=== PATIENT | female | born 1965 | race African-American/Black ===

== ENCOUNTER 2018-01-31 01:38 | Emergency (ER) | payer MEDICAID, SELFPAY ==
[2018-01-31 01:39] VITALS: BP 132/110; PULSE 87; RESP 20; TEMP 36.1; O2SAT 100; BMI 31.0
--- NOTE | 2018-01-31 02:31 | RAD_ITS ---
STUDY: X-RAY CHEST REASON FOR EXAM: Female, 52 years old. Cough for 4 weeks. TECHNIQUE: PA and lateral views of the chest. COMPARISON: 04/14/2017. FINDINGS: The lungs are clear and expanded. There is no demonstrated pleural abnormality. Normal size heart. Normal mediastinum and matthieu. Normal visualized pulmonary arteries. Normal visualized aortic arch and descending thoracic aorta. There are diffuse degenerative changes of the visualized thoracic spine. Normal visualized ribs, clavicles, and shoulders. There is no demonstrated abnormality of the visualized soft tissue structures of the upper abdomen. RAD/Chest PA and Lateral IMPRESSION: No active pulmonary disease. Electronically Signed: Phuc Mendes MD at 3:31 EDT Tel , Service support ,
--- NOTE | 2018-01-31 03:37 | ED.VISSUMM ---
- ER Visit Summary Date of Service: 01/31/18 Chief Complaint: Multiple complaints History of Present Illness: The patient is a 52 F who presents with about 1 month of sore throat earache or sinus pressure nasal congestion chest congestion cough and green sputum. She has been on 2 rounds of antibiotics without improvement. She does have a history of asthma. She is not a smoker. She denies chest pain or shortness of breath. No fevers vomiting or diarrhea. Physical Examination: Afebrile vitals notable for blood pressure 132/110 otherwise normal TMs are clear No focal sinus tenderness to percussion Oropharynx is clear airway patent uvula midline Heart regular rate and rhythm Lungs are clear without rales rhonchi or wheezes Abdomen soft Test Results: Chest x-ray shows no active disease Emergency Department Course and Treatment: Patient has no evidence of pneumonia. Given lack of improvement with 2 rounds of antibiotics I feel this is unlikely to be a bacterial infection. We will try a course of steroid. She was advised to follow-up with her primary care physician. She understands return for new or worsening symptoms. She was discharged. Treatment Plan: [] Disposition: Discharge Impression: Bronchitis This note was generated with [employer] dictation software. It may contain incorrect words, spelling, and punctuation that were not noted in review of the chart prior to signing ED Disposition - Plan for ED Patient: Chief Complaint: Cough Referrals: Jese Zheng DO [Primary Care Provider] -
--- NOTE | 2018-01-31 03:39 | ED.DEP ---
ED Disposition - Plan for ED Patient: Chief Complaint: Cough Instructions: Acute Bronchitis Prescriptions: Prednisone [Deltasone] 60 mg PO DAILY #15 tab Referrals: Jese Zheng DO [Primary Care Provider] -
[2018-01-31 03:49] VITALS: BP 120/86; PULSE 83; RESP 18; O2SAT 96
== END 2018-01-31 03:50 | disposition home or self-care (01) ==
PROVIDERS: Emergency Provider Emergency Medicine; Family Provider Student in an Organized Health Care Education/Training Program; PCP Student in an Organized Health Care Education/Training Program
DX: J40 Bronchitis, not specified as acute or chronic (principal)
CPT/HCPCS: 71046; 99283

== ENCOUNTER 2018-07-27 10:58 | Emergency (ER) | payer MEDICAID, SELFPAY ==
[2018-07-27 10:59] VITALS: BP 159/91; PULSE 108; RESP 17; TEMP 36.7; O2SAT 98; BMI 28.1
--- NOTE | 2018-07-27 11:18 | CT_ITS ---
STUDY: CT ABDOMEN AND PELVIS WITH CONTRAST REASON FOR EXAM: Female, 52 years old. Abdominal pain started yesterday RADIATION DOSAGE (If Supplied By Facility): CTDIvol = ( 23.23 ) mGy, DLP = ( 1278.08 ) mGycm TECHNIQUE: Transaxial images were obtained from the dome of the diaphragm to the symphysis pubis without oral contrast. 100 ml of Isovue 300 contrast was administered. Sagittal and coronal images were reconstructed. Individualized dose optimization techniques were used for this CT. COMPARISON: None. FINDINGS: The visualized lung bases are unremarkable. The visualized portions of the heart are within normal limits. Normal liver. Normal gallbladder and extrahepatic biliary system. Normal spleen. Normal pancreas. Normal bilateral adrenal glands. Slight amount of perinephric stranding adjacent to the right kidney with less distinct cortical medullary junction as compared to the left. No hydronephrosis. Normal left kidney. Normal visualized stomach. No small bowel wall thickening identified. Surgical anastomosis of bowel are identified in the lower central abdomen. Close approximation of small bowel to the anterior abdominal wall suggestive of adhesions but no significant bowel dilation. No colon wall thickening. There is non-visualization of the appendix. There is diffuse atherosclerotic calcification of the abdominal aorta, without a demonstrated aneurysm. Normal inferior vena cava. Normal retroperitoneum. Normal urinary bladder. No pelvic free fluid. Uterus is surgically absent. Normal abdominal wall. There are diffuse degenerative changes of the visualized lumbar spine. Canal narrowing of the mid to lower lumbar spine noted. CT/Abdomen/Pelvis WITH Contrast IMPRESSION: 1. Mild inflammatory changes involving the right kidney (new since prior study) suggestive of pyelonephritis. Correlation with urinalysis is suggested. No hydronephrosis. 2. Interval partial small bowel resection. No bowel wall thickening or obstruction identified. Electronically Signed: Cecil Moralez MD at 13:48 EST , Service support ,
[2018-07-27] MEDS: Ondansetron 4 MG/2 ML Vial IV (11:38)
[2018-07-27] MEDS: 0.9% Normal Saline 1,000 ML 125 ML IV (11:39)
[2018-07-27] MEDS: Morphine 4 MG/ML Syringe IV (11:39)
[2018-07-27 11:54] LABS: Absolute Lymphocyte Count 2.61 X10^3/ul (0.83-4.51); Absolute Neutrophil Count 3.7 X10^3/uL (2.0-7.7); Basophil# 0.02 X10^3/uL; Basophil% 0.3 % (0-1); Eosinophil# 0.13 X10^3/uL; Eosinophils% 1.9 % (0-5); Hematocrit 37.9 % (37-47); Hemoglobin 12.8 g/dl (12.0-15.0); Lymphocyte # 2.61 X10^3/ul (4.0); Lymphocyte % 38.5 % (19-41); Mean Corp Hgb Conc 33.8 g/gl (32-36); Mean Corpuscular Hgb 29.4 pg (27.0-32.0); Mean Corpuscular Volume 86.9 fL (81-99); Mean Platelet Vol. 8.9 fl (6.2-12.0); Monocyte# 0.34 X10^3/uL; Neutrophil # 3.66 X10^3/uL (2.7-7.7); Platelet Count 400 K/mm3 (150-450); RBC Distribution Width CV 12.6 % (11.6-14.6); RBC Distribution Width SD 40.2 fl (35.1-43.9); Red Blood Count 4.36 M/mm3 (4.2-5.4); White Blood Count 6.8 K/mm3 (4.4-11.0)
[2018-07-27 11:56] LABS: POSITIVE COUNT NO; POSITIVE DIFFERENTIAL NO; POSITIVE MORPHOLOGY NO
[2018-07-27 12:14] LABS: ALB/GLOB Ratio 0.8 RATIO (0.9-2.4); AST(SGOT) 6 U/L (15-37); Alanine Aminotransfer ALT/SGPT 17 U/L (13-56); Albumin, Serum 3.4 g/dL (3.2-5.0); Alkaline Phosphatase 97 U/L (45-117); Anion Gap 8 (5-15); BUN 11 mg/dL (7-18); BUN/Creat Ratio 15.6 RATIO (10-20); Calcium,Total 8.9 mg/dL (8.5-10.1); Chloride 101 mmol/L (98-107); Creatinine, Serum 0.71 mg/dL (0.55-1.02); EST Glomerular Filtration Rate 92 mL/min (>60); Est Glom Filt Rate - Afr Amer 111 mL/min (>60); Estimated Creatinine Clearance 92.44 ml/min; Globulin 4.2 g/dL (2.2-4.2); Glucose 533 mg/dL (74-106); Potassium 4.2 mmol/L (3.5-5.1); Protein, Total 7.6 g/dL (6.4-8.2); Sodium Level 134 mmol/L (136-145)
[2018-07-27 12:16] LABS: Lactic Acid 1.4 mmol/L (0.4-2.0)
[2018-07-27 12:30] LABS: Bacteria 0 SEEN /hpf (None Seen); Mucous, Urine 0 SEEN /hpf (<or=2+); Red Blood Cells-Urine 0 SEEN /hpf (0-5); Squamous Epithelial Cells - UA 0 SEEN /hpf (5-10)
[2018-07-27 12:48] LABS: Color, Urine Straw (Yellow); Glucose, Dipstick 1000 mg/dl (Normal); Ketone-Dipstick Negative (Negative); Leukocyte Esterase-Dipstick 25 /ul (Negative); Nitrite-Dipstick Negative (Negative); Occult Blood-Urine Negative /ul (Negative); Protein-Dipstick Negative (Negative); Urine Bilirubin Dipstick Negative (Negative); Urine Clarity Clear (Clear); Urine Urobilinogen Normal (Normal); Urine pH 6.5 (5.0 - 8.0)
[2018-07-27] MEDS: HYDROmorphone 1 MG/ML Syringe IV (12:53)
[2018-07-27] MEDS: Insulin Lispro 100 UNIT/ML INSULN.PEN 10 UNIT SC (12:54)
[2018-07-27 12:59] LABS: White Blood Cells 0-5 SEEN /hpf (0-5)
--- NOTE | 2018-07-27 14:06 | EKG12_ITS ---
Test Reason : CHEST PAIN Blood Pressure : / mmHG Vent. Rate : 087 BPM Atrial Rate : 087 BPM P-R Int : 148 ms QRS Dur : 084 ms QT Int : 370 ms P-R-T Axes : 059 018 025 degrees QTc Int : 445 ms Normal sinus rhythm Normal ECG Confirmed by DIANELYS DELACRUZ, FAITH ([id number]), marketing editor LAURA HAGEN ([id number]) on 07/29/2018 9:39:28 AM Referred By: MIKKI Confirmed By:FAITH IVORY MD
[2018-07-27 14:21] LABS: Bedside Glucose 328 mg/dL (70-110)
--- NOTE | 2018-07-27 14:32 | ED.DCSUM_ITS ---
- ER Visit Summary Date of Service: 07/27/18 Chief Complaint: [Abdominal pain] History of Present Illness: The patient is a 52 F [presents to the emergency department with complaint of abdominal pain that started 4 days ago. Patient had intermittent nausea and vomiting for a week off and on. Patient states that she is concerned because she has a history of small bowel obstructions. She denies any blood in her stool or black tarry stools. Patient states that she was treated for a UTI a week ago with Macrobid and has no urinary symptoms. Patient's last bowel movement was 4 5 days ago. Patient states she had a hard stool for 5 days ago and then took some MiraLAX and ended up having small soft stool. Patient has history of asthma, diabetes, hypertension, history of hysterectomy, and colostomy with reversal. Patient had hernia repairs and fistula repair.] Physical Examination: [HEENT-PERRLA, EOMI. Cranial nerves II through XII grossly intact. TMs clear. Mucous membranes moist. No adenopathy. Cardiovascular-regular rate and rhythm without murmur or ectopy Lungs-clear to auscultation, chest wall stable without crepitus or subcu emphysema Abdomen-normoactive bowel sounds, soft. Patient has tenderness palpation mostly to the right lower quadrant with some guarding. There is no rebound, rigidity, or perineal signs. No significant distention noted. Extremities-intact ?4, normal range of motion, normal pulses, atraumatic] Test Results: CBC with differential obtained showing a 6.8, hemoglobin 12.8, hematocrit 38, platelets 400. Chemistries unremarkable. Glucose was 533. Lactate was normal at 1.4. LFTs were normal. Urinalysis was normal. CT scan of the abdomen pelvis with IV and p.o. contrast showed some mild inflammatory changes around the right kidney possibly representing pyelonephritis. There was no evidence of bowel obstruction. [] Emergency Department Course and Treatment: [Patient was made given morphine and Zofran initially and then given a milligram of Dilaudid. Just prior to discharge interview patient started complaining of some midsternal chest discomfort that she described as sharp and stabbing. Patient states that she is had this for at least 3 weeks and it just lasted a few minutes and then resolves. Patient had a EKG obtained that showed a sinus rhythm with a ventricular rate of 87 bpm with no acute ST segment changes. While in the department patient had her hyperglycemia treated with 10 units of regular insulin and her repeat blood sugar came down to 328 from 533.] Treatment Plan: [Patient will be discharged home with prescription for Zofran as well as [place] for pain. Patient also advised to follow-up with primary care physician within next 3-5 days. Patient advised to monitor blood sugars and advised to be compliant with her diabetic medications.] Disposition: [Discharged home in stable condition] Impression: [Abdominal pain-etiology uncertain Hyperglycemia Atypical chest pain] This note was generated with [employer] dictation software. It may contain incorrect words, spelling, and punctuation that were not noted in review of the chart prior to signing ED Disposition - Plan for ED Patient: Chief Complaint: Abd Pain Referrals: Jese Zheng DO [Primary Care Provider] -
--- NOTE | 2018-07-27 14:32 | ED.DEP ---
ED Disposition - Plan for ED Patient: Chief Complaint: Abd Pain Instructions: ED Abdominal Pain Unkn Cause, ED Hyperglycemia Diabetic, ED Chest Pain Atypical Unkn Cause Prescriptions: Hydrocodone Bitart/Apap 5-325 [[place] 5MG-325MG] 1 tab PO Q4H PRN PRN 2 Days #10 tab PRN Reason: Pain Ondansetron [Zofran Odt] 4 mg PO Q8H PRN PRN #10 tab PRN Reason: Nausea Referrals: Jese Zheng DO [Primary Care Provider] - 3-5 Days
[2018-07-27 15:25] VITALS: BP 128/81; PULSE 79; RESP 15; O2SAT 98
== END 2018-07-27 15:29 | disposition home or self-care (01) ==
PROVIDERS: Emergency Provider Emergency Medicine; Family Provider Student in an Organized Health Care Education/Training Program; PCP Student in an Organized Health Care Education/Training Program
DX: R10.31 Right lower quadrant pain (principal); R07.89 Other chest pain; E11.65 Type 2 diabetes mellitus with hyperglycemia; Z87.440 Personal history of urinary (tract) infections; Z72.0 Tobacco use
CPT/HCPCS: 36415; 74177; 80053; 81001; 82962; 83605; 85025; 93005; 96361; 96374; 96375; 99283; J7030; Q9967; A4216; J2405

== ENCOUNTER 2018-12-21 10:52 | Emergency (ER) | payer MEDICAID, SELFPAY ==
[2018-12-21 10:52] VITALS: BP 143/68; PULSE 121; RESP 18; TEMP 36.6; O2SAT 95; BMI 30.4
--- NOTE | 2018-12-21 11:07 | ED.VIS.GEN ---
History of Present Illness Chief Complaint: Headache Detail of Chief Complaint: Global headache, myalgias arthralgias and documented temperature of 104.0 ? Informant: Patient Onset: Days - Onset Saturday 4 days ago Context: Sudden Onset Timing: Continuous Quality: Pain with aches Location: Global headache and myalgias arthralgias Current Severity: Moderate Maximum Severity: Severe Worsened by: Movement Relieved by: Nothing Associated Symptoms: Fever to 104.0 ?F and viral-like symptoms Narrative: Patient is a middle-aged woman who presents with global headache, light sensitivity, myalgias arthralgias and documented temperature to 104.0 ?F. Onset of illness Saturday. No family members are ill. Mild nasal congestion. No rhinorrhea or postnasal drainage. No decreased hearing, ringing in her ears or ear pain. She denies cough, shortness of breath or dyspnea on exertion. She does report nausea vomiting diarrhea. Denies dysuria, frequency, urgency hematuria. She denies joint swelling. She denies rash. Prior similar symptoms: No Recent Illness/Hospitalization: No - Past Medical History (1) Asthma Status: Chronic (2) DM2 (diabetes mellitus, type 2) Status: Chronic (3) HTN (hypertension) Status: Chronic (4) Obesity (BMI 30-39.9) Status: Chronic (5) Tobacco dependence Status: Chronic Past Medical History - Allergies and Home Meds Allergies/Adverse Reactions: Allergies tramadol Allergy (Verified 12/21/18 10:56) Hives albuterol sulfate [From Proventil HFA] Adverse Reaction (Verified 12/21/18 10:56) Vomiting ammonium lactate [From Lac-Hydrin] Adverse Reaction (Verified 12/21/18 10:56) Other phentermine HCl [From Adipex-P] Adverse Reaction (Verified 12/21/18 10:56) Chest tightness Primary Care Physician: Jese Zheng DO [Primary Care Provider] - Prior records reviewed: Yes Surgical History: noncontributory, - - BL TKR, Hysterectomy, L oopherectomy, Bladder sling, 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 Lives: With Family Smoking Status: Current every day smoker Alcohol: None - Family History Maternal Family History: Reports: Cancer, Diabetes, Hypertension Paternal Family History: Reports: No pertinent history Review of Systems General: Reports: Chills, Fever, Malaise. Denies: Subjective, Sweats, Weight loss Eyes: Reports: - - Reports sensitivity to light. Denies: Visual changes - bilaterally, Blurred Vision - bilaterally, Diplopia ENT: Denies: Bilateral ear pain, Rhinorrhea, Sore throat Cardiovascular: Denies: Chest pain, Palpitations Respiratory: Denies: Dyspnea, Cough, Dyspnea on exertion Gastrointestinal: Reports: Nausea. Denies: Abdominal pain, Vomiting, Diarrhea, Constipation, Melena, Hematochezia, -, - Genitourinary: Denies: Dysuria, Hematuria, Frequency Musculoskeletal: Reports: Myalgias, Arthralgias, Neck pain, Back pain. Denies: Swelling, Extremity Pain Skin: Denies: Rash, Wounds Neurological: Reports: Headache. Denies: Weakness, Parasthesia, Numbness, -, - Endocrine: Denies: Polyuria, Polydipsia Hematologic: Denies: Easy bruising, Easy bleeding Allergy: Denies: Swelling of the mouth, Swelling of the tongue Physical Exam Vital Signs/Narrative: Vital Signs Temp Pulse Resp BP Pulse Ox 12/21/18 10:52 97.9 F 121 H 18 143/68 H 95 Inital Vital Signs reviewed: Yes General: Well nourished, Well developed, No Acute Distress, - - Feels warmer than document temperature. She informed that she had a TA temperature. Head: Normocephalic, Atraumatic Eyes: Perrl, EOMI, - - Scopic exam reveals normal cup-to-disc ratio no papilledema.. Negative for: Pale conjunctiva, Scleral icterus ENT: No rhinorrhea, TM's clear, Dry mucous membranes Neck: Supple, Nontender, No lymphadenopathy, No JVD Cardiovascular: Regular rhythm, No murmurs, Normal S1, Normal S2, Tachycardia Respiratory: No distress, CTA bilaterally, Chest nontender Abdomen: Soft, Nontender, Nondistended, Normal bowel sounds, No masses Back: Normal Inspection. Negative for: CVA tenderness, Spinal tenderness Extremities: No edema, Tenderness - Tenderness upper and lower extremities. Negative for: Edema, Calf Tenderness Skin: Normal color, No rash, No Trauma. Negative for: Cyanosis, Diaphoresis, Jaundice Neurological: Alert, Oriented x3, Cranial nerves II-XII grossly intact, Normal Strength, Normal Sensation, Normal DTR Psychological: Normal affect, Normal Mood Diagnostic/Tx/Re-eval - Medical Decision Making Patient's history and physical consistent with viral infection. Suspect headache is viral headache. Because she reports temperature to 104.0 degrees and feels warm will have nurse repeat temperature. Because she is diabetic and p.o. intake has been altered will obtain electric panel to assess sodium potassium CO2 as well as renal function. CBC was obtained. If markedly elevated may consider CT sinuses since she has tenderness over the right and left frontal sinus. There was no tenderness over the ethmoid or maxillary sinuses. Patient was informed of test results. She was informed that her blood sugar is 280. I went in the room she was talking with family. She was smiling. This is an improvement. She states she still has a headache. ED Disposition - Plan for ED Patient: Disposition: Home or Assisted Living Diagnosis: Viral cephalgia, Systemic viral illness, Hyperglycemia due to type 2 diabetes mellitus Instructions: ED Viral Syndrome, ED Hyperglycemia Diabetic Referrals: Jese Zheng DO [Primary Care Provider] - 1 Week if not improving
[2018-12-21 11:22] VITALS: TEMP 38.1
[2018-12-21] MEDS: Acetaminophen 325 MG Tablet 650 MG PO (11:25)
[2018-12-21] MEDS: Ondansetron 4 MG/2 ML Vial IV (11:25)
[2018-12-21 11:26] VITALS: TEMP 38.1
[2018-12-21] MEDS: 0.9% Normal Saline 1,000 ML 1000 ML IV (11:26)
[2018-12-21 11:29] LABS: Absolute Lymphocyte Count 1.44 X10^3/ul (0.83-4.51); Absolute Neutrophil Count 7.4 X10^3/uL (2.0-7.7); Basophil# 0.02 X10^3/uL; Basophil% 0.2 % (0-1); Differential Indicated SCAN CRITERIA MET; Eosinophil# 0.02 X10^3/uL; Eosinophils% 0.2 % (0-5); Hematocrit 35.5 % (37-47); Hemoglobin 12.3 g/dl (12.0-15.0); Lymphocyte # 1.44 X10^3/ul (4.0); Mean Corp Hgb Conc 34.6 g/gl (32-36); Mean Corpuscular Hgb 30.9 pg (27.0-32.0); Mean Corpuscular Volume 89.2 fL (81-99); Mean Platelet Vol. 9.9 fl (6.2-12.0); Monocyte# 1.36 X10^3/uL; Monocyte% 13.3 % (0-10); Neutrophil # 7.37 X10^3/uL (2.7-7.7); Neutrophil % 71.9 % (47-70); POSITIVE COUNT NO; POSITIVE DIFFERENTIAL NO; POSITIVE MORPHOLOGY YES; Platelet Count 195 K/mm3 (150-450); RBC Distribution Width SD 38.4 fl (35.1-43.9); Red Blood Count 3.98 M/mm3 (4.2-5.4); White Blood Count 10.3 K/mm3 (4.4-11.0)
[2018-12-21 11:38] LABS: Anion Gap 10 (5-15); BUN 9 mg/dL (7-18); BUN/Creat Ratio 13.4 RATIO (10-20); Chloride 101 mmol/L (98-107); Creatinine, Serum 0.67 mg/dL (0.55-1.02); EST Glomerular Filtration Rate 97 mL/min (>60); Est Glom Filt Rate - Afr Amer 118 mL/min (>60); Estimated Creatinine Clearance 96.83 ml/min; Glucose 280 mg/dL (74-106); Potassium 3.4 mmol/L (3.5-5.1); Sodium Level 135 mmol/L (136-145)
[2018-12-21 11:50] LABS: Differential Comment SCANNED
[2018-12-21 12:52] VITALS: BP 140/80; PULSE 86; RESP 18; O2SAT 95
== END 2018-12-21 12:53 | disposition home or self-care (01) ==
PROVIDERS: Emergency Provider Emergency Medicine; Family Provider Student in an Organized Health Care Education/Training Program; PCP Student in an Organized Health Care Education/Training Program
DX: R51 Headache (principal); E11.65 Type 2 diabetes mellitus with hyperglycemia; B34.9 Viral infection, unspecified; J45.909 Unspecified asthma, uncomplicated; I10 Essential (primary) hypertension; E66.9 Obesity, unspecified; F17.200 Nicotine dependence, unspecified, uncomplicated
CPT/HCPCS: 80048; 85025; 96361; 96374; 99283; J7030; A4216; J2405

== ENCOUNTER 2018-12-25 15:18 | Emergency (ER) | payer MEDICAID, SELFPAY ==
[2018-12-25 15:18] VITALS: BP 147/85; PULSE 105; RESP 18; TEMP 36.7; O2SAT 97; BMI 29.5
--- NOTE | 2018-12-25 15:55 | CT_ITS ---
HISTORY: Right lower quadrant pain, vomiting COMPARISON: 07/27/2018 TECHNIQUE: Helical CT axial images from the lung bases to the pubic symphysis with 100 ml of Isovue 300 intravenous contrast. Multiplanar reconstruction. Oral contrast was administered. A radiation dose optimization technique was used for this scan. # of images incl. paperwork: [id number] FINDINGS: LUNG BASES: No basilar consolidation or effusions. Partially seen right middle lobe sub-5 mm nodular density, although not imaged in its entirety and this exam is likely unchanged dating back to April 07, 2017, LIVER: Hepatomegaly with moderate diffuse decreased attenuation. No focal masses. HEPATOBILIARY: Normal-appearing gallbladder. No intra- or extrahepatic ductal dilatation. SPLEEN: Normal size. PANCREAS: Normal size and contour. Sparse ADRENAL GLANDS: Normal size. No adrenal masses. KIDNEYS: No obstructing calculi or hydronephrosis bilaterally. Moderate right perinephric fat stranding and areas of mildly diminished enhancement of the mid and lower pole of the right kidney in the pattern which can be seen with pyelonephritis. No obstructing calculi. Left kidney has a normal appearance. No significant cysts are present. BOWEL AND MESENTERY: Prior anterior lower abdominal bowel surgery. No small or large bowel dilatation. No focal bowel wall thickening. No colonic diverticulosis. Normal appendix. No abnormal mesenteric lymphadenopathy. No free fluid or pneumoperitoneum. RETROPERITONEUM:Normal caliber abdominal aorta without aneurysm. Mild ASVD. No abnormal retroperitoneal lymphadenopathy. PELVIS:Urinary bladder is unremarkable.Status post hysterectomy. ABDOMINAL WALL: Prior midline abdominal laparotomy. The abdominal wall is intact. BONES: No suspicious osseous lytic or blastic lesions seen. CT/Abdomen/Pelvis WITH Contrast IMPRESSION: 1. Moderate right perinephric fat stranding and findings suggestive of pyelonephritis. Correlate with urinalysis. 2. No obstructive uropathy. 3. Normal appendix. 4. Hepatomegaly with steatosis. Individualized dose optimization techniques were used for this CT. at 1930 Reported and signed by: Anjel Callaway MD Electronically Signed: Anjel Callaway MD at 19:29 EDT Tel , Service support ,
--- NOTE | 2018-12-25 16:09 | ED.DCSUM_ITS ---
History of Present Illness Chief Complaint: Abd Pain Informant: Patient - Abdominal Pain/Flank Pain Onset: Days - 8 Context: Gradual Onset Timing: Waxes and wanes Quality: Aching Location: Epigastric, RLQ Current Severity: Severe Maximum Severity: Severe Worsened by: Movement - Nausea/Vomiting/Emesis GI Symptom: Nausea, Vomiting Onset: Weeks - 1 Severity: Severe - worse/triggered by eating anything - Diarrhea/Melena/Hematochezia GI Symptom: Negative for: Diarrhea, Melena, Hematochezia Associated Symptoms: Negative for: Dysuria, Frequency, Hematuria, Urgency Narrative: Patient has had multiple abdominal surgeries, including bowel obstructions and rectovaginal fistulas, which she needed a diverting colostomy for and has since had a reversal. She has been having pain for the last 8 days, she was not having much in the way of bowel movements in the beginning but then she took some laxatives and had a bowel movement 2 or 3 days ago that was small and loose and she temporarily felt better but the pain is been relentless, colicky since then. Radiates into her right low back. No urinary symptoms, fevers, or hematemesis. She states I am vomiting bile and describes it as yellow nonbloody fluid. No coffee-ground emesis. - Past Medical History (1) Small bowel obstruction Status: Chronic (2) DM2 (diabetes mellitus, type 2) Status: Chronic (3) HTN (hypertension) Status: Chronic Past Medical History - Allergies and Home Meds Allergies/Adverse Reactions: Allergies tramadol Allergy (Verified 12/25/18 15:21) Hives albuterol sulfate [From Proventil HFA] Adverse Reaction (Verified 12/25/18 15:21) Vomiting ammonium lactate [From Lac-Hydrin] Adverse Reaction (Verified 12/25/18 15:21) Other phentermine HCl [From Adipex-P] Adverse Reaction (Verified 12/25/18 15:21) Chest tightness Primary Care Physician: Jese Zheng DO [Primary Care Provider] - 3-5 Days if not improving Surgical History: herniorrhaphy, hysterectomy, - - BL TKR, Hysterectomy, L oopherectomy, Bladder sling, 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 Lives: With Family Smoking Status: Current every day smoker - Family History Maternal Family History: Reports: Cancer, Diabetes, Hypertension Paternal Family History: Reports: No pertinent history Review of Systems General: Reports: Malaise. Denies: Chills, Fever, Sweats Eyes: Denies: Visual changes - bilaterally, Diplopia ENT: Denies: Rhinorrhea, Sore throat Cardiovascular: Denies: Chest pain, Palpitations Respiratory: Denies: Dyspnea, Cough, Dyspnea on exertion Gastrointestinal: Reports: Abdominal pain, Nausea, Vomiting. Denies: Diarrhea, Melena, Hematochezia Genitourinary: Reports: - - no abn vaginal discharge. Denies: Dysuria, Hematuria, Frequency Musculoskeletal: Reports: Back pain. Denies: Extremity Pain Skin: Denies: Rash, Abscess, Wounds Neurological: Denies: Headache, Weakness, Numbness Physical Exam Vital Signs/Narrative: Vital Signs Temp Pulse Resp BP Pulse Ox 12/25/18 15:18 98.1 F 105 H 18 147/85 H 97 Inital Vital Signs reviewed: Yes General: Well nourished, Well developed, Obese, Acute Distress - intermittently, in abd pain Head: Normocephalic, Atraumatic Eyes: Perrl, EOMI ENT: Moist mucous membranes, No rhinorrhea Neck: Supple, Nontender Cardiovascular: Regular rate, Regular rhythm, No murmurs Respiratory: No distress, CTA bilaterally, Chest nontender Abdomen: Soft, Nondistended, No masses, Tender - at colostomy scar, just right of midline lower abd/suprapubic, and epigastric; no palpable incarcerated incisional hernias, Guarding, Hypoactive bowel sounds. Negative for: Rebound tenderness, Pulsatile mass Back: Nontender, Normal Inspection. Negative for: CVA tenderness Extremities: Nontender, No edema Skin: Normal color, No rash, No Trauma Neurological: Alert, Oriented x3, Cranial nerves II-XII grossly intact, Normal Strength, Normal Sensation, Normal Gait Psychological: Normal affect, Normal Mood Diagnostic/Tx/Re-eval Impressions Abdomen/Pelvis CT 12/25/18 15:55 IMPRESSION: 1. Moderate right perinephric fat stranding and findings suggestive of pyelonephritis. Correlate with urinalysis. 2. No obstructive uropathy. 3. Normal appendix. 4. Hepatomegaly with steatosis. Individualized dose optimization techniques were used for this CT. at 1930 Reported and signed by: Anjel Callaway MD Electronically Signed: Anjel Callaway MD at 19:29 EDT Tel , Service support , 12/25/18 15:55 Abdomen/Pelvis WITH Contrast [CT] Stat Laboratory Results 12/25/18 12/25/18 12/25/18 16:10 16:10 18:35 WBC 11.5 H RBC 3.71 L Hgb 11.5 L Hct 32.5 L MCV 87.6 MCH 31.0 MCHC 35.4 RDW 12.2 RDW Differential 39.4 Plt Count 290 MPV 9.0 Immature Gran % (Auto) 0.500 Neut % (Auto) 60.7 Lymph % (Auto) 25.5 [place] % (Auto) 10.3 H Eos % (Auto) 2.1 Baso % (Auto) 0.9 Absolute Neuts (auto) 7.0 Absolute Lymphs (auto) 2.92 Total Counted Not Reportable Atypical Lymphocytes 1+ Platelet Estimate ADEQUATE RBC Morphology NORM C+C Sodium 137 Potassium 3.2 L Chloride 101 Carbon Dioxide 27.0 Anion Gap 9 BUN 10 Creatinine 0.64 Estim Creat Clear Calc 101.37 Est GFR (MDRD) Af Amer 124 Est GFR (MDRD) Non-Af 103 BUN/Creatinine Ratio 15.6 Glucose 295 H Calcium 9.2 Total Bilirubin 0.80 AST 25 ALT 55 Alkaline Phosphatase 163 H Total Protein 8.3 H Albumin 2.9 L Globulin 5.4 H Albumin/Globulin Ratio 0.5 L Lipase 42 L Urine Color Yellow Urine Clarity Sl. Cloudy Urine pH 6.5 Ur Specific [place] 1.010 Urine Protein 30 H Urine Glucose (UA) 250 H Urine Ketones 15 H Urine Occult Blood 150 H Urine Nitrite Positive H Urine Bilirubin Negative Urine Urobilinogen Normal Ur Leukocyte Esterase 500 H Urine RBC 0 SEEN Urine WBC 0-5 SEEN Ur Squamous Epith Cells 0-5 SEEN Urine Bacteria 1+ Urine Mucus 0 SEEN - Medical Decision Making Pain is well controlled and her nausea was as well after treatment with fluids, morphine, Zofran. CT is consistent with pyelonephritis, and her urinalysis is as well. She is feeling better and prefers to be home with antibiotics, she was given a dose of IV Rocephin and discharged on Cipro and analgesics with Zofran. She will follow-up as an outpatient or return if worse. She is comfortable with that plan. ED Disposition - Plan for ED Patient: Disposition: Home or Assisted Living Diagnosis: Pyelonephritis, Constipation Instructions: Discharge Instructions for Pyelonephritis, ED Constipation Prescriptions: proMETHazine tablet [Phenergan] 25 mg PO Q6H PRN PRN #10 tablet PRN Reason: Nausea Ciprofloxacin [Cipro] 500 mg PO BID #20 tablet Referrals: Jese Zheng, [Primary Care Provider] - 3-5 Days if not improving
[2018-12-25 16:18] LABS: Absolute Lymphocyte Count 2.92 X10^3/ul (0.83-4.51); Basophil% 0.9 % (0-1); Differential Indicated SCAN CRITERIA MET; Eosinophil# 0.24 X10^3/uL; Eosinophils% 2.1 % (0-5); Hematocrit 32.5 % (37-47); Hemoglobin 11.5 g/dl (12.0-15.0); Lymphocyte # 2.92 X10^3/ul (4.0); Lymphocyte % 25.5 % (19-41); Mean Corp Hgb Conc 35.4 g/gl (32-36); Mean Corpuscular Volume 87.6 fL (81-99); Monocyte# 1.18 X10^3/uL; Monocyte% 10.3 % (0-10); Neutrophil # 6.97 X10^3/uL (2.7-7.7); Neutrophil % 60.7 % (47-70); POSITIVE COUNT NO; POSITIVE DIFFERENTIAL NO; POSITIVE MORPHOLOGY YES; Platelet Count 290 K/mm3 (150-450); RBC Distribution Width CV 12.2 % (11.6-14.6); RBC Distribution Width SD 39.4 fl (35.1-43.9); Red Blood Count 3.71 M/mm3 (4.2-5.4); White Blood Count 11.5 K/mm3 (4.4-11.0)
[2018-12-25 16:32] LABS: ALB/GLOB Ratio 0.5 RATIO (0.9-2.4); AST(SGOT) 25 U/L (15-37); Alanine Aminotransfer ALT/SGPT 55 U/L (13-56); Albumin, Serum 2.9 g/dL (3.2-5.0); Alkaline Phosphatase 163 U/L (45-117); Anion Gap 9 (5-15); BUN 10 mg/dL (7-18); BUN/Creat Ratio 15.6 RATIO (10-20); Calcium,Total 9.2 mg/dL (8.5-10.1); Chloride 101 mmol/L (98-107); Creatinine, Serum 0.64 mg/dL (0.55-1.02); EST Glomerular Filtration Rate 103 mL/min (>60); Est Glom Filt Rate - Afr Amer 124 mL/min (>60); Estimated Creatinine Clearance 101.37 ml/min; Globulin 5.4 g/dL (2.2-4.2); Glucose 295 mg/dL (74-106); Lipase 42 U/L (73-393); Potassium 3.2 mmol/L (3.5-5.1); Protein, Total 8.3 g/dL (6.4-8.2); Sodium Level 137 mmol/L (136-145)
[2018-12-25 16:41] LABS: Atypical Lymphocyte 1+ %; Platelet Estimate ADEQUATE (ADEQ); Red Cell Morphology NORM C+C NORMAL (NORM C&C)
[2018-12-25] MEDS: 0.9% Normal Saline 1,000 ML 1000 ML IV (16:41)
[2018-12-25] MEDS: Ondansetron 4 MG/2 ML Vial IV (16:41)
[2018-12-25] MEDS: Morphine 4 MG/ML Syringe IV (16:41)
[2018-12-25 18:47] LABS: Mucous, Urine 0 SEEN /hpf (<or=2+); Red Blood Cells-Urine 0 SEEN /hpf (0-5)
[2018-12-25 18:48] LABS: Color, Urine Yellow (Yellow); Glucose, Dipstick 250 mg/dl (Normal); Ketone-Dipstick 15 mg/dl (Negative); Leukocyte Esterase-Dipstick 500 /ul (Negative); Nitrite-Dipstick Positive (Negative); Occult Blood-Urine 150 /ul (Negative); Protein-Dipstick 30 mg/dl (Negative); Urine Bilirubin Dipstick Negative (Negative); Urine Clarity Sl. Cloudy (Clear); Urine Urobilinogen Normal (Normal); Urine pH 6.5 (5.0 - 8.0)
[2018-12-25 18:57] LABS: Squamous Epithelial Cells - UA 0-5 SEEN /hpf (5-10); White Blood Cells 0-5 SEEN /hpf (0-5)
[2018-12-25 18:58] LABS: Bacteria 1+ /hpf (None Seen)
[2018-12-25] MEDS: Ceftriaxone 1 GM/50 ML BAG IV (20:06)
[2018-12-25 20:46] VITALS: PULSE 84; RESP 17; O2SAT 97
== END 2018-12-25 20:52 | disposition home or self-care (01) ==
PROVIDERS: Emergency Provider Emergency Medicine; Family Provider Student in an Organized Health Care Education/Training Program; PCP Student in an Organized Health Care Education/Training Program
DX: N12 Tubulo-interstitial nephritis, not specified as acute or chronic (principal); K59.00 Constipation, unspecified; E11.9 Type 2 diabetes mellitus without complications; I10 Essential (primary) hypertension; F17.200 Nicotine dependence, unspecified, uncomplicated; E66.9 Obesity, unspecified; Z87.19 Personal history of other diseases of the digestive system; Z79.4 Long term (current) use of insulin; Z79.899 Other long term (current) drug therapy
CPT/HCPCS: 74177; 80053; 81001; 83690; 85025; 96361; 96365; 96375; 99283; J7030; Q9967; J2405

== ENCOUNTER 2019-01-13 11:10 | Emergency (ER) | payer MEDICAID, SELFPAY ==
[2019-01-13 11:11] VITALS: BP 140/84; PULSE 110; RESP 20; TEMP 36.6; O2SAT 99; BMI 30.2
--- NOTE | 2019-01-13 12:09 | CT_ITS ---
STUDY: CT ABDOMEN AND PELVIS WITHOUT CONTRAST REASON FOR EXAM: Female, 53 years old. Persistent flank pain for one month RADIATION DOSAGE (If Supplied By Facility): CTDIvol = ( 14.49 ) mGy, DLP = ( 638.41 ) mGycm TECHNIQUE: Transaxial images were obtained from the dome of the diaphragm to the symphysis pubis without oral contrast, and without intravenous contrast. Sagittal and coronal images were reconstructed. Individualized dose optimization techniques were used for this CT. COMPARISON: 12/25/2018 FINDINGS: The visualized lung bases are unremarkable. The visualized portions of the heart are within normal limits. Normal liver. Normal gallbladder and extrahepatic biliary system. Normal spleen. Normal pancreas. Normal bilateral adrenal glands. Persistent right nephromegaly (as compared to the left) with mild perinephric stranding. No focal fluid collection is seen. No hydronephrosis or urinary tract calcifications. Normal visualized stomach. Small bowel surgical anastomosis is identified in the anterior central abdomen. Normal colon. The appendix is visualized and appears normal. There is diffuse atherosclerotic calcification of the abdominal aorta, without a demonstrated aneurysm. Normal inferior vena cava. Normal retroperitoneum. Decompressed urinary bladder. There is atrophy of the uterus. Partially calcified injection granulomata of the right anterior abdominal wall is identified. Prior operative changes of the anterior abdominal wall. Degenerative changes of the lumbar spine with facet related spinal listhesis of L4-L5. CT/Abdomen/Pelvis without Cont IMPRESSION: 1. Right perinephric stranding suggesting pyelonephritis, overall similar since the prior study. No hydronephrosis. Electronically Signed: Cecil Moralez MD at 12:58 EDT , Service support ,
[2019-01-13] MEDS: 0.9% Normal Saline 1,000 ML 150 ML IV (12:18)
[2019-01-13] MEDS: HYDROmorphone 1 MG/ML Syringe 0.5 MG IV (12:19)
[2019-01-13] MEDS: Ondansetron 4 MG/2 ML Vial IV (12:19)
[2019-01-13 12:32] LABS: Mucous, Urine 0 SEEN /hpf (<or=2+); Squamous Epithelial Cells - UA 0 SEEN /hpf (5-10)
[2019-01-13 12:38] LABS: Absolute Lymphocyte Count 2.54 X10^3/ul (0.83-4.51); Absolute Neutrophil Count 7.4 X10^3/uL (2.0-7.7); Basophil# 0.02 X10^3/uL; Basophil% 0.2 % (0-1); Eosinophil# 0.05 X10^3/uL; Eosinophils% 0.4 % (0-5); Hematocrit 39.3 % (37-47); Hemoglobin 13.6 g/dl (12.0-15.0); Lymphocyte # 2.54 X10^3/ul (4.0); Lymphocyte % 22.4 % (19-41); Mean Corp Hgb Conc 34.6 g/gl (32-36); Mean Corpuscular Hgb 30.5 pg (27.0-32.0); Mean Corpuscular Volume 88.1 fL (81-99); Mean Platelet Vol. 10.4 fl (6.2-12.0); Monocyte# 1.38 X10^3/uL; Monocyte% 12.1 % (0-10); Neutrophil # 7.35 X10^3/uL (2.7-7.7); Neutrophil % 64.7 % (47-70); Platelet Count 216 K/mm3 (150-450); RBC Distribution Width CV 12.3 % (11.6-14.6); RBC Distribution Width SD 39.1 fl (35.1-43.9); Red Blood Count 4.46 M/mm3 (4.2-5.4); White Blood Count 11.4 K/mm3 (4.4-11.0)
[2019-01-13 12:40] LABS: Color, Urine Yellow (Yellow); Glucose, Dipstick 1000 mg/dl (Normal); Leukocyte Esterase-Dipstick 100 /ul (Negative); Nitrite-Dipstick Negative (Negative); Occult Blood-Urine 150 /ul (Negative); Protein-Dipstick 30 mg/dl (Negative); Urine Bilirubin Dipstick Negative (Negative); Urine Clarity Clear (Clear); Urine Urobilinogen Normal (Normal)
[2019-01-13 12:42] LABS: POSITIVE COUNT NO; POSITIVE DIFFERENTIAL NO; POSITIVE MORPHOLOGY NO
[2019-01-13 12:46] LABS: AST(SGOT) 7 U/L (15-37); Alanine Aminotransfer ALT/SGPT 14 U/L (13-56); Albumin, Serum 3.6 g/dL (3.2-5.0); Alkaline Phosphatase 113 U/L (45-117); Anion Gap 14 (5-15); BUN 7 mg/dL (7-18); BUN/Creat Ratio 8.8 RATIO (10-20); Bilirubin, Direct 0.38 mg/dL (0.00-0.30); Chloride 97 mmol/L (98-107); Creatinine, Serum 0.79 mg/dL (0.55-1.02); EST Glomerular Filtration Rate 80 mL/min (>60); Est Glom Filt Rate - Afr Amer 97 mL/min (>60); Estimated Creatinine Clearance 82.12 ml/min; Globulin 4.6 g/dL (2.2-4.2); Glucose 435 mg/dL (74-106); Lipase 50 U/L (73-393); Potassium 4.1 mmol/L (3.5-5.1); Protein, Total 8.2 g/dL (6.4-8.2); Sodium Level 135 mmol/L (136-145)
[2019-01-13 12:46] LABS: Ketone-Dipstick 150 mg/dl (Negative)
[2019-01-13 12:49] LABS: Bacteria RARE /hpf (None Seen); Red Blood Cells-Urine 0-5 SEEN /hpf (0-5); White Blood Cells 0-5 SEEN /hpf (0-5)
[2019-01-13 13:28] VITALS: BP 123/79; PULSE 97; RESP 15; O2SAT 98
--- NOTE | 2019-01-13 13:50 | US_ITS ---
STUDY: ABDOMINAL ULTRASOUND - RIGHT UPPER QUADRANT REASON FOR VISIT: Female, 53 years old. Abdominal pain TECHNIQUE: Ultrasound evaluation of the right upper quadrant was performed with real-time and static dubose-scale imaging. TECHNICAL QUALITY: Adequate. COMPARISON: CT from earlier today. FINDINGS: Liver: The liver measures 17 cm. There is normal echogenicity of the liver. The bile ducts are within normal limits. There is hepatic color flow. The direction of portal flow is hepatopetal. There is no demonstrated mass lesion. Gallbladder: Normal distended gallbladder. The gallbladder wall measures 1.8 mm. There is a negative sonographic Alvarez's sign. There is no pericholecystic fluid. There are no gallstones. Common Bile Duct (C.B.D.): The common bile duct measures 4 mm. Pancreas: There is normal echogenicity of the visualized pancreas. There is no demonstrated pancreatic mass or cyst. Right Kidney: There is hypertrophy of the right kidney. The right kidney measures 13.6 x 6.6 x 5.7 cm. Normal renal cortex. The right cortex measures 1.8 cm. There is no demonstrated renal mass or cyst. There is no right hydronephrosis. US/Gallbladder IMPRESSION: 1. No gallstones or acute cholecystitis. 2. Mild right nephromegaly but no hydronephrosis. Right kidney is better seen on CT from earlier today. Electronically Signed: Cecil Moralez MD at 15:08 EDT , Service support ,
--- NOTE | 2019-01-13 13:58 | ED.RN ---
PT IS SLEEP IN ROOM WITH NO S/S OF DISCOMFORT. AFTER WAKING PT SHE BEING TO GROAN AND HOLD HER SIDE. VITALS ARE NORMAL AND FAMILY AT BEDSIDE AT THIS TIME. WAITING FOR ULTRASOUND TO DO SCAN OF GALL BLADDER. Bren CARRANZA RN 1400
[2019-01-13] MEDS: 0.9% Normal Saline 1,000 ML 999 ML IV (15:00)
[2019-01-13 15:36] VITALS: BP 126/79; PULSE 104; RESP 15; O2SAT 95
--- NOTE | 2019-01-13 15:37 | ED.DCSUM_ITS ---
- ER Visit Summary Date of Service: 01/13/19 Chief Complaint: Abdominal pain, back pain History of Present Illness: The patient is a 53 F who states he had abdominal pain for the last month radiating to the right flank. She feels like food is not moving through her system. She vomits food that she ate several days ago. She was treated for pyelonephritis a couple weeks ago. She states her urine has not been rechecked to see if that has cleared. Past history is significant for diabetes, hypertension, high cholesterol, asthma. She has had multiple prior abdominal surgeries. Physical Examination: Vital signs significant only for heart rate of 110. Patient lying in bed no acute distress. She is anxious. Heart is regular rate and rhythm. Lung sounds are clear. Abdomen is soft with tenderness in epigastric region as well as the right lower quadrant. There is no guarding or rebound. Active bowel sounds are noted. She does have tenderness in the right CVA region. Test Results: CBC was a white count 11.4 with normal differential. Chemistry studies significant for glucose of 435. LFTs revealed total bili of 1.9 and a direct bili of 0.38. Lipase is normal. Urinalysis reveals 150 ketones with 1000 and glucose. No sign of acute infection. CT flank reveals right perinephric stranding suggesting pyelonephritis similar to prior study. There is no hydronephrosis. Right upper quadrant ultrasound reveals no gallstones or acute cholecystitis. Hypertrophy of the right kidney is noted. Emergency Department Course and Treatment: Patient is given Dilaudid, Zofran, and IV fluids. I spoke with patient's primary care physician, Dr. Zheng. She states that she has believed the patient has had gastroparesis for quite some time. She has talked to the patient about testing at the [facility] for this. We will start the patient on Reglan and Dr. Zheng will follow up on both the enlarged kidney as well as the gastroparesis issue. Treatment Plan: [] Disposition: Discharge Impression: 1. Abdominal pain 2. Hyperglycemia 3. Right kidney hypertrophy 4. Gastroparesis This note was generated with [employer] software. It may contain incorrect words, spelling, and punctuation that were not noted in review of the chart prior to signing ED Disposition - Plan for ED Patient: Disposition: Home or Assisted Living Instructions: ED Diabetic Gastroparesis Prescriptions: Metoclopramide [Reglan] 10 mg PO 4X/DAY PRN #20 tablet PRN Reason: Headache Referrals: Jese Zheng DO [Primary Care Provider] - 1 Week
[2019-01-13 15:49] VITALS: BP 126/79; PULSE 102; RESP 17; O2SAT 97
== END 2019-01-13 15:50 | disposition home or self-care (01) ==
PROVIDERS: Emergency Provider Emergency Medicine; Family Provider Student in an Organized Health Care Education/Training Program; PCP Student in an Organized Health Care Education/Training Program
DX: E11.65 Type 2 diabetes mellitus with hyperglycemia (principal); R10.13 Epigastric pain; R10.31 Right lower quadrant pain; N28.81 Hypertrophy of kidney; K31.84 Gastroparesis; I10 Essential (primary) hypertension; J45.909 Unspecified asthma, uncomplicated; E78.00 Pure hypercholesterolemia, unspecified; Z72.0 Tobacco use; Z79.4 Long term (current) use of insulin; Z79.51 Long term (current) use of inhaled steroids; Z79.899 Other long term (current) drug therapy
CPT/HCPCS: 74176; 76705; 80048; 80076; 81001; 83690; 85025; 99284; J2405

== ENCOUNTER 2019-01-22 14:15 | Emergency (ER) | payer MEDICAID, SELFPAY ==
[2019-01-22 14:17] VITALS: BP 160/90; PULSE 116; RESP 18; TEMP 37.4; O2SAT 98
--- NOTE | 2019-01-22 14:34 | ED.DCSUM_ITS ---
History of Present Illness Chief Complaint: Abd Pain Informant: Patient, Family Onset: - - 1+ months Context: Gradual Onset Timing: Waxes and wanes Quality: Spasms and cramping Location: Lower abdomen and right flank Current Severity: Severe Maximum Severity: Severe Narrative: Patient presents with a 1 month or more history of colicky lower abdominal pain that wraps to the right flank. She has been seen in the ER twice with large work-ups. She is felt to have gastroparesis secondary to her diabetes. After her last ED visit she was given Reglan and family states she was significantly improved for about 10 days, but has worsened again. She is scheduled to have both an EGD and colonoscopy on the eighth. Patient has not noted a fever at home. Last bowel movement was yesterday. Prior similar symptoms: Yes - Past Medical History (1) Asthma Status: Chronic (2) DM2 (diabetes mellitus, type 2) Status: Chronic (3) HTN (hypertension) Status: Chronic (4) Obesity (BMI 30-39.9) Status: Chronic Past Medical History - Allergies and Home Meds Allergies/Adverse Reactions: Allergies tramadol Allergy (Verified 01/22/19 14:19) Hives albuterol sulfate [From Proventil HFA] Adverse Reaction (Verified 01/22/19 14:19) Vomiting ammonium lactate [From Lac-Hydrin] Adverse Reaction (Verified 01/22/19 14:19) Other phentermine HCl [From Adipex-P] Adverse Reaction (Verified 01/22/19 14:19) Chest tightness Primary Care Physician: Jese Zheng DO [Primary Care Provider] - 5-7 Days Prior records reviewed: Yes Past Medical History: - - Reviewed Surgical History: herniorrhaphy, hysterectomy, - - BL TKR, Hysterectomy, L oopherectomy, Bladder sling, 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 Lives: With Family Smoking Status: Current every day smoker - Family History Maternal Family History: Reports: Cancer, Diabetes, Hypertension Paternal Family History: Reports: No pertinent history Review of Systems General: Denies: Chills, Fever Cardiovascular: Denies: Chest pain Respiratory: Denies: Dyspnea, Cough Gastrointestinal: Reports: Abdominal pain, Nausea, Constipation. Denies: Vomiting Genitourinary: Denies: Dysuria, Hematuria Neurological: Denies: Headache Physical Exam Vital Signs/Narrative: Vital Signs Temp Pulse Resp BP Pulse Ox 01/22/19 14:17 99.4 F H 116 H 18 160/90 H 98 Inital Vital Signs reviewed: Yes General: Well nourished, Well developed ENT: Moist mucous membranes Cardiovascular: Regular rhythm, Tachycardia Respiratory: No distress, CTA bilaterally Abdomen: Soft, Tender, Hypoactive bowel sounds, - - Mild lower abdominal tenderness palpation. No guarding or rebound.. Negative for: Guarding, Rebound tenderness Extremities: Nontender Skin: Normal color Neurological: Alert Psychological: - - Anxious Diagnostic/Tx/Re-eval Clinical Impression(s) from Imaging Studies Abdomen X-Ray 01/22/19 16:00 IMPRESSION: Degenerative changes within the pubic symphysis Multiple calcifications within the lower pelvis most likely vascular, ureteral calculi cannot be excluded Electronically Signed: Odell Ricketts, at 16:46 EDT Tel , Service support , Abnormal Lab Results 01/22/19 01/22/19 01/22/19 14:45 14:45 15:32 WBC Cancelled 12.2 H Corrected WBC Cancelled RBC Cancelled 3.89 L Hgb Cancelled 11.7 L Hct Cancelled 33.9 L MCV Cancelled 87.1 MCH Cancelled 30.1 MCHC Cancelled 34.5 RDW Cancelled 12.0 RDW Differential Cancelled 37.4 Plt Count Cancelled 213 MPV Cancelled 9.4 Immature Gran % (Auto) Cancelled 0.400 Neut % (Auto) Cancelled 76.0 H Lymph % (Auto) Cancelled 13.5 L Bell % (Auto) Cancelled 9.7 Eos % (Auto) Cancelled 0.2 Baso % (Auto) Cancelled 0.2 Absolute Neuts (auto) Cancelled 9.3 H Absolute Lymphs (auto) Cancelled 1.64 Total Counted Cancelled Not Reportable Neutrophils % (Manual) Cancelled Band Neutrophils % Cancelled Lymphocytes % (Manual) Cancelled Monocytes % (Manual) Cancelled Eosinophils % (Manual) Cancelled Basophils % (Manual) Cancelled Metamyelocytes % Cancelled Myelocytes % Cancelled Promyelocytes % Cancelled Blast Cells % Cancelled Plasma Cell % (Manual) Cancelled Other Cells % Cancelled Nucleated RBCs/100 WBC Cancelled Differential Comment Cancelled Diff Path Review Cancelled Hypersegmented Neuts Cancelled Atypical Lymphocytes Cancelled Reactive Lymphocytes Cancelled Smudge Cells Cancelled Toxic Granulation Cancelled Toxic Vacuolation Cancelled Dohle Bodies Cancelled Wendy Rods Cancelled Platelet Estimate Cancelled Plt Morphology Comment Cancelled RBC Morphology Cancelled Polychromasia Cancelled Hypochromasia Cancelled Poikilocytosis Cancelled Basophilic Stippling Cancelled Anisocytosis Cancelled Microcytosis Cancelled Macrocytosis Cancelled Spherocytes Cancelled Sickle Cells Cancelled Target Cells Cancelled Tear Drop Cells Cancelled Ovalocytes Cancelled Stomatocytes Cancelled [place] Bodies Cancelled [place] Cells Cancelled Bite Cells Cancelled Crenated Cell Cancelled Acanthocytes (Spur) Cancelled Rouleaux Cancelled Schistocytes Cancelled Sodium 129 L Potassium 3.3 L Chloride 97 L Carbon Dioxide 23.0 Anion Gap 9 BUN 7 Creatinine 0.74 Estim Creat Clear Calc 115.13 Est GFR (MDRD) Af Amer 105 Est GFR (MDRD) Non-Af 87 BUN/Creatinine Ratio 9.5 L Glucose 472 H* Calcium 8.6 Total Bilirubin 1.20 H Direct Bilirubin 0.30 AST 8 L ALT 11 L Alkaline Phosphatase 113 Total Protein 7.8 Albumin 3.0 L Globulin 4.8 H Lipase 61 L Urine Color Urine Clarity Urine pH Ur Specific [place] Urine Protein Urine Glucose (UA) Urine Ketones Urine Occult Blood Urine Nitrite Urine Bilirubin Urine Urobilinogen Ur Leukocyte Esterase Urine RBC Urine WBC Ur Squamous Epith Cells Urine Bacteria Urine Mucus 01/22/19 16:41 WBC Corrected WBC RBC Hgb Hct MCV MCH MCHC RDW RDW Differential Plt Count MPV Immature Gran % (Auto) Neut % (Auto) Lymph % (Auto) Bell % (Auto) Eos % (Auto) Baso % (Auto) Absolute Neuts (auto) Absolute Lymphs (auto) Total Counted Neutrophils % (Manual) Band Neutrophils % Lymphocytes % (Manual) Monocytes % (Manual) Eosinophils % (Manual) Basophils % (Manual) Metamyelocytes % Myelocytes % Promyelocytes % Blast Cells % Plasma Cell % (Manual) Other Cells % Nucleated RBCs/100 WBC Differential Comment Diff Path Review Hypersegmented Neuts Atypical Lymphocytes Reactive Lymphocytes Smudge Cells Toxic Granulation Toxic Vacuolation Dohle Bodies Wendy Rods Platelet Estimate Plt Morphology Comment RBC Morphology Polychromasia Hypochromasia Poikilocytosis Basophilic Stippling Anisocytosis Microcytosis Macrocytosis Spherocytes Sickle Cells Target Cells Tear Drop Cells Ovalocytes Stomatocytes [place] Bodies Alyson Cells Bite Cells Crenated Cell Acanthocytes (Spur) Rouleaux Schistocytes Sodium Potassium Chloride Carbon Dioxide Anion Gap BUN Creatinine Estim Creat Clear Calc Est GFR (MDRD) Af Amer Est GFR (MDRD) Non-Af BUN/Creatinine Ratio Glucose Calcium Total Bilirubin Direct Bilirubin AST ALT Alkaline Phosphatase Total Protein Albumin Globulin Lipase Urine Color Yellow Urine Clarity Clear Urine pH 6.5 Ur Specific [place] 1.010 Urine Protein 30 H Urine Glucose (UA) 1000 H Urine Ketones 150 H Urine Occult Blood 50 H Urine Nitrite Negative Urine Bilirubin Negative Urine Urobilinogen 1 H Ur Leukocyte Esterase 25 H Urine RBC 0-5 SEEN Urine WBC 5-10 SEEN Ur Squamous Epith Cells 0-5 SEEN Urine Bacteria RARE Urine Mucus 0 SEEN - Medical Decision Making Patient was given morphine, Zofran, and IV fluids. Lab work is reviewed. Patient has hyperglycemia and patient states her blood sugars have been running quite high at home. She was given 8 units of insulin. Blood sugars gone from 472-384. Patient was instructed on importance of better glycemic control. Patient thought she was getting an EGD and colonoscopy next Saturday. I saw that she was preregistered for a radiology test and went to inquire about this. She is scheduled for an upper GI with small bowel follow-through. This was explained to her. On review of the x-ray she does have a mild to moderate amount of stool in the right side of her abdomen where she is complaining of the most pain. She will be given a bottle of mag citrate to see if this helps her symptoms as well. She will continue her Reglan. She has Zofran at home. ED Disposition - Plan for ED Patient: Disposition: Home or Assisted Living Instructions: ABDOMINAL PAIN, Unknown Cause, (Female), Diabetic Hyperglycemia Prescriptions: Magnesium Citrate [Citrate Of Magnesia] 150 ml PO Q6H PRN PRN #300 ml PRN Reason: Constipation Prescription Printed Referrals: Jese Zheng DO [Primary Care Provider] - 5-7 Days Additional Instructions: Follow-up for your upper GI test on Saturday as scheduled.
[2019-01-22] MEDS: 0.9% Normal Saline 1,000 ML 150 ML IV (14:46)
[2019-01-22] MEDS: Ondansetron 4 MG/2 ML Vial IV (14:46)
[2019-01-22] MEDS: Morphine 4 MG/ML Syringe IV (14:46)
[2019-01-22 15:27] LABS: AST(SGOT) 8 U/L (15-37); Alanine Aminotransfer ALT/SGPT 11 U/L (13-56); Alkaline Phosphatase 113 U/L (45-117); Anion Gap 9 (5-15); BUN 7 mg/dL (7-18); BUN/Creat Ratio 9.5 RATIO (10-20); Calcium,Total 8.6 mg/dL (8.5-10.1); Chloride 97 mmol/L (98-107); Creatinine, Serum 0.74 mg/dL (0.55-1.02); EST Glomerular Filtration Rate 87 mL/min (>60); Est Glom Filt Rate - Afr Amer 105 mL/min (>60); Estimated Creatinine Clearance 115.13 ml/min; Globulin 4.8 g/dL (2.2-4.2); Glucose 472 mg/dL (74-106); Lipase 61 U/L (73-393); Potassium 3.3 mmol/L (3.5-5.1); Protein, Total 7.8 g/dL (6.4-8.2); Sodium Level 129 mmol/L (136-145)
--- NOTE | 2019-01-22 15:28 | ED.RN ---
GLUCOSE [address] LAB[address] DR ABBOTT AWARE
--- NOTE | 2019-01-22 16:00 | RAD_ITS ---
STUDY: X-RAY - ABDOMEN/PELVIS REASON FOR EXAM: Female, 53 years old. Lower abdominal pain TECHNIQUE: Flat and upright abdomen COMPARISON: CT 01/13/2019. FINDINGS: Normal visualized lung bases. There is an unremarkable bowel gas pattern. There is no demonstrated free abdominal air. The visualized liver, spleen and kidneys are grossly normal in size and morphology. Normal soft tissue structures. There are degenerative changes at the pubic symphysis. There are multiple calcifications in the lower pelvis. RAD/Abd Inc Decub and/or Erect IMPRESSION: Degenerative changes within the pubic symphysis Multiple calcifications within the lower pelvis most likely vascular, ureteral calculi cannot be excluded Electronically Signed: Odell Ricketts, at 16:46 EDT Tel , Service support ,
[2019-01-22 16:01] LABS: Absolute Lymphocyte Count 1.64 X10^3/ul (0.83-4.51); Absolute Neutrophil Count 9.3 X10^3/uL (2.0-7.7); Basophil# 0.02 X10^3/uL; Basophil% 0.2 % (0-1); Eosinophil# 0.03 X10^3/uL; Eosinophils% 0.2 % (0-5); Hematocrit 33.9 % (37-47); Hemoglobin 11.7 g/dl (12.0-15.0); Lymphocyte # 1.64 X10^3/ul (4.0); Lymphocyte % 13.5 % (19-41); Mean Corp Hgb Conc 34.5 g/gl (32-36); Mean Corpuscular Hgb 30.1 pg (27.0-32.0); Mean Corpuscular Volume 87.1 fL (81-99); Mean Platelet Vol. 9.4 fl (6.2-12.0); Monocyte# 1.18 X10^3/uL; Monocyte% 9.7 % (0-10); Neutrophil # 9.26 X10^3/uL (2.7-7.7); Platelet Count 213 K/mm3 (150-450); RBC Distribution Width SD 37.4 fl (35.1-43.9); Red Blood Count 3.89 M/mm3 (4.2-5.4); White Blood Count 12.2 K/mm3 (4.4-11.0)
[2019-01-22 16:06] LABS: POSITIVE COUNT NO; POSITIVE DIFFERENTIAL NO; POSITIVE MORPHOLOGY NO
[2019-01-22] MEDS: Insulin Lispro 100 UNIT/ML INSULN.PEN 8 UNIT SC (16:36)
[2019-01-22 16:38] VITALS: BP 139/84; PULSE 117; RESP 22; O2SAT 98
[2019-01-22 16:44] LABS: Mucous, Urine 0 SEEN /hpf (<or=2+)
[2019-01-22 16:46] LABS: Color, Urine Yellow (Yellow); Glucose, Dipstick 1000 mg/dl (Normal); Leukocyte Esterase-Dipstick 25 /ul (Negative); Nitrite-Dipstick Negative (Negative); Occult Blood-Urine 50 /ul (Negative); Protein-Dipstick 30 mg/dl (Negative); Urine Bilirubin Dipstick Negative (Negative); Urine Clarity Clear (Clear); Urine Urobilinogen 1 mg/dl (Normal); Urine pH 6.5 (5.0 - 8.0)
[2019-01-22 16:49] LABS: Ketone-Dipstick 150 mg/dl (Negative)
[2019-01-22 17:01] LABS: Red Blood Cells-Urine 0-5 SEEN /hpf (0-5); Squamous Epithelial Cells - UA 0-5 SEEN /hpf (5-10); White Blood Cells 5-10 SEEN /hpf (0-5)
[2019-01-22 17:02] LABS: Bacteria RARE /hpf (None Seen)
[2019-01-22 17:41] LABS: Bedside Glucose 384 mg/dL (70-110)
[2019-01-22 17:47] VITALS: BP 129/83; PULSE 110; RESP 18; O2SAT 97
== END 2019-01-22 17:48 | disposition home or self-care (01) ==
PROVIDERS: Emergency Provider Emergency Medicine; Family Provider Student in an Organized Health Care Education/Training Program; PCP Student in an Organized Health Care Education/Training Program
DX: R10.30 Lower abdominal pain, unspecified (principal); E11.65 Type 2 diabetes mellitus with hyperglycemia; J45.909 Unspecified asthma, uncomplicated; I10 Essential (primary) hypertension; E66.9 Obesity, unspecified; F17.200 Nicotine dependence, unspecified, uncomplicated
CPT/HCPCS: 74019; 80048; 80076; 81001; 82962; 83690; 85025; 96361; 96374; 96375; 99283; J7030; A4216; J2405

== ENCOUNTER → 2019-01-26 | Outpatient (CLI) | payer MEDICAID, SELFPAY ==
[2019-01-13 11:11] VITALS: BMI 30.2
--- NOTE | 2019-01-26 07:55 | RAD_ITS ---
STUDY: AIR-CONTRAST UPPER GI SERIES WITH SMALL BOWEL FOLLOW-THROUGH EXAMINATION. REASON FOR EXAM: Female, 53 years old. Vomiting and constipation. Right-sided abdominal pain. History of prior bowel obstruction and resection. FLUOROSCOPY TIME (if supplied): (1:04) minutes/seconds. 15 spot films were obtained. TECHNIQUE: The patient ingested barium. Multiple images of the esophagus, stomach and duodenum were obtained. COMPARISON: None. FINDINGS: The esophagus is unremarkable. No mass lesion is seen. Mild gastroesophageal reflux. The remainder of the stomach and duodenum is unremarkable. No evidence of ulceration. No mass effect is present A small bowel follow-through examination was then obtained. The small bowel transit is normal. There is no evidence of intrinsic or extrinsic small bowel disease. The terminal ileum is unremarkable. RAD/Upper GI/w Small Bowel IMPRESSION: Mild degree of gastroesophageal reflux. Electronically Signed: Sourav Gilman, at 8:43 EDT , Service support ,
== END | disposition home or self-care (01) ==
LOC: RAD 07:46
PROVIDERS: Family Provider Student in an Organized Health Care Education/Training Program; PCP Student in an Organized Health Care Education/Training Program; Referring Provider Nurse Practitioner Adult Health; Visit Provider Nurse Practitioner Adult Health
DX: R10.9 Unspecified abdominal pain (principal); K59.00 Constipation, unspecified; R10.13 Epigastric pain; R11.0 Nausea
CPT/HCPCS: 74249

== ENCOUNTER 2019-01-28 11:18 | Emergency (ER) | payer MEDICAID, SELFPAY ==
[2019-01-28 11:19] VITALS: BP 114/67; PULSE 122; RESP 21; TEMP 36.4; O2SAT 96; BMI 28.1
--- NOTE | 2019-01-28 11:51 | ED.VIS.GEN ---
History of Present Illness Chief Complaint: Constipation Informant: Patient Onset: Days Context: Gradual Onset Timing: Continuous Quality: No bowel movement x2 days Location: Rectum Current Severity: Mild Maximum Severity: Moderate Worsened by: Attempt to have a bowel movement Relieved by: Nothing Associated Symptoms: Patient states she had diarrhea at this past weekend Narrative: Patient is a 53-year-old woman who presents with constipation. Has not had a bowel movement 48 hours. She is passing gas. She denies burping, nausea or vomiting. She denies abdominal pain. She states she attempted to digitally disimpact herself and caused herself to bleed. She now has increased rectal pain. She has no other complaints. Prior similar symptoms: No Recent Illness/Hospitalization: Yes - Past Medical History (1) Pulmonary nodule Status: Acute (2) DM2 (diabetes mellitus, type 2) Status: Chronic (3) HTN (hypertension) Status: Chronic (4) Small bowel obstruction Status: Chronic (5) Tobacco dependence Status: Chronic Past Medical History - Allergies and Home Meds Allergies/Adverse Reactions: Allergies tramadol Allergy (Verified 01/28/19 11:18) Hives albuterol sulfate [From Proventil HFA] Adverse Reaction (Verified 01/28/19 11:18) Vomiting ammonium lactate [From Lac-Hydrin] Adverse Reaction (Verified 01/28/19 11:18) Other phentermine HCl [From Adipex-P] Adverse Reaction (Verified 01/28/19 11:18) Chest tightness Primary Care Physician: Jese Zheng DO [Primary Care Provider] - 1 Week if not improving Prior records reviewed: Yes Surgical History: herniorrhaphy, hysterectomy, - - BL TKR, Hysterectomy, L oopherectomy, Bladder sling, 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 Smoking Status: Current every day smoker - Family History Maternal Family History: Reports: Cancer, Diabetes, Hypertension Paternal Family History: Reports: No pertinent history Review of Systems General: Denies: Chills, Fever, Malaise, Subjective, Sweats, Weight loss, - Gastrointestinal: Reports: Constipation. Denies: Abdominal pain, Nausea, Vomiting, Diarrhea, Melena, Hematochezia Genitourinary: Denies: Dysuria, Hematuria, Frequency Musculoskeletal: Denies: Myalgias, Arthralgias, Neck pain, Back pain, Swelling, Extremity Pain, -, - Neurological: Denies: Weakness, Parasthesia, Numbness Hematologic: Denies: Easy bruising, Easy bleeding Physical Exam Vital Signs/Narrative: Vital Signs Temp Pulse Resp BP Pulse Ox 01/28/19 11:19 97.6 F L 122 H 21 H 114/67 96 Inital Vital Signs reviewed: Yes General: Well nourished, Well developed, No Acute Distress Head: Normocephalic, Atraumatic Eyes: Perrl, EOMI. Negative for: Pale conjunctiva, Scleral icterus, - Cardiovascular: Regular rate, Regular rhythm, No murmurs, Normal S1, Normal S2 Respiratory: No distress, CTA bilaterally, Chest nontender Abdomen: Soft, Nontender, Nondistended, Normal bowel sounds, No masses Rectal: Tenderness - There is a small thrombosed hemorrhoid 6:00 lithotomy position. Patient does have a fecal impaction. Back: Nontender, Normal Inspection Extremities: Nontender, No edema Skin: Normal color, No rash Neurological: Alert, Oriented x3, Cranial nerves II-XII grossly intact, Normal Strength, Normal Sensation Psychological: Normal affect, Normal Mood Diagnostic/Tx/Re-eval - Medical Decision Making On rectal exam patient had a large fecal impaction. Procedures Procedure(s): Disimpaction by physician ED Disposition - Plan for ED Patient: Disposition: Home or Assisted Living Diagnosis: Fecal impaction in rectum, External thrombosed hemorrhoids Instructions: Thrombosed Hemorrhoids, FECAL IMPACTION, Treated Referrals: Jese Zheng DO [Primary Care Provider] - 1 Week if not improving Additional Instructions: Take MiraLAX 3 times a day for the next week then twice a day thereafter.
[2019-01-28 12:08] VITALS: PULSE 112; RESP 15; O2SAT 97
== END 2019-01-28 12:09 | disposition home or self-care (01) ==
LOC: ED 11:58
PROVIDERS: Emergency Provider Emergency Medicine; Family Provider Student in an Organized Health Care Education/Training Program; PCP Student in an Organized Health Care Education/Training Program
DX: K64.5 Perianal venous thrombosis (principal); K56.41 Fecal impaction; I10 Essential (primary) hypertension; E11.9 Type 2 diabetes mellitus without complications; F17.200 Nicotine dependence, unspecified, uncomplicated
CPT/HCPCS: 99282

== ENCOUNTER 2019-08-21 15:54 | Emergency (ER) | payer MEDICAID, SELFPAY ==
[2019-05-25 11:19] VITALS: BMI 28.1
[2019-08-21 15:55] VITALS: BP 163/89; PULSE 96; RESP 20; TEMP 36.7; O2SAT 100; BMI 31.7
--- NOTE | 2019-08-21 16:26 | CT_ITS ---
STUDY: CT ABDOMEN AND PELVIS WITH CONTRAST REASON FOR EXAM: Female, 53 years old. LOW ABD PAIN, BOWEL ISSUES, TISHA/BSO, COLOSTOMY-REVERSED, HERNIA SURGERIES, 7 SURGERIES FOR STRANGULATIONOF BOWEL RADIATION DOSAGE (If Supplied By Facility): CTDIvol = ( 15.43 ) mGy, DLP = ( 1019.84 ) mGycm TECHNIQUE: Transaxial images were obtained from the dome of the diaphragm to the symphysis pubis with oral contrast. 100mL [id number]-[id number] was administered. Sagittal and coronal images were reconstructed. Individualized dose optimization techniques were used for this CT. COMPARISON: Prior abdomen and pelvic CT exam of January 13, 2019 FINDINGS: The visualized lung bases are unremarkable. The visualized portions of the heart are within normal limits. Stable small hypodensity of the liver near the falciform ligament. Normal gallbladder and extrahepatic biliary system. Normal spleen. Normal pancreas. Normal bilateral adrenal glands. Normal right kidney. Normal left kidney. Normal visualized stomach. Nondistended small bowel with progression of contrast throughout the small bowel into the right side of the colon. 1 mildly dilated mid small bowel loops at a surgical anastomosis. Normal colon. The appendix is visualized and appears normal. There is diffuse atherosclerotic calcification of the abdominal aorta, without a demonstrated aneurysm. Normal inferior vena cava. Normal retroperitoneum. Normal urinary bladder. Status post hysterectomy with no pelvic mass or free fluid in the pelvis. Healed midline abdominal incision. There are diffuse degenerative changes of the visualized lumbar spine. CT/Abdomen/Pelvis WITH Contrast IMPRESSION: Mildly dilated postsurgical change and one anastomotic small bowel loop; otherwise, no bowel abnormality. Contrast is passing adequately through the small bowel into the colon without evidence of obstruction, perforation or inflammatory bowel changes. A normal appendix is identified. Stable hypodensity, probably cyst near the falciform ligament of the liver for which no additional follow-up is recommended. Otherwise normal liver, spleen, pancreas with a nondistended gallbladder. Normal kidneys bilaterally without hydronephrosis or stones. Unremarkable nondistended urinary bladder. Status post hysterectomy with no pelvic mass or free fluid. Electronically Signed: Franchesca Patterson MD at 18:29 EST , Service support ,
--- NOTE | 2019-08-21 17:02 | ED.DCSUM_ITS ---
- ER Visit Summary Date of Service: 08/21/19 Chief Complaint: [Abdominal pain] History of Present Illness: The patient is a 53 F [presents to the emergency department 4-day history of abdominal pain is somewhat intermittent. Patient states that she has severe pain and then she feels like she needs to have a bowel movement or pass gas and then pain will ease up for a time and then come back. Patient was seen today in her primary care physician's office and had a urine dip which was negative. Patient denies frequency, urgency, or dysuria. She denies any fevers. Patient is concerned because she has had history of multiple abdominal surgeries with history of small bowel obstruction and strangulated bowel leading to resection of the foot and a half of small bowel. Patient does have a history of asthma, COPD, GERD, diabetes, hypertension. Patient's had some mild nausea but no vomiting. She denies any fevers.] Physical Examination: [HEENT-PERRLA, EOMI. Cranial nerves II through XII grossly intact. TMs clear. Mucous membranes moist. No adenopathy. Cardiovascular-regular rate and rhythm without murmur or ectopy Lungs-clear to auscultation, chest wall stable without crepitus or subcu emphysema Abdomen-normoactive bowel sounds, soft. Patient has some diffuse tenderness to palpation on exam. There is no rebound, rigidity, or peritoneal signs. Extremities-intact ?4, normal range of motion, normal pulses, atraumatic] Test Results: [CBC with differential is normal. Chemistries were normal. LFTs unremarkable. Lipase was 72. Glucose 314. CT scan of the abdomen pelvis with IV and p.o. contrast showed contrast moving through the small bowel into the colon without evidence of bowel obstruction or inflammatory process. Appendix was visualized and was normal. Essentially nothing acute.] Emergency Department Course and Treatment: [Patient was medicated with morphine and Zofran on arrival.] Treatment Plan: [Patient advised to follow-up with her primary care physician 3 to 5 days.] Disposition: [Discharged home in stable condition] Impression: [Abdominal pain-etiology uncertain] This note was generated with [employer] dictation software. It may contain incorrect words, spelling, and punctuation that were not noted in review of the chart prior to signing ED Disposition - Plan for ED Patient: Referrals: Jese Zheng DO [Primary Care Provider] -
[2019-08-21 17:06] LABS: Absolute Lymphocyte Count 3.05 X10^3/uL (0.83-4.51); Absolute Neutrophil Count 2.3 X10^3/uL (2.0-7.7); Basophil# 0.04 X10^3/uL; Basophil% 0.7 % (0-1); Eosinophil# 0.13 X10^3/uL; Eosinophils% 2.2 % (0-5); Hematocrit 40.2 % (37-47); Hemoglobin 13.5 g/dL (12.0-15.0); Lymphocyte # 3.05 X10^3/ul (4.0); Lymphocyte % 51.1 % (19-41); Mean Corp Hgb Conc 33.6 g/dL (32-36); Mean Corpuscular Volume 89.3 fL (81-99); Mean Platelet Vol. 9.3 fl (6.2-12.0); Monocyte# 0.47 X10^3/uL; Monocyte% 7.9 % (0-10); NRBC Flagged by Analyzer 0 % (0-5); Neutrophil # 2.27 X10^3/uL (2.7-7.7); Neutrophil % 37.9 % (47-70); Platelet Count 254 K/mm3 (150-450); RBC Distribution Width CV 12.1 % (11.6-14.6); RBC Distribution Width SD 39.6 fl (35.1-43.9)
[2019-08-21 17:16] LABS: Albumin, Serum 3.7 g/dL (3.2-5.0); BUN 10 mg/dL (7-18); BUN/Creat Ratio 13.6 RATIO (10-20); Creatinine, Serum 0.73 mg/dL (0.55-1.02); EST Glomerular Filtration Rate 88 mL/min (>60); Est Glom Filt Rate - Afr Amer 106 mL/min (>60); Estimated Creatinine Clearance 88.87 ml/min; Globulin 4.1 g/dL (2.2-4.2); Glucose 314 mg/dL (74-106); Protein, Total 7.8 g/dL (6.4-8.2)
[2019-08-21 17:17] LABS: ALB/GLOB Ratio 0.9 RATIO (0.9-2.4); AST(SGOT) 10 U/L (15-37); Alanine Aminotransfer ALT/SGPT 19 U/L (13-56); Alkaline Phosphatase 90 U/L (45-117); Anion Gap 3 (5-15); Calcium,Total 9.1 mg/dL (8.5-10.1); Chloride 104 mmol/L (98-107); Lipase 72 U/L (73-393); Potassium 3.9 mmol/L (3.5-5.1); Sodium Level 136 mmol/L (136-145)
[2019-08-21 17:19] LABS: Lactic Acid 1.5 mmol/L (0.4-1.9)
[2019-08-21] MEDS: 0.9% Normal Saline 1,000 ML 125 ML IV (17:28)
[2019-08-21] MEDS: Ondansetron 4 MG/2 ML Vial IV (17:28)
[2019-08-21] MEDS: Morphine 4 MG/ML Syringe IV (17:28)
[2019-08-21 18:42] LABS: Bacteria 0 SEEN /hpf (None Seen); Mucous, Urine 0 SEEN /hpf (<or=2+); Red Blood Cells-Urine 0 SEEN /hpf (0-5); Squamous Epithelial Cells - UA 0 SEEN /hpf (5-10); White Blood Cells 0 SEEN /hpf (0-5)
[2019-08-21 18:53] LABS: Color, Urine Straw (Yellow); Glucose, Dipstick 1000 mg/dl (Normal); Ketone-Dipstick Negative (Negative); Leukocyte Esterase-Dipstick Negative /ul (Negative); Nitrite-Dipstick Negative (Negative); Occult Blood-Urine Negative /ul (Negative); Protein-Dipstick Negative (Negative); Urine Bilirubin Dipstick Negative (Negative); Urine Clarity Clear (Clear); Urine Urobilinogen Normal (Normal)
--- NOTE | 2019-08-21 18:56 | ED.DEP ---
ED Disposition - Plan for ED Patient: Instructions: ABDOMINAL PAIN, Unknown Cause, (Female) Referrals: Jese Zheng DO [Primary Care Provider] - 3-5 Days
--- NOTE | 2019-08-21 19:04 | ED.DEP ---
ED Disposition - Plan for ED Patient: Instructions: ABDOMINAL PAIN, Unknown Cause, (Female) Prescriptions: Ibuprofen [Motrin] 600 mg PO Q8H PRN PRN #30 tab PRN Reason: Pain Or Fever Transmission Status: Pending to [facility] Referrals: Jese Zheng DO [Primary Care Provider] - 3-5 Days
[2019-08-21 19:06] VITALS: RESP 18
== END 2019-08-21 19:18 | disposition home or self-care (01) ==
PROVIDERS: Emergency Provider Emergency Medicine; PCP Student in an Organized Health Care Education/Training Program
DX: R10.84 Generalized abdominal pain (principal); I10 Essential (primary) hypertension; J44.9 Chronic obstructive pulmonary disease, unspecified; E11.9 Type 2 diabetes mellitus without complications; K21.9 Gastro-esophageal reflux disease without esophagitis; Z87.891 Personal history of nicotine dependence
CPT/HCPCS: 74177; 80053; 81001; 83605; 83690; 85025; 96361; 96374; 96375; 99283; J7030; Q9967; A4216; J2405

== ENCOUNTER 2021-04-06 14:26 | Emergency (ER) | payer MEDICAID, SELFPAY ==
[2021-04-06 14:27] VITALS: BP 145/84; PULSE 109; RESP 18; TEMP 36.6; O2SAT 99; BMI 28.1
[2021-04-06 16:05] LABS: Absolute Lymphocyte Count 1.24 X10^3/uL (0.83-4.51); Absolute Neutrophil Count 2.6 X10^3/uL (2.0-7.7); Basophil# 0.01 X10^3/uL; Basophil% 0.2 % (0-1); Hematocrit 41.6 % (37-47); Hemoglobin 14.4 g/dL (12.0-15.0); Lymphocyte # 1.24 X10^3/ul (0.83-4.51); Lymphocyte % 28.8 % (19-41); Mean Corp Hgb Conc 34.6 g/dL (32-36); Mean Corpuscular Hgb 30.2 pg (27.0-32.0); Mean Corpuscular Volume 87.2 fL (81-99); Mean Platelet Vol. 9.2 fl (6.2-12.0); Monocyte# 0.47 X10^3/uL; Monocyte% 10.9 % (0-10); NRBC Flagged by Analyzer 0 % (0-5); Neutrophil # 2.56 X10^3/uL (2.7-7.7); Neutrophil % 59.4 % (47-70); Platelet Count 234 K/mm3 (150-450); RBC Distribution Width CV 11.3 % (11.6-14.6); RBC Distribution Width SD 36.5 fl (35.1-43.9); Red Blood Count 4.77 M/mm3 (4.2-5.4); White Blood Count 4.3 K/mm3 (4.4-11.0)
[2021-04-06 16:23] LABS: ALB/GLOB Ratio 0.6 RATIO (0.9-2.4); AST(SGOT) 35 U/L (15-37); Alanine Aminotransfer ALT/SGPT 38 U/L (13-56); Albumin, Serum 3.4 g/dL (3.2-5.0); Alkaline Phosphatase 93 U/L (45-117); Anion Gap 8 (5-15); BUN 10 mg/dL (7-18); Chloride 100 mmol/L (98-107); Creatinine, Serum 0.71 mg/dL (0.55-1.02); EST Glomerular Filtration Rate 90 mL/min (>60); Est Glom Filt Rate - Afr Amer 109 mL/min (>60); Estimated Creatinine Clearance 89.25 ml/min; Globulin 5.4 g/dL (2.2-4.2); Glucose 251 mg/dL (74-106); Potassium 3.4 mmol/L (3.5-5.1); Protein, Total 8.8 g/dL (6.4-8.2); Sodium Level 135 mmol/L (136-145)
--- NOTE | 2021-04-06 17:07 | CT_ITS ---
STUDY: CT ABDOMEN AND PELVIS WITH CONTRAST REASON FOR EXAM: Female, 55 years old. abdomial pain RADIATION DOSAGE (If Supplied By Facility): CTDIvol = ( 14.07 ) mGy, DLP = ( 949.40 ) mGycm TECHNIQUE: Transaxial images were obtained from the dome of the diaphragm to the symphysis pubis without oral contrast. IV 100mL Isovue-300 was administered. Sagittal and coronal images were reconstructed. Individualized dose optimization techniques were used for this CT. COMPARISON: 08/21/2019 FINDINGS: Patchy areas of peripheral increased groundglass opacity and interstitial thickening consistent with Covid 19 pneumonia within the lower lobes.. The visualized portions of the heart are within normal limits. Mild nonspecific fatty infiltrated liver with tiny hypodense nodule in the left lobe which is too small to characterize probably representing focal fatty sparing. Bile ducts are nondilated. Normal gallbladder and extrahepatic biliary system. Normal spleen. Normal pancreas. Normal bilateral adrenal glands. Normal right kidney. Normal left kidney. Normal visualized stomach. Postsurgical changes status post bowel resection without evidence for proximal obstruction however, the loop is adherent to the anterior pelvic wall suggesting presence of adhesions. Normal colon. No evidence for acute appendicitis.. Atherosclerotic changes of the aorta without evidence for aneurysm. Normal inferior vena cava. Normal retroperitoneum. Completely distended thick-walled bladder likely of no significance.. Uterus not visualized consistent with hysterectomy Normal abdominal wall. Lumbar spine demonstrates degenerative change. CT/Abdomen/Pelvis W IV Cont ONLY IMPRESSION: Findings consistent with Covid 19 pneumonia within the lower lobes. Surgical changes status post bowel resection with apparent adherence of the anastomotic loop to the anterior pelvic wall suggesting adhesions although no evidence for proximal obstruction at this time Electronically Signed: Juan Clancy MD at 18:44 EDT , Service support ,
--- NOTE | 2021-04-06 17:08 | EDS_ITS ---
HPI History of Present Illness Chief Complaint: General Illness Narrative Narrative: 55-year-old female presenting with nausea, vomiting. She states she has not urinated in 4 days. Patient tested positive for Covid 19 days ago with illness beginning at 10 days ago. Patient does complain some lower abdominal discomfort. This is better when she sits on the commode however she states she is unable to actually urinate. She states she does have a cough and has had fever, chills. PFSH PFSH Medical History Blood clot in vein Dyslipidemia Essential hypertension GERD (gastroesophageal reflux disease) Hx: UTI (urinary tract infection) Incisional hernia without obstruction or gangrene Kidney stones Low HDL (under 40) Obesity Trigger ring finger of left hand Type 2 diabetes mellitus with polyneuropathy Unspecified hereditary and idiopathic peripheral neuropathy Home Medications albuterol sulfate 2 puff INHALATION Q4H PRN PRN 04/08/14 [History Last Taken 04/08/14 02:30] calcium citrate-vitamin D3 2 tab PO BID 04/08/14 [History Last Taken 04/05/17 22:00 2 tab] lisinopril 1 tab PO DAILY 04/07/17 [History Last Taken 04/05/17 08:00 1 tab] promethazine 25 mg PO Q6H PRN PRN #10 tab 12/25/18 [Rx Last Taken Unknown] magnesium citrate 150 ml PO Q6H PRN PRN #300 ml 01/22/19 [Rx Last Taken Unknown] albuterol sulfate 2.5 mg INHALATION Q4H PRN ml 05/11/19 [History Last Taken Unknown] alcohol swabs See Rx Instructions TOPICAL .COMPLEX ea 05/11/19 [History Last Taken Unknown] aspirin 81 mg tablet,delayed release 81 mg PO DAILY 05/11/19 [History Last Taken Unknown] atorvastatin 40 mg tablet 40 mg PO DAILY 05/11/19 [History Last Taken Unknown] blood sugar diagnostic #10 ea 05/11/19 [History Last Taken Unknown] blood-glucose meter #1 ea 05/11/19 [History Last Taken Unknown] clotrimazole-betamethasone 1 %-0.05 % topical cream 1 applic TOPICAL BID 05/11/19 [History Last Taken Unknown] famotidine 20 mg tablet 20 mg PO BID 05/11/19 [History Last Taken Unknown] glucose 4 gram chewable tablet 16 g PO Q15M PRN tab 05/11/19 [History Last Taken Unknown] insulin degludec 100 unit/mL (3 mL) subcutaneous pen 70 unit SC QHS ml 05/11/19 [History Last Taken Unknown] lancets 30 gauge #25 ea 05/11/19 [History Last Taken Unknown] mupirocin 2 % topical ointment 1 applic TOPICAL BID 05/11/19 [History Last Taken Unknown] pen needle, diabetic 31 gauge x 3/16 #30 ea 05/11/19 [History Last Taken Unknown] polyethylene glycol 3350 17 gram/dose oral powder 17 g PO BID 05/11/19 [History Last Taken Unknown] urea 40 % topical cream 1 applic TOPICAL BID 05/11/19 [History Last Taken Unknown] flash glucose sensor #2 ea 02/26/20 [Rx Last Taken Unknown] insulin aspart U-100 100 unit/mL (3 mL) subcutaneous pen 20 unit SC TID #24 ml MDD 80 04/05/20 [Rx Last Taken Unknown] metformin 1,000 mg tablet 1,000 mg PO DAILY 02/06/21 [History Last Taken Unknown] ondansetron 4 mg PO Q8H PRN PRN #14 tab 04/06/21 [Rx Last Taken Unknown] Allergy/AdvReac Type Severity Reaction Status Date / Time tramadol Allergy Hives Verified 04/06/21 14:30 albuterol sulfate AdvReac Vomiting Verified 04/06/21 14:30 [From Proventil HFA] ammonium lactate AdvReac Other Verified 04/06/21 14:30 [From Lac-Hydrin] phentermine HCl AdvReac Chest Verified 04/06/21 14:30 [From Adipex-P] tightness Family History Uncle Cancer Sister Diabetes Social History Smoking Status: Never smoker alcohol intake: never substance use type: does not use ROS ROS ED Constitutional Constitutional ED: Reports chills and fever(s) Eyes Eyes: Denies blurry vision or diplopia ENT ENT ED: Reports rhinorrhea and sore throat Cardiovascular Cardiovascular: Denies chest pain or palpitations Respiratory/Chest Respiratory/Chest: Reports cough and dyspnea Gastrointestinal Gastrointestinal: Reports abdominal pain, nausea and vomiting Genitourinary Genitourinary ED: Reports other Details: Unable to urinate Musculoskeletal Musculoskeletal: Reports myalgias; Denies arthralgias, back pain or neck pain Integumentary Denies rash Neurologic Neurologic: Reports headache(s); Denies paresthesias or weakness EXAM Physical Exam Const Vital Signs: 04/06/21 14:27 04/06/21 17:16 04/06/21 19:00 Temperature 97.9 F 99.9 F H Temperature Source Temporal Oral Pulse Rate 109 H 102 H 96 Respiratory Rate 18 19 H 19 H Respiratory Effort Short of Breath Blood Pressure 145/84 H 147/77 H 152/85 H Blood Pressure Mean 104 100 107 Pulse Ox 99 95 96 Oxygen Delivery Method Room Air Room Air Room Air 04/06/21 20:43 Temperature Temperature Source Pulse Rate 91 Respiratory Rate 19 H Respiratory Effort Blood Pressure 159/90 H Blood Pressure Mean Pulse Ox 98 Oxygen Delivery Method Positive well nourished General Appearance ED: NAD; Negative for pallor HEENT Reports moist mucous membranes Negative for trauma Eyes PERRL and EOMs intact bilaterally Neck no lymphadenopathy and supple Resp normal respiratory effort and clear to auscultation bilaterally Cardio regular rate and regular rhythm Neuro oriented x3 and CN's II-XII intact bilaterally Sensorium / Orientation: alert Psych mental status grossly normal Skin no rashes or lesions noted General Skin Exam: Negative for jaundice or pallor MDM MDM MDM Narrative Medical decision making narrative: Patient presenting with chief concern of not being able to urinate. She states she has not made urine in 4 days. Patient states he does feel a little bit lightheaded. She also expresses nausea. Ron oshea is Covid positive but does not have any respiratory complaints except for mild cough today. She is not hypoxic or tachypneic. Chest x-ray on my interpretation shows infiltrates similar to COVID-19. She is positive for this which is likely the source. Radiologist does agree. Patient has no leukocytosis and her H&H are stable. Renal function and electrolytes are normal. Patient was able to void and her urine was not infected but does show ketones. She was given 500 cc of IV fluids. She is able to drink water and tolerate this without vomiting. I obtained a CT of the abdomen pelvis which showed concern for possible adhesions without any bowel obstruction. It did not identify a reason why she would have difficulty voiding. Since patient is able to void today and she has normal renal function and he is basically discharged home. Patient be given a prescription for Zofran. Impression: 1. Decreased urine output 2. Nausea 3. History of COVID-19 pneumonitis Lab Data Labs: Laboratory Results - last 24 hr 04/06/21 04/06/21 04/06/21 15:50 15:50 15:50 WBC 4.3 L RBC 4.77 Hgb 14.4 Hct 41.6 MCV 87.2 MCH 30.2 MCHC 34.6 RDW Std Deviation 36.5 RDW Coeff of Brett 11.3 L Plt Count 234 MPV 9.2 Immature Gran % (Auto) 0.700 Neut % (Auto) 59.4 Lymph % (Auto) 28.8 [place] % (Auto) 10.9 H Eos % (Auto) 0.0 Baso % (Auto) 0.2 Absolute Neuts (auto) 2.6 Absolute Lymphs (auto) 1.24 Nucleated RBC % 0 Sodium 135 L Potassium 3.4 L Chloride 100 Carbon Dioxide 27.0 Anion Gap 8 BUN 10 Creatinine 0.71 Estim Creat Clear Calc 89.25 Est GFR (MDRD) Af Amer 109 Est GFR (MDRD) Non-Af 90 BUN/Creatinine Ratio 14.0 Glucose 251 H Calcium 9.0 Total Bilirubin 0.70 AST 35 ALT 38 Alkaline Phosphatase 93 Total Protein 8.8 H Albumin 3.4 Globulin 5.4 H Albumin/Globulin Ratio 0.6 L Lipase 38 L Urine Color Urine Clarity Urine pH Ur Specific [place] Urine Protein Urine Glucose (UA) Urine Ketones Urine Occult Blood Urine Nitrite Urine Bilirubin Urine Urobilinogen Ur Leukocyte Esterase Urine RBC Urine WBC Ur Squamous Epith Cells Urine Bacteria Urine Mucus 04/06/21 18:13 WBC RBC Hgb Hct MCV MCH MCHC RDW Std Deviation RDW Coeff of Brett Plt Count MPV Immature Gran % (Auto) Neut % (Auto) Lymph % (Auto) [place] % (Auto) Eos % (Auto) Baso % (Auto) Absolute Neuts (auto) Absolute Lymphs (auto) Nucleated RBC % Sodium Potassium Chloride Carbon Dioxide Anion Gap BUN Creatinine Estim Creat Clear Calc Est GFR (MDRD) Af Amer Est GFR (MDRD) Non-Af BUN/Creatinine Ratio Glucose Calcium Total Bilirubin AST ALT Alkaline Phosphatase Total Protein Albumin Globulin Albumin/Globulin Ratio Lipase Urine Color Yellow Urine Clarity Sl. Cloudy Urine pH 6.5 Ur Specific [place] 1.010 Urine Protein 100 H Urine Glucose (UA) 50 H Urine Ketones 150 A* Urine Occult Blood 10 H Urine Nitrite Negative Urine Bilirubin Negative Urine Urobilinogen 4 H Ur Leukocyte Esterase 25 H Urine RBC 0 SEEN Urine WBC 0-5 SEEN Ur Squamous Epith Cells 0-5 SEEN Urine Bacteria 0 SEEN Urine Mucus 0 SEEN Radiography Diagnostic Testing: Radiology Impression Abdomen/Pelvis CT 04/06/21 17:07 IMPRESSION: Findings consistent with Covid 19 pneumonia within the lower lobes. Surgical changes status post bowel resection with apparent adherence of the anastomotic loop to the anterior pelvic wall suggesting adhesions although no evidence for proximal obstruction at this time Electronically Signed: Juan Clancy MD at 18:44 EDT , Service support , Chest X-Ray 04/06/21 17:35 IMPRESSION: Findings consistent with Covid 19 pneumonia Electronically Signed: Juan Clancy MD at 18:36 EDT , Service support , Discharge Plan Triage Chief Complaint: General Illness ED Provider: Jarvis Duncan Dx/Rx/DC Orders Instructions: Coronavirus Disease 2019 (COVID-19): Caring for Yourself or Others, ED Abdominal Pain, Adhesions Prescriptions: New ondansetron 4 mg tablet,disintegrating 4 mg PO Q8H PRN PRN (Reason: Nausea) Qty: 14 RF: 0 No Action albuterol sulfate 2.5 mg /3 mL (0.083 %) solution for nebulization 2.5 mg INHALATION Q4H PRNRF: 0 alcohol swabs [BD Alcohol Swabs] Pads, Medicated See Rx Instructions TOPICAL .COMPLEX RF: 0 aspirin [Adult Low Dose Aspirin] 81 mg tablet,delayed release (DR/EC) 81 mg PO DAILY RF: 0 atorvastatin 40 mg tablet 40 mg PO DAILY RF: 0 (DME) FreeStyle Lite Strips Strip See Rx Instructions .ROUTE .MEDSUPPLY Qty: 10 RF: 0 (DME) blood-glucose meter [FreeStyle Lite Meter] Kit See Rx Instructions .ROUTE .MEDSUPPLY Qty: 1 RF: 0 clotrimazole-betamethasone [Lotrisone] 1-0.05 % cream 1 applic TOPICAL BID RF: 0 (DME) pen needle, diabetic [1st Tier Unifine Pentips] 31 gauge x 3/16 needle See Rx Instructions .ROUTE .MEDSUPPLY Qty: 30 RF: 0 famotidine 20 mg tablet 20 mg PO BID RF: 0 glucose 4 gram tablet,chewable 16 g PO Q15M PRNRF: 0 Tresiba FlexTouch U-100 100 unit/mL (3 mL) insulin pen 70 unit SC QHS RF: 0 mupirocin 2 % ointment 1 applic TOPICAL BID RF: 0 polyethylene glycol 3350 [Miralax] 17 gram/dose powder 17 g PO BID RF: 0 (DME) lancets [Unilet Super Thin Lancets] 30 gauge misc See Rx Instructions .ROUTE .MEDSUPPLY Qty: 25 RF: 0 urea 40 % cream 1 applic TOPICAL BID RF: 0 (DME) FreeStyle Michi 14 Day Sensor Kit See Rx Instructions .ROUTE .MEDSUPPLY Qty: 2 RF: 6 metformin 1,000 mg tablet 1,000 mg PO DAILY RF: 0 albuterol sulfate 1 INHALER inhaler 2 puff inhalation Q4H PRN PRN (Reason: Wheezing) RF: 0 calcium citrate-vitamin D3 1 EACH tablet 2 tab PO BID RF: 0 lisinopril 10 MG tablet 1 tab PO DAILY RF: 0 promethazine 25 MG tablet 25 mg PO Q6H PRN PRN (Reason: Nausea) Qty: 10 RF: 0 magnesium citrate 300 ML solution 150 ml PO Q6H PRN PRN (Reason: Constipation) Qty: 300 RF: 0 Novolog Flexpen U-100 Insulin 100 unit/mL (3 mL) insulin pen 20 unit SC TID MDD 80 Qty: 24 RF: 4 Primary Care Provider: Jese Zheng Referrals: Jese Zheng DO [Primary Care Provider] - Disposition Disposition: Home, Self Care Discharge Date/Time: 04/06/21 20:44
[2021-04-06 17:16] VITALS: BP 147/77; PULSE 102; RESP 19; TEMP 37.7; O2SAT 95
[2021-04-06 17:29] LABS: Lipase 38 U/L (73-393)
--- NOTE | 2021-04-06 17:35 | RAD_ITS ---
STUDY: X-RAY CHEST REASON FOR EXAM: Female, 55 years old. cough TECHNIQUE: AP portable COMPARISON: None. FINDINGS: There are patchy areas of increased density in the lower lobes bilaterally and right upper lobe with interstitial thickening which may be consistent with Covid 19 pneumonia.. There is no demonstrated pleural abnormality. Normal size heart. Normal mediastinum and matthieu. Normal visualized pulmonary arteries. Mildly calcified aortic arch and descending thoracic aorta. Normal visualized thoracic spine. Normal visualized ribs, clavicles, and shoulders. There is no demonstrated abnormality of the visualized soft tissue structures of the upper abdomen. RAD/Chest 1 View (Portable) IMPRESSION: Findings consistent with Covid 19 pneumonia Electronically Signed: Juan Clancy MD at 18:36 EDT , Service support ,
[2021-04-06 18:19] LABS: Bacteria 0 SEEN /hpf (None Seen); Mucous, Urine 0 SEEN /hpf (<or=2+); Red Blood Cells-Urine 0 SEEN /hpf (0-5)
[2021-04-06 18:21] LABS: Color, Urine Yellow (Yellow); Glucose, Dipstick 50 mg/dl (Normal); Leukocyte Esterase-Dipstick 25 /ul (Negative); Nitrite-Dipstick Negative (Negative); Occult Blood-Urine 10 /ul (Negative); Protein-Dipstick 100 mg/dl (Negative); Urine Bilirubin Dipstick Negative (Negative); Urine Clarity Sl. Cloudy (Clear); Urine Urobilinogen 4 mg/dl (Normal); Urine pH 6.5 (5.0 - 8.0)
[2021-04-06 18:38] LABS: Ketone-Dipstick 150 mg/dl (Negative)
[2021-04-06 18:47] LABS: Squamous Epithelial Cells - UA 0-5 SEEN /hpf (5-10); White Blood Cells 0-5 SEEN /hpf (0-5)
[2021-04-06 19:00] VITALS: BP 152/85; PULSE 96; RESP 19; O2SAT 96
[2021-04-06 20:43] VITALS: BP 159/90; PULSE 91; RESP 19; O2SAT 98
== END 2021-04-06 20:44 | disposition home or self-care (01) ==
PROVIDERS: Emergency Provider Student in an Organized Health Care Education/Training Program; PCP Student in an Organized Health Care Education/Training Program
DX: R11.2 Nausea with vomiting, unspecified (principal); R33.9 Retention of urine, unspecified; U07.1 COVID-19; E78.5 Hyperlipidemia, unspecified; K21.9 Gastro-esophageal reflux disease without esophagitis; I10 Essential (primary) hypertension; E66.9 Obesity, unspecified; E11.42 Type 2 diabetes mellitus with diabetic polyneuropathy; Z79.4 Long term (current) use of insulin; Z79.899 Other long term (current) drug therapy
CPT/HCPCS: 71045; 74177; 80053; 81001; 83690; 85025; 96360; 99283; J7030; J7040; Q9967; A4216

== ENCOUNTER → 2022-12-06 | Outpatient (CLI) | payer MEDICAID, SELFPAY ==
--- NOTE | 2022-12-06 07:24 | US_ITS ---
STUDY: ABDOMINAL ULTRASOUND - RIGHT UPPER QUADRANT; ELASTOGRAPHY REASON FOR VISIT: Female, 57 years old. Fatty infiltration of the liver. TECHNIQUE: Ultrasound evaluation of the right upper quadrant was performed with real-time and static dubose-scale imaging. Point quantification shear wave elastography was performed ([place].). TECHNICAL QUALITY: Adequate. COMPARISON: Comparison is made with prior examination of January 13, 2019. FINDINGS: Liver: The liver measures 16 cm. There is increased echogenicity consistent with fatty infiltration. The bile ducts are within normal limits. There is hepatic color flow. The direction of portal flow is hepatopetal. There is no demonstrated mass lesion. Median liver stiffness measured 8.3 kPa. Gallbladder: Normal distended gallbladder. The gallbladder wall measures 1.6 mm. There is a negative sonographic Alvarez''s sign. There is no pericholecystic fluid. There are no gallstones. Common Bile Duct (C.B.D.): The common bile duct measures 3.4 mm. Pancreas: There is normal echogenicity of the visualized pancreas. There is no demonstrated pancreatic mass or cyst. The tail portion of the pancreas is obscured due to overlying bowel gas. Right Kidney: Normal size of the right kidney. The right kidney measures 12.5 cm x 7.4 cm x 4.3 cm. Normal renal cortex. The right cortex measures 1.7 cm. There is no demonstrated renal mass or cyst. There is no right hydronephrosis. US/ABD Limited w/ Elastography IMPRESSION: 1. Liver stiffness measures 8.3 kPa compatible with F2-F3 (Mild to moderate liver fibrosis) Metavir score. Electronically Signed: Sourav Gilman MD at 14:14 EDT ,
== END | disposition home or self-care (01) ==
LOC: US 07:23
PROVIDERS: PCP Student in an Organized Health Care Education/Training Program; Referring Provider Nurse Practitioner Family; Visit Provider Nurse Practitioner Family
DX: K76.0 Fatty (change of) liver, not elsewhere classified (principal)
CPT/HCPCS: 76705; 76981

== ENCOUNTER 2025-02-22 16:28 | Inpatient (IN) | payer OTHER, SELFPAY ==
[2025-02-22] VITALS (7 sets, daily range): BP systolic 129–163; BP diastolic 87–98; PULSE 106–124; RESP 18–22; TEMP 36.4–36.8; O2SAT 87–96; BMI 32.4; BMI 31.7
--- NOTE | 2025-02-22 17:28 | EKG12_ITS ---
Test Reason : CP Blood Pressure : */* mmHG Vent. Rate : 110 BPM Atrial Rate : 110 BPM P-R Int : 156 ms QRS Dur : 84 ms QT Int : 344 ms P-R-T Axes : 60 0 110 degrees QTcB Int : 465 ms Sinus tachycardia Possible Left atrial enlargement Left ventricular hypertrophy with repolarization abnormality ( R in aVL ) Inferior infarct , age undetermined Abnormal ECG Confirmed by DIANELYS DELACRUZ, FAIHT ([id number]), order editor REGGIE SHEARER ([id number]) on 02/24/2025 7:34:59 AM Referred By: JACK/OLGA Confirmed By: FAITH IVORY MD
--- NOTE | 2025-02-22 17:36 | EDS_ITS ---
HPI History of Present Illness Chief Complaint: Chest Pain Informant: patient and EMS Narrative Narrative: 59-year-old female was sent from the PCPs office at [facility] due to the patient having intermittent chest pain for 1 week that she states occurs after meals and if she lies down it feels heavy, resolving if she sits up. She states she has been getting epigastric discomfort with this as well after meals, this occurs 20 minutes after eating most meals. She determined that she can eat chicken noodle soup without getting the chest discomfort. She states separate from this, she feels like she has a productive cough and some wheezing for also about the past week that she feels like may be pneumonia which is why she went to the doctor today hoping to get a chest x-ray. She denies any fevers or chills. She does have a history of asthma, she has albuterol inhaler at home and she has been using it, having some temporary relief of wheezing after using it. She has some chronic leg swelling that is similar right now. No history of heart problems but she was sent here because they thought I was having a heart attack. [facility] Medical History (Updated 02/22/25 @ 20:[address] John Catherine MD) Dyslipidemia Trigger ring finger of left hand Obesity Essential hypertension GERD (gastroesophageal reflux disease) Low HDL (under 40) Incisional hernia without obstruction or gangrene Unspecified hereditary and idiopathic peripheral neuropathy Type 2 diabetes mellitus with polyneuropathy Kidney stones Blood clot in vein Hx: UTI (urinary tract infection) Home Medications ?Medication ?Instructions ?Recorded ?Last Taken ?Type albuterol sulfate 90 mcg/actuation 2 puff inhalation Q 4H PRN PRN 04/08/14 04/08/14 02:30 History aerosol inhaler Wheezing calcium 315 mg (as 1 tab PO DAILY 04/08/1403/22 22:00 History citrate)-vitamin D3 6.25 mcg (250 2 ta b unit) tablet lisinopril 10 mg tablet 1 tab PO DAILY 04/07/1703/22 08:00 History 1 tab magnesium citrate 150 ml PO Q6H PRN PRN Consti pation 01/22/19 Unknown Rx #300 mL albuterol sulfate 2.5 mg/3 mL 2.5 mg inhalation Q4H GA N 05/11/19 Unknown History (0.083 %) solution for nebulization shortness of breat h or wheezing alcohol swabs (BD Alcohol Swabs) See Rx Instructions t opical 05/11/19 Unknown History .COMPLEX aspirin 81 mg tablet,delayed 81 mg PO DAILY 05/11/19 U nknown History release (Adult Low Dose Aspirin) atorvastatin 40 mg tablet 40 mg PO DAILY 05/11/19 Unkn own History blood sugar diagnostic (FreeStyle #10 ea 05/11/19 Unkn own History Lite Strips) blood-glucose meter (FreeStyle #1 ea 05/11/19 Unknown History Lite Meter kit) clotrimazole-betamethasone 1 1 applic topical BID 04/22 08/09 Unknown History %-0.05 % topical cream (Lotrisone) famotidine 20 mg tablet 20 mg PO BID 05/11/19 Unknow n History glucose 4 gram chewable tablet 16 g PO Q15M PRN Unknown History insulin degludec 100 unit/mL (3 112 unit subcut QHS Unknown History mL) subcutaneous pen (Tresiba FlexTouch U-100 insulin) lancets 30 gauge (Unilet Super #25 ea 05/11/19 Unknown History Thin Lancets) mupirocin 2 % topical ointment 1 applic topical BID Unknown History pen needle, diabetic 31 gauge x #30 ea 05/11/19 Unknow n History 3 (1st Tier Unifine Pentips) polyethylene glycol 3350 17 17 g PO BID 05/11/19 Unkno wn History gram/dose oral powder (Miralax) flash glucose sensor (FreeStyle #2 ea 02/26/20 Unknown Rx Michi 14 Day Sensor kit) insulin aspart U-100 100 unit/mL 20 unit (0.2 mL) subc ut TID #24 mL 04/05/20 Unknown Rx (3 mL) subcutaneous pen (Novolog FlexPen U-100 Insulin aspart) metformin 1,000 mg tablet 1,000 mg PO DAILY 02/06/21 U nknown History cyanocobalamin (vitamin B-12) 2,000 mcg PO DAILY 02/22 Unknown History 1,000 mcg tablet,extended release dulaglutide 4.5 mg/0.5 mL 4.5 mg subcut QWEEK 02/22/25 Unknown History subcutaneous pen injector (Trulicity) empagliflozin 10 mg tablet 25 mg PO BREAKFAST 02/22/25 Unknown History (Jardiance) fluoxetine 20 mg capsule 20 mg PO DAILY 02/22/25 Unkn own History gabapentin 100 mg capsule 100 mg PO QHS 02/22/25 Unkno wn History levalbuterol tartrate 45 2 inh inhalation Q4H PRN lui rtness 02/22/25 Unknown History mcg/actuation aerosol inhaler of breath or wheezing (Xopenex HFA) Allergy/AdvReac Type Severity Reaction Status Date / Time tramadol Allergy Hives Verified 02/22/25 16:32 albuterol sulfate (From AdvReac Vomiting Verified 02/22/25 16:32 Proventil HFA) ammonium lactate (From AdvReac Other Verified 02/22/25 16:32 Lac-Hydrin) phentermine HCl (From AdvReac Chest Verified 02/22/25 16:32 Adipex-P) tightness Family History Uncle Cancer Sister Diabetes Social History Smoking Status: Never smoker alcohol intake: never substance use type: does not use ROS ROS ED Constitutional Constitutional ED: Denies chills or fever(s) Eyes Eyes: Denies change in vision or diplopia ENT ENT ED: Denies rhinorrhea or sore throat Cardiovascular Cardiovascular: Reports as per HPI, chest pain and leg edema; Denies orthopnea, palpitations or paroxysmal nocturnal dyspnea Respiratory/Chest Respiratory/Chest: Reports cough, dyspnea and sputum; Denies orthopnea or paroxysmal nocturnal dyspnea Gastrointestinal Gastrointestinal: Reports abdominal pain; Denies diarrhea, nausea or vomiting Genitourinary Genitourinary ED: Denies dysuria or hematuria Musculoskeletal Musculoskeletal: Denies back pain or neck pain Integumentary Denies abscess or rash Neurologic Neurologic: Denies headache(s), paresthesias or weakness Psychiatric Psychiatric: Denies anxiety or suicidal thoughts EXAM Physical Exam Const Vital Signs: 02/22/25 16:31 02/22/25 17:54 02/22/25 18:07 Temperature 98.3 F Temperature Source Oral Pulse Rate 106 H 113 H Respiratory Rate 19 H 18 Blood Pressure 146/98 H Blood Pressure Mean 114 Pulse Ox 96 94 Oxygen Delivery Method Room Air Room Air Oxygen Flow Rate (L/min) 02/22/25 18:07 02/22/25 19:03 02/22/25 19:56 Temperature Temperature Source Pulse Rate 120 H 120 H 116 H Respiratory Rate 19 H 18 22 H Blood Pressure 129/87 H 132/93 H Blood Pressure Mean 101 106 Pulse Ox 94 95 87 Oxygen Delivery Method Room Air Room Air Room Air Oxygen Flow Rate (L/min) 02/22/25 19:56 Temperature Temperature Source Pulse Rate Respiratory Rate Blood Pressure Blood Pressure Mean Pulse Ox 93 Oxygen Delivery Method Nasal Cannula Oxygen Flow Rate (L/min) 2 Positive well nourished and well developed General Appearance ED: well developed and NAD HEENT Reports moist mucous membranes normocephalic and atraumatic Eyes PERRL and EOMs intact bilaterally Neck full ROM and supple Chest Wall inspection of chest normal Chest Narrative: mild diffuse chest wall tenderness Chest: tenderness Resp normal respiratory effort and clear to auscultation bilaterally Cardio regular rate, regular rhythm and no murmurs GI non-distended GI Narrative: Epigastric tenderness without pulsatile mass, guarding, rebound tenderness. Auscultation: normoactive bowel sounds Palpation: soft Back/Spine no CVA tenderness General Back: other FROM Extremity normal to inspection General Extremety ED: Yes edema; Negative for pulses abnormal or tenderness General Extremity: edema bilateral lower extremity Details: mild; Negative for pulses abnormal Neuro oriented x3, CN's II-XII intact bilaterally and no sensory deficits noted Sensorium / Orientation: awake and alert Motor Exam: strength 5/5 throughout Psych mental status grossly normal Skin no rashes or lesions noted and no wounds Heart Score History: Slightly/Non-Suspicious ECG: Nonspecific Repolarization Age: >45 - <65 years Risk Factors: >/= 3 Risk Factors or History of CAD Troponin: >/=3 x Normal Limit Score: 6 MDM MDM MDM Narrative Medical decision making narrative: Patient was given a GI cocktail for what sounds more like noncardiac discomfort, as well as Zofran and an albuterol treatment, however she vomited up the GI cocktail and as a result had to abort the majority of the albuterol treatment. While I was observing her, her oxygen saturations went down to 87% on room air while resting, so we placed 2 L nasal cannula on her. 2 view chest x-ray my interpretation shows bilateral lower lobe infiltrates, radiology in agreement. This could be CHF, could be infectious, she has symptoms compatible with pneumonia but also possibly CHF, and her renal function is normal but elevated troponins, trending down, as well as elevated proBNP. She does not have a significant leukocytosis to suggest this is all infectious although I am covering her anyway with Rocephin and Zithromax. Discussed with hospitalist, my suspicion is that this is a type II DE as opposed to a primary vascular problem, but with that being said she is high risk with obesity, hypertension, type 2 diabetes that apparently is uncontrolled, and she is a heavy smoker. Giving her a dose of Lasix. As I expect that we will help with the x-ray findings and her tachycardia and hypoxemia. History & Record Review Additional record(s) reviewed:: Prior labs (prior echo 2018) Lab Data Attestation: I reviewed the patient's lab results. Labs: Laboratory Results - last 24 hr 02/22/25 02/22/25 17:45 19:24 WBC 7.8 RBC 4.29 Hgb 13.3 Hct 38.3 MCV 89.3 MCH 31.0 MCHC 34.7 RDW Std Deviation 39.5 RDW Coeff of Brett 12.2 Plt Count 278 MPV 10.0 Immature Gran % (Auto) 0.400 Neut % (Auto) 48.8 Lymph % (Auto) 37.3 [place] % (Auto) 11.0 H Eos % (Auto) 1.7 Baso % (Auto) 0.8 Absolute Neuts (auto) 3.8 Absolute Lymphs (auto) 2.92 Nucleated RBC % 0 Sodium 139 Potassium 3.6 Chloride 103 Carbon Dioxide 24.0 Anion Gap 12 BUN 9 Creatinine 0.57 L Estim Creat Clear Calc 127.95 Est GFR (MDRD) Non-Af 104 BUN/Creatinine Ratio 15.5 Glucose 270 H Calcium 9.3 Troponin T High Sens 181 H* Troponin T Hi Sens 2 Hr 160 H* NT pro BNP II 3685 H Radiography Diagnostic Testing: Clinical Impression(s) from Imaging Studies Chest X-Ray 02/22/25 18:16 IMPRESSION: Bilateral coarse reticular airspace opacities, which may reflect interstitial fibrotic lung changes, interstitial edema, or possibly atypical/viral infection in the appropriate clinical context. Reading Location: [id number] Rhythm Strip Rhythm Strip: Sinus Tach Rate: 110 Ectopy: None EKG Initial EKG: Attestation: I personally reviewed and interpreted this EKG as follows: Interpretation: No Acute Injury Pattern and Sinus Tachycardia Comments: Voltage consistent with LVH. Nonspecific ST-T wave abnormalities lateral and inferior limb leads. Q waves 3, aVF new compared with prior in 2019 Prior EKG tracings: available for review Prior: Changed Management Discussion w/another healthcare provider: Hospitalist Treatment and Re-Evaluation Comments:: Aspirin x 4 given prior to arrival Discharge Plan Triage Chief Complaint: Chest Pain ED Provider: John Catherine Dx/Rx/DC Orders Clinical Impression: Acute CHF, Elevated troponin, Hypoxemia, Acute cough, Chest pain Prescriptions: No Action albuterol sulfate 2.5 mg /3 mL (0.083 %) solution for nebulization 2.5 mg INHALATION Q4H PRN alcohol swabs [BD Alcohol Swabs] Pads, Medicated See Rx Instructions TOPICAL .COMPLEX Rx Instructions: TOPICAL use 4-5 x qd to check BG and with insulin injections; aspirin [Adult Low Dose Aspirin] 81 mg tablet,delayed release (DR/EC) 81 mg PO DAILY atorvastatin 40 mg tablet 40 mg PO DAILY (DME) FreeStyle Lite Strips Strip See Rx Instructions .ROUTE .MEDSUPPLY Qty: 10 Rx Instructions: use to check BG tid (DME) blood-glucose meter [FreeStyle Lite Meter] Kit See Rx Instructions .ROUTE .MEDSUPPLY Qty: 1 Rx Instructions: As directed clotrimazole-betamethasone [Lotrisone] 1-0.05 % cream 1 applic TOPICAL BID (DME) pen needle, diabetic [1st Tier Unifine Pentips] 31 gauge x 3/16 needle See Rx Instructions .ROUTE .MEDSUPPLY Qty: 30 Rx Instructions: use 4 x qd to inject insulin famotidine 20 mg tablet 20 mg PO BID glucose 4 gram tablet,chewable 16 g PO Q15M PRN Tresiba FlexTouch U-100 100 unit/mL (3 mL) insulin pen 70 unit SC QHS mupirocin 2 % ointment 1 applic TOPICAL BID polyethylene glycol 3350 [Miralax] 17 gram/dose powder 17 g PO BID (DME) lancets [Unilet Super Thin Lancets] 30 gauge misc See Rx Instructions .ROUTE .MEDSUPPLY Qty: 25 Rx Instructions: use to check BG 1 x qd urea 40 % cream 1 applic TOPICAL BID (DME) FreeStyle Michi 14 Day Sensor Kit See Rx Instructions .ROUTE .MEDSUPPLY Qty: 2 6RF Rx Instructions: As directed metformin 1,000 mg tablet 1,000 mg PO DAILY albuterol sulfate 1 INHALER inhaler 2 puff inhalation Q4H PRN PRN (Reason: Wheezing) Patient Comments: ASTHMA calcium citrate-vitamin D3 1 EACH tablet 2 tab PO BID Patient Comments: SUPPLEMENT lisinopril 10 MG tablet 1 tab PO DAILY Patient Comments: TAKE 1 TABLET EVERY DAY promethazine 25 MG tablet 25 mg PO Q6H PRN PRN (Reason: Nausea) Qty: 10 0RF magnesium citrate 300 ML solution 150 ml PO Q6H PRN PRN (Reason: Constipation) Qty: 300 0RF ondansetron 4 mg tablet,disintegrating 4 mg PO Q8H PRN PRN (Reason: Nausea) Qty: 14 0RF Novolog FlexPen U-100 Insulin 100 unit/mL (3 mL) insulin pen 20 unit SC TID MDD 80 Qty: 24 4RF Rx Instructions: plus sliding scale Primary Care Provider: Jese Zheng Referrals: Jese Zheng DO [Primary Care Provider] - Print Language: Romanian Disposition Disposition: Acute Care Hospital [facility]
[2025-02-22] MEDS: Albuterol 2.5 MG/3 ML VIAL.NEB. INHALATION (17:48)
[2025-02-22 18:00] LABS: Hematocrit 38.3 % (37-47); Hemoglobin 13.3 g/dL (12.0-15.0); Immature Granulocytes Count 0.030 X10^3/uL (0.0-0.0); Mean Corp Hgb Conc 34.7 g/dL (32-36); Mean Corpuscular Volume 89.3 fL (81-99); Mean Platelet Vol. 10.0 fl (6.2-12.0); NRBC Flagged by Analyzer 0 % (0-5); Platelet Count 278 K/mm3 (150-450); RBC Distribution Width CV 12.2 % (11.6-14.6); RBC Distribution Width SD 39.5 fl (35.1-43.9); Red Blood Count 4.29 M/mm3 (4.2-5.4); White Blood Count 7.8 K/mm3 (4.4-11.0)
[2025-02-22] MEDS: Lidocaine 2% Viscous15 ML UDC 15 ML PO (18:06)
--- NOTE | 2025-02-22 18:16 | RAD_ITS ---
PROCEDURE: CHEST PA AND LATERAL 02/22/2025 REASON FOR EXAM: CHEST PAIN, PROD COUGH, SOB TECHNIQUE: CHEST PA AND LATERAL COMPARISON: 04/06/2021 FINDINGS: Lungs/Pleura: Coarse reticular airspace opacities in the bilateral mid to lower lung zones may represent interstitial/fibrotic lung disease, versus interstitial pulmonary edema, or possibly atypical/viral infection. No perihilar edema. No pneumothorax or pleural effusions. Heart/Mediastinum: Within normal limits. Calcification of the aortic arch. Bones/Soft tissues: Mild degenerative changes of the spine. Trace calcific tendinosis of bilateral shoulder rotator cuffs.. RAD/Chest PA and Lateral IMPRESSION: Bilateral coarse reticular airspace opacities, which may reflect interstitial f ibrotic lung changes, interstitial edema, or possibly atypical/viral infection in the appropriate clinical context. Reading Location: [id number]
[2025-02-22 18:48] LABS: Anion Gap 12 (5-15); BUN 9 mg/dL (4-19); BUN/Creat Ratio 15.5 RATIO (10-20); Calcium,Total 9.3 mg/dL (7.6-11.0); Carbon Dioxide 24.0 mmol/L (21.0-32.0); Chloride 103 mmol/L (98-108); Estimated Creatinine Clearance 127.95 ml/min (50-250); Glucose 270 mg/dL (70-99); Potassium 3.6 mmol/L (3.3-5.1)
[2025-02-22 19:08] LABS: Troponin T High Sensitivity 181 ng/L (<=14)
[2025-02-22 19:40] LABS: Pro- Brain NATRIURETIC PEPTIDE 3685 pg/mL (<=900)
[2025-02-22 20:04] LABS: Troponin T High Sens 2 HR 160 ng/L (<=14)
--- NOTE | 2025-02-22 20:09 | PCM.HP.STD ---
HPI - General General Date of Admission: 02/22/25 Date of Service: 02/22/25 Chief Complaint: Chest pain HPI Narrative LISA GOTTI, is a 59 F who presents to the emergency department with a chief complaint of chest pain. Onset of symptoms began 1 week ago but it progressed and became worse associated with shortness of breath and cough. Patient states the pain gets worse after laying down or after eating as well. Patient has significant past medical history of diabetes and is a chronic smoker but denies strong family history of coronary artery disease. Pain is described as 7/10 mid sternal nonradiating chest pain that was alleviated the emergency room by nitroglycerin. Initially she was thought to have a GI symptoms and was given a GI cocktail that she actually vomited in the emergency department. Chest x-ray reveals possible pneumonia and she is requiring oxygen to maintain her saturation greater than 90%. Antibiotics for community-acquired pneumonia were initiated in the emergency room. Troponin was also elevated 181 and her BN TP was elevated at 3685. She will be admitted to the progressive care unit and will obtain a cardiology consult for possible heart catheterization and echocardiogram will be ordered as well. [facility] Medical History (Updated 02/22/25 @ 20:[address] John Catherine MD) Dyslipidemia Trigger ring finger of left hand Obesity Essential hypertension GERD (gastroesophageal reflux disease) Low HDL (under 40) Incisional hernia without obstruction or gangrene Unspecified hereditary and idiopathic peripheral neuropathy Type 2 diabetes mellitus with polyneuropathy Kidney stones Blood clot in vein Hx: UTI (urinary tract infection) Home Medications ?Medication ?Instructions ?Recorded ?Last Taken ?Type albuterol sulfate 90 mcg/actuation 2 puff inhalation Q4H PRN PRN 04/08/14 04/08/14 02:30 History aerosol inhaler Wheezing calcium 315 mg (as 1 tab PO DAILY 04/08/14 04/05/17 22:00 History citrate)-vitamin D3 6.25 mcg (250 2 tab unit) tablet lisinopril 10 mg tablet 1 tab PO DAILY 04/07/17 04/05/17 08:00 History 1 tab magnesium citrate 150 ml PO Q6H PRN PRN Constipation 01/22/19 Unknown Rx #300 mL albuterol sulfate 2.5 mg/3 mL 2.5 mg inhalation Q4H PRN 05/11/19 Unknown History (0.083 %) solution for nebulization shortness of breath or wheezing alcohol swabs (BD Alcohol Swabs) See Rx Instructions topical 05/11/19 Unknown History .COMPLEX aspirin 81 mg tablet,delayed 81 mg PO DAILY 05/11/19 Unknown History release (Adult Low Dose Aspirin) atorvastatin 40 mg tablet 40 mg PO DAILY 05/11/19 Unknown History blood sugar diagnostic (FreeStyle #10 ea 05/11/19 Unknown History Lite Strips) blood-glucose meter (FreeStyle #1 ea 05/11/19 Unknown History Lite Meter kit) clotrimazole-betamethasone 1 1 applic topical BID 05/11/19 Unknown History %-0.05 % topical cream (Lotrisone) famotidine 20 mg tablet 20 mg PO BID 05/11/19 Unknown History glucose 4 gram chewable tablet 16 g PO Q15M PRN 05/11/19 Unknown History insulin degludec 100 unit/mL (3 112 unit subcut QHS 05/11/19 Unknown History mL) subcutaneous pen (Tresiba FlexTouch U-100 insulin) lancets 30 gauge (Unilet Super #25 ea 05/11/19 Unknown History Thin Lancets) mupirocin 2 % topical ointment 1 applic topical BID 05/11/19 Unknown History pen needle, diabetic 31 gauge x #30 ea 05/11/19 Unknown History 3/16 (1st Tier Unifine Pentips) polyethylene glycol 3350 17 17 g PO BID 05/11/19 Unknown History gram/dose oral powder (Miralax) flash glucose sensor (FreeStyle #2 ea 02/26/20 Unknown Rx Michi 14 Day Sensor kit) insulin aspart U-100 100 unit/mL 20 unit (0.2 mL) subcut TID #24 mL 04/05/20 Unknown Rx (3 mL) subcutaneous pen (Novolog FlexPen U-100 Insulin aspart) metformin 1,000 mg tablet 1,000 mg PO DAILY 02/06/21 Unknown History cyanocobalamin (vitamin B-12) 2,000 mcg PO DAILY 02/22/25 Unknown History 1,000 mcg tablet,extended release dulaglutide 4.5 mg/0.5 mL 4.5 mg subcut QWEEK 02/22/25 Unknown History subcutaneous pen injector (Trulicity) empagliflozin 10 mg tablet 25 mg PO BREAKFAST 02/22/25 Unknown History (Jardiance) fluoxetine 20 mg capsule 20 mg PO DAILY 02/22/25 Unknown History gabapentin 100 mg capsule 100 mg PO QHS 02/22/25 Unknown History levalbuterol tartrate 45 2 inh inhalation Q4H PRN shortness 02/22/25 Unknown History mcg/actuation aerosol inhaler of breath or wheezing (Xopenex HFA) Allergy/AdvReac Type Severity Reaction Status Date / Time tramadol Allergy Hives Verified 02/22/25 16:32 albuterol sulfate (From AdvReac Vomiting Verified 02/22/25 16:32 Proventil HFA) ammonium lactate (From AdvReac Other Verified 02/22/25 16:32 Lac-Hydrin) phentermine HCl (From AdvReac Chest Verified 02/22/25 16:32 Adipex-P) tightness Family History Uncle Cancer Sister Diabetes Social History Smoking Status: Never smoker alcohol intake: never substance use type: does not use ROS Constitutional Constitutional: Denies chills or fever(s) Eyes Eyes: Denies change in vision ENT HEENT: Denies abnormal hearing Cardiovascular Cardiovascular: Reports chest pain; Denies edema Respiratory/Chest Respiratory/Chest: Reports cough and shortness of breath with exertion; Denies wheezing Gastrointestinal Gastrointestinal: Reports abdominal pain, nausea and vomiting Genitourinary Genitourinary: Denies dysuria Musculoskeletal Musculoskeletal: Reports back pain Integumentary Integumentary: Denies dry skin Neurologic Neurologic: Denies confusion or dizziness Psychiatric Psychiatric: Denies anxiety Vital Signs Vital Signs Vital Signs: 02/22/25 16:31 02/22/25 17:54 02/22/25 18:07 Temperature 98.3 F Temperature Source Oral Pulse Rate 106 H 113 H Respiratory Rate 19 H 18 Blood Pressure 146/98 H Blood Pressure Mean 114 Pulse Ox 96 94 Oxygen Delivery Method Room Air Room Air Oxygen Flow Rate (L/min) 02/22/25 18:07 02/22/25 19:03 02/22/25 19:56 Temperature Temperature Source Pulse Rate 120 H 120 H 116 H Respiratory Rate 19 H 18 22 H Blood Pressure 129/87 H 132/93 H Blood Pressure Mean 101 106 Pulse Ox 94 95 87 Oxygen Delivery Method Room Air Room Air Room Air Oxygen Flow Rate (L/min) 02/22/25 19:56 Temperature Temperature Source Pulse Rate Respiratory Rate Blood Pressure Blood Pressure Mean Pulse Ox 93 Oxygen Delivery Method Nasal Cannula Oxygen Flow Rate (L/min) 2 Weight Weight: 214 lb 4.629 oz Body Mass Index (BMI) 32.4 Physical Exam Const alert and oriented x3 General Appearance: cooperative and well developed HEENT normocephalic Eyes PERRL Neck no lymphadenopathy Lymph Lymphatic: no lymphadenopathy noted Resp normal respiratory effort, normal air movement and clear to auscultation bilaterally Cardio regular rhythm, S1 normal heart sound, S2 normal heart sound, no murmurs, no rub and no gallops Rate: tachycardic GI normal to inspection, nondistended, normoactive bowel sounds and non-tender Extremity normal capillary refill Skin General Skin Exam: turgor normal Neuro no focal motor deficits and no sensory deficits noted Psych thought process normal, cooperative and affect normal Results Lab / Micro Data 02/22/25 17:45 02/22/25 17:45 Labs: Laboratory Results - last 24 hr 02/22/25 17:45: WBC 7.8, RBC 4.29, Hgb 13.3, Hct 38.3, MCV 89.3, MCH 31.0, MCHC 34.7, RDW Std Deviation 39.5, RDW Coeff of Brett 12.2, Plt Count 278, MPV 10.0, Immature Gran % (Auto) 0.400, Neut % (Auto) 48.8, Lymph % (Auto) 37.3, [place] % (Auto) 11.0 H, Eos % (Auto) 1.7, Baso % (Auto) 0.8, Absolute Neuts (auto) 3.8, Absolute Lymphs (auto) 2.92, Nucleated RBC % 0, Sodium 139, Potassium 3.6, Chloride 103, Carbon Dioxide 24.0, Anion Gap 12, BUN 9, Creatinine 0.57 L, Estim Creat Clear Calc 127.95, Est GFR (MDRD) Non-Af 104, BUN/Creatinine Ratio 15.5, Glucose 270 H, Calcium 9.3, Troponin T High Sens 181 H*, NT pro BNP II 3685 H 02/22/25 19:24: Troponin T Hi Sens 2 Hr 160 H* Rhythm Strip Rhythm Strip: Sinus Tach Rate: 110 Ectopy: None Imaging Radiology Impression Chest X-Ray 02/22/25 18:16 IMPRESSION: Bilateral coarse reticular airspace opacities, which may reflect interstitial fibrotic lung changes, interstitial edema, or possibly atypical/viral infection in the appropriate clinical context. Reading Location: [facility] Assessment & Plan Assessment/Plan (1) Chest pain: (2) Hypoxemia: (3) Elevated troponin: (4) Acute CHF: (5) Acute cough: PLAN: Plan 1 acute cough, hypoxemia?community-acquired pneumonia suspected based on preliminary chest x-ray evaluation by emergency room physician?will continue Rocephin and azithromycin initiated in the emergency room, and oxygen per routine protocol to maintain saturation greater than 90%. Due to concurrent NSTEMI and congestive heart failure we will hold albuterol at this time 2. NSTEMI?consult delivery supervisor Dr Montero. Continue to cycle cardiac enzymes, will add oxygen, nitroglycerin as needed for pain and aspirin. Pain seems to be relatively controlled at this time. Will make patient n.p.o. at midnight 3. Congestive heart failure?will get echocardiogram 4. Diabetes?will add sliding scale insulin and will adjust accordingly 5. Smoking?cessation strongly encouraged 6. DVT prophylaxis?low molecular weight heparin Charges/Coding Visit Charges Inpatient E&M: 82830 Init Hosp L2
--- NOTE | 2025-02-22 20:34 | CASEMGMT ---
Care Management Face to Face with patient for initial transition planning/care coordination assessment in the ED. This data analyst report writer introduced self and role at [facility]. Patient alert and oriented. Patient willing to participate in assessment and is able to answer all questions appropriately. Care providers, pharmacy, and demographics verified. Admitting Diagnosis: Chest pain, Hypoxemia, Elevated troponin, Acute CHF Other diagnosis history: Dyslipidemia, Essential hypertension, GERD PCP: Norm Specialists: James, surgeon at [facility]. Preferred Pharmacy: [facility] Insurance: Saen Prescription Benefit: yes Living Will/HPOA: no, but would like information during admission (possible completion) LNOK: mother, Joselyn. Son, Young. Daughter, Miranda. Living Arrangements: lives with 2 daughters (10 and 11yo) in a 1 story home. 3 steps to enter from the porch; 1 step to enter from garage. Independent at baseline with all ADLs/IADLs. Transportation: patient drives DME: grab bars (wearing O2 in the ED to maintain) HHC: none SNF/Rehab: none Community Resources: none Behavioral Health History: Patient goals: Patient wishes to discharge home, denies need for home health care at this time. Patient denies any further needs or concerns at this time. Disposition Plan: admission to acute; RN CM/SW to follow for discharge planning needs that may arise. Zulma Tate, INSOLE CHANNELER, [employer] DIRECTOR
[2025-02-22] MEDS: Azithromycin 500 MG in 0.9% Normal Saline (250mL Bag) 250 ML 255 MG IV (22:08)
[2025-02-22] MEDS: 0.9% Saline Lock 10 ML Syringe IV (22:56)
[2025-02-23] VITALS (16 sets, daily range): BP systolic 98–168; BP diastolic 58–107; PULSE 85–103; RESP 12–23; TEMP 36.4–36.8; O2SAT 92–100
[2025-02-23 00:09] LABS: Troponin T High Sens 4 HR 164 ng/L (<=14)
[2025-02-23] MEDS: 0.9% Saline Lock 10 ML Syringe IV ×5 (00:11→21:44)
[2025-02-23 05:07] LABS: Hematocrit 36.7 % (37-47); Hemoglobin 12.6 g/dL (12.0-15.0); Immature Granulocytes Count 0.020 X10^3/uL (0.0-0.0); Mean Corp Hgb Conc 34.3 g/dL (32-36); Mean Corpuscular Volume 89.1 fL (81-99); Mean Platelet Vol. 10.2 fl (6.2-12.0); NRBC Flagged by Analyzer 0 % (0-5); Platelet Count 269 K/mm3 (150-450); RBC Distribution Width CV 12.3 % (11.6-14.6); RBC Distribution Width SD 39.6 fl (35.1-43.9); Red Blood Count 4.12 M/mm3 (4.2-5.4); White Blood Count 8.5 K/mm3 (4.4-11.0)
[2025-02-23 05:08] LABS: Prothrombin Time (Protime)PT. 13.6 SECONDS (11.7-14.9)
[2025-02-23 05:53] LABS: Anion Gap 13 (5-15); BUN 12 mg/dL (4-19); BUN/Creat Ratio 17.5 RATIO (10-20); Calcium,Total 9.0 mg/dL (7.6-11.0); Carbon Dioxide 23.6 mmol/L (21.0-32.0); Chloride 102 mmol/L (98-108); Estimated Creatinine Clearance 109.07 ml/min (50-250); Glucose 253 mg/dL (70-99); Magnesium 1.9 mg/dL (1.5-2.2); Potassium 3.5 mmol/L (3.3-5.1)
--- NOTE | 2025-02-23 05:55 | ECHOCS_ITS ---
Reason For Study Reason For Study: CHF Procedure This was a 2D Doppler, Color Flow transthoracic echocardiogram. Contrast injection was performed. Exam performed portable in ICU/CCU. Left Ventricle Normal LV size. Mild concentric left ventricular hypertrophy. The left ventricular ejection fraction is 35 %. Stage 2 diastolic dysfunction. There is moderate global hypokinesis of the left ventricle. Right Ventricle Normal RV size. Normal systolic function. Atria Normal left atrium. Normal right atrium. Mitral Valve Normal mitral valve. Mild-Moderate (1-2+) eccentric mitral valve insufficiency. Tricuspid Valve Normal tricuspid valve. Mild to moderate (1-2+) tricuspid valve insufficiency. Pulmonary artery systolic pressure is 35 mmHg. Aortic Valve Trisinus/trileaflet aortic valve. Mild (1+) aortic valve insufficiency. Pulmonic Valve Normal pulmonic valve. Great Vessels Normal aortic root. The pulmonary artery is normal size. Inferior vena cava collapse with sniff. The inferior vena cava is dilated. Pericardium/Pleural No pericardial effusion. Medication Diluted definity 1ml given slow IV push to enhance endocardial definition. MMode/2D Measurements & Calculations LVIDd: 5.0 cm IVSd: 1.2 cm Ao root diam: 3.5 cm LVIDs: 3.7 cm LVPWd: 1.2 cm RVDd: 4.1 cm FS: 26.5 % LAV(MOD-bp): 60.2 ml LVAd ap4: 35.1 cm2 LVAd ap2: 29.8 cm2 LAV(MOD-bp) Indexed: 29.0 ml/m2 LVLd ap4: 7.5 cm LVLd ap2: 6.9 cm LAV(MOD-sp2): 62.9 ml EDV(MOD-sp4): 133.8 ml EDV(MOD-sp2): 106.7 ml LAV(MOD-sp4): 53.0 ml EDV(sp4-el): 139.6 ml EDV(sp2-el): 109.7 ml LVAs ap4: 27.4 cm2 LVAs ap2: 24.4 cm2 LVLs ap4: 7.2 cm LVLs ap2: 6.5 cm ESV(MOD-sp4): 85.6 ml ESV(MOD-sp2): 74.8 ml ESV(sp4-el): 88.9 ml ESV(sp2-el): 78.3 ml EF(MOD-sp4): 36.1 % EF(MOD-sp2): 29.9 % EF(sp4-el): 36.3 % SV(MOD-sp4): 48.3 ml SV(MOD-sp2): 31.9 ml SV(sp4-el): 50.7 ml SI(MOD-sp4): 23.2 ml/m2 SI(MOD-sp2): 15.3 ml/m2 LA A4 area: 20.1 cm2 LA dimension(2D): 4.0 cm RA A4 area: 12.9 cm2 TAPSE: 2.0 cm Doppler Measurements & Calculations MV E max chu: 93.5 cm/sec Lat Peak E' Hcu: 6.9 cm/sec Med Peak E' Chu: 6.2 cm/sec MV A max chu: 58.4 cm/sec E/E' lat: 13.6 E/E' med: 15.0 MV E/A: 1.6 Ao V2 max: 147.5 cm/sec AI max chu: 393.0 cm/sec LV V1 max: 89.5 cm/sec Ao max P.7 mmHg AI max P.9 mmHg LV V1 max P.2 mmHg Ao V2 mean: 102.1 cm/sec Ao mean P.5 mmHg AI dec slope: 449.3 cm/sec2 Ao V2 VTI: 23.4 cm AI P1/2t: 256.2 msec PA V2 max: 61.9 cm/sec PI end-d chu: 145.6 cm/sec TR max chu: 280.2 cm/sec TR max P.4 mmHg ECHO/Echo Complete W/ Contrast Interpretation Summary Normal LV size. The left ventricular ejection fraction is 35 %. Stage 2 diastolic dysfunction. There is moderate global hypokinesis of the left ventricle. Mild concentric left ventricular hypertrophy. Contrast injection was performed. Ordering Physician: Denton Cook Referring Physician: Jese Zheng Performed By: Shanelle Roger RDCS, SARA
[2025-02-23] MEDS: Aspirin E.C. 81 MG Tablet PO (06:38)
--- NOTE | 2025-02-23 07:43 | PCM.PN.HOSP ---
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 She is awake and alert and oriented to time. Complains of horrible flank pain that causes her uncontrollable nausea. States has been going on for a few days but worse when she tries to lie flat and that is why she did not tolerate the cath table. Does have previous history of kidney stones. States she is having trouble getting comfortable in bed. Objective Data Objective Data Vital Signs: Vital Signs Temp Pulse Resp BP Pulse Ox O2 Del Method O2 Flow Rate 97.8 F 103 H 20 H 135/91 H 95 Nasal Cannula 2 02/23/25 06:00 02/23/25 06:00 02/23/25 06:00 02/23/25 06:00 02/23/25 06:00 02/23/25 06:00 02/23/25 06:00 Oxygen Flow Rate (L/min) 2 Oxygen Delivery Method Nasal Cannula Weight: 94.7 kg Body Mass Index (BMI) 31.7 Intake & Output: Intake and Output for Last 24 Hours 02/21/25 02/22/25 02/23/25 23:59 23:59 23:59 Intake Total 525 / 525 Balance 525 / 525 Lab / Micro Data 02/23/25 04:29 02/23/25 04:29 Labs: Laboratory Results - last 24 hr 02/22/25 17:45: WBC 7.8, RBC 4.29, Hgb 13.3, Hct 38.3, MCV 89.3, MCH 31.0, MCHC 34.7, RDW Std Deviation 39.5, RDW Coeff of Brett 12.2, Plt Count 278, MPV 10.0, Immature Gran % (Auto) 0.400, Neut % (Auto) 48.8, Lymph % (Auto) 37.3, [place] % (Auto) 11.0 H, Eos % (Auto) 1.7, Baso % (Auto) 0.8, Absolute Neuts (auto) 3.8, Absolute Lymphs (auto) 2.92, Nucleated RBC % 0, Sodium 139, Potassium 3.6, Chloride 103, Carbon Dioxide 24.0, Anion Gap 12, BUN 9, Creatinine 0.57 L, Estim Creat Clear Calc 127.95, Est GFR (MDRD) Non-Af 104, BUN/Creatinine Ratio 15.5, Glucose 270 H, Calcium 9.3, Troponin T High Sens 181 H*, NT pro BNP II 3685 H 02/22/25 19:24: Troponin T Hi Sens 2 Hr 160 H* 02/22/25 22:17: Troponin T Hi Sens 4Hr 164 H* 02/23/25 00:13: POC Glucose 373 H 02/23/25 04:29: WBC 8.5, RBC 4.12 L, Hgb 12.6, Hct 36.7 L, MCV 89.1, MCH 30.6, MCHC 34.3, RDW Std Deviation 39.6, RDW Coeff of Brett 12.3, Plt Count 269, MPV 10.2, Immature Gran % (Auto) 0.200, Neut % (Auto) 52.6, Lymph % (Auto) 32.5, [place] % (Auto) 12.7 H, Eos % (Auto) 1.3, Baso % (Auto) 0.7, Absolute Neuts (auto) 4.5, Absolute Lymphs (auto) 2.76, Nucleated RBC % 0, PT 13.6, INR 1.0, Sodium 138, Potassium 3.5, Chloride 102, Carbon Dioxide 23.6, Anion Gap 13, BUN 12, Creatinine 0.66 L, Estim Creat Clear Calc 109.07, Est GFR (MDRD) Non-Af 100, BUN/Creatinine Ratio 17.5, Glucose 253 H, Calcium 9.0, Phosphorus 3.0, Magnesium 1.9 02/23/25 05:55: POC Glucose 241 H Radiography Diagnostic Testing: Radiology Impression Chest X-Ray 02/22/25 18:16 IMPRESSION: Bilateral coarse reticular airspace opacities, which may reflect interstitial fibrotic lung changes, interstitial edema, or possibly atypical/viral infection in the appropriate clinical context. Reading Location: [facility] Rhythm Strip Rhythm Strip: Sinus Tach Rate: 110 Ectopy: None Physical Exam Const alert, oriented x3 and well nourished; Negative for no apparent distress or average body habitus Constitutional Narrative: Obese, upper middle-aged, -[place] female, lying in bed right side-lying, appears uncomfortable, does not look toxic HEENT head/scalp atraumatic and moist oral mucous membranes HEENT Narrative: Mallampati 2, no thrush Head and Scalp: normocephalic Eyes conjunctivae normal Eyes Narrative: No scleral icterus Neck supple Neck Narrative: Trachea midline Resp normal respiratory effort, no retractions, no use of accessory muscles and clear to auscultation bilaterally Resp Narrative: Diffusely diminished but clear Auscultation: Negative for rales, rhonchi or wheezes Cardio regular rate, regular rhythm, S1 normal heart sound, S2 normal heart sound, no murmurs, no rub, no gallops and no clicks GI normal to inspection, nondistended, normoactive bowel sounds, soft to palpation and non-tender Negative for no CVA tenderness Narrative: Positive left-sided CVA tenderness Back/Spine Back/Spine Narrative: Patient appears to move all extremities well as she is squirming around in bed a bit Extremity no clubbing, cyanosis or edema Extremity Narrative: 2+ pedal pulses Skin Skin Narrative: No rash noted in flank area on the left side Neuro moves all extremities and no focal motor deficits Speech: speech normal Psych Psych Narrative: Patient very anxious Assessment & Plan Assessment/Plan (1) Altered mental state: (2) Flank pain: (3) Chest pain: (4) Elevated troponin: (5) Hypoxia: PLAN: Plan Chest pain and shortness of breath - Doubt pneumonia with normal white count, no focal infiltrate, no fever, no sputum production - Stop antibiotics - Plan was for cardiac catheterization but unable to do procedure as patient was currently not able to lie flat due to back pain - Echocardiogram shows depressed EF at 35%, LVH, stage II diastolic dysfunction, moderate global hypokinesis -Will likely need cardiac catheterization still but back pain will need to be under control first - Start Lasix 40 mg IV push daily - Cardiology following - Continue statin - Continue aspirin Hypoxia - Currently 99% on room air - Wean oxygen - Lasix 40 mg IV push daily Elevated troponin - Suspect cardiac etiology - EF is depressed - Cardiac catheterization was recommended but unable to proceed due to inability lie flat with back pain - Await cardiology further input after echo Cardiomyopathy - Etiology is unclear - EF is depressed - Not currently on beta-blockade and not listed as allergy -Monitor blood pressure and start if able - Continue home lisinopril - Continue home Jardiance - Will need to initiate full goal-directed therapy if able monitor blood pressure closely Altered mental status - EEG is pending -Lactate following was unremarkable so doubt seizure - CT of the brain unremarkable - Highly suspect supratentorial and reaction due to severe pain but will rule out organic etiology -Patient had received fentanyl and Versed prior to this but was awake after medication and then spontaneously went out with fairly quick resolution of altered mental status - If further issues may need neuro involvement - Monitor on telemetry overnight Intractable left flank pain - history of nephrolithiasis but CT of the abdomen is unremarkable - No radicular symptoms/no rash - CT of the lumbar spine with contrast is pending - Check ESR and CRP for signs of systemic inflammation - Tylenol 1 g every 8 hours - Lidocaine patch ordered - As needed oxycodone - As needed Dilaudid - MiraLAX twice daily for constipation prevention DM-2 - Patient on very large dose of basal insulin at home 112 units - Due to intermittent nausea with pain will decrease dose for now but may need to uptitrate depending on oral intake - Hold home scheduled prandial insulin and utilize SSI for now at high dose may need to reinitiate tomorrow depending on blood sugar - Hold home oral agents - Cardiac/carb controlled diet - Check A1c in a.m. Essential hypertension/hyperlipidemia - Continue home antihypertensives - continue home statin - Check lipid panel Diabetic neuropathy - Continue home gabapentin nightly Obesity - BMI 31.7 - Complicates treatment, prognosis, outcomes - Recommend weight loss DVT prophylaxis - Start enoxaparin subcu daily 40 mg CODE STATUS - Full code Charges/Coding Visit Charges Inpatient E&M: 48015 [facility] Hosp L3
--- NOTE | 2025-02-23 07:59 | PCM.CONS.C ---
Assessment & Plan Assessment/Plan (1) Chest pain: PLAN: She presents with chest discomfort which has some atypical features but her cardiac enzymes are elevated significantly enough that I think that we need to likely pursue a left heart catheterization. The risk benefits alternatives of an explained to the patient she understands and agrees to proceed. (2) Elevated troponin: PLAN: She does have evidence of elevated troponin. Will need to evaluate the above with a cardiac catheterization. (3) HTN (hypertension): QUALIFIERS: Hypertension type: essential hypertension Qualified Code(s): I10 - Essential (primary) hypertension PLAN: Her blood pressure appears to be elevated and I would recommend that we start her on an JANNIE inhibitor as she is a diabetic. An echocardiogram will be also performed to assess her ventricular function and depending on the findings further recommendations will be made. HPI Consult Data Date of Consult: 02/23/25 HPI Narrative HPI Narrative: LISA GOTTI, is a 59 F who presents to the emergency room after she was sent there from her physician's office with a complaint of chest discomfort. She describes this as sharp location and a dull does not allow her to lie down and she has to sit up and has not been able to sleep well for a few days. She also says that she has been short of breath and has had a productive cough with some wheezing and she thought it was a pneumonia went to the primary physician's office but was sent to the emergency room. In the emergency room she was evaluated she was noted to be tachycardic with a decent blood pressure and cardiac enzymes were noted to be abnormal and cardiology was called for further evaluation and management. She does have a history of diabetes, but no history of hypertension or hyperlipidemia. [facility] Medical History Dyslipidemia Trigger ring finger of left hand Obesity Essential hypertension GERD (gastroesophageal reflux disease) Low HDL (under 40) Incisional hernia without obstruction or gangrene Unspecified hereditary and idiopathic peripheral neuropathy Type 2 diabetes mellitus with polyneuropathy Kidney stones Blood clot in vein Hx: UTI (urinary tract infection) Home Medications ?Medication ?Instructions ?Recorded ?Last Taken ?Type albuterol sulfate 90 mcg/actuation 2 puff inhalation Q4H PRN PRN 04/08/14 04/08/14 02:30 History aerosol inhaler Wheezing calcium 315 mg (as 1 tab PO DAILY 04/08/14 04/05/17 22:00 History citrate)-vitamin D3 6.25 mcg (250 2 tab unit) tablet lisinopril 10 mg tablet 1 tab PO DAILY 04/07/17 04/05/17 08:00 History 1 tab magnesium citrate 150 ml PO Q6H PRN PRN Constipation 01/22/19 Unknown Rx #300 mL albuterol sulfate 2.5 mg/3 mL 2.5 mg inhalation Q4H PRN 05/11/19 Unknown History (0.083 %) solution for nebulization shortness of breath or wheezing alcohol swabs (BD Alcohol Swabs) See Rx Instructions topical 05/11/19 Unknown History .COMPLEX aspirin 81 mg tablet,delayed 81 mg PO DAILY 05/11/19 Unknown History release (Adult Low Dose Aspirin) atorvastatin 40 mg tablet 40 mg PO DAILY 05/11/19 Unknown History blood sugar diagnostic (FreeStyle #10 ea 05/11/19 Unknown History Lite Strips) blood-glucose meter (FreeStyle #1 ea 05/11/19 Unknown History Lite Meter kit) famotidine 20 mg tablet 20 mg PO BID 05/11/19 Unknown History insulin degludec 100 unit/mL (3 112 unit subcut QHS 05/11/19 Unknown History mL) subcutaneous pen (Tresiba FlexTouch U-100 insulin) lancets 30 gauge (Unilet Super #25 ea 05/11/19 Unknown History Thin Lancets) mupirocin 2 % topical ointment 1 applic topical BID 05/11/19 Unknown History pen needle, diabetic 31 gauge x #30 ea 05/11/19 Unknown History 3/16 (1st Tier Unifine Pentips) polyethylene glycol 3350 17 17 g PO BID 05/11/19 Unknown History gram/dose oral powder (Miralax) flash glucose sensor (FreeStyle #2 ea 02/26/20 Unknown Rx Michi 14 Day Sensor kit) insulin aspart U-100 100 unit/mL 20 unit (0.2 mL) subcut TID #24 mL 04/05/20 Unknown Rx (3 mL) subcutaneous pen (Novolog FlexPen U-100 Insulin aspart) metformin 1,000 mg tablet 1,000 mg PO BID diabetes 02/06/21 Unknown History cyanocobalamin (vitamin B-12) 2,000 mcg PO DAILY 02/22/25 Unknown History 1,000 mcg tablet,extended release dulaglutide 4.5 mg/0.5 mL 4.5 mg subcut QWEEK 02/22/25 Unknown History subcutaneous pen injector (Trulicity) empagliflozin 10 mg tablet 25 mg PO BREAKFAST 02/22/25 Unknown History (Jardiance) fluoxetine 20 mg capsule 20 mg PO DAILY 02/22/25 Unknown History gabapentin 100 mg capsule 100 mg PO QHS 02/22/25 Unknown History Allergy/AdvReac Type Severity Reaction Status Date / Time tramadol Allergy Hives Verified 02/22/25 16:32 albuterol sulfate (From AdvReac Vomiting Verified 02/22/25 16:32 Proventil HFA) ammonium lactate (From AdvReac Other Verified 02/22/25 16:32 Lac-Hydrin) phentermine HCl (From AdvReac Chest Verified 02/22/25 16:32 Adipex-P) tightness Family History Uncle Cancer Sister Diabetes Social History Smoking Status: Current some day smoker tobacco type: cigarettes alcohol intake: never substance use type: does not use ROS Constitutional Constitutional: Denies fever(s) or weight loss Eyes Eyes: Reports systems reviewed and no addt'l complaints, except as documented ENT HEENT: Reports systems reviewed and no addt'l complaints, except as documented Cardiovascular Cardiovascular: Reports chest pain at rest and chest pain with activity; Denies dyspnea at rest, dyspnea on exertion, edema, palpitations or paroxysmal nocturnal dyspnea Respiratory/Chest Respiratory/Chest: Denies dyspnea on exertion, productive cough, shortness of breath at rest or shortness of breath with exertion Gastrointestinal Gastrointestinal: Denies change in bowel habits, nausea, vomiting or weight changes Genitourinary Genitourinary: Denies difficulty urinating Musculoskeletal Musculoskeletal: Denies joint stiffness or muscle weakness Integumentary Integumentary: Denies lesions Neurologic Neurologic: Denies dizziness or syncope Psychiatric Psychiatric: Denies anxiety Endocrine Endocrinology: Denies excessive sweating or fatigue Hematologic/Lymphatic Hematologic/Lymphatic: Denies anemia Allergic/Immunologic Allergic/Immunologic: Denies seasonal rhinorrhea Physical Exam Const alert, oriented x3 and no apparent distress General Appearance: cooperative HEENT hearing grossly normal bilaterally Head and Scalp: atraumatic Eyes EOMs intact bilaterally Neck General: normal visual inspection Chest inspection of chest normal and palpation of chest normal Resp normal respiratory effort Auscultation: clear to auscultation bilaterally Cardio regular rate, regular rhythm, S1 normal heart sound and S2 normal heart sound Jugular Venous Distention: JVD GI normal to inspection, nondistended, normoactive bowel sounds Extremity normal capillary refill and no pedal edema Peripheral Pulses: Yes pulses 2+ throughout and femoral pulses present Skin no rashes or lesions noted Neuro oriented x3 and CN's II-XII intact bilaterally Psych Appearance: grossly normal and appropriate Risk Stratification Risk Stratification Applicable: Yes Age >/= 65: No >/= 3 CAD Risk Factors (HTN, HLD, DM, family hx of CAD, or current smoker): No Aspirin Use in the Past 7 Days: No Severe Angina (>/= episodes in 24 hours): No EKG ST Changes >/= 0.5mm: No Positive Cardiac Marker: Yes CLIFF Risk Stratification Score: 1 CLIFF % Risk: 5% Risk Objective Data Vital Signs: Vital Signs Temp Pulse Resp BP Pulse Ox O2 Del Method O2 Flow Rate 97.8 F 103 H 20 H 135/91 H 95 Nasal Cannula 2 02/23/25 06:00 02/23/25 06:00 02/23/25 06:00 02/23/25 06:00 02/23/25 06:00 02/23/25 06:00 02/23/25 06:00 Oxygen Flow Rate (L/min) 2 Oxygen Delivery Method Nasal Cannula Weight: 208 lb 12.444 oz Body Mass Index (BMI) 31.7 Intake & Output: Intake and Output for Last 24 Hours 02/21/25 02/22/25 02/23/25 23:59 23:59 23:59 Intake Total 525 / 525 Balance 525 / 525 Lab / Micro Data 02/23/25 04:29 02/23/25 04:29 Labs: Laboratory Results - last 24 hr 02/22/25 17:45: WBC 7.8, RBC 4.29, Hgb 13.3, Hct 38.3, MCV 89.3, MCH 31.0, MCHC 34.7, RDW Std Deviation 39.5, RDW Coeff of Brett 12.2, Plt Count 278, MPV 10.0, Immature Gran % (Auto) 0.400, Neut % (Auto) 48.8, Lymph % (Auto) 37.3, [place] % (Auto) 11.0 H, Eos % (Auto) 1.7, Baso % (Auto) 0.8, Absolute Neuts (auto) 3.8, Absolute Lymphs (auto) 2.92, Nucleated RBC % 0, Sodium 139, Potassium 3.6, Chloride 103, Carbon Dioxide 24.0, Anion Gap 12, BUN 9, Creatinine 0.57 L, Estim Creat Clear Calc 127.95, Est GFR (MDRD) Non-Af 104, BUN/Creatinine Ratio 15.5, Glucose 270 H, Calcium 9.3, Troponin T High Sens 181 H*, NT pro BNP II 3685 H 02/22/25 19:24: Troponin T Hi Sens 2 Hr 160 H* 02/22/25 22:17: Troponin T Hi Sens 4Hr 164 H* 02/23/25 00:13: POC Glucose 373 H 02/23/25 04:29: WBC 8.5, RBC 4.12 L, Hgb 12.6, Hct 36.7 L, MCV 89.1, MCH 30.6, MCHC 34.3, RDW Std Deviation 39.6, RDW Coeff of Brett 12.3, Plt Count 269, MPV 10.2, Immature Gran % (Auto) 0.200, Neut % (Auto) 52.6, Lymph % (Auto) 32.5, [place] % (Auto) 12.7 H, Eos % (Auto) 1.3, Baso % (Auto) 0.7, Absolute Neuts (auto) 4.5, Absolute Lymphs (auto) 2.76, Nucleated RBC % 0, PT 13.6, INR 1.0, Sodium 138, Potassium 3.5, Chloride 102, Carbon Dioxide 23.6, Anion Gap 13, BUN 12, Creatinine 0.66 L, Estim Creat Clear Calc 109.07, Est GFR (MDRD) Non-Af 100, BUN/Creatinine Ratio 17.5, Glucose 253 H, Calcium 9.0, Phosphorus 3.0, Magnesium 1.9 02/23/25 05:55: POC Glucose 241 H Rhythm Strip Rhythm Strip: Sinus Tach Rate: 110 Ectopy: None Cardiology Labs/Tests 02/22/25 17:45: WBC 7.8, RBC 4.29, Hgb 13.3, Hct 38.3, MCV 89.3, MCH 31.0, MCHC 34.7, Plt Count 278, MPV 10.0, Immature Gran % (Auto) 0.400, Neut % (Auto) 48.8, Lymph % (Auto) 37.3, [place] % (Auto) 11.0 H, Eos % (Auto) 1.7, Baso % (Auto) 0.8, Absolute Neuts (auto) 3.8, Nucleated RBC % 0, Sodium 139, Potassium 3.6, Chloride 103, Carbon Dioxide 24.0, Anion Gap 12, BUN 9, Creatinine 0.57 L, Est GFR (MDRD) Non-Af 104, BUN/Creatinine Ratio 15.5, Glucose 270 H, Calcium 9.3 02/23/25 04:29: WBC 8.5, RBC 4.12 L, Hgb 12.6, Hct 36.7 L, MCV 89.1, MCH 30.6, MCHC 34.3, Plt Count 269, MPV 10.2, Immature Gran % (Auto) 0.200, Neut % (Auto) 52.6, Lymph % (Auto) 32.5, [place] % (Auto) 12.7 H, Eos % (Auto) 1.3, Baso % (Auto) 0.7, Absolute Neuts (auto) 4.5, Nucleated RBC % 0, PT 13.6, INR 1.0, Sodium 138, Potassium 3.5, Chloride 102, Carbon Dioxide 23.6, Anion Gap 13, BUN 12, Creatinine 0.66 L, Est GFR (MDRD) Non-Af 100, BUN/Creatinine Ratio 17.5, Glucose 253 H, Calcium 9.0, Phosphorus 3.0, Magnesium 1.9 Rhythm: EKG: ECHO: Stress Test: Cardiac Cath: PCI: CT Surgery: Holter monitor: EPS: PPM: CXR: Chest CT Scan: Radiography Diagnostic Testing: Radiology Impression Chest X-Ray 02/22/25 18:16 IMPRESSION: Bilateral coarse reticular airspace opacities, which may reflect interstitial fibrotic lung changes, interstitial edema, or possibly atypical/viral infection in the appropriate clinical context. Reading Location: [id number]
--- NOTE | 2025-02-23 09:00 | PCM.PN.CARD ---
Subjective Subjective Patient seen in [place]. Patient said that she could not lie down flat. Preparation for the procedure was given 1 Versed and 50 mcg of fentanyl. To help with back pain. She takes Vicodin at home. She could absolutely not lie down flat and would occasionally have these episodes where she would appear to be unconscious but with a normal blood pressure and heart rate. During 1 of these episodes her blood pressure was 150/100 mmHg and her pulse rate of 100 bpm monitored. Objective Data Vital Signs: Vital Signs Temp Pulse Resp BP Pulse Ox O2 Del Method O2 Flow Rate 97.8 F 103 H 20 H 135/91 H 95 Nasal Cannula 2 02/23/25 06:00 02/23/25 06:00 02/23/25 06:00 02/23/25 06:00 02/23/25 06:00 02/23/25 06:00 02/23/25 06:00 Oxygen Flow Rate (L/min) 2 Oxygen Delivery Method Nasal Cannula Weight: 208 lb 12.444 oz Body Mass Index (BMI) 31.7 Intake & Output: Intake and Output for Last 24 Hours 02/21/25 02/22/25 02/23/25 23:59 23:59 23:59 Intake Total 525 / 525 Balance 525 / 525 Lab / Micro Data 02/23/25 04:29 02/23/25 04:29 Labs: Laboratory Results - last 24 hr 02/22/25 17:45: WBC 7.8, RBC 4.29, Hgb 13.3, Hct 38.3, MCV 89.3, MCH 31.0, MCHC 34.7, RDW Std Deviation 39.5, RDW Coeff of Brett 12.2, Plt Count 278, MPV 10.0, Immature Gran % (Auto) 0.400, Neut % (Auto) 48.8, Lymph % (Auto) 37.3, [place] % (Auto) 11.0 H, Eos % (Auto) 1.7, Baso % (Auto) 0.8, Absolute Neuts (auto) 3.8, Absolute Lymphs (auto) 2.92, Nucleated RBC % 0, Sodium 139, Potassium 3.6, Chloride 103, Carbon Dioxide 24.0, Anion Gap 12, BUN 9, Creatinine 0.57 L, Estim Creat Clear Calc 127.95, Est GFR (MDRD) Non-Af 104, BUN/Creatinine Ratio 15.5, Glucose 270 H, Calcium 9.3, Troponin T High Sens 181 H*, NT pro BNP II 3685 H 02/22/25 19:24: Troponin T Hi Sens 2 Hr 160 H* 02/22/25 22:17: Troponin T Hi Sens 4Hr 164 H* 02/23/25 00:13: POC Glucose 373 H 02/23/25 04:29: WBC 8.5, RBC 4.12 L, Hgb 12.6, Hct 36.7 L, MCV 89.1, MCH 30.6, MCHC 34.3, RDW Std Deviation 39.6, RDW Coeff of Brett 12.3, Plt Count 269, MPV 10.2, Immature Gran % (Auto) 0.200, Neut % (Auto) 52.6, Lymph % (Auto) 32.5, [place] % (Auto) 12.7 H, Eos % (Auto) 1.3, Baso % (Auto) 0.7, Absolute Neuts (auto) 4.5, Absolute Lymphs (auto) 2.76, Nucleated RBC % 0, PT 13.6, INR 1.0, Sodium 138, Potassium 3.5, Chloride 102, Carbon Dioxide 23.6, Anion Gap 13, BUN 12, Creatinine 0.66 L, Estim Creat Clear Calc 109.07, Est GFR (MDRD) Non-Af 100, BUN/Creatinine Ratio 17.5, Glucose 253 H, Calcium 9.0, Phosphorus 3.0, Magnesium 1.9 02/23/25 05:55: POC Glucose 241 H Rhythm Strip Rhythm Strip: Sinus Tach Rate: 110 Ectopy: None Cardiology Labs/Tests 02/22/25 17:45: WBC 7.8, RBC 4.29, Hgb 13.3, Hct 38.3, MCV 89.3, MCH 31.0, MCHC 34.7, Plt Count 278, MPV 10.0, Immature Gran % (Auto) 0.400, Neut % (Auto) 48.8, Lymph % (Auto) 37.3, [place] % (Auto) 11.0 H, Eos % (Auto) 1.7, Baso % (Auto) 0.8, Absolute Neuts (auto) 3.8, Nucleated RBC % 0, Sodium 139, Potassium 3.6, Chloride 103, Carbon Dioxide 24.0, Anion Gap 12, BUN 9, Creatinine 0.57 L, Est GFR (MDRD) Non-Af 104, BUN/Creatinine Ratio 15.5, Glucose 270 H, Calcium 9.3 02/23/25 04:29: WBC 8.5, RBC 4.12 L, Hgb 12.6, Hct 36.7 L, MCV 89.1, MCH 30.6, MCHC 34.3, Plt Count 269, MPV 10.2, Immature Gran % (Auto) 0.200, Neut % (Auto) 52.6, Lymph % (Auto) 32.5, [place] % (Auto) 12.7 H, Eos % (Auto) 1.3, Baso % (Auto) 0.7, Absolute Neuts (auto) 4.5, Nucleated RBC % 0, PT 13.6, INR 1.0, Sodium 138, Potassium 3.5, Chloride 102, Carbon Dioxide 23.6, Anion Gap 13, BUN 12, Creatinine 0.66 L, Est GFR (MDRD) Non-Af 100, BUN/Creatinine Ratio 17.5, Glucose 253 H, Calcium 9.0, Phosphorus 3.0, Magnesium 1.9 Rhythm: EKG: ECHO: Stress Test: Cardiac Cath: PCI: CT Surgery: Holter monitor: EPS: PPM: CXR: Chest CT Scan: Radiography Diagnostic Testing: Radiology Impression Chest X-Ray 02/22/25 18:16 IMPRESSION: Bilateral coarse reticular airspace opacities, which may reflect interstitial fibrotic lung changes, interstitial edema, or possibly atypical/viral infection in the appropriate clinical context. Reading Location: [facility] Physical Exam Const no apparent distress Constitutional Narrative: Intermittent oriented. General Appearance: cooperative HEENT hearing grossly normal bilaterally Head and Scalp: atraumatic Eyes EOMs intact bilaterally Neck General: normal visual inspection Chest inspection of chest normal and palpation of chest normal Resp normal respiratory effort Auscultation: clear to auscultation bilaterally Cardio regular rate, regular rhythm, S1 normal heart sound and S2 normal heart sound Jugular Venous Distention: JVD GI normal to inspection, nondistended, normoactive bowel sounds Extremity normal capillary refill and no pedal edema Peripheral Pulses: Yes pulses 2+ throughout and femoral pulses present Skin no rashes or lesions noted Neuro oriented x3 and CN's II-XII intact bilaterally Psych Appearance: grossly normal and appropriate Assessment & Plan Assessment/Plan (1) Chest pain: PLAN: She presents with chest discomfort which has some atypical features but her cardiac enzymes are elevated. Patient cannot tolerate laying down flat and so it was determined that we should manage this medically. Will evaluate her with an echocardiogram and if ejection fraction is preserved with pursue aggressive medical therapy. This is especially in light of the fact that the chest pain has some significant atypical features. Perhaps at a later time she may be able to lay down flat for us to pursue an invasive therapy. The patient has been transferred to the intensive care unit for monitoring for few hours due to her rather unusual behavior and response. (2) Elevated troponin: PLAN: She does have evidence of elevated troponin. (3) HTN (hypertension): QUALIFIERS: Hypertension type: essential hypertension Qualified Code(s): I10 - Essential (primary) hypertension PLAN: Her blood pressure appears to be elevated and I would recommend that we start her on an JANNIE inhibitor as she is a diabetic. An echocardiogram will be also performed to assess her ventricular function and depending on the findings further recommendations will be made.
--- NOTE | 2025-02-23 09:25 | CT_ITS ---
PROCEDURE: BRAIN/HEAD WITHOUT CONTRAST 02/23/2025 REASON FOR EXAM: ALTERED MS TECHNIQUE: BRAIN/HEAD WITHOUT CONTRAST Coronal and Sagittal reconstruction series were provided. One or more dose reduction techniques were used (e.g., Automated exposure control, adjustment of the mA and/or kV according to patient size, use of iterative reconstruction technique. RADIATION DOSE SUMMARY: CTDlvol: 44.99 mGy DLP: 779.24 mGycm COMPARISON: None FINDINGS: Brain: Low density in the periventricular white matter suggests mild chronic small vessel ischemic changes. Focal decreased density in the posterior medial aspect of the left occipital lobe suggestive of possible prior ischemic insult. CSF Spaces: Mild generalized cerebral atrophy Sinuses/Mastoids: Mild mucosal thickening of the left maxillary sinus. Bones: Unremarkable. CT/Brain/Head without Contrast IMPRESSION: CHRONIC CHANGES. NO ACUTE FINDINGS. Reading Location: [id number]
--- NOTE | 2025-02-23 10:10 | CT_ITS ---
PROCEDURE: ABDOMEN/PELVIS WITHOUT CONT 02/23/2025 REASON FOR EXAM: BACK/FLANK PAIN Left flank pain. TECHNIQUE: ABDOMEN/PELVIS WITHOUT CONT Noncontrast technique limits evaluation of the abdominal and pelvic viscera. Coronal and Sagittal reconstruction series were provided. One or more dose reduction techniques were used (e.g., Automated exposure control, adjustment of the mA and/or kV according to patient size, use of iterative reconstruction technique). RADIATION DOSE SUMMARY: CTDlvol: 14.8 mGy DLP: 949.4 mGycm COMPARISON: Prior study dated August 21, 2019. FINDINGS: Lung bases: Small bilateral pleural effusions. Findings suggestive of bibasilar atelectasis. There is an 11.4 mm noncalcified nodule in the anterior right middle lobe. Coronary artery calcification. Liver: Unremarkable Gallbladder: Unremarkable Spleen: Normal size. Pancreas: Normal size. No surrounding inflammation. Adrenals: The adrenal glands are unremarkable. Kidneys: No evidence of ureteral obstruction. No evidence of hydronephrosis. Bladder: The urinary bladder is only partially filled. Reproductive Organs: Questionable uterine prolapse. Bowel: Colonic diverticulosis without diverticulitis. Surgical anastomosis is seen in the central small-bowel. Appendix: The appendix is not identified. There is no inflammatory process identified in the right lower quadrant to suggest appendicitis. Lymph nodes: Unremarkable. Vasculature: Mild diffuse atherosclerotic calcifications are noted. Peritoneum / Retroperitoneum: Unremarkable Bones: Degenerative changes of the spine. CT/Abdomen/Pelvis without Cont IMPRESSION: No evidence of the ureteral obstruction. Reading Location: [facility]
[2025-02-23] MEDS: Calcium Carb/Vitamin D 1 TABLET Tablet PO (10:14)
[2025-02-23] MEDS: Insulin Glargine-YFGN 100 UNIT/ML Pen 20 UNIT SC (10:15)
[2025-02-23] MEDS: Polyethylene Glycol 3350 17 GM PACKET PO ×2 (10:15→21:34)
--- NOTE | 2025-02-23 18:36 | CT_ITS ---
PROCEDURE: SPINE LUMBAR WITH CONTRAST 02/23/2025 REASON FOR EXAM: PAIN TECHNIQUE: SPINE LUMBAR WITH CONTRAST CONTRAST: Isovue 370 VOLUME: 100 mL One or more dose reduction techniques were used (e.g., Automated exposure control, adjustment of the mA and/or kV according to patient size, use of iterative reconstruction technique). RADIATION DOSE SUMMARY: CTDlvol: 20 mGy DLP: 1030 mGycm COMPARISON: Abdominopelvic CT same day FINDINGS: Mild scoliosis. Diffuse mild facet arthritis. Multilevel mild disc space narrowing, which is severe, at L5-S1, with vacuum disc, and a small posterior disc osteophyte complex. At L4-L5, grade 1 anterolisthesis. At L3-L4, minimal grade 1 anterolisthesis. Small right and tiny left effusions. Bibasilar airspace disease, atelectasis/consolidation. Right-sided renal scarring. Upper abdominal solid organs show no acute findings. Nondistended bowel. Small bowel anastomosis. Normal appendix. Multiple diverticula. Paraspinal soft tissues show no acute findings. CT/Spine Lumbar WITH Contrast IMPRESSION: Lumbar spine scoliosis and degeneration. Lumbar spine degeneration mainly L5-S1. No acute findings. Reading Location: [place] [id number]
[2025-02-23] MEDS: Lidocaine 5% Patch 1 PATCH TOPICAL (18:56)
[2025-02-23] MEDS: Insulin Glargine-YFGN 100 UNIT/ML Pen 40 UNIT SC (21:35)
[2025-02-24] VITALS (18 sets, daily range): BP systolic 100–155; BP diastolic 57–105; PULSE 79–107; RESP 14–20; TEMP 36.4–37.1; O2SAT 90–100; BMI 31.1
[2025-02-24] MEDS: 0.9% Saline Lock 10 ML Syringe IV ×3 (04:10→19:39)
[2025-02-24 04:59] LABS: Hematocrit 37.4 % (37-47); Hemoglobin 12.7 g/dL (12.0-15.0); Immature Granulocytes Count 0.020 X10^3/uL (0.0-0.0); Mean Corp Hgb Conc 34.0 g/dL (32-36); Mean Corpuscular Volume 89.5 fL (81-99); Mean Platelet Vol. 10.1 fl (6.2-12.0); NRBC Flagged by Analyzer 0 % (0-5); Platelet Count 267 K/mm3 (150-450); RBC Distribution Width CV 12.3 % (11.6-14.6); RBC Distribution Width SD 39.8 fl (35.1-43.9); Red Blood Count 4.18 M/mm3 (4.2-5.4); White Blood Count 6.9 K/mm3 (4.4-11.0)
[2025-02-24 05:48] LABS: AST(SGOT) 82 U/L (<=31); Alanine Aminotransfer ALT/SGPT 31 U/L (<=34); Albumin, Serum 3.8 g/dL (3.4-4.8); Alkaline Phosphatase 92 U/L (35-104); Anion Gap 11 (5-15); BUN 11 mg/dL (4-19); BUN/Creat Ratio 19.8 RATIO (10-20); Calcium,Total 9.3 mg/dL (7.6-11.0); Carbon Dioxide 24.9 mmol/L (21.0-32.0); Chloride 106 mmol/L (98-108); Estimated Creatinine Clearance 133.31 ml/min (50-250); Globulin 3.2 g/dL (2.2-4.2); Glucose 103 mg/dL (70-99); Magnesium 2.2 mg/dL (1.5-2.2); Potassium 3.6 mmol/L (3.3-5.1)
[2025-02-24 06:19] LABS: CRP 43.20 mg/L (0.0-3.0)
--- NOTE | 2025-02-24 07:41 | PCM.PN.CARD ---
Subjective Subjective Patient seen and evaluated. Doing better this morning. Sitting in chair. No further chest pain. Only back pain noted. Objective Data Vital Signs: Vital Signs Temp Pulse Resp BP Pulse Ox O2 Del Method O2 Flow Rate 97.8 F 79 17 109/81 H 100 Nasal Cannula 4 02/24/25 04:00 02/24/25 07:00 02/24/25 07:00 02/24/25 07:00 02/24/25 07:00 02/24/25 07:00 02/24/25 07:00 Oxygen Flow Rate (L/min) 4 Oxygen Delivery Method Nasal Cannula Weight: 208 lb 12.444 oz Body Mass Index (BMI) 31.7 Intake & Output: Intake and Output for Last 24 Hours 02/22/25 02/23/25 02/24/25 23:59 23:59 23:59 Intake Total 525 / 525 Output Total 650 / 650 Balance 525 / 525 -650 / -650 Lab / Micro Data 02/24/25 04:20 02/24/25 04:20 Labs: Laboratory Results - last 24 hr 02/23/25 09:53: Lactic Acid 1.5 02/23/25 12:10: POC Glucose 263 H 02/23/25 16:11: POC Glucose 140 H 02/23/25 16:59: POC Glucose 144 H 02/23/25 21:33: POC Glucose 186 H 02/24/25 04:20: WBC 6.9, RBC 4.18 L, Hgb 12.7, Hct 37.4, MCV 89.5, MCH 30.4, MCHC 34.0, RDW Std Deviation 39.8, RDW Coeff of Brett 12.3, Plt Count 267, MPV 10.1, Immature Gran % (Auto) 0.300, Neut % (Auto) 39.4 L, Lymph % (Auto) 45.8 H, [place] % (Auto) 12.0 H, Eos % (Auto) 1.9, Baso % (Auto) 0.6, Absolute Neuts (auto) 2.7, Absolute Lymphs (auto) 3.17, Nucleated RBC % 0, ESR 23, Sodium 142, Potassium 3.6, Chloride 106, Carbon Dioxide 24.9, Anion Gap 11, BUN 11, Creatinine 0.54 L, Estim Creat Clear Calc 133.31, Est GFR (MDRD) Non-Af 106, BUN/Creatinine Ratio 19.8, Glucose 103 H, Calcium 9.3, Phosphorus 4.3, Magnesium 2.2, Total Bilirubin 0.85, AST 82 H, ALT 31, Alkaline Phosphatase 92, C-React Prot Ext Range 43.20 H, Total Protein 7.0, Albumin 3.8, Globulin 3.2, Albumin/Globulin Ratio 1.2, TSH 2.330 Rhythm Strip Rhythm Strip: Sinus Tach Rate: 110 Ectopy: None Cardiology Labs/Tests 02/23/25 09:53: Lactic Acid 1.5 02/24/25 04:20: WBC 6.9, RBC 4.18 L, Hgb 12.7, Hct 37.4, MCV 89.5, MCH 30.4, MCHC 34.0, Plt Count 267, MPV 10.1, Immature Gran % (Auto) 0.300, Neut % (Auto) 39.4 L, Lymph % (Auto) 45.8 H, [place] % (Auto) 12.0 H, Eos % (Auto) 1.9, Baso % (Auto) 0.6, Absolute Neuts (auto) 2.7, Nucleated RBC % 0, Sodium 142, Potassium 3.6, Chloride 106, Carbon Dioxide 24.9, Anion Gap 11, BUN 11, Creatinine 0.54 L, Est GFR (MDRD) Non-Af 106, BUN/Creatinine Ratio 19.8, Glucose 103 H, Calcium 9.3, Phosphorus 4.3, Magnesium 2.2, Total Bilirubin 0.85 Rhythm: EKG: ECHO: Stress Test: Cardiac Cath: PCI: CT Surgery: Holter monitor: EPS: PPM: CXR: Chest CT Scan: Radiography Diagnostic Testing: Radiology Impression Echocardiogram 02/23/25 05:55 Interpretation Summary Normal LV size. The left ventricular ejection fraction is 35 %. Stage 2 diastolic dysfunction. There is moderate global hypokinesis of the left ventricle. Mild concentric left ventricular hypertrophy. Contrast injection was performed. Ordering Physician: Denton Cook Referring Physician: Jese Zheng Performed By: Shanelle Roger, RDCS, RVT Brain CT 02/23/25 09:25 IMPRESSION: CHRONIC CHANGES. NO ACUTE FINDINGS. Reading Location: [facility] Abdomen/Pelvis CT 02/23/25 10:10 IMPRESSION: No evidence of the ureteral obstruction. Reading Location: [id number] Lumbar Spine CT 02/23/25 18:36 IMPRESSION: Lumbar spine scoliosis and degeneration. Lumbar spine degeneration mainly L5-S1. No acute findings. Reading Location: [place] [id number] Physical Exam Const alert, oriented x3 and no apparent distress General Appearance: cooperative HEENT hearing grossly normal bilaterally Head and Scalp: atraumatic Eyes EOMs intact bilaterally Neck General: normal visual inspection Chest inspection of chest normal and palpation of chest normal Resp normal respiratory effort Auscultation: clear to auscultation bilaterally Cardio regular rate, regular rhythm, S1 normal heart sound and S2 normal heart sound Jugular Venous Distention: JVD GI normal to inspection, nondistended, normoactive bowel sounds Extremity normal capillary refill and no pedal edema Peripheral Pulses: Yes pulses 2+ throughout and femoral pulses present Skin no rashes or lesions noted Neuro oriented x3 and CN's II-XII intact bilaterally Psych Appearance: grossly normal and appropriate Assessment & Plan Assessment/Plan (1) Chest pain: PLAN: She presented with chest discomfort with atypical features. Cardiac enzymes were mildly elevated. Initially the plan was to perform a cardiac catheterization but patient was uncooperative. An echocardiogram was performed which demonstrated global reduction in left ventricular systolic function suggestive of a cardiomyopathy. I suspect this was the cause of her mild EKG changes. As the cardiac enzymes were flat I will recommend continued aggressive medical therapy. (2) Elevated troponin: PLAN: She does have evidence of elevated troponin. The pattern of this was flat and therefore we will pursue medical therapy. (3) HTN (hypertension): QUALIFIERS: Hypertension type: essential hypertension Qualified Code(s): I10 - Essential (primary) hypertension PLAN: Her blood pressure appears to be elevated and with the left ventricular dysfunction I would recommend the JANNIE inhibitor Start carvedilol 3.125 mg twice a day PLAN: Plan She can be transferred out of the intensive care unit and perhaps discharge home for outpatient follow-up.
[2025-02-24] MEDS: Calcium Carb/Vitamin D 1 TABLET Tablet PO (08:15)
[2025-02-24] MEDS: Aspirin E.C. 81 MG Tablet PO (08:15)
[2025-02-24] MEDS: Lidocaine 5% Patch 1 PATCH TOPICAL (08:16)
[2025-02-24] MEDS: Polyethylene Glycol 3350 17 GM PACKET PO (08:17)
--- NOTE | 2025-02-24 11:55 | PN_ITS ---
Subjective Subjective Patient seen and examined. She still complains of the lower back pain. She however had no other active complaints. Review of systems is otherwise negative. She was unable to tolerate the cardiac cath as she could not lay flat. Review of systems is otherwise negative. She is on 2L of oxygen by nasal canula. Objective Data Objective Data Vital Signs: Vital Signs Temp Pulse Resp BP Pulse Ox O2 Del Method O2 Flow Rate 97.5 F L 95 19 H 120/94 H 90 Nasal Cannula 2 02/24/25 08:00 02/24/25 09:00 02/24/25 09:00 02/24/25 09:00 02/24/25 09:00 02/24/25 09:00 02/24/25 09:00 Oxygen Flow Rate (L/min) 2 Oxygen Delivery Method Nasal Cannula Weight: 205 lb 4.006 oz Body Mass Index (BMI) 31.1 Intake & Output: Intake and Output for Last 24 Hours 02/22/25 02/23/25 02/24/25 23:59 23:59 23:59 Intake Total 525 / 525 Output Total 650 / 650 Balance 525 / 525 -650 / -650 Lab / Micro Data 02/24/25 04:20 02/24/25 04:20 Labs: Laboratory Results - last 24 hr 02/23/25 12:10: POC Glucose 263 H 02/23/25 16:11: POC Glucose 140 H 02/23/25 16:59: POC Glucose 144 H 02/23/25 21:33: POC Glucose 186 H 02/24/25 04:20: WBC 6.9, RBC 4.18 L, Hgb 12.7, Hct 37.4, MCV 89.5, MCH 30.4, MCHC 34.0, RDW Std Deviation 39.8, RDW Coeff of Brett 12.3, Plt Count 267, MPV 10.1, Immature Gran % (Auto) 0.300, Neut % (Auto) 39.4 L, Lymph % (Auto) 45.8 H, [place] % (Auto) 12.0 H, Eos % (Auto) 1.9, Baso % (Auto) 0.6, Absolute Neuts (auto) 2.7, Absolute Lymphs (auto) 3.17, Nucleated RBC % 0, ESR 23, Sodium 142, Potassium 3.6, Chloride 106, Carbon Dioxide 24.9, Anion Gap 11, BUN 11, C reatinine 0.54 L, Estim Creat Clear Calc 133.31, Est GFR (MDRD) Non-Af 106, BUN/Creatinine Ratio 19.8, Glucose 103 H, Calcium 9.3, Phosphorus 4.3, Magnesium 2.2, Total Bilirubin 0.85, AST 82 H, ALT 31, Alkaline Phosphatase 92, C-React Prot Ext Range 43.20 H, Total Protein 7.0, Albumin 3.8, Globulin 3.2, Albumin/Globulin Ratio 1.2, TSH 2.330 02/24/25 08:11: POC Glucose 114 H 02/24/25 10:42: POC Glucose 250 H Radiography Diagnostic Testing: Radiology Impression Echocardiogram 02/23/25 05:55 Interpretation Summary Normal LV size. The left ventricular ejection fraction is 35 %. Stage 2 diastolic dysfunction. There is moderate global hypokinesis of the left ventricle. Mild concentric left ventricular hypertrophy. Contrast injection was performed. Ordering Physician: D[place] Cook Referring Physician: Jese Zheng Performed By: Shanelle Roger, RDCS, RVT Lumbar Spine CT 02/23/25 18:36 IMPRESSION: Lumbar spine scoliosis and degeneration. Lumbar spine degeneration mainly L5-S1. No acute findings. Reading Location: [place] [id number] Rhythm Strip Rhythm Strip: Sinus Tach Rate: 110 Ectopy: None Physical Exam Const alert, oriented x3 and no apparent distress General Appearance: cooperative and well developed HEENT normocephalic, head/scalp atraumatic, moist oral mucous membranes and oropharynx normal Eyes PERRL and EOMs intact bilaterally Neck no lymphadenopathy and supple Lymph Lymphatic: no lymphadenopathy noted and no lymphedema noted Resp Resp Narrative: mildly diminished breath sounds bibasally, no wheezes or crackles. On 2L of oxygen by nasal canula Cardio regular rate, regular rhythm, S1 normal heart sound, S2 normal heart sound and no murmurs GI normal to inspection, nondistended, normoactive bowel sounds, soft to palpation, non-tender and non-distended Extremity normal capillary refill, no clubbing, cyanosis or edema and no calf tenderness General Extremity: no tenderness to palpation of joints or extremities Skin General Skin Exam: no breakdown Neuro CN's II-XII intact bilaterally, no focal motor deficits, no sensory deficits noted and deep tendon reflexes 2+ bilaterally Motor Exam: general weakness Psych thought process normal and cooperative Appearance: appropriate Assessment & Plan Assessment/Plan (1) Hypoxia: PLAN: Plan #Nonstemi * Patient admitted with a complaint of shortness of breath and chest pain. She was initially on antibiotics but these were discontinued due to low blood risk for pneumonia in the absence of elevated white cell count and no focal infiltrate, no fever or productive cough. * 2D echo showed EF of 35% with stage II diastolic dysfunction and moderate global hypokinesis. * She could not tolerate cardiac cath as she could not lay flat due to back pain. * Per cardiology to have medical management for now. On aspirin and statin. Currently on Lasix also. His shortness of breath is improving. He is on 2 L of oxygen today. * #Hypoxia: * Was on IV Lasix 40 mg daily but this was discontinued. * Currently on 2 L of oxygen. * Breathing treatments with bronchodilators. * Titrate oxygen to maintain saturation above 90%. * on jardiance #Intractable back pain * Lumbar spine CT showed lumbar spine scoliosis and degeneration mainly of L5-S1 * PT.OT on board. Fall precautions #Type 2 diabetes mellitus: * On Lantus. It appears her home dose is 1 112 units of Lantus daily. * Dose decreased to 40 units daily due to her nausea on admission. * Oral meds on hold. Insulin sliding scale. Accu-Cheks ACHS. A1c is pending #Benign essential hypertension: On carvedilol and lisinopril #Hyperlipidemia: On statin #DVT prophylaxis: Lovenox CODE STATUS: Full code Disposition: Transfer to PCU Charges/Coding Visit Charges Inpatient E&M: 48219 Subs Hosp L2
[2025-02-24] MEDS: Insulin Glargine-YFGN 100 UNIT/ML Pen 40 UNIT SC (21:47)
[2025-02-25 06:00] VITALS: BMI 30.2
[2025-02-25 06:25] VITALS: BP 125/78; PULSE 99; RESP 16; TEMP 36.7; O2SAT 92
[2025-02-25 07:05] LABS: Anion Gap 15 (5-15); BUN 11 mg/dL (4-19); BUN/Creat Ratio 15.1 RATIO (10-20); Calcium,Total 9.2 mg/dL (7.6-11.0); Carbon Dioxide 17.7 mmol/L (21.0-32.0); Chloride 108 mmol/L (98-108); Estimated Creatinine Clearance 100.46 ml/min (50-250); Glucose 126 mg/dL (70-99); Potassium 4.2 mmol/L (3.3-5.1)
[2025-02-25 08:20] VITALS: BP 117/82; PULSE 91; RESP 18; TEMP 37.2; O2SAT 94
[2025-02-25] MEDS: Lidocaine 5% Patch 1 PATCH TOPICAL (08:23)
[2025-02-25] MEDS: Calcium Carb/Vitamin D 1 TABLET Tablet PO (08:23)
[2025-02-25] MEDS: Aspirin E.C. 81 MG Tablet PO (08:23)
[2025-02-25 09:05] LABS: Hematocrit 35.2 % (37-47); Hemoglobin 11.8 g/dL (12.0-15.0); Immature Granulocytes Count 0.010 X10^3/uL (0.0-0.0); Mean Corp Hgb Conc 33.5 g/dL (32-36); Mean Corpuscular Volume 91.4 fL (81-99); Mean Platelet Vol. 9.8 fl (6.2-12.0); NRBC Flagged by Analyzer 0 % (0-5); Platelet Count 261 K/mm3 (150-450); RBC Distribution Width CV 12.5 % (11.6-14.6); RBC Distribution Width SD 41.2 fl (35.1-43.9); Red Blood Count 3.85 M/mm3 (4.2-5.4); White Blood Count 6.7 K/mm3 (4.4-11.0)
[2025-02-25 09:10] VITALS: O2SAT 94
[2025-02-25 10:47] VITALS: O2SAT 87; O2SAT 94; O2SAT 95
--- NOTE | 2025-02-25 14:34 | DS.PCM_ITS ---
Providers Date of Admission: 02/22/25 Date of Discharge: 02/25/25 Primary Care Physician: Dr. Jese Zheng, Consultations 02/22/25 21:12 Consult: Cardiology Routine Consulting Provider: Elver Montero Reason for Consult: NSTEMI, congestive heart failure EMERGENT Consult: Yes MD Notified: Yes Date Notified: 02/22/25 Time Notified: 20:25 Method of Notification: Text Reason For Visit: PNEUMONIA, NSTEMI, CONGESTIVE HEART FAILURE Diagnosis Discharge Diagnosis (1) Hypoxia: Status: Acute Code(s): R09.02 - Hypoxemia Plan #Nonstemi * Patient admitted with a complaint of shortness of breath and chest pain. She was initially on antibiotics but these were discontinued due to low blood risk for pneumonia in the absence of elevated white cell count and no focal infiltrate, no fever or productive cough. * 2D echo showed EF of 35% with stage II diastolic dysfunction and moderate global hypokinesis. * She could not tolerate cardiac cath as she could not lay flat due to back pain. * Per cardiology to have medical management for now. On aspirin and statin. Currently on Lasix also. His shortness of breath is improving. He is on 2 L of oxygen today. * #Hypoxia: * Was on IV Lasix 40 mg daily but this was discontinued. * Currently on 2 L of oxygen. * Breathing treatments with bronchodilators. * Titrate oxygen to maintain saturation above 90%. * on jardiance #Intractable back pain * Lumbar spine CT showed lumbar spine scoliosis and degeneration mainly of L5-S1 * PT.OT on board. Fall precautions #Type 2 diabetes mellitus: * On Lantus. It appears her home dose is 1 112 units of Lantus daily. * Dose decreased to 40 units daily due to her nausea on admission. * Oral meds on hold. Insulin sliding scale. Accu-Cheks ACHS. A1c is pending #Benign essential hypertension: On carvedilol and lisinopril #Hyperlipidemia: On statin #DVT prophylaxis: Lovenox CODE STATUS: Full code Disposition: Transfer to PCU Medications at Discharge Home Medications albuterol sulfate 90 mcg/actuation aerosol inhaler 2 puff inhalation Q4H PRN PRN Wheezing 04/08/14 calcium 315 mg (as citrate)-vitamin D3 6.25 mcg (250 unit) tablet 1 tab PO DAILY 09/18/14 lisinopril 10 mg tablet 1 tab PO DAILY 04/07/17 magnesium citrate 150 ml PO Q6H PRN PRN Constipation #300 mL 01/22/19 albuterol sulfate 2.5 mg/3 mL (0.083 %) solution for nebulization 2.5 mg inhalation Q4H PRN shortness of breath or wheezing 05/11/19 alcohol swabs (BD Alcohol Swabs) See Rx Instructions topical .COMPLEX 05/11/19 aspirin 81 mg tablet,delayed release (Adult Low Dose Aspirin) 81 mg PO DAILY 05/11/19 atorvastatin 40 mg tablet 40 mg PO DAILY 05/11/19 blood sugar diagnostic (FreeStyle Lite Strips) #10 ea 05/11/19 blood-glucose meter (FreeStyle Lite Meter kit) #1 ea 05/11/19 famotidine 20 mg tablet 20 mg PO BID 05/11/19 insulin degludec 100 unit/mL (3 mL) subcutaneous pen (Tresiba FlexTouch U-100 insulin) 112 unit subcut QHS 05/11/19 lancets 30 gauge ([employer] Super Thin Lancets) #25 ea 05/11/19 mupirocin 2 % topical ointment 1 applic topical BID 05/11/19 pen needle, diabetic 31 gauge x 3/16 (1st Tier Unifine Pentips) #30 ea 05/11/19 polyethylene glycol 3350 17 gram/dose oral powder (Miralax) 17 g PO BID 05/11/19 flash glucose sensor (FreeStyle Michi 14 Day Sensor kit) #2 ea 02/26/20 insulin aspart U-100 100 unit/mL (3 mL) subcutaneous pen (Novolog FlexPen U-100 Insulin aspart) 20 unit (0.2 mL) subcut TID #24 mL 04/05/20 metformin 1,000 mg tablet 1,000 mg PO BID diabetes 02/06/21 cyanocobalamin (vitamin B-12) 1,000 mcg tablet,extended release 2,000 mcg PO DAILY 02/22/25 dulaglutide 4.5 mg/0.5 mL subcutaneous pen injector (Trulicity) 4.5 mg subcut QWEEK 02/22/25 empagliflozin 10 mg tablet (Jardiance) 25 mg PO BREAKFAST 02/22/25 fluoxetine 20 mg capsule 20 mg PO DAILY 02/22/25 gabapentin 100 mg capsule 100 mg PO QHS 02/22/25 carvedilol 3.125 mg tablet 3.125 mg PO BIDCM #60 tabs 02/25/25 Hospital Course Operations None Procedures 2-D Echocardiogram Summary of Care Provided Minutes Spent on Discharge: 45 Hospital Course: Patient is a 59-year-old female was admitted to the ED on 02/22/2025 with complaint of chest pain which started about a week ago and gradually progressed and worsened. It worsened after laying down and after eating. She had a past medical history of diabetes but denied any history of coronary artery disease. Chest x-ray. Troponin was elevated at 181 and BNP was also elevated at 3685. She was therefore admitted to be managed for non-STEMI as well as acute exacerbation of heart failure with unknown EF. Her started on aspirin and high intensity statin and cardiology was consulted. She was unable to have cardiac cath because she could not lay flat in the [employer]. 2D echo showed EF of 35% with normal left ventricular size and stage II diastolic dysfunction with moderate global hypokinesis of the left ventricle as well as mild concentric left ventricular hypertrophy. She was placed on Lasix on account of the reduced EF. She was initially placed on antibiotics due to concern for pneumonia but these were subsequently discontinued as she did not have any productive cough or elevated white cell count or fever or even focal infiltrate. She was also placed on Jardiance. Patient was transferred out of the ICU and did well. Cardiology recommended that her medical optimization be done medication hoyos and she could follow-up with them on outpatient basis for cardiac cath down the line. Patient was discharged home on 02/26/2025. Of note patient had some episodes of encephalopathy during admission and she had EEG which did not show any evidence of seizures but does showed mild encephalopathy. However her mentation had subsequently improved and normalized by the time of discharge. She was discharged on p.o. carvedilol 3.125 mg twice daily and to continue her home aspirin and statin as well as Jardiance. She is follow-up with her primary care doctor and follow-up with cardiology within 1 to 2 weeks. She was discharged on 2 L of oxygen by nasal cannula after she had walking pulse ox which showed that she required the oxygen. She was not discharged on Lasix as per cardiology recommendation. Patient was seen with her nurse by her bedside on the day of discharge. She felt much better and had no complaints. She had an uneventful night. Review of systems otherwise negative. Labs and vitals reviewed. Home medication reviewed and reconciled. Physical Exam Const alert, oriented x3, no apparent distress, average body habitus, no limitations and well nourished General Appearance: cooperative, comfortable, well kempt and well developed Orientation / Consciousness: awake HEENT normocephalic, head/scalp atraumatic, hearing grossly normal bilaterally, moist oral mucous membranes and oropharynx normal Mouth: oral and palatal mucosa normal Eyes EOMs intact bilaterally and conjunctivae normal Neck supple Lymph Lymphatic: no lymphedema noted Resp normal respiratory effort, normal air movement, no retractions, no use of accessory muscles and clear to auscultation bilaterally Cardio regular rate, regular rhythm, S1 normal heart sound, S2 normal heart sound, no murmurs and no rub GI normal to inspection, nondistended, normoactive bowel sounds, soft to palpation, non-tender and non-distended no CVA tenderness Back/Spine Back/Spine Narrative: Patient appears to move all extremities well as she is squirming around in bed a bit Extremity normal to inspection, full ROM, normal capillary refill, no clubbing, cyanosis or edema and no calf tenderness Extremity Narrative: 2+ pedal pulses General Extremity: no tenderness to palpation of joints or extremities Skin no rashes or lesions noted General Skin Exam: no breakdown and turgor normal Neuro oriented x3, CN's II-XII intact bilaterally, moves all extremities, no focal motor deficits, no sensory deficits noted and deep tendon reflexes 2+ bilaterally Sensorium / Orientation: awake and alert Speech: speech normal Motor Exam: strength 5/5 throughout Psych thought process normal, cooperative and affect normal Appearance: appropriate Weight / BMI Weight Weight: 199 lb 1.239 oz Body Mass Index (BMI) 30.2 ABG / Lab / Microbiology Data 02/25/25 08:42 02/25/25 05:54 Laboratory: Laboratory Results - last 24 hr 02/24/25 16:50: POC Glucose 209 H 02/24/25 21:45: POC Glucose 192 H 02/25/25 05:54: WBC Cancelled, Corrected WBC Cancelled, RBC Cancelled, Hgb Cancelled, Hct Cancelled, MCV Cancelled, MCH Cancelled, MCHC Cancelled, RDW Std Deviation Cancelled, RDW Coeff of Brett Cancelled, Plt Count Cancelled, MPV Cancelled, Immature Gran % (Auto) Cancelled, Neut % (Auto) Cancelled, Lymph % (Auto) Cancelled, [place] % (Auto) Cancelled, Eos % (Auto) Cancelled, Baso % (Auto) Cancelled, Absolute Neuts (auto) Cancelled, Absolute Lymphs (auto) Cancelled, Total Counted Cancelled, Neutrophils % (Manual) Cancelled, Band Neutrophils % Cancelled, Lymphocytes % (Manual) Cancelled, Monocytes % (Manual) Cancelled, Eosinophils % (Manual) Cancelled, Basophils % (Manual) Cancelled, Metamyelocytes % Cancelled, Myelocytes % Cancelled, Promyelocytes % Cancelled, Blast Cells % Cancelled, Plasma Cell % (Manual) Cancelled, Other Cells % Cancelled, Nucleated RBC % Cancelled, Nucleated RBCs/100 WBC Cancelled, Differential Comment Cancelled, Diff Path Review Cancelled, Hypersegmented Neuts Cancelled, Atypical Lymphocytes Cancelled, Reactive Lymphocytes Cancelled, Smudge Cells Cancelled, Toxic Granulation Cancelled, Toxic Vacuolation Cancelled, Dohle Bodies Cancelled, Wendy Rods Cancelled, Platelet Estimate Cancelled, Plt Morphology Comment Cancelled, RBC Morphology Cancelled 02/25/25 05:54: RBC Morphology Cancelled, Polychromasia Cancelled, Hypochromasia Cancelled, Basophilic Stippling Cancelled, Anisocytosis Cancelled, Microcytosis Cancelled, Macrocytosis Cancelled, Spherocytes Cancelled, Sickle Cells Cancelled, Target Cells Cancelled, Tear Drop Cells Cancelled, Ovalocytes Cancelled, Stomatocytes Cancelled, Callaway-Elverta Bodies Cancelled, Alyson Cells Cancelled, Bite Cells Cancelled, Crenated Cell Cancelled, Acanthocytes (Spur) Cancelled, Rouleaux Cancelled, Schistocytes Cancelled, Sodium 140, Potassium 4.2, Chloride 108, Carbon Dioxide 17.7 L, Anion Gap 15, BUN 11, Creatinine 0.70, Estim Creat Clear Calc 100.46, Est GFR (MDRD) Non-Af 98, BUN/Creatinine Ratio 15.1, Glucose 126 H, Calcium 9.2 02/25/25 06:31: POC Glucose 132 H 02/25/25 08:42: WBC 6.7, RBC 3.85 L, Hgb 11.8 L, Hct 35.2 L, MCV 91.4, MCH 30.6, MCHC 33.5, RDW Std Deviation 41.2, RDW Coeff of Brett 12.5, Plt Count 261, MPV 9.8, Immature Gran % (Auto) 0.100, Neut % (Auto) 49.4, Lymph % (Auto) 36.3, [place] % (Auto) 12.0 H, Eos % (Auto) 1.6, Baso % (Auto) 0.6, Absolute Neuts (auto) 3.3, Absolute Lymphs (auto) 2.42, Nucleated RBC % 0 02/25/25 11:44: POC Glucose 155 H D/C Instructions Discharge Activity: Return to Normal Activity Weight Bearing Status: Weight bearing as tolerated Call your doctor if you observe: Fever of 101 or Higher, Shortness of breath, Dizziness and Chest pain DC O2, CPAP, BIPAP Needs Home O2 Discharge instructions: Yes Type of respiratory needs?: Oxygen Oxygen frequency: Continuous Continuous oxygen liters per minute: 2 DC home with Oxygen: Yes Home O2 MD Review: I have reviewed the oxygen testing, and the patient qualifies for home oxygen equipment and portability. The patient is mobile in the home and the community. Meaningful Use Info Meaningful Use Meaningful Use Diagnoses (Choose all that apply): AMI AMI/Post PCI/Angioplasty Aspirin given w/in 24hrs of arrival?: Yes ASA at discharge?: Yes Antiplatelet Therapy at Discharge:: Yes Statins at discharge?: Yes Tayo/ARB at discharge?: Yes Beta Noris at discharge?: Yes Done w/ Acute ND measure.: Yes Documented LVEF (%): 35 Discharge Plan Admission Admit Date/Time: 02/22/25 20:21 Primary Reason for Your Visit: nonstemi, hypoxia Attending Provider: Clarissa Herrera Primary Care Provider: Jese Zheng Consulting Providers: Denton Cook; Faye Mace; Elver Montero; Capri Tucker; Justina Abraham; Juju Love; Gopal Talbot; Chet Sidhu; Amrita Woo; MARITZA KANG; Gayathri Jacome; Ellen Markham; Gus Mott; Mary Kay Dugan Instructions Patient Instructions: Coping with Heart Failure, Heart Attack Dc Discharge Orders/Prescriptions Prescriptions: New carvedilol 3.125 mg Tablet 3.125 mg PO BIDCM Qty: 60 2RF Continued albuterol sulfate 2.5 mg /3 mL (0.083 %) solution for nebulization 2.5 mg INHALATION Q4H PRN (Reason: shortness of breath or wheezing) alcohol swabs [BD Alcohol Swabs] Pads, Medicated See Rx Instructions TOPICAL .COMPLEX Rx Instructions: TOPICAL use 4-5 x qd to check BG and with insulin injections; aspirin [Adult Low Dose Aspirin] 81 mg tablet,delayed release (DR/EC) 81 mg PO DAILY atorvastatin 40 mg tablet 40 mg PO DAILY (DME) FreeStyle Lite Strips Strip See Rx Instructions .ROUTE .MEDSUPPLY Qty: 10 Rx Instructions: use to check BG tid (DME) blood-glucose meter [FreeStyle Lite Meter] Kit See Rx Instructions .ROUTE .MEDSUPPLY Qty: 1 Rx Instructions: As directed (DME) pen needle, diabetic [1st Tier Unifine Pentips] 31 gauge x 3/16 needle See Rx Instructions .ROUTE .MEDSUPPLY Qty: 30 Rx Instructions: use 4 x qd to inject insulin famotidine 20 mg tablet 20 mg PO BID insulin degludec [T[employer]iba FlexTouch U-100] 100 unit/mL (3 mL) insulin pen 112 unit SC QHS mupirocin 2 % ointment 1 applic TOPICAL BID polyethylene glycol 3350 [Miralax] 17 gram/dose powder 17 g PO BID (DME) lancets [[employer] Super Thin Lancets] 30 gauge misc See Rx Instructions .ROUTE .MEDSUPPLY Qty: 25 Rx Instructions: use to check BG 1 x qd (DME) FreeStyle Michi 14 Day Sensor Kit See Rx Instructions .ROUTE .MEDSUPPLY Qty: 2 6RF Rx Instructions: As directed metformin 1,000 mg tablet 1,000 mg PO BID albuterol sulfate 1 INHALER inhaler 2 puff inhalation Q4H PRN PRN (Reason: Wheezing) Patient Comments: ASTHMA calcium citrate-vitamin D3 1 EACH tablet 1 tab PO DAILY Patient Comments: SUPPLEMENT lisinopril 10 MG tablet 1 tab PO DAILY Patient Comments: TAKE 1 TABLET EVERY DAY magnesium citrate 300 ML solution 150 ml PO Q6H PRN PRN (Reason: Constipation) Qty: 300 0RF cyanocobalamin (vitamin B-12) 1,000 mcg tablet extended release 2,000 mcg PO DAILY Jardiance 10 mg tablet 25 mg PO BREAKFAST Trulicity 4.5 mg/0.5 mL pen injector 4.5 mg subcut QWEEK fluoxetine 20 mg capsule 20 mg PO DAILY gabapentin 100 mg capsule 100 mg PO QHS Novolog FlexPen U-100 Insulin 100 unit/mL (3 mL) insulin pen 20 unit SC TID MDD 80 Qty: 24 4RF Rx Instructions: plus sliding scale Referrals / Follow Up: Elver Montero MD [Med Staff - Active Staff] - Within 1 Month Jese Zheng DO [Primary Care Provider] - Within 1 Week Disposition Disposition (needs filled in before D/C Order can be placed): Home, Self Care Charges/Coding Visit Charges Inpatient E&M: 88332 Disch Hosp >30min
--- NOTE | 2025-02-25 14:43 | CASEMGMT ---
Patient has order for discharge. Patient is requiring oxygen at discharge. RN CM in to discuss needs at discharge. Patient prefers [facility] for DME. Patient denies further needs or concerns at discharge. Script received for home oxygen and referral made to [facility] via [employer], portable tank provided from [employer]. RN CM updated discharge plan.
[2025-02-25 15:30] VITALS: BP 128/79; PULSE 95; RESP 18; TEMP 37.1; O2SAT 97
== END 2025-02-25 15:40 | disposition home or self-care (01) | DRG 281 ==
LOC: ED 20:11 → PCU 20:30 → ICU 02-23 09:15 → PCU 02-24 13:12
PROVIDERS: Internal Medicine; Admitting Provider Family Medicine; Emergency Provider Emergency Medicine; PCP Student in an Organized Health Care Education/Training Program; Visit Provider Student in an Organized Health Care Education/Training Program
DX: I21.4 Non-ST elevation (NSTEMI) myocardial infarction (principal); G93.40 Encephalopathy, unspecified; I42.9 Cardiomyopathy, unspecified; E11.42 Type 2 diabetes mellitus with diabetic polyneuropathy; I10 Essential (primary) hypertension; E66.9 Obesity, unspecified; Z79.4 Long term (current) use of insulin; E78.5 Hyperlipidemia, unspecified; F17.200 Nicotine dependence, unspecified, uncomplicated; M51.369 Other intervertebral disc degeneration, lumbar region without mention of lumbar back pain or lower extremity pain; R09.02 Hypoxemia; Z53.8 Procedure and treatment not carried out for other reasons; Z68.31 Body mass index [BMI] 31.0-31.9, adult; Z79.82 Long term (current) use of aspirin; Z79.84 Long term (current) use of oral hypoglycemic drugs; Z79.85 Long-term (current) use of injectable non-insulin antidiabetic drugs; Z79.899 Other long term (current) drug therapy
CPT/HCPCS: 36415; 70450; 71046; 72132; 74176; 80048; 80053; 82962; 83036; 83605; 83735; 83880; 84100; 84443; 84484; 85025; 85610; 85652; 86140; 93005; 93306; 94640; 95819; 97802; 97803; 99285; Q9957; Q9967; A4216; C1769; C1894; C8929; J1938; J2405

== ENCOUNTER 2025-02-28 04:50 | Inpatient (IN) | payer OTHER, SELFPAY ==
[2025-02-28] VITALS (15 sets, daily range): BP systolic 113–177; BP diastolic 73–106; PULSE 87–137; RESP 18–32; TEMP 35.9–36.9; O2SAT 93–100; BMI 32.8; BMI 32.4
--- NOTE | 2025-02-28 05:09 | CT_ITS ---
PROCEDURE: CTA CHEST W/WO CONTRAST 02/28/2025 REASON FOR EXAM: DYSPNEA TECHNIQUE: CTA CHEST W/WO CONTRAST Multiplanar Sagittal and Coronal images were obtained. CONTRAST: Isovue 370 VOLUME: 100 mL One or more dose reduction techniques were used (e.g., Automated exposure control, adjustment of the mA and/or kV according to patient size, use of iterative reconstruction technique). RADIATION DOSE SUMMARY: CTDlvol: 23.75, 15.83 mGy DLP: 574.29 mGycm COMPARISON: CT abdomen/Pelvis without Cont 23-Feb-2025 10:40 AM FINDINGS: PULMONARY ARTERIES Respiratory motion and heterogeneous opacification limits evaluation of the bilateral upper lobe subsegmental pulmonary arteries. No intraluminal filling defect in the remaining pulmonary arteries suspicious for PE. AORTA No thoracic aortic aneurysm or dissection. Minimal scattered calcified atherosclerosis. LUNGS No pulmonary mass. Multifocal ground-glass opacities involving all lobes bilaterally, worsened since 02/23/2025. Interlobular septal and peribronchovascular interstitial thickening bilaterally. Right middle lobe nodule measuring 9.4 x 12.7 mm, unchanged since 02/23/2025 but 7.8 x 11.2 mm on 04/06/2021. PLEURAL SPACES Small pleural effusions bilaterally, which have increased since 02/23/2025. No pneumothorax. HEART No cardiomegaly. No significant pericardial effusion. Multivessel coronary artery calcification. MEDIASTINUM/HILUM Mildly prominent bilateral hilar and mediastinal lymph nodes, likely reactive in etiology. CHEST WALL The chest wall is unremarkable. BONES No focal osseous abnormality or acute fracture. Degenerative changes of the spine. UPPER ABDOMEN Hypodense 1.2 cm lesion in the left hepatic lobe, unchanged since 04/06/2021. CT/CTA Chest W/WO Contrast IMPRESSION: 1. No evidence of pulmonary embolus, with limited evaluation of the subsegment al pulmonary arteries in both upper lobes. 2. Worsening bilateral ground-glass opacities, likely changes of pulmonary mckay ma and/or multifocal pneumonia. 3. Bilateral pleural effusions, increased since 02/23/2025. 4. Interlobular septal and peribronchovascular interstitial thickening, likely interstitial edema or infectious/inflammatory process. 5. Right middle lobe nodule, stable since 02/23/2025 and mildly larger since 0 04/06/2021. The slow growth since 04/06/2021 favors benignity. Reading Location: [id number]
[2025-02-28 05:19] LABS: Hematocrit 39.3 % (37-47); Hemoglobin 13.1 g/dL (12.0-15.0); Immature Granulocytes Count 0.020 X10^3/uL (0.0-0.0); Mean Corp Hgb Conc 33.3 g/dL (32-36); Mean Corpuscular Volume 92.0 fL (81-99); Mean Platelet Vol. 9.7 fl (6.2-12.0); NRBC Flagged by Analyzer 0 % (0-5); Platelet Count 303 K/mm3 (150-450); RBC Distribution Width CV 12.4 % (11.6-14.6); RBC Distribution Width SD 41.7 fl (35.1-43.9); Red Blood Count 4.27 M/mm3 (4.2-5.4); White Blood Count 7.9 K/mm3 (4.4-11.0)
[2025-02-28] MEDS: Lorazepam 2 MG/ML WCH Syringe 1 MG IV (05:24)
--- OUTSIDE RECORDS SUMMARY | 2025-02-28 05:37 | XMS RPT_ITS | CCD ---
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 Name Role Phone Jese Zheng DO Primary Care Provider [facility], Shayan Unavailable ELENA SALMON Attending UnavailBRANDY Rowe Referring Unavailable JESE ZHENG Primary Care Unavailable Jese Zheng DO Primary Care Provider [facility], Shayan Unavailable [facility], Susana Unavailable [facility], Shayan [facility] Susana Unavailable JESE ZHENG Referring Unavailable JESE ZHENG Primary Care Unavailable Jese Zheng DO Primary Care Provider JESE ZHENG Referring Unavailable JESE ZHENG Primary Care Unavailable Louise TILE MOLDER HAND.PROFESSOR OF PHYSICSCorrine Unavailable Juliana TILE MOLDER HAND.Ankita URBINA Unavailable Sofia TILE MOLDER HAND.Natali URBINA Unavailable Dr. Jese Zheng DO Primary Care Provider Dr. John Catherine MD Emergency Provider Joyce DELACRUZ, Dr. Chawla Attending Provider Joyce DELACRUZ, Dr. Chawla Admit Provider Dr. Denton Cook MD Other Provider Javier DELACRUZ, Dr. Clarissa White Attending Provider Rodri SAGE, Dr. Mckinney Other Provider Winston DELACRUZ, Dr. Raya Other Provider Garrett DELACRUZ, Dr. Farooq Other Provider [phone] Leigh DELACRUZ, Dr. Horn Other Provider Juju Love MD Other Provider Dahiana COPE, Gopal Other Provider Nahum DELACRUZ, Dr. Rosenberg Other Provider Chilo DELACRUZ, Amrita Other Provider MARITZA CHAMORRO MD Other Provider Naa DELACRUZ, Gayathri Other Provider Rashi DELACRUZ, Dr. Hughes Other Provider Tiera DELACRUZ, Gus Other Provider Ritchie DELACRUZ, Mary Kay Other Provider Rodri SAGE, Dr. Mckinney Attending Provider Winston DELACRUZ, Dr. Raya Attending Provider Javier DELACRUZ, Dr. Clarissa White Other Provider [phone] [facility] Jese Primary Care Unavailable Faye Mace Attending Unavailable Cook, Denton Admitting Unavailable Joyce, Denton Consulting Unavailable Winston, [place] Consulting Unavailable Capri Tucker Consulting Unavailable Justina Abraham Consulting Unavailable Juju Love Consulting Unavailable Gopal Talbot Consulting Unavailable Chet Sidhu Consulting Unavailable Amrita Woo Consulting Unavailable MARITZA CHAMORRO Consulting Unavailable Gayathri Jacome Consulting Unavailable Ellen Markham Consulting Unavailable Gus Mott Consulting Unavailable Mary Kay Dugan Consulting Unavailable Faye Mace Consulting Unavailable Winston, Elver Attending Unavailable [facility] Jese Primary Care Unavailable Joyce Ednton Attending Unavailable Clarissa Herrera Cindy Attending Unavailable Javier, Clarissa Cindy Consulting Unavailable DoreenamClarissa Attending Unavailable [facility] Jese Primary Care Unavailable Cook, Denton Admitting Unavailable Cook, Denton Consulting Unavailable Faye Mace Consulting Unavailable Winston, Elver Consulting Unavailable Adeli, Amir Consulting Unavailable Zha, Justina Consulting Unavailable Juju Love Consulting Unavailable Gopal Talbot Consulting Unavailable Chet Sidhu Consulting Unavailable Amrita Woo Consulting Unavailable MARITZA CHAMORRO Consulting Unavailable Gayathri Jacome Consulting Unavailable Ellen Markham Consulting Unavailable Gus Mott Consulting Unavailable Mary Kay Dugan Consulting Unavailable ZHENG, JESE L Primary Care Unavailable ZHENG, JESE L Primary Care Unavailable ZHENG, JESE L Referring Unavailable ZHENG, JESE L Primary Care Unavailable SOFIA, NATALI MERT Referring Unavailable ZHENG, JESE L Referring Unavailable ZHENG, JESE L Primary Care Unavailable ZHENG, JESE L Primary Care Unavailable SOFIA, NATALI MERT Attending Unavailable ZHENG, JESE L Referring Unavailable ZHENG, JESE L Primary Care Unavailable ZHENG, JESE L Referring Unavailable ZHENG, JESE L Primary Care Unavailable ZHENG, JESE L Attending Unavailable ZHENG, JESE L Primary Care Unavailable ZHENG, JESE L Attending Unavailable ZHENG, JESE L Primary Care Unavailable ZHENG, JESE L Referring Unavailable ZHENG, JESE L Primary Care Unavailable ZHENG, JESE L Attending Unavailable ZHENG, JESE L Primary Care Unavailable ZHENG, JESE L Referring Unavailable ZHENG, JESE L Primary Care Unavailable ZHENG, JESE L Referring Unavailable ZHENG, JESE L Primary Care Unavailable JOHN BROWN Referring Unavailable ZHENG, JESE L Primary Care Unavailable JOHN BROWN Attending Unavailable ZHENG, JESE L Referring Unavailable ZHENG, JESE L Referring Unavailable ZHENG, JESE L Primary Care Unavailable ZHENG, JESE L Referring Unavailable ZHENG, JESE L Primary Care Unavailable ZHENG, JESE L Referring Unavailable ZHENG, JESE L Primary Care Unavailable ZHENG, JESE L Attending Unavailable ZHENG, JESE L Primary Care Unavailable SELF Referring Unavailable ZHENG, JESE L Primary Care Unavailable SELIN GARCIA A Attending Unavailable ZHENG, JESE L Primary Care Unavailable ZHENG, JESE L Referring Unavailable Allergies Allergy Classification Reported Allergen(s) Allergy Type Date of Onset Reaction(s) Facility Albuterol (2 sources) Albuterol Drug Allergy 7 Vomiting [facility] Cephalosporins (antibiotic) (2 sources) cefdinir Drug Allergy 9 Itching [facility] Work Phone: Opioid Agonists (2 sources) traMADol Drug Allergy 5 [facility] (20 sources) Albuterol; Translations: [ALBUTEROL SULFATE] Drug Allergy 7 Vomiting [facility] (20 sources) cefdinir; Translations: [CEFDINIR] Drug Allergy 9 Itching [facility] Work Phone: (20 sources) traMADol; Translations: [TRAMADOL] Drug Allergy 5 [facility] (20 sources) lac hydrin [Other] Propensity to adverse reactions 7 [facility] Work Phone: (2 sources) OTHER; Translations: [OTHER] Propensity to adverse reactions (disorder) 7 [facility] (4 sources) Lactate; Translations: [ammonium lactate] Drug Allergy 1 Other [facility] (4 sources) Phentermine; Translations: [phentermine HCl] Drug Allergy 1 Chest tightness [facility] (1 source) Albuterol Drug Allergy 5 [facility] (1 source) traMADol Drug Allergy 5 [facility] Medications Current Medications Medication Drug Class(es) Dates Sig (Normalized) Sig (Original) acetaminophen 325 mg / HYDROcodone bitartrate 5 mg oral tablet (6 sources) Opioid Agonist Start: 12-30-2024 End: 01-06-2025 take 1 tablet by mouth every eight hours as needed for pain and pain HYDROcodone-aceta minophen (NORCO) 5-325 mg per tablet Indications: Trigger middle finger of right hand , Right hand pain Take 1 tablet by mouth every 8 hours as needed for pain (severe right hand pain) for up to 7 days. 21 tablet 12/30/2024 01/06/2025 Active Start: 09-23-2024 End: 09-30-2024 take 1 tablet by mouth at bedtime as needed for pain and pain HYDROcodone-acetaminophen (NORCO) 5-325 mg per tablet Indications: Trigger middle finger of right hand , Right hand pain Take 1 tablet by mouth at bedtime as needed for pain (severe right hand pain) for up to 7 days. 7 tablet 09/23/2024 09/30/2024 Active Start: 07-27-2018 End: 07-29-2018 Hydrocodone-Acetaminophen 1 TABLET tablet Discontinued 1 {tbl} PO EVERY 4 HOURS NEEDED as needed for Pain 10 2 0 July 27, 2018 1:00am July 28, 2018 1:00am July 29, 2018 1:12am Abdominal pain Unspecified abdominal pain Start: 07-27-2018 End: 07-29-2018 take 1 tablet by mouth every four hours as needed Hydrocodone-Acetaminophen Discontinued 1 TABLET PO EVERY 4 HOURS NEEDED 10 2 July 27, 2018 1:00am July 29, 2018 1:12am [id number] 200 actuat albuterol 0.09 mg/actuat metered dose inhaler (20 sources) beta2-Adrenergic Agonist Start: 06-23-2024 End: 11-16-2024 take 2 puff(s) by inhalation every four hours as needed for wheezing albuterol HFA (VENTOLIN HFA) 90 mcg/actuation inhaler Indications: Shortness of breath , COVID-19 Inhale 2 puffs as instructed every 4 hours as needed. For wheezing/shortness of breath. 18 g 3 11/16/2024 Active Start: 01-25-2020 End: 04-26-2021 take 2 puff(s) by inhalation every four hours as needed for wheezing albuterol HFA (VENTOLIN HFA) 90 mcg/actuation inhaler Indications: Shortness of breath , COVID-19 Inhale 2 Puffs as instructed every 4 hours as needed. For wheezing/shortness of breath. 18 g 3 04/26/2021 Active Start: 11-18-2019 End: 11-15-2022 take 2.5 mg by inhalation every four hours as needed albuterol (PROVENTIL) 2.5 mg /3 mL (0.083 %) nebulizer solution Use 3 mL via nebulizer every 4 hours as needed for Wheezing/Shortness of Breath. Use over 5-15minutes. 1 Package 1 11/18/2019 11/15/2022 Discontinued Start: 05-11-2019 take 2.5 mg by inhal ation every four hours as needed for wheezing Albuterol Sulfate 2.5 mg /3 mL (0.083 %) solution for nebulization Active 2.5 mg INHALATION Q4H as needed for shortness of breath or wheezing May 11, 2019 12:00am Start: 04-08-2014 Albuterol Sulf ate 1 INHALER inhaler Active 2 NMA INHALATION EVERY 4 HOURS NEEDED as needed for Wheezing April 08, 2014 12:00am Start: 04-08-2014 take 1 puff(s) by in halation every four hours as needed Albuterol Sulfate Active 2 PUFF INHALATION EVERY 4 HOURS NEEDED April 08, 2014 12:00am Comment on above: Use 3 mL via nebuliz er every 4 hours as needed for Wheezing/Shortness of Breath. Use over 5-15minutes. Inhale 2 Puffs as in structed every 4 hours as needed. For wheezing/shortness of breath. amoxicillin 875 mg / clavulanate 125 mg oral tablet (2 sources) Penicillin-class Antibacterial Start: End: take 1 tablet by mouth twice daily amoxicillin-clavula koby acid (AUGMENTIN) 875-125 mg per tablet Indications: Acute non-recurrent sinusitis, unspecified location Take 1 tablet by mouth twice daily for 5 days. 10 tablet 0 04/05/2023 04/06/2023 Discontinued Comment on above: Take 1 tablet by raquel th twice daily for 5 days. aspirin 81 mg delayed release oral tablet (20 sources) Platelet Aggregation Inhibitor, Nonsteroidal Anti-inflammatory Drug Start: End: take 1 tablet by mouth once daily aspirin, enteric coated (ASPIRIN, ENTERIC COATED) 81 mg EC tablet Take 1 tablet by mouth once daily. 90 tablet 3 06/23/2024 Active Comment on above: Take 1 tablet by raquel th once daily. atorvastatin 40 mg oral tablet (20 sources) HMG-CoA Reductase Inhibitor Start: End: take 1 tablet by mouth once daily atorvastatin (LIPITOR) 40 mg tablet Take 1 tablet by mouth once daily. 90 tablet 3 06/23/2024 Active Comment on above: Take 1 tablet by raquel th once daily. azithromycin 250 mg oral tablet (9 sources) Macrolide Antimicrobial Start: End: azithromycin (ZITHROMAX Z-REKHA) 250 mg tablet Indications: Acute bronchitis, unspecified organism , Acute non-recurrent maxillary sinusitis Take 2 tablets day one, then, 1 tablet daily until gone. 6 tablet 1 09/20/2023 09/25/2023 Active Start: 08-27-2023 End: 09-01-2023 azithromycin (ZITHROMAX Z-PA K) 250 mg tablet Indications: Acute bronchitis, unspecified organism Take 2 tablets day one, then, 1 tablet daily until gone. 6 tablet 0 08/27/2023 09/01/2023 Active Start: 05-27-2023 End: 06-01-2023 azithromycin (ZITHROMAX Z-PA K) 250 mg tablet Indications: Acute bronchitis, unspecified organism Take 2 tablets day one, then, 1 tablet daily until gone. 6 tablet 0 05/27/2023 06/01/2023 Active Start: 04-10-2021 End: 04-15-2021 azithromycin (ZITHROMAX Z-PA K) 250 mg tablet Indications: Generalized abdominal pain Take 2 tablets day one, then, 1 tablet daily until gone. 6 tablet 04/10/2021 04/15/2021 Comment on above: Take 2 tablets day o ne, then, 1 tablet daily until gone. benzonatate 100 mg oral capsule (20 sources) Non-narcotic Antitussive Start: take 1 capsule by mouth every eight hours as needed benzonatate (TESSALON PERLES) 100 mg capsule Take 1 capsule by mouth three times a day as needed for cough. 30 capsule 1 09/20/2023 Active Start: 07-18-2021 End: 03-22-2022 take 1 capsule by mouth every eight hours as needed benzonatate (TESSALON PERLES) 100 mg capsule Take 1 capsule by mouth three times daily as needed for cough. 30 capsule 07/18/2021 03/22/2022 Discontinued (Course of therapy completed) Comment on above: Take 1 capsule by mo uth three times daily as needed for cough. Take 1 capsule by mo uth three times a day as needed for cough. Blood-Glucose Meter (Freestyle Lite Meter) kit (3 sources) Start: 05-11-2019 Blood-Glucose Meter (Freestyle Lite Meter) kit Active 0 .ROUTE .MEDSUPPLY 1 0 May 11, 2019 12:00am As directed Start: 05-11-2019 Blood-Glucose Meter (Freestyle Lite Meter) kit Active 0 .ROUTE .MEDSUPPLY 1 May 11, 2019 12:00am As directed Blood-Glucose Sensor (FREESTYLE MICHI 3 PLUS SENSOR) ingrid (20 sources) Start: 05-04-2024 Blood-Glucose Sensor (FREESTYLE MICHI 3 PLUS SENSOR) ingrid Use to monitor glucose continuously and replace sensor every 15 days 6 Each 3 05/04/2024 Active calcium citrate 1500 mg / cholecalciferol 250 unt oral tablet (20 sources) Vitamin D Start: 10-30-2021 End: 08-30-2022 take 1 tablet by mouth once daily calcium citrate-vitamin D3 (CITRACAL+D) 315 mg-5 mcg (200 unit) tab Take 1 tablet by mouth once daily. 30 tablet 3 10/30/2021 03/22/2022 Discontinued Start: 06-11-2018 End: 10-30-2021 take 2 tablets by mouth twice daily calcium citrate-vitamin D3 (CITRACAL+D) 315-200 mg-unit tab TAKE 2 TABLETS BY MOUTH TWICE DAILY 60 tablet 11 06/11/2018 10/30/2021 Discontinued Start: 04-08-2014 End: 11-25-2023 Calcium Citrate-Vitamin D3 1 EACH tablet Active 1 {tbl} PO DAILY April 08, 2014 12:00am Start: 04-08-2014 take 2 tablets by mo [facility] twice daily Calcium Citrate-Vitamin D3 Active 2 TABLET PO TWICE A DAY April 08, 2014 12:00am Comment on above: TAKE 2 TABLETS BY MO [facility] TWICE DAILY Take 1 tablet by [facility] once daily. carvedilol 3.125 mg oral tablet (1 source) alpha-Adrenergic Noris, beta-Adrenergic Noris Start: 5 take 1 tablet by mouth twice daily at mealtime Carvedilol 3.125 mg Tablet Active 3.125 mg PO TWICE DAILY WITH MEALS 60 2 February 25, 2025 12:00am codeine phosphate 2 mg/ml / guaiFENesin 20 mg/ml oral solution (6 sources) Opioid Agonist Start: 4 End: 4 take 5 mL by mouth three times daily as needed for cough codeine-guaiFENesin (ROBITUSSIN AC) 10-100 mg/5 mL syrup Indications: Sinobronchitis Take 5 mL by mouth three times a day as needed for cough for up to 7 days. 118 mL 1 06/23/2024 06/30/2024 Active Start: 09-20-2023 End: 09-27-2023 take 5 mL by mouth three times daily as needed codeine-guaiFENesin (ROBITUSSIN AC) 10-100 mg/5 mL syrup Indications: Acute bronchitis, unspecified organism Take 5 mL by mouth three times a day as needed for cold/allergy symptoms or cough for up to 7 days. 118 mL 0 09/20/2023 09/27/2023 Active Start: 06-25-2022 End: 06-30-2022 take 5 mL by mouth four times daily as needed codeine-guaiFENesin (ROBITUSSIN AC) 10-100 mg/5 mL syrup Indications: Influenza A , Persistent cough , Fever, unspecified fever cause Take 5 mL by mouth four times daily as needed for up to 5 days. 100 mL 0 06/25/2022 06/30/2022 Active Comment on above: Take 5 mL by mouth f our times daily as needed for up to 5 days. Take 5 mL by mouth t hree times a day as needed for cold/allergy symptoms or cough for up to 7 days. diclofenac sodium 0.01 mg/mg topical gel (20 sources) Nonsteroidal Anti-inflammatory Drug Start: 01-16-2021 End: 06-29-2022 diclofenac (VOLTAREN ARTHRITIS PAIN) 1 % topical gel Apply 2 g to affected area four times daily. 100 g 1 06/29/2022 Active Comment on above: Apply 2 g to affecte d area four times daily. Dulaglutide (5 sources) GLP-1 Receptor Agonist Start: 02-22-2025 Dulaglutide (Trulicity) 4.5 mg/0.5 mL pen injector Active 4.5 mg SC EVERY WEEK February 22, 2025 12:00am Start: 02-22-2025 Dulaglutide (D ulaglutide 4.5 Mg/0.5 Ml Subcutaneous Pen Injector) 4.5 mg/0.5 mL pen injector Active 4.5 mg SC EVERY WEEK February 22, 2025 12:00am Start: 04-07-2017 End: 05-17-2019 Dulaglutide 0.75 MG/0.5 ML p en injector Discontinued 0.75 mg SQ EVERY WEEK April 07, 2017 12:00am May 17, 2019 3:46pm dulaglutide (TRULICITY) 4.5 mg/0.5 mL pen injector (20 sources) Start: 11-26-2024 inject 4.5 mg by subcutaneous injection every week dulaglutide (TRULICITY) 4.5 mg/0.5 mL pen injector Inject 4.5 mg subcutaneously one time a week. 6 mL 4 11/26/2024 Active Start: 07-23-2024 End: 11-26-2024 inject 4.5 mg by subcutaneous injection every week dulaglutide (TRULICITY) 4.5 mg/0.5 mL pen injector Inject 4.5 mg subcutaneously one time a week. 6 mL 4 07/23/2024 11/26/2024 Discontinued Start: 07-23-2024 inject 4.5 mg by sub cutaneous injection every week dulaglutide (TRULICITY) 4.5 mg/0.5 mL pen injector Inject 4.5 mg subcutaneously one time a week. 6 mL 4 07/23/2024 Active Start: 01-28-2024 End: 07-23-2024 inject 4.5 mg by subcutaneous injection every week dulaglutide (TRULICITY) 4.5 mg/0.5 mL pen injector Inject 4.5 mg subcutaneously one time a week. 6 mL 4 01/28/2024 07/23/2024 Discontinued Start: 01-28-2024 inject 4.5 mg by sub cutaneous injection every week dulaglutide (TRULICITY) 4.5 mg/0.5 mL pen injector Inject 4.5 mg subcutaneously one time a week. 6 mL 4 01/28/2024 Active Start: 07-25-2023 End: 01-09-2024 inject 4.5 mg by subcutaneous injection every week dulaglutide (TRULICITY) 4.5 mg/0.5 mL pen injector Indications: Uncontrolled type 2 diabetes mellitus with hyperglycemia (HCC) Inject 4.5 mg subcutaneously one time a week. 6 mL 3 07/25/2023 01/09/2024 Discontinued Start: 07-25-2023 inject 4.5 mg by sub cutaneous injection every week dulaglutide (TRULICITY) 4.5 mg/0.5 mL pen injector Indications: Uncontrolled type 2 diabetes mellitus with hyperglycemia (HCC) Inject 4.5 mg subcutaneously one time a week. 6 mL 3 07/25/2023 Active Comment on above: Inject 4.5 mg subcut aneously one time a week. empagliflozin 10 mg oral tablet (16 sources) Sodium-Glucose Cotransporter 2 Inhibitor Start: 025 take 1 tablet by mouth at breakfast Empagliflozin (Jardiance) 10 mg tablet Active 25 mg PO WITH BREAKFAST February 22, 2025 12:00am Start: 01-21-2025 take 1 tablet by raquel once daily at breakfast empagliflozin (JARDIANCE) 25 mg tablet Take 1 tablet by mouth daily with breakfast. 90 tablet 1 01/21/2025 Active Start: 11-26-2024 End: 01-21-2025 take 1 tablet by mouth once daily at breakfast empagliflozin (JARDIANCE) 10 mg tablet Take 1 tablet by mouth daily with breakfast. 30 tablet 2 11/26/2024 01/21/2025 Discontinued Start: 07-23-2024 End: 10-29-2024 take 1 tablet by mouth once daily at breakfast empagliflozin (JARDIANCE) 10 mg tablet Take 1 tablet by mouth daily with breakfast. 30 tablet 2 07/23/2024 10/29/2024 Discontinued ergocalciferol 1.25 mg oral capsule (20 sources) Provitamin D2 Compound Start: 06-23-2024 take 1 capsule by mouth every week ergocalciferol 50,000 unit capsule (VITAMIN D2, DRISDOL) Take 1 capsule by mouth one time a week. 12 capsule 3 06/23/2024 Active Start: 05-05-2024 take 1 capsule by mo [facility] every week ergocalciferol 50,000 unit capsule (VITAMIN D2, DRISDOL) Take 1 capsule by mouth one time a week. 12 capsule 3 05/05/2024 Active famotidine 20 mg oral tablet (20 sources) Histamine-2 Receptor Antagonist Start: 09-13-2019 End: 06-22-2021 famotidine (PEPCID) 40 mg tablet TAKE 1/2 (ONE-HALF) OF A TABLET TWICE DAILY. 09/13/2019 06/22/2021 Discontinued (Duplicate Entry) Start: 05-11-2019 End: 04-02-2023 take 1 tablet by mouth twice daily famotidine (PEPCID) 20 mg tablet Take 1 tablet by mouth two times a day. 180 tablet 3 06/23/2024 Active Comment on above: Take 1 tablet by raquel th twice daily. flash glucose scanning reader (FREESTYLE MICHI 3 READER) (20 sources) Start: 07-25-2023 flash glucose scanning reader (FREESTYLE MICHI 3 READER) Use to monitor blood glucose continuously 1 Each 07/25/2023 Active Start: 07-25-2023 flash glucose scanning reader (FREESTYLE MICHI 3 READER) Use to monitor blood glucose continuously 1 Each 0 07/25/2023 Active Comment on above: Use to monitor blood glucose continuously flash glucose sensor (FREESTYLE MICHI 14 DAY SENSOR) kit (20 sources) Start: 06-23-2024 flash glucose sensor (FREESTYLE MICHI 14 DAY SENSOR) kit Apply sensor to back of arm to check blood sugars as directed. Change sensor every 2 weeks and rotate arms. 6 Each 3 06/23/2024 Active Start: 04-02-2023 flash glucose sensor (FREESTYLE MICHI 14 DAY SENSOR) kit Apply sensor to back of arm to check blood sugars as directed. Change sensor every 2 weeks and rotate arms. 6 Each 3 04/02/2023 Active Start: 03-07-2022 End: 04-02-2023 flash glucose sensor (FREEST YLE MICHI 14 DAY SENSOR) kit Apply sensor to back of arm to check blood sugars as directed. Change sensor every 2 weeks and rotate arms. 6 Each 3 03/07/2022 04/02/2023 Discontinued Start: 03-07-2022 flash glucose sensor (FREESTYLE MICHI 14 DAY SENSOR) kit Apply sensor to back of arm to check blood sugars as directed. Change sensor every 2 weeks and rotate arms. 6 Each 3 03/07/2022 Active Start: 03-09-2021 End: 03-07-2022 flash glucose sensor (FREEST YLE MICHI 14 DAY SENSOR) kit Indications: Uncontrolled type 2 diabetes mellitus with polyneuropathy Apply sensor to back of arm to check blood sugars as directed. Change sensor every 2 weeks and rotate arms. 6 Each 3 03/09/2021 03/07/2022 Discontinued Start: 03-09-2021 flash glucose sensor (FREESTYLE MICHI 14 DAY SENSOR) kit Indications: Uncontrolled type 2 diabetes mellitus with polyneuropathy Apply sensor to back of arm to check blood sugars as directed. Change sensor every 2 weeks and rotate arms. 6 Each 3 03/09/2021 Active Start: 10-13-2020 End: 03-09-2021 flash glucose sensor (FREEST YLE MICHI 14 DAY SENSOR) kit Indications: Uncontrolled type 2 diabetes mellitus with polyneuropathy Apply sensor to back of arm to check blood sugars as directed. Change sensor every 2 weeks and rotate arms. 2 Each 5 10/13/2020 03/09/2021 Discontinued Comment on above: Apply sensor to back of arm to check blood sugars as directed. Change sensor every 2 weeks and rotate arms. Flash Glucose Sensor (Freestyle Michi 14 Day Sensor) kit (3 sources) Start: 02-26-2020 Flash Glucose Sensor (Freestyle Michi 14 Day Sensor) kit Active 0 .ROUTE .MEDSUPPLY 2 February 26, 2020 12:00am As directed Start: 02-26-2020 Flash Glucose Sensor (Freestyle Michi 14 Day Sensor) kit Active 0 .ROUTE .MEDSUPPLY 2 February 26, 2020 12:00am As directed FLUoxetine 20 mg oral capsule (20 sources) Serotonin Reuptake Inhibitor Start: 02-22-2025 take 1 capsule by mouth once daily Fluoxetine 20 mg capsule Active 20 mg PO DAILY February 22, 2025 12:00am Start: 02-19-2023 End: 04-02-2023 take 1 capsule by mouth once daily Fluoxetine 20 mg capsule Active 20 mg PO DAILY February 22, 2025 12:00am Comment on above: Take 1 capsule by [facility] once daily. In the morning, for depression fluticasone propionate 0.05 mg/actuat metered dose nasal spray (8 sources) Corticosteroid Start: 10-11-19 End: 01-09-20 take 2 spray(s) by mouth once daily fluticasone (FLONASE) 50 mcg/actuation nasal spray Indications: Ear fullness, bilateral Use 2 Sprays in each nostril once daily. Rinse mouth after use. 16 g 1 10/11/2023 01/09/2024 Active Comment on above: Use 2 Sprays in each nostril once daily. Rinse mouth after use. gabapentin 100 mg oral capsule (20 sources) Anti-epileptic Agent Start: 02-23-20 take 1 capsule by mouth at bedtime Gabapentin 100 mg capsule Active 100 mg PO AT BEDTIME February 22, 2025 12:00am Start: 07-24-2022 End: 03-27-2023 take 1 capsule by mouth at bedtime Gabapentin 100 mg capsule Active 100 mg PO AT BEDTIME February 22, 2025 12:00am Start: 01-18-2021 End: 06-22-2021 gabapentin (NEURONTIN) 300 m g capsule Take one(1) tablet daily at bedtime. 90 capsule 1 01/18/2021 06/22/2021 Discontinued (Course of therapy completed) Comment on above: Take 1-2 capsules by mouth daily at bedtime for 30 days. For foot pain glucagon 3 mg nasal powder (20 sources) Antihypoglycemic Agent Start: End: 2 glucagon (BAQSIMI) 3 mg/actuation nasal spray Use 1 [place] in the nose as needed for low blood sugar. May repeat after 15 minutes using a new device if there is no response. 1 Each 3 04/27/2022 Active Comment on above: Use 1 [place] in the n ose as needed for low blood sugar. May repeat after 15 minutes using a new device if there is no response. ibuprofen 800 mg oral tablet (20 sources) Nonsteroidal Anti-inflammatory Drug Start: 4 End: 5 take 1 tablet by mouth every eight hours as needed for pain ibuprofen (MOTRIN) 800 mg tablet TAKE 1 TABLET BY MOUTH EVERY 8 HOURS NEEDED FOR PAIN WITH FOOD 60 tablet 1 01/12/2025 Active Start: 08-06-2022 End: 04-07-2024 take 1 tablet by mouth every eight hours as needed for pain ibuprofen (MOTRIN) 800 mg tablet TAKE 1 TABLET BY MOUTH EVERY 8 HOURS NEEDED FOR PAIN WITH FOOD 60 tablet 1 08/27/2023 Active Start: 06-08-2021 End: 08-04-2022 take 1 tablet by mouth every eight hours as needed for pain ibuprofen (MOTRIN) 800 mg tablet Take 1 tablet by mouth every 8 hours as needed for Pain. Take with food. 60 tablet 3 11/14/2021 08/04/2022 Discontinued Start: 08-21-2019 End: 08-27-2019 take 1 tablet by mouth every eight hours as needed for pain Ibuprofen 600 MG tablet Discontinued 600 mg PO EVERY 8 HOURS NEEDED as needed for Pain Or Fever 30 0 August 21, 2019 1:00am August 27, 2019 9:51am Start: 06-12-2013 End: 08-27-2019 Ibuprofen 600 MG tablet Disc ontinued 800 mg PO EVERY 8 HOURS NEEDED as needed for Abdominal Pain June 12, 2013 1:00am August 27, 2019 9:52am Start: 06-12-2013 End: 08-27-2019 take 800 mg by mouth every eight hours as needed Ibuprofen Discontinued 800 MG PO EVERY 8 HOURS NEEDED June 12, 2013 1:00am August 27, 2019 9:52am Comment on above: Take 1 tablet by raquel th every 8 hours as needed for Pain. Take with food. TAKE 1 TABLET BY RAQUEL TH EVERY 8 HOURS NEEDED FOR PAIN WITH FOOD insulin aspart, human 100 unt/ml injectable solution (20 sources) Insulin Analog Start: 10-30-19 inject 20 [IU] by subcutaneous injection at mealtime, then inject 96 [IU] by subcutaneous injection once daily insulin aspart U-100 (NOVOLOG U-100 INSULIN ASPART) 100 unit/mL Inject 20 units subcutaneously as directed plus sliding scale with meals. (Max 96 units/day) 30 mL 10/29/2024 Active Start: 07-23-2024 End: 10-29-2024 inject 18 [IU] by subcutaneous injection at mealtime, then inject 80 [IU] by subcutaneous injection once daily insulin aspart U-100 (NOVOLOG U-100 INSULIN ASPART) 100 unit/mL Inject 18 units subcutaneously as directed plus sliding scale with meals. (Max 80 units/day) 30 mL 07/23/2024 10/29/2024 Discontinued Start: 06-27-2023 End: 07-23-2024 inject 16 [IU] by subcutaneous injection at mealtime insulin aspart U-100 (NOVOLOG U-100 INSULIN ASPART) 100 unit/mL Inject 16 units subcutaneously as directed plus sliding scale with meals. 06/27/2023 07/23/2024 Discontinued Start: 10-30-2022 End: 05-09-2023 inject 20 [IU] by subcutaneous injection three times daily before mealtime, then inject 84 [IU] by subcutaneous injection once daily insulin aspart U-100 (NOVOLOG) 100 unit/mL (3 mL) Inject 20 Units subcutaneously three times daily before meals. Plus sliding scale. TDD 84 units/day. 15 mL 2 02/01/2023 05/09/2023 Discontinued (Changing Therapy/Dosage Form) Start: 10-18-2022 End: 11-17-2022 inject 10 [IU] by subcutaneous injection three times daily before mealtime, then inject 84 [IU] by subcutaneous injection once daily insulin aspart U-100 (NOVOLOG FLEXPEN U-100 INSULIN) 100 unit/mL (3 mL) Inject 10 Units subcutaneously three times daily before meals. Plus sliding scale. TDD 84 units/day. 3 mL 2 10/18/2022 10/30/2022 Discontinued Start: 05-02-2022 End: 10-18-2022 inject 18 [IU] by subcutaneous injection three times daily before mealtime, then inject 84 [IU] by subcutaneous injection once daily insulin aspart U-100 (NOVOLOG) 100 unit/mL (3 mL) Indications: Type 2 diabetes mellitus with diabetic polyneuropathy (HCC) Inject 18 Units subcutaneously three times daily before meals. Plus sliding scale. TDD 84 units/day. 75 mL 3 05/02/2022 10/18/2022 Discontinued (Duplicate Entry) Start: 08-25-2021 End: 10-18-2022 inject 20 [IU] by subcutaneous injection three times daily before mealtime, then inject 84 [IU] by subcutaneous injection once daily insulin aspart U-100 (NOVOLOG FLEXPEN U-100 INSULIN) 100 unit/mL (3 mL) Indications: Uncontrolled type 2 diabetes mellitus with polyneuropathy Inject 20 Units subcutaneously three times daily before meals. Plus sliding scale. TDD 84 units/day. 08/25/2021 05/02/2022 Discontinued Start: 11-24-2020 End: 07-06-2021 inject 18 [IU] by subcutaneous injection three times daily before mealtime, then inject 84 [IU] by subcutaneous injection once daily insulin aspart U-100 (NOVOLOG FLEXPEN U-100 INSULIN) 100 unit/mL (3 mL) Indications: Uncontrolled type 2 diabetes mellitus with polyneuropathy Inject 18 Units subcutaneously three times daily before meals. Plus sliding scale. TDD 84 units/day. 25 Pen 3 11/24/2020 07/06/2021 Discontinued Start: 05-25-2019 End: 04-05-2020 Insulin Aspart U-100 (Novolo g Flexpen U-100 Insulin) 100 unit/mL (3 mL) insulin pen Discontinued 20 U SC THREE TIMES A DAY 18 0 February 19, 2020 10:53am April 05, 2020 4:48pm Start: 05-11-2019 End: 05-25-2019 Insulin Aspart U-100 (Novolo g Flexpen U-100 Insulin) 100 unit/mL (3 mL) insulin pen Discontinued 15 U SC THREE TIMES A DAY May 11, 2019 12:00am May 25, 2019 12:13pm Comment on above: Inject 20 Units subc utaneously three times daily before meals. Plus sliding scale. TDD 84 units/day. Inject 18 Units subc utaneously three times daily before meals. Plus sliding scale. TDD 84 units/day. Inject 10 Units subc utaneously three times daily before meals. Plus sliding scale. TDD 84 units/day. Inject 16 units subc utaneously as directed plus sliding scale with meals. 3 ml insulin degludec 200 unt/ml pen injector (20 sources) Insulin Analog Start: 10-29-2024 insulin degludec (TRESIBA FLEXTOUCH U-200) 200 unit/mL (3 mL) injection Inject 112 Units subcutaneously daily at bedtime. 18 mL 11 10/29/2024 Active Start: 04-23-2024 End: 10-29-2024 insulin degludec (TRESIBA FL EXTOUCH U-200) 200 unit/mL (3 mL) injection Inject 120 Units subcutaneously daily at bedtime. 27 mL 11 07/23/2024 10/29/2024 Discontinued Start: 10-31-2023 End: 04-23-2024 insulin degludec (TRESIBA FL EXTOUCH U-200) 200 unit/mL (3 mL) injection Inject 110 Units subcutaneously daily at bedtime. 10/31/2023 04/23/2024 Discontinued Start: 09-26-2023 End: 10-31-2023 insulin degludec (TRESIBA FL EXTOUCH U-200) 200 unit/mL (3 mL) injection Inject 100 Units subcutaneously daily at bedtime. 15 mL 11 09/26/2023 10/31/2023 Discontinued Start: 06-27-2023 End: 09-26-2023 insulin degludec (TRESIBA FL EXTOUCH U-200) 200 unit/mL (3 mL) injection Inject 90 Units subcutaneously daily at bedtime. 0 06/27/2023 09/26/2023 Discontinued Start: 11-15-2022 End: 05-09-2023 insulin degludec (TRESIBA) 2 00 unit/mL (3 mL) injection Inject 90 Units subcutaneously every morning. 43 mL 3 11/15/2022 05/09/2023 Discontinued (Changing Therapy/Dosage Form) Start: 10-18-2022 End: 11-15-2022 insulin degludec (TRESIBA) 2 00 unit/mL (3 mL) injection Inject 80 Units subcutaneously every morning. 54 mL 3 10/18/2022 11/15/2022 Discontinued Start: 09-13-2022 End: 10-18-2022 insulin degludec (TRESIBA) 2 00 unit/mL (3 mL) injection Inject 116 Units subcutaneously every morning. 54 mL 3 09/13/2022 10/18/2022 Discontinued (Adjust Sig - Block E-Cancel) Start: 08-06-2022 End: 09-13-2022 insulin degludec (TRESIBA) 2 00 unit/mL (3 mL) injection Inject 102 Units subcutaneously every morning. 6 Each 11 08/06/2022 09/13/2022 Discontinued Start: 03-22-2022 End: 08-04-2022 insulin degludec (TRESIBA) 2 00 unit/mL (3 mL) injection Inject 102 Units subcutaneously every morning. 6 Each 11 03/22/2022 08/04/2022 Discontinued Start: 02-08-2022 insulin deglud ec (TRESIBA FLEXTOUCH U-200) 200 unit/mL (3 mL) injection Inject 90 Units subcutaneously every morning. 14 Pen 3 02/08/2022 Active Start: 08-25-2021 End: 02-08-2022 insulin degludec (TRESIBA FL EXTOUCH U-100) 100 unit/mL (3 mL) injection pen Indications: Uncontrolled type 2 diabetes mellitus with polyneuropathy Inject 78 Units subcutaneously once daily. 08/25/2021 02/08/2022 Discontinued Start: 09-07-2020 End: 06-22-2021 insulin degludec (TRESIBA FL EXTOUCH U-100) 100 unit/mL (3 mL) injection pen Indications: Uncontrolled type 2 diabetes mellitus with polyneuropathy Inject 66 Units subcutaneously once daily. 20 Pen 3 01/19/2021 06/22/2021 Discontinued Start: 05-11-2019 Insulin Deglud ec (Tresiba Flextouch U-100) 100 unit/mL (3 mL) insulin pen Active 70 UNIT SC AT BEDTIME May 11, 2019 12:00am Comment on above: Inject 78 Units subc utaneously once daily. Inject 90 Units subc utaneously every morning. Inject 102 Units sub cutaneously every morning. Inject 116 Units sub cutaneously every morning. Inject 80 Units subc utaneously every morning. Inject 90 Units subc utaneously daily at bedtime. Inject 100 Units sub cutaneously daily at bedtime. Inject 110 Units sub cutaneously daily at bedtime. Insulin Degludec (Tresiba Flextouch U-100) 100 unit/mL (3 mL) insulin pen (2 sources) Start: 05-11-2019 Insulin Degludec (Tresiba Flextouch U-100) 100 unit/mL (3 mL) insulin pen Active 112 U SC AT BEDTIME May 11, 2019 12:00am isopropyl alcohol 0.7 ml/ml medicated pad (20 sources) Start: 10-13-2020 End: 11-26-2022 alcohol swabs (BD SINGLE USE SWABS REGULAR) Use as directed 4 to 5 times daily to check blood sugars and with insulin injections 360 Each 3 11/27/2022 Active Start: 05-11-2019 Alcohol Swabs (Bd Alcohol Swabs) pads, medicated Active 0 TOPICAL .COMPLEX 0 May 11, 2019 12:00am TOPICAL use 4-5 x qd to check BG and with insulin injections; Start: 05-11-2019 Alcohol Swabs (Bd Alcohol Swabs) pads, medicated Active 0 TOPICAL .COMPLEX May 11, 2019 12:00am TOPICAL use 4-5 x qd to check BG and with insulin injections; Comment on above: Use as directed 4 to 5 times daily to check blood sugars and with insulin injections lisinopril 10 mg oral tablet (20 sources) Angiotensin Converting Enzyme Inhibitor Start: 12-10-2024 take 1 tablet by mouth once daily lisinopril (ZESTRIL) 10 mg tablet Take 1 tablet by mouth once daily. 90 tablet 11 12/10/2024 Active Start: 04-07-2017 Lisinopril 10 MG tablet Active 1 {tbl} PO DAILY April 07, 2017 12:00am Start: 04-07-2017 End: 11-25-2023 take 1 tablet by mouth once daily lisinopril (ZESTRIL) 10 mg tablet Take 1 tablet by mouth once daily. 90 tablet 3 11/25/2023 Active Comment on above: Take 1 tablet by raquel th once daily. magnesium citrate 58.2 mg/ml oral solution (3 sources) Start: take 1 mL by mouth every six hours as needed for constipation Magnesium Citrate 300 ML solution Active 150 mL PO EVERY 6 HOURS NEEDED as needed for Constipation 300 0 January 22, 2019 5:13pm Start: 01-22-2019 take 1 mL by mouth e very six hours as needed Magnesium Citrate Active 150 ML PO EVERY 6 HOURS NEEDED 300 January 22, 2019 5:13pm metFORMIN hydrochloride 1000 mg oral tablet (20 sources) Biguanide Start: 02-06-2021 take 1 tablet by mouth once daily Metformin 1,000 mg tablet Active 1000 mg PO DAILY February 06, 2021 12:00am Start: 09-08-2020 End: 04-23-2024 take 1 tablet by mouth twice daily metFORMIN (GLUCOPHAGE) 1,000 mg tablet Take 1 tablet by mouth two times a day. 180 tablet 3 04/23/2024 Active Start: 01-28-2014 End: 05-17-2019 take 2 tablets by mouth twice daily at mealtime Metformin 500 MG tablet Discontinued 1000 mg PO TWICE DAILY WITH MEALS January 28, 2014 12:00am May 17, 2019 3:46pm Start: 01-28-2014 End: 05-17-2019 take 1000 mg by mouth twice daily at mealtime Metformin Discontinued 1000 MG PO TWICE DAILY WITH MEALS January 28, 2014 12:00am May 17, 2019 3:46pm Comment on above: Take 1 tablet by raquel th twice daily. mupirocin 0.02 mg/mg topical ointment (20 sources) RNA Synthetase Inhibitor Antibacterial Start: 06-23-2024 mupirocin (BACTROBAN) 2 % ointment Apply to affected area every 12 hours as needed (rash, skin lesions). 66 g 2 06/23/2024 Active Start: 10-30-2022 End: 01-24-2024 mupirocin (BACTROBAN) 2 % oi ntment Apply to affected area every 12 hours as needed (rash, skin lesions). 66 g 2 02/25/2023 Active Start: 07-30-2022 End: 10-30-2022 mupirocin (BACTROBAN) 2 % oi ntment Apply to affected area every 12 hours as needed (rash, skin lesions). 60 g 2 07/30/2022 10/30/2022 Discontinued Start: 04-27-2022 End: 07-27-2022 mupirocin (BACTROBAN) 2 % oi ntment Apply to affected area every 12 hours as needed (rash, skin lesions). 60 g 2 04/27/2022 07/27/2022 Discontinued Start: 03-06-2022 End: 04-27-2022 mupirocin (BACTROBAN) 2 % oi ntment Apply to affected area every 12 hours as needed (rash, skin lesions). 30 g 1 03/06/2022 04/27/2022 Discontinued Start: 05-11-2019 End: 03-06-2022 mupirocin (BACTROBAN) 2 % oi ntment Apply to affected area. 05/11/2019 03/06/2022 Discontinued Start: 05-11-2019 Mupirocin 2 % ointment Active 1 NMA TOPICAL TWICE A DAY May 11, 2019 12:00am Comment on above: Apply to affected ar ea. Apply to affected ar ea every 12 hours as needed (rash, skin lesions). nirmatrelvir tablet 300 mg (150 mg x 2) and ritonavir tablet 100 mg in a dose pack (PAXLOVID) (1 source) Start: 04-06-20 End: 04-11-20 nirmatrelvir tablet 300 mg (150 mg x 2) and ritonavir tablet 100 mg in a dose pack (PAXLOVID) Indications: Acute COVID-19 Administer TWO pink nirmatrelvir 150 mg tablets and ONE white ritonavir 100 mg tablet for a total of three tablets twice daily. 30 tablet 0 04/06/2023 04/11/2023 Active Comment on above: Administer TWO pink nirmatrelvir 150 mg tablets and ONE white ritonavir 100 mg tablet for a total of three tablets twice daily. nitrofurantoin, macrocrystals 25 mg / nitrofurantoin, monohydrate 75 mg oral capsule (2 sources) Nitrofuran Antibacterial Start: 10-19-19 End: 10-26-19 take 1 capsule by mouth twice daily nitrofurantoin monohydrate and macrocrystal (MACROBID) 100 mg capsule Indications: Urinary frequency Take 1 capsule by mouth twice daily for 7 days. 14 capsule 0 10/18/2022 10/25/2022 Active Comment on above: Take 1 capsule by [facility] twice daily for 7 days. ofloxacin 3 mg/ml otic solution (1 source) Quinolone Antimicrobial Start: 11-27-19 End: 12-04-19 ofloxacin (FLOXIN) 0.3 % otic solution Indications: Acute otitis externa of right ear, unspecified type Use 5 Drops in both ears two times a day for 7 days. Right ear canal 5 mL 1 11/27/2023 12/04/2023 Active Oral Medication Containers (SHARPS CONTAINER) misc (20 sources) Start: 07-26-19 Oral Medication Containers (SHARPS CONTAINER) misc Use to collect sharps as directed. 1 Each 07/26/2023 Active Start: 07-26-2023 Oral Medicatio n Containers (SHARPS CONTAINER) misc Use to collect sharps as directed. 1 Each 0 07/26/2023 Active Start: 09-13-2022 End: 07-26-2023 Oral Medication Containers ( SHARPS CONTAINER) misc Use to collect sharps as directed. 1 Each 09/13/2022 07/26/2023 Discontinued Start: 09-13-2022 Oral Medicatio n Containers (SHARPS CONTAINER) misc Use to collect sharps as directed. 1 Each 0 09/13/2022 Active Comment on above: Use to collect sharp s as directed. polyethylene glycol 3350 60407 mg powder for oral solution (20 sources) Osmotic Laxative Start: 11-14-2021 polyethylene glycol 3350 (MIRALAX) 17 gram/dose powder Indications: Chronic constipation 1 capful daily in the morning 1700 g 3 11/14/2021 Active Start: 05-11-2019 Polyethylene G lycol 3350 (Miralax) 17 gram/dose powder Active 17 g PO TWICE A DAY May 11, 2019 12:00am Start: 02-05-2014 End: 06-22-2021 take 1 scoop(s) by mouth twice daily polyethylene glycol 3350 (GLYCOLAX) 17 gram/dose powder Indications: Constipation, acute Take 17 g by mouth twice daily. one scoop TWICE DAILY until relief 527 g 0 02/05/2014 06/22/2021 Discontinued (Course of therapy completed) Comment on above: 1 capful daily in th e morning sulfamethoxazole 800 mg / trimethoprim 160 mg oral tablet (6 sources) Dihydrofolate Reductase Inhibitor Antibacterial, Sulfonamide Antimicrobial Start: End: take 1 tablet by mouth twice daily sulfamethoxazole-trim ethoprim (BACTRIM DS) 800-160 mg per tablet Indications: Sinobronchitis Take 1 tablet by mouth two times a day for 14 days. 28 tablet 06/23/2024 07/07/2024 Active Start: 12-30-2021 End: 01-09-2022 take 1 tablet by mouth twice daily sulfamethoxazole-trimethoprim (BACTRIM D S) 800-160 mg per tablet Indications: Ingrown left greater toenail , Localized swelling of left foot , Pain of left heel , Injury of left heel, subsequent encounter , Left foot pain Take 1 tablet by mouth twice daily for 10 days. 20 tablet 12/30/2021 01/09/2022 Comment on above: Take 1 tablet by [facility] twice daily for 10 days. vitamin b12 1 mg extended release oral tablet (20 sources) Vitamin B12 Start: 02-22-2025 take 2 tablets by mouth once daily Cyanocobalamin (Vitamin B-12) 1,000 mcg tablet extended release Active 2000 ug PO DAILY February 22, 2025 12:00am Start: 04-27-2022 End: 11-27-2023 take 2 tablets by mouth once daily cyanocobalamin (VITAMIN B-12) 1,000 mcg tab Indications: Vitamin B12 deficiency Take 2 tablets by mouth once daily. 180 tablet 1 11/27/2023 Active Comment on above: Take 2 tablets by [facility] once daily. Completed/Discontinued Medications Medication Drug Class(es) Dates Sig (Normalized) Sig (Original) acetaminophen 325 mg / oxyCODONE hydrochloride 5 mg oral tablet (4 sources) Opioid Agonist Start: 12-30-2021 End: 01-06-2022 take 1 tablet by mouth every six hours as needed for pain oxyCODONE-acetami nophen (PERCOCET) 5-325 mg tablet Indications: Ingrown left greater toenail , Localized swelling of left foot , Pain of left heel , Injury of left heel, subsequent encounter , Left foot pain Take 1 tablet by mouth every 6 hours as needed for pain for up to 7 days. 28 tablet 12/30/2021 01/06/2022 Comment on above: Take 1 tablet by raquel every 6 hours as needed for pain for up to 7 days. betamethasone 0.5 mg/ml / clotrimazole 10 mg/ml topical cream (5 sources) Azole Antifungal, Corticosteroid Start: 07-21-2019 End: 06-22-2021 clotrimazole-beta methasone (LOTRISONE) cream Apply 1 application to affected area twice daily. 30 g 07/21/2019 06/22/2021 Discontinued (Course of therapy completed) Start: 05-11-2019 End: 02-22-2025 Clotrimazole-Betamethasone ( Lotrisone) 1-0.05 % cream Discontinued 1 NMA TOPICAL TWICE A DAY May 11, 2019 12:00am February 22, 2025 9:21pm Start: 05-11-2019 Clotrimazole-B etamethasone (Lotrisone) 1-0.05 % cream Active 1 APPLIC TOPICAL TWICE A DAY May 11, 2019 12:00am Blood-Glucose Meter (FREESTY LE LITE METER) monitoring kit (20 sources) Start: 10-17-2017 End: 03-22-2022 Blood-Glucose Meter (FREESTY LE LITE METER) monitoring kit Indications: Diabetes mellitus type 2 in obese Freestyle LITE Meter Kit - 1 Each 10/17/2017 03/22/2022 Discontinued Start: 10-17-2017 Blood-Glucose Meter (FREESTYLE LITE METER) monitoring kit Indications: Diabetes mellitus type 2 in obese (HCC) Freestyle LITE Meter Kit - 1 Each 0 10/17/2017 Active Comment on above: Freestyle LITE Meter Kit - Blood-Glucose Sensor (FREESTYLE MICHI 3 SENSOR) ingrid (20 sources) Start: 07-25-2023 End: 05-04-2024 Blood-Glucose Sensor (FREESTYLE MICHI 3 SENSOR) ingrid Apply new sensor to back of upper arm every 14 days 6 Each 4 07/25/2023 05/04/2024 Discontinued Start: 07-25-2023 Blood-Glucose Sensor (FREESTYLE MICHI 3 SENSOR) ingrid Apply new sensor to back of upper arm every 14 days 6 Each 4 07/25/2023 Active Comment on above: Apply new sensor to back of upper arm every 14 days cholecalciferol 0.125 mg oral capsule (20 sources) Vitamin D Start: End: take 1 capsule by mouth once daily Cholecalciferol, Vitamin D3, 125 mcg (5,000 unit) cap Indications: Vitamin D deficiency Take 1 capsule by mouth once daily. 90 capsule 3 09/09/2023 05/05/2024 Discontinued (Dosage adjustment) Start: 04-27-2022 End: 09-07-2023 take 1 capsule by mouth once daily Cholecalciferol, Vitamin D3, 125 mcg (5,000 unit) cap Indications: Vitamin D deficiency Take 1 capsule by mouth once daily. 90 capsule 3 04/27/2022 09/07/2023 Discontinued Comment on above: Take 1 capsule by [facility] once daily. cyclobenzaprine hydrochloride 10 mg oral tablet (2 sources) Muscle Relaxant Start: 12-02-19 End: 06-22-20 take 1 tablet by mouth every twelve hours as needed cyclobenzaprine (FLEXERIL) 10 mg tablet Take 1 tablet by mouth twice daily as needed for Muscle Spasm. 30 tablet 12/01/2020 06/22/2021 Discontinued (Side Effects) doxycycline hyclate 100 mg oral tablet (10 sources) Tetracycline-cla ss Drug Start: 02-23-20 25 End: 02-23-20 25 take 1 tablet by mouth twice daily doxycycline (VIBRA-TABS) 100 mg tablet Indications: Chest pain on breathing , Shortness of breath , Fatigue, unspecified type Take 1 tablet by mouth two times a day for 10 days. 20 tablet 02/22/2025 02/22/2025 Discontinued (Changing Therapy/Dosage Form) Start: 09-23-2024 End: 10-03-2024 take 1 tablet by mouth twice daily doxycycline (VIBRA-TABS) 100 mg tablet Indications: Acute cough , Rhonchi at both lung bases Take 1 tablet by mouth two times a day for 10 days. 20 tablet 09/23/2024 10/03/2024 Active Start: 12-20-2021 End: 12-30-2021 take 1 tablet by mouth twice daily doxycycline (VIBRA-TABS) 100 mg tablet Indications: Cellulitis of left foot Take 1 tablet by mouth twice daily for 10 days. 20 tablet 12/20/2021 12/30/2021 Comment on above: Take 1 tablet by raquel twice daily for 10 days. dulaglutide (TRULICITY) 3 mg/0.5 mL pen injector (3 sources) Start: 03-09-20 End: 10-14-19 inject 3 mg by subcutaneous injection every week dulaglutide (TRULICITY) 3 mg/0.5 mL pen injector Inject 3 mg subcutaneously one time a week. 6 mL 3 03/09/2021 10/13/2021 Discontinued Start: 08-04-2020 End: 03-09-2021 inject 3 mg by subcutaneous injection every week dulaglutide (TRULICITY) 3 mg/0.5 mL pen injector Inject 3 mg subcutaneously one time a week. 2 mL 11 08/04/2020 03/09/2021 Discontinued Comment on above: Inject 3 mg subcutan eously one time a week. dulaglutide (TRULICITY) 4.5 mg/0.5 mL pen injector (20 sources) Start: End: inject 4.5 mg by subcutaneous injection every week dulaglutide (TRULICITY) 4.5 mg/0.5 mL pen injector Indications: Uncontrolled type 2 diabetes mellitus with hyperglycemia (HCC) Inject 4.5 mg subcutaneously one time a week. 4 Each 3 03/05/2022 07/12/2022 Discontinued Start: 03-05-2022 inject 4.5 mg by sub cutaneous injection every week dulaglutide (TRULICITY) 4.5 mg/0.5 mL pen injector Indications: Uncontrolled type 2 diabetes mellitus with hyperglycemia (HCC) Inject 4.5 mg subcutaneously one time a week. 4 Each 3 03/05/2022 Active Start: 10-13-2021 End: 03-05-2022 inject 4.5 mg by subcutaneous injection every week dulaglutide (TRULICITY) 4.5 mg/0.5 mL pen injector Indications: Uncontrolled type 2 diabetes mellitus with hyperglycemia (HCC) Inject 4.5 mg subcutaneously one time a week. 4 Each 3 10/13/2021 03/05/2022 Discontinued Start: 10-13-2021 inject 4.5 mg by sub cutaneous injection every week dulaglutide (TRULICITY) 4.5 mg/0.5 mL pen injector Indications: Uncontrolled type 2 diabetes mellitus with hyperglycemia (HCC) Inject 4.5 mg subcutaneously one time a week. 4 Each 3 10/13/2021 Active Comment on above: Inject 4.5 mg subcut aneously one time a week. enteric contrast (will be provided with radiology test) (1 source) Start: 2 End: 2 take 1 dose by mouth once, then take 1 dose by mouth once enteric contrast (will be provided with radiology test) Indications: Nausea , Right flank pain , RUQ pain , Chronic RLQ pain , Nausea and vomiting, unspecified vomiting type Take 1 Each by mouth one time only for [address] ABD/PEL WO Routine order Administer, As Directed One Time Only, via Oral, Rectal, both Oral and Rectal, Enteric Tube, Stoma or Indwelling Catheter, Enteric Contrast as designated per enteric contrast guidelines 1 Each 0 05/21/2022 05/21/2022 Comment on above: Take 1 Each by mouth one time only for [address] ABD/PEL WO Routine order Administer, As Directed One Time Only, via Oral, Rectal, both Oral and Rectal, Enteric Tube, Stoma or Indwelling Catheter, Enteric Contrast as designated per enteric contrast guidelines Flash Glucose Scanning [place] (Freestyle Michi 10 Day [place] [facility] [place] Start: 9 End: 0 Flash Glucose Scanning Gob[place] (Freestyle Michi 10 Day [place] [facility] [place] 0 .ROUTE .MEDSUPPLY 1 0 May 11, 2019 12:00am February 26, 2020 4:35pm As directed Start: 05-11-2019 End: 02-26-2020 Flash Glucose Scanning Reade r (Freestyle Michi 10 Day Gobles[place] [facility] [place] .ROUTE .MEDSUPPLY 1 May 11, 2019 12:00am February 26, 2020 4:35pm As directed flash glucose scanning reader (FREESTYLE MICHI 14 DAY READER) (16 sources) Start: 03-26-2023 flash glucose scanning reader (FREESTYLE MICHI 14 DAY READER) Indications: Type 2 diabetes (HCC) Use to test blood sugar as directed. 1 Each 0 03/26/2023 Active Comment on above: Use to test blood andrea gar as directed. flash glucose scanning reader (FREESTYLE MICHI 14 DAY READER) [facility] [place] ([place] sources[place] Start: 11-23-2019 End: 03-25-2023 flash glucose scanning reader (FREESTYLE MICHI 14 DAY READER) [facility] 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 1 Each 11/23/2019 03/25/2023 Discontinued Start: 11-23-2019 End: 03-25-2023 flash glucose scanning reade r (FREESTYLE MICHI 14 DAY READER) [facility] 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 1 Each 0 11/23/2019 03/25/2023 Discontinued Start: 11-23-2019 flash glucose scanning reader (FREESTYLE MICHI 14 DAY READER) [facility] 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 1 Each 0 11/23/2019 Active Comment on above: Use to test blood andrea gar as directed. Flash Glucose Sensor (Freestyle Michi 10 Day Sensor) kit (3 sources) Start: 05-11-2019 End: 02-26-2020 Flash Glucose Sensor (Freestyle Michi 10 Day Sensor) kit Discontinued 0 .ROUTE .MEDSUPPLY 1 0 May 11, 2019 12:00am February 26, 2020 4:34pm As directed Start: 05-11-2019 End: 02-26-2020 Flash Glucose Sensor (Freest yle Michi 10 Day Sensor) kit Discontinued 0 .ROUTE .MEDSUPPLY 1 May 11, 2019 12:00am February 26, 2020 4:34pm As directed fluconazole 150 mg oral tablet (6 sources) Azole Antifungal Start: 08-27-2023 End: 08-27-2023 fluconazole (DIFLUCAN) 150 mg tablet Indications: Acute bronchitis, unspecified organism Take 1 tablet by mouth one time only for 1 dose. Repeat in 3 days as needed. 2 tablet 0 08/27/2023 08/27/2023 Start: 05-27-2023 End: 05-27-2023 fluconazole (DIFLUCAN) 150 m g tablet Indications: Acute bronchitis, unspecified organism Take 1 tablet by mouth one time only for 1 dose. Repeat in 3 days as needed. 2 tablet 0 05/27/2023 05/27/2023 Start: 04-05-2023 End: 04-06-2023 take 1 tablet by mouth once daily fluconazole (DIFLUCAN) 150 mg tablet Indications: Acute non-recurrent sinusitis, unspecified location Take 1 tablet by mouth once daily for 1 day. 1 tablet 0 04/05/2023 04/06/2023 Discontinued Start: 12-20-2021 End: 12-20-2021 fluconazole (DIFLUCAN) 150 m g tablet Indications: Cellulitis of left foot Take 1 tablet by mouth one time only for 1 dose. Repeat in 3 days as needed. 2 tablet 0 12/20/2021 12/20/2021 Active Comment on above: Take 1 tablet by raquel th one time only for 1 dose. Repeat in 3 days as needed. Take 1 tablet by raquel th once daily for 1 day. glimepiride 2 mg oral tablet (3 sources) Sulfonylurea Start: 04-07-2017 End: 05-11-2019 Glimepiride 2 MG tablet Discontinued 2 {tbl} PO DAILY April 07, 2017 12:00am May 11, 2019 1:23pm glucose 4000 mg chewable tablet (20 sources) Start: 05-11-2019 Glucose Active 16 GM PO Q15M May 11, 2019 12:00am Start: 10-08-2016 End: 02-22-2025 Glucose 4 gram tablet,chewab le Discontinued 16 g PO Q15M as needed May 11, 2019 12:00am February 22, 2025 9:22pm Comment on above: Take 4 tablets by mo [facility] as needed. For blood sugars less than 70 12 hr guaiFENesin 600 mg extended release oral tablet (3 sources) Start: 02-22-2025 End: 02-22-2025 take 1 tablet by mouth twice daily guaiFENesin (MUCINEX) 600 mg 12 hr tablet Indications: Shortness of breath Take 1 tablet by mouth two times a day. With a full glass of water 60 tablet 02/22/2025 02/22/2025 Discontinued Start: 06-25-2022 End: 07-09-2022 take 2 tablets by mouth twice daily guaiFENesin (MUCINEX) 600 mg 12 hr tablet Indications: Influenza A , Persistent cough , Fever, unspecified fever cause Take 2 tablets by mouth twice daily for 14 days. 56 tablet 0 06/25/2022 07/09/2022 Active Comment on above: Take 2 tablets by [facility] twice daily for 14 days. 3 ml insulin glargine 300 unt/ml pen injector (16 sources) Insulin Analog Start: 05-09-2023 End: 06-27-2023 insulin glargine U-300 conc (TOUJEO MAX U-300 SOLOSTAR) 300 unit/mL (3 mL) inpn Indications: Type 2 diabetes mellitus with peripheral neuropathy (HCC) Inject 72 Units subcutaneously every morning. Type 2 diabetes uncontrolled, insulin dependent 6 mL 11 05/27/2023 06/27/2023 Discontinued (Changing Therapy/Dosage Form) Start: 07-16-2016 End: 05-11-2019 inject 48 [IU] by subcutaneous injection at bedtime Insulin Glargine 100 UNIT/ML solution Discontinued 48 U SQ AT BEDTIME July 16, 2016 9:45pm May 11, 2019 1:23pm Start: 04-15-2016 End: 07-16-2016 Insulin Glargine (Lantus) 10 0 UNIT/ML Ml Discontinued 15 U SQ AT BEDTIME 200 0 April 15, 2016 3:15pm July 16, 2016 9:45pm disp 2 week supply, also dispense 1 box of 100 needles,call if questions Comment on above: Inject 72 Units subc utaneously every morning. Inject 72 Units subc utaneously every morning. Type 2 diabetes uncontrolled, insulin dependent 3 ml insulin lispro 100 unt/ml pen injector (9 sources) Insulin Analog Start: 2022 End: 2022 inject 10 [IU] by subcutaneous injection three times daily before mealtime insulin lispro (ADMELOG SOLOSTAR U-100 INSULIN) 100 unit/mL Inject 10 Units subcutaneously three times a day before meals. Plus sliding scale 15 mL 5 05/09/2023 06/27/2023 Discontinued (Changing Therapy/Dosage Form) Comment on above: Inject 10 Units subc utaneously three times a day before meals. Plus sliding scale 2 ml ketorolac tromethamine 30 mg/ml injection (1 source) Nonsteroidal Anti-inflammatory Drug, Cyclooxygenase Inhibitor Start: 2021 End: 2021 keTORolac 60 mg injection (TORADOL) 200 actuat levalbuterol 0.045 mg/actuat metered dose inhaler (15 sources) beta2-Adrenergic Agonist Start: 2024 End: 2024 Levalbuterol Tartrate (Xopenex Hfa) 45 mcg/actuation HFA aerosol inhaler Discontinued 2 NMA INHALATION Q4H as needed for shortness of breath or wheezing February 22, 2025 12:00am February 22, 2025 9:23pm metoclopramide 10 mg oral tablet (3 sources) Dopamine-2 Receptor Antagonist Start: 2018 End: 2019 take 1 tablet by mouth four times daily as needed for headache Metoclopramide Hcl 10 MG tablet Discontinued 10 mg PO 4 TIMES DAILY as needed for Headache January 13, 2019 12:00am August 27, 2019 9:51am nabumetone 750 mg oral tablet (1 source) Nonsteroidal Anti-inflammatory Drug Start: 2020 End: 2020 take 1 tablet by mouth once daily nabumetone (RELAFEN) 750 mg tablet Take 1 tablet by mouth once daily. 60 tablet 01/18/2021 06/22/2021 Discontinued (Course of therapy completed) naproxen 500 mg oral tablet (1 source) Nonsteroidal Anti-inflammatory Drug Start: 2020 End: 2020 take 1 tablet by mouth every twelve hours as needed naproxen (NAPROSYN) 500 mg tablet Take 1 tablet by mouth twice daily as needed for Pain. Take with food. 60 tablet 12/01/2020 01/18/2021 Discontinued (Course of therapy completed) omeprazole 20 mg delayed release oral capsule (3 sources) Proton Pump Inhibitor Start: 2016 End: 2018 Omeprazole 20 MG capsule,delayed release(DR/EC) Discontinued 20 NMA PO DAILY April 07, 2017 12:00am May 11, 2019 1:25pm ondansetron 4 mg disintegrating oral tablet (6 sources) Serotonin-3 Receptor Antagonist Start: 2020 End: 2024 take 1 tablet by mouth every eight hours as needed for nausea Ondansetron 4 mg tablet,disintegratin g Discontinued 4 mg PO EVERY 8 HOURS NEEDED as needed for Nausea 14 0 April 06, 2021 12:00am February 22, 2025 8:07pm Start: 07-27-2018 End: 05-11-2019 take 1 tablet by mouth every eight hours as needed for nausea Ondansetron 4 MG tablet Discontinued 4 mg PO EVERY 8 HOURS NEEDED as needed for Nausea July 27, 2018 1:00am May 11, 2019 1:25pm Oral Medication Containers ( BD [employer]) misc (20 sources) Start: 09-27-2016 End: 03-22-2022 Oral Medication Containers ( BD [employer]) misc Use as instructed for DM supply disposal DM: yes Insulin: yes DX:11.9 1 Each 09/27/2016 03/22/2022 Discontinued Start: 09-27-2016 Oral Medicatio n Containers (BD [employer]) misc Use as instructed for DM supply disposal DM: yes Insulin: yes DX:11.9 1 Each 0 09/27/2016 Active Comment on above: Use as instructed fo r DM supply disposal DM: yes Insulin: yes DX:11.9 Polyethylene Glycol 1000 powd (20 sources) End: 03-22-2022 Polyethylene Glycol 1000 powd Use 1 scoop PRN constipation 03/22/2022 Discontinued (Duplicate Entry) Polyethylene Gly col 1000 powd Use 1 scoop PRN constipation 0 Active Comment on above: Use 1 scoop PRN cons tipation polyethylene glycol 3350 845990 mg / potassium chloride 2970 mg / sodium bicarbonate 6740 mg / sodium chloride 5860 mg / sodium sulfate 29801 mg powder for oral solution (11 sources) Osmotic Laxative Start: 022 End: 023 peg 3350-Electrolytes (GOLYTELY) 236-22.74-6.74 -5.86 gram suspension Indications: Abdominal pain, unspecified abdominal location , Change in bowel habits Take 4,000 mL by mouth one time only for 1 dose. Refer to printed prep instructions from your provider. 4000 mL 0 05/29/2022 05/29/2022 Comment on above: Take 4,000 mL by raquel one time only for 1 dose. Refer to printed prep instructions from your provider. Take by mouth one ti me only. pravastatin sodium 20 mg oral tablet (3 sources) HMG-CoA Reductase Inhibitor Start: End: take 1 tablet by mouth at bedtime Pravastatin 20 MG tablet Discontinued 20 mg PO AT BEDTIME April 08, 2014 12:00am May 11, 2019 1:26pm promethazine hydrochloride 25 mg oral tablet (3 sources) Phenothiazine Start: End: take 1 tablet by mouth every six hours as needed for nausea Promethazine 25 MG tablet Discontinued 25 mg PO EVERY 6 HOURS NEEDED as needed for Nausea 10 0 December 25, 2018 12:00am February 22, 2025 8:07pm semaglutide (OZEMPIC) 1 mg/dose (4 mg/3 mL) pen (6 sources) Start: End: inject 1 mg by subcutaneous injection every week semaglutide (OZEMPIC) 1 mg/dose (4 mg/3 mL) pen Inject 1 mg subcutaneously one time a week. 3 mL 3 01/09/2024 01/28/2024 Discontinued (Side Effects) Start: 01-09-2024 inject 1 mg by subcu taneous injection every week semaglutide (OZEMPIC) 1 mg/dose (4 mg/3 mL) pen Inject 1 mg subcutaneously one time a week. 3 mL 3 01/09/2024 Active TRULICITY 4.5 mg/0.5 mL pen injector (20 sources) Start: 07-12-2022 End: 07-25-2023 inject 4.5 mg by subcutaneous injection every week TRULICITY 4.5 mg/0.5 mL pen injector Indications: Uncontrolled type 2 diabetes mellitus with hyperglycemia (HCC) Inject 4.5 mg subcutaneously one time a week. 4 mL 3 07/12/2022 07/25/2023 Discontinued Start: 07-12-2022 inject 4.5 mg by sub cutaneous injection every week TRULICITY 4.5 mg/0.5 mL pen injector Indications: Uncontrolled type 2 diabetes mellitus with hyperglycemia (HCC) Inject 4.5 mg subcutaneously one time a week. 4 mL 3 07/12/2022 Active Comment on above: Inject 4.5 mg subcut aneously one time a week. urea 400 mg/ml topical cream (3 sources) Start: 05-11-20 End: 02-23-20 Urea 40 % cream Discontinued 1 NMA TOPICAL TWICE A DAY May 11, 2019 12:00am February 22, 2025 8:07pm divalproex sodium 250 mg delayed release oral tablet (20 sources) Mood Stabilizer, Anti-epileptic Agent Start: 10-05-19 End: 11-16-19 take 1 tablet by mouth twice daily divalproex DR (DEPAKOTE) 125 mg EC tablet Indications: Nonintractable episodic headache, unspecified headache type TAKE 1 TABLET BY MOUTH TWICE DAILY 60 tablet 2 12/26/2021 11/15/2022 Discontinued (Course of therapy completed) Start: 10-04-2021 End: 11-15-2022 take 1 tablet by mouth twice daily divalproex DR (DEPAKOTE) 250 mg EC tablet Indications: Nonintractable episodic headache, unspecified headache type TAKE 1 TABLET BY MOUTH TWICE DAILY 60 tablet 2 12/26/2021 11/15/2022 Discontinued (Course of therapy completed) Comment on above: Take 1 tablet by raquel th twice daily. TAKE 1 TABLET BY RAQUEL TH TWICE DAILY Problems Active Problems Problem Classification Problem Date Documented Da te Episodic/Chronic Abdominal pain (20 sources) Generalized abdominal pain; Translations: [Generalized abdominal pain] Onset: 2 Resolved: 6 Episodic Asthma (20 sources) Asthma; Translations: [Unspecified asthma, uncomplicated] Resolved: 6 12-25-2018 Chronic Congestive heart failure; nonhypertensive (6 sources) Acute congestive heart failure; Translations: [Heart failure, unspecified] Onset: 5 02-22-2025 Chronic Diabetes mellitus with complications (20 sources) Type II diabetes mellitus uncontrolled; Translations: [Type 2 diabetes mellitus with hyperglycemia] Onset: 4 Resolved: 6 Chronic Diabetes mellitus without complication (20 sources) Type 2 diabetes mellitus; Translations: [Type 2 diabetes mellitus without complications] Onset: 4 08-27-2019 Chronic Diabetes mellitus without complication (1 source) Glycosuria; Translations: [Glycosuria] Episodic Disorders of lipid metabolism (20 sources) Mixed hyperlipidemia; Translations: [Mixed hyperlipidemia] Onset: 9 Chronic Esophageal disorders (20 sources) Gastroesophageal reflux disease; Translations: [Gastro-esophageal reflux disease without esophagitis] Onset: 4 05-05-2014 Chronic Essential hypertension (20 sources) Essential hypertension; Translations: [Essential (primary) hypertension] Onset: 6 Chronic Fever of unknown origin (1 source) Fever; Translations: [Fever, unspecified] Episodic Genitourinary symptoms and ill-defined conditions (20 sources) Increased frequency of urination; Translations: [Frequency of micturition] Onset: 4 Resolved: 6 Episodic Headache; including migraine (1 source) Headache; Translations: [Nonintractable episodic headache, unspecified headache type] Episodic Hemorrhoids (3 sources) Thrombosed external hemorrhoids; Translations: [Perianal venous thrombosis] 01-29-2019 Episodic Influenza (2 sources) Influenza due to Influenza A virus; Translations: [Influenza due to other identified influenza virus with other respiratory manifestations] Episodic Intestinal obstruction without hernia (6 sources) Small bowel obstruction; Translations: [Unspecified intestinal obstruction, unspecified as to partial versus complete obstruction] 12-25-2018 Episodic Mood disorders (20 sources) Moderate major depression, single episode; Translations: [Major depressive disorder, single episode, moderate] Onset: 3 02-20-2023 Chronic Nausea and vomiting (7 sources) Nausea; Translations: [Nausea] Episodic Nonspecific chest pain (9 sources) Tight chest; Translations: [Other chest pain] Onset: 5 Episodic Nutritional deficiencies (20 sources) Vitamin D deficiency; Translations: [Vitamin D deficiency, unspecified] Onset: 2 03-06-2022 Chronic Occlusion or stenosis of precerebral arteries (1 source) Bilateral atherosclerosis of carotid arteries; Translations: [Occlusion and stenosis of bilateral carotid arteries] 11-27-2023 Chronic Other aftercare (20 sources) Patient encounter status; Translations: [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] Onset: 2 Episodic Other circulatory disease (1 source) Wheeze - rhonchi; Translations: [Other specified symptoms and signs involving the circulatory and respiratory systems] 09-23-2024 Episodic Other connective tissue disease (2 sources) Pain of left heel; Translations: [Pain in left foot] Episodic Other connective tissue disease (2 sources) Pain in left foot; Translations: [Pain in left foot] Episodic Other connective tissue disease (1 source) Other specified soft tissue disorders; Translations: [Right leg swelling] Onset: 3 Episodic Other connective tissue disease (1 source) Pain in right lower leg; Translations: [Right calf pain] Onset: 3 Episodic Other connective tissue disease (2 sources) Swelling of right lower limb; Translations: [Other specified soft tissue disorders] 05-28-2023 Episodic Other connective tissue disease (2 sources) Pain of right calf; Translations: [Pain in right lower leg] 05-28-2023 Episodic Other ear and sense organ disorders (1 source) Ear sensations - finding; Translations: [Other specified disorders of ear, bilateral] 10-11-2023 Episodic Other ear and sense organ disorders (1 source) Acute otitis externa of right ear; Translations: [Unspecified acute noninfective otitis externa, right ear] 11-27-2023 Episodic Other gastrointestinal disorders (1 source) Alteration in bowel elimination; Translations: [Change in bowel habit] Episodic Other gastrointestinal disorders (1 source) Change in bowel habit; Translations: [Change in bowel habits] Onset: 3 Episodic Other gastrointestinal disorders (3 sources) Abdominal bloating; Translations: [Abdominal distension (gaseous)] Episodic Other gastrointestinal disorders (3 sources) Constipation; Translations: [Constipation, unspecified] 12-26-2018 Episodic Other hereditary and degenerative nervous system conditions (20 sources) Restless legs; Translations: [Restless legs syndrome] Onset: 2 08-15-2021 Chronic Other injuries and conditions due to external causes (3 sources) Thumb injury ; Translations: [Unspecified injury of left wrist, hand and finger(s), initial encounter] Episodic Other injuries and conditions due to external causes (3 sources) Injury of left wrist; Translations: [Unspecified injury of left wrist, hand and finger(s), initial encounter] Episodic Other injuries and conditions due to external causes (2 sources) Heel injury; Translations: [Unspecified injury of left foot, subsequent encounter] Episodic Other liver diseases (20 sources) Steatosis of liver; Translations: [Fatty (change of) liver, not elsewhere classified] Onset: 3 05-29-2023 Chronic Other lower respiratory disease (20 sources) Dyspnea; Translations: [Shortness of breath] Onset: 2 08-15-2021 Episodic Other lower respiratory disease (3 sources) Multiple nodules of lung; Translations: [Other nonspecific abnormal finding of lung field] Episodic Other lower respiratory disease (20 sources) Nodule of lung; Translations: [Solitary pulmonary nodule] Onset: 3 04-07-2017 Episodic Other lower respiratory disease (5 sources) Cough; Translations: [Acute cough] 09-23-2024 Episodic Other lower respiratory disease (4 sources) Hypoxemia; Translations: [Hypoxemia] 02-22-2025 Episodic Other lower respiratory disease (2 sources) Chest pain on breathing; Translations: [Chest pain on breathing] 02-22-2025 Episodic Other lower respiratory disease (2 sources) Hypoxia; Translations: [Hypoxemia] 02-23-2025 Episodic Other lower respiratory disease (2 sources) Hypoxemia; Translations: [Hypoxemia] Onset: 5 Episodic Other lower respiratory disease (1 source) Chest pain on breathing; Translations: [Chest pain on breathing] Onset: 5 Episodic Other nervous system disorders (20 sources) Disorder of the peripheral nervous system; Translations: [Hereditary and idiopathic neuropathy, unspecified] 06-28-2009 Chronic Other nervous system disorders (4 sources) Polyneuropathy; Translations: [Other specified polyneuropathies] Chronic Other nervous system disorders (20 sources) Peripheral nerve disease ; Translations: [Polyneuropathy, unspecified] 07-24-2022 Chronic Other non-traumatic joint disorders (1 source) Effusion, left ankle; Translations: [Left ankle swelling] Onset: 5 Episodic Other non-traumatic joint disorders (1 source) Pain in left ankle and joints of left foot; Translations: [Left ankle pain, unspecified chronicity] Onset: 5 Episodic Other nutritional; endocrine; and metabolic disorders (20 sources) Cholesterol level - finding; Translations: [Lipoprotein deficiency] Onset: 4 10-23-2013 Chronic Other nutritional; endocrine; and metabolic disorders (20 sources) Obesity; Translations: [Obesity, unspecified] Onset: 6 08-11-2015 Chronic Other nutritional; endocrine; and metabolic disorders (20 sources) Obese class I; Translations: [Obesity, unspecified] Onset: 2 Chronic Other screening for suspected conditions (not mental disorders or infectious disease) (8 sources) Encounter for screening mammogram for malignant neoplasm of breast; Translations: [Raised cardiac enzyme or marker] Onset: 4 02-22-2025 Episodic Other skin disorders (2 sources) Ingrowing great toenail; Translations: [Ingrowing nail] Episodic Other skin disorders (2 sources) Localized swelling of left foot; Translations: [Localized swelling, mass and lump, left lower limb] Episodic Other skin disorders (1 source) Localized swelling of finger of right hand; Translations: [Localized swelling, mass and lump, right upper limb] 06-23-2024 Episodic Other skin disorders (1 source) Other skin changes; Translations: [Localized warmth of skin] Onset: 5 Episodic Other upper respiratory infections (1 source) Chronic sinusitis, unspecified; Translations: [Sinobronchitis] Onset: 4 Chronic Phlebitis; thrombophlebitis and thromboembolism (1 source) Personal history of other venous thrombosis and embolism; Translations: [History of DVT (deep vein thrombosis)] Onset: 5 Episodic Residual codes; unclassified (2 sources) Altered mental status; Translations: [Altered mental status, unspecified] 02-23-2025 Episodic Residual codes; unclassified (2 sources) Altered mental status, unspecified; Translations: [Altered mental status, unspecified] Onset: 5 Episodic Skin and subcutaneous tissue infections (1 source) Cellulitis of left foot; Translations: [Cellulitis of left lower limb] Episodic Sprains and strains (20 sources) Sprain of medial collateral ligament of right knee, initial encounter; Translations: [Sprain of medial collateral ligament of right knee] Onset: 1 Resolved: 2 02-06-2021 Episodic Substance-related disorders (20 sources) Tobacco dependence syndrome; Translations: [Nicotine dependence, unspecified, uncomplicated] Resolved: 2 12-25-2018 Chronic Superficial injury; contusion (20 sources) Contusion of knee; Translations: [Contusion of unspecified knee, initial encounter] Onset: 7 Resolved: 2 02-06-2021 Episodic Unclassified (2 sources) Acute cough; Translations: [Acute cough] Onset: 5 Urinary tract infections (3 sources) Pyelonephritis; Translations: [Tubulo-interstitial nephritis, not specified as acute or chronic] 12-26-2018 Episodic Viral infection (9 sources) Viral disease; Translations: [Viral infection, unspecified] 12-22-2018 Episodic Viral infection (1 source) COVID-19; Translations: [COVID-19] Onset: 4 Past or Other Problems Problem Classification Problem Date Documented Da te Episodic/Chronic Abdominal hernia (20 sources) Incisional hernia; Translations: [Incisional hernia without obstruction or gangrene] Onset: 05-02-2013 Resolved: 08-11-2015 05-03-2017 Episodic Acute bronchitis (20 sources) Acute bronchitis; Translations: [Acute bronchitis, unspecified] Onset: 05-29-2023 05-27-2023 Episodic Anxiety disorders (20 sources) Acute stress disorder; Translations: [Acute stress reaction] Onset: 05-18-2010 Resolved: 08-11-2015 08-11-2015 Chronic Chronic obstructive pulmonary disease and bronchiectasis (1 source) Bronchitis, not specified as acute or chronic; Translations: [Sinobronchitis] Onset: 06-23-2024 Episodic Complications of surgical procedures or medical care (20 sources) Complication of procedure; Translations: [Complication of surgical and medical care, unspecified, subsequent encounter] Onset: 10-28-2013 Resolved: 08-11-2015 Episodic Crushing injury or internal injury (20 sources) Injury to colon/rectum; Translations: [Unspecified injury of unspecified part of colon, initial encounter] Onset: 10-17-2012 Resolved: 08-11-2015 08-11-2015 Episodic Fracture of lower limb (20 sources) Closed fracture proximal phalanx, toe ; Translations: [Nondisplaced fracture of proximal phalanx of left lesser toe(s), subsequent encounter for fracture with routine healing] Onset: 10-07-2019 10-07-2019 Episodic Immunizations and screening for infectious disease (8 sources) Needs influenza immunization; Translations: [Encounter for immunization] Onset: 06-23-2024 Episodic Malaise and fatigue (20 sources) Fatigue; Translations: [Other fatigue] Onset: 03-06-2022 03-06-2022 Episodic Nutritional deficiencies (20 sources) Cobalamin deficiency; Translations: [Deficiency of other specified B group vitamins] Onset: 04-27-2022 Episodic Osteoarthritis (20 sources) Localized, primary osteoarthritis; Translations: [Unilateral primary osteoarthritis, unspecified knee] Onset: 03-21-2006 Resolved: 08-11-2015 08-11-2015 Chronic Other aftercare (1 source) MCC (current) use of insulin; Translations: [Type 2 diabetes mellitus without complication, with long-term current use of insulin (HCC)] Onset: 03-18-2024 Episodic Other and unspecified benign neoplasm (20 sources) Leiomyoma; Translations: [Benign neoplasm of connective and other soft tissue, unspecified] Onset: 07-10-2012 Resolved: 08-11-2015 08-11-2015 Episodic Other connective tissue disease (20 sources) Pain in limb; Translations: [Pain in unspecified limb] Onset: 10-14-2006 06-28-2009 Episodic Other connective tissue disease (20 sources) Triggering of digit; Translations: [Trigger finger, left ring finger] Onset: 12-08-2015 12-08-2015 Episodic Other connective tissue disease (20 sources) Muscle pain; Translations: [Myalgia, unspecified site] Onset: 08-15-2021 08-15-2021 Episodic Other connective tissue disease (20 sources) Spasm; Translations: [Other muscle spasm] Resolved: 08-11-2015 08-11-2015 Episodic Other connective tissue disease (18 sources) Pain in right hand; Translations: [Pain in right hand] Onset: 09-23-2024 06-23-2024 Episodic Other connective tissue disease (1 source) Pain in right hand; Translations: [Right hand pain] Onset: 09-23-2024 Episodic Other connective tissue disease (1 source) Trigger finger, right middle finger; Translations: [Trigger middle finger of right hand] Onset: 09-23-2024 Episodic Other female genital disorders (20 sources) Dyspareunia; Translations: [Dyspareunia] Onset: 07-10-2012 Resolved: 08-11-2015 08-11-2015 Chronic Other female genital disorders (20 sources) 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; 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] Onset: 11-27-2012 Resolved: 08-11-2015 08-11-2015 Chronic Other gastrointestinal disorders (20 sources) Ileostomy present; Translations: [Ileostomy status] Onset: 11-05-2012 Resolved: 08-11-2015 08-11-2015 Chronic Other gastrointestinal disorders (20 sources) Chronic constipation; Translations: [Other constipation] Onset: 11-15-2021 Episodic Other gastrointestinal disorders (20 sources) Perforation of intestine; Translations: [Perforation of intestine (nontraumatic)] Onset: 11-05-2012 Resolved: 08-11-2015 08-11-2015 Episodic Other lower respiratory disease (20 sources) Other forms of dyspnea; Translations: [Other respiratory abnormalities] Onset: 08-15-2021 08-15-2021 Episodic Other lower respiratory disease (20 sources) Persistent cough; Translations: [Persistent cough] Onset: 08-15-2021 08-15-2021 Episodic Other lower respiratory disease (20 sources) Wheezing; Translations: [Wheezing] Onset: 08-15-2021 08-15-2021 Episodic Other lower respiratory disease (1 source) Shortness of breath; Translations: [Shortness of breath] Onset: 08-15-2021 Episodic Other nervous system disorders (20 sources) Paresthesia; Translations: [Paresthesia of skin] Onset: 08-15-2021 08-15-2021 Episodic Other non-traumatic joint disorders (20 sources) Joint pain; Translations: [Pain in unspecified joint] Onset: 08-15-2021 08-15-2021 Episodic Other skin disorders (20 sources) Disorder of skin; Translations: [Other specified disorders of the skin and subcutaneous tissue] Onset: 02-18-2006 Resolved: 06-24-2012 06-24-2012 Episodic Other skin disorders (20 sources) Callosity; Translations: [Corns and callosities] Onset: 10-14-2006 Resolved: 08-11-2015 08-11-2015 Episodic Other skin disorders (1 source) Localized swelling, mass and lump, right upper limb; Translations: [Localized swelling of finger of right hand] Onset: 06-23-2024 Episodic Other upper respiratory disease (1 source) Nasal discharge; Translations: [Other specified disorders of nose and nasal sinuses] 09-20-2023 Episodic Other upper respiratory infections (2 sources) Acute sinusitis; Translations: [Acute sinusitis, unspecified] 04-05-2023 Episodic Spondylosis; intervertebral disc disorders; other back problems (20 sources) Neck pain; Translations: [Cervicalgia] Onset: 10-03-2021 Resolved: 12-20-2021 10-03-2021 Episodic Results Test Name Value Interpretation Reference Range Facility Basic Metabolic Profile (BMP )on 03-04-2025 BUN Normal 4-19 [facility] Comment on above: Result Comment: Canc elled via OM: Order cancelled - Patient discharged Performed By: #### L 100.0100, L500.2500 ####[facility] [address] [facility] [address] BUN/CRE Normal 10-20 [facility] Comment on above: Result Comment: Canc elled via OM: Order cancelled - Patient discharged Performed By: #### L 100.0100, L500.2500 ####[facility] [address] [facility] [address] Calcium Normal 7.6-11.0 [facility] Comment on above: Result Comment: Canc elled via OM: Order cancelled - Patient discharged Performed By: #### L 100.0100, L500.2500 ####[facility] [address] [place], [address] CL Normal 98-108 [facility] Comment on above: Result Comment: Canc elled via OM: Order cancelled - Patient discharged Performed By: #### L 100.0100, L500.2500 ####[facility] [address] [facility] [address] CO2 Normal 21.0-32.0 [facility] Comment on above: Result Comment: Canc elled via OM: Order cancelled - Patient discharged Performed By: #### L 100.0100, L500.2500 ####[facility] [address] [place], [address] CREAT,SERUM Normal 0.70-1.20 [facility] Comment on above: Result Comment: Canc elled via OM: Order cancelled - Patient discharged Performed By: #### L 100.0100, L500.2500 ####[facility] [address] [place], [address] eGFR Normal >60 [facility] Comment on above: Result Comment: Canc elled via OM: Order cancelled - Patient discharged Performed By: #### L 100.0100, L500.2500 ####[facility] [address] [place], [address] GAP Normal 5-15 [facility] Comment on above: Result Comment: Canc elled via OM: Order cancelled - Patient discharged Performed By: #### L 100.0100, L500.2500 ####[facility] [address] [place], [address] GLU Normal 70-99 [facility] Comment on above: Result Comment: Canc elled via OM: Order cancelled - Patient discharged Performed By: #### L 100.0100, L500.2500 ####[facility] [address] [place], [address] Potassium Normal 3.3-5.1 [facility] Comment on above: Result Comment: Canc elled via OM: Order cancelled - Patient discharged Performed By: #### L 100.0100, L500.2500 ####[facility] [address] [place], [address] Basic Metabolic Profile (BMP) Normal 133-145 [facility] Comment on above: Result Comment: Canc elled via OM: Order cancelled - Patient discharged Performed By: #### L 100.0100, L500.2500 ####[facility] [address] [place], [address] CBC W/Diff, Automatedon 08-1 Absolute Neut Normal 2.0-7.7 [facility] Comment on above: Result Comment: Canc elled via OM: Order cancelled - Patient discharged Performed By: #### L 100.0100, L500.2500 ####[facility] [address] [place], [address] HCT Normal 37-47 [facility] Comment on above: Result Comment: Canc elled via OM: Order cancelled - Patient discharged Performed By: #### L 100.0100, L500.2500 ####[facility] [address] [place], [address] HGB Normal 12.0-15.0 [facility] Comment on above: Result Comment: Canc elled via OM: Order cancelled - Patient discharged Performed By: #### L 100.0100, L500.2500 ####[facility] [address] [place], [address] MCH Normal 27.0-32.0 [facility] Comment on above: Result Comment: Canc elled via OM: Order cancelled - Patient discharged Performed By: #### L 100.0100, L500.2500 ####[facility] [address] [place], [address] MCHC Normal 32-36 [facility] Comment on above: Result Comment: Canc elled via OM: Order cancelled - Patient discharged Performed By: #### L 100.0100, L500.2500 ####[facility] [address] [place], [address] MCV Normal 81-99 [facility] Comment on above: Result Comment: Canc elled via OM: Order cancelled - Patient discharged Performed By: #### L 100.0100, L500.2500 ####[facility] [address] [place], [address] NEUT% Normal 47-70 [facility] Comment on above: Result Comment: Canc elled via OM: Order cancelled - Patient discharged Performed By: #### L 100.0100, L500.2500 ####[facility] [address] [place], [address] PLT Normal 150-450 [facility] Comment on above: Result Comment: Canc elled via OM: Order cancelled - Patient discharged Performed By: #### L 100.0100, L500.2500 ####[facility] [address] [place], [address] RBC Normal 4.2-5.4 [facility] Comment on above: Result Comment: Canc elled via OM: Order cancelled - Patient discharged Performed By: #### L 100.0100, L500.2500 ####[facility] [address] [place], [address] RDW CV Normal 11.6-14.6 [facility] Comment on above: Result Comment: Canc elled via OM: Order cancelled - Patient discharged Performed By: #### L 100.0100, L500.2500 ####[facility] [address] [place], [address] RDW SD Normal 35.1-43.9 [facility] Comment on above: Result Comment: Canc elled via OM: Order cancelled - Patient discharged Performed By: #### L 100.0100, L500.2500 ####[facility] [address] [place], [address] WBC Normal 4.4-11.0 [facility] Comment on above: Result Comment: Canc elled via OM: Order cancelled - Patient discharged Performed By: #### L 100.0100, L500.2500 ####[facility] [address] [place], [address] Basic Metabolic Profile (BMP )on 03-03-2025 BUN Normal 4-19 [facility] Comment on above: Result Comment: Canc elled via OM: Order cancelled - Patient discharged Performed By: #### L 300.3900, L500.2500, L501.5200, L501.2300, L100.0100 #### [facility] [address] [place], [address] BUN/CRE Normal 10-20 [facility] Comment on above: Result Comment: Canc elled via OM: Order cancelled - Patient discharged Performed By: #### L 300.3900, L500.2500, L501.5200, L501.2300, L100.0100 #### [facility] [address] [place], [address] Calcium Normal 7.6-11.0 [facility] Comment on above: Result Comment: Canc elled via OM: Order cancelled - Patient discharged Performed By: #### L 300.3900, L500.2500, L501.5200, L501.2300, L100.0100 #### [facility] [address] [place], [address] CL Normal 98-108 [facility] Comment on above: Result Comment: Canc elled via OM: Order cancelled - Patient discharged Performed By: #### L 300.3900, L500.2500, L501.5200, L501.2300, L100.0100 #### [facility] [address] [place], [address] CO2 Normal 21.0-32.0 [facility] Comment on above: Result Comment: Canc elled via OM: Order cancelled - Patient discharged Performed By: #### L 300.3900, L500.2500, L501.5200, L501.2300, L100.0100 #### [facility] [address] [place], [address] CREAT,SERUM Normal 0.70-1.20 [facility] Comment on above: Result Comment: Canc elled via OM: Order cancelled - Patient discharged Performed By: #### L 300.3900, L500.2500, L501.5200, L501.2300, L100.0100 #### [facility] [address] [place], [address] eGFR Normal >60 [facility] Comment on above: Result Comment: Canc elled via OM: Order cancelled - Patient discharged Performed By: #### L 300.3900, L500.2500, L501.5200, L501.2300, L100.0100 #### [facility] [address] [place], [address] GAP Normal 5-15 [facility] Comment on above: Result Comment: Canc elled via OM: Order cancelled - Patient discharged Performed By: #### L 300.3900, L500.2500, L501.5200, L501.2300, L100.0100 #### [facility] [address] [place], [address] GLU Normal 70-99 [facility] Comment on above: Result Comment: Canc elled via OM: Order cancelled - Patient discharged Performed By: #### L 300.3900, L500.2500, L501.5200, L501.2300, L100.0100 #### [facility] [address] [place], [address] Potassium Normal 3.3-5.1 [facility] Comment on above: Result Comment: Canc elled via OM: Order cancelled - Patient discharged Performed By: #### L 300.3900, L500.2500, L501.5200, L501.2300, L100.0100 #### [facility] [address] [place], [address] Basic Metabolic Profile (BMP) Normal 133-145 [facility] Comment on above: Result Comment: Canc elled via OM: Order cancelled - Patient discharged Performed By: #### L 300.3900, L500.2500, L501.5200, L501.2300, L100.0100 #### [facility] [address] [place], [address] CBC W/Diff, Automatedon 08-1 Absolute Neut Normal 2.0-7.7 [facility] Comment on above: Result Comment: Canc elled via OM: Order cancelled - Patient discharged Performed By: #### L 300.3900, L500.2500, L501.5200, L501.2300, L100.0100 #### [facility] [address] [place], [address] HCT Normal 37-47 [facility] Comment on above: Result Comment: Canc elled via OM: Order cancelled - Patient discharged Performed By: #### L 300.3900, L500.2500, L501.5200, L501.2300, L100.0100 #### [facility] [address] [place], [address] HGB Normal 12.0-15.0 [facility] Comment on above: Result Comment: Canc elled via OM: Order cancelled - Patient discharged Performed By: #### L 300.3900, L500.2500, L501.5200, L501.2300, L100.0100 #### [facility] [address] [place], [address] MCH Normal 27.0-32.0 [facility] Comment on above: Result Comment: Canc elled via OM: Order cancelled - Patient discharged Performed By: #### L 300.3900, L500.2500, L501.5200, L501.2300, L100.0100 #### [facility] [address] [place], [address] MCHC Normal 32-36 [facility] Comment on above: Result Comment: Canc elled via OM: Order cancelled - Patient discharged Performed By: #### L 300.3900, L500.2500, L501.5200, L501.2300, L100.0100 #### [facility] [address] [place], [address] MCV Normal 81-99 [facility] Comment on above: Result Comment: Canc elled via OM: Order cancelled - Patient discharged Performed By: #### L 300.3900, L500.2500, L501.5200, L501.2300, L100.0100 #### [facility] [address] [place], [address] NEUT% Normal 47-70 [facility] Comment on above: Result Comment: Canc elled via OM: Order cancelled - Patient discharged Performed By: #### L 300.3900, L500.2500, L501.5200, L501.2300, L100.0100 #### [facility] [address] [place], [address] PLT Normal 150-450 [facility] Comment on above: Result Comment: Canc elled via OM: Order cancelled - Patient discharged Performed By: #### L 300.3900, L500.2500, L501.5200, L501.2300, L100.0100 #### [facility] [address] [place], [address] RBC Normal 4.2-5.4 [facility] Comment on above: Result Comment: Canc elled via OM: Order cancelled - Patient discharged Performed By: #### L 300.3900, L500.2500, L501.5200, L501.2300, L100.0100 #### [facility] [address] [place], [address] RDW CV Normal 11.6-14.6 [facility] Comment on above: Result Comment: Canc elled via OM: Order cancelled - Patient discharged Performed By: #### L 300.3900, L500.2500, L501.5200, L501.2300, L100.0100 #### [facility] [address] [place], [address] RDW SD Normal 35.1-43.9 [facility] Comment on above: Result Comment: Canc elled via OM: Order cancelled - Patient discharged Performed By: #### L 300.3900, L500.2500, L501.5200, L501.2300, L100.0100 #### [facility] [address] [place], [address] WBC Normal 4.4-11.0 [facility] Comment on above: Result Comment: Canc elled via OM: Order cancelled - Patient discharged Performed By: #### L 300.3900, L500.2500, L501.5200, L501.2300, L100.0100 #### [facility] [address] [place], [address] Basic Metabolic Profile (BMP )on 03-02-2025 BUN Normal 4-19 [facility] Comment on above: Result Comment: Canc elled via OM: Order cancelled - Patient discharged Performed By: #### L 500.2500, L100.0100 ####[facility] [address] [place], [address] BUN/CRE Normal 10-20 [facility] Comment on above: Result Comment: Canc elled via OM: Order cancelled - Patient discharged Performed By: #### L 500.2500, L100.0100 ####[facility] [address] [place], [address] Calcium Normal 7.6-11.0 [facility] Comment on above: Result Comment: Canc elled via OM: Order cancelled - Patient discharged Performed By: #### L 500.2500, L100.0100 ####[facility] [address] [place], [address] CL Normal 98-108 [facility] Comment on above: Result Comment: Canc elled via OM: Order cancelled - Patient discharged Performed By: #### L 500.2500, L100.0100 ####[facility] [address] [place], [address] CO2 Normal 21.0-32.0 [facility] Comment on above: Result Comment: Canc elled via OM: Order cancelled - Patient discharged Performed By: #### L 500.2500, L100.0100 ####[facility] [address] [place], [address] CREAT,SERUM Normal 0.70-1.20 [facility] Comment on above: Result Comment: Canc elled via OM: Order cancelled - Patient discharged Performed By: #### L 500.2500, L100.0100 ####[facility] [address] [place], [address] eGFR Normal >60 [facility] Comment on above: Result Comment: Canc elled via OM: Order cancelled - Patient discharged Performed By: #### L 500.2500, L100.0100 ####[facility] [address] [place], [address] GAP Normal 5-15 [facility] Comment on above: Result Comment: Canc elled via OM: Order cancelled - Patient discharged Performed By: #### L 500.2500, L100.0100 ####[facility] [address] [place], [address] GLU Normal 70-99 [facility] Comment on above: Result Comment: Canc elled via OM: Order cancelled - Patient discharged Performed By: #### L 500.2500, L100.0100 ####[facility] [address] [place], [address] Potassium Normal 3.3-5.1 [facility] Comment on above: Result Comment: Canc elled via OM: Order cancelled - Patient discharged Performed By: #### L 500.2500, L100.0100 ####[facility] [address] [place], [address] Basic Metabolic Profile (BMP) Normal 133-145 [facility] Comment on above: Result Comment: Canc elled via OM: Order cancelled - Patient discharged Performed By: #### L 500.2500, L100.0100 ####[facility] [address] [place], [address] CBC W/Diff, Automatedon 02-19 Absolute Neut Normal 2.0-7.7 [facility] Comment on above: Result Comment: Canc elled via OM: Order cancelled - Patient discharged Performed By: #### L 500.2500, L100.0100 ####[facility] [address] [place], [address] HCT Normal 37-47 [facility] Comment on above: Result Comment: Canc elled via OM: Order cancelled - Patient discharged Performed By: #### L 500.2500, L100.0100 ####[facility] [address] [place], [address] HGB Normal 12.0-15.0 [facility] Comment on above: Result Comment: Canc elled via OM: Order cancelled - Patient discharged Performed By: #### L 500.2500, L100.0100 ####[facility] [address] [place], [address] MCH Normal 27.0-32.0 [facility] Comment on above: Result Comment: Canc elled via OM: Order cancelled - Patient discharged Performed By: #### L 500.2500, L100.0100 ####[facility] [address] [place], [address] MCHC Normal 32-36 [facility] Comment on above: Result Comment: Canc elled via OM: Order cancelled - Patient discharged Performed By: #### L 500.2500, L100.0100 ####[facility] [address] [place], [address] MCV Normal 81-99 [facility] Comment on above: Result Comment: Canc elled via OM: Order cancelled - Patient discharged Performed By: #### L 500.2500, L100.0100 ####[facility] [address] [place], [address] NEUT% Normal 47-70 [facility] Comment on above: Result Comment: Canc elled via OM: Order cancelled - Patient discharged Performed By: #### L 500.2500, L100.0100 ####[facility] [address] [place], [address] PLT Normal 150-450 [facility] Comment on above: Result Comment: Canc elled via OM: Order cancelled - Patient discharged Performed By: #### L 500.2500, L100.0100 ####[facility] [address] [place], [address] RBC Normal 4.2-5.4 [facility] Comment on above: Result Comment: Canc elled via OM: Order cancelled - Patient discharged Performed By: #### L 500.2500, L100.0100 ####[facility] [address] [place], [address] RDW CV Normal 11.6-14.6 [facility] Comment on above: Result Comment: Canc elled via OM: Order cancelled - Patient discharged Performed By: #### L 500.2500, L100.0100 ####[facility] [address] [place], [address] RDW SD Normal 35.1-43.9 [facility] Comment on above: Result Comment: Canc elled via OM: Order cancelled - Patient discharged Performed By: #### L 500.2500, L100.0100 ####[facility] [address] [place], [address] WBC Normal 4.4-11.0 [facility] Comment on above: Result Comment: Canc elled via OM: Order cancelled - Patient discharged Performed By: #### L 500.2500, L100.0100 ####[facility] [address] [place], [address] Basic Metabolic Profile (BMP )on 03-01-2025 BUN Normal 4-19 [facility] Comment on above: Result Comment: Canc elled via OM: Order cancelled - Patient discharged Performed By: #### L 300.3900, L500.2500, L501.5200, L501.2300, L100.0100 #### [facility] [address] [place], [address] BUN/CRE Normal 10-20 [facility] Comment on above: Result Comment: Canc elled via OM: Order cancelled - Patient discharged Performed By: #### L 300.3900, L500.2500, L501.5200, L501.2300, L100.0100 #### [facility] [address] [place], [address] Calcium Normal 7.6-11.0 [facility] Comment on above: Result Comment: Canc elled via OM: Order cancelled - Patient discharged Performed By: #### L 300.3900, L500.2500, L501.5200, L501.2300, L100.0100 #### [facility] [address] [place], [address] CL Normal 98-108 [facility] Comment on above: Result Comment: Canc elled via OM: Order cancelled - Patient discharged Performed By: #### L 300.3900, L500.2500, L501.5200, L501.2300, L100.0100 #### [facility] [address] [place], [address] CO2 Normal 21.0-32.0 [facility] Comment on above: Result Comment: Canc elled via OM: Order cancelled - Patient discharged Performed By: #### L 300.3900, L500.2500, L501.5200, L501.2300, L100.0100 #### [facility] [address] [place], [address] CREAT,SERUM Normal 0.70-1.20 [facility] Comment on above: Result Comment: Canc elled via OM: Order cancelled - Patient discharged Performed By: #### L 300.3900, L500.2500, L501.5200, L501.2300, L100.0100 #### [facility] [address] [place], [address] eGFR Normal >60 [facility] Comment on above: Result Comment: Canc elled via OM: Order cancelled - Patient discharged Performed By: #### L 300.3900, L500.2500, L501.5200, L501.2300, L100.0100 #### [facility] [address] [place], [address] GAP Normal 5-15 [facility] Comment on above: Result Comment: Canc elled via OM: Order cancelled - Patient discharged Performed By: #### L 300.3900, L500.2500, L501.5200, L501.2300, L100.0100 #### [facility] [address] [place], [address] GLU Normal 70-99 [facility] Comment on above: Result Comment: Canc elled via OM: Order cancelled - Patient discharged Performed By: #### L 300.3900, L500.2500, L501.5200, L501.2300, L100.0100 #### [facility] [address] [place], [address] Potassium Normal 3.3-5.1 [facility] Comment on above: Result Comment: Canc elled via OM: Order cancelled - Patient discharged Performed By: #### L 300.3900, L500.2500, L501.5200, L501.2300, L100.0100 #### [facility] [address] [place], [address] Basic Metabolic Profile (BMP) Normal 133-145 [facility] Comment on above: Result Comment: Canc elled via OM: Order cancelled - Patient discharged Performed By: #### L 300.3900, L500.2500, L501.5200, L501.2300, L100.0100 #### [facility] [address] [place], [address] CBC W/Diff, Automatedon 08- Absolute Neut Normal 2.0-7.7 [facility] Comment on above: Result Comment: Canc elled via OM: Order cancelled - Patient discharged Performed By: #### L 300.3900, L500.2500, L501.5200, L501.2300, L100.0100 #### [facility] [address] [place], [address] HCT Normal 37-47 [facility] Comment on above: Result Comment: Canc elled via OM: Order cancelled - Patient discharged Performed By: #### L 300.3900, L500.2500, L501.5200, L501.2300, L100.0100 #### [facility] [address] [place], [address] HGB Normal 12.0-15.0 [facility] Comment on above: Result Comment: Canc elled via OM: Order cancelled - Patient discharged Performed By: #### L 300.3900, L500.2500, L501.5200, L501.2300, L100.0100 #### [facility] [address] [place], [address] MCH Normal 27.0-32.0 [facility] Comment on above: Result Comment: Canc elled via OM: Order cancelled - Patient discharged Performed By: #### L 300.3900, L500.2500, L501.5200, L501.2300, L100.0100 #### [facility] [address] [place], [address] MCHC Normal 32-36 [facility] Comment on above: Result Comment: Canc elled via OM: Order cancelled - Patient discharged Performed By: #### L 300.3900, L500.2500, L501.5200, L501.2300, L100.0100 #### [facility] [address] [place], [address] MCV Normal 81-99 [facility] Comment on above: Result Comment: Canc elled via OM: Order cancelled - Patient discharged Performed By: #### L 300.3900, L500.2500, L501.5200, L501.2300, L100.0100 #### [facility] [address] [place], [address] NEUT% Normal 47-70 [facility] Comment on above: Result Comment: Canc elled via OM: Order cancelled - Patient discharged Performed By: #### L 300.3900, L500.2500, L501.5200, L501.2300, L100.0100 #### [facility] [address] [place], [address] PLT Normal 150-450 [facility] Comment on above: Result Comment: Canc elled via OM: Order cancelled - Patient discharged Performed By: #### L 300.3900, L500.2500, L501.5200, L501.2300, L100.0100 #### [facility] [address] [place], [address] RBC Normal 4.2-5.4 [facility] Comment on above: Result Comment: Canc elled via OM: Order cancelled - Patient discharged Performed By: #### L 300.3900, L500.2500, L501.5200, L501.2300, L100.0100 #### [facility] [address] [place], [address] RDW CV Normal 11.6-14.6 [facility] Comment on above: Result Comment: Canc elled via OM: Order cancelled - Patient discharged Performed By: #### L 300.3900, L500.2500, L501.5200, L501.2300, L100.0100 #### [facility] [address] [place], [address] RDW SD Normal 35.1-43.9 [facility] Comment on above: Result Comment: Canc elled via OM: Order cancelled - Patient discharged Performed By: #### L 300.3900, L500.2500, L501.5200, L501.2300, L100.0100 #### [facility] [address] [place], [address] WBC Normal 4.4-11.0 [facility] Comment on above: Result Comment: Canc elled via OM: Order cancelled - Patient discharged Performed By: #### L 300.3900, L500.2500, L501.5200, L501.2300, L100.0100 #### [facility] [address] [place], [address] Basic Metabolic Profile (BMP )on 02-28-2025 BUN Normal 4-19 [facility] Comment on above: Result Comment: Canc elled via OM: Order cancelled - Patient discharged Performed By: #### L 100.0100, L500.2500 ####[facility] [address] [place], [address] BUN/CRE Normal 10-20 [facility] Comment on above: Result Comment: Canc elled via OM: Order cancelled - Patient discharged Performed By: #### L 100.0100, L500.2500 ####[facility] [address] [place], [address] Calcium Normal 7.6-11.0 [facility] Comment on above: Result Comment: Canc elled via OM: Order cancelled - Patient discharged Performed By: #### L 100.0100, L500.2500 ####[facility] [address], [address] CL Normal 98-108 [facility] Comment on above: Result Comment: Canc elled via OM: Order cancelled - Patient discharged Performed By: #### L 100.0100, L500.2500 ####[facility] [address] [place], [address] CO2 Normal 21.0-32.0 [facility] Comment on above: Result Comment: Canc elled via OM: Order cancelled - Patient discharged Performed By: #### L 100.0100, L500.2500 ####[facility] [address] [place], [address] CREAT,SERUM Normal 0.70-1.20 [facility] Comment on above: Result Comment: Canc elled via OM: Order cancelled - Patient discharged Performed By: #### L 100.0100, L500.2500 ####[facility] [address] [place], [address] eGFR Normal >60 [facility] Comment on above: Result Comment: Canc elled via OM: Order cancelled - Patient discharged Performed By: #### L 100.0100, L500.2500 ####[facility] [address] [place], [address] GAP Normal 5-15 [facility] Comment on above: Result Comment: Canc elled via OM: Order cancelled - Patient discharged Performed By: #### L 100.0100, L500.2500 ####[facility] [address] [place], [address] GLU Normal 70-99 [facility] Comment on above: Result Comment: Canc elled via OM: Order cancelled - Patient discharged Performed By: #### L 100.0100, L500.2500 ####[facility] [address] [place], [address] Potassium Normal 3.3-5.1 [facility] Comment on above: Result Comment: Canc elled via OM: Order cancelled - Patient discharged Performed By: #### L 100.0100, L500.2500 ####[facility] [address] [place], [address] Basic Metabolic Profile (BMP) Normal 133-145 [facility] Comment on above: Result Comment: Canc elled via OM: Order cancelled - Patient discharged Performed By: #### L 100.0100, L500.2500 ####[facility] [address] [place], [address] CBC W/Diff, Automatedon 08-1 0-2024 Absolute Neut Normal 2.0-7.7 [facility] Comment on above: Result Comment: Canc elled via OM: Order cancelled - Patient discharged Performed By: #### L 100.0100, L500.2500 ####[facility] [address] [place], [address] HCT Normal 37-47 [facility] Comment on above: Result Comment: Canc elled via OM: Order cancelled - Patient discharged Performed By: #### L 100.0100, L500.2500 ####[facility] [address] [place], [address] HGB Normal 12.0-15.0 [facility] Comment on above: Result Comment: Canc elled via OM: Order cancelled - Patient discharged Performed By: #### L 100.0100, L500.2500 ####[facility] [address] [place], [address] MCH Normal 27.0-32.0 [facility] Comment on above: Result Comment: Canc elled via OM: Order cancelled - Patient discharged Performed By: #### L 100.0100, L500.2500 ####[facility] [address] [place], [address] MCHC Normal 32-36 [facility] Comment on above: Result Comment: Canc elled via OM: Order cancelled - Patient discharged Performed By: #### L 100.0100, L500.2500 ####[facility] [address], [address] MCV Normal 81-99 [facility] Comment on above: Result Comment: Canc elled via OM: Order cancelled - Patient discharged Performed By: #### L 100.0100, L500.2500 ####[facility] [address] [place], [address] NEUT% Normal 47-70 [facility] Comment on above: Result Comment: Canc elled via OM: Order cancelled - Patient discharged Performed By: #### L 100.0100, L500.2500 ####[facility] [address] [place], [address] PLT Normal 150-450 [facility] Comment on above: Result Comment: Canc elled via OM: Order cancelled - Patient discharged Performed By: #### L 100.0100, L500.2500 ####[facility] [address] [place], [address] RBC Normal 4.2-5.4 [facility] Comment on above: Result Comment: Canc elled via OM: Order cancelled - Patient discharged Performed By: #### L 100.0100, L500.2500 ####[facility] [address] [place], [address] RDW CV Normal 11.6-14.6 [facility] Comment on above: Result Comment: Canc elled via OM: Order cancelled - Patient discharged Performed By: #### L 100.0100, L500.2500 ####[facility] [address] [place], [address] RDW SD Normal 35.1-43.9 [facility] Comment on above: Result Comment: Canc elled via OM: Order cancelled - Patient discharged Performed By: #### L 100.0100, L500.2500 ####[facility] [address] [place], [address] WBC Normal 4.4-11.0 [facility] Comment on above: Result Comment: Canc elled via OM: Order cancelled - Patient discharged Performed By: #### L 100.0100, L500.2500 ####[facility] [address] [place], [address] Basic Metabolic Profile (BMP )on 02-27-2025 BUN Normal 4-19 [facility] Comment on above: Result Comment: Canc elled via OM: Order cancelled - Patient discharged Performed By: #### L 300.3900, L500.2500, L501.5200, L501.2300, L100.0100 #### [facility] [address] [place], [address] BUN/CRE Normal 10-20 [facility] Comment on above: Result Comment: Canc elled via OM: Order cancelled - Patient discharged Performed By: #### L 300.3900, L500.2500, L501.5200, L501.2300, L100.0100 #### [facility] [address] [place], [address] Calcium Normal 7.6-11.0 [facility] Comment on above: Result Comment: Canc elled via OM: Order cancelled - Patient discharged Performed By: #### L 300.3900, L500.2500, L501.5200, L501.2300, L100.0100 #### [facility] [address] [place], [address] CL Normal 98-108 [facility] Comment on above: Result Comment: Canc elled via OM: Order cancelled - Patient discharged Performed By: #### L 300.3900, L500.2500, L501.5200, L501.2300, L100.0100 #### [facility] [address] [place], [address] CO2 Normal 21.0-32.0 [facility] Comment on above: Result Comment: Canc elled via OM: Order cancelled - Patient discharged Performed By: #### L 300.3900, L500.2500, L501.5200, L501.2300, L100.0100 #### [facility] [address] [place], [address] CREAT,SERUM Normal 0.70-1.20 [facility] Comment on above: Result Comment: Canc elled via OM: Order cancelled - Patient discharged Performed By: #### L 300.3900, L500.2500, L501.5200, L501.2300, L100.0100 #### [facility] [address] [place], [address] eGFR Normal >60 [facility] Comment on above: Result Comment: Canc elled via OM: Order cancelled - Patient discharged Performed By: #### L 300.3900, L500.2500, L501.5200, L501.2300, L100.0100 #### [facility] [address] [place], [address] GAP Normal 5-15 [facility] Comment on above: Result Comment: Canc elled via OM: Order cancelled - Patient discharged Performed By: #### L 300.3900, L500.2500, L501.5200, L501.2300, L100.0100 #### [facility] [address] [place], [address] GLU Normal 70-99 [facility] Comment on above: Result Comment: Canc elled via OM: Order cancelled - Patient discharged Performed By: #### L 300.3900, L500.2500, L501.5200, L501.2300, L100.0100 #### [facility] [address] [place], [address] Potassium Normal 3.3-5.1 [facility] Comment on above: Result Comment: Canc elled via OM: Order cancelled - Patient discharged Performed By: #### L 300.3900, L500.2500, L501.5200, L501.2300, L100.0100 #### [facility] [address] [place], [address] Basic Metabolic Profile (BMP) Normal 133-145 [facility] Comment on above: Result Comment: Canc elled via OM: Order cancelled - Patient discharged Performed By: #### L 300.3900, L500.2500, L501.5200, L501.2300, L100.0100 #### [facility] [address] [place], [address] CBC W/Diff, Automatedon 08-0 -2024 Absolute Neut Normal 2.0-7.7 [facility] Comment on above: Result Comment: Canc elled via OM: Order cancelled - Patient discharged Performed By: #### L 300.3900, L500.2500, L501.5200, L501.2300, L100.0100 #### [facility] [address] [place], [address] HCT Normal 37-47 [facility] Comment on above: Result Comment: Canc elled via OM: Order cancelled - Patient discharged Performed By: #### L 300.3900, L500.2500, L501.5200, L501.2300, L100.0100 #### [facility] [address] [place], [address] HGB Normal 12.0-15.0 [facility] Comment on above: Result Comment: Canc elled via OM: Order cancelled - Patient discharged Performed By: #### L 300.3900, L500.2500, L501.5200, L501.2300, L100.0100 #### [facility] [address] [place], [address] MCH Normal 27.0-32.0 [facility] Comment on above: Result Comment: Canc elled via OM: Order cancelled - Patient discharged Performed By: #### L 300.3900, L500.2500, L501.5200, L501.2300, L100.0100 #### [facility] [address] [place], [address] MCHC Normal 32-36 [facility] Comment on above: Result Comment: Canc elled via OM: Order cancelled - Patient discharged Performed By: #### L 300.3900, L500.2500, L501.5200, L501.2300, L100.0100 #### [facility] [address] [place], [address] MCV Normal 81-99 [facility] Comment on above: Result Comment: Canc elled via OM: Order cancelled - Patient discharged Performed By: #### L 300.3900, L500.2500, L501.5200, L501.2300, L100.0100 #### [facility] [address] [place], [address] NEUT% Normal 47-70 [facility] Comment on above: Result Comment: Canc elled via OM: Order cancelled - Patient discharged Performed By: #### L 300.3900, L500.2500, L501.5200, L501.2300, L100.0100 #### [facility] [address] [place], [address] PLT Normal 150-450 [facility] Comment on above: Result Comment: Canc elled via OM: Order cancelled - Patient discharged Performed By: #### L 300.3900, L500.2500, L501.5200, L501.2300, L100.0100 #### [facility] [address] [place], [address] RBC Normal 4.2-5.4 [facility] Comment on above: Result Comment: Canc elled via OM: Order cancelled - Patient discharged Performed By: #### L 300.3900, L500.2500, L501.5200, L501.2300, L100.0100 #### [facility] [address] [place], [address] RDW CV Normal 11.6-14.6 [facility] Comment on above: Result Comment: Canc elled via OM: Order cancelled - Patient discharged Performed By: #### L 300.3900, L500.2500, L501.5200, L501.2300, L100.0100 #### [facility] [address] [place], [address] RDW SD Normal 35.1-43.9 [facility] Comment on above: Result Comment: Canc elled via OM: Order cancelled - Patient discharged Performed By: #### L 300.3900, L500.2500, L501.5200, L501.2300, L100.0100 #### [facility] [address] [place], [address] WBC Normal 4.4-11.0 [facility] Comment on above: Result Comment: Canc elled via OM: Order cancelled - Patient discharged Performed By: #### L 300.3900, L500.2500, L501.5200, L501.2300, L100.0100 #### [facility] [address] [place], [address] Basic Metabolic Profile (BMP )on 02-26-2025 BUN Normal 4-19 [facility] Comment on above: Result Comment: Canc elled via OM: Order cancelled - Patient discharged Performed By: #### L 100.0100, L500.2500 #### [facility] [address] [place], [address] BUN/CRE Normal 10-20 [facility] Comment on above: Result Comment: Canc elled via OM: Order cancelled - Patient discharged Performed By: #### L 100.0100, L500.2500 #### [facility] [address] [place], [address] Calcium Normal 7.6-11.0 [facility] Comment on above: Result Comment: Canc elled via OM: Order cancelled - Patient discharged Performed By: #### L 100.0100, L500.2500 #### [facility] [address] [place], [address] CL Normal 98-108 [facility] Comment on above: Result Comment: Canc elled via OM: Order cancelled - Patient discharged Performed By: #### L 100.0100, L500.2500 #### [facility] [address] [place], [address] CO2 Normal 21.0-32.0 [facility] Comment on above: Result Comment: Canc elled via OM: Order cancelled - Patient discharged Performed By: #### L 100.0100, L500.2500 #### [facility] [address] [place], [address] CREAT,SERUM Normal 0.70-1.20 [facility] Comment on above: Result Comment: Canc elled via OM: Order cancelled - Patient discharged Performed By: #### L 100.0100, L500.2500 #### [facility] [address] [place], [address] eGFR Normal >60 [facility] Comment on above: Result Comment: Canc elled via OM: Order cancelled - Patient discharged Performed By: #### L 100.0100, L500.2500 #### [facility] [address] [place], [address] GAP Normal 5-15 [facility] Comment on above: Result Comment: Canc elled via OM: Order cancelled - Patient discharged Performed By: #### L 100.0100, L500.2500 #### [facility] [address] [place], [address] GLU Normal 70-99 [facility] Comment on above: Result Comment: Canc elled via OM: Order cancelled - Patient discharged Performed By: #### L 100.0100, L500.2500 #### [facility] [address] [place], [address] Potassium Normal 3.3-5.1 [facility] Comment on above: Result Comment: Canc elled via OM: Order cancelled - Patient discharged Performed By: #### L 100.0100, L500.2500 #### [facility] [address] [place], [address] Basic Metabolic Profile (BMP) Normal 133-145 [facility] Comment on above: Result Comment: Canc elled via OM: Order cancelled - Patient discharged Performed By: #### L 100.0100, L500.2500 #### [facility] [address] [place], [address] CBC W/Diff, Automatedon 08-0 -2024 Absolute Neut Normal 2.0-7.7 [facility] Comment on above: Result Comment: Canc elled via OM: Order cancelled - Patient discharged Performed By: #### L 100.0100, L500.2500 ####[facility] [address] [place], [address] HCT Normal 37-47 [facility] Comment on above: Result Comment: Canc elled via OM: Order cancelled - Patient discharged Performed By: #### L 100.0100, L500.2500 ####[facility] [address] [place], [address] HGB Normal 12.0-15.0 [facility] Comment on above: Result Comment: Canc elled via OM: Order cancelled - Patient discharged Performed By: #### L 100.0100, L500.2500 ####[facility] [address] [place], [address] MCH Normal 27.0-32.0 [facility] Comment on above: Result Comment: Canc elled via OM: Order cancelled - Patient discharged Performed By: #### L 100.0100, L500.2500 ####[facility] [address] [place], [address] MCHC Normal 32-36 [facility] Comment on above: Result Comment: Canc elled via OM: Order cancelled - Patient discharged Performed By: #### L 100.0100, L500.2500 ####[facility] [address] [place], [address] MCV Normal 81-99 [facility] Comment on above: Result Comment: Canc elled via OM: Order cancelled - Patient discharged Performed By: #### L 100.0100, L500.2500 ####[facility] [address] [place], [address] NEUT% Normal 47-70 [facility] Comment on above: Result Comment: Canc elled via OM: Order cancelled - Patient discharged Performed By: #### L 100.0100, L500.2500 ####[facility] [address] [place], [address] PLT Normal 150-450 [facility] Comment on above: Result Comment: Canc elled via OM: Order cancelled - Patient discharged Performed By: #### L 100.0100, L500.2500 ####[facility] [address] [place], [address] RBC Normal 4.2-5.4 [facility] Comment on above: Result Comment: Canc elled via OM: Order cancelled - Patient discharged Performed By: #### L 100.0100, L500.2500 ####[facility] [address] [place], [address] RDW CV Normal 11.6-14.6 [facility] Comment on above: Result Comment: Canc elled via OM: Order cancelled - Patient discharged Performed By: #### L 100.0100, L500.2500 ####[facility] [address] [place], [address] RDW SD Normal 35.1-43.9 [facility] Comment on above: Result Comment: Canc elled via OM: Order cancelled - Patient discharged Performed By: #### L 100.0100, L500.2500 ####[facility] [address] [place], [address] WBC Normal 4.4-11.0 [facility] Comment on above: Result Comment: Canc elled via OM: Order cancelled - Patient discharged Performed By: #### L 100.0100, L500.2500 ####[facility] [address] [place], [address] Absolute lymphocyte countOrd ered By: Clarissa Herrera on 02-25-2025 Lymphocytes Auto (Unsp spec) [#/Vol] 2.42 10*3/uL 0.83-4.51 [facility] Absolute neutrophil countOrd ered By: Clarissa Herrera on 02-25-2025 Neutrophils (Bld) [#/Vol] 3.3 10*3/uL 2.0-7.7 [facility] Anion gap in Serum or Plasma Ordered By: Clarissa Herrera on 02-25-2025 Anion gap [Moles/Vol] 15 mmol/L 5-15 [facility] Automated lymphocyte count a s percentage of total leukocytesOrdered By: Clarissa Herrera on 02-25-2025 Lymphocytes/100 WBC Auto (Unsp spec) 36.3 % 19-41 [facility] BUN/creatinine ratioOrdered By: Clarissa Herrera on 02-25-2025 Urea nitrogen/Creatinine [Mass ratio] 15.1 mg/mg 10- [facility] Basic Metabolic Profile (BMP )on 02-25-2025 BUN/CRE 15.1 RATIO Normal - [facility] Comment on above: Performed By: #### L 300.3900, L500.2500, L501.5200, L501.2300, L100.0100 #### [facility] [address] [place], [address] Calcium [Mass/Vol] 9.2 mg/dL Normal 7.6-11.0 [facility] Comment on above: Performed By: #### L 300.3900, L500.2500, L501.5200, L501.2300, L100.0100 #### [facility] [address] [place], [address] Chloride [Moles/Vol] 108 mmol/L Normal 98-108 [facility] Comment on above: Performed By: #### L 300.3900, L500.2500, L501.5200, L501.2300, L100.0100 #### [facility] [address] [place], [address] CO2 [Moles/Vol] 17.7 mmol/L Low 21.0-32.0 [facility] Comment on above: Performed By: #### L 300.3900, L500.2500, L501.5200, L501.2300, L100.0100 #### [facility] [address] [place], [address] Creatinine [Mass/Vol] 0.70 mg/dL Normal 0.70-1.20 [facility] Comment on above: Performed By: #### L 300.3900, L500.2500, L501.5200, L501.2300, L100.0100 #### [facility] [address] [place], [address] ECRCL 100.46 ml/min Normal 50-250 [facility] Comment on above: Performed By: #### L 300.3900, L500.2500, L501.5200, L501.2300, L100.0100 #### [facility] [address] [place], [address] GAP 15 Normal 5-15 [facility] Comment on above: Performed By: #### L 300.3900, L500.2500, L501.5200, L501.2300, L100.0100 #### [facility] [address] [place], [address] GFR/1.73 sq M.predicted among non-blacks MDRD (S/P/Bld) [Vol rate/Area] 98 mL/min/{1.73_m2} Normal >60 [facility] Comment on above: Result Comment: mL/m in/1.73m2 CKD-EPI Creatinine Equation (2020) Performed By: #### L 300.3900, L500.2500, L501.5200, L501.2300, L100.0100 #### [facility] [address] [place], [address] Glucose [Mass/Vol] 126 mg/dL High 70-99 [facility] Comment on above: Performed By: #### L 300.3900, L500.2500, L501.5200, L501.2300, L100.0100 #### [facility] [address] [place], [address] Potassium [Moles/Vol] 4.2 mmol/L Normal 3.3-5.1 [facility] Comment on above: Result Comment: Hemo lysis present, Results??could be affected. ?? Performed By: #### L 300.3900, L500.2500, L501.5200, L501.2300, L100.0100 #### [facility] [address] [place], [address] Sodium [Moles/Vol] 140 mmol/L Normal 133-145 [facility] Comment on above: Performed By: #### L 300.3900, L500.2500, L501.5200, L501.2300, L100.0100 #### [facility] [address] [place], [address] Urea nitrogen [Mass/Vol] 11 mg/dL Normal 4-19 [facility] Comment on above: Performed By: #### L 300.3900, L500.2500, L501.5200, L501.2300, L100.0100 #### [facility] [address] [place], [address] Basophil percentageOrdered B y: Clarissa Herrera on 02-25-2025 Basophils/100 WBC (Bld) 0.6 % 0-1 [facility] Bedside Glucoseon 02-25-2025 FINGERSTICK GLU 155 mg/dL High 74-106 [facility] Comment on above: Result Comment: JASPER GEMENT OF PATIENT CARE PER NURSING PROTOCOL Performed By: #### L 300.3900, L500.2500, L501.5200, L501.2300, L100.0100 #### [facility] [address] [place], [address] FINGERSTICK GLU 132 mg/dL High 74-106 [facility] Comment on above: Result Comment: JASPER GEMENT OF PATIENT CARE PER NURSING PROTOCOL Performed By: #### L 501.080 #### [facility] [address] [place], [address] CBC W/Diff, Automatedon 08 Absolute Lymph 2.42 X10 3/uL Normal 0.83-4.51 [facility] Comment on above: Order Comment: SHIRA Call. PREVIOUS SPECIMEN REJECTED DUE TOSPECIMEN BEING QNS. 08/07/25 0751 Rickey Boudreaux. Performed By: #### L 100.0100 ####[facility] [address] [place], [address] Absolute Neut 3.3 X10 3/uL Normal 2.0-7.7 [facility] Comment on above: Order Comment: REDRA W. PREVIOUS SPECIMEN REJECTED DUE TOSPECIMEN BEING QNS. 02/25/25750 Rickey Boudreaux. Performed By: #### L 100.0100 ####[facility] [address] [place], [address] Basophils/100 WBC (Bld) 0.6 % Normal 0-1 [facility] Comment on above: Order Comment: REDRA W. PREVIOUS SPECIMEN REJECTED DUE TOSPECIMEN BEING QNS. 02/25/25750 Rickey Boudreaux. Performed By: #### L 100.0100 ####[facility] [address] [place], [address] Eosinophils/100 WBC (Bld) 1.6 % Normal 0-5 [facility] Comment on above: Order Comment: REDRA W. PREVIOUS SPECIMEN REJECTED DUE TOSPECIMEN BEING QNS. 02/25/25750 Rickey Boudreaux. Performed By: #### L 100.0100 ####[facility] [address] [place], [address] Erythrocyte distribution width (RBC) [Ratio] 12.5 % Normal 11.6-14.6 [facility] Comment on above: Order Comment: REDRA W. PREVIOUS SPECIMEN REJECTED DUE TOSPECIMEN BEING QNS. 02/25/25 075 Rickey Velazquezr. Performed By: #### L 100.0100 ####[facility] [address] [place], [address] Hematocrit (Bld) [Volume fraction] 35.2 % Low 37-47 [facility] Comment on above: Order Comment: REDRA W. PREVIOUS SPECIMEN REJECTED DUE TOSPECIMEN BEING QNS. 02/25/25750 Rickey Vega Performed By: #### L 100.0100 ####[facility] [address] [place], [address] Hemoglobin (Bld) [Mass/Vol] 11.8 g/dL Low 12.0-15.0 [facility] Comment on above: Order Comment: REDRA W. PREVIOUS SPECIMEN REJECTED DUE TOSPECIMEN BEING QNS. 02/25/25750 Rickey Vega Performed By: #### L 100.0100 ####[facility] [address] [place], [address] IG% 0.100 Normal 0.0-0.9 [facility] Comment on above: Order Comment: REDRA W. PREVIOUS SPECIMEN REJECTED DUE TOSPECIMEN BEING QNS. 02/25/25750 Rickey Vega Result Comment: IG% - Immature Granulocytes (promyelocytes, myelocytes and metamyelocytes) > 1% indicates that a LEFT SHIFT is Present. Performed By: #### L 100.0100 ####[facility] [address] [place], [address] Lymphocytes/100 WBC (Bld) 36.3 % Normal 19-41 [facility] Comment on above: Order Comment: REDRA W. PREVIOUS SPECIMEN REJECTED DUE TOSPECIMEN BEING QNS. 02/25/25750 Rickey Vega Performed By: #### L 100.0100 ####[facility] [address] [place], [address] MCH (RBC) [Entitic mass] 30.6 pg Normal 27.0-32.0 [facility] Comment on above: Order Comment: REDRA W. PREVIOUS SPECIMEN REJECTED DUE TOSPECIMEN BEING QNS. 02/25/25750 Rickey Vega Performed By: #### L 100.0100 ####[facility] [address] [place], [address] MCHC (RBC) [Mass/Vol] 33.5 g/dL Normal 32-36 [facility] Comment on above: Order Comment: REDRA W. PREVIOUS SPECIMEN REJECTED DUE TOSPECIMEN BEING QNS. 02/25/25 0751 Rickey Boudreaux. Performed By: #### L 100.0100 ####[facility] [address] [place], [address] MCV (RBC) [Entitic vol] 91.4 fL Normal 81-99 [facility] Comment on above: Order Comment: REDRA W. PREVIOUS SPECIMEN REJECTED DUE TOSPECIMEN BEING QNS. 02/25/25 075 Rickey Boudreaux. Performed By: #### L 100.0100 ####[facility] [address] [place], [address] Monocytes/100 WBC (Bld) 12.0 % High 0-10 [facility] Comment on above: Order Comment: REDRA W. PREVIOUS SPECIMEN REJECTED DUE TOSPECIMEN BEING QNS. 02/25/25 0751 Rickey Boudreaux. Performed By: #### L 100.0100 ####[facility] [address] [place], [address] Neutrophils/100 WBC (Bld) 49.4 % Normal 47-70 [facility] Comment on above: Order Comment: REDRA W. PREVIOUS SPECIMEN REJECTED DUE TOSPECIMEN BEING QNS. 02/25/251 Rickey Boudreaux. Performed By: #### L 100.0100 ####[facility] [address] [place], [address] Nucleated RBC (Bld) [#/Vol] 0 10*3/uL Normal 0-5 [facility] Comment on above: Order Comment: REDRA W. PREVIOUS SPECIMEN REJECTED DUE TOSPECIMEN BEING QNS. 02/25/25 0751 Rickey Boudreaux. Performed By: #### L 100.0100 ####[facility] [address] [place], [address] Platelet mean volume (Bld) [Entitic vol] 9.8 fL Normal 6.2-12.0 [facility] Comment on above: Order Comment: REDRA W. PREVIOUS SPECIMEN REJECTED DUE TOSPECIMEN BEING QNS. 02/25/25 0751 Rickey Velazquezr. Performed By: #### L 100.0100 ####[facility] [address] [place], [address] Platelets (Bld) [#/Vol] 261 10*3/uL Normal 150-450 [facility] Comment on above: Order Comment: REDRA W. PREVIOUS SPECIMEN REJECTED DUE TOSPECIMEN BEING QNS. 02/25/25 0751 Rickey Velazquezr. Performed By: #### L 100.0100 ####[facility] [address] [place], [address] RBC (Bld) [#/Vol] 3.85 10*6/uL Low 4.2-5.4 [facility] Comment on above: Order Comment: REDRA W. PREVIOUS SPECIMEN REJECTED DUE TOSPECIMEN BEING QNS. 02/25/25 0751 Rickey Velazquezr. Performed By: #### L 100.0100 ####[facility] [address] [place], [address] RDW SD 41.2 fl Normal 35.1-43.9 [facility] Comment on above: Order Comment: REDRA W. PREVIOUS SPECIMEN REJECTED DUE TOSPECIMEN BEING QNS. 02/25/251 Rickey Velazquezr. Performed By: #### L 100.0100 ####[facility] [address] [place], [address] WBC (Bld) [#/Vol] 6.7 10*3/uL Normal 4.4-11.0 [facility] Comment on above: Order Comment: REDRA W. PREVIOUS SPECIMEN REJECTED DUE TOSPECIMEN BEING QNS. 02/25/25 0751 Rickey Velazquezr. Performed By: #### L 100.0100 ####[facility] [address] [place], [address] Absolute Neut Normal 2.0-7.7 [facility] Comment on above: Result Comment: This specimen has been REJECTED due to Laboratory criteria: Quanity Not Sufficient. PHLEB STAFF has been notified of need of recollection. 02/25/25749 Rickey R Stoner Performed By: #### L 300.3900, L500.2500, L501.5200, L501.2300, L100.0100 #### [facility] [address] [place], [address] HCT Normal 37-47 [facility] Comment on above: Result Comment: This specimen has been REJECTED due to Laboratory criteria: Quanity Not Sufficient. PHLEB STAFF has been notified of need of recollection. 02/25/25749 Rickey R Stoner Performed By: #### L 300.3900, L500.2500, L501.5200, L501.2300, L100.0100 #### [facility] [address] [place], [address] HGB Normal 12.0-15.0 [facility] Comment on above: Result Comment: This specimen has been REJECTED due to Laboratory criteria: Quanity Not Sufficient. PHLEB STAFF has been notified of need of recollection. 02/25/25749 Rickey R Stoner Performed By: #### L 300.3900, L500.2500, L501.5200, L501.2300, L100.0100 #### [facility] [address] [place], [address] MCH Normal 27.0-32.0 [facility] Comment on above: Result Comment: This specimen has been REJECTED due to Laboratory criteria: Quanity Not Sufficient. PHLEB STAFF has been notified of need of recollection. 02/25/25749 Rickey R Stoner Performed By: #### L 300.3900, L500.2500, L501.5200, L501.2300, L100.0100 #### [facility] [address] [place], [address] MCHC Normal 32-36 [facility] Comment on above: Result Comment: This specimen has been REJECTED due to Laboratory criteria: Quanity Not Sufficient. PHLEB STAFF has been notified of need of recollection. 02/25/25749 Rickey R Stoner Performed By: #### L 300.3900, L500.2500, L501.5200, L501.2300, L100.0100 #### [facility] [address] [place], [address] MCV Normal 81-99 [facility] Comment on above: Result Comment: This specimen has been REJECTED due to Laboratory criteria: Quanity Not Sufficient. PHLEB STAFF has been notified of need of recollection. 02/25/25749 Rickey R Stoner Performed By: #### L 300.3900, L500.2500, L501.5200, L501.2300, L100.0100 #### [facility] [address] [place], [address] NEUT% Normal 47-70 [facility] Comment on above: Result Comment: This specimen has been REJECTED due to Laboratory criteria: Quanity Not Sufficient. PHLEB STAFF has been notified of need of recollection. 02/25/25749 Rickey R Stoner Performed By: #### L 300.3900, L500.2500, L501.5200, L501.2300, L100.0100 #### [facility] [address] [place], [address] PLT Normal 150-450 [facility] Comment on above: Result Comment: This specimen has been REJECTED due to Laboratory criteria: Quanity Not Sufficient. PHLEB STAFF has been notified of need of recollection. 02/25/25749 Rickey R Stoner Performed By: #### L 300.3900, L500.2500, L501.5200, L501.2300, L100.0100 #### [facility] [address] [place], [address] RBC Normal 4.2-5.4 [facility] Comment on above: Result Comment: This specimen has been REJECTED due to Laboratory criteria: Quanity Not Sufficient. PHLEB STAFF has been notified of need of recollection. 02/25/25749 Rickey R Stoner Performed By: #### L 300.3900, L500.2500, L501.5200, L501.2300, L100.0100 #### [facility] [address] [place], [address] RDW CV Normal 11.6-14.6 [facility] Comment on above: Result Comment: This specimen has been REJECTED due to Laboratory criteria: Quanity Not Sufficient. PHLEB STAFF has been notified of need of recollection. 02/25/25749 Rickey R Stoner Performed By: #### L 300.3900, L500.2500, L501.5200, L501.2300, L100.0100 #### [facility] [address] [place], [address] RDW SD Normal 35.1-43.9 [facility] Comment on above: Result Comment: This specimen has been REJECTED due to Laboratory criteria: Quanity Not Sufficient. PHLEB STAFF has been notified of need of recollection. 02/25/25749 Rickey R Stoner Performed By: #### L 300.3900, L500.2500, L501.5200, L501.2300, L100.0100 #### [facility] [address] [place], [address] WBC Normal 4.4-11.0 [facility] Comment on above: Result Comment: This specimen has been REJECTED due to Laboratory criteria: Quanity Not Sufficient. PHLEB STAFF has been notified of need of recollection. 02/25/25749 Rickey R Stoner Performed By: #### L 300.3900, L500.2500, L501.5200, L501.2300, L100.0100 #### [facility] [address] [place], [address] Carbon dioxide, total [Moles /volume] in Central venous bloodOrdered By: Clarissa Herrera on 02-25-2025 CO2 [Moles/Vol] 17.7 mmol/L Low 21.0-32.0 [facility] Chloride assayOrdered By: Heidi Herrera on 02-25-2025 Chloride [Moles/Vol] 108 mmol/L 98-108 [facility] Discharge Instructionon Discharge Instruction [facility] Medical Records Department [address] [place] [address] Instructions for Home/Discharge Instructions 02/25/25 1433 MR#: [id number] Acct: [id number] Name: LINA ISAAC Rep #: [id number] : 1965 59 From: Clarissa Herrera MD PCP: Dr. Jese Zheng, DO Status:ADM IN Discharge Instructions DC O2, CPAP, BIPAP needs Home O2 Discharge instructions: Yes Type of respiratory needs?: Oxygen Oxygen frequency: Continuous Continuous oxygen liters per minute: 2 Dressing / Incision Discharge Activity: Return to Normal Activity Dressing / Incision Call your doctor if you observe: Fever of 101 or Higher, Shortness of breath, Dizziness and Chest pain Follow Up Care Test Results: Test results from this visit will be discussed in further detail at your follow-up appointment, if applicable. Discharge Plan Admission Admit Date/Time: 02/22/25 20:21 Primary Reason for Your Visit: nonstemi, hypoxia Attending Provider: Clarissa Herrera Primary Care Provider: Jese Zheng Consulting Providers: Denton Cook; Faye Mace; Elver Montero; Capri Tucker; Justina Abraham; Juju Love; Gopal Talbot; Chet Sidhu; Amrita Woo; MARITZA CHAMORRO; Gayathri Jacome; Ellen Markham; Gus Mott; Mary Kay Dugan Instructions Patient Instructions: Coping with Heart Failure, Heart Attack Dc Discharge Orders/Prescriptions Prescriptions: New carvedilol 3.125 mg Tablet 3.125 mg PO BIDCM Qty: 60 2RF Continued albuterol sulfate 2.5 mg /3 mL (0.083 %) solution for nebulization 2.5 mg INHALATION Q4H PRN (Reason: shortness of breath or wheezing) alcohol swabs [BD Alcohol Swabs] Pads, Medicated See Rx Instructions TOPICAL .COMPLEX Rx Instructions: TOPICAL use 4-5 x qd to check BG and with insulin injections; aspirin [Adult Low Dose Aspirin] 81 mg tablet,delayed release (DR/EC) 81 mg PO DAILY atorvastatin 40 mg tablet 40 mg PO DAILY (DME) FreeStyle Lite Strips Strip See Rx Instructions .ROUTE .MEDSUPPLY Qty: 10 Rx Instructions: use to check BG tid (DME) blood-glucose meter [FreeStyle Lite Meter] Kit See Rx Instructions .ROUTE .MEDSUPPLY Qty: 1 Rx Instructions: As directed (DME) pen needle, diabetic [1st Tier Unifine Pentips] 31 gauge x 3/16 needle See Rx Instructions .ROUTE .MEDSUPPLY Qty: 30 Rx Instructions: use 4 x qd to inject insulin famotidine 20 mg tablet 20 mg PO BID insulin degludec [Tresiba FlexTouch U-100] 100 unit/mL (3 mL) insulin pen 112 unit SC QHS mupirocin 2 % ointment 1 applic TOPICAL BID polyethylene glycol 3350 [Miralax] 17 gram/dose powder 17 g PO BID (DME) lancets [Unilet Super Thin Lancets] 30 gauge misc See Rx Instructions .ROUTE .MEDSUPPLY Qty: 25 Rx Instructions: use to check BG 1 x qd (DME) FreeStyle Michi 14 Day Sensor Kit See Rx Instructions .ROUTE .MEDSUPPLY Qty: 2 6RF Rx Instructions: As directed metformin 1,000 mg tablet 1,000 mg PO BID albuterol sulfate 1 INHALER inhaler 2 puff inhalation Q4H PRN PRN (Reason: Wheezing) Patient Comments: ASTHMA calcium citrate-vitamin D3 1 EACH tablet 1 tab PO DAILY Patient Comments: SUPPLEMENT lisinopril 10 MG tablet 1 tab PO DAILY Patient Comments: TAKE 1 TABLET EVERY DAY magnesium citrate 300 ML solution 150 ml PO Q6H PRN PRN (Reason: Constipation) Qty: 300 0RF cyanocobalamin (vitamin B-12) 1,000 mcg tablet extended release 2,000 mcg PO DAILY Jardiance 10 mg tablet 25 mg PO BREAKFAST Trulicity 4.5 mg/0.5 mL pen injector 4.5 mg subcut QWEEK fluoxetine 20 mg capsule 20 mg PO DAILY gabapentin 100 mg capsule 100 mg PO QHS Novolog FlexPen U-100 Insulin 100 unit/mL (3 mL) insulin pen 20 unit SC TID MDD 80 Qty: 24 4RF Rx Instructions: plus sliding scale Referrals / Follow Up: Elver Montero MD [Med Staff - Active Staff] - Within 1 Month Jese Zheng DO [Primary Care Provider] - Within 1 Week Disposition Disposition (needs filled in before D/C Order can be placed): Home, Self Care 02/25/25 1434 Clarissa Herrera MD CC: Ellen Markham; Justina Abraham MD; Juju Love MD; Dr. Bren Chamorro MD; Dr. Capri Tucker MD; Dr. Elver Montero MD; Dr. Jese Zheng DO; Dr. Chet Sidhu MD; Dr. Faye Mace DO; Dr. Denton Cook MD; Amrita Woo MD; Gopal Talbot MD; Gayathri Jacome DO; Gus Mott MD; Mary Kay Dugan DO Signed Normal [facility] Eosinophil percentageOrdered By: Clarissa Herrera on 02-25-2025 Eosinophils/100 WBC (Bld) 1.6 % 0-5 [facility] Erythrocyte distribution wid th ratioOrdered By: Clarissa Herrera on 02-25-2025 Erythrocyte distribution width (RBC) [Ratio] 12.5 % 11.6-14.6 [facility] Erythrocyte distribution wid th standard deviationOrdered By: Clarissa Herrera on 02-25-2025 Erythrocyte distribution width (RBC) [Ratio] 41.2 fl 35.1-43.9 [facility] Glomerular filtration rate ( GFR) estimation/1.73 sq m using serum, plasma, or whole bOrdered By: Clarissa Herrera on 02-25-2025 GFR/1.73 sq M.predicted among non-blacks MDRD (S/P/Bld) [Vol rate/Area] 98 mL/min/{1.73_m2} >60 [facility] Comment on above: mL/min/1.73m2 CKD-EP I Creatinine Equation (2020) Glucose measurement at bedsi deOrdered By: Clarissa Herrera on 02-25-2025 Glucose [Mass/Vol] 155 mg/dL High 74-106 [facility] Comment on above: MANAGEMENT OF PATIEN T CARE PER NURSING PROTOCOL Hematocrit Auto (Bld) [Volum e fraction]Ordered By: Clarissa Herrera on 02-25-2025 Hematocrit (Bld) [Volume fraction] 35.2 % Low 37-47 [facility] Hemoglobin measurementOrdere d By: Clarissa Herrera on 02-25-2025 Hemoglobin (Bld) [Mass/Vol] 11.8 g/dL Low 12.0-15.0 [facility] Immature granulocytes/100 WB C Auto (Bld)Ordered By: Clarissa Herrera on 02-25-2025 Immature granulocytes/100 WBC (Bld) 0.100 % 0.0-0.9 [facility] Comment on above: IG% - Immature Granu locytes (promyelocytes, myelocytes and metamyelocytes) > 1% indicates that a LEFT SHIFT is Present. MCV (mean corpuscular volume ) determinationOrdered By: Clarissa Herrera on 02-25-2025 MCV (RBC) [Entitic vol] 91.4 fL 81-99 [facility] Mean corpuscular hemoglobin (MCH) determinationOrdered By: Clarissa Herrera 02-25-2025 MCH (RBC) [Entitic mass] 30.6 pg 27.0-32.0 [facility] Mean corpuscular hemoglobin concentration (MCHC) determinationOrdered By: Clarissa Herrera on 02-25-2025 MCHC (RBC) [Mass/Vol] 33.5 g/dL 32-36 [facility] Mean platelet volume determi nationOrdered By: Clarissa Herrera on 02-25-2025 Platelet mean volume (Bld) [Entitic vol] 9.8 fL 6.2-12.0 [facility] Monocyte percentageOrdered B y: Clarissa Herrera on 02-25-2025 Monocytes/100 WBC (Bld) 12.0 % High 0-10 [facility] Neutrophil percentageOrdered By: Clarissa Herrera on 02-25-2025 Neutrophils/100 WBC (Bld) 49.4 % 47-70 [facility] Nucleated red blood cell per centageOrdered By: Clarissa Herrera on 02-25-2025 Nucleated RBC/100 WBC (Bld) [Ratio] 0 % 0-5 [facility] Platelet countOrdered By: Heidi Herrera on 02-25-2025 Platelets (Bld) [#/Vol] 261 10*3/uL 150-450 [facility] Potassium measurement (mass/ volume)Ordered By: Clarissa Herrera on 02-25-2025 Potassium (Unsp spec) [Mass/Vol] 4.2 mmol/L 3.3-5.1 [facility] Comment on above: Hemolysis present, R esults could be affected. RBC Auto (Bld) [#/Vol]Ordere d By: Clarissa Herrera on 02-25-2025 RBC (Bld) [#/Vol] 3.85 10*6/uL Low 4.2-5.4 [facility] Serum creatinine measurement (mass/volume)Ordered By: Clarissa Herrera on 02-25-2025 Creatinine [Mass/Vol] 0.70 mg/dL 0.70-1.20 [facility] Serum glucose measurement (m ass/volume)Ordered By: Clarissa Herrera on 02-25-2025 Glucose [Mass/Vol] 126 mg/dL High 70-99 [facility] Serum or plasma calcium delgado urement (mass/volume)Ordered By: Clarissa Herrera on 02-25-2025 Calcium [Mass/Vol] 9.2 mg/dL 7.6-11.0 [facility] Serum or plasma urea nitroge n measurement (mass/volume)Ordered By: Clarissa Herrera on 02-25-2025 Urea nitrogen [Mass/Vol] 11 mg/dL 4-19 [facility] Sodium levelOrdered By: Clarissa Herrera on 02-25-2025 Sodium [Moles/Vol] 140 mmol/L 133-145 [facility] White blood cell (WBC) count Ordered By: Clarissa Herrera on 02-25-2025 WBC (Bld) [#/Vol] 6.7 10*3/uL 4.4-11.0 [facility] Bedside Glucoseon 02-24-2025 FINGERSTICK GLU 192 mg/dL High 74-106 [facility] Comment on above: Result Comment: JASPER GEMENT OF PATIENT CARE PER NURSING PROTOCOL Performed By: #### L 501.080 #### [facility] [address] [place], [address] FINGERSTICK GLU 209 mg/dL High [address] [facility] Comment on above: Result Comment: JASPER GEMENT OF PATIENT CARE PER NURSING PROTOCOL Performed By: #### L 300.3900, L500.2500, L501.5200, L501.2300, L100.0100 #### [facility] [address] [place], [address] FINGERSTICK GLU 250 mg/dL High -106 [facility] Comment on above: Result Comment: JASPER GEMENT OF PATIENT CARE PER NURSING PROTOCOL Performed By: #### L 501.080 #### [facility] [address] [place], [address] FINGERSTICK GLU 114 mg/dL High [address] [place] [address] Comment on above: Result Comment: JASPER GEMENT OF PATIENT CARE PER NURSING PROTOCOL Performed By: #### L 501.080 #### [facility] [address] [place], [address] Bilirubin, totalOrdered By: Faye Mace on 02-24-2025 Bilirubin [Mass/Vol] 0.85 mg/dL 0.00-1.30 [facility] CBC W/Diff, Automatedon Absolute Lymph 3.17 X10 3/uL Normal 0.83-4.51 [facility] Comment on above: Performed By: #### L 300.3900, L500.2500, L501.5200, L501.2300, L100.0100 #### [facility] [address] [place], [address] Absolute Neut 2.7 X10 3/uL Normal 2.0-7.7 [facility] Comment on above: Performed By: #### L 300.3900, L500.2500, L501.5200, L501.2300, L100.0100 #### [facility] [address], [address] Basophils/100 WBC (Bld) 0.6 % Normal 0-1 [facility] Comment on above: Performed By: #### L 300.3900, L500.2500, L501.5200, L501.2300, L100.0100 #### [facility] [address] [place], [address] Eosinophils/100 WBC (Bld) 1.9 % Normal 0-5 [facility] Comment on above: Performed By: #### L 300.3900, L500.2500, L501.5200, L501.2300, L100.0100 #### [facility] [address], [address] Erythrocyte distribution width (RBC) [Ratio] 12.3 % Normal 11.6-14.6 [facility] Comment on above: Performed By: #### L 300.3900, L500.2500, L501.5200, L501.2300, L100.0100 #### [facility] [address], [address] Hematocrit (Bld) [Volume fraction] 37.4 % Normal 37-47 [facility] Comment on above: Performed By: #### L 300.3900, L500.2500, L501.5200, L501.2300, L100.0100 #### [facility] [address], [address] Hemoglobin (Bld) [Mass/Vol] 12.7 g/dL Normal 12.0-15.0 [facility] Comment on above: Performed By: #### L 300.3900, L500.2500, L501.5200, L501.2300, L100.0100 #### [facility] [address] [place], [address] IG% 0.300 Normal 0.0-0.9 [facility] Comment on above: Result Comment: IG% - Immature Granulocytes (promyelocytes, myelocytes and metamyelocytes) > 1% indicates that a LEFT SHIFT is Present. Performed By: #### L 300.3900, L500.2500, L501.5200, L501.2300, L100.0100 #### [facility] [address] [place], [address] Lymphocytes/100 WBC (Bld) 45.8 % High 19-41 [facility] Comment on above: Performed By: #### L 300.3900, L500.2500, L501.5200, L501.2300, L100.0100 #### [facility] [address] [place], [address] MCH (RBC) [Entitic mass] 30.4 pg Normal 27.0-32.0 [facility] Comment on above: Performed By: #### L 300.3900, L500.2500, L501.5200, L501.2300, L100.0100 #### [facility] [address] [place], [address] MCHC (RBC) [Mass/Vol] 34.0 g/dL Normal 32-36 [facility] Comment on above: Performed By: #### L 300.3900, L500.2500, L501.5200, L501.2300, L100.0100 #### [facility] [address] [place], [address] MCV (RBC) [Entitic vol] 89.5 fL Normal 81-99 [facility] Comment on above: Performed By: #### L 300.3900, L500.2500, L501.5200, L501.2300, L100.0100 #### [facility] [address] [place], [address] Monocytes/100 WBC (Bld) 12.0 % High 0-10 [facility] Comment on above: Performed By: #### L 300.3900, L500.2500, L501.5200, L501.2300, L100.0100 #### [facility] [address] [place], [address] Neutrophils/100 WBC (Bld) 39.4 % Low 47-70 [facility] Comment on above: Performed By: #### L 300.3900, L500.2500, L501.5200, L501.2300, L100.0100 #### [facility] [address] [place], [address] Nucleated RBC (Bld) [#/Vol] 0 10*3/uL Normal 0-5 [facility] Comment on above: Performed By: #### L 300.3900, L500.2500, L501.5200, L501.2300, L100.0100 #### [facility] [address] [place], [address] Platelet mean volume (Bld) [Entitic vol] 10.1 fL Normal 6.2-12.0 [facility] Comment on above: Performed By: #### L 300.3900, L500.2500, L501.5200, L501.2300, L100.0100 #### [facility] [address] [place], [address] Platelets (Bld) [#/Vol] 267 10*3/uL Normal 150-450 [facility] Comment on above: Performed By: #### L 300.3900, L500.2500, L501.5200, L501.2300, L100.0100 #### [facility] [address] [place], [address] RBC (Bld) [#/Vol] 4.18 10*6/uL Low 4.2-5.4 [facility] Comment on above: Performed By: #### L 300.3900, L500.2500, L501.5200, L501.2300, L100.0100 #### [facility] [address] [place], [address] RDW SD 39.8 fl Normal 35.1-43.9 [facility] Comment on above: Performed By: #### L 300.3900, L500.2500, L501.5200, L501.2300, L100.0100 #### [facility] [address] [place], [address] WBC (Bld) [#/Vol] 6.9 10*3/uL Normal 4.4-11.0 [facility] Comment on above: Performed By: #### L 300.3900, L500.2500, L501.5200, L501.2300, L100.0100 #### [facility] [address] [place], [address] CRPon 02-24-2025 C-REACTIVE PROT 43.20 mg/L High 0.0-3.0 [facility] Comment on above: Performed By: #### L 101.9900, L501.6710 ####[facility] [address] [place], [address] Comprehensive Metabolic Prof ilon 02-24-2025 Albumin [Mass/Vol] 3.8 g/dL Normal 3.4-4.8 [facility] Comment on above: Performed By: #### L 300.3900, L500.2500, L501.5200, L501.2300, L100.0100 #### [facility] [address] [place], [address] Albumin/Globulin [Mass ratio] 1.2 {ratio} Normal 0.9-2.4 [facility] Comment on above: Performed By: #### L 300.3900, L500.2500, L501.5200, L501.2300, L100.0100 #### [facility] [address] [place], [address] ALK PHOS 92 U/L Normal 35-104 [facility] Comment on above: Performed By: #### L 300.3900, L500.2500, L501.5200, L501.2300, L100.0100 #### [facility] [address] [place], [address] ALT [Catalytic activity/Vol] 31 U/L Normal <=34 [facility] Comment on above: Performed By: #### L 300.3900, L500.2500, L501.5200, L501.2300, L100.0100 #### [facility] [address] [place], [address] AST [Catalytic activity/Vol] 82 U/L High <=31 [facility] Comment on above: Performed By: #### L 300.3900, L500.2500, L501.5200, L501.2300, L100.0100 #### [facility] [address] [place], [address] Bilirubin [Mass/Vol] 0.85 mg/dL Normal 0.00-1.30 [facility] Comment on above: Performed By: #### L 300.3900, L500.2500, L501.5200, L501.2300, L100.0100 #### [facility] [address] [place], [address] BUN/CRE 19.8 RATIO Normal 10-20 [facility] Comment on above: Performed By: #### L 300.3900, L500.2500, L501.5200, L501.2300, L100.0100 #### [facility] [address] [place], [address] Calcium [Mass/Vol] 9.3 mg/dL Normal 7.6-11.0 [facility] Comment on above: Performed By: #### L 300.3900, L500.2500, L501.5200, L501.2300, L100.0100 #### [facility] [address] [place], [address] Chloride [Moles/Vol] 106 mmol/L Normal 98-108 [facility] Comment on above: Performed By: #### L 300.3900, L500.2500, L501.5200, L501.2300, L100.0100 #### [facility] [address] [place], [address] CO2 [Moles/Vol] 24.9 mmol/L Normal 21.0-32.0 [facility] Comment on above: Performed By: #### L 300.3900, L500.2500, L501.5200, L501.2300, L100.0100 #### [facility] [address] [place], [address] Creatinine [Mass/Vol] 0.54 mg/dL Low 0.70-1.20 [facility] Comment on above: Performed By: #### L 300.3900, L500.2500, L501.5200, L501.2300, L100.0100 #### [facility] [address] [place], [address] ECRCL 133.31 ml/min Normal 50-250 [facility] Comment on above: Performed By: #### L 300.3900, L500.2500, L501.5200, L501.2300, L100.0100 #### [facility] [address] [place], [address] GAP 11 Normal 5-15 [facility] Comment on above: Performed By: #### L 300.3900, L500.2500, L501.5200, L501.2300, L100.0100 #### [facility] [address] [place], [address] GFR/1.73 sq M.predicted among non-blacks MDRD (S/P/Bld) [Vol rate/Area] 106 mL/min/{1.73_m2} Normal >60 [facility] Comment on above: Result Comment: mL/m in/1.73m2 CKD-EPI Creatinine Equation (2020) Performed By: #### L 300.3900, L500.2500, L501.5200, L501.2300, L100.0100 #### [facility] [address] [place], [address] Globulin (S) [Mass/Vol] 3.2 g/dL Normal 2.2-4.2 [facility] Comment on above: Performed By: #### L 300.3900, L500.2500, L501.5200, L501.2300, L100.0100 #### [facility] [address] [place], [address] Glucose [Mass/Vol] 103 mg/dL High 70-99 [facility] Comment on above: Performed By: #### L 300.3900, L500.2500, L501.5200, L501.2300, L100.0100 #### [facility] [address] [place], [address] Potassium [Moles/Vol] 3.6 mmol/L Normal 3.3-5.1 [facility] Comment on above: Performed By: #### L 300.3900, L500.2500, L501.5200, L501.2300, L100.0100 #### [facility] [address] [place], [address] Sodium [Moles/Vol] 142 mmol/L Normal 133-145 [facility] Comment on above: Performed By: #### L 300.3900, L500.2500, L501.5200, L501.2300, L100.0100 #### [facility] [address] [place], [address] T PROT 7.0 g/dL Normal 5.9-8.4 [facility] Comment on above: Performed By: #### L 300.3900, L500.2500, L501.5200, L501.2300, L100.0100 #### [facility] [address] [place], [address] Urea nitrogen [Mass/Vol] 11 mg/dL Normal 4-19 [facility] Comment on above: Performed By: #### L 300.3900, L500.2500, L501.5200, L501.2300, L100.0100 #### [facility] [address] [place], [address] Electrocardiogram reportOrde red By: Elver Montero on 02-24-2025 EKG study [facility] Cardi[facility] Services [address] [place] [address] 12 Lead EKG 02/22/25 1635 MR#: [id number] Acct: [id number] Name: LINA ISAAC Rep #:[id number] : 1965 59 From: Elver Montero MD Attending Dr: Dr. Clarissa Herrera MD Status: ADM IN Ordering Dr: John Catherine MD Date: 02/22/25 Location: ICU Sex: F AA Admitted: 02/22/25 Test Reason : CP Blood Pressure : */* mmHG Vent. Rate : 110 BPM Atrial Rate : 110 BPM P-R Int : 156 ms QRS Dur : 84 ms QT Int : 344 ms P-R-T Axes : 60 0 110 degrees QTcB Int : 465 ms Sinus tachycardia Possible Left atrial enlargement Left ventricular hypertrophy with repolarization abnormality ( R in aVL ) Inferior infarct , age undetermined Abnormal ECG Confirmed by WINSTON DELACRUZ, ELVER ([id number]), index editor REGGIE SHEARER ([id number]) on 02/24/2025 7:34:59 AM Referred By: JACK/OLGA Confirmed By: ELVER MONTERO MD 02/24/25 0735 Date _ Elver Montero MD CC: Dr. John Catherine MD; Dr. Jese Zheng DO; Dr. Clarissa Herrera MD ~ Signed [facility] Work Phone: Erythrocyte Sed Rateon 02-24 SED RATE 23 mm/hr Normal 0-30 [facility] Comment on above: Performed By: #### L 101.9900, L501.6710 ####[facility] [address] [place], [place], [id number] Erythrocyte sedimentation ra teOrdered By: Faye Mace on 02-24-2025 ESR (Bld) [Velocity] 23 mm/h 0-30 [facility] Hemoglobin A1con 02-24-2025 HbA1c (Bld) [Mass fraction] 9.9 % High <=5.6 [facility] Comment on above: Result Comment: Norm al < 5.7 % Prediabetic 5.7 - 6.4 % Diabetic >or= 6.5 % Please note range changes. Performed By: #### L 300.3900, L500.2500, L501.5200, L501.2300, L100.0100 #### [facility] [address] [place], [place], [address] Hemoglobin A1c percentageOrd ered By: Clarissa Herrera on 02-24-2025 HbA1c (Bld) [Mass fraction] 9.9 % High <5.7 [facility] Comment on above: Normal < 5.7 % Predi abetic 5.7 - 6.4 % Diabetic >or= 6.5 % Please note range changes. Laboratory - Chemistry and C hemistry - challengeOrdered By: Faye Mace on 02-24-2025 AST [Catalytic activity/Vol] 82 U/L High <32 [facility] Magnesiumon 02-24-2025 Magnesium [Mass/Vol] 2.2 mg/dL Normal 1.5-2.2 [facility] Comment on above: Performed By: #### L 300.3900, L500.2500, L501.5200, L501.2300, L100.0100 #### [facility] [address] [place], [place], [address] Magnesium measurement (mass/ volume)Ordered By: Faye Mace on 02-24-2025 Magnesium (Unsp spec) [Mass/Vol] 2.2 mg/dL 1.5-2.2 [facility] Phosphoruson 02-24-2025 Phosphate [Mass/Vol] 4.3 mg/dL Normal 2.7-4.5 [facility] Comment on above: Performed By: #### L 300.3900, L500.2500, L501.5200, L501.2300, L100.0100 #### [facility] [address] [place], [place], [address] Serum globulin measurementOr dered By: Faye Mace on 02-24-2025 Globulin (S) [Mass/Vol] 3.2 g/dL 2.2-4.2 [facility] Serum or plasma C reactive p rotein measurement (mass/volume)Ordered By: Faye Mace on 02-24-2025 CRP [Mass/Vol] 43.20 mg/L High 0.0-3.0 [facility] Serum or plasma alanine little otransferase (ALT) measurementOrdered By: Faye Mace on 02-24-2025 ALT [Catalytic activity/Vol] 31 U/L <35 [facility] Serum or plasma albumin delgado urement (mass/volume)Ordered By: Faye Mace on 02-24-2025 Albumin [Mass/Vol] 3.8 g/dL 3.4-4.8 [facility] Serum or plasma albumin/glob ulin mass ratioOrdered By: Faye Mace on 02-24-2025 Albumin/Globulin [Mass ratio] 1.2 {ratio} 0.9-2.4 [facility] Serum or plasma alkaline ambar sphatase measurementOrdered By: Faye Mace on 02-24-2025 ALP [Catalytic activity/Vol] 92 U/L 35-104 [facility] TSH DL <= 0.005 mIU/L QnOrde red By: Faye Mace on 02-24-2025 TSH Qn 2.330 uIU/mL 0.300-4.200 [facility] Thyroid Stim Hormone (TSH)on 02-24-2025 TSH 2.330 uIU/mL Normal 0.300-4.200 [facility] Comment on above: Performed By: #### L 300.3900, L500.2500, L501.5200, L501.2300, L100.0100 #### [facility] [address] [facility] [address] [place], [place], [address] Total proteinOrdered By: Ann Mace on 02-24-2025 Protein [Mass/Vol] 7.0 g/dL 5.9-8.4 [facility] Abdomen/Pelvis without Conto n 02-23-2025 Abdomen/Pelvis without Cont [facility] Imaging Services [address] [place], [place] [address] Abdomen/Pelvis without Cont MR#: [id number] Acct: [id number] Name: LINA ISAAC Rep #: [id number] : 1965 F 59 From: Sourav sanabria MD PCP: Dr. Jese Zheng DO Status: ADM IN Study: Abdomen/Pelvis without Cont Date of Exam: 12/13 Exam# [id number] Ordering Dr: Faye Mace DO PROCEDURE: ABDOMEN/PELVIS WITHOUT CONT 02/23/2025 REASON FOR EXAM: BACK/FLANK PAIN Left flank pain. TECHNIQUE: ABDOMEN/PELVIS WITHOUT CONT Noncontrast technique limits evaluation of the abdominal and pelvic viscera. Coronal and Sagittal reconstruction series were provided. One or more dose reduction techniques were used (e.g., Automated exposure control, adjustment of the mA and/or kV according to patient size, use of iterative reconstruction technique). RADIATION DOSE SUMMARY: CTDlvol: 14.8 mGy DLP: 949.4 mGycm COMPARISON: Prior study dated August 21, 2019. FINDINGS: Lung bases: Small bilateral pleural effusions. Findings suggestive of bibasilar atelectasis. There is an 11.4 mm noncalcified nodule in the anterior right middle lobe. Coronary artery calcification. Liver: Unremarkable Gallbladder: Unremarkable Spleen: Normal size. Pancreas: Normal size. No surrounding inflammation. Adrenals: The adrenal glands are unremarkable. Kidneys: No evidence of ureteral obstruction. No evidence of hydronephrosis. Bladder: The urinary bladder is only partially filled. Reproductive Organs: Questionable uterine prolapse. Bowel: Colonic diverticulosis without diverticulitis. Surgical anastomosis is seen in the central small-bowel. Appendix: The appendix is not identified. There is no inflammatory process identified in the right lower quadrant to suggest appendicitis. Lymph nodes: Unremarkable. Vasculature: Mild diffuse atherosclerotic calcifications are noted. Peritoneum / Retroperitoneum: Unremarkable Bones: Degenerative changes of the spine. CT/Abdomen/Pelvis without Cont IMPRESSION: No evidence of the ureteral obstruction. Reading Location: [id number] CC: Dr. Jese Zheng DO; Dr. Faye Mace DO Fur Trimmer: Signed Normal [facility] Basic Metabolic Profile (BMP )on 02-23-2025 BUN/CRE 17.5 RATIO Normal 10-20 [facility] Comment on above: Performed By: #### L 300.3900, L500.2500, L501.5200, L501.2300, L100.0100 #### [facility] [address] [place], [address] Calcium [Mass/Vol] 9.0 mg/dL Normal 7.6-11.0 [facility] Comment on above: Performed By: #### L 300.3900, L500.2500, L501.5200, L501.2300, L100.0100 #### [facility] [address] [place], [address] Chloride [Moles/Vol] 102 mmol/L Normal 98-108 [facility] Comment on above: Performed By: #### L 300.3900, L500.2500, L501.5200, L501.2300, L100.0100 #### [facility] [address] [place], [address] CO2 [Moles/Vol] 23.6 mmol/L Normal 21.0-32.0 [facility] Comment on above: Performed By: #### L 300.3900, L500.2500, L501.5200, L501.2300, L100.0100 #### [facility] [address] [place], [address] Creatinine [Mass/Vol] 0.66 mg/dL Low 0.70-1.20 [facility] Comment on above: Performed By: #### L 300.3900, L500.2500, L501.5200, L501.2300, L100.0100 #### [facility] [address] [place], [address] ECRCL 109.07 ml/min Normal 50-250 [facility] Comment on above: Performed By: #### L 300.3900, L500.2500, L501.5200, L501.2300, L100.0100 #### [facility] [address] [place], [address] GAP 13 Normal 5-15 [facility] Comment on above: Performed By: #### L 300.3900, L500.2500, L501.5200, L501.2300, L100.0100 #### [facility] [address] [place], [address] GFR/1.73 sq M.predicted among non-blacks MDRD (S/P/Bld) [Vol rate/Area] 100 mL/min/{1.73_m2} Normal >60 [facility] Comment on above: Result Comment: mL/m in/1.73m2 CKD-EPI Creatinine Equation (2020) Performed By: #### L 300.3900, L500.2500, L501.5200, L501.2300, L100.0100 #### [facility] [address] [place], [address] Glucose [Mass/Vol] 253 mg/dL High 70-99 [facility] Comment on above: Performed By: #### L 300.3900, L500.2500, L501.5200, L501.2300, L100.0100 #### [facility] [address] [place], [address] Potassium [Moles/Vol] 3.5 mmol/L Normal 3.3-5.1 [facility] Comment on above: Performed By: #### L 300.3900, L500.2500, L501.5200, L501.2300, L100.0100 #### [facility] [address] [place], [address] Sodium [Moles/Vol] 138 mmol/L Normal 133-145 [facility] Comment on above: Performed By: #### L 300.3900, L500.2500, L501.5200, L501.2300, L100.0100 #### [facility] [address] [place], [address] Urea nitrogen [Mass/Vol] 12 mg/dL Normal 4-19 [facility] Comment on above: Performed By: #### L 300.3900, L500.2500, L501.5200, L501.2300, L100.0100 #### [facility] [address] [place], [address] Bedside Glucoseon 02-23-2025 FINGERSTICK GLU 186 mg/dL High 74-106 [facility] Comment on above: Result Comment: JASPER RUIZ OF PATIENT CARE PER NURSING PROTOCOL Performed By: #### L 501.080 ####[facility] [address] [place], [address] FINGERSTICK GLU 144 mg/dL High 74-106 [facility] Comment on above: Result Comment: JASPER GEMENT OF PATIENT CARE PER NURSING PROTOCOL Performed By: #### L 501.080 #### [facility] [address] [place], [address] FINGERSTICK GLU 140 mg/dL High 74-106 [facility] Comment on above: Result Comment: JASPER GEMENT OF PATIENT CARE PER NURSING PROTOCOL Performed By: #### L 300.3900, L500.2500, L501.5200, L501.2300, L100.0100 #### [facility] [address] [place], [address] FINGERSTICK GLU 263 mg/dL High 74-106 [facility] Comment on above: Result Comment: JASPER GEMENT OF PATIENT CARE PER NURSING PROTOCOL Performed By: #### L 501.080 #### [facility] [address] [place], [address] FINGERSTICK GLU 241 mg/dL High -106 [facility] Comment on above: Result Comment: JASPER GEMENT OF PATIENT CARE PER NURSING PROTOCOL Performed By: #### L 501.080 ####[facility] [address], [address] FINGERSTICK GLU 373 mg/dL High 74-106 [facility] Comment on above: Result Comment: JASPER GEMENT OF PATIENT CARE PER NURSING PROTOCOL Performed By: #### L 501.080 #### [facility] [address] [place], [address] Brain/Head without Contrasto n 02-23-2025 Brain/Head without Contrast [facility] Imaging Services [address] [place] [address] Brain/Head without Contrast MR#: [id number] Acct: [id number] Name: LINA ISAAC Rep #: [id number] : 1965 F 59 From: Sourav sanabria MD PCP: Dr. Jese Zheng DO Status: ADM IN Study: Brain/Head without Contrast Date of Exam: 12/13 Exam# [id number] Ordering Dr: Faye Mace DO PROCEDURE: BRAIN/HEAD WITHOUT CONTRAST 02/23/2025 REASON FOR EXAM: ALTERED MS TECHNIQUE: BRAIN/HEAD WITHOUT CONTRAST Coronal and Sagittal reconstruction series were provided. One or more dose reduction techniques were used (e.g., Automated exposure control, adjustment of the mA and/or kV according to patient size, use of iterative reconstruction technique. RADIATION DOSE SUMMARY: CTDlvol: 44.99 mGy DLP: 779.24 mGycm COMPARISON: None FINDINGS: Brain: Low density in the periventricular white matter suggests mild chronic small vessel ischemic changes. Focal decreased density in the posterior medial aspect of the left occipital lobe suggestive of possible prior ischemic insult. CSF Spaces: Mild generalized cerebral atrophy Sinuses/Mastoids: Mild mucosal thickening of the left maxillary sinus. Bones: Unremarkable. CT/Brain/Head without Contrast IMPRESSION: CHRONIC CHANGES. NO ACUTE FINDINGS. Reading Location: [id number] CC: Dr. Jese Zheng DO; Dr. Faye Mace DO Fur Trimmer: Signed Normal [facility] CBC W/Diff, Automatedon Absolute Lymph 2.76 X10 3/uL Normal 0.83-4.51 [facility] Comment on above: Performed By: #### L 300.3900, L500.2500, L501.5200, L501.2300, L100.0100 #### [facility] [address] [place], [address] Absolute Neut 4.5 X10 3/uL Normal 2.0-7.7 [facility] Comment on above: Performed By: #### L 300.3900, L500.2500, L501.5200, L501.2300, L100.0100 #### [facility] [address] [place], [address] Basophils/100 WBC (Bld) 0.7 % Normal 0-1 [facility] Comment on above: Performed By: #### L 300.3900, L500.2500, L501.5200, L501.2300, L100.0100 #### [facility] [address] [place], [address] Eosinophils/100 WBC (Bld) 1.3 % Normal 0-5 [facility] Comment on above: Performed By: #### L 300.3900, L500.2500, L501.5200, L501.2300, L100.0100 #### [facility] [address] [place], [address] Erythrocyte distribution width (RBC) [Ratio] 12.3 % Normal 11.6-14.6 [facility] Comment on above: Performed By: #### L 300.3900, L500.2500, L501.5200, L501.2300, L100.0100 #### [facility] [address] [place], [address] Hematocrit (Bld) [Volume fraction] 36.7 % Low 37-47 [facility] Comment on above: Performed By: #### L 300.3900, L500.2500, L501.5200, L501.2300, L100.0100 #### [facility] [address] [place], [address] Hemoglobin (Bld) [Mass/Vol] 12.6 g/dL Normal 12.0-15.0 [facility] Comment on above: Performed By: #### L 300.3900, L500.2500, L501.5200, L501.2300, L100.0100 #### [facility] [address] [place], [address] IG% 0.200 Normal 0.0-0.9 [facility] Comment on above: Result Comment: IG% - Immature Granulocytes (promyelocytes, myelocytes and metamyelocytes) > 1% indicates that a LEFT SHIFT is Present. Performed By: #### L 300.3900, L500.2500, L501.5200, L501.2300, L100.0100 #### [facility] [address] [place], [address] Lymphocytes/100 WBC (Bld) 32.5 % Normal 19-41 [facility] Comment on above: Performed By: #### L 300.3900, L500.2500, L501.5200, L501.2300, L100.0100 #### [facility] [address] [place], [address] MCH (RBC) [Entitic mass] 30.6 pg Normal 27.0-32.0 [facility] Comment on above: Performed By: #### L 300.3900, L500.2500, L501.5200, L501.2300, L100.0100 #### [facility] [address] [place], [address] MCHC (RBC) [Mass/Vol] 34.3 g/dL Normal 32-36 [facility] Comment on above: Performed By: #### L 300.3900, L500.2500, L501.5200, L501.2300, L100.0100 #### [facility] [address] [place], [address] MCV (RBC) [Entitic vol] 89.1 fL Normal 81-99 [facility] Comment on above: Performed By: #### L 300.3900, L500.2500, L501.5200, L501.2300, L100.0100 #### [facility] [address] [place], [address] Monocytes/100 WBC (Bld) 12.7 % High 0-10 [facility] Comment on above: Performed By: #### L 300.3900, L500.2500, L501.5200, L501.2300, L100.0100 #### [facility] [address] [place], [address] Neutrophils/100 WBC (Bld) 52.6 % Normal 47-70 [facility] Comment on above: Performed By: #### L 300.3900, L500.2500, L501.5200, L501.2300, L100.0100 #### [facility] [address] [place], [address] Nucleated RBC (Bld) [#/Vol] 0 10*3/uL Normal 0-5 [facility] Comment on above: Performed By: #### L 300.3900, L500.2500, L501.5200, L501.2300, L100.0100 #### [facility] [address] [place], [address] Platelet mean volume (Bld) [Entitic vol] 10.2 fL Normal 6.2-12.0 [facility] Comment on above: Performed By: #### L 300.3900, L500.2500, L501.5200, L501.2300, L100.0100 #### [facility] [address] [place], [address] Platelets (Bld) [#/Vol] 269 10*3/uL Normal 150-450 [facility] Comment on above: Performed By: #### L 300.3900, L500.2500, L501.5200, L501.2300, L100.0100 #### [facility] [address] [place], [address] RBC (Bld) [#/Vol] 4.12 10*6/uL Low 4.2-5.4 [facility] Comment on above: Performed By: #### L 300.3900, L500.2500, L501.5200, L501.2300, L100.0100 #### [facility] [address] [place], [address] RDW SD 39.6 fl Normal 35.1-43.9 [facility] Comment on above: Performed By: #### L 300.3900, L500.2500, L501.5200, L501.2300, L100.0100 #### [facility] [address] [place], [address] WBC (Bld) [#/Vol] 8.5 10*3/uL Normal 4.4-11.0 [facility] Comment on above: Performed By: #### L 300.3900, L500.2500, L501.5200, L501.2300, L100.0100 #### [facility] [address] [facility] [place], [address] Consultation - Cardiologyon 02-23-2025 Consultation - Cardiology [facility] Medical Records Department [address] [place] [address] Consultation - Cardiology 02/23/25 0759 MR#: [id number] Acct: [id number] Name: LINA ISAAC Rep #: [id number] : 1965 59 From: Elver Montero MD PCP: Dr. Jese Zheng, DO Status:ADM IN Location: [place] [address] Assessment Plan Assessment/Plan (1) Chest pain: PLAN: She presents with chest discomfort which has some atypical features but her cardiac enzymes are elevated significantly enough that I think that we need to likely pursue a left heart catheterization. The risk benefits alternatives of an explained to the patient she understands and agrees to proceed. (2) Elevated troponin: PLAN: She does have evidence of elevated troponin. Will need to evaluate the above with a cardiac catheterization. (3) HTN (hypertension): QUALIFIERS: Hypertension type: essential hypertension Qualified Code(s): I10 - Essential (primary) hypertension PLAN: Her blood pressure appears to be elevated and I would recommend that we start her on an JANNIE inhibitor as she is a diabetic. An echocardiogram will be also performed to assess her ventricular function and depending on the findings further recommendations will be made. HPI Consult Data Date of Consult: 02/23/25 HPI Narrative HPI Narrative: LINA ISAAC, is a 59 F who presents to the emergency room after she was sent there from her physician's office with a complaint of chest discomfort. She describes this as sharp location and a dull does not allow her to lie down and she has to sit up and has not been able to sleep well for a few days. She also says that she has been short of breath and has had a productive cough with some wheezing and she thought it was a pneumonia went to the primary physician's office but was sent to the emergency room. In the emergency room she was evaluated she was noted to be tachycardic with a decent blood pressure and cardiac enzymes were noted to be abnormal and cardiology was called for further evaluation and management. She does have a history of diabetes, but no history of hypertension or hyperlipidemia. [facility] Medical History Dyslipidemia Trigger ring finger of left hand Obesity Essential hypertension GERD (gastroesophageal reflux disease) Low HDL (under 40) Incisional hernia without obstruction or gangrene Unspecified hereditary and idiopathic peripheral neuropathy Type 2 diabetes mellitus with polyneuropathy Kidney stones Blood clot in vein Hx: UTI (urinary tract infection) Home Medications ???Medication ???Instructions ???Recorded ???Last Taken ???Type albuterol sulfate 90 mcg/actuation 2 puff inhalation Q4H PRN PRN 04/08/14 02:30 History aerosol inhaler Wheezing calcium 315 mg (as 1 tab PO DAILY 04/08/14 04/05/17 2 2:00 History citrate)-vitamin D3 6.25 mcg (250 2 tab unit) tablet lisinopril 10 mg tablet 1 tab PO DAILY 04/07/17 04/05/17 0 8:00 History 1 tab magnesium citrate 150 ml PO Q6H PRN PRN Constipation 01/22/19 Unknown Rx #300 mL albuterol sulfate 2.5 mg/3 mL 2.5 mg inhalation Q4H PRN 05/11/19 Unknown History (0.083 %) solution for nebulization shortness of breath or wheezing alcohol swabs (BD Alcohol Swabs) See Rx Instructions topical Unknown History .COMPLEX aspirin 81 mg tablet,delayed 81 mg PO DAILY 05/11/19 Unknown Hi story release (Adult Low Dose Aspirin) atorvastatin 40 mg tablet 40 mg PO DAILY 05/11/19 Unknown Hi story blood sugar diagnostic (FreeStyle #10 ea 05/11/19 Unknown History Lite Strips) blood-glucose meter (FreeStyle #1 ea 05/11/19 Unknown History Lite Meter kit) famotidine 20 mg tablet 20 mg PO BID 05/11/19 Unknown Hist ory insulin degludec 100 unit/mL (3 112 unit subcut QHS 05/11/19 Unkno wn History mL) subcutaneous pen (Tresiba FlexTouch U-100 insulin) lancets 30 gauge (Unilet Super #25 ea 05/11/19 Unknown History Thin Lancets) mupirocin 2 % topical ointment 1 applic topical BID 05/11/19 Unkn own History pen needle, diabetic 31 gauge x #30 ea 05/11/19 Unknown History 3/16 (1st Tier Unifine Pentips) polyethylene glycol 3350 17 17 g PO BID 05/11/19 Unknown Histo ry gram/dose oral powder (Miralax) flash glucose sensor (FreeStyle #2 ea 02/26/20 Unknown Rx Michi 14 Day Sensor kit) insulin aspart U-100 100 unit/mL 20 unit (0.2 mL) subcut TID #24 mL 04/05/20 Unknown Rx (3 mL) subcutaneous pen (Novolog FlexPen U-100 Insulin aspart) metformin 1,000 mg tablet 1,000 mg PO BID diabetes 02/06/21 Unknown History cyanocobalamin (vitamin B-12) 2,000 mcg PO DAILY 02/22/25 Unknow n History 1,000 mcg tablet,extended release dulaglutide 4.5 mg/0.5 mL 4.5 mg subcut QWEEK 02/22/25 Unkno wn History subcutaneous pen injector (T (more content not included)... Normal [facility] Echo Complete W/ Contraston 02-23-2025 Echo Complete W/ Contrast [facility] Cardiovascular Services [address] [place] [address] Echo Complete W/ Contrast 02/23/25 1437 MR#: [id number] Acct: [id number] Name: LINA ISAAC Rep #: [id number] : 1965 59 From: Elver Montero MD Attending Dr: Dr. Faye Mace, DO Status: ADM I N Ordering Dr: Denton Cook MD Date: 02/23/25 Location: ICU Sex: F AA Admitted: 02/22/25 Reason For Study Reason For Study: CHF Procedure This was a 2D Doppler, Color Flow transthoracic echocardiogram. Contrast injection was performed. Exam performed portable in ICU/CCU. Left Ventricle Normal LV size. Mild concentric left ventricular hypertrophy. The left ventricular ejection fraction is 35 %. Stage 2 diastolic dysfunction. There is moderate global hypokinesis of the left ventricle. Right Ventricle Normal RV size. Normal systolic function. Atria Normal left atrium. Normal right atrium. Mitral Valve Normal mitral valve. Mild-Moderate (1-2+) eccentric mitral valve insufficiency. Tricuspid Valve Normal tricuspid valve. Mild to moderate (1-2+) tricuspid valve insufficiency. Pulmonary artery systolic pressure is 35 mmHg. Aortic Valve Trisinus/trileaflet aortic valve. Mild (1+) aortic valve insufficiency. Pulmonic Valve Normal pulmonic valve. Great Vessels Normal aortic root. The pulmonary artery is normal size. Inferior vena cava collapse with sniff. The inferior vena cava is dilated. Pericardium/Pleural No pericardial effusion. Medication Diluted definity 1ml given slow IV push to enhance endocardial definition. MMode/2D Measurements Calculations LVIDd: 5.0 cm IVSd: 1.2 cm Ao root diam: 3.5 cm LVIDs: 3.7 cm LVPWd: 1.2 cm RVDd: 4.1 cm FS: 26.5 % LAV(MOD-bp): 60.2 ml LVAd ap4: 35.1 cm2 LVAd ap2: 29.8 cm2 LAV(MOD-bp) Indexed: 29.0 ml/m2 LVLd ap4: 7.5 cm LVLd ap2: 6.9 cm LAV(MOD-sp2): 62.9 ml EDV(MOD-sp4): 133.8 ml EDV(MOD-sp2): 106.7 ml LAV(MOD-sp4): 53.0 ml EDV(sp4-el): 139.6 ml EDV(sp2-el): 109.7 ml LVAs ap4: 27.4 cm2 LVAs ap2: 24.4 cm2 LVLs ap4: 7.2 cm LVLs ap2: 6.5 cm ESV(MOD-sp4): 85.6 ml ESV(MOD-sp2): 74.8 ml ESV(sp4-el): 88.9 ml ESV(sp2-el): 78.3 ml EF(MOD-sp4): 36.1 % EF(MOD-sp2): 29.9 % EF(sp4-el): 36.3 % SV(MOD-sp4): 48.3 ml SV(MOD-sp2): 31.9 ml SV(sp4-el): 50.7 ml SI(MOD-sp4): 23.2 ml/m2 SI(MOD-sp2): 15.3 ml/m2 LA A4 area: 20.1 cm2 LA dimension(2D): 4.0 cm RA A4 area: 12.9 cm2 TAPSE: 2.0 cm Doppler Measurements Calculations MV E max obie: 93.5 cm/sec Lat Peak E' Obie: 6.9 cm/sec Med Peak E' Obie: 6.2 cm/sec MV A max obie: 58.4 cm/sec E/E' lat: 13.6 E/E' med: 15.0 MV E/A: 1.6 Ao V2 max: 147.5 cm/sec AI max obie: 393.0 cm/sec LV V1 max: 89.5 cm/sec Ao max P.7 mmHg AI max P.9 mmHg LV V1 max P.2 mmHg Ao V2 mean: 102.1 cm/sec Ao mean P.5 mmHg AI dec slope: 449.3 cm/sec2 Ao V2 VTI: 23.4 cm AI P1/2t: 256.2 msec PA V2 max: 61.9 cm/sec PI end-d obie: 145.6 cm/sec TR max obie: 280.2 cm/sec TR max P.4 mmHg ECHO/Echo Complete W/ Contrast Interpretation Summary Normal LV size. The left ventricular ejection fraction is 35 %. Stage 2 diastolic dysfunction. There is moderate global hypokinesis of the left ventricle. Mild concentric left ventricular hypertrophy. Contrast injection was performed. Ordering Physician: Denton Cook Referring Physician: Jese Zheng Performed By: Shanelle Roger, JEFFCS, RVT 02/23/251626 Date Elver Montero MD CC: Dr. Jese Zheng DO; Dr. Faye Mace DO; Dr. Denton Cook MD Date Dictated: 02/23/251436 Date Transcribed: 02/23/251626 Fur Trimmer: Signed Normal [facility] Echocardiogram study reportO rdered By: Elver Montero on 02-23-2025 Study report [facility] [address] [place] [address] Echo Complete W/ Contrast 02/23/251436 MR#: [id number] Acct: [id number] Name: MART ISAACJOHNNY Del Angel Rep #:[id number] : 1965 59 From: Elver Del Angel Attending Dr: Dr. Faye Mace DO S tatus: ADM IN Ordering Dr: Denton Cook MD Date: Location: ICU Sex: F AA Admitted: 02/22/25 Reason For Study Reason For Study: CHF Procedure This was a 2D Doppler, Color Flow transthoracic echocardiogram. Contrast injection was performed. Exam performed portable in ICU/CCU. Left Ventricle Normal LV size. Mild concentric left ventricular hypertrophy. The left ventricular ejection fraction is 35 %. Stage 2 diastolic dysfunction. There is moderate global hypokinesis of the left ventricle. Right Ventricle Normal RV size. Normal systolic function. Atria Normal left atrium. Normal right atrium. Mitral Valve Normal mitral valve. Mild-Moderate (1-2+) eccentric mitral valve insufficiency. Tricuspid Valve Normal tricuspid valve. Mild to moderate (1-2+) tricuspid valve insufficiency. Pulmonary artery systolic pressure is 35 mmHg. Aortic Valve Trisinus/trileaflet aortic valve. Mild (1+) aortic valve insufficiency. Pulmonic Valve Normal pulmonic valve. Great Vessels Normal aortic root. The pulmonary artery is normal size. Inferior vena cava collapse with sniff. The inferior vena cava is dilated. Pericardium/Pleural No pericardial effusion. Medication Diluted definity 1ml given slow IV push to enhance endocardial definition. MMode/2D Measurements & Calculations LVIDd: 5.0 cm IVSd: 1.2 cm Ao root diam: 3.5 cm LVIDs: 3.7 cm LVPWd: 1.2 cm RVDd: 4.1 cm FS: 26.5 % LAV(MOD-bp): 60.2 ml LVAd ap4: 35.1 cm2 LVAd ap2: 29.8 cm2 LAV(MOD-bp) Indexed: 29.0 ml/m2 LVLd ap4: 7.5 cm LVLd ap2: 6.9 cm LAV(MOD-sp2): 62.9 ml EDV(MOD-sp4): 133.8 ml EDV(MOD-sp2): 106.7 ml LAV(MOD-sp4): 53.0 ml EDV(sp4-el): 139.6 ml EDV(sp2-el): 109.7 ml LVAs ap4: 27.4 cm2 LVAs ap2: 24.4 cm2 LVLs ap4: 7.2 cm LVLs ap2: 6.5 cm ESV(MOD-sp4): 85.6 ml ESV(MOD-sp2): 74.8 ml ESV(sp4-el): 88.9 ml ESV(sp2-el): 78.3 ml EF(MOD-sp4): 36.1 % EF(MOD-sp2): 29.9 % EF(sp4-el): 36.3 % SV(MOD-sp4): 48.3 ml SV(MOD-sp2): 31.9 ml SV(sp4-el): 50.7 ml SI(MOD-sp4): 23.2 ml/m2 SI(MOD-sp2): 15.3 ml/m2 LA A4 area: 20.1 cm2 LA dimension(2D): 4.0 cm RA A4 area: 12.9 cm2 __ TAPSE: 2.0 cm Doppler Measurements & Calculations MV E max obie: 93.5 cm/sec Lat Peak E' Obie: 6.9 cm/sec Med Peak E' Obie: 6.2 cm/sec MV A max obie: 58.4 cm/sec E/E' lat: 13.6 E/E' med: 15.0 MV E/A: 1.6 Ao V2 max: 147.5 cm/sec AI max obie: 393.0 cm/sec LV V1 max: 89.5 cm/sec Ao max P.7 mmHg AI max P.9 mmHg LV V1 max P.2 mmHg Ao V2 mean: 102.1 cm/sec Ao mean P.5 mmHg AI dec slope: 449.3 cm/sec2 Ao V2 VTI: 23.4 cm AI P1/2t: 256.2 msec PA V2 max: 61.9 cm/sec PI end-d obie: 145.6 cm/sec TR max obie: 280.2 cm/sec TR max P.4 mmHg ECHO/Echo Complete W/ Contrast Interpretation Summary Normal LV size. The left ventricular ejection fraction is 35 %. Stage 2 diastolic dysfunction. There is moderate global hypokinesis of the left ventricle. Mild concentric left ventricular hypertrophy. Contrast injection was performed. Ordering Physician: Denton Cook Referring Physician: Jese Zheng Performed By: Shanelle Roger, DOMINIC, RVT 02/23/251626 Date _ Elver Montero MD CC: Dr. Jese Zheng DO; Dr. Faye Mace DO; Dr. Denton Cook MD ~ Date Dictated: 02/23/25 1437 Date Transcribed: 02/23/251626 Fur Trimmer: Signed [facility] Work Phone: International normalized rat io (INR) calculationOrdered By: Denton Cook on 02-23-2025 INR Coag (Bld) [Relative time] 1.0 {INR} [facility] Lactic Acidon 02-23-2025 Lactate [Moles/Vol] 1.5 mmol/L Normal 0.0-2.0 [facility] Comment on above: Order Comment: NO0 V RIY Performed By: #### L 501.080 #### [facility] [address] [place], [place], [id number] Lactic acid measurementOrder ed By: Faye Mace on 02-23-2025 Lactate [Moles/Vol] 1.5 mmol/L 0.0-2.0 [facility] Magnesiumon 02-23-2025 Magnesium [Mass/Vol] 1.9 mg/dL Normal 1.5-2.2 [facility] Comment on above: Performed By: #### L 300.3900, L500.2500, L501.5200, L501.2300, L100.0100 #### [facility] [address] [place], [place], [id number] Phosphoruson 02-23-2025 Phosphate [Mass/Vol] 3.0 mg/dL Normal 2.7-4.5 [facility] Comment on above: Performed By: #### L 300.3900, L500.2500, L501.5200, L501.2300, L100.0100 #### [facility] [address] [place], [address] Prothrombin Time w/INRon INR Coag (PPP) [Relative time] 1.0 {INR} Normal [facility] Comment on above: Performed By: #### L 300.3900, L500.2500, L501.5200, L501.2300, L100.0100 #### [facility] [address] [place], [address] PT Coag (PPP) [Time] 13.6 s Normal 11.7-14.9 [facility] Comment on above: Performed By: #### L 300.3900, L500.2500, L501.5200, L501.2300, L100.0100 #### [facility] [address], [address] Prothrombin timeOrdered By: Denton Cook on 02-23-2025 PT Coag (PPP) [Time] 13.6 s 11.7-14.9 [facility] Spine Lumbar WITH Contraston 02-23-2025 Spine Lumbar WITH Contrast [facility] Imaging Services [address] [place] [address] Spine Lumbar WITH Contrast MR#: [id number] Acct: [id number] Name: LINA ISAAC Bean Rep #: [id number] : 1965 F 59 From: José Benitez MD PCP: Dr. Jese Zheng DO Status: ADM IN Study: Spine Lumbar WITH Contrast Date of Exam: 02/23 Exam# [id number] Ordering Dr: Faye Mace DO PROCEDURE: SPINE LUMBAR WITH CONTRAST 02/23/2025 REASON FOR EXAM: PAIN TECHNIQUE: SPINE LUMBAR WITH CONTRAST CONTRAST: Isovue 370 VOLUME: 100 mL One or more dose reduction techniques were used (e.g., Automated exposure control, adjustment of the mA and/or kV according to patient size, use of iterative reconstruction technique). RADIATION DOSE SUMMARY: CTDlvol: 20 mGy DLP: 1030 mGycm COMPARISON: Abdominopelvic CT same day FINDINGS: Mild scoliosis. Diffuse mild facet arthritis. Multilevel mild disc space narrowing, which is severe, at L5-S1, with vacuum disc, and a small posterior disc osteophyte complex. At L4-L5, grade 1 anterolisthesis. At L3-L4, minimal grade 1 anterolisthesis. Small right and tiny left effusions. Bibasilar airspace disease, atelectasis/consolid ation. Right-sided renal scarring. Upper abdominal solid organs show no acute findings. Nondistended bowel. Small bowel anastomosis. Normal appendix. Multiple diverticula. Paraspinal soft tissues show no acute findings. CT/Spine Lumbar WITH Contrast IMPRESSION: Lumbar spine scoliosis and degeneration. Lumbar spine degeneration mainly L5-S1. No acute findings. Reading Location: [place] [address] CC: Dr. Jese Zheng DO; Dr. Faye Mace, DO Fur Trimmer: Signed Normal [facility] Troponin T HS 4 HRon 025 Trop T High Sen 164 ng/L Invalid Interpretation Code <=14 [facility] Comment on above: Result Comment: Crit ical Result(s) Called at: 0008 by:??MISHEL CASANOVA TO [employer]. Results read back by same. Performed By: #### L 501.080 #### [facility] [address] [facility] [place], [address] 12 Lead EKGon 02-22-2025 12 Lead EKG [facility] Cardiovascular Services [address] [place] [address] 12 Lead EKG 02/22/25 1635 MR#: [id number] Acct: [id number] Name: LINA ISAAC Rep #: [id number] : 1965 59 From: Elver Montero MD Attending Dr: Dr. Clarissa Herrera MD Status: AD M IN Ordering Dr: John Catherine MD Date: 02/22/25 Location: ICU Sex: F AA Admitted: 02/22/25 Test Reason : CP Blood Pressure : */* mmHG Vent. Rate : 110 BPM Atrial Rate : 110 BPM P-R Int : 156 ms QRS Dur : 84 ms QT Int : 344 ms P-R-T Axes : 60 0 110 degrees QTcB Int : 465 ms Sinus tachycardia Possible Left atrial enlargement Left ventricular hypertrophy with repolarization abnormality ( R in aVL ) Inferior infarct , age undetermined Abnormal ECG Confirmed by ELVER MONTERO MD ([id number]), index editor REGGIE SHEARER ([id number]) on 02/24/2025 7:34:59 AM Referred By: PEDRO Confirmed By: ELVER MONTERO MD 02/24/25 0735 Date Elver Montero MD CC: Dr. John Catherine MD; Dr. Jese Zheng DO; Dr. Clarissa Herrera MD Signed Normal [facility] Absolute lymphocyte countOrd ered By: John Catherine on 02-22-2025 Lymphocytes Auto (Unsp spec) [#/Vol] 2.92 10*3/uL 0.83-4.51 [facility] Absolute neutrophil countOrd ered By: John Catherine on 02-22-2025 Neutrophils (Bld) [#/Vol] 3.8 10*3/uL 2.0-7.7 [facility] Anion gap in Serum or Plasma Ordered By: John Catherine on 02-22-2025 Anion gap [Moles/Vol] 12 mmol/L 5-15 [facility] Automated blood erythrocyte countOrdered By: John Catherine on 02-22-2025 RBC (Bld) [#/Vol] 4.29 10*6/uL Normal 4.2-5.4 [facility] Comment on above: Performed By: #### L 501.080 #### [facility] [address] [place], [place], [id number] Automated blood hematocrit ( percentage)Ordered By: John Catherine on 02-22-2025 Hematocrit (Bld) [Volume fraction] 38.3 % Normal 37-47 [facility] Comment on above: Performed By: #### L 501.080 #### [facility] [address] [place], [address] Automated lymphocyte count a s percentage of total leukocytesOrdered By: John Catherine on 02-22-2025 Lymphocytes/100 WBC Auto (Unsp spec) 37.3 % 19- [facility] BUN/creatinine ratioOrdered By: John Catherine on 02-22-2025 Urea nitrogen/Creatinine [Mass ratio] 15.5 mg/mg - [facility] Basic Metabolic Profile (BMP )on 02-22-2025 BUN/CRE 15.5 RATIO Normal - [facility] Comment on above: Performed By: #### L 300.3900, L500.2500, L501.5200, L501.2300, L100.0100 #### [facility] [address] [place], [address] Calcium [Mass/Vol] 9.3 mg/dL Normal 7.6-11.0 [facility] Comment on above: Performed By: #### L 300.3900, L500.2500, L501.5200, L501.2300, L100.0100 #### [facility] [address] [place], [address] Chloride [Moles/Vol] 103 mmol/L Normal 98-108 [facility] Comment on above: Performed By: #### L 300.3900, L500.2500, L501.5200, L501.2300, L100.0100 #### [facility] [address] [place], [address] CO2 [Moles/Vol] 24.0 mmol/L Normal 21.0-32.0 [facility] Comment on above: Performed By: #### L 300.3900, L500.2500, L501.5200, L501.2300, L100.0100 #### [facility] [address] [place], [address] Creatinine [Mass/Vol] 0.57 mg/dL Low 0.70-1.20 [facility] Comment on above: Performed By: #### L 300.3900, L500.2500, L501.5200, L501.2300, L100.0100 #### [facility] [address] [place], [address] ECRCL 127.95 ml/min Normal 50-250 [facility] Comment on above: Performed By: #### L 300.3900, L500.2500, L501.5200, L501.2300, L100.0100 #### [facility] [address] [place], [address] GAP 12 Normal 5-15 [facility] Comment on above: Performed By: #### L 300.3900, L500.2500, L501.5200, L501.2300, L100.0100 #### [facility] [address] [place], [address] GFR/1.73 sq M.predicted among non-blacks MDRD (S/P/Bld) [Vol rate/Area] 104 mL/min/{1.73_m2} Normal >60 [facility] Comment on above: Result Comment: mL/m in/1.73m2 CKD-EPI Creatinine Equation (2020) Performed By: #### L 300.3900, L500.2500, L501.5200, L501.2300, L100.0100 #### [facility] [address] [place], [address] Glucose [Mass/Vol] 270 mg/dL High 70-99 [facility] Comment on above: Performed By: #### L 300.3900, L500.2500, L501.5200, L501.2300, L100.0100 #### [facility] [address] [place], [address] Potassium [Moles/Vol] 3.6 mmol/L Normal 3.3-5.1 [facility] Comment on above: Performed By: #### L 300.3900, L500.2500, L501.5200, L501.2300, L100.0100 #### [facility] [address] [place], [address] Sodium [Moles/Vol] 139 mmol/L Normal 133-145 [facility] Comment on above: Performed By: #### L 300.3900, L500.2500, L501.5200, L501.2300, L100.0100 #### [facility] [address] [place], [address] Urea nitrogen [Mass/Vol] 9 mg/dL Normal 4-19 [facility] Comment on above: Performed By: #### L 300.3900, L500.2500, L501.5200, L501.2300, L100.0100 #### [facility] [address] [place], [address] Basophil percentageOrdered B y: John Catherine on 02-22-2025 Basophils/100 WBC (Bld) 0.8 % Normal 0-1 [facility] Comment on above: Performed By: #### L 501.080 #### [facility] [address] [place], [address] CBC W/Diff, Automatedon 08-0 Absolute Lymph 2.92 X10 3/uL Normal 0.83-4.51 [facility] Comment on above: Performed By: #### L 501.080 #### [facility] [address] [place], [address] Absolute Neut 3.8 X10 3/uL Normal 2.0-7.7 [facility] Comment on above: Performed By: #### L 501.080 #### [facility] [address] [place], [address] IG% 0.400 Normal 0.0-0.9 [facility] Comment on above: Result Comment: IG% - Immature Granulocytes (promyelocytes, myelocytes and metamyelocytes) > 1% indicates that a LEFT SHIFT is Present. Performed By: #### L 501.080 #### [facility] [address] [place], [address] Lymphocytes/100 WBC (Bld) 37.3 % Normal 19-41 [facility] Comment on above: Performed By: #### L 501.080 #### [facility] [address] [place], [address] Nucleated RBC (Bld) [#/Vol] 0 10*3/uL Normal 0-5 [facility] Comment on above: Performed By: #### L 501.080 #### [facility] [address] [place], [address] RDW SD 39.5 fl Normal 35.1-43.9 [facility] Comment on above: Performed By: #### L 501.080 #### [facility] [address] [place], [address] CNOVon 02-22-2025 CNOV Office Visit (FAMPWS) LINA ISAAC ([id number]) 1965 F Date Time Provider Department 02/22/25 3:00 PM SELIN GARCIA FAMPWS During your visit today, we recorded the following information about you: Temperature Pulse Blood pressure 97.7 degrees 110/minute 122/74 Selin Garcia APRN.PROFESSOR OF PHYSICS 02/22/2025 5:27 PM Addendum This is a 59 year old female who presents today with: Patient presents with: Cough Wheezing Shortness of Breath HISTORY OF PRESENT ILLNESS: Lina Isaac is a 59 year old female. Patient presents with: Cough Wheezing Shortness of Breath Can't eat for 2 days- chest hurts too bad- mid-sternal Started feeling poorly 1 week ago. Thought maybe pneumonia again. Can't lay down d/t breathing for last 2 days Dyspnea on exertion for a week- could barely get to office d/t dyspnea Chest pain- mid-sternal, epigastric, rubs sternum when talking about chest hurting. Also left lateral chest. Denies arm, jaw, neck or back pain. Some palpitations. Pain in right shoulder PAST MEDICAL HISTORY: PAST MEDICAL HISTORY Diagnosis Date Asthma (HCC) Bowel perforation 11/05/2012 C. difficile colitis 04/2016 Closed nondisplaced fracture of proximal phalanx of lesser toe of left foot with routine healing 10/07/2019 COVID-19 03/30/2021 Diabetes mellitus type 2 in obese 10/2013 A1C 6.8% Dyslipidemia 01/02/2019 Essential hypertension 08/11/2015 GERD (gastroesophageal reflux disease) Incisional hernia 06/26/2013 Injury to rectosigmoid colon 10/17/2012 Low HDL (under 40) 10/2013 Nephrolithiasis Osteoarthrosis, unspecified whether generalized or localized, other specified sites Osteoarthritis Bilateral knees Spasm of muscle Tobacco use disorder quit 2012 Unspecified hereditary and idiopathic peripheral neuropathy 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 Ramirez COLONOSCOPY 09/17/2022 repeat in 10 years EGD 09/17/2022 HERNIA REPAIR HX 06/22/2013 HYSTERECTOMY HX 2011 fistula with intestine HYSTEROSCOPY, DIAGNOSTIC (SEPARATE Hysteroscopy/Novasur e LAP HYSTERECTOMY FOR UTERUS 250G OR LESS 10/09/2012 with vaginal sling, LSO, right salpingectomy LAPS ABD PRTMANDOMENTUM DX W/WO SPEC BR/WA SPX Laparoscopy LAPS REPAIR HERNIA EXCEPT INCAL/INGUN REDUCIBLE 05/2017 LIG/TRNSXJ FLP TUBE ABDL/VAG APPR UNI/BI 2001 Tubal ligation PAST SURGICAL HISTORY OF 01/30/2005 Left shoulder arthroscopy and debridement PAST SURGICAL HISTORY OF 02/2004 3rd toe left foot PAST SURGICAL HISTORY OF 03/14/2010 right total knee replacement PAST SURGICAL HISTORY OF 03/14/2009 left total knee replacement PAST SURGICAL HISTORY OF 01/23/2013 Ileostomy closure. PAST SURGICAL HISTORY OF Left 01/06/2016 left ring trigger release RPR 1ST INCAL/VNT HERNIA INCARCERATED 06/22/2013 at ileostomy site - 11x[address] mesh RPR RECRT INCAL/VNT HERNIA INCARCERATED 07/23/2014 at midline' RPR RECRT INCAL/VNT HERNIA INCARCERATED 10/11/2014 - recurrent small bowel resection, enterotomy ALLERGIES Omnicef [Cefdinir], Proventil [Albuterol Sulfate], and Tramadol MEDICATIONS Current Outpatient Medications Medication Sig empagliflozin (JARDIANCE) 25 mg tablet Take 1 tablet by mouth daily with breakfast. ibuprofen (MOTRIN) 800 mg tablet TAKE 1 TABLET BY MOUTH EVERY 8 HOURS NEEDED FOR PAIN WITH FOOD lisinopril (ZESTRIL) 10 mg tablet Take 1 tablet by mouth once daily. dulaglutide (TRULICITY) 4.5 mg/0.5 mL pen injector Inject 4.5 mg subcutaneously one time a week. albuterol HFA (VENTOLIN HFA) 90 mcg/actuation inhaler Inhale 2 puffs as instructed every 4 hours as needed. For wheezing/shortness of breath. insulin degludec (TRESIBA FLEXTOUCH U-200) 200 unit/mL (3 mL) injection Inject 112 Units subcutaneously daily at bedtime. insulin aspart U-100 (NOVOLOG U-100 INSULIN ASPART) 100 unit/mL Inject 20 units subcutaneously as directed plus sliding scale with meals. (Max 96 units/day) levalbuterol tartrate HFA (XOPENEX HFA) 45 mcg/actuation inhaler Inhale 1-2 Puffs as instructed every 4 hours as needed for wheezing/shortness of breath. atorvastatin (LIPITOR) 40 mg tablet Take 1 tablet by mouth once daily. ergocalciferol 50,000 unit capsule (VITAMIN D2, DRISDOL) Take 1 capsule by mouth one time a week. mupirocin (BACTROBAN) 2 % ointment Apply to affected area every 12 hours as needed (rash, skin lesions). flash glucose sensor (FREESTYLE MICHI 14 DAY SENSOR) kit Apply sensor to back of arm to check blood sugars as directed. Change sensor every 2 weeks and rotate arms. aspirin, enteric coated (ASPIRIN, ENTERIC COATED) 81 mg EC tablet Take 1 tablet by mouth once daily. famotidine (PEPCID) 20 mg tablet Ta (more content not included)... Normal [facility] Carbon dioxide, total [Moles /volume] in Central venous bloodOrdered By: John Catherine on 02-22-2025 CO2 [Moles/Vol] 24.0 mmol/L 21.0-32.0 [facility] Chest PA and Lateralon 02-22 Chest PA and Lateral [facility] Imaging Services [address] [place] [id number] Chest PA and Lateral MR#: [id number] Acct: [id number] Name: LINA ISAAC Rep #: [id number] : 1965 F 59 From: Norberto Marinelli MD PCP: Dr. Jese Zheng, DO Status: REG ER Study: Chest PA and Lateral Date of Exam: 02/22/25 Exam# [id number] Ordering Dr: John Catherine MD PROCEDURE: CHEST PA AND LATERAL 02/22/2025 REASON FOR EXAM: CHEST PAIN, PROD COUGH, SOB TECHNIQUE: CHEST PA AND LATERAL COMPARISON: 04/06/2021 FINDINGS: Lungs/Pleura: Coarse reticular airspace opacities in the bilateral mid to lower lung zones may represent interstitial/fibroti c lung disease, versus interstitial pulmonary edema, or possibly atypical/viral infection. No perihilar edema. No pneumothorax or pleural effusions. Heart/Mediastinum: Within normal limits. Calcification of the aortic arch. Bones/Soft tissues: Mild degenerative changes of the spine. Trace calcific tendinosis of bilateral shoulder rotator cuffs.. RAD/Chest PA and Lateral IMPRESSION: Bilateral coarse reticular airspace opacities, which may reflect interstitial fibrotic lung changes, interstitial edema, or possibly atypical/viral infection in the appropriate clinical context. Reading Location: [facility] CC: Dr. John Catherine MD; Dr. Jese Zheng DO Fur Trimmer: Signed Normal [facility] Chloride assayOrdered By: Rosalva Catherine on 02-22-2025 Chloride [Moles/Vol] 103 mmol/L 98-108 [facility] ECG COMPLETEon 02-22-2025 ECG COMPLETE Ventricular Rate : 108 BPM Atrial Rate : 108 BPM P-R Interval : 140 ms QRS Duration : 82 ms Q-T Interval : 348 ms QTC Calculation(Bazett) : 466 ms Calculated P [place] : 51 degrees Calculated R [place] : 5 degrees Calculated T [place] : 93 degrees SINUS TACHYCARDIA LEFT VENTRICULAR HYPERTROPHY WITH REPOLARIZATION ABNORMALITY ( R in aVL ) INFERIOR MYOCARDIAL INFARCTION , AGE UNDETERMINED ABNORMAL ECG Confirmed by MD STRONG QARAB ([id number]) on 02/25/2025 9:42:16 AM NAME : OTIS ISAACMORTEZA PID : [id number] : 1965 Gender : Female Race : ORD : [id number] Procedure Date : Feb 22 2025 15:46:22 Edit Date : Feb 25 2025 09:42:19 Diagnosis: SINUS TACHYCARDIA LEFT VENTRICULAR HYPERTROPHY WITH REPOLARIZATION ABNORMALITY ( R in aVL ) INFERIOR MYOCARDIAL INFARCTION , AGE UNDETERMINED ABNORMAL ECG Confirmed by MD STRONG QARAB ([id number]) on 02/25/2025 9:42:16 AM Test Reason : R07.1 Chest pain on breathing Location : 185 : WO Overread By : MD STRONG QARAB Edited By : MD STRONG QARAB Referred By : , Acquired by : [id number], Alhaji [facility] Emergency Department Summary on 02-22-2025 Emergency Department Summary [facility] Medical Records Department [address] [place] [address] Emergency Department Summary 02/22/25 MR#: [id number] Acct: [id number] Name: PONCHOLINA Rep #: [id number] : 1965 59 From: John Catherine MD PCP: Dr. Jese Zheng DO Status:REG ER Location: ED HPI History of Present Illness Chief Complaint: Chest Pain Informant: patient and EMS Narrative Narrative: 59-year-old female was sent from the PCPs office at [facility] due to the patient having intermittent chest pain for 1 week that she states occurs after meals and if she lies down it feels heavy, resolving if she sits up. She states she has been getting epigastric discomfort with this as well after meals, this occurs 20 minutes after eating most meals. She determined that she can eat chicken noodle soup without getting the chest discomfort. She states separate from this, she feels like she has a productive cough and some wheezing for also about the past week that she feels like may be pneumonia which is why she went to the doctor today hoping to get a chest x-ray. She denies any fevers or chills. She does have a history of asthma, she has albuterol inhaler at home and she has been using it, having some temporary relief of wheezing after using it. She has some chronic leg swelling that is similar right now. No history of heart problems but she was sent here because they thought I was having a heart attack. [facility] Medical History (Updated 02/22/25 @ 20:[address] John Catherine MD) Dyslipidemia Trigger ring finger of left hand Obesity Essential hypertension GERD (gastroesophageal reflux disease) Low HDL (under 40) Incisional hernia without obstruction or gangrene Unspecified hereditary and idiopathic peripheral neuropathy Type 2 diabetes mellitus with polyneuropathy Kidney stones Blood clot in vein Hx: UTI (urinary tract infection) Home Medications ???Medication ???Instructions ???Recorded ???Last Taken ???Type albuterol sulfate 90 mcg/actuation 2 puff inhalation Q4H PRN PRN 04/08/14 02:30 History aerosol inhaler Wheezing calcium 315 mg (as 1 tab PO DAILY 04/08/14 04/05/17 2 2:00 History citrate)-vitamin D3 6.25 mcg (250 2 tab unit) tablet lisinopril 10 mg tablet 1 tab PO DAILY 04/07/17 04/05/17 0 8:00 History 1 tab magnesium citrate 150 ml PO Q6H PRN PRN Constipation 01/22/19 Unknown Rx #300 mL albuterol sulfate 2.5 mg/3 mL 2.5 mg inhalation Q4H PRN 05/11/19 Unknown History (0.083 %) solution for nebulization shortness of breath or wheezing alcohol swabs (BD Alcohol Swabs) See Rx Instructions topical Unknown History .COMPLEX aspirin 81 mg tablet,delayed 81 mg PO DAILY 05/11/19 Unknown Hi story release (Adult Low Dose Aspirin) atorvastatin 40 mg tablet 40 mg PO DAILY 05/11/19 Unknown Hi story blood sugar diagnostic (FreeStyle #10 ea 05/11/19 Unknown History Lite Strips) blood-glucose meter (FreeStyle #1 ea 05/11/19 Unknown History Lite Meter kit) clotrimazole-betamet hasone 1 1 applic topical BID 05/11/19 Unkn own History %-0.05 % topical cream (Lotrisone) famotidine 20 mg tablet 20 mg PO BID 05/11/19 Unknown Hist ory glucose 4 gram chewable tablet 16 g PO Q15M PRN 05/11/19 Unknown History insulin degludec 100 unit/mL (3 112 unit subcut QHS 05/11/19 Unkno wn History mL) subcutaneous pen (Tresiba FlexTouch U-100 insulin) lancets 30 gauge (Unilet Super #25 ea 05/11/19 Unknown History Thin Lancets) mupirocin 2 % topical ointment 1 applic topical BID 05/11/19 Unkn own History pen needle, diabetic 31 gauge x #30 ea 05/11/19 Unknown History 3/16 (1st Tier Unifine Pentips) polyethylene glycol 3350 17 17 g PO BID 05/11/19 Unknown Histo ry gram/dose oral powder (Miralax) flash glucose sensor (FreeStyle #2 ea 02/26/20 Unknown Rx Michi 14 Day Sensor kit) insulin aspart U-100 100 unit/mL 20 unit (0.2 mL) subcut TID #24 mL 04/05/20 Unknown Rx (3 mL) subcutaneous pen (Novolog FlexPen U-100 Insulin aspart) metformin 1,000 mg tablet 1,000 mg PO DAILY 02/06/21 Unknown History cyanocobalamin (vitamin B-12) 2,000 mcg PO DAILY 02/22/25 Unknow n History 1,000 mcg tablet,extended release dulaglutide 4.5 mg/0.5 mL 4.5 mg subcut QWEEK 02/22/25 Unkno wn History subcutaneous pen injector (Trulicity) empagliflozin 10 mg tablet 25 mg PO BREAKFAST 02/22/25 Unknow n History (Jardiance) fluoxetine 20 mg capsule 20 mg PO DAILY 02/22/25 Unknown Hi story gabapentin 100 mg capsule 100 mg PO QHS 02/22/25 Unknown His tory levalbuterol tartrate 45 2 inh inhalation Q4H PRN shortness 02/22/25 Unknown History mcg/actuation aerosol inhaler of breath or wheezing (Xopenex HFA) Allergy/AdvReac Type Severity Reaction Status Date / Time tramadol (more content not included)... Normal [facility] Eosinophil percentageOrdered By: John Catherine on 02-22-2025 Eosinophils/100 WBC (Bld) 1.7 % Normal 0-5 [facility] Comment on above: Performed By: #### L 501.080 #### [facility] [address] [place], [place], [id number] Erythrocyte distribution wid th ratioOrdered By: John Catherine on 02-22-2025 Erythrocyte distribution width (RBC) [Ratio] 12.2 % Normal 11.6-14.6 [facility] Comment on above: Performed By: #### L 501.080 #### [facility] [address] [place], [place], [id number] Erythrocyte distribution wid th standard deviationOrdered By: John Catherine on 02-22-2025 Erythrocyte distribution width (RBC) [Ratio] 39.5 fl 35.1-43.9 [facility] Glomerular filtration rate ( GFR) estimation/1.73 sq m using serum, plasma, or whole bOrdered By: John Catherine on 02-22-2025 GFR/1.73 sq M.predicted among non-blacks MDRD (S/P/Bld) [Vol rate/Area] 104 mL/min/{1.73_m2} >60 [facility] Comment on above: mL/min/1.73m2 CKD-EP I Creatinine Equation (2020) Hemoglobin measurementOrdere d By: John Catherine on 02-22-2025 Hemoglobin (Bld) [Mass/Vol] 13.3 g/dL Normal 12.0-15.0 [facility] Comment on above: Performed By: #### L 501.080 #### [facility] [address] [place], [address] Immature granulocytes/100 WB C Auto (Bld)Ordered By: John Catherine on 02-22-2025 Immature granulocytes/100 WBC (Bld) 0.400 % 0.0-0.9 [facility] Comment on above: IG% - Immature Granu locytes (promyelocytes, myelocytes and metamyelocytes) > 1% indicates that a LEFT SHIFT is Present. L501.4021on 02-22-2025 Trop T High Sen 181 ng/L Invalid Interpretation Code <=14 [facility] Comment on above: Result Comment: Crit ical Result(s) Called MMARTIN at: 1905 by: ALYX??Results read back by same. Performed By: #### L 300.3900, L500.2500, L501.5200, L501.2300, L100.0100 #### [facility] [address] [facility] [place], [address] MCV (mean corpuscular volume ) determinationOrdered By: John Catherine on 02-22-2025 MCV (RBC) [Entitic vol] 89.3 fL Normal 81-99 [facility] Comment on above: Performed By: #### L 501.080 #### [facility] [address] [facility] [place], [address] Mean corpuscular hemoglobin (MCH) determinationOrdered By: John Catherine on 02-22-2025 MCH (RBC) [Entitic mass] 31.0 pg Normal 27.0-32.0 [facility] Comment on above: Performed By: #### L 501.080 #### [facility] [address] [facility] [place], [address] Mean corpuscular hemoglobin concentration (MCHC) determinationOrdered By: John Catherine on 02-22-2025 MCHC (RBC) [Mass/Vol] 34.7 g/dL Normal 32-36 [facility] Comment on above: Performed By: #### L 501.080 #### [facility] [address] [place], [place], [phone] Mean platelet volume determi nationOrdered By: John Catherine on 02-22-2025 Platelet mean volume (Bld) [Entitic vol] 10.0 fL Normal 6.2-12.0 [facility] Comment on above: Performed By: #### L 501.080 #### [facility] [address] [place], [address] Monocyte percentageOrdered B y: John Catherine on 02-22-2025 Monocytes/100 WBC (Bld) 11.0 % High 0-10 [facility] Comment on above: Performed By: #### L 501.080 #### [facility] [address] [place], [place], [phone] Natriuretic peptide.B prohor ten N-Terminal [Mass/volume] in Serum or PlasmaOrdered By: John Catherine on 02-22-2025 Natriuretic peptide.B prohormone N-Terminal [Mass/Vol] 3685 pg/mL High <900 [facility] Comment on above: Heart Failure Unlike ly: < 300 pg/mLHeart Failure Likely< 50 Years: > 450 pg/mL50-75 Years: > 900 pg/mL>75 Years: > 1800 pg/mL Neutrophil percentageOrdered By: John Catherine on 02-22-2025 Neutrophils/100 WBC (Bld) 48.8 % Normal 47-70 [facility] Comment on above: Performed By: #### L 501.080 #### [facility] [address] [place], [place], [phone] Nucleated red blood cell per centageOrdered By: John Catherine on 02-22-2025 Nucleated RBC/100 WBC (Bld) [Ratio] 0 % 0-5 [facility] Platelet countOrdered By: Rosalva Catherine on 02-22-2025 Platelets (Bld) [#/Vol] 278 10*3/uL Normal 150-450 [facility] Comment on above: Performed By: #### L 501.080 #### [facility] [address] [place], [place], [address] Potassium measurement (mass/ volume)Ordered By: John Catherine on 02-22-2025 Potassium (Unsp spec) [Mass/Vol] 3.6 mmol/L 3.3-5.1 [facility] Pro- Brain NATRIURETIC PEPTI Francy 02-22-2025 Natriuretic peptide B (Bld) [Mass/Vol] 3685 pg/mL High <=900 [facility] Comment on above: Result Comment: Hear t Failure Unlikely: < 300 pg/mL Heart Failure Likely < 50 Years: > 450 pg/mL 50-75 Years: > 900 pg/mL >75 Years: > 1800 pg/mL Performed By: #### L 501.080 #### [facility] [address] [facility] [place], [place], [address] Serum creatinine measurement (mass/volume)Ordered By: John Catherine on 02-22-2025 Creatinine [Mass/Vol] 0.57 mg/dL Low 0.70-1.20 [facility] Serum glucose measurement (m ass/volume)Ordered By: John Catherine on 02-22-2025 Glucose [Mass/Vol] 270 mg/dL High 70-99 [facility] Serum or plasma calcium delgado urement (mass/volume)Ordered By: John Catherine on 02-22-2025 Calcium [Mass/Vol] 9.3 mg/dL 7.6-11.0 [facility] Serum or plasma urea nitroge n measurement (mass/volume)Ordered By: John Catherine on 02-22-2025 Urea nitrogen [Mass/Vol] 9 mg/dL 4-19 [facility] Sodium levelOrdered By: Bryan Catherine on 02-22-2025 Sodium [Moles/Vol] 139 mmol/L 133-145 [facility] Troponin T HS 2 HRon 025 Trop T High Sen 160 ng/L Invalid Interpretation Code <=14 [facility] Comment on above: Result Comment: Crit ical Result(s) Called MMARTIN at:2003 by: ALYX??Results read back by same. Performed By: #### L 499.0042 ####[facility] [address] [place], [place], [address] Troponin T.cardiac [Mass/vol ume] in Serum or Plasma by High sensitivity methodOrdered By: John Catherine on 02-22-2025 Troponin T.cardiac High sensitivity method [Mass/Vol] 164 ng/L High <14 [facility] Comment on above: Critical Result(s) C alled at: 0008 by: MISHEL CASANOVA [employer]. Results read back by same. Troponin T.cardiac High sensitivity method [Mass/Vol] 160 ng/L High <14 [facility] Comment on above: Critical Result(s) C alled MMARTIN at:2004 by: ALYX Results read back by same. Troponin T.cardiac High sensitivity method [Mass/Vol] 181 ng/L High <14 [facility] Comment on above: Critical Result(s) C alled MMARTIN at: 1905 by: ALYX Results read back by same. White blood cell (WBC) count Ordered By: John Catherine on 02-22-2025 WBC (Bld) [#/Vol] 7.8 10*3/uL Normal 4.4-11.0 [facility] Comment on above: Performed By: #### L 501.080 #### [facility] [address] [place], [place], [address] CNPTita 01-25-2025 CNPN Telephone ([facility]) LINA ISAAC ([id number]) 1965 F Date Time Provider Department 01/25/[address] [facility] During your visit today, we recorded the following information about you: Susana Garcia lindsay 01/25/2025 1:43 PM Signed BMP WNL since starting Jardiance and A1c showing improvement to 9.6% (from 10.4% on 12/30/24). Jardiance dose recently increased at recent pharmacy visit. Next PharmD f/up on 02/25/25 Susana Garcia, PharmD, BCACP Primary Care Clinical [employer] Allergies As of Date: 01/25/2025 Noted Allergy Reaction OMNICEF (CEFDINIR) 07/10/2019 9 - Itching Comments: Vaginitis severe PROVENTIL (ALBUTEROL SULFATE) 10/10/2006 11 - Vomiting Comments: Can not tolerate generic albuterol 08/22/12 - MEM. TRAMADOL 03/21/2005 4 - Hives Date Reviewed: 01/21/2025 Reviewed by: Susana Garcia RPh - Fully Assessed Reason for Visit: Results [95] Prescriptions as of 01/25/2025 - empagliflozin (JARDIANCE) 25 mg tablet Take 1 tablet by mouth daily with breakfast. - ibuprofen (MOTRIN) 800 mg tablet TAKE 1 TABLET BY MOUTH EVERY 8 HOURS NEEDED FOR PAIN WITH FOOD - lisinopril (ZESTRIL) 10 mg tablet Take 1 tablet by mouth once daily. - dulaglutide (TRULICITY) 4.5 mg/0.5 mL pen injector Inject 4.5 mg subcutaneously one time a week. - albuterol HFA (VENTOLIN HFA) 90 mcg/actuation inhaler Inhale 2 puffs as instructed every 4 hours as needed. For wheezing/shortness of breath. - insulin degludec (TRESIBA FLEXTOUCH U-200) 200 unit/mL (3 mL) injection Inject 112 Units subcutaneously daily at bedtime. - insulin aspart U-100 (NOVOLOG U-100 INSULIN ASPART) 100 unit/mL Inject 20 units subcutaneously as directed plus sliding scale with meals. (Max 96 units/day) - levalbuterol tartrate HFA (XOPENEX HFA) 45 mcg/actuation inhaler Inhale 1-2 Puffs as instructed every 4 hours as needed for wheezing/shortness of breath. - atorvastatin (LIPITOR) 40 mg tablet Take 1 tablet by mouth once daily. - ergocalciferol 50,000 unit capsule (VITAMIN D2, DRISDOL) Take 1 capsule by mouth one time a week. - mupirocin (BACTROBAN) 2 % ointment Apply to affected area every 12 hours as needed (rash, skin lesions). - flash glucose sensor (FREESTYLE MICHI 14 DAY SENSOR) kit Apply sensor to back of arm to check blood sugars as directed. Change sensor every 2 weeks and rotate arms. - aspirin, enteric coated (ASPIRIN, ENTERIC COATED) 81 mg EC tablet Take 1 tablet by mouth once daily. - famotidine (PEPCID) 20 mg tablet Take 1 tablet by mouth two times a day. - Blood-Glucose Sensor (FREESTYLE MICHI 3 PLUS SENSOR) ingrid Use to monitor glucose continuously and replace sensor every 15 days - metFORMIN (GLUCOPHAGE) 1,000 mg tablet Take 1 tablet by mouth two times a day. - cyanocobalamin (VITAMIN B-12) 1,000 mcg tab Take 2 tablets by mouth once daily. - Calcium Citrate-Vitamin D3 (CITRACAL+D) 315 mg-6.25 mcg (250 unit) tab Take 1 tablet by mouth once daily. - benzonatate (TESSALON PERLES) 100 mg capsule Take 1 capsule by mouth three times a day as needed for cough. - Oral Medication Containers (SHARPS CONTAINER) [facility] Use to collect sharps as directed. - flash glucose scanning reader (FREESTYLE MICHI 3 READER) Use to monitor blood glucose continuously - Insulin [place], Disposable, (UNIFINE PENTIPS) 31 gauge x 3/16 Use as directed 4 times daily with insulin - FLUoxetine (PROZAC) 20 mg capsule Take 1 capsule by mouth once daily. In the morning, for depression - gabapentin (NEURONTIN) 100 mg capsule Take 1-2 capsules by mouth daily at bedtime for 30 days. For foot pain - alcohol swabs (BD SINGLE USE SWABS REGULAR) Use as directed 4 to 5 times daily to check blood sugars and with insulin injections - diclofenac (VOLTAREN ARTHRITIS PAIN) 1 % topical gel Apply 2 g to affected area four times daily. - glucagon (BAQSIMI) 3 mg/actuation nasal spray Use 1 [place] in the nose as needed for low blood sugar. May repeat after 15 minutes using a new device if there is no response. - polyethylene glycol 3350 (MIRALAX) 17 gram/dose powder 1 capful daily in the morning - blood sugar diagnostic (FREESTYLE PRECISION JEREMIAS STRIPS) test strip Use to test blood sugar up to twice daily as instructed. Dx: insulin-dependent DM Meds Comments as of 08/13/2013: Problem List As Of Date 01/25/2025 Noted Resolved Tobacco use disorder [F17.200] 06/24/2012 Peripheral neuropathy [G62.9] Spasm of muscle [M62.838] 08/11/2015 Other Specified Disorder of Skin [L98.8] 02/18/2006 06/24/2012 Primary Localized Osteoarthrosis, Lower Leg [M1*03/21/2006 08/11/2015 Corns and callosities [L84] 10/14/2006 08/11/2015 Pain in Soft Tissues of Limb [M79.609] 10/14/2006 Contusion of foot [S90.30XA] 02/18/2007 06/24/2012 Localized osteoarthrosis not specified whether *05/13/2007 08/11/2015 Reaction, situatio (more content not included)... Normal [facility] Basic metabolic 2000 panelon 01-21-2025 Anion gap [Moles/Vol] 13 mmol/L Normal 8-15 [facility] Comment on above: Order Comment: Speci men Type: BLOOD SPECIMENOrdering Facility: [facility] Address: [address] [place] [address] Performed By: #### 2 4321-2 ####[facility] LABCLIA [id number] [place] [address] [place] Calcium [Mass/Vol] 9.7 mg/dL Normal 8.5-10.2 [facility] Comment on above: Order Comment: Speci men Type: BLOOD SPECIMENOrdering Facility: [facility] Address: [address] [id number] Performed By: #### 2 4321-2 ####[facility] LABCLIA [id number] [place] [address] [place] Chloride [Moles/Vol] 103 mmol/L Normal 98-107 [facility] Comment on above: Order Comment: Speci men Type: BLOOD SPECIMENOrdering Facility: [facility] Address: [address] [place], [place] [address] Performed By: #### 2 4321-2 ####[facility] LABCLIA [id number] [place] [id number] [place] CO2 [Moles/Vol] 22 mmol/L Normal 22-30 [facility] Comment on above: Order Comment: Speci men Type: BLOOD SPECIMENOrdering Facility: [facility] Address: [address] [place] [address] Performed By: #### 2 4321-2 ####[facility] LABIA [id number] [place] [address] [place] Creatinine [Mass/Vol] 0.44 mg/dL Low 0.58-0.96 [facility] Comment on above: Order Comment: Speci men Type: BLOOD SPECIMENOrdering Facility: [facility] Address: [address] [place] [address] Performed By: #### 2 4321-2 ####[facility] LABIA [id number] [place] [address] [place] Creatinine and Glomerular filtration rate.predicted panel (S/P/Bld) 111 mL/min/1.73m??? Normal >=60 [facility] Comment on above: Order Comment: Speci men Type: BLOOD SPECIMENOrdering Facility: [facility] Address: [address] [place] [address] Result Comment: [place] mated Glomerular Filtration Rate (eGFR) is calculated using the 2020 CKD-EPI creatinine equation. This equation utilizes serum creatinine, sex, and age as parameters. The creatinine assay has traceable calibration to isotope dilution-mass spectrometry. Refer to KDIGO guidelines for clinical interpretation. In patients with unstable renal function, e.g. those with acute kidney injury, the eGFR may not accurately reflect actual GFR. Performed By: #### 2 4321-2 ####[facility] LABCLIA [id number] [place] [id number] [place] Glucose [Mass/Vol] 235 mg/dL High 74-99 [facility] Comment on above: Order Comment: Yuliet angulo Type: BLOOD SPECIMENOrdering Facility: [facility] Address: [address] [place] [address] Result Comment: The [place] Diabetes Association (ADA) provides guidance for cutoff values for fasting glucose and random glucose. The ADA defines fasting as no caloric intake for at least 8 hours. Fasting plasma glucose results between 100 to 125 mg/dL indicate increased risk for diabetes (prediabetes). Fasting plasma glucose results greater than or equal to 126 mg/dL meet the criteria for diagnosis of diabetes. In the absence of unequivocal hyperglycemia, results should be confirmed by repeat testing. In a patient with classic symptoms of hyperglycemia or hyperglycemic crisis, random plasma glucose results greater than or equal to 200 mg/dL meet the criteria for diagnosis of diabetes. Reference: Standards of Medical Care in Diabetes 2016, [place] Diabetes Association. Diabetes Care. 2016.39(Suppl 1). Performed By: #### 2 4321-2 ####[facility] LABCLIA [id number] [place] [address] [place] Potassium [Moles/Vol] 3.9 mmol/L Normal 3.7-5.1 [facility] Comment on above: Order Comment: Yuliet angulo Type: BLOOD SPECIMENOrdering Facility: [facility] Address: [address] [place] [address] Performed By: #### 2 4321-2 ####[facility] LABCLIA [id number] [place] [id number] [place] Sodium [Moles/Vol] 138 mmol/L Normal 136-144 [facility] Comment on above: Order Comment: Yuliet angulo Type: BLOOD SPECIMENOrdering Facility: [facility] Address: [address] [place], [place] [id number] Performed By: #### 2 4321-2 ####[facility] LABCLIA [id number] [address] [address] [place] Urea nitrogen [Mass/Vol] 10 mg/dL Normal 7-21 [facility] Comment on above: Order Comment: Speci men Type: BLOOD SPECIMENOrdering Facility: [facility] Address: [address] [place] [address] Performed By: #### 2 4321-2 ####[facility] LABCLIA [id number] STIVEN ANDERSEN [address] OF [facility] CNOVon 01-21-2025 CNOV Office Visit (PHMEWO) ILNA ISAAC ([id number]) 1965 F Date Time Provider Department 01/21/25 3:00 PM SUSANA GARCIA [facility] During your visit today, we recorded the following information about you: Susana Garcia RPh 01/21/2025 3:04 PM Signed Primary Care Pharmacy Visit CC (Reason for Consult): (E11.65) Uncontrolled type 2 diabetes mellitus with hyperglycemia (HCC) (primary encounter diagnosis) Goal(s): A1c <7% Last Collaborating Provider Visit: 12/30/[address] Norm Del Angel Poncho is a 59 year old female presenting for follow up visit in person. Patient consents to pharmacy collaborative practice agreement. 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 Requesting to recheck A1c more frequently considering CGM report shows better A1c compared to last lab value Brief discussion of potential to try Mounjaro in place of Trulicity; however, pt prefers to adjust Jardiance first today Current DM Medications: Metformin 1000 mg twice daily Trulicity 4.5 mg once weekly on Sundays Jardiance 10 mg once daily Tresiba to 112 units once daily Novolog 20 units plus sliding scale before meals 150-200 = add 2 units 200-250 = add 4 units 250-300 = add 6 units 301-350 = add 8 units >350 = add 12 units Previously Trialed DM Meds: Ozempic - GI side effects GLYCEMIC CONTROL: Glucometer present at visit: Yes Hypoglycemia: No CGM Data Past medical history reviewed. ALLERGIES Allergen Reactions Omnicef [Cefdinir] Itching Vaginitis severe Proventil [Albutero* Vomiting Can not tolerate generic albuterol 08/22/12 - [place]. Tramadol Hives Current Outpatient Medications Medication Sig Dispense Refill ibuprofen (MOTRIN) 800 mg tablet TAKE 1 TABLET BY MOUTH EVERY 8 HOURS NEEDED FOR PAIN WITH FOOD 60 tablet 1 lisinopril (ZESTRIL) 10 mg tablet Take 1 tablet by mouth once daily. 90 tablet 11 empagliflozin (JARDIANCE) 10 mg tablet Take 1 tablet by mouth daily with breakfast. 30 tablet 2 dulaglutide (TRULICITY) 4.5 mg/0.5 mL pen injector Inject 4.5 mg subcutaneously one time a week. 6 mL 4 albuterol HFA (VENTOLIN HFA) 90 mcg/actuation inhaler Inhale 2 puffs as instructed every 4 hours as needed. For wheezing/shortness of breath. 18 g 3 insulin degludec (TRESIBA FLEXTOUCH U-200) 200 unit/mL (3 mL) injection Inject 112 Units subcutaneously daily at bedtime. 18 mL 11 insulin aspart U-100 (NOVOLOG U-100 INSULIN ASPART) 100 unit/mL Inject 20 units subcutaneously as directed plus sliding scale with meals. (Max 96 units/day) 30 mL 11 levalbuterol tartrate HFA (XOPENEX HFA) 45 mcg/actuation inhaler Inhale 1-2 Puffs as instructed every 4 hours as needed for wheezing/shortness of breath. 1 Each 1 atorvastatin (LIPITOR) 40 mg tablet Take 1 tablet by mouth once daily. 90 tablet 3 ergocalciferol 50,000 unit capsule (VITAMIN D2, DRISDOL) Take 1 capsule by mouth one time a week. 12 capsule 3 mupirocin (BACTROBAN) 2 % ointment Apply to affected area every 12 hours as needed (rash, skin lesions). 66 g 2 flash glucose sensor (FREESTYLE MICHI 14 DAY SENSOR) kit Apply sensor to back of arm to check blood sugars as directed. Change sensor every 2 weeks and rotate arms. 6 Each 3 aspirin, enteric coated (ASPIRIN, ENTERIC COATED) 81 mg EC tablet Take 1 tablet by mouth once daily. 90 tablet 3 famotidine (PEPCID) 20 mg tablet Take 1 tablet by mouth two times a day. 180 tablet 3 Blood-Glucose Sensor (FREESTYLE MICHI 3 PLUS SENSOR) ingrid Use to monitor glucose continuously and replace sensor every 15 days 6 Each 3 metFORMIN (GLUCOPHAGE) 1,000 mg tablet Take 1 tablet by mouth two times a day. 180 tablet 3 cyanocobalamin (VITAMIN B-12) 1,000 mcg tab Take 2 tablets by mouth once daily. 180 tablet 1 Calcium Citrate-Vitamin D3 (CITRACAL+D) 315 mg-6.25 mcg (250 unit) tab Take 1 tablet by mouth once daily. 30 tablet 3 benzonatate (TESSALON PERLES) 100 mg capsule Take 1 capsule by mouth three times a day as needed for cough. 30 capsule 1 Oral Medication Containers (SHARPS CONTAINER) [facility] Use to collect sharps as directed. 1 Each 0 flash glucose scanning reader (FREESTYLE MICHI 3 READER) Use to monitor blood glucose continuously 1 Each 0 Insulin [place], Disposable, (UNIFINE PENTIPS) 31 gauge x 3/16 Use as directed 4 times daily with insulin 400 Each 3 FLUoxetine (PROZAC) 20 mg capsule Take 1 capsule by mouth once daily. In the morning, for depression 90 capsule 1 gabapentin (NEURONTIN) 100 mg capsule Take 1 (more content not included)... Normal [facility] HbA1c (Bld)on 01-21-2025 Average glucose Estimated from glycated hemoglobin (Bld) [Mass/Vol] 229 mg/dL [facility] Comment on above: eAG: (Estimated aver age glucose) is a calculated value from HgbA1c and is contact center representative of the average blood glucose level in the last 2-3 month period. HbA1c (Bld) [Mass fraction] 9.6 % High 4.3 - 5.6 % [facility] Comment on above: [place] Diabetes As sociation guidelines indicate that patients with HgbA1c in the range 5.7-6.4% are at increased risk for development of diabetes, and intervention by lifestyle modification may be beneficial. HgbA1c greater or equal to 6.5% is considered diagnostic of diabetes. Interpretation and review of laboratory results Abnormal [facility] Average glucose Estimated from glycated hemoglobin (Bld) [Mass/Vol] 229 mg/dL Normal [facility] Comment on above: Order Comment: Yuliet angulo Type: BLOOD SPECIMENOrdering Facility: [facility] Address: [address] [place] [address] Result Comment: eAG: (Estimated average glucose) is a calculated value from HgbA1c and is contact center representative of the average blood glucose level in the last 2-3 month period. Performed By: #### 5 5454-3 ####[facility] LABIA [id number] [place] [address] [place] HbA1c (Bld) [Mass fraction] 9.6 % High 4.3-5.6 [facility] Comment on above: Order Comment: Yuliet angulo Type: BLOOD SPECIMENOrdering Facility: [facility] Address: [address] [place] [address] Result Comment: [place] Diabetes Association guidelines indicate that patients with HgbA1c in the range 5.7-6.4% are at increased risk for development of diabetes, and intervention by lifestyle modification may be beneficial. HgbA1c greater or equal to 6.5% is considered diagnostic of diabetes. Performed By: #### 5 5454-3 ####[facility] LABIA [id number] [address] [place] CNOVon 12-30-2024 CNOV Office Visit (FAMPWS) LINA ISAAC ([id number]) 1965 F Date Time Provider Department 12/30/24 2:40 PM ZHENGJESE CALIX During your visit today, we recorded the following information about you: Temperature Pulse Respiration Blood pressure 96.8 degrees 80/minute 16/minute 120/70 Weight 93 kg Jese Zheng, 12/30/2024 3:33 PM Signed Patient presents with: F/U 3 Month HPI: Lina Isaac is a 59 year old female who presents to the office today for review of health conditions. Concerns today: Need for tdap vaccine, willing to have this done Trigger finger, right hand, has been seen by Orthopedics. Pain is getting worse, using ibuprofen and icing and heating the hand to try to help it. Surgeon needs A1c 9% or lower to do surgery. She is struggling with severity of symptoms with pain at night- no longer getting benefit from ibuprofen or tylenol or use of ice or heating pad and topical Voltaren. She has taken [place] with relief when pain is severe. Right ear discomfort, coming and going the last few days, no fevers or drainage Ms. Isaac has past history of diabetes. Since our last visit she denies excessive thirst or increased frequency of urination, chest pain or dyspnea , new or unusual visual symptoms, and low sugar/hypoglycemic reactions. Depression- no. Follows a diabetic diet most of the time. She is compliant with medication(s) and is tolerating med(s) without any side effects. She reports checking her glucose on a CGM schedule with sugars in the <200 range. Patient's last HgA1C was Hemoglobin A1C (%) Date Value 07/20/2024 10.5 03/19/2024 9.1 08/14/2021 11.2 05/09/2021 12.1 Hemoglobin A1C (POCT) (%) Date Value 09/23/2024 11.2 11/27/2023 9.3 ) Last Ophthalmology exam was within the past 12 months Ms. Isaac reports history of hyperlipidemia. Current therapy includes atorvastatin (Lipitor) 40 mg. Denies side effects of muscle weakness or achiness. Her most recent lipid panels are reviewed. Cholesterol, Total (mg/dL) Date Value 03/19/2024 172 05/09/2021 205 HDL Cholesterol (mg/dL) Date Value 03/19/2024 40 05/09/2021 54 LDL Cholesterol, Calculated (mg/dL) Date Value 03/19/2024 102 05/09/2021 127 LDL Cholesterol Calculated, Nonfasting (mg/dL) Date Value 02/19/2023 152 Triglyceride (mg/dL) Date Value 03/19/2024 150 05/09/2021 120 Ms. Isaac indicates a history of hypertension and states that she is feeling well and denies any symptoms referable to elevated blood pressure. Specifically denies headache, chest pain, palpitations, dyspnea, and peripheral edema. Patient denies any side effects of her medication(s) and is compliant with their regimen. Last 3 Encounter BP Readings: Date: BP: 12/30/2024 120/70 12/10/2024 120/70 09/23/2024 134/64 She watches her diet for sodium, low fat and low cholesterol some of the time. She does not check BP's generally. Lina gets sporadic irregular exercise. PAST MEDICAL HISTORY Diagnosis Date Asthma (HCC) Bowel perforation 11/05/2012 C. difficile colitis 04/2016 Closed nondisplaced fracture of proximal phalanx of lesser toe of left foot with routine healing 10/07/2019 COVID-19 03/30/2021 Diabetes mellitus type 2 in obese 10/2013 A1C 6.8% Dyslipidemia 01/02/2019 Essential hypertension 08/11/2015 GERD (gastroesophageal reflux disease) Incisional hernia 06/26/2013 Injury to rectosigmoid colon 10/17/2012 Low HDL (under 40) 10/2013 Nephrolithiasis Osteoarthrosis, unspecified whether generalized or localized, other specified sites Osteoarthritis Bilateral knees Spasm of muscle Tobacco use disorder quit 2012 Unspecified hereditary and idiopathic peripheral neuropathy 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 Ramirez COLONOSCOPY 09/17/2022 repeat in 10 years EGD 09/17/2022 HERNIA REPAIR HX 06/22/2013 HYSTERECTOMY HX 2011 fistula with intestine HYSTEROSCOPY, DIAGNOSTIC (SEPARATE Hysteroscopy/Novasur e LAP HYSTERECTOMY FOR UTERUS 250G OR LESS 10/09/2012 with vaginal sling, LSO, right salpingectomy LAPS ABD PRTMANDOMENTUM DX W/WO SPEC BR/WA SPX Laparoscopy LAPS REPAIR HERNIA EXCEPT INCAL/INGUN REDUCIBLE 05/2017 LIG/TRNSXJ FLP TUBE ABDL/VAG APPR UNI/BI 2002 Tubal ligation PAST SURGICAL HISTORY OF 01/30/2005 Left shoulder arthroscopy and debridement PAST SURGICAL HISTORY OF 02/2004 3rd toe left foot PAST SURGICAL HISTORY OF 03/14/2010 right total knee replacement PAST SURGICAL HISTORY OF 03/14/2009 left total knee replacement PAST SURGICAL HISTORY OF 01/23/2013 Ileostomy closure. PAST SURGICAL HISTORY OF Left 01/06/2016 left ring trigger release RPR 1ST INCAL (more content not included)... Normal [facility] HEMOGLOBIN A1C (POC)on 12-30 HbA1c (Bld) [Mass fraction] 10.4 % Abnormal 4.3 - 5.6 % [facility] Comment on above: Location:[address], [place], [address] Point of care (POC) Hemoglobin A1c (HGBA1C) testing is intended to assess glucose control and provide a management tool for patients known to have diabetes and their healthcare providers. Target HGBA1C levels may depend on specific clinical circumstances. POC HGBA1C is not intended for use as a diagnostic or screening test; laboratory-based testing should be used for diagnostic purposes. The following information is supplemental and may not be applicable to specific diabetes management situations: The POC device hr payroll coordinator provides a normal range of 4.2% to 6.5% for the HGBA1C POC test. However, the [place] Diabetes Association guidelines indicate that patients with HGBA1C in the range of 5.7% to 6.4% are at increased risk for development of diabetes and that intervention by lifestyle modification may be beneficial. A HGBA1C level greater than or equal to 6.5% is considered diagnostic of diabetes, pending confirmatory testing. Use of HGBA1C testing to evaluate glucose control may not be appropriate for patients with hemoglobin variants or other conditions (e.g. anemia) that alter red blood cell lifespan. Interpretation and review of laboratory results Abnormal [facility] US DVT LOWER LTon 12-11-2024 US DVT LOWER LT * * *Final Report* * * DATE OF EXAM: Dec 11 2024 8:16AM WRU [id number] - US DVT LOWER LT / PROCEDURE REASON: multiple diagnoses * * * * Physician Interpretation * * * * EXAMINATION: LEFT LOWER EXTREMITY DEEP VENOUS ULTRASOUND WITH DOPPLER IMAGING CLINICAL HISTORY: Lower extremity swelling TECHNIQUE: Grayscale with compression maneuvers, color Doppler and spectral Doppler imaging of the left proximal deep veins was performed. Grayscale with compression maneuvers of the peroneal and posterior tibial veins was performed. The left great and small saphenous veins were evaluated at their insertion to the deep system. The contralateral common femoral vein was imaged for comparison. Images were obtained and stored in a permanent archive. MQ: [id number] COMPARISON: None RESULT: LEFT LOWER EXTREMITY PROXIMAL DEEP VEINS Distal External Iliac, Common Femoral and proximal Profunda Veins: Compression: Normal Doppler: Normal, spontaneous respirophasic flow. Normal response to augmentation. Femoral vein: Compression: Normal Doppler: Normal, spontaneous flow. Normal response to augmentation. Popliteal vein: Compression: Normal Doppler: Normal, spontaneous flow. Normal response to augmentation. CALF DEEP VEINS Peroneal veins: Normal compression. Posterior tibial veins: Normal compression. Gastrocnemius and Soleal veins: Not imaged. SUPERFICIAL VEINS Great saphenous: Patent and compressible at insertion into common femoral vein; not otherwise assessed. Small Saphenous: Patent and compressible in the proximal calf, not otherwise assessed. RIGHT LOWER EXTREMITY (FOR COMPARISON) Common Femoral Vein: Compression: Normal Doppler: Normal, spontaneous respirophasic flow. Normal response to augmentation. IMPRESSION: Negative study for proximal DVT in the left lower extremity. Negative study for calf DVT in the left lower extremity. Negative study for superficial thrombophlebitis in the imaged segments of the left lower extremity. Fur Trimmer: SANTOSH Transcribe Date/Time: Dec 13 2024 9:12A Dictated by : TAMARA PORTILLO MD This examination was interpreted and the report reviewed and electronically signed by: TAMARA PORTILLO MD on Dec 13 2024 9:12AM EST [id number] CN Normal [facility] CNOVon 12-10-2024 CNOV Office Visit (FAMPWS) LINA ISAAC ([id number]) 1965 F Date Time Provider Department 12/10/24 2:20 PM NATALI KLEIN During your visit today, we recorded the following information about you: Pulse Respiration Blood pressure Weight 90/minute 12/minute 120/70 94.5 kg Natali Klein APRN.PROFESSOR OF PHYSICS 12/10/2024 2:46 PM Signed Get your ultasound left lower leg scheduled to rule out DVT Follow up with Dr Zheng 12/30 about your right hand contracture worsening and and if the swelling continues in ankles. Natali Klein APRN.CNP 12/10/2024 3:05 PM Signed This is a 59 year old female who presents today with: Lina is a 59-year-old female with a history of diabetes, presenting for evaluation of bilateral ankle edema. HISTORY OF PRESENT ILLNESS: Bilateral Ankle Edema: - Persistent edema in bilateral ankles, more pronounced on the left side, x1 week. - Edema does not resolve with elevation or rest. - Describes edema as a big, giant ring, like a donut, all the way around. - Left leg is more tender and swollen; right leg has minimal swelling. - Denies known trauma or injury. - No known history of HTN- questioned why she's on blood pressure meds, explained kidney protectant with her diabetes - Current medications include Jardiance and Lisinopril, jardiance is new prescribed by the pharmacist she is consulting with on diabetes management - History of blood clots per patient, unable to coorelate with prior diagnostics PAST MEDICAL HISTORY: PAST MEDICAL HISTORY Diagnosis Date Asthma (HCC) Bowel perforation 11/05/2012 C. difficile colitis 04/2016 Closed nondisplaced fracture of proximal phalanx of lesser toe of left foot with routine healing 10/07/2019 COVID-19 03/30/2021 Diabetes mellitus type 2 in obese 10/2013 A1C 6.8% Dyslipidemia 01/02/2019 Essential hypertension 08/11/2015 GERD (gastroesophageal reflux disease) Incisional hernia 06/26/2013 Injury to rectosigmoid colon 10/17/2012 Low HDL (under 40) 10/2013 Nephrolithiasis Osteoarthrosis, unspecified whether generalized or localized, other specified sites Osteoarthritis Bilateral knees Spasm of muscle Tobacco use disorder quit 2012 Unspecified hereditary and idiopathic peripheral neuropathy 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 Ramirez COLONOSCOPY 09/17/2022 repeat in 10 years EGD 09/17/2022 HERNIA REPAIR HX 06/22/2013 HYSTERECTOMY HX 2011 fistula with intestine HYSTEROSCOPY, DIAGNOSTIC (SEPARATE Hysteroscopy/Novasur e LAP HYSTERECTOMY FOR UTERUS 250G OR LESS 10/09/2012 with vaginal sling, LSO, right salpingectomy LAPS ABD PRTMANDOMENTUM DX W/WO SPEC BR/WA SPX Laparoscopy LAPS REPAIR HERNIA EXCEPT INCAL/INGUN REDUCIBLE 05/2017 LIG/TRNSXJ FLP TUBE ABDL/VAG APPR UNI/BI 2001 Tubal ligation PAST SURGICAL HISTORY OF 01/30/2005 Left shoulder arthroscopy and debridement PAST SURGICAL HISTORY OF 02/2004 3rd toe left foot PAST SURGICAL HISTORY OF 03/14/2010 right total knee replacement PAST SURGICAL HISTORY OF 03/14/2009 left total knee replacement PAST SURGICAL HISTORY OF 01/23/2013 Ileostomy closure. PAST SURGICAL HISTORY OF Left 01/06/2016 left ring trigger release RPR 1ST INCAL/VNT HERNIA INCARCERATED 06/22/2013 at ileostomy site - 11x[address] mesh RPR RECRT INCAL/VNT HERNIA INCARCERATED 07/23/2014 at midline' RPR RECRT INCAL/VNT HERNIA INCARCERATED 10/11/2014 - recurrent small bowel resection, enterotomy ALLERGIES Omnicef [Cefdinir], Proventil [Albuterol Sulfate], and Tramadol MEDICATIONS Current Outpatient Medications Medication Sig lisinopril (ZESTRIL) 10 mg tablet Take 1 tablet by mouth once daily. empagliflozin (JARDIANCE) 10 mg tablet Take 1 tablet by mouth daily with breakfast. dulaglutide (TRULICITY) 4.5 mg/0.5 mL pen injector Inject 4.5 mg subcutaneously one time a week. albuterol HFA (VENTOLIN HFA) 90 mcg/actuation inhaler Inhale 2 puffs as instructed every 4 hours as needed. For wheezing/shortness of breath. ibuprofen (MOTRIN) 800 mg tablet TAKE 1 TABLET BY MOUTH EVERY 8 HOURS NEEDED FOR PAIN WITH FOOD insulin degludec (TRESIBA FLEXTOUCH U-200) 200 unit/mL (3 mL) injection Inject 112 Units subcutaneously daily at bedtime. insulin aspart U-100 (NOVOLOG U-100 INSULIN ASPART) 100 unit/mL Inject 20 units subcutaneously as directed plus sliding scale with meals. (Max 96 units/day) levalbuterol tartrate HFA (XOPENEX HFA) 45 mcg/actuation inhaler Inhale 1-2 Puffs as instructed every 4 hours as needed for wheezing/shortness of breath. atorvastatin (LIPITOR) 40 mg tablet Take 1 tablet by mouth once daily. ergocalciferol 50,000 unit capsule (VITAMIN D2, DRISDOL) Aditya (more content not included)... Normal [facility] CNOVon 11-26-2024 CNOV Office Visit (MEWO) LINA ISAAC ([id number]) 1965 F Date Time Provider Department 11/26/24 2:30 PM SUSANA GARCIA [facility] During your visit today, we recorded the following information about you: Susana Garcia RPh 11/26/2024 3:22 PM Signed Primary Care Pharmacy Visit CC (Reason for Consult): (E11.65) Uncontrolled type 2 diabetes mellitus with hyperglycemia (HCC) (primary encounter diagnosis) Goal(s): A1c <7% Last Collaborating Provider Visit: 07/23/[address] Norm Muiryd is a 59 year old female presenting for follow up visit in person. Patient consents to pharmacy collaborative practice agreement. Last Pharmacy Visit: 10/29/24 - Tresiba increased to 112 units daily, Novolog increased to 20 units + sliding scale HPI: Reports doing well States she got set up with new insurance, that is a lot cheaper now than it was before. Has Sean insurance, just a new plan that is a diabetic plan Insulin will be only $15 now which is a lot of cheaper than before Had some extra supply of insulin, thinks some of it was so got rid of that and started new insulins and made sure it was in date and seems to be working better States BGs have been improving Is open to retry starting Jardiance now that new insurance is active (never started previously d/t cost while off insurance) Current DM Medications: Metformin 1000 mg twice daily Trulicity 4.5 mg once weekly on Sundays Tresiba to 112 units once daily Novolog 20 units plus sliding scale before meals 150-200 = add 2 units 200-250 = add 4 units 250-300 = add 6 units 301-350 = add 8 units >350 = add 12 units Previously Trialed DM Meds: Ozempic - GI side effects Jardiance - cost Diet Denies any recent changes GLYCEMIC CONTROL: Glucometer present at visit: Yes Hypoglycemia: No CGM Data Past medical history reviewed. ALLERGIES Allergen Reactions Omnicef [Cefdinir] Itching Vaginitis severe Proventil [Albutero* Vomiting Can not tolerate generic albuterol 08/22/12 - MEM. Tramadol Hives Current Outpatient Medications Medication Sig Dispense Refill albuterol HFA (VENTOLIN HFA) 90 mcg/actuation inhaler Inhale 2 puffs as instructed every 4 hours as needed. For wheezing/shortness of breath. 18 g 3 ibuprofen (MOTRIN) 800 mg tablet TAKE 1 TABLET BY MOUTH EVERY 8 HOURS NEEDED FOR PAIN WITH FOOD 60 tablet 1 insulin degludec (TRESIBA FLEXTOUCH U-200) 200 unit/mL (3 mL) injection Inject 112 Units subcutaneously daily at bedtime. 18 mL 11 insulin aspart U-100 (NOVOLOG U-100 INSULIN ASPART) 100 unit/mL Inject 20 units subcutaneously as directed plus sliding scale with meals. (Max 96 units/day) 30 mL 11 levalbuterol tartrate HFA (XOPENEX HFA) 45 mcg/actuation inhaler Inhale 1-2 Puffs as instructed every 4 hours as needed for wheezing/shortness of breath. 1 Each 1 dulaglutide (TRULICITY) 4.5 mg/0.5 mL pen injector Inject 4.5 mg subcutaneously one time a week. 6 mL 4 atorvastatin (LIPITOR) 40 mg tablet Take 1 tablet by mouth once daily. 90 tablet 3 ergocalciferol 50,000 unit capsule (VITAMIN D2, DRISDOL) Take 1 capsule by mouth one time a week. 12 capsule 3 mupirocin (BACTROBAN) 2 % ointment Apply to affected area every 12 hours as needed (rash, skin lesions). 66 g 2 flash glucose sensor (FREESTYLE MICHI 14 DAY SENSOR) kit Apply sensor to back of arm to check blood sugars as directed. Change sensor every 2 weeks and rotate arms. 6 Each 3 aspirin, enteric coated (ASPIRIN, ENTERIC COATED) 81 mg EC tablet Take 1 tablet by mouth once daily. 90 tablet 3 famotidine (PEPCID) 20 mg tablet Take 1 tablet by mouth two times a day. 180 tablet 3 Blood-Glucose Sensor (FREESTYLE MICHI 3 PLUS SENSOR) ingrid Use to monitor glucose continuously and replace sensor every 15 days 6 Each 3 metFORMIN (GLUCOPHAGE) 1,000 mg tablet Take 1 tablet by mouth two times a day. 180 tablet 3 cyanocobalamin (VITAMIN B-12) 1,000 mcg tab Take 2 tablets by mouth once daily. 180 tablet 1 lisinopril (ZESTRIL) 10 mg tablet Take 1 tablet by mouth once daily. 90 tablet 3 Calcium Citrate-Vitamin D3 (CITRACAL+D) 315 mg-6.25 mcg (250 unit) tab Take 1 tablet by mouth once daily. 30 tablet 3 benzonatate (TESSALON PERLES) 100 mg capsule Take 1 capsule by mouth three times a day as needed for cough. 30 capsule 1 Oral Medication Containers (SHARPS CONTAINER[place] [facility] [place] as directed. 1 Each 0 flash glucose scanning reader (FREESTYLE MICHI 3 READER) Use to monitor blood glucose continuously 1 Each 0 Insulin [place], Disposable, (UNIFINE PENTIPS) 31 gauge x 3/16 Use as directed 4 times daily with insulin 400 Each 3 FLUoxetine (PROZAC) 20 mg capsule Take 1 capsule by mouth once daily. In the morning, for depression 90 capsule 1 gabapentin (NEURONTIN) 100 mg capsule Take 1-2 capsules by mouth daily at bedtime for 30 (more content not included)... Normal [facility] CNOVon 10-29-2024 CNOV Office Visit (PHMEWO) LINA ISAAC ([id number]) 1965 F Date Time Provider Department 10/29/24 2:30 PM SUSANA GARCIA During your visit today, we recorded the following information about you: Susana Garcia [facility] 10/29/2024 3:09 PM Signed Primary Care Pharmacy Visit CC (Reason for Consult): (E11.65) Uncontrolled type 2 diabetes mellitus with hyperglycemia (HCC) (primary encounter diagnosis) Goal(s): A1c <7% Last Collaborating Provider Visit: 07/23/[address] Norm Del Angel Poncho is a 59 year old female presenting for follow up visit in person. Patient consents to pharmacy collaborative practice agreement. Last Pharmacy Visit: 07/23/24 - Jardiance started, Novolog increased HPI: Reports doing okay Still having a lot of pain with her trigger finger, has not been able to have her surgery yet because of her BGs being uncontrolled States BGs have been higher lately Was not able to start Jardiance due to cost, was $600 for a month supply Last medications cost $1700 for all medicines and insulins, cannot afford to continue with this cost moving forward; getting Michi sensors for $75/month supply In the process of switching an affordable insurance since no longer has Sean out of nowhere Current DM Medications: Metformin 1000 mg twice daily Trulicity 4.5 mg once weekly on Sundays Jardiance 10 mg once daily - not taking (cost) Tresiba U200 120 units once daily every morning - taking 102 units once daily Novolog 18 units + sliding scale with meals - taking 20 units + sliding scale 200-230 = add 2 units 230-260 = add 4 units 260-300 = add 6 units >300 = add 8 units Previously Trialed DM Meds: Ozempic - GI side effects GLYCEMIC CONTROL: Glucometer present at visit: Yes Hypoglycemia: No CGM Data Past medical history reviewed. ALLERGIES Allergen Reactions Omnicef [Cefdinir] Itching Vaginitis severe Proventil [Albutero* Vomiting Can not tolerate generic albuterol 08/22/12 - MEM. Tramadol Hives Current Outpatient Medications Medication Sig Dispense Refill levalbuterol tartrate HFA (XOPENEX HFA) 45 mcg/actuation inhaler Inhale 1-2 Puffs as instructed every 4 hours as needed for wheezing/shortness of breath. 1 Each 1 ibuprofen (MOTRIN) 800 mg tablet TAKE 1 TABLET BY MOUTH EVERY 8 HOURS NEEDED FOR PAIN WITH FOOD 60 tablet 1 empagliflozin (JARDIANCE) 10 mg tablet Take 1 tablet by mouth daily with breakfast. 30 tablet 2 dulaglutide (TRULICITY) 4.5 mg/0.5 mL pen injector Inject 4.5 mg subcutaneously one time a week. 6 mL 4 insulin aspart U-100 (NOVOLOG U-100 INSULIN ASPART) 100 unit/mL Inject 18 units subcutaneously as directed plus sliding scale with meals. (Max 80 units/day) 30 mL 11 insulin degludec (TRESIBA FLEXTOUCH U-200) 200 unit/mL (3 mL) injection Inject 120 Units subcutaneously daily at bedtime. 27 mL 11 albuterol HFA (VENTOLIN HFA) 90 mcg/actuation inhaler Inhale 2 Puffs as instructed every 4 hours as needed. For wheezing/shortness of breath. 18 g 3 atorvastatin (LIPITOR) 40 mg tablet Take 1 tablet by mouth once daily. 90 tablet 3 ergocalciferol 50,000 unit capsule (VITAMIN D2, DRISDOL) Take 1 capsule by mouth one time a week. 12 capsule 3 mupirocin (BACTROBAN) 2 % ointment Apply to affected area every 12 hours as needed (rash, skin lesions). 66 g 2 flash glucose sensor (FREESTYLE IMCHI 14 DAY SENSOR) kit Apply sensor to back of arm to check blood sugars as directed. Change sensor every 2 weeks and rotate arms. 6 Each 3 aspirin, enteric coated (ASPIRIN, ENTERIC COATED) 81 mg EC tablet Take 1 tablet by mouth once daily. 90 tablet 3 famotidine (PEPCID) 20 mg tablet Take 1 tablet by mouth two times a day. 180 tablet 3 Blood-Glucose Sensor (FREESTYLE MICHI 3 PLUS SENSOR) ingrid Use to monitor glucose continuously and replace sensor every 15 days 6 Each 3 metFORMIN (GLUCOPHAGE) 1,000 mg tablet Take 1 tablet by mouth two times a day. 180 tablet 3 cyanocobalamin (VITAMIN B-12) 1,000 mcg tab Take 2 tablets by mouth once daily. 180 tablet 1 lisinopril (ZESTRIL) 10 mg tablet Take 1 tablet by mouth once daily. 90 tablet 3 Calcium Citrate-Vitamin D3 (CITRACAL+D) 315 mg-6.25 mcg (250 unit) tab Take 1 tablet by mouth once daily. 30 tablet 3 benzonatate (TESSALON PERLES) 100 mg capsule Take 1 capsule by mouth three times a day as needed for cough. 30 capsule 1 Oral Medication Containers (SHARPS CONTAINER) [facility] [place] to [place]ps as directed. 1 Each 0 flash glucose scanning reader (FREESTYLE MICHI 3 READER) Use to monitor blood glucose continuously 1 Each 0 Insulin [place], Disposable, (UNIFINE PENTIPS) 31 gauge x 3/16 Use as directed 4 times daily with insulin 400 Each 3 FLUoxetine (PROZAC) 20 mg capsule Take 1 capsule by mouth once daily. In the morning, for depression 90 capsule 1 gabapentin (NEURONTIN) 100 mg capsule Aditya (more content not included)... Normal [facility] CNOVon 09-23-2024 CNOV Office Visit (FAMPWS) PONCHOOTISYUEJOHNNY Del Angel ([id number]) 1965 F Date Time Provider Department 09/23/24 3:00 PM JESE ZHENG [facility] During your visit today, we recorded the following information about you: Temperature Pulse Respiration Blood pressure 97 degrees 88/minute 16/minute 134/64 Weight 93.4 kg Jese Zheng DO 09/23/2024 8:29 PM Signed Patient presents with: F/U 3 Month HPI: Lina Del Angel Poncho is a 58 year old female who presents to the office today for review of health conditions. Concerns today: Congestion in chest, some wheezing, no shortness of breath. Symptoms for 2 weeks, no fevers or chills. Struggling to get symptoms to improve Trigger finger, right hand, has been seen by Orthopedics. Pain is getting worse, using ibuprofen and icing and heating the hand to try to help it. Surgeon needs A1c 9% or lower to do surgery. She is struggling with severity of symptoms with pain at night- no longer getting benefit from ibuprofen or tylenol or use of ice or heating pad and topical Voltaren. Ms. Isaac has past history of diabetes. Since our last visit she denies excessive thirst or increased frequency of urination, chest pain or dyspnea , new or unusual visual symptoms, and low sugar/hypoglycemic reactions. Depression- no. Follows a diabetic diet some of the time. She is compliant with medication(s) and is tolerating med(s) without any side effects. She reports checking her glucose on a CGM schedule with sugars in the fasting 200-350s range. Patient's last HgA1C was Hemoglobin A1C (%) Date Value 07/20/2024 10.5 03/19/2024 9.1 08/14/2021 11.2 05/09/2021 12.1 Hemoglobin A1C (POCT) (%) Date Value 11/27/2023 9.3 05/27/2023 11.4 ) Last Ophthalmology exam was within the past 12 months Ms. Isaac reports history of hyperlipidemia. Current therapy includes atorvastatin (Lipitor) 40 mg. Denies side effects of muscle weakness or achiness. Her most recent lipid panels are reviewed. Cholesterol, Total (mg/dL) Date Value 03/19/2024 172 05/09/2021 205 HDL Cholesterol (mg/dL) Date Value 03/19/2024 40 05/09/2021 54 LDL Cholesterol (mg/dL) Date Value 03/19/2024 102 05/09/2021 127 LDL Cholesterol, Nonfasting (mg/dL) Date Value 02/19/2023 152 Triglyceride (mg/dL) Date Value 03/19/2024 150 05/09/2021 120 Ms. Isaac indicates a history of hypertension and states that she is feeling well and denies any symptoms referable to elevated blood pressure. Specifically denies headache, chest pain, palpitations, dyspnea, and peripheral edema. Patient denies any side effects of her medication(s) and is compliant with their regimen. Last 3 Encounter BP Readings: Date: BP: 09/23/2024 134/64 06/23/2024 138/80 03/17/2024 136/80 She watches her diet for sodium, low fat and low cholesterol some of the time. She does not check BP's generally. Lina gets minimal exercise. PAST MEDICAL HISTORY Diagnosis Date Asthma Bowel perforation 11/05/2012 C. difficile colitis 04/2016 Closed nondisplaced fracture of proximal phalanx of lesser toe of left foot with routine healing 10/07/2019 COVID-19 03/30/2021 Diabetes mellitus type 2 in obese 10/2013 A1C 6.8% Dyslipidemia 01/02/2019 Essential hypertension 08/11/2015 GERD (gastroesophageal reflux disease) Incisional hernia 06/26/2013 Injury to rectosigmoid colon 10/17/2012 Low HDL (under 40) 10/2013 Nephrolithiasis Osteoarthrosis, unspecified whether generalized or localized, other specified sites Osteoarthritis Bilateral knees Spasm of muscle Tobacco use disorder quit 2012 Unspecified hereditary and idiopathic peripheral neuropathy 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 Ramirez COLONOSCOPY 09/17/2022 repeat in 10 years EGD 09/17/2022 HERNIA REPAIR HX 06/22/2013 HYSTERECTOMY HX 2011 fistula with intestine HYSTEROSCOPY, DIAGNOSTIC (SEPARATE Hysteroscopy/Novasur e LAP HYSTERECTOMY FOR UTERUS 250G OR LESS 10/09/2012 with vaginal sling, LSO, right salpingectomy LAPS ABD PRTMANDOMENTUM DX W/WO SPEC BR/WA SPX Laparoscopy LAPS REPAIR HERNIA EXCEPT INCAL/INGUN REDUCIBLE 05/2017 LIG/TRNSXJ FLP TUBE ABDL/VAG APPR UNI/BI 2001 Tubal ligation PAST SURGICAL HISTORY OF 01/30/2005 Left shoulder arthroscopy and debridement PAST SURGICAL HISTORY OF 02/2004 3rd toe left foot PAST SURGICAL HISTORY OF 03/14/2010 right total knee replacement PAST SURGICAL HISTORY OF 03/14/2009 left total knee replacement PAST SURGICAL HISTORY OF 01/23/2013 Ileostomy closure. PAST SURGICAL HISTORY OF Left 01/06/2016 left ring trigger release RPR 1ST INCAL/VNT HERNIA INCARCERATED 06/22/2013 at ileostomy site - 11x14 ventrio S (more content not included)... Normal [facility] HEMOGLOBIN A1C (POC)on 09-23 HbA1c (Bld) [Mass fraction] 11.2 % Abnormal 4.3 - 5.6 % [facility] Comment on above: Location:[facility], [address] [place] [address], [place], [address] Point of care (POC) Hemoglobin A1c (HGBA1C) testing is intended to assess glucose control and provide a management tool for patients known to have diabetes and their healthcare providers. Target HGBA1C levels may depend on specific clinical circumstances. POC HGBA1C is not intended for use as a diagnostic or screening test; laboratory-based testing should be used for diagnostic purposes. The following information is supplemental and may not be applicable to specific diabetes management situations: The POC device hr payroll coordinator provides a normal range of 4.2% to 6.5% for the HGBA1C POC test. However, the [place] [employer] guidelines indicate that patients with HGBA1C in the range of 5.7% to 6.4% are at increased risk for development of diabetes and that intervention by lifestyle modification may be beneficial. A HGBA1C level greater than or equal to 6.5% is considered diagnostic of diabetes, pending confirmatory testing. Use of HGBA1C testing to evaluate glucose control may not be appropriate for patients with hemoglobin variants or other conditions (e.g. anemia) that alter red blood cell lifespan. Interpretation and review of laboratory results Abnormal [facility] CNOVon 07-23-2024 CNOV Office Visit (PHMEWO) LINA ISAAC ([id number]) 1965 F Date Time Provider Department 07/23/24 2:30 PM [facility] During your visit today, we recorded the following information about you: Susana Garcia RPh 07/23/2024 2:45 PM Signed Primary Care Pharmacy Visit CC (Reason for Consult): (E11.65) Uncontrolled type 2 diabetes mellitus with hyperglycemia (HCC) (primary encounter diagnosis) Goal(s): A1c <7% Last Collaborating Provider Visit: 06/23/[address] Norm Del Angel Poncho is a 58 year old female presenting for follow up visit in person. Patient consents to pharmacy collaborative practice agreement. Last Pharmacy Visit: 04/23/24 - Tresiba increased to 120 units daily Interim Events: - 07/20/24 A1c results: worsening from 9.1% to 10.5% HPI: Reports doing well States has had a lot of pain with trigger finger which has affected her sugars going up; this started back in May. States she saw orthopaedic who recommended surgery; however, needs to get A1c back down before they will do surgery States she got a letter recently about needing new approval for new year of insulins and Trulicity; has good supply of insulin and Trulicity still Current DM Medications: Metformin 1000 mg twice daily Trulicity 4.5 mg once weekly on Sundays Tresiba U200 120 units once daily every morning Novolog 16 units + sliding scale with meals 200-230 = add 2 units 230-260 = add 4 units 260-300 = add 6 units >300 = add 8 units Previously Trialed DM Meds: Ozempic - GI side effects Diet Denies any recent changes GLYCEMIC CONTROL: Glucometer present at visit: Yes Hypoglycemia: No CGM Data Past medical history reviewed. ALLERGIES Allergen Reactions Omnicef [Cefdinir] Itching Vaginitis severe Proventil [Albutero* Vomiting Can not tolerate generic albuterol 08/22/12 - MEM. Tramadol Hives Current Outpatient Medications Medication Sig Dispense Refill albuterol HFA (VENTOLIN HFA) 90 mcg/actuation inhaler Inhale 2 Puffs as instructed every 4 hours as needed. For wheezing/shortness of breath. 18 g 3 atorvastatin (LIPITOR) 40 mg tablet Take 1 tablet by mouth once daily. 90 tablet 3 ergocalciferol 50,000 unit capsule (VITAMIN D2, DRISDOL) Take 1 capsule by mouth one time a week. 12 capsule 3 ibuprofen (MOTRIN) 800 mg tablet TAKE 1 TABLET BY MOUTH EVERY 8 HOURS NEEDED FOR PAIN WITH FOOD 60 tablet 1 mupirocin (BACTROBAN) 2 % ointment Apply to affected area every 12 hours as needed (rash, skin lesions). 66 g 2 flash glucose sensor (FREESTYLE MICHI 14 DAY SENSOR) kit Apply sensor to back of arm to check blood sugars as directed. Change sensor every 2 weeks and rotate arms. 6 Each 3 aspirin, enteric coated (ASPIRIN, ENTERIC COATED) 81 mg EC tablet Take 1 tablet by mouth once daily. 90 tablet 3 famotidine (PEPCID) 20 mg tablet Take 1 tablet by mouth two times a day. 180 tablet 3 Blood-Glucose Sensor (FREESTYLE MICHI 3 PLUS SENSOR) ingrid Use to monitor glucose continuously and replace sensor every 15 days 6 Each 3 metFORMIN (GLUCOPHAGE) 1,000 mg tablet Take 1 tablet by mouth two times a day. 180 tablet 3 insulin degludec (TRESIBA FLEXTOUCH U-200) 200 unit/mL (3 mL) injection Inject 120 Units subcutaneously daily at bedtime. 27 mL 5 dulaglutide (TRULICITY) 4.5 mg/0.5 mL pen injector Inject 4.5 mg subcutaneously one time a week. 6 mL 4 cyanocobalamin (VITAMIN B-12) 1,000 mcg tab Take 2 tablets by mouth once daily. 180 tablet 1 lisinopril (ZESTRIL) 10 mg tablet Take 1 tablet by mouth once daily. 90 tablet 3 Calcium Citrate-Vitamin D3 (CITRACAL+D) 315 mg-6.25 mcg (250 unit) tab Take 1 tablet by mouth once daily. 30 tablet 3 benzonatate (TESSALON PERLES) 100 mg capsule Take 1 capsule by mouth three times a day as needed for cough. 30 capsule 1 Oral Medication Containers (SHARPS CONTAINER) [facility] [place] to [place] sharps as directed. 1 Each 0 flash glucose scanning reader (FREESTYLE MICHI 3 READER) Use to monitor blood glucose continuously 1 Each 0 insulin aspart U-100 (NOVOLOG U-100 INSULIN ASPART) 100 unit/mL Inject 16 units subcutaneously as directed plus sliding scale with meals. Insulin [place], Disposable, (UNIFINE PENTIPS) 31 gauge x 3/16 Use as directed 4 times daily with insulin 400 Each 3 FLUoxetine (PROZAC) 20 mg capsule Take 1 capsule by mouth once daily. In the morning, for depression 90 capsule 1 gabapentin (NEURONTIN) 100 mg capsule Take 1-2 capsules by mouth daily at bedtime for 30 days. For foot pain 60 capsule 5 alcohol swabs (BD SINGLE USE SWABS REGULAR) Use as directed 4 to 5 times daily to check blood sugars and with insulin injections 360 Each 3 diclofenac (VOLTAREN ARTHRITIS PAIN) 1 % topical gel Apply 2 g to affected area four times daily. 100 g 1 glucagon (BAQSIMI) 3 mg/actuation nasal spray Use 1 [place] in the nose as needed (more content not included)... Normal [facility] 07-21-2024 [facility] Telephone (ORTHWS) LINA ISAAC ([id number]) 1965 F Date Time Provider Department 07/21/24 JOHN BROWN During your visit today, we recorded the following information about you: Suellen Rojas MA 07/21/2024 9:13 AM Signed ----- Message from John Brown MD sent at 07/21/2024 8:54 AM EST ----- Patient is over 10. Surgery not advisable over 10 due to risk of surgical site infection. Once it is back to 9 or lower, we would consider. Suellen Rojas MA 07/21/2024 9:17 AM Signed Patient has been notified of message below and verbalized understanding. She already has an appointment scheduled with PCP office on 07/23/2024. Patient advised to contact office back to schedule once she meets the 9.0 or less requirement. Allergies As of Date: 07/21/2024 Noted Allergy Reaction OMNICEF (CEFDINIR) 07/10/2019 9 - Itching Comments: Vaginitis severe PROVENTIL (ALBUTEROL SULFATE) 10/10/2006 11 - Vomiting Comments: Can not tolerate generic albuterol 08/22/12 - MEM. TRAMADOL 03/21/2005 4 - Hives Date Reviewed: 07/20/2024 Reviewed by: Shanelle Mckee MA - Fully Assessed Reason for Visit: Results [95] Prescriptions as of 07/21/2024 - albuterol HFA (VENTOLIN HFA) 90 mcg/actuation inhaler Inhale 2 Puffs as instructed every 4 hours as needed. For wheezing/shortness of breath. - atorvastatin (LIPITOR) 40 mg tablet Take 1 tablet by mouth once daily. - ergocalciferol 50,000 unit capsule (VITAMIN D2, DRISDOL) Take 1 capsule by mouth one time a week. - ibuprofen (MOTRIN) 800 mg tablet TAKE 1 TABLET BY MOUTH EVERY 8 HOURS NEEDED FOR PAIN WITH FOOD - mupirocin (BACTROBAN) 2 % ointment Apply to affected area every 12 hours as needed (rash, skin lesions). - flash glucose sensor (FREESTYLE MICHI 14 DAY SENSOR) kit Apply sensor to back of arm to check blood sugars as directed. Change sensor every 2 weeks and rotate arms. - aspirin, enteric coated (ASPIRIN, ENTERIC COATED) 81 mg EC tablet Take 1 tablet by mouth once daily. - famotidine (PEPCID) 20 mg tablet Take 1 tablet by mouth two times a day. - Blood-Glucose Sensor (FREESTYLE MICHI 3 PLUS SENSOR) ingrid Use to monitor glucose continuously and replace sensor every 15 days - metFORMIN (GLUCOPHAGE) 1,000 mg tablet Take 1 tablet by mouth two times a day. - insulin degludec (TRESIBA FLEXTOUCH U-200) 200 unit/mL (3 mL) injection Inject 120 Units subcutaneously daily at bedtime. - dulaglutide (TRULICITY) 4.5 mg/0.5 mL pen injector Inject 4.5 mg subcutaneously one time a week. - cyanocobalamin (VITAMIN B-12) 1,000 mcg tab Take 2 tablets by mouth once daily. - lisinopril (ZESTRIL) 10 mg tablet Take 1 tablet by mouth once daily. - Calcium Citrate-Vitamin D3 (CITRACAL+D) 315 mg-6.25 mcg (250 unit) tab Take 1 tablet by mouth once daily. - benzonatate (TESSALON PERLES) 100 mg capsule Take 1 capsule by mouth three times a day as needed for cough. - Oral Medication Containers (SHARPS CONTAINER) [facility] [place] to collect sharps as directed. - flash glucose scanning reader (FREESTYLE MICHI 3 READER) Use to monitor blood glucose continuously - insulin aspart U-100 (NOVOLOG U-100 INSULIN ASPART) 100 unit/mL Inject 16 units subcutaneously as directed plus sliding scale with meals. - Insulin [place], Disposable, (UNIFINE PENTIPS) 31 gauge x 3/16 Use as directed 4 times daily with insulin - FLUoxetine (PROZAC) 20 mg capsule Take 1 capsule by mouth once daily. In the morning, for depression - gabapentin (NEURONTIN) 100 mg capsule Take 1-2 capsules by mouth daily at bedtime for 30 days. For foot pain - alcohol swabs (BD SINGLE USE SWABS REGULAR) Use as directed 4 to 5 times daily to check blood sugars and with insulin injections - diclofenac (VOLTAREN ARTHRITIS PAIN) 1 % topical gel Apply 2 g to affected area four times daily. - glucagon (BAQSIMI) 3 mg/actuation nasal spray Use 1 [place] in the nose as needed for low blood sugar. May repeat after 15 minutes using a new device if there is no response. - polyethylene glycol 3350 (MIRALAX) 17 gram/dose powder 1 capful daily in the morning - blood sugar diagnostic (FREESTYLE PRECISION JEREMIAS STRIPS) test strip Use to test blood sugar up to twice daily as instructed. Dx: insulin-dependent DM Meds Comments as of 08/13/2013: Problem List As Of Date 07/21/2024 Noted Resolved Tobacco use disorder [F17.200] 06/24/2012 Peripheral neuropathy [G62.9] Spasm of muscle [M62.838] 08/11/2015 Other Specified Disorder of Skin [L98.8] 02/18/2006 06/24/2012 Primary Localized Osteoarthrosis, Lower Leg [M1*03/21/2006 08/11/2015 Corns and callosities [L84] 10/14/2006 08/11/2015 Pain in Soft Tissues of Limb [M79.609] 10/14/2006 Contusion of foot [S90.30XA] 02/18/2007 06/24/2012 Localized osteoarthrosis not specified whether *05/13/2007 08/11/2015 Reaction, situational, acute, to stress [F43.0] 05/18/2010 (more content not included)... Normal [facility] FRUCTOSAMINE BLDon Fructosamine [Moles/Vol] 468 umol/L High 205 - 285 umol/L [facility] Fructosamine [Moles/Vol]on 1 Interpretation and review of laboratory results Abnormal [facility] HbA1c (Bld)on 07-21-2024 Average glucose Estimated from glycated hemoglobin (Bld) [Mass/Vol] 255 mg/dL [facility] Comment on above: eAG: (Estimated aver age glucose) is a calculated value from HgbA1c and is contact center representative of the average blood glucose level in the last 2-3 month period. HbA1c (Bld) [Mass fraction] 10.5 % High 4.3 - 5.6 % [facility] Comment on above: [place] Diabetes As sociation guidelines indicate that patients with HgbA1c in the range 5.7-6.4% are at increased risk for development of diabetes, and intervention by lifestyle modification may be beneficial. HgbA1c greater or equal to 6.5% is considered diagnostic of diabetes. Interpretation and review of laboratory results Abnormal [facility] CNOVon 07-20-2024 CNOV Office Visit (ORTHWS) LINA ISAAC ([id number]) 1965 F Date Time Provider Department 07/20/24 3:45 PM JOHN BROWN During your visit today, we recorded the following information about you: John Brown MD 08/02/2024 9:35 AM Signed John Brown MD Department of Orthopaedics Orthopaedics [address] [facility] [address] Dept: [phone] Dept July 20, 2025 CHIEF COMPLAINT: New of the Right Hand HPI Patient c/o R hand pain x1 mo. No known injury. Patient reports hand tight and locks when she makes fist. Trouble twisting, opening jars/doors, etc. PCP worked up for gout and pt was on abx with no relief. 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 Shanelle Mckee MA ASSESSMENT: E11.42 Type 2 diabetes mellitus with peripheral neuropathy (HCC) (primary encounter diagnosis) M79.641 Right hand pain PLAN: She has some serious flexor tendonitis, however, looks like she has uncontrolled DM and we have no update on her numbers. Prior to moving forward with surgical releases, I need a new HgA1C. For some reason, there was a warning that said she has an unusual hemoglobin and recommended a Fructosamine, so I'll just get both to get the best picture. FOLLOW UP INSTRUCTIONS: We'll await her labs. OBJECTIVE: Ms. Lina Isaac is a pleasant 58 year old in no apparent distress. Gen:LMP 08/30/2012 nl development, non obese, no deformities ENT: Normocephalic, normal hearing, moist mucosa CV: Pulses:Radial= 2+ and symmetric, capillary refill < 2 secs, no peripheral edema/varicosities Skin: no rash, bruising or lesions. Good turgor. Psych: cooperative and appropriate, alert and oriented x 3, good mood and affect. Musculoskeletal: Mild bilateral swelling, generalized. Some OA look as well. There is stiffness, tenderness over the A1 augustina and locking of the digits, in each hand. IMAGING: IMPRESSION: No acute osseous abnormality Fur Trimmer: [facility] Transcribe Date/Time: Jun 26 2024 12:23P Dictated by : MARTHA MCMULLEN MD This examination was interpreted and the report reviewed and electronically signed by: MARTHA MCMULLEN MD on Jun 26 2024 12:25PM EST Supporting Subjective Information Below: Past Medical History: PAST MEDICAL HISTORY Diagnosis Date Asthma Bowel perforation 11/05/2012 C. difficile colitis 04/2016 Closed nondisplaced fracture of proximal phalanx of lesser toe of left foot with routine healing 10/07/2019 COVID-19 03/30/2021 Diabetes mellitus type 2 in obese 10/2013 A1C 6.8% Dyslipidemia 01/02/2019 Essential hypertension 08/11/2015 GERD (gastroesophageal reflux disease) Incisional hernia 06/26/2013 Injury to rectosigmoid colon 10/17/2012 Low HDL (under 40) 10/2013 Nephrolithiasis Osteoarthrosis, unspecified whether generalized or localized, other specified sites Osteoarthritis Bilateral knees Spasm of muscle Tobacco use disorder quit 2012 Unspecified hereditary and idiopathic peripheral neuropathy 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 Ramirez COLONOSCOPY 09/17/2022 repeat in 10 years EGD 09/17/2022 HERNIA REPAIR HX 06/22/2013 HYSTERECTOMY HX 2012 fistula with intestine HYSTEROSCOPY, DIAGNOSTIC (SEPARATE Hysteroscopy/Novasur e LAP HYSTERECTOMY FOR UTERUS 250G OR LESS 10/09/2012 with vaginal sling, LSO, right salpingectomy LAPS ABD PRTMANDOMENTUM DX W/WO SPEC BR/WA SPX Laparoscopy LAPS REPAIR HERNIA EXCEPT INCAL/INGUN REDUCIBLE 05/2017 LIG/TRNSXJ FLP TUBE ABDL/VAG APPR UNI/BI 2002 Tubal ligation PAST SURGICAL HISTORY OF 01/30/2005 Left shoulder arthroscopy and debridement PAST SURGICAL HISTORY OF 02/2004 3rd toe left foot PAST SURGICAL HISTORY OF 03/14/2010 right total knee replacement PAST SURGICAL HISTORY OF 03/14/2009 left total knee replacement PAST SURGICAL HISTORY OF 01/23/2013 Ileostomy closure. PAST SURGICAL HISTORY OF Left 01/06/2016 left ring trigger release RPR 1ST INCAL/VNT HERNIA INCARCERATED 06/22/2013 at ileostomy site - 11x[address] mesh RPR RECRT INCAL/VNT HERNIA INCARCERATED 07/23/2014 at midline' RPR RECRT INCAL/VNT HERNIA INCARCERATED 10/11/2014 - recurrent small bowel resection, enterotomy Family History: FAMILY HISTORY Problem Relation Age of Onset Hypertension Mother Diabetes Mother Cancer Maternal Uncle throat cancer Hypertension Sister Diabetes Sister other (hyperlipidemia) Sister Social History: Social History Tobacco Use Smoking status: Former Current packs/day: 0.00 Average packs/day: 0.5 packs/day for 24.0 years (12.0 ttl pk-yrs) Types: Cigarettes Start d (more content not included)... Normal [facility] Fructosamine SerPl-sCncon Fructosamine [Moles/Vol] 468 umol/L High 205-285 [facility] Comment on above: Order Comment: Speci men Type: BLOOD SPECIMENOrdering Facility: [facility] Address: [address] [place] [address] Performed By: #### 1 5069-8 ####[facility] LABCLIA [id number] [place] [address] [place] HbA1c (Bld)on 07-20-2024 Average glucose Estimated from glycated hemoglobin (Bld) [Mass/Vol] 255 mg/dL Normal [facility] Comment on above: Order Comment: Yuliet angulo Type: BLOOD SPECIMENOrdering Facility: [facility] Address: [address] [place] [address] Result Comment: eAG: (Estimated average glucose) is a calculated value from HgbA1c and is contact center representative of the average blood glucose level in the last 2-3 month period. Performed By: #### 5 5454-3 ####[facility] LABCLIA [id number] [address] STATES OF [facility] HbA1c (Bld) [Mass fraction] 10.5 % High 4.3-5.6 [facility] Comment on above: Order Comment: Yuliet angulo Type: BLOOD SPECIMENOrdering Facility: [facility] Address: [address] [place] [address] Result Comment: [place] ican Diabetes Association guidelines indicate that patients with HgbA1c in the range 5.7-6.4% are at increased risk for development of diabetes, and intervention by lifestyle modification may be beneficial. HgbA1c greater or equal to 6.5% is considered diagnostic of diabetes. Performed By: #### 5 5454-3 ####[facility] LABCLIA [id number] [address] OF [facility] L[facility] ([id number]) 1965 F Date Time Provider Department 07/16/24 [facility] During your visit today, we recorded the following information about you: Brianna Dye RN 07/16/2024 11:16 AM Signed Patient calling in and states she was seen by Dr. Zheng on 06/23/24 and her right hand pain was evaluated. Labs were normal and xray was normal. Patient 's hand pain continues and she would like orthopedics to look at her hand for possible trigger finger and invasive intervention, if needed. Patient asking Dr. Zheng if it would be appropriate for her to see Ortho, and if so, does Dr. Zheng recommend a provider? Please place consult order if agreeable. Call patient with reply. Thank you. Jese Zheng DO 07/17/2024 7:07 AM Signed Yes, okay to see Orthopedics- Dr. Brown or Dr.Chicorrelli Jese Zheng DO Allergies As of Date: 07/16/2024 Noted Allergy Reaction OMNICEF (CEFDINIR) 07/10/2019 9 - Itching Comments: Vaginitis severe PROVENTIL (ALBUTEROL SULFATE) 10/10/2006 11 - Vomiting Comments: Can not tolerate generic albuterol 08/22/12 - MEM. TRAMADOL 03/21/2005 4 - Hives Date Reviewed: 06/23/2024 Reviewed by: Fabiana Cook LPN - Fully Assessed Reason for Visit: Patient Question [2647] Primary Visit Diagnosis:Right hand pain [M79.641] Order(s):CONSULT TO ORTHOPAEDICS [9026] Order #: [id number]: 1 FUTURE Prescriptions as of 07/28/2024 - empagliflozin (JARDIANCE) 10 mg tablet Take 1 tablet by mouth daily with breakfast. - dulaglutide (TRULICITY) 4.5 mg/0.5 mL pen injector Inject 4.5 mg subcutaneously one time a week. - insulin aspart U-100 (NOVOLOG U-100 INSULIN ASPART) 100 unit/mL Inject 18 units subcutaneously as directed plus sliding scale with meals. (Max 80 units/day) - insulin degludec (TRESIBA FLEXTOUCH U-200) 200 unit/mL (3 mL) injection Inject 120 Units subcutaneously daily at bedtime. - albuterol HFA (VENTOLIN HFA) 90 mcg/actuation inhaler Inhale 2 Puffs as instructed every 4 hours as needed. For wheezing/shortness of breath. - atorvastatin (LIPITOR) 40 mg tablet Take 1 tablet by mouth once daily. - ergocalciferol 50,000 unit capsule (VITAMIN D2, DRISDOL) Take 1 capsule by mouth one time a week. - ibuprofen (MOTRIN) 800 mg tablet TAKE 1 TABLET BY MOUTH EVERY 8 HOURS NEEDED FOR PAIN WITH FOOD - mupirocin (BACTROBAN) 2 % ointment Apply to affected area every 12 hours as needed (rash, skin lesions). - flash glucose sensor (FREESTYLE MICHI 14 DAY SENSOR) kit Apply sensor to back of arm to check blood sugars as directed. Change sensor every 2 weeks and rotate arms. - aspirin, enteric coated (ASPIRIN, ENTERIC COATED) 81 mg EC tablet Take 1 tablet by mouth once daily. - famotidine (PEPCID) 20 mg tablet Take 1 tablet by mouth two times a day. - Blood-Glucose Sensor (FREESTYLE MICHI 3 PLUS SENSOR) ingrid Use to monitor glucose continuously and replace sensor every 15 days - metFORMIN (GLUCOPHAGE) 1,000 mg tablet Take 1 tablet by mouth two times a day. - cyanocobalamin (VITAMIN B-12) 1,000 mcg tab Take 2 tablets by mouth once daily. - lisinopril (ZESTRIL) 10 mg tablet Take 1 tablet by mouth once daily. - Calcium Citrate-Vitamin D3 (CITRACAL+D) 315 mg-6.25 mcg (250 unit) tab Take 1 tablet by mouth once daily. - benzonatate (TESSALON PERLES) 100 mg capsule Take 1 capsule by mouth three times a day as needed for cough. - Oral Medication Containers (SHARPS CONTAINER) [facility] Use to collect sharps as directed. - flash glucose scanning reader (FREESTYLE MICHI 3 READER) Use to monitor blood glucose continuously - Insulin [place], Disposable, (UNIFINE PENTIPS) 31 gauge x 3/16 Use as directed 4 times daily with insulin - FLUoxetine (PROZAC) 20 mg capsule Take 1 capsule by mouth once daily. In the morning, for depression - gabapentin (NEURONTIN) 100 mg capsule Take 1-2 capsules by mouth daily at bedtime for 30 days. For foot pain - alcohol swabs (BD SINGLE USE SWABS REGULAR) Use as directed 4 to 5 times daily to check blood sugars and with insulin injections - diclofenac (VOLTAREN ARTHRITIS PAIN) 1 % topical gel Apply 2 g to affected area four times daily. - glucagon (BAQSIMI) 3 mg/actuation nasal spray Use 1 [place] in the nose as needed for low blood sugar. May repeat after 15 minutes using a new device if there is no response. - polyethylene glycol 3350 (MIRALAX) 17 gram/dose powder 1 capful daily in the morning - blood sugar diagnostic (FREESTYLE PRECISION JEREMIAS STRIPS) test strip Use to test blood sugar up to twice daily as instructed. Dx: insulin-dependent DM Meds Comments as of 08/13/2013: Problem List As Of Date 07/16/2024 Noted Resolved Tobacco use disorder [F17.200] 06/24/2012 Peripheral neuropathy [G62.9] Spasm of muscle [M62.838] 08/11/2015 Other Specified Disorder of Skin [ (more content not included)... Normal [facility] CNPTita 07-06-2024 CNPN Telephone (FAMPWS) LINA ISAAC ([id number]) 1965 F Date Time Provider Department 07/06/24 [facility] [employer] During your visit today, we recorded the following information about you: Jees Zheng DO 07/06/2024 7:33 AM Addendum Please inform patient that her hand xray was normal except showing that she has osteoarthritis of some of her joints. Her labs were normal DO Joyce Barrera Susan LPN 07/06/2024 2:43 PM Signed Pt. informed via my chart. Allergies As of Date: 07/06/2024 Noted Allergy Reaction OMNICEF (CEFDINIR) 07/10/2019 9 - Itching Comments: Vaginitis severe PROVENTIL (ALBUTEROL SULFATE) 10/10/2006 11 - Vomiting Comments: Can not tolerate generic albuterol 08/22/12 - MEM. TRAMADOL 03/21/2005 4 - Hives Date Reviewed: 06/23/2024 Reviewed by: Fabiana Cook LPN - Fully Assessed Prescriptions as of 07/06/2024 - albuterol HFA (VENTOLIN HFA) 90 mcg/actuation inhaler Inhale 2 Puffs as instructed every 4 hours as needed. For wheezing/shortness of breath. - atorvastatin (LIPITOR) 40 mg tablet Take 1 tablet by mouth once daily. - ergocalciferol 50,000 unit capsule (VITAMIN D2, DRISDOL) Take 1 capsule by mouth one time a week. - ibuprofen (MOTRIN) 800 mg tablet TAKE 1 TABLET BY MOUTH EVERY 8 HOURS NEEDED FOR PAIN WITH FOOD - mupirocin (BACTROBAN) 2 % ointment Apply to affected area every 12 hours as needed (rash, skin lesions). - flash glucose sensor (GaN SystemsYLE MICHI 14 DAY SENSOR) kit Apply sensor to back of arm to check blood sugars as directed. Change sensor every 2 weeks and rotate arms. - aspirin, enteric coated (ASPIRIN, ENTERIC COATED) 81 mg EC tablet Take 1 tablet by mouth once daily. - famotidine (PEPCID) 20 mg tablet Take 1 tablet by mouth two times a day. - sulfamethoxazole-tri methoprim (BACTRIM DS) 800-160 mg per tablet Take 1 tablet by mouth two times a day for 14 days. - Blood-Glucose Sensor (GaN SystemsYLE MICHI 3 PLUS SENSOR) ingrid Use to monitor glucose continuously and replace sensor every 15 days - metFORMIN (GLUCOPHAGE) 1,000 mg tablet Take 1 tablet by mouth two times a day. - insulin degludec (TRESIBA FLEXTOUCH U-200) 200 unit/mL (3 mL) injection Inject 120 Units subcutaneously daily at bedtime. - dulaglutide (TRULICITY) 4.5 mg/0.5 mL pen injector Inject 4.5 mg subcutaneously one time a week. - cyanocobalamin (VITAMIN B-12) 1,000 mcg tab Take 2 tablets by mouth once daily. - lisinopril (ZESTRIL) 10 mg tablet Take 1 tablet by mouth once daily. - Calcium Citrate-Vitamin D3 (CITRACAL+D) 315 mg-6.25 mcg (250 unit) tab Take 1 tablet by mouth once daily. - benzonatate (TESSALON PERLES) 100 mg capsule Take 1 capsule by mouth three times a day as needed for cough. - Oral Medication Containers (SHARPS CONTAINER) misc Use to collect sharps as directed. - flash glucose scanning reader (Human Factor AnalyticsSTYLE MICHI 3 READER) Use to monitor blood glucose continuously - insulin aspart U-100 (NOVOLOG U-100 INSULIN ASPART) 100 unit/mL Inject 16 units subcutaneously as directed plus sliding scale with meals. - Insulin [place], Disposable, (UNIFINE PENTIPS) 31 gauge x 3/16 Use as directed 4 times daily with insulin - FLUoxetine (PROZAC) 20 mg capsule Take 1 capsule by mouth once daily. In the morning, for depression - gabapentin (NEURONTIN) 100 mg capsule Take 1-2 capsules by mouth daily at bedtime for 30 days. For foot pain - alcohol swabs (BD SINGLE USE SWABS REGULAR) Use as directed 4 to 5 times daily to check blood sugars and with insulin injections - diclofenac (VOLTAREN ARTHRITIS PAIN) 1 % topical gel Apply 2 g to affected area four times daily. - glucagon (BAQSIMI) 3 mg/actuation nasal spray Use 1 [place] in the nose as needed for low blood sugar. May repeat after 15 minutes using a new device if there is no response. - polyethylene glycol 3350 (MIRALAX) 17 gram/dose powder 1 capful daily in the morning - blood sugar diagnostic (FREESTYLE PRECISION JEREMIAS STRIPS) test strip Use to test blood sugar up to twice daily as instructed. Dx: insulin-dependent DM Meds Comments as of 08/13/2013: Problem List As Of Date 07/06/2024 Noted Resolved Tobacco use disorder [F17.200] 06/24/2012 Peripheral neuropathy [G62.9] Spasm of muscle [M62.838] 08/11/2015 Other Specified Disorder of Skin [L98.8] 02/18/2006 06/24/2012 Primary Localized Osteoarthrosis, Lower Leg [M1*03/21/2006 08/11/2015 Corns and callosities [L84] 10/14/2006 08/11/2015 Pain in Soft Tissues of Limb [M79.609] 10/14/2006 Contusion of foot [S90.30XA] 02/18/2007 06/24/2012 Localized osteoarthrosis not specified whether *05/13/2007 08/11/2015 Reaction, situational, acute, to stress [F43.0] 05/18/2010 08/11/2015 Sprain of neck [S13.9XXA] 05/18/2011 06/24/2012 Pelvic pain 07/10/2012 08/11/2015 Dyspareunia [KDO2693] 07/10/2012 08/11/2015 Fibroids [D21.9] 07/10 (more content not included)... Normal [facility] CNPN Telephone ([facility]) LINA ISAAC ([id number]) 1965 F Date Time Provider Department 07/06/[address] [facility] During your visit today, we recorded the following information about you: Susana Garcia RPh 07/06/2024 2:02 PM Signed Primary Care Pharmacy Rescheduling Outreach Patient cancelled 06/04 follow up visit and has not yet rescheduled. Call center, please contact patient and reschedule in person, telephone, and virtual visit for Diabetes management within ~4-6 week(s). (Visit length: 30 minutes) Thank you, Susana Garcia, PharmD, BCACP Primary Care Clinical [employer] 07/06/2024 2:01 PM Allergies As of Date: 07/06/2024 Noted Allergy Reaction OMNICEF (CEFDINIR) 07/10/2019 9 - Itching Comments: Vaginitis severe PROVENTIL (ALBUTEROL SULFATE) 10/10/2006 11 - Vomiting Comments: Can not tolerate generic albuterol 08/22/12 - MEM. TRAMADOL 03/21/2005 4 - Hives Date Reviewed: 06/23/2024 Reviewed by: Fabiana Cook LPN - Fully Assessed Reason for Visit: Appointment [186] Cmt: Pharmacist Visit Rescheduling Prescriptions as of 07/06/2024 - albuterol HFA (VENTOLIN HFA) 90 mcg/actuation inhaler Inhale 2 Puffs as instructed every 4 hours as needed. For wheezing/shortness of breath. - atorvastatin (LIPITOR) 40 mg tablet Take 1 tablet by mouth once daily. - ergocalciferol 50,000 unit capsule (VITAMIN D2, DRISDOL) Take 1 capsule by mouth one time a week. - ibuprofen (MOTRIN) 800 mg tablet TAKE 1 TABLET BY MOUTH EVERY 8 HOURS NEEDED FOR PAIN WITH FOOD - mupirocin (BACTROBAN) 2 % ointment Apply to affected area every 12 hours as needed (rash, skin lesions). - flash glucose sensor (FREESTYLE MICHI 14 DAY SENSOR) kit Apply sensor to back of arm to check blood sugars as directed. Change sensor every 2 weeks and rotate arms. - aspirin, enteric coated (ASPIRIN, ENTERIC COATED) 81 mg EC tablet Take 1 tablet by mouth once daily. - famotidine (PEPCID) 20 mg tablet Take 1 tablet by mouth two times a day. - sulfamethoxazole-tri methoprim (BACTRIM DS) 800-160 mg per tablet Take 1 tablet by mouth two times a day for 14 days. - Blood-Glucose Sensor (FREESTYLE MICHI 3 PLUS SENSOR) ingrid Use to monitor glucose continuously and replace sensor every 15 days - metFORMIN (GLUCOPHAGE) 1,000 mg tablet Take 1 tablet by mouth two times a day. - insulin degludec (TRESIBA FLEXTOUCH U-200) 200 unit/mL (3 mL) injection Inject 120 Units subcutaneously daily at bedtime. - dulaglutide (TRULICITY) 4.5 mg/0.5 mL pen injector Inject 4.5 mg subcutaneously one time a week. - cyanocobalamin (VITAMIN B-12) 1,000 mcg tab Take 2 tablets by mouth once daily. - lisinopril (ZESTRIL) 10 mg tablet Take 1 tablet by mouth once daily. - Calcium Citrate-Vitamin D3 (CITRACAL+D) 315 mg-6.25 mcg (250 unit) tab Take 1 tablet by mouth once daily. - benzonatate (TESSALON PERLES) 100 mg capsule Take 1 capsule by mouth three times a day as needed for cough. - Oral Medication Containers (SHARPS CONTAINER) misc Use to collect sharps as directed. - flash glucose scanning reader (FREESTYLE MICHI 3 READER) Use to monitor blood glucose continuously - insulin aspart U-100 (NOVOLOG U-100 INSULIN ASPART) 100 unit/mL Inject 16 units subcutaneously as directed plus sliding scale with meals. - Insulin [place], Disposable, (UNIFINE PENTIPS) 31 gauge x 3/16 Use as directed 4 times daily with insulin - FLUoxetine (PROZAC) 20 mg capsule Take 1 capsule by mouth once daily. In the morning, for depression - gabapentin (NEURONTIN) 100 mg capsule Take 1-2 capsules by mouth daily at bedtime for 30 days. For foot pain - alcohol swabs (BD SINGLE USE SWABS REGULAR) Use as directed 4 to 5 times daily to check blood sugars and with insulin injections - diclofenac (VOLTAREN ARTHRITIS PAIN) 1 % topical gel Apply 2 g to affected area four times daily. - glucagon (BAQSIMI) 3 mg/actuation nasal spray Use 1 [place] in the nose as needed for low blood sugar. May repeat after 15 minutes using a new device if there is no response. - polyethylene glycol 3350 (MIRALAX) 17 gram/dose powder 1 capful daily in the morning - blood sugar diagnostic (FREESTYLE PRECISION JEREMIAS STRIPS) test strip Use to test blood sugar up to twice daily as instructed. Dx: insulin-dependent DM Meds Comments as of 08/13/2013: Problem List As Of Date 07/06/2024 Noted Resolved Tobacco use disorder [F17.200] 06/24/2012 Peripheral neuropathy [G62.9] Spasm of muscle [M62.838] 08/11/2015 Other Specified Disorder of Skin [L98.8] 02/18/2006 06/24/2012 Primary Localized Osteoarthrosis, Lower Leg [M1*03/21/2006 08/11/2015 Corns and callosities [L84] 10/14/2006 08/11/2015 Pain in Soft Tissues of Limb [M79.609] 10/14/2006 Contusion of foot [S90.30XA] 02/18/2007 06/24/2012 Localized osteoarthrosis not specified whether *05/13/2007 (more content not included)... Normal [facility] CBC W Auto Differential pane l (Bld)on 06-23-2024 Basophils (Bld) [#/Vol] 0.06 10*3/uL Normal <0.11 [facility] Comment on above: Order Comment: Speci men Type: BLOOD SPECIMENOrdering Facility: [facility] Address: [address] [place], [place] [address] Performed By: #### 4 537-7, 16769-8 ####[facility] LABCLIA [id number] [place] [address] [place] Basophils/100 WBC (Bld) 0.8 % Normal [facility] Comment on above: Order Comment: Speci men Type: BLOOD SPECIMENOrdering Facility: [facility] Address: [address] [place] [address] Performed By: #### 4 537-7, 46028-8 ####[facility] LABCLIA [id number] [place] [address] [place] Differential cell count method Nom (Bld) Auto Normal [facility] Comment on above: Order Comment: Speci men Type: BLOOD SPECIMENOrdering Facility: [facility] Address: [address] [place] [address] Performed By: #### 4 537-7, 95462-1 ####[facility] LABCLIA [id number] [place] [address] [place] Eosinophils (Bld) [#/Vol] 0.18 10*3/uL Normal <0.46 [facility] Comment on above: Order Comment: Speci men Type: BLOOD SPECIMENOrdering Facility: [facility] Address: [address] [place] [address] Performed By: #### 4 537-7, 67325-7 ####[facility] LABCLIA [id number] [place] [address] [place] Eosinophils/100 WBC (Bld) 2.5 % Normal [facility] Comment on above: Order Comment: Speci men Type: BLOOD SPECIMENOrdering Facility: [facility] Address: [address] [place] [address] Performed By: #### 4 537-7, 15564-8 ####[facility] LABCLIA [id number] [place] [address] [place] Erythrocyte distribution width (RBC) [Ratio] 11.9 % Normal 11.5-15.0 [facility] Comment on above: Order Comment: Speci men Type: BLOOD SPECIMENOrdering Facility: [facility] Address: [address] [place] [address] Performed By: #### 4 537-7, 58541-6 ####[facility] LABCLIA [id number] [place] [address] [place] Hematocrit (Bld) [Volume fraction] 40.1 % Normal 36.0-46.0 [facility] Comment on above: Order Comment: Speci men Type: BLOOD SPECIMENOrdering Facility: [facility] Address: [address] [place] [address] Performed By: #### 4 537-7, 38114-5 ####[facility] LABCLIA [id number] [place] [address] [place] Hemoglobin (Bld) [Mass/Vol] 13.6 g/dL Normal 11.5-15.5 [facility] Comment on above: Order Comment: Speci men Type: BLOOD SPECIMENOrdering Facility: [facility] Address: [address] [place] [address] Performed By: #### 4 537-7, 80845-8 ####[facility] LABCLIA [id number] [place] [address] [place] Immature granulocytes (Bld) [#/Vol] 0.04 10*3/uL Normal <0.10 [facility] Comment on above: Order Comment: Speci men Type: BLOOD SPECIMENOrdering Facility: [facility] Address: [address] [place] [address] Performed By: #### 4 537-7, 00822-0 ####[facility] LABCLIA [id number] [place] [address] [place] Immature granulocytes/100 WBC (Bld) 0.5 % Normal [facility] Comment on above: Order Comment: Speci men Type: BLOOD SPECIMENOrdering Facility: [facility] Address: [address] [place] [address] Performed By: #### 4 537-7, 84580-5 ####[facility] LABCLIA [id number] [place] [address] [place] Lymphocytes (Bld) [#/Vol] 3.41 10*3/uL Normal 1.00-4.00 [facility] Comment on above: Order Comment: Speci men Type: BLOOD SPECIMENOrdering Facility: [facility] Address: [address] [place] [address] Performed By: #### 4 537-7, 70314-3 ####[facility] LABIA [id number] [place] [address] [place] Lymphocytes/100 WBC (Bld) 46.6 % Normal [facility] Comment on above: Order Comment: Speci men Type: BLOOD SPECIMENOrdering Facility: [facility] Address: [address] [place] [address] Performed By: #### 4 537-7, 00721-7 ####[facility] LABIA [id number] [place] [address] [place] MCH (RBC) [Entitic mass] 31.0 pg Normal 26.0-34.0 [facility] Comment on above: Order Comment: Speci men Type: BLOOD SPECIMENOrdering Facility: [facility] Address: [address] [place] [address] Performed By: #### 4 537-7, 27117-5 ####[facility] LABIA [id number] [place] [id number] [place] MCHC (RBC) [Mass/Vol] 33.9 g/dL Normal 30.5-36.0 [facility] Comment on above: Order Comment: Speci men Type: BLOOD SPECIMENOrdering Facility: [facility] Address: [address] [place] [address] Performed By: #### 4 537-7, 07838-6 ####[facility] LABCLIA [id number] [place] [address] [place] MCV (RBC) [Entitic vol] 91.3 fL Normal 80.0-100.0 [facility] Comment on above: Order Comment: Speci men Type: BLOOD SPECIMENOrdering Facility: [facility] Address: [address] [place] [address] Performed By: #### 4 537-7, 53636-5 ####[facility] LABIA [id number] [place] [address] [place] Monocytes (Bld) [#/Vol] 0.62 10*3/uL Normal <0.87 [facility] Comment on above: Order Comment: Speci men Type: BLOOD SPECIMENOrdering Facility: [facility] Address: [address] [place] [address] Performed By: #### 4 537-7, 43183-6 ####[facility] LABIA [id number] [place] [address] [place] Monocytes/100 WBC (Bld) 8.5 % Normal [facility] Comment on above: Order Comment: Speci men Type: BLOOD SPECIMENOrdering Facility: [facility] Address: [address] [place] [address] Performed By: #### 4 537-7, 70854-8 ####[facility] LABIA [id number] [place] [address] [place] Neutrophils (Bld) [#/Vol] 3.00 10*3/uL Normal 1.45-7.50 [facility] Comment on above: Order Comment: Speci men Type: BLOOD SPECIMENOrdering Facility: [facility] Address: [address] [place] [address] Performed By: #### 4 537-7, 54243-3 ####[facility] LABIA [id number] [place] [address] [place] Neutrophils/100 WBC (Bld) 41.1 % Normal [facility] Comment on above: Order Comment: Speci men Type: BLOOD SPECIMENOrdering Facility: [facility] Address: [address] [place] [address] Performed By: #### 4 537-7, 42923-1 ####[facility] LABCLIA [id number] [place] [address] [place] Nucleated RBC (Bld) [#/Vol] 10*3/uL Normal <0.01 [facility] Comment on above: Order Comment: Speci men Type: BLOOD SPECIMENOrdering Facility: [facility] Address: [address] [place] [address] Performed By: #### 4 537-7, 21104-0 ####[facility] LABCLIA [id number] [place] [address] [place] Nucleated RBC/100 WBC (Bld) [Ratio] 0.0 /100 WBC Normal [facility] Comment on above: Order Comment: Speci men Type: BLOOD SPECIMENOrdering Facility: [facility] Address: [address] [place] [address] Performed By: #### 4 537-7, 28406-3 ####[facility] LABCLIA [id number] [place] [address] [place] Platelet mean volume (Bld) [Entitic vol] 10.0 fL Normal 9.0-12.7 [facility] Comment on above: Order Comment: Speci men Type: BLOOD SPECIMENOrdering Facility: [facility] Address: [address] [place] [address] Performed By: #### 4 537-7, 72346-7 ####[facility] LABCLIA [id number] [place] [address] [place] Platelets (Bld) [#/Vol] 259 10*3/uL Normal 150-400 [facility] Comment on above: Order Comment: Speci men Type: BLOOD SPECIMENOrdering Facility: [facility] Address: [address] [place] [address] Performed By: #### 4 537-7, 99146-6 ####[facility] LABCLIA [id number] [place] [address] [place] RBC (Bld) [#/Vol] 4.39 10*6/uL Normal 3.90-5.20 [facility] Comment on above: Order Comment: Speci men Type: BLOOD SPECIMENOrdering Facility: [facility] Address: [address] [place] [address] Performed By: #### 4 537-7, 56144-4 ####[facility] LABCLIA [id number] [place] [address] [place] WBC (Bld) [#/Vol] 7.31 10*3/uL Normal 3.70-11.00 [facility] Comment on above: Order Comment: Speci men Type: BLOOD SPECIMENOrdering Facility: [facility] Address: [address] [place] [address] Performed By: #### 4 537-7, 12700-0 ####[facility] LABCLIA [id number] [place] [address] [place] CNOVon 06-23-2024 CNOV Office Visit (FAMPWS) LINA ISAAC ([id number]) 1965 F Date Time Provider Department 06/23/24 2:40 PM JESE ZHENG FAMPWS During your visit today, we recorded the following information about you: Temperature Pulse Respiration Blood pressure 98.1 degrees 88/minute 20/minute 138/80 Weight 94.8 kg Jese Zheng, 07/01/2024 10:45 PM Signed 3 weeks of sinus congestion and nasal drainage and cough and chest congestion. Use of OTC supplements such as mucinex without relief. Sputum and nasal drainage is yellow and green and sometimes bloody. Occasional wheezing. Is trying to increase water intake. Right hand middle finger with pain to the touch, swelling worse by the end of the day due to she is right hand dominant, not able to pick anything up with her right hand. Swelling into the hand. Started 10 days ago Patient presents with: F/U 3 Month Immunizations: Flu vaccination HPI: Lina Isaac is a 58 year old female who presents to the office today for review of health conditions. Concerns today: 3 weeks of sinus congestion and nasal drainage and cough and chest congestion. Use of OTC supplements such as mucinex without relief. Sputum and nasal drainage is yellow and green and sometimes bloody. Occasional wheezing. Is trying to increase water intake. Right hand middle finger with pain to the touch, swelling worse by the end of the day due to she is right hand dominant, not able to pick anything up with her right hand. Swelling into the hand. Started 10 days ago Ms. Isaac has past history of diabetes. Since our last visit she denies excessive thirst or increased frequency of urination, chest pain or dyspnea , new or unusual visual symptoms, and low sugar/hypoglycemic reactions. Depression- no. Follows a diabetic diet some of the time. She is compliant with medication(s) and is tolerating med(s) without any side effects. She reports checking her glucose on a once a day schedule with sugars in the <200 range. Patient's last HgA1C was Hemoglobin A1C (%) Date Value 03/19/2024 9.1 08/27/2023 11.2 08/14/2021 11.2 05/09/2021 12.1 Hemoglobin A1C (POCT) (%) Date Value 11/27/2023 9.3 05/27/2023 11.4 ) Last Ophthalmology exam was within the past 12 months Ms. Isaac reports history of hyperlipidemia. Current therapy includes atorvastatin (Lipitor) 40 mg. Denies side effects of muscle weakness or achiness. Her most recent lipid panels are reviewed. Cholesterol, Total (mg/dL) Date Value 03/19/2024 172 05/09/2021 205 HDL Cholesterol (mg/dL) Date Value 03/19/2024 40 05/09/2021 54 LDL Cholesterol (mg/dL) Date Value 03/19/2024 102 05/09/2021 127 LDL Cholesterol, Nonfasting (mg/dL) Date Value 02/19/2023 152 Triglyceride (mg/dL) Date Value 03/19/2024 150 05/09/2021 120 Ms. Isaac indicates a history of hypertension and states that she is feeling well and denies any symptoms referable to elevated blood pressure. Specifically denies headache, chest pain, palpitations, dyspnea, and peripheral edema. Patient denies any side effects of her medication(s) and is compliant with their regimen. Last 3 Encounter BP Readings: Date: BP: 06/23/2024 138/80 03/17/2024 136/80 11/27/2023 120/60 She watches her diet for sodium, low fat and low cholesterol some of the time. She does not check BP's generally. Lina gets minimal exercise. PAST MEDICAL HISTORY Diagnosis Date Asthma Bowel perforation 11/05/2012 C. difficile colitis 04/2016 Closed nondisplaced fracture of proximal phalanx of lesser toe of left foot with routine healing 10/07/2019 COVID-19 03/30/2021 Diabetes mellitus type 2 in obese 10/2013 A1C 6.8% Dyslipidemia 01/02/2019 Essential hypertension 08/11/2015 GERD (gastroesophageal reflux disease) Incisional hernia 06/26/2013 Injury to rectosigmoid colon 10/17/2012 Low HDL (under 40) 10/2013 Nephrolithiasis Osteoarthrosis, unspecified whether generalized or localized, other specified sites Osteoarthritis Bilateral knees Spasm of muscle Tobacco use disorder quit 2012 Unspecified hereditary and idiopathic peripheral neuropathy 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 Ramirez COLONOSCOPY 09/17/2022 repeat in 10 years EGD 09/17/2022 HERNIA REPAIR HX 06/22/2013 HYSTERECTOMY HX 2011 fistula with intestine HYSTEROSCOPY, DIAGNOSTIC (SEPARATE Hysteroscopy/Novasur e LAP HYSTERECTOMY FOR UTERUS 250G OR LESS 10/09/2012 with vaginal sling, LSO, right salpingectomy LAPS ABD PRTMANDOMENTUM DX W/WO SPEC BR/WA SPX Laparoscopy LAPS REPAIR HERNIA EXCEPT INCAL/INGUN REDUCIBLE 05/2017 LIG/TRNSXJ FLP TUBE ABDL/VAG APPR UNI/BI 2001 Tubal ligat (more content not included)... Normal [facility] CRP [facility] 06-23-2024 CRP [Mass/Vol] 0.3 mg/dL Normal <0.9 [facility] Comment on above: Order Comment: Speci men Type: BLOOD SPECIMENOrdering Facility: [facility] Address: [address] [place] [address] Performed By: #### 1 988-5, 3084-1 ####[facility] [id number] [place] [address] [place] ESR Westergren method (Bld) [Velocity]on 06-23-2024 ESR (Bld) [Velocity] 15 mm/h Normal 0-20 [facility] Comment on above: Order Comment: Speci men Type: BLOOD SPECIMENOrdering Facility: [facility] Address: [address] [place] [address] Performed By: #### 4 537-7, 91386-7 ####[facility] [id number] [place] [address] [place] [facility] Urate [Mass/Vol] 3.2 mg/dL Normal 2.5-6.6 [facility] Comment on above: Order Comment: Speci men Type: BLOOD SPECIMENOrdering Facility: [facility] Address: [address] [place] [address] Performed By: #### 1 988-5, 3084-1 ####[facility] [id number] [place] [address] [place] XR HAND 3V PA/LAT/OBL RTon 1 08-24-2023 XR HAND 3V PA/LAT/OBL RT * * *Final Repo rt* * * DATE OF EXAM: Jun 23 2024 4:01PM WOX [id number] - XR HAND 3V PA/LAT/OBL RT / PROCEDURE REASON: multiple diagnoses * * * * Physician Interpretation * * * * EXAMINATION: XR HAND 3V PA/LAT/OBL RT CLINICAL HISTORY: Right hand pain Technique: XR HAND 3V PA/LAT/OBL RT -- RIGHT with 3 views on 3 images Comparison: None RESULT: No acute fracture or dislocation. Mild narrowing of multiple distal interphalangeal joints with small marginal osteophytes. No periarticular erosions. IMPRESSION: No acute osseous abnormality Fur Trimmer: PSCB Transcribe Date/Time: Jun 26 2024 12:23P Dictated by : MARTHA MCMULLEN MD This examination was interpreted and the report reviewed and electronically signed by: MARTHA MCMULLEN MD on Jun 26 2024 12:25PM EST [id number] CN Normal [facility] LINA ISAAC ([id number]) 1965 F Date Time Provider Department 05/05/24 JESE ZHENG [facility] During your visit today, we recorded the following information about you: Jese Zheng DO 05/05/2024 8:55 AM Signed Please call patient to see how she is doing 'her last A1c was 9.1%, which is slightly improved, but not at goal A1c of <7% yet. How are her blood glucose readings? Is she taking her medication for diabetes as prescribed? Her vitamin D levels were also low. Please make sure she is taking vitamin D3 at least 2194-3614 international unit(s) a day with a meal DO Joyce Barrera Susan LPN 05/05/2024 11:34 AM Signed Pt. informed. She is taking all meds as prescribed. BS are 133-143 in the AM. Doing well. Linnea Martinez PA-C 05/05/2024 2:14 PM Signed I would recommend switching to Vitamin D 50,000 international unit(s) once weekly- stop current Vitamin D3 5000 units and start this new prescription. The following approved medication requests have been transmitted electronically. Requested Prescriptions Signed Prescriptions Disp Refills ergocalciferol 50,000 unit capsule (VITAMIN D2, DRISDOL) 12 capsule 3 Sig: Take 1 capsule by mouth one time a week. Authorizing Provider: LINNEA MARTINEZ PA-C Holiday, [place], [place] 05/05/2024 2:38 PM Signed Pt informed Hayde Zhu MA Allergies As of Date: 05/05/2024 Noted Allergy Reaction OMNICEF (CEFDINIR) 07/10/2019 9 - Itching Comments: Vaginitis severe PROVENTIL (ALBUTEROL SULFATE) 10/10/2006 11 - Vomiting Comments: Can not tolerate generic albuterol 08/22/12 - MEM. TRAMADOL 03/21/2005 4 - Hives Date Reviewed: 04/23/2024 Reviewed by: Susana Garcia [facility] - Fully Assessed Order(s):ergocalcife rol 50,000 unit capsule (VITAMIN D2, DRISDOL)Take 1 capsule by mouth one time a week.Disp: 12 capsuleRfl: 3 Prescriptions as of 05/05/2024 - ergocalciferol 50,000 unit capsule (VITAMIN D2, DRISDOL) Take 1 capsule by mouth one time a week. - Blood-Glucose Sensor (FREESTYLE MICHI 3 PLUS SENSOR) ingrid Use to monitor glucose continuously and replace sensor every 15 days - metFORMIN (GLUCOPHAGE) 1,000 mg tablet Take 1 tablet by mouth two times a day. - insulin degludec (TRESIBA FLEXTOUCH U-200) 200 unit/mL (3 mL) injection Inject 120 Units subcutaneously daily at bedtime. - aspirin, enteric coated (ASPIRIN, ENTERIC COATED) 81 mg EC tablet Take 1 tablet by mouth once daily. - ibuprofen (MOTRIN) 800 mg tablet TAKE 1 TABLET BY MOUTH EVERY 8 HOURS NEEDED FOR PAIN WITH FOOD - dulaglutide (TRULICITY) 4.5 mg/0.5 mL pen injector Inject 4.5 mg subcutaneously one time a week. - mupirocin (BACTROBAN) 2 % ointment Apply to affected area every 12 hours as needed (rash, skin lesions). - cyanocobalamin (VITAMIN B-12) 1,000 mcg tab Take 2 tablets by mouth once daily. - lisinopril (ZESTRIL) 10 mg tablet Take 1 tablet by mouth once daily. - Calcium Citrate-Vitamin D3 (CITRACAL+D) 315 mg-6.25 mcg (250 unit) tab Take 1 tablet by mouth once daily. - benzonatate (TESSALON PERLES) 100 mg capsule Take 1 capsule by mouth three times a day as needed for cough. - Oral Medication Containers (SHARPS CONTAINER) [facility] Use to collect sharps as directed. - flash glucose scanning reader (FREESTYLE MICHI 3 READER) Use to monitor blood glucose continuously - insulin aspart U-100 (NOVOLOG U-100 INSULIN ASPART) 100 unit/mL Inject 16 units subcutaneously as directed plus sliding scale with meals. - Insulin [place], Disposable, (UNIFINE PENTIPS) 31 gauge x 3/16 Use as directed 4 times daily with insulin - flash glucose sensor (FREESTYLE MICHI 14 DAY SENSOR) kit Apply sensor to back of arm to check blood sugars as directed. Change sensor every 2 weeks and rotate arms. - famotidine (PEPCID) 20 mg tablet Take 1 tablet by mouth twice daily. - FLUoxetine (PROZAC) 20 mg capsule Take 1 capsule by mouth once daily. In the morning, for depression - atorvastatin (LIPITOR) 40 mg tablet Take 1 tablet by mouth once daily. - gabapentin (NEURONTIN) 100 mg capsule Take 1-2 capsules by mouth daily at bedtime for 30 days. For foot pain - alcohol swabs (BD SINGLE USE SWABS REGULAR) Use as directed 4 to 5 times daily to check blood sugars and with insulin injections - diclofenac (VOLTAREN ARTHRITIS PAIN) 1 % topical gel Apply 2 g to affected area four times daily. - glucagon (BAQSIMI) 3 mg/actuation nasal spray Use 1 [place] in the nose as needed for low blood sugar. May repeat after 15 minutes using a new device if there is no response. - polyethylene glycol 3350 (MIRALAX) 17 gram/dose powder 1 capful daily in the morning - albuterol HFA (VENTOLIN HFA) 90 mcg/actuation inhaler Inhale 2 Puffs as instructed every 4 hours as needed. For wheezing/shortness of breath. - blood sugar diagnostic (more content not included)... Normal [facility] 05-04-2024 CNPN Telephone (INTMWS) LINA ISAAC ([id number]) 1965 F Date Time Provider Department 05/04/24 JESE ZHENG INTMWS During your visit today, we recorded the following information about you: Rivka Ramírez LPN 05/04/2024 12:02 PM Signed prior authorization approved Payer: [facility] [phone] Note from payer: Your PA request cannot be processed electronically. For further inquiries please contact the number on the back of the member prescription card. (Message [phone]) Electronic appeal: Not supported View History Medication Being Authorized Blood-Glucose Sensor (FREESTYLE MICHI 3 PLUS SENSOR) ingrid Use to monitor glucose continuously and replace sensor every 15 days Dispense: 6 Each Refills: 3 Start: 05/04/2024 Class: Normal This order has been released to its destination. To be filled at: [facility] [address] [place] [address] [address] [facility] - [phone] Allergies As of Date: 05/04/2024 Noted Allergy Reaction OMNICEF (CEFDINIR) 07/10/2019 9 - Itching Comments: Vaginitis severe PROVENTIL (ALBUTEROL SULFATE) 10/10/2006 11 - Vomiting Comments: Can not tolerate generic albuterol 08/22/12 - MEM. TRAMADOL 03/21/2005 4 - Hives Date Reviewed: 04/23/2024 Reviewed by: Susana Garcia [facility] - Fully Assessed Reason for Visit: Insurance Authorization [[id number]] Prescriptions as of 05/04/2024 - Blood-Glucose Sensor (FREESTYLE MICHI 3 PLUS SENSOR) ingrid Use to monitor glucose continuously and replace sensor every 15 days - metFORMIN (GLUCOPHAGE) 1,000 mg tablet Take 1 tablet by mouth two times a day. - insulin degludec (TRESIBA FLEXTOUCH U-200) 200 unit/mL (3 mL) injection Inject 120 Units subcutaneously daily at bedtime. - aspirin, enteric coated (ASPIRIN, ENTERIC COATED) 81 mg EC tablet Take 1 tablet by mouth once daily. - ibuprofen (MOTRIN) 800 mg tablet TAKE 1 TABLET BY MOUTH EVERY 8 HOURS NEEDED FOR PAIN WITH FOOD - dulaglutide (TRULICITY) 4.5 mg/0.5 mL pen injector Inject 4.5 mg subcutaneously one time a week. - mupirocin (BACTROBAN) 2 % ointment Apply to affected area every 12 hours as needed (rash, skin lesions). - cyanocobalamin (VITAMIN B-12) 1,000 mcg tab Take 2 tablets by mouth once daily. - lisinopril (ZESTRIL) 10 mg tablet Take 1 tablet by mouth once daily. - Calcium Citrate-Vitamin D3 (CITRACAL+D) 315 mg-6.25 mcg (250 unit) tab Take 1 tablet by mouth once daily. - benzonatate (TESSALON PERLES) 100 mg capsule Take 1 capsule by mouth three times a day as needed for cough. - Cholecalciferol, Vitamin D3, 125 mcg (5,000 unit) cap Take 1 capsule by mouth once daily. - Oral Medication Containers (SHARPS CONTAINER) [facility] [place] Use to collect sharps as directed. - flash glucose scanning reader (FREESTYLE MICHI 3 READER) Use to monitor blood glucose continuously - insulin aspart U-100 (NOVOLOG U-100 INSULIN ASPART) 100 unit/mL Inject 16 units subcutaneously as directed plus sliding scale with meals. - Insulin [place], Disposable, (UNIFINE PENTIPS) 31 gauge x 3/16 Use as directed 4 times daily with insulin - flash glucose sensor (FREESTYLE MICHI 14 DAY SENSOR) kit Apply sensor to back of arm to check blood sugars as directed. Change sensor every 2 weeks and rotate arms. - famotidine (PEPCID) 20 mg tablet Take 1 tablet by mouth twice daily. - FLUoxetine (PROZAC) 20 mg capsule Take 1 capsule by mouth once daily. In the morning, for depression - atorvastatin (LIPITOR) 40 mg tablet Take 1 tablet by mouth once daily. - gabapentin (NEURONTIN) 100 mg capsule Take 1-2 capsules by mouth daily at bedtime for 30 days. For foot pain - alcohol swabs (BD SINGLE USE SWABS REGULAR) Use as directed 4 to 5 times daily to check blood sugars and with insulin injections - diclofenac (VOLTAREN ARTHRITIS PAIN) 1 % topical gel Apply 2 g to affected area four times daily. - glucagon (BAQSIMI) 3 mg/actuation nasal spray Use 1 [place] in the nose as needed for low blood sugar. May repeat after 15 minutes using a new device if there is no response. - polyethylene glycol 3350 (MIRALAX) 17 gram/dose powder 1 capful daily in the morning - albuterol HFA (VENTOLIN HFA) 90 mcg/actuation inhaler Inhale 2 Puffs as instructed every 4 hours as needed. For wheezing/shortness of breath. - blood sugar diagnostic (FREESTYLE PRECISION JEREMIAS STRIPS) test strip Use to test blood sugar up to twice daily as instructed. Dx: insulin-dependent DM Meds Comments as of 08/13/2013: Problem List As Of Date 05/04/2024 Noted Resolved Tobacco use disorder [F17.200] 06/24/2012 Peripheral neuropathy [G62.9] Spasm of muscle [M62.838] 08/11/2015 Other Specified Disorder of Skin [L98.8] 02/18/2006 06/24/2012 Primary Localized Osteoarthrosis, Lower Leg [M1*03/21/2006 08/11/2015 Corns and callosities [L84] 10/14/2006 08/11/2015 Pain in Soft Tissues of Limb [M79.609] 10/15/19 (more content not included)... Normal [facility] CNOVon 04-23-2024 CNOV Office Visit (PHMEWO) LINA ISAAC ([id number]) 1965 F Date Time Provider Department 04/23/24 3:30 PM SUSANA GARCIA PHMEWO During your visit today, we recorded the following information about you: Susana Garcia RPh 04/23/2024 3:46 PM Signed Primary Care Pharmacy Visit CC (Reason for Consult): (E11.65) Uncontrolled type 2 diabetes mellitus with hyperglycemia (HCC) (primary encounter diagnosis) Goal(s): A1c <7% Last Collaborating Provider Visit: 03/17/[address] Norm Mills Bean Isaac is a 58 year old female presenting for follow up visit in person. Patient consents to pharmacy collaborative practice agreement. Last Pharmacy Visit: 03/05/24 Interim Events: - 03/19/24 A1c results: improvement from 9.3% to 9.1% HPI: Reports doing well States BGs have been up and down last few days, noticing some higher readings just in last couple of days but unknown cause States she has been taking metformin but may need refill for it now Discussed possible addition of SGLT2i; would like to try increasing insulin dose again first before considering adding Current DM Medications: Metformin 1000 mg twice daily Trulicity 4.5 mg once weekly on Sundays Tresiba U200 110 units once daily every morning Novolog 16 units + sliding scale with meals 200-230 = add 2 units 230-260 = add 4 units 260-300 = add 6 units >300 = add 8 units Previously Trialed DM Meds: Ozempic - GI side effects Diet Denies any recent changes GLYCEMIC CONTROL: Glucometer present at visit: Yes Hypoglycemia: No CGM Data Past medical history reviewed. ALLERGIES Allergen Reactions Omnicef [Cefdinir] Itching Vaginitis severe Proventil [Albutero* Vomiting Can not tolerate generic albuterol 08/22/12 - [place]. Tramadol Hives Current Outpatient Medications Medication Sig Dispense Refill aspirin, enteric coated (ASPIRIN, ENTERIC COATED) 81 mg EC tablet Take 1 tablet by mouth once daily. 90 tablet 3 ibuprofen (MOTRIN) 800 mg tablet TAKE 1 TABLET BY MOUTH EVERY 8 HOURS NEEDED FOR PAIN WITH FOOD 60 tablet 1 dulaglutide (TRULICITY) 4.5 mg/0.5 mL pen injector Inject 4.5 mg subcutaneously one time a week. 6 mL 4 mupirocin (BACTROBAN) 2 % ointment Apply to affected area every 12 hours as needed (rash, skin lesions). 66 g 2 cyanocobalamin (VITAMIN B-12) 1,000 mcg tab Take 2 tablets by mouth once daily. 180 tablet 1 lisinopril (ZESTRIL) 10 mg tablet Take 1 tablet by mouth once daily. 90 tablet 3 Calcium Citrate-Vitamin D3 (CITRACAL+D) 315 mg-6.25 mcg (250 unit) tab Take 1 tablet by mouth once daily. 30 tablet 3 insulin degludec (TRESIBA FLEXTOUCH U-200) 200 unit/mL (3 mL) injection Inject 110 Units subcutaneously daily at bedtime. benzonatate (TESSALON PERLES) 100 mg capsule Take 1 capsule by mouth three times a day as needed for cough. 30 capsule 1 Cholecalciferol, Vitamin D3, 125 mcg (5,000 unit) cap Take 1 capsule by mouth once daily. 90 capsule 3 Oral Medication Containers (SHARPS CONTAINER) [facility] [place] Use to collect sharps as directed. 1 Each 0 Blood-Glucose Sensor (FREESTYLE MICHI 3 SENSOR) ingrid Apply new sensor to back of upper arm every 14 days 6 Each 4 flash glucose scanning reader (FREESTYLE MICHI 3 READER) Use to monitor blood glucose continuously 1 Each 0 insulin aspart U-100 (NOVOLOG U-100 INSULIN ASPART) 100 unit/mL Inject 16 units subcutaneously as directed plus sliding scale with meals. Insulin [place], Disposable, (UNIFINE PENTIPS) 31 gauge x 3/16 Use as directed 4 times daily with insulin 400 Each 3 flash glucose sensor (FREESTYLE MICHI 14 DAY SENSOR) kit Apply sensor to back of arm to check blood sugars as directed. Change sensor every 2 weeks and rotate arms. 6 Each 3 famotidine (PEPCID) 20 mg tablet Take 1 tablet by mouth twice daily. 180 tablet 3 FLUoxetine (PROZAC) 20 mg capsule Take 1 capsule by mouth once daily. In the morning, for depression 90 capsule 1 atorvastatin (LIPITOR) 40 mg tablet Take 1 tablet by mouth once daily. 90 tablet 3 gabapentin (NEURONTIN) 100 mg capsule Take 1-2 capsules by mouth daily at bedtime for 30 days. For foot pain 60 capsule 5 alcohol swabs (BD SINGLE USE SWABS REGULAR) Use as directed 4 to 5 times daily to check blood sugars and with insulin injections 360 Each 3 metFORMIN (GLUCOPHAGE) 1,000 mg tablet Take 1 tablet by mouth twice daily. 180 tablet 3 diclofenac (VOLTAREN ARTHRITIS PAIN) 1 % topical gel Apply 2 g to affected area four times daily. 100 g 1 glucagon (BAQSIMI) 3 mg/actuation nasal spray Use 1 [place] in the nose as needed for low blood sugar. May repeat after 15 minutes using a new device if there is no response. 1 Each 3 polyethylene glycol 3350 (MIRALAX) 17 gram/dose powder 1 capful daily in the morning 1700 g 3 albuterol HFA (VENTOLIN HFA) 90 mcg/actuation inhaler Inhale 2 Puffs as instructed every 4 hours as need (more content not included)... Normal [facility] CNCOon 04-15-2024 CNCO HNO ID: [id number] Author: COORDINATOR, MAMMOGRAPHY, ? Service: ? Author Type: Physician Type: Letter Filed: 04/15/2024 15:17 Note Text: [address] [address] April 16, 2024 PID: [id number] Lina Isaac [address] [place] [address] Dear Ms. Isaac, We are pleased to inform you that the results of your recent breast imaging exam on 04/14/2024 are normal. Breast tissue can be either dense or not dense. Dense tissue makes it harder to find breast cancer on a mammogram and also raises the risk of developing breast cancer. Your breast tissue is not dense. Talk to your healthcare provider about breast density, risks for breast cancer, and your individual situation. Early detection of cancer is very important. We also understand recommendations regarding breast cancer screening are controversial. Please discuss with your primary care provider which strategy is best for you and whether a mammogram is right for you. Your imaging studies and report will be kept on file at [facility] as part of your permanent medical record and are available for your continuing care. Thank you for allowing us to help in meeting your health care needs. Sincerely, Dr. Rudd Interpreting Radiologist [facility] (Normal over 40) Normal [facility] DBT Breast - bilateral scree stephen 04-15-2024 IMPRESSION: NEGATIVE There is no mammographic evidence of malignancy. A 1 year screening mammogram is recommended. Chichi aguilar/bhupinder:04/15/2024 15:17:05 Factory Lay Out Engineer(s): Luisito Craven)(Mehdi), [facility] letter sent: Normal over 40 Mammogram BI-RADS: Category 1: Negative Multiple national specialty organizations have released breast cancer screening guidelines for women at average risk for developing breast cancer - guidelines that are based on both evidence and opinion, yet differ on when to start and how often to screen for breast cancer. With representation from Breast Imaging, Internal Medicine, Women's Health, Family Medicine, and Medical/Surgical Oncology, the [facility] has carefully reviewed the data and reached the following consensus: 1) All women should engage in shared decision-making with their providers to decide when to start and how often to screen; 2) All women should have the opportunity to start screening mammography at age 40; 3) For women ages 45-55, we recommend annual screening mammograms; 4) For women ages 55 and over, we support both the transition from an annual to a biennial interval if this aligns more with patient's values and preferences, or continuation with annual screening; 5) All women should discuss with their providers when to stop screening mammograms. Fur Trimmer: Bhupinder Transcribe Date/Time: Apr 14 2024 4:47P Dictated by : CHICHI RUDD MD This examination was interpreted and the report reviewed and electronically signed by: CHICHI RUDD MD on Apr 15 2024 3:17PM [facility] * * *Final Report* * * DATE OF EXAM: Apr 14 2024 5:30PM [facility] 0582 - [facility] SCREENING W CAROLYN / PROCEDURE REASON: Encounter for screening mammogram for breast cancer * * * * Physician Interpretation * * * * #[id number] - [facility] SCREENING W CAROLYN BILATERAL DIGITAL SCREENING MAMMOGRAM TOMOSYNTHESIS WITH CAD: 04/14/2024 HISTORY: / Screening Mammogram-Patient reports NO symptoms. RESULT: TECHNIQUE: The study was acquired using full field digital technology and interpreted from soft copy. Digital Breast Tomosynthesis (DBT) images were obtained and used to assist in the interpretation of this examination. Current study was also evaluated with a Computer Aided Detection (CAD). Comparison is made to exams dated: 09/06/2022 mammogram, 08/22/2021 mammogram, 08/17/2020 mammogram - [facility], and 07/21/2019 mammogram - [facility]. The breasts are almost entirely fatty. No significant masses, calcifications, or other findings are seen in either breast. There has been no significant interval change. [facility] Provider, [facility] [place] - 04/15/2024 * * *Final Report* * * DATE OF EXAM: Apr 14 2024 5:30PM [facility] 0582 - [facility] SCREENING W CAROLYN / PROCEDURE REASON: Encounter for screening mammogram for breast cancer * * * * Physician Interpretation * * * * #[id number] - [facility] SCREENING W CAROLYN BILATERAL DIGITAL SCREENING MAMMOGRAM TOMOSYNTHESIS WITH CAD: 04/14/2024 HISTORY: / Screening Mammogram-Patient reports NO symptoms. RESULT: TECHNIQUE: The study was acquired using full field digital technology and interpreted from soft copy. Digital Breast Tomosynthesis (DBT) images were obtained and used to assist in the interpretation of this examination. Current study was also evaluated with a Computer Aided Detection (CAD). Comparison is made to exams dated: 09/06/2022 mammogram, 08/22/2021 mammogram, 08/17/2020 mammogram - [facility], and 07/21/2019 mammogram - [facility]. The breasts are almost entirely fatty. No significant masses, calcifications, or other findings are seen in either breast. There has been no significant interval change. IMPRESSION IMPRESSION: NEGATIVE There is no mammographic evidence of malignancy. A 1 year screening mammogram is recommended. Chichi aguilar/bhupinder:04/15/2024 15:17:05 Factory Lay Out Engineer(s): Luisito Craven)(M), [facility] letter sent: Normal over 40 Mammogram BI-RADS: Category 1: Negative Multiple national specialty organizations have released breast cancer screening guidelines for women at average risk for developing breast cancer - guidelines that are based on both evidence and opinion, yet differ on when to start and how often to screen for breast cancer. With representation from Breast Imaging, Internal Medicine, Women's Health, Family Medicine, and Medical/Surgical Oncology, the [facility] has carefully reviewed the data and reached the following consensus: 1) All women should engage in shared decision-making with their providers to decide when to start and how often to screen; 2) All women should have the opportunity to start screening mammography at age 40; 3) For women ages 45-55, we recommend annual screening mammograms; 4) For women ages 55 and over, we support both the transition from an annual to a biennial interval if this aligns more with patient's values and preferences, or continuation with annual screening; 5) All women should discuss with their providers when to stop screening mammograms. Fur Trimmer: Bhupinder Transcribe Date/Time: Apr 14 2024 4:47P Dictated by : CHICHI RUDD MD This examination was interpreted and the report reviewed and electronically signed by: CHICHI RUDD MD on Apr 15 2024 3:17PM EST [facility] DBT Breast - bilateral scree ningOrdered By: [facility] Provider on 04-15-2024 [facility] DBT Breast - bilateral scree ningon 04-14-2024 Radiology Study observation (narrative) [facility] SCREENING W TOMOon 04-14 [facility] SCREENING W CAROLYN * * *Final Report* * * DATE OF EXAM: Apr 14 2024 5:30PM [facility] 0582 - [facility] SCREENING W CAROLYN / PROCEDURE REASON: Encounter for screening mammogram for breast cancer * * * * Physician Interpretation * * * * #[id number] - [facility] SCREENING W CAROLYN BILATERAL DIGITAL SCREENING MAMMOGRAM TOMOSYNTHESIS WITH CAD: 04/14/2024 HISTORY: / Screening Mammogram-Patient reports NO symptoms. RESULT: TECHNIQUE: The study was acquired using full field digital technology and interpreted from soft copy. Digital Breast Tomosynthesis (DBT) images were obtained and used to assist in the interpretation of this examination. Current study was also evaluated with a Computer Aided Detection (CAD). Comparison is made to exams dated: 09/06/2022 mammogram, 08/22/2021 mammogram, 08/17/2020 mammogram - [facility], and 07/21/2019 mammogram - [facility]. The breasts are almost entirely fatty. No significant masses, calcifications, or other findings are seen in either breast. There has been no significant interval change. IMPRESSION: NEGATIVE There is no mammographic evidence of malignancy. A 1 year screening mammogram is recommended. Chichi aguilar/bhupinder:04/15/2024 15:17:05 Factory Lay Out Engineer(s): Luisito Craven (Zachariah)(M), [facility] letter sent: Normal over 40 Mammogram BI-RADS: Category 1: Negative Multiple national specialty organizations have released breast cancer screening guidelines for women at average risk for developing breast cancer - guidelines that are based on both evidence and opinion, yet differ on when to start and how often to screen for breast cancer. With representation from Breast Imaging, Internal Medicine, Women's Health, Family Medicine, and Medical/Surgical Oncology, the [facility] has carefully reviewed the data and reached the following consensus: 1) All women should engage in shared decision-making with their providers to decide when to start and how often to screen; 2) All women should have the opportunity to start screening mammography at age 40; 3) For women ages 45-55, we recommend annual screening mammograms; 4) For women ages 55 and over, we support both the transition from an annual to a biennial interval if this aligns more with patient's values and preferences, or continuation with annual screening; 5) All women should discuss with their providers when to stop screening mammograms. Fur Trimmer: Bhupinder Transcribe Date/Time: Apr 14 2024 4:47P Dictated by : CHICHI RUDD MD This examination was interpreted and the report reviewed and electronically signed by: CHICHI RUDD MD on Apr 15 2024 3:17PM EST [id number] Normal [facility] 25([place])D3 [facility] 2023 25-hydroxyvitamin D3 [Mass/Vol] 13.8 ng/mL Low 31.0-80.0 [facility] Comment on above: Order Comment: Speci men Type: BLOOD SPECIMENOrdering Facility: [facility] Address: [address] [place] [address] Result Comment: Clas sification of 25 [place] Vitamin D status: Deficiency/Insufficiency: < or = 30 ng/ml. Sufficiency/Optimal Levels: 31-80 ng/mL Toxicity: > 100 ng/mL. Test performed by chemiluminescent immunoassay. Performed By: #### 1 989-3 ####[facility] LABCLIA [id number] [place] [address] [place] ALBUMIN/CREATININE RATIO, UR INEon 03-19-2024 Albumin DL <= 20 mg/L (U) [Mass/Vol] 39.2 mg/L Normal [facility] Comment on above: Order Comment: Speci men Type: URINE SPECIMENOrdering Facility: [facility] Address: [address] [place] [address] Performed By: #### U ACR ####[facility] LABIA [id number] [place] [address] [place] Albumin/Creatinine (U) [Mass ratio] 26 mg/g Normal <30 [facility] Comment on above: Order Comment: Speci men Type: URINE SPECIMENOrdering Facility: [facility] Address: [address] [place] [address] Result Comment: Adul t Male and Female Nephrotic Criteria: <30 mg/g is considered normal to mildly increased 30-300 mg/g is considered moderately increased >300 mg/g is considered severely increased KDIGO. (2013). KDIGO 2012 Clinical Practice Guideline for the Evaluation and Management of Chronic Kidney Disease. Official Journal of the International Society of Nephrology, 3(1), 1-150. Performed By: #### U ACR ####[facility] LABIA [id number] [place] [address] [place] Creatinine (U) [Mass/Vol] 148.3 mg/dL Normal 20.0-300.0 [facility] Comment on above: Order Comment: Speci men Type: URINE SPECIMENOrdering Facility: [facility] Address: [address] [place] [address] Performed By: #### U ACR ####[facility] LABCLIA [id number] [place] [address] [place] CBC W Auto Differential pane l (Bld)on 03-19-2024 Basophils (Bld) [#/Vol] 0.05 10*3/uL Normal <0.11 [facility] Comment on above: Order Comment: Speci men Type: BLOOD SPECIMENOrdering Facility: [facility] Address: [address] [place] [address] Performed By: #### 5 7021-8 ####[facility] LABCLIA [id number] [place] [address] [place] Basophils/100 WBC (Bld) 0.9 % Normal [facility] Comment on above: Order Comment: Speci men Type: BLOOD SPECIMENOrdering Facility: [facility] Address: [address] [place] [address] Performed By: #### 5 7021-8 ####[facility] LABCLIA [id number] [place] [address] [place] Differential cell count method Nom (Bld) Auto Normal [facility] Comment on above: Order Comment: Speci men Type: BLOOD SPECIMENOrdering Facility: [facility] Address: [address] [place] [address] Performed By: #### 5 7021-8 ####[facility] LABCLIA [id number] [place] [address] [place] Eosinophils (Bld) [#/Vol] 0.15 10*3/uL Normal <0.46 [facility] Comment on above: Order Comment: Speci men Type: BLOOD SPECIMENOrdering Facility: [facility] Address: [address] [place] [address] Performed By: #### 5 7021-8 ####[facility] LABCLIA [id number] [place] [address] [place] Eosinophils/100 WBC (Bld) 2.7 % Normal [facility] Comment on above: Order Comment: Speci men Type: BLOOD SPECIMENOrdering Facility: [facility] Address: [address] [place] [address] Performed By: #### 5 7021-8 ####[facility] LABIA [id number] [place] [address] [place] Erythrocyte distribution width (RBC) [Ratio] 12.4 % Normal 11.5-15.0 [facility] Comment on above: Order Comment: Speci men Type: BLOOD SPECIMENOrdering Facility: [facility] Address: [address] [place] [address] Performed By: #### 5 7021-8 ####[facility] LABIA [id number] [place] [address] [place] Hematocrit (Bld) [Volume fraction] 38.9 % Normal 36.0-46.0 [facility] Comment on above: Order Comment: Speci men Type: BLOOD SPECIMENOrdering Facility: [facility] Address: [address] [place] [address] Performed By: #### 5 7021-8 ####[facility] LABIA [id number] [place] [address] [place] Hemoglobin (Bld) [Mass/Vol] 13.1 g/dL Normal 11.5-15.5 [facility] Comment on above: Order Comment: Speci men Type: BLOOD SPECIMENOrdering Facility: [facility] Address: [address] [place] [address] Performed By: #### 5 7021-8 ####[facility] LABIA [id number] [place] [address] [place] Immature granulocytes (Bld) [#/Vol] 10*3/uL Normal <0.10 [facility] Comment on above: Order Comment: Speci men Type: BLOOD SPECIMENOrdering Facility: [facility] Address: [address] [place] [address] Performed By: #### 5 7021-8 ####[facility] LABCLIA [id number] [place] [address] [place] Immature granulocytes/100 WBC (Bld) 0.2 % Normal [facility] Comment on above: Order Comment: Speci men Type: BLOOD SPECIMENOrdering Facility: [facility] Address: [address] [place] [address] Performed By: #### 5 7021-8 ####[facility] LABCLIA [id number] [place] [address] [place] Lymphocytes (Bld) [#/Vol] 2.45 10*3/uL Normal 1.00-4.00 [facility] Comment on above: Order Comment: Speci men Type: BLOOD SPECIMENOrdering Facility: [facility] Address: [address] [place] [address] Performed By: #### 5 7021-8 ####[facility] LABIA [id number] [place] [address] [place] Lymphocytes/100 WBC (Bld) 43.5 % Normal [facility] Comment on above: Order Comment: Speci men Type: BLOOD SPECIMENOrdering Facility: [facility] Address: [address] [place] [address] Performed By: #### 5 7021-8 ####[facility] LABCLIA [id number] [place] [address] [place] MCH (RBC) [Entitic mass] 31.6 pg Normal 26.0-34.0 [facility] Comment on above: Order Comment: Speci men Type: BLOOD SPECIMENOrdering Facility: [facility] Address: [address] [place] [address] Performed By: #### 5 7021-8 ####[facility] LABCLIA [id number] [place] [address] [place] MCHC (RBC) [Mass/Vol] 33.7 g/dL Normal 30.5-36.0 [facility] Comment on above: Order Comment: Speci men Type: BLOOD SPECIMENOrdering Facility: [facility] Address: [address] [place] [address] Performed By: #### 5 7021-8 ####[facility] LABCLIA [id number] [place] [address] [place] MCV (RBC) [Entitic vol] 94.0 fL Normal 80.0-100.0 [facility] Comment on above: Order Comment: Speci men Type: BLOOD SPECIMENOrdering Facility: [facility] Address: [address] [place] [address] Performed By: #### 5 7021-8 ####[facility] LABIA [id number] [place] [address] [place] Monocytes (Bld) [#/Vol] 0.49 10*3/uL Normal <0.87 [facility] Comment on above: Order Comment: Speci men Type: BLOOD SPECIMENOrdering Facility: [facility] Address: [address] [place] [address] Performed By: #### 5 7021-8 ####[facility] LABCLIA [id number] [place] [address] [place] Monocytes/100 WBC (Bld) 8.7 % Normal [facility] Comment on above: Order Comment: Speci men Type: BLOOD SPECIMENOrdering Facility: [facility] Address: [address] [place] [address] Performed By: #### 5 7021-8 ####[facility] LABIA [id number] [place] [address] [place] Neutrophils (Bld) [#/Vol] 2.48 10*3/uL Normal 1.45-7.50 [facility] Comment on above: Order Comment: Speci men Type: BLOOD SPECIMENOrdering Facility: [facility] Address: [address] [place] [address] Performed By: #### 5 7021-8 ####[facility] LABCLIA [id number] [place] [address] [place] Neutrophils/100 WBC (Bld) 44.0 % Normal [facility] Comment on above: Order Comment: Speci men Type: BLOOD SPECIMENOrdering Facility: [facility] Address: [address] [place] [address] Performed By: #### 5 7021-8 ####[facility] LABCLIA [id number] [place] [address] [place] Nucleated RBC (Bld) [#/Vol] 10*3/uL Normal <0.01 [facility] Comment on above: Order Comment: Speci men Type: BLOOD SPECIMENOrdering Facility: [facility] Address: [address] [place] [address] Performed By: #### 5 7021-8 ####[facility] LABIA [id number] [place] [address] [place] Nucleated RBC/100 WBC (Bld) [Ratio] 0.0 /100 WBC Normal [facility] Comment on above: Order Comment: Speci men Type: BLOOD SPECIMENOrdering Facility: [facility] Address: [address] [place] [address] Performed By: #### 5 7021-8 ####[facility] LABIA [id number] [place] [address] [place] Platelet mean volume (Bld) [Entitic vol] 9.9 fL Normal 9.0-12.7 [facility] Comment on above: Order Comment: Speci men Type: BLOOD SPECIMENOrdering Facility: [facility] Address: [address] [place] [address] Performed By: #### 5 7021-8 ####[facility] LABCLIA [id number] [place] [address] [place] Platelets (Bld) [#/Vol] 242 10*3/uL Normal 150-400 [facility] Comment on above: Order Comment: Speci men Type: BLOOD SPECIMENOrdering Facility: [facility] Address: [address] [place] [address] Performed By: #### 5 7021-8 ####[facility] LABCLIA [id number] [place] [address] [place] RBC (Bld) [#/Vol] 4.14 10*6/uL Normal 3.90-5.20 [facility] Comment on above: Order Comment: Speci men Type: BLOOD SPECIMENOrdering Facility: [facility] Address: [address] [place] [address] Performed By: #### 5 7021-8 ####[facility] LABCLIA [id number] [place] [address] [place] WBC (Bld) [#/Vol] 5.63 10*3/uL Normal 3.70-11.00 [facility] Comment on above: Order Comment: Speci men Type: BLOOD SPECIMENOrdering Facility: [facility] Address: [address] [place] [address] Performed By: #### 5 7021-8 ####[facility] LABIA [id number] [place] [address] [place] Comprehensive metabolic 2000 panelon 03-19-2024 Albumin [Mass/Vol] 4.1 g/dL Normal 3.9-4.9 [facility] Comment on above: Order Comment: Speci men Type: BLOOD SPECIMENOrdering Facility: [facility] Address: [address] [place] [address] Performed By: #### 2 4331-1, 2132-9, 27869-8 ####[facility] LABCLIA [id number] [place] [address] [place] ALP [Catalytic activity/Vol] 76 U/L Normal 34-123 [facility] Comment on above: Order Comment: Speci men Type: BLOOD SPECIMENOrdering Facility: [facility] Address: [address] [place] [address] Performed By: #### 2 4331-1, 2132-03, ####[facility]CL[facility] [id number] [place] [address] [place] ALT [Catalytic activity/Vol] 15 U/L Normal 7-38 [facility] Comment on above: Order Comment: Speci men Type: BLOOD SPECIMENOrdering Facility: [facility] Address: [address] [place] [address] Performed By: #### 2 4331-1, 2132-03, ####[facility]CL[facility] [id number] [place] [address] [place] Anion gap [Moles/Vol] 10 mmol/L Normal 8-15 [facility] Comment on above: Order Comment: Speci men Type: BLOOD SPECIMENOrdering Facility: [facility] Address: [address] [place] [address] Performed By: #### 2 4331-1, 2132-03, ####[facility]CL[facility] [id number] [place] [address] [place] AST [Catalytic activity/Vol] 15 U/L Normal 13-35 [facility] Comment on above: Order Comment: Speci men Type: BLOOD SPECIMENOrdering Facility: [facility] Address: [address] [place] [address] Performed By: #### 2 4331-1, 2132-03, ####[facility] [id number] [address] [address] [place] Bilirubin [Mass/Vol] 0.7 mg/dL Normal 0.2-1.3 [facility] Comment on above: Order Comment: Speci men Type: BLOOD SPECIMENOrdering Facility: [facility] Address: [address] [place] [address] Performed By: #### 2 4331-1, 2132-03, ####[facility]CL[facility] [id number] [address] [address] [place] Calcium [Mass/Vol] 9.1 mg/dL Normal 8.5-10.2 [facility] Comment on above: Order Comment: Speci men Type: BLOOD SPECIMENOrdering Facility: [facility] Address: [address] [place] [address] Performed By: #### 2 4331-1, 2132-03, ####[facility]CL[facility] [id number] [place] [id number] [place] Chloride [Moles/Vol] 106 mmol/L Normal 98-107 [facility] Comment on above: Order Comment: Speci men Type: BLOOD SPECIMENOrdering Facility: [facility] Address: [address] [place] [address] Performed By: #### 2 4331-1, 2132-03, ####[facility] [id number] [place] [id number] [place] CO2 [Moles/Vol] 26 mmol/L Normal 22-30 [facility] Comment on above: Order Comment: Speci men Type: BLOOD SPECIMENOrdering Facility: [facility] Address: [address] [place] [address] Performed By: #### 2 4331-1, 2132-03, ####[facility] [id number] [address] [address] [place] Creatinine [Mass/Vol] 0.47 mg/dL Low 0.58-0.96 [facility] Comment on above: Order Comment: Speci men Type: BLOOD SPECIMENOrdering Facility: [facility] Address: [address] [place] [address] Performed By: #### 2 4331-1, 9, 83470-8 ####[facility] LABIA [id number] [place] [address] [place] Creatinine and Glomerular filtration rate.predicted panel (S/P/Bld) 110 mL/min/1.73m??? Normal >=60 [facility] Comment on above: Order Comment: Yuliet angulo Type: BLOOD SPECIMENOrdering Facility: [facility] Address: [address] [place] [address] Result Comment: [place]wona mated Glomerular Filtration Rate (eGFR) is calculated using the 2020 CKD-EPI creatinine equation. This equation utilizes serum creatinine, sex, and age as parameters. The creatinine assay has traceable calibration to isotope dilution-mass spectrometry. Refer to KDIGO guidelines for clinical interpretation. In patients with unstable renal function, e.g. those with acute kidney injury, the eGFR may not accurately reflect actual GFR. Performed By: #### 2 4331-1, 2132-03, ####[facility] LABIA [id number] [place] [id number] [place] Glucose [Mass/Vol] 212 mg/dL High 74-99 [facility] Comment on above: Order Comment: Yuliet angulo Type: BLOOD SPECIMENOrdering Facility: [facility] Address: [address] [place] [address] Result Comment: The [place] Diabetes Association (ADA) provides guidance for cutoff values for fasting glucose and random glucose. The ADA defines fasting as no caloric intake for at least 8 hours. Fasting plasma glucose results between 100 to 125 mg/dL indicate increased risk for diabetes (prediabetes). Fasting plasma glucose results greater than or equal to 126 mg/dL meet the criteria for diagnosis of diabetes. In the absence of unequivocal hyperglycemia, results should be confirmed by repeat testing. In a patient with classic symptoms of hyperglycemia or hyperglycemic crisis, random plasma glucose results greater than or equal to 200 mg/dL meet the criteria for diagnosis of diabetes. Reference: Standards of Medical Care in Diabetes 2016, German Diabetes Association. Diabetes Care. 2016.39(Suppl 1). Performed By: #### 2 4331-1, 2132-03, ####[facility] [id number] [address] [address] [place] Potassium [Moles/Vol] 4.1 mmol/L Normal 3.7-5.1 [facility] Comment on above: Order Comment: Speci men Type: BLOOD SPECIMENOrdering Facility: [facility] Address: [address] [place] [address] Performed By: #### 2 4331-1, 2132-03, ####[facility]CL[facility] [id number] [address] [address] [place] Protein [Mass/Vol] 6.8 g/dL Normal 6.3-8.0 [facility] Comment on above: Order Comment: Speci men Type: BLOOD SPECIMENOrdering Facility: [facility] Address: [address] [place] [address] Performed By: #### 2 433-, 2132-03, ####[facility] LABIA [id number] [address] [address] [place] Sodium [Moles/Vol] 142 mmol/L Normal 136-144 [facility] Comment on above: Order Comment: Speci men Type: BLOOD SPECIMENOrdering Facility: [facility] Address: [address] [place] [address] Performed By: #### 2 4331-1, 2132-03, ####[facility] LABIA [id number] [address] [address] [place] Urea nitrogen [Mass/Vol] 7 mg/dL Normal 7-21 [facility] Comment on above: Order Comment: Speci men Type: BLOOD SPECIMENOrdering Facility: [facility] Address: [address] [place] [address] Performed By: #### 2 4331-1, 2132-03, ####[facility]CL[facility] [id number] [address] [place] HbA1c (Bld)on 03-19-2024 Average glucose Estimated from glycated hemoglobin (Bld) [Mass/Vol] 214 mg/dL Normal [facility] Comment on above: Order Comment: Yuliet angulo Type: BLOOD SPECIMENOrdering Facility: [facility] Address: [address] [place] [address] Result Comment: eAG: (Estimated average glucose) is a calculated value from HgbA1c and is contact center representative of the average blood glucose level in the last 2-3 month period. Performed By: #### 5 5454-3 ####[facility] LABIA [id number] [address] STATES [facility] HbA1c (Bld) [Mass fraction] 9.1 % High 4.3-5.6 [facility] Comment on above: Order Comment: Yuliet angulo Type: BLOOD SPECIMENOrdering Facility: [facility] Address: [address] [place] [address] Result Comment: Amer [place] Diabetes Association guidelines indicate that patients with HgbA1c in the range 5.7-6.4% are at increased risk for development of diabetes, and intervention by lifestyle modification may be beneficial. HgbA1c greater or equal to 6.5% is considered diagnostic of diabetes. Performed By: #### 5 5454-3 ####[facility] LABIA [id number] [address] [place] Lipid 1996 panelon 4 Cholesterol [Mass/Vol] 172 mg/dL Normal <200 [facility] Comment on above: Order Comment: Yuliet angulo Type: BLOOD SPECIMENOrdering Facility: [facility] Address: [address] [place] [address] Result Comment: <200 mg/dL, Desirable 200-239 mg/dL, Borderline high >239 mg/dL, High Performed By: #### 2 4331-1, 2132-03, ####[facility]CLIA [id number] [address] [place] Cholesterol in HDL [Mass/Vol] 40 mg/dL Normal >39 [facility] Comment on above: Order Comment: Yuliet kev Type: BLOOD SPECIMENOrdering Facility: [facility] Address: [address] [place] [address] Result Comment: 40-5 9 mg/dL, Acceptable >59 mg/dL, High: Negative risk factor for coronary heart disease <40 mg/dL, Low: Positive risk factor for coronary heart disease Performed By: #### 2 4331-1, 2132-03, ####[facility] LABCLIA [id number] [address] Cholesterol in LDL [Mass/Vol] 102 mg/dL High <100 [facility] Comment on above: Order Comment: Yuliet angulo Type: BLOOD SPECIMENOrdering Facility: [facility] Address: [address] [place] [address] Result Comment: <100 mg/dL, Optimal 100-129 mg/dL, Near optimal/above optimal 130-159 mg/dL, Borderline high 160-189 mg/dL, High >189 mg/dL, Very high Secondary prevention optimal LDL Cholesterol levels are recommended to be < 70 mg/dL Performed By: #### 2 4331-1, 2132-03, ####[facility] LABIA [id number] [address] [place] Cholesterol in LDL/Cholesterol in HDL [Mass ratio] 2.55 {ratio} High <2.54 [facility] Comment on above: Order Comment: Yazmini kev Type: BLOOD SPECIMENOrdering Facility: [facility] Address: [address] [place] [address] Result Comment: Kayla ortiz: 1. National Cholesterol Education Program ATP III Guideline At-A-Glance Quick Desk Reference: National Heart, Lung, and Blood [place]. National Institutes of Health. 2001: NIH Publication No. 01-3305. 2. An International Atherosclerosis Society position paper: global recommendations for the management of dyslipidemia: executive summary, Atherosclerosis. 2014: 232(2):410-413. Performed By: #### 2 4331-1, 2132-03, ####[facility] LABCLIA [id number] [place] [address] [place] Cholesterol in VLDL [Mass/Vol] 30 mg/dL High <30 [facility] Comment on above: Order Comment: Yazmini men Type: BLOOD SPECIMENOrdering Facility: [facility] Address: [address] [place] [address] Performed By: #### 2 4331-1, 2132-03, ####[facility] LABCLIA [id number] [place] [address] [place] Cholesterol non HDL [Mass/Vol] 132 mg/dL High <130 [facility] Comment on above: Order Comment: Yuliet angulo Type: BLOOD SPECIMENOrdering Facility: [facility] Address: [address] [place] [address] Result Comment: <130 mg/dL, Optimal 130-159 mg/dL, Near optimal/above optimal 160-189 mg/dL, Borderline high 190-219 mg/dL, High >219 mg/dL, Very high Secondary prevention optimal non HDL Cholesterol levels are recommended to be <100 mg/dL Performed By: #### 2 433-1, 2132-03, ####[facility] LABCLIA [id number] [place] [address] [place] Cholesterol.total/Choles terol in HDL [Mass ratio] 4.30 {ratio} Normal <5.10 [facility] Comment on above: Order Comment: Yuliet angulo Type: BLOOD SPECIMENOrdering Facility: [facility] Address: [address] [place] [address] Performed By: #### 2 4331-1, 2132-03, ####[facility] LABCLIA [id number] [place] [address] [place] FASTING TIME 12 hrs Normal [facility] Comment on above: Order Comment: Speci men Type: BLOOD SPECIMENOrdering Facility: [facility] Address: [address] [place] [address] Performed By: #### 2 4331-1, 2132-03, ####[facility] LABCLIA [id number] [address] [place] Triglyceride [Mass/Vol] 150 mg/dL High <150 [facility] Comment on above: Order Comment: Speci men Type: BLOOD SPECIMENOrdering Facility: [facility] Address: [address] [place] [address] Result Comment: <150 mg/dL, Normal 150-199 mg/dL, Borderline high 200-499 mg/dL, High >499 mg/dL, Very high Performed By: #### 2 4331-1, 2132-03, ####[facility]CLIA [id number] [address] OF [facility] Vit B12 [facility] [place] 024 Cobalamin (Vitamin B12) [Mass/Vol] 344 pg/mL Normal 232-1245 [facility] Comment on above: Order Comment: Speci men Type: BLOOD SPECIMENOrdering Facility: [facility] Address: [address] [place] [address] Performed By: #### 2 4331-1, 2132-03, ####[facility]CLIA [id number] [address] [place] CNOVon 03-17-2024 CNOV Office Visit (FAMPWS) LINA ISAAC ([id number]) 1965 F Date Time Provider Department 03/17/24 2:40 PM JESE ZHENGPGONZALO During your visit today, we recorded the following information about you: Temperature Pulse Respiration Blood pressure 97.1 degrees 80/minute 16/minute 136/80 Weight 93.9 kg Norm Jese Keys, DO 03/18/2024 10:18 PM Signed Patient presents with: F/U 3 Month HPI: Lina Isaac is a 58 year old female who presents to the office today for review of health conditions. Concerns today: Overall she feels she is doing better Still some fatigue but she has stressors with trying to help out with her 2 young grandsons as well as granddaughters with mental health concerns. She is using her CGM for glucose monitoring and feeling that this has been beneficial to help her know where her glucose readings are Ms. Isaac has past history of diabetes. Since our last visit she denies excessive thirst or increased frequency of urination, chest pain or dyspnea , new or unusual visual symptoms, and low sugar/hypoglycemic reactions. Depression- no. Follows a diabetic diet some of the time. She is compliant with medication(s) and is tolerating med(s) without any side effects. She reports checking her glucose on a once a day schedule with sugars in the fasting <200s range. Patient's last HgA1C was Hemoglobin A1C (%) Date Value 08/27/2023 11.2 08/14/2021 11.2 05/09/2021 12.1 Hemoglobin A1C (POCT) (%) Date Value 11/27/2023 9.3 05/27/2023 11.4 ) Last Ophthalmology exam was within the past 12 months Ms. Isaac reports history of hyperlipidemia. Current therapy includes atorvastatin (Lipitor) 40 mg. Denies side effects of muscle weakness or achiness. Her most recent lipid panels are reviewed. Cholesterol, Total (mg/dL) Date Value 08/27/2023 175 05/09/2021 205 HDL Cholesterol (mg/dL) Date Value 08/27/2023 52 05/09/2021 54 LDL Cholesterol (mg/dL) Date Value 08/27/2023 102 05/09/2021 127 LDL Cholesterol, Nonfasting (mg/dL) Date Value 02/19/2023 152 Triglyceride (mg/dL) Date Value 08/27/2023 106 05/09/2021 120 Ms. Isaac indicates a history of hypertension and states that she is feeling well and denies any symptoms referable to elevated blood pressure. Specifically denies headache, chest pain, palpitations, dyspnea, and peripheral edema. Patient denies any side effects of her medication(s) and is compliant with their regimen. Last 3 Encounter BP Readings: Date: BP: 03/17/2024 136/80 11/27/2023 120/60 09/20/2023 124/80 She watches her diet for sodium, low fat and low cholesterol some of the time. She does not check BP's generally. Lina gets minimal exercise. PAST MEDICAL HISTORY No date: Asthma 11/05/2012: Bowel perforation 04/2016: C. difficile colitis 10/07/2019: Closed nondisplaced fracture of proximal phalanx of lesser toe of left foot with routine healing 03/30/2021: COVID-19 10/2013: Diabetes mellitus type 2 in obese Comment: A1C 6.8% 01/02/2019: Dyslipidemia 08/11/2015: Essential hypertension No date: GERD (gastroesophageal reflux disease) 06/26/2013: Incisional hernia 10/17/2012: Injury to rectosigmoid colon 10/2013: Low HDL (under 40) No date: Nephrolithiasis No date: Osteoarthrosis, unspecified whether generalized or localized, other specified sites Comment: Osteoarthritis Bilateral knees No date: Spasm of muscle No date: Tobacco use disorder Comment: quit 2012 No date: Unspecified hereditary and idiopathic peripheral neuropathy 11/27/2012: Vaginal fistula PAST SURGICAL HISTORY 1986: DELIVERY ONLY Comment: , low cervical 2001: DELIVERY ONLY Comment: , low transverse 08/16/2015: COLONOSCOPY Comment: Dr. Ramirez 09/17/2022: COLONOSCOPY Comment: repeat in 10 years 09/17/2022: EGD 06/22/2013: HERNIA REPAIR HX 2011: HYSTERECTOMY HX Comment: fistula with intestine No date: HYSTEROSCOPY, DIAGNOSTIC (SEPARATE Comment: Hysteroscopy/Novasur e 10/09/2012: LAP HYSTERECTOMY FOR UTERUS 250G OR LESS Comment: with vaginal sling, LSO, right salpingectomy No date: LAPS ABD PRTMANDOMENTUM DX W/WO SPEC BR/WA SPX Comment: Laparoscopy 05/2017: LAPS REPAIR HERNIA EXCEPT INCAL/INGUN REDUCIBLE 2002: LIG/TRNSXJ FLP TUBE ABDL/VAG APPR UNI/BI Comment: Tubal ligation 01/30/2005: PAST SURGICAL HISTORY OF Comment: Left shoulder arthroscopy and debridement 02/2004: PAST SURGICAL HISTORY OF Comment: 3rd toe left foot 03/14/2010: PAST SURGICAL HISTORY OF Comment: right total knee replacement 03/14/2009: PAST SURGICAL HISTORY OF Comment: left total knee replacement 01/23/2013: PAST SURGICAL HISTORY OF Comment: Ileostomy closure. 01/06/2016: PAST SURGICAL HISTORY OF; Left Comment: left ring trigger release 06/22/2013: RPR 1ST INCAL/VNT HERNIA INCARCERATED C (more content not included)... Normal [facility] CNOVon 03-05-2024 CNOV Office Visit (PHMEWO) LINA ISAAC ([id number]) 1965 F Date Time Provider Department 03/05/24 1:30 PM SUSANA GARCIA [facility] During your visit today, we recorded the following information about you: Susana Garcia RPh 03/05/2024 3:26 PM Signed Primary Care Pharmacy Visit CC (Reason for Consult): (E11.65) Uncontrolled type 2 diabetes mellitus with hyperglycemia (HCC) (primary encounter diagnosis) Goal(s): A1c <7% Last Collaborating Provider Visit: 11/27/[address] Norm Del Angel Poncho is a 58 year old female presenting for follow up visit in person. Patient consents to pharmacy collaborative practice agreement. Last Pharmacy Visit: 01/09/24 - Trulicity switched to Ozempic Interim Events: - 01/28/24 - switched back to Trulicity d/t side effects with Ozempic HPI: Reports doing well now States switching to Ozempic was unbearable. Experience awful side effects compared to how she tolerated Trulicity. Switched back to Trulicity about 2 weeks after stopping Ozempic, has now had about 1 month back on Trulicity and tolerating well again In the last couple weeks has not had to add from sliding scale to Novolog with meals Current DM Medications: Metformin 1000 mg BID Trulicity 4.5 mg once weekly on Sundays Tresiba 110 units once daily every morning Novolog 16 units + sliding scale with meals 200-230 = add 2 units 230-260 = add 4 units 260-300 = add 6 units >300 = add 8 units GLYCEMIC CONTROL: Glucometer present at visit: Yes Hypoglycemia: No CGM Data Past medical history reviewed. ALLERGIES Allergen Reactions Omnicef [Cefdinir] Itching Vaginitis severe Proventil [Albutero* Vomiting Can not tolerate generic albuterol 08/22/12 - [place]. Tramadol Hives Current Outpatient Medications Medication Sig Dispense Refill dulaglutide (TRULICITY) 4.5 mg/0.5 mL pen injector Inject 4.5 mg subcutaneously one time a week. 6 mL 4 ibuprofen (MOTRIN) 800 mg tablet TAKE 1 TABLET BY MOUTH EVERY 8 HOURS NEEDED FOR PAIN WITH FOOD 60 tablet 1 mupirocin (BACTROBAN) 2 % ointment Apply to affected area every 12 hours as needed (rash, skin lesions). 66 g 2 cyanocobalamin (VITAMIN B-12) 1,000 mcg tab Take 2 tablets by mouth once daily. 180 tablet 1 lisinopril (ZESTRIL) 10 mg tablet Take 1 tablet by mouth once daily. 90 tablet 3 Calcium Citrate-Vitamin D3 (CITRACAL+D) 315 mg-6.25 mcg (250 unit) tab Take 1 tablet by mouth once daily. 30 tablet 3 insulin degludec (TRESIBA FLEXTOUCH U-200) 200 unit/mL (3 mL) injection Inject 110 Units subcutaneously daily at bedtime. benzonatate (TESSALON PERLES) 100 mg capsule Take 1 capsule by mouth three times a day as needed for cough. 30 capsule 1 Cholecalciferol, Vitamin D3, 125 mcg (5,000 unit) cap Take 1 capsule by mouth once daily. 90 capsule 3 Oral Medication Containers (SHARPS CONTAINER) [facility] Use to collect sharps as directed. 1 Each 0 Blood-Glucose Sensor (FREESTYLE MICHI 3 SENSOR) ingrid Apply new sensor to back of upper arm every 14 days 6 Each 4 flash glucose scanning reader (FREESTYLE MICHI 3 READER) Use to monitor blood glucose continuously 1 Each 0 insulin aspart U-100 (NOVOLOG U-100 INSULIN ASPART) 100 unit/mL Inject 16 units subcutaneously as directed plus sliding scale with meals. Insulin [place], Disposable, (UNIFINE PENTIPS) 31 gauge x 3/16 Use as directed 4 times daily with insulin 400 Each 3 flash glucose sensor (FREESTYLE MICHI 14 DAY SENSOR) kit Apply sensor to back of arm to check blood sugars as directed. Change sensor every 2 weeks and rotate arms. 6 Each 3 famotidine (PEPCID) 20 mg tablet Take 1 tablet by mouth twice daily. 180 tablet 3 FLUoxetine (PROZAC) 20 mg capsule Take 1 capsule by mouth once daily. In the morning, for depression 90 capsule 1 atorvastatin (LIPITOR) 40 mg tablet Take 1 tablet by mouth once daily. 90 tablet 3 aspirin, enteric coated (ASPIRIN, ENTERIC COATED) 81 mg EC tablet Take 1 tablet by mouth once daily. 90 tablet 3 gabapentin (NEURONTIN) 100 mg capsule Take 1-2 capsules by mouth daily at bedtime for 30 days. For foot pain 60 capsule 5 alcohol swabs (BD SINGLE USE SWABS REGULAR) Use as directed 4 to 5 times daily to check blood sugars and with insulin injections 360 Each 3 metFORMIN (GLUCOPHAGE) 1,000 mg tablet Take 1 tablet by mouth twice daily. 180 tablet 3 diclofenac (VOLTAREN ARTHRITIS PAIN) 1 % topical gel Apply 2 g to affected area four times daily. 100 g 1 glucagon (BAQSIMI) 3 mg/actuation nasal spray Use 1 [place] in the nose as needed for low blood sugar. May repeat after 15 minutes using a new device if there is no response. 1 Each 3 polyethylene glycol 3350 (MIRALAX) 17 gram/dose powder 1 capful daily in the morning 1700 g 3 albuterol HFA (VENTOLIN HFA) 90 mcg/actuation inhaler Inhale 2 Puffs as instructed every 4 hours as needed. For wheezing/shortness of (more content not included)... Normal [facility] HEMOGLOBIN A1C (POC)on 11-26 HbA1c (Bld) [Mass fraction] 9.3 % Abnormal 4.3 - 5.6 % [facility] Comment on above: Location:[facility], [address] [place] [address], [place], [address] Point of care (POC) Hemoglobin A1c (HGBA1C) testing is intended to assess glucose control and provide a management tool for patients known to have diabetes and their healthcare providers. Target HGBA1C levels may depend on specific clinical circumstances. POC HGBA1C is not intended for use as a diagnostic or screening test; laboratory-based testing should be used for diagnostic purposes. The following information is supplemental and may not be applicable to specific diabetes management situations: The POC device hr payroll coordinator provides a normal range of 4.2% to 6.5% for the HGBA1C POC test. However, the [place] Diabetes Association guidelines indicate that patients with HGBA1C in the range of 5.7% to 6.4% are at increased risk for development of diabetes and that intervention by lifestyle modification may be beneficial. A HGBA1C level greater than or equal to 6.5% is considered diagnostic of diabetes, pending confirmatory testing. Use of HGBA1C testing to evaluate glucose control may not be appropriate for patients with hemoglobin variants or other conditions (e.g. anemia) that alter red blood cell lifespan. Interpretation and review of laboratory results Abnormal [facility] COVID & INFLUENZA A/B & RSV NAAT, ROUTINEon 09-20-2023 FLUAV RNA JHONY+probe Ql (Unsp spec) Not detected Not Detected [facility] FLUBV RNA JHONY+probe Ql (Unsp spec) Not detected Not Detected [facility] RSV A RNA JHONY+probe Ql (Unsp spec) Not detected Not Detected [facility] SARS-CoV-2 (COVID-19) RNA JHONY+probe Ql (Resp) Not detected See comment [facility] CBC W Auto Differential pane l (Bld)on 08-27-2023 Basophils (Bld) [#/Vol] 0.05 10*3/uL <0.11 k/uL [facility] Basophils/100 WBC (Bld) 0.8 % [facility] Differential cell count method Nom (Bld) Auto [facility] Eosinophils (Bld) [#/Vol] 0.14 10*3/uL <0.46 k/uL [facility] Eosinophils/100 WBC (Bld) 2.3 % [facility] Erythrocyte distribution width (RBC) [Ratio] 11.7 % 11.5 - 15.0 % [facility] Hematocrit (Bld) [Volume fraction] 39.1 % 36.0 - 46.0 % [facility] Hemoglobin (Bld) [Mass/Vol] 13.1 g/dL 11.5 - 15.5 g/dL [facility] Immature granulocytes (Bld) [#/Vol] <0.10 k/uL [facility] Immature granulocytes/100 WBC (Bld) 0.3 % [facility] Lymphocytes (Bld) [#/Vol] 2.38 10*3/uL 1.00 - 4.00 k/uL [facility] Lymphocytes/100 WBC (Bld) 38.6 % [facility] MCH (RBC) [Entitic mass] 30.4 pg 26. 0 - 34.0 pg [facility] MCHC (RBC) [Mass/Vol] 33.5 g/dL 30.5 - 36.0 g/dL [facility] MCV (RBC) [Entitic vol] 90.7 fL 80.0 - 100.0 fL [facility] Monocytes (Bld) [#/Vol] 0.48 10*3/uL <0.87 k/uL [facility] Monocytes/100 WBC (Bld) 7.8 % [facility] Neutrophils (Bld) [#/Vol] 3.10 10*3/uL 1.45 - 7.50 k/uL [facility] Neutrophils/100 WBC (Bld) 50.2 % [facility] Nucleated RBC (Bld) [#/Vol] <0.01 k/uL [facility] Nucleated RBC/100 WBC (Bld) [Ratio] 0.0 /100 WBC [facility] Platelet mean volume (Bld) [Entitic vol] 10.1 fL 9.0 - 12.7 fL [facility] Platelets (Bld) [#/Vol] 270 10*3/uL 150 - 400 k/uL [facility] RBC (Bld) [#/Vol] 4.31 10*6/uL 3.90 - 5.2 0 m/uL [facility] WBC (Bld) [#/Vol] 6.17 10*3/uL 3.70 - 11. 00 k/uL [facility] VITAMIN B12 BLOODon 08-27-19 24 Cobalamin (Vitamin B12) [Mass/Vol] 413 pg/mL 232 - 1,245 pg/mL [facility] No Panel Informationon 05-28 [facility] US LEG VEIN DVT UNL VAS LABo n 05-28-2023 US LEG VEIN DVT UNL VAS LAB Non-Invasive Vascular Laboratory [facility] Lower Extremity Venous Duplex Unilateral - Right Date of service/time: 05/28/2023 7:16:56 AM Name: MS. LINA ISAAC Date of : 1965 Age: 57 years Gender: F Medical History Tobacco: Current Diabetes: Yes Prior deep vein thrombosis: Yes Clinical Indication Lower extremity swelling and lower extremity pain. TECHNIQUE -------- A venous duplex ultrasound examination was performed, including grayscale imaging with compression maneuvers and color Doppler and spectral Doppler examination with augmentation maneuvers and response to respiration of the below mentioned veins. FINDINGS -------- RIGHT SIDE Distal external iliac vein Doppler: normal flow. Compression: normal. Common femoral vein Doppler: normal flow. Compression: normal. Femoral vein Doppler: normal flow. Compression: normal. Popliteal vein Doppler: normal flow. Compression: normal. Posterior tibial veins Compression: normal. Peroneal veins Compression: normal. Great saphenous vein Compression: normal. Small saphenous vein Compression: normal. Soleal vein Compression: normal. Gastrocnemius vein Compression: normal. Profunda vein Doppler: normal flow. Compression: normal. LEFT SIDE Common femoral vein Doppler: normal flow. Compression: normal. IMPRESSION Preliminary results communicated via EPIC RIGHT SIDE - DEEP VEINS Negative for acute deep vein thrombosis. RIGHT SIDE - SUPERFICIAL VEINS Negative for superficial thrombophlebitis in the great saphenous vein and small saphenous vein. LEFT SIDE - DEEP VEINS Spontaneous and respirophasic flow noted in the common femoral vein. Technologist: Silva Beauchamp T Ordering physician: JESE ZHENG Interpreting physician: Kishore San MD Final CC [facility] Image : [id number] [email or web address] See Link below for Image Normal [facility] HEMOGLOBIN A1C (POC)on 05-27 HbA1c (Bld) [Mass fraction] 11.4 % Abnormal 4.2 - 5.6 % [facility] CT CHEST WO IVCONon 02-27-20 [facility] Comprehensive metabolic 2000 panelon 02-20-2023 Albumin [Mass/Vol] 4.4 g/dL 3.9 - 4.9 g/dL [facility] ALP [Catalytic activity/Vol] 93 U/L 34 - 123 U/L [facility] ALT [Catalytic activity/Vol] 16 U/L 7 - 38 U/L [facility] Anion gap [Moles/Vol] 11 mmol/L 9 - 18 mmol/L [facility] AST [Catalytic activity/Vol] 15 U/L 13 - 35 U/L [facility] Bilirubin [Mass/Vol] 0.8 mg/dL 0.2 - 1 .3 mg/dL [facility] Calcium [Mass/Vol] 10.1 mg/dL 8.5 - 10. 2 mg/dL [facility] Chloride [Moles/Vol] 103 mmol/L 97 - 10 5 mmol/L [facility] CO2 [Moles/Vol] 25 mmol/L 22 - 30 mmol/L [facility] Creatinine [Mass/Vol] 0.48 mg/dL Low 0.58 - 0.96 mg/dL [facility] Estimated Glomerular Filtration Rate 110 mL/min/1.73m >=60 mL/min/1.73m [facility] Glucose [Mass/Vol] 225 mg/dL High 74 - 99 mg/dL [facility] Potassium [Moles/Vol] 3.9 mmol/L 3.7 - 5.1 mmol/L [facility] Protein [Mass/Vol] 8.0 g/dL 6.3 - 8.0 g/dL [facility] Sodium [Moles/Vol] 139 mmol/L 136 - 144 mmol/L [facility] Urea nitrogen [Mass/Vol] 11 mg/dL 7 - 21 mg/d L [facility] LIPID PANEL, NONFASTINGon Cholesterol [Mass/Vol] 226 mg/dL High <200 mg/dL [facility] HDL Cholesterol, Nonfasting 48 mg/dL >39 mg/dL [facility] LDL Cholesterol, Nonfasting 152 mg/dL High <100 mg/dL [facility] LDL/HDL Ratio, Nonfasting 3.17 mg/dL High <2.54 mg/dL [facility] Non HDL Cholesterol, Nonfasting 178 mg/dL High <130 mg/dL [facility] Total Chol/HDL Ratio, Nonfasting 4.71 mg/dL <5.10 mg/dL [facility] Triglycerides, Nonfasting 132 mg/dL <150 mg/dL [facility] VLDL Cholesterol, Nonfasting 26 mg/dL <30 mg/dL [facility] T4 FREE/FREE THYROXon 2022 Free T4 [Mass/Vol] 1.5 ng/dL 0.9 - 1.7 ng/dL [facility] TSH BLDon 02-20-2023 TSH Qn 1.120 m[IU]/L 0.270 - 4.200 mIU/L [facility] VITAMIN B12 BLOODon 02-21-20 Cobalamin (Vitamin B12) [Mass/Vol] 416 pg/mL 232 - 1,245 pg/mL [facility] VITAMIN D 25 HYDROXYon 02-20 25-hydroxyvitamin D3 [Mass/Vol] 14.9 ng/mL Low 31.0 - 80.0 ng/mL [facility] CBC W Auto Differential pane l (Bld)on 02-19-2023 Basophils (Bld) [#/Vol] 0.07 10*3/uL <0.11 k/uL [facility] Basophils/100 WBC (Bld) 1.0 % [facility] Differential cell count method Nom (Bld) Auto [facility] Eosinophils (Bld) [#/Vol] 0.12 10*3/uL <0.46 k/uL [facility] Eosinophils/100 WBC (Bld) 1.8 % [facility] Erythrocyte distribution width (RBC) [Ratio] 11.9 % 11.5 - 15.0 % [facility] Hematocrit (Bld) [Volume fraction] 43.1 % 36.0 - 46.0 % [facility] Hemoglobin (Bld) [Mass/Vol] 14.4 g/dL 11.5 - 15.5 g/dL [facility] Immature granulocytes (Bld) [#/Vol] <0.10 k/uL [facility] Immature granulocytes/100 WBC (Bld) 0.3 % [facility] Lymphocytes (Bld) [#/Vol] 3.31 10*3/uL 1.00 - 4.00 k/uL [facility] Lymphocytes/100 WBC (Bld) 49.3 % [facility] MCH (RBC) [Entitic mass] 30.0 pg 26. 0 - 34.0 pg [facility] MCHC (RBC) [Mass/Vol] 33.4 g/dL 30.5 - 36.0 g/dL [facility] MCV (RBC) [Entitic vol] 89.8 fL 80.0 - 100.0 fL [facility] Monocytes (Bld) [#/Vol] 0.54 10*3/uL <0.87 k/uL [facility] Monocytes/100 WBC (Bld) 8.0 % [facility] Neutrophils (Bld) [#/Vol] 2.66 10*3/uL 1.45 - 7.50 k/uL [facility] Neutrophils/100 WBC (Bld) 39.6 % [facility] Nucleated RBC (Bld) [#/Vol] <0.01 k/uL [facility] Nucleated RBC/100 WBC (Bld) [Ratio] 0.0 /100 WBC [facility] Platelet mean volume (Bld) [Entitic vol] 10.1 fL 9.0 - 12.7 fL [facility] Platelets (Bld) [#/Vol] 268 10*3/uL 150 - 400 k/uL [facility] RBC (Bld) [#/Vol] 4.80 10*6/uL 3.90 - 5.2 0 m/uL [facility] WBC (Bld) [#/Vol] 6.72 10*3/uL 3.70 - 11. 00 k/uL [facility] HbA1c (Bld)on 02-19-2023 Average glucose Estimated from glycated hemoglobin (Bld) [Mass/Vol] 280 mg/dL [facility] HbA1c (Bld) [Mass fraction] 11.4 % High 4.3 - 5.6 % [facility] XR CHEST 2V FRONTAL/LATon [facility] XR Chest PA and Lateralon IMPRESSION: Slight prominence of the pulmonary markings in the bilateral lungs. Fur Trimmer: SANTOSH Transcribe Date/Time: Feb 19 2023 3:30P Dictated by : BENNY PANDA MD This examination was interpreted and the report reviewed and electronically signed by: BENNY PANDA MD on Feb 19 2023 3:31PM [facility] DIVISION OF RADIOLOGY * * *Final Report* * * DATE OF EXAM: Feb 19 2023 1:56PM WOX [id number] - XR CHEST 2V FRONTAL/LAT / PROCEDURE REASON: multiple diagnoses * * * * Physician Interpretation * * * * EXAMINATION: CHEST RADIOGRAPH (2 VIEW FRONTAL & LATERAL) CLINICAL HISTORY: SOB (shortness of breath) Wheezing MQ: XC2_6 EXAM DATE/TIME: 02/19/2023 1:56 PM COMPARISON: Chest x-ray on 11/08/2022 RESULT: Lines, tubes, and devices: None. Lungs and pleura: Slight prominence of the pulmonary markings in the mid to lower lung zones. There appears be interval improvement of bilateral reticulonodular opacities. No mass lesion seen. No pleural effusions or pneumothorax. Cardiomediastinal silhouette: Stable cardiomediastinal silhouette. Bones and soft tissues: There are degenerative changes in the spine. DIVISION OF RADIOLOGY Provider, [facility] - 02/19/2023 * * *Final Report* * * DATE OF EXAM: Feb 19 2023 1:56PM WOX [id number] - XR CHEST 2V FRONTAL/LAT / PROCEDURE REASON: multiple diagnoses * * * * Physician Interpretation * * * * EXAMINATION: CHEST RADIOGRAPH (2 VIEW FRONTAL & LATERAL) CLINICAL HISTORY: SOB (shortness of breath) Wheezing MQ: XC2_6 EXAM DATE/TIME: 02/19/2023 1:56 PM COMPARISON: Chest x-ray on 11/08/2022 RESULT: Lines, tubes, and devices: None. Lungs and pleura: Slight prominence of the pulmonary markings in the mid to lower lung zones. There appears be interval improvement of bilateral reticulonodular opacities. No mass lesion seen. No pleural effusions or pneumothorax. Cardiomediastinal silhouette: Stable cardiomediastinal silhouette. Bones and soft tissues: There are degenerative changes in the spine. IMPRESSION IMPRESSION: Slight prominence of the pulmonary markings in the bilateral lungs. Fur Trimmer: SANTOSH Transcribe Date/Time: Feb 19 2023 3:30P Dictated by : BENNY PANDA MD This examination was interpreted and the report reviewed and electronically signed by: BENNY PANDA MD on Feb 19 2023 3:31PM EST [facility] Radiology Study observation (narrative) [facility] XR Chest PA and LateralOrder ed By: [facility] Provider on 02-19-2023 [facility] NM HEPATOBILIARY W EF AND/OR RXon 11-29-2022 [facility] URINE CULTUREon 11-10-2022 Bacteria identified Cx Nom (U) 10,000 -<50,000 CFU/ml Normal urogenital mary ann [facility] AMYLASE BLDon 11-09-2022 Amylase [Catalytic activity/Vol] 46 U/L 30 - 104 U/L [facility] C-REACTIVE PROTEIN (CRP)on 0 11-09-2022 CRP [Mass/Vol] <0.9 mg/dL [facility] Comprehensive metabolic 2000 panelon 11-09-2022 Albumin [Mass/Vol] 4.3 g/dL 3.9 - 4.9 g/dL [facility] ALP [Catalytic activity/Vol] 88 U/L 34 - 123 U/L [facility] ALT [Catalytic activity/Vol] 12 U/L 7 - 38 U/L [facility] Anion gap [Moles/Vol] 10 mmol/L 9 - 18 mmol/L [facility] AST [Catalytic activity/Vol] 14 U/L 13 - 35 U/L [facility] Bilirubin [Mass/Vol] 0.9 mg/dL 0.2 - 1 .3 mg/dL [facility] Calcium [Mass/Vol] 9.8 mg/dL 8.5 - 10. 2 mg/dL [facility] Chloride [Moles/Vol] 103 mmol/L 97 - 10 5 mmol/L [facility] CO2 [Moles/Vol] 27 mmol/L 22 - 30 mmol/L [facility] Creatinine [Mass/Vol] 0.55 mg/dL Low 0.58 - 0.96 mg/dL [facility] Estimated Glomerular Filtration Rate 106 mL/min/1.73m >=60 mL/min/1.73m [facility] Glucose [Mass/Vol] 131 mg/dL High 74 - 99 mg/dL [facility] Potassium [Moles/Vol] 4.2 mmol/L 3.7 - 5.1 mmol/L [facility] Protein [Mass/Vol] 7.5 g/dL 6.3 - 8.0 g/dL [facility] Sodium [Moles/Vol] 140 mmol/L 136 - 144 mmol/L [facility] Urea nitrogen [Mass/Vol] 12 mg/dL 7 - 21 mg/d L [facility] ESR Westergren method (Bld) [Velocity]on 11-09-2022 ESR (Bld) [Velocity] 15 mm/h 0 - 20 mm/hr [facility] LIPASE BLDon 11-09-2022 Lipase [Catalytic activity/Vol] 14 U/L Low 16 - 61 U/L [facility] CBC panel Auto (Bld)on 11-08 Erythrocyte distribution width (RBC) [Ratio] 12.3 % 11.5 - 15.0 % [facility] Hematocrit (Bld) [Volume fraction] 42.5 % 36.0 - 46.0 % [facility] Hemoglobin (Bld) [Mass/Vol] 14.3 g/dL 11.5 - 15.5 g/dL [facility] MCH (RBC) [Entitic mass] 30.2 pg 26. 0 - 34.0 pg [facility] MCHC (RBC) [Mass/Vol] 33.6 g/dL 30.5 - 36.0 g/dL [facility] MCV (RBC) [Entitic vol] 89.9 fL 80.0 - 100.0 fL [facility] Nucleated RBC (Bld) [#/Vol] <0.01 k/uL [facility] Platelet mean volume (Bld) [Entitic vol] 9.7 fL 9.0 - 12.7 fL [facility] Platelets (Bld) [#/Vol] 293 10*3/uL 150 - 400 k/uL [facility] RBC (Bld) [#/Vol] 4.73 10*6/uL 3.90 - 5.2 0 m/uL [facility] WBC (Bld) [#/Vol] 6.61 10*3/uL 3.70 - 11. 00 k/uL [facility] D-DIMERon 11-08-2022 Fibrin D-dimer FEU (PPP) [Mass/Vol] 370 ng/mL FEU <500 ng/mL FEU [facility] Fibrin D-dimer FEU (PPP) [Ma ss/Vol]on 11-08-2022 D Dimer Age-related Cutoff 580 ng/mL FEU [facility] HEMOGLOBIN A1C (POC)on 11-08 HbA1c (Bld) [Mass fraction] 10.7 % Abnormal 4.2 - 5.6 % [facility] No Panel Informationon 11-08 [facility] UA DIP, URINE (POC)on 2022 BILIRUBIN UA (POCT) Negative Negative [facility] CLARITY UA (POCT) Clear [facility] COLOR UA (POCT) Yellow [facility] GLUCOSE UA (POCT) Negative Negative mg/dL [facility] HEMOGLOBIN/BLOOD UA (POCT) Negative Negative [facility] KETONE UA (POCT) Negative Negative mg/dL [facility] LEUKOCYTES UA (POCT) Trace Abnormal Negative [facility] NITRITE UA (POCT) Negative Negative [facility] PH UA (POCT) 5.5 4.5 - 8.0 [facility] Protein Ql (U) Trace Abnormal Negative mg/dL [facility] SPECIFIC GRAVITY UA (POCT) >=1.030 1.005 - 1.030 [facility] UROBILINOGEN UA (POCT) 0.2 E.U./dL Jennifer l E.U./dL [facility] UA DIP, URINE (POC)on 2022 BILIRUBIN UA (POCT) Negative Negative [facility] CLARITY UA (POCT) Clear [facility] COLOR UA (POCT) Yellow [facility] GLUCOSE UA (POCT) 250 mg/dL Abnormal Negative mg/dL [facility] HEMOGLOBIN/BLOOD UA (POCT) Trace-lysed Abnormal Negative [facility] KETONE UA (POCT) Negative Negative mg/dL [facility] LEUKOCYTES UA (POCT) Negative Negative [facility] NITRITE UA (POCT) Negative Negative [facility] PH UA (POCT) 6.0 4.5 - 8.0 [facility] Protein Ql (U) 30 mg/dL Abnormal Negative mg/dL [facility] SPECIFIC GRAVITY UA (POCT) >=1.030 1.005 - 1.030 [facility] UROBILINOGEN UA (POCT) 0.2 E.U./dL Jennifer l E.U./dL [facility] ANES POSTPROC EVALon 023 ANES POSTPROC EVAL HNO ID: [id number] Author: Elena Salmon MD Service: Anesthesiology Author Type: Anesthesiologist Type: Anesthesia Postprocedure Evaluation Filed: 09/17/2022 9:46 AM Note Text: POST ANESTHESIA EVALUATION NOTE : 1965 Procedure Summary Date: 09/17/22 Room / Location: [facility] Endoscopy Anesthesia Start: 837 Anesthesia Stop: 921 Procedures: EGD DIAGNOSTIC COLONOSCOPY DIAGNOSTIC Diagnosis: Abdominal pain, unspecified abdominal location Change in bowel habits (Generalized abdominal pain) (Generalized abdominal pain) Scheduled Providers: Brandy Ramirez MD; Mauricio Marie APRN.RN DISCHARGE; Elena Salmon MD Responsible Provider: Elena Salmon MD Anesthesia Type: MAC ASA Status: 3 Anesthesia Type: MAC Last Vitals Vitals Value Taken Time BP 112/72 09/17/22 0930 Temp 36 ?C (96.8 ?F) 09/17/22 0919 Pulse 09/17/22 0946 Resp 18 09/17/22 0930 SpO2 100 % 09/17/22 0930 Post Anesthesia Patient Status Patient Evaluation: PACU. PACU/ICU Patient Condition: stable. Anticipated Disposition: phase 2 then home. Neurological Status: sleepy but arousable. Pulmonary Status: breathing comfortably on room air Airway Control: returned to baseline unsupported. Cardiovascular Status: stable. Pain Management: clinically adequate - multimodal analgesia pain management approach Postoperative Hydration: acceptable. Intraoperative Events: no significant anesthesia events Post Operative Nausea/Vomiting Status: no significant post operative nausea or vomiting Recommendation: continue current plan of care. Anesthesia Observations No Documentation SIGNATURE: Elena Salmon MD PATIENT NAME: Lina Isaac DATE: September 17, 2022 TIME: 9:46 AM CSN: [id number] Normal [facility] ANES PRE-OPon 09-17-2022 ANES PRE-OP HNO ID: [id number] Author: Elena Salmon MD Service: Anesthesiology Author Type: Anesthesiologist Type: Anesthesia Preprocedure Evaluation Filed: 09/17/2022 7:30 AM Note Text: ANESTHESIOLOGY DAY OF SURGERY NOTE : 1965 Procedure Information Date/Time: 09/17/2230 Scheduled providers: Brandy Ramirez MD; Mauricio Marie APRN.RN DISCHARGE; Elena Salmon MD Procedures: EGD DIAGNOSTIC COLONOSCOPY DIAGNOSTIC Location: [facility] Endoscopy Estimated body mass index is 30.41 kg/m? as calculated from the following: Height as of 10/12/21: 172.7 cm (5' 8). Weight as of 07/24/22: 90.7 kg (200 lb). Most recent hematocrit and potassium results: Hematocrit 38.8 04/25/2022 Potassium 4.2 07/24/2022 Relevant Problems CARDIO (+) Essential hypertension ENDO (+) Diabetes mellitus type 2 in obese (HCC) (+) Type 2 diabetes mellitus with peripheral neuropathy (HCC) GI (+) GERD (gastroesophageal reflux disease) PULMONARY (+) Shortness of breath I - PHYSICAL EVALUATION AIRWAY Patient intubated: No. Tracheostomy tube not present Mallampati: II. TM distance: >3 FB. Neck ROM: full ROM without neurological symptoms. Mouth opening: adequate. Short neck: no. Thick neck: no [place] present: no DENTAL Dental findings: teeth intact. Additional exam findings: yes. CARDIOVASCULAR Rhythm: regular Rate: normal PULMONARY Breath sounds clear to auscultation. ABDOMINAL Obese: obesity present. II - ANESTHESIA PLAN ASA Score: 3 Anesthetic Plan: MAC The patient is not a current smoker. Beta Noris Monitoring Plan Monitoring plan: standard ASA. Post Procedure Analgesic Plan Postoperative analgesic plan: multimodal analgesia. Informed Consent Anesthetic risks, benefits, alternatives, personnel and consent discussed: yes. Patient / Responsible Constitution Party agrees to proceed: yes Patient / Surrogate agrees to blood products: blood products not planned DNR status not reviewed with patient and/or family prior to surgery. Significant changes in the patient condition since the History and Physical, not otherwise documented in primary service progress note: no. Potential Anesthesia issues that may suggest increased risk of complications or contraindication to planned procedure: none. No vitals data found for the desired time range. Outpatient Medications as of 09/17/2022 Medication Sig - Calcium Citrate-Vitamin D3 (CITRACAL+D) 315 mg-6.25 mcg (250 unit) tab Take 1 tablet by mouth once daily. - insulin degludec (TRESIBA) 200 unit/mL (3 mL) injection Inject 116 Units subcutaneously every morning. - Oral Medication Containers (SHARPS CONTAINER) misc Use to collect sharps as directed. - ibuprofen (MOTRIN) 800 mg tablet Take 1 tablet by mouth every 8 hours as needed for Pain. Take with food. - metFORMIN (GLUCOPHAGE) 1,000 mg tablet Take 1 tablet by mouth twice daily. - mupirocin (BACTROBAN) 2 % ointment Apply to affected area every 12 hours as needed (rash, skin lesions). - gabapentin (NEURONTIN) 100 mg capsule Take 1-2 capsules by mouth daily at bedtime for 30 days. For foot pain - TRULICITY 4.5 mg/0.5 mL pen injector Inject 4.5 mg subcutaneously one time a week. - diclofenac (VOLTAREN ARTHRITIS PAIN) 1 % topical gel Apply 2 g to affected area four times daily. - insulin aspart U-100 (NOVOLOG FLEXPEN U-100 INSULIN) 100 unit/mL (3 mL) Inject 20 Units subcutaneously three times daily before meals. Plus sliding scale. TDD 84 units/day. - insulin aspart U-100 (NOVOLOG) 100 unit/mL (3 mL) Inject 18 Units subcutaneously three times daily before meals. Plus sliding scale. TDD 84 units/day. - glucagon (BAQSIMI) 3 mg/actuation nasal spray Use 1 [place] in the nose as needed for low blood sugar. May repeat after 15 minutes using a new device if there is no response. - Cholecalciferol, Vitamin D3, 125 mcg (5,000 unit) cap Take 1 capsule by mouth once daily. - cyanocobalamin (VITAMIN B-12) 1,000 mcg tab Take 2 tablets by mouth once daily. - famotidine (PEPCID) 20 mg tablet Take 1 tablet by mouth twice daily. - atorvastatin (LIPITOR) 40 mg tablet Take 1 tablet by mouth once daily. - flash glucose sensor (FREESTYLE MICHI 14 DAY SENSOR) kit Apply sensor to back of arm to check blood sugars as directed. Change sensor every 2 weeks and rotate arms. - aspirin, enteric coated (ASPIRIN, ENTERIC COATED) 81 mg EC tablet Take 1 tablet by mouth once daily. - alcohol swabs (BD SINGLE USE SWABS REGULAR) Use as directed 4 to 5 times daily to check blood sugars and with insulin injections - divalproex DR (DEPAKOTE) 125 mg EC tablet TAKE 1 TABLET BY MOUTH TWICE DAILY - divalproex DR (DEPAKOTE) 250 mg EC tablet TAKE 1 TABLET BY MOUTH TWICE DAILY - polyethylene glycol 3350 (MIRALAX) 17 gram/dose powder 1 capful daily in the morning - lisinopril (ZESTRIL, PRINIVIL) 10 mg tablet Take 1 tablet by mouth once daily. - albuterol HFA (VENTOLIN HFA (more content not included)... Normal [facility] Colonoscopyon 09-17-2022 Colonoscopy [facility] Gastrointestinal Endoscopy Patient Name: Lina Isaac Procedure Date: 09/17/2022 8:52 AM Date of : 1965 Admit Type: Outpatient Age: 56 Room: [facility] Gender: Female Note Status: Finalized Attending MD: Brandy Rmairez MD Procedure: Colonoscopy Indications: Generalized abdominal pain Providers: Brandy Ramirez MD Patient Profile: This is a 56 year old female. Refer to note in patient chart for documentation of history and physical. Last Colonoscopy: several years ago. Referring Physician: Brandy Ramirez MD (Referring MD) Medicines: Monitored Anesthesia Care Complications: No immediate complications. Requesting Provider: Procedure: Pre-Anesthesia Assessment: - Prior to the procedure, a History and Physical was performed, and patient medications and allergies were reviewed. The patient is competent. The risks and benefits of the procedure and the sedation options and risks were discussed with the patient. All questions were answered and informed consent was obtained. Patient identification and proposed procedure were verified by the physician, the nurse and the monogram technician in the procedure room. Mental Status Examination: alert and oriented. Respiratory Examination: clear to auscultation. Prophylactic Antibiotics: The patient does not require prophylactic antibiotics. Prior Anticoagulants: The patient has taken no anticoagulant or antiplatelet agents. ASA Grade Assessment: III - A patient with severe systemic disease. After reviewing the risks and benefits, the patient was deemed in satisfactory condition to undergo the procedure. The anesthesia plan was to use monitored anesthesia care (MAC). Immediately prior to administration of medications, the patient was re-assessed for adequacy to receive sedatives. The heart rate, respiratory rate, oxygen saturations, blood pressure, adequacy of pulmonary ventilation, and response to care were monitored throughout the procedure. The physical status of the patient was re-assessed after the procedure. After I obtained informed consent, the scope was passed under direct vision. Throughout the procedure, the patient's blood pressure, pulse, and oxygen saturations were monitored continuously. The Colonoscope was introduced through the anus and advanced to the cecum, identified by the appendiceal orifice, ileocecal valve and palpation. The colonoscopy was performed without difficulty. The patient tolerated the procedure well. The quality of the bowel preparation was fair. Scope Withdrawal Time: 0 hours 3 minutes 58 seconds Moderate Sedation: MAC anesthesia was administered by the anesthesia team. Total Procedure Duration: 0 hours 21 minutes 2 seconds Findings: The perianal and digital rectal examinations were normal. A moderate amount of stool was found in the entire colon, interfering with visualization. The exam was otherwise without abnormality on direct and retroflexion views. Impression: - Preparation of the colon was fair. - Stool in the entire examined colon. - The examination was otherwise normal on direct and retroflexion views. - No specimens collected. Recommendation: - Discharge patient to home. - Resume previous diet. - Continue present medications. - Repeat colonoscopy in 10 years for screening purposes. - Return to my office in 1 week. - Patient has a contact number available for emergencies. The signs and symptoms of potential delayed complications were discussed with the patient. Return to normal activities tomorrow. Written discharge instructions were provided to the patient. Procedure Code(s): --- Professional --- 31350, Colonoscopy, flexible; diagnostic, including collection of specimen(s) by brushing or washing, when performed (separate procedure) CPT copyright 2020 [employer]. All rights reserved. The codes documented in this report are preliminary and upon otc clerk review may be revised to meet current compliance requirements. Attending Participation: I personally performed the entire procedure. Scope In: 8:54:19 AM Scope Out: 9:15:21 AM MD Brandy Gutiérrez MD 09/17/2022 9:27:16 AM This report has been signed electronically by Brandy Ramirez MD Number of Addenda: 0 Note Initiated On: 09/17/2022 8:52 AM Estimated Blood Loss: Estimated blood loss: none. Normal [facility] HISTORY PHYSICALon HISTORY PHYSICAL HNO ID: [id number] Author: Brandy Ramirez MD Service: General Surgery Author Type: Physician Type: HANDP Filed: 09/17/2022 7:15 AM Note Text: HISTORY AND PHYSICAL Lina Isaac 1965 REFERRING PHYSICIAN: CHIEF COMPLAINT: abdomen and right sided pain HPI: The patient is a 56 year old female referred for endoscopy. Lina notes she tripped and fell at home against a baby gate/partition. With her history of multiple incisional hernia repairs she states she normally tries not to fall directly on her abdomen. She was unable to rotate and landed against her anterior abdomen 2 weeks previously. She initially noted the pain was more in the periumbilical area but now seems to be more severe over the past 2 weeks and now tends to radiate back to her right flank area. The patient was taking multiple nonsteroidals approximately 100 mg at a time with only mild relief. The patient now notes that she has more diffuse complaints she notes nausea and vomiting. The vomiting is yellow without being blood-tinged. She notes that she is also having discomfort attempting to move her bowels notes painful bowel movements and has been passing flatus. She notes worsening constipation has been taking lots of MiraLAX. She initially denied signs of blood or dark stools but realizes and now admits that she really does not examine her stools. Lina has undergone prior endoscopy. She last underwent upper and lower endoscopy in 2016. Due to her symptoms a CT scan of the abdomen pelvis was obtained. This demonstrated no acute changes. The patient is being seen by me today at the request of Dr. Jese Zheng DO for my opinion and advice regarding abdominal pain after a fall, epigastric complaints change in bowel habits constipation. PAST MEDICAL HISTORY PAST MEDICAL HISTORY Diagnosis Date Asthma Bowel perforation 11/05/2012 C. difficile colitis 04/2016 Closed nondisplaced fracture of proximal phalanx of lesser toe of left foot with routine healing 10/07/2019 COVID-19 03/30/2021 Diabetes mellitus type 2 in obese (HCC) 10/2013 A1C 6.8% Dyslipidemia 01/02/2019 Essential hypertension 08/11/2015 GERD (gastroesophageal reflux disease) Incisional hernia 06/26/2013 Injury to rectosigmoid colon 10/17/2012 Low HDL (under 40) 10/2013 Nephrolithiasis Osteoarthrosis, unspecified whether generalized or localized, other specified sites Osteoarthritis Bilateral knees Spasm of muscle Tobacco use disorder quit 2012 Unspecified hereditary and idiopathic peripheral neuropathy 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 Ramirez HERNIA REPAIR HX 06/22/13 HYSTERECTOMY HX 2011 fistula with intestine HYSTEROSCOPY, DIAGNOSTIC (SEPARATE Hysteroscopy/Novasur e LAP HYSTERECTOMY FOR UTERUS 250G OR LESS 10/09/2012 with vaginal sling, LSO, right salpingectomy LAPS ABD PRTMANDOMENTUM DX W/WO SPEC BR/WA SPX Laparoscopy LAPS REPAIR HERNIA EXCEPT INCAL/INGUN REDUCIBLE 05/2017 LIG/TRNSXJ FLP TUBE ABDL/VAG APPR UNI/BI 2001 Tubal ligation PAST SURGICAL HISTORY OF 01/30/05 Left shoulder arthroscopy and debridement PAST SURGICAL HISTORY OF 02/22 3rd toe left foot PAST SURGICAL HISTORY OF 03/14/2010 right total knee replacement PAST SURGICAL HISTORY OF 03/14/2009 left total knee replacement PAST SURGICAL HISTORY OF 01/23/2013 Ileostomy closure. PAST SURGICAL HISTORY OF Left 6-17-16 left ring trigger release RPR 1ST INCAL/VNT HERNIA INCARCERATED 06/22/2013 at ileostomy site - 11x[address] mesh RPR RECRT INCAL/VNT HERNIA INCARCERATED 07/23/14 at midline' RPR RECRT INCAL/VNT HERNIA INCARCERATED 10/11/14 - recurrent small bowel resection, enterotomy CURRENT MEDICATIONS Current Outpatient Medications Medication Sig insulin aspart U-100 (NOVOLOG FLEXPEN U-100 INSULIN) 100 unit/mL (3 mL) Inject 20 Units subcutaneously three times daily before meals. Plus sliding scale. TDD 84 units/day. insulin aspart U-100 (NOVOLOG) 100 unit/mL (3 mL) Inject 18 Units subcutaneously three times daily before meals. Plus sliding scale. TDD 84 units/day. mupirocin (BACTROBAN) 2 % ointment Apply to affected area every 12 hours as needed (rash, skin lesions). diclofenac (VOLTAREN ARTHRITIS PAIN) 1 % topical gel Apply 2 g to affected area four times daily. glucagon (BAQSIMI) 3 mg/actuation nasal spray Use 1 [place] in the nose as needed for low blood sugar. May repeat after 15 minutes using a new device if there is no response. Cholecalciferol, Vitamin D3, 125 mcg (5,000 unit) cap Take 1 capsule by mouth once daily. cyanocobalamin (VITAMIN B-12) 1,000 mcg tab Take 2 tablets by mouth once daily. famotidine (PEPCID) 20 mg tablet Take 1 tablet by mouth twice daily. calcium citrate-vitamin (more content not included)... Normal [facility] SURGICAL PATHOLOGYon 023 CASE REPORT [facility] Comment on above: Order Comment: Yuliet angulo Type: TISSUE SPECIMEN Ordering Facility: [facility] [place] Address: [address] [place] [address] Result Comment: Surg ical Pathology Report Case: [id number] Authorizing Provider: Brandy aRmirez MD Collected: 09/17/2022 08:49 AM Ordering Location: [facility] Endoscopy Received: 09/17/2022 10:11 AM Pathologist: Di Morelos MD Specimen: ANTRUM (STOMACH) BIOPSY Performed By: #### S #### [facility] CLIA [id number] [address] [place] [address] FINAL DIAGNOSIS [facility] Comment on above: Order Comment: Yuliet angulo Type: TISSUE SPECIMEN Ordering Facility: [facility] [place] Address: [address] [place] [address] Result Comment: Marquita omer antrum, biopsy: - Antral mucosa with no significant diagnostic alteration. - No morphologic evidence of Helicobacter pylori organisms. Performed By: #### S #### [facility] CLIA [id number] [address] [place] [address] FINAL PERFORMING LAB Normal [facility] Comment on above: Order Comment: Yuliet angulo Type: TISSUE SPECIMEN Ordering Facility: [facility] [place] Address: [address] [address] Result Comment: Diag nostic interpretation performed at [facility], [address] [place] [address] CLIA# [id number] [employer] Specialist: Davian Connolly M.D. Performed By: #### S #### [facility] CLIA [id number] [address] [place] [address] FERNANDA GROSS DESCRIPTION Normal [facility] Comment on above: Order Comment: Speci men Type: TISSUE SPECIMEN Ordering Facility: [facility] [place] Address: [address] [place], [place] [address] [address] Result Comment: Bren Castro NTRUM (STOMACH) BIOPSY Received in formalin is one piece of nathan, soft tissue measuring 0.2 x 0.2 x 0.2 cm. Totally submitted in one cassette. Gross examination performed at [address] 09/17/2022 3:47 PM Performed By: #### S #### [facility] CLIA [id number] [address] [place] [address] Upper GI endoscopyon 023 Upper GI endoscopy [facility] Gastrointestinal Endoscopy Patient Name: Lina Isaac Procedure Date: 09/17/2022 8:35 AM Date of : 1965 Admit Type: Outpatient Age: 56 Room: [facility] Gender: Female Note Status: Finalized Attending MD: Brandy Ramirez MD Procedure: Upper GI endoscopy Indications: Generalized abdominal pain Providers: Brandy Ramirez MD Patient Profile: This is a 56 year old female. Refer to note in patient chart for documentation of history and physical. Referring Physician: Brandy Ramirez MD (Referring MD) Medicines: Monitored Anesthesia Care Complications: No immediate complications. Requesting Provider: Procedure: Pre-Anesthesia Assessment: - Prior to the procedure, a History and Physical was performed, and patient medications and allergies were reviewed. The patient is competent. The risks and benefits of the procedure and the sedation options and risks were discussed with the patient. All questions were answered and informed consent was obtained. Patient identification and proposed procedure were verified by the physician, the nurse and the monogram technician in the procedure room. Mental Status Examination: alert and oriented. Respiratory Examination: clear to auscultation. Prophylactic Antibiotics: The patient does not require prophylactic antibiotics. Prior Anticoagulants: The patient has taken no anticoagulant or antiplatelet agents. ASA Grade Assessment: III - A patient with severe systemic disease. After reviewing the risks and benefits, the patient was deemed in satisfactory condition to undergo the procedure. The anesthesia plan was to use monitored anesthesia care (MAC). Immediately prior to administration of medications, the patient was re-assessed for adequacy to receive sedatives. The heart rate, respiratory rate, oxygen saturations, blood pressure, adequacy of pulmonary ventilation, and response to care were monitored throughout the procedure. The physical status of the patient was re-assessed after the procedure. After obtaining informed consent, the endoscope was passed under direct vision. Throughout the procedure, the patient's blood pressure, pulse, and oxygen saturations were monitored continuously. The was introduced through the mouth, and advanced to the jejunum. The upper GI endoscopy was accomplished without difficulty. The patient tolerated the procedure well. Moderate Sedation: MAC anesthesia was administered by the anesthesia team. Total Procedure Duration: 0 hours 3 minutes 54 seconds Findings: The examined jejunum was normal. The examined duodenum was normal. Scattered minimal inflammation characterized by erosions and erythema was found in the entire examined stomach. Biopsies were taken with a cold forceps for Helicobacter pylori testing. The examined esophagus was normal. A small hiatal hernia was present. Impression: - Normal examined jejunum. - Normal examined duodenum. - Gastritis. Biopsied. - Normal esophagus. - Small hiatal hernia. Recommendation: - Discharge patient to home. - Resume previous diet. - Continue present medications. - Return to my office in 2 weeks. Procedure Code(s): --- Professional --- 93491, Esophagogastroduoden oscopy, flexible, transoral; with biopsy, single or multiple CPT copyright 2020 [employer]. All rights reserved. The codes documented in this report are preliminary and upon otc clerk review may be revised to meet current compliance requirements. Attending Participation: I personally performed the entire procedure. Scope In: 8:46:30 AM Scope Out: 8:50:24 AM MD Brandy Gutiérrez MD 09/17/2022 9:22:36 AM This report has been signed electronically by Brandy Ramirez MD Number of Addenda: 0 Note Initiated On: 09/17/2022 8:35 AM Estimated Blood Loss: Estimated blood loss: none. Normal [facility] CHANTELL SCREENING W TOMOon 09-[address] [facility] [address] ABD/PEL WO IVCONon 2021 [facility] UA DIP, URINE (POC)on 2021 BILIRUBIN UA (POCT) Negative Negative [facility] CLARITY UA (POCT) Clear [facility] COLOR UA (POCT) Yellow [facility] GLUCOSE UA (POCT) >=1000 Abnormal Negative mg/dL [facility] HEMOGLOBIN/BLOOD UA (POCT) Trace-intact Abnormal Negative [facility] KETONE UA (POCT) Trace Negative mg/dL [facility] LEUKOCYTES UA (POCT) Negative Negative [facility] NITRITE UA (POCT) Negative Negative [facility] PH UA (POCT) 5.5 4.5 - 8.0 [facility] Protein Ql (U) Negative Negative mg/dL [facility] SPECIFIC GRAVITY UA (POCT) 1.020 1.005 - 1.030 [facility] UROBILINOGEN UA (POCT) 0.2 E.U./dL Jennifer l E.U./dL [facility] DXA-AXIAL SKELETONon 022 [facility] XR Foot - left AP and Latera l and obliqueon 12-31-2021 IMPRESSION: No acute abnormality. Fur Trimmer: SANTOSH Transcribe Date/Time: Dec 31 2021 4:08P Dictated by : OMID HOLLOWAY MD This examination was interpreted and the report reviewed and electronically signed by: OMID HOLLOWAY MD on Dec 31 2021 4:11PM EST [place]NOT[facility]U _DIVISION OF RADIOLOGY * * *Final Report* * * DATE OF EXAM: Dec 30 2021 10:31AM WOX 5336 - XR FOOT 3V AP/LAT/OBL LT / PROCEDURE REASON: multiple diagnoses * * * * Physician Interpretation * * * * PROCEDURE: Left foot INDICATION: Ingrown left greater toenail Localized swelling of left foot Pain of left heel Injury of left heel, subsequent encounter.Pt. states she stepped on a pin a few months ago. Pain Lt heel, TECHNIQUE: XR FOOT 3V AP/LAT/OBL LT COMPARISON: 10/29/2019 FINDINGS: Stable position of screw within the 3rd metatarsal head. No acute fracture or dislocation. Mild osteoarthritic change at the 1st and 3rd MCP joints. Plantar and dorsal calcaneal spurs. No soft tissue foreign body. ZZZ_DO_NOT_U SE_DIVISION OF RADIOLOGY Provider, [facility] [place] - 12/31/2021 * * *Final Report* * * DATE OF EXAM: Dec 30 2021 10:31AM WOX 5336 - XR FOOT 3V AP/LAT/OBL LT / PROCEDURE REASON: multiple diagnoses * * * * Physician Interpretation * * * * PROCEDURE: Left foot INDICATION: Ingrown left greater toenail Localized swelling of left foot Pain of left heel Injury of left heel, subsequent encounter.Pt. states she stepped on a pin a few months ago. Pain Lt heel, TECHNIQUE: XR FOOT 3V AP/LAT/OBL LT COMPARISON: 10/29/2019 FINDINGS: Stable position of screw within the 3rd metatarsal head. No acute fracture or dislocation. Mild osteoarthritic change at the 1st and 3rd MCP joints. Plantar and dorsal calcaneal spurs. No soft tissue foreign body. IMPRESSION IMPRESSION: No acute abnormality. Fur Trimmer: SANTOSH Transcribe Date/Time: Dec 31 2021 4:08P Dictated by : OMID HOLLOWAY MD This examination was interpreted and the report reviewed and electronically signed by: OMID HOLLOWAY MD on Dec 31 2021 4:11PM EST [facility] XR Foot - left AP and Latera l and obliqueOrdered By: Ccf Provider on 12-31-2021 [facility] XR Foot - left AP and Latera l and obliqueon 12-30-2021 Radiology Study observation (narrative) [facility] No Panel Informationon 11-14 IMPRESSION: No acute osseous injury identified. Fur Trimmer: SANTOSH Transcribe Date/Time: Nov 14 2021 11:33A Dictated by : TYRESE ESPINOZA MD This examination was interpreted and the report reviewed and electronically signed by: TYRESE ESPINOZA MD on Nov 14 2021 11:34AM EST [facility]ZZ_DO_NOT_U SE_DIVISION OF RADIOLOGY Radiology Study observation (narrative) [facility] No Panel InformationOrdered By: Ccf Provider on 11-14-2021 [facility] XR Hand - left PA and Latera l and Obliqueon 11-14-2021 * * *Final Report* * * DATE OF EXAM: Nov 14 2021 11:08AM WOX 5345 - XR HAND 3V PA/LAT/OBL LT / PROCEDURE REASON: multiple diagnoses * * * * Physician Interpretation * * * * CLINICAL INDICATION: Pain. TECHNIQUE: 3 view radiographic study of the left hand and left wrist. COMPARISON: None. FINDINGS: No acute fracture or dislocation identified. Mild degenerative changes of the distal interphalangeal joints with mild joint space narrowing. ZZZ_DO_NOT_U SE_DIVISION OF RADIOLOGY Provider, [facility] - 11/14/2021 * * *Final Report* * * DATE OF EXAM: Nov 14 2021 11:08AM WOX 5345 - XR HAND 3V PA/LAT/OBL LT / PROCEDURE REASON: multiple diagnoses * * * * Physician Interpretation * * * * CLINICAL INDICATION: Pain. TECHNIQUE: 3 view radiographic study of the left hand and left wrist. COMPARISON: None. FINDINGS: No acute fracture or dislocation identified. Mild degenerative changes of the distal interphalangeal joints with mild joint space narrowing. IMPRESSION IMPRESSION: No acute osseous injury identified. Fur Trimmer: PSYCHIATRICJacki Transcribe Date/Time: Nov 14 2021 11:33A Dictated by : TYRESE ESPINOZA MD This examination was interpreted and the report reviewed and electronically signed by: TYRESE ESPINOZA MD on Nov 14 2021 11:34AM EST [facility] XR Wrist - left PA and Later al and Obliqueon 11-14-2021 * * *Final Report* * * DATE OF EXAM: Nov 14 2021 11:08AM WOX 5270 - XR WRIST 3V PA/LAT/OBL LT / PROCEDURE REASON: multiple diagnoses * * * * Physician Interpretation * * * * CLINICAL INDICATION: Pain. TECHNIQUE: 3 view radiographic study of the left hand and left wrist. COMPARISON: None. FINDINGS: No acute fracture or dislocation identified. Mild degenerative changes of the distal interphalangeal joints with mild joint space narrowing. ZZZ_DO_NOT_U SE_DIVISION OF RADIOLOGY Provider, [facility] - 11/14/2021 * * *Final Report* * * DATE OF EXAM: Nov 14 2021 11:08AM WOX 5270 - XR WRIST 3V PA/LAT/OBL LT / PROCEDURE REASON: multiple diagnoses * * * * Physician Interpretation * * * * CLINICAL INDICATION: Pain. TECHNIQUE: 3 view radiographic study of the left hand and left wrist. COMPARISON: None. FINDINGS: No acute fracture or dislocation identified. Mild degenerative changes of the distal interphalangeal joints with mild joint space narrowing. IMPRESSION IMPRESSION: No acute osseous injury identified. Fur Trimmer: [facility] Transcribe Date/Time: Nov 14 2021 11:33A Dictated by : TYRESE ESPINOZA MD This examination was interpreted and the report reviewed and electronically signed by: TYRESE ESPINOZA MD on Nov 14 2021 11:34AM EST [facility] CT ABD/PEL WO IVCONon 2021 [facility] XR Abdomen Supine and Uprigh ton 04-10-2021 IMPRESSION: 1. Nonobstructive bowel gas pattern. 2. Patchy opacities in the periphery of the visualized lower lung zones. Clinical correlation for possible viral pneumonia is advised.. Fur Trimmer: [facility] Transcribe Date/Time: Apr 10 2021 4:34P Dictated by : TYRESE ESPINOZA MD This examination was interpreted and the report reviewed and electronically signed by: TYRESE ESPINOZA MD on Apr 10 2021 4:36PM EST DIVISION OF RADIOLOGY * * *Final Report* * * DATE OF EXAM: Apr 10 2021 4:33PM WOX 5356 - XR ABD 2V SUPINE W UPR/DECUB/CTL / PROCEDURE REASON: Generalized abdominal pain * * * * Physician Interpretation * * * * CLINICAL INDICATION: Abdominal pain TECHNIQUE: Supine and upright frontal radiographs of the abdomen COMPARISON: Abdominal radiograph dated August 07, 2018 FINDINGS: Patchy opacities in the periphery of the visualized lower lung zones. Nonobstructive bowel gas pattern. No significant stool burden. No gross pneumoperitoneum. Surgical staple line in the left abdomen. Atherosclerotic calcification of the vasculature. DIVISION OF RADIOLOGY Provider, [facility] [place] - 04/10/2021 * * *Final Report* * * DATE OF EXAM: Apr 10 2021 4:33PM WOX 5356 - XR ABD 2V SUPINE W UPR/DECUB/CTL / PROCEDURE REASON: Generalized abdominal pain * * * * Physician Interpretation * * * * CLINICAL INDICATION: Abdominal pain TECHNIQUE: Supine and upright frontal radiographs of the abdomen COMPARISON: Abdominal radiograph dated August 07, 2018 FINDINGS: Patchy opacities in the periphery of the visualized lower lung zones. Nonobstructive bowel gas pattern. No significant stool burden. No gross pneumoperitoneum. Surgical staple line in the left abdomen. Atherosclerotic calcification of the vasculature. IMPRESSION IMPRESSION: 1. Nonobstructive bowel gas pattern. 2. Patchy opacities in the periphery of the visualized lower lung zones. Clinical correlation for possible viral pneumonia is advised.. Fur Trimmer: PSYCHIATRICJacki Transcribe Date/Time: Apr 10 2021 4:34P Dictated by : TYRESE ESPINOZA MD This examination was interpreted and the report reviewed and electronically signed by: TYRESE ESPINOZA MD on Apr 10 2021 4:36PM EST [facility] Radiology Study observation (narrative) [facility] XR Abdomen Supine and Uprigh tOrdered By: Ccf Provider on 04-10-2021 [facility] No Panel Informationon 12-01 IMPRESSION: NO ACUTE OSSEOUS ABNORMALITY DEGENERATIVE CHANGES DESCRIBED Fur Trimmer: SANTOSH Transcribe Date/Time: Dec 01 2020 1:13P Dictated by : JAME CANALES MD This examination was interpreted and the report reviewed and electronically signed by: JAME CANALES MD on Dec 01 2020 1:15PM [facility] DIVISION OF RADIOLOGY Radiology Study observation (narrative) [facility] No Panel InformationOrdered By: Ccf Provider on 12-01-2020 [facility] XR Lumbar spine 3 Viewson * * *Final Report* * * DATE OF EXAM: Dec 01 2020 12:23PM WOX 5228 - XR LUMBAR 3V AP/LAT/L5-S1 / PROCEDURE REASON: multiple diagnoses * * * * Physician Interpretation * * * * HISTORY: Acute right-sided low back pain with right-sided sciatica Acute right-sided thoracic back pain . Pt fell down stairs x 4 days ago. Right sided back pain that radiates down the right leg TECHNIQUE: XR LUMBAR 3V AP/LAT/L5-S1, XR THORACIC 3V AP/LAT/SWIMMERS Laterality: NOT APPLICABLE Number of different views (projections): 3 COMPARISON: None RESULT: Counting reference: Lumbosacral junction. For the purposes of this report, L4-5 is considered the level of the iliac crest and there are 5 lumbar-type vertebrae. Anatomic Variants: None. Moderate degenerative disc disease at L5-S1. Minimal grade 1 anterolisthesis of L4 and L5. Small multilevel endplate osteophytes. Vertebral body heights normal. No fractures. Marked other sclerotic calcifications abdominal aorta. The superior-most rib bearing vertebral body is labeled T1. 12 rib bearing vertebral bodies. Mild multilevel degenerative disc disease throughout the thoracic spine with small endplate osteophytes. Vertebral body heights normal. No fractures. Atherosclerotic calcifications in the aortic arch. Postoperative changes of left distal clavicular resection. No other significant abnormality. ----- DIVISION OF RADIOLOGY Provider, [facility] [place] - 12/01/2020 * * *Final Report* * * DATE OF EXAM: Dec 01 2020 12:23PM WOX 5228 - XR LUMBAR 3V AP/LAT/L5-S1 / PROCEDURE REASON: multiple diagnoses * * * * Physician Interpretation * * * * HISTORY: Acute right-sided low back pain with right-sided sciatica Acute right-sided thoracic back pain . Pt fell down stairs x 4 days ago. Right sided back pain that radiates down the right leg TECHNIQUE: XR LUMBAR 3V AP/LAT/L5-S1, XR THORACIC 3V AP/LAT/SWIMMERS Laterality: NOT APPLICABLE Number of different views (projections): 3 COMPARISON: None RESULT: Counting reference: Lumbosacral junction. For the purposes of this report, L4-5 is considered the level of the iliac crest and there are 5 lumbar-type vertebrae. Anatomic Variants: None. Moderate degenerative disc disease at L5-S1. Minimal grade 1 anterolisthesis of L4 and L5. Small multilevel endplate osteophytes. Vertebral body heights normal. No fractures. Marked other sclerotic calcifications abdominal aorta. The superior-most rib bearing vertebral body is labeled T1. 12 rib bearing vertebral bodies. Mild multilevel degenerative disc disease throughout the thoracic spine with small endplate osteophytes. Vertebral body heights normal. No fractures. Atherosclerotic calcifications in the aortic arch. Postoperative changes of left distal clavicular resection. No other significant abnormality. ----- IMPRESSION IMPRESSION: NO ACUTE OSSEOUS ABNORMALITY DEGENERATIVE CHANGES DESCRIBED Fur Trimmer: SANTOSH Transcribe Date/Time: Dec 01 2020 1:13P Dictated by : JAME CANALES MD This examination was interpreted and the report reviewed and electronically signed by: JAME CANALES MD on Dec 01 2020 1:15PM [facility] XR Thoracic spine AP and Lat eral and [place] 12-01-2020 * * *Final Report* * * DATE OF EXAM: Dec 01 2020 12:23PM [id number] [id number] - XR THORACIC 3V AP/LAT/SWIMMERS / PROCEDURE REASON: multiple diagnoses * * * * Physician Interpretation * * * * HISTORY: Acute right-sided low back pain with right-sided sciatica Acute right-sided thoracic back pain . Pt fell down stairs x 4 days ago. Right sided back pain that radiates down the right leg TECHNIQUE: XR LUMBAR 3V AP/LAT/L5-S1, XR THORACIC 3V AP/LAT/SWIMMERS Laterality: NOT APPLICABLE Number of different views (projections): 3 COMPARISON: None RESULT: Counting reference: Lumbosacral junction. For the purposes of this report, L4-5 is considered the level of the iliac crest and there are 5 lumbar-type vertebrae. Anatomic Variants: None. Moderate degenerative disc disease at L5-S1. Minimal grade 1 anterolisthesis of L4 and L5. Small multilevel endplate osteophytes. Vertebral body heights normal. No fractures. Marked other sclerotic calcifications abdominal aorta. The superior-most rib bearing vertebral body is labeled T1. 12 rib bearing vertebral bodies. Mild multilevel degenerative disc disease throughout the thoracic spine with small endplate osteophytes. Vertebral body heights normal. No fractures. Atherosclerotic calcifications in the aortic arch. Postoperative changes of left distal clavicular resection. No other significant abnormality. ----- DIVISION OF RADIOLOGY Provider, [facility] [place] - 12/01/2020 * * *Final Report* * * DATE OF EXAM: Dec 01 2020 12:23PM WOX [id number] - XR THORACIC 3V AP/LAT/SWIMMERS / PROCEDURE REASON: multiple diagnoses * * * * Physician Interpretation * * * * HISTORY: Acute right-sided low back pain with right-sided sciatica Acute right-sided thoracic back pain . Pt fell down stairs x 4 days ago. Right sided back pain that radiates down the right leg TECHNIQUE: XR LUMBAR 3V AP/LAT/L5-S1, XR THORACIC 3V AP/LAT/SWIMMERS Laterality: NOT APPLICABLE Number of different views (projections): 3 COMPARISON: None RESULT: Counting reference: Lumbosacral junction. For the purposes of this report, L4-5 is considered the level of the iliac crest and there are 5 lumbar-type vertebrae. Anatomic Variants: None. Moderate degenerative disc disease at L5-S1. Minimal grade 1 anterolisthesis of L4 and L5. Small multilevel endplate osteophytes. Vertebral body heights normal. No fractures. Marked other sclerotic calcifications abdominal aorta. The superior-most rib bearing vertebral body is labeled T1. 12 rib bearing vertebral bodies. Mild multilevel degenerative disc disease throughout the thoracic spine with small endplate osteophytes. Vertebral body heights normal. No fractures. Atherosclerotic calcifications in the aortic arch. Postoperative changes of left distal clavicular resection. No other significant abnormality. ----- IMPRESSION IMPRESSION: NO ACUTE OSSEOUS ABNORMALITY DEGENERATIVE CHANGES DESCRIBED Fur Trimmer: SANTOSH Transcribe Date/Time: Dec 01 2020 1:13P Dictated by : JAME CANALES MD This examination was interpreted and the report reviewed and electronically signed by: JAME CANALES MD on Dec 01 2020 1:15PM [facility] Vital Signs Date Time Vital Sign Value Performing Clinician Facility 02-25-2025 09:10-0400 SaO2% (BldA) [Mass fraction] 94 % Dr. Jese Zheng DO Work Phone: [facility] 02-25-2025 08:20-0400 Body temperature 98.9 [degF] Dr. Jese Zheng DO Work Phone: [facility] 02-25-2025 08:20-0400 Diastolic blood pressure 82 mm[Hg] Dr. Jese Zheng DO Work Phone: 6(916)174-853966 [place] [address] 02-25-2025 08:20-0400 Heart rate 91 /min Dr. Jese Zheng DO Work Phone: 8(477)459-732004 [place] [address] 02-25-2025 08:20-0400 Respiratory rate 18 /min Dr. Jese Zheng DO Work Phone: 5(884)540-172604 [place] [address] 02-25-2025 08:20-0400 Systolic blood pressure 117 mm[Hg] Dr. Jese Zheng DO Work Phone: 7(064)723-678404 [place] [address] 02-25-2025 06:00-0400 Body mass index (BMI) [Ratio] 30.2 kg/m2 Dr. Jese Zheng DO Work Phone: 8(093)931-233604 [place] [address] 02-25-2025 06:00-0400 Body weight 90.[address] Jese Zheng DO Work Phone: 3(114)661-435704 [place] [address] 02-24-2025 21:55-0400 Inhaled oxygen flow rate 2 L/min Dr. Jese Zheng DO Work Phone: 7(211)536-726304 [place] [address] 02-24-2025 10:16-0400 Body height 172.[address] Jese Zheng DO Work Phone: 7(134)423-993804 [place] [address] 02-22-2025 20:07-0400 Body temperature 98.1 [degF] Dr. Jese Zheng DO Work Phone: 6(172)577-918004 [place] [address] 02-22-2025 20:07-0400 Diastolic blood pressure 89 mm[Hg] Dr. Jese Zheng DO Work Phone: 5(512)513-921504 [place] [address] 02-22-2025 20:07-0400 Heart rate 124 /min Dr. Jese Zheng DO Work Phone: 7(905)856-443104 [place] [address] 02-22-2025 20:07-0400 Respiratory rate 21 /min Dr. Jese Zheng DO Work Phone: 4(822)105-378204 [place] [address] 02-22-2025 20:07-0400 SaO2% (BldA) [Mass fraction] 94 % Dr. Jese Zheng DO Work Phone: [facility] 02-22-2025 20:07-0400 Systolic blood pressure 141 mm[Hg] Dr. Jese Zheng DO Work Phone: [facility] 02-22-2025 19:56-0400 Inhaled oxygen flow rate 2 L/min Dr. Jese Zheng DO Work Phone: [facility] 02-22-2025 18:07-0400 Body mass index (BMI) [Ratio] 32.4 kg/m2 Dr. Jese Zheng DO Work Phone: 0(097)314-593366 [place] [address] 02-22-2025 18:07-0400 Body weight 97.[address] Jese Zheng DO Work Phone: 6(470)670-019704 [place] [address] 02-22-2025 16:31-0400 Body height 172.[address] Jese Zheng DO Work Phone: [facility] 02-22-2025 15:09-0400 Body temperature 97.7 [degF] Selin Suppan TILE MOLDER HAND.PROFESSOR OF PHYSICS Work Phone: [facility] 02-22-2025 15:09-0400 Diastolic blood pressure 74 mm[Hg] Selin Suppan TILE MOLDER HAND.PROFESSOR OF PHYSICS Work Phone: [facility] 02-22-2025 15:09-0400 Heart rate 110 /min Selin Suppan TILE MOLDER HAND.PROFESSOR OF PHYSICS Work Phone: [facility] 02-22-2025 15:09-0400 SaO2% (BldA) [Mass fraction] 96 % Selin Suppan TILE MOLDER HAND.PROFESSOR OF PHYSICS Work Phone: [facility] 02-22-2025 15:09-0400 Systolic blood pressure 122 mm[Hg] Selin Suppan TILE MOLDER HAND.PROFESSOR OF PHYSICS Work Phone: [facility] 12-30-2024 14:57-0400 Body mass index (BMI) [Ratio] 31.17 kg/m2 Jese Zheng DO Work Phone: [facility] 12-30-2024 14:57-0400 Body temperature 96.8 [degF] Jese Zheng DO Work Phone: [facility] 12-30-2024 14:57-0400 Body weight 92.99 kg Jese Zheng DO Work Phone: [facility] 12-30-2024 14:57-0400 Diastolic blood pressure 70 mm[Hg] Jese Zheng DO Work Phone: [facility] 12-30-2024 14:57-0400 Heart rate 80 /min Jese Zheng DO Work Phone: [facility] 12-30-2024 14:57-0400 Respiratory rate 16 /min Jese Zheng DO Work Phone: [facility] 12-30-2024 14:57-0400 Systolic blood pressure 120 mm[Hg] Jese Zheng DO Work Phone: [facility] 09-23-2024 15:07-0500 Body mass index (BMI) [Ratio] 31.32 kg/m2 Jese Zheng DO Work Phone: [facility] 09-23-2024 15:07-0500 Body temperature 97 [degF] Jese Zheng DO Work Phone: [facility] 09-23-2024 15:07-0500 Body weight 93.44 kg Jese Zheng DO Work Phone: [facility] 09-23-2024 15:07-0500 Diastolic blood pressure 64 mm[Hg] Jese Zheng DO Work Phone: [facility] 09-23-2024 15:07-0500 Heart rate 88 /min Jese Zheng DO Work Phone: [facility] 09-23-2024 15:07-0500 Respiratory rate 16 /min Jese Zheng DO Work Phone: [facility] 09-23-2024 15:07-0500 Systolic blood pressure 134 mm[Hg] Jese Zheng DO Work Phone: [facility] 03-17-2024 14:58-0400 Body mass index (BMI) [Ratio] 31.47 kg/m2 Jese Zheng DO Work Phone: [facility] 03-17-2024 14:58-0400 Body temperature 97.11 [degF] Jese Zheng DO Work Phone: [facility] 03-17-2024 14:58-0400 Body weight 93.89 kg Jese Zheng DO Work Phone: [facility] 03-17-2024 14:58-0400 Diastolic blood pressure 80 mm[Hg] Jese Zheng DO Work Phone: [facility] 03-17-2024 14:58-0400 Heart rate 80 /min Jese Zheng DO Work Phone: [facility] 03-17-2024 14:58-0400 Respiratory rate 16 /min Jese Zheng DO Work Phone: [facility] 03-17-2024 14:58-0400 Systolic blood pressure 136 mm[Hg] Jese Zheng DO Work Phone: [facility] 11-27-2023 13:56-0400 Body mass index (BMI) [Ratio] 32.23 kg/m2 Jese Zheng DO Work Phone: [facility] 11-27-2023 13:56-0400 Body temperature 97.39 [degF] Jese Zheng DO Work Phone: [facility] 11-27-2023 13:56-0400 Body weight 96.16 kg Jese Zheng DO Work Phone: [facility] 11-27-2023 13:56-0400 Diastolic blood pressure 60 mm[Hg] Jese Zheng DO Work Phone: [facility] 11-27-2023 13:56-0400 Heart rate 80 /min Jese Zheng DO Work Phone: [facility] 11-27-2023 13:56-0400 Respiratory rate 20 /min Jese Zheng DO Work Phone: [facility] 11-27-2023 13:56-0400 Systolic blood pressure 120 mm[Hg] Jese Zheng DO Work Phone: [facility] 09-20-2023 14:53-0500 Diastolic blood pressure 80 mm[Hg] Jese Zheng DO Work Phone: [facility] 09-20-2023 14:53-0500 Heart rate 85 /min Jese Zheng DO Work Phone: [facility] 09-20-2023 14:53-0500 Respiratory rate 16 /min Jese Zheng DO Work Phone: [facility] 09-20-2023 14:53-0500 SaO2% (BldA) [Mass fraction] 97 % Jese Zheng DO Work Phone: [facility] 09-20-2023 14:53-0500 Systolic blood pressure 124 mm[Hg] Jese Zheng DO Work Phone: [facility] 08-27-2023 08:37-0500 Body temperature 97 [degF] Jese Zheng DO Work Phone: [facility] 08-27-2023 08:37-0500 Body weight 89.81 kg Jese Zheng DO Work Phone: [facility] 08-27-2023 08:37-0500 Diastolic blood pressure 82 mm[Hg] Jese Zheng DO Work Phone: [facility] 08-27-2023 08:37-0500 Heart rate 80 /min Jese Zheng DO Work Phone: [facility] 08-27-2023 08:37-0500 Respiratory rate 16 /min Jese Zheng DO Work Phone: [facility] 08-27-2023 08:37-0500 Systolic blood pressure 138 mm[Hg] Jese Zheng DO Work Phone: [facility] 05-27-2023 13:04-0500 Body temperature 96.49 [degF] Jese Zheng DO Work Phone: [facility] 05-27-2023 13:04-0500 Body weight 90.27 kg Jese Zheng DO Work Phone: [facility] 05-27-2023 13:04-0500 Diastolic blood pressure 82 mm[Hg] Jese Zheng DO Work Phone: [facility] 05-27-2023 13:04-0500 Heart rate 64 /min Jese Zheng DO Work Phone: [facility] 05-27-2023 13:04-0500 Respiratory rate 20 /min Jese Zheng DO Work Phone: [facility] 05-27-2023 13:04-0500 Systolic blood pressure 138 mm[Hg] Jese Zheng DO Work Phone: [facility] 04-05-2023 08:14-0400 Body temperature 98.71 [degF] Mitchel Carney MD Work Phone: [facility] 04-05-2023 08:14-0400 Body weight 92.99 kg Mitchel Carney MD Work Phone: [facility] 04-05-2023 08:14-0400 Diastolic blood pressure 92 mm[Hg] Mitchel Carney MD Work Phone: [facility] 04-05-2023 08:14-0400 Heart rate 94 /min Mitchel Carney MD Work Phone: [facility] 04-05-2023 08:14-0400 Respiratory rate 18 /min Mitchel Canrey MD Work Phone: [facility] 04-05-2023 08:14-0400 SaO2% (BldA) [Mass fraction] 99 % Mitchel Carney MD Work Phone: [facility] 04-05-2023 08:14-0400 Systolic blood pressure 142 mm[Hg] Mitchel Carney MD Work Phone: [facility] 02-19-2023 12:37-0400 Body temperature 97.39 [degF] Jese Zheng DO Work Phone: [facility] 02-19-2023 12:37-0400 Body weight 89.81 kg Jese Zheng DO Work Phone: [facility] 02-19-2023 12:37-0400 Diastolic blood pressure 80 mm[Hg] Jese Zheng DO Work Phone: [facility] 02-19-2023 12:37-0400 Heart rate 72 /min Jese Zheng DO Work Phone: [facility] 02-19-2023 12:37-0400 Respiratory rate 20 /min Jese Zheng DO Work Phone: [facility] 02-19-2023 12:37-0400 Systolic blood pressure 124 mm[Hg] Jese Zheng DO Work Phone: [facility] 12-27-2022 10:14-0400 Diastolic blood pressure 81 mm[Hg] Shayan Cannelburg [facility] Work Phone: [facility] 12-27-2022 10:14-0400 Heart rate 94 /min Shayan Cannelburg [facility] Work Phone: [facility] 12-27-2022 10:14-0400 Systolic blood pressure 138 mm[Hg] Shayan Juan RPh Work Phone: [facility] 11-15-2022 11:51-0400 Diastolic blood pressure 72 mm[Hg] Shayan C[place] [facility] Work Phone: [facility] 11-15-2022 11:51-0400 Heart rate 109 /min Shayan Juan RPh Work Phone: [facility] 11-15-2022 11:51-0400 Systolic blood pressure 121 mm[Hg] Shayan Cannelburg RP Work Phone: [facility] 11-08-2022 12:40-0400 Body weight 92.17 kg Ankita Green APRNMIGUEL ANGEL Work Phone: [facility] 11-08-2022 12:40-0400 Diastolic blood pressure 82 mm[Hg] Ankita Juliana TILE MOLDER HAND.PROFESSOR OF PHYSICS Work Phone: [facility] 11-08-2022 12:40-0400 Heart rate 105 /min Ankita Juliana TILE MOLDER HAND.PROFESSOR OF PHYSICS Work Phone: [facility] 11-08-2022 12:40-0400 Respiratory rate 18 /min Ankita Juliana TILE MOLDER HAND.PROFESSOR OF PHYSICS Work Phone: [facility] 11-08-2022 12:40-0400 SaO2% (BldA) [Mass fraction] 97 % Ankita Juliana TILE MOLDER HAND.PROFESSOR OF PHYSICS Work Phone: [facility] 11-08-2022 12:40-0400 Systolic blood pressure 140 mm[Hg] Ankita Juliana TILE MOLDER HAND.PROFESSOR OF PHYSICS Work Phone: [facility] 10-18-2022 09:33-0400 Body temperature 98.2 [degF] Radha Praisler-Wood TILE MOLDER HAND.PROFESSOR OF PHYSICS Work Phone: [facility] 10-18-2022 09:33-0400 Body weight 91.63 kg Radha Praisler-Wood TILE MOLDER HAND.PROFESSOR OF PHYSICS Work Phone: [facility] 10-18-2022 09:33-0400 Diastolic blood pressure 86 mm[Hg] Radha Praisler-Wood TILE MOLDER HAND.PROFESSOR OF PHYSICS Work Phone: [facility] 10-18-2022 09:33-0400 Heart rate 101 /min Radha Praisler-Wood TILE MOLDER HAND.PROFESSOR OF PHYSICS Work Phone: [facility] 10-18-2022 09:33-0400 Respiratory rate 18 /min Radha Praisler-Wood TILE MOLDER HAND.PROFESSOR OF PHYSICS Work Phone: [facility] 10-18-2022 09:33-0400 SaO2% (BldA) [Mass fraction] 100 % Radha Praisler-Wood TILE MOLDER HAND.PROFESSOR OF PHYSICS Work Phone: [facility] 10-18-2022 09:33-0400 Systolic blood pressure 144 mm[Hg] Radha Praisler-Wood TILE MOLDER HAND.PROFESSOR OF PHYSICS Work Phone: [facility] 07-24-2022 08:53-0500 Body temperature 97.2 [degF] Jese Zheng DO Work Phone: [facility] 07-24-2022 08:53-0500 Body weight 90.72 kg Jese Zheng DO Work Phone: [facility] 07-24-2022 08:53-0500 Diastolic blood pressure 80 mm[Hg] Jese Zheng DO Work Phone: [facility] 07-24-2022 08:53-0500 Heart rate 88 /min Jese Zheng DO Work Phone: [facility] 07-24-2022 08:53-0500 Respiratory rate 20 /min Jese Zheng DO Work Phone: [facility] 07-24-2022 08:53-0500 Systolic blood pressure 134 mm[Hg] Jese Zheng DO Work Phone: [facility] 06-21-2022 09:17-0500 Diastolic blood pressure 78 mm[Hg] Shayan Villedago [facility] Work Phone: [facility] 06-21-2022 09:17-0500 Heart rate 108 /min Shayan Cannelburg [facility] Work Phone: [facility] 06-21-2022 09:17-0500 Systolic blood pressure 128 mm[Hg] Shayan C[place]burg [facility] Work Phone: [facility] 05-29-2022 15:58-0500 Body temperature 97.5 [degF] Brandy Ramirez MD Work Phone: [facility] 05-29-2022 15:58-0500 Body weight 93.89 kg Brandy Ramirez MD Work Phone: [facility] 05-29-2022 15:58-0500 Diastolic blood pressure 78 mm[Hg] Brandy Ramirez MD Work Phone: [facility] 05-29-2022 15:58-0500 Heart rate 107 /min Brandy Ramirez MD Work Phone: [facility] 05-29-2022 15:58-0500 SaO2% (BldA) [Mass fraction] 98 % Brandy Ramirez MD Work Phone: [facility] 05-29-2022 15:58-0500 Systolic blood pressure 134 mm[Hg] Brandy Ramirez MD Work Phone: [facility] 05-21-2022 11:55-0400 Body temperature 97.3 [degF] Ankita Juliana TILE MOLDER HAND.PROFESSOR OF PHYSICS Work Phone: [facility] 05-21-2022 11:55-0400 Body weight 92.35 kg Ankita Juliana TILE MOLDER HAND.PROFESSOR OF PHYSICS Work Phone: [facility] 05-21-2022 11:55-0400 Diastolic blood pressure 82 mm[Hg] Ankita Juliana TILE MOLDER HAND.PROFESSOR OF PHYSICS Work Phone: [facility] 05-21-2022 11:55-0400 Heart rate 113 /min Ankita Juliana TILE MOLDER HAND.PROFESSOR OF PHYSICS Work Phone: [facility] 05-21-2022 11:55-0400 Respiratory rate 20 /min Ankita Juliana TILE MOLDER HAND.PROFESSOR OF PHYSICS Work Phone: [facility] 05-21-2022 11:55-0400 SaO2% (BldA) [Mass fraction] 99 % Ankita Juliana TILE MOLDER HAND.PROFESSOR OF PHYSICS Work Phone: [facility] 05-21-2022 11:55-0400 Systolic blood pressure 130 mm[Hg] Ankita Juliana TILE MOLDER HAND.PROFESSOR OF PHYSICS Work Phone: [facility] 05-20-2022 08:31-0400 Body temperature 97 [degF] Kanwal Shannan TILE MOLDER HAND.PROFESSOR OF PHYSICS Work Phone: [facility] 05-20-2022 08:31-0400 Body weight 94.35 kg Kanwal Shannan TILE MOLDER HAND.PROFESSOR OF PHYSICS Work Phone: [facility] 05-20-2022 08:31-0400 Diastolic blood pressure 84 mm[Hg] Kanwal Shannan TILE MOLDER HAND.PROFESSOR OF PHYSICS Work Phone: [facility] 05-20-2022 08:31-0400 Heart rate 78 /min Kanwal Shannan TILE MOLDER HAND.PROFESSOR OF PHYSICS Work Phone: [facility] 05-20-2022 08:31-0400 Respiratory rate 16 /min Kanwal Shannan TILE MOLDER HAND.PROFESSOR OF PHYSICS Work Phone: [facility] 05-20-2022 08:31-0400 SaO2% (BldA) [Mass fraction] 100 % Kanwal Shannan TILE MOLDER HAND.PROFESSOR OF PHYSICS Work Phone: [facility] 05-20-2022 08:31-0400 Systolic blood pressure 144 mm[Hg] Kanwal Shannan TILE MOLDER HAND.PROFESSOR OF PHYSICS Work Phone: [facility] 04-27-2022 13:49-0400 Body weight 96.16 kg Jese Zheng DO Work Phone: [facility] 04-27-2022 13:49-0400 Diastolic blood pressure 80 mm[Hg] Jese Zheng DO Work Phone: [facility] 04-27-2022 13:49-0400 Heart rate 78 /min Jese Zheng DO Work Phone: [facility] 04-27-2022 13:49-0400 Respiratory rate 16 /min Jese Zheng DO Work Phone: [facility] 04-27-2022 13:49-0400 Systolic blood pressure 140 mm[Hg] Jese Zheng DO Work Phone: [facility] 12-30-2021 09:37-0400 Body temperature 96.69 [degF] Jese Zheng DO Work Phone: [facility] 12-30-2021 09:37-0400 Body weight 95.71 kg Jese Zheng DO Work Phone: [facility] 12-30-2021 09:37-0400 Diastolic blood pressure 70 mm[Hg] Jese Zheng DO Work Phone: [facility] 12-30-2021 09:37-0400 Heart rate 80 /min Jese Zheng DO Work Phone: [facility] 12-30-2021 09:37-0400 Respiratory rate 20 /min Jese Zheng DO Work Phone: [facility] 12-30-2021 09:37-0400 Systolic blood pressure 120 mm[Hg] Jese Zheng DO Work Phone: [facility] 12-20-2021 09:25-0400 Body weight 96.07 kg Ankita Juliana TILE MOLDER HAND.PROFESSOR OF PHYSICS Work Phone: [facility] 12-20-2021 09:25-0400 Diastolic blood pressure 96 mm[Hg] Ankita Juliana TILE MOLDER HAND.PROFESSOR OF PHYSICS Work Phone: [facility] 12-20-2021 09:25-0400 Heart rate 91 /min Ankita Juliana TILE MOLDER HAND.PROFESSOR OF PHYSICS Work Phone: [facility] 12-20-2021 09:25-0400 Respiratory rate 16 /min Ankita Juliana TILE MOLDER HAND.PROFESSOR OF PHYSICS Work Phone: [facility] 12-20-2021 09:25-0400 SaO2% (BldA) [Mass fraction] 100 % Ankita Juliana TILE MOLDER HAND.PROFESSOR OF PHYSICS Work Phone: [facility] 12-20-2021 09:25-0400 Systolic blood pressure 144 mm[Hg] Ankita Juliana TILE MOLDER HAND.PROFESSOR OF PHYSICS Work Phone: [facility] 11-14-2021 10:01-0400 Body weight 95.71 kg Jese Zheng DO Work Phone: [facility] 11-14-2021 10:01-0400 Diastolic blood pressure 82 mm[Hg] Jese Zheng DO Work Phone: [facility] 11-14-2021 10:01-0400 Heart rate 98 /min Jese Zheng DO Work Phone: [facility] 11-14-2021 10:01-0400 Respiratory rate 16 /min Jese Zheng DO Work Phone: [facility] 11-14-2021 10:01-0400 SaO2% (BldA) [Mass fraction] 98 % Jese Zheng DO Work Phone: [facility] 11-14-2021 10:01-0400 Systolic blood pressure 138 mm[Hg] Jese Zheng DO Work Phone: [facility] 10-13-2021 08:40-0400 Body temperature 97.11 [degF] Jese Zheng DO Work Phone: [facility] 10-13-2021 08:40-0400 Body weight 97.07 kg Jese Zheng DO Work Phone: [facility] 10-13-2021 08:40-0400 Diastolic blood pressure 90 mm[Hg] Jese Zheng DO Work Phone: [facility] 10-13-2021 08:40-0400 Heart rate 80 /min Jese Zheng DO Work Phone: [facility] 10-13-2021 08:40-0400 Respiratory rate 16 /min Jese Zheng DO Work Phone: [facility] 10-13-2021 08:40-0400 Systolic blood pressure 146 mm[Hg] Jese Zheng DO Work Phone: [facility] Encounters Encounter Date Encounter Type Care Provider Facility Start: 02-24-2025 Non-patient / Non-visit Dr. Clarissa [facility] Work Phone: Start: 02-24-2025 Non-patient / Non-visit [facility]. Raya [facility] Start: 02-23-2025 Non-patient / Non-visit Dr. Raya [facility] Start: 02-22-2025 End: 02-25-2025 Evaluation and management of inpatient Dr. Denton Cook MD -[facility] Work Phone: Start: 02-22-2025 Non-patient / Non-visit Dr. Denton [facility] Work Phone: Start: 02-22-2025 End: 02-22-2025 Office outpatient visit 25 minutes Selin Garcia APRN.PROFESSOR OF PHYSICS Work Phone: [facility] Comment on above: Chest pain on breath ing (Primary Dx); Type 2 diabetes mellitus with peripheral neuropathy (HCC); Shortness of breath; Fatigue, unspecified type Start: 02-22-2025 End: 02-22-2025 ambulatory Jese L Zheng DO Work Phone: [facility] Comment on above: Shortness of Breath Start: 01-25-2025 End: 02-03-2025 Follow-up encounter Corrine Louise APRN.[facility] Work Phone: [facility] Start: 01-25-2025 End: 01-25-2025 Telephone encounter Susana Garcia [facility] Work Phone: [facility] Comment on above: Results Start: 01-21-2025 End: 01-21-2025 Patient encounter procedure Susana Goldsmithcasio [facility] Work Phone: [facility] Comment on above: Uncontrolled type 2 diabetes mellitus with hyperglycemia (HCC) (Primary Dx) Start: 01-21-2025 End: 01-21-2025 ambulatory JESE L ZHENG Facility:[facility] Start: 01-11-2025 End: 01-12-2025 Refill Jese L Zheng DO Work Phone: [facility] Comment on above: Refill Request Start: 12-30-2024 End: 12-30-2024 Patient encounter procedure Jese L Zheng DO Work Phone: [facility] Comment on above: Type 2 diabetes adi itus without complication, with long-term current use of insulin (HCC) (Primary Dx); Trigger middle finger of right hand; Right hand pain; Dysuria; Dyslipidemia; Essential hypertension Start: 12-30-2024 End: 12-30-2024 ambulatory JESE L ZHENG Facility:[facility] Start: 12-16-2024 End: 02-15-2025 Follow-up encounter Natali Carrington Sofia GONZALEZ Work Phone: [facility] [place] Start: 12-11-2024 ambulatory JESE ZHENG Facil ity:[facility] Start: 12-10-2024 End: 12-10-2024 ambulatory JESE Ludmila ESTRADAZHENG Facility:[facility] Start: 11-26-2024 End: 11-26-2024 ambulatory JESE ESTRADARISON Facility:[facility] Start: 11-26-2024 End: 11-26-2024 Patient encounter procedure Susana Garcia [facility] Work Phone: [facility] Comment on above: Uncontrolled type 2 diabetes mellitus with hyperglycemia (HCC) (Primary Dx) Start: 11-16-2024 End: 11-16-2024 Refill Jese Ludmila Zheng DO Work Phone: [facility] [place] Comment on above: Refill Request Start: 10-29-2024 End: 10-29-2024 ambulatory JESE ZHENG Facility:[facility] Start: 10-29-2024 End: 10-29-2024 Patient encounter procedure Susana Teresadanica [facility] Work Phone: [facility] Comment on above: Uncontrolled type 2 diabetes mellitus with hyperglycemia (HCC) (Primary Dx) Start: 09-24-2024 End: 09-24-2024 E-mail encounter from caregiver Susana Goldsmithmajo [facility] Work Phone: [facility] Start: 09-24-2024 End: 09-24-2024 Follow-up encounter Susana Garcia [facility] Work Phone: [facility] Comment on above: Pharmacist Follow Up Visit Start: 09-23-2024 End: 09-23-2024 ambulatory JESE Ludmila ZHENG Facility:[facility] Start: 09-23-2024 End: 09-23-2024 Patient encounter procedure Jese Estradarison DO Work Phone: [facility] Medicine [place] Comment on above: Type 2 diabetes adi itus with peripheral neuropathy (HCC) (Primary Dx); Acute cough; Rhonchi at both lung bases; Shortness of breath; COVID-19; Vitamin B12 deficiency; Vitamin D deficiency; Dyslipidemia; Essential hypertension; Trigger middle finger of right hand; Right hand pain Start: 09-09-2024 End: 09-09-2024 Refill Jese L Zheng DO Work Phone: [facility] [place] Comment on above: Refill Request Start: 07-23-2024 End: 07-23-2024 ambulatory JESE L ZHENG Facility:[facility] Start: 07-23-2024 End: 07-23-2024 Patient encounter procedure Susana Garcia [facility] Work Phone: [facility] Comment on above: Uncontrolled type 2 diabetes mellitus with hyperglycemia (HCC) (Primary Dx) Start: 07-21-2024 End: 07-21-2024 Telephone encounter John Bronw MD Work Phone: Orthopaedics Comment on above: Results Start: 07-20-2024 End: 07-20-2024 ambulatory JESE L ZHENG Facility:[facility] Start: 07-20-2024 End: 07-20-2024 ambulatory JESE L ZHENG Facility:[facility] Start: 07-20-2024 End: 07-20-2024 Patient encounter procedure John Brown MD Work Phone: Orthopaedics Comment on above: Type 2 diabetes adi itus with peripheral neuropathy (HCC) (Primary Dx); Right hand pain; Trigger finger, unspecified finger, unspecified laterality Start: 07-16-2024 End: 07-28-2024 Telephone encounter Jese L Zheng DO Work Phone: [facility] Comment on above: Patient Question Start: 07-06-2024 End: 07-06-2024 Telephone encounter Susana Garcia [facility] Work Phone: [facility] Comment on above: Appointment (Pharmac ist Visit Rescheduling) Start: 06-23-2024 End: 06-23-2024 Subsequent hospital visit by physician Radhika [facility] [place] Work Phone: Radiology Comment on above: Right hand pain [M79 .641] Start: 06-23-2024 End: 06-23-2024 ambulatory JESE ZHENG Facility:[facility] Start: 06-23-2024 End: 06-23-2024 ambulatory JESE ZHENG Facility:[facility] Start: 05-05-2024 End: 05-05-2024 Telephone encounter Jese Zheng DO Work Phone: [facility] [place] Start: 05-04-2024 End: 05-04-2024 Telephone encounter Jese Zheng DO Work Phone: [facility] [place] Comment on above: Insurance Authorizat ion Start: 05-01-2024 End: 05-04-2024 ambulatory Susana Goldsmithcasio [facility] Work Phone: [facility] Start: 05-01-2024 End: 05-04-2024 Patient encounter procedure Susana Rupalcasio [facility] Work Phone: [facility] Comment on above: tredella Start: 04-23-2024 End: 04-23-2024 ambulatory JESE ZHENG Facility:[facility] Start: 04-23-2024 End: 04-23-2024 Patient encounter procedure Susana Goldsmithcasio [facility] Work Phone: [facility] Comment on above: Uncontrolled type 2 diabetes mellitus with hyperglycemia (HCC) (Primary Dx) Start: 04-15-2024 End: 04-16-2024 Documentation procedure Mammography Coordinator LOD ANCILLARY AREA NOT LISTED Start: 04-15-2024 End: 04-16-2024 Letter encounter Mammography Coordinator LODI ANCILLARY AREA NOT LISTED Start: 04-14-2024 ambulatory JESE ZHENG Facil ity:[facility] Start: 04-14-2024 End: 04-14-2024 Subsequent hospital visit by physician Mammo/Bone Density [facility] Comment on above: Encounter for screen ing mammogram for breast cancer [Z12.31] Start: 04-07-2024 End: 04-07-2024 Refill Jese Zheng DO Work Phone: [facility] [place] Comment on above: Refill Request Start: 03-19-2024 End: 03-19-2024 ambulatory JESE ZHENG Facility:[facility] Start: 03-17-2024 End: 03-17-2024 ambulatory JESE ZHENG Facility:[facility] Start: 03-17-2024 End: 03-17-2024 Patient encounter procedure Jese Zheng DO Work Phone: [facility] [place] Comment on above: Type 2 diabetes adi itus without complication, with long-term current use of insulin (HCC) (Primary Dx); Vitamin B12 deficiency; Dyslipidemia; Vitamin D deficiency; Essential hypertension; Gastroesophageal reflux disease, unspecified whether esophagitis present Start: 03-05-2024 End: 03-05-2024 ambulatory JESE ZHENG Facility:[facility] Start: 03-05-2024 End: 03-05-2024 Patient encounter procedure Susana Goldsmithcasio [facility] Work Phone: [facility] Comment on above: Uncontrolled type 2 diabetes mellitus with hyperglycemia (HCC) (Primary Dx) Start: 02-06-2024 Telephone encounter Susana Goldsmithcasio [facility] Work Phone: [facility] Comment on above: Missed Appointment Start: 01-28-2024 ambulatory Susana torresasio [facility] Work Phone: [facility] Start: 01-28-2024 Patient encounter procedure Susanagela Goldsmithcasio [facility] Work Phone: [facility] Comment on above: tredella Start: 01-28-2024 Telephone encounter Susanagela Goldsmithcasio [facility] Work Phone: [facility] Comment on above: Patient Update Start: 01-24-2024 Refill Corrine [place] APRN.PROFESSOR OF PHYSICS Work Phone: [facility] [place] Comment on above: Refill Request Start: 01-10-2024 Telephone encounter Jese gandhi DO Work Phone: [facility] [place] Comment on above: Insurance Authorizat ion (Ozempic) Insurance Authorizat ion Start: 01-09-2024 End: 01-09-2024 Patient encounter procedure Susana Goldsmithcasio [facility] Work Phone: [facility] Comment on above: Uncontrolled type 2 diabetes mellitus with hyperglycemia (HCC) (Primary Dx) Start: 12-27-2023 Telephone encounter Jese Ludmila gandhi DO Work Phone: [facility] [place] Start: 11-27-2023 End: 11-27-2023 Patient encounter procedure Jese Ludmila Zavalaon DO Work Phone: [facility] [place] Comment on above: Type 2 diabetes adi itus without complication, with long-term current use of insulin (HCC) (Primary Dx); Vitamin B12 deficiency; Hepatic steatosis; Dyslipidemia; Acute otitis externa of right ear, unspecified type; Carotid atherosclerosis, bilateral Start: 11-25-2023 Refill Jese escobar DO Work Phone: [facility] [place] Comment on above: Refill Request Start: 10-31-2023 End: 10-31-2023 Patient encounter procedure Susana Goldsmithcasio [facility] Work Phone: [facility] Comment on above: Uncontrolled type 2 diabetes mellitus with hyperglycemia (HCC) (Primary Dx) Start: 10-31-2023 ambulatory Susana torresasio [facility] Work Phone: [facility] Comment on above: tredella Start: 10-10-2023 Telephone encounter Jese Ludmila gandhi DO Work Phone: [facility] [place] Comment on above: Patient Question Start: 10-09-2023 ambulatory Jese escobar DO Work Phone: [facility] [place] Start: 09-26-2023 End: 09-26-2023 Patient encounter procedure Susana Goldsmithcasio [facility] Work Phone: [facility] Comment on above: Uncontrolled type 2 diabetes mellitus with hyperglycemia (HCC) (Primary Dx) Start: 09-21-2023 Telephone encounter Jese Ludmila gandhi DO Work Phone: [facility] [place] Start: 09-20-2023 End: 09-20-2023 Patient encounter procedure Jese Zheng DO Work Phone: [facility] [place] Comment on above: Acute non-recurrent maxillary sinusitis (Primary Dx); Acute bronchitis, unspecified organism; Rhinorrhea Start: 09-04-2023 Refill Jese Ludmila Ramirez luz DO Work Phone: [facility] [place] Start: 08-27-2023 End: 08-27-2023 Patient encounter procedure Jese Keys Zheng DO Work Phone: [facility] [place] Comment on above: Type 2 diabetes adi itus with peripheral neuropathy (HCC) (Primary Dx); Other polyneuropathy; Fatigue, unspecified type; Dyslipidemia; Hepatic steatosis; Obesity, Class I, BMI 30-34.9; Vitamin D deficiency; Acute bronchitis, unspecified organism Refill Request Start: 08-22-2023 End: 08-22-2023 Patient encounter procedure Susana Goldsmithcasio [facility] Work Phone: [facility] Comment on above: Uncontrolled type 2 diabetes mellitus with hyperglycemia (HCC) (Primary Dx) Start: 06-27-2023 End: 06-27-2023 Patient encounter procedure Susana Paneccasio [facility] Work Phone: [facility] Comment on above: Uncontrolled type 2 diabetes mellitus with hyperglycemia (HCC) (Primary Dx) Start: 06-18-2023 Telephone encounter Susana Rupalcasio [facility] Work Phone: [facility] Comment on above: Patient Update Start: 06-06-2023 End: 06-06-2023 Patient encounter procedure Susana Paneccasio [facility] Work Phone: [facility] Comment on above: Uncontrolled type 2 diabetes mellitus with hyperglycemia (HCC) (Primary Dx) Start: 06-06-2023 E-mail encounter darlene m caregiver Susana Paneccasio [facility] Work Phone: [facility] [place] Start: 06-06-2023 Follow-up encounter Susana Teresaeccasio [facility] Work Phone: [facility] Comment on above: Pharmacy Visit Follo w Up Start: 05-29-2023 Telephone encounter Jese gandhi DO Work Phone: [facility] [place] Comment on above: Medication Problem Start: 05-28-2023 Telephone encounter Jese gandhi DO Work Phone: [facility] [place] Comment on above: Results Start: 05-28-2023 ambulatory JESE Shaffer ity:[id number] Start: 05-28-2023 End: 05-28-2023 [facility] Comment on above: Right leg swelling [ M79.89] Start: 05-27-2023 End: 05-27-2023 Patient encounter procedure Jese Zheng DO Work Phone: [facility] [place] Comment on above: Type 2 diabetes adi itus with peripheral neuropathy (HCC) (Primary Dx); Need for influenza vaccination; Need for COVID-19 vaccine; Right leg swelling; Right calf pain; Acute bronchitis, unspecified organism; Other polyneuropathy; Current moderate episode of major depressive disorder without prior episode (HCC); Fatigue, unspecified type; Dyslipidemia; Hepatic steatosis; Obesity, Class I, BMI 30-34.9 Start: 05-09-2023 Telephone encounter Maye TAPIA Navigation Start: 04-06-2023 Telephone encounter Mitchel Alfonso MD Work Phone: [place] [facility] Comment on above: Results; Covid Posit hiren (Paxlovid) Start: 04-05-2023 End: 04-05-2023 Patient encounter procedure Mitchel Carney MD Work Phone: [place] [facility] Comment on above: Acute non-recurrent sinusitis, unspecified location (Primary Dx) Start: 04-02-2023 Refill Jese escobar DO Work Phone: [facility] [place] Comment on above: Refill Request Start: 03-25-2023 Refill Jese escobar DO Work Phone: [facility] [place] Comment on above: Refill Request Start: 03-14-2023 Telephone encounter Jese gandhi DO Work Phone: [facility] [place] Comment on above: Results Start: 02-26-2023 Telephone encounter Jese gandhi DO Work Phone: [facility] Comment on above: Results Start: 02-26-2023 End: 02-26-2023 Subsequent hospital visit by physician Ct [facility] (I-Stat) Work Phone: Cat Scan Comment on above: SOB (shortness of br eath) [R06.02] Start: 02-24-2023 Refill Luciano merida MD Work Phone: [facility] Comment on above: Refill Request Start: 02-19-2023 End: 02-19-2023 Subsequent hospital visit by physician Xr [facility] [place] Work Phone: Radiology Comment on above: SOB (shortness of br eath) [R06.02] Start: 02-19-2023 End: 02-19-2023 Patient encounter procedure Jese Zheng DO Work Phone: [facility] Comment on above: Current moderate epi sode of major depressive disorder without prior episode (HCC) (Primary Dx); Type 2 diabetes mellitus with peripheral neuropathy (HCC); Fatigue, unspecified type; Dyslipidemia; SOB (shortness of breath); Wheezing; Pulmonary nodule; Multiple lung nodules Start: 01-31-2023 Telephone encounter Jese gandhi DO Work Phone: [facility] Comment on above: Insurance Authorizat ion (Freestlye michi) Refill Request Start: 01-03-2023 Chart abstracting Elena peace [facility] Work Phone: Psychology Comment on above: Refill Request Start: 12-27-2022 End: 12-27-2022 Patient encounter procedure Shayan Cannelburg [facility] Work Phone: [facility] Comment on above: Uncontrolled type 2 diabetes mellitus with hyperglycemia (HCC) (Primary Dx) Start: 12-06-2022 End: 12-06-2022 ambulatory [facility] Work Phone: Start: 12-06-2022 End: 12-06-2022 Patient encounter procedure [facility], [facility] Start: 11-29-2022 End: 11-29-2022 Subsequent hospital visit by physician Arnie Herrera [facility] Work Phone: Nuclear Medicine Comment on above: Nausea [R11.0] Start: 11-20-2022 Telephone encounter Ankita Cm APRN.CNP Work Phone: [facility] [place] Comment on above: CT Scan Insurance Is ramez Start: 11-15-2022 End: 11-15-2022 Patient encounter procedure [facility] Work Phone: [facility] Comment on above: Uncontrolled type 2 diabetes mellitus with hyperglycemia (HCC) (Primary Dx); Essential hypertension Start: 11-08-2022 End: 11-08-2022 Subsequent hospital visit by physician Radhika [facility] [place] [facility] Work Phone: Radiology Comment on above: Chest tightness [R07 .89] Nausea [R11.0] Start: 11-08-2022 End: 11-08-2022 Patient encounter procedure Ankita Green APRN.CNP Work Phone: [facility] Comment on above: Nausea (Primary Dx); Pain of upper abdomen; Type 2 diabetes mellitus with peripheral neuropathy (HCC); RUQ pain; Gastroesophageal reflux disease, unspecified whether esophagitis present; Abdominal bloating; Acute left flank pain; Chest tightness Start: 10-29-2022 Refill Corrine Dani GONZALEZ Work Phone: [facility] Comment on above: Refill Request Start: 10-18-2022 Telephone encounter Brandy Ramirez MD Work Phone: General Surgery Comment on above: Appointment (Appoint ment with Dr. Ramirez for 10/18/22) Start: 10-18-2022 End: 10-18-2022 Patient encounter procedure Shayan [facility] Work Phone: [facility] Comment on above: Uncontrolled type 2 diabetes mellitus with hyperglycemia (HCC) (Primary Dx) Urinary frequency (P rimary Dx); Glucosuria; Acute left-sided low back pain without sciatica Start: 10-01-2022 Refill Corrine Dani PENNYPROFESSOR OF PHYSICS Work Phone: [facility] Comment on above: Refill Request Start: 09-26-2022 Refill Corrine [place] TILE MOLDER HAND.PROFESSOR OF PHYSICS Work Phone: [facility] Comment on above: Refill Request Start: 09-17-2022 ambulatory ELENA Tony cility:[facility] Start: 09-13-2022 End: 09-13-2022 Patient encounter procedure Shayan Martinez [facility] Work Phone: [facility] Comment on above: Uncontrolled type 2 diabetes mellitus with hyperglycemia (HCC) (Primary Dx) Refill Request Start: 09-07-2022 Documentation procedure Mammog bozena Coordinator [facility] Start: 09-07-2022 Letter encounter Mammography Coordinator [facility] Start: 09-06-2022 End: 09-06-2022 Subsequent hospital visit by physician Screen Mammo [facility] Mammogram Comment on above: Encounter for screen ing mammogram for malignant neoplasm of breast [Z12.31] Start: 08-30-2022 Refill Corrine Dani SONIN.PROFESSOR OF PHYSICS Work Phone: [facility] [place] Comment on above: Refill Request Start: 08-29-2022 Telephone encounter Jese gandhi DO Work Phone: [facility] [place] Comment on above: Reprint work excuses from a year ago Start: 08-04-2022 Refill Jese escobar DO Work Phone: [facility] [place] Comment on above: Refill Request Start: 07-27-2022 Refill Corrine Dani PURI.PROFESSOR OF PHYSICS Work Phone: [facility] [place] Comment on above: Refill Request Start: 07-24-2022 End: 07-24-2022 Patient encounter procedure Jese Zheng DO Work Phone: [facility] [place] Comment on above: Type 2 diabetes adi itus with diabetic polyneuropathy, with long-term current use of insulin (HCC) (Primary Dx); Encounter for screening mammogram for malignant neoplasm of breast; Need for pneumococcal 20-valent conjugate vaccination; Need for shingles vaccine; Type 2 diabetes mellitus with peripheral neuropathy (HCC); Other polyneuropathy; Influenza A; Generalized abdominal pain; Obesity, Class I, BMI 30-34.9 Start: 07-09-2022 Refill Corrine Russellscotty jacobs APRN.PROFESSOR OF PHYSICS Work Phone: [facility] Comment on above: Refill Request Start: 06-29-2022 Refill Jese Ramirez son DO Work Phone: [facility] [place] Comment on above: Refill Request Start: 06-25-2022 End: 06-25-2022 ambulatory Ankita Juliana PENNYPROFESSOR OF PHYSICS Work Phone: [facility] [place] Comment on above: Influenza A (Primary Dx); Persistent cough; Fever, unspecified fever cause Start: 06-25-2022 End: 06-25-2022 Telemedicine consultation with patient Ankita Dumontamos PENNYPROFESSOR OF PHYSICS Work Phone: [facility] [place] Start: 06-21-2022 End: 06-21-2022 Patient encounter procedure Shayanashely Villedago [facility] Work Phone: [facility] Comment on above: Uncontrolled type 2 diabetes mellitus with hyperglycemia (HCC) (Primary Dx); Essential hypertension Start: 05-30-2022 Telephone encounter Shayan Villedaarturo dodge [facility] Work Phone: [facility] Comment on above: Appointment Start: 05-29-2022 End: 05-29-2022 Patient encounter procedure Brandy Ramirez MD Work Phone: General Surgery Comment on above: Abdominal pain, unsp ecified abdominal location (Primary Dx); Change in bowel habits Start: 05-24-2022 End: 05-24-2022 Subsequent hospital visit by physician Ct Prep [facility] Cat Scan Comment on above: Nausea [R11.0] Start: 05-21-2022 End: 05-21-2022 Patient [facility] Work Phone: [facility] [place] Comment on above: Right flank pain (Pr imary Dx); RUQ pain; Chronic RLQ pain; Nausea; Nausea and vomiting, unspecified vomiting type Start: 05-20-2022 End: 05-20-2022 Patient encounter procedure Kanwal Campbell TILE MOLDER HAND.PROFESSOR OF PHYSICS Work Phone: [place] [facility] Comment on above: Acute right-sided lo w back pain without sciatica (Primary Dx) Start: 05-02-2022 Refill Corrine Almontejulio jacobs TILE MOLDER HAND.PROFESSOR OF PHYSICS Work Phone: [facility] [place] Comment on above: Refill Request Start: 05-02-2022 Refill Jese escobar DO Work Phone: [facility] [place] Comment on above: Refill Request Start: 04-27-2022 End: 04-27-2022 Patient encounter procedure Jese Zheng DO Work Phone: [facility] [place] Comment on above: Uncontrolled type 2 diabetes mellitus with hyperglycemia (HCC) (Primary Dx); Vitamin D deficiency; Vitamin B12 deficiency; Need for influenza vaccination; Need for shingles vaccine; Essential hypertension; Hyperlipidemia, mixed Start: 04-25-2022 End: 04-25-2022 Subsequent hospital visit by physician Bone Density [facility] Work Phone: Radiology Comment on above: Screening for osteop orosis [Z13.820] Start: 03-22-2022 Refill Corrine Zurjulio jacobs TILE MOLDER HAND.PROFESSOR OF PHYSICS Work Phone: [facility] [place] Comment on above: Refill Request Start: 03-05-2022 Refill Jese escobar DO Work Phone: [facility] Comment on above: Refill Request Start: 02-08-2022 End: 02-08-2022 Patient encounter procedure Shayanashely Villedago [facility] Work Phone: [facility] Comment on above: Uncontrolled type 2 diabetes mellitus with hyperglycemia (HCC) (Primary Dx); Medication management Start: 01-25-2022 Telephone encounter Shayanashely Villedaarturo dodge [facility] Work Phone: [facility] Comment on above: Missed Appointment Start: 01-02-2022 Telephone encounter Jese gandhi DO Work Phone: [facility] [place] Comment on above: Results Start: 01-01-2022 Telephone encounter Jese gandhi DO Work Phone: [facility] Comment on above: Results Start: 12-30-2021 End: 12-30-2021 Subsequent hospital visit by physician Radhika [facility] [place] Work Phone: Radiology Comment on above: Ingrown left greater toenail [L60.0] Start: 12-30-2021 End: 12-30-2021 Patient encounter procedure Jese Zheng DO Work Phone: [facility] Comment on above: Ingrown left greater toenail (Primary Dx); Localized swelling of left foot; Pain of left heel; Injury of left heel, subsequent encounter; Left foot pain Start: 12-27-2021 Telephone encounter Jese gandhi DO Work Phone: [facility] Comment on above: Patient Update; Sybil ent Question Start: 12-26-2021 Refill Emma jaimes TILE MOLDER HAND.PROFESSOR OF PHYSICS Work Phone: Neurology Comment on above: Refill Request Start: 12-21-2021 Telephone encounter Shayan dodge [facility] Work Phone: [facility] Comment on above: Results (A1c) Orders Start: 12-20-2021 End: 12-20-2021 Patient encounter procedure Ankita Juliana PURI.PROFESSOR OF PHYSICS Work Phone: [facility] Comment on above: Cellulitis of left f oot (Primary Dx) Start: 11-15-2021 Telephone encounter Jese Morris jamehola DO Work Phone: [facility] Comment on above: Results Start: 11-14-2021 ambulatory Jese Ramirez luz DO Work Phone: [facility] Comment on above: xrays Start: 11-14-2021 E-mail encounter fro m caregiver Jese Zheng DO Work Phone: [facility] Start: 11-14-2021 End: 11-14-2021 Subsequent hospital visit by physician Radhika [facility] [place] Work Phone: Radiology Comment on above: Injury of left thumb , initial encounter [S69.92XA] Start: 11-14-2021 End: 11-14-2021 Patient encounter procedure Jese Zheng DO Work Phone: [facility] Comment on above: Uncontrolled type 2 diabetes mellitus with hyperglycemia (HCC) (Primary Dx); Essential hypertension; Chronic constipation; Injury of left thumb, initial encounter; Injury of left wrist, initial encounter; Hyperlipidemia, mixed; Generalized abdominal pain; Obesity, Class I, BMI 30-34.9 Start: 10-30-2021 Refill Corrine Dusty jacobs APRN.CNP Work Phone: [facility] Comment on above: Refill Request Start: 10-18-2021 End: 10-18-2021 Subsequent hospital visit by physician [facility] ([facility]) Work Phone: Cat Scan Comment on above: Adverse effect of tr eatment, subsequent encounter [T88.9XXD] Start: 10-16-2021 Telephone encounter Brandy Ramirez MD Work Phone: General Surgery Comment on above: Patient Question Start: 10-13-2021 End: 10-13-2021 Patient encounter procedure Jese Zheng DO Work Phone: [facility] Comment on above: Uncontrolled type 2 diabetes mellitus with hyperglycemia (HCC) (Primary Dx); Essential hypertension; Hyperlipidemia, mixed; Generalized abdominal pain Start: 04-10-2021 End: 04-10-2021 Subsequent hospital visit by physician Xr [facility] [place] Work Phone: Radiology Comment on above: Generalized abdomina l pain [R10.84] Start: 12-01-2020 End: 12-01-2020 Subsequent hospital visit by physician Xr [facility] [place] Work Phone: Radiology Comment on above: Acute right-sided lo w back pain with right-sided sciatica [M54.41] Procedures Date Procedure Procedure Detail Performing Clinician Start: 02-25-[address] Jese Zheng DO Work Phone: Start: 02-24-2025 Serum inorganic phos phate measurement Dr. Jese Zheng DO Work Phone: Start: 02-23-2025 Computerized axial tomography of lumbar spine with contrast Dr. Jese Zheng DO Work Phone: Start: 02-23-2025 CT of abdomen and pe lvis without contrast Dr. Jese Zheng DO Work Phone: Start: 02-23-2025 CT of head without contrast Dr. Jese Zheng DO Work Phone: Start: 02-22-2025 X-ray of chest, PA a nd lateral views Dr. Jese Zheng DO Work Phone: Start: 02-22-[address] Jese Zheng DO Work Phone: Start: 02-22-2025 Ecg routine ecg w/le ast 12 lds i&r only Selin Garcia TILE MOLDER HAND.PROFESSOR OF PHYSICS Work Phone: Start: 12-30-2024 Hemoglobin A1c/Hemoglobin.total in Blood Jese Zheng DO Work Phone: Start: 09-23-2024 Hemoglobin A1c/Hemoglobin.total in Blood Jese Zheng DO Work Phone: Start: 04-14-2024 Screening digital br east tomosynthesis bi Bulk Order Provider Start: 11-27-2023 Hemoglobin A1c/Hemoglobin.total in Blood Jese Zavalaon DO Work Phone: Start: 09-20-2023 COVID & INFLUENZA A/ B & RSV NAAT, ROUTINE Jese Zheng DO Work Phone: Start: 05-28-2023 Dup-scan xtr veins unilateral/limited study Jese Zheng DO Work Phone: Start: 05-27-2023 Hemoglobin A1c/Hemoglobin.total in Blood Jese Zheng DO Work Phone: Start: 05-27-2023 Dynamic Signal COVI D-19 VACCINE ( SEASON) AGE 12+ YR Jese Zheng DO Work Phone: Start: 05-27-2023 INFLUENZA VACCINE, A GE 6 MO - 64 YR, QUADRIVALENT (AFLURIA, FLULAVAL, FLUZONE) Jese Zheng DO Work Phone: Start: 02-26-2023 Ct thorax w/o contra st material Jese Zheng DO Work Phone: Start: 02-19-2023 Radiologic exam ches t 2 views Jese Zheng DO Work Phone: Start: 12-06-2022 Ultrasound elastogra phy of liver Start: 11-29-2022 Hepatobil syst imag inc gb w/pharma intervenj Ankita Juliana TILE MOLDER HAND.PROFESSOR OF PHYSICS Work Phone: Start: 11-08-2022 Us abdominal real ti me w/image limited Ankita Juliana TILE MOLDER HAND.PROFESSOR OF PHYSICS Work Phone: Start: 11-08-2022 Radiologic exam ches t 2 views Ankita Juliana TILE MOLDER HAND.PROFESSOR OF PHYSICS Work Phone: Start: 11-08-2022 Culture bacterial quanttative colony count urine Ankita Juliana TILE MOLDER HAND.PROFESSOR OF PHYSICS Work Phone: Start: 11-08-2022 Urnls dip stick/tabl et rgnt auto w/o microscopy Ankita Juliana TILE MOLDER HAND.PROFESSOR OF PHYSICS Work Phone: Start: 11-08-2022 Hemoglobin A1c/Hemoglobin.total in Blood Ankita Juliana TILE MOLDER HAND.PROFESSOR OF PHYSICS Work Phone: Start: 10-18-2022 Urnls dip stick/tabl et rgnt auto w/o microscopy Daxa Ceballos PA-C Work Phone: Start: 09-17-2022 Colonoscopy Corrine Tanna son TILE MOLDER HAND.PROFESSOR OF PHYSICS Work Phone: Start: 09-06-2022 CHANTELL SCREENING W CAROLYN Zheng DO Work Phone: Start: 09-06-2022 Mammography Mammograph y Coordinator Start: 05-24-2022 Ct abdomen & pelvis w/o contrast material Ankita Juliana TILE MOLDER HAND.PROFESSOR OF PHYSICS Work Phone: Start: 05-20-2022 Urnls dip stick/tabl et rgnt auto w/o microscopy Kanwal Campbell TILE MOLDER HAND.PROFESSOR OF PHYSICS Work Phone: Start: 04-27-2022 INFLUENZA VACCINE QUADRIVALENT 6 MO - 64 YRS IM Jese Estradarison DO Work Phone: Start: 04-25-2022 Dxa bone density balaji dy 1/> sites axial skel Jese Estradarison DO Work Phone: Start: 12-30-2021 Radex foot complete minimum 3 views Jese Estradarison DO Work Phone: Start: 11-14-2021 Radex hand minimum 3 views Jese Estradarison DO Work Phone: Start: 10-18-2021 Ct abdomen & pelvis w/o contrast material Brandy Ramirez MD Work Phone: Start: 10-09-2021 Adult depression scr eening assessment Jese Zheng DO Work Phone: Start: 08-22-2021 Mammography Jese Gar rison DO Work Phone: Start: 04-10-2021 Radiologic exam abdo men 2 views Tamara Bauer TILE MOLDER HAND.PROFESSOR OF PHYSICS, DNP Work Phone: Start: 12-01-2020 Radex spine lumbosac ral 2/3 views Tre Zendejas MD Work Phone: Start: 08-16-2015 Colonoscopy Jese Gar rison DO Work Phone: Plan of Treatment Date Care Activity Detail Author Start: 12-30-2034 Urine microalbumin profile DTaP,Tdap,Td Vaccine (4 - Td or Tdap) [facility] Start: 09-17-2032 Colonoscopy COLONOSCOPY [facility] Start: 09-17-2032 COLORECTAL CANCER SCREENING COLORECTAL CANCER SCREENING [facility] Start: 09-17-2032 Screening for malign ant neoplasm of colon [facility] Start: 02-22-2026 Annual PCP Team Residential Therapist koby Disease Visit Annual PCP Team Chronic Disease Visit [facility] Start: 12-30-2025 Annual PCP Team Residential Therapist koby Disease Visit Annual PCP Team Chronic Disease Visit [facility] Start: 09-23-2025 Annual PCP Team Residential Therapist koby Disease Visit Annual PCP Team Chronic Disease Visit [facility] Start: 08-16-2025 Colonoscopy COLONOSCOPY [facility] Start: 08-16-2025 COLORECTAL CANCER SCREENING COLORECTAL CANCER SCREENING [facility] Start: 08-05-2025 Diabetic foot examination Diabetic Foot Exam [facility] Start: 06-23-2025 Annual PCP Team Residential Therapist koby Disease Visit Annual PCP Team Chronic Disease Visit [facility] Start: 04-23-2025 Hemoglobin A1c measurement HbA1C [facility] Start: 04-14-2025 Screening for malign ant neoplasm of breast Mammogram Screening [facility] Start: 04-06-2025 End: 04-06-2025 Patient encounter procedure 04/06/2025 2:00 PM EDT Office Visit [facility] [place] [address] [place], [place] [id number] Jese Zheng DO [address] [place], [place] [address] 3 month follow up [facility] [place] Comment on above: 3 month follow up Start: 04-01-2025 Hemoglobin A1c measurement HbA1C [facility] Start: 03-22-2025 Influenza vaccination Influenza Vacc ine (#1) [facility] Start: 03-19-2025 Hepatitis B screening Urine Al bumin:Creatinine Ratio [facility] Start: 03-19-2025 Hepatitis B surface antibody level LDL Cholesterol [facility] Start: 03-17-2025 Annual PCP Team Residential Therapist koby Disease Visit Annual PCP Team Chronic Disease Visit [facility] Start: 02-25-2025 End: 02-25-2025 Patient encounter procedure 02/25/2025 3:00 PM EDT Office Visit [facility] [address] [place] [address] Susana Garcia, [facility] [address] [place] [address] DM f/up [facility] Comment on above: DM f/up Start: 02-25-2025 [facility] Start: 02-24-2025 O[facility] therapy [facility] Start: [facility]25 [facility] Start: 02-23-2025 Catheterization of vein [facility] Start: 02-23-2025 Notification of physician [facility] Start: 02-23-2025 Preoperative care [facility] Start: 02-23-2025 [facility] Start: 02-23-2025 US Heart [facility] Start: 02-22-2025 Following clinical pathway protocol [facility] Start: 02-22-2025 Assessment of risk o f venous thromboembolism [facility] Start: 02-22-2025 Insertion of cathete r into peripheral vein [facility] Start: 02-22-2025 Measuring intake and output [facility] Start: 02-22-2025 Providing care accor ding to standard [facility] Start: 02-22-2025 Referral to risk investigator [facility] Start: 02-22-2025 [facility] Start: 02-22-2025 Verification routine [facility] Start: 02-22-2025 Admission procedure [facility] Start: 02-22-2025 Hospital admission, emergency, from emergency room, medical nature [facility] Start: 02-22-2025 [facility] Start: 02-22-2025 End: 02-22-2025 [facility] Start: 02-22-2025 Patient referral to dietitian [facility] Start: 01-21-2025 End: 01-21-2025 Patient encounter procedure 01/21/2025 3:00 PM EDT Office Visit [facility] [address] [place] [address] [facility] [address] [place] [address] DM f/up [facility] Comment on above: DM f/up Start: 01-21-2025 End: 04-22-2025 Basic metabolic 2000 panel - Serum or Plasma [facility] Work Phone: Comment on above: Expected: 01/21/2025 , Expires: 04/22/2025 Start: 12-30-2024 End: 12-30-2024 Patient encounter procedure 12/30/2024 2:40 PM EDT Office Visit [facility] [place] [address] [place] [address] Jese Zheng DO [address] [facility] [place] [id number] 3 month follow up [facility] [place] Comment on above: 3 month follow up Start: 12-30-2024 End: 03-31-2025 Urinalysis complete panel - Urine URINALYSIS (WITH MICROSCOPIC) WITH CULTURE IF INDICATED Lab Routine Dysuria Expected: 12/30/2024, Expires: 03/31/2025 [facility] Work Phone: Comment on above: Expected: 12/30/2024 , Expires: 03/31/2025 Start: 12-24-2024 Hemoglobin A1c measurement HbA1C [facility] Start: 11-26-2024 End: 11-26-2024 Patient encounter procedure 11/26/2024 2:30 PM EDT Office Visit Pharm [facility] [address] [place] [address] Susana Garcia, [facility] [address], [place] [phone] DM f/up [facility] Comment on above: DM f/up Start: 11-26-2024 Annual PCP Team Residential Therapist koby Disease Visit Annual PCP Team Chronic Disease Visit [facility] Start: 11-26-2024 BP Controlled (<130/80) BP Controlle d (<130/80) [facility] Start: 10-29-2024 Glaucoma screening Dilated Retinal E xam [facility] Start: 2024 RSV Vaccine (1 - Ris k 60-74 years 1-dose series) RSV Vaccine (1 - Risk 60-74 years 1-dose series) [facility] Start: 10-18-2024 Hemoglobin A1c measurement HbA1C [facility] Start: 09-23-2024 End: 09-23-2024 Patient encounter procedure 09/23/2024 3:00 PM EST Office Visit [facility] [address] [place] [address] Jese Zheng DO [address] [place] [address] 3 month follow up [facility] [place] Comment on above: 3 month follow up Start: 09-19-2024 Annual PCP Team Residential Therapist koby Disease Visit Annual PCP Team Chronic Disease Visit [facility] Start: 09-04-2024 Diabetic foot examination Diabetic Foot Exam [facility] Start: 09-03-2024 End: 09-03-2024 Patient encounter procedure 09/03/2024 2:30 PM EST Office Visit [facility] [address] [place] [address] [facility] [address] [place] [address] DM f/up [facility] Comment on above: DM f/up Start: 08-27-2024 Annual PCP Team Residential Therapist koby Disease Visit Annual PCP Team Chronic Disease Visit [facility] Start: 08-27-2024 Hepatitis B surface antibody level LDL Cholesterol [facility] Start: 07-23-2024 End: 07-23-2024 Patient encounter procedure 07/23/2024 2:30 PM EST Office Visit [facility] [address] [facility] [place] [address] [facility] [address] [place] [address] DM f/up [facility] Comment on above: DM f/up Start: 06-23-2024 End: 06-23-2024 Patient encounter procedure 06/23/2024 2:40 PM EST Office Visit [facility] [place] [address] [place] [address] Jese Zheng DO [address] [place], [place] [address] 3-4 month follow up [facility] [place] Comment on above: 3-4 month follow up Start: 06-19-2024 Hemoglobin A1c measurement HbA1C [facility] Start: 06-04-2024 End: 06-04-2024 Patient encounter procedure 06/04/2024 3:30 PM EST Office Visit [facility] [address] [place], [place] [address] [place] [address], [place] [phone] DM f/up Pharm [facility] Comment on above: DM f/up Start: 05-28-2024 BP Controlled (<130/80) BP Controlle d (<130/80) [facility] Start: 05-28-2024 Glaucoma screening Dilated Retinal E xam [facility] Start: 05-28-2024 Hepatitis C antibody , confirmatory test Dilated Retinal Exam [facility] Start: 05-27-2024 Annual PCP Team Residential Therapist koby Disease Visit Annual PCP Team Chronic Disease Visit [facility] Start: 04-23-2024 End: 04-23-2024 Patient encounter procedure 04/23/2024 3:30 PM EDT Office Visit [facility] [address] [place], [place] [address] [place] [address] [place] [address] DM f/up [facility] Comment on above: DM f/up Start: 04-14-2024 End: 04-14-2024 Patient encounter procedure 04/14/2024 5:00 PM EDT Appointment [facility] [address] [place] [phone] CHANTELL SCREENING W CAROLYN [facility] Comment on above: CHANTELL SCREENING W CAROLYN Start: 03-31-2024 End: 03-31-2024 Patient encounter procedure 03/31/2024 2:40 PM EDT Appointment Mammogram [address] [place], [place] [id number] Encounter for screening mammogram for breast cancer [Z12.31 Mammogram Comment on above: Encounter for screen ing mammogram for breast cancer [Z12.31 Start: 03-22-2024 Covid-19 Vaccine () Covid-19 Vaccine () [facility] Start: 03-22-2024 Influenza vaccination Influenza Vacc ine (#1) [facility] Start: 03-17-2024 End: 03-17-2024 Patient encounter procedure 03/17/2024 2:40 PM EDT Office Visit [facility] [place] [address] [place] [address] Jese Zheng DO [address] [place] [address] 3 month follow up [facility] [place] Comment on above: 3 month follow up Start: 03-17-2024 End: 06-16-2024 25-hydroxyvitamin D3 [Mass/volume] in Serum or Plasma VITAMIN D 25 HYDROXY Lab Routine Vitamin D deficiency Expected: 03/17/2024, Expires: 06/16/2024 [facility] Work Phone: Comment on above: Expected: 03/17/2024 , Expires: 06/16/2024 Start: 03-17-2024 End: 06-16-2024 CBC W Auto Differential panel - Blood COMPLETE BLOOD COUNT AND DIFFERENTIAL Lab Routine Type 2 diabetes mellitus without complication, with long-term current use of insulin (HCC) Dyslipidemia Expected: 03/17/2024, Expires: 06/16/2024 [facility] Comment on above: Expected: 03/17/2024 , Expires: 06/16/2024 Start: 03-17-2024 End: 06-16-2024 Cobalamin (Vitamin B12) [Mass/volume] in Serum or Plasma VITAMIN B12 Lab Routine Vitamin B12 deficiency Expected: 03/17/2024, Expires: 06/16/2024 [facility] Comment on above: Expected: 03/17/2024 , Expires: 06/16/2024 Start: 03-17-2024 End: 06-16-2024 Comprehensive metabolic 2000 panel - Serum or Plasma COMPREHENSIVE METABOLIC PANEL Lab Routine Type 2 diabetes mellitus without complication, with long-term current use of insulin (HCC) Dyslipidemia Expected: 03/17/2024, Expires: 06/16/2024 [facility] Comment on above: Expected: 03/17/2024 , Expires: 06/16/2024 Start: 03-17-2024 End: 06-16-2024 Hemoglobin A1c in Blood HEMOGLOBIN A1C Lab Routine Type 2 diabetes mellitus without complication, with long-term current use of insulin (HCC) Expected: 03/17/2024, Expires: 06/16/2024 [facility] Comment on above: Expected: 03/17/2024 , Expires: 06/16/2024 Start: 03-17-2024 End: 06-16-2024 Lipid 1996 panel - Serum or Plasma LIPID PANEL BASIC Lab Routine Dyslipidemia Expected: 03/17/2024, Expires: 06/16/2024 [facility] Comment on above: Expected: 03/17/2024 , Expires: 06/16/2024 Start: 02-27-2024 End: 05-28-2024 Comprehensive metabolic 2000 panel - Serum or Plasma COMPREHENSIVE METABOLIC PANEL Lab Routine Type 2 diabetes mellitus without complication, with long-term current use of insulin (HCC) Expected: 02/27/2024, Expires: 05/28/2024 [facility] Comment on above: Expected: 02/27/2024 , Expires: 05/28/2024 Start: 02-27-2024 End: 05-28-2024 Hemoglobin A1c in Blood HEMOGLOBIN A1C Lab Routine Type 2 diabetes mellitus without complication, with long-term current use of insulin ([facility]) Expected: 02/27/2024, Expires: 05/28/2024 [facility] Work Phone: Comment on above: Expected: 02/27/2024 , Expires: 05/28/2024 Start: 02-27-2024 Hemoglobin A1c measurement HbA1C [facility] Start: 02-27-2024 End: 05-28-2024 Lipid 1996 panel - Serum or Plasma LIPID PANEL BASIC Lab Routine Dyslipidemia Expected: 02/27/2024, Expires: 05/28/2024 [facility] Comment on above: Expected: 02/27/2024 , Expires: 05/28/2024 Start: 02-27-2024 End: 05-28-2024 Microalbumin/Creatinine [Mass Ratio] in Urine ALBUMIN/CREATININE RATIO, URINE Lab Routine Type 2 diabetes mellitus without complication, with long-term current use of insulin (HCC) Expected: 02/27/2024, Expires: 05/28/2024 [facility] Comment on above: Expected: 02/27/2024 , Expires: 05/28/2024 Start: 02-20-2024 ANNUAL PCP TEAM SUPERVISORY CBP OFFICER KOBY DISEASE VISIT ANNUAL PCP TEAM CHRONIC DISEASE VISIT [facility] Start: 02-20-2024 Hepatitis B surface antibody level LDL CHOLESTEROL [facility] Start: 02-06-2024 End: 02-06-2024 Patient encounter procedure 02/06/2024 3:00 PM EDT Office Visit Pharm [facility] [address] [place] [address] [facility] [address], [place] [id number] DM f/up Pharm [facility] Comment on above: DM f/up Start: 01-29-2024 Urine microalbumin profile [facility] Start: 01-09-2024 End: 01-09-2024 Patient encounter procedure 01/09/2024 3:30 PM EDT Office Visit Pharm [facility] [address] [place] [address] [facility] [address], [place] [phone] DM f/up [facility] Comment on above: DM f/up Start: 12-26-2023 End: 12-26-2023 Patient encounter procedure Pharm [facility] Comment on above: DM f/up Carotid atherosclero sis, bilateral [I65.23] Start: 12-10-2023 End: 12-10-2023 Patient encounter procedure 12/10/2023 2:20 PM EDT Appointment Mammogram [address] [place] [address] Encounter for screening mammogram for breast cancer [Z12.31] Mammogram Comment on above: Encounter for screen ing mammogram for breast cancer [Z12.31] Start: 11-27-2023 End: 11-27-2023 Patient encounter procedure 11/27/2023 1:40 PM EDT Office Visit [facility] [place] [address] [place], [place] [address] Jese Zheng DO [address] [facility] [place] [address] 3 Month follow up [facility] [place] Comment on above: 3 Month follow up Start: 11-25-2023 Hemoglobin A1c measurement HbA1C [facility] Start: 11-16-2023 BP CONTROLLED (<130/80) BP CONTROLLE D (<130/80) [facility] Start: 11-09-2023 ANNUAL PCP TEAM SUPERVISORY CBP OFFICER KOBY DISEASE VISIT ANNUAL PCP TEAM CHRONIC DISEASE VISIT [facility] Start: 09-06-2023 Mammography [facility] Start: 09-06-2023 Screening for malign ant neoplasm of breast Mammogram Screening [facility] Start: 08-27-2023 End: 11-26-2023 25-hydroxyvitamin D3 [Mass/volume] in Serum or Plasma [facility] Work Phone: Comment on above: Expected: 08/27/2023 , Expires: 11/26/2023 Start: 08-27-2023 End: 11-26-2023 Comprehensive metabolic 2000 panel - Serum or Plasma [facility] Work Phone: Comment on above: Expected: 08/27/2023 , Expires: 11/26/2023 Start: 08-27-2023 End: 11-26-2023 Hemoglobin A1c in Blood [facility] Work Phone: Comment on above: Expected: 08/27/2023 , Expires: 11/26/2023 Start: 08-27-2023 Hemoglobin A1c measurement HbA1C [facility] Start: 08-27-2023 Hemoglobin A1c/Hemoglobin.total in Blood HbA1C [facility] Start: 08-27-2023 End: 11-26-2023 Lipid 1996 panel - Serum or Plasma [facility] Work Phone: Comment on above: Expected: 08/27/2023 , Expires: 11/26/2023 Start: 08-27-2023 End: 11-26-2023 Magnesium [Mass/volume] in Serum or Plasma [facility] Work Phone: Comment on above: Expected: 08/27/2023 , Expires: 11/26/2023 Start: 08-27-2023 End: 11-26-2023 Thyrotropin [Units/volume] in Serum or Plasma [facility] Work Phone: Comment on above: Expected: 08/27/2023 , Expires: 11/26/2023 Start: 07-24-2023 ANNUAL PCP TEAM SUPERVISORY CBP OFFICER KOBY DISEASE VISIT ANNUAL PCP TEAM CHRONIC DISEASE VISIT [facility] Start: 07-24-2023 Hepatitis B screening URINE AL BUMIN:CREATININE RATIO [facility] Start: 07-24-2023 Hepatitis B surface antibody level LDL CHOLESTEROL [facility] Start: 07-04-2023 3 comp foot exam completed DIABETIC FOOT EXAM [facility] Start: 07-04-2023 Diabetic foot examination Diabetic Foot Exam [facility] Start: 06-25-2023 ANNUAL PCP TEAM SUPERVISORY CBP OFFICER KOBY DISEASE VISIT ANNUAL PCP TEAM CHRONIC DISEASE VISIT [facility] Start: 06-21-2023 BP CONTROLLED (<130/80) BP CONTROLLE D (<130/80) [facility] Start: 05-27-2023 End: 08-26-2023 Urinalysis complete panel - Urine URINALYSIS, WITH MICROSCOPIC Lab Routine Type 2 diabetes mellitus with peripheral neuropathy (HCC) Expected: 05/27/2023, Expires: 08/26/2023 [facility] Work Phone: Comment on above: Expected: 05/27/2023 , Expires: 08/26/2023 Start: 05-22-2023 Hemoglobin A1c/Hemoglobin.total in Blood HBA1C [facility] Start: 05-21-2023 ANNUAL PCP TEAM SUPERVISORY CBP OFFICER KOBY DISEASE VISIT ANNUAL PCP TEAM CHRONIC DISEASE VISIT [facility] Start: 04-27-2023 ANNUAL PCP TEAM SUPERVISORY CBP OFFICER KOBY DISEASE VISIT ANNUAL PCP TEAM CHRONIC DISEASE VISIT [facility] Start: 04-25-2023 Hepatitis B surface antibody level LDL CHOLESTEROL [facility] Start: 03-22-2023 Covid-19 Vaccine () Covid-19 Vaccine () [facility] Start: 03-22-[address] [facility] Start: 03-06-2023 ANNUAL PCP TEAM SUPERVISORY CBP OFFICER KOBY DISEASE VISIT ANNUAL PCP TEAM CHRONIC DISEASE VISIT [facility] Start: 02-07-2023 Hemoglobin A1c/Hemoglobin.total in Blood HBA1C [facility] Start: 12-30-2022 ANNUAL PCP TEAM SUPERVISORY CBP OFFICER KOBY DISEASE VISIT ANNUAL PCP TEAM CHRONIC DISEASE VISIT [facility] Start: 12-30-2022 BP CONTROLLED (<130/80) BP CONTROLLE D (<130/80) [facility] Start: 12-20-2022 ANNUAL PCP TEAM SUPERVISORY CBP OFFICER KOBY DISEASE VISIT ANNUAL PCP TEAM CHRONIC DISEASE VISIT [facility] Start: 12-20-2022 Hepatitis B surface antibody level LDL CHOLESTEROL [facility] Start: 11-14-2022 ANNUAL PCP TEAM SUPERVISORY CBP OFFICER KOBY DISEASE VISIT ANNUAL PCP TEAM CHRONIC DISEASE VISIT [facility] Start: 10-22-2022 End: 12-22-2022 Hemoglobin A1c in Blood HGB A1C Lab Routine Uncontrolled type 2 diabetes mellitus with hyperglycemia (HCC) Expected: 10/22/2022, Expires: 12/22/2022 [facility] Work Phone: Comment on above: Expected: 10/22/2022 , Expires: 12/22/2022 Start: 10-22-2022 Hemoglobin A1c/Hemoglobin.total in Blood HBA1C [facility] Start: 10-13-2022 ANNUAL PCP TEAM SUPERVISORY CBP OFFICER KOBY DISEASE VISIT ANNUAL PCP TEAM CHRONIC DISEASE VISIT [facility] Start: 10-09-2022 Adult depression screening assessment DEPRESSION SCREENING [facility] Start: 08-30-2022 Hepatitis C antibody , confirmatory test DILATED RETINAL EXAM [facility] Start: 08-22-2022 Mammography MAMMOGRAM [facility] Start: 08-14-2022 3 comp foot exam completed DIABETIC FOOT EXAM [facility] Start: 08-14-2022 BP CONTROLLED (<130/80) BP CONTROLLE D (<130/80) [facility] Start: 07-28-2022 End: 09-27-2022 25-hydroxyvitamin D3 [Mass/volume] in Serum or Plasma VITAMIN D 25 HYDROXY Lab Routine Vitamin D deficiency Expected: 07/28/2022, Expires: 09/27/2022 [facility] Work Phone: Comment on above: Expected: 07/28/2022 , Expires: 09/27/2022 Start: 07-28-2022 End: 09-27-2022 ALBUMIN/CREAT RATIO RND UR ALBUMIN/CREAT RATIO RND UR Lab Routine Uncontrolled type 2 diabetes mellitus with hyperglycemia (HCC) Expected: 07/28/2022, Expires: 09/27/2022 [facility] Work Phone: Comment on above: Expected: 07/28/2022 , Expires: 09/27/2022 Start: 07-28-2022 End: 09-27-2022 Cobalamin (Vitamin B12) [Mass/volume] in Serum or Plasma VITAMIN B12 BLOOD Lab Routine Vitamin B12 deficiency Expected: 07/28/2022, Expires: 09/27/2022 [facility] Work Phone: Comment on above: Expected: 07/28/2022 , Expires: 09/27/2022 Start: 07-28-2022 End: 09-27-2022 Comprehensive metabolic 2000 panel - Serum or Plasma COMP METABOLIC PANEL Lab Routine Uncontrolled type 2 diabetes mellitus with hyperglycemia (HCC) Expected: 07/28/2022, Expires: 09/27/2022 [facility] Work Phone: Comment on above: Expected: 07/28/2022 , Expires: 09/27/2022 Start: 07-28-2022 End: 09-27-2022 Hemoglobin A1c in Blood HGB A1C Lab Routine Uncontrolled type 2 diabetes mellitus with hyperglycemia (HCC) Expected: 07/28/2022, Expires: 09/27/2022 [facility] Work Phone: Comment on above: Expected: 07/28/2022 , Expires: 09/27/2022 Start: 07-28-2022 End: 09-27-2022 Lipid 1996 panel - Serum or Plasma LIPID PANEL BASIC Lab Routine Hyperlipidemia, mixed Expected: 07/28/2022, Expires: 09/27/2022 [facility] Work Phone: Comment on above: Expected: 07/28/2022 , Expires: 09/27/2022 Start: 07-26-2022 Hemoglobin A1c/Hemoglobin.total in Blood HBA1C [facility] Start: 07-24-2022 End: 09-23-2022 ALBUMIN/CREAT RATIO RND UR ALBUMIN/CREAT RATIO RND UR Lab Routine Type 2 diabetes mellitus with diabetic polyneuropathy, with long-term current use of insulin (HCC) Expected: 07/24/2022, Expires: 09/23/2022 [facility] Work Phone: Comment on above: Expected: 07/24/2022 , Expires: 09/23/2022 Start: 06-22-2022 SHINGRIX VACCINE (2 of 2) SHINGRIX VACCINE (2 of 2) [facility] Start: 05-09-2022 Hepatitis B screening URINE AL BUMIN:CREATININE RATIO [facility] Start: 05-09-2022 Hepatitis B surface antibody level LDL CHOLESTEROL [facility] Start: 04-23-2022 COVID-19 VACCINE (4 - Booster for Pfizer series) COVID-19 VACCINE (4 - Booster for Pfizer series) [facility] Start: 03-22-2022 Hemoglobin A1c/Hemoglobin.total in Blood HBA1C [facility] Start: 03-22-2022 Influenza vaccination INFLUENZA (#1) [facility] Start: 02-16-2022 COVID-19 VACCINE (4 - Booster for Pfizer series) COVID-19 VACCINE (4 - Booster for Pfizer series) [facility] Start: 02-16-2022 COVID-19 VACCINE (4 - Pfizer series) COVID-19 VACCINE (4 - Pfizer series) [facility] Start: 01-18-2022 End: 03-20-2022 CBC panel - Blood by Automated count CBC Lab Routine Hyperlipidemia, mixed Expected: 01/18/2022, Expires: 03/20/2022 [facility] Work Phone: Comment on above: Expected: 01/18/2022 , Expires: 03/20/2022 Start: 01-18-2022 End: 03-20-2022 Comprehensive metabolic 2000 panel - Serum or Plasma COMP METABOLIC PANEL Lab Routine Hyperlipidemia, mixed Expected: 01/18/2022, Expires: 03/20/2022 [facility] Work Phone: Comment on above: Expected: 01/18/2022 , Expires: 03/20/2022 Start: 01-18-2022 End: 03-20-2022 Hemoglobin A1c/Hemoglobin.total in Blood HGB A1C Lab Routine Uncontrolled type 2 diabetes mellitus with hyperglycemia (HCC) Expected: 01/18/2022, Expires: 03/20/2022 [facility] Work Phone: Comment on above: Expected: 01/18/2022 , Expires: 03/20/2022 Start: 01-18-2022 End: 03-20-2022 LIPID PANEL BASIC LIPID PANEL BASIC Lab Routine Hyperlipidemia, mixed Expected: 01/18/2022, Expires: 03/20/2022 [facility] Work Phone: Comment on above: Expected: 01/18/2022 , Expires: 03/20/2022 Start: 12-16-2021 COVID-19 VACCINE (3 - Booster for Pfizer series) COVID-19 VACCINE (3 - Booster for Pfizer series) [facility] Start: 11-12-2021 Hemoglobin A1c/Hemoglobin.total in Blood HBA1C [facility] Start: 10-18-2021 End: 12-18-2021 Fructosamine [Moles/volume] in Serum or Plasma FRUCTOSAMINE BLD Lab Routine Uncontrolled type 2 diabetes mellitus with hyperglycemia (HCC) Expected: 10/18/2021, Expires: 12/18/2021 [facility] Work Phone: Comment on above: Expected: 10/18/2021 , Expires: 12/18/2021 Start: 07-22-2021 DEPRESSION ASSESSMENT DEPRESSION ASS ESSMENT [facility] Start: 2014 SHINGRIX VACCINE (1 of 2) SHINGRIX VACCINE (1 of 2) [facility] Start: 01-26-2014 PNEUMOCOCCAL (2 - PCV) PNEUMOCOCCAL (2 - PCV) [facility] Start: 2009 COLOGUARD (FIT-DNA) COLOGUARD (FIT-D NA) [facility] Start: [address] COLONOGRAPHY [facility] Start: 2009 FECAL OCCULT BLOOD FECAL OCCULT BLOO D [facility] Start: 2009 Screening for malign ant neoplasm of colon [facility] Start: 2009 SIGMOIDOSCOPY SIGMOIDOSCOPY [facility] Start: 10-20-1983 HEPATITIS B (1 of 3 - Risk 3-dose series) HEPATITIS B (1 of 3 - Risk 3-dose series) [facility] Start: 10-20-1983 Hepatitis B Vaccine (1 of 3 - 19+ 3-dose series) Hepatitis B Vaccine (1 of 3 - 19+ 3-dose series) [facility] Start: 1982 Anxiety Screening Anxiety Screening [facility] Start: 1965 HEPATITIS B (1 of 3 - 3-dose series) HEPATITIS B (1 of 3 - 3-dose series) [facility] Start: 1965 Hepatitis B Vaccine (1 of 3 - 3-dose series) Hepatitis B Vaccine (1 of 3 - 3-dose series) [facility] Bacteria identified in Urine by Culture URINE CULTURE Microbiology Routine Acute right-sided low back pain without sciatica Ordered: 05/20/2022 [facility] Work Phone: Comment on above: Ordered: 05/20/2022 Bacteria identified in Urine by Culture URINE CULTURE Microbiology Routine Urinary frequency Ordered: 10/18/2022 [facility] Work Phone: Comment on above: Ordered: 10/18/2022 End: 05-29-2023 COLONOSCOPY DIAGNOSTIC COLONOSCOPY DIAGNOSTIC Endoscopy Routine Abdominal pain, unspecified abdominal location Change in bowel habits 1 Occurrences starting 05/29/2022 until 05/29/2023 [facility] Work Phone: Comment on above: 1 Occurrences starti ng 05/29/2022 until 05/29/2023 End: 06-20-2023 Ct abdomen & pelvis w/o contrast material CT ABD/PEL WO IVCON Radiology STAT Nausea Right flank pain RUQ pain Chronic RLQ pain Nausea and vomiting, unspecified vomiting type 1 Occurrences starting 05/21/2022 until 06/20/2023 [facility] Work Phone: Comment on above: 1 Occurrences starti ng 05/21/2022 until 06/20/2023 End: 01-29-2023 Ct lower extremity w/o contrast material CT FOOT WO IVCON LT Radiology STAT Ingrown left greater toenail Localized swelling of left foot Pain of left heel Injury of left heel, subsequent encounter Left foot pain 1 Occurrences starting 12/30/2021 until 01/29/2023 [facility] Work Phone: Comment on above: 1 Occurrences starti ng 12/30/2021 until 01/29/2023 End: 03-20-2024 Ct thorax w/o contrast material CT CHEST WO IVCON Radiology Routine SOB (shortness of breath) Wheezing Pulmonary nodule 1 Occurrences starting 02/19/2023 until 03/20/2024 [facility] Work Phone: Comment on above: 1 Occurrences starti ng 02/19/2023 until 03/20/2024 End: 11-07-2024 DBT Breast - bilateral screening CHANTELL SCREENING W CAROLYN Radiology Routine Encounter for screening mammogram for breast cancer 1 Occurrences starting 10/09/2023 until 11/07/2024 [facility] Work Phone: Comment on above: 1 Occurrences starti ng 10/09/2023 until 11/07/2024 ECG COMPLETE ECG COMPLETE ECG Routine Chest pain on breathing 02/22/2025 3:46 PM EDT [facility] Work Phone: End: 05-29-2023 EGD DIAGNOSTIC EGD DIAGNOSTIC Endoscopy Routine Abdominal pain, unspecified abdominal location Change in bowel habits 1 Occurrences starting 05/29/2022 until 05/29/2023 [facility] Work Phone: Comment on above: 1 Occurrences starti ng 05/29/2022 until 05/29/2023 End: 12-08-2023 Hepatobil syst imag inc gb w/pharma intervenj NM HEPATOBILIARY W EF AND/OR RX Radiology Routine Nausea Pain of upper abdomen Type 2 diabetes mellitus with peripheral neuropathy (HCC) RUQ pain Gastroesophageal reflux disease, unspecified whether esophagitis present Abdominal bloating 1 Occurrences starting 11/08/2022 until 12/08/2023 [facility] Work Phone: Comment on above: 1 Occurrences starti ng 11/08/2022 until 12/08/2023 End: 08-23-2023 CHANTELL SCREENING CHANTELL SCREENING Radiology Routine Encounter for screening mammogram for malignant neoplasm of breast 1 Occurrences starting 07/24/2022 until 08/23/2023 [facility] Work Phone: Comment on above: 1 Occurrences starti ng 07/24/2022 until 08/23/2023 End: 08-23-2023 CHANTELL SCREENING W CAROLYN CHANTELL SCREENING W CAROLYN Radiology Routine Encounter for screening mammogram for malignant neoplasm of breast 1 Occurrences starting 07/24/2022 until 08/23/2023 [facility] Work Phone: Comment on above: 1 Occurrences starti ng 07/24/2022 until 08/23/2023 Patient Education Coping with He art Failure Heart Attack Dc [facility] Work Phone: SARS-CoV-2 (COVID-19 ) RNA [Presence] in Respiratory specimen by JHONY with probe detection COVID NAAT, UPPER RESPIRATORY, ROUTINE Microbiology Routine Acute non-recurrent sinusitis, unspecified location Ordered: 04/05/2023 [facility] Work Phone: Comment on above: Ordered: 04/05/2023 Troponin T.cardiac [Mass/volume] in Serum or Plasma by High sensitivity method [facility] End: 11-26-2024 US Carotid arteries - bilateral US CAROTID ARTERIES [facility] Vascular Lab Routine Carotid atherosclerosis, bilateral 1 Occurrences starting 11/27/2023 until 11/26/2024 [facility] Comment on above: 1 Occurrences starti ng 11/27/2023 until 11/26/2024 End: 10-23-2025 XR Chest PA and Lateral XR CHEST 2V FRONTAL/LAT Radiology Routine Acute cough Rhonchi at both lung bases 1 Occurrences starting 09/23/2024 until 10/23/2025 [facility] Work Phone: Comment on above: 1 Occurrences starti ng 09/23/2024 until 10/23/2025 XR FOOT GENERAL 3V AP/LAT/OBL LEFT XR FOOT GENERAL 3V AP/LAT/OBL LEFT Radiology Routine Ingrown left greater toenail Localized swelling of left foot Pain of left heel Injury of left heel, subsequent encounter Left foot pain 12/30/2021 10:31 AM EDT [facility] Work Phone: XR Hand - right PA a nd Lateral and Oblique XR HAND GENERAL 3V PA/LAT/OBL RIGHT Radiology Routine Right hand pain Localized swelling of finger of right hand 06/23/2024 4:01 PM EST [facility] Work Phone: [facility] Immunizations Immunization Date Immunization Notes Care Provider [facility] 12-30-2024 tetanus toxoid, redu ritu diphtheria toxoid, and acellular pertussis vaccine, adsorbed Jese Zheng DO Work Phone: [facility] 06-23-2024 COVID-19 vaccine, ag e 12+ yr (PFIZER-BIONTECH COMIRNAT) [facility] [place] Work Phone: [facility] 06-23-2024 influenza, seasonal, injectable [facility] [place] Work Phone: [facility] 06-23-2024 influenza virus vaccine, unspecified formulation Susana Garcia [facility] Work Phone: [facility] 05-27-2023 COVID-19 vaccine, ag e 12+ yr, season (PFIZER-BIONTECH) Jese Zheng DO Work Phone: [facility] Work Phone: 05-27-2023 influenza, injectabl e, quadrivalent, contains preservative Jese Zheng DO Work Phone: [facility] Work Phone: 05-27-2023 influenza virus vaccine, unspecified formulation Corrine Louise APRN.PROFESSOR OF PHYSICS Work Phone: [facility] 07-24-2022 pneumococcal (PCV20) vaccine, 20 valent (PREVNAR 20) Jese Zheng DO Work Phone: [facility] Work Phone: 07-24-2022 zoster vaccine recombinant Jese Zheng DO Work Phone: [facility] Work Phone: 07-24-2022 pneumococcal Conjuga te, unspecified formulation Jese Zheng DO Work Phone: [facility] Work Phone: 04-27-2022 influenza, injectabl e, quadrivalent, contains preservative Jese Zheng DO Work Phone: [facility] 04-27-2022 zoster vaccine recombinant Jese Zheng DO Work Phone: [facility] 04-27-2022 influenza virus vaccine, unspecified formulation Corrine Dani SONINJordanaPROFESSOR OF PHYSICS Work Phone: [facility] 05-08-2021 influenza, injectabl e, quadrivalent, contains preservative Jese Zheng DO Work Phone: [facility] 08-05-2020 influenza, injectabl e, quadrivalent, contains preservative Jese Zheng DO Work Phone: [facility] Work Phone: 04-10-2019 influenza, injectabl e, quadrivalent, contains preservative Jese Zheng DO Work Phone: [facility] Work Phone: 05-13-2018 influenza, injectabl e, quadrivalent, contains preservative Jese Zheng DO Work Phone: [facility] 05-01-2017 influenza, injectabl e, quadrivalent, contains preservative Jese Hzeng DO Work Phone: [facility] 04-23-[address] [facility] 04-23-2016 influenza, seasonal, injectable, preservative free Jese Zheng DO Work Phone: [facility] 04-16-2016 influenza, injectabl e, quadrivalent, contains preservative Jese Zheng DO Work Phone: [facility] Work Phone: 06-29-2015 influenza, injectabl e, quadrivalent, contains preservative Jese Zheng DO Work Phone: [facility] Work Phone: 06-29-2015 influenza, seasonal, injectable Jese Zhegn DO Work Phone: [facility] 05-12-2014 influenza, seasonal, injectable Jese Zheng DO Work Phone: [facility] Work Phone: 04-21-[address] [facility] 04-21-2014 influenza, seasonal, injectable, preservative free Jese Zheng DO Work Phone: [facility] 01-28-2014 tetanus toxoid, redu ritu diphtheria toxoid, and acellular pertussis vaccine, adsorbed Jese Zheng DO Work Phone: [facility] 05-08-2013 influenza virus vaccine, unspecified formulation Jese Zheng DO Work Phone: [facility] Work Phone: 01-26-2013 pneumococcal polysaccharide vaccine, 23 valent Jese Zheng DO Work Phone: [facility] 09-19-[address] [facility] 09-19-2012 influenza, seasonal, injectable, preservative free Jese Zheng DO Work Phone: [facility] 08-22-2012 tetanus toxoid, redu ritu diphtheria toxoid, and acellular pertussis vaccine, adsorbed Jese Zheng DO Work Phone: [facility] Work Phone: 07-07-2012 influenza virus vaccine, unspecified formulation Jese Zheng DO Work Phone: [facility] Work Phone: 06-02-2009 novel [id number], all formulations Jese Zheng DO Work Phone: [facility] 11-20-1999 tetanus and diphther ia toxoids, not adsorbed, for adult use Jese Zheng DO Work Phone: [facility] Payers Date Payer Category Payer Self-pay [id number] 2024 Private Health Insurance [id number] 2024 Unknown [id number] 2023 Unknown [id number] 2023 Unknown [id number] 2023 Unknown [id number] 2022 Medicaid [id number] 2017 Medicaid [id number] 2015 Unknown [id number] 2014 Medicaid [employer] [facility] MEDICAID [id number] 2014-Present [phone] [address] [place] [address] Medicaid [id number] Unknown [id number] Unknown [id number] Unknown [id number] Unknown [id number] Unknown [id number] Unknown [id number] Unknown [id number] Social History Date Type Detail Facility Start: 05-29-2013 End: 12-30-2024 Tobacco smoking status NHIS Ex-smoker [facility] Work Phone: Start: 05-13-1989 End: 05-13-2013 History of tobacco use Current smoker [facility] Work Phone: Start: 05-13-1989 End: 05-13-2013 History of tobacco use Cigarette Smoker [facility] Work Phone: Start: 05-29-2013 End: 11-22-2022 Cigarettes smoked current (pack per day) - Reported 0.5 [facility] Start: 05-29-2013 End: 12-30-2024 Tobacco use and exposure Smokeless tobacco non-user [facility] Work Phone: Start: 10-13-2021 End: 12-30-2024 Alcohol intake Current non-drinker of alcohol (finding) [facility] Start: 05-04-2021 End: 04-27-2022 History SDOH Alcohol Frequency 1 [facility] Start: 05-04-2021 History SDOH Alcohol Std Drinks 98 [facility] Start: 05-04-2021 End: 06-25-2022 History SDOH Social Connections Phone 5 [facility] Start: 05-04-2021 End: 06-25-2022 History SDOH Social Connections Get Together 2 [facility] Start: 05-04-2021 End: 06-25-2022 History SDOH Social Connections Living 7 [facility] Start: 10-02-2019 Education 12 [facility] Start: 1965 Sex Assigned At Female [facility] Start: 11-01-2020 End: 06-24-2022 Exposure to SARS-CoV-2 (event) Not sure [facility] Work Phone: Start: 04-06-2022 End: 04-16-2022 Exposure to SARS-CoV-2 (event) Unable to assess [facility] Start: 06-25-2022 History SDOH Alcohol Std Drinks 0 [facility] Start: 04-06-2021 Tobacco smoking status IDIS Unknown if ever smoked [facility] Start: 04-07-2017 None [facility] Start: 01-22-2019 With Family [facility] Start: 04-10-2017 Non-smoker [facility] Start: 06-25-2022 End: 11-22-2022 Social connection and isolation panel [facility] Do you belong to any clubs or organizations such as congregational groups, unions, fraternal or athletic groups, or school groups? No [facility] Are you now , , , , never or living with a partner? Never [facility] How often to you hav e a drink containing alcohol? Never [facility] How many standard dr inks containing alcohol do you have on a typical day? Patient does not drink [facility] (I/We) worried wheth er (my/our) food would run out before (I/we) got money to buy more. Never true [facility] Start: 04-18-2021 Gender identity Identifies as female gender (finding) [facility] Start: 04-18-2021 Sexual orientation Heterosexual (finding) [facility] Do you feel stress - tense, restless, nervous, or anxious, or unable to sleep at night because your mind is troubled all the time - these days [OSQ] Only a little [facility] Do you feel stress - tense, restless, nervous, or anxious, or unable to sleep at night because your mind is troubled all the time - these days [OSQ] Not at all [facility] Start: 02-22-2025 Tobacco smoking status [facility] Never smoked tobacco (finding) [facility] Start: 02-22-2025 Tobacco smoking status IDIS Current some day smoker [facility] Medical Equipment Procedure Code Equipment Code Equipment Origin al Text Equipment Identifier Dates [employer]esh [place] [employer] [id number] Surgical Soft Lightweight Low - [id number] Start: 05-27-2017 [id number], [id number], [id number], [id number], [id number], [id number] Start: 09-06-2016 End: 05-09-2023 Comment on above: Test blood glucose t hree times daily as instructed. E11.9, E66.9 Use to test blood andrea gar up to twice daily as instructed. Dx: insulin-dependent DM use once daily to in ject insulin Use as directed 4 ti mes daily with insulin Test blood sugar onc e daily. Blood Sugar Diagnostic (Freestyle Lite Strips) strip Start: 05-11-2019 Lancets (Unilet Super Thin Lancets) 30 gauge misc Start: 05-11-2019 Pen Needle, Diab etic (1st Tier Unifine Pentips) 31 gauge x 3/16 needle Start: 05-11-2019 Pen Needle, Diab etic (Easy Touch) 31 gauge x 3/16 needle Start: 05-11-2019 End: 02-26-2020 Blood Sugar Diagnostic (Freestyle Lite Strips) strip Start: 05-11-2019 Lancets (Unilet Super Thin Lancets) 30 gauge misc Start: 05-11-2019 Pen Needle, Diab etic (1st Tier Unifine Pentips) 31 gauge x 3/16 needle Start: 05-11-2019 Pen Needle, Diab etic (Easy Touch) 31 gauge x 3/16 needle Start: 05-11-2019 End: 02-26-2020 Blood Sugar Diagnostic (Freestyle Lite Strips) strip Start: 05-11-2019 Lancets (Unilet Super Thin Lancets) 30 gauge misc Start: 05-11-2019 Pen Needle, Diab etic (1st Tier Unifine Pentips) 31 gauge x 3/16 needle Start: 05-11-2019 Pen Needle, Diab etic (Easy Touch) 31 gauge x 3/16 needle Start: 05-11-2019 End: 02-26-2020 Goals Date Patient Goal Desired Activity /State Functional Status Date Assessment Result Facility 02-25-2025 Functional status Ambulates [facility] Work Phone: 02-24-2025 Functional status Assistive Devices None [facility] Work Phone: 05-31-2017 Are you deaf, or do you have serious difficulty hearing No 05/31/2017 10:00 AM Jaycee Rascon RN No [facility] 05-31-2017 Are you blind, or do you have serious difficulty seeing, even when wearing glasses No 05/31/2017 10:00 AM Jaycee Rascon, ABRAHAM No [facility] 05-31-2017 Do you have serious difficulty walking or climbing stairs No 05/31/2017 10:00 AM Jaycee Rascon RN No [facility] 05-31-2017 Do you have difficul ty dressing or bathing No 05/31/2017 10:00 AM Jaycee Rascon RN No [facility] 05-31-2017 Because of a physica l, mental, or emotional condition, do you have difficulty doing errands alone such as visiting a physician's office or shopping No 05/31/2017 10:00 AM Jaycee Rascon RN No [facility] Mental Status Date Assessment Result Facility 02-25-2025 Cognitive function Voice/Name [facility] Work Phone: 02-22-2025 Cognitive function Voice/Name [facility] Work Phone: 05-31-2017 Because of a physica l, mental, or emotional condition, do you have serious difficulty concentrating, remembering, or making decisions Yes 05/31/2017 10:00 AM Jaycee Rascon RN Yes [facility] Clinical Notes 10-12-2014 to 02-25-2025 Note Date & Type Note Facility 02-25-2025 Discharge summary [facility] 02-25-2025 Note [facility] Medical Records Department [address] [place] [address] Discharge Summary 02/25/25 1434 MR#: [id number] Acct: [id number] Name: LINA ISAAC Rep #: [id number] : 1965 59 From: Clarissa Herrera MD PCP: Dr. Jese Zheng DO Status:DIS IN Location: [place] [address] Providers Date of Admission: 02/22/25 Date of Discharge: 02/25/25 Primary Care Physician: Dr. Jese Zheng DO Consultations 02/22/25 21:12 Consult: Cardiology Routine Consulting Provider: Elver [place] Reason for Consult: NSTEMI, congestive heart failure EMERGENT Consult: Yes MD Notified: Yes Date Notified: 02/22/25 Time Notified: 20:25 Method of Notification: Text Reason For Visit: PNEUMONIA, NSTEMI, CONGESTIVE HEART FAILURE Diagnosis Discharge Diagnosis (1) Hypoxia: Status: Acute Code(s): R09.02 - Hypoxemia Plan #Nonstemi * Patient admitted with a complaint of shortness of breath and chest pain. She was initially on antibiotics but these were discontinued due to low blood risk for pneumonia in the absence of elevated white cell count and no focal infiltrate, no fever or productive cough. * 2D echo showed EF of 35% with stage II diastolic dysfunction and moderate global hypokinesis. * She could not tolerate cardiac cath as she could not lay flat due to back pain. * Per cardiology to have medical management for now. On aspirin and statin. Currently on Lasix also. His shortness of breath is improving. He is on 2 L of oxygen today. * #Hypoxia: * Was on IV Lasix 40 mg daily but this was discontinued. * Currently on 2 L of oxygen. * Breathing treatments with bronchodilators. * Titrate oxygen to maintain saturation above 90%. * on jardiance #Intractable back pain * Lumbar spine CT showed lumbar spine scoliosis and degeneration mainly of L5-S1 * PT.OT on board. Fall precautions #Type 2 diabetes mellitus: * On Lantus. It appears her home dose is 1 112 units of Lantus daily. * Dose decreased to 40 units daily due to her nausea on admission. * Oral meds on hold. Insulin sliding scale. Accu-Cheks ACHS. A1c is pending #Benign essential hypertension: On carvedilol and lisinopril #Hyperlipidemia: On statin #DVT prophylaxis: Lovenox CODE STATUS: Full code Disposition: Transfer to PCU Medications at Discharge Home Medications albuterol sulfate 90 mcg/actuation aerosol inhaler 2 puff inhalation Q4H PRN PRN Wheezing 04/08/14 calcium 315 mg (as citrate)-vitamin D3 6.25 mcg (250 unit) tablet 1 tab PO DAILY 04/08/14 lisinopril 10 mg tablet 1 tab PO DAILY 04/07/17 magnesium citrate 150 ml PO Q6H PRN PRN Constipation #300 mL 01/22/19 albuterol sulfate 2.5 mg/3 mL (0.083 %) solution for nebulization 2.5 mg inhalation Q4H PRN shortness of breath or wheezing 05/11/19 alcohol swabs (BD Alcohol Swabs) See Rx Instructions topical .COMPLEX 05/11/19 aspirin 81 mg tablet,delayed release (Adult Low Dose Aspirin) 81 mg PO DAILY 05/11/19 atorvastatin 40 mg tablet 40 mg PO DAILY 05/11/19 blood sugar diagnostic (FreeStyle Lite Strips) #10 ea 05/11/19 blood-glucose meter (FreeStyle Lite Meter kit) #1 ea 05/11/19 famotidine 20 mg tablet 20 mg PO BID 05/11/19 insulin degludec 100 unit/mL (3 mL) subcutaneous pen (Tresiba FlexTouch U-100 insulin) 112 unit subcut QHS 05/11/19 lancets 30 gauge (Unilet Super Thin Lancets) #25 ea 05/11/19 mupirocin 2 % topical ointment 1 applic topical BID 05/11/19 pen needle, diabetic 31 gauge x 3/16 (1st Tier Unifine Pentips) #30 ea 05/11/19 polyethylene glycol 3350 17 gram/dose oral powder (Miralax) 17 g PO BID 05/11/19 flash glucose sensor (FreeStyle Michi 14 Day Sensor kit) #2 ea 02/26/20 insulin aspart U-100 100 unit/mL (3 mL) subcutaneous pen (Novolog FlexPen U-100 Insulin aspart) 20 unit (0.2 mL) subcut TID #24 mL 04/05/20 metformin 1,000 mg tablet 1,000 mg PO BID diabetes 02/06/21 cyanocobalamin (vitamin B-12) 1,000 mcg tablet,extended release 2,000 mcg PO DAILY 02/22/25 dulaglutide 4.5 mg/0.5 mL subcutaneous pen injector (Trulicity) 4.5 mg subcut QWEEK 02/22/25 empagliflozin 10 mg tablet (Jardiance) 25 mg PO BREAKFAST 02/22/25 fluoxetine 20 mg capsule 20 mg PO DAILY 02/22/25 gabapentin 100 mg capsule 100 mg PO QHS 02/22/25 carvedilol 3.125 mg tablet 3.125 mg PO BIDCM #60 tabs 02/25/25 Hospital Course Operations None Procedures 2-D Echocardiogram Summary of Care Provided Minutes Spent on Discharge: 45 Hospital Course: Patient is a 59-year-old female was admitted to the ED on 02/22/2025 with complaint of chest pain which started about a week ago and gradually progressed and worsened. It worsened after laying down and after eating. She had a past medical history of diabetes but denied any history of coronary artery disease. Chest x-ray. Troponin was elevated at 181 and BNP was also elevated at 3685. She was therefore admitted to be managed for n (more content not included)... [facility] 02-24-2025 Progress note Note Date/Time February 24, 2025 5:06pm [facility] Medical Records Department [address] [place] [address] Progress Note 02/24/25 1155 MR#: [id number] Acct: [id number] Name: LINA ISAAC Rep #:[id number] : 1965 59 From: Clarissa Herrera MD PCP: Dr. Jese Zheng, DO Status:AD M IN Location: [place] [address] Subjective Subjective Patient seen and examined. She still complains of the lower back pain. She however had no other active complaints. Review of systems is otherwise negative.She was unable to tolerate the cardiac cath as she could not lay flat. Review ofsystems is otherwise negative. She is on 2L of oxygen by nasal canula. Objective Data Objective Data Vital Signs: Vital Signs Temp Pulse Resp BP Pulse Ox O2 Del Method O2 Flow Rate 97.5 F L 95 19 H 120/94 H 90 Nasal Cannula 2 02/24/25 08:00 02/24/25 09:00 02/24/25 09:00 02/24/25 09:00 02/24/25 09:00 02/24/25 09:00 02/24/25 09:00 Oxygen Flow Rate (L/min) 2 Oxygen Delivery Method Nasal Cannula Weight: 205 lb 4.006 oz Body Mass Index (BMI) 31.1 Intake & Output: Intake and Output for Last 24 Hours 02/22/25 02/23/25 02/24/25 23:59 23:59 23:59 Intake Total 525 / 525 Output Total 650 / 650 Balance 525 / 525 -650 / -650 Lab / Micro Data 02/24/25 04:20 02/24/25 04:20 Labs: Laboratory Results - last 24 hr 02/23/25 12:10: POC Glucose 263 H 02/23/25 16:11: POC Glucose 140 H 02/23/25 16:59: POC Glucose 144 H 02/23/25 21:33: POC Glucose 186 H 02/24/25 04:20: WBC 6.9, RBC 4.18 L, Hgb 12.7, Hct 37.4, MCV 89.5, MCH 30.4, MCHC 34.0, RDW Std Deviation 39.8, RDW Coeff of Brett 12.3, Plt Count 267, MPV 10.1, Immature Gran % (Auto) 0.300, Neut % (Auto) 39.4 L, Lymph % (Auto) 45.8 H,Lander % (Auto) 12.0 H, Eos % (Auto) 1.9, Baso % (Auto) 0.6, Absolute Neuts (auto)2.7, Absolute Lymphs (auto) 3.17, Nucleated RBC % 0, ESR 23, Sodium 142, Potassium 3.6, Chloride 106, Carbon Dioxide 24.9, Anion Gap 11, BUN 11, Creatinine 0.54 L, Estim Creat Clear Calc 133.31, Est GFR (MDRD) Non-Af 106, BUN/Creatinine Ratio 19.8, Glucose 103 H, Calcium 9.3, Phosphorus 4.3, Magnesium2.2, Total Bilirubin 0.85, AST 82 H, ALT 31, Alkaline Phosphatase 92, C-React Prot Ext Range 43.20 H, Total Protein 7.0, Albumin 3.8, Globulin 3.2, Albumin/Globulin Ratio 1.2, TSH 2.330 02/24/25 08:11: POC Glucose 114 H 02/24/25 10:42: POC Glucose 250 H Radiography Diagnostic Testing: Radiology Impression Echocardiogram 02/23/25 05:55 Interpretation Summary Normal LV size. The left ventricular ejection fraction is 35 %. Stage 2 diastolic dysfunction. There is moderate global hypokinesis of the left ventricle. Mild concentric left ventricular hypertrophy. Contrast injection was performed. Ordering Physician: Denton Cook Referring Physician: Jese Zheng Performed By: Shanelle Roger, DOMINIC, RVT Lumbar Spine CT 02/23/25 18:36 IMPRESSION: Lumbar spine scoliosis and degeneration. Lumbar spine degeneration mainly L5-S1. No acute findings. Reading Location: [place] [address] Rhythm Strip Rhythm Strip: Sinus Tach Rate: 110 Ectopy: None Physical Exam Const alert, oriented x3 and no apparent distress General Appearance: cooperative and well developed HEENT normocephalic, head/scalp atraumatic, moist oral mucous membranes and oropharynxnormal Eyes PERRL and EOMs intact bilaterally Neck no lymphadenopathy and supple Lymph Lymphatic: no lymphadenopathy noted and no lymphedema noted Resp Resp Narrative: mildly diminished breath sounds bibasally, no wheezes or crackles. On 2L of oxygen by nasal canula Cardio regular rate, regular rhythm, S1 normal heart sound, S2 normal heart sound and no murmurs GI normal to inspection, nondistended, normoactive bowel sounds, soft to palpation,non-tender and non-distended Extremity normal capillary refill, no clubbing, cyanosis or edema and no calf tenderness General Extremity: no tenderness to palpation of joints or extremities Skin General Skin Exam: no breakdown Neuro CN's II-XII intact bilaterally, no focal motor deficits, no sensory deficits noted and deep tendon reflexes 2+ bilaterally Motor Exam: general weakness Psych thought process normal and cooperative Appearance: appropriate Assessment & Plan Assessment/Plan (1) Hypoxia: PLAN: Plan #Nonstemi * Patient admitted with a complaint of shortness of breath and chest pain. She was initially on antibiotics but these were discontinued due to low blood risk for pneumonia in the absence of elevated white cell count and no focal infiltrate, no fever or productive cough. * 2D echo showed EF of 35% with stage II diastolic dysfunction and moderate global hypokinesis. * She could not tolerate cardiac cath as she could not lay flat due to back pain. * Per cardiology to have medical management for now. On aspirin and statin. Currently on Lasix also. His shortness of breath is improving. He is on 2 L of oxygen today. * #Hypoxia: * Was on IV Lasix 40 mg daily but this was discontinued. * Currently on 2 L of oxygen. * Breathing treatments with bronchodilators. * Titrate oxygen to maintain saturation above 90%. * on jardiance #Intractable back pain * Lumbar spine CT showed lumbar spine scoliosis and degeneration mainly of L5-S1 * PT.OT on board. Fall precautions #Type 2 diabetes mellitus: * On Lantus. It appears her home dose is 1 112 units of Lantus daily. * Dose decreased to 40 units daily due to her nausea on admission. * Oral meds on hold. Insulin sliding scale. Accu-Cheks ACHS. A1c is pending #Benign essential hypertension: On carvedilol and lisinopril #Hyperlipidemia: On statin #DVT prophylaxis: Lovenox CODE STATUS: Full code Disposition: Transfer to U Charges/Coding Visit Charges Inpatient E&M: 22931 Subs Hosp L2 02/24/25 1706 <Electronically signed by Clarissa Herrera MD> Clarissa Herrera MD Cosigner Signature (if applicable): CC: ~ Signed [facility] Work Phone: 1(726) 566-398008-06-2025 Progress note [facility] Medical Records Department [address] [place] [address] Progress Note 02/24/25 1155 MR#: [id number] Acct: [id number] Name: LINA ISAAC Rep #:[id number] : 1965 59 From: Clarissa Herrera MD PCP: Dr. Jese Zheng, DO Status:AD M IN Location: [place] [address] Subjective Subjective Patient seen and examined. She still complains of the lower back pain. She however had no other active complaints. Review of systems is otherwise negative.She was unable to tolerate the cardiac cath as she could not lay flat. Review ofsystems is otherwise negative. She is on 2L of oxygen by nasal canula. Objective Data Objective Data Vital Signs: Vital Signs Temp Pulse Resp BP Pulse Ox O2 Del Method O2 Flow Rate 97.5 F L 95 19 H 120/94 H 90 Nasal Cannula 2 02/24/25 08:00 02/24/25 09:00 02/24/25 09:00 02/24/25 09:00 02/24/25 09:00 02/24/25 09:00 02/24/25 09:00 Oxygen Flow Rate (L/min) 2 Oxygen Delivery Method Nasal Cannula Weight: 205 lb 4.006 oz Body Mass Index (BMI) 31.1 Intake & Output: Intake and Output for Last 24 Hours 02/22/25 02/23/25 02/24/25 23:59 23:59 23:59 Intake Total 525 / 525 Output Total 650 / 650 Balance 525 / 525 -650 / -650 Lab / Micro Data 02/24/25 04:20 02/24/25 04:20 Labs: Laboratory Results - last 24 hr 02/23/25 12:10: POC Glucose 263 H 02/23/25 16:11: POC Glucose 140 H 02/23/25 16:59: POC Glucose 144 H 02/23/25 21:33: POC Glucose 186 H 02/24/25 04:20: WBC 6.9, RBC 4.18 L, Hgb 12.7, Hct 37.4, MCV 89.5, MCH 30.4, MCHC 34.0, RDW Std Deviation 39.8, RDW Coeff of Brett 12.3, Plt Count 267, MPV 10.1, Immature Gran % (Auto) 0.300, Neut % (Auto) 39.4 L, Lymph % (Auto) 45.8 H,Lander % (Auto) 12.0 H, Eos % (Auto) 1.9, Baso % (Auto) 0.6, Absolute Neuts (auto)2.7, Absolute Lymphs (auto) 3.17, Nucleated RBC % 0, ESR 23, Sodium 142, Potassium 3.6, Chloride 106, Carbon Dioxide 24.9, Anion Gap 11, BUN 11, Creatinine 0.54 L, Estim Creat Clear Calc 133.31, Est GFR (MDRD) Non-Af 106, BUN/Creatinine Ratio 19.8, Glucose 103 H, Calcium 9.3, Phosphorus 4.3, Magnesium2.2, Total Bilirubin 0.85, AST 82 H, ALT 31, Alkaline Phosphatase 92, C-React Prot Ext Range 43.20 H, Total Protein 7.0, Albumin 3.8, Globulin 3.2, Albumin/Globulin Ratio 1.2, TSH 2.330 02/24/25 08:11: POC Glucose 114 H 02/24/25 10:42: POC Glucose 250 H Radiography Diagnostic Testing: Radiology Impression Echocardiogram 02/23/25 05:55 Interpretation Summary Normal LV size. The left ventricular ejection fraction is 35 %. Stage 2 diastolic dysfunction. There is moderate global hypokinesis of the left ventricle. Mild concentric left ventricular hypertrophy. Contrast injection was performed. Ordering Physician: Denton Cook Referring Physician: Jese Zheng Performed By: Shanelle Roger, RDCS, RVT Lumbar Spine CT 02/23/25 18:36 IMPRESSION: Lumbar spine scoliosis and degeneration. Lumbar spine degeneration mainly L5-S1. No acute findings. Reading Location: [place] [address] Rhythm Strip Rhythm Strip: Sinus Tach Rate: 110 Ectopy: None Physical Exam Const alert, oriented x3 and no apparent distress General Appearance: cooperative and well developed HEENT normocephalic, head/scalp atraumatic, moist oral mucous membranes and oropharynxnormal Eyes PERRL and EOMs intact bilaterally Neck no lymphadenopathy and supple Lymph Lymphatic: no lymphadenopathy noted and no lymphedema noted Resp Resp Narrative: mildly diminished breath sounds bibasally, no wheezes or crackles. On 2L of oxygen by nasal canula Cardio regular rate, regular rhythm, S1 normal heart sound, S2 normal heart sound and no murmurs GI normal to inspection, nondistended, normoactive bowel sounds, soft to palpation,non-tender and non-distended Extremity normal capillary refill, no clubbing, cyanosis or edema and no calf tenderness General Extremity: no tenderness to palpation of joints or extremities Skin General Skin Exam: no breakdown Neuro CN's II-XII intact bilaterally, no focal motor deficits, no sensory deficits noted and deep tendon reflexes 2+ bilaterally Motor Exam: general weakness Psych thought process normal and cooperative Appearance: appropriate Assessment & Plan Assessment/Plan (1) Hypoxia: PLAN: Plan #Nonstemi * Patient admitted with a complaint of shortness of breath and chest pain. She was initially on antibiotics but these were discontinued due to low blood risk for pneumonia in the absence of elevated white cell count and no focal infiltrate, no fever or productive cough. * 2D echo showed EF of 35% with stage II diastolic dysfunction and moderate global hypokinesis. * She could not tolerate cardiac cath as she could not lay flat due to back pain. * Per cardiology to have medical management for now. On aspirin and statin. Currently on Lasix also. His shortness of breath is improving. He is on 2 L of oxygen today. * #Hypoxia: * Was on IV Lasix 40 mg daily but this was discontinued. * Currently on 2 L of oxygen. * Breathing treatments with bronchodilators. * Titrate oxygen to maintain saturation above 90%. * on jardiance #Intractable back pain * Lumbar spine CT showed lumbar spine scoliosis and degeneration mainly of L5-S1 * PT.OT on board. Fall precautions #Type 2 diabetes mellitus: * On Lantus. It appears her home dose is 1 112 units of Lantus daily. * Dose decreased to 40 units daily due to her nausea on admission. * Oral meds on hold. Insulin sliding scale. Accu-Cheks ACHS. A1c is pending #Benign essential hypertension: On carvedilol and lisinopril #Hyperlipidemia: On statin #DVT prophylaxis: Lovenox CODE STATUS: Full code Disposition: Transfer to PCU Charges/Coding Visit Charges Inpatient E&M: 87533 Subs Hosp L2 02/24/25 1706 Clarissa Herrera MD Cosigner Signature (if applicable): CC: ~ Signed [facility]08-06-2025 Progress note Author Elver Montero [facility] Note Date/Time February 24, 2025 7:4 5am [facility] Medical Records Department [address] [place] [address] Progress Note - Cardiology 02/24/25 0741 MR#: [id number] Acct: [id number] Name: LINA ISAAC Rep #:[id number] : 1965 59 From: Elver Montero MD PCP: Dr. Jese Zheng, DO Status:AD M IN Location: ICU ICU05-1 Subjective Subjective Patient seen and evaluated. Doing better this morning. Sitting in chair. No further chest pain. Only back pain noted. Objective Data Vital Signs: Vital Signs Temp Pulse Resp BP Pulse Ox O2 Del Method O2 Flow Rate 97.8 F 79 17 109/81 H 100 Nasal Cannula 4 02/24/25 04:00 02/24/25 07:00 02/24/25 07:00 02/24/25 07:00 02/24/25 07:00 02/24/25 07:00 02/24/25 07:00 Oxygen Flow Rate (L/min) 4 Oxygen Delivery Method Nasal Cannula Weight: 208 lb 12.444 oz Body Mass Index (BMI) 31.7 Intake & Output: Intake and Output for Last 24 Hours 02/22/25 02/23/25 02/24/25 23:59 23:59 23:59 Intake Total 525 / 525 Output Total 650 / 650 Balance 525 / 525 -650 / -650 Lab / Micro Data 02/24/25 04:20 02/24/25 04:20 Labs: Laboratory Results - last 24 hr 02/23/25 09:53: Lactic Acid 1.5 02/23/25 12:10: POC Glucose 263 H 02/23/25 16:11: POC Glucose 140 H 02/23/25 16:59: POC Glucose 144 H 02/23/25 21:33: POC Glucose 186 H 02/24/25 04:20: WBC 6.9, RBC 4.18 L, Hgb 12.7, Hct 37.4, MCV 89.5, MCH 30.4, MCHC 34.0, RDW Std Deviation 39.8, RDW Coeff of Brett 12.3, Plt Count 267, MPV 10.1, Immature Gran % (Auto) 0.300, Neut % (Auto) 39.4 L, Lymph % (Auto) 45.8 H,Lander % (Auto) 12.0 H, Eos % (Auto) 1.9, Baso % (Auto) 0.6, Absolute Neuts (auto)2.7, Absolute Lymphs (auto) 3.17, Nucleated RBC % 0, ESR 23, Sodium 142, Potassium 3.6, Chloride 106, Carbon Dioxide 24.9, Anion Gap 11, BUN 11, Creatinine 0.54 L, Estim Creat Clear Calc 133.31, Est GFR (MDRD) Non-Af 106, BUN/Creatinine Ratio 19.8, Glucose 103 H, Calcium 9.3, Phosphorus 4.3, Magnesium2.2, Total Bilirubin 0.85, AST 82 H, ALT 31, Alkaline Phosphatase 92, C-React Prot Ext Range 43.20 H, Total Protein 7.0, Albumin 3.8, Globulin 3.2, Albumin/Globulin Ratio 1.2, TSH 2.330 Rhythm Strip Rhythm Strip: Sinus Tach Rate: 110 Ectopy: None Cardiology Labs/Tests 02/23/25 09:53: Lactic Acid 1.5 02/24/25 04:20: WBC 6.9, RBC 4.18 L, Hgb 12.7, Hct 37.4, MCV 89.5, MCH 30.4, MCHC 34.0, Plt Count 267, MPV 10.1, Immature Gran % (Auto) 0.300, Neut % (Auto) 39.4 L, Lymph % (Auto) 45.8 H, Lander % (Auto) 12.0 H, Eos % (Auto) 1.9, Baso % (Auto) 0.6, Absolute Neuts (auto) 2.7, Nucleated RBC % 0, Sodium 142, Potassium 3.6, Chloride 106, Carbon Dioxide 24.9, Anion Gap 11, BUN 11, Creatinine 0.54 L,Est GFR (MDRD) Non-Af 106, BUN/Creatinine Ratio 19.8, Glucose 103 H, Calcium 9.3, Phosphorus 4.3, Magnesium 2.2, Total Bilirubin 0.85 Rhythm: EKG: ECHO: Stress Test: Cardiac Cath: PCI: CT Surgery: Holter monitor: EPS: PPM: CXR: Chest CT Scan: Radiography Diagnostic Testing: Radiology Impression Echocardiogram 02/23/25 05:55 Interpretation Summary Normal LV size. The left ventricular ejection fraction is 35 %. Stage 2 diastolic dysfunction. There is moderate global hypokinesis of the left ventricle. Mild concentric left ventricular hypertrophy. Contrast injection was performed. Ordering Physician: Denton Cook Referring Physician: Jese Zheng Performed By: Shanelle Roger, DOMINIC, RVT Brain CT 02/23/25 09:25 IMPRESSION: CHRONIC CHANGES. NO ACUTE FINDINGS. Reading Location: [id number] Abdomen/Pelvis CT 02/23/25 10:10 IMPRESSION: No evidence of the ureteral obstruction. Reading Location: [id number] Lumbar Spine CT 02/23/25 18:36 IMPRESSION: Lumbar spine scoliosis and degeneration. Lumbar spine degeneration mainly L5-S1. No acute findings. Reading Location: [place] [address] Physical Exam Const alert, oriented x3 and no apparent distress General Appearance: cooperative HEENT hearing grossly normal bilaterally Head and Scalp: atraumatic Eyes EOMs intact bilaterally Neck General: normal visual inspection Chest inspection of chest normal and palpation of chest normal Resp normal respiratory effort Auscultation: clear to auscultation bilaterally Cardio regular rate, regular rhythm, S1 normal heart sound and S2 normal heart sound Jugular Venous Distention: JVD GI normal to inspection, nondistended, normoactive bowel sounds Extremity normal capillary refill and no pedal edema Peripheral Pulses: Yes pulses 2+ throughout and femoral pulses present Skin no rashes or lesions noted Neuro oriented x3 and CN's II-XII intact bilaterally Psych Appearance: grossly normal and appropriate Assessment & Plan Assessment/Plan (1) Chest pain: PLAN: She presented with chest discomfort with atypical features. Cardiac enzymes were mildly elevated. Initially the plan was to perform a cardiac catheterization but patient was uncooperative. An echocardiogram was performed which demonstrated global reduction in left ventricular systolic function suggestive of a cardiomyopathy. I suspect this was the cause of her mild EKG changes. As the cardiac enzymes were flat I will recommend continued aggressive medical therapy. (2) Elevated troponin: PLAN: She does have evidence of elevated troponin. The pattern of this was flatand therefore we will pursue medical therapy. (3) HTN (hypertension): QUALIFIERS: Hypertension type: essential hypertension Qualified Code(s): I10 - Essential (primary) hypertension PLAN: Her blood pressure appears to be elevated and with the left ventricular dysfunction I would recommend the JANNIE inhibitor Start carvedilol 3.125 mg twice a day PLAN: Plan She can be transferred out of the intensive care unit and perhaps discharge homefor outpatient follow-up. 02/24/25 6682 <Electronically signed by Elver Montero MD> Cosigner Signature (if applicable): CC: ~ Signed [facility] Work Phone: 1(757) 267-614308-06-2025 Progress note [facility] Medical Records Department [address] [place] [address] Progress Note - Cardiology 02/24/25 07 MR#: [id number] Acct: [id number] Name: LINA ISAAC Rep #:[id number] : 1965 59 From: Elver Montero MD PCP: Dr. Jese Zheng, DO Status:AD M IN Location: ICU ICU05-1 Subjective Subjective Patient seen and evaluated. Doing better this morning. Sitting in chair. No further chest pain. Only back pain noted. Objective Data Vital Signs: Vital Signs Temp Pulse Resp BP Pulse Ox O2 Del Method O2 Flow Rate 97.8 F 79 17 109/81 H 100 Nasal Cannula 4 02/24/25 04:00 02/24/25 07:00 02/24/25 07:00 02/24/25 07:00 02/24/25 07:00 02/24/25 07:00 02/24/25 07:00 Oxygen Flow Rate (L/min) 4 Oxygen Delivery Method Nasal Cannula Weight: 208 lb 12.444 oz Body Mass Index (BMI) 31.7 Intake & Output: Intake and Output for Last 24 Hours 02/22/25 02/23/25 02/24/25 23:59 23:59 23:59 Intake Total 525 / 525 Output Total 650 / 650 Balance 525 / 525 -650 / -650 Lab / Micro Data 02/24/25 04:20 02/24/25 04:20 Labs: Laboratory Results - last 24 hr 02/23/25 09:53: Lactic Acid 1.5 02/23/25 12:10: POC Glucose 263 H 02/23/25 16:11: POC Glucose 140 H 02/23/25 16:59: POC Glucose 144 H 02/23/25 21:33: POC Glucose 186 H 02/24/25 04:20: WBC 6.9, RBC 4.18 L, Hgb 12.7, Hct 37.4, MCV 89.5, MCH 30.4, MCHC 34.0, RDW Std Deviation 39.8, RDW Coeff of Brett 12.3, Plt Count 267, MPV 10.1, Immature Gran % (Auto) 0.300, Neut % (Auto) 39.4 L, Lymph % (Auto) 45.8 H,Lander % (Auto) 12.0 H, Eos % (Auto) 1.9, Baso % (Auto) 0.6, Absolute Neuts (auto)2.7, Absolute Lymphs (auto) 3.17, Nucleated RBC % 0, ESR 23, Sodium 142, Potassium 3.6, Chloride 106, Carbon Dioxide 24.9, Anion Gap 11, BUN 11, Creatinine 0.54 L, Estim Creat Clear Calc 133.31, Est GFR (MDRD) Non-Af 106, BUN/Creatinine Ratio 19.8, Glucose 103 H, Calcium 9.3, Phosphorus 4.3, Magnesium2.2, Total Bilirubin 0.85, AST 82 H, ALT 31, Alkaline Phosphatase 92, C-React Prot Ext Range 43.20 H, Total Protein 7.0, Albumin 3.8, Globulin 3.2, Albumin/Globulin Ratio 1.2, TSH 2.330 Rhythm Strip Rhythm Strip: Sinus Tach Rate: 110 Ectopy: None Cardiology Labs/Tests 02/23/25 09:53: Lactic Acid 1.5 02/24/25 04:20: WBC 6.9, RBC 4.18 L, Hgb 12.7, Hct 37.4, MCV 89.5, MCH 30.4, MCHC 34.0, Plt Count 267, MPV 10.1, Immature Gran % (Auto) 0.300, Neut % (Auto) 39.4 L, Lymph % (Auto) 45.8 H, Lander % (Auto) 12.0 H, Eos % (Auto) 1.9, Baso % (Auto) 0.6, Absolute Neuts (auto) 2.7, Nucleated RBC % 0, [id number], Potassium 3.6, Chloride 106, Carbon Dioxide 24.9, Anion Gap 11, BUN 11, Creatinine 0.54 L,Est GFR (MDRD) Non-Af 106, BUN/Creatinine Ratio 19.8, Glucose 103 H, Calcium 9.3, Phosphorus 4.3, Magnesium 2.2, Total Bilirubin 0.85 Rhythm: EKG: ECHO: Stress Test: Cardiac Cath: PCI: CT Surgery: Holter monitor: EPS: PPM: CXR: Chest CT Scan: Radiography Diagnostic Testing: Radiology Impression Echocardiogram 02/23/25 05:55 Interpretation Summary Normal LV size. The left ventricular ejection fraction is 35 %. Stage 2 diastolic dysfunction. There is moderate global hypokinesis of the left ventricle. Mild concentric left ventricular hypertrophy. Contrast injection was performed. Ordering Physician: Denton Cook Referring Physician: Jese Zheng Performed By: Shanelle Roger, RDCS, RVT Brain CT 02/23/25 09:25 IMPRESSION: CHRONIC CHANGES. NO ACUTE FINDINGS. Reading Location: [facility] Abdomen/Pelvis CT 02/23/25 10:10 IMPRESSION: No evidence of the ureteral obstruction. Reading Location: [facility] Lumbar Spine CT 02/23/25 18:36 IMPRESSION: Lumbar spine scoliosis and degeneration. Lumbar spine degeneration mainly L5-S1. No acute findings. Reading Location: [place] [address] Physical Exam Const alert, oriented x3 and no apparent distress General Appearance: cooperative HEENT hearing grossly normal bilaterally Head and Scalp: atraumatic Eyes EOMs intact bilaterally Neck General: normal visual inspection Chest inspection of chest normal and palpation of chest normal Resp normal respiratory effort Auscultation: clear to auscultation bilaterally Cardio regular rate, regular rhythm, S1 normal heart sound and S2 normal heart sound Jugular Venous Distention: JVD GI normal to inspection, nondistended, normoactive bowel sounds Extremity normal capillary refill and no pedal edema Peripheral Pulses: Yes pulses 2+ throughout and femoral pulses present Skin no rashes or lesions noted Neuro oriented x3 and CN's II-XII intact bilaterally Psych Appearance: grossly normal and appropriate Assessment & Plan Assessment/Plan (1) Chest pain: PLAN: She presented with chest discomfort with atypical features. Cardiac enzymes were mildly elevated. Initially the plan was to perform a cardiac catheterization but patient was uncooperative. An echocardiogram was performed which demonstrated global reduction in left ventricular systolic function suggestive of a cardiomyopathy. I suspect this was the cause of her mild EKG changes. As the cardiac enzymes were flat I will recommend continued aggressive medical therapy. (2) Elevated troponin: PLAN: She does have evidence of elevated troponin. The pattern of this was flatand therefore we will pursue medical therapy. (3) HTN (hypertension): QUALIFIERS: Hypertension type: essential hypertension Qualified Code(s): I10 - Essential (primary) hypertension PLAN: Her blood pressure appears to be elevated and with the left ventricular dysfunction I would recommend the JANNIE inhibitor Start carvedilol 3.125 mg twice a day PLAN: Plan She can be transferred out of the intensive care unit and perhaps discharge homefor outpatient follow-up. 02/24/25 0745 Cosigner Signature (if applicable): CC: ~ Signed [facility]08-05-2025 Radiology Diagnostic study note [facility] Imaging Services [address] [place] [id number] Spine Lumbar WITH Contrast MR#: [id number] Acct: [id number] Name: LINA ISAAC Rep #: [id number] : 1965 F 59 From: Emma Benitez MD PCP: Dr. Jese Zheng, DO Status: AD M IN Study:Spine Lumbar WITH Contrast Date of Exam : 02/23/25 Exam# [id number] Ordering Dr: Krys Mace DO PROCEDURE: SPINE LUMBAR WITH CONTRAST 02/23/2025 REASON FOR EXAM: PAIN TECHNIQUE: SPINE LUMBAR WITH CONTRAST CONTRAST: Isovue 370 VOLUME: 100 mL One or more dose reduction techniques were used (e.g., Automated exposure control, adjustment of the mA and/or kV according to patient size, use of iterative reconstruction technique). RADIATION DOSE SUMMARY: CTDlvol: 20 mGy DLP: 1030 mGycm COMPARISON: Abdominopelvic CT same day FINDINGS: Mild scoliosis. Diffuse mild facet arthritis. Multilevel mild disc space narrowing, which is severe, at L5-S1, with vacuum disc, and a small posterior disc osteophyte complex. At L4-L5, grade 1 anterolisthesis. At L3-L4, minimal grade 1 anterolisthesis. Small right and tiny left effusions. Bibasilar airspace disease, atelectasis/consolidation. Right-sided renal scarring. Upper abdominal solid organs show no acute findings. Nondistended bowel. Small bowel anastomosis. Normal appendix. Multiple diverticula. Paraspinal soft tissues show no acute findings. CT/Spine Lumbar WITH Contrast IMPRESSION: Lumbar spine scoliosis and degeneration. Lumbar spine degeneration mainly L5-S1. No acute findings. Reading Location: [place] [address] CC: Dr. Jese Zheng DO; Dr. Faye Mace DO ~ Fur Trimmer: Signed [facility]08-05-2025 Progress note Author Faye Mace [facility] Note Date/Time February 23, 2025 7:2 3pm [facility] Medical Records Department [address] [place] [address] Progress Note - Hospitalist 02/23/25 0743 MR#: [id number] Acct: [id number] Name: LINA ISAAC Rep #:[id number] : 1965 59 From: Faye Mace DO PCP: Dr. Jese Zheng DO Status:AD M IN Location: ICU ICU05-1 Reason for Visit Chief Complaint: Chest pain Subjective Subjective I saw the patient after she returned from the cardiac [employer]. She is awake and alert and oriented to time. Complains of horrible flank pain that causes her uncontrollable nausea. States has been going on for a few days but worse when she tries to lie flat and that is why she did not tolerate the cath table. Does have previous history of kidney stones. States she is having trouble getting comfortable in bed. Objective Data Objective Data Vital Signs: Vital Signs Temp Pulse Resp BP Pulse Ox O2 Del Method O2 Flow Rate 97.8 F 103 H 20 H 135/91 H 95 Nasal Cannula 2 02/23/25 06:00 02/23/25 06:00 02/23/25 06:00 02/23/25 06:00 02/23/25 06:00 02/23/25 06:00 02/23/25 06:00 Oxygen Flow Rate (L/min) 2 Oxygen Delivery Method Nasal Cannula Weight: 94.7 kg Body Mass Index (BMI) 31.7 Intake & Output: Intake and Output for Last 24 Hours 02/21/25 02/22/25 02/23/25 23:59 23:59 23:59 Intake Total 525 / 525 Balance 525 / 525 Lab / Micro Data 02/23/25 04:29 02/23/25 04:29 Labs: Laboratory Results - last 24 hr 02/22/25 17:45: WBC 7.8, RBC 4.29, Hgb 13.3, Hct 38.3, MCV 89.3, MCH 31.0, MCHC 34.7, RDW Std Deviation 39.5, RDW Coeff of Brett 12.2, Plt Count 278, MPV 10.0, Immature Gran % (Auto) 0.400, Neut % (Auto) 48.8, Lymph % (Auto) 37.3, Lander % (Auto) 11.0 H, Eos % (Auto) 1.7, Baso % (Auto) 0.8, Absolute Neuts (auto) 3.8, Absolute Lymphs (auto) 2.92, Nucleated RBC % 0, Sodium 139, Potassium 3.6, Chloride 103, Carbon Dioxide 24.0, Anion Gap 12, BUN 9, Creatinine 0.57 L, EstimCreat Clear Calc 127.95, Est GFR (MDRD) Non-Af 104, BUN/Creatinine Ratio 15.5, Glucose 270 H, Calcium 9.3, Troponin T High Sens 181 H*, NT pro BNP II 3685 H 02/22/25 19:24: Troponin T Hi Sens 2 Hr 160 H* 02/22/25 22:17: Troponin T Hi Sens 4Hr 164 H* 02/23/25 00:13: POC Glucose 373 H 02/23/25 04:29: WBC 8.5, RBC 4.12 L, Hgb 12.6, Hct 36.7 L, MCV 89.1, MCH 30.6, MCHC 34.3, RDW Std Deviation 39.6, RDW Coeff of Brett 12.3, Plt Count 269, MPV 10.2, Immature Gran % (Auto) 0.200, Neut % (Auto) 52.6, Lymph % (Auto) 32.5, Lander % (Auto) 12.7 H, Eos % (Auto) 1.3, Baso % (Auto) 0.7, Absolute Neuts (auto) 4.5, Absolute Lymphs (auto) 2.76, Nucleated RBC % 0, PT 13.6, INR 1.0, Sodium 138, Potassium 3.5, Chloride 102, Carbon Dioxide 23.6, Anion Gap 13, BUN 12, Creatinine 0.66 L, Estim Creat Clear Calc 109.07, Est GFR (MDRD) Non-Af 100, BUN/Creatinine Ratio 17.5, Glucose 253 H, Calcium 9.0, Phosphorus 3.0, Magnesium1.9 02/23/25 05:55: POC Glucose 241 H Radiography Diagnostic Testing: Radiology Impression Chest X-Ray 02/22/25 18:16 IMPRESSION: Bilateral coarse reticular airspace opacities, which may reflect interstitial fibrotic lung changes, interstitial edema, or possibly atypical/viral infection in the appropriate clinical context. Reading Location: [facility] Rhythm Strip Rhythm Strip: Sinus Tach Rate: 110 Ectopy: None Physical Exam Const alert, oriented x3 and well nourished; Negative for no apparent distress or average body habitus Constitutional Narrative: Obese, upper middle-aged, -German female, lying in bed right side- lying, appears uncomfortable, does not look toxic HEENT head/scalp atraumatic and moist oral mucous membranes HEENT Narrative: Mallampati 2, no thrush Head and Scalp: normocephalic Eyes conjunctivae normal Eyes Narrative: No scleral icterus Neck supple Neck Narrative: Trachea midline Resp normal respiratory effort, no retractions, no use of accessory muscles and clearto auscultation bilaterally Resp Narrative: Diffusely diminished but clear Auscultation: Negative for rales, rhonchi or wheezes Cardio regular rate, regular rhythm, S1 normal heart sound, S2 normal heart sound, no murmurs, no rub, no gallops and no clicks GI normal to inspection, nondistended, normoactive bowel sounds, soft to palpation and non-tender Negative for no CVA tenderness Narrative: Positive left-sided CVA tenderness Back/Spine Back/Spine Narrative: Patient appears to move all extremities well as she is squirming around in bed abit Extremity no clubbing, cyanosis or edema Extremity Narrative: 2+ pedal pulses Skin Skin Narrative: No rash noted in flank area on the left side Neuro moves all extremities and no focal motor deficits Speech: speech normal Psych Psych Narrative: Patient very anxious Assessment & Plan Assessment/Plan (1) Altered mental state: (2) Flank pain: (3) Chest pain: (4) Elevated troponin: (5) Hypoxia: PLAN: Plan Chest pain and shortness of breath - Doubt pneumonia with normal white count, no focal infiltrate, no fever, no sputum production - Stop antibiotics - Plan was for cardiac catheterization but unable to do procedure as patient wascurrently not able to lie flat due to back pain - Echocardiogram shows depressed EF at 35%, LVH, stage II diastolic dysfunction,moderate global hypokinesis -Will likely need cardiac catheterization still but back pain will need to beunder control first - Start Lasix 40 mg IV push daily - Cardiology following - Continue statin - Continue aspirin Hypoxia - Currently 99% on room air - Wean oxygen - Lasix 40 mg IV push daily Elevated troponin - Suspect cardiac etiology - EF is depressed - Cardiac catheterization was recommended but unable to proceed due to inabilitylie flat with back pain - Await cardiology further input after echo Cardiomyopathy - Etiology is unclear - EF is depressed - Not currently on beta-blockade and not listed as allergy -Monitor blood pressure and start if able - Continue home lisinopril - Continue home Jardiance - Will need to initiate full goal-directed therapy if able monitor blood pressure closely Altered mental status - EEG is pending -Lactate following was unremarkable so doubt seizure - CT of the brain unremarkable - Highly suspect supratentorial and reaction due to severe pain but will rule out organic etiology -Patient had received fentanyl and Versed prior to this but was awake after medication and then spontaneously went out with fairly quick resolution of altered mental status - If further issues may need neuro involvement - Monitor on telemetry overnight Intractable left flank pain - history of nephrolithiasis but CT of the abdomen is unremarkable - No radicular symptoms/no rash - CT of the lumbar spine with contrast is pending - Check ESR and CRP for signs of systemic inflammation - Tylenol 1 g every 8 hours - Lidocaine patch ordered - As needed oxycodone - As needed Dilaudid - MiraLAX twice daily for constipation prevention DM-2 - Patient on very large dose of basal insulin at home 112 units - Due to intermittent nausea with pain will decrease dose for now but may need to uptitrate depending on oral intake - Hold home scheduled prandial insulin and utilize SSI for now at high dose may need to reinitiate tomorrow depending on blood sugar - Hold home oral agents - Cardiac/carb controlled diet - Check A1c in a.m. Essential hypertension/hyperlipidemia - Continue home antihypertensives - continue home statin - Check lipid panel Diabetic neuropathy - Continue home gabapentin nightly Obesity - BMI 31.7 - Complicates treatment, prognosis, outcomes - Recommend weight loss DVT prophylaxis - Start enoxaparin subcu daily 40 mg CODE STATUS - Full code Charges/Coding Visit Charges Inpatient E&M: 24170 Subs Hosp L3 02/23/251922 <Electronically signed by Faye Mace DO> Cosigner Signature (if applicable): CC: ~ Signed [facility] Work Phone: [phone]) 581-201208-05-2025 Progress note [facility] Medical Records Department [address] [place] [address] Progress Note - Hospitalist 02/23/25 0743 MR#: [id number] Acct: [id number] Name: LINA ISAAC Rep #:[id number] : 1965 59 From: Faye Mace DO PCP: Dr. Jese Zheng, Status:AD M IN Location: ICU ICU05-1 Reason for Visit Chief Complaint: Chest pain Subjective Subjective I saw the patient after she returned from the cardiac [employer]. She is awake and alert and orientedto time. Complains of horrible flank pain that causes her uncontrollable nausea. States has been going on for a few days but worse when she tries to lie flat and that is why she did not tolerate the cath table. Does have previous history of kidney stones. States she is having trouble getting comfortable in bed. Objective Data Objective Data Vital Signs: Vital Signs Temp Pulse Resp BP Pulse Ox O2 Del Method O2 Flow Rate 97.8 F 103 H 20 H 135/91 H 95 Nasal Cannula 2 02/23/25 06:00 02/23/25 06:00 02/23/25 06:00 02/23/25 06:00 02/23/25 06:00 02/23/25 06:00 02/23/25 06:00 Oxygen Flow Rate (L/min) 2 Oxygen Delivery Method Nasal Cannula Weight: 94.7 kg Body Mass Index (BMI) 31.7 Intake & Output: Intake and Output for Last 24 Hours 02/21/25 02/22/25 02/23/25 23:59 23:59 23:59 Intake Total 525 / 525 Balance 525 / 525 Lab / Micro Data 02/23/25 04:29 02/23/25 04:29 Labs: Laboratory Results - last 24 hr 02/22/25 17:45: WBC 7.8, RBC 4.29, Hgb 13.3, Hct 38.3, MCV 89.3, MCH 31.0, MCHC 34.7, RDW Std Deviation 39.5, RDW Coeff of Brett 12.2, Plt Count 278, MPV 10.0, Immature Gran % (Auto) 0.400, Neut % (Auto) 48.8, Lymph % (Auto) 37.3, Lander % (Auto) 11.0 H, Eos % (Auto) 1.7, Baso % (Auto) 0.8, Absolute Neuts (auto) 3.8, Absolute Lymphs (auto) 2.92, Nucleated RBC % 0, Sodium 139, Potassium 3.6, Chloride 103, Carbon Dioxide 24.0, Anion Gap 12, BUN 9, Creatinine 0.57 L, EstimCreat Clear Calc 127.95, Est GFR (MDRD) Non-Af 104, BUN/Creatinine Ratio 15.5, Glucose 270 H, Calcium 9.3, Troponin T High Sens 181 H*, NT pro BNP II 3685 H 02/22/25 19:24: Troponin T Hi Sens 2 Hr 160 H* 02/22/25 22:17: Troponin T Hi Sens 4Hr 164 H* 02/23/25 00:13: POC Glucose 373 H 02/23/25 04:29: WBC 8.5, RBC 4.12 L, Hgb 12.6, Hct 36.7 L, MCV 89.1, MCH 30.6, MCHC 34.3, RDW Std Deviation 39.6, RDW Coeff of Brett 12.3, Plt Count 269, MPV 10.2, Immature Gran % (Auto) 0.200, Neut % (Auto) 52.6, Lymph % (Auto) 32.5, Lander % (Auto) 12.7 H, Eos % (Auto) 1.3, Baso % (Auto) 0.7, Absolute Neuts (auto) 4.5, Absolute Lymphs (auto) 2.76, Nucleated RBC % 0, PT 13.6, INR 1.0, Sodium 138, Potassium 3.5, Chloride 102, Carbon Dioxide 23.6, Anion Gap 13, BUN 12, Creatinine 0.66 L, Estim CreatClear Calc 109.07, Est GFR (MDRD) Non-Af 100, BUN/Creatinine Ratio 17.5, Glucose 253 H, Calcium 9.0, Phosphorus 3.0, Magnesium1.9 02/23/25 05:55: POC Glucose 241 H Radiography Diagnostic Testing: Radiology Impression Chest X-Ray 02/22/25 18:16 IMPRESSION: Bilateral coarse reticular airspace opacities, which may reflect interstitial fibrotic lung changes, interstitial edema, or possibly atypical/viral infection in the appropriate clinical context. Reading Location: [facility] Rhythm Strip Rhythm Strip: Sinus Tach Rate: 110 Ectopy: None Physical Exam Const alert, oriented x3 and well nourished; Negative for no apparent distress or average body habitus Constitutional Narrative: Obese, upper middle-aged, -German female, lying in bed right side- lying, appears uncomfortable, does not look toxic HEENT head/scalp atraumatic and moist oral mucous membranes HEENT Narrative: Mallampati 2, no thrush Head and Scalp: normocephalic Eyes conjunctivae normal Eyes Narrative: No scleral icterus Neck supple Neck Narrative: Trachea midline Resp normal respiratory effort, no retractions, no use of accessory muscles and clearto auscultation bilaterally Resp Narrative: Diffusely diminished but clear Auscultation: Negative for rales, rhonchi or wheezes Cardio regular rate, regular rhythm, S1 normal heart sound, S2 normal heart sound, no murmurs, no rub, no gallops and no clicks GI normal to inspection, nondistended, normoactive bowel sounds, soft to palpation and non-tender Negative for no CVA tenderness Narrative: Positive left-sided CVA tenderness Back/Spine Back/Spine Narrative: Patient appears to move all extremities well as she is squirming around in bed abit Extremity no clubbing, cyanosis or edema Extremity Narrative: 2+ pedal pulses Skin Skin Narrative: No rash noted in flank area on the left side Neuro moves all extremities and no focal motor deficits Speech: speech normal Psych Psych Narrative: Patient very anxious Assessment & Plan Assessment/Plan (1) Altered mental state: (2) Flank pain: (3) Chest pain: (4) Elevated troponin: (5) Hypoxia: PLAN: Plan Chest pain and shortness of breath - Doubt pneumonia with normal white count, no focal infiltrate, no fever, no sputum production - Stop antibiotics - Plan was for cardiac catheterization but unable to do procedure as patient wascurrently not able to lie flat due to back pain - Echocardiogram shows depressed EF at 35%, LVH, stage II diastolic dysfunction,moderate global hypokinesis -Will likely need cardiac catheterization still but back pain will need to beunder control first - Start Lasix 40 mg IV push daily - Cardiology following - Continue statin - Continue aspirin Hypoxia - Currently 99% on room air - Wean oxygen - Lasix 40 mg IV push daily Elevated troponin - Suspect cardiac etiology - EF is depressed - Cardiac catheterization was recommended but unable to proceed due to inabilitylie flat with back pain - Await cardiology further input after echo Cardiomyopathy - Etiology is unclear - EF is depressed - Not currently on beta-blockade and not listed as allergy -Monitor blood pressure and start if able - Continue home lisinopril - Continue home Jardiance - Will need to initiate full goal-directed therapy if able monitor blood pressure closely Altered mental status - EEG is pending -Lactate following was unremarkable so doubt seizure - CT of the brain unremarkable - Highly suspect supratentorial and reaction due to severe pain but will rule out organic etiology -Patient had received fentanyl and Versed prior to this but was awake after medication and then spontaneously went out with fairly quick resolution of altered mental status - If further issues may need neuro involvement - Monitor on telemetry overnight Intractable left flank pain - history of nephrolithiasis but CT of the abdomen is unremarkable - No radicular symptoms/no rash - CT of the lumbar spine with contrast is pending - Check ESR and CRP for signs of systemic inflammation - Tylenol 1 g every 8 hours - Lidocaine patch ordered - As needed oxycodone - As needed Dilaudid - MiraLAX twice daily for constipation prevention DM-2 - Patient on very large dose of basal insulin at home 112 units - Due to intermittent nausea with pain will decrease dose for now but may need to uptitrate depending on oral intake - Hold home scheduled prandial insulin and utilize SSI for now at high dose may need to reinitiate tomorrow depending on blood sugar - Hold home oral agents - Cardiac/carb controlled diet - Check A1c in a.m. Essential hypertension/hyperlipidemia - Continue home antihypertensives - continue home statin - Check lipid panel Diabetic neuropathy - Continue home gabapentin nightly Obesity - BMI 31.7 - Complicates treatment, prognosis, outcomes - Recommend weight loss DVT prophylaxis - Start enoxaparin subcu daily 40 mg CODE STATUS - Full code Charges/Coding Visit Charges Inpatient E&M: 93294 Subs Hosp L3 02/23/251922 Cosigner Signature (if applicable): CC: ~ Signed [facility]08-05-2025 Radiology Diagnostic study note [facility] Imaging Services [address] [place], [place] [address] Abdomen/Pelvis without Cont MR#: [id number] Acct: [id number] Name: LINA ISAAC Rep #: [id number] : 1965 F 59 From: Cisco Gilman MD PCP: Dr. Jese Zheng, DO Status: AD M IN Study:Abdomen/Pelvis without Cont Date of Exa m: 02/23/25 Exam# [id number] Ordering Dr: Krys Mace DO PROCEDURE: ABDOMEN/PELVIS WITHOUT CONT 02/23/2025 REASON FOR EXAM: BACK/FLANK PAIN Left flank pain. TECHNIQUE: ABDOMEN/PELVIS WITHOUT CONT Noncontrast technique limits evaluation of the abdominal and pelvic viscera. Coronal and Sagittal reconstruction series were provided. One or more dose reduction techniques were used (e.g., Automated exposure control, adjustment of the mA and/or kV according to patient size, use of iterative reconstruction technique). RADIATION DOSE SUMMARY: CTDlvol: 14.8 mGy DLP: 949.4 mGycm COMPARISON: Prior study dated August 21, 2019. FINDINGS: Lung bases: Small bilateral pleural effusions. Findings suggestive of bibasilaratelectasis. There is an 11.4 mm noncalcified nodule in the anterior right middle lobe. Coronary artery calcification. Liver: Unremarkable Gallbladder: Unremarkable Spleen: Normal size. Pancreas: Normal size. No surrounding inflammation. Adrenals: The adrenal glands are unremarkable. Kidneys: No evidence of ureteral obstruction. No evidence of hydronephrosis. Bladder: The urinary bladder is only partially filled. Reproductive Organs: Questionable uterine prolapse. Bowel: Colonic diverticulosis without diverticulitis. Surgical anastomosis is seen in the central small-bowel. Appendix: The appendix is not identified. There is no inflammatory process identified in the right lower quadrant to suggest appendicitis. Lymph nodes: Unremarkable. Vasculature: Mild diffuse atherosclerotic calcifications are noted. Peritoneum / Retroperitoneum: Unremarkable Bones: Degenerative changes of the spine. CT/Abdomen/Pelvis without Cont IMPRESSION: No evidence of the ureteral obstruction. Reading Location: [id number] CC: Dr. Jese Zheng DO; Dr. Faye Mace DO ~ Fur Trimmer: Signed [facility]08-05-2025 Radiology Diagnostic study note [facility] Imaging Services [address] [place] [id number] Brain/Head without Contrast MR#: [id number] Acct: [id number] Name: LINA ISAAC Rep #: [id number] : 1965 F 59 From: Cisco Gilman MD PCP: Dr. Jese Zheng DO Status: AD M IN Study:Brain/Head without Contrast Date of Exa m: 02/23/25 Exam# [id number] Ordering Dr: Krys Mace DO PROCEDURE: BRAIN/HEAD WITHOUT CONTRAST 02/23/2025 REASON FOR EXAM: ALTERED MS TECHNIQUE: BRAIN/HEAD WITHOUT CONTRAST Coronal and Sagittal reconstruction series were provided. One or more dose reduction techniques were used (e.g., Automated exposure control, adjustment of the mA and/or kV according to patient size, use of iterative reconstruction technique. RADIATION DOSE SUMMARY: CTDlvol: 44.99 mGy DLP: 779.24 mGycm COMPARISON: None FINDINGS: Brain: Low density in the periventricular white matter suggests mild chronic small vessel ischemic changes. Focal decreased density in the posterior medial aspect of the left occipital lobe suggestive of possible prior ischemic insult. CSF Spaces: Mild generalized cerebral atrophy Sinuses/Mastoids: Mild mucosal thickening of the left maxillary sinus. Bones: Unremarkable. CT/Brain/Head without Contrast IMPRESSION: CHRONIC CHANGES. NO ACUTE FINDINGS. Reading Location: [id number] CC: Dr. Jese Zheng DO; Dr. Faye Mace DO ~ Fur Trimmer: Signed [facility]08-05-2025 Progress note Author Elver Montero [facility] Note Date/Time February 23, 2025 9:0 2am [facility] Medical Records Department [address] [place] [address] Progress Note - Cardiology 02/23/25 0900 MR#: [id number] Acct: [id number] Name: LINA ISAAC Rep #:[id number] : 1965 59 From: Elver Montero MD PCP: Dr. Jese Zheng DO Status:AD M IN Location: [place] [address] Subjective Subjective Patient seen in [facility]. Patient said that she could not lie down flat. Preparation for the procedure was given 1 Versed and 50 mcg of fentanyl. To help with back pain. She takes Vicodin at home. She could absolutely not lie down flat and would occasionally have these episodes where she would appear to be unconscious but with a normal blood pressure and heart rate. During 1 of these episodes her blood pressure was 150/100 mmHg and her pulse rate of 100 bpmmonitored. Objective Data Vital Signs: Vital Signs Temp Pulse Resp BP Pulse Ox O2 Del Method O2 Flow Rate 97.8 F 103 H 20 H 135/91 H 95 Nasal Cannula 2 02/23/25 06:00 02/23/25 06:00 02/23/25 06:00 02/23/25 06:00 02/23/25 06:00 02/23/25 06:00 02/23/25 06:00 Oxygen Flow Rate (L/min) 2 Oxygen Delivery Method Nasal Cannula Weight: 208 lb 12.444 oz Body Mass Index (BMI) 31.7 Intake & Output: Intake and Output for Last 24 Hours 02/21/25 02/22/25 02/23/25 23:59 23:59 23:59 Intake Total 525 / 525 Balance 525 / 525 Lab / Micro Data 02/23/25 04:29 02/23/25 04:29 Labs: Laboratory Results - last 24 hr 02/22/25 17:45: WBC 7.8, RBC 4.29, Hgb 13.3, Hct 38.3, MCV 89.3, MCH 31.0, MCHC 34.7, RDW Std Deviation 39.5, RDW Coeff of Brett 12.2, Plt Count 278, MPV 10.0, Immature Gran % (Auto) 0.400, Neut % (Auto) 48.8, Lymph % (Auto) 37.3, Lander % (Auto) 11.0 H, Eos % (Auto) 1.7, Baso % (Auto) 0.8, Absolute Neuts (auto) 3.8, Absolute Lymphs (auto) 2.92, Nucleated RBC % 0, Sodium 139, Potassium 3.6, Chloride 103, Carbon Dioxide 24.0, Anion Gap 12, BUN 9, Creatinine 0.57 L, EstimCreat Clear Calc 127.95, Est GFR (MDRD) Non-Af 104, BUN/Creatinine Ratio 15.5, Glucose 270 H, Calcium 9.3, Troponin T High Sens 181 H*, NT pro BNP II 3685 H 02/22/25 19:24: Troponin T Hi Sens 2 Hr 160 H* 02/22/25 22:17: Troponin T Hi Sens 4Hr 164 H* 02/23/25 00:13: POC Glucose 373 H 02/23/25 04:29: WBC 8.5, RBC 4.12 L, Hgb 12.6, Hct 36.7 L, MCV 89.1, MCH 30.6, MCHC 34.3, RDW Std Deviation 39.6, RDW Coeff of Brett 12.3, Plt Count 269, MPV 10.2, Immature Gran % (Auto) 0.200, Neut % (Auto) 52.6, Lymph % (Auto) 32.5, Lander % (Auto) 12.7 H, Eos % (Auto) 1.3, Baso % (Auto) 0.7, Absolute Neuts (auto) 4.5, Absolute Lymphs (auto) 2.76, Nucleated RBC % 0, PT 13.6, INR 1.0, Sodium 138, Potassium 3.5, Chloride 102, Carbon Dioxide 23.6, Anion Gap 13, BUN 12, Creatinine 0.66 L, Estim Creat Clear Calc 109.07, Est GFR (MDRD) Non-Af 100, BUN/Creatinine Ratio 17.5, Glucose 253 H, Calcium 9.0, Phosphorus 3.0, Magnesium1.9 02/23/25 05:55: POC Glucose 241 H Rhythm Strip Rhythm Strip: Sinus Tach Rate: 110 Ectopy: None Cardiology Labs/Tests 02/22/25 17:45: WBC 7.8, RBC 4.29, Hgb 13.3, Hct 38.3, MCV 89.3, MCH 31.0, MCHC 34.7, Plt Count 278, MPV 10.0, Immature Gran % (Auto) 0.400, Neut % (Auto) 48.8,Lymph % (Auto) 37.3, Lander % (Auto) 11.0 H, Eos % (Auto) 1.7, Baso % (Auto) 0.8, Absolute Neuts (auto) 3.8, Nucleated RBC % 0, Sodium 139, Potassium 3.6, Chloride 103, Carbon Dioxide 24.0, Anion Gap 12, BUN 9, Creatinine 0.57 L, Est GFR (MDRD) Non-Af 104, BUN/Creatinine Ratio 15.5, Glucose 270 H, Calcium 9.3 02/23/25 04:29: WBC 8.5, RBC 4.12 L, Hgb 12.6, Hct 36.7 L, MCV 89.1, MCH 30.6, MCHC 34.3, Plt Count 269, MPV 10.2, Immature Gran % (Auto) 0.200, Neut % (Auto) 52.6, Lymph % (Auto) 32.5, Lander % (Auto) 12.7 H, Eos % (Auto) 1.3, Baso % (Auto)0.7, Absolute Neuts (auto) 4.5, Nucleated RBC % 0, PT 13.6, INR 1.0, Sodium 138,Potassium 3.5, Chloride 102, Carbon Dioxide 23.6, Anion Gap 13, BUN 12, Creatinine 0.66 L, Est GFR (MDRD) Non-Af 100, BUN/Creatinine Ratio 17.5, Glucose 253 H, Calcium 9.0, Phosphorus 3.0, Magnesium 1.9 Rhythm: EKG: ECHO: Stress Test: Cardiac Cath: PCI: CT Surgery: Holter monitor: EPS: PPM: CXR: Chest CT Scan: Radiography Diagnostic Testing: Radiology Impression Chest X-Ray 02/22/25 18:16 IMPRESSION: Bilateral coarse reticular airspace opacities, which may reflect interstitial fibrotic lung changes, interstitial edema, or possibly atypical/viral infection in the appropriate clinical context. Reading Location: [facility] Physical Exam Const no apparent distress Constitutional Narrative: Intermittent oriented. General Appearance: cooperative HEENT hearing grossly normal bilaterally Head and Scalp: atraumatic Eyes EOMs intact bilaterally Neck General: normal visual inspection Chest inspection of chest normal and palpation of chest normal Resp normal respiratory effort Auscultation: clear to auscultation bilaterally Cardio regular rate, regular rhythm, S1 normal heart sound and S2 normal heart sound Jugular Venous Distention: JVD GI normal to inspection, nondistended, normoactive bowel sounds Extremity normal capillary refill and no pedal edema Peripheral Pulses: Yes pulses 2+ throughout and femoral pulses present Skin no rashes or lesions noted Neuro oriented x3 and CN's II-XII intact bilaterally Psych Appearance: grossly normal and appropriate Assessment & Plan Assessment/Plan (1) Chest pain: PLAN: She presents with chest discomfort which has some atypical features but her cardiac enzymes are elevated. Patient cannot tolerate laying down flat and so it was determined that we should manage this medically. Will evaluate her with an echocardiogram and if ejection fraction is preserved with pursue aggressive medical therapy. This is especially in light of the fact that the chest pain has some significant atypical features. Perhaps at a later time she may be able to lay down flat for us to pursue an invasive therapy. The patient has been transferred to the intensive care unit for monitoring for few hours dueto her rather unusual behavior and response. (2) Elevated troponin: PLAN: She does have evidence of elevated troponin. (3) HTN (hypertension): QUALIFIERS: Hypertension type: essential hypertension Qualified Code(s): I10 - Essential (primary) hypertension PLAN: Her blood pressure appears to be elevated and I would recommend that we start her on an JANNIE inhibitor as she is a diabetic. An echocardiogram will be also performed to assess her ventricular function and depending on the findings further recommendations will be made. 02/23/25 09 <Electronically signed by Elver Montero MD> Cosigner Signature (if applicable): CC: ~ Signed [facility] Work Phone: [phone] Consult note Author Elver Montero [facility] Note Date/Time February 23, 2025 8:0 5am [facility] Medical Records Department [address] [place] [address] Consultation - Cardiology 02/23/25 0759 MR#: [id number] Acct: [id number] Name: LINA ISAAC Rep #:[id number] : 1965 59 From: Elver Montero MD PCP: Dr. Jese Zheng, DO Status:AD M IN Location: [place] [address] Assessment & Plan Assessment/Plan (1) Chest pain: PLAN: She presents with chest discomfort which has some atypical features but her cardiac enzymes are elevated significantly enough that I think that we need to likely pursue a left heart catheterization. The risk benefits alternatives of an explained to the patient she understands and agrees to proceed. (2) Elevated troponin: PLAN: She does have evidence of elevated troponin. Will need to evaluate the above with a cardiac catheterization. (3) HTN (hypertension): QUALIFIERS: Hypertension type: essential hypertension Qualified Code(s): I10 - Essential (primary) hypertension PLAN: Her blood pressure appears to be elevated and I would recommend that we start her on an JANNIE inhibitor as she is a diabetic. An echocardiogram will be also performed to assess her ventricular function and depending on the findings further recommendations will be made. HPI Consult Data Date of Consult: 02/23/25 HPI Narrative HPI Narrative: LINA ISAAC, is a 59 F who presents to the emergency room after she was sent there from her physician's office with a complaint of chest discomfort. She describes this as sharp location and a dull does not allow her to lie down and she has to sit up and has not been able to sleep well for a few days. She also says that she has been short of breath and has had a productive cough with some wheezing and she thought it was a pneumonia went to the primary physician's office but was sent to the emergency room. In the emergency room she was evaluated she was noted to be tachycardic with a decent blood pressure and cardiac enzymes were noted to be abnormal and cardiology was called for further evaluation and management. She does have a history of diabetes, but no history of hypertension or hyperlipidemia. PFSH Medical History Dyslipidemia Trigger ring finger of left hand Obesity Essential hypertension GERD (gastroesophageal reflux disease) Low HDL (under 40) Incisional hernia without obstruction or gangrene Unspecified hereditary and idiopathic peripheral neuropathy Type 2 diabetes mellitus with polyneuropathy Kidney stones Blood clot in vein Hx: UTI (urinary tract infection) Home Medications ?Medication ?Instructions ?Recorded ?Last Taken ?Type albuterol sulfate 90 mcg/actuation 2 puff inhalation Q 4H PRN PRN 04/08/14 04/08/14 02:30 History aerosol inhaler Wheezing calcium 315 mg (as 1 tab PO DAILY 04/08/1403/22 22:00 History citrate)-vitamin D3 6.25 mcg (250 2 ta b unit) tablet lisinopril 10 mg tablet 1 tab PO DAILY 04/07/1703/22 08:00 History 1 tab magnesium citrate 150 ml PO Q6H PRN PRN Consti pation 01/22/19 Unknown Rx #300 mL albuterol sulfate 2.5 mg/3 mL 2.5 mg inhalation Q4H IA N 05/11/19 Unknown History (0.083 %) solution for nebulization shortness of breat h or wheezing alcohol swabs (BD Alcohol Swabs) See Rx Instructions t opical 05/11/19 Unknown History .COMPLEX aspirin 81 mg tablet,delayed 81 mg PO DAILY 05/11/19 U nknown History release (Adult Low Dose Aspirin) atorvastatin 40 mg tablet 40 mg PO DAILY 05/11/19 Unkn own History blood sugar diagnostic (FreeStyle #10 ea 05/11/19 Unkn own History Lite Strips) blood-glucose meter (FreeStyle #1 ea 05/11/19 Unknown History Lite Meter kit) famotidine 20 mg tablet 20 mg PO BID 05/11/19 Unknow n History insulin degludec 100 unit/mL (3 112 unit subcut QHS Unknown History mL) subcutaneous pen (Tresiba FlexTouch U-100 insulin) lancets 30 gauge (Unilet Super #25 ea 05/11/19 Unknown History Thin Lancets) mupirocin 2 % topical ointment 1 applic topical BID Unknown History pen needle, diabetic 31 gauge x #30 ea 05/11/19 Unknow n History 3 (1st Tier Unifine Pentips) polyethylene glycol 3350 17 17 g PO BID 05/11/19 Unkno wn History gram/dose oral powder (Miralax) flash glucose sensor (FreeStyle #2 ea 02/26/20 Unknown Rx Michi 14 Day Sensor kit) insulin aspart U-100 100 unit/mL 20 unit (0.2 mL) subc ut TID #24 mL 04/05/20 Unknown Rx (3 mL) subcutaneous pen (Novolog FlexPen U-100 Insulin aspart) metformin 1,000 mg tablet 1,000 mg PO BID diabetes Unknown History cyanocobalamin (vitamin B-12) 2,000 mcg PO DAILY 02/22 Unknown History 1,000 mcg tablet,extended release dulaglutide 4.5 mg/0.5 mL 4.5 mg subcut QWEEK 02/22/25 Unknown History subcutaneous pen injector (Trulicity) empagliflozin 10 mg tablet 25 mg PO BREAKFAST 02/22/25 Unknown History (Jardiance) fluoxetine 20 mg capsule 20 mg PO DAILY 02/22/25 Unkn own History gabapentin 100 mg capsule 100 mg PO QHS 02/22/25 Unkno wn History Allergy/AdvReac Type Severity Reaction Status Date / Time tramadol Allergy Hives Verified 02/22/25 16:32 albuterol sulfate (From AdvReac Vomiting Verified 02/22/25 16:32 Proventil HFA) ammonium lactate (From AdvReac Other Verified 02/22/25 16:32 Lac-Hydrin) phentermine HCl (From AdvReac Chest Verified 02/22/25 16:32 Adipex-P) tightness Family History Uncle Cancer Sister Diabetes Social History Smoking Status: Current some day smoker tobacco type: cigarettes alcohol intake: never substance use type: does not use ROS Constitutional Constitutional: Denies fever(s) or weight loss Eyes Eyes: Reports systems reviewed and no addt'l complaints, except as documented ENT HEENT: Reports systems reviewed and no addt'l complaints, except as documented Cardiovascular Cardiovascular: Reports chest pain at rest and chest pain with activity; Denies dyspnea at rest, dyspnea on exertion, edema, palpitations or paroxysmal nocturnal dyspnea Respiratory/Chest Respiratory/Chest: Denies dyspnea on exertion, productive cough, shortness of breath at rest or shortness of breath with exertion Gastrointestinal Gastrointestinal: Denies change in bowel habits, nausea, vomiting or weight changes Genitourinary Genitourinary: Denies difficulty urinating Musculoskeletal Musculoskeletal: Denies joint stiffness or muscle weakness Integumentary Integumentary: Denies lesions Neurologic Neurologic: Denies dizziness or syncope Psychiatric Psychiatric: Denies anxiety Endocrine Endocrinology: Denies excessive sweating or fatigue Hematologic/Lymphatic Hematologic/Lymphatic: Denies anemia Allergic/Immunologic Allergic/Immunologic: Denies seasonal rhinorrhea Physical Exam Const alert, oriented x3 and no apparent distress General Appearance: cooperative HEENT hearing grossly normal bilaterally Head and Scalp: atraumatic Eyes EOMs intact bilaterally Neck General: normal visual inspection Chest inspection of chest normal and palpation of chest normal Resp normal respiratory effort Auscultation: clear to auscultation bilaterally Cardio regular rate, regular rhythm, S1 normal heart sound and S2 normal heart sound Jugular Venous Distention: JVD GI normal to inspection, nondistended, normoactive bowel sounds Extremity normal capillary refill and no pedal edema Peripheral Pulses: Yes pulses 2+ throughout and femoral pulses present Skin no rashes or lesions noted Neuro oriented x3 and CN's II-XII intact bilaterally Psych Appearance: grossly normal and appropriate Risk Stratification Risk Stratification Applicable: Yes Age >/= 65: No >/= 3 CAD Risk Factors (HTN, HLD, DM, family hx of CAD, or current smoker): No Aspirin Use in the Past 7 Days: No Severe Angina (>/= episodes in 24 hours): No EKG ST Changes >/= 0.5mm: No Positive Cardiac Marker: Yes CLIFF Risk Stratification Score: 1 CLIFF % Risk: 5% Risk Objective Data Vital Signs: Vital Signs Temp Pulse Resp BP Pulse Ox O2 Del Method O2 Flow Rate 97.8 F 103 H 20 H 135/91 H 95 Nasal Cannula 2 02/23/25 06:00 02/23/25 06:00 02/23/25 06:00 02/23/25 06:00 02/23/25 06:00 02/23/25 06:00 02/23/25 06:00 Oxygen Flow Rate (L/min) 2 Oxygen Delivery Method Nasal Cannula Weight: 208 lb 12.444 oz Body Mass Index (BMI) 31.7 Intake & Output: Intake and Output for Last 24 Hours 02/21/25 02/22/25 02/23/25 23:59 23:59 23:59 Intake Total 525 / 525 Balance 525 / 525 Lab / Micro Data 02/23/25 04:29 02/23/25 04:29 Labs: Laboratory Results - last 24 hr 02/22/25 17:45: WBC 7.8, RBC 4.29, Hgb 13.3, Hct 38.3, MCV 89.3, MCH 31.0, MCHC 34.7, RDW Std Deviation 39.5, RDW Coeff of Brett 12.2, Plt Count 278, MPV 10.0, Immature Gran % (Auto) 0.400, Neut % (Auto) 48.8, Lymph % (Auto) 37.3, Lander % (Auto) 11.0 H, Eos % (Auto) 1.7, Baso % (Auto) 0.8, Absolute Neuts (auto) 3.8, Absolute Lymphs (auto) 2.92, Nucleated RBC % 0, Sodium 139, Potassium 3.6, Chloride 103, Carbon Dioxide 24.0, Anion Gap 12, BUN 9, Creatinine 0.57 L, EstimCreat Clear Calc 127.95, Est GFR (MDRD) Non-Af 104, BUN/Creatinine Ratio 15.5, Glucose 270 H, Calcium 9.3, Troponin T High Sens 181 H*, NT pro BNP II 3685 H 02/22/25 19:24: Troponin T Hi Sens 2 Hr 160 H* 02/22/25 22:17: Troponin T Hi Sens 4Hr 164 H* 02/23/25 00:13: POC Glucose 373 H 02/23/25 04:29: WBC 8.5, RBC 4.12 L, Hgb 12.6, Hct 36.7 L, MCV 89.1, MCH 30.6, MCHC 34.3, RDW Std Deviation 39.6, RDW Coeff of Brett 12.3, Plt Count 269, MPV 10.2, Immature Gran % (Auto) 0.200, Neut % (Auto) 52.6, Lymph % (Auto) 32.5, Lander % (Auto) 12.7 H, Eos % (Auto) 1.3, Baso % (Auto) 0.7, Absolute Neuts (auto) 4.5, Absolute Lymphs (auto) 2.76, Nucleated RBC % 0, PT 13.6, INR 1.0, Sodium 138, Potassium 3.5, Chloride 102, Carbon Dioxide 23.6, Anion Gap 13, BUN 12, Creatinine 0.66 L, Estim Creat Clear Calc 109.07, Est GFR (MDRD) Non-Af 100, BUN/Creatinine Ratio 17.5, Glucose 253 H, Calcium 9.0, Phosphorus 3.0, Magnesium1.9 02/23/25 05:55: POC Glucose 241 H Rhythm Strip Rhythm Strip: Sinus Tach Rate: 110 Ectopy: None Cardiology Labs/Tests 02/22/25 17:45: WBC 7.8, RBC 4.29, Hgb 13.3, Hct 38.3, MCV 89.3, MCH 31.0, MCHC 34.7, Plt Count 278, MPV 10.0, Immature Gran % (Auto) 0.400, Neut % (Auto) 48.8,Lymph % (Auto) 37.3, Lander % (Auto) 11.0 H, Eos % (Auto) 1.7, Baso % (Auto) 0.8, Absolute Neuts (auto) 3.8, Nucleated RBC % 0, Sodium 139, Potassium 3.6, Chloride 103, Carbon Dioxide 24.0, Anion Gap 12, BUN 9, Creatinine 0.57 L, Est GFR (MDRD) Non-Af 104, BUN/Creatinine Ratio 15.5, Glucose 270 H, Calcium 9.3 02/23/25 04:29: WBC 8.5, RBC 4.12 L, Hgb 12.6, Hct 36.7 L, MCV 89.1, MCH 30.6, MCHC 34.3, Plt Count 269, MPV 10.2, Immature Gran % (Auto) 0.200, Neut % (Auto) 52.6, Lymph % (Auto) 32.5, Lander % (Auto) 12.7 H, Eos % (Auto) 1.3, Baso % (Auto)0.7, Absolute Neuts (auto) 4.5, Nucleated RBC % 0, PT 13.6, INR 1.0, Sodium 138,Potassium 3.5, Chloride 102, Carbon Dioxide 23.6, Anion Gap 13, BUN 12, Creatinine 0.66 L, Est GFR (MDRD) Non-Af 100, BUN/Creatinine Ratio 17.5, Glucose 253 H, Calcium 9.0, Phosphorus 3.0, Magnesium 1.9 Rhythm: EKG: ECHO: Stress Test: Cardiac Cath: PCI: CT Surgery: Holter monitor: EPS: PPM: CXR: Chest CT Scan: Radiography Diagnostic Testing: Radiology Impression Chest X-Ray 02/22/25 18:16 IMPRESSION: Bilateral coarse reticular airspace opacities, which may reflect interstitial fibrotic lung changes, interstitial edema, or possibly atypical/viral infection in the appropriate clinical context. Reading Location: [id number] 02/23/25804 <Electronically signed by Elver Montero MD> Cosigner Signature (if applicable): CC: Dr. Jese Zheng, DO~ Signed [facility] Work Phone: [phone] Progress note [facility] Medical Records Department [address] [place] [address] Progress Note - Cardiology 02/23/25 0900 MR#: [id number] Acct: [id number] Name: LINA ISAAC Bean Rep #:[id number] : 1965 59 From: Elver Montero MD PCP: Dr. Jese Zheng, Status:AD M IN Location: [place] [address] Subjective Subjective Patient seen in [facility] [facility]. Patient said that she could not lie down flat. Preparation for the procedure was given 1 Versed and 50 mcg of fentanyl. To help with back pain. She takes Vicodin at home. She could absolutely not lie down flat and would occasionally have these episodes where she would appear to be unconscious but with a normal blood pressure and heart rate. During 1 of these episodes herblood pressure was 150/100 mmHg and her pulse rate of 100 bpmmonitored. Objective Data Vital Signs: Vital Signs Temp Pulse Resp BP Pulse Ox O2 Del Method O2 Flow Rate 97.8 F 103 H 20 H 135/91 H 95 Nasal Cannula 2 02/23/25 06:00 02/23/25 06:00 02/23/25 06:00 02/23/25 06:00 02/23/25 06:00 02/23/25 06:00 02/23/25 06:00 Oxygen Flow Rate (L/min) 2 Oxygen Delivery Method Nasal Cannula Weight: 208 lb 12.444 oz Body Mass Index (BMI) 31.7 Intake & Output: Intake and Output for Last 24 Hours 02/21/25 02/22/25 02/23/25 23:59 23:59 23:59 Intake Total 525 / 525 Balance 525 / 525 Lab / Micro Data 02/23/25 04:29 02/23/25 04:29 Labs: Laboratory Results - last 24 hr 02/22/25 17:45: WBC 7.8, RBC 4.29, Hgb 13.3, Hct 38.3, MCV 89.3, MCH 31.0, MCHC 34.7, RDW Std Deviation 39.5, RDW Coeff of Brett 12.2, Plt Count 278, MPV 10.0, Immature Gran % (Auto) 0.400, Neut % (Auto) 48.8, Lymph % (Auto) 37.3, Lander % (Auto) 11.0 H, Eos % (Auto) 1.7, Baso % (Auto) 0.8, Absolute Neuts (auto) 3.8, Absolute Lymphs (auto) 2.92, Nucleated RBC % 0, Sodium 139, Potassium 3.6, Chloride 103, Carbon Dioxide 24.0, Anion Gap 12, BUN 9, Creatinine 0.57 L, EstimCreat Clear Calc 127.95, Est GFR (MDRD) Non-Af 104, BUN/Creatinine Ratio 15.5, Glucose 270 H, Calcium 9.3, Troponin T High Sens 181 H*, NT pro BNP II 3685 H 02/22/25 19:24: Troponin T Hi Sens 2 Hr 160 H* 02/22/25 22:17: Troponin T Hi Sens 4Hr 164 H* 02/23/25 00:13: POC Glucose 373 H 02/23/25 04:29: WBC 8.5, RBC 4.12 L, Hgb 12.6, Hct 36.7 L, MCV 89.1, MCH 30.6, MCHC 34.3, RDW Std Deviation 39.6, RDW Coeff of Brett 12.3, Plt Count 269, MPV 10.2, Immature Gran % (Auto) 0.200, Neut % (Auto) 52.6, Lymph % (Auto) 32.5, Lander % (Auto) 12.7 H, Eos % (Auto) 1.3, Baso % (Auto) 0.7, Absolute Neuts (auto) 4.5, Absolute Lymphs (auto) 2.76, Nucleated RBC % 0, PT 13.6, INR 1.0, Sodium 138, Potassium 3.5, Chloride 102, Carbon Dioxide 23.6, Anion Gap 13, BUN 12, Creatinine 0.66 L, Estim CreatClear Calc 109.07, Est GFR (MDRD) Non-Af 100, BUN/Creatinine Ratio 17.5, Glucose 253 H, Calcium 9.0, Phosphorus 3.0, Magnesium1.9 02/23/25 05:55: POC Glucose 241 H Rhythm Strip Rhythm Strip: Sinus Tach Rate: 110 Ectopy: None Cardiology Labs/Tests 02/22/25 17:45: WBC 7.8, RBC 4.29, Hgb 13.3, Hct 38.3, MCV 89.3, MCH 31.0, MCHC 34.7, Plt Count 278, MPV 10.0, Immature Gran % (Auto) 0.400, Neut % (Auto) 48.8,Lymph % (Auto) 37.3, Lander % (Auto) 11.0H, Eos % (Auto) 1.7, Baso % (Auto) 0.8, Absolute Neuts (auto) 3.8, Nucleated RBC % 0, Sodium 139, Potassium 3.6, Chloride 103, Carbon Dioxide 24.0, Anion Gap 12, BUN 9, Creatinine 0.57 L, Est GFR (MDRD) Non-Af 104, BUN/Creatinine Ratio 15.5, Glucose 270 H, Calcium 9.3 02/23/25 04:29: WBC 8.5, RBC 4.12 L, Hgb 12.6, Hct 36.7 L, MCV 89.1, MCH 30.6, MCHC 34.3, Plt [id number], MPV 10.2, Immature Gran % (Auto) 0.200, Neut % (Auto) 52.6, Lymph % (Auto) 32.5, Lander % (Auto)12.7 H, Eos % (Auto) 1.3, Baso % (Auto)0.7, Absolute Neuts (auto) 4.5, Nucleated RBC % 0, PT 13.6, INR 1.0, Sodium 138,Potassium 3.5, Chloride 102, Carbon Dioxide 23.6, Anion Gap 13, BUN 12, Creatinine 0.66 L, Est GFR (MDRD) Non-Af 100, BUN/Creatinine Ratio 17.5, Glucose 253 H, Calcium 9.0, Phosphorus 3.0, Magnesium 1.9 Rhythm: EKG: ECHO: Stress Test: Cardiac Cath: PCI: CT Surgery: Holter monitor: EPS: PPM: CXR: Chest CT Scan: Radiography Diagnostic Testing: Radiology Impression Chest X-Ray 02/22/25 18:16 IMPRESSION: Bilateral coarse reticular airspace opacities, which may reflect interstitial fibrotic lung changes, interstitial edema, or possibly atypical/viral infection in the appropriate clinical context. Reading Location: [facility] Physical Exam Const no apparent distress Constitutional Narrative: Intermittent oriented. General Appearance: cooperative HEENT hearing grossly normal bilaterally Head and Scalp: atraumatic Eyes EOMs intact bilaterally Neck General: normal visual inspection Chest inspection of chest normal and palpation of chest normal Resp normal respiratory effort Auscultation: clear to auscultation bilaterally Cardio regular rate, regular rhythm, S1 normal heart sound and S2 normal heart sound Jugular Venous Distention: JVD GI normal to inspection, nondistended, normoactive bowel sounds Extremity normal capillary refill and no pedal edema Peripheral Pulses: Yes pulses 2+ throughout and femoral pulses present Skin no rashes or lesions noted Neuro oriented x3 and CN's II-XII intact bilaterally Psych Appearance: grossly normal and appropriate Assessment & Plan Assessment/Plan (1) Chest pain: PLAN: She presents with chest discomfort which has some atypical features but her cardiac enzymes are elevated. Patient cannot tolerate laying down flat and so it was determined that we should managethis medically. Will evaluate her with an echocardiogram and if ejection fraction is preserved withpursue aggressive medical therapy. This is especially in light of the fact that the chest pain has some significant atypical features. Perhaps at a later time she may be able to lay down flat for us to pursue an invasive therapy. The patient has been transferred to the intensive care unit for monitoring for few hours dueto her rather unusual behavior and response. (2) Elevated troponin: PLAN: She does have evidence of elevated troponin. (3) HTN (hypertension): QUALIFIERS: Hypertension type: essential hypertension Qualified Code(s): I10 - Essential (primary) hypertension PLAN: Her blood pressure appears to be elevated and I would recommend that we start her on an JANNIE inhibitor as she is a diabetic. An echocardiogram will be also performed to assess her ventricular function and depending on the findings further recommendations will be made. 02/23/25901 Cosigner Signature (if applicable): CC: ~ Signed [facility]08-05-2025 Consult note [facility] Medical Records Department [address] [place] [address] Consultation - Cardiology 02/23/25 0759 MR#: [id number] Acct: [id number] Name: LINA ISAAC Rep #:[id number] : 1965 59 From: Elver Montero MD PCP: Dr. Jese Zheng, DO Status:AD M IN Location: [place] [address] Assessment & Plan Assessment/Plan (1) Chest pain: PLAN: She presents with chest discomfort which has some atypical features but her cardiac enzymes are elevated significantly enough that I think that we need to likely pursue a left heart catheterization. The risk benefits alternatives of an explained to the patient she understands and agrees to proceed. (2) Elevated troponin: PLAN: She does have evidence of elevated troponin. Will need to evaluate the above with a cardiac catheterization. (3) HTN (hypertension): QUALIFIERS: Hypertension type: essential hypertension Qualified Code(s): I10 - Essential (primary) hypertension PLAN: Her blood pressure appears to be elevated and I would recommend that we start her on an JANNIE inhibitor as she is a diabetic. An echocardiogram will be also performed to assess her ventricular function and depending on the findings further recommendations will be made. HPI Consult Data Date of Consult: 02/23/25 HPI Narrative HPI Narrative: LINA ISAAC, is a 59 F who presents to the emergency room after she was sent there from her physician's office with a complaint of chest discomfort. She describes this as sharp location and a dulldoes not allow her to lie down and she has to sit up and has not been able to sleep well for a few days. She also says that she has been short of breath and has had a productive cough with some wheezing and she thought it was a pneumonia went to the primary physician's office but was sent to the emergency room. In the emergency room she was evaluated she was noted to be tachycardic with a decent blood pressure and cardiac enzymes were noted to be abnormal and cardiology was called for further evaluation and management. She does have a history of diabetes, but no history of hypertension or hyperlipidemia. [facility] Medical History Dyslipidemia Trigger ring finger of left hand Obesity Essential hypertension GERD (gastroesophageal reflux disease) Low HDL (under 40) Incisional hernia without obstruction or gangrene Unspecified hereditary and idiopathic peripheral neuropathy Type 2 diabetes mellitus with polyneuropathy Kidney stones Blood clot in vein Hx: UTI (urinary tract infection) Home Medications ?Medication ?Instructions ?Recorded ?Last Taken ?Type albuterol sulfate 90 mcg/actuation 2 puff inhalation Q 4H PRN PRN 04/08/14 04/08/14 02:30 History aerosol inhaler Wheezing calcium 315 mg (as 1 tab PO DAILY 04/08/1403/22 22:00 History citrate)-vitamin D3 6.25 mcg (250 2 ta b unit) tablet lisinopril 10 mg tablet 1 tab PO DAILY 04/07/1703/22 08:00 History 1 tab magnesium citrate 150 ml PO Q6H PRN PRN Consti pation 01/22/19 Unknown Rx #300 mL albuterol sulfate 2.5 mg/3 mL 2.5 mg inhalation Q4H IA N 05/11/19 Unknown History (0.083 %) solution for nebulization shortness of breat h or wheezing alcohol swabs (BD Alcohol Swabs) See Rx Instructions t opical 05/11/19 Unknown History .COMPLEX aspirin 81 mg tablet,delayed 81 mg PO DAILY 05/11/19 U nknown History release (Adult Low Dose Aspirin) atorvastatin 40 mg tablet 40 mg PO DAILY 05/11/19 Unkn own History blood sugar diagnostic (FreeStyle #10 ea 05/11/19 Unkn own History Lite Strips) blood-glucose meter (FreeStyle #1 ea 05/11/19 Unknown History Lite Meter kit) famotidine 20 mg tablet 20 mg PO BID 05/11/19 Unknow n History insulin degludec 100 unit/mL (3 112 unit subcut QHS Unknown History mL) subcutaneous pen (Tresiba FlexTouch U-100 insulin) lancets 30 gauge (Unilet Super #25 ea 05/11/19 Unknown History Thin Lancets) mupirocin 2 % topical ointment 1 applic topical BID Unknown History pen needle, diabetic 31 gauge x #30 ea 05/11/19 Unknow n History 3/16 (1st Tier Unifine Pentips) polyethylene glycol 3350 17 17 g PO BID 05/11/19 Unkno wn History gram/dose oral powder (Miralax) flash glucose sensor (FreeStyle #2 ea 02/26/20 Unknown Rx Michi 14 Day Sensor kit) insulin aspart U-100 100 unit/mL 20 unit (0.2 mL) subc ut TID #24 mL 04/05/20 Unknown Rx (3 mL) subcutaneous pen (Novolog FlexPen U-100 Insulin aspart) metformin 1,000 mg tablet 1,000 mg PO BID diabetes Unknown History cyanocobalamin (vitamin B-12) 2,000 mcg PO DAILY 02/22 Unknown History 1,000 mcg tablet,extended release dulaglutide 4.5 mg/0.5 mL 4.5 mg subcut QWEEK 02/22/25 Unknown History subcutaneous pen injector (Trulicity) empagliflozin 10 mg tablet 25 mg PO BREAKFAST 02/22/25 Unknown History (Jardiance) fluoxetine 20 mg capsule 20 mg PO DAILY 02/22/25 Unkn own History gabapentin 100 mg capsule 100 mg PO QHS 02/22/25 Unkno wn History Allergy/AdvReac Type Severity Reaction Status Date / Time tramadol Allergy Hives Verified 02/22/25 16:32 albuterol sulfate (From AdvReac Vomiting Verified 02/22/25 16:32 Proventil HFA) ammonium lactate (From AdvReac Other Verified 02/22/25 16:32 Lac-Hydrin) phentermine HCl (From AdvReac Chest Verified 02/22/25 16:32 Adipex-P) tightness Family History Uncle Cancer Sister Diabetes Social History Smoking Status: Current some day smoker tobacco type: cigarettes alcohol intake: never substance use type: does not use ROS Constitutional Constitutional: Denies fever(s) or weight loss Eyes Eyes: Reports systems reviewed and no addt'l complaints, except as documented ENT HEENT: Reports systems reviewed and no addt'l complaints, except as documented Cardiovascular Cardiovascular: Reports chest pain at rest and chest pain with activity; Denies dyspnea at rest, dyspnea on exertion, edema, palpitations or paroxysmal nocturnal dyspnea Respiratory/Chest Respiratory/Chest: Denies dyspnea on exertion, productive cough, shortness of breath at rest or shortness of breath with exertion Gastrointestinal Gastrointestinal: Denies change in bowel habits, nausea, vomiting or weight changes Genitourinary Genitourinary: Denies difficulty urinating Musculoskeletal Musculoskeletal: Denies joint stiffness or muscle weakness Integumentary Integumentary: Denies lesions Neurologic Neurologic: Denies dizziness or syncope Psychiatric Psychiatric: Denies anxiety Endocrine Endocrinology: Denies excessive sweating or fatigue Hematologic/Lymphatic Hematologic/Lymphatic: Denies anemia Allergic/Immunologic Allergic/Immunologic: Denies seasonal rhinorrhea Physical Exam Const alert, oriented x3 and no apparent distress General Appearance: cooperative HEENT hearing grossly normal bilaterally Head and Scalp: atraumatic Eyes EOMs intact bilaterally Neck General: normal visual inspection Chest inspection of chest normal and palpation of chest normal Resp normal respiratory effort Auscultation: clear to auscultation bilaterally Cardio regular rate, regular rhythm, S1 normal heart sound and S2 normal heart sound Jugular Venous Distention: JVD GI normal to inspection, nondistended, normoactive bowel sounds Extremity normal capillary refill and no pedal edema Peripheral Pulses: Yes pulses 2+ throughout and femoral pulses present Skin no rashes or lesions noted Neuro oriented x3 and CN's II-XII intact bilaterally Psych Appearance: grossly normal and appropriate Risk Stratification Risk Stratification Applicable: Yes Age >/= 65: No >/= 3 CAD Risk Factors (HTN, HLD, DM, family hx of CAD, or current smoker): No Aspirin Use in the Past 7 Days: No Severe Angina (>/= episodes in 24 hours): No EKG ST Changes >/= 0.5mm: No Positive Cardiac Marker: Yes CLIFF Risk Stratification Score: 1 CLIFF % Risk: 5% Risk Objective Data Vital Signs: Vital Signs Temp Pulse Resp BP Pulse Ox O2 Del Method O2 Flow Rate 97.8 F 103 H 20 H 135/91 H 95 Nasal Cannula 2 02/23/25 06:00 02/23/25 06:00 02/23/25 06:00 02/23/25 06:00 02/23/25 06:00 02/23/25 06:00 02/23/25 06:00 Oxygen Flow Rate (L/min) 2 Oxygen Delivery Method Nasal Cannula Weight: 208 lb 12.444 oz Body Mass Index (BMI) 31.7 Intake & Output: Intake and Output for Last 24 Hours 02/21/25 02/22/25 02/23/25 23:59 23:59 23:59 Intake Total 525 / 525 Balance 525 / 525 Lab / Micro Data 02/23/25 04:29 02/23/25 04:29 Labs: Laboratory Results - last 24 hr 02/22/25 17:45: WBC 7.8, RBC 4.29, Hgb 13.3, Hct 38.3, MCV 89.3, MCH 31.0, MCHC 34.7, RDW Std Deviation 39.5, RDW Coeff of Brett 12.2, Plt Count 278, MPV 10.0, Immature Gran % (Auto) 0.400, Neut % (Auto) 48.8, Lymph % (Auto) 37.3, Lander % (Auto) 11.0 H, Eos % (Auto) 1.7, Baso % (Auto) 0.8, Absolute Neuts (auto) 3.8, Absolute Lymphs (auto) 2.92, Nucleated RBC % 0, Sodium 139, Potassium 3.6, Chloride 103, Carbon Dioxide 24.0, Anion Gap 12, BUN 9, Creatinine 0.57 L, EstimCreat Clear Calc 127.95, Est GFR (MDRD) Non-Af 104, BUN/Creatinine Ratio 15.5, Glucose 270 H, Calcium 9.3, Troponin T High Sens 181 H*, NT pro BNP II 3685 H 02/22/25 19:24: Troponin T Hi Sens 2 Hr 160 H* 02/22/25 22:17: Troponin T Hi Sens 4Hr 164 H* 02/23/25 00:13: POC Glucose 373 H 02/23/25 04:29: WBC 8.5, RBC 4.12 L, Hgb 12.6, Hct 36.7 L, MCV 89.1, MCH 30.6, MCHC 34.3, RDW Std Deviation 39.6, RDW Coeff of Brett 12.3, Plt Count 269, MPV 10.2, Immature Gran % (Auto) 0.200, Neut % (Auto) 52.6, Lymph % (Auto) 32.5, Lander % (Auto) 12.7 H, Eos % (Auto) 1.3, Baso % (Auto) 0.7, Absolute Neuts (auto) 4.5, Absolute Lymphs (auto) 2.76, Nucleated RBC % 0, PT 13.6, INR 1.0, Sodium 138, Potassium 3.5, Chloride 102, Carbon Dioxide 23.6, Anion Gap 13, BUN 12, Creatinine 0.66 L, Estim CreatClear Calc 109.07, Est GFR (MDRD) Non-Af 100, BUN/Creatinine Ratio 17.5, Glucose 253 H, Calcium 9.0, Phosphorus 3.0, Magnesium1.9 02/23/25 05:55: POC Glucose 241 H Rhythm Strip Rhythm Strip: Sinus Tach Rate: 110 Ectopy: None Cardiology Labs/Tests 02/22/25 17:45: WBC 7.8, RBC 4.29, Hgb 13.3, Hct 38.3, MCV 89.3, MCH 31.0, MCHC 34.7, Plt Count 278, MPV 10.0, Immature Gran % (Auto) 0.400, Neut % (Auto) 48.8,Lymph % (Auto) 37.3, Lander % (Auto) 11.0H, Eos % (Auto) 1.7, Baso % (Auto) 0.8, Absolute Neuts (auto) 3.8, Nucleated RBC % 0, Sodium 139, Potassium 3.6, Chloride 103, Carbon Dioxide 24.0, Anion Gap 12, BUN 9, Creatinine 0.57 L, Est GFR (MDRD) Non-Af 104, BUN/Creatinine Ratio 15.5, Glucose 270 H, Calcium 9.3 02/23/25 04:29: WBC 8.5, RBC 4.12 L, Hgb 12.6, Hct 36.7 L, MCV 89.1, MCH 30.6, MCHC 34.3, Plt [id number], MPV 10.2, Immature Gran % (Auto) 0.200, Neut % (Auto) 52.6, Lymph % (Auto) 32.5, Lander % (Auto)12.7 H, Eos % (Auto) 1.3, Baso % (Auto)0.7, Absolute Neuts (auto) 4.5, Nucleated RBC % 0, PT 13.6, INR 1.0, Sodium 138,Potassium 3.5, Chloride 102, Carbon Dioxide 23.6, Anion Gap 13, BUN 12, Creatinine 0.66 L, Est GFR (MDRD) Non-Af 100, BUN/Creatinine Ratio 17.5, Glucose 253 H, Calcium 9.0, Phosphorus 3.0, Magnesium 1.9 Rhythm: EKG: ECHO: Stress Test: Cardiac Cath: PCI: CT Surgery: Holter monitor: EPS: PPM: CXR: Chest CT Scan: Radiography Diagnostic Testing: Radiology Impression Chest X-Ray 02/22/25 18:16 IMPRESSION: Bilateral coarse reticular airspace opacities, which may reflect interstitial fibrotic lung changes, interstitial edema, or possibly atypical/viral infection in the appropriate clinical context. Reading Location: [facility] 02/23/25 0805 Cosigner Signature (if applicable): CC: Dr. Jese Zheng, DO~ Signed [facility]08-04-2025 Evaluation note* Diagnosis Onset Date Resolution Status Admit Date Acute CHF acute February 22 8:21pm Acute cough acute February 22, 2 025 8:21pm Altered mental state acute Augu st 2024 8:21pm Chest pain acute February 22 8:21pm Elevated troponin acute February 22, 2025 8:21pm Flank pain acute February 22 8:21pm Hypoxemia acute February 22 8:21pm Hypoxia acute February 22 8:21pm HTN (hypertension) chronic February 22, 2025 8:21pm [facility] Work Phone: 1(421) 452-315008-04-2025 History and physical note Author Denton Cook [facility] Note Date/Time February 22, 2025 8:2 1pm [facility] Medical Records Department [address] [place] [address] History & Physical Exam 02/22/252008 MR#: [id number] Acct: [id number] Name: LINA ISAAC Rep #:[id number] : 1965 59 From: Denton Cook MD PCP: Dr. Jese Zheng, DO Status:RE G ER Location: ED HPI - General General Date of Admission: 02/22/25 Date of Service: 02/22/25 Chief Complaint: Chest pain HPI Narrative LINA ISAAC, is a 59 F who presents to the emergency department with a chief complaint of chest pain. Onset of symptoms began 1 week ago but it progressed and became worse associated with shortness of breath and cough. Patient states the pain gets worse after laying down or after eating as well. Patient has significant past medical history of diabetes and is a chronic smoker but denies strong family history of coronary artery disease. Pain is described as 7/10 midsternal nonradiating chest pain that was alleviated the emergency room by nitroglycerin. Initially she was thought to have a GI symptoms and was given a GI cocktail that she actually vomited in the emergency department. Chest x-ray reveals possible pneumonia and she is requiring oxygen to maintain her saturation greater than 90%. Antibiotics for community-acquired pneumonia were initiated in the emergency room. Troponin was also elevated 181 and her BN TP was elevated at 3685. She will be admitted to the progressive care unit and will obtain a cardiology consult for possible heart catheterization and echocardiogram will be ordered as well. [facility] Medical History (Updated 02/22/25 @ 20:[address] John Catherine MD) Dyslipidemia Trigger ring finger of left hand Obesity Essential hypertension GERD (gastroesophageal reflux disease) Low HDL (under 40) Incisional hernia without obstruction or gangrene Unspecified hereditary and idiopathic peripheral neuropathy Type 2 diabetes mellitus with polyneuropathy Kidney stones Blood clot in vein Hx: UTI (urinary tract infection) Home Medications ?Medication ?Instructions ?Recorded ?Last Taken ?Type albuterol sulfate 90 mcg/actuation 2 puff inhalation Q 4H PRN PRN 04/08/14 04/08/14 02:30 History aerosol inhaler Wheezing calcium 315 mg (as 1 tab PO DAILY 04/08/1403/22 22:00 History citrate)-vitamin D3 6.25 mcg (250 2 ta b unit) tablet lisinopril 10 mg tablet 1 tab PO DAILY 04/07/1703/22 08:00 History 1 tab magnesium citrate 150 ml PO Q6H PRN PRN Consti pation 01/22/19 Unknown Rx #300 mL albuterol sulfate 2.5 mg/3 mL 2.5 mg inhalation Q4H IA N 05/11/19 Unknown History (0.083 %) solution for nebulization shortness of breat h or wheezing alcohol swabs (BD Alcohol Swabs) See Rx Instructions t opical 05/11/19 Unknown History .COMPLEX aspirin 81 mg tablet,delayed 81 mg PO DAILY 05/11/19 U nknown History release (Adult Low Dose Aspirin) atorvastatin 40 mg tablet 40 mg PO DAILY 05/11/19 Unkn own History blood sugar diagnostic (FreeStyle #10 ea 05/11/19 Unkn own History Lite Strips) blood-glucose meter (FreeStyle #1 ea 05/11/19 Unknown History Lite Meter kit) clotrimazole-betamethasone 1 1 applic topical BID 04/22 08/09 Unknown History %-0.05 % topical cream (Lotrisone) famotidine 20 mg tablet 20 mg PO BID 05/11/19 Unknow n History glucose 4 gram chewable tablet 16 g PO Q15M PRN Unknown History insulin degludec 100 unit/mL (3 112 unit subcut QHS Unknown History mL) subcutaneous pen (Tresiba FlexTouch U-100 insulin) lancets 30 gauge (Unilet Super #25 ea 05/11/19 Unknown History Thin Lancets) mupirocin 2 % topical ointment 1 applic topical BID Unknown History pen needle, diabetic 31 gauge x #30 ea 05/11/19 Unknow n History 10/04 (1st Tier Unifine Pentips) polyethylene glycol 3350 17 17 g PO BID 05/11/19 Unkno wn History gram/dose oral powder (Miralax) flash glucose sensor (FreeStyle #2 ea 02/26/20 Unknown Rx Michi 14 Day Sensor kit) insulin aspart U-100 100 unit/mL 20 unit (0.2 mL) subc ut TID #24 mL 04/05/20 Unknown Rx (3 mL) subcutaneous pen (Novolog FlexPen U-100 Insulin aspart) metformin 1,000 mg tablet 1,000 mg PO DAILY 02/06/21 U nknown History cyanocobalamin (vitamin B-12) 2,000 mcg PO DAILY 02/22 Unknown History 1,000 mcg tablet,extended release dulaglutide 4.5 mg/0.5 mL 4.5 mg subcut QWEEK 02/22/25 Unknown History subcutaneous pen injector (Trulicity) empagliflozin 10 mg tablet 25 mg PO BREAKFAST 02/22/25 Unknown History (Jardiance) fluoxetine 20 mg capsule 20 mg PO DAILY 02/22/25 Unkn own History gabapentin 100 mg capsule 100 mg PO QHS 02/22/25 Unkno wn History levalbuterol tartrate 45 2 inh inhalation Q4H PRN lui rtness 02/22/25 Unknown History mcg/actuation aerosol inhaler of breath or wheezing (Xopenex HFA) Allergy/AdvReac Type Severity Reaction Status Date / Time tramadol Allergy Hives Verified 02/22/25 16:32 albuterol sulfate (From AdvReac Vomiting Verified 02/22/25 16:32 Proventil HFA) ammonium lactate (From AdvReac Other Verified 02/22/25 16:32 Lac-Hydrin) phentermine HCl (From AdvReac Chest Verified 02/22/25 16:32 Adipex-P) tightness Family History Uncle Cancer Sister Diabetes Social History Smoking Status: Never smoker alcohol intake: never substance use type: does not use ROS Constitutional Constitutional: Denies chills or fever(s) Eyes Eyes: Denies change in vision ENT HEENT: Denies abnormal hearing Cardiovascular Cardiovascular: Reports chest pain; Denies edema Respiratory/Chest Respiratory/Chest: Reports cough and shortness of breath with exertion; Denies wheezing Gastrointestinal Gastrointestinal: Reports abdominal pain, nausea and vomiting Genitourinary Genitourinary: Denies dysuria Musculoskeletal Musculoskeletal: Reports back pain Integumentary Integumentary: Denies dry skin Neurologic Neurologic: Denies confusion or dizziness Psychiatric Psychiatric: Denies anxiety Vital Signs Vital Signs Vital Signs: 02/22/25 16:31 02/22/25 17:54 02/22/25 18:07 Temperature 98.3 F Temperature Source Oral Pulse Rate 106 H 113 H Respiratory Rate 19 H 18 Blood Pressure 146/98 H Blood Pressure Mean 114 Pulse Ox 96 94 Oxygen Delivery Method Room Air Room Air Oxygen Flow Rate (L/min) 02/22/25 18:07 02/22/25 19:03 02/22/25 19:56 Temperature Temperature Source Pulse Rate 120 H 120 H 116 H Respiratory Rate 19 H 18 22 H Blood Pressure 129/87 H 132/93 H Blood Pressure Mean 101 106 Pulse Ox 94 95 87 Oxygen Delivery Method Room Air Room Air Room Air Oxygen Flow Rate (L/min) 02/22/25 19:56 Temperature Temperature Source Pulse Rate Respiratory Rate Blood Pressure Blood Pressure Mean Pulse Ox 93 Oxygen Delivery Method Nasal Cannula Oxygen Flow Rate (L/min) 2 Weight Weight: 214 lb 4.629 oz Body Mass Index (BMI) 32.4 Physical Exam Const alert and oriented x3 General Appearance: cooperative and well developed HEENT normocephalic Eyes PERRL Neck no lymphadenopathy Lymph Lymphatic: no lymphadenopathy noted Resp normal respiratory effort, normal air movement and clear to auscultation bilaterally Cardio regular rhythm, S1 normal heart sound, S2 normal heart sound, no murmurs, no ruband no gallops Rate: tachycardic GI normal to inspection, nondistended, normoactive bowel sounds and non-tender Extremity normal capillary refill Skin General Skin Exam: turgor normal Neuro no focal motor deficits and no sensory deficits noted Psych thought process normal, cooperative and affect normal Results Lab / Micro Data 02/22/25 17:45 02/22/25 17:45 Labs: Laboratory Results - last 24 hr 02/22/25 17:45: WBC 7.8, RBC 4.29, Hgb 13.3, Hct 38.3, MCV 89.3, MCH 31.0, MCHC 34.7, RDW Std Deviation 39.5, RDW Coeff of Brett 12.2, Plt Count 278, MPV 10.0, Immature Gran % (Auto) 0.400, Neut % (Auto) 48.8, Lymph % (Auto) 37.3, Lander % (Auto) 11.0 H, Eos % (Auto) 1.7, Baso % (Auto) 0.8, Absolute Neuts (auto) 3.8, Absolute Lymphs (auto) 2.92, Nucleated RBC % 0, Sodium 139, Potassium 3.6, Chloride 103, Carbon Dioxide 24.0, Anion Gap 12, BUN 9, Creatinine 0.57 L, EstimCreat Clear Calc 127.95, Est GFR (MDRD) Non-Af 104, BUN/Creatinine Ratio 15.5, Glucose 270 H, Calcium 9.3, Troponin T High Sens 181 H*, NT pro BNP II 3685 H 02/22/25 19:24: Troponin T Hi Sens 2 Hr 160 H* Rhythm Strip Rhythm Strip: Sinus Tach Rate: 110 Ectopy: None Imaging Radiology Impression Chest X-Ray 02/22/25 18:16 IMPRESSION: Bilateral coarse reticular airspace opacities, which may reflect interstitial fibrotic lung changes, interstitial edema, or possibly atypical/viral infection in the appropriate clinical context. Reading Location: [facility] Assessment & Plan Assessment/Plan (1) Chest pain: (2) Hypoxemia: (3) Elevated troponin: (4) Acute CHF: (5) Acute cough: PLAN: Plan 1 acute cough, hypoxemia?community-acquired pneumonia suspected based on preliminary chest x-ray evaluation by emergency room physician?will continue Rocephin and azithromycin initiated in the emergency room, and oxygen per routine protocol to maintain saturation greater than 90%. Due to concurrent NSTEMI and congestive heart failure we will hold albuterol at this time 2. NSTEMI?consult risk investigator Dr Montero. Continue to cycle cardiac enzymes, will add oxygen, nitroglycerin as needed for pain and aspirin. Pain seems to berelatively controlled at this time. Will make patient n.p.o. at midnight 3. Congestive heart failure?will get echocardiogram 4. Diabetes?will add sliding scale insulin and will adjust accordingly 5. Smoking?cessation strongly encouraged 6. DVT prophylaxis?low molecular weight heparin Charges/Coding Visit Charges Inpatient E&M: 62933 Init Hosp L2 02/22/252020 <Electronically signed by Denton Cook MD> Cosigner Signature (if applicable): CC: Dr. Jese Zheng, DO; Dr. Denton Cook MD~ Signed [facility] Work Phone: 1(132) 472-802708-04-2025 Discharge summary Author John Catherine [facility] Note Date/Time February 22, 2025 8:0 9pm [facility] Medical Records Department [address] [place] [id number] Emergency Department Summary 02/22/25 MR#: [id number] Acct: [id number] Name: LINA ISAAC Rep #:[id number] : 1965 59 From: John Catherine MD PCP: Dr. Jese Zheng, DO Status:RE G ER Location: ED HPI History of Present Illness Chief Complaint: Chest Pain Informant: patient and EMS Narrative Narrative: 59-year-old female was sent from the PCPs office at [facility] due to the patient having intermittent chest pain for 1 week that she states occurs after meals andif she lies down it feels heavy, resolving if she sits up. She states she has been getting epigastric discomfort with this as well after meals, this occurs 20minutes after eating most meals. She determined that she can eat chicken noodlesoup without getting the chest discomfort. She states separate from this, she feels like she has a productive cough and some wheezing for also about the past week that she feels like may be pneumonia which is why she went to the doctor today hoping to get a chest x-ray. She denies any fevers or chills. She does have a history of asthma, she has albuterol inhaler at home and she has been using it, having some temporary relief of wheezing after using it. She has somechronic leg swelling that is similar right now. No history of heart problems but she was sent here because they thought I was having a heart attack. [facility] Medical History (Updated 02/22/25 @ 20:[address] John Catherine MD) Dyslipidemia Trigger ring finger of left hand Obesity Essential hypertension GERD (gastroesophageal reflux disease) Low HDL (under 40) Incisional hernia without obstruction or gangrene Unspecified hereditary and idiopathic peripheral neuropathy Type 2 diabetes mellitus with polyneuropathy Kidney stones Blood clot in vein Hx: UTI (urinary tract infection) Home Medications ?Medication ?Instructions ?Recorded ?Last Taken ?Type albuterol sulfate 90 mcg/actuation 2 puff inhalation Q 4H PRN PRN 04/08/14 04/08/14 02:30 History aerosol inhaler Wheezing calcium 315 mg (as 1 tab PO DAILY 04/08/1403/22 22:00 History citrate)-vitamin D3 6.25 mcg (250 2 ta b unit) tablet lisinopril 10 mg tablet 1 tab PO DAILY 04/07/1703/22 08:00 History 1 tab magnesium citrate 150 ml PO Q6H PRN PRN Consti pation 01/22/19 Unknown Rx #300 mL albuterol sulfate 2.5 mg/3 mL 2.5 mg inhalation Q4H IA N 05/11/19 Unknown History (0.083 %) solution for nebulization shortness of breat h or wheezing alcohol swabs (BD Alcohol Swabs) See Rx Instructions t opical 05/11/19 Unknown History .COMPLEX aspirin 81 mg tablet,delayed 81 mg PO DAILY 05/11/19 U nknown History release (Adult Low Dose Aspirin) atorvastatin 40 mg tablet 40 mg PO DAILY 05/11/19 Unkn own History blood sugar diagnostic (FreeStyle #10 ea 05/11/19 Unkn own History Lite Strips) blood-glucose meter (FreeStyle #1 ea 05/11/19 Unknown History Lite Meter kit) clotrimazole-betamethasone 1 1 applic topical BID 04/22 08/09 Unknown History %-0.05 % topical cream (Lotrisone) famotidine 20 mg tablet 20 mg PO BID 05/11/19 Unknow n History glucose 4 gram chewable tablet 16 g PO Q15M PRN Unknown History insulin degludec 100 unit/mL (3 112 unit subcut QHS Unknown History mL) subcutaneous pen (Tresiba FlexTouch U-100 insulin) lancets 30 gauge (Unilet Super #25 ea 05/11/19 Unknown History Thin Lancets) mupirocin 2 % topical ointment 1 applic topical BID Unknown History pen needle, diabetic 31 gauge x #30 ea 05/11/19 Unknow n History 3 (1st Tier Unifine Pentips) polyethylene glycol 3350 17 17 g PO BID 05/11/19 Unkno wn History gram/dose oral powder (Miralax) flash glucose sensor (FreeStyle #2 ea 02/26/20 Unknown Rx Michi 14 Day Sensor kit) insulin aspart U-100 100 unit/mL 20 unit (0.2 mL) subc ut TID #24 mL 04/05/20 Unknown Rx (3 mL) subcutaneous pen (Novolog FlexPen U-100 Insulin aspart) metformin 1,000 mg tablet 1,000 mg PO DAILY 02/06/21 U nknown History cyanocobalamin (vitamin B-12) 2,000 mcg PO DAILY 02/22 Unknown History 1,000 mcg tablet,extended release dulaglutide 4.5 mg/0.5 mL 4.5 mg subcut QWEEK 02/22/25 Unknown History subcutaneous pen injector (Trulicity) empagliflozin 10 mg tablet 25 mg PO BREAKFAST 02/22/25 Unknown History (Jardiance) fluoxetine 20 mg capsule 20 mg PO DAILY 02/22/25 Unkn own History gabapentin 100 mg capsule 100 mg PO QHS 02/22/25 Unkno wn History levalbuterol tartrate 45 2 inh inhalation Q4H PRN lui rtness 02/22/25 Unknown History mcg/actuation aerosol inhaler of breath or wheezing (Xopenex HFA) Allergy/AdvReac Type Severity Reaction Status Date / Time tramadol Allergy Hives Verified 02/22/25 16:32 albuterol sulfate (From AdvReac Vomiting Verified 02/22/25 16:32 Proventil HFA) ammonium lactate (From AdvReac Other Verified 02/22/25 16:32 Lac-Hydrin) phentermine HCl (From AdvReac Chest Verified 02/22/25 16:32 Adipex-P) tightness Family History Uncle Cancer Sister Diabetes Social History Smoking Status: Never smoker alcohol intake: never substance use type: does not use ROS ROS ED Constitutional Constitutional ED: Denies chills or fever(s) Eyes Eyes: Denies change in vision or diplopia ENT ENT ED: Denies rhinorrhea or sore throat Cardiovascular Cardiovascular: Reports as per HPI, chest pain and leg edema; Denies orthopnea, palpitations or paroxysmal nocturnal dyspnea Respiratory/Chest Respiratory/Chest: Reports cough, dyspnea and sputum; Denies orthopnea or paroxysmal nocturnal dyspnea Gastrointestinal Gastrointestinal: Reports abdominal pain; Denies diarrhea, nausea or vomiting Genitourinary Genitourinary ED: Denies dysuria or hematuria Musculoskeletal Musculoskeletal: Denies back pain or neck pain Integumentary Denies abscess or rash Neurologic Neurologic: Denies headache(s), paresthesias or weakness Psychiatric Psychiatric: Denies anxiety or suicidal thoughts EXAM Physical Exam Const Vital Signs: 02/22/25 16:31 02/22/25 17:54 02/22/25 18:07 Temperature 98.3 F Temperature Source Oral Pulse Rate 106 H 113 H Respiratory Rate 19 H 18 Blood Pressure 146/98 H Blood Pressure Mean 114 Pulse Ox 96 94 Oxygen Delivery Method Room Air Room Air Oxygen Flow Rate (L/min) 02/22/25 18:07 02/22/25 19:03 02/22/25 19:56 Temperature Temperature Source Pulse Rate 120 H 120 H 116 H Respiratory Rate 19 H 18 22 H Blood Pressure 129/87 H 132/93 H Blood Pressure Mean 101 106 Pulse Ox 94 95 87 Oxygen Delivery Method Room Air Room Air Room Air Oxygen Flow Rate (L/min) 02/22/25 19:56 Temperature Temperature Source Pulse Rate Respiratory Rate Blood Pressure Blood Pressure Mean Pulse Ox 93 Oxygen Delivery Method Nasal Cannula Oxygen Flow Rate (L/min) 2 Positive well nourished and well developed General Appearance ED: well developed and NAD HEENT Reports moist mucous membranes normocephalic and atraumatic Eyes PERRL and EOMs intact bilaterally Neck full ROM and supple Chest Wall inspection of chest normal Chest Narrative: mild diffuse chest wall tenderness Chest: tenderness Resp normal respiratory effort and clear to auscultation bilaterally Cardio regular rate, regular rhythm and no murmurs GI non-distended GI Narrative: Epigastric tenderness without pulsatile mass, guarding, rebound tenderness. Auscultation: normoactive bowel sounds Palpation: soft Back/Spine no CVA tenderness General Back: other FROM Extremity normal to inspection General Extremety ED: Yes edema; Negative for pulses abnormal or tenderness General Extremity: edema bilateral lower extremity Details: mild; Negative for pulses abnormal Neuro oriented x3, CN's II-XII intact bilaterally and no sensory deficits noted Sensorium / Orientation: awake and alert Motor Exam: strength 5/5 throughout Psych mental status grossly normal Skin no rashes or lesions noted and no wounds Heart Score History: Slightly/Non-Suspicious ECG: Nonspecific Repolarization Age: >45 - <65 years Risk Factors: >/= 3 Risk Factors or History of CAD Troponin: >/=3 x Normal Limit Score: 6 MDM MDM MDM Narrative Medical decision making narrative: Patient was given a GI cocktail for what sounds more like noncardiac discomfort,as well as Zofran and an albuterol treatment, however she vomited up the GI cocktail and as a result had to abort the majority of the albuterol treatment. While I was observing her, her oxygen saturations went down to 87% on room air while resting, so we placed 2 L nasal cannula on her. 2 view chest x-ray my interpretation shows bilateral lower lobe infiltrates, radiology in agreement. This could be CHF, could be infectious, she has symptoms compatible with pneumonia but also possibly CHF, and her renal function is normal but elevated troponins, trending down, as well as elevated proBNP. She does not have a significant leukocytosis to suggest this is all infectious although I am covering her anyway with Rocephin and Zithromax. Discussed with hospitalist, mystonoicion is that this is a type II MO as opposed to a primary vascular problem,but with that being said she is high risk with obesity, hypertension, type 2 diabetes that apparently is uncontrolled, and she is a heavy smoker. Giving parag dose of Lasix. As I expect that we will help with the x-ray findings and her tachycardia and hypoxemia. History & Record Review Additional record(s) reviewed:: Prior labs (prior echo 2018) Lab Data Attestation: I reviewed the patient's lab results. Labs: Laboratory Results - last 24 hr 02/22/25 02/22/25 17:45 19:24 WBC 7.8 RBC 4.29 Hgb 13.3 Hct 38.3 MCV 89.3 MCH 31.0 MCHC 34.7 RDW Std Deviation 39.5 RDW Coeff of Brett 12.2 Plt Count 278 MPV 10.0 Immature Gran % (Auto) 0.400 Neut % (Auto) 48.8 Lymph % (Auto) 37.3 Lander % (Auto) 11.0 H Eos % (Auto) 1.7 Baso % (Auto) 0.8 Absolute Neuts (auto) 3.8 Absolute Lymphs (auto) 2.92 Nucleated RBC % 0 Sodium 139 Potassium 3.6 Chloride 103 Carbon Dioxide 24.0 Anion Gap 12 BUN 9 Creatinine 0.57 L Estim Creat Clear Calc 127.95 Est GFR (MDRD) Non-Af 104 BUN/Creatinine Ratio 15.5 Glucose 270 H Calcium 9.3 Troponin T High Sens 181 H* Troponin T Hi Sens 2 Hr 160 H* NT pro BNP II 3685 H Radiography Diagnostic Testing: Clinical Impression(s) from Imaging Studies Chest X-Ray 02/22/25 18:16 IMPRESSION: Bilateral coarse reticular airspace opacities, which may reflect interstitial fibrotic lung changes, interstitial edema, or possibly atypical/viral infection in the appropriate clinical context. Reading Location: [facility] Rhythm Strip Rhythm Strip: Sinus Tach Rate: 110 Ectopy: None EKG Initial EKG: Attestation: I personally reviewed and interpreted this EKG as follows: Interpretation: No Acute Injury Pattern and Sinus Tachycardia Comments: Voltage consistent with LVH. Nonspecific ST-T wave abnormalities lateral and inferior limb leads. Q waves 3, aVF new compared withprior in 2019 Prior EKG tracings: available for review Prior: Changed Management Discussion w/another healthcare provider: Hospitalist Treatment and Re-Evaluation Comments:: Aspirin x 4 given prior to arrival Discharge Plan Triage Chief Complaint: Chest Pain ED Provider: John Catherine Dx/Rx/DC Orders Clinical Impression: Acute CHF, Elevated troponin, Hypoxemia, Acute cough, Chest pain Prescriptions: No Action albuterol sulfate 2.5 mg /3 mL (0.083 %) solution for nebulization 2.5 mg INHALATION Q4H PRN alcohol swabs [BD Alcohol Swabs] Pads, Medicated See Rx Instructions TOPICAL .COMPLEX Rx Instructions: TOPICAL use 4-5 x qd to check BG and with insulin injections; aspirin [Adult Low Dose Aspirin] 81 mg tablet,delayed release (DR/EC) 81 mg PO DAILY atorvastatin 40 mg tablet 40 mg PO DAILY (DME) FreeStyle Lite Strips Strip See Rx Instructions .ROUTE .MEDSUPPLY Qty: 10 Rx Instructions: use to check BG tid (DME) blood-glucose meter [FreeStyle Lite Meter] Kit See Rx Instructions .ROUTE .MEDSUPPLY Qty: 1 Rx Instructions: As directed clotrimazole-betamethasone [Lotrisone] 1-0.05 % cream 1 applic TOPICAL BID (DME) pen needle, diabetic [1st Tier Unifine Pentips] 31 gauge x /16 needle See Rx Instructions .ROUTE .MEDSUPPLY Qty: 30 Rx Instructions: use 4 x qd to inject insulin famotidine 20 mg tablet 20 mg PO BID glucose 4 gram tablet,chewable 16 g PO Q15M PRN Tresiba FlexTouch U-100 100 unit/mL (3 mL) insulin pen 70 unit SC QHS mupirocin 2 % ointment 1 applic TOPICAL BID polyethylene glycol 3350 [Miralax] 17 gram/dose powder 17 g PO BID (DME) lancets [Unilet Super Thin Lancets] 30 gauge misc See Rx Instructions .ROUTE .MEDSUPPLY Qty: 25 Rx Instructions: use to check BG 1 x qd urea 40 % cream 1 applic TOPICAL BID (DME) FreeStyle Michi 14 Day Sensor Kit See Rx Instructions .ROUTE .MEDSUPPLY Qty: 2 6RF Rx Instructions: As directed metformin 1,000 mg tablet 1,000 mg PO DAILY albuterol sulfate 1 INHALER inhaler 2 puff inhalation Q4H PRN PRN (Reason: Wheezing) Patient Comments: ASTHMA calcium citrate-vitamin D3 1 EACH tablet 2 tab PO BID Patient Comments: SUPPLEMENT lisinopril 10 MG tablet 1 tab PO DAILY Patient Comments: TAKE 1 TABLET EVERY DAY promethazine 25 MG tablet 25 mg PO Q6H PRN PRN (Reason: Nausea) Qty: 10 0RF magnesium citrate 300 ML solution 150 ml PO Q6H PRN PRN (Reason: Constipation) Qty: 300 0RF ondansetron 4 mg tablet,disintegrating 4 mg PO Q8H PRN PRN (Reason: Nausea) Qty: 14 0RF Novolog FlexPen U-100 Insulin 100 unit/mL (3 mL) insulin pen 20 unit SC TID MDD 80 Qty: 24 4RF Rx Instructions: plus sliding scale Primary Care Provider: Jese Zheng Referrals: Jese Zheng DO [Primary Care Provider] - Print Language: Omani Disposition Disposition: Acute Care Hospital [facility] What to do if you have Problems For any increased pain, shortness of breath, bleeding, nausea or vomiting, chestpain, or any unexpected problems, contact your Primary Care Provider. Call [facility] ([phone]) or report to the closest Emergency Room. Call 911 if necessary. 02/22/252008 <Electronically signed by John Catherine MD> Cosigner Signature (if applicable): CC: Dr. Jese Zheng DO ~ Signed [facility] Work Phone: [phone] 238-709208-04-2025 History and physical note [facility] Medical Records Department [address] [place] [id number] History & Physical Exam 02/22/252008 MR#: [id number] Acct: [id number] Name: LINA ISAAC Rep #:[id number] : 1965 59 From: Denton Cook MD PCP: Dr. Jese Zheng, DO Status:RE G ER Location: ED HPI - General General Date of Admission: 02/22/25 Date of Service: 02/22/25 Chief Complaint: Chest pain HPI Narrative LINA ISAAC, is a 59 F who presents to the emergency department with a chief complaint of chest pain. Onset of symptoms began 1 week ago but it progressed and became worse associated with shortness of breath and cough. Patient states the pain gets worse after laying down or after eating as well.Patient has significant past medical history of diabetes and is a chronic smoker but denies strong family history of coronary artery disease. Pain is described as 7/10 midsternal nonradiating chest pain that was alleviated the emergency room by nitroglycerin. Initially she was thought to have a GI symptoms and was given a GI cocktail that she actually vomited in the emergency department. Chest x-ray reveals possible pneumonia and she is requiring oxygen to maintain her saturation greater than 90%. Antibiotics for community-acquired pneumonia were initiated in the emergency room. Troponin was also elevated 181 and her BN TP was elevated at 3685. She will be admitted to the progressive care unit and will obtain a cardiology consult for possible heart catheterization and echocardiogram will be ordered as well. [facility] Medical History (Updated 02/22/25 @ 20:[address] John Catherine MD) Dyslipidemia Trigger ring finger of left hand Obesity Essential hypertension GERD (gastroesophageal reflux disease) Low HDL (under 40) Incisional hernia without obstruction or gangrene Unspecified hereditary and idiopathic peripheral neuropathy Type 2 diabetes mellitus with polyneuropathy Kidney stones Blood clot in vein Hx: UTI (urinary tract infection) Home Medications ?Medication ?Instructions ?Recorded ?Last Taken ?Type albuterol sulfate 90 mcg/actuation 2 puff inhalation Q 4H PRN PRN 04/08/14 04/08/14 02:30 History aerosol inhaler Wheezing calcium 315 mg (as 1 tab PO DAILY 04/08/1403/22 22:00 History citrate)-vitamin D3 6.25 mcg (250 2 ta b unit) tablet lisinopril 10 mg tablet 1 tab PO DAILY 04/07/1703/22 08:00 History 1 tab magnesium citrate 150 ml PO Q6H PRN PRN Consti pation 01/22/19 Unknown Rx #300 mL albuterol sulfate 2.5 mg/3 mL 2.5 mg inhalation Q4H IA N 05/11/19 Unknown History (0.083 %) solution for nebulization shortness of breat h or wheezing alcohol swabs (BD Alcohol Swabs) See Rx Instructions t opical 05/11/19 Unknown History .COMPLEX aspirin 81 mg tablet,delayed 81 mg PO DAILY 05/11/19 U nknown History release (Adult Low Dose Aspirin) atorvastatin 40 mg tablet 40 mg PO DAILY 05/11/19 Unkn own History blood sugar diagnostic (FreeStyle #10 ea 05/11/19 Unkn own History Lite Strips) blood-glucose meter (FreeStyle #1 ea 05/11/19 Unknown History Lite Meter kit) clotrimazole-betamethasone 1 1 applic topical BID 04/22 08/09 Unknown History %-0.05 % topical cream (Lotrisone) famotidine 20 mg tablet 20 mg PO BID 05/11/19 Unknow n History glucose 4 gram chewable tablet 16 g PO Q15M PRN Unknown History insulin degludec 100 unit/mL (3 112 unit subcut QHS Unknown History mL) subcutaneous pen (Tresiba FlexTouch U-100 insulin) lancets 30 gauge (Unilet Super #25 ea 05/11/19 Unknown History Thin Lancets) mupirocin 2 % topical ointment 1 applic topical BID Unknown History pen needle, diabetic 31 gauge x #30 ea 05/11/19 Unknow n History 3/16 (1st Tier Unifine Pentips) polyethylene glycol 3350 17 17 g PO BID 05/11/19 Unkno wn History gram/dose oral powder (Miralax) flash glucose sensor (FreeStyle #2 ea 02/26/20 Unknown Rx Michi 14 Day Sensor kit) insulin aspart U-100 100 unit/mL 20 unit (0.2 mL) subc ut TID #24 mL 04/05/20 Unknown Rx (3 mL) subcutaneous pen (Novolog FlexPen U-100 Insulin aspart) metformin 1,000 mg tablet 1,000 mg PO DAILY 02/06/21 U nknown History cyanocobalamin (vitamin B-12) 2,000 mcg PO DAILY 02/22 Unknown History 1,000 mcg tablet,extended release dulaglutide 4.5 mg/0.5 mL 4.5 mg subcut QWEEK 02/22/25 Unknown History subcutaneous pen injector (Trulicity) empagliflozin 10 mg tablet 25 mg PO BREAKFAST 02/22/25 Unknown History (Jardiance) fluoxetine 20 mg capsule 20 mg PO DAILY 02/22/25 Unkn own History gabapentin 100 mg capsule 100 mg PO QHS 02/22/25 Unkno wn History levalbuterol tartrate 45 2 inh inhalation Q4H PRN lui rtness 02/22/25 Unknown History mcg/actuation aerosol inhaler of breath or wheezing (Xopenex HFA) Allergy/AdvReac Type Severity Reaction Status Date / Time tramadol Allergy Hives Verified 02/22/25 16:32 albuterol sulfate (From AdvReac Vomiting Verified 02/22/25 16:32 Proventil HFA) ammonium lactate (From AdvReac Other Verified 02/22/25 16:32 Lac-Hydrin) phentermine HCl (From AdvReac Chest Verified 02/22/25 16:32 Adipex-P) tightness Family History Uncle Cancer Sister Diabetes Social History Smoking Status: Never smoker alcohol intake: never substance use type: does not use ROS Constitutional Constitutional: Denies chills or fever(s) Eyes Eyes: Denies change in vision ENT HEENT: Denies abnormal hearing Cardiovascular Cardiovascular: Reports chest pain; Denies edema Respiratory/Chest Respiratory/Chest: Reports cough and shortness of breath with exertion; Denies wheezing Gastrointestinal Gastrointestinal: Reports abdominal pain, nausea and vomiting Genitourinary Genitourinary: Denies dysuria Musculoskeletal Musculoskeletal: Reports back pain Integumentary Integumentary: Denies dry skin Neurologic Neurologic: Denies confusion or dizziness Psychiatric Psychiatric: Denies anxiety Vital Signs Vital Signs Vital Signs: 02/22/25 16:31 02/22/25 17:54 02/22/25 18:07 Temperature 98.3 F Temperature Source Oral Pulse Rate 106 H 113 H Respiratory Rate 19 H 18 Blood Pressure 146/98 H Blood Pressure Mean 114 Pulse Ox 96 94 Oxygen Delivery Method Room Air Room Air Oxygen Flow Rate (L/min) 02/22/25 18:07 02/22/25 19:03 02/22/25 19:56 Temperature Temperature Source Pulse Rate 120 H 120 H 116 H Respiratory Rate 19 H 18 22 H Blood Pressure 129/87 H 132/93 H Blood Pressure Mean 101 106 Pulse Ox 94 95 87 Oxygen Delivery Method Room Air Room Air Room Air Oxygen Flow Rate (L/min) 02/22/25 19:56 Temperature Temperature Source Pulse Rate Respiratory Rate Blood Pressure Blood Pressure Mean Pulse Ox 93 Oxygen Delivery Method Nasal Cannula Oxygen Flow Rate (L/min) 2 Weight Weight: 214 lb 4.629 oz Body Mass Index (BMI) 32.4 Physical Exam Const alert and oriented x3 General Appearance: cooperative and well developed HEENT normocephalic Eyes PERRL Neck no lymphadenopathy Lymph Lymphatic: no lymphadenopathy noted Resp normal respiratory effort, normal air movement and clear to auscultation bilaterally Cardio regular rhythm, S1 normal heart sound, S2 normal heart sound, no murmurs, no ruband no gallops Rate: tachycardic GI normal to inspection, nondistended, normoactive bowel sounds and non-tender Extremity normal capillary refill Skin General Skin Exam: turgor normal Neuro no focal motor deficits and no sensory deficits noted Psych thought process normal, cooperative and affect normal Results Lab / Micro Data 02/22/25 17:45 02/22/25 17:45 Labs: Laboratory Results - last 24 hr 02/22/25 17:45: WBC 7.8, RBC 4.29, Hgb 13.3, Hct 38.3, MCV 89.3, MCH 31.0, MCHC 34.7, RDW Std Deviation 39.5, RDW Coeff of Brett 12.2, Plt Count 278, MPV 10.0, Immature Gran % (Auto) 0.400, Neut % (Auto) 48.8, Lymph % (Auto) 37.3, Lander % (Auto) 11.0 H, Eos % (Auto) 1.7, Baso % (Auto) 0.8, Absolute Neuts (auto) 3.8, Absolute Lymphs (auto) 2.92, Nucleated RBC % 0, Sodium 139, Potassium 3.6, Chloride 103, Carbon Dioxide 24.0, Anion Gap 12, BUN 9, Creatinine 0.57 L, EstimCreat Clear Calc 127.95, Est GFR (MDRD) Non-Af 104, BUN/Creatinine Ratio 15.5, Glucose 270 H, Calcium 9.3, Troponin T High Sens 181 H*, NT pro BNP II 3685 H 02/22/25 19:24: Troponin T Hi Sens 2 Hr 160 H* Rhythm Strip Rhythm Strip: Sinus Tach Rate: 110 Ectopy: None Imaging Radiology Impression Chest X-Ray 02/22/25 18:16 IMPRESSION: Bilateral coarse reticular airspace opacities, which may reflect interstitial fibrotic lung changes, interstitial edema, or possibly atypical/viral infection in the appropriate clinical context. Reading Location: [facility] Assessment & Plan Assessment/Plan (1) Chest pain: (2) Hypoxemia: (3) Elevated troponin: (4) Acute CHF: (5) Acute cough: PLAN: Plan 1 acute cough, hypoxemia?community-acquired pneumonia suspected based on preliminary chest x-ray evaluation by emergency room physician?will continue Rocephin and azithromycin initiated in the emergency room, and oxygen per routine protocol to maintain saturation greater than 90%. Due to concurrent NSTEMI and congestive heart failure we will hold albuterol at this time 2. NSTEMI?consult risk investigator Dr Montero. Continue to cycle cardiac enzymes, will add oxygen, nitroglycerin as needed for pain and aspirin. Pain seems to berelatively controlled at this time. Will make patient n.p.o. at midnight 3. Congestive heart failure?will get echocardiogram 4. Diabetes?will add sliding scale insulin and will adjust accordingly 5. Smoking?cessation strongly encouraged 6. DVT prophylaxis?low molecular weight heparin Charges/Coding Visit Charges Inpatient E&M: 45980 Init Hosp L2 02/22/252020 Cosigner Signature (if applicable): CC: Dr. Jese Zheng DO; Dr. Denton Cook MD~ Signed [facility]08-04-2025 Discharge summary [facility] Medical Records Department [address] [place] [address] Emergency Department Summary 02/22/25 MR#: [id number] Acct: [id number] Name: LINA ISAAC Rep #:[id number] : 1965 59 From: John Catherine MD PCP: Dr. Jese Zheng, DO Status:RE G ER Location: ED HPI History of Present Illness Chief Complaint: Chest Pain Informant: patient and EMS Narrative Narrative: 59-year-old female was sent from the PCPs office at [facility] due to the patient having intermittent chest pain for 1 week that she states occurs after meals andif she lies down it feels heavy, resolving if she sits up. She states she has been getting epigastric discomfort with this as well after meals, this occurs 20minutes after eating most meals. She determined that she can eat chicken noodlesoup without getting the chest discomfort. She states separate from this, she feels like she has a productive cough and some wheezing for also about the past week that she feels like may be pneumonia which is why she went to the doctor today hoping to get a chest x-ray. She denies any fevers or chills. She does have a history of asthma, she has albuterol inhaler at home and she has been using it, having some temporary relief of wheezing after using it. She has somechronic leg swelling that is similar right now. No history of heart problems but she was sent here because they thought I was having a heart attack. [facility] Medical History (Updated 02/22/25 @ 20:[address] John Catherine MD) Dyslipidemia Trigger ring finger of left hand Obesity Essential hypertension GERD (gastroesophageal reflux disease) Low HDL (under 40) Incisional hernia without obstruction or gangrene Unspecified hereditary and idiopathic peripheral neuropathy Type 2 diabetes mellitus with polyneuropathy Kidney stones Blood clot in vein Hx: UTI (urinary tract infection) Home Medications ?Medication ?Instructions ?Recorded ?Last Taken ?Type albuterol sulfate 90 mcg/actuation 2 puff inhalation Q 4H PRN PRN 04/08/14 04/08/14 02:30 History aerosol inhaler Wheezing calcium 315 mg (as 1 tab PO DAILY 04/08/1403/22 22:00 History citrate)-vitamin D3 6.25 mcg (250 2 ta b unit) tablet lisinopril 10 mg tablet 1 tab PO DAILY 04/07/1703/22 08:00 History 1 tab magnesium citrate 150 ml PO Q6H PRN PRN Consti pation 01/22/19 Unknown Rx #300 mL albuterol sulfate 2.5 mg/3 mL 2.5 mg inhalation Q4H IA N 05/11/19 Unknown History (0.083 %) solution for nebulization shortness of breat h or wheezing alcohol swabs (BD Alcohol Swabs) See Rx Instructions t opical 05/11/19 Unknown History .COMPLEX aspirin 81 mg tablet,delayed 81 mg PO DAILY 05/11/19 U nknown History release (Adult Low Dose Aspirin) atorvastatin 40 mg tablet 40 mg PO DAILY 05/11/19 Unkn own History blood sugar diagnostic (FreeStyle #10 ea 05/11/19 Unkn own History Lite Strips) blood-glucose meter (FreeStyle #1 ea 05/11/19 Unknown History Lite Meter kit) clotrimazole-betamethasone 1 1 applic topical BID 04/22 08/09 Unknown History %-0.05 % topical cream (Lotrisone) famotidine 20 mg tablet 20 mg PO BID 05/11/19 Unknow n History glucose 4 gram chewable tablet 16 g PO Q15M PRN Unknown History insulin degludec 100 unit/mL (3 112 unit subcut QHS Unknown History mL) subcutaneous pen (Tresiba FlexTouch U-100 insulin) lancets 30 gauge (Unilet Super #25 ea 05/11/19 Unknown History Thin Lancets) mupirocin 2 % topical ointment 1 applic topical BID Unknown History pen needle, diabetic 31 gauge x #30 ea 05/11/19 Unknow n History 3/16 (1st Tier Unifine Pentips) polyethylene glycol 3350 17 17 g PO BID 05/11/19 Unkno wn History gram/dose oral powder (Miralax) flash glucose sensor (FreeStyle #2 ea 02/26/20 Unknown Rx Michi 14 Day Sensor kit) insulin aspart U-100 100 unit/mL 20 unit (0.2 mL) subc ut TID #24 mL 04/05/20 Unknown Rx (3 mL) subcutaneous pen (Novolog FlexPen U-100 Insulin aspart) metformin 1,000 mg tablet 1,000 mg PO DAILY 02/06/21 U nknown History cyanocobalamin (vitamin B-12) 2,000 mcg PO DAILY 02/22 Unknown History 1,000 mcg tablet,extended release dulaglutide 4.5 mg/0.5 mL 4.5 mg subcut QWEEK 02/22/25 Unknown History subcutaneous pen injector (Trulicity) empagliflozin 10 mg tablet 25 mg PO BREAKFAST 02/22/25 Unknown History (Jardiance) fluoxetine 20 mg capsule 20 mg PO DAILY 02/22/25 Unkn own History gabapentin 100 mg capsule 100 mg PO QHS 02/22/25 Unkno wn History levalbuterol tartrate 45 2 inh inhalation Q4H PRN lui rtness 02/22/25 Unknown History mcg/actuation aerosol inhaler of breath or wheezing (Xopenex HFA) Allergy/AdvReac Type Severity Reaction Status Date / Time tramadol Allergy Hives Verified 02/22/25 16:32 albuterol sulfate (From AdvReac Vomiting Verified 02/22/25 16:32 Proventil HFA) ammonium lactate (From AdvReac Other Verified 02/22/25 16:32 Lac-Hydrin) phentermine HCl (From AdvReac Chest Verified 02/22/25 16:32 Adipex-P) tightness Family History Uncle Cancer Sister Diabetes Social History Smoking Status: Never smoker alcohol intake: never substance use type: does not use ROS ROS ED Constitutional Constitutional ED: Denies chills or fever(s) Eyes Eyes: Denies change in vision or diplopia ENT ENT ED: Denies rhinorrhea or sore throat Cardiovascular Cardiovascular: Reports as per HPI, chest pain and leg edema; Denies orthopnea, palpitations or paroxysmal nocturnal dyspnea Respiratory/Chest Respiratory/Chest: Reports cough, dyspnea and sputum; Denies orthopnea or paroxysmal nocturnal dyspnea Gastrointestinal Gastrointestinal: Reports abdominal pain; Denies diarrhea, nausea or vomiting Genitourinary Genitourinary ED: Denies dysuria or hematuria Musculoskeletal Musculoskeletal: Denies back pain or neck pain Integumentary Denies abscess or rash Neurologic Neurologic: Denies headache(s), paresthesias or weakness Psychiatric Psychiatric: Denies anxiety or suicidal thoughts EXAM Physical Exam Const Vital Signs: 02/22/25 16:31 02/22/25 17:54 02/22/25 18:07 Temperature 98.3 F Temperature Source Oral Pulse Rate 106 H 113 H Respiratory Rate 19 H 18 Blood Pressure 146/98 H Blood Pressure Mean 114 Pulse Ox 96 94 Oxygen Delivery Method Room Air Room Air Oxygen Flow Rate (L/min) 02/22/25 18:07 02/22/25 19:03 02/22/25 19:56 Temperature Temperature Source Pulse Rate 120 H 120 H 116 H Respiratory Rate 19 H 18 22 H Blood Pressure 129/87 H 132/93 H Blood Pressure Mean 101 106 Pulse Ox 94 95 87 Oxygen Delivery Method Room Air Room Air Room Air Oxygen Flow Rate (L/min) 02/22/25 19:56 Temperature Temperature Source Pulse Rate Respiratory Rate Blood Pressure Blood Pressure Mean Pulse Ox 93 Oxygen Delivery Method Nasal Cannula Oxygen Flow Rate (L/min) 2 Positive well nourished and well developed General Appearance ED: well developed and NAD HEENT Reports moist mucous membranes normocephalic and atraumatic Eyes PERRL and EOMs intact bilaterally Neck full ROM and supple Chest Wall inspection of chest normal Chest Narrative: mild diffuse chest wall tenderness Chest: tenderness Resp normal respiratory effort and clear to auscultation bilaterally Cardio regular rate, regular rhythm and no murmurs GI non-distended GI Narrative: Epigastric tenderness without pulsatile mass, guarding, rebound tenderness. Auscultation: normoactive bowel sounds Palpation: soft Back/Spine no CVA tenderness General Back: other FROM Extremity normal to inspection General Extremety ED: Yes edema; Negative for pulses abnormal or tenderness General Extremity: edema bilateral lower extremity Details: mild; Negative for pulses abnormal Neuro oriented x3, CN's II-XII intact bilaterally and no sensory deficits noted Sensorium / Orientation: awake and alert Motor Exam: strength 5/5 throughout Psych mental status grossly normal Skin no rashes or lesions noted and no wounds Heart Score History: Slightly/Non-Suspicious ECG: Nonspecific Repolarization Age: >45 - <65 years Risk Factors: >/= 3 Risk Factors or History of CAD Troponin: >/=3 x Normal Limit Score: 6 MDM MDM MDM Narrative Medical decision making narrative: Patient was given a GI cocktail for what sounds more like noncardiac discomfort,as well as Zofran and an albuterol treatment, however she vomited up the GI cocktail and as a result had to abort the majority of the albuterol treatment. While I was observing her, her oxygen saturations went down to 87% on room air while resting, so we placed 2 L nasal cannula on her. 2 view chest x- ray my interpretation shows bilateral lower lobe infiltrates, radiology in agreement. This could be CHF, could be infectious, she has symptoms compatible with pneumonia but also possibly CHF, and her renal function is normal but elevated troponins, trending down, as well as elevated proBNP. She does not have a significant leukocytosis to suggest this is all infectious although I am covering her anyway with Rocephin and Zithromax. Discussed with hospitalist, mysuspicion is that this is a type II MO as opposed toa primary vascular problem,but with that being said she is high risk with obesity, hypertension, type 2 diabetes that apparently is uncontrolled, and she is a heavy smoker. Giving parag dose of Lasix.As I expect that we will help with the x-ray findings and her tachycardia and hypoxemia. History & Record Review Additional record(s) reviewed:: Prior labs (prior echo 2018) Lab Data Attestation: I reviewed the patient's lab results. Labs: Laboratory Results - last 24 hr 02/22/25 02/22/25 17:45 19:24 WBC 7.8 RBC 4.29 Hgb 13.3 Hct 38.3 MCV 89.3 MCH 31.0 MCHC 34.7 RDW Std Deviation 39.5 RDW Coeff of Brett 12.2 Plt Count 278 MPV 10.0 Immature Gran % (Auto) 0.400 Neut % (Auto) 48.8 Lymph % (Auto) 37.3 Lander % (Auto) 11.0 H Eos % (Auto) 1.7 Baso % (Auto) 0.8 Absolute Neuts (auto) 3.8 Absolute Lymphs (auto) 2.92 Nucleated RBC % 0 Sodium 139 Potassium 3.6 Chloride 103 Carbon Dioxide 24.0 Anion Gap 12 BUN 9 Creatinine 0.57 L Estim Creat Clear Calc 127.95 Est GFR (MDRD) Non-Af 104 BUN/Creatinine Ratio 15.5 Glucose 270 H Calcium 9.3 Troponin T High Sens 181 H* Troponin T Hi Sens 2 Hr 160 H* NT pro BNP II 3685 H Radiography Diagnostic Testing: Clinical Impression(s) from Imaging Studies Chest X-Ray 02/22/25 18:16 IMPRESSION: Bilateral coarse reticular airspace opacities, which may reflect interstitial fibrotic lung changes, interstitial edema, or possibly atypical/viral infection in the appropriate clinical context. Reading Location: [facility] Rhythm Strip Rhythm Strip: Sinus Tach Rate: 110 Ectopy: None EKG Initial EKG: Attestation: I personally reviewed and interpreted this EKG as follows: Interpretation: No Acute Injury Pattern and Sinus Tachycardia Comments: Voltage consistent with LVH. Nonspecific ST-T wave abnormalities lateral and inferior limb leads. Q waves 3, aVF new compared withprior in 2019 Prior EKG tracings: available for review Prior: Changed Management Discussion w/another healthcare provider: Hospitalist Treatment and Re-Evaluation Comments:: Aspirin x 4 given prior to arrival Discharge Plan Triage Chief Complaint: Chest Pain ED Provider: John Catherine Dx/Rx/DC Orders Clinical Impression: Acute CHF, Elevated troponin, Hypoxemia, Acute cough, Chest pain Prescriptions: No Action albuterol sulfate 2.5 mg /3 mL (0.083 %) solution for nebulization 2.5 mg INHALATION Q4H PRN alcohol swabs [BD Alcohol Swabs] Pads, Medicated See Rx Instructions TOPICAL .COMPLEX Rx Instructions: TOPICAL use 4-5 x qd to check BG and with insulin injections; aspirin [Adult Low Dose Aspirin] 81 mg tablet,delayed release (DR/EC) 81 mg PO DAILY atorvastatin 40 mg tablet 40 mg PO DAILY (DME) FreeStyle Lite Strips Strip See Rx Instructions .ROUTE .MEDSUPPLY Qty: 10 Rx Instructions: use to check BG tid (DME) blood-glucose meter [FreeStyle Lite Meter] Kit See Rx Instructions .ROUTE .MEDSUPPLY Qty: 1 Rx Instructions: As directed clotrimazole-betamethasone [Lotrisone] 1-0.05 % cream 1 applic TOPICAL BID (DME) pen needle, diabetic [1st Tier Unifine Pentips] 31 gauge x 3/16 needle See Rx Instructions .ROUTE .MEDSUPPLY Qty: 30 Rx Instructions: use 4 x qd to inject insulin famotidine 20 mg tablet 20 mg PO BID glucose 4 gram tablet,chewable 16 g PO Q15M PRN Tresiba FlexTouch U-100 100 unit/mL (3 mL) insulin pen 70 unit SC QHS mupirocin 2 % ointment 1 applic TOPICAL BID polyethylene glycol 3350 [Miralax] 17 gram/dose powder 17 g PO BID (DME) lancets [Unilet Super Thin Lancets] 30 gauge misc See Rx Instructions .ROUTE .MEDSUPPLY Qty: 25 Rx Instructions: use to check BG 1 x qd urea 40 % cream 1 applic TOPICAL BID (DME) FreeStyle Michi 14 Day Sensor Kit See Rx Instructions .ROUTE .MEDSUPPLY Qty: 2 6RF Rx Instructions: As directed metformin 1,000 mg tablet 1,000 mg PO DAILY albuterol sulfate 1 INHALER inhaler 2 puff inhalation Q4H PRN PRN (Reason: Wheezing) Patient Comments: ASTHMA calcium citrate-vitamin D3 1 EACH tablet 2 tab PO BID Patient Comments: SUPPLEMENT lisinopril 10 MG tablet 1 tab PO DAILY Patient Comments: TAKE 1 TABLET EVERY DAY promethazine 25 MG tablet 25 mg PO Q6H PRN PRN (Reason: Nausea) Qty: 10 0RF magnesium citrate 300 ML solution 150 ml PO Q6H PRN PRN (Reason: Constipation) Qty: 300 0RF ondansetron 4 mg tablet,disintegrating 4 mg PO Q8H PRN PRN (Reason: Nausea) Qty: 14 0RF Novolog FlexPen U-100 Insulin 100 unit/mL (3 mL) insulin pen 20 unit SC TID MDD 80 Qty: 24 4RF Rx Instructions: plus sliding scale Primary Care Provider: Jese Zheng Referrals: Jese Zheng DO [Primary Care Provider] - Print Language: Omani Disposition Disposition: Acute Care Hospital [facility] What to do if you have Problems For any increased pain, shortness of breath, bleeding, nausea or vomiting, chestpain, or any unexpected problems, contact your Primary Care Provider. Call [facility] ([phone]) or report tothe closest Emergency Room. Call 911 if necessary. 02/22/252008 Cosigner Signature (if applicable): CC: Dr. Jese Zheng DO ~ Signed [facility]08-04-2025 [facility] Medical Records Department [address] [place] [id number] History Physical Exam 02/22/252008 MR#: [id number] Acct: [id number] Name: LINA ISAAC Rep #: [id number] : 1965 59 From: Denton Cook MD PCP: Dr. Jese Zheng, DO Status:REG ER Location: ED HPI - General General Date of Admission: 02/22/25 Date of Service: 02/22/25 Chief Complaint: Chest pain HPI Narrative LINA ISAAC, is a 59 F who presents to the emergency department with a chief complaint of chest pain. Onset of symptoms began 1 week ago but it progressed and became worse associated with shortness of breath and cough. Patient states the pain gets worse after laying down or after eating as well. Patient has significant past medical history of diabetes and is a chronic smoker but denies strong family history of coronary artery disease. Pain is described as 7/10 mid sternal nonradiating chest pain that was alleviated the emergency room by nitroglycerin. Initially she was thought to have a GI symptoms and was given a GI cocktail that she actually vomited in the emergency department. Chest x-ray reveals possible pneumonia and she is requiring oxygen to maintain her saturation greater than 90%. Antibiotics for community-acquired pneumonia were initiated in the emergency room. Troponin was also elevated 181 and her BN TP was elevated at 3685. She will be admitted to the progressive care unit and will obtain a cardiology consult for possible heart catheterization and echocardiogram will be ordered as well. [facility] Medical History (Updated 02/22/25 @ 20:[address] John Catherine MD) Dyslipidemia Trigger ring finger of left hand Obesity Essential hypertension GERD (gastroesophageal reflux disease) Low HDL (under 40) Incisional hernia without obstruction or gangrene Unspecified hereditary and idiopathic peripheral neuropathy Type 2 diabetes mellitus with polyneuropathy Kidney stones Blood clot in vein Hx: UTI (urinary tract infection) Home Medications ???Medication ???Instructions ???Recorded ???Last Taken ???Type albuterol sulfate 90 mcg/actuation 2 puff inhalation Q4H PRN PRN 04/08/14 02:30 History aerosol inhaler Wheezing calcium 315 mg (as 1 tab PO DAILY 04/08/14 04/05/17 2 2:00 History citrate)-vitamin D3 6.25 mcg (250 2 tab unit) tablet lisinopril 10 mg tablet 1 tab PO DAILY 04/07/17 04/05/17 0 8:00 History 1 tab magnesium citrate 150 ml PO Q6H PRN PRN Constipation 01/22/19 Unknown Rx #300 mL albuterol sulfate 2.5 mg/3 mL 2.5 mg inhalation Q4H PRN 05/11/19 Unknown History (0.083 %) solution for nebulization shortness of breath or wheezing alcohol swabs (BD Alcohol Swabs) See Rx Instructions topical Unknown History .COMPLEX aspirin 81 mg tablet,delayed 81 mg PO DAILY 05/11/19 Unknown Hi story release (Adult Low Dose Aspirin) atorvastatin 40 mg tablet 40 mg PO DAILY 05/11/19 Unknown Hi story blood sugar diagnostic (FreeStyle #10 ea 05/11/19 Unknown History Lite Strips) blood-glucose meter (FreeStyle #1 ea 05/11/19 Unknown History Lite Meter kit) clotrimazole-betamethasone 1 1 applic topical BID 05/11/19 Unkn own History %-0.05 % topical cream (Lotrisone) famotidine 20 mg tablet 20 mg PO BID 05/11/19 Unknown Hist ory glucose 4 gram chewable tablet 16 g PO Q15M PRN 05/11/19 Unknown History insulin degludec 100 unit/mL (3 112 unit subcut QHS 05/11/19 Unkno wn History mL) subcutaneous pen (Tresiba FlexTouch U-100 insulin) lancets 30 gauge (Unilet Super #25 ea 05/11/19 Unknown History Thin Lancets) mupirocin 2 % topical ointment 1 applic topical BID 05/11/19 Unkn own History pen needle, diabetic 31 gauge x #30 ea 05/11/19 Unknown History 3/16 (1st Tier Unifine Pentips) polyethylene glycol 3350 17 17 g PO BID 05/11/19 Unknown Histo ry gram/dose oral powder (Miralax) flash glucose sensor (FreeStyle #2 ea 02/26/20 Unknown Rx Michi 14 Day Sensor kit) insulin aspart U-100 100 unit/mL 20 unit (0.2 mL) subcut TID #24 mL 04/05/20 Unknown Rx (3 mL) subcutaneous pen (Novolog FlexPen U-100 Insulin aspart) metformin 1,000 mg tablet 1,000 mg PO DAILY 02/06/21 Unknown History cyanocobalamin (vitamin B-12) 2,000 mcg PO DAILY 02/22/25 Unknow n History 1,000 mcg tablet,extended release dulaglutide 4.5 mg/0.5 mL 4.5 mg subcut QWEEK 02/22/25 Unkno wn History subcutaneous pen injector (Trulicity) empagliflozin 10 mg tablet 25 mg PO BREAKFAST 02/22/25 Unknow n History (Jardiance) fluoxetine 20 mg capsule 20 mg PO DAILY 02/22/25 Unknown Hi story gabapentin 100 mg capsule 100 mg PO QHS 02/22/25 Unknown His tory levalbuterol tartrate 45 2 inh inhalation Q4H PRN shortness 02/22/25 Unknown History mcg/actuation aerosol inhaler of breath or wheezi (more content not included)... [facility]08-04-2025 Radiology Diagnostic study note [facility] Imaging Services [address], [place] [id number] Chest PA and Lateral MR#: [id number] Acct: [id number] Name: LINA ISAAC Rep #: [id number] : 1965 F 59 From: Jd Marinelli MD PCP: Dr. Jese Zheng, Status: RE G ER Study:Chest PA and Lateral Date of Exam: 02/22/25 Exam# [id number] Ordering Dr: Jacki Catherine MD PROCEDURE: CHEST PA AND LATERAL 02/22/2025 REASON FOR EXAM: CHEST PAIN, PROD COUGH, SOB TECHNIQUE: CHEST PA AND LATERAL COMPARISON: 04/06/2021 FINDINGS: Lungs/Pleura: Coarse reticular airspace opacities in the bilateral mid to lower lung zones may represent interstitial/fibrotic lung disease, versus interstitial pulmonary edema, or possibly atypical/viral infection. No perihilar edema. No pneumothorax or pleural effusions. Heart/Mediastinum: Within normal limits. Calcification of the aortic arch. Bones/Soft tissues: Mild degenerative changes of the spine. Trace calcific tendinosis of bilateral shoulder rotator cuffs.. RAD/Chest PA and Lateral IMPRESSION: Bilateral coarse reticular airspace opacities, which may reflect interstitial fibrotic lung changes, interstitial edema, or possibly atypical/viral infection in the appropriate clinical context. Reading Location: [id number] CC: Dr. John Catherine MD; Dr. Jese Zheng, DO ~ Fur Trimmer: Signed [facility]08-04-2025 NoteHNO ID: [id number] Author: SELIN GARCIA APRN.PROFESSOR OF PHYSICS Service: ? Author Type: Nurse Sane Type: Progress Notes Filed: 02/22/2025 17:21 Note Text: [facility], [facility] and [facility] Emergency Response Form. NOT TO BE USED AT [facility] Complete this report when the Emergency Medical Response is activated (911 calls/EmergencyTransport to the ED) or when a Code Sheet is utilized in the care of a patient (i.e., ASC) Date of the Event: today (Must provide Value) Time of the Event:3:57 pm (Must provide Value) Was emergency response activated? (Local EMS/Emergency Department) YES (Must provide Value) Location of the Incident: [facility] ([facility]) (Must provide Value) Reason/Chief Complaint for Emergency Call (Check all that apply): Chest Pain/Pressure and Respiratory Arrest/Difficulty Breathing (Must provide Value) CPR Initiated-Chest Compressions and/or Rescue Breathing Provided: NO (Must provide value) Facility AED Used-Automatic External Defibrillator: NO (Must provide value) EMS AED Used-Automatic External Defibrillator: NO (Must provide value) Prior to EMS arrival, was any treatment administered? NO Describe treatment none Patient Disposition: Transferred to Hospital ED: [facility] (Must provide value) [employer] Chief Clerk information: Name of Provider- Juany Allen (Must provide value)[facility]08-04-2025 History of Present illness Narrative* Juany Allen MA - 02/22/2025 5:01 PM EDT [facility], [facility] and [facility] Emergency Response Form. NOT TO BE USED AT [facility] Complete this report when the Emergency Medical Response is activated (911 calls/EmergencyTransportto the ED) or when a Code Sheet is utilized in the care of a patient (i.e., ASC) Date of the Event: today (Must provide Value) Time of the Event:3:57 pm (Must provide Value) Was emergency response activated? (Local EMS/Emergency Department) YES (Must provide Value) Location of the Incident: [facility] ([facility]) (Must provide Value) Reason/Chief Complaint for Emergency Call (Check all that apply): Chest Pain/Pressure and Respiratory Arrest/Difficulty Breathing (Must provide Value) CPR Initiated-Chest Compressions and/or Rescue Breathing Provided: NO (Must provide value) Facility AED Used-Automatic External Defibrillator: NO (Must provide value) EMS AED Used-Automatic External Defibrillator: NO (Must provide value) Prior to EMS arrival, was any treatment administered? NO Describe treatment none Patient Disposition: Transferred to Hospital ED: [facility] (Must provide value) [employer] Chief Clerk information: Name of Provider- Juany Allen (Must provide value) * Selin Garcia APRN.CNP - 02/22/2025 3:27 PM EDT This is a 59 year old female who presents today with: Patient presents with: Cough Wheezing Shortness of Breath HISTORY OF PRESENT ILLNESS: Lina Isaac is a 59 year old female. Patient presents with: Cough Wheezing Shortness of Breath Can't eat for 2 days- chest hurts too bad- mid-sternal Started feeling poorly 1 week ago. Thought maybe pneumonia again. Can't lay down d/t breathing for last 2 days Dyspnea on exertion for a week- could barely get to office d/t dyspnea Chest pain- mid-sternal, epigastric, rubs sternum when talking about chest hurting. Also left lateral chest. Denies arm, jaw, neck or back pain. Some palpitations. Pain in right shoulder PAST MEDICAL HISTORY: PAST MEDICAL HISTORY Diagnosis Date Asthma (HCC) Bowel perforation 11/05/2012 C. difficile colitis 04/2016 Closed nondisplaced fracture of proximal phalanx of lesser toe of left foot with routine healing 10/07/2019 COVID-19 03/30/2021 Diabetes mellitus type 2 in obese 10/2013 A1C 6.8% Dyslipidemia 01/02/2019 Essential hypertension 08/11/2015 GERD (gastroesophageal reflux disease) Incisional hernia 06/26/2013 Injury to rectosigmoid colon 10/17/2012 Low HDL (under 40) 10/2013 Nephrolithiasis Osteoarthrosis, unspecified whether generalized or localized, other specified sites Osteoarthritis Bilateral knees Spasm of muscle Tobacco use disorder quit 2012 Unspecified hereditary and idiopathic peripheral neuropathy 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 Ramirez COLONOSCOPY 09/17/2022 repeat in 10 years EGD 09/17/2022 HERNIA REPAIR HX 06/22/2013 HYSTERECTOMY HX 2011 fistula with intestine HYSTEROSCOPY, DIAGNOSTIC (SEPARATE Hysteroscopy/Novasure LAP HYSTERECTOMY FOR UTERUS 250G OR LESS 10/09/2012 with vaginal sling, LSO, right salpingectomy LAPS ABD PRTM&OMENTUM DX W/WO SPEC BR/WA SPX Laparoscopy LAPS REPAIR HERNIA EXCEPT INCAL/INGUN REDUCIBLE 05/2017 LIG/TRNSXJ FLP TUBE ABDL/VAG APPR UNI/BI 2001 Tubal ligation PAST SURGICAL HISTORY OF 01/30/2005 Left shoulder arthroscopy and debridement PAST SURGICAL HISTORY OF 02/2004 3rd toe left foot PAST SURGICAL HISTORY OF 03/14/2010 right total knee replacement PAST SURGICAL HISTORY OF 03/14/2009 left total knee replacement PAST SURGICAL HISTORY OF 01/23/2013 Ileostomy closure. PAST SURGICAL HISTORY OF Left 01/06/2016 left ring trigger release RPR 1ST INCAL/VNT HERNIA INCARCERATED 06/22/2013 at ileostomy site - 11x[address] \mesh RPR RECRT INCAL/VNT HERNIA INCARCERATED 07/23/2014 at midline' RPR RECRT INCAL/VNT HERNIA INCARCERATED 10/11/2014 - recurrent small bowel resection, enterotomy ALLERGIES Omnicef [Cefdinir], Proventil [Albuterol Sulfate], and Tramadol MEDICATIONS Current Outpatient Medications Medication Sig empagliflozin (JARDIANCE) 25 mg tablet Take 1 tablet by mouth daily with breakfast. ibuprofen (MOTRIN) 800 mg tablet TAKE 1 TABLET BY MOUTH EVERY 8 HOURS NEEDED FOR PAIN WITH FOOD lisinopril (ZESTRIL) 10 mg tablet Take 1 tablet by mouth once daily. dulaglutide (TRULICITY) 4.5 mg/0.5 mL pen injector Inject 4.5 mg subcutaneously one time a week. albuterol HFA (VENTOLIN HFA) 90 mcg/actuation inhaler Inhale 2 puffs as instructed every 4 hours asneeded. For wheezing/shortness of breath. insulin degludec (TRESIBA FLEXTOUCH U-200) 200 unit/mL (3 mL) injection Inject 112 Units subcutaneously daily at bedtime. insulin aspart U-100 (NOVOLOG U-100 INSULIN ASPART) 100 unit/mL Inject 20 units subcutaneously as directed plus sliding scale with meals. (Max 96 units/day) levalbuterol tartrate HFA (XOPENEX HFA) 45 mcg/actuation inhaler Inhale 1-2 Puffs as instructed every 4 hours as needed for wheezing/shortness of breath. atorvastatin (LIPITOR) 40 mg tablet Take 1 tablet by mouth once daily. ergocalciferol 50,000 unit capsule (VITAMIN D2, DRISDOL) Take 1 capsule by mouth one time a week. mupirocin (BACTROBAN) 2 % ointment Apply to affected area every 12 hours as needed (rash, skin lesions). flash glucose sensor (FREESTYLE MICHI 14 DAY SENSOR) kit Apply sensor to back of arm to check bloodsugars as directed. Change sensor every 2 weeks and rotate arms. aspirin, enteric coated (ASPIRIN, ENTERIC COATED) 81 mg EC tablet Take 1 tablet by mouth once daily. famotidine (PEPCID) 20 mg tablet Take 1 tablet by mouth two times a day. Blood-Glucose Sensor (FREESTYLE MICHI 3 PLUS SENSOR) ingrid Use to monitor glucose continuously and replace sensor every 15 days metFORMIN (GLUCOPHAGE) 1,000 mg tablet Take 1 tablet by mouth two times a day. cyanocobalamin (VITAMIN B-12) 1,000 mcg tab Take 2 tablets by mouth once daily. Calcium Citrate-Vitamin D3 (CITRACAL+D) 315 mg-6.25 mcg (250 unit) tab Take 1 tablet by mouth once daily. Oral Medication Containers (SHARPS CONTAINER) [facility] [place] to [place] sharps as directed. flash glucose scanning reader (FREESTYLE MICHI 3 READER) Use to monitor blood glucose continuously Insulin [place], Disposable, (UNIFINE PENTIPS) 31 gauge x 3/16 Use as directed 4 times daily with insulin FLUoxetine (PROZAC) 20 mg capsule Take 1 capsule by mouth once daily. In the morning, for depression gabapentin (NEURONTIN) 100 mg capsule Take 1-2 capsules by mouth daily at bedtime for 30 days. For foot pain alcohol swabs (BD SINGLE USE SWABS REGULAR) Use as directed 4 to 5 times daily to check blood sugars and with insulin injections diclofenac (VOLTAREN ARTHRITIS PAIN) 1 % topical gel Apply 2 g to affected area four times daily. glucagon (BAQSIMI) 3 mg/actuation nasal spray Use 1 [place] in the nose as needed for low blood sugar. May repeat after 15 minutes using a new device if there is no response. polyethylene glycol 3350 (MIRALAX) 17 gram/dose powder 1 capful daily in the morning blood sugar diagnostic (FREESTYLE PRECISION JEREMIAS STRIPS) test strip Use to test blood sugar up to twice daily as instructed. Dx: insulin-dependent DM benzonatate (TESSALON PERLES) 100 mg capsule Take 1 capsule by mouth three times a day as needed for cough. (Patient not taking: Reported on 02/22/2025) No current facility-administered medications for this visit. FAMILY HISTORY Problem Relation Age of Onset Hypertension Mother Diabetes Mother Cancer Maternal Uncle throat cancer Hypertension Sister Diabetes Sister other (hyperlipidemia) Sister Social History Tobacco Use Smoking status: Former Current packs/day: 0.00 Average packs/day: 0.5 packs/day for 24.0 years (12.0 ttl pk-yrs) Types: Cigarettes Start date: 05/13/1989 Quit date: 05/13/2013 Years since quittin.7 Smokeless tobacco: Never Vaping Use Vaping status: Never Used Substance Use Topics Alcohol use: No Drug use: No REVIEW OF SYSTEMS Constitutional: (+) fatigue, (+) chills, (+) hot flashes, (+) sleep disturbance, (-) fever, (-) weight loss Head: (+) headache Eyes: (+) blurred vision, (+) double vision Ears/Nose/Mouth/Throat: (+) ear pain, (+) throat dryness, (-) rhinorrhea Cardiovascular: (+) chest pressure, (+) palpitations, (+) peripheral edema, (-) chest pain Respiratory: (+) shortness of breath, (+) orthopnea, (+) wheezing, (+) cough, (+) pleuritic chest pain, (-) sputum production Gastrointestinal: (+) heartburn, (+) abdominal pain, (+) decreased appetite, (+) constipation, (-) nausea, (-) vomiting, (-) diarrhea Genitourinary: (-) dysuria, (-) hematuria Musculoskeletal: (+) right shoulder pain, (+) left abdominal wall burning, (-) joint swelling Skin: (-) diaphoresis Neurological: (+) lightheadedness EXAM: BP 122/74 Pulse 110 Temp 36.5 C (97.7 F) (Right Tympanic) LMP 08/30/2012 SpO2 96% PHYSICAL EXAM: GENERAL: NAD, alert and oriented. SKIN: Unremarkable, no rash or skin lesions. HEAD: Normocephalic. EARS: Left ear with erythema, right ear less erythematous. NOSE/SINUSES: Nares normal. Septum midline. Nasal passages appear consistent with allergic rhinitis. OROPHARYNX: Lips, mucosa, and tongue normal, good dentition. Unable to visualize well. NECK: Supple, no lymphadenopathy, normal thyroid, no carotid bruits, + JVD sitting upright LUNGS: Clear to auscultation bilaterally, no wheezes/rhonchi/rales. Very poor air exchange. HEART: Tachycardia rate and regular rhythm, no murmurs. No ectopy. No gallop noted. EXTREMITIES: Normal, no deformities, no skin discoloration, no edema. NEURO: Awake, alert and oriented x3, cranial nerves II-XII grossly intact, normal gait, no involuntary motions. LABS: ECG noted ST with Q wave III and AVF, V1 ASSESSMENT/PLAN: 1. Chest pain on breathing - ICD9: 786.52, ICD10: R07.1 (primary diagnosis) Send to [facility] ER now - ECG COMPLETE - Send to ER, report called 2. Type 2 diabetes mellitus with peripheral neuropathy (HCC) - ICD9: 250.60, 357.2, ICD10: E11.42 - Uncontrolled - Continue current medications - uncontrolled 3. Shortness of breath - ICD9: 786.05, ICD10: R06.02 Related to #1 4. Fatigue, unspecified type - ICD9: 780.79, ICD10: R53.83 Related to #1 - COMPLETE BLOOD COUNT AND DIFFERENTIAL - COMPREHENSIVE METABOLIC PANEL - LIPID PANEL, NONFASTING - VITAMIN B12 - THYROID STIMULATING HORMONE - MAGNESIUM - DOXYCYCLINE HYCLATE 100 MG TABLET Discussed treatment plan and patient voices understanding. Patient's questions answered appropriately. Medications and potential side effects were discussed and patient voices understanding. Return to the office as scheduled or as needed for worsening/no improvement. Selin Garcia APRN.CNP [facility] Instructions* Patient Instructions* Selin Garcia APRN.CNP - 02/22/2025 3:55 PM EDT Defer to ER- report called [facility]25 NoteHNO ID: [id number] Author: SELIN GARCIA APRN.CNP Service: ? Author Type: Nurse Practitioner Type: Progress Notes Filed: 02/22/2025 17:27 Note Text: This is a 59 year old female who presents today with: Patient presents with: Cough Wheezing Shortness of Breath HISTORY OF PRESENT ILLNESS: Lina Isaac is a 59 year old female. Patient presents with: Cough Wheezing Shortness of Breath Can't eat for 2 days- chest hurts too bad- mid-sternal Started feeling poorly 1 week ago. Thought maybe pneumonia again. Can't lay down d/t breathing for last 2 days Dyspnea on exertion for a week- could barely get to office d/t dyspnea Chest pain- mid-sternal, epigastric, rubs sternum when talking about chest hurting. Also left lateral chest. Denies arm, jaw, neck or back pain. Some palpitations. Pain in right shoulder PAST MEDICAL HISTORY: PAST MEDICAL HISTORY Diagnosis Date Asthma (HCC) Bowel perforation 11/05/2012 C. difficile colitis 04/2016 Closed nondisplaced fracture of proximal phalanx of lesser toe of left foot with routine healing 10/07/2019 COVID-19 03/30/2021 Diabetes mellitus type 2 in obese 10/2013 A1C 6.8% Dyslipidemia 01/02/2019 Essential hypertension 08/11/2015 GERD (gastroesophageal reflux disease) Incisional hernia 06/26/2013 Injury to rectosigmoid colon 10/17/2012 Low HDL (under 40) 10/2013 Nephrolithiasis Osteoarthrosis, unspecified whether generalized or localized, other specified sites Osteoarthritis Bilateral knees Spasm of muscle Tobacco use disorder quit 2012 Unspecified hereditary and idiopathic peripheral neuropathy 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 Ramirez COLONOSCOPY 09/17/2022 repeat in 10 years EGD 09/17/2022 HERNIA REPAIR HX 06/22/2013 HYSTERECTOMY HX 2011 fistula with intestine HYSTEROSCOPY, DIAGNOSTIC (SEPARATE Hysteroscopy/Novasure LAP HYSTERECTOMY FOR UTERUS 250G OR LESS 10/09/2012 with vaginal sling, LSO, right salpingectomy LAPS ABD PRTMANDOMENTUM DX W/WO SPEC BR/WA SPX Laparoscopy LAPS REPAIR HERNIA EXCEPT INCAL/INGUN REDUCIBLE 05/2017 LIG/TRNSXJ FLP TUBE ABDL/VAG APPR UNI/BI 2001 Tubal ligation PAST SURGICAL HISTORY OF 01/30/2005 Left shoulder arthroscopy and debridement PAST SURGICAL HISTORY OF 02/2004 3rd toe left foot PAST SURGICAL HISTORY OF 03/14/2010 right total knee replacement PAST SURGICAL HISTORY OF 03/14/2009 left total knee replacement PAST SURGICAL HISTORY OF 01/23/2013 Ileostomy closure. PAST SURGICAL HISTORY OF Left 01/06/2016 left ring trigger release RPR 1ST INCAL/VNT HERNIA INCARCERATED 06/22/2013 at ileostomy site - 11x14 [address] mesh RPR RECRT INCAL/VNT HERNIA INCARCERATED 07/23/2014 at midline' RPR RECRT INCAL/VNT HERNIA INCARCERATED 10/11/2014 - recurrent small bowel resection, enterotomy ALLERGIES Omnicef [Cefdinir], Proventil [Albuterol Sulfate], and Tramadol MEDICATIONS Current Outpatient Medications Medication Sig empagliflozin (JARDIANCE) 25 mg tablet Take 1 tablet by mouth daily with breakfast. ibuprofen (MOTRIN) 800 mg tablet TAKE 1 TABLET BY MOUTH EVERY 8 HOURS NEEDED FOR PAIN WITH FOOD lisinopril (ZESTRIL) 10 mg tablet Take 1 tablet by mouth once daily. dulaglutide (TRULICITY) 4.5 mg/0.5 mL pen injector Inject 4.5 mg subcutaneously one time a week. albuterol HFA (VENTOLIN HFA) 90 mcg/actuation inhaler Inhale 2 puffs as instructed every 4 hours as needed. For wheezing/shortness of breath. insulin degludec (TRESIBA FLEXTOUCH U-200) 200 unit/mL (3 mL) injection Inject 112 Units subcutaneously daily at bedtime. insulin aspart U-100 (NOVOLOG U-100 INSULIN ASPART) 100 unit/mL Inject 20 units subcutaneously as directed plus sliding scale with meals. (Max 96 units/day) levalbuterol tartrate HFA (XOPENEX HFA) 45 mcg/actuation inhaler Inhale 1-2 Puffs as instructed every 4 hours as needed for wheezing/shortness of breath. atorvastatin (LIPITOR) 40 mg tablet Take 1 tablet by mouth once daily. ergocalciferol 50,000 unit capsule (VITAMIN D2, DRISDOL) Take 1 capsule by mouth one time a week. mupirocin (BACTROBAN) 2 % ointment Apply to affected area every 12 hours as needed (rash, skin lesions). flash glucose sensor (FREESTYLE MICHI 14 DAY SENSOR) kit Apply sensor to back of arm to check blood sugars as directed. Change sensor every 2 weeks and rotate arms. aspirin, enteric coated (ASPIRIN, ENTERIC COATED) 81 mg EC tablet Take 1 tablet by mouth once daily. famotidine (PEPCID) 20 mg tablet Take 1 tablet by mouth two times a day. Blood-Glucose Sensor (FREESTYLE MICHI 3 PLUS SENSOR) ingrid Use to monitor glucose continuously and replace sensor every 15 days metFORMIN (GLUCOPHAGE) 1,000 mg tablet Take 1 tablet by mouth two times a day. cyanocobal (more content not included)...[facility]08-04-2025 Discharge summary Author John [facility] Note Date/Time February 22, 2025 8:0 9pm [facility] Medical Records Department [address] [place] [address] Emergency Department Summary 02/22/25 MR#: [id number] Acct: [id number] Name: LINA ISAAC Rep #:[id number] : 1965 59 From: John Catherine MD PCP: Dr. Jese Zheng, DO Status:RE G ER Location: ED HPI History of Present Illness Chief Complaint: Chest Pain Informant: patient and EMS Narrative Narrative: 59-year-old female was sent from the PCPs office at [facility] due to the patient having intermittent chest pain for 1 week that she states occurs after meals andif she lies down it feels heavy, resolving if she sits up. She states she has been getting epigastric discomfort with this as well after meals, this occurs 20minutes after eating most meals. She determined that she can eat chicken noodlesoup without getting the chest discomfort. She states separate from this, she feels like she has a productive cough and some wheezing for also about the past week that she feels like may be pneumonia which is why she went to the doctor today hoping to get a chest x-ray. She denies any fevers or chills. She does have a history of asthma, she has albuterol inhaler at home and she has been using it, having some temporary relief of wheezing after using it. She has somechronic leg swelling that is similar right now. No history of heart problems but she was sent here because they thought I was having a heart attack. [facility] Medical History (Updated 02/22/25 @ 20:[address] John Catherine MD) Dyslipidemia Trigger ring finger of left hand Obesity Essential hypertension GERD (gastroesophageal reflux disease) Low HDL (under 40) Incisional hernia without obstruction or gangrene Unspecified hereditary and idiopathic peripheral neuropathy Type 2 diabetes mellitus with polyneuropathy Kidney stones Blood clot in vein Hx: UTI (urinary tract infection) Home Medications ?Medication ?Instructions ?Recorded ?Last Taken ?Type albuterol sulfate 90 mcg/actuation 2 puff inhalation Q 4H PRN PRN 04/08/14 04/08/14 02:30 History aerosol inhaler Wheezing calcium 315 mg (as 1 tab PO DAILY 04/08/1403/22 22:00 History citrate)-vitamin D3 6.25 mcg (250 2 ta b unit) tablet lisinopril 10 mg tablet 1 tab PO DAILY 04/07/1703/22 08:00 History 1 tab magnesium citrate 150 ml PO Q6H PRN PRN Consti pation 01/22/19 Unknown Rx #300 mL albuterol sulfate 2.5 mg/3 mL 2.5 mg inhalation Q4H IA N 05/11/19 Unknown History (0.083 %) solution for nebulization shortness of breat h or wheezing alcohol swabs (BD Alcohol Swabs) See Rx Instructions t opical 05/11/19 Unknown History .COMPLEX aspirin 81 mg tablet,delayed 81 mg PO DAILY 05/11/19 U nknown History release (Adult Low Dose Aspirin) atorvastatin 40 mg tablet 40 mg PO DAILY 05/11/19 Unkn own History blood sugar diagnostic (FreeStyle #10 ea 05/11/19 Unkn own History Lite Strips) blood-glucose meter (FreeStyle #1 ea 05/11/19 Unknown History Lite Meter kit) clotrimazole-betamethasone 1 1 applic topical BID 04/22 08/09 Unknown History %-0.05 % topical cream (Lotrisone) famotidine 20 mg tablet 20 mg PO BID 05/11/19 Unknow n History glucose 4 gram chewable tablet 16 g PO Q15M PRN Unknown History insulin degludec 100 unit/mL (3 112 unit subcut QHS Unknown History mL) subcutaneous pen (Tresiba FlexTouch U-100 insulin) lancets 30 gauge (Unilet Super #25 ea 05/11/19 Unknown History Thin Lancets) mupirocin 2 % topical ointment 1 applic topical BID Unknown History pen needle, diabetic 31 gauge x #30 ea 05/11/19 Unknow n History 3/16 (1st Tier Unifine Pentips) polyethylene glycol 3350 17 17 g PO BID 05/11/19 Unkno wn History gram/dose oral powder (Miralax) flash glucose sensor (FreeStyle #2 ea 02/26/20 Unknown Rx Michi 14 Day Sensor kit) insulin aspart U-100 100 unit/mL 20 unit (0.2 mL) subc ut TID #24 mL 04/05/20 Unknown Rx (3 mL) subcutaneous pen (Novolog FlexPen U-100 Insulin aspart) metformin 1,000 mg tablet 1,000 mg PO DAILY 02/06/21 U nknown History cyanocobalamin (vitamin B-12) 2,000 mcg PO DAILY 02/22 Unknown History 1,000 mcg tablet,extended release dulaglutide 4.5 mg/0.5 mL 4.5 mg subcut QWEEK 02/22/25 Unknown History subcutaneous pen injector (Trulicity) empagliflozin 10 mg tablet 25 mg PO BREAKFAST 02/22/25 Unknown History (Jardiance) fluoxetine 20 mg capsule 20 mg PO DAILY 02/22/25 Unkn own History gabapentin 100 mg capsule 100 mg PO QHS 02/22/25 Unkno wn History levalbuterol tartrate 45 2 inh inhalation Q4H PRN lui rtness 02/22/25 Unknown History mcg/actuation aerosol inhaler of breath or wheezing (Xopenex HFA) Allergy/AdvReac Type Severity Reaction Status Date / Time tramadol Allergy Hives Verified 02/22/25 16:32 albuterol sulfate (From AdvReac Vomiting Verified 02/22/25 16:32 Proventil HFA) ammonium lactate (From AdvReac Other Verified 02/22/25 16:32 Lac-Hydrin) phentermine HCl (From AdvReac Chest Verified 02/22/25 16:32 Adipex-P) tightness Family History Uncle Cancer Sister Diabetes Social History Smoking Status: Never smoker alcohol intake: never substance use type: does not use ROS ROS ED Constitutional Constitutional ED: Denies chills or fever(s) Eyes Eyes: Denies change in vision or diplopia ENT ENT ED: Denies rhinorrhea or sore throat Cardiovascular Cardiovascular: Reports as per HPI, chest pain and leg edema; Denies orthopnea, palpitations or paroxysmal nocturnal dyspnea Respiratory/Chest Respiratory/Chest: Reports cough, dyspnea and sputum; Denies orthopnea or paroxysmal nocturnal dyspnea Gastrointestinal Gastrointestinal: Reports abdominal pain; Denies diarrhea, nausea or vomiting Genitourinary Genitourinary ED: Denies dysuria or hematuria Musculoskeletal Musculoskeletal: Denies back pain or neck pain Integumentary Denies abscess or rash Neurologic Neurologic: Denies headache(s), paresthesias or weakness Psychiatric Psychiatric: Denies anxiety or suicidal thoughts EXAM Physical Exam Const Vital Signs: 02/22/25 16:31 02/22/25 17:54 02/22/25 18:07 Temperature 98.3 F Temperature Source Oral Pulse Rate 106 H 113 H Respiratory Rate 19 H 18 Blood Pressure 146/98 H Blood Pressure Mean 114 Pulse Ox 96 94 Oxygen Delivery Method Room Air Room Air Oxygen Flow Rate (L/min) 02/22/25 18:07 02/22/25 19:03 02/22/25 19:56 Temperature Temperature Source Pulse Rate 120 H 120 H 116 H Respiratory Rate 19 H 18 22 H Blood Pressure 129/87 H 132/93 H Blood Pressure Mean 101 106 Pulse Ox 94 95 87 Oxygen Delivery Method Room Air Room Air Room Air Oxygen Flow Rate (L/min) 02/22/25 19:56 Temperature Temperature Source Pulse Rate Respiratory Rate Blood Pressure Blood Pressure Mean Pulse Ox 93 Oxygen Delivery Method Nasal Cannula Oxygen Flow Rate (L/min) 2 Positive well nourished and well developed General Appearance ED: well developed and NAD HEENT Reports moist mucous membranes normocephalic and atraumatic Eyes PERRL and EOMs intact bilaterally Neck full ROM and supple Chest Wall inspection of chest normal Chest Narrative: mild diffuse chest wall tenderness Chest: tenderness Resp normal respiratory effort and clear to auscultation bilaterally Cardio regular rate, regular rhythm and no murmurs GI non-distended GI Narrative: Epigastric tenderness without pulsatile mass, guarding, rebound tenderness. Auscultation: normoactive bowel sounds Palpation: soft Back/Spine no CVA tenderness General Back: other FROM Extremity normal to inspection General Extremety ED: Yes edema; Negative for pulses abnormal or tenderness General Extremity: edema bilateral lower extremity Details: mild; Negative for pulses abnormal Neuro oriented x3, CN's II-XII intact bilaterally and no sensory deficits noted Sensorium / Orientation: awake and alert Motor Exam: strength 5/5 throughout Psych mental status grossly normal Skin no rashes or lesions noted and no wounds Heart Score History: Slightly/Non-Suspicious ECG: Nonspecific Repolarization Age: >45 - <65 years Risk Factors: >/= 3 Risk Factors or History of CAD Troponin: >/=3 x Normal Limit Score: 6 MDM MDM MDM Narrative Medical decision making narrative: Patient was given a GI cocktail for what sounds more like noncardiac discomfort,as well as Zofran and an albuterol treatment, however she vomited up the GI cocktail and as a result had to abort the majority of the albuterol treatment. While I was observing her, her oxygen saturations went down to 87% on room air while resting, so we placed 2 L nasal cannula on her. 2 view chest x-ray my interpretation shows bilateral lower lobe infiltrates, radiology in agreement. This could be CHF, could be infectious, she has symptoms compatible with pneumonia but also possibly CHF, and her renal function is normal but elevated troponins, trending down, as well as elevated proBNP. She does not have a significant leukocytosis to suggest this is all infectious although I am covering her anyway with Rocephin and Zithromax. Discussed with hospitalist, mysuspicion is that this is a type II MO as opposed to a primary vascular problem,but with that being said she is high risk with obesity, hypertension, type 2 diabetes that apparently is uncontrolled, and she is a heavy smoker. Giving parag dose of Lasix. As I expect that we will help with the x-ray findings and her tachycardia and hypoxemia. History & Record Review Additional record(s) reviewed:: Prior labs (prior echo 2018) Lab Data Attestation: I reviewed the patient's lab results. Labs: Laboratory Results - last 24 hr 02/22/25 02/22/25 17:45 19:24 WBC 7.8 RBC 4.29 Hgb 13.3 Hct 38.3 MCV 89.3 MCH 31.0 MCHC 34.7 RDW Std Deviation 39.5 RDW Coeff of Brett 12.2 Plt Count 278 MPV 10.0 Immature Gran % (Auto) 0.400 Neut % (Auto) 48.8 Lymph % (Auto) 37.3 [place] % (Auto) 11.0 H Eos % (Auto) 1.7 Baso % (Auto) 0.8 Absolute Neuts (auto) 3.8 Absolute Lymphs (auto) 2.92 Nucleated RBC % 0 Sodium 139 Potassium 3.6 Chloride 103 Carbon Dioxide 24.0 Anion Gap 12 BUN 9 Creatinine 0.57 L Estim Creat Clear Calc 127.95 Est GFR (MDRD) Non-Af 104 BUN/Creatinine Ratio 15.5 Glucose 270 H Calcium 9.3 Troponin T High Sens 181 H* Troponin T Hi Sens 2 Hr 160 H* NT pro BNP II 3685 H Radiography Diagnostic Testing: Clinical Impression(s) from Imaging Studies Chest X-Ray 02/22/25 18:16 IMPRESSION: Bilateral coarse reticular airspace opacities, which may reflect interstitial fibrotic lung changes, interstitial edema, or possibly atypical/viral infection in the appropriate clinical context. Reading Location: [facility] Rhythm Strip Rhythm Strip: Sinus Tach Rate: 110 Ectopy: None EKG Initial EKG: Attestation: I personally reviewed and interpreted this EKG as follows: Interpretation: No Acute Injury Pattern and Sinus Tachycardia Comments: Voltage consistent with LVH. Nonspecific ST-T wave abnormalities lateral and inferior limb leads. Q waves 3, aVF new compared withprior in 2019 Prior EKG tracings: available for review Prior: Changed Management Discussion w/another healthcare provider: Hospitalist Treatment and Re-Evaluation Comments:: Aspirin x 4 given prior to arrival Discharge Plan Triage Chief Complaint: Chest Pain ED Provider: John Catherine Dx/Rx/DC Orders Clinical Impression: Acute CHF, Elevated troponin, Hypoxemia, Acute cough, Chest pain Prescriptions: No Action albuterol sulfate 2.5 mg /3 mL (0.083 %) solution for nebulization 2.5 mg INHALATION Q4H PRN alcohol swabs [BD Alcohol Swabs] Pads, Medicated See Rx Instructions TOPICAL .COMPLEX Rx Instructions: TOPICAL use 4-5 x qd to check BG and with insulin injections; aspirin [Adult Low Dose Aspirin] 81 mg tablet,delayed release (DR/EC) 81 mg PO DAILY atorvastatin 40 mg tablet 40 mg PO DAILY (DME) FreeStyle Lite Strips Strip See Rx Instructions .ROUTE .MEDSUPPLY Qty: 10 Rx Instructions: use to check BG tid (DME) blood-glucose meter [FreeStyle Lite Meter] Kit See Rx Instructions .ROUTE .MEDSUPPLY Qty: 1 Rx Instructions: As directed clotrimazole-betamethasone [Lotrisone] 1-0.05 % cream 1 applic TOPICAL BID (DME) pen needle, diabetic [1st Tier Unifine Pentips] 31 gauge x /16 needle See Rx Instructions .ROUTE .MEDSUPPLY Qty: 30 Rx Instructions: use 4 x qd to inject insulin famotidine 20 mg tablet 20 mg PO BID glucose 4 gram tablet,chewable 16 g PO Q15M PRN Tresiba FlexTouch U-100 100 unit/mL (3 mL) insulin pen 70 unit SC QHS mupirocin 2 % ointment 1 applic TOPICAL BID polyethylene glycol 3350 [Miralax] 17 gram/dose powder 17 g PO BID (DME) lancets [Unilet Super Thin Lancets] 30 gauge misc See Rx Instructions .ROUTE .MEDSUPPLY Qty: 25 Rx Instructions: use to check BG 1 x qd urea 40 % cream 1 applic TOPICAL BID (DME) FreeStyle Michi 14 Day Sensor Kit See Rx Instructions .ROUTE .MEDSUPPLY Qty: 2 6RF Rx Instructions: As directed metformin 1,000 mg tablet 1,000 mg PO DAILY albuterol sulfate 1 INHALER inhaler 2 puff inhalation Q4H PRN PRN (Reason: Wheezing) Patient Comments: ASTHMA calcium citrate-vitamin D3 1 EACH tablet 2 tab PO BID Patient Comments: SUPPLEMENT lisinopril 10 MG tablet 1 tab PO DAILY Patient Comments: TAKE 1 TABLET EVERY DAY promethazine 25 MG tablet 25 mg PO Q6H PRN PRN (Reason: Nausea) Qty: 10 0RF magnesium citrate 300 ML solution 150 ml PO Q6H PRN PRN (Reason: Constipation) Qty: 300 0RF ondansetron 4 mg tablet,disintegrating 4 mg PO Q8H PRN PRN (Reason: Nausea) Qty: 14 0RF Novolog FlexPen U-100 Insulin 100 unit/mL (3 mL) insulin pen 20 unit SC TID MDD 80 Qty: 24 4RF Rx Instructions: plus sliding scale Primary Care Provider: Jese Zheng Referrals: Jese Zheng DO [Primary Care Provider] - Print Language: Omani Disposition Disposition: Acute Care Hospital [facility] What to do if you have Problems For any increased pain, shortness of breath, bleeding, nausea or vomiting, chestpain, or any unexpected problems, contact your Primary Care Provider. Call [facility] ([phone]) or report to the closest Emergency Room. Call 911 if necessary. 02/22/252008 <Electronically signed by John Catherine MD> Cosigner Signature (if applicable): CC: Dr. Jese Zheng DO ~ Signed [facility] Work Phone: 1(706) 578-618308-04-2025 Telephone encounter Note* Telephone Encounter - Fabiana Cook LPN - 02/22/2025 9:27 AM EDT informed and states if Pt. doesn't seem Shortness of Breath on the phone make Appt withNP. Appt. made. [facility]08-04-2025 Miscellaneous Notes* Telephone Encounter - Fabiana Ponce LPN - 02/22/2025 9:27 AM EDT informed and states if Pt. doesn't seem Shortness of Breath on the phone make Appt withNP. Appt. made. * Telephone Encounter - Digna Roberts RN - 02/22/2025 8:12 AM EDT Protocol recommends go to ER now. Pt states she would rather come in to see Dr Zheng or one of her hospice executive director. I let Pt know I would send a message to the provider and would have her get back to her. Care plan reviewed with patient. Patient voices understanding. Advised patient that if symptoms get worse to be evaluated in Urgent Care or ER. Reason for Disposition [1] MODERATE difficulty breathing (e.g., speaks in phrases, SOB even at rest, pulse 100-120) AND [2] NEW-onset or WORSE than normal Answer Assessment - Initial Assessment Questions 1. RESPIRATORY STATUS: Pt reports wheezing, shortness of breath, severe coughing when laying down not as bad when up. 2. ONSET: The breathing problem began Saturday more with heartburn, the Shortness of Breath and coughstarted e. 3. PATTERN The difficult breathing has it been constant since it started, has been using inhaler and helps for 20 min. Then when she moves is right back. 4. SEVERITY: How bad is your breathing? (e.g., mild, moderate, severe) - MILD: No SOB at rest, mild SOB with walking, speaks normally in sentences, can lie down, no retractions, pulse < 100. - MODERATE: SOB at rest, SOB with minimal exertion and prefers to sit, cannot lie down flat, speaksin phrases, mild retractions, audible wheezing, pulse 100 to 120. - SEVERE: Very SOB at rest, speaks in single words, struggling to breathe, sitting hunched forward,retractions, pulse > 120 Pt reports she has to sit sleeping in a chair. She isn't able to lay flat. 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 Shortness of Breath walking. 5. RECURRENT SYMPTOM: She reports she had this difficulty breathing before when she had Pneumonia. Did a couple rounds of Z-rekha and steroids. 6. CARDIAC HISTORY: Pt denies any history of heart disease such as heart attack, angina, bypass surgery, angioplasty. 7. LUNG HISTORY: Pt denies history of lung disease such as pulmonary embolus, asthma, emphysema. 8. CAUSE: Does not know what is causing the breathing problem.9. 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 Pt denies fever or runny nose. 10. O2 SATURATION MONITOR: O2 88-92% RA 11. : Postmenopausal. 12. TRAVEL: Denies traveled out of the country in the last month. Protocols used: Breathing [id number] documented in this encounterG[facility]08-[facility]25 Telephone encounter Note * Telephone Encounter - Digna Roberts RN - 02/22/2025 8:12 AM EDT Protocol recommends go to ER now. Pt states she would rather come in to see Dr Zheng or one of her hospice executive director. I let Pt know I would send a message to the provider and would have her get back to her. Care plan reviewed with patient. Patient voices understanding. Advised patient that if symptoms get worse to be evaluated in Urgent Care or ER. Reason for Disposition [1] MODERATE difficulty breathing (e.g., speaks in phrases, SOB even at rest, pulse 100-120) AND [2] NEW-onset or WORSE than normal Answer Assessment - Initial Assessment Questions 1. RESPIRATORY STATUS: Pt reports wheezing, shortness of breath, severe coughing when laying down not as bad when up. 2. ONSET: The breathing problem began Saturday more with heartburn, the Shortness of Breath and coughstarted Tue. 3. PATTERN The difficult breathing has it been constant since it started, has been using inhaler and helps for 20 min. Then when she moves is right back. 4. SEVERITY: How bad is your breathing? (e.g., mild, moderate, severe) - MILD: No SOB at rest, mild SOB with walking, speaks normally in sentences, can lie down, no retractions, pulse < 100. - MODERATE: SOB at rest, SOB with minimal exertion and prefers to sit, cannot lie down flat, speaksin phrases, mild retractions, audible wheezing, pulse 100 to 120. - SEVERE: Very SOB at rest, speaks in single words, struggling to breathe, sitting hunched forward,retractions, pulse > 120 Pt reports she has to sit sleeping in a chair. She isn't able to lay flat. 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 Shortness of Breath walking. 5. RECURRENT SYMPTOM: She reports she had this difficulty breathing before when she had Pneumonia. Did a couple rounds of Z-rekha and steroids. 6. CARDIAC HISTORY: Pt denies any history of heart disease such as heart attack, angina, bypass surgery, angioplasty. 7. LUNG HISTORY: Pt denies history of lung disease such as pulmonary embolus, asthma, emphysema. 8. CAUSE: Does not know what is causing the breathing problem.9. 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 Pt denies fever or runny nose. 10. O2 SATURATION MONITOR: O2 88-92% RA 11. : Postmenopausal. 12. TRAVEL: Denies traveled out of the country in the last month. Protocols used: Breathing [id number] [facility]07-16-2025 Telephone encounter Note* Telephone Encounter - Pippa De La Rosa LPN - 02/03/2025 9:18 AM EDT Opened in error. [facility]07-16-2025 Miscellaneous Notes* Telephone Encounter - Pippa De La Rosa LPN - 02/03/2025 9:18 AM EDT Opened in error. documented in this encounterGlen[facility] Hospital07-07-2025 Telephone encounter Note * Telephone Encounter - Susana Garcia RPh - 01/25/2025 1:40 PM EDT BMP WNL since starting Jardiance and A1c showing improvement to 9.6% (from 10.4% on 12/30/24). Jardiance dose recently increased at recent pharmacy visit. Next PharmD f/up on 02/25/25 Susana Garcia PharmD, BCACP Primary Care Clinical Wood Furniture Assembler [facility] Work Phone: 1(643) 433-390107-07-2025 Miscellaneous Notes* Telephone Encounter - Susana Garcia RPh - 01/25/2025 1:40 PM EDT BMP WNL since starting Jardiance and A1c showing improvement to 9.6% (from 10.4% on 12/30/24). Jardiance dose recently increased at recent pharmacy visit. Next PharmD f/up on 02/25/25 Susana Garcia PharmD, ROSANNE Primary Care Clinical Wood Furniture Assembler documented in this encounterGlenbeigh Hospital07-03-2025 History of Present illness Narrative* Susana Garcia [facility] - 01/21/2025 3:00 PM EDT Images from the original note were not included. Primary Care Pharmacy Visit CC (Reason for Consult): (E11.65) Uncontrolled type 2 diabetes mellitus with hyperglycemia (HCC) (primary encounter diagnosis) Goal(s): A1c <7% Last Collaborating Provider Visit: 12/30/[address] Norm Mills Bean Isaac is a 59 year old female presenting for follow up visit in person. Patient consentsto pharmacy collaborative practice agreement. 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 Requesting to recheck A1c more frequently considering CGM report shows better A1c compared to last lab value Brief discussion of potential to try Mounjaro in place of Trulicity; however, pt prefers to adjust Jardiance first today Current DM Medications: Metformin 1000 mg twice daily Trulicity 4.5 mg once weekly on Sundays Jardiance 10 mg once daily Tresiba to 112 units once daily Novolog 20 units plus sliding scale before meals 150-200 = add 2 units 200-250 = add 4 units 250-300 = add 6 units 301-350 = add 8 units >350 = add 12 units Previously Trialed DM Meds: Ozempic - GI side effects GLYCEMIC CONTROL: Glucometer present at visit: Yes Hypoglycemia: No CGM Data Past medical history reviewed. ALLERGIES Allergen Reactions Omnicef [Cefdinir] Itching Vaginitis severe Proventil [Albutero* Vomiting Can not tolerate generic albuterol 08/22/12 - MEM. Tramadol Hives Current Outpatient Medications Medication Sig Dispense Refill ibuprofen (MOTRIN) 800 mg tablet TAKE 1 TABLET BY MOUTH EVERY 8 HOURS NEEDED FOR PAIN WITH FOOD 60 tablet 1 lisinopril (ZESTRIL) 10 mg tablet Take 1 tablet by mouth once daily. 90 tablet 11 empagliflozin (JARDIANCE) 10 mg tablet Take 1 tablet by mouth daily with breakfast. 30 tablet 2 dulaglutide (TRULICITY) 4.5 mg/0.5 mL pen injector Inject 4.5 mg subcutaneously one time a week. 6 mL 4 albuterol HFA (VENTOLIN HFA) 90 mcg/actuation inhaler Inhale 2 puffs as instructed every 4 hours asneeded. For wheezing/shortness of breath. 18 g 3 insulin degludec (TRESIBA FLEXTOUCH U-200) 200 unit/mL (3 mL) injection Inject 112 Units subcutaneously daily at bedtime. 18 mL 11 insulin aspart U-100 (NOVOLOG U-100 INSULIN ASPART) 100 unit/mL Inject 20 units subcutaneously as directed plus sliding scale with meals. (Max 96 units/day) 30 mL 11 levalbuterol tartrate HFA (XOPENEX HFA) 45 mcg/actuation inhaler Inhale 1-2 Puffs as instructed every 4 hours as needed for wheezing/shortness of breath. 1 Each 1 atorvastatin (LIPITOR) 40 mg tablet Take 1 tablet by mouth once daily. 90 tablet 3 ergocalciferol 50,000 unit capsule (VITAMIN D2, DRISDOL) Take 1 capsule by mouth one time a week. 12 capsule 3 mupirocin (BACTROBAN) 2 % ointment Apply to affected area every 12 hours as needed (rash, skin lesions). 66 g 2 flash glucose sensor (FREESTYLE MICHI 14 DAY SENSOR) kit Apply sensor to back of arm to check bloodsugars as directed. Change sensor every 2 weeks and rotate arms. 6 Each 3 aspirin, enteric coated (ASPIRIN, ENTERIC COATED) 81 mg EC tablet Take 1 tablet by mouth once daily. 90 tablet 3 famotidine (PEPCID) 20 mg tablet Take 1 tablet by mouth two times a day. 180 tablet 3 Blood-Glucose Sensor (FREESTYLE MICHI 3 PLUS SENSOR) ingrid Use to monitor glucose continuously and replace sensor every 15 days 6 Each 3 metFORMIN (GLUCOPHAGE) 1,000 mg tablet Take 1 tablet by mouth two times a day. 180 tablet 3 cyanocobalamin (VITAMIN B-12) 1,000 mcg tab Take 2 tablets by mouth once daily. 180 tablet 1 Calcium Citrate-Vitamin D3 (CITRACAL+D) 315 mg-6.25 mcg (250 unit) tab Take 1 tablet by mouth once daily. 30 tablet 3 benzonatate (TESSALON PERLES) 100 mg capsule Take 1 capsule by mouth three times a day as needed for cough. 30 capsule 1 Oral Medication Containers (SHARPS CONTAINER) [facility] [place] as directed. 1 Each 0 flash glucose scanning reader (FREESTYLE MICHI 3 READER) Use to monitor blood glucose continuously 1 Each 0 Insulin [place], Disposable, (UNIFINE PENTIPS) 31 gauge x 3/16 Use as directed 4 times daily with insulin 400 Each 3 FLUoxetine (PROZAC) 20 mg capsule Take 1 capsule by mouth once daily. In the morning, for depression 90 capsule 1 gabapentin (NEURONTIN) 100 mg capsule Take 1-2 capsules by mouth daily at bedtime for 30 days. For foot pain 60 capsule 5 alcohol swabs (BD SINGLE USE SWABS REGULAR) Use as directed 4 to 5 times daily to check blood sugars and with insulin injections 360 Each 3 diclofenac (VOLTAREN ARTHRITIS PAIN) 1 % topical gel Apply 2 g to affected area four times daily. 100 g 1 glucagon (BAQSIMI) 3 mg/actuation nasal spray Use 1 [place] in the nose as needed for low blood sugar. May repeat after 15 minutes using a new device if there is no response. 1 Each 3 polyethylene glycol 3350 (MIRALAX) 17 gram/dose powder 1 capful daily in the morning 1700 g 3 blood sugar diagnostic (FREESTYLE PRECISION JEREMIAS STRIPS) test strip Use to test blood sugar up to twice daily as instructed. Dx: insulin-dependent DM 50 Strip 11 No current facility-administered medications for this visit. Pill bottles are not present. Adherence: denies missed doses. Rx coverage: Payor: SEAN / Plan: SEAN DEL CID / Product Type: EPO / Medications affordable? Yes PHARMACOTHERAPY PREVENTATIVE MEDS: On JANNIE/ARB: Yes On Statin: Yes On ASA: Yes EXAM: LMP 08/30/2012 Last 3 Encounter BP Readings: Date: BP: 12/30/2024 120/70 12/10/2024 120/70 09/23/2024 134/64 Wt: 93 kg (205 lb) BMI: 31.17 kg/(m^2) LABS: Lab Results Component Value Date HBA1C 10.4 12/30/2024 HBA1C 11.2 09/23/2024 HBA1C 10.5 07/20/2024 HBA1C 9.1 03/19/2024 HBA1C 9.3 11/27/2023 HBA1C 11.2 08/14/2021 HBA1C 12.1 05/09/2021 HBA1C 10.3 08/05/2020 Glucose 212 03/19/2024 BUN 7 03/19/2024 Creatinine, Whole Blood (iSTAT) 0.47 03/19/2024 Sodium 142 03/19/2024 Potassium 4.1 03/19/2024 Chloride 106 03/19/2024 CO2 26 03/19/2024 Protein, Total 6.8 03/19/2024 Albumin 4.1 03/19/2024 Calcium 9.1 03/19/2024 Alkaline Phosphatase 76 03/19/2024 Bilirubin, Total 0.7 03/19/2024 AST 15 03/19/2024 ALT 15 03/19/2024 Lab Results Component Value Date CHOL 172 03/19/2024 CHOL 205 05/09/2021 LDL 102 03/19/2024 LDL 152 02/19/2023 LDL 127 05/09/2021 HDL 40 03/19/2024 HDL 54 05/09/2021 TG 150 03/19/2024 TG 120 05/09/2021 Albumin/Creat Ratio (mg/g) Date Value 03/19/2024 26 eGFR-All Other Races (.) Date Value 05/09/2021 >60 Estimated Glomerular Filtration Rate (mL/min/1.73m ) Date Value 03/19/2024 110 ASSESSMENT/PLAN: 1. Uncontrolled type 2 diabetes mellitus with hyperglycemia (HCC) - ICD9: 250.02, ICD10: E11.65 - Improving control - Increase Jardiance to 25 mg once daily - Continue all other medications as currently prescribed - Statin prescribed - atorvastatin - Blood glucose monitoring on a continuous glucose monitoring schedule - Counseled on healthy diet and regular exercise - Discussed diabetic education issues of hypoglycemic/hyperglycemic symptoms and medication-specific side effects and monitoring - Follow up in 1 month, sooner should any other issues arise. - Due for repeat BMP since starting Jardiance and will repeat A1c per pt request Overdue Diabetes Health Maintenance: Health Maintenance - Diabetes Topic Date Due Dilated Retinal Exam 10/29/2024 Follow Up: Next PCP visit: 04/06/25 Next PharmD visit: 02/25/25 Susana Garcia, MonsterD, BCACP Primary Care Clinical Wood Furniture Assembler I spent a total of 20 minutes on the date of the service which included preparing to see the patient, [id number] patient care, completing clinical documentation, counseling and educating the patient/family/caregiver, and ordering medications, tests, or procedures. documented in this encounterGlen[facility]igh Hospital07-03-2025 Instructions* Patient Instructions* Susana Garcia RPh - 01/21/2025 3:00 PM EDT Increase Jardiance to 25 mg once daily Continue all other medications: Metformin 1000 mg twice daily Trulicity 4.5 mg once weekly on Sundays Tresiba to 112 units once daily Novolog 20 units plus sliding scale before meals 150-200 = add 2 units 200-250 = add 4 units 250-300 = add 6 units 301-350 = add 8 units >350 = add 12 units Get labwork done on your way out documented in this encounterGlenbeigh Hospital07-03-2025 NoteHNO ID: [id number] Author: SUSANA GARCIA RPh Service: ? Author Type: Pharmacist Type: Progress Notes Filed: 01/21/2025 15:04 Note Text: Primary Care Pharmacy Visit CC (Reason for Consult): (E11.65) Uncontrolled type 2 diabetes mellitus with hyperglycemia (HCC) (primary encounter diagnosis) Goal(s): A1c <7% Last Collaborating Provider Visit: 12/30/[address] Norm Mills Bean Isaac is a 59 year old female presenting for follow up visit in person. Patient consents to pharmacy collaborative practice agreement. 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 Requesting to recheck A1c more frequently considering CGM report shows better A1c compared to last lab value Brief discussion of potential to try Mounjaro in place of Trulicity; however, pt prefers to adjust Jardiance first today Current DM Medications: Metformin 1000 mg twice daily Trulicity 4.5 mg once weekly on Sundays Jardiance 10 mg once daily Tresiba to 112 units once daily Novolog 20 units plus sliding scale before meals 150-200 = add 2 units 200-250 = add 4 units 250-300 = add 6 units 301-350 = add 8 units >350 = add 12 units Previously Trialed DM Meds: Ozempic - GI side effects GLYCEMIC CONTROL: Glucometer present at visit: Yes Hypoglycemia: No CGM Data Past medical history reviewed. ALLERGIES Allergen Reactions Omnicef [Cefdinir] Itching Vaginitis severe Proventil [Albutero* Vomiting Can not tolerate generic albuterol 08/22/12 - MEM. Tramadol Hives Current Outpatient Medications Medication Sig Dispense Refill ibuprofen (MOTRIN) 800 mg tablet TAKE 1 TABLET BY MOUTH EVERY 8 HOURS NEEDED FOR PAIN WITH FOOD 60 tablet 1 lisinopril (ZESTRIL) 10 mg tablet Take 1 tablet by mouth once daily. 90 tablet 11 empagliflozin (JARDIANCE) 10 mg tablet Take 1 tablet by mouth daily with breakfast. 30 tablet 2 dulaglutide (TRULICITY) 4.5 mg/0.5 mL pen injector Inject 4.5 mg subcutaneously one time a week. 6 mL 4 albuterol HFA (VENTOLIN HFA) 90 mcg/actuation inhaler Inhale 2 puffs as instructed every 4 hours as needed. For wheezing/shortness of breath. 18 g 3 insulin degludec (TRESIBA FLEXTOUCH U-200) 200 unit/mL (3 mL) injection Inject 112 Units subcutaneously daily at bedtime. 18 mL 11 insulin aspart U-100 (NOVOLOG U-100 INSULIN ASPART) 100 unit/mL Inject 20 units subcutaneously as directed plus sliding scale with meals. (Max 96 units/day) 30 mL 11 levalbuterol tartrate HFA (XOPENEX HFA) 45 mcg/actuation inhaler Inhale 1-2 Puffs as instructed every 4 hours as needed for wheezing/shortness of breath. 1 Each 1 atorvastatin (LIPITOR) 40 mg tablet Take 1 tablet by mouth once daily. 90 tablet 3 ergocalciferol 50,000 unit capsule (VITAMIN D2, DRISDOL) Take 1 capsule by mouth one time a week. 12 capsule 3 mupirocin (BACTROBAN) 2 % ointment Apply to affected area every 12 hours as needed (rash, skin lesions). 66 g 2 flash glucose sensor (FREESTYLE MICHI 14 DAY SENSOR) kit Apply sensor to back of arm to check blood sugars as directed. Change sensor every 2 weeks and rotate arms. 6 Each 3 aspirin, enteric coated (ASPIRIN, ENTERIC COATED) 81 mg EC tablet Take 1 tablet by mouth once daily. 90 tablet 3 famotidine (PEPCID) 20 mg tablet Take 1 tablet by mouth two times a day. 180 tablet 3 Blood-Glucose Sensor (FREESTYLE MICHI 3 PLUS SENSOR) ingrid Use to monitor glucose continuously and replace sensor every 15 days 6 Each 3 metFORMIN (GLUCOPHAGE) 1,000 mg tablet Take 1 tablet by mouth two times a day. 180 tablet 3 cyanocobalamin (VITAMIN B-12) 1,000 mcg tab Take 2 tablets by mouth once daily. 180 tablet 1 Calcium Citrate-Vitamin D3 (CITRACAL+D) 315 mg-6.25 mcg (250 unit) tab Take 1 tablet by mouth once daily. 30 tablet 3 benzonatate (TESSALON PERLES) 100 mg capsule Take 1 capsule by mouth three times a day as needed for cough. 30 capsule 1 Oral Medication Containers (SHARPS CONTAINER) [facility] [place] to collect sharps as directed. 1 Each 0 flash glucose scanning reader (FREESTYLE MICHI 3 READER) Use to monitor blood glucose continuously 1 Each 0 Insulin [place], Disposable, (UNIFINE PENTIPS) 31 gauge x 3/16 Use as directed 4 times daily with insulin 400 Each 3 FLUoxetine (PROZAC) 20 mg capsule Take 1 capsule by mouth once daily. In the morning, for depression 90 capsule 1 gabapentin (NEURONTIN) 100 mg capsule Take 1-2 capsules by mouth daily at bedtime for 30 days. For foot pain 60 capsule 5 alcohol swabs (BD SINGLE USE SWABS REGULAR) Use as directed 4 to 5 times daily to check blood sugars and with insu (more content not included)...[facility]06-23-2025 Telephone encounter Note* Telephone Encounter - Maria Eugenia Lam LPN - 01/11/2025 6:47 PM EDT Prescription Refill Information The patient has been identified by name and date of : Yes Caregiver verified no other encounters exist for this prescription request: Yes Caregiver confirmed with patient/requestor that no other refills are due, in the near future, with this provider at this time: Yes The last office visit in the department: 12/30/24 Does the patient have a future office visit with this provider/department: Yes Requested Prescriptions Pending Prescriptions Disp Refills ibuprofen (MOTRIN) 800 mg tablet 60 tablet 1 Sig: TAKE 1 TABLET BY MOUTH EVERY 8 HOURS NEEDED FOR PAIN WITH FOOD Maria Eugenia Lam LPN January 11, 2025 6:48 PM [facility]06-23-2025 Miscellaneous Notes* Telephone Encounter - Maria Eugenia Lam LPN - 01/11/2025 6:47 PM EDT Prescription Refill Information The patient has been identified by name and date of : Yes Caregiver verified no other encounters exist for this prescription request: Yes Caregiver confirmed with patient/requestor that no other refills are due, in the near future, with this provider at this time: Yes The last office visit in the department: 12/30/24 Does the patient have a future office visit with this provider/department: Yes Requested Prescriptions Pending Prescriptions Disp Refills ibuprofen (MOTRIN) 800 mg tablet 60 tablet 1 Sig: TAKE 1 TABLET BY MOUTH EVERY 8 HOURS NEEDED FOR PAIN WITH FOOD Maria Eugenia Lam LPN January 11, 2025 6:48 PM documented in this encounterGlenbeigh Hospital06-11-2025 NoteHNO ID: [id number] Author: JESE ZHENG, DO Service: ? Author Type: Physician Type: Progress Notes Filed: 12/30/2024 15:33 Note Text: Patient presents with: F/U 3 Month HPI: Lina Isaac is a 59 year old female who presents to the office today for review of health conditions. Concerns today: Need for tdap vaccine, willing to have this done Trigger finger, right hand, has been seen by Orthopedics. Pain is getting worse, using ibuprofen and icing and heating the hand to try to help it. Surgeon needs A1c 9% or lower to do surgery. She is struggling with severity of symptoms with pain at night- no longer getting benefit from ibuprofen or tylenol or use of ice or heating pad and topical Voltaren. She has taken [place] with relief when pain is severe. Right ear discomfort, coming and going the last few days, no fevers or drainage Ms. Isaac has past history of diabetes. Since our last visit she denies excessive thirst or increased frequency of urination, chest pain or dyspnea , new or unusual visual symptoms, and low sugar/hypoglycemic reactions. Depression- no. Follows a diabetic diet most of the time. She is compliant with medication(s) and is tolerating med(s) without any side effects. She reports checking her glucose on a CGM schedule with sugars in the <200 range. Patient's last HgA1C was Hemoglobin A1C (%) Date Value 07/20/2024 10.5 03/19/2024 9.1 08/14/2021 11.2 05/09/2021 12.1 Hemoglobin A1C (POCT) (%) Date Value 09/23/2024 11.2 11/27/2023 9.3 ) Last Ophthalmology exam was within the past 12 months Ms. Isaac reports history of hyperlipidemia. Current therapy includes atorvastatin (Lipitor) 40 mg. Denies side effects of muscle weakness or achiness. Her most recent lipid panels are reviewed. Cholesterol, Total (mg/dL) Date Value 03/19/2024 172 05/09/2021 205 HDL Cholesterol (mg/dL) Date Value 03/19/2024 40 05/09/2021 54 LDL Cholesterol, Calculated (mg/dL) Date Value 03/19/2024 102 05/09/2021 127 LDL Cholesterol Calculated, Nonfasting (mg/dL) Date Value 02/19/2023 152 Triglyceride (mg/dL) Date Value 03/19/2024 150 05/09/2021 120 Ms. Isaac indicates a history of hypertension and states that she is feeling well and denies any symptoms referable to elevated blood pressure. Specifically denies headache, chest pain, palpitations, dyspnea, and peripheral edema. Patient denies any side effects of her medication(s) and is compliant with their regimen. Last 3 Encounter BP Readings: Date: BP: 12/30/2024 120/70 12/10/2024 120/70 09/23/2024 134/64 She watches her diet for sodium, low fat and low cholesterol some of the time. She does not check BP's generally. Lina gets sporadic irregular exercise. PAST MEDICAL HISTORY Diagnosis Date Asthma (HCC) Bowel perforation 11/05/2012 C. difficile colitis 04/2016 Closed nondisplaced fracture of proximal phalanx of lesser toe of left foot with routine healing 10/07/2019 COVID-19 03/30/2021 Diabetes mellitus type 2 in obese 10/2013 A1C 6.8% Dyslipidemia 01/02/2019 Essential hypertension 08/11/2015 GERD (gastroesophageal reflux disease) Incisional hernia 06/26/2013 Injury to rectosigmoid colon 10/17/2012 Low HDL (under 40) 10/2013 Nephrolithiasis Osteoarthrosis, unspecified whether generalized or localized, other specified sites Osteoarthritis Bilateral knees Spasm of muscle Tobacco use disorder quit 2012 Unspecified hereditary and idiopathic peripheral neuropathy 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 Ramirez COLONOSCOPY 09/17/2022 repeat in 10 years EGD 09/17/2022 HERNIA REPAIR HX 06/22/2013 HYSTERECTOMY HX 2011 fistula with intestine HYSTEROSCOPY, DIAGNOSTIC (SEPARATE Hysteroscopy/Novasure LAP HYSTERECTOMY FOR UTERUS 250G OR LESS 10/09/2012 with vaginal sling, LSO, right salpingectomy LAPS ABD PRTMANDOMENTUM DX W/WO SPEC BR/WA SPX Laparoscopy LAPS REPAIR HERNIA EXCEPT INCAL/INGUN REDUCIBLE 05/2017 LIG/TRNSXJ FLP TUBE ABDL/VAG APPR UNI/BI 2001 Tubal ligation PAST SURGICAL HISTORY OF 01/30/2005 Left shoulder arthroscopy and debridement PAST SURGICAL HISTORY OF 02/2004 3rd toe left foot PAST SURGICAL HISTORY OF 03/14/2010 right total knee replacement PAST SURGICAL HISTORY OF 03/14/2009 left total knee replacement PAST SURGICAL HISTORY OF 01/23/2013 Ileostomy closure. PAST SURGICAL HISTORY OF Left 01/06/2016 left ring trigger release RPR 1ST INCAL/VNT HERNIA INCARCERATED 06/22/2013 at ileostomy site - 11x[address] mesh RPR RECRT INCAL/VNT HERNIA INCARCERATED 07/23/2014 at midline' RPR RECRT INCAL/VNT HERNIA INCARCERATED 10/11/2014 - recurrent small bowel resection, enterotomy Social History Tobacco Use Smoking status: Former (more content not included)...[facility]06-11-2025 History of Present illness Narrative* Jese Zheng, DO - 12/30/2024 3:02 PM EDT Patient presents with: F/U 3 Month HPI: Lina Isaac is a 59 year old female who presents to the office today for review of health conditions. Concerns today: Need for tdap vaccine, willing to have this done Trigger finger, right hand, has been seen by Orthopedics. Pain is getting worse, using ibuprofen and icing and heating the hand to try to help it. Surgeon needs A1c 9% or lower to do surgery. She is struggling with severity of symptoms with pain at night- no longer getting benefit from ibuprofen ortylenol or use of ice or heating pad and topical Voltaren. She has taken [place] with relief when pain is severe. Right ear discomfort, coming and going the last few days, no fevers or drainage Ms. Isaac has past history of diabetes. Since our last visit she denies excessive thirst or increased frequency of urination, chest pain or dyspnea , new or unusual visual symptoms, and low sugar/hypoglycemic reactions. Depression- no. Follows a diabetic diet most of the time. She is compliant with medication(s) and is tolerating med(s) without any side effects. She reports checking her glucose on a CGM schedule with sugars in the <200 range. Patient's last HgA1C was Hemoglobin A1C (%) Date Value 07/20/2024 10.5 03/19/2024 9.1 08/14/2021 11.2 05/09/2021 12.1 Hemoglobin A1C (POCT) (%) Date Value 09/23/2024 11.2 11/27/2023 9.3 ) Last Ophthalmology exam was within the past 12 months Ms. Isaac reports history of hyperlipidemia. Current therapy includes atorvastatin (Lipitor) 40 mg.Denies side effects of muscle weakness or achiness. Her most recent lipid panels are reviewed. Cholesterol, Total (mg/dL) Date Value 03/19/2024 172 05/09/2021 205 HDL Cholesterol (mg/dL) Date Value 03/19/2024 40 05/09/2021 54 LDL Cholesterol, Calculated (mg/dL) Date Value 03/19/2024 102 05/09/2021 127 LDL Cholesterol Calculated, Nonfasting (mg/dL) Date Value 02/19/2023 152 Triglyceride (mg/dL) Date Value 03/19/2024 150 05/09/2021 120 Ms. Isaac indicates a history of hypertension and states that she is feeling well and denies any symptoms referable to elevated blood pressure. Specifically denies headache, chest pain, palpitations,dyspnea, and peripheral edema. Patient denies any side effects of her medication(s) and is compliant with their regimen. Last 3 Encounter BP Readings: Date: BP: 12/30/2024 120/70 12/10/2024 120/70 09/23/2024 134/64 She watches her diet for sodium, low fat and low cholesterol some of the time. She does not check BP's generally. Lina gets sporadic irregular exercise. PAST MEDICAL HISTORY Diagnosis Date Asthma (HCC) Bowel perforation 11/05/2012 C. difficile colitis 04/2016 Closed nondisplaced fracture of proximal phalanx of lesser toe of left foot with routine healing 10/07/2019 COVID-19 03/30/2021 Diabetes mellitus type 2 in obese 10/2013 A1C 6.8% Dyslipidemia 01/02/2019 Essential hypertension 08/11/2015 GERD (gastroesophageal reflux disease) Incisional hernia 06/26/2013 Injury to rectosigmoid colon 10/17/2012 Low HDL (under 40) 10/2013 Nephrolithiasis Osteoarthrosis, unspecified whether generalized or localized, other specified sites Osteoarthritis Bilateral knees Spasm of muscle Tobacco use disorder quit 2012 Unspecified hereditary and idiopathic peripheral neuropathy 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 Ramirez COLONOSCOPY 09/17/2022 repeat in 10 years EGD 09/17/2022 HERNIA REPAIR HX 06/22/2013 HYSTERECTOMY HX 2012 fistula with intestine HYSTEROSCOPY, DIAGNOSTIC (SEPARATE Hysteroscopy/Novasure LAP HYSTERECTOMY FOR UTERUS 250G OR LESS 10/09/2012 with vaginal sling, LSO, right salpingectomy LAPS ABD PRTM&OMENTUM DX W/WO SPEC BR/WA SPX Laparoscopy LAPS REPAIR HERNIA EXCEPT INCAL/INGUN REDUCIBLE 05/2017 LIG/TRNSXJ FLP TUBE ABDL/VAG APPR UNI/BI 2001 Tubal ligation PAST SURGICAL HISTORY OF 01/30/2005 Left shoulder arthroscopy and debridement PAST SURGICAL HISTORY OF 02/2004 3rd toe left foot PAST SURGICAL HISTORY OF 03/14/2010 right total knee replacement PAST SURGICAL HISTORY OF 03/14/2009 left total knee replacement PAST SURGICAL HISTORY OF 01/23/2013 Ileostomy closure. PAST SURGICAL HISTORY OF Left 01/06/2016 left ring trigger release RPR 1ST INCAL/VNT HERNIA INCARCERATED 06/22/2013 at ileostomy site - 11x[address] \mesh RPR RECRT INCAL/VNT HERNIA INCARCERATED 07/23/2014 at midline' RPR RECRT INCAL/VNT HERNIA INCARCERATED 10/11/2014 - recurrent small bowel resection, enterotomy Social History Tobacco Use Smoking status: Former Current packs/day: 0.00 Average packs/day: 0.5 packs/day for 24.0 years (12.0 ttl pk-yrs) Types: Cigarettes Start date: 05/13/1989 Quit date: 05/13/2013 Years since quittin.6 Smokeless tobacco: Never Vaping Use Vaping status: Never Used Substance Use Topics Alcohol use: No Drug use: No FAMILY HISTORY Problem Relation Age of Onset Hypertension Mother Diabetes Mother Cancer Maternal Uncle throat cancer Hypertension Sister Diabetes Sister other (hyperlipidemia) Sister Allergies: ALLERGIES Allergen Reactions Omnicef [Cefdinir] Itching Vaginitis severe Proventil [Albutero* Vomiting Can not tolerate generic albuterol 08/22/12 - MEM. Tramadol Hives Current Meds: lisinopril (ZESTRIL) 10 mg tablet Take 1 tablet by mouth once daily. empagliflozin (JARDIANCE) 10 mg tablet Take 1 tablet by mouth daily with breakfast. dulaglutide (TRULICITY) 4.5 mg/0.5 mL pen injector Inject 4.5 mg subcutaneously one time a week. albuterol HFA (VENTOLIN HFA) 90 mcg/actuation inhaler Inhale 2 puffs as instructed every 4 hours asneeded. For wheezing/shortness of breath. ibuprofen (MOTRIN) 800 mg tablet TAKE 1 TABLET BY MOUTH EVERY 8 HOURS NEEDED FOR PAIN WITH FOOD insulin degludec (TRESIBA FLEXTOUCH U-200) 200 unit/mL (3 mL) injection Inject 112 Units subcutaneously daily at bedtime. insulin aspart U-100 (NOVOLOG U-100 INSULIN ASPART) 100 unit/mL Inject 20 units subcutaneously as directed plus sliding scale with meals. (Max 96 units/day) levalbuterol tartrate HFA (XOPENEX HFA) 45 mcg/actuation inhaler Inhale 1-2 Puffs as instructed every 4 hours as needed for wheezing/shortness of breath. atorvastatin (LIPITOR) 40 mg tablet Take 1 tablet by mouth once daily. ergocalciferol 50,000 unit capsule (VITAMIN D2, DRISDOL) Take 1 capsule by mouth one time a week. mupirocin (BACTROBAN) 2 % ointment Apply to affected area every 12 hours as needed (rash, skin lesions). flash glucose sensor ([employer] AnalyticsSTYLE MICHI 14 DAY SENSOR) kit Apply sensor to back of arm to check bloodsugars as directed. Change sensor every 2 weeks and rotate arms. aspirin, enteric coated (ASPIRIN, ENTERIC COATED) 81 mg EC tablet Take 1 tablet by mouth once daily. famotidine (PEPCID) 20 mg tablet Take 1 tablet by mouth two times a day. Blood-Glucose Sensor (FREESTYLE MICHI 3 PLUS SENSOR) ingrid Use to monitor glucose continuously and replace sensor every 15 days metFORMIN (GLUCOPHAGE) 1,000 mg tablet Take 1 tablet by mouth two times a day. cyanocobalamin (VITAMIN B-12) 1,000 mcg tab Take 2 tablets by mouth once daily. Calcium Citrate-Vitamin D3 (CITRACAL+D) 315 mg-6.25 mcg (250 unit) tab Take 1 tablet by mouth once daily. benzonatate (TESSALON PERLES) 100 mg capsule Take 1 capsule by mouth three times a day as needed for cough. Oral Medication Containers (SHARPS CONTAINER[place] [facility] [place] as directed. flash glucose scanning reader (FREESTYLE MICHI 3 READER) Use to monitor blood glucose continuously Insulin [place], Disposable, (UNIFINE PENTIPS) 31 gauge x 3/16 Use as directed 4 times daily with insulin FLUoxetine (PROZAC) 20 mg capsule Take 1 capsule by mouth once daily. In the morning, for depression gabapentin (NEURONTIN) 100 mg capsule Take 1-2 capsules by mouth daily at bedtime for 30 days. For foot pain alcohol swabs (BD SINGLE USE SWABS REGULAR) Use as directed 4 to 5 times daily to check blood sugars and with insulin injections diclofenac (VOLTAREN ARTHRITIS PAIN) 1 % topical gel Apply 2 g to affected area four times daily. glucagon (BAQSIMI) 3 mg/actuation nasal spray Use 1 [place] in the nose as needed for low blood sugar. May repeat after 15 minutes using a new device if there is no response. polyethylene glycol 3350 (MIRALAX) 17 gram/dose powder 1 capful daily in the morning blood sugar diagnostic (FREESTYLE PRECISION JEREMIAS STRIPS) test strip Use to test blood sugar up to twice daily as instructed. Dx: insulin-dependent DM Review of Systems: The remainder of the review of systems is negative. PE: 12/30/24 1457 BP: 120/70 Pulse: 80 Resp: 16 Temp: 36 C (96.8 F) TempSrc: Left Tympanic Weight: 93 kg (205 lb) Gen: A&O, NAD, non-toxic appearing, cooperative HEENT: NT/AC, PERRLA, wearing glasses, EOMs intact b/l, nares clear and patent b/l, pharynx withouterythema, exudate or lesions. MMM, Uvula midline. EACs with erythema on right, normal on left EAC. TMs pearly julien with intact landmarks b/l. Neck: supple, No cervical LAD, no thyromegaly, no carotid bruits CV: RRR, normal S1 and S2, no murmurs, no gallops, no rubs, Pulses 2+ and symmetric in UE and LE b/l Lungs: normal respiratory effort, + Rhonchi bases Abd: soft, overweight, NT, ND, +BS, no hepatosplenomegaly MS: trigger finger right hand with severe associated pain and localized swelling and limited 3rd finger Neuro: CN II-XII intact b/l, strength 5/5 b/l UE and LE, DTRs 2/4 UE and LE, sensation intact. Skin: warm, dry, intact, No rashes or lesions on exposed skin. Foot exam: Monofilament wnl on right and left feet. No edema, normal pulses ASSESSMENT/PLAN: 1. Type 2 diabetes mellitus without complication, with long-term current use of insulin (HCC) - ICD9: 250.00, V58.67, ICD10: E11.9, Z79.4 (primary diagnosis) -improved but not controlled yet, continue follow up with pharmacist and same medications\ - HEMOGLOBIN A1C (POC) 2. Trigger middle finger of right hand - ICD9: 727.03, ICD10: M65.331 rx for severe pain only until able to have better controlled diabetes in order to have surgical intervention She is only using for severe pain - HYDROCODONE 5 MG-ACETAMINOPHEN 325 MG TABLET 3. Right hand pain - ICD9: 729.5, ICD10: M79.641 rx for severe pain only until able to have better controlled diabetes in order to have surgical intervention She is only using for severe pain - HYDROCODONE 5 MG-ACETAMINOPHEN 325 MG TABLET 4. Dysuria - ICD9: 788.1, ICD10: R30.0 - URINALYSIS (WITH MICROSCOPIC) WITH CULTURE IF INDICATED 5. Dyslipidemia - ICD9: 272.4, ICD10: E78.5 - Uncontrolled - Continue current medications - Counseled on healthy diet and regular exercise 6. Essential hypertension - ICD9: 401.9, ICD10: I10 - Controlled - Continue current medications - Recommend home blood pressure monitoring, to bring results to next visit - Encouraged sodium restriction, DASH or Mediterranean diet - Recommend regular aerobic exercise Jese Zheng DO PDMP website checked and validated. All prescriptions have been APPROPRIATELY filled. No suspiciousactivity was identified. 12/30/2024 by Jese Zheng DO To ER if develops chest pain, shortness of breath, or severe worsening of symptoms. Discussed risks, benefits, alternatives, and potential side effects of medications. Patient expressed understanding and agreed with the plan. Jese Zheng DO [address] [place] [address] [facility]25 NoteHNO ID: [id number] Author: VALERY PURI RDMS Service: ? Author Type: Head Men'S Tennis Coach Type: Progress Notes Filed: 12/11/2024 08:17 Note Text: Radiology Service Progress Note PATIENT NAME: Lina Isaac DATE OF SERVICE: December 11, 2024 TIME: 8:16 AM PATIENT IDENTITY VERIFICATION COMPLETED USING TWO (2) IDENTIFIERS: Name and Date of confirmed by patient verbally. FALL SCREENING: Has the patient had 2 falls in the last year or 1 fall with injury or currently using an Ambulatory Assistive Device (Walker, Cane, Wheelchair, Crutches, etc.)? No PATIENT GENDER DATA: Assigned female at . status: : No status: NO. PATIENT RELEVANT IMPLANT DATA REVIEWED: Not Applicable PATIENT PRESENTS WITH AN IMPLANTABLE OR ATTACHED MATERIAL MOVERS: No RADIOLOGY DEPARTMENT: Ultrasound PERIPHERAL IV DATA: Not applicable SIGNED BY: Valery Puri RDMS December 11, 2024 8:16 [facility]05-22-2025 NoteHNO ID: [id number] Author: NATALI KLEIN APRN.PROFESSOR OF PHYSICS Service: ? Author Type: Nurse Practitioner Type: Progress Notes Filed: 12/10/2024 15:05 Note Text: This is a 59 year old female who presents today with: Lina is a 59-year-old female with a history of diabetes, presenting for evaluation of bilateral ankle edema. HISTORY OF PRESENT ILLNESS: Bilateral Ankle Edema: - Persistent edema in bilateral ankles, more pronounced on the left side, x1 week. - Edema does not resolve with elevation or rest. - Describes edema as a big, giant ring, like a donut, all the way around. - Left leg is more tender and swollen; right leg has minimal swelling. - Denies known trauma or injury. - No known history of HTN- questioned why she's on blood pressure meds, explained kidney protectant with her diabetes - Current medications include Jardiance and Lisinopril, jardiance is new prescribed by the pharmacist she is consulting with on diabetes management - History of blood clots per patient, unable to coorelate with prior diagnostics PAST MEDICAL HISTORY: PAST MEDICAL HISTORY Diagnosis Date Asthma (HCC) Bowel perforation 11/05/2012 C. difficile colitis 04/2016 Closed nondisplaced fracture of proximal phalanx of lesser toe of left foot with routine healing 10/07/2019 COVID-19 03/30/2021 Diabetes mellitus type 2 in obese 10/2013 A1C 6.8% Dyslipidemia 01/02/2019 Essential hypertension 08/11/2015 GERD (gastroesophageal reflux disease) Incisional hernia 06/26/2013 Injury to rectosigmoid colon 10/17/2012 Low HDL (under 40) 10/2013 Nephrolithiasis Osteoarthrosis, unspecified whether generalized or localized, other specified sites Osteoarthritis Bilateral knees Spasm of muscle Tobacco use disorder quit 2012 Unspecified hereditary and idiopathic peripheral neuropathy 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 Ramirez COLONOSCOPY 09/17/2022 repeat in 10 years EGD 09/17/2022 HERNIA REPAIR HX 06/22/2013 HYSTERECTOMY HX 2011 fistula with intestine HYSTEROSCOPY, DIAGNOSTIC (SEPARATE Hysteroscopy/Novasure LAP HYSTERECTOMY FOR UTERUS 250G OR LESS 10/09/2012 with vaginal sling, LSO, right salpingectomy LAPS ABD PRTMANDOMENTUM DX W/WO SPEC BR/WA SPX Laparoscopy LAPS REPAIR HERNIA EXCEPT INCAL/INGUN REDUCIBLE 05/2017 LIG/TRNSXJ FLP TUBE ABDL/VAG APPR UNI/BI 2001 Tubal ligation PAST SURGICAL HISTORY OF 01/30/2005 Left shoulder arthroscopy and debridement PAST SURGICAL HISTORY OF 02/2004 3rd toe left foot PAST SURGICAL HISTORY OF 03/14/2010 right total knee replacement PAST SURGICAL HISTORY OF 03/14/2009 left total knee replacement PAST SURGICAL HISTORY OF 01/23/2013 Ileostomy closure. PAST SURGICAL HISTORY OF Left 01/06/2016 left ring trigger release RPR 1ST INCAL/VNT HERNIA INCARCERATED 06/22/2013 at ileostomy site - 11x[address] mesh RPR RECRT INCAL/VNT HERNIA INCARCERATED 07/23/2014 at midline' RPR RECRT INCAL/VNT HERNIA INCARCERATED 10/11/2014 - recurrent small bowel resection, enterotomy ALLERGIES Omnicef [Cefdinir], Proventil [Albuterol Sulfate], and Tramadol MEDICATIONS Current Outpatient Medications Medication Sig lisinopril (ZESTRIL) 10 mg tablet Take 1 tablet by mouth once daily. empagliflozin (JARDIANCE) 10 mg tablet Take 1 tablet by mouth daily with breakfast. dulaglutide (TRULICITY) 4.5 mg/0.5 mL pen injector Inject 4.5 mg subcutaneously one time a week. albuterol HFA (VENTOLIN HFA) 90 mcg/actuation inhaler Inhale 2 puffs as instructed every 4 hours as needed. For wheezing/shortness of breath. ibuprofen (MOTRIN) 800 mg tablet TAKE 1 TABLET BY MOUTH EVERY 8 HOURS NEEDED FOR PAIN WITH FOOD insulin degludec (TRESIBA FLEXTOUCH U-200) 200 unit/mL (3 mL) injection Inject 112 Units subcutaneously daily at bedtime. insulin aspart U-100 (NOVOLOG U-100 INSULIN ASPART) 100 unit/mL Inject 20 units subcutaneously as directed plus sliding scale with meals. (Max 96 units/day) levalbuterol tartrate HFA (XOPENEX HFA) 45 mcg/actuation inhaler Inhale 1-2 Puffs as instructed every 4 hours as needed for wheezing/shortness of breath. atorvastatin (LIPITOR) 40 mg tablet Take 1 tablet by mouth once daily. ergocalciferol 50,000 unit capsule (VITAMIN D2, DRISDOL) Take 1 capsule by mouth one time a week. mupirocin (BACTROBAN) 2 % ointment Apply to affected area every 12 hours as needed (rash, skin lesions). flash glucose sensor (FREESTYLE MICHI 14 DAY SENSOR) kit Apply sensor to back of arm to check blood sugars as directed. Change sensor every 2 weeks and rotate arms. aspirin, enteric coated (ASPIRIN, ENTERIC COATED) 81 mg EC tablet Take 1 tablet by mouth once daily. famotidine (PEPCID) 20 mg tablet Take 1 tablet by mouth two times a day. Blood-Glucose Sen (more content not included)...[facility] 11-26-2024 History of Present illness Narrative* Susana Garcia, [facility] - 11/26/2024 2:30 PM EDT Images from the original note were not included. Primary Care Pharmacy Visit CC (Reason for Consult): (E11.65) Uncontrolled type 2 diabetes mellitus with hyperglycemia (HCC) (primary encounter diagnosis) Goal(s): A1c <7% Last Collaborating Provider Visit: 07/23/[address] Norm Mills Bean Isaac is a 59 year old female presenting for follow up visit in person. Patient consentsto pharmacy collaborative practice agreement. Last Pharmacy Visit: 10/29/24 - Tresiba increased to 112 units daily, Novolog increased to 20 units + sliding scale HPI: Reports doing well States she got set up with new insurance, that is a lot cheaper now than it was before. Has Sean insurance, just a new plan that is a diabetic plan Insulin will be only $15 now which is a lot of cheaper than before Had some extra supply of insulin, thinks some of it was so got rid of that and started new insulins and made sure it was in date and seems to be working better States BGs have been improving Is open to retry starting Jardiance now that new insurance is active (never started previously d/t cost while off insurance) Current DM Medications: Metformin 1000 mg twice daily Trulicity 4.5 mg once weekly on Sundays Tresiba to 112 units once daily Novolog 20 units plus sliding scale before meals 150-200 = add 2 units 200-250 = add 4 units 250-300 = add 6 units 301-350 = add 8 units >350 = add 12 units Previously Trialed DM Meds: Ozempic - GI side effects Jardiance - cost Diet Denies any recent changes GLYCEMIC CONTROL: Glucometer present at visit: Yes Hypoglycemia: No CGM Data Past medical history reviewed. ALLERGIES Allergen Reactions Omnicef [Cefdinir] Itching Vaginitis severe Proventil [Albutero* Vomiting Can not tolerate generic albuterol 08/22/12 - MEM. Tramadol Hives Current Outpatient Medications Medication Sig Dispense Refill albuterol HFA (VENTOLIN HFA) 90 mcg/actuation inhaler Inhale 2 puffs as instructed every 4 hours asneeded. For wheezing/shortness of breath. 18 g 3 ibuprofen (MOTRIN) 800 mg tablet TAKE 1 TABLET BY MOUTH EVERY 8 HOURS NEEDED FOR PAIN WITH FOOD 60 tablet 1 insulin degludec (TRESIBA FLEXTOUCH U-200) 200 unit/mL (3 mL) injection Inject 112 Units subcutaneously daily at bedtime. 18 mL 11 insulin aspart U-100 (NOVOLOG U-100 INSULIN ASPART) 100 unit/mL Inject 20 units subcutaneously as directed plus sliding scale with meals. (Max 96 units/day) 30 mL 11 levalbuterol tartrate HFA (XOPENEX HFA) 45 mcg/actuation inhaler Inhale 1-2 Puffs as instructed every 4 hours as needed for wheezing/shortness of breath. 1 Each 1 dulaglutide (TRULICITY) 4.5 mg/0.5 mL pen injector Inject 4.5 mg subcutaneously one time a week. 6 mL 4 atorvastatin (LIPITOR) 40 mg tablet Take 1 tablet by mouth once daily. 90 tablet 3 ergocalciferol 50,000 unit capsule (VITAMIN D2, DRISDOL) Take 1 capsule by mouth one time a week. 12 capsule 3 mupirocin (BACTROBAN) 2 % ointment Apply to affected area every 12 hours as needed (rash, skin lesions). 66 g 2 flash glucose sensor ([employer]STYLE MICHI 14 DAY SENSOR) kit Apply sensor to back of arm to check bloodsugars as directed. Change sensor every 2 weeks and rotate arms. 6 Each 3 aspirin, enteric coated (ASPIRIN, ENTERIC COATED) 81 mg EC tablet Take 1 tablet by mouth once daily. 90 tablet 3 famotidine (PEPCID) 20 mg tablet Take 1 tablet by mouth two times a day. 180 tablet 3 Blood-Glucose Sensor (FREESTYLE MICHI 3 PLUS SENSOR) ingrid Use to monitor glucose continuously and replace sensor every 15 days 6 Each 3 metFORMIN (GLUCOPHAGE) 1,000 mg tablet Take 1 tablet by mouth two times a day. 180 tablet 3 cyanocobalamin (VITAMIN B-12) 1,000 mcg tab Take 2 tablets by mouth once daily. 180 tablet 1 lisinopril (ZESTRIL) 10 mg tablet Take 1 tablet by mouth once daily. 90 tablet 3 Calcium Citrate-Vitamin D3 (CITRACAL+D) 315 mg-6.25 mcg (250 unit) tab Take 1 tablet by mouth once daily. 30 tablet 3 benzonatate (TESSALON PERLES) 100 mg capsule Take 1 capsule by mouth three times a day as needed for cough. 30 capsule 1 Oral Medication Containers (SHARPS CONTAINER) [facility] [place] as directed. 1 Each 0 flash glucose scanning reader (FREESTYLE MICHI 3 READER) Use to monitor blood glucose continuously 1 Each 0 Insulin [place], Disposable, (UNIFINE PENTIPS) 31 gauge x 3/16 Use as directed 4 times daily with insulin 400 Each 3 FLUoxetine (PROZAC) 20 mg capsule Take 1 capsule by mouth once daily. In the morning, for depression 90 capsule 1 gabapentin (NEURONTIN) 100 mg capsule Take 1-2 capsules by mouth daily at bedtime for 30 days. For foot pain 60 capsule 5 alcohol swabs (BD SINGLE USE SWABS REGULAR) Use as directed 4 to 5 times daily to check blood sugars and with insulin injections 360 Each 3 diclofenac (VOLTAREN ARTHRITIS PAIN) 1 % topical gel Apply 2 g to affected area four times daily. 100 g 1 glucagon (BAQSIMI) 3 mg/actuation nasal spray Use 1 [place] in the nose as needed for low blood sugar. May repeat after 15 minutes using a new device if there is no response. 1 Each 3 polyethylene glycol 3350 (MIRALAX) 17 gram/dose powder 1 capful daily in the morning 1700 g 3 blood sugar diagnostic (FREESTYLE PRECISION JEREMIAS STRIPS) test strip Use to test blood sugar up to twice daily as instructed. Dx: insulin-dependent DM 50 Strip 11 No current facility-administered medications for this visit. Pill bottles are not present. Adherence: denies missed doses. Rx coverage: Payor: SEAN / Plan: SEAN DEL CID / Product Type: EPO / Medications affordable? Yes PHARMACOTHERAPY PREVENTATIVE MEDS: On JANNIE/ARB: Yes On Statin: Yes On ASA: Yes EXAM: LMP 08/30/2012 Last 3 Encounter BP Readings: Date: BP: 09/23/2024 134/64 06/23/2024 138/80 03/17/2024 136/80 Wt: 93.4 kg (206 lb) BMI: 31.32 kg/(m^2) LABS: Lab Results Component Value Date HBA1C 11.2 09/23/2024 HBA1C 10.5 07/20/2024 HBA1C 9.1 03/19/2024 HBA1C 9.3 11/27/2023 HBA1C 11.2 08/27/2023 HBA1C 11.4 05/27/2023 HBA1C 11.2 08/14/2021 HBA1C 12.1 05/09/2021 HBA1C 10.3 08/05/2020 Glucose 212 03/19/2024 BUN 7 03/19/2024 Creatinine, Whole Blood (iSTAT) 0.47 03/19/2024 Sodium 142 03/19/2024 Potassium 4.1 03/19/2024 Chloride 106 03/19/2024 CO2 26 03/19/2024 Protein, Total 6.8 03/19/2024 Albumin 4.1 03/19/2024 Calcium 9.1 03/19/2024 Alkaline Phosphatase 76 03/19/2024 Bilirubin, Total 0.7 03/19/2024 AST 15 03/19/2024 ALT 15 03/19/2024 Lab Results Component Value Date CHOL 172 03/19/2024 CHOL 205 05/09/2021 LDL 102 03/19/2024 LDL 152 02/19/2023 LDL 127 05/09/2021 HDL 40 03/19/2024 HDL 54 05/09/2021 TG 150 03/19/2024 TG 120 05/09/2021 Albumin/Creat Ratio (mg/g) Date Value 03/19/2024 26 eGFR-All Other Races (.) Date Value 05/09/2021 >60 Estimated Glomerular Filtration Rate (mL/min/1.73m ) Date Value 03/19/2024 110 ASSESSMENT/PLAN: 1. Uncontrolled type 2 diabetes mellitus with hyperglycemia (HCC) - ICD9: 250.02, ICD10: E11.65 - Improving control - Start Jardiance 10 mg once daily - Continue all other medications as currently prescribed - Statin prescribed - atorvastatin - Blood glucose monitoring on a continuous glucose monitoring schedule - Counseled on healthy diet and regular exercise - Discussed diabetic education issues of hypoglycemic/hyperglycemic symptoms and medication-specific side effects and monitoring - Follow up in 2 months, sooner should any other issues arise. Overdue Diabetes Health Maintenance: Health Maintenance - Diabetes Topic Date Due Dilated Retinal Exam 10/29/2024 Follow Up: Next PCP visit: 12/30/24 Next PharmD visit: 01/21/25 Susana Garcia, PharmD, BCACP Primary Care Clinical Wood Furniture [employer]er I spent a total of 30 minutes on the date of the service which included preparing to see the patient, [id number] patient care, completing clinical documentation, counseling and educating the patient/family/caregiver, and ordering medications, tests, or procedures. documented [facility] Instructions* Patient Instructions* Susana Garcia RPh - 11/26/2024 2:30 PM EDT Start Jardiance 10 mg once daily Continue all other medications: Metformin 1000 mg twice daily Trulicity 4.5 mg once weekly on Sundays [place] to 112 units once daily Novolog 20 units plus sliding scale before meals 150-200 = add 2 units 200-250 = add 4 units 250-300 = add 6 units 301-350 = add 8 units >350 = add 12 units documented in this encounterG[facility]05-[facility]-2025 NoteHNO ID: [id number] Author: SUSANA GARCIA RPh Service: ? Author Type: Pharmacist Type: Progress Notes Filed: 11/26/2024 15:22 Note Text: Primary Care Pharmacy Visit CC (Reason for Consult): (E11.65) Uncontrolled type 2 diabetes mellitus with hyperglycemia (HCC) (primary encounter diagnosis) Goal(s): A1c <7% Last Collaborating Provider Visit: 07/23/[address] Norm Mills Bean Isaac is a 59 year old female presenting for follow up visit in person. Patient consents to pharmacy collaborative practice agreement. Last Pharmacy Visit: 10/29/24 - Tresiba increased to 112 units daily, Novolog increased to 20 units + sliding scale HPI: Reports doing well States she got set up with new insurance, that is a lot cheaper now than it was before. Has Sean insurance, just a new plan that is a diabetic plan Insulin will be only $15 now which is a lot of cheaper than before Had some extra supply of insulin, thinks some of it was so got rid of that and started new insulins and made sure it was in date and seems to be working better States BGs have been improving Is open to retry starting Jardiance now that new insurance is active (never started previously d/t cost while off insurance) Current DM Medications: Metformin 1000 mg twice daily Trulicity 4.5 mg once weekly on Sundays Tresiba to 112 units once daily Novolog 20 units plus sliding scale before meals 150-200 = add 2 units 200-250 = add 4 units 250-300 = add 6 units 301-350 = add 8 units >350 = add 12 units Previously Trialed DM Meds: Ozempic - GI side effects Jardiance - cost Diet Denies any recent changes GLYCEMIC CONTROL: Glucometer present at visit: Yes Hypoglycemia: No CGM Data Past medical history reviewed. ALLERGIES Allergen Reactions Omnicef [Cefdinir] Itching Vaginitis severe Proventil [Albutero* Vomiting Can not tolerate generic albuterol 08/22/12 - MEM. Tramadol Hives Current Outpatient Medications Medication Sig Dispense Refill albuterol HFA (VENTOLIN HFA) 90 mcg/actuation inhaler Inhale 2 puffs as instructed every 4 hours as needed. For wheezing/shortness of breath. 18 g 3 ibuprofen (MOTRIN) 800 mg tablet TAKE 1 TABLET BY MOUTH EVERY 8 HOURS NEEDED FOR PAIN WITH FOOD 60 tablet 1 insulin degludec (TRESIBA FLEXTOUCH U-200) 200 unit/mL (3 mL) injection Inject 112 Units subcutaneously daily at bedtime. 18 mL 11 insulin aspart U-100 (NOVOLOG U-100 INSULIN ASPART) 100 unit/mL Inject 20 units subcutaneously as directed plus sliding scale with meals. (Max 96 units/day) 30 mL 11 levalbuterol tartrate HFA (XOPENEX HFA) 45 mcg/actuation inhaler Inhale 1-2 Puffs as instructed every 4 hours as needed for wheezing/shortness of breath. 1 Each 1 dulaglutide (TRULICITY) 4.5 mg/0.5 mL pen injector Inject 4.5 mg subcutaneously one time a week. 6 mL 4 atorvastatin (LIPITOR) 40 mg tablet Take 1 tablet by mouth once daily. 90 tablet 3 ergocalciferol 50,000 unit capsule (VITAMIN D2, DRISDOL) Take 1 capsule by mouth one time a week. 12 capsule 3 mupirocin (BACTROBAN) 2 % ointment Apply to affected area every 12 hours as needed (rash, skin lesions). 66 g 2 flash glucose sensor (FREESTYLE MICHI 14 DAY SENSOR) kit Apply sensor to back of arm to check blood sugars as directed. Change sensor every 2 weeks and rotate arms. 6 Each 3 aspirin, enteric coated (ASPIRIN, ENTERIC COATED) 81 mg EC tablet Take 1 tablet by mouth once daily. 90 tablet 3 famotidine (PEPCID) 20 mg tablet Take 1 tablet by mouth two times a day. 180 tablet 3 Blood-Glucose Sensor (FREESTYLE MICHI 3 PLUS SENSOR) ingrid Use to monitor glucose continuously and replace sensor every 15 days 6 Each 3 metFORMIN (GLUCOPHAGE) 1,000 mg tablet Take 1 tablet by mouth two times a day. 180 tablet 3 cyanocobalamin (VITAMIN B-12) 1,000 mcg tab Take 2 tablets by mouth once daily. 180 tablet 1 lisinopril (ZESTRIL) 10 mg tablet Take 1 tablet by mouth once daily. 90 tablet 3 Calcium Citrate-Vitamin D3 (CITRACAL+D) 315 mg-6.25 mcg (250 unit) tab Take 1 tablet by mouth once daily. 30 tablet 3 benzonatate (TESSALON PERLES) 100 mg capsule Take 1 capsule by mouth three times a day as needed for cough. 30 capsule 1 Oral Medication Containers (SHARPS CONTAINER[place] [facility] [place] as directed. 1 Each 0 flash glucose scanning reader (FREESTYLE MICHI 3 READER) Use to monitor blood glucose continuously 1 Each 0 Insulin [place], Disposable, (UNIFINE PENTIPS) 31 gauge x 3/16 Use as directed 4 times daily with insulin 400 Each 3 FLUoxetine (PROZAC) 20 mg capsule Take 1 capsule by mouth once daily. In the morning, for depression 90 capsule 1 gabapentin (NEURONTIN) 100 mg capsule Take 1-2 capsules by mouth daily at bedtime for 30 days. For foot pain 60 capsule 5 alcohol swabs (BD SINGLE USE SWABS REGULAR) Use as directed 4 to 5 times daily to check blood sugars and with insulin injections 360 Each 3 diclofenac (VOLTARE (more content not included)...[facility] 11-16-2024 Telephone encounter Note* Telephone Encounter - Fabiana Cook LPN - 11/16/2024 2:23 PM EDT Patient has been identified by name and date of : Patient phones for refill(s): Requested Prescriptions Pending Prescriptions Disp Refills albuterol HFA (VENTOLIN HFA) 90 mcg/actuation inhaler 18 g 3 Sig: Inhale 2 puffs as instructed every 4 hours as needed. For wheezing/shortness of breath. ibuprofen (MOTRIN) 800 mg tablet 60 tablet 1 Sig: TAKE 1 TABLET BY MOUTH EVERY 8 HOURS NEEDED FOR PAIN WITH FOOD Date of last office visit in primary care: 09/23/2024 Date of next office visit in primary care: 12/30/2024 Please advise. Thank you. Fabiana Cook LPN. [facility]04-28-[facility] Miscellaneous Notes* Telephone Encounter - Fabiana Ponce LPN - 11/16/2024 2:23 PM EDT Patient has been identified by name and date of : Patient phones for refill(s): Requested Prescriptions Pending Prescriptions Disp Refills albuterol HFA (VENTOLIN HFA) 90 mcg/actuation inhaler 18 g 3 Sig: Inhale 2 puffs as instructed every 4 hours as needed. For wheezing/shortness of breath. ibuprofen (MOTRIN) 800 mg tablet 60 tablet 1 Sig: TAKE 1 TABLET BY MOUTH EVERY 8 HOURS NEEDED FOR PAIN WITH FOOD Date of last office visit in primary care: 09/23/2024 Date of next office visit in primary care: 12/30/2024 Please advise. Thank you. Fabiana Cook LPN. documented in this encounterG[facility]04-10-2025 History of Present illness Narrative* Susana Garcia [facility] - 10/29/2024 2:30 PM EDT Images from the original note were not included. Primary Care Pharmacy Visit CC (Reason for Consult): (E11.65) Uncontrolled type 2 diabetes mellitus with hyperglycemia (HCC) (primary encounter diagnosis) Goal(s): A1c <7% Last Collaborating Provider Visit: 07/23/[address] Norm Del Angel Poncho is a 59 year old female presenting for follow up visit in person. Patient consentsto pharmacy collaborative practice agreement. Last Pharmacy Visit: 07/23/24 - Jardiance started, Novolog increased HPI: Reports doing okay Still having a lot of pain with her trigger finger, has not been able to have her surgery yet because of her BGs being uncontrolled States BGs have been higher lately Was not able to start Jardiance due to cost, was $600 for a month supply Last medications cost $1700 for all medicines and insulins, cannot afford to continue with this cost moving forward; getting Michi sensors for $75/month supply In the process of switching an affordable insurance since no longer has Sean out of nowhere Current DM Medications: Metformin 1000 mg twice daily Trulicity 4.5 mg once weekly on Sundays Jardiance 10 mg once daily - not taking (cost) Tresiba U200 120 units once daily every morning - taking 102 units once daily Novolog 18 units + sliding scale with meals - taking 20 units + sliding scale 200-230 = add 2 units 230-260 = add 4 units 260-300 = add 6 units >300 = add 8 units Previously Trialed DM Meds: Ozempic - GI side effects GLYCEMIC CONTROL: Glucometer present at visit: Yes Hypoglycemia: No CGM Data Past medical history reviewed. ALLERGIES Allergen Reactions Omnicef [Cefdinir] Itching Vaginitis severe Proventil [Albutero* Vomiting Can not tolerate generic albuterol 08/22/12 - MEM. Tramadol Hives Current Outpatient Medications Medication Sig Dispense Refill levalbuterol tartrate HFA (XOPENEX HFA) 45 mcg/actuation inhaler Inhale 1-2 Puffs as instructed every 4 hours as needed for wheezing/shortness of breath. 1 Each 1 ibuprofen (MOTRIN) 800 mg tablet TAKE 1 TABLET BY MOUTH EVERY 8 HOURS NEEDED FOR PAIN WITH FOOD 60 tablet 1 empagliflozin (JARDIANCE) 10 mg tablet Take 1 tablet by mouth daily with breakfast. 30 tablet 2 dulaglutide (TRULICITY) 4.5 mg/0.5 mL pen injector Inject 4.5 mg subcutaneously one time a week. 6 mL 4 insulin aspart U-100 (NOVOLOG U-100 INSULIN ASPART) 100 unit/mL Inject 18 units subcutaneously as directed plus sliding scale with meals. (Max 80 units/day) 30 mL 11 insulin degludec (TRESIBA FLEXTOUCH U-200) 200 unit/mL (3 mL) injection Inject 120 Units subcutaneously daily at bedtime. 27 mL 11 albuterol HFA (VENTOLIN HFA) 90 mcg/actuation inhaler Inhale 2 Puffs as instructed every 4 hours asneeded. For wheezing/shortness of breath. 18 g 3 atorvastatin (LIPITOR) 40 mg tablet Take 1 tablet by mouth once daily. 90 tablet 3 ergocalciferol 50,000 unit capsule (VITAMIN D2, DRISDOL) Take 1 capsule by mouth one time a week. 12 capsule 3 mupirocin (BACTROBAN) 2 % ointment Apply to affected area every 12 hours as needed (rash, skin lesions). 66 g 2 flash glucose sensor (FREESTYLE MICHI 14 DAY SENSOR) kit Apply sensor to back of arm to check bloodsugars as directed. Change sensor every 2 weeks and rotate arms. 6 Each 3 aspirin, enteric coated (ASPIRIN, ENTERIC COATED) 81 mg EC tablet Take 1 tablet by mouth once daily. 90 tablet 3 famotidine (PEPCID) 20 mg tablet Take 1 tablet by mouth two times a day. 180 tablet 3 Blood-Glucose Sensor (FREESTYLE MICHI 3 PLUS SENSOR) ingrid Use to monitor glucose continuously and replace sensor every 15 days 6 Each 3 metFORMIN (GLUCOPHAGE) 1,000 mg tablet Take 1 tablet by mouth two times a day. 180 tablet 3 cyanocobalamin (VITAMIN B-12) 1,000 mcg tab Take 2 tablets by mouth once daily. 180 tablet 1 lisinopril (ZESTRIL) 10 mg tablet Take 1 tablet by mouth once daily. 90 tablet 3 Calcium Citrate-Vitamin D3 (CITRACAL+D) 315 mg-6.25 mcg (250 unit) tab Take 1 tablet by mouth once daily. 30 tablet 3 benzonatate (TESSALON PERLES) 100 mg capsule Take 1 capsule by mouth three times a day as needed for cough. 30 capsule 1 Oral Medication Containers (SHARPS CONTAINER) [facility] [place] as directed. 1 Each 0 flash glucose scanning reader (FREESTYLE MICHI 3 READER) Use to monitor blood glucose continuously 1 Each 0 Insulin [place], Disposable, (UNIFINE PENTIPS) 31 gauge x 3/16 Use as directed 4 times daily with insulin 400 Each 3 FLUoxetine (PROZAC) 20 mg capsule Take 1 capsule by mouth once daily. In the morning, for depression 90 capsule 1 gabapentin (NEURONTIN) 100 mg capsule Take 1-2 capsules by mouth daily at bedtime for 30 days. For foot pain 60 capsule 5 alcohol swabs (BD SINGLE USE SWABS REGULAR) Use as directed 4 to 5 times daily to check blood sugars and with insulin injections 360 Each 3 diclofenac (VOLTAREN ARTHRITIS PAIN) 1 % topical gel Apply 2 g to affected area four times daily. 100 g 1 glucagon (BAQSIMI) 3 mg/actuation nasal spray Use 1 [place] in the nose as needed for low blood sugar. May repeat after 15 minutes using a new device if there is no response. 1 Each 3 polyethylene glycol 3350 (MIRALAX) 17 gram/dose powder 1 capful daily in the morning 1700 g 3 blood sugar diagnostic (FREESTYLE PRECISION JEREMIAS STRIPS) test strip Use to test blood sugar up to twice daily as instructed. Dx: insulin-dependent DM 50 Strip 11 No current facility-administered medications for this visit. Pill bottles are not present. Adherence: denies missed doses. Rx coverage: No coverage found. Medications affordable? No PHARMACOTHERAPY PREVENTATIVE MEDS: On JANNIE/ARB: Yes On Statin: Yes On ASA: Yes EXAM: LMP 08/30/2012 Last 3 Encounter BP Readings: Date: BP: 09/23/2024 134/64 06/23/2024 138/80 03/17/2024 136/80 Wt: 93.4 kg (206 lb) BMI: 31.32 kg/(m^2) LABS: Lab Results Component Value Date HBA1C 11.2 09/23/2024 HBA1C 10.5 07/20/2024 HBA1C 9.1 03/19/2024 HBA1C 9.3 11/27/2023 HBA1C 11.2 08/27/2023 HBA1C 11.4 05/27/2023 HBA1C 11.2 08/14/2021 HBA1C 12.1 05/09/2021 HBA1C 10.3 08/05/2020 Glucose 212 03/19/2024 BUN 7 03/19/2024 Creatinine, Whole Blood (iSTAT) 0.47 03/19/2024 Sodium 142 03/19/2024 Potassium 4.1 03/19/2024 Chloride 106 03/19/2024 CO2 26 03/19/2024 Protein, Total 6.8 03/19/2024 Albumin 4.1 03/19/2024 Calcium 9.1 03/19/2024 Alkaline Phosphatase 76 03/19/2024 Bilirubin, Total 0.7 03/19/2024 AST 15 03/19/2024 ALT 15 03/19/2024 Lab Results Component Value Date CHOL 172 03/19/2024 CHOL 205 05/09/2021 LDL 102 03/19/2024 LDL 152 02/19/2023 LDL 127 05/09/2021 HDL 40 03/19/2024 HDL 54 05/09/2021 TG 150 03/19/2024 TG 120 05/09/2021 Albumin/Creat Ratio (mg/g) Date Value 03/19/2024 26 eGFR-All Other Races (.) Date Value 05/09/2021 >60 Estimated Glomerular Filtration Rate (mL/min/1.73m ) Date Value 03/19/2024 110 ASSESSMENT/PLAN: 1. Uncontrolled type 2 diabetes mellitus with hyperglycemia (HCC) - ICD9: 250.02, ICD10: E11.65 - Uncontrolled - Increase Tresiba to 112 units once daily - Increase Novolog 20 units plus sliding scale before meals 150-200 = add 2 units 200-250 = add 4 units 250-300 = add 6 units 301-350 = add 8 units >350 = add 12 units - Continue other medications as currently prescribed (removed Jardiance from med list, not taking d/t cost) - Statin prescribed - atorvastatin - Blood glucose monitoring on a continuous glucose monitoring schedule - Counseled on healthy diet and regular exercise - Discussed diabetic education issues of hypoglycemic/hyperglycemic symptoms - Follow up in 1 month, sooner should any other issues arise. - Provided patient with [employer] insulin savings card Overdue Diabetes Health Maintenance: Health Maintenance - Diabetes Topic Date Due Dilated Retinal Exam 10/29/2024 Follow Up: Next PCP visit: 12/30/24 Next PharmD visit: 11/26/24 Susana Garcia, PharmD, BCACP Primary Care Clinical Wood Furniture Assembler I spent a total of 35 minutes on the date of the service which included preparing to see the patient, [id number] patient care, completing clinical documentation, counseling and educating the patient/family/caregiver, and ordering medications, tests, or procedures. documented in this encounterG[facility]04-10-[facility]25 Instructions* Patient Instructions* Susana Garcia RPh - 10/29/2024 2:30 PM EDT Increase Tresiba to 112 units once daily Novolog 20 units plus sliding scale before meals 150-200 = add 2 units 200-250 = add 4 units 250-300 = add 6 units 301-350 = add 8 units >350 = add 12 units documented in this encounterG[facility]04-10-2025 NoteHNO ID: [id number] Author: SUSANA GARCIA RPh Service: ? Author Type: Pharmacist Type: Progress Notes Filed: 10/29/2024 15:09 Note Text: Primary Care Pharmacy Visit CC (Reason for Consult): (E11.65) Uncontrolled type 2 diabetes mellitus with hyperglycemia (HCC) (primary encounter diagnosis) Goal(s): A1c <7% Last Collaborating Provider Visit: 07/23/[address] Norm Mills Bean Isaac is a 59 year old female presenting for follow up visit in person. Patient consents to pharmacy collaborative practice agreement. Last Pharmacy Visit: 07/23/24 - Jardiance started, Novolog increased HPI: Reports doing okay Still having a lot of pain with her trigger finger, has not been able to have her surgery yet because of her BGs being uncontrolled States BGs have been higher lately Was not able to start Jardiance due to cost, was $600 for a month supply Last medications cost $1700 for all medicines and insulins, cannot afford to continue with this cost moving forward; getting Michi sensors for $75/month supply In the process of switching an affordable insurance since no longer has Sean out of nowhere Current DM Medications: Metformin 1000 mg twice daily Trulicity 4.5 mg once weekly on Sundays Jardiance 10 mg once daily - not taking (cost) Tresiba U200 120 units once daily every morning - taking 102 units once daily Novolog 18 units + sliding scale with meals - taking 20 units + sliding scale 200-230 = add 2 units 230-260 = add 4 units 260-300 = add 6 units >300 = add 8 units Previously Trialed DM Meds: Ozempic - GI side effects GLYCEMIC CONTROL: Glucometer present at visit: Yes Hypoglycemia: No CGM Data Past medical history reviewed. ALLERGIES Allergen Reactions Omnicef [Cefdinir] Itching Vaginitis severe Proventil [Albutero* Vomiting Can not tolerate generic albuterol 08/22/12 - MEM. Tramadol Hives Current Outpatient Medications Medication Sig Dispense Refill levalbuterol tartrate HFA (XOPENEX HFA) 45 mcg/actuation inhaler Inhale 1-2 Puffs as instructed every 4 hours as needed for wheezing/shortness of breath. 1 Each 1 ibuprofen (MOTRIN) 800 mg tablet TAKE 1 TABLET BY MOUTH EVERY 8 HOURS NEEDED FOR PAIN WITH FOOD 60 tablet 1 empagliflozin (JARDIANCE) 10 mg tablet Take 1 tablet by mouth daily with breakfast. 30 tablet 2 dulaglutide (TRULICITY) 4.5 mg/0.5 mL pen injector Inject 4.5 mg subcutaneously one time a week. 6 mL 4 insulin aspart U-100 (NOVOLOG U-100 INSULIN ASPART) 100 unit/mL Inject 18 units subcutaneously as directed plus sliding scale with meals. (Max 80 units/day) 30 mL 11 insulin degludec (TRESIBA FLEXTOUCH U-200) 200 unit/mL (3 mL) injection Inject 120 Units subcutaneously daily at bedtime. 27 mL 11 albuterol HFA (VENTOLIN HFA) 90 mcg/actuation inhaler Inhale 2 Puffs as instructed every 4 hours as needed. For wheezing/shortness of breath. 18 g 3 atorvastatin (LIPITOR) 40 mg tablet Take 1 tablet by mouth once daily. 90 tablet 3 ergocalciferol 50,000 unit capsule (VITAMIN D2, DRISDOL) Take 1 capsule by mouth one time a week. 12 capsule 3 mupirocin (BACTROBAN) 2 % ointment Apply to affected area every 12 hours as needed (rash, skin lesions). 66 g 2 flash glucose sensor (FREESTYLE MICHI 14 DAY SENSOR) kit Apply sensor to back of arm to check blood sugars as directed. Change sensor every 2 weeks and rotate arms. 6 Each 3 aspirin, enteric coated (ASPIRIN, ENTERIC COATED) 81 mg EC tablet Take 1 tablet by mouth once daily. 90 tablet 3 famotidine (PEPCID) 20 mg tablet Take 1 tablet by mouth two times a day. 180 tablet 3 Blood-Glucose Sensor (FREESTYLE MICHI 3 PLUS SENSOR) ingrid Use to monitor glucose continuously and replace sensor every 15 days 6 Each 3 metFORMIN (GLUCOPHAGE) 1,000 mg tablet Take 1 tablet by mouth two times a day. 180 tablet 3 cyanocobalamin (VITAMIN B-12) 1,000 mcg tab Take 2 tablets by mouth once daily. 180 tablet 1 lisinopril (ZESTRIL) 10 mg tablet Take 1 tablet by mouth once daily. 90 tablet 3 Calcium Citrate-Vitamin D3 (CITRACAL+D) 315 mg-6.25 mcg (250 unit) tab Take 1 tablet by mouth once daily. 30 tablet 3 benzonatate (TESSALON PERLES) 100 mg capsule Take 1 capsule by mouth three times a day as needed for cough. 30 capsule 1 Oral Medication Containers (SHARPS CONTAINER) [facility] [place] as directed. 1 Each 0 flash glucose scanning reader (FREESTYLE MICHI 3 READER) Use to monitor blood glucose continuously 1 Each 0 Insulin [place], Disposable, (UNIFINE PENTIPS) 31 gauge x 3/16 Use as directed 4 times daily with insulin 400 Each 3 FLUoxetine (PROZAC) 20 mg capsule Take 1 capsule by mouth once daily. In the morning, for depression 90 capsule 1 gabapentin (NEURONTIN) 100 mg capsule Take 1-2 capsules by mouth daily at bedtime for 30 days. For foot pain 60 capsule 5 alcohol swabs (BD SINGLE USE SWABS REGULAR) Use as directed 4 to 5 times daily to check blood sugars and with ins (more content not included)...[facility]03-05-2025 NoteHNO ID: [id number] Author: JESE ZHENG, DO Service: ? Author Type: Physician Type: Progress Notes Filed: 09/23/2024 20:29 Note Text: Patient presents with: F/U 3 Month HPI: Otismorteza Isaac is a 58 year old female who presents to the office today for review of health conditions. Concerns today: Congestion in chest, some wheezing, no shortness of breath. Symptoms for 2 weeks, no fevers or chills. Struggling to get symptoms to improve Trigger finger, right hand, has been seen by Orthopedics. Pain is getting worse, using ibuprofen and icing and heating the hand to try to help it. Surgeon needs A1c 9% or lower to do surgery. She is struggling with severity of symptoms with pain at night- no longer getting benefit from ibuprofen or tylenol or use of ice or heating pad and topical Voltaren. Ms. Isaac has past history of diabetes. Since our last visit she denies excessive thirst or increased frequency of urination, chest pain or dyspnea , new or unusual visual symptoms, and low sugar/hypoglycemic reactions. Depression- no. Follows a diabetic diet some of the time. She is compliant with medication(s) and is tolerating med(s) without any side effects. She reports checking her glucose on a CGM schedule with sugars in the fasting 200-350s range. Patient's last HgA1C was Hemoglobin A1C (%) Date Value 07/20/2024 10.5 03/19/2024 9.1 08/14/2021 11.2 05/09/2021 12.1 Hemoglobin A1C (POCT) (%) Date Value 11/27/2023 9.3 05/27/2023 11.4 ) Last Ophthalmology exam was within the past 12 months Ms. Isaac reports history of hyperlipidemia. Current therapy includes atorvastatin (Lipitor) 40 mg. Denies side effects of muscle weakness or achiness. Her most recent lipid panels are reviewed. Cholesterol, Total (mg/dL) Date Value 03/19/2024 172 05/09/2021 205 HDL Cholesterol (mg/dL) Date Value 03/19/2024 40 05/09/2021 54 LDL Cholesterol (mg/dL) Date Value 03/19/2024 102 05/09/2021 127 LDL Cholesterol, Nonfasting (mg/dL) Date Value 02/19/2023 152 Triglyceride (mg/dL) Date Value 03/19/2024 150 05/09/2021 120 Ms. Isaac indicates a history of hypertension and states that she is feeling well and denies any symptoms referable to elevated blood pressure. Specifically denies headache, chest pain, palpitations, dyspnea, and peripheral edema. Patient denies any side effects of her medication(s) and is compliant with their regimen. Last 3 Encounter BP Readings: Date: BP: 09/23/2024 134/64 06/23/2024 138/80 03/17/2024 136/80 She watches her diet for sodium, low fat and low cholesterol some of the time. She does not check BP's generally. Lina gets minimal exercise. PAST MEDICAL HISTORY Diagnosis Date Asthma Bowel perforation 11/05/2012 C. difficile colitis 04/2016 Closed nondisplaced fracture of proximal phalanx of lesser toe of left foot with routine healing 10/07/2019 COVID-19 03/30/2021 Diabetes mellitus type 2 in obese 10/2013 A1C 6.8% Dyslipidemia 01/02/2019 Essential hypertension 08/11/2015 GERD (gastroesophageal reflux disease) Incisional hernia 06/26/2013 Injury to rectosigmoid colon 10/17/2012 Low HDL (under 40) 10/2013 Nephrolithiasis Osteoarthrosis, unspecified whether generalized or localized, other specified sites Osteoarthritis Bilateral knees Spasm of muscle Tobacco use disorder quit 2012 Unspecified hereditary and idiopathic peripheral neuropathy 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 Ramirez COLONOSCOPY 09/17/2022 repeat in 10 years EGD 09/17/2022 HERNIA REPAIR HX 06/22/2013 HYSTERECTOMY HX 2011 fistula with intestine HYSTEROSCOPY, DIAGNOSTIC (SEPARATE Hysteroscopy/Novasure LAP HYSTERECTOMY FOR UTERUS 250G OR LESS 10/09/2012 with vaginal sling, LSO, right salpingectomy LAPS ABD PRTMANDOMENTUM DX W/WO SPEC BR/WA SPX Laparoscopy LAPS REPAIR HERNIA EXCEPT INCAL/INGUN REDUCIBLE 05/2017 LIG/TRNSXJ FLP TUBE ABDL/VAG APPR UNI/BI 2001 Tubal ligation PAST SURGICAL HISTORY OF 01/30/2005 Left shoulder arthroscopy and debridement PAST SURGICAL HISTORY OF 02/2004 3rd toe left foot PAST SURGICAL HISTORY OF 03/14/2010 right total knee replacement PAST SURGICAL HISTORY OF 03/14/2009 left total knee replacement PAST SURGICAL HISTORY OF 01/23/2013 Ileostomy closure. PAST SURGICAL HISTORY OF Left 01/06/2016 left ring trigger release RPR 1ST INCAL/VNT HERNIA INCARCERATED 06/22/2013 at ileostomy site - 11x[address] mesh RPR RECRT INCAL/VNT HERNIA INCARCERATED 07/23/2014 at midline' RPR RECRT INCAL/VNT HERNIA INCARCERATED 10/11/2014 - recurrent small bowel resection, enterotomy Social History Tobacco Use Smoking status: Former Current packs/day: 0.00 Average packs/day: 0.5 packs/day for 24.0 ye (more content not included)... [facility]03-05-2025 History of Present illness Narrative* Jese Zheng, DO - 09/23/2024 3:20 PM EST Patient presents with: F/U 3 Month HPI: Lina Isaac is a 58 year old female who presents to the office today for review of health conditions. Concerns today: Congestion in chest, some wheezing, no shortness of breath. Symptoms for 2 weeks, no fevers or chills. Struggling to get symptoms to improve Trigger finger, right hand, has been seen by Orthopedics. Pain is getting worse, using ibuprofen and icing and heating the hand to try to help it. Surgeon needs A1c 9% or lower to do surgery. She is struggling with severity of symptoms with pain at night- no longer getting benefit from ibuprofen ortylenol or use of ice or heating pad and topical Voltaren. Ms. Isaac has past history of diabetes. Since our last visit she denies excessive thirst or increased frequency of urination, chest pain or dyspnea , new or unusual visual symptoms, and low sugar/hypoglycemic reactions. Depression- no. Follows a diabetic diet some of the time. She is compliant with medication(s) and is tolerating med(s) without any side effects. She reports checking her glucose on a CGM schedule with sugars in the fasting 200-350s range. Patient's last HgA1C was Hemoglobin A1C (%) Date Value 07/20/2024 10.5 03/19/2024 9.1 08/14/2021 11.2 05/09/2021 12.1 Hemoglobin A1C (POCT) (%) Date Value 11/27/2023 9.3 05/27/2023 11.4 ) Last Ophthalmology exam was within the past 12 months Ms. Isaac reports history of hyperlipidemia. Current therapy includes atorvastatin (Lipitor) 40 mg.Denies side effects of muscle weakness or achiness. Her most recent lipid panels are reviewed. Cholesterol, Total (mg/dL) Date Value 03/19/2024 172 05/09/2021 205 HDL Cholesterol (mg/dL) Date Value 03/19/2024 40 05/09/2021 54 LDL Cholesterol (mg/dL) Date Value 03/19/2024 102 05/09/2021 127 LDL Cholesterol, Nonfasting (mg/dL) Date Value 02/19/2023 152 Triglyceride (mg/dL) Date Value 03/19/2024 150 05/09/2021 120 Ms. Isaac indicates a history of hypertension and states that she is feeling well and denies any symptoms referable to elevated blood pressure. Specifically denies headache, chest pain, palpitations,dyspnea, and peripheral edema. Patient denies any side effects of her medication(s) and is compliant with their regimen. Last 3 Encounter BP Readings: Date: BP: 09/23/2024 134/64 06/23/2024 138/80 03/17/2024 136/80 She watches her diet for sodium, low fat and low cholesterol some of the time. She does not check BP's generally. Lina gets minimal exercise. PAST MEDICAL HISTORY Diagnosis Date Asthma Bowel perforation 11/05/2012 C. difficile colitis 04/2016 Closed nondisplaced fracture of proximal phalanx of lesser toe of left foot with routine healing 10/07/2019 COVID-19 03/30/2021 Diabetes mellitus type 2 in obese 10/2013 A1C 6.8% Dyslipidemia 01/02/2019 Essential hypertension 08/11/2015 GERD (gastroesophageal reflux disease) Incisional hernia 06/26/2013 Injury to rectosigmoid colon 10/17/2012 Low HDL (under 40) 10/2013 Nephrolithiasis Osteoarthrosis, unspecified whether generalized or localized, other specified sites Osteoarthritis Bilateral knees Spasm of muscle Tobacco use disorder quit 2012 Unspecified hereditary and idiopathic peripheral neuropathy 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 Ramirez COLONOSCOPY 09/17/2022 repeat in 10 years EGD 09/17/2022 HERNIA REPAIR HX 06/22/2013 HYSTERECTOMY HX 2011 fistula with intestine HYSTEROSCOPY, DIAGNOSTIC (SEPARATE Hysteroscopy/Novasure LAP HYSTERECTOMY FOR UTERUS 250G OR LESS 10/09/2012 with vaginal sling, LSO, right salpingectomy LAPS ABD PRTM&OMENTUM DX W/WO SPEC BR/WA SPX Laparoscopy LAPS REPAIR HERNIA EXCEPT INCAL/INGUN REDUCIBLE 05/2017 LIG/TRNSXJ FLP TUBE ABDL/VAG APPR UNI/BI 2001 Tubal ligation PAST SURGICAL HISTORY OF 01/30/2005 Left shoulder arthroscopy and debridement PAST SURGICAL HISTORY OF 02/2004 3rd toe left foot PAST SURGICAL HISTORY OF 03/14/2010 right total knee replacement PAST SURGICAL HISTORY OF 03/14/2009 left total knee replacement PAST SURGICAL HISTORY OF 01/23/2013 Ileostomy closure. PAST SURGICAL HISTORY OF Left 01/06/2016 left ring trigger release RPR 1ST INCAL/VNT HERNIA INCARCERATED 06/22/2013 at ileostomy site - 11x[address] \mesh RPR RECRT INCAL/VNT HERNIA INCARCERATED 07/23/2014 at midline' RPR RECRT INCAL/VNT HERNIA INCARCERATED 10/11/2014 - recurrent small bowel resection, enterotomy Social History Tobacco Use Smoking status: Former Current packs/day: 0.00 Average packs/day: 0.5 packs/day for 24.0 years (12.0 ttl pk-yrs) Types: Cigarettes Start date: 05/13/1989 Quit date: 05/13/2013 Years since quittin.3 Smokeless tobacco: Never Vaping Use Vaping status: Never Used Substance Use Topics Alcohol use: No Drug use: No FAMILY HISTORY Problem Relation Age of Onset Hypertension Mother Diabetes Mother Cancer Maternal Uncle throat cancer Hypertension Sister Diabetes Sister other (hyperlipidemia) Sister Allergies: ALLERGIES Allergen Reactions Omnicef [Cefdinir] Itching Vaginitis severe Proventil [Albutero* Vomiting Can not tolerate generic albuterol 08/22/12 - MEM. Tramadol Hives Current Meds: ibuprofen (MOTRIN) 800 mg tablet TAKE 1 TABLET BY MOUTH EVERY 8 HOURS NEEDED FOR PAIN WITH FOOD empagliflozin (JARDIANCE) 10 mg tablet Take 1 tablet by mouth daily with breakfast. dulaglutide (TRULICITY) 4.5 mg/0.5 mL pen injector Inject 4.5 mg subcutaneously one time a week. insulin aspart U-100 (NOVOLOG U-100 INSULIN ASPART) 100 unit/mL Inject 18 units subcutaneously as directed plus sliding scale with meals. (Max 80 units/day) insulin degludec (TRESIBA FLEXTOUCH U-200) 200 unit/mL (3 mL) injection Inject 120 Units subcutaneously daily at bedtime. albuterol HFA (VENTOLIN HFA) 90 mcg/actuation inhaler Inhale 2 Puffs as instructed every 4 hours asneeded. For wheezing/shortness of breath. atorvastatin (LIPITOR) 40 mg tablet Take 1 tablet by mouth once daily. ergocalciferol 50,000 unit capsule (VITAMIN D2, DRISDOL) Take 1 capsule by mouth one time a week. mupirocin (BACTROBAN) 2 % ointment Apply to affected area every 12 hours as needed (rash, skin lesions). flash glucose sensor (FREESTYLE MICHI 14 DAY SENSOR) kit Apply sensor to back of arm to check bloodsugars as directed. Change sensor every 2 weeks and rotate arms. aspirin, enteric coated (ASPIRIN, ENTERIC COATED) 81 mg EC tablet Take 1 tablet by mouth once daily. famotidine (PEPCID) 20 mg tablet Take 1 tablet by mouth two times a day. Blood-Glucose Sensor (FREESTYLE MICHI 3 PLUS SENSOR) ingrid Use to monitor glucose continuously and replace sensor every 15 days metFORMIN (GLUCOPHAGE) 1,000 mg tablet Take 1 tablet by mouth two times a day. cyanocobalamin (VITAMIN B-12) 1,000 mcg tab Take 2 tablets by mouth once daily. lisinopril (ZESTRIL) 10 mg tablet Take 1 tablet by mouth once daily. Calcium Citrate-Vitamin D3 (CITRACAL+D) 315 mg-6.25 mcg (250 unit) tab Take 1 tablet by mouth once daily. benzonatate (TESSALON PERLES) 100 mg capsule Take 1 capsule by mouth three times a day as needed for cough. Oral Medication Containers (SHARPS CONTAINER[place] [facility] [place] as directed. flash glucose scanning reader (FREESTYLE MICHI 3 READER) Use to monitor blood glucose continuously Insulin [place], Disposable, (UNIFINE PENTIPS) 31 gauge x 3/16 Use as directed 4 times daily with insulin FLUoxetine (PROZAC) 20 mg capsule Take 1 capsule by mouth once daily. In the morning, for depression gabapentin (NEURONTIN) 100 mg capsule Take 1-2 capsules by mouth daily at bedtime for 30 days. For foot pain alcohol swabs (BD SINGLE USE SWABS REGULAR) Use as directed 4 to 5 times daily to check blood sugars and with insulin injections diclofenac (VOLTAREN ARTHRITIS PAIN) 1 % topical gel Apply 2 g to affected area four times daily. glucagon (BAQSIMI) 3 mg/actuation nasal spray Use 1 [place] in the nose as needed for low blood sugar. May repeat after 15 minutes using a new device if there is no response. polyethylene glycol 3350 (MIRALAX) 17 gram/dose powder 1 capful daily in the morning blood sugar diagnostic (FREESTYLE PRECISION JEREMIAS STRIPS) test strip Use to test blood sugar up to twice daily as instructed. Dx: insulin-dependent DM Review of Systems: The remainder of the review of systems is negative. PE: 09/23/24 1507 BP: 134/64 Pulse: 88 Resp: 16 Temp: 36.1 C (97 F) TempSrc: Temporal Weight: 93.4 kg (206 lb) Gen: A&O, NAD, non-toxic appearing, cooperative HEENT: NT/AC, PERRLA, wearing glasses, EOMs intact b/l, nares clear and patent b/l, pharynx withouterythema, exudate or lesions. MMM, Uvula midline. EACs without erythema or debris. TMs pearly julien with intact landmarks b/l. Neck: supple, No cervical LAD, no thyromegaly, no carotid bruits CV: RRR, normal S1 and S2, no murmurs, no gallops, no rubs, Pulses 2+ and symmetric in UE and LE b/l Lungs: normal respiratory effort, + Rhonchi bases Abd: soft, overweight, NT, ND, +BS, no hepatosplenomegaly MS: trigger finger right hand with severe associated pain and limited 3rd finger Neuro: CN II-XII intact b/l, strength 5/5 b/l UE and LE, DTRs 2/4 UE and LE, sensation intact. Skin: warm, dry, intact, No rashes or lesions on exposed skin. Foot exam: Monofilament wnl on right and left feet. No edema, normal pulses PDMP website checked and validated. All prescriptions have been APPROPRIATELY filled. No suspiciousactivity was identified. 09/23/2024 by Jese Zheng DO ASSESSMENT/PLAN: 1. Type 2 diabetes mellitus with peripheral neuropathy (HCC) - ICD9: 250.60, 357.2, ICD10: E11.42 (primary diagnosis) - Worsening control - Continue current medications - Blood glucose monitoring on a continuous glucose monitoring schedule - Counseled on healthy diet and regular exercise - Discussed need for and benefit of weight loss. BMI 31.32 kg/(m^2) - Discussed diabetic education issues of diabetes complications and monitoring required and hypoglycemic/hyperglycemic symptoms - HEMOGLOBIN A1C (POC) 2. Acute cough - ICD9: 786.2, ICD10: R05.1 rx as below If symptoms aren't improved then check CXR as d/w her today - XR CHEST 2V FRONTAL/LAT - DOXYCYCLINE HYCLATE 100 MG TABLET - LEVALBUTEROL HFA 45 MCG/ACTUATION AEROSOL INHALER 3. Rhonchi at both lung bases - ICD9: 786.7, ICD10: R09.89 rx as below If symptoms aren't improved then check CXR as d/w her today - XR CHEST 2V FRONTAL/LAT - DOXYCYCLINE HYCLATE 100 MG TABLET - LEVALBUTEROL HFA 45 MCG/ACTUATION AEROSOL INHALER 4. Shortness of breath - ICD9: 786.05, ICD10: R06.02 rx as below If symptoms aren't improved then check CXR as d/w her today 5. COVID-19 - ICD9: 079.89, ICD10: U07.1 rx as below If symptoms aren't improved then check CXR as d/w her today 6. Vitamin B12 deficiency - ICD9: 266.2, ICD10: E53.8 Continue supplement 7. Vitamin D deficiency - ICD9: 268.9, ICD10: E55.9 Continue supplement 8. Dyslipidemia - ICD9: 272.4, ICD10: E78.5 - Uncontrolled - Continue current medications - Counseled on healthy diet and regular exercise 9. Essential hypertension - ICD9: 401.9, ICD10: I10 - Controlled - Continue current medications - Recommend home blood pressure monitoring, to bring results to next visit - Encouraged sodium restriction, DASH or Mediterranean diet - Recommend regular aerobic exercise 10. Trigger middle finger of right hand - ICD9: 727.03, ICD10: M65.331 rx as below only for bedtime for severe pain, f/u with orthopedics Need for better A1c control before she can have surgery - HYDROCODONE 5 MG-ACETAMINOPHEN 325 MG TABLET 11. Right hand pain - ICD9: 729.5, ICD10: M79.641 rx as below only for bedtime for severe pain, f/u with orthopedics Need for better A1c control before she can have surgery - HYDROCODONE 5 MG-ACETAMINOPHEN 325 MG TABLET Jese Zheng DO To ER if develops chest pain, shortness of breath, or severe worsening of symptoms. Discussed risks, benefits, alternatives, and potential side effects of medications. Patient expressed understanding and agreed with the plan. Jese Zheng DO [address] [place] [address] [facility] Telephone encounter Note * Telephone Encounter - Fabiana Cook LPN - 09/09/2024 11:37 AM EST Patient has been identified by name and date of : Patient phones for refill(s): Requested Prescriptions Pending Prescriptions Disp Refills ibuprofen (MOTRIN) 800 mg tablet 60 tablet 1 Sig: TAKE 1 TABLET BY MOUTH EVERY 8 HOURS NEEDED FOR PAIN WITH FOOD Date of last office visit in primary care: 06/23/2024 Date of next office visit in primary care: 09/23/2024 Please advise. Thank you. Fabiana Cook LPN. [facility]02-19-[facility] Miscellaneous Notes* Telephone Encounter - Fabiana Ponce LPN - 09/09/2024 11:37 AM EST Patient has been identified by name and date of : Patient phones for refill(s): Requested Prescriptions Pending Prescriptions Disp Refills ibuprofen (MOTRIN) 800 mg tablet 60 tablet 1 Sig: TAKE 1 TABLET BY MOUTH EVERY 8 HOURS NEEDED FOR PAIN WITH FOOD Date of last office visit in primary care: 06/23/2024 Date of next office visit in primary care: 09/23/2024 Please advise. Thank you. Fabiana Cook LPN. documented in [facility]01[facility] History of Present illness Narrative* Susana Garcia [facility] - 07/23/2024 2:30 PM EST Images from the original note were not included. Primary Care Pharmacy Visit CC (Reason for Consult): (E11.65) Uncontrolled type 2 diabetes mellitus with hyperglycemia (HCC) (primary encounter diagnosis) Goal(s): A1c <7% Last Collaborating Provider Visit: 06/23/[address] Norm Mills Bean Isaac is a 58 year old female presenting for follow up visit in person. Patient consentsto pharmacy collaborative practice agreement. Last Pharmacy Visit: 04/23/24 - Tresiba increased to 120 units daily Interim Events: - 07/20/24 A1c results: worsening from 9.1% to 10.5% HPI: Reports doing well States has had a lot of pain with trigger finger which has affected her sugars going up; this started back in May. States she saw orthopaedic who recommended surgery; however, needs to get A1c back down before they will do surgery States she got a letter recently about needing new approval for new year of insulins and Trulicity;has good supply of insulin and Trulicity still Current DM Medications: Metformin 1000 mg twice daily Trulicity 4.5 mg once weekly on Sundays Tresiba U200 120 units once daily every morning Novolog 16 units + sliding scale with meals 200-230 = add 2 units 230-260 = add 4 units 260-300 = add 6 units >300 = add 8 units Previously Trialed DM Meds: Ozempic - GI side effects Diet Denies any recent changes GLYCEMIC CONTROL: Glucometer present at visit: Yes Hypoglycemia: No CGM Data Past medical history reviewed. ALLERGIES Allergen Reactions Omnicef [Cefdinir] Itching Vaginitis severe Proventil [Albutero* Vomiting Can not tolerate generic albuterol 08/22/12 - MEM. Tramadol Hives Current Outpatient Medications Medication Sig Dispense Refill albuterol HFA (VENTOLIN HFA) 90 mcg/actuation inhaler Inhale 2 Puffs as instructed every 4 hours asneeded. For wheezing/shortness of breath. 18 g 3 atorvastatin (LIPITOR) 40 mg tablet Take 1 tablet by mouth once daily. 90 tablet 3 ergocalciferol 50,000 unit capsule (VITAMIN D2, DRISDOL) Take 1 capsule by mouth one time a week. 12 capsule 3 ibuprofen (MOTRIN) 800 mg tablet TAKE 1 TABLET BY MOUTH EVERY 8 HOURS NEEDED FOR PAIN WITH FOOD 60 tablet 1 mupirocin (BACTROBAN) 2 % ointment Apply to affected area every 12 hours as needed (rash, skin lesions). 66 g 2 flash glucose sensor (FREESTYLE MICHI 14 DAY SENSOR) kit Apply sensor to back of arm to check bloodsugars as directed. Change sensor every 2 weeks and rotate arms. 6 Each 3 aspirin, enteric coated (ASPIRIN, ENTERIC COATED) 81 mg EC tablet Take 1 tablet by mouth once daily. 90 tablet 3 famotidine (PEPCID) 20 mg tablet Take 1 tablet by mouth two times a day. 180 tablet 3 Blood-Glucose Sensor (FREESTYLE MICHI 3 PLUS SENSOR) ingrid Use to monitor glucose continuously and replace sensor every 15 days 6 Each 3 metFORMIN (GLUCOPHAGE) 1,000 mg tablet Take 1 tablet by mouth two times a day. 180 tablet 3 insulin degludec (TRESIBA FLEXTOUCH U-200) 200 unit/mL (3 mL) injection Inject 120 Units subcutaneously daily at bedtime. 27 mL 5 dulaglutide (TRULICITY) 4.5 mg/0.5 mL pen injector Inject 4.5 mg subcutaneously one time a week. 6 mL 4 cyanocobalamin (VITAMIN B-12) 1,000 mcg tab Take 2 tablets by mouth once daily. 180 tablet 1 lisinopril (ZESTRIL) 10 mg tablet Take 1 tablet by mouth once daily. 90 tablet 3 Calcium Citrate-Vitamin D3 (CITRACAL+D) 315 mg-6.25 mcg (250 unit) tab Take 1 tablet by mouth once daily. 30 tablet 3 benzonatate (TESSALON PERLES) 100 mg capsule Take 1 capsule by mouth three times a day as needed for cough. 30 capsule 1 Oral Medication Containers (SHARPS CONTAINER) [facility] [place]ps as directed. 1 Each 0 flash glucose scanning reader (FREESTYLE MICHI 3 READER) Use to monitor blood glucose continuously 1 Each 0 insulin aspart U-100 (NOVOLOG U-100 INSULIN ASPART) 100 unit/mL Inject 16 units subcutaneously as directed plus sliding scale with meals. Insulin [place], Disposable, (UNIFINE PENTIPS) 31 gauge x 3/16 Use as directed 4 times daily with insulin 400 Each 3 FLUoxetine (PROZAC) 20 mg capsule Take 1 capsule by mouth once daily. In the morning, for depression 90 capsule 1 gabapentin (NEURONTIN) 100 mg capsule Take 1-2 capsules by mouth daily at bedtime for 30 days. For foot pain 60 capsule 5 alcohol swabs (BD SINGLE USE SWABS REGULAR) Use as directed 4 to 5 times daily to check blood sugars and with insulin injections 360 Each 3 diclofenac (VOLTAREN ARTHRITIS PAIN) 1 % topical gel Apply 2 g to affected area four times daily. 100 g 1 glucagon (BAQSIMI) 3 mg/actuation nasal spray Use 1 [place] in the nose as needed for low blood sugar. May repeat after 15 minutes using a new device if there is no response. 1 Each 3 polyethylene glycol 3350 (MIRALAX) 17 gram/dose powder 1 capful daily in the morning 1700 g 3 blood sugar diagnostic (FREESTYLE PRECISION JEREMIAS STRIPS) test strip Use to test blood sugar up to twice daily as instructed. Dx: insulin-dependent DM 50 Strip 11 No current facility-administered medications for this visit. Pill bottles are not present. Adherence: denies missed doses. Rx coverage: No coverage found. Medications affordable? Yes PHARMACOTHERAPY PREVENTATIVE MEDS: On JANNIE/ARB: Yes On Statin: Yes On ASA: Yes EXAM: LMP 08/30/2012 Last 3 Encounter BP Readings: Date: BP: 06/23/2024 138/80 03/17/2024 136/80 11/27/2023 120/60 Wt: 94.8 kg (209 lb) BMI: 31.78 kg/(m^2) LABS: Lab Results Component Value Date HBA1C 10.5 07/20/2024 HBA1C 9.1 03/19/2024 HBA1C 9.3 11/27/2023 HBA1C 11.2 08/27/2023 HBA1C 11.4 05/27/2023 HBA1C 10.7 11/08/2022 HBA1C 11.2 08/14/2021 HBA1C 12.1 05/09/2021 HBA1C 10.3 08/05/2020 Glucose 212 03/19/2024 BUN 7 03/19/2024 Creatinine, Whole Blood (iSTAT) 0.47 03/19/2024 Sodium 142 03/19/2024 Potassium 4.1 03/19/2024 Chloride 106 03/19/2024 CO2 26 03/19/2024 Protein, Total 6.8 03/19/2024 Albumin 4.1 03/19/2024 Calcium 9.1 03/19/2024 Alkaline Phosphatase 76 03/19/2024 Bilirubin, Total 0.7 03/19/2024 AST 15 03/19/2024 ALT 15 03/19/2024 Lab Results Component Value Date CHOL 172 03/19/2024 CHOL 205 05/09/2021 LDL 102 03/19/2024 LDL 152 02/19/2023 LDL 127 05/09/2021 HDL 40 03/19/2024 HDL 54 05/09/2021 TG 150 03/19/2024 TG 120 05/09/2021 Albumin/Creat Ratio (mg/g) Date Value 03/19/2024 26 eGFR-All Other Races (.) Date Value 05/09/2021 >60 Estimated Glomerular Filtration Rate (mL/min/1.73m ) Date Value 03/19/2024 110 ASSESSMENT/PLAN: 1. Uncontrolled type 2 diabetes mellitus with hyperglycemia (HCC) - ICD9: 250.02, ICD10: E11.65 - Uncontrolled - Start Jardiance 10 mg once daily - Increase Novolog to 18 units + sliding scale with meals - Continue all other medications as currently prescribed - Statin prescribed - atorvastatin - Blood glucose monitoring on a continuous glucose monitoring schedule - Counseled on healthy diet and regular exercise - Discussed diabetic education issues of diabetes complications and monitoring required, hypoglycemic/hyperglycemic symptoms, and medication-specific side effects and monitoring - Follow up in 6 weeks, sooner should any other issues arise. Follow Up: Next PCP visit: 09/23/24 Next PharmD visit: 09/03/24 Susana Garcia, PharmD, BCACP Primary Care Clinical Wood Furniture Assembler I spent a total of 30 minutes on the date of the service which included preparing to see the patient, [id number] patient care, completing clinical documentation, counseling and educating the patient/family/caregiver, and ordering medications, tests, or procedures. documented in this encounterG[facility]25 Instructions* Patient Instructions* Susana Garcia RPh - 07/23/2024 2:30 PM EST Start Jardiance 10 mg once daily - stay well hydrated while taking this Increase Novolog to 18 units plus sliding scale with meals 200-230 = add 2 units 230-260 = add 4 units 260-300 = add 6 units >300 = add 8 units Continue the following medications: - Tresiba 120 units once daily - Trulicity 4.5 mg once weekly - Metformin 1000 mg twice daily Next appointment: 09/03 at 2:30pm documented in this encounterGlen[facility]01-02-[facility]25 NoteHNO ID: [id number] Author: SUSANA GARCIA RPh Service: ? Author Type: Pharmacist Type: Progress Notes Filed: 07/23/2024 14:45 Note Text: Primary Care Pharmacy Visit CC (Reason for Consult): (E11.65) Uncontrolled type 2 diabetes mellitus with hyperglycemia (HCC) (primary encounter diagnosis) Goal(s): A1c <7% Last Collaborating Provider Visit: 06/23/[address] Norm Mills Bean Isaac is a 58 year old female presenting for follow up visit in person. Patient consents to pharmacy collaborative practice agreement. Last Pharmacy Visit: 04/23/24 - Tresiba increased to 120 units daily Interim Events: - 07/20/24 A1c results: worsening from 9.1% to 10.5% HPI: Reports doing well States has had a lot of pain with trigger finger which has affected her sugars going up; this started back in May. States she saw orthopaedic who recommended surgery; however, needs to get A1c back down before they will do surgery States she got a letter recently about needing new approval for new year of insulins and Trulicity; has good supply of insulin and Trulicity still Current DM Medications: Metformin 1000 mg twice daily Trulicity 4.5 mg once weekly on Sundays Tresiba U200 120 units once daily every morning Novolog 16 units + sliding scale with meals 200-230 = add 2 units 230-260 = add 4 units 260-300 = add 6 units >300 = add 8 units Previously Trialed DM Meds: Ozempic - GI side effects Diet Denies any recent changes GLYCEMIC CONTROL: Glucometer present at visit: Yes Hypoglycemia: No CGM Data Past medical history reviewed. ALLERGIES Allergen Reactions Omnicef [Cefdinir] Itching Vaginitis severe Proventil [Albutero* Vomiting Can not tolerate generic albuterol 08/22/12 - MEM. Tramadol Hives Current Outpatient Medications Medication Sig Dispense Refill albuterol HFA (VENTOLIN HFA) 90 mcg/actuation inhaler Inhale 2 Puffs as instructed every 4 hours as needed. For wheezing/shortness of breath. 18 g 3 atorvastatin (LIPITOR) 40 mg tablet Take 1 tablet by mouth once daily. 90 tablet 3 ergocalciferol 50,000 unit capsule (VITAMIN D2, DRISDOL) Take 1 capsule by mouth one time a week. 12 capsule 3 ibuprofen (MOTRIN) 800 mg tablet TAKE 1 TABLET BY MOUTH EVERY 8 HOURS NEEDED FOR PAIN WITH FOOD 60 tablet 1 mupirocin (BACTROBAN) 2 % ointment Apply to affected area every 12 hours as needed (rash, skin lesions). 66 g 2 flash glucose sensor (FREESTYLE MICHI 14 DAY SENSOR) kit Apply sensor to back of arm to check blood sugars as directed. Change sensor every 2 weeks and rotate arms. 6 Each 3 aspirin, enteric coated (ASPIRIN, ENTERIC COATED) 81 mg EC tablet Take 1 tablet by mouth once daily. 90 tablet 3 famotidine (PEPCID) 20 mg tablet Take 1 tablet by mouth two times a day. 180 tablet 3 Blood-Glucose Sensor (FREESTYLE MICHI 3 PLUS SENSOR) ingrid Use to monitor glucose continuously and replace sensor every 15 days 6 Each 3 metFORMIN (GLUCOPHAGE) 1,000 mg tablet Take 1 tablet by mouth two times a day. 180 tablet 3 insulin degludec (TRESIBA FLEXTOUCH U-200) 200 unit/mL (3 mL) injection Inject 120 Units subcutaneously daily at bedtime. 27 mL 5 dulaglutide (TRULICITY) 4.5 mg/0.5 mL pen injector Inject 4.5 mg subcutaneously one time a week. 6 mL 4 cyanocobalamin (VITAMIN B-12) 1,000 mcg tab Take 2 tablets by mouth once daily. 180 tablet 1 lisinopril (ZESTRIL) 10 mg tablet Take 1 tablet by mouth once daily. 90 tablet 3 Calcium Citrate-Vitamin D3 (CITRACAL+D) 315 mg-6.25 mcg (250 unit) tab Take 1 tablet by mouth once daily. 30 tablet 3 benzonatate (TESSALON PERLES) 100 mg capsule Take 1 capsule by mouth three times a day as needed for cough. 30 capsule 1 Oral Medication Containers (SHARPS CONTAINER) [facility] [place] to [place] sharps as directed. 1 Each 0 flash glucose scanning reader (FREESTYLE MICHI 3 READER) Use to monitor blood glucose continuously 1 Each 0 insulin aspart U-100 (NOVOLOG U-100 INSULIN ASPART) 100 unit/mL Inject 16 units subcutaneously as directed plus sliding scale with meals. Insulin [place], Disposable, (UNIFINE PENTIPS) 31 gauge x 3/16 Use as directed 4 times daily with insulin 400 Each 3 FLUoxetine (PROZAC) 20 mg capsule Take 1 capsule by mouth once daily. In the morning, for depression 90 capsule 1 gabapentin (NEURONTIN) 100 mg capsule Take 1-2 capsules by mouth daily at bedtime for 30 days. For foot pain 60 capsule 5 alcohol swabs (BD SINGLE USE SWABS REGULAR) Use as directed 4 to 5 times daily to check blood sugars and with insulin injections 360 Each 3 diclofenac (VOLTAREN ARTHRITIS PAIN) 1 % topical gel Apply 2 g to affected area four times daily. 100 g 1 glucagon (BAQSIMI) 3 mg/actuation nasal spray Use 1 [place] in the nose as needed for low blood sugar. May repeat after 15 minutes using a new device if there is no response. 1 Each 3 polyethylene glycol 3350 (MIRALAX) 17 gram/dose powder 1 capful daily in the morning 1700 (more content not included)...[facility]12-31-2024 Telephone encounter Note* Telephone Encounter - Suellen Rojas MA - 07/21/2024 9:13 AM EST Patient has been notified of message below and verbalized understanding. She already has an appointment scheduled with PCP office on 07/23/2024. Patient advised to contact office back to schedule once she meets the 9.0 or less requirement. [facility]12[facility] Telephone encounter Note* Telephone Encounter - Suellen Rojas MA - 07/21/2024 9:13 AM EST ----- Message from John Brown MD sent at 07/21/2024 8:54 AM EST ----- Patient is over 10. Surgery not advisable over 10 due to risk of surgical site infection. Once it is back to 9 or lower, we would consider. [facility]12-31-[facility] Miscellaneous Notes* Telephone Encounter - Suellen Rojas MA - 07/21/2024 9:13 AM EST Patient has been notified of message below and verbalized understanding. She already has an appointment scheduled with PCP office on 07/23/2024. Patient advised to contact office back to schedule once she meets the 9.0 or less requirement. * Telephone Encounter - Suellen Rojas MA - 07/21/2024 9:13 AM EST ----- Message from John Brown MD sent at 07/21/2024 8:54 AM EST ----- Patient is over 10. Surgery not advisable over 10 due to risk of surgical site infection. Once it is back to 9 or lower, we would consider. documented in this encounterGlen[facility] Hospital12-30-2024 NoteHNO ID: [id number] Author: SUELLEN ROJAS MA Service: ? Author Type: Nurse Sane Type: Progress Notes Filed: 08/02/2024 09:35 Note Text: PT ASSESSMENT - CASTING ROOM [facility] presents for Application of splint. Applied size 13 oval 8 splint to Right middle finger. Patient has been instructed in Care and proper application of brace. Suellen Rojas [facility]12-30-2024 History of Present illness Narrative* Suellen Rojas MA - 07/20/2024 4:57 PM EST PT ASSESSMENT - CASTING ROOM [facility] presents for Application of splint. Applied size 13 oval 8 splint to Right middle finger. Patient has been instructed in Care and proper application of brace. Suellen Rojas MA * John Brown MD - 07/20/2024 3:57 PM EST John Brown MD Department of Orthopaedics Orthopaedics [address] [facility] [address] Dept: [phone] Dept July 20, 2025 CHIEF COMPLAINT: New of the Right Hand HPI Patient c/o R hand pain x1 mo. No known injury. Patient reports hand tight and locks when she makesfist. Trouble twisting, opening jars/doors, etc. PCP worked up for gout and pt was on abx with no relief. 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 Shanelle Mckee MA ASSESSMENT: E11.42 Type 2 diabetes mellitus with peripheral neuropathy (HCC) (primary encounter diagnosis) M79.641 Right hand pain PLAN: She has some serious flexor tendonitis, however, looks like she has uncontrolled DM and we have no update on her numbers. Prior to moving forward with surgical releases, I need a new HgA1C. Forsome reason, there was a warning that said she has an unusual hemoglobin and recommended a Fructos amine, so I'll just get both to get the best picture. FOLLOW UP INSTRUCTIONS: We'll await her labs. OBJECTIVE: Ms. Lina Isaac is a pleasant 58 year old in no apparent distress. Gen:LMP 08/30/2012 nl development, non obese, no deformities ENT: Normocephalic, normal hearing, moist mucosa CV: Pulses:Radial= 2+ and symmetric, capillary refill < 2 secs, no peripheral edema/varicosities Skin: no rash, bruising or lesions. Good turgor. Psych: cooperative and appropriate, alert and oriented x 3, good mood and affect. Musculoskeletal: Mild bilateral swelling, generalized. Some OA look as well. There is stiffness, tenderness over theA1 augustina and locking of the digits, in each hand. IMAGING: IMPRESSION: No acute osseous abnormality Fur Trimmer: SANTOSH Transcribe Date/Time: Jun 26 2024 12:23P Dictated by : MARTHA MCMULLEN MD This examination was interpreted and the report reviewed and electronically signed by: MARTHA MCMULLEN MD on Jun 26 2024 12:25PM EST Supporting Subjective Information Below: Past Medical History: PAST MEDICAL HISTORY Diagnosis Date Asthma Bowel perforation 11/05/2012 C. difficile colitis 04/2016 Closed nondisplaced fracture of proximal phalanx of lesser toe of left foot with routine healing 10/07/2019 COVID-19 03/30/2021 Diabetes mellitus type 2 in obese 10/2013 A1C 6.8% Dyslipidemia 01/02/2019 Essential hypertension 08/11/2015 GERD (gastroesophageal reflux disease) Incisional hernia 06/26/2013 Injury to rectosigmoid colon 10/17/2012 Low HDL (under 40) 10/2013 Nephrolithiasis Osteoarthrosis, unspecified whether generalized or localized, other specified sites Osteoarthritis Bilateral knees Spasm of muscle Tobacco use disorder quit 2012 Unspecified hereditary and idiopathic peripheral neuropathy 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 Ramirez COLONOSCOPY 09/17/2022 repeat in 10 years EGD 09/17/2022 HERNIA REPAIR HX 06/22/2013 HYSTERECTOMY HX 2011 fistula with intestine HYSTEROSCOPY, DIAGNOSTIC (SEPARATE Hysteroscopy/Novasure LAP HYSTERECTOMY FOR UTERUS 250G OR LESS 10/09/2012 with vaginal sling, LSO, right salpingectomy LAPS ABD PRTM&OMENTUM DX W/WO SPEC BR/WA SPX Laparoscopy LAPS REPAIR HERNIA EXCEPT INCAL/INGUN REDUCIBLE 05/2017 LIG/TRNSXJ FLP TUBE ABDL/VAG APPR UNI/BI 2001 Tubal ligation PAST SURGICAL HISTORY OF 01/30/2005 Left shoulder arthroscopy and debridement PAST SURGICAL HISTORY OF 02/2004 3rd toe left foot PAST SURGICAL HISTORY OF 03/14/2010 right total knee replacement PAST SURGICAL HISTORY OF 03/14/2009 left total knee replacement PAST SURGICAL HISTORY OF 01/23/2013 Ileostomy closure. PAST SURGICAL HISTORY OF Left 01/06/2016 left ring trigger release RPR 1ST INCAL/VNT HERNIA INCARCERATED 06/22/2013 at ileostomy site - 11x[address] \mesh RPR RECRT INCAL/VNT HERNIA INCARCERATED 07/23/2014 at midline' RPR RECRT INCAL/VNT HERNIA INCARCERATED 10/11/2014 - recurrent small bowel resection, enterotomy Family History: FAMILY HISTORY Problem Relation Age of Onset Hypertension Mother Diabetes Mother Cancer Maternal Uncle throat cancer Hypertension Sister Diabetes Sister other (hyperlipidemia) Sister Social History: Social History Tobacco Use Smoking status: Former Current packs/day: 0.00 Average packs/day: 0.5 packs/day for 24.0 years (12.0 ttl pk-yrs) Types: Cigarettes Start date: 05/13/1989 Quit date: 05/13/2013 Years since quittin.2 Smokeless tobacco: Never Vaping Use Vaping status: Never Used Substance Use Topics Alcohol use: No Drug use: No Medications: Current Outpatient Medications Medication Sig empagliflozin (JARDIANCE) 10 mg tablet Take 1 tablet by mouth daily with breakfast. dulaglutide (TRULICITY) 4.5 mg/0.5 mL pen injector Inject 4.5 mg subcutaneously one time a week. insulin aspart U-100 (NOVOLOG U-100 INSULIN ASPART) 100 unit/mL Inject 18 units subcutaneously as directed plus sliding scale with meals. (Max 80 units/day) insulin degludec (TRESIBA FLEXTOUCH U-200) 200 unit/mL (3 mL) injection Inject 120 Units subcutaneously daily at bedtime. albuterol HFA (VENTOLIN HFA) 90 mcg/actuation inhaler Inhale 2 Puffs as instructed every 4 hours asneeded. For wheezing/shortness of breath. atorvastatin (LIPITOR) 40 mg tablet Take 1 tablet by mouth once daily. ergocalciferol 50,000 unit capsule (VITAMIN D2, DRISDOL) Take 1 capsule by mouth one time a week. ibuprofen (MOTRIN) 800 mg tablet TAKE 1 TABLET BY MOUTH EVERY 8 HOURS NEEDED FOR PAIN WITH FOOD mupirocin (BACTROBAN) 2 % ointment Apply to affected area every 12 hours as needed (rash, skin lesions). flash glucose sensor (FREESTYLE MICHI 14 DAY SENSOR) kit Apply sensor to back of arm to check bloodsugars as directed. Change sensor every 2 weeks and rotate arms. aspirin, enteric coated (ASPIRIN, ENTERIC COATED) 81 mg EC tablet Take 1 tablet by mouth once daily. famotidine (PEPCID) 20 mg tablet Take 1 tablet by mouth two times a day. Blood-Glucose Sensor (FREESTYLE MICHI 3 PLUS SENSOR) ingrid Use to monitor glucose continuously and replace sensor every 15 days metFORMIN (GLUCOPHAGE) 1,000 mg tablet Take 1 tablet by mouth two times a day. cyanocobalamin (VITAMIN B-12) 1,000 mcg tab Take 2 tablets by mouth once daily. lisinopril (ZESTRIL) 10 mg tablet Take 1 tablet by mouth once daily. Calcium Citrate-Vitamin D3 (CITRACAL+D) 315 mg-6.25 mcg (250 unit) tab Take 1 tablet by mouth once daily. benzonatate (TESSALON PERLES) 100 mg capsule Take 1 capsule by mouth three times a day as needed for cough. Oral Medication Containers (SHARPS CONTAINER) [facility] [place] to [place]ps as directed. flash glucose scanning reader (FREESTYLE MICHI 3 READER) Use to monitor blood glucose continuously Insulin [place], Disposable, (UNIFINE PENTIPS) 31 gauge x 3/16 Use as directed 4 times daily with insulin FLUoxetine (PROZAC) 20 mg capsule Take 1 capsule by mouth once daily. In the morning, for depression gabapentin (NEURONTIN) 100 mg capsule Take 1-2 capsules by mouth daily at bedtime for 30 days. For foot pain alcohol swabs (BD SINGLE USE SWABS REGULAR) Use as directed 4 to 5 times daily to check blood sugars and with insulin injections diclofenac (VOLTAREN ARTHRITIS PAIN) 1 % topical gel Apply 2 g to affected area four times daily. glucagon (BAQSIMI) 3 mg/actuation nasal spray Use 1 [place] in the nose as needed for low blood sugar. May repeat after 15 minutes using a new device if there is no response. polyethylene glycol 3350 (MIRALAX) 17 gram/dose powder 1 capful daily in the morning blood sugar diagnostic (FREESTYLE PRECISION JEREMIAS STRIPS) test strip Use to test blood sugar up to twice daily as instructed. Dx: insulin-dependent DM No current facility-administered medications for this visit. Allergies: Omnicef [Cefdinir], Proventil [Albuterol Sulfate], and Tramadol ROS: General (negative for fatigue, malaise, weight loss/gain) HEENT (negative for headache, earache, recent vision changes, sinus pain, sore throat) Respiratory (no recent shortness of breath, hemoptysis) CV (negative for chest tightness, palpitations) Musculoskeletal (see HPI) Psych (no depression, anxiety) REFERRING PHYSICIAN: Consultation requested by Dr. Zheng for an opinion regarding hand pain. My final recommendationswill be communicated back to the requesting physician by way of shared Medical record or letter to requesting physician via US mail. Jese Zheng [address] [facility] [address] Jese Zheng DO [address] [facility] [address] John Brown MD documented in this encounterGlenbeigh Hospital12-30-2024 NoteHNO ID: [id number] Author: JOHN BROWN MD Service: ? Author Type: Physician Type: Progress Notes Filed: 08/02/2024 09:35 Note Text: John Brown MD Department of Orthopaedics Orthopaedics [address] [facility] [address] Dept: [phone] Dept July 20, 2025 CHIEF COMPLAINT: New of the Right Hand HPI Patient c/o R hand pain x1 mo. No known injury. Patient reports hand tight and locks when she makes fist. Trouble twisting, opening jars/doors, etc. PCP worked up for gout and pt was on abx with no relief. 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 Shanelle Mckee MA ASSESSMENT: E11.42 Type 2 diabetes mellitus with peripheral neuropathy (HCC) (primary encounter diagnosis) M79.641 Right hand pain PLAN: She has some serious flexor tendonitis, however, looks like she has uncontrolled DM and we have no update on her numbers. Prior to moving forward with surgical releases, I need a new HgA1C. For some reason, there was a warning that said she has an unusual hemoglobin and recommended a Fructosamine, so I'll just get both to get the best picture. FOLLOW UP INSTRUCTIONS: We'll await her labs. OBJECTIVE: Ms. Lina Isaac is a pleasant 58 year old in no apparent distress. Gen:LMP 08/30/2012 nl development, non obese, no deformities ENT: Normocephalic, normal hearing, moist mucosa CV: Pulses:Radial= 2+ and symmetric, capillary refill < 2 secs, no peripheral edema/varicosities Skin: no rash, bruising or lesions. Good turgor. Psych: cooperative and appropriate, alert and oriented x 3, good mood and affect. Musculoskeletal: Mild bilateral swelling, generalized. Some OA look as well. There is stiffness, tenderness over the A1 augustina and locking of the digits, in each hand. IMAGING: IMPRESSION: No acute osseous abnormality Fur Trimmer: SANTOSH Transcribe Date/Time: Jun 26 2024 12:23P Dictated by : MARTHA MCMULLEN MD This examination was interpreted and the report reviewed and electronically signed by: MARTHA MCMULLEN MD on Jun 26 2024 12:25PM EST Supporting Subjective Information Below: Past Medical History: PAST MEDICAL HISTORY Diagnosis Date Asthma Bowel perforation 11/05/2012 C. difficile colitis 04/2016 Closed nondisplaced fracture of proximal phalanx of lesser toe of left foot with routine healing 10/07/2019 COVID-19 03/30/2021 Diabetes mellitus type 2 in obese 10/2013 A1C 6.8% Dyslipidemia 01/02/2019 Essential hypertension 08/11/2015 GERD (gastroesophageal reflux disease) Incisional hernia 06/26/2013 Injury to rectosigmoid colon 10/17/2012 Low HDL (under 40) 10/2013 Nephrolithiasis Osteoarthrosis, unspecified whether generalized or localized, other specified sites Osteoarthritis Bilateral knees Spasm of muscle Tobacco use disorder quit 2012 Unspecified hereditary and idiopathic peripheral neuropathy 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 Ramirez COLONOSCOPY 09/17/2022 repeat in 10 years EGD 09/17/2022 HERNIA REPAIR HX 06/22/2013 HYSTERECTOMY HX 2011 fistula with intestine HYSTEROSCOPY, DIAGNOSTIC (SEPARATE Hysteroscopy/Novasure LAP HYSTERECTOMY FOR UTERUS 250G OR LESS 10/09/2012 with vaginal sling, LSO, right salpingectomy LAPS ABD PRTMANDOMENTUM DX W/WO SPEC BR/WA SPX Laparoscopy LAPS REPAIR HERNIA EXCEPT INCAL/INGUN REDUCIBLE 05/2017 LIG/TRNSXJ FLP TUBE ABDL/VAG APPR UNI/BI 2001 Tubal ligation PAST SURGICAL HISTORY OF 01/30/2005 Left shoulder arthroscopy and debridement PAST SURGICAL HISTORY OF 02/2004 3rd toe left foot PAST SURGICAL HISTORY OF 03/14/2010 right total knee replacement PAST SURGICAL HISTORY OF 03/14/2009 left total knee replacement PAST SURGICAL HISTORY OF 01/23/2013 Ileostomy closure. PAST SURGICAL HISTORY OF Left 01/06/2016 left ring trigger release RPR 1ST INCAL/VNT HERNIA INCARCERATED 06/22/2013 at ileostomy site - 11x[address] mesh RPR RECRT INCAL/VNT HERNIA INCARCERATED 07/23/2014 at midline' RPR RECRT INCAL/VNT HERNIA INCARCERATED 10/11/2014 - recurrent small bowel resection, enterotomy Family History: FAMILY HISTORY Problem Relation Age of Onset Hypertension Mother Diabetes Mother Cancer Maternal Uncle throat cancer Hypertension Sister Diabetes Sister other (hyperlipidemia) Sister Social History: Social History Tobacco Use Smoking status: Former Current packs/day: 0.00 Average packs/day: 0.5 packs/day for 24.0 years (12.0 ttl pk-yrs) Types: Cigarettes Start date: 05/13/1989 Quit date: 05/13/2013 Years since quittin.2 Smokeless tobacco: Never Vaping Use Vaping status: Never Used Substance Use Topics Alcohol use: No Drug use: No Me (more content not included)...[facility]12-27-2024 Telephone encounter Note* Telephone Encounter - Jese Zheng DO - 07/17/2024 7:06 AM EST Yes, okay to see Orthopedics- Dr. Brown or Dr.Chicorrelli Jese Zheng DO [facility]12-27-2024 Miscellaneous Notes* Telephone Encounter - Jese Zheng DO - 07/17/2024 7:06 AM EST Yes, okay to see Orthopedics- Dr. Brown or Dr.Chicorrelli Jese Zheng DO * Telephone Encounter - Brianna Dye RN - 07/16/2024 11:10 AM EST Patient calling in and states she was seen by Dr. Zheng on 06/23/24 and her right hand pain was evaluated. Labs were normal and xray was normal. Patient 's hand pain continues and she would like orthopedics to look at her hand for possible trigger finger and invasive intervention, if needed. Patient asking Dr. Zheng if it would be appropriate for her to see Ortho, and if so, does Dr. Zheng recommend a provider? Please place consult order if agreeable. Call patient with reply. Thank you. documented in this encounterGlen[facility] Hospital12-26-2024 Telephone encounter Note * Telephone Encounter - Brianna Dye RN - 07/16/2024 11:10 AM EST Patient calling in and states she was seen by Dr. Zheng on 06/23/24 and her right hand pain was evaluated. Labs were normal and xray was normal. Patient 's hand pain continues and she would like orthopedics to look at her hand for possible trigger finger and invasive intervention, if needed. Patient asking Dr. Zheng if it would be appropriate for her to see Ortho, and if so, does Dr. Zheng recommend a provider? Please place consult order if agreeable. Call patient with reply. Thank you. [facility]12-16-2024 Telephone encounter Note* Telephone Encounter - Susana Garcia RPh - 07/06/2024 2:01 PM EST Primary Care Pharmacy Rescheduling Outreach Patient cancelled 06/04 follow up visit and has not yet rescheduled. Call center, please contact patient and reschedule in person, telephone, and virtual visit for Diabetes management within ~4-6 week(s). (Visit length: 30 minutes) Thank you, Susana Garcia, PharmD, BCACP Primary Care Clinical Wood Furniture Assembler 07/06/2024 2:01 PM [facility] Work Phone: [phone] Miscellaneous Notes* Telephone Encounter - Susana Garcia RPh - 07/06/2024 2:01 PM EST Primary Care Pharmacy Rescheduling Outreach Patient cancelled 06/04 follow up visit and has not yet rescheduled. Call center, please contact patient and reschedule in person, telephone, and virtual visit for Diabetes management within ~4-6 week(s). (Visit length: 30 minutes) Thank you, Susana Garcia, PharmD, BCACP Primary Care Clinical Wood Furniture Assembler 07/06/2024 2:01 PM documented in this encounterG[facility]12-[facility]24 History of Present illness Narrative* Yenni Moreau RT(Zachariah) - 06/23/2024 4:00 PM EST Radiology Service Progress Note PATIENT NAME: Lina Isaac DATE OF SERVICE: June 23, 2024 TIME: 3:51 PM PATIENT IDENTITY VERIFICATION COMPLETED USING TWO (2) IDENTIFIERS: Name and Date of confirmedby patient verbally. FALL SCREENING: Has the patient had 2 falls in the last year or 1 fall with injury or currently using an Ambulatory Assistive Device (Walker, Cane, Wheelchair, Crutches, etc.)? No PATIENT GENDER DATA: Female. status: : No status: NO. PATIENT RELEVANT IMPLANT DATA REVIEWED: Yes PATIENT PRESENTS WITH AN IMPLANTABLE OR ATTACHED MATERIAL MOVERS: No RADIOLOGY DEPARTMENT: General X-ray: Exam(s) Completed: Upper Extremity X- Ray(s): Hand, right PERIPHERAL IV DATA: Not applicable SIGNED BY: RT Marga(Zachariah) June 23, 2024 3:51 PM documented in this encounterGlen[facility]12-03-2024 NoteHNO ID: [id number] Author: YENNI MOREAU RT(Zachariah) Service: ? Author Type: Head Men'S Tennis Coach Type: Progress Notes Filed: 06/23/2024 16:00 Note Text: Radiology Service Progress Note PATIENT NAME: Lina Isaac DATE OF SERVICE: June 23, 2024 TIME: 3:51 PM PATIENT IDENTITY VERIFICATION COMPLETED USING TWO (2) IDENTIFIERS: Name and Date of confirmed by patient verbally. FALL SCREENING: Has the patient had 2 falls in the last year or 1 fall with injury or currently using an Ambulatory Assistive Device (Walker, Cane, Wheelchair, Crutches, etc.)? No PATIENT GENDER DATA: Female. status: : No status: NO. PATIENT RELEVANT IMPLANT DATA REVIEWED: Yes PATIENT PRESENTS WITH AN IMPLANTABLE OR ATTACHED MATERIAL MOVERS: No RADIOLOGY DEPARTMENT: General X-ray: Exam(s) Completed: Upper Extremity X-Ray(s): Hand, right PERIPHERAL IV DATA: Not applicable SIGNED BY: RT Marga(R) June 23, 2024 3:51 [facility]12-03-2024 NoteHNO ID: [id number] Author: JESE ZHENG, Service: ? Author Type: Physician Type: Progress Notes Filed: 07/01/2024 22:45 Note Text: 3 weeks of sinus congestion and nasal drainage and cough and chest congestion. Use of OTC supplements such as mucinex without relief. Sputum and nasal drainage is yellow and green and sometimes bloody. Occasional wheezing. Is trying to increase water intake. Right hand middle finger with pain to the touch, swelling worse by the end of the day due to she is right hand dominant, not able to pick anything up with her right hand. Swelling into the hand. Started 10 days ago Patient presents with: F/U 3 Month Immunizations: Flu vaccination HPI: Lina Isaac is a 58 year old female who presents to the office today for review of health conditions. Concerns today: 3 weeks of sinus congestion and nasal drainage and cough and chest congestion. Use of OTC supplements such as mucinex without relief. Sputum and nasal drainage is yellow and green and sometimes bloody. Occasional wheezing. Is trying to increase water intake. Right hand middle finger with pain to the touch, swelling worse by the end of the day due to she is right hand dominant, not able to pick anything up with her right hand. Swelling into the hand. Started 10 days ago Ms. Isaac has past history of diabetes. Since our last visit she denies excessive thirst or increased frequency of urination, chest pain or dyspnea , new or unusual visual symptoms, and low sugar/hypoglycemic reactions. Depression- no. Follows a diabetic diet some of the time. She is compliant with medication(s) and is tolerating med(s) without any side effects. She reports checking her glucose on a once a day schedule with sugars in the <200 range. Patient's last HgA1C was Hemoglobin A1C (%) Date Value 03/19/2024 9.1 08/27/2023 11.2 08/14/2021 11.2 05/09/2021 12.1 Hemoglobin A1C (POCT) (%) Date Value 11/27/2023 9.3 05/27/2023 11.4 ) Last Ophthalmology exam was within the past 12 months Ms. Isaac reports history of hyperlipidemia. Current therapy includes atorvastatin (Lipitor) 40 mg. Denies side effects of muscle weakness or achiness. Her most recent lipid panels are reviewed. Cholesterol, Total (mg/dL) Date Value 03/19/2024 172 05/09/2021 205 HDL Cholesterol (mg/dL) Date Value 03/19/2024 40 05/09/2021 54 LDL Cholesterol (mg/dL) Date Value 03/19/2024 102 05/09/2021 127 LDL Cholesterol, Nonfasting (mg/dL) Date Value 02/19/2023 152 Triglyceride (mg/dL) Date Value 03/19/2024 150 05/09/2021 120 Ms. Isaac indicates a history of hypertension and states that she is feeling well and denies any symptoms referable to elevated blood pressure. Specifically denies headache, chest pain, palpitations, dyspnea, and peripheral edema. Patient denies any side effects of her medication(s) and is compliant with their regimen. Last 3 Encounter BP Readings: Date: BP: 06/23/2024 138/80 03/17/2024 136/80 11/27/2023 120/60 She watches her diet for sodium, low fat and low cholesterol some of the time. She does not check BP's generally. Martla gets minimal exercise. PAST MEDICAL HISTORY Diagnosis Date Asthma Bowel perforation 11/05/2012 C. difficile colitis 04/2016 Closed nondisplaced fracture of proximal phalanx of lesser toe of left foot with routine healing 10/07/2019 COVID-19 03/30/2021 Diabetes mellitus type 2 in obese 10/2013 A1C 6.8% Dyslipidemia 01/02/2019 Essential hypertension 08/11/2015 GERD (gastroesophageal reflux disease) Incisional hernia 06/26/2013 Injury to rectosigmoid colon 10/17/2012 Low HDL (under 40) 10/2013 Nephrolithiasis Osteoarthrosis, unspecified whether generalized or localized, other specified sites Osteoarthritis Bilateral knees Spasm of muscle Tobacco use disorder quit 2012 Unspecified hereditary and idiopathic peripheral neuropathy 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 Ramirez COLONOSCOPY 09/17/2022 repeat in 10 years EGD 09/17/2022 HERNIA REPAIR HX 06/22/2013 HYSTERECTOMY HX 2011 fistula with intestine HYSTEROSCOPY, DIAGNOSTIC (SEPARATE Hysteroscopy/Novasure LAP HYSTERECTOMY FOR UTERUS 250G OR LESS 10/09/2012 with vaginal sling, LSO, right salpingectomy LAPS ABD PRTMANDOMENTUM DX W/WO SPEC BR/WA SPX Laparoscopy LAPS REPAIR HERNIA EXCEPT INCAL/INGUN REDUCIBLE 05/2017 LIG/TRNSXJ FLP TUBE ABDL/VAG APPR UNI/BI 2001 Tubal ligation PAST SURGICAL HISTORY OF 01/30/2005 Left shoulder arthroscopy and debridement PAST SURGICAL HISTORY OF 02/2004 3rd toe left foot PAST SURGICAL HISTORY OF 03/14/2010 right total knee replacement PAST SURGICAL HISTORY OF 03/14/2009 left total knee replacement PAST SURGICAL HISTORY OF (more content not included)...[facility]10-15-2024 Telephone encounter Note* Telephone Encounter - Hayde Zhu MA - 05/05/2024 2:37 PM EDT Pt informed Hayde Zhu MA [facility]10-[facility]24 Miscellaneous Notes* Telephone Encounter - Hayde Zhu MA - 05/05/2024 2:37 PM EDT Pt informed Hayde Zhu MA * Telephone Encounter - Linnea Martinez PA-C - 05/05/2024 2:12 PM EDT I would recommend switching to Vitamin D 50,000 international unit(s) once weekly- stop current Vitamin D3 5000 units and start this new prescription. The following approved medication requests have been transmitted electronically. Requested Prescriptions Signed Prescriptions Disp Refills ergocalciferol 50,000 unit capsule (VITAMIN D2, DRISDOL) 12 capsule 3 Sig: Take 1 capsule by mouth one time a week. Authorizing Provider: LINNEA MARTINEZ PA-C * Telephone Encounter - Fabiana Cook LPN - 05/05/2024 11:33 AM EDT Pt. informed. She is taking all meds as prescribed. BS are 133-143 in the AM. Doing well. * Telephone Encounter - Jese Zheng DO - 05/05/2024 8:55 AM EDT Please call patient to see how she is doing 'her last A1c was 9.1%, which is slightly improved, but not at goal A1c of <7% yet. How are her blood glucose readings? Is she taking her medication for diabetes as prescribed? Her vitamin D levels were also low. Please make sure she is taking vitamin D3 at least 9588-9267 international unit(s) a day with a meal Jese Zheng DO documented in this encounterG[facility]10-15-2024 Telephone encounter Note * Telephone Encounter - Linnea Martinez PA-C - 05/05/2024 2:12 PM EDT I would recommend switching to Vitamin D 50,000 international unit(s) once weekly- stop current Vitamin D3 5000 units and start this new prescription. The following approved medication requests have been transmitted electronically. Requested Prescriptions Signed Prescriptions Disp Refills ergocalciferol 50,000 unit capsule (VITAMIN D2, DRISDOL) 12 capsule 3 Sig: Take 1 capsule by mouth one time a week. Authorizing Provider: LINNEA MARTINEZ PA-C [facility]10-[facility] Telephone encounter Note* Telephone Encounter - Fabiana Cook LPN - 05/05/2024 11:33 AM EDT Pt. informed. She is taking all meds as prescribed. BS are 133-143 in the AM. Doing well. [facility]10-[facility] Telephone encounter Note* Telephone Encounter - Jese Zheng DO - 05/05/2024 8:55 AM EDT Please call patient to see how she is doing 'her last A1c was 9.1%, which is slightly improved, but not at goal A1c of <7% yet. How are her blood glucose readings? Is she taking her medication for diabetes as prescribed? Her vitamin D levels were also low. Please make sure she is taking vitamin D3 at least 4671-5630 international unit(s) a day with a meal Jese Zheng DO [facility]10-14-2024 Telephone encounter Note* Telephone Encounter - Rivka Ramírez LPN - 05/04/2024 12:02 PM EDT Images from the original note were not included. prior authorization approved Payer: [facility] [phone] Note from payer: Your PA request cannot be processed electronically. For further inquiries please contact the number on the back of the member prescription card. (Message [phone]) Electronic appeal: Not supported View History Medication Being Authorized Blood-Glucose Sensor (FREESTYLE MICHI 3 PLUS SENSOR) ingrid Use to monitor glucose continuously and replace sensor every 15 days Dispense: 6 Each Refills: 3 Start: 05/04/2024 Class: Normal This order has been released to its destination. To be filled at: [id number] [place] [address] [address] [facility] - [phone] [facility]10-[facility] Miscellaneous Notes* Telephone Encounter - Rivka Ramírez LPN - 05/04/2024 12:02 PM EDT Images from the original note were not included. prior authorization approved Payer: [facility] [phone] Note from payer: Your PA request cannot be processed electronically. For further inquiries please contact the number on the back of the member prescription card. (Message [phone]) Electronic appeal: Not supported View History Medication Being Authorized Blood-Glucose Sensor (FREESTYLE MICHI 3 PLUS SENSOR) ingrid Use to monitor glucose continuously and replace sensor every 15 days Dispense: 6 Each Refills: 3 Start: 05/04/2024 Class: Normal This order has been released to its destination. To be filled at: [id number] - [place] [address] [address] [facility] - [phone] documented in this encounterGlenbeigh Hospital10-14-2024 Telephone encounter Note * Telephone Encounter - Susana Garcia RPh - 05/04/2024 10:17 AM EDT Patient's request for medication is as follows: Requested Prescriptions Signed Prescriptions Disp Refills Blood-Glucose Sensor (FREESTYLE MICHI 3 PLUS SENSOR) ingrid 6 Each 3 Sig: Use to monitor glucose continuously and replace sensor every 15 days Susana Garcia, PharmD, ROSANNE Primary Care Clinical Wood Furniture Assembler [facility] Work Phone: 1(441) 104-979010-14-2024 Miscellaneous Notes* Telephone Encounter - Susana Garcia RPh - 05/04/2024 10:17 AM EDT Patient's request for medication is as follows: Requested Prescriptions Signed Prescriptions Disp Refills Blood-Glucose Sensor (FREESTYLE MICHI 3 PLUS SENSOR) ingrid 6 Each 3 Sig: Use to monitor glucose continuously and replace sensor every 15 days Susana Garcia PharmD, ROSANNE Primary Care Clinical Wood Furniture Assembler documented in this encounterGlenbeigh Hospital10-03-2024 History of Present illness Narrative* Susana Garcia RPh - 04/23/2024 3:30 PM EDT Images from the original note were not included. Primary Care Pharmacy Visit CC (Reason for Consult): (E11.65) Uncontrolled type 2 diabetes mellitus with hyperglycemia (HCC) (primary encounter diagnosis) Goal(s): A1c <7% Last Collaborating Provider Visit: 03/17/[address] Norm Mills Bean Isaac is a 58 year old female presenting for follow up visit in person. Patient consentsto pharmacy collaborative practice agreement. Last Pharmacy Visit: 03/05/24 Interim Events: - 03/19/24 A1c results: improvement from 9.3% to 9.1% HPI: Reports doing well States BGs have been up and down last few days, noticing some higher readings just in last couple of days but unknown cause States she has been taking metformin but may need refill for it now Discussed possible addition of SGLT2i; would like to try increasing insulin dose again first beforeconsidering adding Current DM Medications: Metformin 1000 mg twice daily Trulicity 4.5 mg once weekly on Sundays Tresiba U200 110 units once daily every morning Novolog 16 units + sliding scale with meals 200-230 = add 2 units 230-260 = add 4 units 260-300 = add 6 units >300 = add 8 units Previously Trialed DM Meds: Ozempic - GI side effects Diet Denies any recent changes GLYCEMIC CONTROL: Glucometer present at visit: Yes Hypoglycemia: No CGM Data Past medical history reviewed. ALLERGIES Allergen Reactions Omnicef [Cefdinir] Itching Vaginitis severe Proventil [Albutero* Vomiting Can not tolerate generic albuterol 08/22/12 - MEM. Tramadol Hives Current Outpatient Medications Medication Sig Dispense Refill aspirin, enteric coated (ASPIRIN, ENTERIC COATED) 81 mg EC tablet Take 1 tablet by mouth once daily. 90 tablet 3 ibuprofen (MOTRIN) 800 mg tablet TAKE 1 TABLET BY MOUTH EVERY 8 HOURS NEEDED FOR PAIN WITH FOOD 60 tablet 1 dulaglutide (TRULICITY) 4.5 mg/0.5 mL pen injector Inject 4.5 mg subcutaneously one time a week. 6 mL 4 mupirocin (BACTROBAN) 2 % ointment Apply to affected area every 12 hours as needed (rash, skin lesions). 66 g 2 cyanocobalamin (VITAMIN B-12) 1,000 mcg tab Take 2 tablets by mouth once daily. 180 tablet 1 lisinopril (ZESTRIL) 10 mg tablet Take 1 tablet by mouth once daily. 90 tablet 3 Calcium Citrate-Vitamin D3 (CITRACAL+D) 315 mg-6.25 mcg (250 unit) tab Take 1 tablet by mouth once daily. 30 tablet 3 insulin degludec (TRESIBA FLEXTOUCH U-200) 200 unit/mL (3 mL) injection Inject 110 Units subcutaneously daily at bedtime. benzonatate (TESSALON PERLES) 100 mg capsule Take 1 capsule by mouth three times a day as needed for cough. 30 capsule 1 Cholecalciferol, Vitamin D3, 125 mcg (5,000 unit) cap Take 1 capsule by mouth once daily. 90 capsule 3 Oral Medication Containers (SHARPS CONTAINER) [facility]ps as directed. 1 Each 0 Blood-Glucose Sensor (FREESTYLE MICHI 3 SENSOR) ingrid Apply new sensor to back of upper arm every 14days 6 Each 4 flash glucose scanning reader (FREESTYLE MICHI 3 READER) Use to monitor blood glucose continuously 1 Each 0 insulin aspart U-100 (NOVOLOG U-100 INSULIN ASPART) 100 unit/mL Inject 16 units subcutaneously as directed plus sliding scale with meals. Insulin [place], Disposable, (UNIFINE PENTIPS) 31 gauge x 3/16 Use as directed 4 times daily with insulin 400 Each 3 flash glucose sensor (FREESTYLE MICHI 14 DAY SENSOR) kit Apply sensor to back of arm to check bloodsugars as directed. Change sensor every 2 weeks and rotate arms. 6 Each 3 famotidine (PEPCID) 20 mg tablet Take 1 tablet by mouth twice daily. 180 tablet 3 FLUoxetine (PROZAC) 20 mg capsule Take 1 capsule by mouth once daily. In the morning, for depression 90 capsule 1 atorvastatin (LIPITOR) 40 mg tablet Take 1 tablet by mouth once daily. 90 tablet 3 gabapentin (NEURONTIN) 100 mg capsule Take 1-2 capsules by mouth daily at bedtime for 30 days. For foot pain 60 capsule 5 alcohol swabs (BD SINGLE USE SWABS REGULAR) Use as directed 4 to 5 times daily to check blood sugars and with insulin injections 360 Each 3 metFORMIN (GLUCOPHAGE) 1,000 mg tablet Take 1 tablet by mouth twice daily. 180 tablet 3 diclofenac (VOLTAREN ARTHRITIS PAIN) 1 % topical gel Apply 2 g to affected area four times daily. 100 g 1 glucagon (BAQSIMI) 3 mg/actuation nasal spray Use 1 [place] in the nose as needed for low blood sugar. May repeat after 15 minutes using a new device if there is no response. 1 Each 3 polyethylene glycol 3350 (MIRALAX) 17 gram/dose powder 1 capful daily in the morning 1700 g 3 albuterol HFA (VENTOLIN HFA) 90 mcg/actuation inhaler Inhale 2 Puffs as instructed every 4 hours asneeded. For wheezing/shortness of breath. 18 g 3 blood sugar diagnostic (FREESTYLE PRECISION JEREMIAS STRIPS) test strip Use to test blood sugar up to twice daily as instructed. Dx: insulin-dependent DM 50 Strip 11 No current facility-administered medications for this visit. Pill bottles are not present. Adherence: denies missed doses. Rx coverage: Payor: SEAN / Plan: SEAN DEL CID / Product Type: EPO / Medications affordable? Yes PHARMACOTHERAPY PREVENTATIVE MEDS: On JANNIE/ARB: Yes On Statin: Yes On ASA: Yes EXAM: LMP 08/30/2012 Last 3 Encounter BP Readings: Date: BP: 03/17/2024 136/80 11/27/2023 120/60 09/20/2023 124/80 Wt: 93.9 kg (207 lb) BMI: 31.47 kg/(m^2) LABS: Lab Results Component Value Date HBA1C 9.1 03/19/2024 HBA1C 9.3 11/27/2023 HBA1C 11.2 08/27/2023 HBA1C 11.4 05/27/2023 HBA1C 11.4 02/19/2023 HBA1C 10.7 11/08/2022 HBA1C 11.2 08/14/2021 HBA1C 12.1 05/09/2021 HBA1C 10.3 08/05/2020 Glucose 212 03/19/2024 BUN 7 03/19/2024 Creatinine, Whole Blood (iSTAT) 0.47 03/19/2024 Sodium 142 03/19/2024 Potassium 4.1 03/19/2024 Chloride 106 03/19/2024 CO2 26 03/19/2024 Protein, Total 6.8 03/19/2024 Albumin 4.1 03/19/2024 Calcium 9.1 03/19/2024 Alkaline Phosphatase 76 03/19/2024 Bilirubin, Total 0.7 03/19/2024 AST 15 03/19/2024 ALT 15 03/19/2024 Lab Results Component Value Date CHOL 172 03/19/2024 CHOL 205 05/09/2021 LDL 102 03/19/2024 LDL 152 02/19/2023 LDL 127 05/09/2021 HDL 40 03/19/2024 HDL 54 05/09/2021 TG 150 03/19/2024 TG 120 05/09/2021 Albumin/Creat Ratio (mg/g) Date Value 03/19/2024 26 eGFR-All Other Races (.) Date Value 05/09/2021 >60 Estimated Glomerular Filtration Rate (mL/min/1.73m ) Date Value 03/19/2024 110 ASSESSMENT/PLAN: 1. Uncontrolled type 2 diabetes mellitus with hyperglycemia (HCC) - ICD9: 250.02, ICD10: E11.65 - Improving control per A1c; however, recent CGM report shows worsening control with unknown cause.May consider addition of SGLT2i in the future. - Increase Tresiba to 120 units once daily - Continue all other medications as currently prescribed - Statin prescribed - atorvastatin - Blood glucose monitoring on a continuous glucose monitoring schedule - Counseled on healthy diet and regular exercise - Discussed diabetic education issues of hypoglycemic/hyperglycemic symptoms and medication-specific side effects and monitoring - Follow up in 1 month, sooner should any other issues arise. - Due for A1c ~06/19/24 Follow Up: Next PCP visit: 06/23/24 Next PharmD visit: 06/04/24 Susana Garcia PharmD, BCACP Primary Care Clinical Wood Furniture Assembler I spent a total of 20 minutes on the date of the service which included preparing to see the patient, [id number] patient care, completing clinical documentation, counseling and educating the patient/family/caregiver, and ordering medications, tests, or procedures. documented in this encounterG[facility]10-03-2024 Instructions* Patient Instructions* Susana Garcia RPh - 04/23/2024 3:30 PM EDT Increase Tresiba to 120 units once daily Continue the following: Novolog 16 units + sliding scale with meals 200-230 = add 2 units 230-260 = add 4 units 260-300 = add 6 units >300 = add 8 units Metformin 1000 mg twice daily Trulicity 4.5 mg once weekly on Sundays documented in this encounterGlen[facility]igh Hospital10-03-2024 NoteHNO ID: [id number] Author: SUSANA GARCIA RPh Service: ? Author Type: Pharmacist Type: Progress Notes Filed: 04/23/2024 15:46 Note Text: Primary Care Pharmacy Visit CC (Reason for Consult): (E11.65) Uncontrolled type 2 diabetes mellitus with hyperglycemia (HCC) (primary encounter diagnosis) Goal(s): A1c <7% Last Collaborating Provider Visit: 03/17/[address] Norm Del Angel Poncho is a 58 year old female presenting for follow up visit in person. Patient consents to pharmacy collaborative practice agreement. Last Pharmacy Visit: 03/05/24 Interim Events: - 03/19/24 A1c results: improvement from 9.3% to 9.1% HPI: Reports doing well States BGs have been up and down last few days, noticing some higher readings just in last couple of days but unknown cause States she has been taking metformin but may need refill for it now Discussed possible addition of SGLT2i; would like to try increasing insulin dose again first before considering adding Current DM Medications: Metformin 1000 mg twice daily Trulicity 4.5 mg once weekly on Sundays Tresiba U200 110 units once daily every morning Novolog 16 units + sliding scale with meals 200-230 = add 2 units 230-260 = add 4 units 260-300 = add 6 units >300 = add 8 units Previously Trialed DM Meds: Ozempic - GI side effects Diet Denies any recent changes GLYCEMIC CONTROL: Glucometer present at visit: Yes Hypoglycemia: No CGM Data Past medical history reviewed. ALLERGIES Allergen Reactions Omnicef [Cefdinir] Itching Vaginitis severe Proventil [Albutero* Vomiting Can not tolerate generic albuterol 08/22/12 - MEM. Tramadol Hives Current Outpatient Medications Medication Sig Dispense Refill aspirin, enteric coated (ASPIRIN, ENTERIC COATED) 81 mg EC tablet Take 1 tablet by mouth once daily. 90 tablet 3 ibuprofen (MOTRIN) 800 mg tablet TAKE 1 TABLET BY MOUTH EVERY 8 HOURS NEEDED FOR PAIN WITH FOOD 60 tablet 1 dulaglutide (TRULICITY) 4.5 mg/0.5 mL pen injector Inject 4.5 mg subcutaneously one time a week. 6 mL 4 mupirocin (BACTROBAN) 2 % ointment Apply to affected area every 12 hours as needed (rash, skin lesions). 66 g 2 cyanocobalamin (VITAMIN B-12) 1,000 mcg tab Take 2 tablets by mouth once daily. 180 tablet 1 lisinopril (ZESTRIL) 10 mg tablet Take 1 tablet by mouth once daily. 90 tablet 3 Calcium Citrate-Vitamin D3 (CITRACAL+D) 315 mg-6.25 mcg (250 unit) tab Take 1 tablet by mouth once daily. 30 tablet 3 insulin degludec (TRESIBA FLEXTOUCH U-200) 200 unit/mL (3 mL) injection Inject 110 Units subcutaneously daily at bedtime. benzonatate (TESSALON PERLES) 100 mg capsule Take 1 capsule by mouth three times a day as needed for cough. 30 capsule 1 Cholecalciferol, Vitamin D3, 125 mcg (5,000 unit) cap Take 1 capsule by mouth once daily. 90 capsule 3 Oral Medication Containers (SHARPS CONTAINER) [facility] [place] to [place]ps as directed. 1 Each 0 Blood-Glucose Sensor (FREESTYLE MICHI 3 SENSOR) ingrid Apply new sensor to back of upper arm every 14 days 6 Each 4 flash glucose scanning reader (FREESTYLE MICHI 3 READER) Use to monitor blood glucose continuously 1 Each 0 insulin aspart U-100 (NOVOLOG U-100 INSULIN ASPART) 100 unit/mL Inject 16 units subcutaneously as directed plus sliding scale with meals. Insulin [place], Disposable, (UNIFINE PENTIPS) 31 gauge x 3/16 Use as directed 4 times daily with insulin 400 Each 3 flash glucose sensor (FREESTYLE MICHI 14 DAY SENSOR) kit Apply sensor to back of arm to check blood sugars as directed. Change sensor every 2 weeks and rotate arms. 6 Each 3 famotidine (PEPCID) 20 mg tablet Take 1 tablet by mouth twice daily. 180 tablet 3 FLUoxetine (PROZAC) 20 mg capsule Take 1 capsule by mouth once daily. In the morning, for depression 90 capsule 1 atorvastatin (LIPITOR) 40 mg tablet Take 1 tablet by mouth once daily. 90 tablet 3 gabapentin (NEURONTIN) 100 mg capsule Take 1-2 capsules by mouth daily at bedtime for 30 days. For foot pain 60 capsule 5 alcohol swabs (BD SINGLE USE SWABS REGULAR) Use as directed 4 to 5 times daily to check blood sugars and with insulin injections 360 Each 3 metFORMIN (GLUCOPHAGE) 1,000 mg tablet Take 1 tablet by mouth twice daily. 180 tablet 3 diclofenac (VOLTAREN ARTHRITIS PAIN) 1 % topical gel Apply 2 g to affected area four times daily. 100 g 1 glucagon (BAQSIMI) 3 mg/actuation nasal spray Use 1 [place] in the nose as needed for low blood sugar. May repeat after 15 minutes using a new device if there is no response. 1 Each 3 polyethylene glycol 3350 (MIRALAX) 17 gram/dose powder 1 capful daily in the morning 1700 g 3 albuterol HFA (VENTOLIN HFA) 90 mcg/actuation inhaler Inhale 2 Puffs as instructed every 4 hours as needed. For wheezing/shortness of breath. 18 g 3 blood sugar diagnostic (FREESTYLE PRECISION JEREMIAS STRIPS) test strip Use to test blood sugar up to twice daily as instructed. Dx: insulin-dependent DM 50 (more content not included)...[facility]09-25-2024 Note* Letter - Coordinator, Mammography - 04/15/2024 3:17 PM EDT [address] [address] April 16, 2024 PID: [id number] Lina Isaac [address] [place] [address] Dear Ms. Isaac, We are pleased to inform you that the results of your recent breast imaging exam on 04/14/2024 are normal. Breast tissue can be either dense or not dense. Dense tissue makes it harder to find breast cancer on a mammogram and also raises the risk of developing breast cancer. Your breast tissue is not dense. Talk to your healthcare provider about breast density, risks for breast cancer, and your individual situation. Early detection of cancer is very important. We also understand recommendations regarding breast cancer screening are controversial. Please discuss with your primary care provider which strategy is best for you and whether a mammogram is right for you. Your imaging studies and report will be kept on file at [facility] as part of your permanent medical record and are available for your continuing care. Thank you for allowing us to help in meeting your health care needs. Sincerely, Dr. Rudd Interpreting Radiologist [facility] (Normal over 40) [facility]09-25-2024 Miscellaneous Notes* Letter - Coordinator, Mammography - 04/15/2024 3:17 PM EDT [address] [address] April 16, 2024 PID: [id number] Lina Isaac [address] [place] [address] Dear Ms. Isaac, We are pleased to inform you that the results of your recent breast imaging exam on 04/14/2024 are normal. Breast tissue can be either dense or not dense. Dense tissue makes it harder to find breast cancer on a mammogram and also raises the risk of developing breast cancer. Your breast tissue is not dense. Talk to your healthcare provider about breast density, risks for breast cancer, and your individual situation. Early detection of cancer is very important. We also understand recommendations regarding breast cancer screening are controversial. Please discuss with your primary care provider which strategy is best for you and whether a mammogram is right for you. Your imaging studies and report will be kept on file at [facility] as part of your permanent medical record and are available for your continuing care. Thank you for allowing us to help in meeting your health care needs. Sincerely, Dr. Rudd Interpreting Radiologist [facility] (Normal over 40) documented in this encounterGlen[facility]09-24-[facility]24 History of Present illness Narrative* Trinidad Leary RT(R) - 04/14/2024 5:00 PM EDT Radiology Service Progress Note PATIENT NAME: Lina Isaac DATE OF SERVICE: April 14, 2024 TIME: 5:14 PM PATIENT IDENTITY VERIFICATION COMPLETED USING TWO (2) IDENTIFIERS: Name and Date of confirmedby patient verbally. FALL SCREENING: Has the patient had 2 falls in the last year or 1 fall with injury or currently using an Ambulatory Assistive Device (Walker, Cane, Wheelchair, Crutches, etc.)? No PATIENT GENDER DATA: Female. status: : No status: N/A PATIENT RELEVANT IMPLANT DATA REVIEWED: Not Applicable PATIENT PRESENTS WITH AN IMPLANTABLE OR ATTACHED MATERIAL MOVERS: No RADIOLOGY DEPARTMENT: Mammography PERIPHERAL IV DATA: Not applicable SIGNED BY: BILLY Craven) April 14, 2024 5:14 PM documented in this encounterGlen[facility]09-24-2024 NoteHNO ID: [id number] Author: TRINIDAD LEARY RT(R) Service: Radiology Author Type: Technologist Type: Progress Notes Filed: 04/14/2024 17:15 Note Text: Radiology Service Progress Note PATIENT NAME: Lina Isaac DATE OF SERVICE: April 14, 2024 TIME: 5:14 PM PATIENT IDENTITY VERIFICATION COMPLETED USING TWO (2) IDENTIFIERS: Name and Date of confirmed by patient verbally. FALL SCREENING: Has the patient had 2 falls in the last year or 1 fall with injury or currently using an Ambulatory Assistive Device (Walker, Cane, Wheelchair, Crutches, etc.)? No PATIENT GENDER DATA: Female. status: : No status: N/A PATIENT RELEVANT IMPLANT DATA REVIEWED: Not Applicable PATIENT PRESENTS WITH AN IMPLANTABLE OR ATTACHED MATERIAL MOVERS: No RADIOLOGY DEPARTMENT: Mammography PERIPHERAL IV DATA: Not applicable SIGNED BY: RT Herber(R) April 14, 2024 5:14 [facility]09-17-2024 Telephone encounter Note* Telephone Encounter - Aspen Almaguer RN - 04/07/2024 10:13 AM EDT The patient has been identified by name and date of : Yes Caregiver verified no other encounters exist for this prescription request: Yes Caregiver confirmed with patient/requestor that no other refills are due, in the near future, with this provider at this time: Yes The last office visit in the department: 03/17/2024 Does the patient have a future office visit with this provider/department: 06/23/2024 Requested Prescriptions Pending Prescriptions Disp Refills aspirin, enteric coated (ASPIRIN, ENTERIC COATED) 81 mg EC tablet 90 tablet 3 Sig: Take 1 tablet by mouth once daily. ibuprofen (MOTRIN) 800 mg tablet 60 tablet 1 Sig: TAKE 1 TABLET BY MOUTH EVERY 8 HOURS NEEDED FOR PAIN WITH FOOD Aspen Almaguer RN April 07, 2024 10:14 AM [facility]09-17-2024 Miscellaneous Notes* Telephone Encounter - Aspen Almaguer RN - 04/07/2024 10:13 AM EDT The patient has been identified by name and date of : Yes Caregiver verified no other encounters exist for this prescription request: Yes Caregiver confirmed with patient/requestor that no other refills are due, in the near future, with this provider at this time: Yes The last office visit in the department: 03/17/2024 Does the patient have a future office visit with this provider/department: 06/23/2024 Requested Prescriptions Pending Prescriptions Disp Refills aspirin, enteric coated (ASPIRIN, ENTERIC COATED) 81 mg EC tablet 90 tablet 3 Sig: Take 1 tablet by mouth once daily. ibuprofen (MOTRIN) 800 mg tablet 60 tablet 1 Sig: TAKE 1 TABLET BY MOUTH EVERY 8 HOURS NEEDED FOR PAIN WITH FOOD Aspen Almaguer RN April 07, 2024 10:14 AM documented in this encounterGlenbeigh Hospital08-28-2024 NoteHNO ID: [id number] Author: JESE ZHENG, DO Service: ? Author Type: Physician Type: Progress Notes Filed: 03/18/2024 22:18 Note Text: Patient presents with: F/U 3 Month HPI: Otismorteza Isaac is a 58 year old female who presents to the office today for review of health conditions. Concerns today: Overall she feels she is doing better Still some fatigue but she has stressors with trying to help out with her 2 young grandsons as well as granddaughters with mental health concerns. She is using her CGM for glucose monitoring and feeling that this has been beneficial to help her know where her glucose readings are Ms. Isaac has past history of diabetes. Since our last visit she denies excessive thirst or increased frequency of urination, chest pain or dyspnea , new or unusual visual symptoms, and low sugar/hypoglycemic reactions. Depression- no. Follows a diabetic diet some of the time. She is compliant with medication(s) and is tolerating med(s) without any side effects. She reports checking her glucose on a once a day schedule with sugars in the fasting <200s range. Patient's last HgA1C was Hemoglobin A1C (%) Date Value 08/27/2023 11.2 08/14/2021 11.2 05/09/2021 12.1 Hemoglobin A1C (POCT) (%) Date Value 11/27/2023 9.3 05/27/2023 11.4 ) Last Ophthalmology exam was within the past 12 months Ms. Isaac reports history of hyperlipidemia. Current therapy includes atorvastatin (Lipitor) 40 mg. Denies side effects of muscle weakness or achiness. Her most recent lipid panels are reviewed. Cholesterol, Total (mg/dL) Date Value 08/27/2023 175 05/09/2021 205 HDL Cholesterol (mg/dL) Date Value 08/27/2023 52 05/09/2021 54 LDL Cholesterol (mg/dL) Date Value 08/27/2023 102 05/09/2021 127 LDL Cholesterol, Nonfasting (mg/dL) Date Value 02/19/2023 152 Triglyceride (mg/dL) Date Value 08/27/2023 106 05/09/2021 120 Ms. Isaac indicates a history of hypertension and states that she is feeling well and denies any symptoms referable to elevated blood pressure. Specifically denies headache, chest pain, palpitations, dyspnea, and peripheral edema. Patient denies any side effects of her medication(s) and is compliant with their regimen. Last 3 Encounter BP Readings: Date: BP: 03/17/2024 136/80 11/27/2023 120/60 09/20/2023 124/80 She watches her diet for sodium, low fat and low cholesterol some of the time. She does not check BP's generally. Lina gets minimal exercise. PAST MEDICAL HISTORY No date: Asthma 11/05/2012: Bowel perforation 04/2016: C. difficile colitis 10/07/2019: Closed nondisplaced fracture of proximal phalanx of lesser toe of left foot with routine healing 03/30/2021: COVID-19 10/2013: Diabetes mellitus type 2 in obese Comment: A1C 6.8% 01/02/2019: Dyslipidemia 08/11/2015: Essential hypertension No date: GERD (gastroesophageal reflux disease) 06/26/2013: Incisional hernia 10/17/2012: Injury to rectosigmoid colon 10/2013: Low HDL (under 40) No date: Nephrolithiasis No date: Osteoarthrosis, unspecified whether generalized or localized, other specified sites Comment: Osteoarthritis Bilateral knees No date: Spasm of muscle No date: Tobacco use disorder Comment: quit 2012 No date: Unspecified hereditary and idiopathic peripheral neuropathy 11/27/2012: Vaginal fistula PAST SURGICAL HISTORY 1986: DELIVERY ONLY Comment: , low cervical 2001: DELIVERY ONLY Comment: , low transverse 08/16/2015: COLONOSCOPY Comment: Dr. Ramirez 09/17/2022: COLONOSCOPY Comment: repeat in 10 years 09/17/2022: EGD 06/22/2013: HERNIA REPAIR HX 2011: HYSTERECTOMY HX Comment: fistula with intestine No date: HYSTEROSCOPY, DIAGNOSTIC (SEPARATE Comment: Hysteroscopy/Novasure 10/09/2012: LAP HYSTERECTOMY FOR UTERUS 250G OR LESS Comment: with vaginal sling, LSO, right salpingectomy No date: LAPS ABD PRTMANDOMENTUM DX W/WO SPEC BR/WA SPX Comment: Laparoscopy 05/2017: LAPS REPAIR HERNIA EXCEPT INCAL/INGUN REDUCIBLE 2001: LIG/TRNSXJ FLP TUBE ABDL/VAG APPR UNI/BI Comment: Tubal ligation 01/30/2005: PAST SURGICAL HISTORY OF Comment: Left shoulder arthroscopy and debridement 02/2004: PAST SURGICAL HISTORY OF Comment: 3rd toe left foot 03/14/2010: PAST SURGICAL HISTORY OF Comment: right total knee replacement 03/14/2009: PAST SURGICAL HISTORY OF Comment: left total knee replacement 01/23/2013: PAST SURGICAL HISTORY OF Comment: Ileostomy closure. 01/06/2016: PAST SURGICAL HISTORY OF; Left Comment: left ring trigger release 06/22/2013: RPR 1ST INCAL/VNT HERNIA INCARCERATED Comment: at ileostomy site - 11x[address] mesh 07/23/2014: RPR RECRT INCAL/VNT HERNIA INCARCERATED Comment: at midline' 10/11/2014: RPR RECRT INCAL/VNT HERNIA INCARCERATED Comment: - recurrent small bowel resection, enterotomy Social History Tobacco Use Smoking status: Former Current pack (more content not included)...[facility]08-28-2024 History of Present illness Narrative* Jese Zheng, - 03/18/2024 10:13 PM EDT Patient presents with: F/U 3 Month HPI: Otismorteza Isaac is a 58 year old female who presents to the office today for review of health conditions. Concerns today: Overall she feels she is doing better Still some fatigue but she has stressors with trying to help out with her 2 young grandsons as wellas granddaughters with mental health concerns. She is using her CGM for glucose monitoring and feeling that this has been beneficial to help her know where her glucose readings are Ms. Isaac has past history of diabetes. Since our last visit she denies excessive thirst or increased frequency of urination, chest pain or dyspnea , new or unusual visual symptoms, and low sugar/hypoglycemic reactions. Depression- no. Follows a diabetic diet some of the time. She is compliant with medication(s) and is tolerating med(s) without any side effects. She reports checking her glucose on a once a day schedule with sugars in the fasting <200s range. Patient's last HgA1C was Hemoglobin A1C (%) Date Value 08/27/2023 11.2 08/14/2021 11.2 05/09/2021 12.1 Hemoglobin A1C (POCT) (%) Date Value 11/27/2023 9.3 05/27/2023 11.4 ) Last Ophthalmology exam was within the past 12 months Ms. Isaac reports history of hyperlipidemia. Current therapy includes atorvastatin (Lipitor) 40 mg.Denies side effects of muscle weakness or achiness. Her most recent lipid panels are reviewed. Cholesterol, Total (mg/dL) Date Value 08/27/2023 175 05/09/2021 205 HDL Cholesterol (mg/dL) Date Value 08/27/2023 52 05/09/2021 54 LDL Cholesterol (mg/dL) Date Value 08/27/2023 102 05/09/2021 127 LDL Cholesterol, Nonfasting (mg/dL) Date Value 02/19/2023 152 Triglyceride (mg/dL) Date Value 08/27/2023 106 05/09/2021 120 Ms. Isaac indicates a history of hypertension and states that she is feeling well and denies any symptoms referable to elevated blood pressure. Specifically denies headache, chest pain, palpitations,dyspnea, and peripheral edema. Patient denies any side effects of her medication(s) and is compliant with their regimen. Last 3 Encounter BP Readings: Date: BP: 03/17/2024 136/80 11/27/2023 120/60 09/20/2023 124/80 She watches her diet for sodium, low fat and low cholesterol some of the time. She does not check BP's generally. iLna gets minimal exercise. PAST MEDICAL HISTORY No date: Asthma 11/05/2012: Bowel perforation 04/2016: C. difficile colitis 10/07/2019: Closed nondisplaced fracture of proximal phalanx of lesser toe of left foot with routine healing 03/30/2021: COVID-19 10/2013: Diabetes mellitus type 2 in obese Comment: A1C 6.8% 01/02/2019: Dyslipidemia 08/11/2015: Essential hypertension No date: GERD (gastroesophageal reflux disease) 06/26/2013: Incisional hernia 10/17/2012: Injury to rectosigmoid colon 10/2013: Low HDL (under 40) No date: Nephrolithiasis No date: Osteoarthrosis, unspecified whether generalized or localized, other specified sites Comment: Osteoarthritis Bilateral knees No date: Spasm of muscle No date: Tobacco use disorder Comment: quit 2012 No date: Unspecified hereditary and idiopathic peripheral neuropathy 11/27/2012: Vaginal fistula PAST SURGICAL HISTORY 1987: DELIVERY ONLY Comment: , low cervical 2001: DELIVERY ONLY Comment: , low transverse 08/16/2015: COLONOSCOPY Comment: Dr. Ramirez 09/17/2022: COLONOSCOPY Comment: repeat in 10 years 09/17/2022: EGD 06/22/2013: HERNIA REPAIR HX 2011: HYSTERECTOMY HX Comment: fistula with intestine No date: HYSTEROSCOPY, DIAGNOSTIC (SEPARATE Comment: Hysteroscopy/Novasure 10/09/2012: LAP HYSTERECTOMY FOR UTERUS 250G OR LESS Comment: with vaginal sling, LSO, right salpingectomy No date: LAPS ABD PRTM&OMENTUM DX W/WO SPEC BR/WA SPX Comment: Laparoscopy 05/2017: LAPS REPAIR HERNIA EXCEPT INCAL/INGUN REDUCIBLE 2001: LIG/TRNSXJ FLP TUBE ABDL/VAG APPR UNI/BI Comment: Tubal ligation 01/30/2005: PAST SURGICAL HISTORY OF Comment: Left shoulder arthroscopy and debridement 02/2004: PAST SURGICAL HISTORY OF Comment: 3rd toe left foot 03/14/2010: PAST SURGICAL HISTORY OF Comment: right total knee replacement 03/14/2009: PAST SURGICAL HISTORY OF Comment: left total knee replacement 01/23/2013: PAST SURGICAL HISTORY OF Comment: Ileostomy closure. 01/06/2016: PAST SURGICAL HISTORY OF; Left Comment: left ring trigger release 06/22/2013: RPR 1ST INCAL/VNT HERNIA INCARCERATED Comment: at ileostomy site - 11x14 [address] \mesh 07/23/2014: RPR RECRT INCAL/VNT HERNIA INCARCERATED Comment: at midline' 10/11/2014: RPR RECRT INCAL/VNT HERNIA INCARCERATED Comment: - recurrent small bowel resection, enterotomy Social History Tobacco Use Smoking status: Former Current packs/day: 0.00 Average packs/day: 0.5 packs/day for 24.0 years (12.0 ttl pk-yrs) Types: Cigarettes Start date: 05/13/1989 Quit date: 05/13/2013 Years since quittin.8 Smokeless tobacco: Never Vaping Use Vaping status: Never Used Substance Use Topics Alcohol use: No Drug use: No FAMILY HISTORY Problem Relation Age of Onset Hypertension Mother Diabetes Mother Cancer Maternal Uncle throat cancer Hypertension Sister Diabetes Sister other (hyperlipidemia) Sister Allergies: ALLERGIES Allergen Reactions Omnicef [Cefdinir] Itching Vaginitis severe Proventil [Albutero* Vomiting Can not tolerate generic albuterol 08/22/12 - MEM. Tramadol Hives Current Meds: dulaglutide (TRULICITY) 4.5 mg/0.5 mL pen injector Inject 4.5 mg subcutaneously one time a week. ibuprofen (MOTRIN) 800 mg tablet TAKE 1 TABLET BY MOUTH EVERY 8 HOURS NEEDED FOR PAIN WITH FOOD mupirocin (BACTROBAN) 2 % ointment Apply to affected area every 12 hours as needed (rash, skin lesions). cyanocobalamin (VITAMIN B-12) 1,000 mcg tab Take 2 tablets by mouth once daily. lisinopril (ZESTRIL) 10 mg tablet Take 1 tablet by mouth once daily. Calcium Citrate-Vitamin D3 (CITRACAL+D) 315 mg-6.25 mcg (250 unit) tab Take 1 tablet by mouth once daily. insulin degludec (TRESIBA FLEXTOUCH U-200) 200 unit/mL (3 mL) injection Inject 110 Units subcutaneously daily at bedtime. benzonatate (TESSALON PERLES) 100 mg capsule Take 1 capsule by mouth three times a day as needed for cough. Cholecalciferol, Vitamin D3, 125 mcg (5,000 unit) cap Take 1 capsule by mouth once daily. Oral Medication Containers (SHARPS CONTAINER) misc Use to collect sharps as directed. Blood-Glucose Sensor (FREESTYLE MICHI 3 SENSOR) ingrid Apply new sensor to back of upper arm every 14days flash glucose scanning reader (Human Factor AnalyticsSTYLE MICHI 3 READER) Use to monitor blood glucose continuously insulin aspart U-100 (NOVOLOG U-100 INSULIN ASPART) 100 unit/mL Inject 16 units subcutaneously as directed plus sliding scale with meals. Insulin [place], Disposable, (UNIFINE PENTIPS) 31 gauge x 3/16 Use as directed 4 times daily with insulin flash glucose sensor (FREESTYLE MICHI 14 DAY SENSOR) kit Apply sensor to back of arm to check bloodsugars as directed. Change sensor every 2 weeks and rotate arms. famotidine (PEPCID) 20 mg tablet Take 1 tablet by mouth twice daily. FLUoxetine (PROZAC) 20 mg capsule Take 1 capsule by mouth once daily. In the morning, for depression atorvastatin (LIPITOR) 40 mg tablet Take 1 tablet by mouth once daily. aspirin, enteric coated (ASPIRIN, ENTERIC COATED) 81 mg EC tablet Take 1 tablet by mouth once daily. gabapentin (NEURONTIN) 100 mg capsule Take 1-2 capsules by mouth daily at bedtime for 30 days. For foot pain alcohol swabs (BD SINGLE USE SWABS REGULAR) Use as directed 4 to 5 times daily to check blood sugars and with insulin injections metFORMIN (GLUCOPHAGE) 1,000 mg tablet Take 1 tablet by mouth twice daily. diclofenac (VOLTAREN ARTHRITIS PAIN) 1 % topical gel Apply 2 g to affected area four times daily. glucagon (BAQSIMI) 3 mg/actuation nasal spray Use 1 [place] in the nose as needed for low blood sugar. May repeat after 15 minutes using a new device if there is no response. polyethylene glycol 3350 (MIRALAX) 17 gram/dose powder 1 capful daily in the morning albuterol HFA (VENTOLIN HFA) 90 mcg/actuation inhaler Inhale 2 Puffs as instructed every 4 hours asneeded. For wheezing/shortness of breath. blood sugar diagnostic (FREESTYLE PRECISION JEREMIAS STRIPS) test strip Use to test blood sugar up to twice daily as instructed. Dx: insulin-dependent DM Review of Systems: The remainder of the review of systems is negative. PE: 03/17/24 1458 BP: 136/80 Pulse: 80 Resp: 16 Temp: 36.2 C (97.1 F) TempSrc: Right Tympanic Weight: 93.9 kg (207 lb) Gen: A&O, NAD, non-toxic appearing, Pleasant, cooperative HEENT: NT/AC, PERRLA, EOMs intact b/l, nares clear and patent b/l, pharynx without erythema, exudate or lesions. Uvula midline. MMM Neck: supple, No cervical LAD, no thyromegaly, no carotid bruits CV: RRR, normal S1 and S2, no murmurs, no gallops, no rubs, Pulses 2+ and symmetric in UE and LE b/l Lungs: normal respiratory effort, CTA b/l, no wheezing or rhonchi or rales Abd: soft,obese, NT, ND, +BS, no hepatosplenomegaly MS: FROM all 4 extremities Neuro: CN II-XII intact b/l, strength 5/5 b/l UE and LE, DTRs 2/4 UE and LE, sensation intact. Skin: warm, dry, intact, No rashes or lesions on exposed skin. Foot exam: Monofilament wnl on right and left feet. ASSESSMENT/PLAN: 1. Type 2 diabetes mellitus without complication, with long-term current use of insulin (HCC) - ICD9: 250.00, V58.67, ICD10: E11.9, Z79.4 (primary diagnosis) - Control undetermined, due for labs - Continue current medications - Blood glucose monitoring on a continuous glucose monitoring schedule - Counseled on healthy diet and regular exercise - Discussed need for and benefit of weight loss. BMI 31.47 kg/(m^2) - HEMOGLOBIN A1C - COMPREHENSIVE METABOLIC PANEL - COMPLETE BLOOD COUNT AND DIFFERENTIAL 2. Vitamin B12 deficiency - ICD9: 266.2, ICD10: E53.8 Labs as ordered - VITAMIN B12 3. Dyslipidemia - ICD9: 272.4, ICD10: E78.5 - Control undetermined, due for labs - Continue current medications - Counseled on healthy diet and regular exercise - LIPID PANEL BASIC - COMPREHENSIVE METABOLIC PANEL - COMPLETE BLOOD COUNT AND DIFFERENTIAL 4. Vitamin D deficiency - ICD9: 268.9, ICD10: E55.9 Continue supplement - VITAMIN D 25 HYDROXY 5. Essential hypertension - ICD9: 401.9, ICD10: I10 - Controlled - Continue current medications - Recommend home blood pressure monitoring, to bring results to next visit - Encouraged sodium restriction, DASH or Mediterranean diet - Recommend regular aerobic exercise 6. Gastroesophageal reflux disease, unspecified whether esophagitis present - ICD9: 530.81, ICD10: K21.9 - Discussed lifestyle modifications including losing weight, limiting caffeine, no meals three hours before sleep, and head of bed elevation Jese Zheng DO To ER if develops chest pain, shortness of breath, or severe worsening of symptoms. Discussed risks, benefits, alternatives, and potential side effects of medications. Patient expressed understanding and agreed with the plan. Jese Zheng DO [address] [place] [address] documented in this [facility]24 History of Present illness Narrative* Susana Garcia, [facility] - 03/05/2024 1:30 PM EDT Images from the original note were not included. Primary Care Pharmacy Visit CC (Reason for Consult): (E11.65) Uncontrolled type 2 diabetes mellitus with hyperglycemia (HCC) (primary encounter diagnosis) Goal(s): A1c <7% Last Collaborating Provider Visit: 11/27/[address] Norm Mills Bean Isaac is a 58 year old female presenting for follow up visit in person. Patient consentsto pharmacy collaborative practice agreement. Last Pharmacy Visit: 01/09/24 - Trulicity switched to Ozempic Interim Events: - 01/28/24 - switched back to Trulicity d/t side effects with Ozempic HPI: Reports doing well now States switching to Ozempic was unbearable. Experience awful side effects compared to how she tolerated Trulicity. Switched back to Trulicity about 2 weeks after stopping Ozempic, has now had about 1month back on Trulicity and tolerating well again In the last couple weeks has not had to add from sliding scale to Novolog with meals Current DM Medications: Metformin 1000 mg BID Trulicity 4.5 mg once weekly on Sundays Tresiba 110 units once daily every morning Novolog 16 units + sliding scale with meals 200-230 = add 2 units 230-260 = add 4 units 260-300 = add 6 units >300 = add 8 units GLYCEMIC CONTROL: Glucometer present at visit: Yes Hypoglycemia: No CGM Data Past medical history reviewed. ALLERGIES Allergen Reactions Omnicef [Cefdinir] Itching Vaginitis severe Proventil [Albutero* Vomiting Can not tolerate generic albuterol 08/22/12 - MEM. Tramadol Hives Current Outpatient Medications Medication Sig Dispense Refill dulaglutide (TRULICITY) 4.5 mg/0.5 mL pen injector Inject 4.5 mg subcutaneously one time a week. 6 mL 4 ibuprofen (MOTRIN) 800 mg tablet TAKE 1 TABLET BY MOUTH EVERY 8 HOURS NEEDED FOR PAIN WITH FOOD 60 tablet 1 mupirocin (BACTROBAN) 2 % ointment Apply to affected area every 12 hours as needed (rash, skin lesions). 66 g 2 cyanocobalamin (VITAMIN B-12) 1,000 mcg tab Take 2 tablets by mouth once daily. 180 tablet 1 lisinopril (ZESTRIL) 10 mg tablet Take 1 tablet by mouth once daily. 90 tablet 3 Calcium Citrate-Vitamin D3 (CITRACAL+D) 315 mg-6.25 mcg (250 unit) tab Take 1 tablet by mouth once daily. 30 tablet 3 insulin degludec (TRESIBA FLEXTOUCH U-200) 200 unit/mL (3 mL) injection Inject 110 Units subcutaneously daily at bedtime. benzonatate (TESSALON PERLES) 100 mg capsule Take 1 capsule by mouth three times a day as needed for cough. 30 capsule 1 Cholecalciferol, Vitamin D3, 125 mcg (5,000 unit) cap Take 1 capsule by mouth once daily. 90 capsule 3 Oral Medication Containers (SHARPS CONTAINER[place] [facility] [place] as directed. 1 Each 0 Blood-Glucose Sensor (FREESTYLE MICHI 3 SENSOR) ingrid Apply new sensor to back of upper arm every 14days 6 Each 4 flash glucose scanning reader (FREESTYLE MICHI 3 READER) Use to monitor blood glucose continuously 1 Each 0 insulin aspart U-100 (NOVOLOG U-100 INSULIN ASPART) 100 unit/mL Inject 16 units subcutaneously as directed plus sliding scale with meals. Insulin [place], Disposable, (UNIFINE PENTIPS) 31 gauge x 3/16 Use as directed 4 times daily with insulin 400 Each 3 flash glucose sensor (FREESTYLE MICHI 14 DAY SENSOR) kit Apply sensor to back of arm to check bloodsugars as directed. Change sensor every 2 weeks and rotate arms. 6 Each 3 famotidine (PEPCID) 20 mg tablet Take 1 tablet by mouth twice daily. 180 tablet 3 FLUoxetine (PROZAC) 20 mg capsule Take 1 capsule by mouth once daily. In the morning, for depression 90 capsule 1 atorvastatin (LIPITOR) 40 mg tablet Take 1 tablet by mouth once daily. 90 tablet 3 aspirin, enteric coated (ASPIRIN, ENTERIC COATED) 81 mg EC tablet Take 1 tablet by mouth once daily. 90 tablet 3 gabapentin (NEURONTIN) 100 mg capsule Take 1-2 capsules by mouth daily at bedtime for 30 days. For foot pain 60 capsule 5 alcohol swabs (BD SINGLE USE SWABS REGULAR) Use as directed 4 to 5 times daily to check blood sugars and with insulin injections 360 Each 3 metFORMIN (GLUCOPHAGE) 1,000 mg tablet Take 1 tablet by mouth twice daily. 180 tablet 3 diclofenac (VOLTAREN ARTHRITIS PAIN) 1 % topical gel Apply 2 g to affected area four times daily. 100 g 1 glucagon (BAQSIMI) 3 mg/actuation nasal spray Use 1 [place] in the nose as needed for low blood sugar. May repeat after 15 minutes using a new device if there is no response. 1 Each 3 polyethylene glycol 3350 (MIRALAX) 17 gram/dose powder 1 capful daily in the morning 1700 g 3 albuterol HFA (VENTOLIN HFA) 90 mcg/actuation inhaler Inhale 2 Puffs as instructed every 4 hours asneeded. For wheezing/shortness of breath. 18 g 3 blood sugar diagnostic (FREESTYLE PRECISION JEREMIAS STRIPS) test strip Use to test blood sugar up to twice daily as instructed. Dx: insulin-dependent DM 50 Strip 11 No current facility-administered medications for this visit. Pill bottles are not present. Adherence: denies missed doses. Rx coverage: Payor: SEAN / Plan: SEAN BOOTHX / Product Type: EPO / Medications affordable? Yes PHARMACOTHERAPY PREVENTATIVE MEDS: On JANNIE/ARB: Yes On Statin: Yes On ASA: Yes EXAM: LMP 08/30/2012 Last 3 Encounter BP Readings: Date: BP: 11/27/2023 120/60 09/20/2023 124/80 08/27/2023 138/82 Wt: 96.2 kg (212 lb) BMI: 32.23 kg/(m^2) LABS: Lab Results Component Value Date HBA1C 9.3 11/27/2023 HBA1C 11.2 08/27/2023 HBA1C 11.4 05/27/2023 HBA1C 11.4 02/19/2023 HBA1C 10.5 11/08/2022 HBA1C 10.7 11/08/2022 HBA1C 11.2 08/14/2021 HBA1C 12.1 05/09/2021 HBA1C 10.3 08/05/2020 Glucose 114 08/27/2023 BUN 10 08/27/2023 Creatinine, Whole Blood (iSTAT) 0.41 08/27/2023 Sodium 142 08/27/2023 Potassium 3.7 08/27/2023 Chloride 106 08/27/2023 CO2 26 08/27/2023 Protein, Total 6.9 08/27/2023 Albumin 3.9 08/27/2023 Calcium 9.2 08/27/2023 Alkaline Phosphatase 86 08/27/2023 Bilirubin, Total 0.7 08/27/2023 AST 15 08/27/2023 ALT 12 08/27/2023 Lab Results Component Value Date CHOL 175 08/27/2023 CHOL 205 05/09/2021 LDL 102 08/27/2023 LDL 152 02/19/2023 LDL 127 05/09/2021 HDL 52 08/27/2023 HDL 54 05/09/2021 TG 106 08/27/2023 TG 120 05/09/2021 Albumin/Creat Ratio (mg/g) Date Value 07/24/2022 31 (H) eGFR-All Other Races (.) Date Value 05/09/2021 >60 Estimated Glomerular Filtration Rate (mL/min/1.73m ) Date Value 08/27/2023 114 ASSESSMENT/PLAN: 1. Uncontrolled type 2 diabetes mellitus with hyperglycemia (HCC) - ICD9: 250.02, ICD10: E11.65 - Improving control - Continue current medications - Statin prescribed - atorvastatin - Blood glucose monitoring on a continuous glucose monitoring schedule - Counseled on healthy diet and regular exercise - Follow up in 2 months, sooner should any other issues arise. Follow Up: Next PCP visit: 03/17/24 Next PharmD visit: 04/23/24 Susana Garcia, Alfa, BCACP Primary Care Clinical Wood Furniture Assembler I spent a total of 25 minutes on the date of the service which included preparing to see the patient, [id number] patient care, completing clinical documentation, and counseling and educating the patient/family/caregiver. documented in this encounterG[facility]08-15-[facility]24 Instructions* Patient Instructions* Susana Garcia RPh - 03/05/2024 1:30 PM EDT Continue current medications: Metformin 1000 mg BID Trulicity 4.5 mg once weekly on Sundays Tresiba 110 units once daily every morning Novolog 16 units + sliding scale with meals 200-230 = add 2 units 230-260 = add 4 units 260-300 = add 6 units >300 = add 8 units documented in this encounterGlenbeigh Hospital08-15-2024 NoteHNO ID: [id number] Author: SUSANA GARCIA RPh Service: ? Author Type: Pharmacist Type: Progress Notes Filed: 03/05/2024 15:26 Note Text: Primary Care Pharmacy Visit CC (Reason for Consult): (E11.65) Uncontrolled type 2 diabetes mellitus with hyperglycemia (HCC) (primary encounter diagnosis) Goal(s): A1c <7% Last Collaborating Provider Visit: 11/27/[address] Norm Mills Bean Isaac is a 58 year old female presenting for follow up visit in person. Patient consents to pharmacy collaborative practice agreement. Last Pharmacy Visit: 01/09/24 - Trulicity switched to Ozempic Interim Events: - 01/28/24 - switched back to Trulicity d/t side effects with Ozempic HPI: Reports doing well now States switching to Ozempic was unbearable. Experience awful side effects compared to how she tolerated Trulicity. Switched back to Trulicity about 2 weeks after stopping Ozempic, has now had about 1 month back on Trulicity and tolerating well again In the last couple weeks has not had to add from sliding scale to Novolog with meals Current DM Medications: Metformin 1000 mg BID Trulicity 4.5 mg once weekly on Sundays Tresiba 110 units once daily every morning Novolog 16 units + sliding scale with meals 200-230 = add 2 units 230-260 = add 4 units 260-300 = add 6 units >300 = add 8 units GLYCEMIC CONTROL: Glucometer present at visit: Yes Hypoglycemia: No CGM Data Past medical history reviewed. ALLERGIES Allergen Reactions Omnicef [Cefdinir] Itching Vaginitis severe Proventil [Albutero* Vomiting Can not tolerate generic albuterol 08/22/12 - MEM. Tramadol Hives Current Outpatient Medications Medication Sig Dispense Refill dulaglutide (TRULICITY) 4.5 mg/0.5 mL pen injector Inject 4.5 mg subcutaneously one time a week. 6 mL 4 ibuprofen (MOTRIN) 800 mg tablet TAKE 1 TABLET BY MOUTH EVERY 8 HOURS NEEDED FOR PAIN WITH FOOD 60 tablet 1 mupirocin (BACTROBAN) 2 % ointment Apply to affected area every 12 hours as needed (rash, skin lesions). 66 g 2 cyanocobalamin (VITAMIN B-12) 1,000 mcg tab Take 2 tablets by mouth once daily. 180 tablet 1 lisinopril (ZESTRIL) 10 mg tablet Take 1 tablet by mouth once daily. 90 tablet 3 Calcium Citrate-Vitamin D3 (CITRACAL+D) 315 mg-6.25 mcg (250 unit) tab Take 1 tablet by mouth once daily. 30 tablet 3 insulin degludec (TRESIBA FLEXTOUCH U-200) 200 unit/mL (3 mL) injection Inject 110 Units subcutaneously daily at bedtime. benzonatate (TESSALON PERLES) 100 mg capsule Take 1 capsule by mouth three times a day as needed for cough. 30 capsule 1 Cholecalciferol, Vitamin D3, 125 mcg (5,000 unit) cap Take 1 capsule by mouth once daily. 90 capsule 3 Oral Medication Containers (SHARPS CONTAINER) [facility] [place] as directed. 1 Each 0 Blood-Glucose Sensor (FREESTYLE MICHI 3 SENSOR) ingrid Apply new sensor to back of upper arm every 14 days 6 Each 4 flash glucose scanning reader (FREESTYLE MICHI 3 READER) Use to monitor blood glucose continuously 1 Each 0 insulin aspart U-100 (NOVOLOG U-100 INSULIN ASPART) 100 unit/mL Inject 16 units subcutaneously as directed plus sliding scale with meals. Insulin [place], Disposable, (UNIFINE PENTIPS) 31 gauge x 3/16 Use as directed 4 times daily with insulin 400 Each 3 flash glucose sensor (FREESTYLE MICHI 14 DAY SENSOR) kit Apply sensor to back of arm to check blood sugars as directed. Change sensor every 2 weeks and rotate arms. 6 Each 3 famotidine (PEPCID) 20 mg tablet Take 1 tablet by mouth twice daily. 180 tablet 3 FLUoxetine (PROZAC) 20 mg capsule Take 1 capsule by mouth once daily. In the morning, for depression 90 capsule 1 atorvastatin (LIPITOR) 40 mg tablet Take 1 tablet by mouth once daily. 90 tablet 3 aspirin, enteric coated (ASPIRIN, ENTERIC COATED) 81 mg EC tablet Take 1 tablet by mouth once daily. 90 tablet 3 gabapentin (NEURONTIN) 100 mg capsule Take 1-2 capsules by mouth daily at bedtime for 30 days. For foot pain 60 capsule 5 alcohol swabs (BD SINGLE USE SWABS REGULAR) Use as directed 4 to 5 times daily to check blood sugars and with insulin injections 360 Each 3 metFORMIN (GLUCOPHAGE) 1,000 mg tablet Take 1 tablet by mouth twice daily. 180 tablet 3 diclofenac (VOLTAREN ARTHRITIS PAIN) 1 % topical gel Apply 2 g to affected area four times daily. 100 g 1 glucagon (BAQSIMI) 3 mg/actuation nasal spray Use 1 [place] in the nose as needed for low blood sugar. May repeat after 15 minutes using a new device if there is no response. 1 Each 3 polyethylene glycol 3350 (MIRALAX) 17 gram/dose powder 1 capful daily in the morning 1700 g 3 albuterol HFA (VENTOLIN HFA) 90 mcg/actuation inhaler Inhale 2 Puffs as instructed every 4 hours as needed. For wheezing/shortness of breath. 18 g 3 blood sugar diagnostic (FREESTYLE PRECISION JEREMIAS STRIPS) test strip Use to test blood sugar up to twice daily as instructed. Dx: insulin-dependent DM 50 Strip 11 No current facil (more content not included)...[facility] 02-06-2024 Telephone encounter Note* Telephone Encounter - Susana Garcia RP - 02/06/2024 4:04 PM EDT Patient was no show for in office follow up visit. Will send [employer] message to patient to reschedule. Susana Garcia, PharmD, BCACP Primary Care Clinical [employer] Furniture [employer]er [facility] Work Phone: 1(883) 442-788407-18-2024 Miscellaneous Notes* Telephone Encounter - Susana Garcia RP - 02/06/2024 4:04 PM EDT Patient was no show for in office follow up visit. Will send [employer] message to patient to reschedule. Susana Garcia, Alfa, BCACP Primary Care Clinical Wood Furniture Assembler documented in this encounterGlen[facility] Hospital07-09-2024 Miscellaneous Notes* Telephone Encounter - Susana Garcia RP - 01/28/2024 2:02 PM EDT Called and spoke with patient; addressed in separate phone encounter documented in this encounterGlenbeigh Hospital07-09-2024 Telephone encounter Note * Telephone Encounter - Susana Garcia RP - 01/28/2024 2:02 PM EDT Called and spoke with patient; addressed in separate phone encounter [facility] Work Phone: 1(944) 506-715807-09-2024 Telephone encounter Note* Telephone Encounter - Susana Garcia [facility] - 01/28/2024 2:00 PM EDT Called and spoke with patient. Reports intolerable side effects with Ozempic from last 2 doses. States has noticed BGs have gone up as well. Discussed switching back to Trulicity. Plan: - Stop Ozempic and Restart Trulicity 4.5 mg once weekly - Continue all other medications as prescribed for now Patient verbalized understanding of plan. Patient scheduled for PharmD f/up on 02/06/24. Susana Garcia PharmD, ROSANNE Primary Care Clinical Wood Furniture As[employer]er [facility] Work Phone: [phone]) 612-786207-09-2024 Miscellaneous Notes* Telephone Encounter - Susana Garcia RPh - 01/28/2024 2:00 PM EDT Called and spoke with patient. Reports intolerable side effects with Ozempic from last 2 doses. States has noticed BGs have gone up as well. Discussed switching back to Trulicity. Plan: - Stop Ozempic and Restart Trulicity 4.5 mg once weekly - Continue all other medications as prescribed for now Patient verbalized understanding of plan. Patient scheduled for PharmD f/up on 02/06/24. Susana Garcia PharmD, ROSANNE Primary Care Clinical Wood Furniture As[employer]er * Telephone Encounter - Brianna Dye RN - 01/28/2024 8:30 AM EDT Patient calling to ehsan Garcia RPh an update. Pt states she began the Ozempic injection last week, as ordered. Reports it is really making me sick. She experienced lightheadedness, loss of appetite and heartburn during that week. Reports she took her 2nd injection this past Saturday and continues to experience these symptoms. Reports she vomited once this morning. Also states her blood sugars remain high. Yesterday her blood sugars were: 12am: 296 12pm: 248 Evening time: 290-300 Reports yesterday she ate no breakfast, no lunch and some spaghetti for dinner. Pt states she feels the Trulicity that she was on prior to the Ozempic, did not have these effects. Please advise patient. [phone] Thank you. documented in this encounterCleveland [id number] Telephone encounter Note * Telephone Encounter - Brianna Dye RN - 01/28/2024 8:30 AM EDT Patient calling to ehsan Garcia [facility] an update. Pt states she began the Ozempic injection last week, as ordered. Reports it is really making me sick. She experienced lightheadedness, loss of appetite and heartburn during that week. Reports she took her 2nd injection this past Saturday and continues to experience these symptoms. Reports she vomited once this morning. Also states her blood sugars remain high. Yesterday her blood sugars were: 12am: 296 12pm: 248 Evening time: 290-300 Reports yesterday she ate no breakfast, no lunch and some spaghetti for dinner. Pt states she feels the Trulicity that she was on prior to the Ozempic, did not have these effects. Please advise patient. [phone] Thank you. [facility]07-05-2024 Telephone encounter Note* Telephone Encounter - Pippa De La Rosa LPN - 01/24/2024 10:56 AM EDT Prescription Refill Information The patient has been identified by name and date of : Yes Caregiver verified no other encounters exist for this prescription request: Yes Caregiver confirmed with patient/requestor that no other refills are due, in the near future, with this provider at this time: Yes The last office visit in the department: 11/27/23 Does the patient have a future office visit with this provider/department: Yes Requested Prescriptions Pending Prescriptions Disp Refills mupirocin (BACTROBAN) 2 % ointment 66 g 2 Sig: Apply to affected area every 12 hours as needed (rash, skin lesions). Pippa De La Rosa LPN January 24, 2024 10:56 AM [facility]07-05-2024 Miscellaneous Notes* Telephone Encounter - Pippa De La Rosa LPN - 01/24/2024 10:56 AM EDT Prescription Refill Information The patient has been identified by name and date of : Yes Caregiver verified no other encounters exist for this prescription request: Yes Caregiver confirmed with patient/requestor that no other refills are due, in the near future, with this provider at this time: Yes The last office visit in the department: 11/27/23 Does the patient have a future office visit with this provider/department: Yes Requested Prescriptions Pending Prescriptions Disp Refills mupirocin (BACTROBAN) 2 % ointment 66 g 2 Sig: Apply to affected area every 12 hours as needed (rash, skin lesions). Pippa De La Rosa LPN January 24, 2024 10:56 AM documented in this encounterGlenbeigh Hospital07-05-2024 Miscellaneous Notes* Telephone Encounter - Pippa De La Rosa LPN - 01/24/2024 10:55 AM EDT Prescription Refill Information The patient has been identified by name and date of : Yes Caregiver verified no other encounters exist for this prescription request: Yes Caregiver confirmed with patient/requestor that no other refills are due, in the near future, with this provider at this time: Yes The last office visit in the department: 11/27/23 Does the patient have a future office visit with this provider/department: Yes Requested Prescriptions Pending Prescriptions Disp Refills ibuprofen (MOTRIN) 800 mg tablet 60 tablet 1 Sig: TAKE 1 TABLET BY MOUTH EVERY 8 HOURS NEEDED FOR PAIN WITH FOOD Pippa De La Rosa LPN January 24, 2024 10:55 AM documented in this encounterGlenbeigh Hospital07-05-2024 Telephone encounter Note * Telephone Encounter - Pippa De La Rosa LPN - 01/24/2024 10:55 AM EDT Prescription Refill Information The patient has been identified by name and date of : Yes Caregiver verified no other encounters exist for this prescription request: Yes Caregiver confirmed with patient/requestor that no other refills are due, in the near future, with this provider at this time: Yes The last office visit in the department: 11/27/23 Does the patient have a future office visit with this provider/department: Yes Requested Prescriptions Pending Prescriptions Disp Refills ibuprofen (MOTRIN) 800 mg tablet 60 tablet 1 Sig: TAKE 1 TABLET BY MOUTH EVERY 8 HOURS NEEDED FOR PAIN WITH FOOD Pippa De La Rosa LPN January 24, 2024 10:55 AM [facility]06-21-[facility] Telephone encounter Note* Telephone Encounter - Rivka Ramírez LPN - 01/10/2024 1:13 PM EDT Images from the original note were not included. Electronic PA completed and approved for ozempic. Prior authorization approved Payer: [facility] [phone] Your PA request has been approved. Additional information will be provided in the approval communication. (Message [id number]) Approval Details Authorized from January 10, 2024 to January 09, 2025 Electronic appeal: Not supported View History Notes Time User Attachment Attachment received from payer. 01/10/2024 12:29 PM [facility], Rx Priorauth In Document Medication Being Authorized semaglutide (OZEMPIC) 1 mg/dose (4 mg/3 mL) pen Inject 1 mg subcutaneously one time a week. Dispense: 3 mL Refills: 3 Start: 01/09/2024 Class: Normal This order has been released to its destination. To be filled at: [facility] [address] [place] [address] [address] [facility] - [phone] pt notified via my chart.. [facility]06-21-2024 Miscellaneous Notes* Telephone Encounter - Rivka Ramírez LPN - 01/10/2024 1:13 PM EDT Images from the original note were not included. Electronic PA completed and approved for ozempic. Prior authorization approved Payer: [facility] [phone] Your PA request has been approved. Additional information will be provided in the approval communication. (Message [id number]) Approval Details Authorized from January 10, 2024 to January 09, 2025 Electronic appeal: Not supported View History Notes Time User Attachment Attachment received from payer. 01/10/2024 12:29 PM [facility], Rx Priorauth In Document Medication Being Authorized semaglutide (OZEMPIC) 1 mg/dose (4 mg/3 mL) pen Inject 1 mg subcutaneously one time a week. Dispense: 3 mL Refills: 3 Start: 01/09/2024 Class: Normal This order has been released to its destination. To be filled at: [facility] [address] [place] [address] [address] [facility] - [phone] pt notified via my chart.. documented in this encounterGlenbeigh Hospital06-21-2024 Telephone encounter Note * Telephone Encounter - Kiah Pina RN - 01/10/2024 12:34 PM EDT Lucia calling from [facility] pharmacy authorization department. States she is calling to notify provider that pt's Ozempic prescription has been approved. Approval # [id number] [facility]06-21-2024 Miscellaneous Notes* Telephone Encounter - Kiah Pina RN - 01/10/2024 12:34 PM EDT Lucia calling from [facility] pharmacy authorization department. States she is calling to notify provider that pt's Ozempic prescription has been approved. Approval # [id number] documented in this encounterGlenbeigh Hospital06-20-2024 History of Present illness Narrative* Susana Garcia, [facility] - 01/09/2024 3:30 PM EDT Images from the original note were not included. Primary Care Pharmacy Visit CC (Reason for Consult): (E11.65) Uncontrolled type 2 diabetes mellitus with hyperglycemia (HCC) (primary encounter diagnosis) Goal(s): A1c <7% Last Collaborating Provider Visit: 11/27/[address] Norm Mills Bean Isaac is a 58 year old female presenting for follow up visit in person. Patient consentsto pharmacy collaborative practice agreement. Last Pharmacy Visit: 10/31/23 - Tresiba increased to 110 units once daily Interim Events: - 11/27/23 A1c shows improvement from 11.4% to 9.3% HPI: Reports doing well States BGs tend to go up and down sometimes, but has not had any lows States she was very excited to see such an improvement in her A1c last month Confirmed appropriate administration of insulin and storage States sometimes BGs drop quicker than other times after using mealtime insulin, not sure why Has been on Trulicity for a long time, not sure if she's ever noticed much of a difference with it ever since she's been taking Current DM Medications: Metformin 1000 mg BID Trulicity 4.5 mg once weekly on Sundays Tresiba 110 units once daily every morning Novolog 16 units + sliding scale with meals 200-230 = add 2 units 230-260 = add 4 units 260-300 = add 6 units >300 = add 8 units GLYCEMIC CONTROL: Glucometer present at visit: Yes Hypoglycemia: No CGM Data Past medical history reviewed. ALLERGIES Allergen Reactions Omnicef [Cefdinir] Itching Vaginitis severe Proventil [Albutero* Vomiting Can not tolerate generic albuterol 08/22/12 - MEM. Tramadol Hives Current Outpatient Medications Medication Sig Dispense Refill cyanocobalamin (VITAMIN B-12) 1,000 mcg tab Take 2 tablets by mouth once daily. 180 tablet 1 lisinopril (ZESTRIL) 10 mg tablet Take 1 tablet by mouth once daily. 90 tablet 3 Calcium Citrate-Vitamin D3 (CITRACAL+D) 315 mg-6.25 mcg (250 unit) tab Take 1 tablet by mouth once daily. 30 tablet 3 ibuprofen (MOTRIN) 800 mg tablet TAKE 1 TABLET BY MOUTH EVERY 8 HOURS NEEDED FOR PAIN WITH FOOD 60 tablet 1 insulin degludec (TRESIBA FLEXTOUCH U-200) 200 unit/mL (3 mL) injection Inject 110 Units subcutaneously daily at bedtime. fluticasone (FLONASE) 50 mcg/actuation nasal spray Use 2 Sprays in each nostril once daily. Rinse mouth after use. 16 g 1 benzonatate (TESSALON PERLES) 100 mg capsule Take 1 capsule by mouth three times a day as needed for cough. 30 capsule 1 Cholecalciferol, Vitamin D3, 125 mcg (5,000 unit) cap Take 1 capsule by mouth once daily. 90 capsule 3 Oral Medication Containers (SHARPS CONTAINER) [facility] [place] to [place] as directed. 1 Each 0 Blood-Glucose Sensor (FREESTYLE MICHI 3 SENSOR) ingrid Apply new sensor to back of upper arm every 14days 6 Each 4 flash glucose scanning reader (FREESTYLE MICHI 3 READER) Use to monitor blood glucose continuously 1 Each 0 dulaglutide (TRULICITY) 4.5 mg/0.5 mL pen injector Inject 4.5 mg subcutaneously one time a week. 6 mL 3 insulin aspart U-100 (NOVOLOG U-100 INSULIN ASPART) 100 unit/mL Inject 16 units subcutaneously as directed plus sliding scale with meals. Insulin [place], Disposable, (UNIFINE PENTIPS) 31 gauge x 3/16 Use as directed 4 times daily with insulin 400 Each 3 flash glucose sensor (FREESTYLE MICHI 14 DAY SENSOR) kit Apply sensor to back of arm to check bloodsugars as directed. Change sensor every 2 weeks and rotate arms. 6 Each 3 famotidine (PEPCID) 20 mg tablet Take 1 tablet by mouth twice daily. 180 tablet 3 FLUoxetine (PROZAC) 20 mg capsule Take 1 capsule by mouth once daily. In the morning, for depression 90 capsule 1 atorvastatin (LIPITOR) 40 mg tablet Take 1 tablet by mouth once daily. 90 tablet 3 aspirin, enteric coated (ASPIRIN, ENTERIC COATED) 81 mg EC tablet Take 1 tablet by mouth once daily. 90 tablet 3 mupirocin (BACTROBAN) 2 % ointment Apply to affected area every 12 hours as needed (rash, skin lesions). 66 g 2 gabapentin (NEURONTIN) 100 mg capsule Take 1-2 capsules by mouth daily at bedtime for 30 days. For foot pain 60 capsule 5 alcohol swabs (BD SINGLE USE SWABS REGULAR) Use as directed 4 to 5 times daily to check blood sugars and with insulin injections 360 Each 3 metFORMIN (GLUCOPHAGE) 1,000 mg tablet Take 1 tablet by mouth twice daily. 180 tablet 3 diclofenac (VOLTAREN ARTHRITIS PAIN) 1 % topical gel Apply 2 g to affected area four times daily. 100 g 1 glucagon (BAQSIMI) 3 mg/actuation nasal spray Use 1 [place] in the nose as needed for low blood sugar. May repeat after 15 minutes using a new device if there is no response. 1 Each 3 polyethylene glycol 3350 (MIRALAX) 17 gram/dose powder 1 capful daily in the morning 1700 g 3 albuterol HFA (VENTOLIN HFA) 90 mcg/actuation inhaler Inhale 2 Puffs as instructed every 4 hours asneeded. For wheezing/shortness of breath. 18 g 3 blood sugar diagnostic (FREESTYLE PRECISION JEREMIAS STRIPS) test strip Use to test blood sugar up to twice daily as instructed. Dx: insulin-dependent DM 50 Strip 11 No current facility-administered medications for this visit. Pill bottles are not present. Adherence: denies missed doses. Rx coverage: Payor: SEAN / Plan: SEAN DEL CID / Product Type: EPO / Medications affordable? Yes PHARMACOTHERAPY PREVENTATIVE MEDS: On JANNIE/ARB: Yes On Statin: Yes On ASA: Yes EXAM: LMP 08/30/2012 Last 3 Encounter BP Readings: Date: BP: 11/27/2023 120/60 09/20/2023 124/80 08/27/2023 138/82 Wt: 96.2 kg (212 lb) BMI: 32.23 kg/(m^2) LABS: Lab Results Component Value Date HBA1C 9.3 11/27/2023 HBA1C 11.2 08/27/2023 HBA1C 11.4 05/27/2023 HBA1C 11.4 02/19/2023 HBA1C 10.5 11/08/2022 HBA1C 10.7 11/08/2022 HBA1C 11.2 08/14/2021 HBA1C 12.1 05/09/2021 HBA1C 10.3 08/05/2020 Glucose 114 08/27/2023 BUN 10 08/27/2023 Creatinine, Whole Blood (iSTAT) 0.41 08/27/2023 Sodium 142 08/27/2023 Potassium 3.7 08/27/2023 Chloride 106 08/27/2023 CO2 26 08/27/2023 Protein, Total 6.9 08/27/2023 Albumin 3.9 08/27/2023 Calcium 9.2 08/27/2023 Alkaline Phosphatase 86 08/27/2023 Bilirubin, Total 0.7 08/27/2023 AST 15 08/27/2023 ALT 12 08/27/2023 Lab Results Component Value Date CHOL 175 08/27/2023 CHOL 205 05/09/2021 LDL 102 08/27/2023 LDL 152 02/19/2023 LDL 127 05/09/2021 HDL 52 08/27/2023 HDL 54 05/09/2021 TG 106 08/27/2023 TG 120 05/09/2021 Albumin/Creat Ratio (mg/g) Date Value 07/24/2022 31 (H) eGFR-All Other Races (.) Date Value 05/09/2021 >60 Estimated Glomerular Filtration Rate (mL/min/1.73m ) Date Value 08/27/2023 114 ASSESSMENT/PLAN: 1. Uncontrolled type 2 diabetes mellitus with hyperglycemia (HCC) - ICD9: 250.02, ICD10: E11.65 - Improving control. A1c with improvement, still above goal. Will switch Trulicity to Ozempic for additional glycemic benefit and to reduce insulin requirements. - Stop Trulicity and Start Ozempic 1 mg once weekly - Continue all other medications as prescribed - Statin prescribed - atorvastatin - Blood glucose monitoring on a continuous glucose monitoring schedule - Counseled on healthy diet and regular exercise - Follow up in 1 month, sooner should any other issues arise. Follow Up: Next PCP visit: 03/17/24 Next PharmD visit: 02/06/24 Susana Garcia, MonsterD, BCACP Primary Care Clinical Wood Furniture Assembler I spent a total of 30 minutes on the date of the service which included preparing to see the patient, [id number] patient care, completing clinical documentation, counseling and educating the patient/family/caregiver, and ordering medications, tests, or procedures. documented in this encounterG[facility]06-20-[facility]24 Instructions* Patient Instructions* Susana Garcia RPh - 01/09/2024 3:30 PM EDT Stop Trulicity and Start Ozempic 1 mg once a week Continue all other medications: Tresiba 110 units once daily every morning Novolog 16 units + sliding scale with meals 200-230 = add 2 units 230-260 = add 4 units 260-300 = add 6 units >300 = add 8 units Metformin 1000 mg BID documented in this encounterGlen[facility]06-07-[facility]24 Telephone encounter Note * Telephone Encounter - Fabiana Cook LPN - 12/27/2023 11:04 AM EDT Pt. informed via My Chart. [facility] Miscellaneous Notes* Telephone Encounter - Fabiana Ponce LPN - 12/27/2023 11:04 AM EDT Pt. informed via My Chart. * Telephone Encounter - Jese Zheng DO - 12/27/2023 8:21 AM EDT Please inform patient that carotid artery US only shows mild plaque up to 20- 39%. Recommend recheckin 2 years Jese Zheng DO documented in this encounterGlenbe[facility]06-07-2024 Telephone encounter Note * Telephone Encounter - Jese Zheng DO - 12/27/2023 8:21 AM EDT Please inform patient that carotid artery US only shows mild plaque up to 20- 39%. Recommend recheckin 2 years Jese Zheng DO [place] [id number] History of Present illness Narrative* Jese Zheng Ludmila, DO - 11/27/2023 2:14 PM EDT Patient presents with: F/U 3 Month HPI: Lina Isaac is a 58 year old female who presents to the office today for review of health conditions. Concerns today: Overall she is doing much better. Mild right ear discomfort. Feels that there is something in there and pressured. No fevers or chills. Didn't resolve with azithromycin rx. No current sick contacts. She is working with pharmacist on helping her with medication adjusting for her diabetes to get better control. Ms. Isaac has past history of diabetes. Since our last visit she denies excessive thirst or increased frequency of urination, chest pain or dyspnea , new or unusual visual symptoms, and low sugar/hypoglycemic reactions. Depression- yes, stable/improved.. Follows a diabetic diet some of the time. She is compliant with medication(s) and is tolerating med(s) without any side effects. She reports checking her glucose on a CGM schedule with sugars in the 30 day average 90-180 about 43% of the time in this range. Patient's last HgA1C was Hemoglobin A1C (%) Date Value 08/27/2023 11.2 02/19/2023 11.4 08/14/2021 11.2 05/09/2021 12.1 Hemoglobin A1C (POCT) (%) Date Value 05/27/2023 11.4 11/08/2022 10.7 ) Last Ophthalmology exam was within the past 12 months Ms. Isaac reports history of hyperlipidemia. Current therapy includes atorvastatin (Lipitor) 40 mg.Denies side effects of muscle weakness or achiness. Her most recent lipid panels are reviewed. Cholesterol, Total (mg/dL) Date Value 08/27/2023 175 05/09/2021 205 HDL Cholesterol (mg/dL) Date Value 08/27/2023 52 05/09/2021 54 LDL Cholesterol (mg/dL) Date Value 08/27/2023 102 05/09/2021 127 LDL Cholesterol, Nonfasting (mg/dL) Date Value 02/19/2023 152 Triglyceride (mg/dL) Date Value 08/27/2023 106 05/09/2021 120 Ms. Isaac indicates a history of hypertension and states that she is feeling well and denies any symptoms referable to elevated blood pressure. Specifically denies headache, chest pain, palpitations,dyspnea, and peripheral edema. Patient denies any side effects of her medication(s) and is compliant with their regimen. Last 3 Encounter BP Readings: Date: BP: 11/27/2023 120/60 09/20/2023 124/80 08/27/2023 138/82 She watches her diet for sodium, low fat and low cholesterol some of the time. She does not check BP's generally. Lina gets sporadic irregular exercise. PAST MEDICAL HISTORY Diagnosis Date Asthma Bowel perforation 11/05/2012 C. difficile colitis 04/2016 Closed nondisplaced fracture of proximal phalanx of lesser toe of left foot with routine healing 10/07/2019 COVID-19 03/30/2021 Diabetes mellitus type 2 in obese 10/2013 A1C 6.8% Dyslipidemia 01/02/2019 Essential hypertension 08/11/2015 GERD (gastroesophageal reflux disease) Incisional hernia 06/26/2013 Injury to rectosigmoid colon 10/17/2012 Low HDL (under 40) 10/2013 Nephrolithiasis Osteoarthrosis, unspecified whether generalized or localized, other specified sites Osteoarthritis Bilateral knees Spasm of muscle Tobacco use disorder quit 2012 Unspecified hereditary and idiopathic peripheral neuropathy 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 Ramirez COLONOSCOPY 09/17/2022 repeat in 10 years EGD 09/17/2022 HERNIA REPAIR HX 06/22/2013 HYSTERECTOMY HX 2011 fistula with intestine HYSTEROSCOPY, DIAGNOSTIC (SEPARATE Hysteroscopy/Novasure LAP HYSTERECTOMY FOR UTERUS 250G OR LESS 10/09/2012 with vaginal sling, LSO, right salpingectomy LAPS ABD PRTM&OMENTUM DX W/WO SPEC BR/WA SPX Laparoscopy LAPS REPAIR HERNIA EXCEPT INCAL/INGUN REDUCIBLE 05/2017 LIG/TRNSXJ FLP TUBE ABDL/VAG APPR UNI/BI 2001 Tubal ligation PAST SURGICAL HISTORY OF 01/30/2005 Left shoulder arthroscopy and debridement PAST SURGICAL HISTORY OF 02/2004 3rd toe left foot PAST SURGICAL HISTORY OF 03/14/2010 right total knee replacement PAST SURGICAL HISTORY OF 03/14/2009 left total knee replacement PAST SURGICAL HISTORY OF 01/23/2013 Ileostomy closure. PAST SURGICAL HISTORY OF Left 01/06/2016 left ring trigger release RPR 1ST INCAL/VNT HERNIA INCARCERATED 06/22/2013 at ileostomy site - 11x[address] \mesh RPR RECRT INCAL/VNT HERNIA INCARCERATED 07/23/2014 at midline' RPR RECRT INCAL/VNT HERNIA INCARCERATED 10/11/2014 - recurrent small bowel resection, enterotomy Social History Tobacco Use Smoking status: Former Packs/day: 0.50 Years: 24.00 Additional pack years: 0.00 Total pack years: 12.00 Types: Cigarettes Quit date: 05/13/2013 Years since quittin.5 Smokeless tobacco: Never Vaping Use Vaping Use: Never used Substance Use Topics Alcohol use: No Drug use: No FAMILY HISTORY Problem Relation Age of Onset Hypertension Mother Diabetes Mother Cancer Maternal Uncle throat cancer Hypertension Sister Diabetes Sister other (hyperlipidemia) Sister Allergies: ALLERGIES Allergen Reactions Omnicef [Cefdinir] Itching Vaginitis severe Proventil [Albutero* Vomiting Can not tolerate generic albuterol 08/22/12 - MEM. Tramadol Hives Current Meds: cyanocobalamin (VITAMIN B-12) 1,000 mcg tab Take 2 tablets by mouth once daily. lisinopril (ZESTRIL) 10 mg tablet Take 1 tablet by mouth once daily. Calcium Citrate-Vitamin D3 (CITRACAL+D) 315 mg-6.25 mcg (250 unit) tab Take 1 tablet by mouth once daily. ibuprofen (MOTRIN) 800 mg tablet TAKE 1 TABLET BY MOUTH EVERY 8 HOURS NEEDED FOR PAIN WITH FOOD insulin degludec (TRESIBA FLEXTOUCH U-200) 200 unit/mL (3 mL) injection Inject 110 Units subcutaneously daily at bedtime. fluticasone (FLONASE) 50 mcg/actuation nasal spray Use 2 Sprays in each nostril once daily. Rinse mouth after use. benzonatate (TESSALON PERLES) 100 mg capsule Take 1 capsule by mouth three times a day as needed for cough. Cholecalciferol, Vitamin D3, 125 mcg (5,000 unit) cap Take 1 capsule by mouth once daily. Oral Medication Containers (SHARPS CONTAINER) misc Use to collect sharps as directed. Blood-Glucose Sensor (FREESTYLE MICHI 3 SENSOR) ingrid Apply new sensor to back of upper arm every 14days flash glucose scanning reader (FREESTYLE MICHI 3 READER) Use to monitor blood glucose continuously dulaglutide (TRULICITY) 4.5 mg/0.5 mL pen injector Inject 4.5 mg subcutaneously one time a week. insulin aspart U-100 (NOVOLOG U-100 INSULIN ASPART) 100 unit/mL Inject 16 units subcutaneously as directed plus sliding scale with meals. Insulin [place], Disposable, (UNIFINE PENTIPS) 31 gauge x 3/16 Use as directed 4 times daily with insulin flash glucose sensor (FREESTYLE MICHI 14 DAY SENSOR) kit Apply sensor to back of arm to check bloodsugars as directed. Change sensor every 2 weeks and rotate arms. famotidine (PEPCID) 20 mg tablet Take 1 tablet by mouth twice daily. FLUoxetine (PROZAC) 20 mg capsule Take 1 capsule by mouth once daily. In the morning, for depression atorvastatin (LIPITOR) 40 mg tablet Take 1 tablet by mouth once daily. aspirin, enteric coated (ASPIRIN, ENTERIC COATED) 81 mg EC tablet Take 1 tablet by mouth once daily. mupirocin (BACTROBAN) 2 % ointment Apply to affected area every 12 hours as needed (rash, skin lesions). gabapentin (NEURONTIN) 100 mg capsule Take 1-2 capsules by mouth daily at bedtime for 30 days. For foot pain alcohol swabs (BD SINGLE USE SWABS REGULAR) Use as directed 4 to 5 times daily to check blood sugars and with insulin injections metFORMIN (GLUCOPHAGE) 1,000 mg tablet Take 1 tablet by mouth twice daily. diclofenac (VOLTAREN ARTHRITIS PAIN) 1 % topical gel Apply 2 g to affected area four times daily. glucagon (BAQSIMI) 3 mg/actuation nasal spray Use 1 [place] in the nose as needed for low blood sugar. May repeat after 15 minutes using a new device if there is no response. polyethylene glycol 3350 (MIRALAX) 17 gram/dose powder 1 capful daily in the morning albuterol HFA (VENTOLIN HFA) 90 mcg/actuation inhaler Inhale 2 Puffs as instructed every 4 hours asneeded. For wheezing/shortness of breath. blood sugar diagnostic (FREESTYLE PRECISION JEREMIAS STRIPS) test strip Use to test blood sugar up to twice daily as instructed. Dx: insulin-dependent DM Review of Systems: The remainder of the review of systems is negative. PE: 11/27/23 1356 BP: 120/60 Pulse: 80 Resp: 20 Temp: 36.3 C (97.4 F) TempSrc: Right Tympanic Weight: 96.2 kg (212 lb) Gen: A&O, NAD, non-toxic appearing, Pleasant, cooperative HEENT: NT/AC, PERRLA, EOMs intact b/l, nares clear and patent b/l, pharynx without erythema, exudate or lesions. Uvula midline. EAC with inflammation/erythema right side, normal on left. TMs pearly julien with intact landmarks b/l. Neck: supple, No cervical LAD, no thyromegaly, no carotid bruits CV: RRR, normal S1 and S2, no murmurs, no gallops, no rubs, Pulses 2+ and symmetric in UE and LE b/l Lungs: normal respiratory effort, CTA b/l, no wheezing or rhonchi or rales Abd: soft, overweight, NT, ND, +BS, no hepatosplenomegaly Skin: warm, dry, intact, No rashes or lesions on exposed skin. Foot exam: Monofilament wnl on right and left feet. ASSESSMENT/PLAN: 1. Type 2 diabetes mellitus without complication, with long-term current use of insulin (HCC) - ICD9: 250.00, V58.67, ICD10: E11.9, Z79.4 (primary diagnosis) - Uncontrolled - Improving control - Continue current medications - Blood glucose monitoring on a continuous glucose monitoring schedule - Counseled on healthy diet and regular exercise - Discussed need for and benefit of weight loss. BMI 32.23 kg/(m^2) - f/u with Pharmacist to help with medication adjusting. - HEMOGLOBIN A1C (POC) - HEMOGLOBIN A1C - COMPREHENSIVE METABOLIC PANEL - ALBUMIN/CREATININE RATIO, URINE 2. Vitamin B12 deficiency - ICD9: 266.2, ICD10: E53.8 rx as below - CYANOCOBALAMIN (VIT B-12) 1,000 MCG TABLET 3. Hepatic steatosis - ICD9: 571.8, ICD10: K76.0 Need for better glucose control and weight loss. 4. Dyslipidemia - ICD9: 272.4, ICD10: E78.5 - Control undetermined, due for labs - Continue current medications - Counseled on healthy diet and regular exercise - Discussed need for and benefit of weight loss. BMI 32.23 kg/(m^2) - LIPID PANEL BASIC 5. Acute otitis externa of right ear, unspecified type - ICD9: 380.10, ICD10: H60.501 - OFLOXACIN 0.3 % EAR DROPS 6. Carotid atherosclerosis, bilateral - ICD9: 433.10, 433.30, ICD10: I65.23 - US CAROTID ARTERIES [facility] Jese Zheng DO To ER if develops chest pain, shortness of breath, or severe worsening of symptoms. Discussed risks, benefits, alternatives, and potential side effects of medications. Patient expressed understanding and agreed with the plan. Jese Zheng DO [address] [place] [address] documented in this encounterG[facility]05-[facility]24 Telephone encounter Note * Telephone Encounter - Shanelle Mckee MA - 11/25/2023 3:39 PM EDT Patient has been identified by name and date of : Yes Patient phones for refill(s): Requested Prescriptions Pending Prescriptions Disp Refills Calcium Citrate-Vitamin D3 (CITRACAL+D) 315 mg-6.25 mcg (250 unit) tab 30 tablet 3 Sig: Take 1 tablet by mouth once daily. ibuprofen (MOTRIN) 800 mg tablet 60 tablet 1 Sig: TAKE 1 TABLET BY MOUTH EVERY 8 HOURS NEEDED FOR PAIN WITH FOOD Date of last office visit in primary care: 09/20/2023 Date of next office visit in primary care: 11/27/2023 Please advise. Thank you. Shanelle Mckee MA. [facility]05-06-[facility] Miscellaneous Notes* Telephone Encounter - Shanelle Mckee MA - 11/25/2023 3:39 PM EDT Patient has been identified by name and date of : Yes Patient phones for refill(s): Requested Prescriptions Pending Prescriptions Disp Refills Calcium Citrate-Vitamin D3 (CITRACAL+D) 315 mg-6.25 mcg (250 unit) tab 30 tablet 3 Sig: Take 1 tablet by mouth once daily. ibuprofen (MOTRIN) 800 mg tablet 60 tablet 1 Sig: TAKE 1 TABLET BY MOUTH EVERY 8 HOURS NEEDED FOR PAIN WITH FOOD Date of last office visit in primary care: 09/20/2023 Date of next office visit in primary care: 11/27/2023 Please advise. Thank you. Shanelle Mckee MA. documented in this encounterG[facility]05-06-2024 Telephone encounter Note * Telephone Encounter - Shanelle Mckee MA - 11/25/2023 3:29 PM EDT Patient has been identified by name and date of : Yes Patient phones for refill(s): Requested Prescriptions Pending Prescriptions Disp Refills lisinopril (ZESTRIL) 10 mg tablet 90 tablet 3 Sig: Take 1 tablet by mouth once daily. Date of last office visit in primary care: 09/20/2023 Date of next office visit in primary care: 11/25/2023 Please advise. Thank you. Shanelle Mckee MA. [facility] Miscellaneous Notes* Telephone Encounter - Shanelle Mckee MA - 11/25/2023 3:29 PM EDT Patient has been identified by name and date of : Yes Patient phones for refill(s): Requested Prescriptions Pending Prescriptions Disp Refills lisinopril (ZESTRIL) 10 mg tablet 90 tablet 3 Sig: Take 1 tablet by mouth once daily. Date of last office visit in primary care: 09/20/2023 Date of next office visit in primary care: 11/25/2023 Please advise. Thank you. Shanelle Mckee MA. documented in this encounterGlen[facility]04-11-2024 Miscellaneous Notes* Telephone Encounter - Susana Garcia RPh - 10/31/2023 4:36 PM EDT Test message patient sent during today's in office PharmD visit. No further action required at thistime Susana Garcia PharmD Primary Care Clinical Wood Furniture Assembler documented in this encounterGlenbeigh Hospital04-11-2024 History of Present illness Narrative* Susana Garcia RPh - 10/31/2023 3:00 PM EDT Images from the original note were not included. Primary Care Pharmacy Visit CC (Reason for Consult): (E11.65) Uncontrolled type 2 diabetes mellitus with hyperglycemia (HCC) (primary encounter diagnosis) Goal(s): A1c <7% Last Collaborating Provider Visit: 09/20/[address] Norm Mills Bean Isaac is a 58 year old female presenting for follow up visit in person. Patient consentsto pharmacy collaborative practice agreement. Last Pharmacy Visit: 09/26/23 - Tresiba increased to 100 units once daily HPI: Reports doing well overall States BGs has been improving Did not have lunchtime insulin dose today and sometimes misses States her feet feel a lot better and has noticed improvement in her eyesight as well States she is feeling a lot better overall compared to how she had been before Current DM Medications: Metformin 1000 mg BID Trulicity 4.5 mg once weekly Tresiba 100 units once daily every morning Novolog 16 units + sliding scale with meals 200-230 = add 2 units 230-260 = add 4 units 260-300 = add 6 units >300 = add 8 units GLYCEMIC CONTROL: Glucometer present at visit: Yes Hypoglycemia: No CGM Data Past medical history reviewed. ALLERGIES Allergen Reactions Omnicef [Cefdinir] Itching Vaginitis severe Proventil [Albutero* Vomiting Can not tolerate generic albuterol 08/22/12 - MEM. Tramadol Hives Current Outpatient Medications Medication Sig Dispense Refill fluticasone (FLONASE) 50 mcg/actuation nasal spray Use 2 Sprays in each nostril once daily. Rinse mouth after use. 16 g 1 insulin degludec (TRESIBA FLEXTOUCH U-200) 200 unit/mL (3 mL) injection Inject 100 Units subcutaneously daily at bedtime. 15 mL 11 benzonatate (TESSALON PERLES) 100 mg capsule Take 1 capsule by mouth three times a day as needed for cough. 30 capsule 1 Cholecalciferol, Vitamin D3, 125 mcg (5,000 unit) cap Take 1 capsule by mouth once daily. 90 capsule 3 ibuprofen (MOTRIN) 800 mg tablet TAKE 1 TABLET BY MOUTH EVERY 8 HOURS NEEDED FOR PAIN WITH FOOD 60 tablet 1 Oral Medication Containers (SHARPS CONTAINER) [facility] [place] Use to collect sharps as directed. 1 Each 0 Blood-Glucose Sensor (FREESTYLE MICHI 3 SENSOR) ingrid Apply new sensor to back of upper arm every 14days 6 Each 4 flash glucose scanning reader (FREESTYLE MICHI 3 READER) Use to monitor blood glucose continuously 1 Each 0 dulaglutide (TRULICITY) 4.5 mg/0.5 mL pen injector Inject 4.5 mg subcutaneously one time a week. 6 mL 3 insulin aspart U-100 (NOVOLOG U-100 INSULIN ASPART) 100 unit/mL Inject 16 units subcutaneously as directed plus sliding scale with meals. Insulin [place], Disposable, (UNIFINE PENTIPS) 31 gauge x 3/16 Use as directed 4 times daily with insulin 400 Each 3 Calcium Citrate-Vitamin D3 (CITRACAL+D) 315 mg-6.25 mcg (250 unit) tab Take 1 tablet by mouth once daily. 30 tablet 3 flash glucose sensor (FREESTYLE MICHI 14 DAY SENSOR) kit Apply sensor to back of arm to check bloodsugars as directed. Change sensor every 2 weeks and rotate arms. 6 Each 3 famotidine (PEPCID) 20 mg tablet Take 1 tablet by mouth twice daily. 180 tablet 3 FLUoxetine (PROZAC) 20 mg capsule Take 1 capsule by mouth once daily. In the morning, for depression 90 capsule 1 atorvastatin (LIPITOR) 40 mg tablet Take 1 tablet by mouth once daily. 90 tablet 3 cyanocobalamin (VITAMIN B-12) 1,000 mcg tab Take 2 tablets by mouth once daily. 180 tablet 1 aspirin, enteric coated (ASPIRIN, ENTERIC COATED) 81 mg EC tablet Take 1 tablet by mouth once daily. 90 tablet 3 mupirocin (BACTROBAN) 2 % ointment Apply to affected area every 12 hours as needed (rash, skin lesions). 66 g 2 gabapentin (NEURONTIN) 100 mg capsule Take 1-2 capsules by mouth daily at bedtime for 30 days. For foot pain 60 capsule 5 alcohol swabs (BD SINGLE USE SWABS REGULAR) Use as directed 4 to 5 times daily to check blood sugars and with insulin injections 360 Each 3 lisinopril (ZESTRIL) 10 mg tablet Take 1 tablet by mouth once daily. 90 tablet 3 metFORMIN (GLUCOPHAGE) 1,000 mg tablet Take 1 tablet by mouth twice daily. 180 tablet 3 diclofenac (VOLTAREN ARTHRITIS PAIN) 1 % topical gel Apply 2 g to affected area four times daily. 100 g 1 glucagon (BAQSIMI) 3 mg/actuation nasal spray Use 1 [place] in the nose as needed for low blood sugar. May repeat after 15 minutes using a new device if there is no response. 1 Each 3 polyethylene glycol 3350 (MIRALAX) 17 gram/dose powder 1 capful daily in the morning 1700 g 3 albuterol HFA (VENTOLIN HFA) 90 mcg/actuation inhaler Inhale 2 Puffs as instructed every 4 hours asneeded. For wheezing/shortness of breath. 18 g 3 blood sugar diagnostic (FREESTYLE PRECISION JEREMIAS STRIPS) test strip Use to test blood sugar up to twice daily as instructed. Dx: insulin-dependent DM 50 Strip 11 No current facility-administered medications for this visit. Pill bottles are not present. Adherence: denies missed doses. Rx coverage: Payor: SEAN / Plan: SEAN BOOTHX / Product Type: EPO / Medications affordable? Yes PHARMACOTHERAPY PREVENTATIVE MEDS: On JANNIE/ARB: Yes On Statin: Yes On ASA: Yes EXAM: LMP 08/30/2012 Last 3 Encounter BP Readings: Date: BP: 09/20/2023 124/80 08/27/2023 138/82 05/27/2023 138/82 Wt: 89.8 kg (198 lb) BMI: 30.11 kg/(m^2) LABS: Lab Results Component Value Date HBA1C 11.2 08/27/2023 HBA1C 11.4 05/27/2023 HBA1C 11.4 02/19/2023 HBA1C 10.5 11/08/2022 HBA1C 10.7 11/08/2022 HBA1C 11.2 08/14/2021 HBA1C 12.1 05/09/2021 HBA1C 10.3 08/05/2020 Glucose 114 08/27/2023 BUN 10 08/27/2023 Creatinine, Whole Blood (iSTAT) 0.41 08/27/2023 Sodium 142 08/27/2023 Potassium 3.7 08/27/2023 Chloride 106 08/27/2023 CO2 26 08/27/2023 Protein, Total 6.9 08/27/2023 Albumin 3.9 08/27/2023 Calcium 9.2 08/27/2023 Alkaline Phosphatase 86 08/27/2023 Bilirubin, Total 0.7 08/27/2023 AST 15 08/27/2023 ALT 12 08/27/2023 Lab Results Component Value Date CHOL 175 08/27/2023 CHOL 205 05/09/2021 LDL 102 08/27/2023 LDL 152 02/19/2023 LDL 127 05/09/2021 HDL 52 08/27/2023 HDL 54 05/09/2021 TG 106 08/27/2023 TG 120 05/09/2021 Albumin/Creat Ratio (mg/g) Date Value 07/24/2022 31 (H) eGFR-All Other Races (.) Date Value 05/09/2021 >60 Estimated Glomerular Filtration Rate (mL/min/1.73m ) Date Value 08/27/2023 114 ASSESSMENT/PLAN: 1. Uncontrolled type 2 diabetes mellitus with hyperglycemia (HCC) - ICD9: 250.02, ICD10: E11.65 - Improving control - Increase Tresiba to 110 units once daily - Continue all other medications as prescribed - Statin prescribed - atorvastatin - Blood glucose monitoring on a continuous glucose monitoring schedule - Counseled on healthy diet and regular exercise - Follow up in 2 months, sooner should any other issues arise. - Due for A1c ~11/25/23 Follow Up: Next PCP visit: 11/27/23 Next PharmD visit: 12/26/23 Susana Garcia PharmD Primary Care Clinical [employer] Furniture [employer] I spent a total of 30 minutes on the date of the service which included preparing to see the patient, [id number] patient care, completing clinical documentation, and counseling and educating the patient/family/caregiver. documented in this encounterG[facility]04-11-2024 Instructions* Patient Instructions* Susana Garcia RPh - 10/31/2023 3:00 PM EDT Increase Tresiba to 110 units once daily Continue all other medications: Novolog 16 units + sliding scale with meals 200-230 = add 2 units 230-260 = add 4 units 260-300 = add 6 units >300 = add 8 units Metformin 1000 mg BID Trulicity 4.5 mg once weekly Next appointment: December 25 at 3:30pm documented in this encounterGlenbe[facility]03-22-2024 Miscellaneous Notes* Telephone Encounter - Hayde Zhu MA - 10/11/2023 8:54 AM EDT Pt informed, verbalized understanding. Hayde Zhu MA * Telephone Encounter - Ankita Green APRN.CNP - 10/11/2023 8:45 AM EDT Flonase 2 sprays to each nostril once daily. I'll send this in. She can also try some Sudafed prn. Keep in mind this can take a couple weeks to take effect, needs to be using the Flonase consistently, not prn. The following approved medication requests have been transmitted electronically. Requested Prescriptions Signed Prescriptions Disp Refills fluticasone (FLONASE) 50 mcg/actuation nasal spray 16 g 1 Sig: Use 2 Sprays in each nostril once daily. Rinse mouth after use. Authorizing Provider: JESE ZHENG Ordering User: ANKITA GREEN APRN.CNP * Telephone Encounter - Antonette Kurtz LPN - 10/10/2023 4:06 PM EDT Patient calling she said the 2 zpacks cleared her sinusitis and bronchitis, but her ears still feellike fluid in them. Patient asking what can she use to help with that? She said she is not using any nasal sprays at all. Patient uses [facility] for her pharmacy. Please advise documented in this encounterGlen[facility]03-07-2024 History of Present illness Narrative* Susana Garcia, [facility] - 09/26/2023 3:00 PM EST Images from the original note were not included. Primary Care Pharmacy Visit CC (Reason for Consult): (E11.65) Uncontrolled type 2 diabetes mellitus with hyperglycemia (HCC) (primary encounter diagnosis) Goal(s): A1c <7% Last Collaborating Provider Visit: 09/20/[address] Norm Mills Bean Isaac is a 57 year old female presenting for follow up visit in person. Patient consentsto pharmacy collaborative practice agreement. Last Pharmacy Visit: 08/22/23 - [facility] Michi 3 set up HPI: Recently had an issues with connecting Michi sensor d/t pharmacy gave different sensors but now hasLibre 3 again and is liking using it with her phone now a lot better than the old sensor States she has been pleased with how her BGs are improving lately Reports she feels better overall States her Tresiba pen only goes up to 80 units. Currently using a Tresiba U100 pen from her previous supply. Discovered expiration date is 08/21/23; still has some other supply at home she states shewill check to make sure dates are still good Current DM Medications: Metformin 1000 mg BID Trulicity 4.5 mg once weekly Tresiba 90 units once daily Novolog 16 units + sliding scale with meals 200-230 = add 2 units 230-260 = add 4 units 260-300 = add 6 units >300 = add 8 units Diet Denies any recent changes GLYCEMIC CONTROL: Glucometer present at visit: Yes Hypoglycemia: No CGM Data Past medical history reviewed. ALLERGIES Allergen Reactions Omnicef [Cefdinir] Itching Vaginitis severe Proventil [Albutero* Vomiting Can not tolerate generic albuterol 08/22/12 - MEM. Tramadol Hives Current Outpatient Medications Medication Sig Dispense Refill codeine-guaiFENesin (ROBITUSSIN AC) 10-100 mg/5 mL syrup Take 5 mL by mouth three times a day as needed for cold/allergy symptoms or cough for up to 7 days. 118 mL 0 benzonatate (TESSALON PERLES) 100 mg capsule Take 1 capsule by mouth three times a day as needed for cough. 30 capsule 1 Cholecalciferol, Vitamin D3, 125 mcg (5,000 unit) cap Take 1 capsule by mouth once daily. 90 capsule 3 ibuprofen (MOTRIN) 800 mg tablet TAKE 1 TABLET BY MOUTH EVERY 8 HOURS NEEDED FOR PAIN WITH FOOD 60 tablet 1 Oral Medication Containers (SHARPS CONTAINER) [facility] [place] to collect sharps as directed. 1 Each 0 Blood-Glucose Sensor (FREESTYLE MICHI 3 SENSOR) ingrid Apply new sensor to back of upper arm every 14days 6 Each 4 flash glucose scanning reader ([employer] AnalyticsSTYLE MICHI 3 READER) Use to monitor blood glucose continuously 1 Each 0 dulaglutide (TRULICITY) 4.5 mg/0.5 mL pen injector Inject 4.5 mg subcutaneously one time a week. 6 mL 3 insulin degludec (TRESIBA FLEXTOUCH U-200) 200 unit/mL (3 mL) injection Inject 90 Units subcutaneously daily at bedtime. insulin aspart U-100 (NOVOLOG U-100 INSULIN ASPART) 100 unit/mL Inject 16 units subcutaneously as directed plus sliding scale with meals. Insulin [place], Disposable, (UNIFINE PENTIPS) 31 gauge x 3/16 Use as directed 4 times daily with insulin 400 Each 3 Calcium Citrate-Vitamin D3 (CITRACAL+D) 315 mg-6.25 mcg (250 unit) tab Take 1 tablet by mouth once daily. 30 tablet 3 flash glucose sensor (FREESTYLE MICHI 14 DAY SENSOR) kit Apply sensor to back of arm to check bloodsugars as directed. Change sensor every 2 weeks and rotate arms. 6 Each 3 famotidine (PEPCID) 20 mg tablet Take 1 tablet by mouth twice daily. 180 tablet 3 FLUoxetine (PROZAC) 20 mg capsule Take 1 capsule by mouth once daily. In the morning, for depression 90 capsule 1 atorvastatin (LIPITOR) 40 mg tablet Take 1 tablet by mouth once daily. 90 tablet 3 cyanocobalamin (VITAMIN B-12) 1,000 mcg tab Take 2 tablets by mouth once daily. 180 tablet 1 aspirin, enteric coated (ASPIRIN, ENTERIC COATED) 81 mg EC tablet Take 1 tablet by mouth once daily. 90 tablet 3 mupirocin (BACTROBAN) 2 % ointment Apply to affected area every 12 hours as needed (rash, skin lesions). 66 g 2 gabapentin (NEURONTIN) 100 mg capsule Take 1-2 capsules by mouth daily at bedtime for 30 days. For foot pain 60 capsule 5 alcohol swabs (BD SINGLE USE SWABS REGULAR) Use as directed 4 to 5 times daily to check blood sugars and with insulin injections 360 Each 3 lisinopril (ZESTRIL) 10 mg tablet Take 1 tablet by mouth once daily. 90 tablet 3 metFORMIN (GLUCOPHAGE) 1,000 mg tablet Take 1 tablet by mouth twice daily. 180 tablet 3 diclofenac (VOLTAREN ARTHRITIS PAIN) 1 % topical gel Apply 2 g to affected area four times daily. 100 g 1 glucagon (BAQSIMI) 3 mg/actuation nasal spray Use 1 [place] in the nose as needed for low blood sugar. May repeat after 15 minutes using a new device if there is no response. 1 Each 3 polyethylene glycol 3350 (MIRALAX) 17 gram/dose powder 1 capful daily in the morning 1700 g 3 albuterol HFA (VENTOLIN HFA) 90 mcg/actuation inhaler Inhale 2 Puffs as instructed every 4 hours asneeded. For wheezing/shortness of breath. 18 g 3 blood sugar diagnostic (FREESTYLE PRECISION JEREMIAS STRIPS) test strip Use to test blood sugar up to twice daily as instructed. Dx: insulin-dependent DM 50 Strip 11 No current facility-administered medications for this visit. Pill bottles are not present. Adherence: denies missed doses. Rx coverage: Payor: SEAN / Plan: SEAN BOOTHX / Product Type: EPO / Medications affordable? Yes PHARMACOTHERAPY PREVENTATIVE MEDS: On JANNIE/ARB: Yes On Statin: Yes On ASA: Yes EXAM: LMP 08/30/2012 Last 3 Encounter BP Readings: Date: BP: 09/20/2023 124/80 08/27/2023 138/82 05/27/2023 138/82 Wt: 89.8 kg (198 lb) BMI: 30.11 kg/(m^2) LABS: Lab Results Component Value Date HBA1C 11.2 08/27/2023 HBA1C 11.4 05/27/2023 HBA1C 11.4 02/19/2023 HBA1C 10.5 11/08/2022 HBA1C 10.7 11/08/2022 HBA1C 11.2 08/14/2021 HBA1C 12.1 05/09/2021 HBA1C 10.3 08/05/2020 Glucose 114 08/27/2023 BUN 10 08/27/2023 Creatinine, Whole Blood (iSTAT) 0.41 08/27/2023 Sodium 142 08/27/2023 Potassium 3.7 08/27/2023 Chloride 106 08/27/2023 CO2 26 08/27/2023 Protein, Total 6.9 08/27/2023 Albumin 3.9 08/27/2023 Calcium 9.2 08/27/2023 Alkaline Phosphatase 86 08/27/2023 Bilirubin, Total 0.7 08/27/2023 AST 15 08/27/2023 ALT 12 08/27/2023 Lab Results Component Value Date CHOL 175 08/27/2023 CHOL 205 05/09/2021 LDL 102 08/27/2023 LDL 152 02/19/2023 LDL 127 05/09/2021 HDL 52 08/27/2023 HDL 54 05/09/2021 TG 106 08/27/2023 TG 120 05/09/2021 Albumin/Creat Ratio (mg/g) Date Value 07/24/2022 31 (H) eGFR-All Other Races (.) Date Value 05/09/2021 >60 Estimated Glomerular Filtration Rate (mL/min/1.73m ) Date Value 08/27/2023 114 ASSESSMENT/PLAN: 1. Uncontrolled type 2 diabetes mellitus with hyperglycemia (HCC) - ICD9: 250.02, ICD10: E11.65 - Improving control - Increase Tresiba (U200) to 100 units once daily - Continue all other medications as currently prescribed - Statin prescribed - atorvastatin - Blood glucose monitoring on a continuous glucose monitoring schedule - Counseled on healthy diet and regular exercise - Follow up in 1 month, sooner should any other issues arise. - Advised patient to check expiration dates on insulin pens at home and replace current Tresiba penwith one with in date expiration Follow Up: Next PCP visit: 11/27/23 Next PharmD visit: 10/31/23 Susana Garcia PharmD Primary Care Clinical [employer] Furniture [employer]er I spent a total of 30 minutes on the date of the service which included preparing to see the patient, [id number] patient care, completing clinical documentation, counseling and educating the patient/family/caregiver, and ordering medications, tests, or procedures. documented in this encounterGlen[facility]igh Hospital03-07-2024 Instructions* Patient Instructions* Susana Garcia RPh - 09/26/2023 3:00 PM EST Increase Tresiba to 100 units once daily Continue all other medications: Metformin 1000 mg BID Trulicity 4.5 mg once weekly Novolog 16 units + sliding scale with meals 200-230 = add 2 units 230-260 = add 4 units 260-300 = add 6 units >300 = add 8 units documented in this encounterGlen[facility] Hospital03-02-2024 Miscellaneous Notes* Telephone Encounter - Fabiana Cook LPN - 09/21/2023 9:24 AM EST Patient informed via My Chart. * Telephone Encounter - Jese Zheng DO - 09/21/2023 8:12 AM EST Please inform patient that her viral testing is negative Jese Zheng DO documented in this encounterGlenbeigh Hospital03-02-2024 History of Present illness Narrative* Jese Zheng DO - 09/21/2023 7:05 AM EST CC: Lina Isaac is a 57 year old female who presents to the office for sinus symptoms HPI: Sinus pressure and b/l ear pressure and pain, no fevers or chills. + fatigue symptoms, present the last week. Some ticklish cough, no obvious hemoptysis or sputum production. Has been using mucinex and tylenol without resolution of symptoms. + sick contacts PAST MEDICAL HISTORY Diagnosis Date Asthma Bowel perforation 11/05/2012 C. difficile colitis 04/2016 Closed nondisplaced fracture of proximal phalanx of lesser toe of left foot with routine healing 10/07/2019 COVID-19 03/30/2021 Diabetes mellitus type 2 in obese 10/2013 A1C 6.8% Dyslipidemia 01/02/2019 Essential hypertension 08/11/2015 GERD (gastroesophageal reflux disease) Incisional hernia 06/26/2013 Injury to rectosigmoid colon 10/17/2012 Low HDL (under 40) 10/2013 Nephrolithiasis Osteoarthrosis, unspecified whether generalized or localized, other specified sites Osteoarthritis Bilateral knees Spasm of muscle Tobacco use disorder quit 2012 Unspecified hereditary and idiopathic peripheral neuropathy 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 Ramirez COLONOSCOPY 09/17/2022 repeat in 10 years EGD 09/17/2022 HERNIA REPAIR HX 06/22/2013 HYSTERECTOMY HX 2011 fistula with intestine HYSTEROSCOPY, DIAGNOSTIC (SEPARATE Hysteroscopy/Novasure LAP HYSTERECTOMY FOR UTERUS 250G OR LESS 10/09/2012 with vaginal sling, LSO, right salpingectomy LAPS ABD PRTM&OMENTUM DX W/WO SPEC BR/WA SPX Laparoscopy LAPS REPAIR HERNIA EXCEPT INCAL/INGUN REDUCIBLE 05/2017 LIG/TRNSXJ FLP TUBE ABDL/VAG APPR UNI/BI 2001 Tubal ligation PAST SURGICAL HISTORY OF 01/30/2005 Left shoulder arthroscopy and debridement PAST SURGICAL HISTORY OF 02/2004 3rd toe left foot PAST SURGICAL HISTORY OF 03/14/2010 right total knee replacement PAST SURGICAL HISTORY OF 03/14/2009 left total knee replacement PAST SURGICAL HISTORY OF 01/23/2013 Ileostomy closure. PAST SURGICAL HISTORY OF Left 01/06/2016 left ring trigger release RPR 1ST INCAL/VNT HERNIA INCARCERATED 06/22/2013 at ileostomy site - 11x[address] \mesh RPR RECRT INCAL/VNT HERNIA INCARCERATED 07/23/2014 at midline' RPR RECRT INCAL/VNT HERNIA INCARCERATED 10/11/2014 - recurrent small bowel resection, enterotomy Current Outpatient Medications Medication Sig Cholecalciferol, Vitamin D3, 125 mcg (5,000 unit) cap Take 1 capsule by mouth once daily. ibuprofen (MOTRIN) 800 mg tablet TAKE 1 TABLET BY MOUTH EVERY 8 HOURS NEEDED FOR PAIN WITH FOOD Oral Medication Containers (SHARPS CONTAINER) misc Use to collect sharps as directed. Blood-Glucose Sensor (FREESTYLE MICHI 3 SENSOR) ingrid Apply new sensor to back of upper arm every 14days flash glucose scanning reader (FREESTYLE MICHI 3 READER) Use to monitor blood glucose continuously dulaglutide (TRULICITY) 4.5 mg/0.5 mL pen injector Inject 4.5 mg subcutaneously one time a week. insulin degludec (TRESIBA FLEXTOUCH U-200) 200 unit/mL (3 mL) injection Inject 90 Units subcutaneously daily at bedtime. insulin aspart U-100 (NOVOLOG U-100 INSULIN ASPART) 100 unit/mL Inject 16 units subcutaneously as directed plus sliding scale with meals. Insulin [place], Disposable, (UNIFINE PENTIPS) 31 gauge x 3/16 Use as directed 4 times daily with insulin Calcium Citrate-Vitamin D3 (CITRACAL+D) 315 mg-6.25 mcg (250 unit) tab Take 1 tablet by mouth once daily. flash glucose sensor (FREESTYLE MICHI 14 DAY SENSOR) kit Apply sensor to back of arm to check bloodsugars as directed. Change sensor every 2 weeks and rotate arms. famotidine (PEPCID) 20 mg tablet Take 1 tablet by mouth twice daily. FLUoxetine (PROZAC) 20 mg capsule Take 1 capsule by mouth once daily. In the morning, for depression atorvastatin (LIPITOR) 40 mg tablet Take 1 tablet by mouth once daily. cyanocobalamin (VITAMIN B-12) 1,000 mcg tab Take 2 tablets by mouth once daily. aspirin, enteric coated (ASPIRIN, ENTERIC COATED) 81 mg EC tablet Take 1 tablet by mouth once daily. mupirocin (BACTROBAN) 2 % ointment Apply to affected area every 12 hours as needed (rash, skin lesions). gabapentin (NEURONTIN) 100 mg capsule Take 1-2 capsules by mouth daily at bedtime for 30 days. For foot pain alcohol swabs (BD SINGLE USE SWABS REGULAR) Use as directed 4 to 5 times daily to check blood sugars and with insulin injections lisinopril (ZESTRIL) 10 mg tablet Take 1 tablet by mouth once daily. metFORMIN (GLUCOPHAGE) 1,000 mg tablet Take 1 tablet by mouth twice daily. diclofenac (VOLTAREN ARTHRITIS PAIN) 1 % topical gel Apply 2 g to affected area four times daily. glucagon (BAQSIMI) 3 mg/actuation nasal spray Use 1 [place] in the nose as needed for low blood sugar. May repeat after 15 minutes using a new device if there is no response. polyethylene glycol 3350 (MIRALAX) 17 gram/dose powder 1 capful daily in the morning albuterol HFA (VENTOLIN HFA) 90 mcg/actuation inhaler Inhale 2 Puffs as instructed every 4 hours asneeded. For wheezing/shortness of breath. blood sugar diagnostic (FREESTYLE PRECISION JEREMIAS STRIPS) test strip Use to test blood sugar up to twice daily as instructed. Dx: insulin-dependent DM azithromycin (ZITHROMAX Z-REKHA) 250 mg tablet Take 2 tablets day one, then, 1 tablet daily until gone. codeine-guaiFENesin (ROBITUSSIN AC) 10-100 mg/5 mL syrup Take 5 mL by mouth three times a day as needed for cold/allergy symptoms or cough for up to 7 days. benzonatate (TESSALON PERLES) 100 mg capsule Take 1 capsule by mouth three times a day as needed for cough. No current facility-administered medications for this visit. ALLERGIES Allergen Reactions Omnicef [Cefdinir] Itching Vaginitis severe Proventil [Albutero* Vomiting Can not tolerate generic albuterol 08/22/12 - MEM. Tramadol Hives Social History Tobacco Use Smoking status: Former Packs/day: 0.50 Years: 24.00 Additional pack years: 0.00 Total pack years: 12.00 Types: Cigarettes Quit date: 05/13/2013 Years since quittin.3 Smokeless tobacco: Never Vaping Use Vaping Use: Never used Substance Use Topics Alcohol use: No Drug use: No ROS: See HPI PE: BP 124/80 Pulse 85 Resp 16 SpO2 97% LMP 08/30/2012 Gen: A&OX3, NAD, non-toxic appearing HEENT: PERRLA, EOMs intact b/l, nares with congestion and posterior and anterior drainage, pharynx without erythema, exudate, lesions, + drainage. Uvula midline. MMM, EAC wnl, TM with serous effusionleft >right Neck: No LAD, no thyromegaly, no meningismus. CV: RRR, no murmur Lungs: coughing, bronchial breath sounds right base, no distress No edema, normal pulses Skin: No rashes, lesions, or wounds on exposed skin. ASSESSMENT/PLAN: 1. Acute non-recurrent maxillary sinusitis - ICD9: 461.0, ICD10: J01.00 (primary diagnosis) - Will begin treatment with as per antibiotic as written, see orders - AZITHROMYCIN 250 MG TABLET - COVID & INFLUENZA A/B & RSV NAAT, ROUTINE 2. Acute bronchitis, unspecified organism - ICD9: 466.0, ICD10: J20.9 rx as below, supportive care, f/u in office if symptoms aren't resolving - AZITHROMYCIN 250 MG TABLET - CODEINE 10 MG-GUAIFENESIN 100 MG/5 ML ORAL LIQUID - COVID & INFLUENZA A/B & RSV NAAT, ROUTINE 3. Rhinorrhea - ICD9: 478.19, ICD10: J34.89 - Will begin treatment with as per antibiotic as written, see orders - COVID & INFLUENZA A/B & RSV NAAT, ROUTINE Jese Zheng DO Return if no improvement. Follow up with Jese Zheng DO. To ER if develops chest pain, shortness of breath. Discussed risks, benefits, alternatives, and potential side effects of medications. Patient/Guardian expressed understanding and agreed with the plan. See patient instructions. Jese Zheng DO [address] [place] [address] documented in this encounterGlenbeigh Hospital02-17-2024 Miscellaneous Notes* Telephone Encounter - Mariana Joy RN - 09/07/2023 9:02 AM EST Patient notified of results and provider's instructions. Patient verbalizes understanding. Patient states that she has appointment with pharmacist on 09/25. Patient asking if provider can send in refill for vitamin d3 5,000 units? Mariana Joy RN * Telephone Encounter - Hayde Zhu - 09/05/2023 2:20 PM EST Left message to return call Hayde Zhu * Telephone Encounter - Jese Zheng DO - 09/04/2023 8:43 PM EST Please let her know that her A1c is still out of control at 11.2%. is she taking her medications asprescribed? Needs a follow up with Pharmacist. Also her vitamin D is very very low. Needs to be taking 5000 international unit(s) a day of vitaminD3 with a meal Jese Zheng DO documented in this encounterGlenbeigh Hospital02-06-2024 Miscellaneous Notes* Telephone Encounter - Antonette Kurtz LPN - 08/27/2023 4:38 PM EST Patient has been identified by name and date of : Patient phones for refill(s): Requested Prescriptions Pending Prescriptions Disp Refills ibuprofen (MOTRIN) 800 mg tablet 60 tablet 1 Sig: TAKE 1 TABLET BY MOUTH EVERY 8 HOURS NEEDED FOR PAIN WITH FOOD Date of last office visit in primary care: 08/27/2023 Date of next office visit in primary care: 11/27/2023 Please advise. Thank you. Antonette Kurtz LPN. documented in this encounterGlenbeigh Hospital02-06-2024 History of Present illness Narrative* Jese Zheng DO - 08/27/2023 8:47 AM EST Patient presents with: F/U 3 Month HPI: Lina Isaac is a 57 year old female who presents to the office today for review of health conditions. Concerns today: \ URI symptoms for the last 16-17 days . Sick contact with her daughter Tesfaye, feels that she has sinus pressure and post nasal drainage and right ear pressure and chest congestion and cough, no sputum production. Has been taking mucinex over the counter with some improvement but cough remains present. Ms. Isaac has past history of diabetes. Since our last visit she denies excessive thirst or increased frequency of urination, chest pain or dyspnea , new or unusual visual symptoms, and low sugar/hypoglycemic reactions. Depression- no. Follows a diabetic diet most of the time. She is compliant with medication(s) and is tolerating med(s) without any side effects. She reports checking her glucose on a CGM schedule with sugars in the fasting 150-200s range. No episodes of hypoglycemia recently nowthat she has good accurate CGM, Patient's last HgA1C was Hemoglobin A1C (%) Date Value 02/19/2023 11.4 11/08/2022 10.5 08/14/2021 11.2 05/09/2021 12.1 Hemoglobin A1C (POCT) (%) Date Value 05/27/2023 11.4 11/08/2022 10.7 ) Last Ophthalmology exam was within the past 12 months Ms. Isaac reports history of hyperlipidemia. Current therapy includes atorvastatin (Lipitor) 40 mg.Denies side effects of muscle weakness or achiness. Her most recent lipid panels are reviewed. Cholesterol, Total (mg/dL) Date Value 07/24/2022 193 05/09/2021 205 Total Cholesterol, Nonfasting (mg/dL) Date Value 02/19/2023 226 HDL Cholesterol (mg/dL) Date Value 07/24/2022 48 05/09/2021 54 HDL Cholesterol, Nonfasting (mg/dL) Date Value 02/19/2023 48 LDL Cholesterol (mg/dL) Date Value 05/09/2021 127 LDL Cholesterol, Nonfasting (mg/dL) Date Value 02/19/2023 152 Triglyceride (mg/dL) Date Value 07/24/2022 95 05/09/2021 120 Triglycerides, Nonfasting (mg/dL) Date Value 02/19/2023 132 Ms. Isaac indicates a history of hypertension and states that she is feeling well and denies any symptoms referable to elevated blood pressure. Specifically denies headache, chest pain, palpitations,dyspnea, and peripheral edema. Patient denies any side effects of her medication(s) and is compliant with their regimen. Last 3 Encounter BP Readings: Date: BP: 08/27/2023 138/82 05/27/2023 138/82 04/05/2023 142/92 She watches her diet for sodium, low fat and low cholesterol some of the time. She does not check BP's generally. Lina gets sporadic irregular exercise. PAST MEDICAL HISTORY Diagnosis Date Asthma Bowel perforation 11/05/2012 C. difficile colitis 04/2016 Closed nondisplaced fracture of proximal phalanx of lesser toe of left foot with routine healing 10/07/2019 COVID-19 03/30/2021 Diabetes mellitus type 2 in obese (HCC) (HCC) 10/2013 A1C 6.8% Dyslipidemia 01/02/2019 Essential hypertension 08/11/2015 GERD (gastroesophageal reflux disease) Incisional hernia 06/26/2013 Injury to rectosigmoid colon 10/17/2012 Low HDL (under 40) 10/2013 Nephrolithiasis Osteoarthrosis, unspecified whether generalized or localized, other specified sites Osteoarthritis Bilateral knees Spasm of muscle Tobacco use disorder quit 2012 Unspecified hereditary and idiopathic peripheral neuropathy 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 Ramirez COLONOSCOPY 09/17/2022 repeat in 10 years EGD 09/17/2022 HERNIA REPAIR HX 06/22/2013 HYSTERECTOMY HX 2011 fistula with intestine HYSTEROSCOPY, DIAGNOSTIC (SEPARATE Hysteroscopy/Novasure LAP HYSTERECTOMY FOR UTERUS 250G OR LESS 10/09/2012 with vaginal sling, LSO, right salpingectomy LAPS ABD PRTM&OMENTUM DX W/WO SPEC BR/WA SPX Laparoscopy LAPS REPAIR HERNIA EXCEPT INCAL/INGUN REDUCIBLE 05/2017 LIG/TRNSXJ FLP TUBE ABDL/VAG APPR UNI/BI 2001 Tubal ligation PAST SURGICAL HISTORY OF 01/30/2005 Left shoulder arthroscopy and debridement PAST SURGICAL HISTORY OF 02/2004 3rd toe left foot PAST SURGICAL HISTORY OF 03/14/2010 right total knee replacement PAST SURGICAL HISTORY OF 03/14/2009 left total knee replacement PAST SURGICAL HISTORY OF 01/23/2013 Ileostomy closure. PAST SURGICAL HISTORY OF Left 01/06/2016 left ring trigger release RPR 1ST INCAL/VNT HERNIA INCARCERATED 06/22/2013 at ileostomy site - 11x[address] \mesh RPR RECRT INCAL/VNT HERNIA INCARCERATED 07/23/2014 at midline' RPR RECRT INCAL/VNT HERNIA INCARCERATED 10/11/2014 - recurrent small bowel resection, enterotomy Social History Tobacco Use Smoking status: Former Packs/day: 0.50 Years: 24.00 Additional pack years: 0.00 Total pack years: 12.00 Types: Cigarettes Quit date: 05/13/2013 Years since quittin.2 Smokeless tobacco: Never Vaping Use Vaping Use: Never used Substance Use Topics Alcohol use: No Drug use: No FAMILY HISTORY Problem Relation Age of Onset Hypertension Mother Diabetes Mother Cancer Maternal Uncle throat cancer Hypertension Sister Diabetes Sister other (hyperlipidemia) Sister Allergies: ALLERGIES Allergen Reactions Lac Hydrin [Other] Dried her feet Omnicef [Cefdinir] Itching Vaginitis severe Proventil [Albutero* Vomiting Can not tolerate generic albuterol 08/22/12 - MEM. Tramadol Hives Current Meds: Oral Medication Containers (SHARPS CONTAINER) misc Use to collect sharps as directed. Blood-Glucose Sensor (FREESTYLE MICHI 3 SENSOR) ingrid Apply new sensor to back of upper arm every 14days flash glucose scanning reader (FREESTYLE MICHI 3 READER) Use to monitor blood glucose continuously dulaglutide (TRULICITY) 4.5 mg/0.5 mL pen injector Inject 4.5 mg subcutaneously one time a week. insulin aspart U-100 (NOVOLOG U-100 INSULIN ASPART) 100 unit/mL Inject 16 units subcutaneously as directed plus sliding scale with meals. Insulin [place], Disposable, (UNIFINE PENTIPS) 31 gauge x 3/16 Use as directed 4 times daily with insulin Calcium Citrate-Vitamin D3 (CITRACAL+D) 315 mg-6.25 mcg (250 unit) tab Take 1 tablet by mouth once daily. flash glucose sensor (FREESTYLE MICHI 14 DAY SENSOR) kit Apply sensor to back of arm to check bloodsugars as directed. Change sensor every 2 weeks and rotate arms. famotidine (PEPCID) 20 mg tablet Take 1 tablet by mouth twice daily. FLUoxetine (PROZAC) 20 mg capsule Take 1 capsule by mouth once daily. In the morning, for depression atorvastatin (LIPITOR) 40 mg tablet Take 1 tablet by mouth once daily. cyanocobalamin (VITAMIN B-12) 1,000 mcg tab Take 2 tablets by mouth once daily. aspirin, enteric coated (ASPIRIN, ENTERIC COATED) 81 mg EC tablet Take 1 tablet by mouth once daily. mupirocin (BACTROBAN) 2 % ointment Apply to affected area every 12 hours as needed (rash, skin lesions). alcohol swabs (BD SINGLE USE SWABS REGULAR) Use as directed 4 to 5 times daily to check blood sugars and with insulin injections lisinopril (ZESTRIL) 10 mg tablet Take 1 tablet by mouth once daily. metFORMIN (GLUCOPHAGE) 1,000 mg tablet Take 1 tablet by mouth twice daily. diclofenac (VOLTAREN ARTHRITIS PAIN) 1 % topical gel Apply 2 g to affected area four times daily. glucagon (BAQSIMI) 3 mg/actuation nasal spray Use 1 [place] in the nose as needed for low blood sugar. May repeat after 15 minutes using a new device if there is no response. Cholecalciferol, Vitamin D3, 125 mcg (5,000 unit) cap Take 1 capsule by mouth once daily. polyethylene glycol 3350 (MIRALAX) 17 gram/dose powder 1 capful daily in the morning albuterol HFA (VENTOLIN HFA) 90 mcg/actuation inhaler Inhale 2 Puffs as instructed every 4 hours asneeded. For wheezing/shortness of breath. blood sugar diagnostic (FREESTYLE PRECISION JEREMIAS STRIPS) test strip Use to test blood sugar up to twice daily as instructed. Dx: insulin-dependent DM insulin degludec (TRESIBA FLEXTOUCH U-200) 200 unit/mL (3 mL) injection Inject 90 Units subcutaneously daily at bedtime. ibuprofen (MOTRIN) 800 mg tablet TAKE 1 TABLET BY MOUTH EVERY 8 HOURS NEEDED FOR PAIN WITH FOOD gabapentin (NEURONTIN) 100 mg capsule Take 1-2 capsules by mouth daily at bedtime for 30 days. For foot pain Review of Systems: The remainder of the review of systems is negative. PE: 08/27/23 0837 BP: 138/82 Pulse: 80 Resp: 16 Temp: 36.1 C (97 F) TempSrc: Temporal Weight: 89.8 kg (198 lb) Gen: A&O, NAD, non-toxic appearing, Pleasant, cooperative HEENT: NT/AC, PERRLA, EOMs intact b/l, nares congested b/l, pharynx without erythema, exudate or lesions. + PND, MMM, Uvula midline. EACs without erythema or debris. TMs pearly julien with intact landmarks b/l. Neck: supple, No cervical LAD, no thyromegaly, no carotid bruits CV: RRR, normal S1 and S2, no murmurs, no gallops, no rubs, Pulses 2+ and symmetric in UE and LE b/l Lungs: normal respiratory effort, cough, bronchial breath sounds b/l and no egophony or signs of consolidation on exam, no wheezing or rales Abd: soft, NT, ND, +BS, no hepatosplenomegaly MS: FROM all 4 extremities Neuro: CN II-XII intact b/l, strength 5/5 b/l UE and LE, DTRs 2/4 UE and LE, sensation intact. Skin: warm, dry, intact, No rashes or lesions on exposed skin. Foot exam: no edema, normal pulses ASSESSMENT/PLAN: 1. Type 2 diabetes mellitus with peripheral neuropathy (HCC) - ICD9: 250.60, 357.2, ICD10: E11.42 (primary diagnosis) - Control undetermined, due for labs - Continue current medications - Blood glucose monitoring on a continuous glucose monitoring schedule - Counseled on healthy diet and regular exercise - Discussed need for and benefit of weight loss. BMI 30.11 kg/(m^2) - HGB A1C - COMP METABOLIC PANEL - CBC + DIFF - TSH BLD - MAGNESIUM BLD - VITAMIN B12 BLOOD 2. Other polyneuropathy - ICD9: 357.89, ICD10: G62.89 Stable, chronic, secondary to diabetes. 3. Fatigue, unspecified type - ICD9: 780.79, ICD10: R53.83 Chronic, stable 4. Dyslipidemia - ICD9: 272.4, ICD10: E78.5 - Control undetermined, due for labs - Continue current medications - Counseled on healthy diet and regular exercise - Discussed need for and benefit of weight loss. BMI 30.11 kg/(m^2) - LIPID PANEL BASIC - TSH BLD 5. Hepatic steatosis - ICD9: 571.8, ICD10: K76.0 She is aware of dietary needs and weight loss 6. Obesity, Class I, BMI 30-34.9 - ICD9: 278.00, ICD10: E66.9 - Lengthy discussion in office today regarding diet and exercise. Discussed use of small plate to eat meals from, drink 1 glass of water 10-15 minutes prior to eating meal, drink 8 glasses of water daily, eat fresh fruit and vegetable during meal first then lean protein such as grilled/baked chicken breast or fish, limit carbohydrate intake (less pasta, breads, rice and snack foods) as well as limiting sugars (desserts etc). Important to count / track your calories and exercise as well. 7. Vitamin D deficiency - ICD9: 268.9, ICD10: E55.9 Continue supplement - VITAMIN D 25 HYDROXY 8. Acute bronchitis, unspecified organism - ICD9: 466.0, ICD10: J20.9 Continue mucinex and supportive care - AZITHROMYCIN 250 MG TABLET - FLUCONAZOLE 150 MG TABLET Jese Zheng DO To ER if develops chest pain, shortness of breath, or severe worsening of symptoms. Discussed risks, benefits, alternatives, and potential side effects of medications. Patient expressed understanding and agreed with the plan. Jese Zheng DO [address] [place] [address] documented in this encounterGlen[facility]02-[facility]-2024 History of Present illness Narrative* Susana Garcia, [facility] - 08/22/2023 3:00 PM EST Primary Care Pharmacy Visit CC (Reason for Consult): (E11.65) Uncontrolled type 2 diabetes mellitus with hyperglycemia (HCC) (primary encounter diagnosis) Goal(s): A1c <7% Last Collaborating Provider Visit: 05/27/[address] Norm Cevallosjohnny Isaac is a 57 year old female presenting for follow up visit in person. Patient consentsto pharmacy collaborative practice agreement. Last Pharmacy Visit: 07/25/23 - discussed skipping Novolog if not eating a meal to avoid hypoglycemia; plan to switch to Michi 3 HPI: Reports she recently had a cold, not getting completely better yet. Planning on making an appointment with Dr. Zheng on her way out of appointment today States she got the Michi 3 - 2 sensors only cost $20 with new insurance. Has not started using yet,brought in sensor for help with placement of first sensor Reports copay for Pramod was only ~$35 Denies any recent low readings; however, has had some high ones but thinks it due to her being sick. States it also may be from cold/cough medicine she's been taking Current DM Medications: Metformin 1000 mg BID Trulicity 4.5 mg once weekly Tresiba 90 units once daily Novolog 16 units + sliding scale with meals 200-230 = add 2 units 230-260 = add 4 units 260-300 = add 6 units >300 = add 8 units GLYCEMIC CONTROL: Glucometer present at visit: No Hypoglycemia: No Assisted with set up of Michi 3 birdie and first Michi 3 sensor Past medical history reviewed. ALLERGIES Allergen Reactions Lac Hydrin [Other] Dried her feet Omnicef [Cefdinir] Itching Vaginitis severe Proventil [Albutero* Vomiting Can not tolerate generic albuterol 08/22/12 - MEM. Tramadol Hives Current Outpatient Medications Medication Sig Dispense Refill Oral Medication Containers (SHARPS CONTAINER[place] [facility] [place] as directed. 1 Each 0 Blood-Glucose Sensor (FREESTYLE MICHI 3 SENSOR) ingrid Apply new sensor to back of upper arm every 14days 6 Each 4 flash glucose scanning reader ([employer] AnalyticsSTYLE MICHI 3 READER) Use to monitor blood glucose continuously 1 Each 0 dulaglutide (TRULICITY) 4.5 mg/0.5 mL pen injector Inject 4.5 mg subcutaneously one time a week. 6 mL 3 insulin degludec (TRESIBA FLEXTOUCH U-200) 200 unit/mL (3 mL) injection Inject 90 Units subcutaneously daily at bedtime. insulin aspart U-100 (NOVOLOG U-100 INSULIN ASPART) 100 unit/mL Inject 16 units subcutaneously as directed plus sliding scale with meals. Insulin [place], Disposable, (UNIFINE PENTIPS) 31 gauge x 3/16 Use as directed 4 times daily with insulin 400 Each 3 Calcium Citrate-Vitamin D3 (CITRACAL+D) 315 mg-6.25 mcg (250 unit) tab Take 1 tablet by mouth once daily. 30 tablet 3 ibuprofen (MOTRIN) 800 mg tablet TAKE 1 TABLET BY MOUTH EVERY 8 HOURS NEEDED FOR PAIN WITH FOOD 60 tablet 1 flash glucose sensor (FREESTYLE MICHI 14 DAY SENSOR) kit Apply sensor to back of arm to check bloodsugars as directed. Change sensor every 2 weeks and rotate arms. 6 Each 3 famotidine (PEPCID) 20 mg tablet Take 1 tablet by mouth twice daily. 180 tablet 3 FLUoxetine (PROZAC) 20 mg capsule Take 1 capsule by mouth once daily. In the morning, for depression 90 capsule 1 atorvastatin (LIPITOR) 40 mg tablet Take 1 tablet by mouth once daily. 90 tablet 3 cyanocobalamin (VITAMIN B-12) 1,000 mcg tab Take 2 tablets by mouth once daily. 180 tablet 1 aspirin, enteric coated (ASPIRIN, ENTERIC COATED) 81 mg EC tablet Take 1 tablet by mouth once daily. 90 tablet 3 mupirocin (BACTROBAN) 2 % ointment Apply to affected area every 12 hours as needed (rash, skin lesions). 66 g 2 gabapentin (NEURONTIN) 100 mg capsule Take 1-2 capsules by mouth daily at bedtime for 30 days. For foot pain 60 capsule 5 alcohol swabs (BD SINGLE USE SWABS REGULAR) Use as directed 4 to 5 times daily to check blood sugars and with insulin injections 360 Each 3 lisinopril (ZESTRIL) 10 mg tablet Take 1 tablet by mouth once daily. 90 tablet 3 metFORMIN (GLUCOPHAGE) 1,000 mg tablet Take 1 tablet by mouth twice daily. 180 tablet 3 diclofenac (VOLTAREN ARTHRITIS PAIN) 1 % topical gel Apply 2 g to affected area four times daily. 100 g 1 glucagon (BAQSIMI) 3 mg/actuation nasal spray Use 1 [place] in the nose as needed for low blood sugar. May repeat after 15 minutes using a new device if there is no response. 1 Each 3 Cholecalciferol, Vitamin D3, 125 mcg (5,000 unit) cap Take 1 capsule by mouth once daily. (Patient not taking: Reported on 11/15/2022) 90 capsule 3 polyethylene glycol 3350 (MIRALAX) 17 gram/dose powder 1 capful daily in the morning 1700 g 3 albuterol HFA (VENTOLIN HFA) 90 mcg/actuation inhaler Inhale 2 Puffs as instructed every 4 hours asneeded. For wheezing/shortness of breath. 18 g 3 blood sugar diagnostic (FREESTYLE PRECISION JEREMIAS STRIPS) test strip Use to test blood sugar up to twice daily as instructed. Dx: insulin-dependent DM 50 Strip 11 No current facility-administered medications for this visit. Pill bottles are not present. Adherence: denies missed doses. Rx coverage: Payor: SEAN / Plan: SEAN MCDONALD MARIA EUGENIA / Product Type: EPO / Medications affordable? Yes PHARMACOTHERAPY PREVENTATIVE MEDS: On JANNIE/ARB: Yes On Statin: Yes On ASA: Yes EXAM: LMP 08/30/2012 Last 3 Encounter BP Readings: Date: BP: 05/27/2023 138/82 04/05/2023 142/92 02/19/2023 124/80 Wt: 90.3 kg (199 lb) BMI: 30.26 kg/(m^2) LABS: Lab Results Component Value Date HBA1C 11.4 05/27/2023 HBA1C 11.4 02/19/2023 HBA1C 10.5 11/08/2022 HBA1C 10.7 11/08/2022 HBA1C 12.2 07/24/2022 HBA1C 11.2 08/14/2021 HBA1C 12.1 05/09/2021 HBA1C 10.3 08/05/2020 Glucose 225 02/19/2023 BUN 11 02/19/2023 Creatinine, Whole Blood (iSTAT) 0.48 02/19/2023 Sodium 139 02/19/2023 Potassium 3.9 02/19/2023 Chloride 103 02/19/2023 CO2 25 02/19/2023 Protein, Total 8.0 02/19/2023 Albumin 4.4 02/19/2023 Calcium 10.1 02/19/2023 Alkaline Phosphatase 93 02/19/2023 Bilirubin, Total 0.8 02/19/2023 AST 15 02/19/2023 ALT 16 02/19/2023 Lab Results Component Value Date CHOL 226 02/19/2023 CHOL 193 07/24/2022 CHOL 205 05/09/2021 LDL 152 02/19/2023 LDL 127 05/09/2021 HDL 48 02/19/2023 HDL 48 07/24/2022 HDL 54 05/09/2021 TG 132 02/19/2023 TG 95 07/24/2022 TG 120 05/09/2021 Albumin/Creat Ratio (mg/g) Date Value 07/24/2022 31 (H) eGFR-All Other Races (.) Date Value 05/09/2021 >60 Estimated Glomerular Filtration Rate (mL/min/1.73m ) Date Value 02/19/2023 110 ASSESSMENT/PLAN: 1. Uncontrolled type 2 diabetes mellitus with hyperglycemia (HCC) - ICD9: 250.02, ICD10: E11.65 - Control undetermined, due for labs. Last A1c above goal <7%. CGM report unavailable. No hypoglycemia. Will reassess glycemic control at next visit with review of Michi report now that patient connected with Precipio allowing for continuous monitoring. - Continue current medications - Statin prescribed - atorvastatin - Blood glucose monitoring on a continuous glucose monitoring schedule. Assisted with set up of Precipio birdie and placement of first sensor. Sensor activated in office. - Counseled on healthy diet and regular exercise - Follow up in 1 month, sooner should any other issues arise. Follow Up: Next PCP visit: 08/27/23 Next PharmD visit: 09/26/23 Susana Garcia PharmD Primary Care Clinical [employer] Furniture [employer] The majority of the pharmacy visit (> 50%) was spent counseling and/or coordinating care for thepatient. interaction: face to face time was 35 minutes. documented in this encounterGlen[facility]02-01-2024 Instructions* Patient Instructions* Susana Garcia RPh - 08/22/2023 3:00 PM EST Continue current medications: Metformin 1000 mg BID Trulicity 4.5 mg once weekly Tresiba 90 units once daily Novolog 16 units + sliding scale with meals 200-230 = add 2 units 230-260 = add 4 units 260-300 = add 6 units >300 = add 8 units documented in this encounterGlen[facility]12-07-2023 History of Present illness Narrative* Susana Garcia RPh - 06/27/2023 3:00 PM EST Primary Care Pharmacy Visit CC (Reason for Consult): (E11.65) Uncontrolled type 2 diabetes mellitus with hyperglycemia (HCC) (primary encounter diagnosis) Goal(s): A1c <7% Last Collaborating Provider Visit: 05/27/[address] Norm Mills Bean Isaac is a 57 year old female presenting for follow up visit in person. Patient consentsto pharmacy collaborative practice agreement. Last Pharmacy Visit: 06/06/23 HPI: Reports her BGs aren't too bad recently, not having lows anymore Feels funny if under 87 mg/dl Set up Epicsell birdie during visit for use with next sensor Will have new insurance Sean starting July 22, including Rx insurance. Will cover her Tresiba,Novolog and Trulicity; does not need to switch insulins anymore Current DM Medications: Metformin 1000mg BID Trulicity 4.5 mg once weekly Toujeo Max 72 units once daily - not taking; taking Tresiba 82 units daily Admelog 10 units + sliding scale with meals - not taking; taking Novolog 16 units + sliding scale 200-230 = add 2 units 230-260 = add 4 units 260-300 = add 6 units >300 = add 8 units GLYCEMIC CONTROL: Glucometer present at visit: Yes Hypoglycemia: No CGM Data Sensor usage: 10% (Goal >70%) Hypoglycemia events: 0%, 0 events Date range Overall AVG 12a-6a 6a-12p 12p-6p 6p-12a TIME IN RANGE 7 day 313 293 331 ABOVE 86% 14 day 273 258 288 113 IN (80-180) 14% 30 day 250 250 273 116 BELOW 0% 90 day 261 265 266 211 385 Past medical history reviewed. ALLERGIES Allergen Reactions Lac Hydrin [Other] Dried her feet Omnicef [Cefdinir] Itching Vaginitis severe Proventil [Albutero* Vomiting Can not tolerate generic albuterol 08/22/12 - MEM. Tramadol Hives Current Outpatient Medications Medication Sig Dispense Refill insulin glargine U-300 conc (TOUJEO MAX U-300 SOLOSTAR) 300 unit/mL (3 mL) inpn Inject 72 Units subcutaneously every morning. Type 2 diabetes uncontrolled, insulin dependent 6 mL 11 insulin lispro (ADMELOG SOLOSTAR U-100 INSULIN) 100 unit/mL Inject 10 Units subcutaneously three times a day before meals. Plus sliding scale 15 mL 5 Insulin [place], Disposable, (UNIFINE PENTIPS) 31 gauge x 3/16 Use as directed 4 times daily with insulin 400 Each 3 Calcium Citrate-Vitamin D3 (CITRACAL+D) 315 mg-6.25 mcg (250 unit) tab Take 1 tablet by mouth once daily. 30 tablet 3 ibuprofen (MOTRIN) 800 mg tablet TAKE 1 TABLET BY MOUTH EVERY 8 HOURS NEEDED FOR PAIN WITH FOOD 60 tablet 1 flash glucose sensor (FREESTYLE MICHI 14 DAY SENSOR) kit Apply sensor to back of arm to check bloodsugars as directed. Change sensor every 2 weeks and rotate arms. 6 Each 3 famotidine (PEPCID) 20 mg tablet Take 1 tablet by mouth twice daily. 180 tablet 3 FLUoxetine (PROZAC) 20 mg capsule Take 1 capsule by mouth once daily. In the morning, for depression 90 capsule 1 atorvastatin (LIPITOR) 40 mg tablet Take 1 tablet by mouth once daily. 90 tablet 3 cyanocobalamin (VITAMIN B-12) 1,000 mcg tab Take 2 tablets by mouth once daily. 180 tablet 1 aspirin, enteric coated (ASPIRIN, ENTERIC COATED) 81 mg EC tablet Take 1 tablet by mouth once daily. 90 tablet 3 flash glucose scanning reader (FREESTYLE MICHI 14 DAY READER) Use to test blood sugar as directed. 1 Each 0 mupirocin (BACTROBAN) 2 % ointment Apply to affected area every 12 hours as needed (rash, skin lesions). 66 g 2 gabapentin (NEURONTIN) 100 mg capsule Take 1-2 capsules by mouth daily at bedtime for 30 days. For foot pain 60 capsule 5 alcohol swabs (BD SINGLE USE SWABS REGULAR) Use as directed 4 to 5 times daily to check blood sugars and with insulin injections 360 Each 3 lisinopril (ZESTRIL) 10 mg tablet Take 1 tablet by mouth once daily. 90 tablet 3 Oral Medication Containers (SHARPS CONTAINER) [facility] [place] to [place] sharps as directed. 1 Each 0 metFORMIN (GLUCOPHAGE) 1,000 mg tablet Take 1 tablet by mouth twice daily. 180 tablet 3 TRULICITY 4.5 mg/0.5 mL pen injector Inject 4.5 mg subcutaneously one time a week. 4 mL 3 diclofenac (VOLTAREN ARTHRITIS PAIN) 1 % topical gel Apply 2 g to affected area four times daily. 100 g 1 glucagon (BAQSIMI) 3 mg/actuation nasal spray Use 1 [place] in the nose as needed for low blood sugar. May repeat after 15 minutes using a new device if there is no response. 1 Each 3 Cholecalciferol, Vitamin D3, 125 mcg (5,000 unit) cap Take 1 capsule by mouth once daily. (Patient not taking: Reported on 11/15/2022) 90 capsule 3 polyethylene glycol 3350 (MIRALAX) 17 gram/dose powder 1 capful daily in the morning 1700 g 3 albuterol HFA (VENTOLIN HFA) 90 mcg/actuation inhaler Inhale 2 Puffs as instructed every 4 hours asneeded. For wheezing/shortness of breath. 18 g 3 blood sugar diagnostic (FREESTYLE PRECISION JEREMIAS STRIPS) test strip Use to test blood sugar up to twice daily as instructed. Dx: insulin-dependent DM 50 Strip 11 No current facility-administered medications for this visit. Pill bottles are not present. Adherence: denies missed doses. Rx coverage: Payor: MULTIPLAN / [facility] / Product Type: PPO / Medications affordable? Yes PHARMACOTHERAPY PREVENTATIVE MEDS: On JANNIE/ARB: Yes On Statin: Yes On ASA: Yes EXAM: LMP 08/30/2012 Last 3 Encounter BP Readings: Date: BP: 05/27/2023 138/82 04/05/2023 142/92 02/19/2023 124/80 Wt: 90.3 kg (199 lb) BMI: 30.26 kg/(m^2) LABS: Lab Results Component Value Date HBA1C 11.4 05/27/2023 HBA1C 11.4 02/19/2023 HBA1C 10.5 11/08/2022 HBA1C 10.7 11/08/2022 HBA1C 12.2 07/24/2022 HBA1C 11.2 08/14/2021 HBA1C 12.1 05/09/2021 HBA1C 10.3 08/05/2020 Glucose 225 02/19/2023 BUN 11 02/19/2023 Creatinine, Whole Blood (iSTAT) 0.48 02/19/2023 Sodium 139 02/19/2023 Potassium 3.9 02/19/2023 Chloride 103 02/19/2023 CO2 25 02/19/2023 Protein, Total 8.0 02/19/2023 Albumin 4.4 02/19/2023 Calcium 10.1 02/19/2023 Alkaline Phosphatase 93 02/19/2023 Bilirubin, Total 0.8 02/19/2023 AST 15 02/19/2023 ALT 16 02/19/2023 Lab Results Component Value Date CHOL 226 02/19/2023 CHOL 193 07/24/2022 CHOL 205 05/09/2021 LDL 152 02/19/2023 LDL 127 05/09/2021 HDL 48 02/19/2023 HDL 48 07/24/2022 HDL 54 05/09/2021 TG 132 02/19/2023 TG 95 07/24/2022 TG 120 05/09/2021 Albumin/Creat Ratio (mg/g) Date Value 07/24/2022 31 (H) eGFR-All Other Races (.) Date Value 05/09/2021 >60 Estimated Glomerular Filtration Rate (mL/min/1.73m ) Date Value 02/19/2023 110 ASSESSMENT/PLAN: 1. Uncontrolled type 2 diabetes mellitus with hyperglycemia (HCC) - ICD9: 250.02, ICD10: E11.65 - Uncontrolled - Increase Tresiba to 90 units once daily - Continue Novolog 16 units + sliding scale with meals - Continue Trulicity 4.5 mg once weekly and metformin 100 mg twice daily - Statin prescribed - atorvastatin - Blood glucose monitoring on a continuous glucose monitoring schedule. Set up Michi birdie on phone to start using with next sensor. May consider upgrade to Epicsell 3 at next visit - Counseled on healthy diet and regular exercise - Follow up in 1 month, sooner should any other issues arise. Follow Up: Next PCP visit: 08/27/23 Next PharmD visit: 07/25/23 at 3pm Susana Garcia PharmD Primary Care Clinical [employer] Furniture [employer] The majority of the pharmacy visit (> 50%) was spent counseling and/or coordinating care for thepatient. interaction: face to face time was 33 minutes. documented in this encounterGlen[facility]12-07-2023 Instructions* Patient Instructions* Susana Garcia RPh - 06/27/2023 3:00 PM EST Increase Tresiba to 90 units once daily Continue Novolog 16 units plus sliding scale with meals 200-230 = add 2 units 230-260 = add 4 units 260-300 = add 6 units >300 = add 8 units Continue Trulicity 4.5 mg once weekly and metformin 100 mg twice daily Start using your phone with your next sensor. Try to scan the sensor at least every 8 hours Next appointment: July 25 at 3PM documented in this encounterGlenbeigh Hospital11-28-2023 Miscellaneous Notes* Telephone Encounter - Susana Garcia RPh - 06/18/2023 10:39 AM EST Received PFA contact information from per patient request for assistance with choosing prescription drug plan Sent information via [employer] message to patient Susana Gacria, [facility] Primary Care Clinical Wood Furniture Assembler documented in this encounterGlenbeigh Hospital11-16-2023 History of Present illness Narrative* Susana Garcia RPh - 06/06/2023 3:00 PM EST Primary Care Pharmacy Visit CC (Reason for Consult): (E11.65) Uncontrolled type 2 diabetes mellitus with hyperglycemia (HCC) (primary encounter diagnosis) Goal(s): A1c <7% Last Collaborating Provider Visit: 05/27/[address] Norm Mills Bean Isaac is a 57 year old female presenting for follow up visit in person. Patient consentsto pharmacy collaborative practice agreement. Last Pharmacy Visit: 05/09/23 - Tresiba switched to Toujeo Max and Novolog switched to Admelog due to cost; plan to continue to hold Trulicity due to cost HPI: Reports she was unable to get her insulin with the coupon; thinks it was the Admelog that she got and Toujeo she was unable to get. Reports she found some insulin still good til next year in her fridge and started taking this vs going without insulin completely. Has been taking Tresiba, Trulicity and Novolog with the following doses: Tresiba 90 units QAM, Novolog 20 units +SSI with meals, and Trulicity 4.5 mg once weekly (not sure if Trulicity is 1.5 mg dose). States she thinks that since she wasn't taking her insulin for awhile, her doses may be too high because she is noticing some low readings. States she spoke with someone about coverage options, but the person from [facility] only recommended she log on to the portal to choose a plan. She states she needs assistance with choosing a program for prescription insurance so she knows what she is choosing. Current DM Medications: Metformin 1000mg BID Toujeo Max 72 units once daily - not taking; taking Tresiba 90 units daily Admelog 10 units + sliding scale with meals - not taking; taking Novolog 20 units + sliding scale 200-230 = add 2 units 230-260 = add 4 units 260-300 = add 6 units >300 = add 8 units Previously Trialed DM Meds: Trulicity - cost GLYCEMIC CONTROL: Glucometer present at visit: No Hypoglycemia: Yes BGs not available States BGs in the morning are near 200; but noticing lower readings then throughout the day Reports readings of 83, followed by 67; also had a 53 Past medical history reviewed. ALLERGIES Allergen Reactions Lac Hydrin [Other] Dried her feet Omnicef [Cefdinir] Itching Vaginitis severe Proventil [Albutero* Vomiting Can not tolerate generic albuterol 08/22/12 - MEM. Tramadol Hives Current Outpatient Medications Medication Sig Dispense Refill insulin glargine U-300 conc (TOUJEO MAX U-300 SOLOSTAR) 300 unit/mL (3 mL) inpn Inject 72 Units subcutaneously every morning. Type 2 diabetes uncontrolled, insulin dependent 6 mL 11 insulin lispro (ADMELOG SOLOSTAR U-100 INSULIN) 100 unit/mL Inject 10 Units subcutaneously three times a day before meals. Plus sliding scale 15 mL 5 Insulin [place], Disposable, (UNIFINE PENTIPS) 31 gauge x 3/16 Use as directed 4 times daily with insulin 400 Each 3 Calcium Citrate-Vitamin D3 (CITRACAL+D) 315 mg-6.25 mcg (250 unit) tab Take 1 tablet by mouth once daily. 30 tablet 3 ibuprofen (MOTRIN) 800 mg tablet TAKE 1 TABLET BY MOUTH EVERY 8 HOURS NEEDED FOR PAIN WITH FOOD 60 tablet 1 flash glucose sensor (FREESTYLE MICHI 14 DAY SENSOR) kit Apply sensor to back of arm to check bloodsugars as directed. Change sensor every 2 weeks and rotate arms. 6 Each 3 famotidine (PEPCID) 20 mg tablet Take 1 tablet by mouth twice daily. 180 tablet 3 FLUoxetine (PROZAC) 20 mg capsule Take 1 capsule by mouth once daily. In the morning, for depression 90 capsule 1 atorvastatin (LIPITOR) 40 mg tablet Take 1 tablet by mouth once daily. 90 tablet 3 cyanocobalamin (VITAMIN B-12) 1,000 mcg tab Take 2 tablets by mouth once daily. 180 tablet 1 aspirin, enteric coated (ASPIRIN, ENTERIC COATED) 81 mg EC tablet Take 1 tablet by mouth once daily. 90 tablet 3 flash glucose scanning reader ([employer] MICHI 14 DAY READER) Use to test blood sugar as directed. 1 Each 0 mupirocin (BACTROBAN) 2 % ointment Apply to affected area every 12 hours as needed (rash, skin lesions). 66 g 2 gabapentin (NEURONTIN) 100 mg capsule Take 1-2 capsules by mouth daily at bedtime for 30 days. For foot pain 60 capsule 5 alcohol swabs (BD SINGLE USE SWABS REGULAR) Use as directed 4 to 5 times daily to check blood sugars and with insulin injections 360 Each 3 lisinopril (ZESTRIL) 10 mg tablet Take 1 tablet by mouth once daily. 90 tablet 3 Oral Medication Containers (SHARPS CONTAINER) [facility] [place] as directed. 1 Each 0 metFORMIN (GLUCOPHAGE) 1,000 mg tablet Take 1 tablet by mouth twice daily. 180 tablet 3 TRULICITY 4.5 mg/0.5 mL pen injector Inject 4.5 mg subcutaneously one time a week. 4 mL 3 diclofenac (VOLTAREN ARTHRITIS PAIN) 1 % topical gel Apply 2 g to affected area four times daily. 100 g 1 glucagon (BAQSIMI) 3 mg/actuation nasal spray Use 1 [place] in the nose as needed for low blood sugar. May repeat after 15 minutes using a new device if there is no response. 1 Each 3 Cholecalciferol, Vitamin D3, 125 mcg (5,000 unit) cap Take 1 capsule by mouth once daily. (Patient not taking: Reported on 11/15/2022) 90 capsule 3 polyethylene glycol 3350 (MIRALAX) 17 gram/dose powder 1 capful daily in the morning 1700 g 3 albuterol HFA (VENTOLIN HFA) 90 mcg/actuation inhaler Inhale 2 Puffs as instructed every 4 hours asneeded. For wheezing/shortness of breath. 18 g 3 blood sugar diagnostic (FREESTYLE PRECISION JEREMIAS STRIPS) test strip Use to test blood sugar up to twice daily as instructed. Dx: insulin-dependent DM 50 Strip 11 No current facility-administered medications for this visit. Pill bottles are not present. Adherence: denies missed doses. Rx coverage: Payor: MULTIPLAN / Plan: MULTIPLAN NETWORK GENERIC / Product Type: PPO / Medications affordable? No PHARMACOTHERAPY PREVENTATIVE MEDS: On JANNIE/ARB: Yes On Statin: Yes On ASA: Yes EXAM: LMP 08/30/2012 Last 3 Encounter BP Readings: Date: BP: 05/27/2023 138/82 04/05/2023 142/92 02/19/2023 124/80 Wt: 90.3 kg (199 lb) BMI: 30.26 kg/(m^2) LABS: Lab Results Component Value Date HBA1C 11.4 05/27/2023 HBA1C 11.4 02/19/2023 HBA1C 10.5 11/08/2022 HBA1C 10.7 11/08/2022 HBA1C 12.2 07/24/2022 HBA1C 11.2 08/14/2021 HBA1C 12.1 05/09/2021 HBA1C 10.3 08/05/2020 Glucose 225 02/19/2023 BUN 11 02/19/2023 Creatinine, Whole Blood (iSTAT) 0.48 02/19/2023 Sodium 139 02/19/2023 Potassium 3.9 02/19/2023 Chloride 103 02/19/2023 CO2 25 02/19/2023 Protein, Total 8.0 02/19/2023 Albumin 4.4 02/19/2023 Calcium 10.1 02/19/2023 Alkaline Phosphatase 93 02/19/2023 Bilirubin, Total 0.8 02/19/2023 AST 15 02/19/2023 ALT 16 02/19/2023 Lab Results Component Value Date CHOL 226 02/19/2023 CHOL 193 07/24/2022 CHOL 205 05/09/2021 LDL 152 02/19/2023 LDL 127 05/09/2021 HDL 48 02/19/2023 HDL 48 07/24/2022 HDL 54 05/09/2021 TG 132 02/19/2023 TG 95 07/24/2022 TG 120 05/09/2021 Albumin/Creat Ratio (mg/g) Date Value 07/24/2022 31 (H) eGFR-All Other Races (.) Date Value 05/09/2021 >60 Estimated Glomerular Filtration Rate (mL/min/1.73m ) Date Value 02/19/2023 110 ASSESSMENT/PLAN: 1. Uncontrolled type 2 diabetes mellitus with hyperglycemia (HCC) - ICD9: 250.02, ICD10: E11.65 - Uncontrolled. A1c not at goal. SMBGs unavailable; however, reported hypoglycemia throughout the day. Will decrease insulin doses to reduce risk of hypoglycemia. Will reassess glycemic control at next visit and adjust doses accordingly. - Decrease Tresiba to 82 units once daily - Decrease Novolog to 16 units + sliding scale with meals - Continue metformin 1000 mg BID and Trulicity 4.5 mg once weekly - Provided $35 insulin copay card again to use with Toujeo Max and Admelog. Will switch to these once out of current supply/able to get from pharmacy. - Statin prescribed - atorvastatin - Blood glucose monitoring on a continuous glucose monitoring schedule - Follow up in 3 weeks, sooner should any other issues arise. Follow Up: Next PCP visit: 08/27/23 Next PharmD visit: 06/27/23 at 3PM Susana Garcia PharmD Primary Care Clinical [employer] Furniture [employer] The majority of the pharmacy visit (> 50%) was spent counseling and/or coordinating care for thepatient. interaction: face to face time was 30 minutes. documented in this encounterG[facility]11-16-2023 Instructions* Patient Instructions* Susana Garcia RPh - 06/06/2023 3:00 PM EST Images from the original note were not included. Next appointment: June 27 at 3PM With your next sensor, set up with phone birdie Create an account in [employer] birdie and sync with sensor Adjust your insulin doses to the following: Tresiba 82 units once daily Novolog 16 units plus sliding scale with meals 200-230 = add 2 units 230-260 = add 4 units 260-300 = add 6 units >300 = add 8 units documented in this encounterGlen[facility] Hospital11-09-2023 Miscellaneous Notes* Telephone Encounter - Corrine Louise APRN.CARLITOS - 05/30/2023 7:22 AM EST Noted. Thank you. Corrine Louise APRN.PROFESSOR OF PHYSICS * Telephone Encounter - Deay Gross LPN - 05/29/2023 12:00 PM EST Sidraraj with [employer] called back and pt will need to activate the care before able to use it. Pharmacyasked our office to call pt and let her know. I spoke with pt and she will try to activate. Pt thought she already activated but will try again. Pt reports the 1st insulin was covered but having problems getting the 2nd one covered. Again she will try call the number on the care. Deya Gross LPN * Telephone Encounter - Susana Garcia RPh - 05/29/2023 11:25 AM EST Insulin Savings Program card that was provided at last PharmD visit should include Toujeo Max in addition to Admelog insulin for $35/month. Called and spoke with [facility] to provide coupon information. States coupon is not activated but will call company to inquire if patient needs to activate card prior to use. Called patient to discuss; unable to reach. Will attempt outreach again later and will check back with pharmacy later today. Susana Garcia PharmD Primary Care Clinical [employer] Furniture As[employer]er * Telephone Encounter - Kiah Pina RN - 05/29/2023 10:51 AM EST Pt calling in as she just saw Dr. Zheng on 05/[address] Zheng prescribed a new med Toujeo. Ptstates she went to pick it up at the pharmacy and they wanted $500 for it which she cannot afford. Per Kiel Garica pharmacy visit note of 05/09, pt has gotten new insurance with no prescription coverage just a prescription discount card. Pt states the discount card doesn't work on the [place] le[place]. States the pharmacist Leonela had helped her out with her other insulin and it only costs her $35.Wondering if there is somehow to get this covered or discounted to an affordable level for her. If not, she won't be able to get it. Will send note to both Dr. Zheng and Bren Garcia pharmacist for recommendations. documented in this encounterGlen[facility] Hospital11-07-2023 Miscellaneous Notes* Telephone Encounter - Shanelle Mckee MA - 05/28/2023 10:31 AM EST Pt notified and verbalized understanding. Shanelle Mckee MA * Telephone Encounter - Jese Zheng DO - 05/28/2023 8:44 AM EST Please inform patient that her leg US shows no signs of a blood clot /Jese Zheng DO documented in this encounterGlenbeigh Hospital11-06-2023 History of Present illness Narrative* Jese Zheng DO - 05/27/2023 1:42 PM EST Patient presents with: F/U 3 Month Immunizations: Flu vaccination HPI: Lina Isaac is a 57 year old female who presents to the office today for review of health conditions. Concerns today: Has had a lot of phlegm and mucous. Has tried the mucinex and tessalon perles without relief. Feelslike symptoms have been continuing since she was diagnosed with covid 19 infection about 1-2 monthsago. No fevers or chills or hemoptysis. Depression, feels that the prozac 20 mg a day has been a great dose to control her symptoms. No SI or HI. No concerns with need for adjustment of medication. Ms. Isaac has past history of diabetes. Since our last visit she denies excessive thirst or increased frequency of urination, chest pain or dyspnea , new or unusual visual symptoms, and low sugar/hypoglycemic reactions. Depression- yes, well treated. Follows a diabetic diet some of the time. She is compliant with medication(s) and is tolerating med(s) without any side effects. She reports checking her glucose on a once a day schedule with sugars in the <200 range. Patient's last HgA1C was Hemoglobin A1C (%) Date Value 02/19/2023 11.4 11/08/2022 10.5 08/14/2021 11.2 05/09/2021 12.1 Hemoglobin A1C (POCT) (%) Date Value 11/08/2022 10.7 ) Last Ophthalmology exam was within the past 12 months Ms. Isaac reports history of hyperlipidemia. Current therapy includes atorvastatin (Lipitor) 40 mg.Denies side effects of muscle weakness or achiness. Her most recent lipid panels are reviewed. Cholesterol, Total (mg/dL) Date Value 07/24/2022 193 05/09/2021 205 Total Cholesterol, Nonfasting (mg/dL) Date Value 02/19/2023 226 HDL Cholesterol (mg/dL) Date Value 07/24/2022 48 05/09/2021 54 HDL Cholesterol, Nonfasting (mg/dL) Date Value 02/19/2023 48 LDL Cholesterol (mg/dL) Date Value 05/09/2021 127 LDL Cholesterol, Nonfasting (mg/dL) Date Value 02/19/2023 152 Triglyceride (mg/dL) Date Value 07/24/2022 95 05/09/2021 120 Triglycerides, Nonfasting (mg/dL) Date Value 02/19/2023 132 Ms. Isaac indicates a history of hypertension and states that she is feeling well and denies any symptoms referable to elevated blood pressure. Specifically denies headache, chest pain, palpitations,dyspnea, and peripheral edema. Patient denies any side effects of her medication(s) and is compliant with their regimen. Last 3 Encounter BP Readings: Date: BP: 05/27/2023 138/82 04/05/2023 142/92 02/19/2023 124/80 She watches her diet for sodium, low fat and low cholesterol some of the time. She does not check BP's generally. Lina gets minimal exercise. PAST MEDICAL HISTORY Diagnosis Date Asthma Bowel perforation 11/05/2012 C. difficile colitis 04/2016 Closed nondisplaced fracture of proximal phalanx of lesser toe of left foot with routine healing 10/07/2019 COVID-19 03/30/2021 Diabetes mellitus type 2 in obese (HCC) 10/2013 A1C 6.8% Dyslipidemia 01/02/2019 Essential hypertension 08/11/2015 GERD (gastroesophageal reflux disease) Incisional hernia 06/26/2013 Injury to rectosigmoid colon 10/17/2012 Low HDL (under 40) 10/2013 Nephrolithiasis Osteoarthrosis, unspecified whether generalized or localized, other specified sites Osteoarthritis Bilateral knees Spasm of muscle Tobacco use disorder quit 2012 Unspecified hereditary and idiopathic peripheral neuropathy 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 Ramirez COLONOSCOPY 09/17/2022 repeat in 10 years EGD 09/17/2022 HERNIA REPAIR HX 06/22/2013 HYSTERECTOMY HX 2011 fistula with intestine HYSTEROSCOPY, DIAGNOSTIC (SEPARATE Hysteroscopy/Novasure LAP HYSTERECTOMY FOR UTERUS 250G OR LESS 10/09/2012 with vaginal sling, LSO, right salpingectomy LAPS ABD PRTM&OMENTUM DX W/WO SPEC BR/WA SPX Laparoscopy LAPS REPAIR HERNIA EXCEPT INCAL/INGUN REDUCIBLE 05/2017 LIG/TRNSXJ FLP TUBE ABDL/VAG APPR UNI/BI 2001 Tubal ligation PAST SURGICAL HISTORY OF 01/30/2005 Left shoulder arthroscopy and debridement PAST SURGICAL HISTORY OF 02/2004 3rd toe left foot PAST SURGICAL HISTORY OF 03/14/2010 right total knee replacement PAST SURGICAL HISTORY OF 03/14/2009 left total knee replacement PAST SURGICAL HISTORY OF 01/23/2013 Ileostomy closure. PAST SURGICAL HISTORY OF Left 01/06/2016 left ring trigger release RPR 1ST INCAL/VNT HERNIA INCARCERATED 06/22/2013 at ileostomy site - 11x[address] \mesh RPR RECRT INCAL/VNT HERNIA INCARCERATED 07/23/2014 at midline' RPR RECRT INCAL/VNT HERNIA INCARCERATED 10/11/2014 - recurrent small bowel resection, enterotomy Social History Tobacco Use Smoking status: Former Packs/day: 0.50 Years: 24.00 Additional pack years: 0.00 Total pack years: 12.00 Types: Cigarettes Quit date: 05/13/2013 Years since quittin.0 Smokeless tobacco: Never Vaping Use Vaping Use: Never used Substance Use Topics Alcohol use: No Drug use: No FAMILY HISTORY Problem Relation Age of Onset Hypertension Mother Diabetes Mother Cancer Maternal Uncle throat cancer Hypertension Sister Diabetes Sister other (hyperlipidemia) Sister Allergies: ALLERGIES Allergen Reactions Lac Hydrin [Other] Dried her feet Omnicef [Cefdinir] Itching Vaginitis severe Proventil [Albutero* Vomiting Can not tolerate generic albuterol 08/22/12 - MEM. Tramadol Hives Current Meds: insulin glargine U-300 conc (TOUJEO MAX U-300 SOLOSTAR) 300 unit/mL (3 mL) inpn Inject 72 Units subcutaneously every morning. Type 2 diabetes uncontrolled, insulin dependent insulin lispro (ADMELOG SOLOSTAR U-100 INSULIN) 100 unit/mL Inject 10 Units subcutaneously three times a day before meals. Plus sliding scale Insulin [place], Disposable, (UNIFINE PENTIPS) 31 gauge x 3/16 Use as directed 4 times daily with insulin Calcium Citrate-Vitamin D3 (CITRACAL+D) 315 mg-6.25 mcg (250 unit) tab Take 1 tablet by mouth once daily. ibuprofen (MOTRIN) 800 mg tablet TAKE 1 TABLET BY MOUTH EVERY 8 HOURS NEEDED FOR PAIN WITH FOOD flash glucose sensor (FREESTYLE MICHI 14 DAY SENSOR) kit Apply sensor to back of arm to check bloodsugars as directed. Change sensor every 2 weeks and rotate arms. famotidine (PEPCID) 20 mg tablet Take 1 tablet by mouth twice daily. FLUoxetine (PROZAC) 20 mg capsule Take 1 capsule by mouth once daily. In the morning, for depression atorvastatin (LIPITOR) 40 mg tablet Take 1 tablet by mouth once daily. cyanocobalamin (VITAMIN B-12) 1,000 mcg tab Take 2 tablets by mouth once daily. aspirin, enteric coated (ASPIRIN, ENTERIC COATED) 81 mg EC tablet Take 1 tablet by mouth once daily. flash glucose scanning reader (FREESTYLE MICHI 14 DAY READER) Use to test blood sugar as directed. mupirocin (BACTROBAN) 2 % ointment Apply to affected area every 12 hours as needed (rash, skin lesions). gabapentin (NEURONTIN) 100 mg capsule Take 1-2 capsules by mouth daily at bedtime for 30 days. For foot pain alcohol swabs (BD SINGLE USE SWABS REGULAR) Use as directed 4 to 5 times daily to check blood sugars and with insulin injections lisinopril (ZESTRIL) 10 mg tablet Take 1 tablet by mouth once daily. Oral Medication Containers (SHARPS CONTAINER) [facility] [place] to [place]ps as directed. metFORMIN (GLUCOPHAGE) 1,000 mg tablet Take 1 tablet by mouth twice daily. TRULICITY 4.5 mg/0.5 mL pen injector Inject 4.5 mg subcutaneously one time a week. diclofenac (VOLTAREN ARTHRITIS PAIN) 1 % topical gel Apply 2 g to affected area four times daily. glucagon (BAQSIMI) 3 mg/actuation nasal spray Use 1 [place] in the nose as needed for low blood sugar. May repeat after 15 minutes using a new device if there is no response. Cholecalciferol, Vitamin D3, 125 mcg (5,000 unit) cap Take 1 capsule by mouth once daily. (Patient not taking: Reported on 11/15/2022) polyethylene glycol 3350 (MIRALAX) 17 gram/dose powder 1 capful daily in the morning albuterol HFA (VENTOLIN HFA) 90 mcg/actuation inhaler Inhale 2 Puffs as instructed every 4 hours asneeded. For wheezing/shortness of breath. blood sugar diagnostic (FREESTYLE PRECISION JEREMIAS STRIPS) test strip Use to test blood sugar up to twice daily as instructed. Dx: insulin-dependent DM Review of Systems: The remainder of the review of systems is negative. PE: 05/27/23 1304 BP: 138/82 Pulse: 64 Resp: 20 Temp: (!) 35.8 C (96.5 F) TempSrc: Right Tympanic Weight: 90.3 kg (199 lb) Gen: A&O, NAD, non-toxic appearing, Pleasant, cooperative HEENT: NT/AC, PERRLA, EOMs intact b/l, nares clear and patent b/l, pharynx without erythema, exudate or lesions. Uvula midline. EACs without erythema or debris. TMs pearly julien with intact landmarks b/l. Neck: supple, No cervical LAD, no thyromegaly, no carotid bruits CV: RRR, normal S1 and S2, no murmurs, no gallops, no rubs, Pulses 2+ and symmetric in UE and LE b/l Lungs: normal respiratory effort, coughing, bronchial breath sounds at bases Abd: soft, NT, ND, +BS, no hepatosplenomegaly MS: FROM all 4 extremities Neuro: CN II-XII intact b/l, strength 5/5 b/l UE and LE, DTRs 2/4 UE and LE, sensation intact. Skin: warm, dry, intact, No rashes or lesions on exposed skin. Right calf swelling and mild warmth 36.5 cm left mid calf circumference 40 cm right mid calf circumference Foot exam: Monofilament wnl on right and left feet. ASSESSMENT/PLAN: 1. Type 2 diabetes mellitus with peripheral neuropathy (HCC) - ICD9: 250.60, 357.2, ICD10: E11.42 (primary diagnosis) - Uncontrolled - Worsening control - Continue current medications - Blood glucose monitoring on a three times daily schedule - Counseled on healthy diet and regular exercise - Discussed need for and benefit of weight loss. BMI 30.26 kg/(m^2) - follow up with Pharmacist for adjustment of medication - TOUJEO MAX U-300 SOLOSTAR 300 UNIT/ML (3 ML) SUBCUTANEOUS INSULIN PEN - HEMOGLOBIN A1C (POC) - URINALYSIS, WITH MICROSCOPIC 2. Need for influenza vaccination - ICD9: V04.81, ICD10: Z23 - INFLUENZA VACCINE, AGE 6 MO - 64 YR, QUADRIVALENT (AFLURIA, FLULAVAL, FLUZONE) 3. Need for COVID-19 vaccine - ICD9: V04.89, ICD10: Z23 - [employer] COVID-19 VACCINE (2022- SEASON) AGE 12+ YR 4. Right leg swelling - ICD9: 729.81, ICD10: M79.89 Need for screening for DVT. Orders placed. - US LEG VEIN DVT UNL VAS LAB 5. Right calf pain - ICD9: 729.5, ICD10: M79.661 Need for screening for DVT. Orders placed. - US LEG VEIN DVT UNL VAS LAB 6. Acute bronchitis, unspecified organism - ICD9: 466.0, ICD10: J20.9 rx as filled as below, supportive care. - AZITHROMYCIN 250 MG TABLET - FLUCONAZOLE 150 MG TABLET 7. Other polyneuropathy - ICD9: 357.89, ICD10: G62.89 - stable 8. Current moderate episode of major depressive disorder without prior episode (HCC) - ICD9: 296.22, ICD10: F32.1 Stable, continue prozac. 9. Fatigue, unspecified type - ICD9: 780.79, ICD10: R53.83 stable 10. Dyslipidemia - ICD9: 272.4, ICD10: E78.5 - Control undetermined, due for labs - Continue current medications - Counseled on healthy diet and regular exercise 11. Hepatic steatosis - ICD9: 571.8, ICD10: K76.0 stable 12. Obesity, Class I, BMI 30-34.9 - ICD9: 278.00, ICD10: E66.9 - Lengthy discussion in office today regarding diet and exercise. Discussed use of small plate to eat meals from, drink 1 glass of water 10-15 minutes prior to eating meal, drink 8 glasses of water daily, eat fresh fruit and vegetable during meal first then lean protein such as grilled/baked chicken breast or fish, limit carbohydrate intake (less pasta, breads, rice and snack foods) as well as limiting sugars (desserts etc). Important to count / track your calories and exercise as well. Jese Zheng DO To ER if develops chest pain, shortness of breath, or severe worsening of symptoms. Discussed risks, benefits, alternatives, and potential side effects of medications. Patient expressed understanding and agreed with the plan. Jese Zheng DO [address] [place] [address] documented in this encounterG[facility]2023 Miscellaneous Notes* Telephone Encounter - Maye Peña MSW - 05/09/2023 3:21 PM EDT Sw spoke with patient regarding prescription cost concerns. Patient reports that she used to be on [employer]. Is now no longer eligible for [employer] and had to choose an Affordable Care Plan. Patient reports that she had spoken with a rep that had looked at Affordable Care Plan option for patient. Patient reports that plan she is now on does not have prescription coverage, she was provided a discount card. Patient notes that discount card has not been able to offer any discounts for the medication she is on. Sw and patient did discuss the discount card that pharmacist provided her and she notes that she can pay for the $35 for her monthly insulin cost. Sw and patient discussed patient reaching out to [facility] to see about any assistance she can provide patient with in regards to marketplace prescription insurance plan. Patient reports that she will reach out to [facility] and see if she can offer patient any guidance on marketplace prescription options. Patient has Sw direct number for her to let this Sw know what she finds out from [facility]. documented in this encounterGlenbeigh Hospital09-16-2023 Miscellaneous Notes* Telephone Encounter - Mitchel Carney MD - 04/06/2023 8:49 AM EDT COVID test was positive. She has a significant headache today. Stay home for 5 days from symptom onset (). After 5 days, you can leave your house if you have not had a fever in the last 24 hours. Continue to wear a mask around others for 5 additional days. She may stop augmentin. Paxlovid sent to [facility]. Last lipitor dose was yesterday morning. She will hold lipitor while taking paxlovid plus 3 more days. Component Latest Ref Rng & Units 02/19/2023 eGFR >=60 mL/min/1.73m 110 documented in this encounterG[facility] History of Present illness Narrative* Mitchel Carney MD - 04/05/2023 8:16 AM EDT Patient presents with: Cough: 7-10 days, congestion, chills x 2 days HPI: Head congestion for 1 1/2 weeks. Worsened and feeling sick for 2 days. Positive symptoms: some dry Cough, Chills, Earache, Sinus pressure, Nasal Congestion, Rhinorrhea, Post nasal drainage, Malaise, Negative symptoms: sore throat OTC: none. MEDICATIONS: Current Outpatient Medications Medication Sig flash glucose sensor (FREESTYLE MICHI 14 DAY SENSOR) kit Apply sensor to back of arm to check bloodsugars as directed. Change sensor every 2 weeks and rotate arms. famotidine (PEPCID) 20 mg tablet Take 1 tablet by mouth twice daily. FLUoxetine (PROZAC) 20 mg capsule Take 1 capsule by mouth once daily. In the morning, for depression atorvastatin (LIPITOR) 40 mg tablet Take 1 tablet by mouth once daily. cyanocobalamin (VITAMIN B-12) 1,000 mcg tab Take 2 tablets by mouth once daily. aspirin, enteric coated (ASPIRIN, ENTERIC COATED) 81 mg EC tablet Take 1 tablet by mouth once daily. flash glucose scanning reader (FREESTYLE MICHI 14 DAY READER) Use to test blood sugar as directed. ibuprofen (MOTRIN) 800 mg tablet Take 1 tablet by mouth every 8 hours as needed for Pain. Take withfood. mupirocin (BACTROBAN) 2 % ointment Apply to affected area every 12 hours as needed (rash, skin lesions). gabapentin (NEURONTIN) 100 mg capsule Take 1-2 capsules by mouth daily at bedtime for 30 days. For foot pain Calcium Citrate-Vitamin D3 (CITRACAL+D) 315 mg-6.25 mcg (250 unit) tab Take 1 tablet by mouth once daily. insulin aspart U-100 (NOVOLOG) 100 unit/mL (3 mL) Inject 20 Units subcutaneously three times daily before meals. Plus sliding scale. TDD 84 units/day. alcohol swabs (BD SINGLE USE SWABS REGULAR) Use as directed 4 to 5 times daily to check blood sugars and with insulin injections insulin degludec (TRESIBA) 200 unit/mL (3 mL) injection Inject 90 Units subcutaneously every morning. lisinopril (ZESTRIL) 10 mg tablet Take 1 tablet by mouth once daily. Oral Medication Containers (SHARPS CONTAINER[place] [facility] [place] as directed. metFORMIN (GLUCOPHAGE) 1,000 mg tablet Take 1 tablet by mouth twice daily. TRULICITY 4.5 mg/0.5 mL pen injector Inject 4.5 mg subcutaneously one time a week. diclofenac (VOLTAREN ARTHRITIS PAIN) 1 % topical gel Apply 2 g to affected area four times daily. glucagon (BAQSIMI) 3 mg/actuation nasal spray Use 1 [place] in the nose as needed for low blood sugar. May repeat after 15 minutes using a new device if there is no response. polyethylene glycol 3350 (MIRALAX) 17 gram/dose powder 1 capful daily in the morning albuterol HFA (VENTOLIN HFA) 90 mcg/actuation inhaler Inhale 2 Puffs as instructed every 4 hours asneeded. For wheezing/shortness of breath. blood sugar diagnostic (FREESTYLE PRECISION JEREMIAS STRIPS) test strip Use to test blood sugar up to twice daily as instructed. Dx: insulin-dependent DM Insulin [place], Disposable, (UNIFINE PENTIPS) 31 gauge x 3/16 Use as directed 4 times daily with insulin Cholecalciferol, Vitamin D3, 125 mcg (5,000 unit) cap Take 1 capsule by mouth once daily. (Patient not taking: Reported on 11/15/2022) No current facility-administered medications for this visit. ALLERGIES: ALLERGIES Allergen Reactions Lac Hydrin [Other] Dried her feet Omnicef [Cefdinir] Itching Vaginitis severe Proventil [Albutero* Vomiting Can not tolerate generic albuterol 08/22/12 - MEM. Tramadol Hives VITALS: BP 142/92 Pulse 94 Temp 37.1 C (98.7 F) Resp 18 Wt 93 kg (205 lb) LMP 08/30/2012 SpO2 99% BMI 31.17 kg/m PHYSICAL EXAM: GEN: pleasant, mildly ill appearing HEENT: PERRL, EOMI, conjunctiva clear Ears: canals clear. TMs without erythema, bulge, or effusion Sinuses: tender frontal sinus, tender maxillary sinuses Throat: moist mucous membranes, no erythema, no exudate Neck: supple, no thyromegaly, no lymphadenopathy HEART: regular rate and rhythm, no murmurs LUNGS: clear to auscultation, no wheezes or crackles, no increased WOB ASSESSMENT/PLAN: 1. Acute non-recurrent sinusitis, unspecified location - ICD9: 461.9, ICD10: J01.90 Start - AMOXICILLIN 875 MG-POTASSIUM CLAVULANATE 125 MG TABLET Requests - FLUCONAZOLE 150 MG TABLET with antibiotic for expected vaginal yeast overgrowth. - COVID NAAT, UPPER RESPIRATORY, ROUTINE Mitchel Carney MD documented in this encounterGlen[facility]09-12-2023 Miscellaneous Notes* Telephone Encounter - Faye De Leon Ma - 04/02/2023 10:31 AM EDT Last office visit: 02/19/23 F/u scheduled: 05/27/23 Faye De Leon Ma documented in this encounterGlen[facility] Hospital09-12-2023 Miscellaneous Notes* Telephone Encounter - Faye De Leon Ma - 04/02/2023 10:30 AM EDT Last office visit: 02/19/23 F/u scheduled: 05/27/23 Faye De Leon Ma documented in this encounterGlen[facility] Hospital09-12-2023 Miscellaneous Notes* Telephone Encounter - Faye De Leon Ma - 04/02/2023 10:28 AM EDT Last office visit: 02/19/23 F/u scheduled: 05/27/23 Faye De Leon Ma documented in this encounterGlen[facility] Hospital09-05-2023 Miscellaneous Notes* Telephone Encounter - Oz Noyola LPN - 03/26/2023 10:38 AM EDT Patient phones requesting refills as follows: Requested Prescriptions Pending Prescriptions Disp Refills aspirin, enteric coated (ASPIRIN, ENTERIC COATED) 81 mg EC tablet 90 tablet 3 Sig: Take 1 tablet by mouth once daily. SHIRA 02/19/23 NOV 05/27/23 Please review and advise. Oz Noyola LPN documented in this encounterGlenbeigh Hospital08-24-2023 Miscellaneous Notes* Telephone Encounter - Scarlett Chisholm Ma - 03/14/2023 11:27 AM EDT Patient was notified and will call to schedule consult with pharmacy Scarlett Chisholm Ma * Telephone Encounter - Jese Zheng DO - 03/14/2023 11:24 AM EDT New referral placed Also please inform patient that her recent CT chest shows IMPRESSION: Groundglass opacities and reticular opacities in the bilateral lungs grossly unchanged. Multiple stable lung nodules. No definite new nodules seen No new changes Jese Zheng DO * Telephone Encounter - Antonette Kurtz LPN - 03/14/2023 10:31 AM EDT Phoned patient and went over results, notes from Dr Zheng with understanding. Patient said she had been seeing pharmacist but got off track with their maternity leave. Pending consult needs completed. * Telephone Encounter - Jese Zheng DO - 03/14/2023 9:45 AM EDT Please inform patient that her recent labs are showing her a1c remains very high at 11.4%. she needs to be following with the pharmacist to continue to help with medication adjustments or needs opinion by Rehabilitation Services Coordinator. She needs to be consistent with her short acting meal insulin and once a day long acting Tresiba as well Also her vitamin D and vitamin B12 levels are low. Needs to be taking at least 2000 international unit(s) a day of vitamin D3 with a meal daily and vitamin B12 at least 1000 mcg a day. Can take thesetogether in AM Jese Zheng DO documented in this encounterGlenbeigh Hospital08-08-2023 Miscellaneous Notes* Telephone Encounter - Antonette Kurtz LPN - 02/26/2023 4:38 PM EDT Phoned patient and went over results, notes from Dr Zheng with understanding. * Telephone Encounter - Jese Zheng DO - 02/26/2023 4:32 PM EDT Please call patient and let her know that her CXR shows some mild prominence of areas of her lungs,awaiting CT chest results at this time Jese Zheng DO documented in this encounterGlenbeigh Hospital08-08-2023 History of Present illness Narrative* Chichi Mckeon RT(R) - 02/26/2023 8:40 AM EDT Radiology Service Progress Note PATIENT NAME: Lina Isaac DATE OF SERVICE: February 26, 2023 TIME: 8:56 AM PATIENT IDENTITY VERIFICATION COMPLETED USING TWO (2) IDENTIFIERS: Name and Date of confirmedby patient verbally. FALL SCREENING: Has the patient had 2 falls in the last year or 1 fall with injury or currently using an Ambulatory Assistive Device (Walker, Cane, Wheelchair, Crutches, etc.)? No PATIENT GENDER DATA: Female. status: : No status: NO. PATIENT RELEVANT IMPLANT DATA REVIEWED: Yes RADIOLOGY DEPARTMENT: CT; Exam(s) Completed: Chest PERIPHERAL IV DATA: Not applicable SIGNED BY: RT Rodney(R) February 26, 2023 8:56 AM documented in this encounterGlenbeigh Hospital08-07-2023 Miscellaneous Notes* Telephone Encounter - Kiah Aldridge LPN - 02/25/2023 9:13 AM EDT Patient phones requesting refills as follows: Requested Prescriptions Pending Prescriptions Disp Refills ibuprofen (MOTRIN) 800 mg tablet 60 tablet 1 Sig: Take 1 tablet by mouth every 8 hours as needed for Pain. Take with food. SHIRA-02/19/23 Labs-02/19/23May-05/27/23 Please review and advise. Kiah Aldridge LPN documented in this encounterGlenbeigh Hospital08-07-2023 Miscellaneous Notes* Telephone Encounter - Kiah Aldridge LPN - 02/25/2023 9:12 AM EDT Patient phones requesting refills as follows: Requested Prescriptions Pending Prescriptions Disp Refills mupirocin (BACTROBAN) 2 % ointment 66 g 2 Sig: Apply to affected area every 12 hours as needed (rash, skin lesions). [facility]-02/19/23 Labs-02/19/23May-05/27/23 Please review and advise. Kiah Aldridge LPN documented in this encounterGlenbeigh Hospital08-07-2023 Miscellaneous Notes* Telephone Encounter - Kiah Aldridge LPN - 02/25/2023 9:10 AM EDT Patient phones requesting refills as follows: Requested Prescriptions Pending Prescriptions Disp Refills gabapentin (NEURONTIN) 100 mg capsule 60 capsule 5 Sig: Take 1-2 capsules by mouth daily at bedtime for 30 days. For foot pain [facility]-02/19/23 Labs-02/19/23May-05/27/23 Please review and advise. Kiah Aldridge LPN documented in this [facility]08-02-2023 History of Present illness Narrative* Jese Zheng, DO - 02/20/2023 7:56 AM EDT Patient presents with: Follow Up HPI: Lina Isaac is a 57 year old female who presents to the office today for review of health conditions. Concerns today: Depression, admits that she is struggling with her mood recently, no SI or HI. Just feels she is being pulled in a lot of directions, my brother is very sick and in the hospital, my mother needs me to take her to see him all the time and my girls always need my help. Admits to not wanting to get out of bed in the morning and wanting to sleep all day, crying at times as well. Interested in starting on a medication. Hx of tobacco, hx of lung nodules, does have chronic intermittent dyspnea, no chest pressure/pain or palpitations or fevers or chills or cough Ms. Isaac has past history of diabetes. Since our last visit she denies excessive thirst or increased frequency of urination, chest pain, new or unusual visual symptoms, and low sugar/hypoglycemic reactions. Depression- yes, see above. Follows a diabetic diet some of the time. She is compliant with medication(s) and is tolerating med(s) without any side effects. She reports checking her glucose on a once a day schedule with sugars in the <150 range. Patient's last HgA1C was Hemoglobin A1C (%) Date Value 02/19/2023 11.4 11/08/2022 10.5 08/14/2021 11.2 05/09/2021 12.1 Hemoglobin A1C (POCT) (%) Date Value 11/08/2022 10.7 ) Last Ophthalmology exam was within the past 12 months Ms. Isaac reports history of hyperlipidemia. Current therapy includes atorvastatin (Lipitor) 40 mg.Denies side effects of muscle weakness or achiness. Her most recent lipid panels are reviewed. Cholesterol, Total (mg/dL) Date Value 07/24/2022 193 05/09/2021 205 HDL Cholesterol (mg/dL) Date Value 07/24/2022 48 05/09/2021 54 LDL Cholesterol (mg/dL) Date Value 07/24/2022 126 05/09/2021 127 Triglyceride (mg/dL) Date Value 07/24/2022 95 05/09/2021 120 Ms. Isaac indicates a history of hypertension and states that she is feeling well and denies any symptoms referable to elevated blood pressure. Specifically denies headache, chest pain, palpitations,and peripheral edema. Patient denies any side effects of her medication(s) and is compliant with their regimen. Last 3 Encounter BP Readings: Date: BP: 02/19/2023 124/80 12/27/2022 138/81 11/15/2022 121/72 She watches her diet for sodium, low fat and low cholesterol some of the time. She does not check BP's generally. Lina gets minimal exercise. PAST MEDICAL HISTORY Diagnosis Date Asthma Bowel perforation 11/05/2012 C. difficile colitis 04/2016 Closed nondisplaced fracture of proximal phalanx of lesser toe of left foot with routine healing 10/07/2019 COVID-19 03/30/2021 Diabetes mellitus type 2 in obese (HCC) 10/2013 A1C 6.8% Dyslipidemia 01/02/2019 Essential hypertension 08/11/2015 GERD (gastroesophageal reflux disease) Incisional hernia 06/26/2013 Injury to rectosigmoid colon 10/17/2012 Low HDL (under 40) 10/2013 Nephrolithiasis Osteoarthrosis, unspecified whether generalized or localized, other specified sites Osteoarthritis Bilateral knees Spasm of muscle Tobacco use disorder quit 2012 Unspecified hereditary and idiopathic peripheral neuropathy 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 Ramirez COLONOSCOPY 09/17/2022 repeat in 10 years EGD 09/17/2022 HERNIA REPAIR HX 06/22/2013 HYSTERECTOMY HX 2011 fistula with intestine HYSTEROSCOPY, DIAGNOSTIC (SEPARATE Hysteroscopy/Novasure LAP HYSTERECTOMY FOR UTERUS 250G OR LESS 10/09/2012 with vaginal sling, LSO, right salpingectomy LAPS ABD PRTM&OMENTUM DX W/WO SPEC BR/WA SPX Laparoscopy LAPS REPAIR HERNIA EXCEPT INCAL/INGUN REDUCIBLE 05/2017 LIG/TRNSXJ FLP TUBE ABDL/VAG APPR UNI/BI 2001 Tubal ligation PAST SURGICAL HISTORY OF 01/30/2005 Left shoulder arthroscopy and debridement PAST SURGICAL HISTORY OF 02/2004 3rd toe left foot PAST SURGICAL HISTORY OF 03/14/2010 right total knee replacement PAST SURGICAL HISTORY OF 03/14/2009 left total knee replacement PAST SURGICAL HISTORY OF 01/23/2013 Ileostomy closure. PAST SURGICAL HISTORY OF Left 01/06/2016 left ring trigger release RPR 1ST INCAL/VNT HERNIA INCARCERATED 06/22/2013 at ileostomy site - 11x[address] \mesh RPR RECRT INCAL/VNT HERNIA INCARCERATED 07/23/2014 at midline' RPR RECRT INCAL/VNT HERNIA INCARCERATED 10/11/2014 - recurrent small bowel resection, enterotomy Social History Tobacco Use Smoking status: Former Packs/day: 0.50 Years: 24.00 Total pack years: 12.00 Types: Cigarettes Quit date: 05/13/2013 Years since quittin.7 Smokeless tobacco: Never Vaping Use Vaping Use: Never used Substance Use Topics Alcohol use: No Drug use: No FAMILY HISTORY Problem Relation Age of Onset Hypertension Mother Diabetes Mother Cancer Maternal Uncle throat cancer Hypertension Sister Diabetes Sister other (hyperlipidemia) Sister Allergies: ALLERGIES Allergen Reactions Lac Hydrin [Other] Dried her feet Omnicef [Cefdinir] Itching Vaginitis severe Proventil [Albutero* Vomiting Can not tolerate generic albuterol 08/22/12 - MEM. Tramadol Hives Current Meds: FLUoxetine (PROZAC) 20 mg capsule Take 1 capsule by mouth once daily. In the morning, for depression Calcium Citrate-Vitamin D3 (CITRACAL+D) 315 mg-6.25 mcg (250 unit) tab Take 1 tablet by mouth once daily. insulin aspart U-100 (NOVOLOG) 100 unit/mL (3 mL) Inject 20 Units subcutaneously three times daily before meals. Plus sliding scale. TDD 84 units/day. ibuprofen (MOTRIN) 800 mg tablet Take 1 tablet by mouth every 8 hours as needed for Pain. Take withfood. alcohol swabs (BD SINGLE USE SWABS REGULAR) Use as directed 4 to 5 times daily to check blood sugars and with insulin injections insulin degludec (TRESIBA) 200 unit/mL (3 mL) injection Inject 90 Units subcutaneously every morning. mupirocin (BACTROBAN) 2 % ointment Apply to affected area every 12 hours as needed (rash, skin lesions). lisinopril (ZESTRIL) 10 mg tablet Take 1 tablet by mouth once daily. Oral Medication Containers (SHARPS CONTAINER) [facility] [place] as directed. metFORMIN (GLUCOPHAGE) 1,000 mg tablet Take 1 tablet by mouth twice daily. gabapentin (NEURONTIN) 100 mg capsule Take 1-2 capsules by mouth daily at bedtime for 30 days. For foot pain TRULICITY 4.5 mg/0.5 mL pen injector Inject 4.5 mg subcutaneously one time a week. diclofenac (VOLTAREN ARTHRITIS PAIN) 1 % topical gel Apply 2 g to affected area four times daily. glucagon (BAQSIMI) 3 mg/actuation nasal spray Use 1 [place] in the nose as needed for low blood sugar. May repeat after 15 minutes using a new device if there is no response. Cholecalciferol, Vitamin D3, 125 mcg (5,000 unit) cap Take 1 capsule by mouth once daily. (Patient not taking: Reported on 11/15/2022) cyanocobalamin (VITAMIN B-12) 1,000 mcg tab Take 2 tablets by mouth once daily. famotidine (PEPCID) 20 mg tablet Take 1 tablet by mouth twice daily. atorvastatin (LIPITOR) 40 mg tablet Take 1 tablet by mouth once daily. flash glucose sensor (FREESTYLE MICHI 14 DAY SENSOR) kit Apply sensor to back of arm to check bloodsugars as directed. Change sensor every 2 weeks and rotate arms. aspirin, enteric coated (ASPIRIN, ENTERIC COATED) 81 mg EC tablet Take 1 tablet by mouth once daily. polyethylene glycol 3350 (MIRALAX) 17 gram/dose powder 1 capful daily in the morning albuterol HFA (VENTOLIN HFA) 90 mcg/actuation inhaler Inhale 2 Puffs as instructed every 4 hours asneeded. For wheezing/shortness of breath. blood sugar diagnostic (FREESTYLE PRECISION JEREMIAS STRIPS) test strip Use to test blood sugar up to twice daily as instructed. Dx: insulin-dependent DM Insulin [place], Disposable, (UNIFINE PENTIPS) 31 gauge x 3/16 Use as directed 4 times daily with insulin flash glucose scanning reader (FREESTYLE MICHI 14 DAY READER) [facility] [place] to test blood sugar as directed. Review of Systems: The remainder of the review of systems is negative. PE: 02/19/23 1237 BP: 124/80 Pulse: 72 Resp: 20 Temp: 36.3 C (97.4 F) TempSrc: Left Tympanic Weight: 89.8 kg (198 lb) Gen: A&O, NAD, non-toxic appearing, sullen appearing, disheveled appearing, tearful in office, cooperative HEENT: NT/AC, PERRLA, EOMs intact b/l, nares clear and patent b/l, pharynx without erythema, exudate or lesions. Uvula midline. MMM, wearing glasses, Neck: supple, No cervical LAD, no thyromegaly, no carotid bruits CV: RRR, normal S1 and S2, no murmurs, no gallops, no rubs, Pulses 2+ and symmetric in UE and LE b/l Lungs: normal respiratory effort, CTA b/l, no wheezing or rhonchi or rales Abd: soft, obese, NT, ND, +BS, no hepatosplenomegaly MS: FROM all 4 extremities Neuro: CN II-XII intact b/l Skin: warm, dry, intact, No rashes or lesions on exposed skin. Foot exam: Monofilament wnl on right and left feet. No edema, normal pulses ASSESSMENT/PLAN: 1. Current moderate episode of major depressive disorder without prior episode (HCC) - ICD9: 296.22, ICD10: F32.1 (primary diagnosis) Start on Prozac 20 mg a day, titrate up medication as needed, no SI orHI. Needs to consider starting therapy/counseling as well. 2. Type 2 diabetes mellitus with peripheral neuropathy (HCC) - ICD9: 250.60, 357.2, ICD10: E11.42 - Control undetermined, due for labs - Continue current medications - Blood glucose monitoring on 3 times a daily schedule - Counseled on healthy diet and regular exercise - HGB A1C - TSH BLD - T4 FREE/FREE THYROX - VITAMIN D 25 HYDROXY 3. Fatigue, unspecified type - ICD9: 780.79, ICD10: R53.83 Recheck labs, likely related to her depression and diabetes. - COMP METABOLIC PANEL - CBC + DIFF - VITAMIN B12 BLOOD - TSH BLD - T4 FREE/FREE THYROX - VITAMIN D 25 HYDROXY 4. Dyslipidemia - ICD9: 272.4, ICD10: E78.5 - Control undetermined, due for labs - Continue current medications - Counseled on healthy diet and regular exercise - LIPID PANEL, NONFASTING 5. SOB (shortness of breath) - ICD9: 786.05, ICD10: R06.[address] chest, hx of pulm nodules - XR CHEST 2V FRONTAL/LAT - CT CHEST WO IVCON 6. Wheezing - ICD9: 786.07, ICD10: R06.2 See above - XR CHEST 2V FRONTAL/LAT - CT CHEST WO IVCON 7. Pulmonary nodule - ICD9: 793.11, ICD10: R91.1 See above - XR CHEST 2V FRONTAL/LAT - CT CHEST WO IVCON 8. Multiple lung nodules - ICD9: 793.19, ICD10: R91.8 See above Jese Zheng DO To ER if develops chest pain, shortness of breath, or severe worsening of symptoms. Discussed risks, benefits, alternatives, and potential side effects of medications. Patient expressed understanding and agreed with the plan. Jese Zheng DO [address] [place] [address] documented in this encounterGlenbeigh Hospital08-01-2023 History of Present illness Narrative* Concepcion Ocampo RT(R) - 02/19/2023 2:00 PM EDT Radiology Service Progress Note PATIENT NAME: Lina Isaac DATE OF SERVICE: February 19, 2023 TIME: 1:49 PM PATIENT IDENTITY VERIFICATION COMPLETED USING TWO (2) IDENTIFIERS: Name and Date of confirmedby patient verbally. FALL SCREENING: Has the patient had 2 falls in the last year or 1 fall with injury or currently using an Ambulatory Assistive Device (Walker, Cane, Wheelchair, Crutches, etc.)? No PATIENT GENDER DATA: Female. status: : No status: NO. PATIENT RELEVANT IMPLANT DATA REVIEWED: Yes RADIOLOGY DEPARTMENT: General X-ray: Exam(s) Completed: Chest X-Ray PERIPHERAL IV DATA: Not applicable SIGNED BY: RT Nando(R) February 19, 2023 1:49 PM documented in this encounterGlenbeigh Hospital07-14-2023 Miscellaneous Notes* Telephone Encounter - Gopal Flaherty APRN.CNP - 02/01/2023 2:42 PM EDT The following approved medication requests have been transmitted electronically. Requested Prescriptions Signed Prescriptions Disp Refills Calcium Citrate-Vitamin D3 (CITRACAL+D) 315 mg-6.25 mcg (250 unit) tab 30 tablet 3 Sig: Take 1 tablet by mouth once daily. Authorizing Provider: JESE ZHENG Ordering User: GOPAL FLAHERTY insulin aspart U-100 (NOVOLOG) 100 unit/mL (3 mL) 15 mL 2 Sig: Inject 20 Units subcutaneously three times daily before meals. Plus sliding scale. TDD 84 units/day. Authorizing Provider: JESE ZHENG Ordering User: GOPAL FLAHERTY APRN.PROFESSOR OF PHYSICS * Telephone Encounter - Pippa De La Rosa LPN - 02/01/2023 8:07 AM EDT Shira--11/08/22 Nov--01/20/23 Last refill--novolog--10/30/22 15 ml with 2 refills Calcium--08/30/22 30 with 3 refills Last labs--11/08/22 documented in this encounterGlenbeigh Hospital07-14-2023 Miscellaneous Notes* Telephone Encounter - Scarlett Chisholm Ma - 02/01/2023 11:37 AM EDT Received fax from [employer] stating sensor are approved till 04/21/23 Faxed infor to pharmacy Scarlett Chisholm Ma * Telephone Encounter - Scarlett Chisholm Ma - 01/31/2023 9:01 AM EDT Fax received from pharmacy Prior Authorization has been completed online at [email or web address] for michi, will await response. [email or web address] Please keep encounter open until final decision has been received and documented from insurance company. Scarlett Chisholm MA documented in this encounterGlenbeigh Hospital06-15-2023 Miscellaneous Notes* Telephone Encounter - Luciano Gomez MD - 01/03/2023 3:58 PM EDT OK to refill as ordered Luciano Gomez MD documented in this encounterGlenbeigh Hospital06-15-2023 History of Present illness Narrative* KAROLINA Flores - 01/03/2023 10:19 AM EDT Behavioral Health Social Work Progress Note Patient identified for [facility] from: PCP Reason for referral: Resources Behavioral Health Resources: Psychology - talk therapy [facility] encounter type: MyChart Message Attempts to Outreach: 3 attempts Referral made: Psychology - Internal, Psychology - External Psychology-Internal referral type: Therapy Psychology-External referral type: Therapy Reason for external referral: Wait times at [facility] too long, Patient choice Final Disposition: Resources given Patient Discharged?: Yes therapist sent patient fypiot follow up message offering assistance with linkage to behavioral health services. KAROLINA Flores-S January 03, 2023 documented in this encounterGlenbeigh Hospital06-08-2023 History of Present illness Narrative* Shayan Martinez [facility] - 12/27/2022 10:00 AM EDT Primary Care Pharmacy Visit CC (Reason for Consult): Diabetes Goal: A1c < 7% Last Collaborating Provider Visit: 11/08/22 Lina Isaac is a 57 year old female presenting for follow up visit in person. Patient consentsto pharmacy collaborative practice agreement. Interim Events: 10/18/22: Pt had low BG events after starting to rotate insulin injection sites so she reportedly self-stopped insulin. She was advised to restart insulin and Trulicity. Also treated for UTI 11/08: Saw PROFESSOR OF PHYSICS for abdominal pain 11/15: Last PharmD visit; basal insulin increased HPI: States her brother was in a severe accident in mid-November, has been driving back and forth to [place] most days. 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 Feels very depressed. Admits not doing much withher medications and taking care of herself. Wants to see Dr. Zheng sooner than January. She is exhausted, doesn't want to leave the house, just not feeling well. Also helping to care for her mother. Runs them both around to doctor's appointments. Unable to take care of her own family. Not eating well. I'm just miserable right now. Is hoping brother can get into intermediate or rehab facility. Denies SI/HI. Not checking blood sugars. Hasn't taken any meds in a couple of weeks. States she hasn't been at her house to take meds. Mother is calling her every 2 hours. Energy level poor. Has a lot of dry mouth - it's like foam, drinking a lot of water. Not urinating frequently, maybe only 3-4x/day since being so busy. Does have some worsening of numbness in feet.No vision changes Current DM Medications: Metformin 1000mg BID Dulaglutide (Trulicity) 4.5mg weekly - Sundays Insulin degludec (Tresiba u200) 90 units QAM Insulin aspart (Novolog) 20 units TIDAC + SSI (skips dose if skips meal) 200-230 = add 2 units 230-260 = add 4 units 260-300 = add 6 units >300 = add 8 units Preventative Medications: On JANNIE/ARB: Yes On Statin: Yes ROS: Patient denies CP, SOB, GRIER, blurred vision, dizziness or lightheadedness Patient denies symptoms of hypoglycemia (sweating, anxiety, palpitations, hunger, and tremor) Patient reports symptoms of hyperglycemia (polydipsia) Patient denies potential medication adverse effects MEDICATIONS: Pill bottles are not present. Adherence: reports missed doses of all meds. Pharmacy: [facility] [address] [place] [address] - [address] - [phone] Rx coverage: Payor: [facility] [place] [facility] / Plan: [employer] [facility] [place] [employer] / Product Type: Medicaid / Medications affordable? Yes Diabetes Supplies: Freestyle Michi ACTIVE PROBLEM LIST Peripheral neuropathy Pain in Limb Incisional Hernia, Without Obstruction Or Gangrene Diabetes Mellitus Type 2 in Obese (Hcc) Low Hdl (Under 40) Gerd (Gastroesophageal Reflux Disease) Essential Hypertension Obesity Trigger Ring Finger of Left Hand Type 2 Diabetes Mellitus With Peripheral Neuropathy (Hcc) Incisional Hernia Dyslipidemia Closed Nondisplaced Fracture of Proximal Phalanx of Lesser Toe of Left Foot With Routine Healing Post-Covid Chronic Dyspnea Shortness of Breath Persistent Cough Restless Leg Arthralgia Muscle Ache Wheezing Paresthesias Hyperlipidemia, Mixed Uncontrolled Type 2 Diabetes Mellitus With Hyperglycemia (Hcc) Generalized Abdominal Pain Chronic Constipation Obesity, Class I, Bmi 30-34.9 Vitamin D Deficiency Fatigue Screening for Osteoporosis Vitamin B12 Deficiency PAST MEDICAL HISTORY Diagnosis Date Asthma Bowel perforation 11/05/2012 C. difficile colitis 04/2016 Closed nondisplaced fracture of proximal phalanx of lesser toe of left foot with routine healing 10/07/2019 COVID-19 03/30/2021 Diabetes mellitus type 2 in obese (HCC) 10/2013 A1C 6.8% Dyslipidemia 01/02/2019 Essential hypertension 08/11/2015 GERD (gastroesophageal reflux disease) Incisional hernia 06/26/2013 Injury to rectosigmoid colon 10/17/2012 Low HDL (under 40) 10/2013 Nephrolithiasis Osteoarthrosis, unspecified whether generalized or localized, other specified sites Osteoarthritis Bilateral knees Spasm of muscle Tobacco use disorder quit 2012 Unspecified hereditary and idiopathic peripheral neuropathy Vaginal fistula 11/27/2012 Past medical history reviewed. ALLERGIES Allergen Reactions Lac Hydrin [Other] Dried her feet Omnicef [Cefdinir] Itching Vaginitis severe Proventil [Albutero* Vomiting Can not tolerate generic albuterol 08/22/12 - MEM. Tramadol Hives Medication List Medication Directions Comments Action/Plan albuterol HFA (VENTOLIN HFA) 90 mcg/actuation inhaler Inhale 2 Puffs as instructed every 4 hours asneeded. For wheezing/shortness of breath. alcohol swabs (BD SINGLE USE SWABS REGULAR) Use as directed 4 to 5 times daily to check blood sugars and with insulin injections aspirin, enteric coated (ASPIRIN, ENTERIC COATED) 81 mg EC tablet Take 1 tablet by mouth once daily. atorvastatin (LIPITOR) 40 mg tablet Take 1 tablet by mouth once daily. blood sugar diagnostic (FREESTYLE PRECISION JEREMIAS STRIPS) test strip Use to test blood sugar up to twice daily as instructed. Dx: insulin-dependent DM Calcium Citrate-Vitamin D3 (CITRACAL+D) 315 mg-6.25 mcg (250 unit) tab Take 1 tablet by mouth once daily. Cholecalciferol, Vitamin D3, 125 mcg (5,000 unit) cap Take 1 capsule by mouth once daily. Patient not taking: Reported on 11/15/2022 cyanocobalamin (VITAMIN B-12) 1,000 mcg tab Take 2 tablets by mouth once daily. diclofenac (VOLTAREN ARTHRITIS PAIN) 1 % topical gel Apply 2 g to affected area four times daily. famotidine (PEPCID) 20 mg tablet Take 1 tablet by mouth twice daily. flash glucose scanning reader ([employer] MICHI 14 DAY READER) [facility] Use to test blood sugar as directed. flash glucose sensor (FREESTYLE MICHI 14 DAY SENSOR) kit Apply sensor to back of arm to check bloodsugars as directed. Change sensor every 2 weeks and rotate arms. gabapentin (NEURONTIN) 100 mg capsule Take 1-2 capsules by mouth daily at bedtime for 30 days. For foot pain glucagon (BAQSIMI) 3 mg/actuation nasal spray Use 1 [place] in the nose as needed for low blood sugar. May repeat after 15 minutes using a new device if there is no response. ibuprofen (MOTRIN) 800 mg tablet Take 1 tablet by mouth every 8 hours as needed for Pain. Take withfood. insulin aspart U-100 (NOVOLOG) 100 unit/mL (3 mL) Inject 20 Units subcutaneously three times daily before meals. Plus sliding scale. TDD 84 units/day. insulin degludec (TRESIBA) 200 unit/mL (3 mL) injection Inject 90 Units subcutaneously every morning. Insulin [place], Disposable, (UNIFINE PENTIPS) 31 gauge x 3/16 Use as directed 4 times daily with insulin lisinopril (ZESTRIL) 10 mg tablet Take 1 tablet by mouth once daily. metFORMIN (GLUCOPHAGE) 1,000 mg tablet Take 1 tablet by mouth twice daily. mupirocin (BACTROBAN) 2 % ointment Apply to affected area every 12 hours as needed (rash, skin lesions). Oral Medication Containers (SHARPS CONTAINER) [facility] [place] to collect sharps as directed. polyethylene glycol 3350 (MIRALAX) 17 gram/dose powder 1 capful daily in the morning TRULICITY 4.5 mg/0.5 mL pen injector Inject 4.5 mg subcutaneously one time a week. Exam: VITALS: BP 138/81 Pulse 94 LMP 08/30/2012 Last 3 Encounter BP Readings: Date: BP: 11/15/2022 121/72 11/08/2022 140/82 10/18/2022 144/86 Wt: 92.2 kg (203 lb 3.2 oz) BMI: 30.90 kg/(m^2) LABS: Reviewed Lab Results Component Value Date HBA1C 10.5 11/08/2022 HBA1C 10.7 11/08/2022 HBA1C 12.2 07/24/2022 HBA1C 11.4 04/25/2022 HBA1C 11.2 08/14/2021 HBA1C 12.1 05/09/2021 HBA1C 10.3 08/05/2020 CMP: Glucose 131 11/08/2022 BUN 12 11/08/2022 Creatinine, Whole Blood (iSTAT) 0.55 11/08/2022 Sodium 140 11/08/2022 Potassium 4.2 11/08/2022 Chloride 103 11/08/2022 CO2 27 11/08/2022 Protein, Total 7.5 11/08/2022 Albumin 4.3 11/08/2022 Calcium 9.8 11/08/2022 Alkaline Phosphatase 88 11/08/2022 Bilirubin, Total 0.9 11/08/2022 AST 14 11/08/2022 ALT 12 11/08/2022 eGFR >60 Lab Results Component Value Date CHOL 193 07/24/2022 CHOL 205 05/09/2021 LDL 126 07/24/2022 LDL 127 05/09/2021 HDL 48 07/24/2022 HDL 54 05/09/2021 TG 95 07/24/2022 TG 120 05/09/2021 The 10-year ASCVD risk score (Latasha CORADO, et al., 2019) is: 12.5% Values used to calculate the score: Age: 57 years Sex: Female Is Non- : Yes Diabetic: Yes Tobacco smoker: No Systolic Blood Pressure: 121 mmHg Is BP treated: Yes HDL Cholesterol: 48 mg/dL Total Cholesterol: 193 mg/dL Albumin/Creat Ratio (mg/g) Date Value 07/24/2022 31 (H) PHARMACOTHERAPY ASSESSMENT/PLAN: 1. Uncontrolled type 2 diabetes mellitus with hyperglycemia (HCC) - ICD9: 250.02, ICD10: E11.65 A1c goal < 7%; uncontrolled (last A1c 10.5%); no CGM to review today; experiencing tremendous stress and caregiver burden, hasn't taken any meds in >2 weeks; is experiencing cotton mouth, low energy, depressed mood, and increased neuropathic pain in feet; need to get back on medications RESTART all medications as prescribed Stressed the importance of taking meds daily. Suggested relocating meds to a different place where she will see them every day or setting alarm on phone. Sounds like patient is always busy running around between her house and taking care of her own kids, running to mother's house to take care of her and brother who is in wheel chair, helping with other nieces/nephews. She is never at home and has no consistent schedule. Feels she will be more able to take meds consistently once her brother is moved to an assisted living facility or intermediate. She is not confident in ability to take meds until some of her stressors improve Advised patient to go to commercial front load operator to get appt scheduled with provider to discuss depression. PharmD will reach out to PCP as FYI. Referral to manager social work placed to provide resources for counseling services Since PharmD will be on maternity leave over the summer, pt was provided option with doing PharmD phone f/up over the summer or seeing providers in-person. She preferred in-person visits so next PharmD f/up scheduled for April. Will inform PCP of this as well. Follow-up Patient is scheduled to see PCP team on 02/15. Patient to have f/up with PharmD team on 05/09. Patient verbalized understanding of instructions. Shayan Martinez PharmD, BCPS Primary Care Clinical Pharmacist The majority of the pharmacy visit (> 50%) was spent counseling and/or coordinating care for thepatient. interaction: face to face time was 40 minutes. documented in this encounterGlenbeigh Hospital06-08-2023 Miscellaneous Notes* Addendum Note - Shayan Martinez RPh - 12/27/2022 10:00 AM EDTAddended by: SHAYAN MARTINEZ on: 12/27/2022 12:44 PM Modules accepted: Orders documented in this encounterGlenbeigh Hospital05-11-2023 History of Present illness Narrative* Nathalie Rodriguez RT(R) - 11/29/2022 12:00 PM EDT RADIOLOGY SERVICE PROGRESS NOTE SERVICE DATE: 11/29/2022 SERVICE TIME: 12:03 PM PATIENT IDENTITY VERIFICATION COMPLETED USING TWO (2) STANDARD IDENTIFIERS: Name and Date of confirmed by patient verbally FALL SCREENING: Has the patient had 2 falls in the last year or 1 fall with injury or currently using an Ambulatory Assistive Device (Walker, Cane, Wheelchair, Crutches, etc.)? No PATIENT GENDER DATA: .female : No ALLERGIES: Reviewed and unchanged MEDICATIONS REVIEWED: No PATIENT RELEVANT IMPLANT DATA REVIEWED: Not Applicable CREATININE: Creatinine Date Value Ref Range Status 11/08/2022 0.55 (L) 0.58 - 0.96 mg/dL Final 07/24/2022 0.50 (L) 0.58 - 0.96 mg/dL Final 04/25/2022 0.49 (L) 0.58 - 0.96 mg/dL Final Estimated Glomerular Filtration Rate Date Value Ref Range Status 11/08/2022 106 >=60 mL/min/1.73m Final Comment: Estimated Glomerular Filtration Rate (eGFR) is calculated using the 2020 CKD-EPI creatinine equation. This equation utilizes serum creatinine, sex, and age as parameters. The creatinine assay has traceable calibration to isotope dilution- mass spectrometry. Refer to KDIGO guidelines for clinical interpretation. In patients with unstable renal function, e.g. those with acute kidney injury, the eGFRmay not accurately reflect actual GFR. eGFR- Date Value Ref Range Status 05/09/2021 >60 Final P.O.C.T. RESULTS: N/A November 29, [address] PERFORMED: No IV SITE: Ambulatory: A peripheral IV was started in the Right antecubital site with a Angio cath: 24 gauge. POST EXAM PIV STATUS: Discontinued PROCEDURE TYPE: NM INJECT: Hepatobiliary with Gallbladder EF. 5.4 mCi Tc99m CHOLETEC. CCK 1.84 micrograms intravenous at 13:20. ADMINISTRATION TIME: PATIENT DISCHARGED TO: Ambulatory patient, left [place] department area. A Diagnostic radioactive procedure has taken place, with no further precautions necessary other than routine body substance precautions. More information regarding radiation safety can be found usingthis link: [email or web address] SIGNATURE: RT Anand(Zachariah) PATIENT NAME: Lina Isaac DATE: November 29, 2022 TIME: 1:03 PM PAGER/CONTACT #: documented in this encounterGlenbeigh Hospital05-10-2023 Miscellaneous Notes* Telephone Encounter - Fabiana Cook LPN - 11/28/2022 10:12 AM EDT Records faxed as below. * Telephone Encounter - Ankita Green APRN.CNP - 11/26/2022 7:04 PM EDT The chest xray was ordered for chest tightness. The nodules were noted on the chest xray and chest CT is recommended as this is a new finding: IMPRESSION: Numerous tiny nodules and reticulations in the bilateral lungs. Further evaluation with dedicated CT chest may be obtained. Ankita Green APRN.CNP * Telephone Encounter - Mariana Joy RN - 11/23/2022 9:44 AM EDT Called number patient had provided [phone] and spoke with Edilia Leos From [employer]. Edilia states that appeal can be filed for this. Edilia states put appeal recommended and that service was not performed. Insurance needs to know how this test would change patient's treatment plan, office notes and chest x ray results, and why was chest xray done in first place. Edilia states to fax info rmation to [phone] which is [facility] department. Chest Xray, office notes, reason why testing was ordered faxed as requested. Mariana Joy RN * Telephone Encounter - Deya Gross LPN - 11/22/2022 4:50 PM EDT Pt called back and she was given a number to call her insurance [phone] which she did and theytold her the doctors office needs to call and they will let them know what is needed regarding the CT. Please advise pt when this has been done. Deya Gross LPN * Telephone Encounter - Hayde Zhu - 11/21/2022 4:50 PM EDT Insurance reports patient will need to contact [facility] [phone] to find out the exact reason why it's not covered by insurance. Pt informed & given phone number. Hayde Zhu * Telephone Encounter - Ankita Green APRN.CNP - 11/20/2022 9:20 PM EDT See my note from 11/08. She had a chest xray that revealed pulmonary nodules and radiology is recommending follow up with CT chest. Ankita Green APRN.CNP * Telephone Encounter - Mariana Joy RN - 11/20/2022 12:34 PM EDT Patient calls and states that insurance had denied CT Scan of the Chest. [facility] and was told that: Insurance does not know what testing provider done prior to warrant CT scan. Insurance states that they do not know what CT scan is for. Patient asking if provider can take a look at this and figure out why insurance is not covering this? Please review and advise, Mariana Joy RN documented in this encounterGlenbeigh Hospital04-27-2023 History of Present illness Narrative* Shayan Martinez, [facility] - 11/15/2022 11:30 AM EDT Images from the original note were not included. Primary Care Pharmacy Visit CC (Reason for Consult): Diabetes Goal: A1c < 7% Collaborating Provider: Dr. Zheng Last Provider Visit: 11/08/22 Lina Isaac is a 57 year old female presenting for follow up visit in person. Patient consentsto pharmacy collaborative practice agreement. Patient is presenting today for f/up pharmacotherapy management appointment for diabetes. At last PharmD visit on 10/18, patient reported experiencing low BG since rotating injection sites and she hadself-stopped all insulins. Patient advised to restart insulin and Trulicity. That same day patient went to urgent care and was started on Macrobid for suspected UTI. At last PROFESSOR OF PHYSICS appt, patient was seen for abdominal pain. Subjective: HPI: States sugars are doing much better since rotating injection sites. Feels overall she is feeling really good. Says she is still having a chronic belly ache, is having that looked into. Will be havingsome tests done at [facility] in a couple of weeks. Other than that I'm feeling really good. Not feelingnearly as tired. No frequency of urination. Says when she takes deep breaths her chest will hurt. This has been going on for a while. Says she is having a test done for check into this as well. No vision changes, SOB, heart palpitations, etc. Current DM Medications: Metformin 1000mg BID Dulaglutide (Trulicity) 4.5mg weekly - Sundays Insulin degludec (Tresiba u200) 80 units QAM Insulin aspart (Novolog) 20 units TIDAC + SSI (skips dose if skips meal) 200-230 = add 2 units 230-260 = add 4 units 260-300 = add 6 units >300 = add 8 units GLYCEMIC CONTROL: Preventative Medications: On JANNIE/ARB: Yes On Statin: Yes ROS: Patient denies CP, SOB, GRIER, blurred vision, dizziness or lightheadedness Patient denies symptoms of hypoglycemia (sweating, anxiety, palpitations, hunger, and tremor) Patient denies symptoms of hyperglycemia (polyuria, polydipsia, polyphagia) Patient denies potential medication adverse effects DIET/EXERCISE/SOCIAL Hx: States she has a belly ache so will sometimes go days without eating MEDICATIONS: Pill bottles are not present Adherence: denies missed doses Pharmacy: [facility] in [place] ([facility]) [facility] [place] Affordability: no issues Diabetes supplies: Hoppit System: none, lost her pill box ACTIVE PROBLEM LIST Peripheral neuropathy Pain in Limb Incisional Hernia, Without Obstruction Or Gangrene Diabetes Mellitus Type 2 in Obese (Hcc) Low Hdl (Under 40) Gerd (Gastroesophageal Reflux Disease) Essential Hypertension Obesity Trigger Ring Finger of Left Hand Type 2 Diabetes Mellitus With Peripheral Neuropathy (Hcc) Incisional Hernia Dyslipidemia Closed Nondisplaced Fracture of Proximal Phalanx of Lesser Toe of Left Foot With Routine Healing Post-Covid Chronic Dyspnea Shortness of Breath Persistent Cough Restless Leg Arthralgia Muscle Ache Wheezing Paresthesias Hyperlipidemia, Mixed Uncontrolled Type 2 Diabetes Mellitus With Hyperglycemia (Hcc) Generalized Abdominal Pain Chronic Constipation Obesity, Class I, Bmi 30-34.9 Vitamin D Deficiency Fatigue Screening for Osteoporosis Vitamin B12 Deficiency PAST MEDICAL HISTORY Diagnosis Date Asthma Bowel perforation 11/05/2012 C. difficile colitis 04/2016 Closed nondisplaced fracture of proximal phalanx of lesser toe of left foot with routine healing 10/07/2019 COVID-19 03/30/2021 Diabetes mellitus type 2 in obese (HCC) 10/2013 A1C 6.8% Dyslipidemia 01/02/2019 Essential hypertension 08/11/2015 GERD (gastroesophageal reflux disease) Incisional hernia 06/26/2013 Injury to rectosigmoid colon 10/17/2012 Low HDL (under 40) 10/2013 Nephrolithiasis Osteoarthrosis, unspecified whether generalized or localized, other specified sites Osteoarthritis Bilateral knees Spasm of muscle Tobacco use disorder quit 2012 Unspecified hereditary and idiopathic peripheral neuropathy Vaginal fistula 11/27/2012 ALLERGIES Allergen Reactions Lac Hydrin [Other] Dried her feet Omnicef [Cefdinir] Itching Vaginitis severe Proventil [Albutero* Vomiting Can not tolerate generic albuterol 08/22/12 - MEM. Tramadol Hives Medication List Medication Directions Comments Action/Plan albuterol (PROVENTIL) 2.5 mg /3 mL (0.083 %) nebulizer solution Use 3 mL via nebulizer every 4 hours as needed for Wheezing/Shortness of Breath. Use over 5-15minutes. Has for PRN use, hasn't used since having COVID several years ago Removed from med list albuterol HFA (VENTOLIN HFA) 90 mcg/actuation inhaler Inhale 2 Puffs as instructed every 4 hours asneeded. For wheezing/shortness of breath. Has for PRN use, last used several months ago alcohol swabs (BD SINGLE USE SWABS REGULAR) Use as directed 4 to 5 times daily to check blood sugars and with insulin injections supplies aspirin, enteric coated (ASPIRIN, ENTERIC COATED) 81 mg EC tablet Take 1 tablet by mouth once daily. taking atorvastatin (LIPITOR) 40 mg tablet Take 1 tablet by mouth once daily. taking blood sugar diagnostic ([employer] PRECISION JEREMIAS STRIPS) test strip Use to test blood sugar up to twice daily as instructed. Dx: insulin-dependent DM supplies Calcium Citrate-Vitamin D3 (CITRACAL+D) 315 mg-6.25 mcg (250 unit) tab Take 1 tablet by mouth once daily. taking Cholecalciferol, Vitamin D3, 125 mcg (5,000 unit) cap Take 1 capsule by mouth once daily. Not taking Marked as not taking cyanocobalamin (VITAMIN B-12) 1,000 mcg tab Take 2 tablets by mouth once daily. taking diclofenac (VOLTAREN ARTHRITIS PAIN) 1 % topical gel Apply 2 g to affected area four times daily. taking divalproex DR (DEPAKOTE) 125 mg EC tablet TAKE 1 TABLET BY MOUTH TWICE DAILY No longer taking, took for migraines Removed from med list divalproex DR (DEPAKOTE) 250 mg EC tablet TAKE 1 TABLET BY MOUTH TWICE DAILY No longer taking, took for migraines Removed from med list famotidine (PEPCID) 20 mg tablet Take 1 tablet by mouth twice daily. taking flash glucose scanning reader (FREESTYLE MICHI 14 DAY READER) [facility] [place] Use to test blood sugar as directed. supplies flash glucose sensor (FREESTYLE MICHI 14 DAY SENSOR) kit Apply sensor to back of arm to check bloodsugars as directed. Change sensor every 2 weeks and rotate arms. supplies gabapentin (NEURONTIN) 100 mg capsule Take 1-2 capsules by mouth daily at bedtime for 30 days. For foot pain taking glucagon (BAQSIMI) 3 mg/actuation nasal spray Use 1 [place] in the nose as needed for low blood sugar. May repeat after 15 minutes using a new device if there is no response. For emergencies ibuprofen (MOTRIN) 800 mg tablet Take 1 tablet by mouth every 8 hours as needed for Pain. Take withfood. PRN insulin aspart U-100 (NOVOLOG) 100 unit/mL (3 mL) Inject 20 Units subcutaneously three times daily before meals. Plus sliding scale. TDD 84 units/day. taking insulin degludec (TRESIBA) 200 unit/mL (3 mL) injection Inject 80 Units subcutaneously every morning. taking Insulin [place], Disposable, (UNIFINE PENTIPS) 31 gauge x 3/16 Use as directed 4 times daily with insulin supplies lisinopril (ZESTRIL) 10 mg tablet Take 1 tablet by mouth once daily. taking metFORMIN (GLUCOPHAGE) 1,000 mg tablet Take 1 tablet by mouth twice daily. taking mupirocin (BACTROBAN) 2 % ointment Apply to affected area every 12 hours as needed (rash, skin lesions). Has for PRN use Oral Medication Containers (SHARPS CONTAINER) [facility] [place] Use to collect sharps as directed. peg 3350-Electrolytes (GOLYTELY) 236-22.74-6.74 -5.86 gram suspension Take by mouth one time only. Had colonoscopy in August polyethylene glycol 3350 (MIRALAX) 17 gram/dose powder 1 capful daily in the morning taking TRULICITY 4.5 mg/0.5 mL pen injector Inject 4.5 mg subcutaneously one time a week. taking Objective: Exam: VITALS: BP 121/72 Pulse 109 LMP 08/30/2012 Last 3 Encounter BP Readings: Date: BP: 11/08/2022 140/82 10/18/2022 144/86 09/17/2022 114/57 Wt: 92.2 kg (203 lb 3.2 oz) BMI: 30.90 kg/(m^2) LABS: Reviewed Lab Results Component Value Date HBA1C 10.5 11/08/2022 HBA1C 10.7 11/08/2022 HBA1C 12.2 07/24/2022 HBA1C 11.4 04/25/2022 HBA1C 11.2 08/14/2021 HBA1C 12.1 05/09/2021 HBA1C 10.3 08/05/2020 CMP: Glucose 131 11/08/2022 BUN 12 11/08/2022 Creatinine, Whole Blood (iSTAT) 0.55 11/08/2022 Sodium 140 11/08/2022 Potassium 4.2 11/08/2022 Chloride 103 11/08/2022 CO2 27 11/08/2022 Protein, Total 7.5 11/08/2022 Albumin 4.3 11/08/2022 Calcium 9.8 11/08/2022 Alkaline Phosphatase 88 11/08/2022 Bilirubin, Total 0.9 11/08/2022 AST 14 11/08/2022 ALT 12 11/08/2022 eGFR >60 Lab Results Component Value Date CHOL 193 07/24/2022 CHOL 205 05/09/2021 LDL 126 07/24/2022 LDL 127 05/09/2021 HDL 48 07/24/2022 HDL 54 05/09/2021 TG 95 07/24/2022 TG 120 05/09/2021 The 10-year ASCVD risk score (Latasha CORADO, et al., 2019) is: 19% Values used to calculate the score: Age: 57 years Sex: Female Is Non- : Yes Diabetic: Yes Tobacco smoker: No Systolic Blood Pressure: 140 mmHg Is BP treated: Yes HDL Cholesterol: 48 mg/dL Total Cholesterol: 193 mg/dL Albumin/Creat Ratio (mg/g) Date Value 07/24/2022 31 (H) PHARMACOTHERAPY ASSESSMENT/PLAN: 1. Uncontrolled type 2 diabetes mellitus with hyperglycemia (HCC) - ICD9: 250.02, ICD10: E11.65 (primary diagnosis) A1c goal < 7%; uncontrolled (last A1c 10.5%); CGM insufficient for interpretation though Bgs still elevated; patient feels BG control improved since rotating insulin injection sites; no issues with lows; not eating very much because of underlying GI issues - working with other doctors to get a di agnosis; will increase basal insulin today and f/up in ~1 mo; renal fxn and LFTs sufficient for use INCREASE Tresiba to 90 units daily CONTINUE metformin 1000mg BID, Trulicity 4.5mg weekly, and Novolog 20 units + SSI TIDAC Educated/advised to scan CGM more frequently Advised to call PharmD/PCP office if starts experiencing low Bgs Educated on importance of better BG control despite feeling well to prevent long-term complications HbA1c: due 02/07 2. Essential hypertension - ICD9: 401.9, ICD10: I10 BP goal < 140/90; controlled though HR elevated; no SOB, vision changes, palpitations, swelling,severe GRIER; does have occasional CP with deep breathing though she reports having been evaluated forthis and has an upcoming scan; tolerating regimen well; no dizziness or light-headedness; no med changes CONTINUE current regimen Encouraged dietary sodium restriction/DASH diet Recommended regular aerobic exercise Follow-up Patient is scheduled to see PCP team on 02/15. Patient to have f/up with PharmD team on 12/27. Patient verbalized understanding of instructions. Shayan Martinez PharmD, [facility] Primary Care Clinical Pharmacist The majority of the pharmacy visit (> 50%) was spent counseling and/or coordinating care for thepatient. interaction: face to face time was 30 minutes. documented in this encounterG[facility]04-27-2023 Instructions* Patient Instructions* Shayan Martinez RPh - 11/15/2022 11:30 AM EDT Please start scanning your sensor more frequently. Scan when you wake up, several times during the middle of the day, and at bedtime. INCREASE Tresiba to 90 units daily. If you start having low blood sugars, CALL the pharmacist to help with insulin dose reduction. documented in this encounterGlen[facility]04-20-2023 History of Present illness Narrative* Concepcion Ocampo, RT(R) - 11/08/2022 2:40 PM EDT Radiology Service Progress Note PATIENT NAME: Lina Isaac DATE OF SERVICE: November 08, 2022 TIME: 2:34 PM PATIENT IDENTITY VERIFICATION COMPLETED USING TWO (2) IDENTIFIERS: Name and Date of confirmedby patient verbally. FALL SCREENING: Has the patient had 2 falls in the last year or 1 fall with injury or currently using an Ambulatory Assistive Device (Walker, Cane, Wheelchair, Crutches, etc.)? No PATIENT GENDER DATA: Female. status: : No status: NO. PATIENT RELEVANT IMPLANT DATA REVIEWED: Yes RADIOLOGY DEPARTMENT: General X-ray: Exam(s) Completed: Chest X-Ray PERIPHERAL IV DATA: Not applicable SIGNED BY: RT Nando(R) November 08, 2022 2:34 PM documented in this encounterGlenbeigh Hospital04-20-2023 History of Present illness Narrative* Keli Ruffin RDMS - 11/08/2022 2:30 PM EDT Radiology Service Progress Note PATIENT NAME: Lina Isaac DATE OF SERVICE: November 08, 2022 TIME: 2:39 PM PATIENT IDENTITY VERIFICATION COMPLETED USING TWO (2) IDENTIFIERS: Name and Date of confirmedby patient verbally. FALL SCREENING: Has the patient had 2 falls in the last year or 1 fall with injury or currently using an Ambulatory Assistive Device (Walker, Cane, Wheelchair, Crutches, etc.)? No PATIENT GENDER DATA: Female. status: : No status: NO. PATIENT RELEVANT IMPLANT DATA REVIEWED: Not Applicable RADIOLOGY DEPARTMENT: Ultrasound PERIPHERAL IV DATA: Not applicable SIGNED BY: Keli Ruffin RDMS RVT November 08, 2022 2:39 PM documented in this encounterGlenbeigh Hospital04-20-2023 Instructions* Patient Instructions* Ankita Green APRN.CNP - 11/08/2022 1:24 PM EDT Schedule your ultrasound and hida scan. Have your labs drawn. Have your chest xray done. documented in this encounterGlenbeigh Hospital04-20-2023 History of Present illness Narrative* Ankita Green APRN.CNP - 11/08/2022 12:48 PM EDT Chief Complaint Patient presents with: Diabetes Abdominal Pain: Seeing Dr. Ramirez, had EGD and colonoscopy in Aug Lina Isaac is a 57 year old female who presents here today for Above Complaints. Today: Every time she eats gets abdominal pain and severe bloating. Reportedly negative EGD. Is a sharp crampy pain in her entire upper abdomen. Has been skipping meals. Is more often nauseated than not-Doublemint gum helps this and uses this all the time. Doesn't typically eat many spicy or greasy foods because these tend to upset her stomach chronically. Recently tried a bite of [employer] andshe was vomiting all night long. Checking blood sugars pretty regularly. Has seen a difference in her blood sugars since Shayan clinical pharmacist explained that she needs to move injections to different places in her abdomen. Past medical history, appointments, medications, allergies reviewed. Previous Medical History PAST MEDICAL HISTORY Diagnosis Date Asthma Bowel perforation 11/05/2012 C. difficile colitis 04/2016 Closed nondisplaced fracture of proximal phalanx of lesser toe of left foot with routine healing 10/07/2019 COVID-19 03/30/2021 Diabetes mellitus type 2 in obese (HCC) 10/2013 A1C 6.8% Dyslipidemia 01/02/2019 Essential hypertension 08/11/2015 GERD (gastroesophageal reflux disease) Incisional hernia 06/26/2013 Injury to rectosigmoid colon 10/17/2012 Low HDL (under 40) 10/2013 Nephrolithiasis Osteoarthrosis, unspecified whether generalized or localized, other specified sites Osteoarthritis Bilateral knees Spasm of muscle Tobacco use disorder quit 2012 Unspecified hereditary and idiopathic peripheral neuropathy Vaginal fistula 11/27/2012 Previous Surgical History PAST SURGICAL HISTORY Procedure Laterality Date DELIVERY ONLY 1986 , low cervical DELIVERY ONLY 2001 , low transverse COLONOSCOPY 08/16/2015 Dr. Ramirez COLONOSCOPY 09/17/2022 repeat in 10 years EGD 09/17/2022 HERNIA REPAIR HX 06/22/2013 HYSTERECTOMY HX 2011 fistula with intestine HYSTEROSCOPY, DIAGNOSTIC (SEPARATE Hysteroscopy/Novasure LAP HYSTERECTOMY FOR UTERUS 250G OR LESS 10/09/2012 with vaginal sling, LSO, right salpingectomy LAPS ABD PRTM&OMENTUM DX W/WO SPEC BR/WA SPX Laparoscopy LAPS REPAIR HERNIA EXCEPT INCAL/INGUN REDUCIBLE 05/2017 LIG/TRNSXJ FLP TUBE ABDL/VAG APPR UNI/BI 2002 Tubal ligation PAST SURGICAL HISTORY OF 01/30/2005 Left shoulder arthroscopy and debridement PAST SURGICAL HISTORY OF 02/2004 3rd toe left foot PAST SURGICAL HISTORY OF 03/14/2010 right total knee replacement PAST SURGICAL HISTORY OF 03/14/2009 left total knee replacement PAST SURGICAL HISTORY OF 01/23/2013 Ileostomy closure. PAST SURGICAL HISTORY OF Left 01/06/2016 left ring trigger release RPR 1ST INCAL/VNT HERNIA INCARCERATED 06/22/2013 at ileostomy site - 11x[address] \mesh RPR RECRT INCAL/VNT HERNIA INCARCERATED 07/23/2014 at midline' RPR RECRT INCAL/VNT HERNIA INCARCERATED 10/11/2014 - recurrent small bowel resection, enterotomy Family History FAMILY HISTORY Problem Relation Age of Onset Hypertension Mother Diabetes Mother Cancer Maternal Uncle throat cancer Hypertension Sister Diabetes Sister other (hyperlipidemia) Sister Patient Allergies ALLERGIES Allergen Reactions Lac Hydrin [Other] Dried her feet Omnicef [Cefdinir] Itching Vaginitis severe Proventil [Albutero* Vomiting Can not tolerate generic albuterol 08/22/12 - MEM. Tramadol Hives Current Medications Current Outpatient Medications on File Prior to Visit Medication Sig insulin aspart U-100 (NOVOLOG) 100 unit/mL (3 mL) Inject 20 Units subcutaneously three times daily before meals. Plus sliding scale. TDD 84 units/day. mupirocin (BACTROBAN) 2 % ointment Apply to affected area every 12 hours as needed (rash, skin lesions). insulin degludec (TRESIBA) 200 unit/mL (3 mL) injection Inject 80 Units subcutaneously every morning. lisinopril (ZESTRIL) 10 mg tablet Take 1 tablet by mouth once daily. peg 3350-Electrolytes (GOLYTELY) 236-22.74-6.74 -5.86 gram suspension Take by mouth one time only. Oral Medication Containers (SHARPS CONTAINER) [facility] [place] as directed. Calcium Citrate-Vitamin D3 (CITRACAL+D) 315 mg-6.25 mcg (250 unit) tab Take 1 tablet by mouth once daily. ibuprofen (MOTRIN) 800 mg tablet Take 1 tablet by mouth every 8 hours as needed for Pain. Take withfood. metFORMIN (GLUCOPHAGE) 1,000 mg tablet Take 1 tablet by mouth twice daily. TRULICITY 4.5 mg/0.5 mL pen injector Inject 4.5 mg subcutaneously one time a week. diclofenac (VOLTAREN ARTHRITIS PAIN) 1 % topical gel Apply 2 g to affected area four times daily. glucagon (BAQSIMI) 3 mg/actuation nasal spray Use 1 [place] in the nose as needed for low blood sugar. May repeat after 15 minutes using a new device if there is no response. Cholecalciferol, Vitamin D3, 125 mcg (5,000 unit) cap Take 1 capsule by mouth once daily. cyanocobalamin (VITAMIN B-12) 1,000 mcg tab Take 2 tablets by mouth once daily. famotidine (PEPCID) 20 mg tablet Take 1 tablet by mouth twice daily. atorvastatin (LIPITOR) 40 mg tablet Take 1 tablet by mouth once daily. flash glucose sensor (FREESTYLE MICHI 14 DAY SENSOR) kit Apply sensor to back of arm to check bloodsugars as directed. Change sensor every 2 weeks and rotate arms. aspirin, enteric coated (ASPIRIN, ENTERIC COATED) 81 mg EC tablet Take 1 tablet by mouth once daily. alcohol swabs (BD SINGLE USE SWABS REGULAR) Use as directed 4 to 5 times daily to check blood sugars and with insulin injections polyethylene glycol 3350 (MIRALAX) 17 gram/dose powder 1 capful daily in the morning albuterol HFA (VENTOLIN HFA) 90 mcg/actuation inhaler Inhale 2 Puffs as instructed every 4 hours asneeded. For wheezing/shortness of breath. blood sugar diagnostic (FREESTYLE PRECISION JEREMIAS STRIPS) test strip Use to test blood sugar up to twice daily as instructed. Dx: insulin-dependent DM Insulin [place], Disposable, (UNIFINE PENTIPS) 31 gauge x 3/16 Use as directed 4 times daily with insulin flash glucose scanning reader (Human [employer] AnalyticsSTYLE MICHI 14 DAY READER) [facility] [place] to test blood sugar as directed. albuterol (PROVENTIL) 2.5 mg /3 mL (0.083 %) nebulizer solution Use 3 mL via nebulizer every 4 hours as needed for Wheezing/Shortness of Breath. Use over 5-15minutes. gabapentin (NEURONTIN) 100 mg capsule Take 1-2 capsules by mouth daily at bedtime for 30 days. For foot pain divalproex DR (DEPAKOTE) 125 mg EC tablet TAKE 1 TABLET BY MOUTH TWICE DAILY divalproex DR (DEPAKOTE) 250 mg EC tablet TAKE 1 TABLET BY MOUTH TWICE DAILY No current facility-administered medications on file prior to visit. Social History Social History Tobacco Use Smoking status: Former Packs/day: 0.50 Years: 24.00 Pack years: 12.00 Types: Cigarettes Quit date: 05/13/2013 Years since quittin.4 Smokeless tobacco: Never Vaping Use Vaping Use: Never used Substance Use Topics Alcohol use: No Drug use: No Review of Symptoms REVIEW OF SYSTEMS See HPI, otherwise negative EXAM: BP 140/82 (BP Site: Right Arm, BP Position: Sitting, BP Cuff Size: Regular Adult) Pulse 105 Resp 18 Wt 92.2 kg (203 lb 3.2 oz) LMP 08/30/2012 SpO2 97% BMI 30.90 kg/m General Appearance: Well appearing, alert, in no acute distress, well-hydrated, well nourished. andObese. Skin: Skin color, texture, turgor normal, no suspicious rashes or lesions. Head: Normocephalic, no masses, lesions, tenderness or abnormalities. Eyes: Anicteric sclera. Pupils are equally round and reactive to light. Extraocular movements are intact. . Ears: External ears normal, canals clear. Nose/Sinuses: Nares normal, septum midline, mucosa normal, no drainage or sinus tenderness. Oropharynx: Lips, mucosa, and tongue normal, teeth and gums normal, oropharynx normal. Neck: Supple, no adenopathy; thyroid symmetric, normal size, no bruits. Lungs: Lungs clear to auscultation. No wheezing, rhonchi, rales.. Heart: RRR without murmur, gallop, or rubs. No ectopy. Abdomen: Normal abdominal exam, Abdomen soft. Generalized tenderness to palpation, no guarding. Bowel sounds normal. No masses, organomegaly. Extremities: No deformities, edema, skin discoloration, clubbing or cyanosis. Good capillary refill. . Musculoskeletal: No joint swelling, deformity, or tenderness. Peripheral Pulses: Normal. Neurologic: Gait normal. Reflexes normal and symmetric. Sensation grossly intact.. Lymph Nodes: No cervical lymphadenopathy and No supraclavicular lymphadenopathy. Psychiatric: pleasant, cooperative. Health Maintenance List HEPATITIS B(1 of 3 - 3-dose series) Never done COVID-19 VACCINE(4 - Booster for Pfizer series) due on 02/16/2022 BP CONTROLLED (<130/80) due on 08/14/2022 DILATED RETINAL EXAM due on 08/30/2022 HBA1C due on 10/22/2022 DIABETIC FOOT EXAM due on 07/04/2023 URINE ALBUMIN:CREATININE RATIO due on 07/24/2023 LDL CHOLESTEROL due on 07/24/2023 ANNUAL PCP TEAM CHRONIC DISEASE VISIT due on 07/24/2023 MAMMOGRAM due on 09/06/2023 DTAP,TDAP,TD(3 - Td or Tdap) due on 01/29/2024 COLORECTAL CANCER SCREENING due on 09/17/2032 INFLUENZA Completed DEPRESSION ASSESSMENT Completed HEPATITIS C SCREENING Completed HIV SCREENING Completed SHINGRIX VACCINE Completed PNEUMOCOCCAL Completed PAP TESTING Discontinued HPV TESTING Discontinued Data reviewed Previous records, office notes ASSESSMENT/PLAN: 1. Nausea - ICD9: 787.02, ICD10: R11.0 (primary diagnosis) - US ABD RIGHT UPPER QUADRANT - NM HEPATOBILIARY W EF AND/OR RX - UA DIP, URINE (POC) - URINE CULTURE - COMP METABOLIC PANEL - CBC - AMYLASE BLD - LIPASE BLD - C-REACTIVE PROTEIN (CRP) - SED RATE WESTERGREN 2. Pain of upper abdomen - ICD9: 789.09, ICD10: R10.10 - US ABD RIGHT UPPER QUADRANT - NM HEPATOBILIARY W EF AND/OR RX - COMP METABOLIC PANEL - CBC - AMYLASE BLD - LIPASE BLD - C-REACTIVE PROTEIN (CRP) - SED RATE WESTERGREN 3. Type 2 diabetes mellitus with peripheral neuropathy (HCC) - ICD9: 250.60, 357.2, ICD10: E11.42 - Uncontrolled Follow with pharmacy as planned/scheduled - US ABD RIGHT UPPER QUADRANT - NM HEPATOBILIARY W EF AND/OR RX - COMP METABOLIC PANEL - CBC - AMYLASE BLD - LIPASE BLD - C-REACTIVE PROTEIN (CRP) - SED RATE WESTERGREN 4. RUQ pain - ICD9: 789.01, ICD10: R10.11 - [place] low residue diet - US ABD RIGHT UPPER QUADRANT - NM HEPATOBILIARY W EF AND/OR RX - COMP METABOLIC PANEL - CBC - AMYLASE BLD - LIPASE BLD - C-REACTIVE PROTEIN (CRP) - SED RATE WESTERGREN 5. Gastroesophageal reflux disease, unspecified whether esophagitis present - ICD9: 530.81, ICD10: K21.9 - US ABD RIGHT UPPER QUADRANT - NM HEPATOBILIARY W EF AND/OR RX - COMP METABOLIC PANEL - CBC - AMYLASE BLD - LIPASE BLD - C-REACTIVE PROTEIN (CRP) - SED RATE WESTERGREN 6. Abdominal bloating - ICD9: 787.3, ICD10: R14.0 - US ABD RIGHT UPPER QUADRANT - NM HEPATOBILIARY W EF AND/OR RX - COMP METABOLIC PANEL - CBC - AMYLASE BLD - LIPASE BLD - C-REACTIVE PROTEIN (CRP) - SED RATE WESTERGREN 7. Acute left flank pain - ICD9: 789.09, 338.19, ICD10: R10.9 UA negative,send for culture - UA DIP, URINE (POC) - URINE CULTURE - COMP METABOLIC PANEL - CBC - AMYLASE BLD - LIPASE BLD - C-REACTIVE PROTEIN (CRP) - SED RATE WESTERGREN 8. Chest tightness - ICD9: 786.59, ICD10: R07.89 Do not suspect cardiac etiology, but with hx PE, r/o clot formation. - XR CHEST 2V FRONTAL/LAT - D-DIMER Ankita Green APRN.CARLITOS documented in this encounterG[facility]03-30-2023 Miscellaneous Notes* Telephone Encounter - Marci Koch RN - 10/18/2022 11:58 AM EDT Left voicemail for Lina to please call and reschedule her visit with Dr. Ramirez to next week. Dr. Ramirez was called away for an emergency surgery. Marci Koch RN documented in this encounterGlen[facility]igh Hospital03-30-2023 Instructions* Patient Instructions* Radha Baron APRN.CARLITOS - 10/18/2022 9:53 AM EDT ASSESSMENT/PLAN: 1. Urinary frequency - ICD9: 788.41, ICD10: R35.0 acute - UA positive for hematuria, proteinuria, and glucose - Send urine for culture - Begin treatment with Macrobid 100 mg BID for 7 days - Patient education for prevention given - UA DIP, URINE (POC) - URINE CULTURE - NITROFURANTOIN MONOHYDRATE & MACROCRYSTAL 100 MG ORAL CAP 2. Glucosuria - ICD9: 791.5, ICD10: R81 - patient admits to recent elevated blood sugars, saw Pharmacist this morning for adjustment of DM meds. 3. Acute left-sided low back pain without sciatica - ICD9: 724.2, ICD10: M54.50 - suspect UTI vs. Kidney stone - will treat for UTI today, if culture is negative may stop antibiotic. - Follow-up with your PCP in 3-5 days if symptoms have not improved or sooner if symptoms worsen - Discussed red flags and need for immediate medical evaluation if any occur. - Discussed supportive care treatment with fluids, rest and analgesia. - Discussed expected course of illness Radha Baron APRN.[facility] PATIENT INFO BLADDER INFECTION OVERVIEW Bladder infections are one of the most common infections, causing symptoms of burning with urination and needing to urinate frequently. A bladder infection is a type of urinary tract infection (UTI).Bladder infections are more common is women than men. Most women have an uncomplicated bladder infection that is easily treated with a short course of antibiotics. In men, bladder infections may alsoaffect the prostate gland, and a longer course of treatment may be needed. BLADDER INFECTION CAUSES The urinary tract includes the kidneys (which filter urine), ureters (the tube that carries urine from the kidneys to the bladder), the bladder (which stores urine), and urethra (the tube that carries urine out of the bladder). Bacteria do not normally live in these areas. However, bacteria normally live close to the urethra in women and men who are not circumcised. Bladder infections occur when bacteria travel up the urethra into the bladder. Factors that increase the risk of developing a bladder infection include: Vaginal sex Use of spermicides History of past bladder infections Diabetes In men, not being circumcised or having anal sex increase the risk of bladder infections. BLADDER INFECTION SYMPTOMS The typical symptoms of a bladder infection include: Pain or burning when urinating Frequent need to urinate Urgent need to urinate Blood in the urine Fever, back pain, nausea, or vomiting are not common symptoms of a bladder infection, but can occurin people with a kidney infection (pyelonephritis). If you have these symptoms, you should call your doctor or nurse immediately. Is it a bladder infection or something else? -- Burning with urination can also occur in people with vaginitis (eg, yeast infection) or urethritis (inflammation of the urethra). For this reason, it is important to call your healthcare provider before assuming you have a bladder infection. BLADDER INFECTION DIAGNOSIS Simple bladder infections are usually diagnosed based upon your symptoms alone. However, most patients, especially those who have bladder infection symptoms for the first time, should see a healthcare provider for urine testing. Urine culture -- A urine culture is a test that uses a sample of urine to try and grow bacteria in a laboratory. It usually requires about 48 hours to get results. However, a urine culture is not always required to diagnose a bladder infection. Urine culture is often recommended if: You have never had a bladder infection before You have symptoms that are not typical for bladder infection You have had resistant bladder infections before You have frequent bladder infections You do not begin to feel better within 24 to 48 hours after starting antibiotics You are BLADDER INFECTION TREATMENT Bladder infection -- In young, healthy adolescents and adults with a bladder infection, the usual treatment includes a three to seven day course of antibiotics. The typical drugs chosen are: trimethoprim-sulfamethoxazole (Bactrim ), nitrofurantoin (Macrobid ), ciprofloxacin (Cipro ) or levofloxacin (Levaquin ). In men, the infection may involve your prostate gland and treatment is usually given for at least 7days. Your symptoms should begin to resolve within one day after starting treatment. It is important to take the full course of antibiotics to completely eliminate the infection. If your symptoms persist for more than two or three days after starting treatment, call your healthcare provider. If needed, you can take a prescription medication that numbs the bladder and urethra (phenazopyridine [Pyridium ]) to reduce the burning pain of some UTIs. A similar medication is available without aprescription (eg, Uristat). Both medications change the color of the urine (usually blue or orange)and can interfere with laboratory testing. You should not take these medications for more than 48 hours due to the risk of side effects. These medications do not treat the infection and must be takenalong with an antibiotic. Some providers recommend drinking more fluids while treating bladder infections to help flush bacteria from the bladder. Others believe that drinking more fluids may dilute the antibiotic in the bladder and make the medication less effective. No studies have been performed to address this issue. There are also no good studies on the effectiveness of cranberry juice for treating a bladder infection; we do not recommend using cranberry juice to treat bladder infections. Follow-up care -- Follow-up testing is not needed in healthy, young men or women with a bladder infection if symptoms resolve. women are usually asked to have a repeat urine culture one to two weeks after treatment has ended to make sure the bacteria are no longer in the urine. RECURRENT BLADDER INFECTIONS Bladder infections versus other causes -- Some adults, especially women, develop bladder infectionsfrequently. In this case, it is important to confirm that your symptoms (eg, pain or burning, frequency, and urgency) are caused by a bladder infection. Symptoms are usually similar from one infection to another. The best way to confirm an infection is to have a urine culture. If your urine culture is negative for infection, other causes of pain, burning, and frequency should be investigated. There is no reason to take antibiotics if your urine culture is negative. Need for further testing -- If you continue to develop bladder infections, you may require further testing. If you continue to notice blood in your urine after your bladder infection has cleared, you should have further testing. Preventing recurrent UTIs -- Women with recurrent urinary tract infections may be advised to take steps to prevent bladder infections, including one or more of the following: Changes in control -- Women who develop frequent bladder infections and use spermicides, particularly those who also use a diaphragm, may be encouraged to use an alternate method of control. Cranberry products -- Taking cranberry juice or cranberry tablets has been promoted as one way to help prevent frequent bladder infections. However, this has not been proven. Drinking more fluid and urinating after intercourse -- Although studies have not proven that drinking more fluids or urinating soon after intercourse can prevent infection, some healthcare providers recommend these measures since they are not harmful. Drinking more fluid may help to wash out bacteria that enter the bladder. Postmenopausal women -- Postmenopausal women who develop recurrent bladder infections may benefit from using vaginal estrogen. Vaginal estrogen is available in a flexible ring that is worn in the vagina for three months (eg, Estring ), a small tablet (Vagifem ), or a cream (eg, Premarin or Estrace ). Vaginal estrogen is discussed in more detail in a separate topic review. Antibiotics -- A preventive antibiotic treatment may be recommended if you repeatedly develop bladder infections and have not responded to other preventive measures. Antibiotics are highly effective in preventing recurrent bladder infections and can be taken in several different ways. Preventive antibiotic -- You can take a low dose of an antibiotic once per day or three times per week for six months to several years. Antibiotics following intercourse -- In women who develop urinary tract infections after sex, taking a single low dose antibiotic after intercourse can help to prevent bladder infections. Self-treatment -- A plan to begin antibiotics at the first sign of a bladder infection may be recommended in some situations. Before starting this regimen, it is important that you have had testing (urine cultures) to confirm that your symptoms are caused by a bladder infection; some people have symptoms of a bladder infection but do not actually have an infection. documented in this encounterG[facility]23 History of Present illness Narrative* Radha Baron APRN.CNP - 10/18/2022 9:45 AM EDT Subjective HPI Lina Isaac is a 56 year old female who presents with urinary frequency and pain in her back, left flank are. This has been present intermittently for the past week. Notes it began after drinking a big jug of all natural lemonade. Visibly uncomfortable. Pain came back this AM at 1:30 andit came back with a vengeance. Denies any pain with urination or burning which are typical sx forher when she has a bladder infection. Constant sharp stabbing pains. Took ibuprofen and drank a lotof water this AM to flush out kidneys but this did not help the pain. She has not had a fever. She has had occasional nausea when pain gets severe. She has not taken any medication for this at home. Review of Systems Constitutional: Negative for chills and fever. Respiratory: Negative. Cardiovascular: Negative. Gastrointestinal: Positive for nausea. Negative for abdominal pain and vomiting. Genitourinary: Positive for flank pain and frequency. Negative for dysuria, hematuria and urgency. Musculoskeletal: Positive for back pain. BP 144/86 Pulse 101 Temp 36.8 C (98.2 F) (Tympanic) Resp 18 Wt 91.6 kg (202 lb) LMP 08/30/2012 SpO2 100% BMI 30.71 kg/m PAST MEDICAL HISTORY Diagnosis Date Asthma Bowel perforation 11/05/2012 C. difficile colitis 04/2016 Closed nondisplaced fracture of proximal phalanx of lesser toe of left foot with routine healing 10/07/2019 COVID-19 03/30/2021 Diabetes mellitus type 2 in obese (HCC) 10/2013 A1C 6.8% Dyslipidemia 01/02/2019 Essential hypertension 08/11/2015 GERD (gastroesophageal reflux disease) Incisional hernia 06/26/2013 Injury to rectosigmoid colon 10/17/2012 Low HDL (under 40) 10/2013 Nephrolithiasis Osteoarthrosis, unspecified whether generalized or localized, other specified sites Osteoarthritis Bilateral knees Spasm of muscle Tobacco use disorder quit 2012 Unspecified hereditary and idiopathic peripheral neuropathy 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 Ramirez COLONOSCOPY 09/17/2022 repeat in 10 years EGD 09/17/2022 HERNIA REPAIR HX 06/22/2013 HYSTERECTOMY HX 2011 fistula with intestine HYSTEROSCOPY, DIAGNOSTIC (SEPARATE Hysteroscopy/Novasure LAP HYSTERECTOMY FOR UTERUS 250G OR LESS 10/09/2012 with vaginal sling, LSO, right salpingectomy LAPS ABD PRTM&OMENTUM DX W/WO SPEC BR/WA SPX Laparoscopy LAPS REPAIR HERNIA EXCEPT INCAL/INGUN REDUCIBLE 05/2017 LIG/TRNSXJ FLP TUBE ABDL/VAG APPR UNI/BI 2001 Tubal ligation PAST SURGICAL HISTORY OF 01/30/2005 Left shoulder arthroscopy and debridement PAST SURGICAL HISTORY OF 02/2004 3rd toe left foot PAST SURGICAL HISTORY OF 03/14/2010 right total knee replacement PAST SURGICAL HISTORY OF 03/14/2009 left total knee replacement PAST SURGICAL HISTORY OF 01/23/2013 Ileostomy closure. PAST SURGICAL HISTORY OF Left 01/06/2016 left ring trigger release RPR 1ST INCAL/VNT HERNIA INCARCERATED 06/22/2013 at ileostomy site - 11x[address] \mesh RPR RECRT INCAL/VNT HERNIA INCARCERATED 07/23/2014 at midline' RPR RECRT INCAL/VNT HERNIA INCARCERATED 10/11/2014 - recurrent small bowel resection, enterotomy ALLERGIES Lac Hydrin [Other], Omnicef [Cefdinir], Proventil [Albuterol Sulfate], and Tramadol MEDICATIONS insulin degludec (TRESIBA) 200 unit/mL (3 mL) injection Inject 80 Units subcutaneously every morning. insulin aspart U-100 (NOVOLOG FLEXPEN U-100 INSULIN) 100 unit/mL (3 mL) Inject 10 Units subcutaneously three times daily before meals. Plus sliding scale. TDD 84 units/day. lisinopril (ZESTRIL) 10 mg tablet Take 1 tablet by mouth once daily. peg 3350-Electrolytes (GOLYTELY) 236-22.74-6.74 -5.86 gram suspension Take by mouth one time only. Oral Medication Containers (SHAR[place] CON[place] [facility] [place] as directed. Calcium Citrate-Vitamin D3 (CITRACAL+D) 315 mg-6.25 mcg (250 unit) tab Take 1 tablet by mouth once daily. ibuprofen (MOTRIN) 800 mg tablet Take 1 tablet by mouth every 8 hours as needed for Pain. Take withfood. metFORMIN (GLUCOPHAGE) 1,000 mg tablet Take 1 tablet by mouth twice daily. mupirocin (BACTROBAN) 2 % ointment Apply to affected area every 12 hours as needed (rash, skin lesions). TRULICITY 4.5 mg/0.5 mL pen injector Inject 4.5 mg subcutaneously one time a week. diclofenac (VOLTAREN ARTHRITIS PAIN) 1 % topical gel Apply 2 g to affected area four times daily. glucagon (BAQSIMI) 3 mg/actuation nasal spray Use 1 [place] in the nose as needed for low blood sugar. May repeat after 15 minutes using a new device if there is no response. Cholecalciferol, Vitamin D3, 125 mcg (5,000 unit) cap Take 1 capsule by mouth once daily. cyanocobalamin (VITAMIN B-12) 1,000 mcg tab Take 2 tablets by mouth once daily. famotidine (PEPCID) 20 mg tablet Take 1 tablet by mouth twice daily. atorvastatin (LIPITOR) 40 mg tablet Take 1 tablet by mouth once daily. flash glucose sensor (FREESTYLE MICHI 14 DAY SENSOR) kit Apply sensor to back of arm to check bloodsugars as directed. Change sensor every 2 weeks and rotate arms. aspirin, enteric coated (ASPIRIN, ENTERIC COATED) 81 mg EC tablet Take 1 tablet by mouth once daily. alcohol swabs (BD SINGLE USE SWABS REGULAR) Use as directed 4 to 5 times daily to check blood sugars and with insulin injections polyethylene glycol 3350 (MIRALAX) 17 gram/dose powder 1 capful daily in the morning albuterol HFA (VENTOLIN HFA) 90 mcg/actuation inhaler Inhale 2 Puffs as instructed every 4 hours asneeded. For wheezing/shortness of breath. blood sugar diagnostic ([employer] PRECISION JEREMIAS STRIPS) test strip Use to test blood sugar up to twice daily as instructed. Dx: insulin-dependent DM Insulin [place], Disposable, (UNIFINE PENTIPS) 31 gauge x 3/16 Use as directed 4 times daily with insulin flash glucose scanning reader (FREESTYLE MICHI 14 DAY READER) [facility] [place] test blood sugar as directed. albuterol (PROVENTIL) 2.5 mg /3 mL (0.083 %) nebulizer solution Use 3 mL via nebulizer every 4 hours as needed for Wheezing/Shortness of Breath. Use over 5-15minutes. nitrofurantoin monohydrate and macrocrystal (MACROBID) 100 mg capsule Take 1 capsule by mouth twicedaily for 7 days. gabapentin (NEURONTIN) 100 mg capsule Take 1-2 capsules by mouth daily at bedtime for 30 days. For foot pain divalproex DR (DEPAKOTE) 125 mg EC tablet TAKE 1 TABLET BY MOUTH TWICE DAILY divalproex DR (DEPAKOTE) 250 mg EC tablet TAKE 1 TABLET BY MOUTH TWICE DAILY FAMILY HISTORY Problem Relation Age of Onset Hypertension Mother Diabetes Mother Cancer Maternal Uncle throat cancer Hypertension Sister Diabetes Sister other (hyperlipidemia) Sister Social History Tobacco Use Smoking status: Former Packs/day: 0.50 Years: 24.00 Pack years: 12.00 Types: Cigarettes Quit date: 05/13/2013 Years since quittin.4 Smokeless tobacco: Never Vaping Use Vaping Use: Never used Substance Use Topics Alcohol use: No Drug use: No Objective Physical Exam Vitals and nursing note reviewed. Constitutional: Appearance: Normal appearance. Cardiovascular: Rate and Rhythm: Normal rate and regular rhythm. Heart sounds: Normal heart sounds. Pulmonary: Effort: Pulmonary effort is normal. No respiratory distress. Breath sounds: Normal breath sounds. No wheezing or rales. Abdominal: General: There is no distension. Palpations: Abdomen is soft. There is no mass. Tenderness: There is no abdominal tenderness. There is no right CVA tenderness, left CVA tendernessor guarding. Skin: General: Skin is warm and dry. Neurological: Mental Status: She is alert. ASSESSMENT/PLAN: 1. Urinary frequency - ICD9: 788.41, ICD10: R35.0 acute - UA positive for hematuria, proteinuria, and glucose - Send urine for culture - Begin treatment with Macrobid 100 mg BID for 7 days - Patient education for prevention given - UA DIP, URINE (POC) - URINE CULTURE - NITROFURANTOIN MONOHYDRATE & MACROCRYSTAL 100 MG ORAL CAP 2. Glucosuria - ICD9: 791.5, ICD10: R81 - patient admits to recent elevated blood sugars, saw Pharmacist this morning for adjustment of DM meds. 3. Acute left-sided low back pain without sciatica - ICD9: 724.2, ICD10: M54.50 - suspect UTI vs. Kidney stone - will treat for UTI today, if culture is negative may stop antibiotic. - Follow-up with your PCP in 3-5 days if symptoms have not improved or sooner if symptoms worsen - Discussed red flags and need for immediate medical evaluation if any occur. - Discussed supportive care treatment with fluids, rest and analgesia. - Discussed expected course of illness Radha Baron APRN.CARLITOS documented in this encounterGlen[facility] Hospital03-30-2023 History of Present illness Narrative* Shayan Martinez, [facility] - 10/18/2022 9:00 AM EDT Images from the original note were not included. Primary Care Pharmacy Visit CC (Reason for Consult): Diabetes Goal: A1c < 7% Collaborating Provider: Dr. Zheng Last Provider Visit: 07/24/22 Lina Isaac is a 56 year old female presenting for follow up visit in person. Patient consentsto pharmacy collaborative practice agreement. Patient is presenting today for f/up pharmacotherapy management appointment for diabetes. At PharmDvisit on 06/21, minimal SMBGs to review and patient refused med changes so dietary modifications encouraged. At last PROFESSOR OF PHYSICS appt, patient seen for influenza concerns. At last PCP appt, gabapentin was started for neuropathy. At last PharmD visit on 09/13, Tresiba increased and insulin education provided. Subjective: HPI: Patient states she started rotating injection sites, no longer using the area that is scarred. Since rotating sites she started having low blood sugars. States she stopped all insulins on 10/05 because of the lows about 1 hour after meals. Can't get Trulicity in from the pharmacy, supply issues. Went on Saturday and it wasn't available from pharmacy. Last dose was this past Saturday. Having a lot of pain in office today, back left flank. Visibly uncomfortable. Uncertain if has a back ache or kidney infection. Said it started it couple of days ago then it went away. Pain came backthis AM at 1:30 and it came back with a vengeance. States it is very painful. Denies any pain with urination or burning which are typical sx for her when she has a bladder infection. Constant sharpstabbing pains. Took ibuprofen and drank a lot of water this AM to flush out kidneys but didn't help with anything. No CP, SOP, vision changes. Does have a dull headache which is baseline for her. Current DM Medications: Metformin 1000mg BID Dulaglutide (Trulicity) 4.5mg weekly - Sundays Insulin degludec (Tresiba) 116 units QAM (no insulin since 10/05) Insulin aspart (Novolog) 20 units TIDAC + SSI (no insulin since 10/05) 200-230 = add 2 units 230-260 = add 4 units 260-300 = add 6 units >300 = add 8 units GLYCEMIC CONTROL: Preventative Medications: On JANNIE/ARB: Yes On Statin: Yes ROS: Patient denies CP, SOB, GRIER, blurred vision, dizziness or lightheadedness Patient denies symptoms of hypoglycemia (sweating, anxiety, palpitations, hunger, and tremor) Patient denies potential medication adverse effects MEDICATIONS: Pill bottles are not present Adherence: reports missed doses of insulin since 10/05 due to lows [facility] [facility] [place] [facility] [place]: [place] issues Diabetes supplies: [employer] System: none, lost her pill box ACTIVE PROBLEM LIST Peripheral neuropathy Pain in Limb Incisional Hernia, Without Obstruction Or Gangrene Diabetes Mellitus Type 2 in Obese (Hcc) Low Hdl (Under 40) Gerd (Gastroesophageal Reflux Disease) Essential Hypertension Obesity Trigger Ring Finger of Left Hand Type 2 Diabetes Mellitus With Peripheral Neuropathy (Hcc) Incisional Hernia Dyslipidemia Closed Nondisplaced Fracture of Proximal Phalanx of Lesser Toe of Left Foot With Routine Healing Post-Covid Chronic Dyspnea Shortness of Breath Persistent Cough Restless Leg Arthralgia Muscle Ache Wheezing Paresthesias Hyperlipidemia, Mixed Uncontrolled Type 2 Diabetes Mellitus With Hyperglycemia (Hcc) Generalized Abdominal Pain Chronic Constipation Obesity, Class I, Bmi 30-34.9 Vitamin D Deficiency Fatigue Screening for Osteoporosis Vitamin B12 Deficiency PAST MEDICAL HISTORY Diagnosis Date Asthma Bowel perforation 11/05/2012 C. difficile colitis 04/2016 Closed nondisplaced fracture of proximal phalanx of lesser toe of left foot with routine healing 10/07/2019 COVID-19 03/30/2021 Diabetes mellitus type 2 in obese (HCC) 10/2013 A1C 6.8% Dyslipidemia 01/02/2019 Essential hypertension 08/11/2015 GERD (gastroesophageal reflux disease) Incisional hernia 06/26/2013 Injury to rectosigmoid colon 10/17/2012 Low HDL (under 40) 10/2013 Nephrolithiasis Osteoarthrosis, unspecified whether generalized or localized, other specified sites Osteoarthritis Bilateral knees Spasm of muscle Tobacco use disorder quit 2012 Unspecified hereditary and idiopathic peripheral neuropathy Vaginal fistula 11/27/2012 ALLERGIES Allergen Reactions Lac Hydrin [Other] Dried her feet Omnicef [Cefdinir] Itching Vaginitis severe Proventil [Albutero* Vomiting Can not tolerate generic albuterol 08/22/12 - MEM. Tramadol Hives Medication List Medication Directions Comments Action/Plan albuterol (PROVENTIL) 2.5 mg /3 mL (0.083 %) nebulizer solution Use 3 mL via nebulizer every 4 hours as needed for Wheezing/Shortness of Breath. Use over 5-15minutes. albuterol HFA (VENTOLIN HFA) 90 mcg/actuation inhaler Inhale 2 Puffs as instructed every 4 hours asneeded. For wheezing/shortness of breath. alcohol swabs (BD SINGLE USE SWABS REGULAR) Use as directed 4 to 5 times daily to check blood sugars and with insulin injections aspirin, enteric coated (ASPIRIN, ENTERIC COATED) 81 mg EC tablet Take 1 tablet by mouth once daily. atorvastatin (LIPITOR) 40 mg tablet Take 1 tablet by mouth once daily. blood sugar diagnostic ([employer]STYLE PRECISION JEREMIAS STRIPS) test strip Use to test blood sugar up to twice daily as instructed. Dx: insulin-dependent DM Calcium Citrate-Vitamin D3 (CITRACAL+D) 315 mg-6.25 mcg (250 unit) tab Take 1 tablet by mouth once daily. Cholecalciferol, Vitamin D3, 125 mcg (5,000 unit) cap Take 1 capsule by mouth once daily. cyanocobalamin (VITAMIN B-12) 1,000 mcg tab Take 2 tablets by mouth once daily. diclofenac (VOLTAREN ARTHRITIS PAIN) 1 % topical gel Apply 2 g to affected area four times daily. divalproex DR (DEPAKOTE) 125 mg EC tablet TAKE 1 TABLET BY MOUTH TWICE DAILY divalproex DR (DEPAKOTE) 250 mg EC tablet TAKE 1 TABLET BY MOUTH TWICE DAILY famotidine (PEPCID) 20 mg tablet Take 1 tablet by mouth twice daily. flash glucose scanning reader (Human Factor AnalyticsSTYLE MICHI 14 DAY READER) [facility] [place] to test blood sugar as directed. flash glucose sensor (FREESTYLE MICHI 14 DAY SENSOR) kit Apply sensor to back of arm to check bloodsugars as directed. Change sensor every 2 weeks and rotate arms. gabapentin (NEURONTIN) 100 mg capsule Take 1-2 capsules by mouth daily at bedtime for 30 days. For foot pain glucagon (BAQSIMI) 3 mg/actuation nasal spray Use 1 [place] in the nose as needed for low blood sugar. May repeat after 15 minutes using a new device if there is no response. ibuprofen (MOTRIN) 800 mg tablet Take 1 tablet by mouth every 8 hours as needed for Pain. Take withfood. insulin aspart U-100 (NOVOLOG FLEXPEN U-100 INSULIN) 100 unit/mL (3 mL) Inject 20 Units subcutaneously three times daily before meals. Plus sliding scale. TDD 84 units/day. insulin aspart U-100 (NOVOLOG) 100 unit/mL (3 mL) Inject 18 Units subcutaneously three times daily before meals. Plus sliding scale. TDD 84 units/day. insulin degludec (TRESIBA) 200 unit/mL (3 mL) injection Inject 116 Units subcutaneously every morning. Insulin [place], Disposable, (UNIFINE PENTIPS) 31 gauge x 3/16 Use as directed 4 times daily with insulin lisinopril (ZESTRIL) 10 mg tablet Take 1 tablet by mouth once daily. metFORMIN (GLUCOPHAGE) 1,000 mg tablet Take 1 tablet by mouth twice daily. mupirocin (BACTROBAN) 2 % ointment Apply to affected area every 12 hours as needed (rash, skin lesions). Oral Medication Containers (SHARPS CONTAINER) [facility] [place] as directed. peg 3350-Electrolytes (GOLYTELY) 236-22.74-6.74 -5.86 gram suspension Take by mouth one time only. polyethylene glycol 3350 (MIRALAX) 17 gram/dose powder 1 capful daily in the morning TRULICITY 4.5 mg/0.5 mL pen injector Inject 4.5 mg subcutaneously one time a week. Objective: Exam: Last 3 Encounter BP Readings: Date: BP: 09/17/2022 114/57 09/17/2022 123/70 07/24/2022 134/80 Wt: 90.7 kg (200 lb) BMI: 30.41 kg/(m^2) LABS: Reviewed Lab Results Component Value Date HBA1C 12.2 07/24/2022 HBA1C 11.4 04/25/2022 HBA1C 10.9 12/20/2021 HBA1C 11.2 08/14/2021 HBA1C 12.1 05/09/2021 HBA1C 10.3 08/05/2020 CMP: Glucose 172 07/24/2022 BUN 8 07/24/2022 Creatinine, Whole Blood (iSTAT) 0.50 07/24/2022 Sodium 142 07/24/2022 Potassium 4.2 07/24/2022 Chloride 105 07/24/2022 CO2 27 07/24/2022 Protein, Total 7.1 07/24/2022 Albumin 4.1 07/24/2022 Calcium 9.3 07/24/2022 Alkaline Phosphatase 87 07/24/2022 Bilirubin, Total 0.7 07/24/2022 AST 17 07/24/2022 ALT 13 07/24/2022 eGFR >60 Lab Results Component Value Date CHOL 193 07/24/2022 CHOL 205 05/09/2021 LDL 126 07/24/2022 LDL 127 05/09/2021 HDL 48 07/24/2022 HDL 54 05/09/2021 TG 95 07/24/2022 TG 120 05/09/2021 The 10-year ASCVD risk score (Latasha CORADO, et al., 2019) is: 12.4% Values used to calculate the score: Age: 56 years Sex: Female Is Non- : Yes Diabetic: Yes Tobacco smoker: No Systolic Blood Pressure: 123 mmHg Is BP treated: Yes HDL Cholesterol: 48 mg/dL Total Cholesterol: 193 mg/dL Albumin/Creat Ratio (mg/g) Date Value 07/24/2022 31 (H) PHARMACOTHERAPY ASSESSMENT/PLAN: 1. Uncontrolled type 2 diabetes mellitus with hyperglycemia (HCC) - ICD9: 250.02, ICD10: E11.65 A1c goal < 7%; uncontrolled (last A1c 12.2%); CGM report shows poor control though patient had been without insulin during this time; previously patient had been injecting all insulins into scar tissue in abdomen because she couldn't feel it; since last PharmD visit she started rotating injection sites and avoiding that area and started having frequent low Bgs, likely due to better insulin absorption; will tell patient to restart insulin at 1/2 the previous dose, close f/up for soonest available appt at the end of October; renal fxn and LFTs sufficient for use RESTART insulins at reduced doses Tresiba 80 units once daily Novolog 10 units + SSI TIDAC CONTINUE metformin 1000mg BID and Trulicity 4.5mg weekly PharmD will call pharmacy to check on status of Trulicity, will be due for next shot on Saturday Advised to scan CGM more HbA1c: due 10/22, lab ordered Appointment was cut short, patient was strongly advised to go downstairs and be seen by urgent careASAP for her back pain. She denied any alarm sx. She agreed to go. Follow-up Patient is scheduled to see PCP team on 11/05. Patient to have f/up with PharmD team on 11/15. Patient verbalized understanding of instructions. Shayan Martinez PharmD, [facility] Primary Care Clinical Pharmacist The majority of the pharmacy visit (> 50%) was spent counseling and/or coordinating care for thepatient. interaction: face to face time was 15 minutes. * Shayan Martinez RPh - 10/18/2022 9:00 AM EDT [facility] called [facility], spoke with pharmacist who said Trulicity was in stock and would get med filled today. PharmBean called patient back and informed her to belt picker medication later today or this week. Shayan Martinez PharmD, [place] [place] Primary Care Clinical Pharmacist documented in this encounterGlenbeigh Hospital03-30-2023 Instructions* Patient Instructions* Shayan Martinez RPh - 10/18/2022 9:00 AM EDT RESTART your insulins. Take Tresiba 80 units once daily. Take Novolog 10 units + sliding scale up to three times daily with meals. Scan your CGM reader more frequently. Go to urgent care now for your back pain. documented in this encounterGlenbeigh Hospital03-13-2023 Miscellaneous Notes* Telephone Encounter - Fabiana Cook LPN - 10/01/2022 2:48 PM EDT Patient has been identified by name and date of : Patient phones for refill(s): Requested Prescriptions Pending Prescriptions Disp Refills lisinopril (ZESTRIL) 10 mg tablet [Pharmacy Med Name: lisinopril 10 mg tablet] 90 tablet 3 Sig: Take 1 tablet by mouth once daily. Date of last office visit in primary care: 07/24/22 Last 2 Encounter Wt Readings: Date: Wt: 07/24/2022 90.7 kg (200 lb) 06/24/2022 91.5 kg (201 lb 12.8 oz) Previous labs/tests for medication: Not applicable Please advise. Thank you. Fabiana Cook LPN documented in this encounterGlenbeigh Hospital03-08-2023 Miscellaneous Notes* Telephone Encounter - Pippa De La Rosa LPN - 09/26/2022 1:23 PM EST Shira--07/24/22 Nov--11/05/22 Last refill--09/29/21 90 with 3 refills Last labs--07/24/22 documented in this encounterGlenbeigh Hospital02-27-2023 NoteHNO ID: [id number] Author: Olya Garcia RN Service: Nursing Author Type: Registered Nurse Type: Nursing Progress Note Filed: 09/17/2022 8:36 AM Note Text: Pre op blood sugar 326. Dr. Salmon aware. 4 units regular insulin ordered.[id number] Miscellaneous Notes* Telephone Encounter - Shayan Martinez RPh - 09/13/2022 10:03 AM EST During PharmD visit today, patient stated she needed a new sharps container. Order pended for PCP'ssignature. Requested Prescriptions Pending Prescriptions Disp Refills Oral Medication Containers (SHARPS CONTAINER) misc 1 Each 0 Sig: Use to collect sharps as directed. Shayan Martinez RPh documented in this encounterGlenbeigh Hospital02-23-2023 History of Present illness Narrative* Shayan Martinez RPh - 09/13/2022 9:00 AM EST Primary Care Pharmacy Visit CC (Reason for Consult): Diabetes Goal: A1c < 7% Collaborating Provider: Dr. Zheng Last Provider Visit: 07/24/22 Lina Isaac is a 56 year old female presenting for follow up visit in person. Patient consentsto pharmacy collaborative practice agreement. Patient is presenting today for f/up pharmacotherapy management appointment for diabetes. At last PharmD visit on 06/21, minimal SMBGs to review and patient refused med changes so dietary modifications encouraged. At last PROFESSOR OF PHYSICS appt, patient seen for influenza concerns. At last PCP appt, gabapentin was started for neuropathy. Subjective: HPI: States she has 6 doctor's appt today. Forgot [employer]i. States sugars are reasonable but tend to running high. Usually in the 300s throughout the day. Having a hard time getting them down. Reports she is taking all of her meds every day, not missing any doses. Has had some issues getting Trulicity. She has 3 pens at home. Taking her medicine. States she was told she may not be able to get her supply next month. Patient feels tired a lot. I just feel ugh all day. States she has been more on top of her medications over the past 3 weeks as a result though not feeling much better. Waking up every 1-2 hours nightly. Admits that she never really cared much about her diabetes because she felt fine, but it isbothering her now that she isn't feeling good. Stores insulin in the fridge in garage, in the door. Denies any chance that the insulin has frozen over at some point. States is injecting insulin only in her right side of belly in her ostomy scar because she can't feel the needles. Not doing any priming doses. Changing the needle every time. Needs a new sharps container. Current DM Medications: Metformin 1000mg BID Dulaglutide (Trulicity) 4.5mg weekly - Sundays Insulin degludec (Tresiba) 102 units QAM Insulin aspart (Novolog) 20 units TIDAC + SSI (usually getting 3 meals/day; says if her pre-meal sugar is 70-170, she will NOT give Novolog because her sugars have dropped in the past, though this hasn't been happening recently) 200-230 = add 2 units 230-260 = add 4 units 260-300 = add 6 units >300 = add 8 units GLYCEMIC CONTROL: Glucometer present at visit: No SMBG s: reported FBG today was 309 mg/dL Hypoglycemia: none Preventative Medications: On JANNIE/ARB: Yes On Statin: Yes ROS: Patient denies CP, SOB, GRIER, blurred vision, dizziness or lightheadedness Patient denies symptoms of hypoglycemia (sweating, anxiety, palpitations, hunger, and tremor) Patient denies symptoms of hyperglycemia (polyuria, polydipsia, polyphagia) Patient denies potential medication adverse effects DIET/EXERCISE/SOCIAL Hx: I miss bread - white wheat NOT reviewing nutrition labels. Doesn't feel confident in knowing what foods raise BG Breakfast: 1-2 pieces of sausage and egg; 8 oz glass OJ (~26g carbs); sometimes will eat a whole plain bagel with butter and either jelly or a small amount of sugar Lunch: yesterday had leftover spaghetti (whole wheat noodles), sauce, cheese, with hamburger in sauce Dinner: sometimes skips; last night had chili (hamburger, black beans, white beans, tomato juice, chili powder) with soda crackers (3 crackers) Snacks: none Beverages: water; OJ with breakfast; Sprite zero 1 can daily MEDICATIONS: Pill bottles are not present Adherence: denies missed doses Pharmacy: [facility] ([facility]) [facility] Affordability: no issues Diabetes supplies: Hoppit System: none, lost her pill box ACTIVE PROBLEM LIST Peripheral neuropathy Pain in Limb Incisional Hernia, Without Obstruction Or Gangrene Diabetes Mellitus Type 2 in Obese (Hcc) Low Hdl (Under 40) Gerd (Gastroesophageal Reflux Disease) Essential Hypertension Obesity Trigger Ring Finger of Left Hand Type 2 Diabetes Mellitus With Peripheral Neuropathy (Hcc) Incisional Hernia Dyslipidemia Closed Nondisplaced Fracture of Proximal Phalanx of Lesser Toe of Left Foot With Routine Healing Post-Covid Chronic Dyspnea Shortness of Breath Persistent Cough Restless Leg Arthralgia Muscle Ache Wheezing Paresthesias Hyperlipidemia, Mixed Uncontrolled Type 2 Diabetes Mellitus With Hyperglycemia (Hcc) Generalized Abdominal Pain Chronic Constipation Obesity, Class I, Bmi 30-34.9 Vitamin D Deficiency Fatigue Screening for Osteoporosis Vitamin B12 Deficiency PAST MEDICAL HISTORY Diagnosis Date Asthma Bowel perforation 11/05/2012 C. difficile colitis 04/2016 Closed nondisplaced fracture of proximal phalanx of lesser toe of left foot with routine healing 10/07/2019 COVID-19 03/30/2021 Diabetes mellitus type 2 in obese (HCC) 10/2013 A1C 6.8% Dyslipidemia 01/02/2019 Essential hypertension 08/11/2015 GERD (gastroesophageal reflux disease) Incisional hernia 06/26/2013 Injury to rectosigmoid colon 10/17/2012 Low HDL (under 40) 10/2013 Nephrolithiasis Osteoarthrosis, unspecified whether generalized or localized, other specified sites Osteoarthritis Bilateral knees Spasm of muscle Tobacco use disorder quit 2012 Unspecified hereditary and idiopathic peripheral neuropathy Vaginal fistula 11/27/2012 ALLERGIES Allergen Reactions Lac Hydrin [Other] Dried her feet Omnicef [Cefdinir] Itching Vaginitis severe Proventil [Albutero* Vomiting Can not tolerate generic albuterol 08/22/12 - MEM. Tramadol Hives Medication List Medication Directions Comments Action/Plan albuterol (PROVENTIL) 2.5 mg /3 mL (0.083 %) nebulizer solution Use 3 mL via nebulizer every 4 hours as needed for Wheezing/Shortness of Breath. Use over 5-15minutes. albuterol HFA (VENTOLIN HFA) 90 mcg/actuation inhaler Inhale 2 Puffs as instructed every 4 hours asneeded. For wheezing/shortness of breath. alcohol swabs (BD SINGLE USE SWABS REGULAR) Use as directed 4 to 5 times daily to check blood sugars and with insulin injections aspirin, enteric coated (ASPIRIN, ENTERIC COATED) 81 mg EC tablet Take 1 tablet by mouth once daily. atorvastatin (LIPITOR) 40 mg tablet Take 1 tablet by mouth once daily. blood sugar diagnostic ([employer] PRECISION JEREMIAS STRIPS) test strip Use to test blood sugar up to twice daily as instructed. Dx: insulin-dependent DM Calcium Citrate-Vitamin D3 (CITRACAL+D) 315 mg-6.25 mcg (250 unit) tab Take 1 tablet by mouth once daily. Cholecalciferol, Vitamin D3, 125 mcg (5,000 unit) cap Take 1 capsule by mouth once daily. cyanocobalamin (VITAMIN B-12) 1,000 mcg tab Take 2 tablets by mouth once daily. diclofenac (VOLTAREN ARTHRITIS PAIN) 1 % topical gel Apply 2 g to affected area four times daily. divalproex DR (DEPAKOTE) 125 mg EC tablet TAKE 1 TABLET BY MOUTH TWICE DAILY divalproex DR (DEPAKOTE) 250 mg EC tablet TAKE 1 TABLET BY MOUTH TWICE DAILY famotidine (PEPCID) 20 mg tablet Take 1 tablet by mouth twice daily. flash glucose scanning reader ([employer] MICHI 14 DAY READER) misc Use to test blood sugar as directed. flash glucose sensor (FREESTYLE MICHI 14 DAY SENSOR) kit Apply sensor to back of arm to check bloodsugars as directed. Change sensor every 2 weeks and rotate arms. gabapentin (NEURONTIN) 100 mg capsule Take 1-2 capsules by mouth daily at bedtime for 30 days. For foot pain glucagon (BAQSIMI) 3 mg/actuation nasal spray Use 1 [place] in the nose as needed for low blood sugar. May repeat after 15 minutes using a new device if there is no response. ibuprofen (MOTRIN) 800 mg tablet Take 1 tablet by mouth every 8 hours as needed for Pain. Take withfood. insulin aspart U-100 (NOVOLOG FLEXPEN U-100 INSULIN) 100 unit/mL (3 mL) Inject 20 Units subcutaneously three times daily before meals. Plus sliding scale. TDD 84 units/day. insulin aspart U-100 (NOVOLOG) 100 unit/mL (3 mL) Inject 18 Units subcutaneously three times daily before meals. Plus sliding scale. TDD 84 units/day. insulin degludec (TRESIBA) 200 unit/mL (3 mL) injection Inject 102 Units subcutaneously every morning. Insulin [place], Disposable, (UNIFINE PENTIPS) 31 gauge x 3/16 Use as directed 4 times daily with insulin lisinopril (ZESTRIL, PRINIVIL) 10 mg tablet Take 1 tablet by mouth once daily. metFORMIN (GLUCOPHAGE) 1,000 mg tablet Take 1 tablet by mouth twice daily. mupirocin (BACTROBAN) 2 % ointment Apply to affected area every 12 hours as needed (rash, skin lesions). polyethylene glycol 3350 (MIRALAX) 17 gram/dose powder 1 capful daily in the morning TRULICITY 4.5 mg/0.5 mL pen injector Inject 4.5 mg subcutaneously one time a week. Objective: Exam: Last 3 Encounter BP Readings: Date: BP: 07/24/2022 134/80 06/24/2022 132/76 06/21/2022 128/78 Wt: 90.7 kg (200 lb) BMI: 30.41 kg/(m^2) LABS: Reviewed Lab Results Component Value Date HBA1C 12.2 07/24/2022 HBA1C 11.4 04/25/2022 HBA1C 10.9 12/20/2021 HBA1C 11.2 08/14/2021 HBA1C 12.1 05/09/2021 HBA1C 10.3 08/05/2020 CMP: Glucose 172 07/24/2022 BUN 8 07/24/2022 Creatinine, Whole Blood (iSTAT) 0.50 07/24/2022 Sodium 142 07/24/2022 Potassium 4.2 07/24/2022 Chloride 105 07/24/2022 CO2 27 07/24/2022 Protein, Total 7.1 07/24/2022 Albumin 4.1 07/24/2022 Calcium 9.3 07/24/2022 Alkaline Phosphatase 87 07/24/2022 Bilirubin, Total 0.7 07/24/2022 AST 17 07/24/2022 ALT 13 07/24/2022 Estimated Creatinine Clearance: 146.2 mL/min (A) (based on SCr of 0.5 mg/dL (L)). Lab Results Component Value Date CHOL 193 07/24/2022 CHOL 205 05/09/2021 LDL 126 07/24/2022 LDL 127 05/09/2021 HDL 48 07/24/2022 HDL 54 05/09/2021 TG 95 07/24/2022 TG 120 05/09/2021 The 10-year ASCVD risk score (Latasha CORADO, et al., 2019) is: 16% Values used to calculate the score: Age: 56 years Sex: Female Is Non- : Yes Diabetic: Yes Tobacco smoker: No Systolic Blood Pressure: 134 mmHg Is BP treated: Yes HDL Cholesterol: 48 mg/dL Total Cholesterol: 193 mg/dL Albumin/Creat Ratio (mg/g) Date Value 07/24/2022 31 (H) PHARMACOTHERAPY ASSESSMENT/PLAN: 1. Uncontrolled type 2 diabetes mellitus with hyperglycemia (HCC) - ICD9: 250.02, ICD10: E11.65 A1c goal < 7%; uncontrolled (last A1c 12.2%); no SMBGs to review but reported readings are elevated >300 mg/dL; patient is not reviewing nutrition labels and still has minimal understanding of carbohydrates and nutrition; she is storing insulin appropriately but is NOT rotating injection sites, doing a priming dose, or holding the needle under the skin for ~8 seconds after injection (otherwise doing appropriate injection technique - confirmed with device demonstration in office today) --> could possibly be impacting the amount of insulin she is getting?; patient historically has issues with med adherence but is adamant that she has been very diligent with meds recently and not missing any doses, particularly over the past 3 weeks; patient admits to being apathetic about DM in thepast because she has felt well, now she is feeling more run down; does have polyuria, no current issues with infections; no concerns for lows; will increase insulin today and focus on education and lifestyle modifications; renal fxn and LFTs sufficient for use INCREASE Tresiba to 116 units daily CONTINUE metformin 1000mg BID, Trulicity 4.5mg weekly, and Novolog 20 units + SSI TIDAC Urged patient to contact PharmD if she has any issues obtaining Trulicity due to the shortage Educated patient to prime insulin prior to every shot, rotate injection sites (and to avoid scar tissue area on right lower abdomen), and to hold needle into skin for 8-10 seconds Advised to contact PharmD if starting having any low BGs Diabetic Education given re: disease pathology, signs of high blood sugar, signs and symptoms and management of hypoglycemia, risks of poor control, diabetic diet with basic carbohydrate counting (given elevated BG, should aim for <30g carbs/meal for time-being) Reviewed how to read nutrition labels, provided 2 Healthy You booklets and a healthy meal planning booklet Stressed the importance of BG control on health, especially long-term Will ask PCP to order sharps container at patient's request ACEi/ARB for renal protection: yes Statin: yes HbA1c: due 10/22/22 Follow-up Patient is scheduled to see PCP team on 11/05. Patient to have f/up with PharmD team on 10/18. Patient verbalized understanding of instructions. Shayan Martinez PharmD, [facility] Primary Care Clinical Pharmacist The majority of the pharmacy visit (> 50%) was spent counseling and/or coordinating care for thepatient. interaction: face to face time was 40 minutes. [facility] Instructions* Patient Instructions* Shayan Martinez RPh - 09/13/2022 9:00 AM EST If you are unable to get Trulicity, PLEASE contact the office to let me know so we can try orderinga different medication. I do NOT want you to go without medication. Rotate injection sites! Please avoid the area in your right lower abdomen near your scar tissue. You can use your belly and upper, out thigh. Make sure to prime the insulin pens prior to each injection. This consists of doing an airshot of~2 units prior to every injection to make sure you will get the full dose of insulin. Start reviewing nutrition labels! Try to limit your carbohydrate intake to < 30 grams per meal. INCREASE Tresiba to 116 units daily. CONTINUE all other medication. documented in this encounterG[facility]02-17-2023 Miscellaneous Notes* Letter - Mammography Coordinator - 09/07/2022 1:18 PM EST September 10, 2022 PID: [id number] Lina Isaac [address] [place] [address] Dear Ms. Isaac, We are pleased to inform you that the results of your recent breast imaging exam on 09/06/2022 are normal. Early detection of cancer is very important. We also understand recommendations regarding breast cancer screening are controversial. Please discuss with your primary care provider which strategy is best for you and whether a mammogram is right for you. Your imaging studies and report will be kept [facility] file [facility] as part of your permanent medical record and are available for your continuing care. Thank you for allowing us to help in meeting your health care needs. Sincerely, Dr. Hinojosa Interpreting Radiologist [facility] (Normal over 40) documented in this encounterGlen[facility]02-16-2023 History of Present illness Narrative* Emma Louis RT(R) - 09/06/2022 11:10 AM EST Radiology Service Progress Note PATIENT NAME: Lina Isaac DATE OF SERVICE: September 06, 2022 TIME: 11:03 AM PATIENT IDENTITY VERIFICATION COMPLETED USING TWO (2) IDENTIFIERS: Name and Date of confirmedby patient verbally. FALL SCREENING: Has the patient had 2 falls in the last year or 1 fall with injury or currently using an Ambulatory Assistive Device (Walker, Cane, Wheelchair, Crutches, etc.)? No PATIENT GENDER DATA: Female. status: : No status: NO. PATIENT RELEVANT IMPLANT DATA REVIEWED: Not Applicable RADIOLOGY DEPARTMENT: Mammography PERIPHERAL IV DATA: Not applicable SIGNED BY: RT Fortunato(R) September 06, 2022 11:03 AM documented in this [facility]02-09-2023 Miscellaneous Notes* Telephone Encounter - Kiah Aldridge LPN - 08/30/2022 12:49 PM EST Patient phones requesting refills as follows: Requested Prescriptions Pending Prescriptions Disp Refills Calcium Citrate-Vitamin D3 (CITRACAL+D) 315 mg-6.25 mcg (250 unit) tab [Pharmacy Med Name: calcium citrate 315 mg calcium-vitamin D3 6.25 mcg (250 unit) tablet] 30 tablet 3 Sig: Take 1 tablet by mouth once daily. SHIRA-07/24/22 Labs-07/24/22 NOV-11/05/22 med filled 03/22/22 Please review and advise. Kiah Aldridge LPN documented in this [facility]02-08-2023 Miscellaneous Notes* Telephone Encounter - Digna Roberts RN - 08/29/2022 11:16 AM EST Pt called in and was asking to have her work excuses printed from when she had Covid last year. Printed letters and brought to medical records for Pt. documented in this encounterG[facility]01-16-2023 Miscellaneous Notes* Telephone Encounter - Pippa De La Rosa LPN - 08/06/2022 11:02 AM EST Shira--07/24/22 Nov--11/05/22 Last refill--03/22/22 6 each with 11 refills Last labs--07/24/22 documented in this encounterG[facility]01-16-2023 Miscellaneous Notes* Telephone Encounter - Pippa De La Rosa LPN - 08/06/2022 10:12 AM EST Shira--07/24/22 Nov--11/05/22 Last refill--10/25/21 60 with 3 Last labs--07/24/22 documented in this encounterG[facility]01-06-2023 Miscellaneous Notes* Telephone Encounter - Faye De Leon Ma - 07/27/2022 1:54 PM EST Last office visit: 07/24/22 F/u scheduled: 11/05/22 Faye De Leon Ma documented in this encounterG[facility]01-[facility]-2023 Miscellaneous Notes* Telephone Encounter - Faye De Leon Ma - 07/27/2022 1:53 PM EST Last office visit: 07/24/22 F/u scheduled: 11/05/22 Faye De Leon Ma documented in this encounterG[facility]01-[facility]23 History of Present illness Narrative* Jese Zheng, - 07/24/2022 9:22 AM EST Patient presents with: F/U 3 Month HPI: Lina Isaac is a 56 year old female who presents to the office today for review of health conditions. Concerns today: Abdominal pain, has been seeing Dr. Ramirez, will have EGD and colonoscopy in Aug by specialist. Heis concerned about possible scar tissue from previous procedures. Comes and goes. Unsure of specific food triggers. Tingling of feet, worse at night, has peripheral neuropathy, sometimes keeps her awake from sleep Taking Tresiba once a day in AM as prescribed, taking Novolog with meals and her trulicity once a week. Struggling with still being in the 200s for glucose readings. Not controlled yet. Will be seeing Pharmacist as well upcoming. Just had labs drawn today. Ms. Isaac has past history of diabetes. Since our last visit she denies excessive thirst or increased frequency of urination, chest pain or dyspnea , new or unusual visual symptoms, and low sugar/hypoglycemic reactions. Depression- no. Follows a diabetic diet most of the time. She is compliant with medication(s) and is tolerating med(s) without any side effects. She reports checking her glucose on a CGM basis schedule with sugars in the fasting 200s range. Patient's last HgA1C was Hemoglobin A1C (%) Date Value 04/25/2022 11.4 12/20/2021 10.9 08/14/2021 11.2 05/09/2021 12.1 ) Last Ophthalmology exam was within the past 12 months Ms. Isaac reports history of hyperlipidemia. Current therapy includes atorvastatin (Lipitor) 40 mg.Denies side effects of muscle weakness or achiness. Her most recent lipid panels are reviewed. Cholesterol, Total (mg/dL) Date Value 04/25/2022 213 05/09/2021 205 HDL Cholesterol (mg/dL) Date Value 04/25/2022 48 05/09/2021 54 LDL Cholesterol (mg/dL) Date Value 04/25/2022 144 05/09/2021 127 Triglyceride (mg/dL) Date Value 04/25/2022 106 05/09/2021 120 Ms. Isaac indicates a history of hypertension and states that she is feeling well and denies any symptoms referable to elevated blood pressure. Specifically denies headache, chest pain, palpitations,dyspnea, and peripheral edema. Patient denies any side effects of her medication(s) and is compliant with their regimen. Last 3 Encounter BP Readings: Date: BP: 07/24/2022 134/80 06/24/2022 132/76 06/21/2022 128/78 She watches her diet for sodium, low fat and low cholesterol some of the time. She does not check BP's generally. Lina is more or less sedentary occasionally exercising in the form of walking. PAST MEDICAL HISTORY Diagnosis Date Asthma Bowel perforation 11/05/2012 C. difficile colitis 04/2016 Closed nondisplaced fracture of proximal phalanx of lesser toe of left foot with routine healing 10/07/2019 COVID-19 03/30/2021 Diabetes mellitus type 2 in obese (HCC) 10/2013 A1C 6.8% Dyslipidemia 01/02/2019 Essential hypertension 08/11/2015 GERD (gastroesophageal reflux disease) Incisional hernia 06/26/2013 Injury to rectosigmoid colon 10/17/2012 Low HDL (under 40) 10/2013 Nephrolithiasis Osteoarthrosis, unspecified whether generalized or localized, other specified sites Osteoarthritis Bilateral knees Spasm of muscle Tobacco use disorder quit 2012 Unspecified hereditary and idiopathic peripheral neuropathy Vaginal fistula 11/27/2012 PAST SURGICAL HISTORY Procedure Laterality Date DELIVERY ONLY 1986 , low cervical DELIVERY ONLY 2001 , low transverse COLONOSCOPY 08/16/15 Dr. Ramirez HERNIA REPAIR HX 06/22/13 HYSTERECTOMY HX 2011 fistula with intestine HYSTEROSCOPY, DIAGNOSTIC (SEPARATE Hysteroscopy/Novasure LAP HYSTERECTOMY FOR UTERUS 250G OR LESS 10/09/2012 with vaginal sling, LSO, right salpingectomy LAPS ABD PRTM&OMENTUM DX W/WO SPEC BR/WA SPX Laparoscopy LAPS REPAIR HERNIA EXCEPT INCAL/INGUN REDUCIBLE 05/2017 LIG/TRNSXJ FLP TUBE ABDL/VAG APPR UNI/BI 2001 Tubal ligation PAST SURGICAL HISTORY OF 01/30/05 Left shoulder arthroscopy and debridement PAST SURGICAL HISTORY OF 02/22 3rd toe left foot PAST SURGICAL HISTORY OF 03/14/2010 right total knee replacement PAST SURGICAL HISTORY OF 03/14/2009 left total knee replacement PAST SURGICAL HISTORY OF 01/23/2013 Ileostomy closure. PAST SURGICAL HISTORY OF Left 01-06-16 left ring trigger release RPR 1ST INCAL/VNT HERNIA INCARCERATED 06/22/2013 at ileostomy site - 11x[address] \mesh RPR RECRT INCAL/VNT HERNIA INCARCERATED 07/23/14 at midline' RPR RECRT INCAL/VNT HERNIA INCARCERATED 10/11/14 - recurrent small bowel resection, enterotomy Social History Tobacco Use Smoking status: Former Packs/day: 0.50 Years: 24.00 Pack years: 12.00 Types: Cigarettes Quit date: 05/13/2013 Years since quittin.2 Smokeless tobacco: Never Vaping Use Vaping Use: Never used Substance Use Topics Alcohol use: No Drug use: No FAMILY HISTORY Problem Relation Age of Onset Hypertension Mother Diabetes Mother Cancer Maternal Uncle throat cancer Hypertension Sister Diabetes Sister other (hyperlipidemia) Sister Allergies: ALLERGIES Allergen Reactions Lac Hydrin [Other] Dried her feet Omnicef [Cefdinir] Itching Vaginitis severe Proventil [Albutero* Vomiting Can not tolerate generic albuterol 08/22/12 - MEM. Tramadol Hives Current Meds: TRULICITY 4.5 mg/0.5 mL pen injector Inject 4.5 mg subcutaneously one time a week. diclofenac (VOLTAREN ARTHRITIS PAIN) 1 % topical gel Apply 2 g to affected area four times daily. insulin aspart U-100 (NOVOLOG FLEXPEN U-100 INSULIN) 100 unit/mL (3 mL) Inject 20 Units subcutaneously three times daily before meals. Plus sliding scale. TDD 84 units/day. insulin aspart U-100 (NOVOLOG) 100 unit/mL (3 mL) Inject 18 Units subcutaneously three times daily before meals. Plus sliding scale. TDD 84 units/day. mupirocin (BACTROBAN) 2 % ointment Apply to affected area every 12 hours as needed (rash, skin lesions). glucagon (BAQSIMI) 3 mg/actuation nasal spray Use 1 [place] in the nose as needed for low blood sugar. May repeat after 15 minutes using a new device if there is no response. Cholecalciferol, Vitamin D3, 125 mcg (5,000 unit) cap Take 1 capsule by mouth once daily. cyanocobalamin (VITAMIN B-12) 1,000 mcg tab Take 2 tablets by mouth once daily. famotidine (PEPCID) 20 mg tablet Take 1 tablet by mouth twice daily. calcium citrate-vitamin D3 (CITRACAL+D) 315 mg-5 mcg (200 unit) tab Take 1 tablet by mouth once daily. atorvastatin (LIPITOR) 40 mg tablet Take 1 tablet by mouth once daily. insulin degludec (TRESIBA) 200 unit/mL (3 mL) injection Inject 102 Units subcutaneously every morning. flash glucose sensor (FREESTYLE MICHI 14 DAY SENSOR) kit Apply sensor to back of arm to check bloodsugars as directed. Change sensor every 2 weeks and rotate arms. aspirin, enteric coated (ASPIRIN, ENTERIC COATED) 81 mg EC tablet Take 1 tablet by mouth once daily. alcohol swabs (BD SINGLE USE SWABS REGULAR) Use as directed 4 to 5 times daily to check blood sugars and with insulin injections divalproex DR (DEPAKOTE) 125 mg EC tablet TAKE 1 TABLET BY MOUTH TWICE DAILY divalproex DR (DEPAKOTE) 250 mg EC tablet TAKE 1 TABLET BY MOUTH TWICE DAILY ibuprofen (MOTRIN) 800 mg tablet Take 1 tablet by mouth every 8 hours as needed for Pain. Take withfood. polyethylene glycol 3350 (MIRALAX) 17 gram/dose powder 1 capful daily in the morning lisinopril (ZESTRIL, PRINIVIL) 10 mg tablet Take 1 tablet by mouth once daily. metFORMIN (GLUCOPHAGE) 1,000 mg tablet Take 1 tablet by mouth twice daily. albuterol HFA (VENTOLIN HFA) 90 mcg/actuation inhaler Inhale 2 Puffs as instructed every 4 hours asneeded. For wheezing/shortness of breath. blood sugar diagnostic (FREESTYLE PRECISION JEREMIAS STRIPS) test strip Use to test blood sugar up to twice daily as instructed. Dx: insulin-dependent DM Insulin [place], Disposable, (UNIFINE PENTIPS) 31 gauge x 3/16 Use as directed 4 times daily with insulin flash glucose scanning reader (FREESTYLE MICHI 14 DAY READER) [facility] Use to test blood sugar as directed. albuterol (PROVENTIL) 2.5 mg /3 mL (0.083 %) nebulizer solution Use 3 mL via nebulizer every 4 hours as needed for Wheezing/Shortness of Breath. Use over 5-15minutes. Review of Systems: The remainder of the review of systems is negative. PE: 07/24/22 0853 BP: 134/80 Pulse: 88 Resp: 20 Temp: 36.2 C (97.2 F) TempSrc: Left Tympanic Weight: 90.7 kg (200 lb) Gen: A&O, NAD, non-toxic appearing, Pleasant, cooperative HEENT: NT/AC, PERRLA, EOMs intact b/l, wearing glasses, nares clear and patent b/l, pharynx withouterythema, exudate or lesions. Uvula midline. MMM, EACs without erythema or debris. TMs pearly julien with intact landmarks b/l. Neck: supple, No cervical LAD, no thyromegaly, no carotid bruits CV: RRR, normal S1 and S2, no murmurs, no gallops, no rubs, Pulses 2+ and symmetric in UE and LE b/l Lungs: normal respiratory effort, CTA b/l, no wheezing or rhonchi or rales Abd: soft, overweight, mild epigastric TTP without r/g/r, ND, +BS, no hepatosplenomegaly MS: FROM all 4 extremities Neuro: CN II-XII intact b/l, strength 5/5 b/l UE and LE, DTRs 2/4 UE and LE, sensation intact. Skin: warm, dry, intact, No rashes or lesions on exposed skin. Foot exam: Monofilament abnormal on right and left feet. ASSESSMENT/PLAN: 1. Type 2 diabetes mellitus with diabetic polyneuropathy, with long-term current use of insulin (HCC) - ICD9: 250.60, 357.2, V58.67, ICD10: E11.42, Z79.4 (primary diagnosis) uncontrolled improved control - Continue current medications - Check HgA1C, fasting glucose, and fasting lipid panel - Blood glucose monitoring on a CGM schedule - Encouraged regular aerobic exercise and weight loss - ALBUMIN/CREAT RATIO RND UR 2. Encounter for screening mammogram for malignant neoplasm of breast - ICD9: V76.12, ICD10: Z12.31 - Set up for mammogram, yearly mammogram recommended - Encouraged monthly BSE - CHANTELL SCREENING - CHANTELL SCREENING W CAROLYN 3. Need for pneumococcal 20-valent conjugate vaccination - ICD9: , ICD10: Z23 - PNEUMOCOCCAL VACCINE (PREVNAR 20) 4. Need for shingles vaccine - ICD9: V04.89, ICD10: Z23 - ZOSTER VACC RECOMBINANT,IM 5. Type 2 diabetes mellitus with peripheral neuropathy (HCC) - ICD9: 250.60, 357.2, ICD10: E11.42 uncontrolled - Continue current medications - add on Gabapentin for foot pain at bedtime 6. Other polyneuropathy - ICD9: 357.89, ICD10: G62.89 Add on prn gabapentin at bedtime for foot pain, sees business communications instructor regularly - GABAPENTIN 100 MG CAPSULE 7. Influenza A - ICD9: 487.1, ICD10: J10.1 - improved symptoms 8. Generalized abdominal pain - ICD9: 789.07, ICD10: R10.84 Follow up with specialist for EGD and colonoscopy 9. Obesity, Class I, BMI 30-34.9 - ICD9: 278.00, ICD10: E66.9 Stable - Behavioral intervention Jese Zheng DO To ER if develops chest pain, shortness of breath, or severe worsening of symptoms. Discussed risks, benefits, alternatives, and potential side effects of medications. Patient expressed understanding and agreed with the plan. Jese Zheng DO [address] [place] [address] documented in this encounterGlen[facility]12-19-2022 Miscellaneous Notes* Telephone Encounter - Fabiana Cook LPN - 07/09/2022 4:54 PM EST Patient has been identified by name and date of : Yes Patient phones for refill(s): Requested Prescriptions Pending Prescriptions Disp Refills TRULICITY 4.5 mg/0.5 mL pen injector [Pharmacy Med Name: Trulicity 4.5 mg/0.5 mL subcutaneous pen injector] 4 mL 3 Sig: Inject 4.5 mg subcutaneously one time a week. Date of last office visit in primary care: 06/25/22 Last 2 Encounter Wt Readings: Date: Wt: 06/24/2022 91.5 kg (201 lb 12.8 oz) 05/29/2022 93.9 kg (207 lb) Previous labs/tests for medication: Not applicable Please advise. Thank you. Fabiana Cook LPN documented in this encounterGlen[facility] Hospital12-09-2022 Miscellaneous Notes* Telephone Encounter - Fabiana Cook LPN - 06/29/2022 2:14 PM EST Patient has been identified by name and date of : Yes Patient phones for refill(s): Requested Prescriptions Pending Prescriptions Disp Refills diclofenac (VOLTAREN ARTHRITIS PAIN) 1 % topical gel 100 g 1 Sig: Apply 2 g to affected area four times daily. Date of last office visit in primary care: 06/25/22 Last 2 Encounter Wt Readings: Date: Wt: 06/24/2022 91.5 kg (201 lb 12.8 oz) 05/29/2022 93.9 kg (207 lb) Previous labs/tests for medication: Not applicable Please advise. Thank you. Fabiana Cook LPN documented in this encounterGlenbeigh [facility]12-05-2022 History of Present illness Narrative* Ankita Green APRN.PROFESSOR OF PHYSICS - 06/25/2022 10:40 AM EST VIRTUAL VISIT PROGRESS NOTE This is a virtual visit using [employer] video visit. It required patient-provider interaction for themedical decision making as documented below. Lina Isaac is a 56 year old female seen for influenza concerns. Today: Dx with influenza A yesterday, sx for 5 days. Feels like sx are getting worse. Is moving to chest. Has chills. Temp 101 despite ibuprofen. Headache. Coughing so hard is urinating herself. Does have pulse ox at home-was recently 89%. Feels SOB when up and moving as well as coughing. HISTORY REVIEWED (electronic chart updated): PAST MEDICAL HISTORY Diagnosis Date Asthma Bowel perforation 11/05/2012 C. difficile colitis 04/2016 Closed nondisplaced fracture of proximal phalanx of lesser toe of left foot with routine healing 10/07/2019 COVID-19 03/30/2021 Diabetes mellitus type 2 in obese (HCC) 10/2013 A1C 6.8% Dyslipidemia 01/02/2019 Essential hypertension 08/11/2015 GERD (gastroesophageal reflux disease) Incisional hernia 06/26/2013 Injury to rectosigmoid colon 10/17/2012 Low HDL (under 40) 10/2013 Nephrolithiasis Osteoarthrosis, unspecified whether generalized or localized, other specified sites Osteoarthritis Bilateral knees Spasm of muscle Tobacco use disorder quit 2012 Unspecified hereditary and idiopathic peripheral neuropathy Vaginal fistula 11/27/2012 PAST SURGICAL HISTORY Procedure Laterality Date DELIVERY ONLY 1986 , low cervical DELIVERY ONLY 2001 , low transverse COLONOSCOPY 08/16/15 Dr. Ramirez HERNIA REPAIR HX 06/22/13 HYSTERECTOMY HX 2011 fistula with intestine HYSTEROSCOPY, DIAGNOSTIC (SEPARATE Hysteroscopy/Novasure LAP HYSTERECTOMY FOR UTERUS 250G OR LESS 10/09/2012 with vaginal sling, LSO, right salpingectomy LAPS ABD PRTM&OMENTUM DX W/WO SPEC BR/WA SPX Laparoscopy LAPS REPAIR HERNIA EXCEPT INCAL/INGUN REDUCIBLE 05/2017 LIG/TRNSXJ FLP TUBE ABDL/VAG APPR UNI/BI 2001 Tubal ligation PAST SURGICAL HISTORY OF 01/30/05 Left shoulder arthroscopy and debridement PAST SURGICAL HISTORY OF 02/22 3rd toe left foot PAST SURGICAL HISTORY OF 03/14/2010 right total knee replacement PAST SURGICAL HISTORY OF 03/14/2009 left total knee replacement PAST SURGICAL HISTORY OF 01/23/2013 Ileostomy closure. PAST SURGICAL HISTORY OF Left 01-06-16 left ring trigger release RPR 1ST INCAL/VNT HERNIA INCARCERATED 06/22/2013 at ileostomy site - 11x[address] \mesh RPR RECRT INCAL/VNT HERNIA INCARCERATED 07/23/14 at midline' RPR RECRT INCAL/VNT HERNIA INCARCERATED 10/11/14 - recurrent small bowel resection, enterotomy FAMILY HISTORY Problem Relation Age of Onset Hypertension Mother Diabetes Mother Cancer Maternal Uncle throat cancer Hypertension Sister Diabetes Sister other (hyperlipidemia) Sister Social History Tobacco Use Smoking status: Former Packs/day: 0.50 Years: 24.00 Pack years: 12.00 Types: Cigarettes Quit date: 05/13/2013 Years since quittin.1 Smokeless tobacco: Never Vaping Use Vaping Use: Never used Substance Use Topics Alcohol use: No Drug use: No Current Outpatient Medications Medication Sig insulin aspart U-100 (NOVOLOG FLEXPEN U-100 INSULIN) 100 unit/mL (3 mL) Inject 20 Units subcutaneously three times daily before meals. Plus sliding scale. TDD 84 units/day. insulin aspart U-100 (NOVOLOG) 100 unit/mL (3 mL) Inject 18 Units subcutaneously three times daily before meals. Plus sliding scale. TDD 84 units/day. mupirocin (BACTROBAN) 2 % ointment Apply to affected area every 12 hours as needed (rash, skin lesions). diclofenac (VOLTAREN ARTHRITIS PAIN) 1 % topical gel Apply 2 g to affected area four times daily. glucagon (BAQSIMI) 3 mg/actuation nasal spray Use 1 [place] in the nose as needed for low blood sugar. May repeat after 15 minutes using a new device if there is no response. Cholecalciferol, Vitamin D3, 125 mcg (5,000 unit) cap Take 1 capsule by mouth once daily. cyanocobalamin (VITAMIN B-12) 1,000 mcg tab Take 2 tablets by mouth once daily. famotidine (PEPCID) 20 mg tablet Take 1 tablet by mouth twice daily. calcium citrate-vitamin D3 (CITRACAL+D) 315 mg-5 mcg (200 unit) tab Take 1 tablet by mouth once daily. atorvastatin (LIPITOR) 40 mg tablet Take 1 tablet by mouth once daily. insulin degludec (TRESIBA) 200 unit/mL (3 mL) injection Inject 102 Units subcutaneously every morning. flash glucose sensor ([employer] MICHI 14 DAY SENSOR) kit Apply sensor to back of arm to check bloodsugars as directed. Change sensor every 2 weeks and rotate arms. aspirin, enteric coated (ASPIRIN, ENTERIC COATED) 81 mg EC tablet Take 1 tablet by mouth once daily. dulaglutide (TRULICITY) 4.5 mg/0.5 mL pen injector Inject 4.5 mg subcutaneously one time a week. alcohol swabs (BD SINGLE USE SWABS REGULAR) Use as directed 4 to 5 times daily to check blood sugars and with insulin injections divalproex DR (DEPAKOTE) 125 mg EC tablet TAKE 1 TABLET BY MOUTH TWICE DAILY divalproex DR (DEPAKOTE) 250 mg EC tablet TAKE 1 TABLET BY MOUTH TWICE DAILY ibuprofen (MOTRIN) 800 mg tablet Take 1 tablet by mouth every 8 hours as needed for Pain. Take withfood. polyethylene glycol 3350 (MIRALAX) 17 gram/dose powder 1 capful daily in the morning lisinopril (ZESTRIL, PRINIVIL) 10 mg tablet Take 1 tablet by mouth once daily. metFORMIN (GLUCOPHAGE) 1,000 mg tablet Take 1 tablet by mouth twice daily. albuterol HFA (VENTOLIN HFA) 90 mcg/actuation inhaler Inhale 2 Puffs as instructed every 4 hours asneeded. For wheezing/shortness of breath. blood sugar diagnostic ([employer]YLE PRECISION JEREMIAS STRIPS) test strip Use to test blood sugar up to twice daily as instructed. Dx: insulin-dependent DM Insulin [place], Disposable, (UNIFINE PENTIPS) 31 gauge x 3/16 Use as directed 4 times daily with insulin flash glucose scanning reader (FREESTYLE MICHI 14 DAY READER) [facility] [place] to test blood sugar as directed. albuterol (PROVENTIL) 2.5 mg /3 mL (0.083 %) nebulizer solution Use 3 mL via nebulizer every 4 hours as needed for Wheezing/Shortness of Breath. Use over 5-15minutes. No current facility-administered medications for this visit. ALLERGIES Allergen Reactions Lac Hydrin [Other] Dried her feet Omnicef [Cefdinir] Itching Vaginitis severe Proventil [Albutero* Vomiting Can not tolerate generic albuterol 08/22/12 - MEM. Tramadol Hives REVIEW OF SYSTEMS: All other ROS: negative As noted in HPI PHYSICAL EXAMINATION: VIDEO EXAM: (if completed, performed via video enabled technology) Ill-appearing, nontoxic ASSESSMENT: (J10.1) Influenza A (primary encounter diagnosis) (R05.3) Persistent cough (R50.9) Fever, unspecified fever cause PLAN: Begin mucinex twice daily x14 days. Codeine with guaifenesin prn. Continue supportive care. Rest. Continue to monitor SpO2-discussed if sustains 90% or less to go to ED. Discussed red flag s/s. If persists or worsens in the next 5-7 days, consider chest xray and/or antibiotic. PDMP website checked and validated. All prescriptions have been APPROPRIATELY filled. No suspiciousactivity was identified. 06/25/2022 by Ankita Green CNP. Ankita Green APRN.PROFESSOR OF PHYSICS documented in this encounterGlenbeigh Hospital12-01-2022 History of Present illness Narrative* Shayan Juan, [facility] - 06/21/2022 9:00 AM EST Images from the original note were not included. Primary Care Pharmacy Visit CC (Reason for Consult): Diabetes Goal: A1c < 7% Collaborating Provider: Dr. Zheng Last Provider Visit: 05/21 Lina Isaac is a 56 year old female presenting for follow up visit in person. Patient consentsto pharmacy collaborative practice agreement. Patient is presenting today for f/up pharmacotherapy management appointment for diabetes. At last PharmD visit on 03/22, insulin dose adjustments made, patient encouraged to reduce sodium consumption, and advised to restart statin. At last PCP appt, no med changes made. At PROFESSOR OF PHYSICS visit on 05/21, patientwas seen for lower back pain. Subjective: HPI: Here today with grandchildren (4 mo and 16 mo), slightly distracted during visit. 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 Reports being adherent with medications. Feels sugars are doing well. Having more energy. Her kids are trying to bring in healthier food into the house. Denies recent UTIs or yeast infections. No drymouth or thirst. No vision changes or numbness/tingling. Had some issues getting sensors, just applied new sensor yesterday. Was using fingerstick. Diet notgreat around . Current DM Medications: Metformin 1000mg BID Dulaglutide (Trulicity) 4.5mg weekly - Sundays Insulin degludec (Tresiba) 102 units QAM Insulin aspart (Novolog) 20 units TIDAC + SSI (will give based of 10 units + SSI if having a snack) 200-230 = add 2 units 230-260 = add 4 units 260-300 = add 6 units >300 = add 8 units GLYCEMIC CONTROL: Glucometer present at visit: Yes SMBG s: Date Fasting AM 2 hr PP Before Lunch 2 hr PP Before Dinner 2 hr PP Bedtime 06/12 108 224 05/19 232 Hypoglycemia: none Preventative Medications: On JANNIE/ARB: Yes On Statin: Yes ROS: Patient denies CP, SOB, GRIER, blurred vision, dizziness or lightheadedness Patient denies symptoms of hypoglycemia (sweating, anxiety, palpitations, hunger, and tremor) Patient denies symptoms of hyperglycemia (polyuria, polydipsia, polyphagia) Patient denies potential medication adverse effects DIET/EXERCISE/SOCIAL Hx: Breakfast: had sausage and egg today Lunch: salad Dinner: crustless pizza Snacks: banana, orange Beverages: water; has 1-2 cans regular Sprite Working to limit sodium intake; not cooking with it MEDICATIONS: Pill bottles are not present Adherence: denies missed doses Pharmacy: [facility] in [place] (med sync) Rx coverage: [employer] Affordability: no issues Diabetes supplies: Hoppit System: none, lost her pill box ACTIVE PROBLEM LIST Unspecified Hereditary and Idiopathic Peripheral Neuropathy Pain in Limb Incisional Hernia, Without Obstruction Or Gangrene Diabetes Mellitus Type 2 in Obese (Hcc) Low Hdl (Under 40) Gerd (Gastroesophageal Reflux Disease) Essential Hypertension Obesity Trigger Ring Finger of Left Hand Uncontrolled Type 2 Diabetes Mellitus With Polyneuropathy Incisional Hernia Dyslipidemia Closed Nondisplaced Fracture of Proximal Phalanx of Lesser Toe of Left Foot With Routine Healing Post-Covid Chronic Dyspnea Shortness of Breath Persistent Cough Restless Leg Arthralgia Muscle Ache Wheezing Paresthesias Hyperlipidemia, Mixed Uncontrolled Type 2 Diabetes Mellitus With Hyperglycemia (Hcc) Generalized Abdominal Pain Chronic Constipation Obesity, Class I, Bmi 30-34.9 Vitamin D Deficiency Fatigue Screening for Osteoporosis Vitamin B12 Deficiency PAST MEDICAL HISTORY Diagnosis Date Asthma Bowel perforation 11/05/2012 C. difficile colitis 04/2016 Closed nondisplaced fracture of proximal phalanx of lesser toe of left foot with routine healing 10/07/2019 COVID-19 03/30/2021 Diabetes mellitus type 2 in obese (HCC) 10/2013 A1C 6.8% Dyslipidemia 01/02/2019 Essential hypertension 08/11/2015 GERD (gastroesophageal reflux disease) Incisional hernia 06/26/2013 Injury to rectosigmoid colon 10/17/2012 Low HDL (under 40) 10/2013 Nephrolithiasis Osteoarthrosis, unspecified whether generalized or localized, other specified sites Osteoarthritis Bilateral knees Spasm of muscle Tobacco use disorder quit 2012 Unspecified hereditary and idiopathic peripheral neuropathy Vaginal fistula 11/27/2012 ALLERGIES Allergen Reactions Lac Hydrin [Other] Dried her feet Omnicef [Cefdinir] Itching Vaginitis severe Proventil [Albutero* Vomiting Can not tolerate generic albuterol 08/22/12 - MEM. Tramadol Hives Medication List Medication Directions Comments Action/Plan albuterol (PROVENTIL) 2.5 mg /3 mL (0.083 %) nebulizer solution Use 3 mL via nebulizer every 4 hours as needed for Wheezing/Shortness of Breath. Use over 5-15minutes. albuterol HFA (VENTOLIN HFA) 90 mcg/actuation inhaler Inhale 2 Puffs as instructed every 4 hours asneeded. For wheezing/shortness of breath. alcohol swabs (BD SINGLE USE SWABS REGULAR) Use as directed 4 to 5 times daily to check blood sugars and with insulin injections aspirin, enteric coated (ASPIRIN, ENTERIC COATED) 81 mg EC tablet Take 1 tablet by mouth once daily. atorvastatin (LIPITOR) 40 mg tablet Take 1 tablet by mouth once daily. blood sugar diagnostic (FREESTYLE PRECISION JEREMIAS STRIPS) test strip Use to test blood sugar up to twice daily as instructed. Dx: insulin-dependent DM calcium citrate-vitamin D3 (CITRACAL+D) 315 mg-5 mcg (200 unit) tab Take 1 tablet by mouth once daily. Cholecalciferol, Vitamin D3, 125 mcg (5,000 unit) cap Take 1 capsule by mouth once daily. cyanocobalamin (VITAMIN B-12) 1,000 mcg tab Take 2 tablets by mouth once daily. diclofenac (VOLTAREN ARTHRITIS PAIN) 1 % topical gel Apply 2 g to affected area four times daily. divalproex DR (DEPAKOTE) 125 mg EC tablet TAKE 1 TABLET BY MOUTH TWICE DAILY divalproex DR (DEPAKOTE) 250 mg EC tablet TAKE 1 TABLET BY MOUTH TWICE DAILY dulaglutide (TRULICITY) 4.5 mg/0.5 mL pen injector Inject 4.5 mg subcutaneously one time a week. enteric contrast (will be provided with radiology test) Take 1 Each by mouth one time only for [address] ABD/PEL WO Routine order Administer, As Directed One Time Only, via Oral, Rectal, both Oral and Rectal, Enteric Tube, Stoma or Indwelling Catheter, Enteric Contrast as designated per enteric contrast guidelines famotidine (PEPCID) 20 mg tablet Take 1 tablet by mouth twice daily. flash glucose scanning reader (FREESTYLE MICHI 14 DAY READER) [facility] [place] Use to test blood sugar as directed. flash glucose sensor (FREESTYLE MICHI 14 DAY SENSOR) kit Apply sensor to back of arm to check bloodsugars as directed. Change sensor every 2 weeks and rotate arms. glucagon (BAQSIMI) 3 mg/actuation nasal spray Use 1 [place] in the nose as needed for low blood sugar. May repeat after 15 minutes using a new device if there is no response. ibuprofen (MOTRIN) 800 mg tablet Take 1 tablet by mouth every 8 hours as needed for Pain. Take withfood. insulin aspart U-100 (NOVOLOG FLEXPEN U-100 INSULIN) 100 unit/mL (3 mL) Inject 20 Units subcutaneously three times daily before meals. Plus sliding scale. TDD 84 units/day. insulin aspart U-100 (NOVOLOG) 100 unit/mL (3 mL) Inject 18 Units subcutaneously three times daily before meals. Plus sliding scale. TDD 84 units/day. insulin degludec (TRESIBA) 200 unit/mL (3 mL) injection Inject 102 Units subcutaneously every morning. Insulin [place], Disposable, (UNIFINE PENTIPS) 31 gauge x 3/16 Use as directed 4 times daily with insulin lisinopril (ZESTRIL, PRINIVIL) 10 mg tablet Take 1 tablet by mouth once daily. metFORMIN (GLUCOPHAGE) 1,000 mg tablet Take 1 tablet by mouth twice daily. mupirocin (BACTROBAN) 2 % ointment Apply to affected area every 12 hours as needed (rash, skin lesions). polyethylene glycol 3350 (MIRALAX) 17 gram/dose powder 1 capful daily in the morning Objective: Exam: VITALS: 06/21/22 0916 06/21/22916 BP: 136/80 128/78 Pulse: 111 108 Last 3 Encounter BP Readings: Date: BP: 05/21/2022 130/82 05/20/2022 144/84 04/27/2022 140/80 Wt: 92.4 kg (203 lb 9.6 oz) BMI: 30.96 kg/(m^2) LABS: Reviewed Lab Results Component Value Date HBA1C 11.4 04/25/2022 HBA1C 10.9 12/20/2021 HBA1C 11.2 08/14/2021 HBA1C 12.1 05/09/2021 HBA1C 10.3 08/05/2020 CMP: Glucose 152 04/25/2022 BUN 6 04/25/2022 Creatinine, Whole Blood (iSTAT) 0.49 04/25/2022 Sodium 139 04/25/2022 Potassium 3.8 04/25/2022 Chloride 106 04/25/2022 CO2 26 04/25/2022 Protein, Total 6.8 04/25/2022 Albumin 3.9 04/25/2022 Calcium 9.2 04/25/2022 Alkaline Phosphatase 88 04/25/2022 Bilirubin, Total 0.9 04/25/2022 AST 14 04/25/2022 ALT 11 04/25/2022 Estimated Creatinine Clearance: 151.8 mL/min (A) (based on SCr of 0.49 mg/dL (L)). Lab Results Component Value Date CHOL 213 04/25/2022 CHOL 205 05/09/2021 LDL 144 04/25/2022 LDL 127 05/09/2021 HDL 48 04/25/2022 HDL 54 05/09/2021 TG 106 04/25/2022 TG 120 05/09/2021 The 10-year ASCVD risk score (Latasha CORADO, et al., 2019) is: 17.4% Values used to calculate the score: Age: 56 years Sex: Female Is Non- : Yes Diabetic: Yes Tobacco smoker: No Systolic Blood Pressure: 134 mmHg Is BP treated: Yes HDL Cholesterol: 48 mg/dL Total Cholesterol: 213 mg/dL Albumin/Creat Ratio (mg/g) Date Value 05/09/2021 58 (H) PHARMACOTHERAPY ASSESSMENT/PLAN: 1. Uncontrolled type 2 diabetes mellitus with hyperglycemia (HCC) - ICD9: 250.02, ICD10: E11.65 (primary diagnosis) A1c goal < 7%; uncontrolled (last A1c 11.4%); minimal SMBG to review but majority of readings are elevated; patient denies lows or sx high Bgs; reporting adherence to meds but acknowledges she could do better with diet; patient refused insulin dose adjustments today, would prefer to f/up in ~1 month after getting serious about her diet; renal fxn and LFTs sufficient for use CONTINUE current regimen Stressed the importance of BG control on [facility] health and longevity Encouraged trying to get all Bgs <100 mg/dL Advised to stop drinking Sprite HbA1c: due 07/26/22 2. Essential hypertension - ICD9: 401.9, ICD10: I10 BP goal < 140/90; controlled but HR elevated today, no palpitations, SOB, or other sx; denies dizziness or light-headedness; patient trying to limit sodium intake; renal fxn and K+ sufficient for use CONTINUE lisinopril 10mg daily Encouraged dietary sodium restriction/DASH diet Recommended no refined sugar, low refined starch, healthy oil intake (olive oil), healthy protein (fish) along the lines of the Mediterranean diet Follow-up Patient is scheduled to see PCP team on 07/24/22. Patient to have f/up with PharmD team on 1/12/23. Patient verbalized understanding of instructions. Shayan [place], PharmD, [facility] Primary Care Clinical Pharmacist The majority of the pharmacy visit (> 50%) was spent counseling and/or coordinating care for thepatient. interaction: face to face time was 20 minutes. documented in this encounterGlenbeigh Hospital11-09-2022 Miscellaneous Notes* Telephone Encounter - Shayan Martinez RPh - 05/30/2022 10:08 AM EST Patient cancelled PharmD appt on 05/24. PharmD called to reschedule. Spoke with patient and rescheduled for tomorrow at 2 PM. Shayan Martinez PharmD, [facility] Primary Care Clinical Pharmacist documented in this encounterGlenbeigh Hospital11-08-2022 Instructions* Patient Instructions* Brandy Ramirez MD - 05/29/2022 6:53 PM EST Images from the original note were not included. Bowel Preparation Instructions for: Golytely, Nulytely, Trilyte or Colyte (polyethylene glycol 3350and electrolytes) IF YOU DO NOT FOLLOW THESE DIRECTIONS, YOUR COLONOSCOPY WILL BE CANCELLED. Alberto Instructions: Your bowel must be empty so that your doctor can clearly view your colon. Follow all of the instructions in this handout EXACTLY as they are written. Do NOT eat any solid food the ENTIRE day before your colonoscopy. Drink only clear liquids. Buy your bowel preparation at least 5 days before your colonoscopy. TRANSPORTATION on the Day of Your Exam A responsible person MUST be present with you at Check In prior to your colonoscopy and REMAIN in the endoscopy area until you are discharged. You are NOT ALLOWED to drive, take a taxi or bus, or leave the Endoscopy Center ALONE. If you do not have a responsible public transit bus driver (family member or friend) with you to take you home, your exam cannot be done with sedation and will be cancelled. Please bring a list of all of your current medications, including any Over-the Counter medications with you. Medications If you take insulin, diabetic medications or blood thinners such as Coumadin (warfarin), Plavix (clopidogrel), Ticlid (ticlopidine hydrochloride), Agrylin (anagrelide), Xarelto (Rivaroxaban), Pradaxa(Dabigatran), Eliquis (Apixaban), and Effient (Prasugrel). You MUST call the doctors who orders those medicines for instructions on altering the dosage before your colonoscopy. All other medications should be taken the day of the exam with a sip of water including ASPIRIN. Five (5) Days Before Your Colonoscopy Do NOT take medicines that stop diarrhea - such as Imodium, Kaopectate, or Pepto Bismol. Do NOT take fiber supplements - such as Metamucil, Citrucel, or Perdiem. Do NOT take products that contain iron - such as multi-vitamins (the label lists what is in the products). Do NOT take Vitamin E. Buy the prescription bowel preparation solution at your local pharmacy or drugstore pharmacy. 06/2019 Bowel Preparation Instructions for: Golytely, Nulytely, Trilyte or Colyte (polyethylene glycol 3350and electrolytes) Three (3) Days Before Your Colonoscopy Do NOT eat high-fiber foods - such as popcorn, beans, seeds (flax, sunflower, quinoa), multigrain bread, nuts, salad/vegetables, or fresh and dried fruit. One (1) Day Before Your Colonoscopy Only drink clear liquids the ENTIRE DAY before your colonoscopy. Do NOT eat any solid foods. Drink at least 8 ounces of clear liquids every hour after waking up. The clear liquids you can drink include: Clear Liquid (NO RED LIQUIDS) DO NOT DRINK Gatorade, Pedialyte or Powerade Clear broth or bouillon Coffee or tea (no milk or non-dairy creamer) Carbonated and non-carbonated soft drinks Antonio-Aid or other fruit flavored drinks Strained fruit juices (no pulp) Jell-O, popsicles, hard candy Water Alcohol Milk or non-dairy creamers Noodles or vegetables in soup Juice with pulp Liquid you cannot see through Do not use tobacco/vaping products The bowel preparation solution will be consumed in two parts. Mix the solution the evening before your colonoscopy and refrigerate before drinking. You may add the flavor pack that came with the bowel preparation. Do NOT add ice, sugar or any other flavorings to the solution. Part 1 At 6:00 PM - Evening before your colonoscopy Drink an 8-oz glass of bowel preparation every 10 minutes for a total of 8 glasses. You may continue to drink clear liquids until midnight. Part 2 On the day of your colonoscopy you may drink clear liquids up to (three) 3 hours before your procedure. 4 1/2 hours before your colonoscopy Drink an 8-oz glass of bowel preparation every 10 minutes for a total of 8 glasses. Fifteen (15) minutes later, drink an 8-oz glass of clear liquids every 15 minutes for a total of 2 glasses. You may continue to drink clear liquids up to (three) 3 hours before your exam. 2 06/2019 [facility] History of Present illness Narrative* Brandy Ramirez MD - 05/29/2022 6:43 PM EST HISTORY AND PHYSICAL Lina Del Angel Poncho 1965 REFERRING PHYSICIAN: CHIEF COMPLAINT: abdomen and right sided pain HPI: The patient is a 56 year old female referred for endoscopy. Lina notes she tripped and fell at home against a baby gate/partition. With her history of multiple incisional hernia repairs she states she normally tries not to fall directly on her abdomen. She was unable to rotate and landed against her anterior abdomen 2 weeks previously. She initially noted the pain was more in the periumbilical area but now seems to be more severe over the past 2 weeks and now tends to radiate back to her right flank area. The patient was taking multiple nonsteroidals approximately 100 mg at a time with only mild relief. The patient now notes that she has more diffuse complaints she notes nausea and vomiting. The vomiting is yellow without being blood-tinged. She notes that she is also having discomfort attempting tomove her bowels notes painful bowel movements and has been passing flatus. She notes worsening constipation has been taking lots of MiraLAX. She initially denied signs of blood or dark stools but realizes and now admits that she really does not examine her stools. Lina has undergone prior endoscopy. She last underwent upper and lower endoscopy in 2015. Due to her symptoms a CT scan of the abdomen pelvis was obtained. This demonstrated no acute changes. The patient is being seen by me today at the request of Dr. Jese Zheng DO for my opinion and advice regarding abdominal pain after a fall, epigastric complaints change in bowel habits constipation. PAST MEDICAL HISTORY Diagnosis Date Asthma Bowel perforation 11/05/2012 C. difficile colitis 04/2016 Closed nondisplaced fracture of proximal phalanx of lesser toe of left foot with routine healing 10/07/2019 COVID-19 03/30/2021 Diabetes mellitus type 2 in obese (HCC) 10/2013 A1C 6.8% Dyslipidemia 01/02/2019 Essential hypertension 08/11/2015 GERD (gastroesophageal reflux disease) Incisional hernia 06/26/2013 Injury to rectosigmoid colon 10/17/2012 Low HDL (under 40) 10/2013 Nephrolithiasis Osteoarthrosis, unspecified whether generalized or localized, other specified sites Osteoarthritis Bilateral knees Spasm of muscle Tobacco use disorder quit 2012 Unspecified hereditary and idiopathic peripheral neuropathy Vaginal fistula 11/27/2012 PAST SURGICAL HISTORY Procedure Laterality Date DELIVERY ONLY 1986 , low cervical DELIVERY ONLY 2001 , low transverse COLONOSCOPY 08/16/15 Dr. Ramirez HERNIA REPAIR HX 06/22/13 HYSTERECTOMY HX 2011 fistula with intestine HYSTEROSCOPY, DIAGNOSTIC (SEPARATE Hysteroscopy/Novasure LAP HYSTERECTOMY FOR UTERUS 250G OR LESS 10/09/2012 with vaginal sling, LSO, right salpingectomy LAPS ABD PRTM&OMENTUM DX W/WO SPEC BR/WA SPX Laparoscopy LAPS REPAIR HERNIA EXCEPT INCAL/INGUN REDUCIBLE 05/2017 LIG/TRNSXJ FLP TUBE ABDL/VAG APPR UNI/BI 2001 Tubal ligation PAST SURGICAL HISTORY OF 01/30/05 Left shoulder arthroscopy and debridement PAST SURGICAL HISTORY OF 02/22 3rd toe left foot PAST SURGICAL HISTORY OF 03/14/2010 right total knee replacement PAST SURGICAL HISTORY OF 03/14/2009 left total knee replacement PAST SURGICAL HISTORY OF 01/23/2013 Ileostomy closure. PAST SURGICAL HISTORY OF Left 01-06-16 left ring trigger release RPR 1ST INCAL/VNT HERNIA INCARCERATED 06/22/2013 at ileostomy site - 11x[address] \mesh RPR RECRT INCAL/VNT HERNIA INCARCERATED 07/23/14 at midline' RPR RECRT INCAL/VNT HERNIA INCARCERATED 10/11/14 - recurrent small bowel resection, enterotomy Current Outpatient Medications Medication Sig insulin aspart U-100 (NOVOLOG FLEXPEN U-100 INSULIN) 100 unit/mL (3 mL) Inject 20 Units subcutaneously three times daily before meals. Plus sliding scale. TDD 84 units/day. insulin aspart U-100 (NOVOLOG) 100 unit/mL (3 mL) Inject 18 Units subcutaneously three times daily before meals. Plus sliding scale. TDD 84 units/day. mupirocin (BACTROBAN) 2 % ointment Apply to affected area every 12 hours as needed (rash, skin lesions). diclofenac (VOLTAREN ARTHRITIS PAIN) 1 % topical gel Apply 2 g to affected area four times daily. glucagon (BAQSIMI) 3 mg/actuation nasal spray Use 1 [place] in the nose as needed for low blood sugar. May repeat after 15 minutes using a new device if there is no response. Cholecalciferol, Vitamin D3, 125 mcg (5,000 unit) cap Take 1 capsule by mouth once daily. cyanocobalamin (VITAMIN B-12) 1,000 mcg tab Take 2 tablets by mouth once daily. famotidine (PEPCID) 20 mg tablet Take 1 tablet by mouth twice daily. calcium citrate-vitamin D3 (CITRACAL+D) 315 mg-5 mcg (200 unit) tab Take 1 tablet by mouth once daily. atorvastatin (LIPITOR) 40 mg tablet Take 1 tablet by mouth once daily. insulin degludec (TRESIBA) 200 unit/mL (3 mL) injection Inject 102 Units subcutaneously every morning. flash glucose sensor (FREESTYLE MICHI 14 DAY SENSOR) kit Apply sensor to back of arm to check bloodsugars as directed. Change sensor every 2 weeks and rotate arms. aspirin, enteric coated (ASPIRIN, ENTERIC COATED) 81 mg EC tablet Take 1 tablet by mouth once daily. dulaglutide (TRULICITY) 4.5 mg/0.5 mL pen injector Inject 4.5 mg subcutaneously one time a week. alcohol swabs (BD SINGLE USE SWABS REGULAR) Use as directed 4 to 5 times daily to check blood sugars and with insulin injections divalproex DR (DEPAKOTE) 125 mg EC tablet TAKE 1 TABLET BY MOUTH TWICE DAILY divalproex DR (DEPAKOTE) 250 mg EC tablet TAKE 1 TABLET BY MOUTH TWICE DAILY ibuprofen (MOTRIN) 800 mg tablet Take 1 tablet by mouth every 8 hours as needed for Pain. Take withfood. polyethylene glycol 3350 (MIRALAX) 17 gram/dose powder 1 capful daily in the morning lisinopril (ZESTRIL, PRINIVIL) 10 mg tablet Take 1 tablet by mouth once daily. metFORMIN (GLUCOPHAGE) 1,000 mg tablet Take 1 tablet by mouth twice daily. albuterol HFA (VENTOLIN HFA) 90 mcg/actuation inhaler Inhale 2 Puffs as instructed every 4 hours asneeded. For wheezing/shortness of breath. blood sugar diagnostic ([employer] AnalyticsSTYLE PRECISION JEREMIAS STRIPS) test strip Use to test blood sugar up to twice daily as instructed. Dx: insulin-dependent DM Insulin [place], Disposable, (UNIFINE PENTIPS) 31 gauge x 3/16 Use as directed 4 times daily with insulin flash glucose scanning reader ([employer] AnalyticsSTYLE MICHI 14 DAY READER) [facility] [place] to test blood sugar as directed. albuterol (PROVENTIL) 2.5 mg /3 mL (0.083 %) nebulizer solution Use 3 mL via nebulizer every 4 hours as needed for Wheezing/Shortness of Breath. Use over 5-15minutes. No current facility-administered medications for this visit. ALLERGIES: Lac Hydrin [Other], Omnicef [Cefdinir], Proventil [Albuterol Sulfate], and Tramadol PERSONAL HISTORY: Social History Tobacco Use Smoking status: Former Packs/day: 0.50 Years: 24.00 Pack years: 12.00 Types: Cigarettes Quit date: 05/13/2013 Years since quittin.0 Smokeless tobacco: Never Vaping Use Vaping Use: Never used Substance Use Topics Alcohol use: No Drug use: No FAMILY HISTORY: FAMILY HISTORY Problem Relation Age of Onset Hypertension Mother Diabetes Mother Cancer Maternal Uncle throat cancer Hypertension Sister Diabetes Sister other (hyperlipidemia) Sister REVIEW OF SYMPTOMS: The review of systems data was entered by the nurse and reviewed by me There are no exam notes on file for this visit. PHYSICAL EXAMINATION: General: The patient is 56 year old female, well nourished, well hydrated in no acute distress. Thepatient is oriented to time, place, and person. VITALS: Blood pressure 134/78, pulse 107, temperature 36.4 C (97.5 F), weight 93.9 kg (207 lb), last menstrual period 08/30/2012, SpO2 98 %. Body mass index is 31.47 kg/m . HEENT: Normal cephalic, ataumatic, pupils are equally round, sclera are anicteric, mucous membranesare moist, oropharynx is clear. Neck has no masses, asymmetry or lymphadenopathy. Thyroid is unremarkable. Respiratory: Clear to auscultation and percussion. Normal respiratory excursion and pattern. Cardiac: Examination is regular rate and rhythm. Abdominal exam: Soft, mild diffusely tender with maximal tenderness to the right of midline. No bruising no obvious asymmetry or masses. Multiple adhesions consistent with her prior hernia repairs ileostomy and other surgical procedures, with no palpable masses. No hepatosplenomegaly. No palpable hernias. Rectal exam: exam deferred Extremities: no clubbing, cyanosis or edema. No adenopathy. Other: LABORATORY VALUES: As Noted RADIOLOGIC STUDIES: As Noted Assessment IMPRESSION: abdominal pain after a fall, epigastric complaints change in bowel habits constipation. PLAN: I plan to perform upper and lower endoscopy. We discussed the risks and benefits of the planned endoscopy. I have informed the patient that complications can occur including failure to completethe endoscopy and perforation. The patient had the opportunity to ask questions concerning the planned endoscopy. My staff has also explained the procedure to the patient in understandable terms and has given the patient printed material concerning the procedure. The patient freely consents to surgery. I plan to use golytely bowel preparation for endoscopy I plan for monitored anesthetic care. Diagnoses: (R10.9) Abdominal pain, unspecified abdominal location (primary encounter diagnosis) (R19.4) Change in bowel habits My findings have been communicated to Dr. Jese Zheng DO via shared medical record. This note will be forwarded to Dr. Jese Zheng DO. Return to Clinic: The patient is instructed to follow-up with me after the testing has been completed. Brandy Ramirez MD [facility] History of Present illness Narrative* Chichi Mckeon, RT(R) - 05/24/2022 3:00 PM EDT Radiology Service Progress Note PATIENT NAME: Lina Isaac DATE OF SERVICE: May 24, 2022 TIME: 3:47 PM PATIENT IDENTITY VERIFICATION COMPLETED USING TWO (2) IDENTIFIERS: Name and Date of confirmedby patient verbally. FALL SCREENING: Has the patient had 2 falls in the last year or 1 fall with injury or currently using an Ambulatory Assistive Device (Walker, Cane, Wheelchair, Crutches, etc.)? No PATIENT GENDER DATA: Female. status: : No status: NO. PATIENT RELEVANT IMPLANT DATA REVIEWED: Yes RADIOLOGY DEPARTMENT: CT; Exam(s) Completed: Abdomen/Pelvis PERIPHERAL IV DATA: Not applicable SIGNED BY: RT Rodney(R) May 24, 2022 3:47 PM documented in [facility]10-31-[facility] History of Present illness Narrative* Ankita Green APRN.CARLITOS - 05/21/2022 12:47 PM EDT Images from the original note were not included. Chief Complaint Patient presents with: Low Back Pain: Right sided x 5 days HPI Lina Isaac is a 56 year old female who presents here today for Above Complaints.. Per appointment with Kanwal Campbell CNP in urgent care yesterday 05/20/2022: Subjective The history is provided by the patient. No multi disciplined language analyst was used. HPI Lina Isaac is a 56 year old female who presents today for CC of right sided lower back pain that is gradually worsening. It started 2 days ago. She denies any burning urgency or frequency with urination The pain down not radiate down leg, no pain with movement, pain will wrap around side.H/o kidney stones in past. She is a diabetic. BP 144/84 Pulse 78 Temp 36.1 C (97 F) Resp 16 Wt 94.3 kg (208 lb) LMP 08/30/2012 SpO2 100% BMI 31.63 kg/m SOCIAL HISTORY Social History Tobacco Use Smoking status: Former Packs/day: 0.50 Years: 24.00 Pack years: 12.00 Types: Cigarettes Quit date: 05/13/2013 Years since quittin.0 Smokeless tobacco: Never Vaping Use Vaping Use: Never used Substance Use Topics Alcohol use: No Drug use: No PAST MEDICAL HISTORY PAST MEDICAL HISTORY Diagnosis Date Asthma Bowel perforation 11/05/2012 C. difficile colitis 04/2016 Closed nondisplaced fracture of proximal phalanx of lesser toe of left foot with routine healing 10/07/2019 COVID-19 03/30/2021 Diabetes mellitus type 2 in obese (HCC) 10/2013 A1C 6.8% Dyslipidemia 01/02/2019 Essential hypertension 08/11/2015 GERD (gastroesophageal reflux disease) Incisional hernia 06/26/2013 Injury to rectosigmoid colon 10/17/2012 Low HDL (under 40) 10/2013 Nephrolithiasis Osteoarthrosis, unspecified whether generalized or localized, other specified sites Osteoarthritis Bilateral knees Spasm of muscle Tobacco use disorder quit 2012 Unspecified hereditary and idiopathic peripheral neuropathy Vaginal fistula 11/27/2012 I have confirmed and edited as necessary, the [facility] Review of Systems Constitutional: Negative for chills and fever. Gastrointestinal: Negative for abdominal pain, nausea and vomiting. Genitourinary: Positive for flank pain. Negative for dysuria, frequency, hematuria and urgency. Musculoskeletal: Positive for back pain. Objective Physical Exam Vitals and nursing note reviewed. Constitutional: Appearance: Normal appearance. Abdominal: General: Bowel sounds are normal. There is no abdominal bruit. Palpations: Abdomen is not rigid. There is no mass or pulsatile mass. Tenderness: There is no abdominal tenderness. There is no guarding or rebound. Negative signs include Alvarez's sign and McBurney's sign. Musculoskeletal: Cervical back: Normal. Thoracic back: Normal. Back: Neurological: Mental Status: She is alert and oriented to person, place, and time. Psychiatric: Mood and Affect: Affect normal. Component Latest Ref Rng & Units 05/20/2022 GLUCOSE UA (POCT) Negative mg/dL >=1000 (A) BILIRUBIN UA (POCT) Negative Negative KETONE UA (POCT) Negative mg/dL Trace SPECIFIC GRAVITY UA (POCT) 1.005 - 1.030 1.020 HEMOGLOBIN/BLOOD UA (POCT) Negative Trace-intact (A) PH UA (POCT) 4.5 - 8.0 5.5 PROTEIN UA (POCT) Negative mg/dL Negative UROBILINOGEN UA (POCT) Normal E.U./dL 0.2 NITRITE UA (POCT) Negative Negative LEUKOCYTES UA (POCT) Negative Negative COLOR UA (POCT) Yellow CLARITY UA (POCT) Clear ASSESSMENT/PLAN: 1. Acute right-sided low back pain without sciatica - ICD9: 724.2, ICD10: M54.50 Possible stone, musculoskeletal Tylenol prn Will send urine for culture, no antibiotic Advise to go to ED for worsening pain, if still present in the morning, patient scheduled for follow up with PCP for further evaluation - UA DIP, URINE (POC) - URINE CULTURE Kanwal Campbell APRN.PROFESSOR OF PHYSICS Today: Right side flank that comes around the right side into her RUQ, has been present for 5 days. She did fall 7 days ago. Did not knowingly fall on her back. Fell to left knee, right elbow. Hx kidney stones. Hurts worse than that. No urinary sx at all. +nausea, vomited yesterday r/t pain, no appetite. Salty taste in mouth, thick saliva. Bowels-chronic constipation. Hadn't had BM x4 days, but had large soft stool this morning, which isnormal for her. Past medical history, appointments, medications, allergies reviewed. Previous Medical History PAST MEDICAL HISTORY Diagnosis Date Asthma Bowel perforation 11/05/2012 C. difficile colitis 04/2016 Closed nondisplaced fracture of proximal phalanx of lesser toe of left foot with routine healing 10/07/2019 COVID-19 03/30/2021 Diabetes mellitus type 2 in obese (HCC) 10/2013 A1C 6.8% Dyslipidemia 01/02/2019 Essential hypertension 08/11/2015 GERD (gastroesophageal reflux disease) Incisional hernia 06/26/2013 Injury to rectosigmoid colon 10/17/2012 Low HDL (under 40) 10/2013 Nephrolithiasis Osteoarthrosis, unspecified whether generalized or localized, other specified sites Osteoarthritis Bilateral knees Spasm of muscle Tobacco use disorder quit 2012 Unspecified hereditary and idiopathic peripheral neuropathy Vaginal fistula 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 Ramirez HERNIA REPAIR HX 06/22/13 HYSTERECTOMY HX 2011 fistula with intestine HYSTEROSCOPY, DIAGNOSTIC (SEPARATE Hysteroscopy/Novasure LAP HYSTERECTOMY FOR UTERUS 250G OR LESS 10/09/2012 with vaginal sling, LSO, right salpingectomy LAPS ABD PRTM&OMENTUM DX W/WO SPEC BR/WA SPX Laparoscopy LAPS REPAIR HERNIA EXCEPT INCAL/INGUN REDUCIBLE 05/2017 LIG/TRNSXJ FLP TUBE ABDL/VAG APPR UNI/BI 2001 Tubal ligation PAST SURGICAL HISTORY OF 01/30/05 Left shoulder arthroscopy and debridement PAST SURGICAL HISTORY OF 02/22 3rd toe left foot PAST SURGICAL HISTORY OF 03/14/2010 right total knee replacement PAST SURGICAL HISTORY OF 03/14/2009 left total knee replacement PAST SURGICAL HISTORY OF 01/23/2013 Ileostomy closure. PAST SURGICAL HISTORY OF Left 6-17-16 left ring trigger release RPR 1ST INCAL/VNT HERNIA INCARCERATED 06/22/2013 at ileostomy site - 11x[address] \mesh RPR RECRT INCAL/VNT HERNIA INCARCERATED 07/23/14 at midline' RPR RECRT INCAL/VNT HERNIA INCARCERATED 10/11/14 - recurrent small bowel resection, enterotomy Family History FAMILY HISTORY Problem Relation Age of Onset Hypertension Mother Diabetes Mother Cancer Maternal Uncle throat cancer Hypertension Sister Diabetes Sister other (hyperlipidemia) Sister Patient Allergies ALLERGIES Allergen Reactions Lac Hydrin [Other] Dried her feet Omnicef [Cefdinir] Itching Vaginitis severe Proventil [Albutero* Vomiting Can not tolerate generic albuterol 08/22/12 - MEM. Tramadol Hives Current Medications Current Outpatient Medications on File Prior to Visit Medication Sig insulin aspart U-100 (NOVOLOG FLEXPEN U-100 INSULIN) 100 unit/mL (3 mL) Inject 20 Units subcutaneously three times daily before meals. Plus sliding scale. TDD 84 units/day. insulin aspart U-100 (NOVOLOG) 100 unit/mL (3 mL) Inject 18 Units subcutaneously three times daily before meals. Plus sliding scale. TDD 84 units/day. mupirocin (BACTROBAN) 2 % ointment Apply to affected area every 12 hours as needed (rash, skin lesions). diclofenac (VOLTAREN ARTHRITIS PAIN) 1 % topical gel Apply 2 g to affected area four times daily. glucagon (BAQSIMI) 3 mg/actuation nasal spray Use 1 [place] in the nose as needed for low blood sugar. May repeat after 15 minutes using a new device if there is no response. Cholecalciferol, Vitamin D3, 125 mcg (5,000 unit) cap Take 1 capsule by mouth once daily. cyanocobalamin (VITAMIN B-12) 1,000 mcg tab Take 2 tablets by mouth once daily. famotidine (PEPCID) 20 mg tablet Take 1 tablet by mouth twice daily. calcium citrate-vitamin D3 (CITRACAL+D) 315 mg-5 mcg (200 unit) tab Take 1 tablet by mouth once daily. atorvastatin (LIPITOR) 40 mg tablet Take 1 tablet by mouth once daily. insulin degludec (TRESIBA) 200 unit/mL (3 mL) injection Inject 102 Units subcutaneously every morning. flash glucose sensor ([employer]STYLE MICHI 14 DAY SENSOR) kit Apply sensor to back of arm to check bloodsugars as directed. Change sensor every 2 weeks and rotate arms. aspirin, enteric coated (ASPIRIN, ENTERIC COATED) 81 mg EC tablet Take 1 tablet by mouth once daily. dulaglutide (TRULICITY) 4.5 mg/0.5 mL pen injector Inject 4.5 mg subcutaneously one time a week. alcohol swabs (BD SINGLE USE SWABS REGULAR) Use as directed 4 to 5 times daily to check blood sugars and with insulin injections ibuprofen (MOTRIN) 800 mg tablet Take 1 tablet by mouth every 8 hours as needed for Pain. Take withfood. polyethylene glycol 3350 (MIRALAX) 17 gram/dose powder 1 capful daily in the morning lisinopril (ZESTRIL, PRINIVIL) 10 mg tablet Take 1 tablet by mouth once daily. metFORMIN (GLUCOPHAGE) 1,000 mg tablet Take 1 tablet by mouth twice daily. albuterol HFA (VENTOLIN HFA) 90 mcg/actuation inhaler Inhale 2 Puffs as instructed every 4 hours asneeded. For wheezing/shortness of breath. blood sugar diagnostic (FREESTYLE PRECISION JEREMIAS STRIPS) test strip Use to test blood sugar up to twice daily as instructed. Dx: insulin-dependent DM Insulin [place], Disposable, (UNIFINE PENTIPS) 31 gauge x 3/16 Use as directed 4 times daily with insulin flash glucose scanning reader ([employer]STYLE MICHI 14 DAY READER) [facility] [place] Use to test blood sugar as directed. albuterol (PROVENTIL) 2.5 mg /3 mL (0.083 %) nebulizer solution Use 3 mL via nebulizer every 4 hours as needed for Wheezing/Shortness of Breath. Use over 5-15minutes. divalproex DR (DEPAKOTE) 125 mg EC tablet TAKE 1 TABLET BY MOUTH TWICE DAILY divalproex DR (DEPAKOTE) 250 mg EC tablet TAKE 1 TABLET BY MOUTH TWICE DAILY No current facility-administered medications on file prior to visit. Social History Social History Tobacco Use Smoking status: Former Packs/day: 0.50 Years: 24.00 Pack years: 12.00 Types: Cigarettes Quit date: 05/13/2013 Years since quittin.0 Smokeless tobacco: Never Vaping Use Vaping Use: Never used Substance Use Topics Alcohol use: No Drug use: No Review of Symptoms REVIEW OF SYSTEMS See HPI, otherwise negative EXAM: BP 130/82 (BP Site: Left Arm, BP Position: Sitting, BP Cuff Size: Regular Adult) Pulse 113 Temp36.3 C (97.3 F) (Temporal) Resp 20 Wt 92.4 kg (203 lb 9.6 oz) LMP 08/30/2012 SpO2 99% BMI30.96 kg/m General Appearance: Well appearing, alert, in no acute distress, well-hydrated, well nourished.. Back:no pain to palpation of vertebrae, good flexion and extension, good range of motion, motor andsensory appear to be normal Lungs: Lungs clear to auscultation. No wheezing, rhonchi, rales.. Heart: RRR without murmur, gallop, or rubs. No ectopy. Abdomen: Normal abdominal exam, Abdomen soft, RUQ tenderness to palpation. Bowel sounds normal. No masses, organomegaly. Health Maintenance List HEPATITIS B(1 of 3 - 3-dose series) Never done PNEUMOCOCCAL(2 - PCV) due on 01/26/2014 DEPRESSION ASSESSMENT Never done COVID-19 VACCINE(4 - Booster for Pfizer series) due on 02/16/2022 URINE ALBUMIN:CREATININE RATIO due on 05/09/2022 SHINGRIX VACCINE(2 of 2) due on 06/22/2022 HBA1C due on 07/26/2022 DIABETIC FOOT EXAM due on 08/14/2022 BP CONTROLLED (<130/80) due on 08/14/2022 MAMMOGRAM due on 08/22/2022 DILATED RETINAL EXAM due on 08/30/2022 LDL CHOLESTEROL due on 04/25/2023 ANNUAL PCP TEAM CHRONIC DISEASE VISIT due on 04/27/2023 DTAP,TDAP,TD(3 - Td or Tdap) due on 01/29/2024 COLORECTAL CANCER SCREENING due on 08/16/2025 INFLUENZA Completed HEPATITIS C SCREENING Completed HIV SCREENING Completed PAP TESTING Discontinued HPV TESTING Discontinued Data reviewed Previous records, office notes ASSESSMENT/PLAN: 1. Right flank pain - ICD9: 789.09, ICD10: R10.9 (primary diagnosis) - KETOROLAC 60 MG/2 ML INTRAMUSCULAR SOLUTION - CT ABD/PEL WO IVCON - ENTERIC CONTRAST (RADIOLOGY PROCEDURE) 2. RUQ pain - ICD9: 789.01, ICD10: R10.11 - KETOROLAC 60 MG/2 ML INTRAMUSCULAR SOLUTION - CT ABD/PEL WO IVCON - ENTERIC CONTRAST (RADIOLOGY PROCEDURE) 3. Chronic RLQ pain - ICD9: 789.03, 338.29, ICD10: R10.31, G89.29 - KETOROLAC 60 MG/2 ML INTRAMUSCULAR SOLUTION - CT ABD/PEL WO IVCON - ENTERIC CONTRAST (RADIOLOGY PROCEDURE) 4. Nausea - ICD9: 787.02, ICD10: R11.0 - KETOROLAC 60 MG/2 ML INTRAMUSCULAR SOLUTION - CT ABD/PEL WO IVCON - ENTERIC CONTRAST (RADIOLOGY PROCEDURE) 5. Nausea and vomiting, unspecified vomiting type - ICD9: 787.01, ICD10: R11.2 - KETOROLAC 60 MG/2 ML INTRAMUSCULAR SOLUTION - CT ABD/PEL WO IVCON - ENTERIC CONTRAST (RADIOLOGY PROCEDURE) Ankita Green APRN.CARLITOS documented in this encounterGlen[facility]10-30-2022 History of Present illness Narrative* Kanwal Campbell APRN.CNP - 05/20/2022 8:39 AM EDT Images from the original note were not included. Subjective The history is provided by the patient. No multi disciplined language analyst was used. NARCISA Isaac is a 56 year old female who presents today for CC of right sided lower back pain that is gradually worsening. It started 2 days ago. She denies any burning urgency or frequency with urination The pain down not radiate down leg, no pain with movement, pain will wrap around side.H/o kidney stones in past. She is a diabetic. BP 144/84 Pulse 78 Temp 36.1 C (97 F) Resp 16 Wt 94.3 kg (208 lb) LMP 08/30/2012 SpO2 100% BMI 31.63 kg/m Social History Tobacco Use Smoking status: Former Packs/day: 0.50 Years: 24.00 Pack years: 12.00 Types: Cigarettes Quit date: 05/13/2013 Years since quittin.0 Smokeless tobacco: Never Vaping Use Vaping Use: Never used Substance Use Topics Alcohol use: No Drug use: No PAST MEDICAL HISTORY Diagnosis Date Asthma Bowel perforation 11/05/2012 C. difficile colitis 04/2016 Closed nondisplaced fracture of proximal phalanx of lesser toe of left foot with routine healing 10/07/2019 COVID-19 03/30/2021 Diabetes mellitus type 2 in obese (HCC) 10/2013 A1C 6.8% Dyslipidemia 01/02/2019 Essential hypertension 08/11/2015 GERD (gastroesophageal reflux disease) Incisional hernia 06/26/2013 Injury to rectosigmoid colon 10/17/2012 Low HDL (under 40) 10/2013 Nephrolithiasis Osteoarthrosis, unspecified whether generalized or localized, other specified sites Osteoarthritis Bilateral knees Spasm of muscle Tobacco use disorder quit 2012 Unspecified hereditary and idiopathic peripheral neuropathy Vaginal fistula 11/27/2012 I have confirmed and edited as necessary, the [facility] Review of Systems Constitutional: Negative for chills and fever. Gastrointestinal: Negative for abdominal pain, nausea and vomiting. Genitourinary: Positive for flank pain. Negative for dysuria, frequency, hematuria and urgency. Musculoskeletal: Positive for back pain. Objective Physical Exam Vitals and nursing note reviewed. Constitutional: Appearance: Normal appearance. Abdominal: General: Bowel sounds are normal. There is no abdominal bruit. Palpations: Abdomen is not rigid. There is no mass or pulsatile mass. Tenderness: There is no abdominal tenderness. There is no guarding or rebound. Negative signs include Alvarez's sign and McBurney's sign. Musculoskeletal: Cervical back: Normal. Thoracic back: Normal. Back: Neurological: Mental Status: She is alert and oriented to person, place, and time. Psychiatric: Mood and Affect: Affect normal. Component Latest Ref Rng & Units 05/20/2022 GLUCOSE UA (POCT) Negative mg/dL >=1000 (A) BILIRUBIN UA (POCT) Negative Negative KETONE UA (POCT) Negative mg/dL Trace SPECIFIC GRAVITY UA (POCT) 1.005 - 1.030 1.020 HEMOGLOBIN/BLOOD UA (POCT) Negative Trace-intact (A) PH UA (POCT) 4.5 - 8.0 5.5 PROTEIN UA (POCT) Negative mg/dL Negative UROBILINOGEN UA (POCT) Normal E.U./dL 0.2 NITRITE UA (POCT) Negative Negative LEUKOCYTES UA (POCT) Negative Negative COLOR UA (POCT) Yellow CLARITY UA (POCT) Clear ASSESSMENT/PLAN: 1. Acute right-sided low back pain without sciatica - ICD9: 724.2, ICD10: M54.50 Possible stone, musculoskeletal Tylenol prn Will send urine for culture, no antibiotic Advise to go to ED for worsening pain, if still present in the morning, patient scheduled for follow up with PCP for further evaluation - UA DIP, URINE (POC) - URINE CULTURE Kanwal Campbell APRN.PROFESSOR OF PHYSICS documented in this encounterGlenbe[facility] Hospital10-12-2022 Miscellaneous Notes* Telephone Encounter - Yoly Mejia LPN - 05/02/2022 1:53 PM EDT Last office visit: 04/27/22 Next appointment scheduled: 07/24/22 Last labs: 04/25/22 Pharmacy calls in requesting the following refill(s): Requested Prescriptions Pending Prescriptions Disp Refills insulin aspart U-100 (NOVOLOG) 100 unit/mL (3 mL) [Pharmacy Med Name: insulin aspart (U-100) 100 unit/mL (3 mL) subcutaneous pen] 75 mL 3 Sig: Inject 18 Units subcutaneously three times daily before meals. Plus sliding scale. TDD 84 units/day. documented in this encounterGlenbeigh Hospital10-12-2022 Miscellaneous Notes* Telephone Encounter - Pippa De La Rosa LPN - 05/02/2022 11:54 AM EDT Shira--04/27/22 Nov-07/24/2022 Last refill--07/06/21 25 pens with 3 refills Last labs--04/27/22 documented in this encounterGlenbeigh Hospital10-07-2022 History of Present illness Narrative* Jese Zheng, DO - 04/27/2022 2:00 PM EDT Chief Complaint Patient presents with: Follow Up HPI Lina Isaac is a 56 year old female who presents here today for medication follow up. Denies any bowel, gi, or urinary issues. Uses Miralax prn. Lipid: Taking Lipitor 40 mg daily. Tolerating well, denies any myalgia or gi upset. GERD: Taking Pepcid 20 mg BID. Sx controlled. HTN: Taking Lisinopril 10 mg daily. No chest pains, dizziness, or SOB. DM: Taking Tresiba 102 units every morning, Trulicity 4.5 mg weekly, Novolog 20 units TID plus sliding scale, and Metformin 1,000 mg 1 pill BID. No hypoglycemic episodes, no neuropathy sx. Has been following with Pharmacist, Shayan Martinez and admits that she has missed some of her doses of her insulin. Headaches: Follows with Neurology, Emma Celestin CNP. Taking Depakote 125 mg 1 pill BID and 250 mg 1 pill BID. Past medical history, appointments, medications, allergies reviewed. Interested in shingles and influenza vaccines today Previous Medical History PAST MEDICAL HISTORY Diagnosis Date Asthma Bowel perforation 11/05/2012 C. difficile colitis 04/2016 Closed nondisplaced fracture of proximal phalanx of lesser toe of left foot with routine healing 10/07/2019 COVID-19 03/30/2021 Diabetes mellitus type 2 in obese (HCC) 10/2013 A1C 6.8% Dyslipidemia 01/02/2019 Essential hypertension 08/11/2015 GERD (gastroesophageal reflux disease) Incisional hernia 06/26/2013 Injury to rectosigmoid colon 10/17/2012 Low HDL (under 40) 10/2013 Nephrolithiasis Osteoarthrosis, unspecified whether generalized or localized, other specified sites Osteoarthritis Bilateral knees Spasm of muscle Tobacco use disorder quit 2012 Unspecified hereditary and idiopathic peripheral neuropathy Vaginal fistula 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 Ramirez HERNIA REPAIR HX 06/22/13 HYSTERECTOMY HX 2011 fistula with intestine HYSTEROSCOPY, DIAGNOSTIC (SEPARATE Hysteroscopy/Novasure LAP HYSTERECTOMY FOR UTERUS 250G OR LESS 10/09/2012 with vaginal sling, LSO, right salpingectomy LAPS ABD PRTM&OMENTUM DX W/WO SPEC BR/WA SPX Laparoscopy LAPS REPAIR HERNIA EXCEPT INCAL/INGUN REDUCIBLE 05/2017 LIG/TRNSXJ FLP TUBE ABDL/VAG APPR UNI/BI 2001 Tubal ligation PAST SURGICAL HISTORY OF 01/30/05 Left shoulder arthroscopy and debridement PAST SURGICAL HISTORY OF 02/22 3rd toe left foot PAST SURGICAL HISTORY OF 03/14/2010 right total knee replacement PAST SURGICAL HISTORY OF 03/14/2009 left total knee replacement PAST SURGICAL HISTORY OF 01/23/2013 Ileostomy closure. PAST SURGICAL HISTORY OF Left 16 left ring trigger release RPR 1ST INCAL/VNT HERNIA INCARCERATED 06/22/2013 at ileostomy site - 11x[address] \mesh RPR RECRT INCAL/VNT HERNIA INCARCERATED 07/23/14 at midline' RPR RECRT INCAL/VNT HERNIA INCARCERATED 10/11/14 - recurrent small bowel resection, enterotomy Family History FAMILY HISTORY Problem Relation Age of Onset Hypertension Mother Diabetes Mother Cancer Maternal Uncle throat cancer Hypertension Sister Diabetes Sister other (hyperlipidemia) Sister Patient Allergies ALLERGIES Allergen Reactions Lac Hydrin [Other] Dried her feet Omnicef [Cefdinir] Itching Vaginitis severe Proventil [Albutero* Vomiting Can not tolerate generic albuterol 08/22/12 - MEM. Tramadol Hives Current Medications Current Outpatient Medications on File Prior to Visit Medication Sig famotidine (PEPCID) 20 mg tablet Take 1 tablet by mouth twice daily. calcium citrate-vitamin D3 (CITRACAL+D) 315 mg-5 mcg (200 unit) tab Take 1 tablet by mouth once daily. atorvastatin (LIPITOR) 40 mg tablet Take 1 tablet by mouth once daily. insulin degludec (TRESIBA) 200 unit/mL (3 mL) injection Inject 102 Units subcutaneously every morning. flash glucose sensor (FREESTYLE MICHI 14 DAY SENSOR) kit Apply sensor to back of arm to check bloodsugars as directed. Change sensor every 2 weeks and rotate arms. mupirocin (BACTROBAN) 2 % ointment Apply to affected area every 12 hours as needed (rash, skin lesions). diclofenac (VOLTAREN ARTHRITIS PAIN) 1 % topical gel Apply 2 g to affected area four times daily. aspirin, enteric coated (ASPIRIN, ENTERIC COATED) 81 mg EC tablet Take 1 tablet by mouth once daily. dulaglutide (TRULICITY) 4.5 mg/0.5 mL pen injector Inject 4.5 mg subcutaneously one time a week. glucagon (BAQSIMI) 3 mg/actuation nasal spray Use 1 [place] in the nose as needed for low blood sugar. May repeat after 15 minutes using a new device if there is no response. alcohol swabs (BD SINGLE USE SWABS REGULAR) Use as directed 4 to 5 times daily to check blood sugars and with insulin injections divalproex DR (DEPAKOTE) 125 mg EC tablet TAKE 1 TABLET BY MOUTH TWICE DAILY divalproex DR (DEPAKOTE) 250 mg EC tablet TAKE 1 TABLET BY MOUTH TWICE DAILY ibuprofen (MOTRIN) 800 mg tablet Take 1 tablet by mouth every 8 hours as needed for Pain. Take withfood. polyethylene glycol 3350 (MIRALAX) 17 gram/dose powder 1 capful daily in the morning lisinopril (ZESTRIL, PRINIVIL) 10 mg tablet Take 1 tablet by mouth once daily. insulin aspart U-100 (NOVOLOG FLEXPEN U-100 INSULIN) 100 unit/mL (3 mL) Inject 20 Units subcutaneously three times daily before meals. Plus sliding scale. TDD 84 units/day. metFORMIN (GLUCOPHAGE) 1,000 mg tablet Take 1 tablet by mouth twice daily. albuterol HFA (VENTOLIN HFA) 90 mcg/actuation inhaler Inhale 2 Puffs as instructed every 4 hours asneeded. For wheezing/shortness of breath. blood sugar diagnostic (FREESTYLE PRECISION JEREMIAS STRIPS) test strip Use to test blood sugar up to twice daily as instructed. Dx: insulin-dependent DM Insulin [place], Disposable, (UNIFINE PENTIPS) 31 gauge x 3/16 Use as directed 4 times daily with insulin flash glucose scanning reader (FREESTYLE MICHI 14 DAY READER) [facility] [place] Use to test blood sugar as directed. albuterol (PROVENTIL) 2.5 mg /3 mL (0.083 %) nebulizer solution Use 3 mL via nebulizer every 4 hours as needed for Wheezing/Shortness of Breath. Use over 5-15minutes. No current facility-administered medications on file prior to visit. Social History Social History Tobacco Use Smoking status: Former Packs/day: 0.50 Years: 24.00 Pack years: 12.00 Types: Cigarettes Quit date: 05/13/2013 Years since quittin.9 Smokeless tobacco: Never Vaping Use Vaping Use: Never used Substance Use Topics Alcohol use: No Drug use: No Review of Symptoms REVIEW OF SYSTEMS See HPI EXAM: LMP 08/30/2012 General Appearance: Well appearing, alert, in no acute distress, well-hydrated, well nourished. andObese. Skin: Skin color, texture, turgor normal, no suspicious rashes or lesions, healing areas of great toe inner nail removal. Head: Normocephalic, no masses, lesions, tenderness or abnormalities. Oropharynx: Lips, mucosa, and tongue normal, teeth and gums normal, oropharynx normal. Lungs: Lungs clear to auscultation. No wheezing, rhonchi, rales.. Heart: RRR without murmur, gallop, or rubs. No ectopy. Abdomen: Normal abdominal exam, Abdomen soft, non-tender. Bowel sounds normal. No masses, organomegaly. Extremities: No deformities, edema, skin discoloration, clubbing or cyanosis. Good capillary refill. .healing areas of great toe inner nail removal. Musculoskeletal: No joint swelling, deformity, or tenderness. Peripheral Pulses: Normal. Health Maintenance List HEPATITIS B(1 of 3 - 3-dose series) Never done PNEUMOCOCCAL(2 - PCV) due on 01/26/2014 SHINGRIX VACCINE(1 of 2) Never done DEPRESSION ASSESSMENT Never done COVID-19 VACCINE(4 - Booster for Pfizer series) due on 02/16/2022 INFLUENZA(1) due on 03/22/2022 URINE ALBUMIN:CREATININE RATIO due on 05/09/2022 HBA1C due on 07/26/2022 DIABETIC FOOT EXAM due on 08/14/2022 BP CONTROLLED (<130/80) due on 08/14/2022 MAMMOGRAM due on 08/22/2022 DILATED RETINAL EXAM due on 08/30/2022 ANNUAL PCP TEAM CHRONIC DISEASE VISIT due on 03/06/2023 LDL CHOLESTEROL due on 04/25/2023 DTAP,TDAP,TD(3 - Td or Tdap) due on 01/29/2024 COLORECTAL CANCER SCREENING due on 08/16/2025 HEPATITIS C SCREENING Completed HIV SCREENING Completed PAP TESTING Discontinued HPV TESTING Discontinued Data reviewed Appointment on 04/25/2022 Component Date Value Protein, Total 04/25/2022 6.8 Albumin 04/25/2022 3.9 Calcium, Total 04/25/2022 9.2 Bilirubin, Total 04/25/2022 0.9 Alkaline Phosphatase 04/25/2022 88 AST 04/25/2022 14 ALT 04/25/2022 11 Glucose 04/25/2022 152 (A) BUN 04/25/2022 6 (A) Creatinine 04/25/2022 0.49 (A) Sodium 04/25/2022 139 Potassium 04/25/2022 3.8 Chloride 04/25/2022 106 (A) CO2 04/25/2022 26 Anion Gap 04/25/2022 7 (A) Estimated Glomerular Jose* 04/25/2022 110 Hemoglobin A1C 04/25/2022 11.4 (A) Estimated Average Glucose 04/25/2022 280 WBC 04/25/2022 5.54 RBC 04/25/2022 4.39 Hemoglobin 04/25/2022 13.4 Hematocrit 04/25/2022 38.8 MCV 04/25/2022 88.4 MCH 04/25/2022 30.5 MCHC 04/25/2022 34.5 RDW-CV 04/25/2022 11.9 Platelet Count 04/25/2022 243 MPV 04/25/2022 8.8 (A) Neut% 04/25/2022 42.6 Abs Neut 04/25/2022 2.36 Lymph% 04/25/2022 45.8 Abs Lymph 04/25/2022 2.54 Lander% 04/25/2022 7.8 Abs Lander 04/25/2022 0.43 Eosin% 04/25/2022 2.9 Abs Eosin 04/25/2022 0.16 Baso% 04/25/2022 0.7 Abs Baso 04/25/2022 0.04 Immature Gran % 04/25/2022 0.2 Abs Immature Gran 04/25/2022 <0.03 NRBC 04/25/2022 0.0 Absolute nRBC 04/25/2022 <0.01 Diff Type 04/25/2022 Auto Vitamin D 25 Hydroxy 04/25/2022 10.3 (A) Vitamin B12 04/25/2022 399 TSH 04/25/2022 0.878 Cholesterol, Total 04/25/2022 213 (A) Triglyceride 04/25/2022 106 HDL Cholesterol 04/25/2022 48 Non HDL Cholesterol 04/25/2022 165 (A) Fasting Time 04/25/2022 12 VLDL Cholesterol 04/25/2022 21 TC:HDL Ratio 04/25/2022 4.44 LDL Cholesterol 04/25/2022 144 (A) LDL:HDL Ratio 04/25/2022 3.00 (A) ASSESSMENT/PLAN: 1. Uncontrolled type 2 diabetes mellitus with hyperglycemia (HCC) - ICD9: 250.02, ICD10: E11.65 (primary diagnosis) uncontrolled poorly controlled Poor adherence to plan of care. - Continue current medications - Blood glucose monitoring on a twice a day schedule - Encouraged regular aerobic exercise and weight loss - ALBUMIN/CREAT RATIO RND UR - COMP METABOLIC PANEL - HGB A1C 2. Vitamin D deficiency - ICD9: 268.9, ICD10: E55.9 rx as below, she is having fatigue, recheck labs in 3 months and prn - CHOLECALCIFEROL (VITAMIN D3) 125 MCG (5,000 UNIT) CAPSULE - VITAMIN D 25 HYDROXY 3. Vitamin B12 deficiency - ICD9: 266.2, ICD10: E53.8 rx as below, she is having fatigue, recheck labs in 3 months and prn - CYANOCOBALAMIN (VIT B-12) 1,000 MCG TABLET - VITAMIN B12 BLOOD 4. Need for influenza vaccination - ICD9: V04.81, ICD10: Z23 - INFLUENZA VACCINE QUADRIVALENT 6 MO - 64 YRS IM 5. Need for shingles vaccine - ICD9: V04.89, ICD10: Z23 - ZOSTER VACC RECOMBINANT,IM 6. Essential hypertension - ICD9: 401.9, ICD10: I10 - good control - Continue current medication(s) - Encouraged dietary sodium restriction/DASH diet - Recommended regular aerobic exercise. - Recommend home blood pressure monitoring, to bring results in on next visit - Discussed need and benefit for weight loss. - Goal of BP <130/80 7. Hyperlipidemia, mixed - ICD9: 272.2, ICD10: E78.2 - suboptimal control - Encouraged following a low fat, low cholesterol diet. - Discussed the benefits of regular aerobic exercise and weight loss. - LIPID PANEL BASIC Jese Zheng DO documented in this encounterGlen[facility]10-05-2022 History of Present illness Narrative* RT Jamison(R) - 04/25/2022 10:00 AM EDT Radiology Service Progress Note PATIENT NAME: Lina Isaac DATE OF SERVICE: April 25, 2022 TIME: 10:10 AM PATIENT IDENTITY VERIFICATION COMPLETED USING TWO (2) IDENTIFIERS: Name and Date of confirmedby patient verbally. FALL SCREENING: Has the patient had 2 falls in the last year or 1 fall with injury or currently using an Ambulatory Assistive Device (Walker, Cane, Wheelchair, Crutches, etc.)? No PATIENT GENDER DATA: Female. status: : No status: NO. PATIENT RELEVANT IMPLANT DATA REVIEWED: Not Applicable RADIOLOGY DEPARTMENT: Bone Density PERIPHERAL IV DATA: Not applicable SIGNED BY: RT Jamison(R) April 25, 2022 10:10 AM documented in this encounterGlenbeigh Hospital09-01-2022 Miscellaneous Notes* Telephone Encounter - Deya Gross LPN - 03/22/2022 11:56 AM EDT Patient has been identified by name and date of : Yes Patient phones for refill(s): Requested Prescriptions Pending Prescriptions Disp Refills famotidine (PEPCID) 20 mg tablet 180 tablet 3 Sig: Take 1 tablet by mouth twice daily. calcium citrate-vitamin D3 (CITRACAL+D) 315 mg-5 mcg (200 unit) tab 30 tablet 3 Sig: Take 1 tablet by mouth once daily. Date of last office visit in primary care: 03/06/22 Last 2 Encounter Wt Readings: Date: Wt: 03/06/2022 94.3 kg (208 lb) 12/30/2021 95.7 kg (211 lb) Previous labs/tests for medication: Not applicable Thank you. Deya Gross LPN documented in this encounterGlenbeigh Hospital08-15-2022 Miscellaneous Notes* Telephone Encounter - Bettina Curiel MA - 03/05/2022 9:29 AM EDT Patient has been identified by name and date of : Yes Requested Prescriptions Pending Prescriptions Disp Refills aspirin, enteric coated (ASPIRIN, ENTERIC COATED) 81 mg EC tablet 90 tablet 3 Sig: Take 1 tablet by mouth once daily. dulaglutide (TRULICITY) 4.5 mg/0.5 mL pen injector 4 Each 3 Sig: Inject 4.5 mg subcutaneously one time a week. RX INSTRUCTIONS: Patient aware RX will be sent to pharmacy. No need to notify patient. Bettina Curiel MA Shira: 01/2022 Nov: 03/06/2022 Last refill: 09/2021 documented in this encounterGlenbeigh Hospital07-21-2022 History of Present illness Narrative* Shayan Martinez, [facility] - 02/08/2022 9:30 AM EDT Images from the original note were not included. Primary Care Pharmacy Visit CC (Reason for Consult): Diabetes Goal: A1c < 7% Collaborating Provider: Dr. Zheng Last Provider Visit: 12/30/21 Lina Isaac is a 56 year old female presenting for follow up visit in person. Patient consentsto pharmacy collaborative practice agreement. Patient is presenting today for f/up pharmacotherapy management appointment for diabetes. At last PharmD visit on 06/22, Tresiba was increased and importance of medication adherence stressed. F/up wasscheduled for full med review but patient cancelled and was lost to f/up. On 08/25 PCP increased Novolog. On 10/13 Trulicity was increased. In early December patient was treated for foot cellulitis. At last PCP appt, patient was seen for foot issues and referred to podiatry. Subjective: HPI: Patient having a lot of lack of sleep, having some sleep and behavioral issues with 8 yo daughter. Not sure if has depression or just tired, sometimes doesn't want to do anything. Denies SI/HI. Plansto discuss with Dr. Zheng in February at upcoming appt. 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 Doesn't have time for herself. Never received glucagon, said insurance would cover a different brand. Energy is poor. No UTIs or yeast infections. Is having dry mouth. No frequent urination. Current DM Medications: Metformin 1000mg BID Dulaglutide (Trulicity) 4.5mg weekly - Sundays Insulin degludec (Tresiba) 78 units QAM Insulin aspart (Novolog) 20 units TIDAC + SSI 200-230 = add 3 units 230-260 = add 6 units 260-300 = add 8 units >300 = add 12 units GLYCEMIC CONTROL: Glucometer present at visit: Yes SMBG s: 7 day avg 306 (took 32 units Novolog this AM); has been without sensor for 3 days, waiting on refill from pharmacy Date Fasting AM 2 hr PP Before Lunch 2 hr PP Before Dinner 2 hr PP Bedtime 02/08 306 180 01/26 269 356 12/02 319 Hypoglycemia: none Preventative Medications: On JANNIE/ARB: Yes On Statin: Yes ROS: Patient denies CP, SOB, GRIER, blurred vision, dizziness or lightheadedness Patient denies symptoms of hypoglycemia (sweating, anxiety, palpitations, hunger, and tremor) Patient denies symptoms of hyperglycemia (polyuria, polydipsia, polyphagia) Patient denies potential medication adverse effects DIET/EXERCISE/SOCIAL Hx: Doesn't feel she is eating enough Has little appetite Breakfast: 2 biscuits with gravy (from [employer]); today just ate a piece of sausage with egg this AM Lunch: often skipping Dinner: often skipping Snacks: none Beverages: water; Sprite Zero 1 can daily in the evening Exercise: none, no time MEDICATIONS: Pill bottles are not present Adherence: reports missed doses of oral meds 2-3 days per week (has lack of energy); reports adherence with insulins [facility]acy[place] [facility] [place] ([facility] [place] [facility] [place]: no issues Diabetes supplies: [employer] System: none, lost her pill box ACTIVE PROBLEM LIST Unspecified Hereditary and Idiopathic Peripheral Neuropathy Pain in Limb Incisional Hernia, Without Obstruction Or Gangrene Diabetes Mellitus Type 2 in Obese (Hcc) Low Hdl (Under 40) Gerd (Gastroesophageal Reflux Disease) Essential Hypertension Obesity Trigger Ring Finger of Left Hand Uncontrolled Type 2 Diabetes Mellitus With Polyneuropathy Incisional Hernia Dyslipidemia Closed Nondisplaced Fracture of Proximal Phalanx of Lesser Toe of Left Foot With Routine Healing Post-Covid Chronic Dyspnea Shortness of Breath Persistent Cough Restless Leg Arthralgia Muscle Ache Wheezing Paresthesias Hyperlipidemia, Mixed Uncontrolled Type 2 Diabetes Mellitus With Hyperglycemia (Hcc) Generalized Abdominal Pain Chronic Constipation Obesity, Class I, Bmi 30-34.9 PAST MEDICAL HISTORY Diagnosis Date Asthma Bowel perforation 11/05/2012 C. difficile colitis 04/2016 Closed nondisplaced fracture of proximal phalanx of lesser toe of left foot with routine healing 10/07/2019 COVID-19 03/30/2021 Diabetes mellitus type 2 in obese (HCC) 10/2013 A1C 6.8% Dyslipidemia 01/02/2019 Essential hypertension 08/11/2015 GERD (gastroesophageal reflux disease) Incisional hernia 06/26/2013 Injury to rectosigmoid colon 10/17/2012 Low HDL (under 40) 10/2013 Nephrolithiasis Osteoarthrosis, unspecified whether generalized or localized, other specified sites Osteoarthritis Bilateral knees Spasm of muscle Tobacco use disorder quit 2012 Unspecified hereditary and idiopathic peripheral neuropathy Vaginal fistula 11/27/2012 Past medical, family and social history reviewed and updated. ALLERGIES Allergen Reactions Lac Hydrin [Other] Dried her feet Omnicef [Cefdinir] Itching Vaginitis severe Proventil [Albutero* Vomiting Can not tolerate generic albuterol 08/22/12 - MEM. Tramadol Hives Medication List Medication Directions Comments Action/Plan albuterol (PROVENTIL) 2.5 mg /3 mL (0.083 %) nebulizer solution Use 3 mL via nebulizer every 4 hours as needed for Wheezing/Shortness of Breath. Use over 5-15minutes. albuterol HFA (VENTOLIN HFA) 90 mcg/actuation inhaler Inhale 2 Puffs as instructed every 4 hours asneeded. For wheezing/shortness of breath. alcohol swabs (BD SINGLE USE SWABS REGULAR) Use as directed 4 to 5 times daily to check blood sugars and with insulin injections aspirin, enteric coated (ASPIRIN, ENTERIC COATED) 81 mg EC tablet Take 1 tablet by mouth once daily. atorvastatin (LIPITOR) 40 mg tablet Take 1 tablet by mouth once daily. benzonatate (TESSALON PERLES) 100 mg capsule Take 1 capsule by mouth three times daily as needed for cough. Patient not taking: Reported on 12/20/2021 blood sugar diagnostic (FREESTYLE LITE STRIPS) test strip Test blood glucose three times daily as instructed. E11.9, E66.9 blood sugar diagnostic (FREESTYLE PRECISION JEREMIAS STRIPS) test strip Use to test blood sugar up to twice daily as instructed. Dx: insulin-dependent DM Blood-Glucose Meter (FREESTYLE LITE METER) monitoring kit Freestyle LITE Meter Kit - calcium citrate-vitamin D3 (CITRACAL+D) 315 mg-5 mcg (200 unit) tab Take 1 tablet by mouth once daily. diclofenac (VOLTAREN ARTHRITIS PAIN) 1 % topical gel Apply 2 g to affected area four times daily. Discontinued: 12/26/2021 3:[address] (DEPAKOTE) 125 mg EC tablet TAKE 1 TABLET BY MOUTH TWICE DAILY Discontinued: 12/26/2021 3:[address] (DEPAKOTE) 250 mg EC tablet TAKE 1 TABLET BY MOUTH TWICE DAILY doxycycline (VIBRA-TABS) 100 mg tablet Take 1 tablet by mouth twice daily for 10 days. dulaglutide (TRULICITY) 4.5 mg/0.5 mL pen injector Inject 4.5 mg subcutaneously one time a week. EASY TOUCH 32 gauge x 3/16 ndle use once daily to inject insulin famotidine (PEPCID) 20 mg tablet Take 1 tablet by mouth twice daily. flash glucose scanning reader (FREESTYLE MICHI 14 DAY READER) [facility] [place] to test blood sugar as directed. flash glucose sensor (FREESTYLE MICHI 14 DAY SENSOR) kit Apply sensor to back of arm to check bloodsugars as directed. Change sensor every 2 weeks and rotate arms. glucagon (BAQSIMI) 3 mg/actuation nasal spray Use 1 [place] in the nose as needed for low blood sugar. May repeat after 15 minutes using a new device if there is no response. glucose 4 gram chewable tablet Take 4 tablets by mouth as needed. For blood sugars less than 70 ibuprofen (MOTRIN) 800 mg tablet Take 1 tablet by mouth every 8 hours as needed for Pain. Take withfood. insulin aspart U-100 (NOVOLOG FLEXPEN U-100 INSULIN) 100 unit/mL (3 mL) Inject 20 Units subcutaneously three times daily before meals. Plus sliding scale. TDD 84 units/day. insulin degludec (TRESIBA FLEXTOUCH U-100) 100 unit/mL (3 mL) injection pen Inject 78 Units subcutaneously once daily. Insulin [place], Disposable, (UNIFINE PENTIPS) 31 gauge x 3/16 Use as directed 4 times daily with insulin lisinopril (ZESTRIL, PRINIVIL) 10 mg tablet Take 1 tablet by mouth once daily. metFORMIN (GLUCOPHAGE) 1,000 mg tablet Take 1 tablet by mouth twice daily. mupirocin (BACTROBAN) 2 % ointment Apply to affected area. Oral Medication Containers (BD SHARPS SPRING SALVAGE WORKER) misc Use as instructed for DM supply disposal DM: yes Insulin: yes DX:11.9 oxyCODONE-acetaminophen (PERCOCET) 5-325 mg tablet Take 1 tablet by mouth every 6 hours as needed for pain for up to 7 days. Polyethylene Glycol 1000 powd Use 1 scoop PRN constipation polyethylene glycol 3350 (MIRALAX) 17 gram/dose powder 1 capful daily in the morning sulfamethoxazole-trimethoprim (BACTRIM DS) 800-160 mg per tablet Take 1 tablet by mouth twice dailyfor 10 days. UNILET SUPER THIN LANCETS 30 gauge misc Test blood sugar once daily. Objective: Exam: Last 3 Encounter BP Readings: Date: BP: 12/30/2021 120/70 12/20/2021 144/96 11/14/2021 138/82 Wt: 95.7 kg (211 lb) BMI: 32.08 kg/(m^2) LABS: Reviewed Lab Results Component Value Date HBA1C 10.9 12/20/2021 HBA1C 11.2 08/14/2021 HBA1C 12.1 05/09/2021 HBA1C 10.3 08/05/2020 CMP: Glucose 255 12/20/2021 BUN 14 12/20/2021 Creatinine, Whole Blood (iSTAT) 0.44 12/20/2021 Sodium 138 12/20/2021 Potassium 4.1 12/20/2021 Chloride 104 12/20/2021 CO2 25 12/20/2021 Protein, Total 7.3 12/20/2021 Albumin 4.2 12/20/2021 Calcium 9.4 12/20/2021 Alkaline Phosphatase 87 12/20/2021 Bilirubin, Total 0.7 12/20/2021 AST 14 12/20/2021 ALT 14 12/20/2021 Estimated Creatinine Clearance: 170.6 mL/min (A) (based on SCr of 0.44 mg/dL (L)). Lab Results Component Value Date CHOL 217 12/20/2021 CHOL 205 05/09/2021 LDL 132 12/20/2021 LDL 127 05/09/2021 HDL 66 12/20/2021 HDL 54 05/09/2021 TG 95 12/20/2021 TG 120 05/09/2021 The 10-year ASCVD risk score (Palma RAMIREZ Jr., et al., 2013) is: 9.9% Values used to calculate the score: Age: 56 years Sex: Female Is Non- : Yes Diabetic: Yes Tobacco smoker: No Systolic Blood Pressure: 120 mmHg Is BP treated: Yes HDL Cholesterol: 66 mg/dL Total Cholesterol: 217 mg/dL Albumin/Creat Ratio (mg/g) Date Value 05/09/2021 58 (H) PHARMACOTHERAPY ASSESSMENT/PLAN: 1. Uncontrolled type 2 diabetes mellitus with hyperglycemia (HCC) - ICD9: 250.02, ICD10: E11.65 (primary diagnosis) A1c goal < 7%; uncontrolled (last A1c 10.9%); SMBGs all very elevated; does have dry mouth and poor energy; no recent concerns for lows; patient only eating once daily, usually high-carb food withminimal protein; today had sausage and egg and BG came down to 100s; patient taking insulins and Trulicity consistently but often missing metformin due to forgetfulness and mood (patient not sure if depressed, plans to discuss at upcoming appt with PCP); will increase Tresiba today and encourage adherence to metformin; renal fxn and LFTs sufficient for use INCREASE Tresiba to 90 units daily (will order u200 pen) CONTINUE metformin 1000mg BID, Trulicity 4.5mg weekly, and Novolog 20 units + SSI TIDAC Stressed importance of taking metformin daily as prescribed Encouraged eating a healthier breakfast instead of biscuits and gravy (ie eggs with whole wheat toast, etc) Strongly encouraged her to take time for herself every week to relax and not be stressed to help her with her mood, energy level, and self care PharmD called [facility] to clarify which glucagon product is covered. Spoke with pharmacist, Felipe. Said Baqsimi script is . PharmD reviewed [employer] formulary, Baqsimi is covered in 2021 formulary. PharmD resubmitted script for Baqsimi and provided direct phone number for Felipe to call if product still not covered. HbA1c: due 03/22 2. Medication management - ICD9: V58.69, ICD10: Z79.899 Patient forgot pill bottles today, will plan to bring in next month for full med review. Patient admits nonadherence to oral meds several days/week. Stressed importance of taking daily as prescribed and provided pill box. Patient is scheduled to see PCP on 03/06. Patient to have PharmD f/u on 03/22. Patient verbalized understanding of instructions. Shayan Martinez PharmD, [facility] Primary Care Clinical Pharmacist Eloise Casillas [facility] The majority of the pharmacy visit (> 50%) was spent counseling and/or coordinating care for thepatient. interaction: face to face time was 55 minutes. documented in this encounterGlen[facility]igh Hospital07-21-2022 Instructions* Patient Instructions* Shayan Martinez RPh - 02/08/2022 9:30 AM EDT INCREASE Tresiba to 90 units daily. With your current pen, you will need to divide the dose and take 2 injections of 45 units until you use up your remaining supply. I sent a new prescription to yourpharmacy that will allow you to dial up to 90 units so you only take 1 injection. RESTART metformin and all of your other oral medications. Make sure you take them consistently as directed. Contact PharmD if you have any issues or low blood sugars. Place sensors on your arm and start using your Trustifiyle Michi again. Talk to Dr. Zheng about your mood and possibly seeing a counselor. Bring all of your medications and pill bottles to your next appointment with [facility]. TAKE TIME FOR YOURSELF!!!! You need to take care of yourself so that you can be your best to take care of other. documented in this encounterGlenbeigh Hospital07-07-2022 Miscellaneous Notes* Telephone Encounter - Shayan Martinez RPh - 01/25/2022 9:13 AM EDT No show for PharmD visit today. LMOM to return call to office to reschedule. Shayan Martinez PharmD, BCPS Primary Care Clinical Pharmacist Eloise Casillas [facility] documented in this encounterGlenbeigh Hospital06-14-2022 Miscellaneous Notes* Telephone Encounter - Indu Petty Ma - 01/02/2022 8:22 AM EDT Pt sent [employer] message notifying her of results. If questions to contact office. Indu Petty Ma * Telephone Encounter - Jese Zheng DO - 01/02/2022 7:00 AM EDT Please inform patient that her CT foot shows: NO EVIDENCE OF OSTEOMYELITIS OR OTHER ACUTE OSSEOUS ABNORMALITY. It does show evidence of her previous surgery which is without acute findings. And shows her osteoarthritis in her foot. Would recommend follow up with Abstract Clerk Jese Zheng DO documented in this encounterGlenbeigh Hospital06-13-2022 Miscellaneous Notes* Telephone Encounter - Fabiana Cook LPN - 01/01/2022 10:07 AM EDT Pt. informed. Fabiana Cook LPN * Telephone Encounter - Jese Zheng DO - 01/01/2022 7:20 AM EDT Please inform patient that the xray of her foot shows FINDINGS: Stable position of screw within the 3rd metatarsal head. No acute fracture or dislocation. Mild osteoarthritic change at 1st and 3rd MCP joints (toe joint). Plantar and dorsal calcaneal spurs. No soft tissue foreign body. IMPRESSION: No acute abnormality. Will await business communications instructor opinion and further imaging Jese Zheng DO documented in this encounterGlenbeigh Hospital06-11-2022 History of Present illness Narrative* Akira Rendon RT(R) - 12/30/2021 10:20 AM EDT Radiology Service Progress Note PATIENT NAME: Lina Isaac DATE OF SERVICE: December 30, 2021 TIME: 10:22 AM PATIENT IDENTITY VERIFICATION COMPLETED USING TWO (2) IDENTIFIERS: Name and Date of confirmedby patient verbally. FALL SCREENING: Has the patient had 2 falls in the last year or 1 fall with injury or currently using an Ambulatory Assistive Device (Walker, Cane, Wheelchair, Crutches, etc.)? No PATIENT GENDER DATA: Female. status: : No status: NO. PATIENT RELEVANT IMPLANT DATA REVIEWED: Not Applicable RADIOLOGY DEPARTMENT: General X-ray: Exam(s) Completed: Lower Extremity X- Ray(s): Foot, Left PERIPHERAL IV DATA: Not applicable SIGNED BY: RT Jamison(R) December 30, 2021 10:22 AM documented in this encounterGlenbeigh Hospital06-11-2022 History of Present illness Narrative* Jese Zheng DO - 12/30/2021 10:08 AM EDT CC: Lina Isaac is a 56 year old female who presents to the office for foot pain HPI: Left foot pain, persistent, states that it started about end of October or early November, present for at least 6 weeks, seems to be worsening since about 1-2 weeks ago, now is having to walk on left great toes which is causing her left great toe/toenail to be very sore since she has had an intermittent ingrown toenail area which gets infected. Podiatry hasn't wanted to do a nail surgery due to her diabetes. Has been seen by Maura in the office on 12/20 and treated with doxycycline without relief of symptoms. Pain is worse and severe- not walking, not able to sleep well. Very concerned due to her diabetes and risk of infection. Has been trying to use epsom salt soaks on foot without relief. No fevers or chills. When symptoms started, she had stepped on a badge pin which puncture her left heel thatshe had to pull out of her heel that was embedded. PAST MEDICAL HISTORY Diagnosis Date Asthma Bowel perforation 11/05/2012 C. difficile colitis 04/2016 Closed nondisplaced fracture of proximal phalanx of lesser toe of left foot with routine healing 10/07/2019 COVID-19 03/30/2021 Diabetes mellitus type 2 in obese (HCC) 10/2013 A1C 6.8% Dyslipidemia 01/02/2019 Essential hypertension 08/11/2015 GERD (gastroesophageal reflux disease) Incisional hernia 06/26/2013 Injury to rectosigmoid colon 10/17/2012 Low HDL (under 40) 10/2013 Nephrolithiasis Osteoarthrosis, unspecified whether generalized or localized, other specified sites Osteoarthritis Bilateral knees Spasm of muscle Tobacco use disorder quit 2012 Unspecified hereditary and idiopathic peripheral neuropathy Vaginal fistula 11/27/2012 PAST SURGICAL HISTORY Procedure Laterality Date DELIVERY ONLY 1987 , low cervical DELIVERY ONLY 2001 , low transverse COLONOSCOPY 08/16/15 Dr. Ramirez HERNIA REPAIR HX 06/22/13 HYSTERECTOMY HX 2011 fistula with intestine HYSTEROSCOPY, DIAGNOSTIC (SEPARATE Hysteroscopy/Novasure LAP HYSTERECTOMY FOR UTERUS 250G OR LESS 10/09/2012 with vaginal sling, LSO, right salpingectomy LAPS ABD PRTM&OMENTUM DX W/WO SPEC BR/WA SPX Laparoscopy LAPS REPAIR HERNIA EXCEPT INCAL/INGUN REDUCIBLE 05/2017 LIG/TRNSXJ FLP TUBE ABDL/VAG APPR UNI/BI 2001 Tubal ligation PAST SURGICAL HISTORY OF 01/30/05 Left shoulder arthroscopy and debridement PAST SURGICAL HISTORY OF 02/22 3rd toe left foot PAST SURGICAL HISTORY OF 03/14/2010 right total knee replacement PAST SURGICAL HISTORY OF 03/14/2009 left total knee replacement PAST SURGICAL HISTORY OF 01/23/2013 Ileostomy closure. PAST SURGICAL HISTORY OF Left 6-17-16 left ring trigger release RPR 1ST INCAL/VNT HERNIA INCARCERATED 06/22/2013 at ileostomy site - 11x[address] \mesh RPR RECRT INCAL/VNT HERNIA INCARCERATED 07/23/14 at midline' RPR RECRT INCAL/VNT HERNIA INCARCERATED 10/11/14 - recurrent small bowel resection, enterotomy Current Outpatient Medications Medication Sig sulfamethoxazole-trimethoprim (BACTRIM DS) 800-160 mg per tablet Take 1 tablet by mouth twice dailyfor 10 days. oxyCODONE-acetaminophen (PERCOCET) 5-325 mg tablet Take 1 tablet by mouth every 6 hours as needed for pain for up to [address] (DEPAKOTE) 125 mg EC tablet TAKE 1 TABLET BY MOUTH TWICE DAILY divalproex DR (DEPAKOTE) 250 mg EC tablet TAKE 1 TABLET BY MOUTH TWICE DAILY doxycycline (VIBRA-TABS) 100 mg tablet Take 1 tablet by mouth twice daily for 10 days. ibuprofen (MOTRIN) 800 mg tablet Take 1 tablet by mouth every 8 hours as needed for Pain. Take withfood. polyethylene glycol 3350 (MIRALAX) 17 gram/dose powder 1 capful daily in the morning diclofenac (VOLTAREN ARTHRITIS PAIN) 1 % topical gel Apply 2 g to affected area four times daily. famotidine (PEPCID) 20 mg tablet Take 1 tablet by mouth twice daily. calcium citrate-vitamin D3 (CITRACAL+D) 315 mg-5 mcg (200 unit) tab Take 1 tablet by mouth once daily. dulaglutide (TRULICITY) 4.5 mg/0.5 mL pen injector Inject 4.5 mg subcutaneously one time a week. lisinopril (ZESTRIL, PRINIVIL) 10 mg tablet Take 1 tablet by mouth once daily. insulin degludec (TRESIBA FLEXTOUCH U-100) 100 unit/mL (3 mL) injection pen Inject 78 Units subcutaneously once daily. insulin aspart U-100 (NOVOLOG FLEXPEN U-100 INSULIN) 100 unit/mL (3 mL) Inject 20 Units subcutaneously three times daily before meals. Plus sliding scale. TDD 84 units/day. benzonatate (TESSALON PERLES) 100 mg capsule Take 1 capsule by mouth three times daily as needed for cough. (Patient not taking: Reported on 12/20/2021 ) metFORMIN (GLUCOPHAGE) 1,000 mg tablet Take 1 tablet by mouth twice daily. glucagon (BAQSIMI) 3 mg/actuation nasal spray Use 1 [place] in the nose as needed for low blood sugar. May repeat after 15 minutes using a new device if there is no response. mupirocin (BACTROBAN) 2 % ointment Apply to affected area. Polyethylene Glycol 1000 powd Use 1 scoop PRN constipation albuterol HFA (VENTOLIN HFA) 90 mcg/actuation inhaler Inhale 2 Puffs as instructed every 4 hours asneeded. For wheezing/shortness of breath. flash glucose sensor (FREESTYLE MICHI 14 DAY SENSOR) kit Apply sensor to back of arm to check bloodsugars as directed. Change sensor every 2 weeks and rotate arms. alcohol swabs (BD SINGLE USE SWABS REGULAR) Use as directed 4 to 5 times daily to check blood sugars and with insulin injections aspirin, enteric coated (ASPIRIN, ENTERIC COATED) 81 mg EC tablet Take 1 tablet by mouth once daily. atorvastatin (LIPITOR) 40 mg tablet Take 1 tablet by mouth once daily. blood sugar diagnostic (FREESTYLE PRECISION JEREMIAS STRIPS) test strip Use to test blood sugar up to twice daily as instructed. Dx: insulin-dependent DM Insulin [place], Disposable, (UNIFINE PENTIPS) 31 gauge x 3/16 Use as directed 4 times daily with insulin flash glucose scanning reader (FREESTYLE MICHI 14 DAY READER) [facility] [place] Use to test blood sugar as directed. albuterol (PROVENTIL) 2.5 mg /3 mL (0.083 %) nebulizer solution Use 3 mL via nebulizer every 4 hours as needed for Wheezing/Shortness of Breath. Use over 5-15minutes. blood sugar diagnostic (FREESTYLE LITE STRIPS) test strip Test blood glucose three times daily as instructed. E11.9, E66.9 UNILET SUPER THIN LANCETS 30 [facility] Test blood sugar once daily. Blood-Glucose Meter (FREESTYLE LITE METER) monitoring kit Freestyle LITE Meter Kit - glucose 4 gram chewable tablet Take 4 tablets by mouth as needed. For blood sugars less than 70 Oral Medication Containers (BD SHARPS SPRING SALVAGE WORKER) misc Use as instructed for DM supply disposal DM: yes Insulin: yes DX:11.9 EASY TOUCH 32 gauge x 3/16 ndle use once daily to inject insulin No current facility-administered medications for this visit. ALLERGIES Allergen Reactions Lac Hydrin [Other] Dried her feet Omnicef [Cefdinir] Itching Vaginitis severe Proventil [Albutero* Vomiting Can not tolerate generic albuterol 08/22/12 - MEM. Tramadol Hives Social History Tobacco Use Smoking status: Former Smoker Packs/day: 0.50 Years: 24.00 Pack years: 12.00 Types: Cigarettes Quit date: 05/13/2013 Years since quittin.6 Smokeless tobacco: Never Used Vaping Use Vaping Use: Never used Substance Use Topics Alcohol use: No Drug use: No ROS: See HPI PE: BP 120/70 Pulse 80 Temp (Src) 96.7 (Left Tympanic) Resp 20 Wt 211 lb (95.7kg) LMP 08/30/2012 Gen: A&OX3, NAD, non-toxic appearing Skin: Left entire heel with swelling and extreme pain to touch diffusely, Antalgic gait, left great toe with swelling and redness and TTP diffusely with concerns for potential ingrown medial border toenail. Normal pulses foot, mild warmth of entire left heel to touch ASSESSMENT/PLAN: 1. Ingrown left greater toenail - ICD9: 703.0, ICD10: L60.0 (primary diagnosis) - concerns for left great toenail ingrown infection as well as concerns for heel cellulitis vs. Osteomyelitis due to symptoms of extreme pain and gait changes and warmth, start on antibiotic and needfor pain control. Check Xray and CT foot and follow up with Abstract Clerk STEPHANIE, will go to EMERGENCY DEPARTMENT if symptoms worsen - CONSULT TO PODIATRY - CT FOOT WO IVCON LT - XR FOOT GENERAL 3V AP/LAT/OBL LEFT - SULFAMETHOXAZOLE 800 MG-TRIMETHOPRIM 160 MG TABLET - OXYCODONE-ACETAMINOPHEN 5 MG-325 MG TABLET 2. Localized swelling of left foot - ICD9: 782.2, ICD10: R22.42 - concerns for left great toenail ingrown infection as well as concerns for heel cellulitis vs. Osteomyelitis due to symptoms of extreme pain and gait changes and warmth, start on antibiotic and needfor pain control. Check Xray and CT foot and follow up with Abstract Clerk STEPHANIE, will go to EMERGENCY DEPARTMENT if symptoms worsen - CONSULT TO PODIATRY - CT FOOT WO IVCON LT - XR FOOT GENERAL 3V AP/LAT/OBL LEFT - SULFAMETHOXAZOLE 800 MG-TRIMETHOPRIM 160 MG TABLET - OXYCODONE-ACETAMINOPHEN 5 MG-325 MG TABLET 3. Pain of left heel - ICD9: 729.5, ICD10: M79.672 - concerns for left great toenail ingrown infection as well as concerns for heel cellulitis vs. Osteomyelitis due to symptoms of extreme pain and gait changes and warmth, start on antibiotic and needfor pain control. Check Xray and CT foot and follow up with Abstract Clerk STEPHANIE, will go to EMERGENCY DEPARTMENT if symptoms worsen - CONSULT TO PODIATRY - CT FOOT WO IVCON LT - XR FOOT GENERAL 3V AP/LAT/OBL LEFT - SULFAMETHOXAZOLE 800 MG-TRIMETHOPRIM 160 MG TABLET - OXYCODONE-ACETAMINOPHEN 5 MG-325 MG TABLET 4. Injury of left heel, subsequent encounter - ICD9: V58.89, 959.7, ICD10: S99.922D - concerns for left great toenail ingrown infection as well as concerns for heel cellulitis vs. Osteomyelitis due to symptoms of extreme pain and gait changes and warmth, start on antibiotic and needfor pain control. Check Xray and CT foot and follow up with Abstract Clerk STEPHANIE, will go to EMERGENCY DEPARTMENT if symptoms worsen - CONSULT TO PODIATRY - CT FOOT WO IVCON LT - XR FOOT GENERAL 3V AP/LAT/OBL LEFT - SULFAMETHOXAZOLE 800 MG-TRIMETHOPRIM 160 MG TABLET - OXYCODONE-ACETAMINOPHEN 5 MG-325 MG TABLET 5. Left foot pain - ICD9: 729.5, ICD10: M79.672 - concerns for left great toenail ingrown infection as well as concerns for heel cellulitis vs. Osteomyelitis due to symptoms of extreme pain and gait changes and warmth, start on antibiotic and needfor pain control. Check Xray and CT foot and follow up with Abstract Clerk STEPHANIE, will go to EMERGENCY DEPARTMENT if symptoms worsen - CONSULT TO PODIATRY - CT FOOT WO IVCON LT - XR FOOT GENERAL 3V AP/LAT/OBL LEFT - SULFAMETHOXAZOLE 800 MG-TRIMETHOPRIM 160 MG TABLET - OXYCODONE-ACETAMINOPHEN 5 MG-325 MG TABLET Jese Zheng DO PDMP website checked and validated. All prescriptions have been APPROPRIATELY filled. No suspiciousactivity was identified. 12/30/2021 by Jese Zheng DO Return if no improvement. Follow up with Jese Zheng DO. To ER if develops chest pain, shortness of breath Discussed risks, benefits, alternatives, and potential side effects of medications. Patient/Guardian expressed understanding and agreed with the plan. See patient instructions. Jese Zheng DO [address] [place] [address] documented in this encounterGlen[facility]igh Hospital06-11-2022 Instructions* Patient Instructions* Jese Zheng DO - 12/30/2021 10:[address] Elena Cano Abstract Clerk Address: [address] [place] [id number] documented in this encounterGlenbeigh Hospital06-09-2022 Miscellaneous Notes* Telephone Encounter - Scarlett Chisholm Ma - 12/28/2021 2:17 PM EDT Patient was notified and will just keep appointment for sat Scarlett Chisholm Ma * Telephone Encounter - Ankita Green APRN.CNP - 12/28/2021 1:56 PM EDT Prior to additional antibiotic, would recommend evaluation. Agree with appointment. She can also beseen in urgent care if immediate concern. Ankita Green APRN.CNP * Telephone Encounter - Antonette Kurtz LPN - 12/28/2021 1:38 PM EDT Patient calling said her left foot is not looking any better at all after taking almost the entire rx of Doxycycline. She runs out of rx on Saturday. Scheduled patient appt for 12/30 with PCP. Patientasking if antibiotic needs changed? Patient uses [facility] for her pharmacy. Patient is concerned since she is diabetic. Please advise * Telephone Encounter - Aspen Almaguer RN - 12/27/2021 9:29 AM EDT Patient calls to update provider on left foot symptoms. Patient reports pain continues and patient is having difficulty walking. She reports that she is not able to put pressure on foot and is walking on her tippy toes. Denies fever. Reports she is not able to see the area to verify redness. No warmth noted. Area still feels swollen. Patient continues to take doxycycline 100 mg twice daily and has 3 days left. Please review and advise, Aspen Almaguer RN documented in this encounterGlenbeigh Hospital06-03-2022 Miscellaneous Notes* Telephone Encounter - Ankita Green APRN.CNP - 12/22/2021 7:24 AM EDT New order placed for diabetes education. I noted in the comments that she is known to Shayan, and this is just an insurance request to be updated. Ankita Green APRN.CNP * Telephone Encounter - Roxy Christine RN - 12/21/2021 4:51 PM EDT [facility] Senior It Security Analyst was not very specific. Patient had an order for Diabetic Education in the past on 04/22/19. I'll send this to her PCP to see if they will order. oRxy Christine RN * Telephone Encounter - Shayan Martinez RPh - 12/21/2021 4:28 PM EDT I'm not sure what this specific request means. I reached out to patient and have her scheduled for a visit with me in a few weeks. I am uncertain if there is an additional service her insurance is requesting. Shayan Martinez PharmD, [facility] Clinical Pharmacist Eloise Casillas [facility] * Telephone Encounter - Roxy Christine RN - 12/21/2021 3:45 PM EDT Elliot, Senior It Security Analyst @ [facility] calling to request order for Consult to Diabetic Education for patient. Roxy Christine RN documented in this encounterG[facility]06-02-[facility]22 Miscellaneous Notes* Telephone Encounter - Shayan Martinez RPh - 12/21/2021 10:06 AM EDT A1c returned elevated but improved from July. PharmD called patient and relayed info. Requested f/up appt with PharmD for DM mngt - scheduled appt for 01/04 and requested patient to bring in CGM for interpretation. Patient agreed. Shayan Martinez PharmD, [facility] Clinical Pharmacist [facility] documented in this encounterGlenbeigh Hospital06-01-2022 Instructions* Patient Instructions* Ankita Green APRN.PROFESSOR OF PHYSICS - 12/20/2021 9:44 AM EDT If within a week things are not improving or are getting worse, we need to see you in the office again. Start your doxycycline antibiotic, twice daily. If you're able to pick it up this morning, go aheadand take it twice today. documented in this encounterGlenbeigh Hospital06-01-2022 History of Present illness Narrative* Ankita Green APRN.CNP - 12/20/2021 9:33 AM EDT Chief Complaint Patient presents with: Foot Pain (Midfoot): left foot, x 3 months, stepped on tack a couple months ago. HPI Lina Isaac is a 56 year old female who presents here today for Above Complaints. Today: Bottom of her left foot is bothering her. About 3 months ago stepped on a thick pin-kind that is pinned onto your clothing. Has not improved at all. Has treated with epsom salts, antibiotic medication, wrapping. Nothing has improved. Is painful, difficult to walk on. Denies fever. Feels swollen, looks a little bit red. Past medical history, appointments, medications, allergies reviewed. Previous Medical History PAST MEDICAL HISTORY Diagnosis Date Asthma Bowel perforation 11/05/2012 C. difficile colitis 04/2016 Closed nondisplaced fracture of proximal phalanx of lesser toe of left foot with routine healing 10/07/2019 COVID-19 03/30/2021 Diabetes mellitus type 2 in obese (HCC) 10/2013 A1C 6.8% Dyslipidemia 01/02/2019 Essential hypertension 08/11/2015 GERD (gastroesophageal reflux disease) Incisional hernia 06/26/2013 Injury to rectosigmoid colon 10/17/2012 Low HDL (under 40) 10/2013 Nephrolithiasis Osteoarthrosis, unspecified whether generalized or localized, other specified sites Osteoarthritis Bilateral knees Spasm of muscle Tobacco use disorder quit 2012 Unspecified hereditary and idiopathic peripheral neuropathy Vaginal fistula 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 Ramirez HERNIA REPAIR HX 06/22/13 HYSTERECTOMY HX 2011 fistula with intestine HYSTEROSCOPY, DIAGNOSTIC (SEPARATE Hysteroscopy/Novasure LAP HYSTERECTOMY FOR UTERUS 250G OR LESS 10/09/2012 with vaginal sling, LSO, right salpingectomy LAPS ABD PRTM&OMENTUM DX W/WO SPEC BR/WA SPX Laparoscopy LAPS REPAIR HERNIA EXCEPT INCAL/INGUN REDUCIBLE 05/2017 LIG/TRNSXJ FLP TUBE ABDL/VAG APPR UNI/BI 2001 Tubal ligation PAST SURGICAL HISTORY OF 01/30/05 Left shoulder arthroscopy and debridement PAST SURGICAL HISTORY OF 02/22 3rd toe left foot PAST SURGICAL HISTORY OF 03/14/2010 right total knee replacement PAST SURGICAL HISTORY OF 03/14/2009 left total knee replacement PAST SURGICAL HISTORY OF 01/23/2013 Ileostomy closure. PAST SURGICAL HISTORY OF Left 01-06-16 left ring trigger release RPR 1ST INCAL/VNT HERNIA INCARCERATED 06/22/2013 at ileostomy site - 11x[address] \mesh RPR RECRT INCAL/VNT HERNIA INCARCERATED 07/23/14 at midline' RPR RECRT INCAL/VNT HERNIA INCARCERATED 10/11/14 - recurrent small bowel resection, enterotomy Family History FAMILY HISTORY Problem Relation Age of Onset Hypertension Mother Diabetes Mother Cancer Maternal Uncle throat cancer Hypertension Sister Diabetes Sister other (hyperlipidemia) Sister Patient Allergies ALLERGIES Allergen Reactions Lac Hydrin [Other] Dried her feet Omnicef [Cefdinir] Itching Vaginitis severe Proventil [Albutero* Vomiting Can not tolerate generic albuterol 08/22/12 - MEM. Tramadol Hives Current Medications Current Outpatient Medications on File Prior to Visit Medication Sig ibuprofen (MOTRIN) 800 mg tablet Take 1 tablet by mouth every 8 hours as needed for Pain. Take withfood. polyethylene glycol 3350 (MIRALAX) 17 gram/dose powder 1 capful daily in the morning diclofenac (VOLTAREN ARTHRITIS PAIN) 1 % topical gel Apply 2 g to affected area four times daily. famotidine (PEPCID) 20 mg tablet Take 1 tablet by mouth twice daily. calcium citrate-vitamin D3 (CITRACAL+D) 315 mg-5 mcg (200 unit) tab Take 1 tablet by mouth once daily. dulaglutide (TRULICITY) 4.5 mg/0.5 mL pen injector Inject 4.5 mg subcutaneously one time a week. divalproex DR (DEPAKOTE) 250 mg EC tablet Take 1 tablet by mouth twice daily. divalproex DR (DEPAKOTE) 125 mg EC tablet Take 1 tablet by mouth twice daily. lisinopril (ZESTRIL, PRINIVIL) 10 mg tablet Take 1 tablet by mouth once daily. insulin degludec (TRESIBA FLEXTOUCH U-100) 100 unit/mL (3 mL) injection pen Inject 78 Units subcutaneously once daily. insulin aspart U-100 (NOVOLOG FLEXPEN U-100 INSULIN) 100 unit/mL (3 mL) Inject 20 Units subcutaneously three times daily before meals. Plus sliding scale. TDD 84 units/day. metFORMIN (GLUCOPHAGE) 1,000 mg tablet Take 1 tablet by mouth twice daily. glucagon (BAQSIMI) 3 mg/actuation nasal spray Use 1 [place] in the nose as needed for low blood sugar. May repeat after 15 minutes using a new device if there is no response. mupirocin (BACTROBAN) 2 % ointment Apply to affected area. Polyethylene Glycol 1000 powd Use 1 scoop PRN constipation albuterol HFA (VENTOLIN HFA) 90 mcg/actuation inhaler Inhale 2 Puffs as instructed every 4 hours asneeded. For wheezing/shortness of breath. flash glucose sensor (FREESTYLE MICHI 14 DAY SENSOR) kit Apply sensor to back of arm to check bloodsugars as directed. Change sensor every 2 weeks and rotate arms. alcohol swabs (BD SINGLE USE SWABS REGULAR) Use as directed 4 to 5 times daily to check blood sugars and with insulin injections aspirin, enteric coated (ASPIRIN, ENTERIC COATED) 81 mg EC tablet Take 1 tablet by mouth once daily. atorvastatin (LIPITOR) 40 mg tablet Take 1 tablet by mouth once daily. blood sugar diagnostic (FREESTYLE PRECISION JEREMIAS STRIPS) test strip Use to test blood sugar up to twice daily as instructed. Dx: insulin-dependent DM Insulin [place], Disposable, (UNIFINE PENTIPS) 31 gauge x 3/16 Use as directed 4 times daily with insulin flash glucose scanning reader (FREESTYLE MICHI 14 DAY READER) [facility] [place] to test blood sugar as directed. albuterol (PROVENTIL) 2.5 mg /3 mL (0.083 %) nebulizer solution Use 3 mL via nebulizer every 4 hours as needed for Wheezing/Shortness of Breath. Use over 5-15minutes. blood sugar diagnostic (FREESTYLE LITE STRIPS) test strip Test blood glucose three times daily as instructed. E11.9, E66.9 UNILET SUPER THIN LANCETS 30 gauge misc Test blood sugar once daily. Blood-Glucose Meter (FREESTYLE LITE METER) monitoring kit Freestyle LITE Meter Kit - glucose 4 gram chewable tablet Take 4 tablets by mouth as needed. For blood sugars less than 70 Oral Medication Containers (BD SHARPS SPRING SALVAGE WORKER) misc Use as instructed for DM supply disposal DM: yes Insulin: yes DX:11.9 EASY TOUCH 32 gauge x 3/16 ndle use once daily to inject insulin benzonatate (TESSALON PERLES) 100 mg capsule Take 1 capsule by mouth three times daily as needed for cough. (Patient not taking: Reported on 12/20/2021 ) No current facility-administered medications on file prior to visit. Social History Social History Tobacco Use Smoking status: Former Smoker Packs/day: 0.50 Years: 24.00 Pack years: 12.00 Types: Cigarettes Quit date: 05/13/2013 Years since quittin.6 Smokeless tobacco: Never Used Vaping Use Vaping Use: Never used Substance Use Topics Alcohol use: No Drug use: No Review of Symptoms REVIEW OF SYSTEMS PAIN ASSESSMENT: CURRENTLY HAVING PAIN; LOCATION/DISTRIBUTION: left heel PAIN SCALE: 5 on 0-10 scale per patient PAIN CHARACTER: aching, sharp and shooting DURATION: (How long have you had the pain?) 3 months AGGRAVATING FACTORS: palpation, activity and walking ALLEVIATING FACTORS: sitting CARDIOVASCULAR: Negative for chest pain, leg swelling, hypertension, CHF or palpitations MUSCULOSKELETAL: Negative for joint pain or swelling, back pain or muscle pain SKIN: Negative for lesions, rash, and itching. EXAM: BP 144/96 (BP Site: Left Arm, BP Position: Sitting, BP Cuff Size: Regular Adult) Pulse 91 Resp 16 Wt 96.1 kg (211 lb 12.8 oz) LMP 08/30/2012 SpO2 100% BMI 32.20 kg/m General Appearance: Well appearing, alert, in no acute distress, well-hydrated, well nourished.. Skin: Skin color, texture, turgor normal, no suspicious rashes or lesions, Positive swelling and reddened area plantar surface of left heel. Heart: RRR without murmur, gallop, or rubs. No ectopy. Extremities: Positive swelling and reddened area plantar surface of left heel. Musculoskeletal: Negative. Peripheral Pulses: Normal. Health Maintenance List HEPATITIS B(1 of 3 - Risk 3-dose series) Never done PNEUMOCOCCAL(2 - PCV) due on 01/26/2014 SHINGRIX VACCINE(1 of 2) Never done HBA1C due on 11/12/2021 COVID-19 VACCINE(3 - Booster for Pfizer series) due on 12/16/2021 URINE ALBUMIN:CREATININE RATIO due on 05/09/2022 LDL CHOLESTEROL due on 05/09/2022 DIABETIC FOOT EXAM due on 08/14/2022 BP CONTROLLED (<130/80) due on 08/14/2022 MAMMOGRAM due on 08/22/2022 DILATED RETINAL EXAM due on 08/30/2022 DEPRESSION SCREENING due on 10/09/2022 ANNUAL PCP TEAM CHRONIC DISEASE VISIT due on 11/14/2022 DTAP,TDAP,TD(3 - Td or Tdap) due on 01/29/2024 COLORECTAL CANCER SCREENING due on 08/16/2025 INFLUENZA Completed HEPATITIS C SCREENING Completed HIV SCREENING Completed PAP TESTING Discontinued HPV TESTING Discontinued Data reviewed Previous records, office notes ASSESSMENT/PLAN: 1. Cellulitis of left foot - ICD9: 682.7, ICD10: L03.116 - Begin treatment with doxycycline per below - No lymphangetic streaking, this was defined for patient to watch for and to seek medical care immediately if appears Follow up within 1 week if worsening or not improving - DOXYCYCLINE HYCLATE 100 MG TABLET - FLUCONAZOLE 150 MG TABLET Ankita Green APRN.CARLITOS documented in this encounterGlen[facility] Hospital05-02-2022 Miscellaneous Notes* Telephone Encounter - Hayde Duckworth Ma - 11/20/2021 7:19 AM EDT Please see pt message. Sx are not improving. Consult to ortho pended, please advise. Hayde Duckworth Ma documented in this encounterGlenbeigh Hospital04-27-2022 Miscellaneous Notes* Telephone Encounter - Pippa De La Rosa LPN - 11/15/2021 9:48 AM EDT Left detailed message to remind pt of labs. * Telephone Encounter - Jese Zheng DO - 11/15/2021 7:25 AM EDT Please call patient to remind her to have her labs drawn fasting Jese Zheng DO documented in this encounterGlenbeigh Hospital04-26-2022 History of Present illness Narrative* Concepcion Ocampo RT(R) - 11/14/2021 10:40 AM EDT Radiology Service Progress Note PATIENT NAME: Lina Isaac DATE OF SERVICE: November 14, 2021 TIME: 10:57 AM PATIENT IDENTITY VERIFICATION COMPLETED USING TWO (2) IDENTIFIERS: Name and Date of confirmedby patient verbally. FALL SCREENING: Has the patient had 2 falls in the last year or 1 fall with injury or currently using an Ambulatory Assistive Device (Walker, Cane, Wheelchair, Crutches, etc.)? No PATIENT GENDER DATA: Female. status: : No status: NO. PATIENT RELEVANT IMPLANT DATA REVIEWED: Yes RADIOLOGY DEPARTMENT: General X-ray: Exam(s) Completed: Upper Extremity X- Ray(s): Wrist, left and Hand, left PERIPHERAL IV DATA: Not applicable SIGNED BY: RT Nando(R) November 14, 2021 10:57 AM documented in this encounterGlenbeigh Hospital04-26-2022 History of Present illness Narrative* Jese Zheng DO - 11/14/2021 10:24 AM EDT Patient presents with: Follow Up: 3 month HPI: Lina Isaac is a 56 year old female who presents to the office today for review of health conditions. Concerns today: Chronic intermittent abdominal pain, improved with use of miralax daily to keep bowels regular and soft, denies any current pain or bloating or nausea or vomiting. Has been seen by surgeon who feels her symptoms are likely related to adhesions/scar tissue. Hasn't had her diabetes labs redrawn. Trying to get back on track with her diet. Left thumb pain, started about 1 month ago when she was letting up a baby seat and it lenka and she felt a popping sensation in her thumb/wrist area. Since then it is bothering her with use of her thumb/hand. No obvious current swelling or bruising, no routine use of ice or heat or NSAIDs. No use of a brace Ms. Isaac has past history of diabetes. Since our last visit she denies excessive thirst or increased frequency of urination, chest pain or dyspnea , new or unusual visual symptoms and low sugar/hypoglycemic reactions. Follows a diabetic diet some of the time. She is compliant with medication(s) and is tolerating med(s) without any side effects. Patient's last HgA1C was Hemoglobin A1C (%) Date Value 08/14/2021 11.2 05/09/2021 12.1 ) Last Ophthalmology exam was within the past 12 months Ms. Isaac reports history of hyperlipidemia. Current therapy includes atorvastatin (Lipitor) 40 mg.Denies side effects of muscle weakness or achiness. Her most recent lipid panels are reviewed. Cholesterol, Total (mg/dL) Date Value 05/09/2021 205 HDL Cholesterol (mg/dL) Date Value 05/09/2021 54 LDL Cholesterol (mg/dL) Date Value 05/09/2021 127 Triglyceride (mg/dL) Date Value 05/09/2021 120 Ms. Isaac indicates a history of hypertension and states that she is feeling well and denies any symptoms referable to elevated blood pressure. Specifically denies headache, chest pain, palpitations,dyspnea and peripheral edema. Patient denies any side effects of her medication(s) and is compliantwith their regimen. Last 3 Encounter BP Readings: Date: BP: 11/14/2021 138/82 10/13/2021 146/90 10/12/2021 161/87 She watches her diet for sodium, low fat and low cholesterol some of the time. She does not check BP's generally. [place] gets minimal exercise. PAST MEDICAL HISTORY Diagnosis Date Asthma Bowel perforation 11/05/2012 C. difficile colitis 04/2016 Closed nondisplaced fracture of proximal phalanx of lesser toe of left foot with routine healing 10/07/2019 COVID-19 03/30/2021 Diabetes mellitus type 2 in obese (HCC) 10/2013 A1C 6.8% Dyslipidemia 01/02/2019 Essential hypertension 08/11/2015 GERD (gastroesophageal reflux disease) Incisional hernia 06/26/2013 Injury to rectosigmoid colon 10/17/2012 Low HDL (under 40) 10/2013 Nephrolithiasis Osteoarthrosis, unspecified whether generalized or localized, other specified sites Osteoarthritis Bilateral knees Spasm of muscle Tobacco use disorder quit 2012 Unspecified hereditary and idiopathic peripheral neuropathy Vaginal fistula 11/27/2012 PAST SURGICAL HISTORY Procedure Laterality Date DELIVERY ONLY 1986 , low cervical DELIVERY ONLY 2001 , low transverse COLONOSCOPY 08/16/15 Dr. Ramirez HERNIA REPAIR HX 06/22/13 HYSTERECTOMY HX 2011 fistula with intestine HYSTEROSCOPY, DIAGNOSTIC (SEPARATE Hysteroscopy/Novasure LAP HYSTERECTOMY FOR UTERUS 250G OR LESS 10/09/2012 with vaginal sling, LSO, right salpingectomy LAPS ABD PRTM&OMENTUM DX W/WO SPEC BR/WA SPX Laparoscopy LAPS REPAIR HERNIA EXCEPT INCAL/INGUN REDUCIBLE 05/2017 LIG/TRNSXJ FLP TUBE ABDL/VAG APPR UNI/BI 2001 Tubal ligation PAST SURGICAL HISTORY OF 01/30/05 Left shoulder arthroscopy and debridement PAST SURGICAL HISTORY OF 02/22 3rd toe left foot PAST SURGICAL HISTORY OF 03/14/2010 right total knee replacement PAST SURGICAL HISTORY OF 03/14/2009 left total knee replacement PAST SURGICAL HISTORY OF 01/23/2013 Ileostomy closure. PAST SURGICAL HISTORY OF Left 6-17-16 left ring trigger release RPR 1ST INCAL/VNT HERNIA INCARCERATED 06/22/2013 at ileostomy site - 11x[address] \mesh RPR RECRT INCAL/VNT HERNIA INCARCERATED 07/23/14 at midline' RPR RECRT INCAL/VNT HERNIA INCARCERATED 10/11/14 - recurrent small bowel resection, enterotomy Social History Tobacco Use Smoking status: Former Smoker Packs/day: 0.50 Years: 24.00 Pack years: 12.00 Types: Cigarettes Quit date: 05/13/2013 Years since quittin.5 Smokeless tobacco: Never Used Vaping Use Vaping Use: Never used Substance Use Topics Alcohol use: No Drug use: No FAMILY HISTORY Problem Relation Age of Onset Hypertension Mother Diabetes Mother Cancer Maternal Uncle throat cancer Hypertension Sister Diabetes Sister other (hyperlipidemia) Sister Allergies: ALLERGIES Allergen Reactions Lac Hydrin [Other] Dried her feet Omnicef [Cefdinir] Itching Vaginitis severe Proventil [Albutero* Vomiting Can not tolerate generic albuterol 08/22/12 - MEM. Tramadol Hives Current Meds: ibuprofen (MOTRIN) 800 mg tablet Take 1 tablet by mouth every 8 hours as needed for Pain. Take withfood. diclofenac (VOLTAREN ARTHRITIS PAIN) 1 % topical gel Apply 2 g to affected area four times daily. famotidine (PEPCID) 20 mg tablet Take 1 tablet by mouth twice daily. calcium citrate-vitamin D3 (CITRACAL+D) 315 mg-5 mcg (200 unit) tab Take 1 tablet by mouth once daily. dulaglutide (TRULICITY) 4.5 mg/0.5 mL pen injector Inject 4.5 mg subcutaneously one time a week. divalproex DR (DEPAKOTE) 250 mg EC tablet Take 1 tablet by mouth twice daily. divalproex DR (DEPAKOTE) 125 mg EC tablet Take 1 tablet by mouth twice daily. lisinopril (ZESTRIL, PRINIVIL) 10 mg tablet Take 1 tablet by mouth once daily. insulin degludec (TRESIBA FLEXTOUCH U-100) 100 unit/mL (3 mL) injection pen Inject 78 Units subcutaneously once daily. insulin aspart U-100 (NOVOLOG FLEXPEN U-100 INSULIN) 100 unit/mL (3 mL) Inject 20 Units subcutaneously three times daily before meals. Plus sliding scale. TDD 84 units/day. metFORMIN (GLUCOPHAGE) 1,000 mg tablet Take 1 tablet by mouth twice daily. glucagon (BAQSIMI) 3 mg/actuation nasal spray Use 1 [place] in the nose as needed for low blood sugar. May repeat after 15 minutes using a new device if there is no response. mupirocin (BACTROBAN) 2 % ointment Apply to affected area. Polyethylene Glycol 1000 powd Use 1 scoop PRN constipation albuterol HFA (VENTOLIN HFA) 90 mcg/actuation inhaler Inhale 2 Puffs as instructed every 4 hours asneeded. For wheezing/shortness of breath. flash glucose sensor (FREESTYLE MICHI 14 DAY SENSOR) kit Apply sensor to back of arm to check bloodsugars as directed. Change sensor every 2 weeks and rotate arms. alcohol swabs (BD SINGLE USE SWABS REGULAR) Use as directed 4 to 5 times daily to check blood sugars and with insulin injections aspirin, enteric coated (ASPIRIN, ENTERIC COATED) 81 mg EC tablet Take 1 tablet by mouth once daily. atorvastatin (LIPITOR) 40 mg tablet Take 1 tablet by mouth once daily. blood sugar diagnostic (FREESTYLE PRECISION JEREMIAS STRIPS) test strip Use to test blood sugar up to twice daily as instructed. Dx: insulin-dependent DM Insulin [place], Disposable, (UNIFINE PENTIPS) 31 gauge x 3/16 Use as directed 4 times daily with insulin flash glucose scanning reader (FREESTYLE MICHI 14 DAY READER) [facility] [place] Use to test blood sugar as directed. albuterol (PROVENTIL) 2.5 mg /3 mL (0.083 %) nebulizer solution Use 3 mL via nebulizer every 4 hours as needed for Wheezing/Shortness of Breath. Use over 5-15minutes. blood sugar diagnostic (FREESTYLE LITE STRIPS) test strip Test blood glucose three times daily as instructed. E11.9, E66.9 UNILET SUPER THIN LANCETS 30 gauge [facility] [place] Test blood sugar once daily. Blood-Glucose Meter (FREESTYLE LITE METER) monitoring kit Freestyle LITE Meter Kit - glucose 4 gram chewable tablet Take 4 tablets by mouth as needed. For blood sugars less than 70 Oral Medication Containers (BD SHARPS SPRING SALVAGE WORKER) [facility] [place] Use as instructed for DM supply disposal DM: yes Insulin: yes DX:11.9 EASY TOUCH 32 gauge x 3/16 ndle use once daily to inject insulin polyethylene glycol 3350 (MIRALAX) 17 gram/dose powder 1 capful daily in the morning benzonatate (TESSALON PERLES) 100 mg capsule Take 1 capsule by mouth three times daily as needed for cough. Review of Systems: The remainder of the review of systems is negative. PE: 11/14/21 1001 BP: 138/82 Pulse: 98 Resp: 16 SpO2: 98% Weight: 95.7 kg (211 lb) Gen: A&O, NAD, non-toxic appearing, Pleasant, cooperative HEENT: NT/AC, PERRLA, wearing glasses, EOMs intact b/l, nares clear and patent b/l, pharynx withouterythema, exudate or lesions. Uvula midline. MMM Neck: supple, No cervical LAD, no thyromegaly, no carotid bruits CV: RRR, normal S1 and S2, no murmurs, no gallops, no rubs, Pulses 2+ and symmetric in UE and LE b/l Lungs: normal respiratory effort, CTA b/l, no wheezing or rhonchi or rales Abd: soft, NT, ND, +BS, no hepatosplenomegaly MS: left thumb with pain at base of MCP joint with abduction and adduction ROM, no obvious joint deformity, mild pain into distal wrist, no pain at area of scaphoid or distal finger Neuro: CN II-XII intact b/l, strength 5/5 b/l UE and LE, DTRs 2/4 UE and LE, sensation intact. Skin: warm, dry, intact, No rashes or lesions on exposed skin. Foot exam: no edema ASSESSMENT/PLAN: 1. Uncontrolled type 2 diabetes mellitus with hyperglycemia (HCC) - ICD9: 250.02, ICD10: E11.65 (primary diagnosis) uncontrolled poorly controlled Poor adherence to plan of care. - Continue current medications - Check HgA1C, fasting glucose, fasting lipid panel, CMP and CBC - Blood glucose monitoring on a three times a day schedule 2. Essential hypertension - ICD9: 401.9, ICD10: I10 - good control - Continue current medication(s) - Encouraged dietary sodium restriction/DASH diet - Recommended regular aerobic exercise. - Recommend home blood pressure monitoring, to bring results in on next visit - Discussed need and benefit for weight loss. - Goal of BP <130/80 3. Chronic constipation - ICD9: 564.00, ICD10: K59.09 - rx refilled, improved symptoms - POLYETHYLENE GLYCOL 3350 17 GRAM/DOSE ORAL POWDER 4. Injury of left thumb, initial encounter - ICD9: 959.5, ICD10: S69.92XA - need for rest, direct icing 2-3 times a day, topical NSAID 2-3 times a day and use of thumb spicasplint. xrays as ordered, suspect is a tendon strain - WRIST SPLINT - THUMB SPICA - DICLOFENAC 1 % TOPICAL GEL - XR WRIST GENERAL 3V PA/LAT/OBL LEFT - XR HAND GENERAL 3V PA/LAT/OBL LEFT 5. Injury of left wrist, initial encounter - ICD9: 959.3, ICD10: S69.92XA - need for rest, direct icing 2-3 times a day, topical NSAID 2-3 times a day and use of thumb spicasplint. xrays as ordered, suspect is a tendon strain - WRIST SPLINT - THUMB SPICA - DICLOFENAC 1 % TOPICAL GEL - XR WRIST GENERAL 3V PA/LAT/OBL LEFT - XR HAND GENERAL 3V PA/LAT/OBL LEFT 6. Hyperlipidemia, mixed - ICD9: 272.2, ICD10: E78.2 - to be determined upon return of lab results - Encouraged following a low fat, low cholesterol diet. - Discussed the benefits of regular aerobic exercise and weight loss. - Check fasting lipid panel 7. Generalized abdominal pain - ICD9: 789.07, ICD10: R10.84 - Improved/managed with good bowel routine 8. Obesity, Class I, BMI 30-34.9 - ICD9: 278.00, ICD10: E66.9 Stable - Behavioral intervention, - Eat well program and - Continue current medications Jese Zheng DO To ER if develops chest pain, shortness of breath, or severe worsening of symptoms. Discussed risks, benefits, alternatives, and potential side effects of medications. Patient expressed understanding and agreed with the plan. Jese Zheng DO [address] [id number] documented in this encounterGlenbeigh Hospital04-26-2022 Instructions* Patient Instructions* Jese Zheng DO - 11/14/2021 10:21 AM EDT Ice the thumb and wrist for 10 minutes twice a day. Then dry off area with towel and apply topical voltaren 1% gel (pea sized) amount twice a day Wear thumb spica splint during the day when able and wear this at bedtime. Okay to take off when shower etc. Follow up with Orthopedics [facility] Miscellaneous Notes* Telephone Encounter - Antonette Kurtz LPN - 10/30/2021 1:17 PM EDT Patient calling asking for refills of medications that pharmacy is telling has no more refills on her [employer] program. Computer shows these have not been refilled for quite some time. Patient said she had still be getting rx filled from the pharmacy. Pending rx needs completed. Please advise Patient has been identified by name and date of : Yes Patient phones for refill(s): Pending Prescriptions Disp Refills IBUPROFEN 800 MG TABLET Sig: Take 1 tablet by mouth every 8 hours as needed for Pain. Take with food. TANNA: No FAMOTIDINE 20 MG TABLET 180 tablet 3 Sig: Take 1 tablet by mouth twice daily. TANNA: No CALCIUM CITRATE 315 MG-VITAMIN D3 5 MCG (200 UNIT) TABLET Sig: Take 1 tablet by mouth once daily. TANNA: No Date of last office visit in primary care: 10/13/2021, has appt 11/14/2021 Last 2 Encounter Wt Readings: Date: Wt: 10/13/2021 97.1 kg (214 lb) 10/12/2021 97.5 kg (215 lb) Previous labs/tests for medication: Not applicable Please advise. Thank you. Antonette Kurtz LPN documented in this [facility] History of Present illness Narrative* Chichi Pickard, RT(R) - 10/18/2021 3:00 PM EDT Radiology Service Progress Note PATIENT NAME: Lina Isaac DATE OF SERVICE: October 18, 2021 TIME: 3:44 PM PATIENT IDENTITY VERIFICATION COMPLETED USING TWO (2) IDENTIFIERS: Name and Date of confirmedby patient verbally. FALL SCREENING: Has the patient had 2 falls in the last year or 1 fall with injury or currently using an Ambulatory Assistive Device (Walker, Cane, Wheelchair, Crutches, etc.)? No PATIENT GENDER DATA: Female. status: : No status: NO. PATIENT RELEVANT IMPLANT DATA REVIEWED: Not Applicable RADIOLOGY DEPARTMENT: CT; Exam(s) Completed: Abdomen/Pelvis PERIPHERAL IV DATA: Not applicable SIGNED BY: RT Rodney(R) October 18, 2021 3:44 PM documented in this encounterG[facility]03-29-[facility]22 Miscellaneous Notes* Telephone Encounter - Scarlett MARTINEZ - 10/17/2021 10:15 AM EDT Upon checking, patient's referral through [facility] was Authorized and I called the patient to reschedule sooner. Patient answered and is scheduled tomorrow, 10/18/21, for the CT Scan. Sarah * Telephone Encounter - Marci Koch RN - 10/16/2021 3:16 PM EDT Martjohnny called. She saw Dr. Ramirez on October [address] Ramirez told her to take Miralaxeveryday to help with her abdominal pain. She has taken the Miralax daily and she has been moving her bowels on a regular basis, but she is still complaining of abdominal pain 6-01/28 that will not goaway. Is there anything else that she should be or could be doing? The CT scan of her abdomen is not scheduled until 10/30/2021. Please advise. Marci Koch RN documented in this encounterG[facility]03-25-[facility]22 History of Present illness Narrative* Jese Zheng DO - 10/13/2021 8:47 AM EDT Patient presents with: Follow Up HPI: Lina Isaac is a 55 year old female who presents to the office today for review of health conditions. Concerns today: Abdominal pain, started last , sharp stabbing intermittent. Had 2 large BM that day and woke up the next day on Saturday with abdominal pain that lasted all day. Saturday pain was worse and states that she had to lay in the position for any comfort. Sun the pain was mild and was able toeat a little but did vomit up food from 2-3 days prior that she had eaten. Did have bowel movement this week Tues and Wed but only small amount. Hx of bowel obstruction in the past. Will be seeing her surgeon today for evaluation. Ms. Isaac has past history of diabetes. Since our last visit she denies excessive thirst or increased frequency of urination, chest pain or dyspnea , new or unusual visual symptoms and low sugar/hypoglycemic reactions. Follows a diabetic diet some of the time. She is compliant with medication(s) and is tolerating med(s) without any side effects. She reports checking her glucose on a once a day schedule with sugars in the <200 range. Patient's last HgA1C was Hemoglobin A1C (%) Date Value 08/14/2021 11.2 05/09/2021 12.1 ) Last Ophthalmology exam was within the past 12 months Ms. Isaac reports history of hyperlipidemia. Current therapy includes atorvastatin (Lipitor) 40 mg.Denies side effects of muscle weakness or achiness. Her most recent lipid panels are reviewed. Cholesterol, Total (mg/dL) Date Value 05/09/2021 205 HDL Cholesterol (mg/dL) Date Value 05/09/2021 54 LDL Cholesterol (mg/dL) Date Value 05/09/2021 127 Triglyceride (mg/dL) Date Value 05/09/2021 120 Ms. Isaac indicates a history of hypertension and states that she is feeling well and denies any symptoms referable to elevated blood pressure. Specifically denies headache, chest pain, palpitations,dyspnea and peripheral edema. Patient denies any side effects of her medication(s) and is compliantwith their regimen. Last 3 Encounter BP Readings: Date: BP: 10/13/2021 146/90 10/12/2021 161/87 09/28/2021 152/90 She watches her diet for sodium, low fat and low cholesterol some of the time. She does not check BP's generally. Lina gets minimal exercise. PAST MEDICAL HISTORY Diagnosis Date Asthma Bowel perforation 11/05/2012 C. difficile colitis 04/2016 Closed nondisplaced fracture of proximal phalanx of lesser toe of left foot with routine healing 10/07/2019 COVID-19 03/30/2021 Diabetes mellitus type 2 in obese (HCC) 10/2013 A1C 6.8% Dyslipidemia 01/02/2019 Essential hypertension 08/11/2015 GERD (gastroesophageal reflux disease) Incisional hernia 06/26/2013 Injury to rectosigmoid colon 10/17/2012 Low HDL (under 40) 10/2013 Nephrolithiasis Osteoarthrosis, unspecified whether generalized or localized, other specified sites Osteoarthritis Bilateral knees Spasm of muscle Tobacco use disorder quit 2012 Unspecified hereditary and idiopathic peripheral neuropathy Vaginal fistula 11/27/2012 PAST SURGICAL HISTORY Procedure Laterality Date DELIVERY ONLY 1986 , low cervical DELIVERY ONLY 2001 , low transverse COLONOSCOPY 08/16/15 Dr. Ramirez HERNIA REPAIR HX 06/22/13 HYSTERECTOMY HX 2011 fistula with intestine HYSTEROSCOPY, DIAGNOSTIC (SEPARATE Hysteroscopy/Novasure LAP HYSTERECTOMY FOR UTERUS 250G OR LESS 10/09/2012 with vaginal sling, LSO, right salpingectomy LAPS ABD PRTM&OMENTUM DX W/WO SPEC BR/WA SPX Laparoscopy LAPS REPAIR HERNIA EXCEPT INCAL/INGUN REDUCIBLE 05/2017 LIG/TRNSXJ FLP TUBE ABDL/VAG APPR UNI/BI 2001 Tubal ligation PAST SURGICAL HISTORY OF 01/30/05 Left shoulder arthroscopy and debridement PAST SURGICAL HISTORY OF 02/22 3rd toe left foot PAST SURGICAL HISTORY OF 03/14/2010 right total knee replacement PAST SURGICAL HISTORY OF 03/14/2009 left total knee replacement PAST SURGICAL HISTORY OF 01/23/2013 Ileostomy closure. PAST SURGICAL HISTORY OF Left 6-17-16 left ring trigger release RPR 1ST INCAL/VNT HERNIA INCARCERATED 06/22/2013 at ileostomy site - 11x[address] \mesh RPR RECRT INCAL/VNT HERNIA INCARCERATED 07/23/14 at midline' RPR RECRT INCAL/VNT HERNIA INCARCERATED 10/11/14 - recurrent small bowel resection, enterotomy Social History Tobacco Use Smoking status: Former Smoker Packs/day: 0.50 Years: 24.00 Pack years: 12.00 Types: Cigarettes Quit date: 05/13/2013 Years since quittin.4 Smokeless tobacco: Never Used Vaping Use Vaping Use: Never used Substance Use Topics Alcohol use: No Drug use: No FAMILY HISTORY Problem Relation Age of Onset Hypertension Mother Diabetes Mother Cancer Maternal Uncle throat cancer Hypertension Sister Diabetes Sister other (hyperlipidemia) Sister Allergies: ALLERGIES Allergen Reactions Lac Hydrin [Other] Dried her feet Omnicef [Cefdinir] Itching Vaginitis severe Proventil [Albutero* Vomiting Can not tolerate generic albuterol 08/22/12 - MEM. Tramadol Hives Current Meds: divalproex DR (DEPAKOTE) 250 mg EC tablet Take 1 tablet by mouth twice daily. divalproex DR (DEPAKOTE) 125 mg EC tablet Take 1 tablet by mouth twice daily. lisinopril (ZESTRIL, PRINIVIL) 10 mg tablet Take 1 tablet by mouth once daily. insulin aspart U-100 (NOVOLOG FLEXPEN U-100 INSULIN) 100 unit/mL (3 mL) Inject 20 Units subcutaneously three times daily before meals. Plus sliding scale. TDD 84 units/day. metFORMIN (GLUCOPHAGE) 1,000 mg tablet Take 1 tablet by mouth twice daily. glucagon (BAQSIMI) 3 mg/actuation nasal spray Use 1 [place] in the nose as needed for low blood sugar. May repeat after 15 minutes using a new device if there is no response. ibuprofen (MOTRIN) 800 mg tablet Take 1 tablet by mouth every 8 hours as needed for Pain. Take withfood. mupirocin (BACTROBAN) 2 % ointment Apply to affected area. Polyethylene Glycol 1000 powd Use 1 scoop PRN constipation albuterol HFA (VENTOLIN HFA) 90 mcg/actuation inhaler Inhale 2 Puffs as instructed every 4 hours asneeded. For wheezing/shortness of breath. dulaglutide (TRULICITY) 3 mg/0.5 mL pen injector Inject 3 mg subcutaneously one time a week. flash glucose sensor (FREESTYLE MICHI 14 DAY SENSOR) kit Apply sensor to back of arm to check bloodsugars as directed. Change sensor every 2 weeks and rotate arms. alcohol swabs (BD SINGLE USE SWABS REGULAR) Use as directed 4 to 5 times daily to check blood sugars and with insulin injections aspirin, enteric coated (ASPIRIN, ENTERIC COATED) 81 mg EC tablet Take 1 tablet by mouth once daily. atorvastatin (LIPITOR) 40 mg tablet Take 1 tablet by mouth once daily. diclofenac (VOLTAREN ARTHRITIS PAIN) 1 % topical gel Apply 2 g to affected area four times daily. blood sugar diagnostic ([employer] AnalyticsSTYLE PRECISION JEREMIAS STRIPS) test strip Use to test blood sugar up to twice daily as instructed. Dx: insulin-dependent DM famotidine (PEPCID) 20 mg tablet Take 1 tablet by mouth twice daily. Insulin [place], Disposable, (UNIFINE PENTIPS) 31 gauge x 3/16 Use as directed 4 times daily with insulin flash glucose scanning reader (FREESTYLE MICHI 14 DAY READER) [facility] [place] to test blood sugar as directed. albuterol (PROVENTIL) 2.5 mg /3 mL (0.083 %) nebulizer solution Use 3 mL via nebulizer every 4 hours as needed for Wheezing/Shortness of Breath. Use over 5-15minutes. blood sugar diagnostic (FREESTYLE LITE STRIPS) test strip Test blood glucose three times daily as instructed. E11.9, E66.9 calcium citrate-vitamin D3 (CITRACAL+D) 315-200 mg-unit tab TAKE 2 TABLETS BY MOUTH TWICE DAILY UNILET SUPER THIN LANCETS 30 gauge misc Test blood sugar once daily. Blood-Glucose Meter (FREESTYLE LITE METER) monitoring kit Freestyle LITE Meter Kit - glucose 4 gram chewable tablet Take 4 tablets by mouth as needed. For blood sugars less than 70 Oral Medication Containers (BD [employer] SALVAGE WORKER) [facility] [place] Use as instructed for DM supply disposal DM: yes Insulin: yes DX:11.9 EASY TOUCH 32 gauge x 3/16 ndle use once daily to inject insulin insulin degludec (TRESIBA FLEXTOUCH U-100) 100 unit/mL (3 mL) injection pen Inject 78 Units subcutaneously once daily. benzonatate (TESSALON PERLES) 100 mg capsule Take 1 capsule by mouth three times daily as needed for cough. Review of Systems: The remainder of the review of systems is negative. PE: 10/13/21 0840 BP: 146/90 Pulse: 80 Resp: 16 Temp: 36.2 C (97.1 F) TempSrc: Left Tympanic Weight: 97.1 kg (214 lb) Gen: A&O, NAD, non-toxic appearing, appears mildly uncomfortable in office. cooperative HEENT: NT/AC, PERRLA,wearing glasses, EOMs intact b/l, nares clear and patent b/l, pharynx without erythema, exudate or lesions. MMM, Uvula midline. EACs without erythema or debris. TMs pearly julien with intact landmarks b/l. Neck: supple, No cervical LAD, no thyromegaly, no carotid bruits CV: RRR, normal S1 and S2, no murmurs, no gallops, no rubs, Pulses 2+ and symmetric in UE and LE b/l Lungs: normal respiratory effort, CTA b/l, no wheezing or rhonchi or rales Abd: soft, obese, diffuse mild TTP without r/r/g, ND, +BS, no hepatosplenomegaly MS: FROM all 4 extremities Neuro: CN II-XII intact b/l, strength 5/5 b/l UE and LE, DTRs 2/4 UE and LE, sensation intact. Skin: warm, dry, intact, No rashes or lesions on exposed skin. Foot exam: no edema, normal pulses, no ulcerations ASSESSMENT/PLAN: 1. Uncontrolled type 2 diabetes mellitus with hyperglycemia (HCC) - ICD9: 250.02, ICD10: E11.65 (primary diagnosis) uncontrolled improved control - Increase Trulicity - TRULICITY 4.5 MG/0.5 ML SUBCUTANEOUS PEN INJECTOR 2. Essential hypertension - ICD9: 401.9, ICD10: I10 - suboptimal control - Continue current medication(s) - Encouraged dietary sodium restriction/DASH diet - Recommended regular aerobic exercise. - Recommend home blood pressure monitoring, to bring results in on next visit - Discussed need and benefit for weight loss. - Goal of BP <130/80 - Recommend home or pharmacy blood pressure monitoring - Recommended no refined sugar, low refined starch, healthy oil intake (olive oil), healthy protein(fish) along the lines of the Mediterranean diet. 3. Hyperlipidemia, mixed - ICD9: 272.2, ICD10: E78.2 - to be determined upon return of lab results - Encouraged following a low fat, low cholesterol diet. - Discussed the benefits of regular aerobic exercise and weight loss. - Check fasting lipid panel and ALT in 12 weeks. 4. Generalized abdominal pain - ICD9: 789.07, ICD10: R10.84 Follow up with general surgeon, likely to need repeat abdominal CT or xray and other testing. Long standing history of abdominal obstruction and surgery Jese Zheng, DO To ER if develops chest pain, shortness of breath, or severe worsening of symptoms. Discussed risks, benefits, alternatives, and potential side effects of medications. Patient expressed understanding and agreed with the plan. Jese Zheng DO [address] [place] [address] documented in this [facility] History of Past illness Narrative* Problem Noted Date Resolved Date Neck pain 10/03/2021 12/20/2021 Incarcerated incisional hernia 10/12/2014 0 08/11/2015 Strangulated incisional hernia 07/24/2014 0 08/11/2015 Diabetes mellitus with renal manifestation 03/1908/11/2015 Albuminuria 03/19/2014 08/11/2015 Postoperative seroma 10/28/2013 08/11/2015 Parastomal hernia of ileal conduit 05/02/2013 08/11/2015 Vaginal fistula 11/27/2012 08/11/2015 Bowel perforation 11/05/2012 08/11/[address] 11/05/2012 08/11/2015 Injury to rectosigmoid colon 10/17/2012 Pelvic pain 07/10/2012 08/11/2015 Dyspareunia 07/10/2012 08/11/2015 Fibroids 07/10/2012 08/11/2015 Sprain of neck 05/18/2011 06/24/2012 Reaction, situational, acute, to stress 05/18/20 10 08/11/2015 Localized osteoarthrosis not specified whether primary or secondary, lower leg 05/13/2007 08/11/2015 Contusion of foot 02/18/2007 06/24/2012 Corns and callosities 10/14/2006 08/11/2015 Primary Localized Osteoarthrosis, Lower Leg 02/2108/11/2015 Other Specified Disorder of Skin 02/18/2006 06/24/2012 Tobacco use disorder 06/24/2012 Spasm of muscle 08/11/2015 Asthma 08/11/2015 documented as of this encounter (statuses as of 12/20/2021) [facility] of Past illness Narrative* Problem Noted Date Resolved Date Neck pain 10/03/2021 12/20/2021 Incarcerated incisional hernia 10/12/2014 0 08/11/2015 Strangulated incisional hernia 07/24/2014 0 08/11/2015 Diabetes mellitus with renal manifestation 03/1908/11/2015 Albuminuria 03/19/2014 08/11/2015 Postoperative seroma 10/28/2013 08/11/2015 Parastomal hernia of ileal conduit 05/02/2013 08/11/2015 Vaginal fistula 11/27/2012 08/11/2015 Bowel perforation 11/05/2012 08/11/[address] 11/05/2012 08/11/2015 Injury to rectosigmoid colon 10/17/2012 Pelvic pain 07/10/2012 08/11/2015 Dyspareunia 07/10/2012 08/11/2015 Fibroids 07/10/2012 08/11/2015 Sprain of neck 05/18/2011 06/24/2012 Reaction, situational, acute, to stress 05/18/20 10 08/11/2015 Localized osteoarthrosis not specified whether primary or secondary, lower leg 05/13/2007 08/11/2015 Contusion of foot 02/18/2007 06/24/2012 Corns and callosities 10/14/2006 08/11/2015 Primary Localized Osteoarthrosis, Lower Leg 02/2108/11/2015 Other Specified Disorder of Skin 02/18/2006 06/24/2012 Tobacco use disorder 06/24/2012 Spasm of muscle 08/11/2015 Asthma 08/11/2015 documented as of this encounter (statuses as of 12/21/2021) [facility] illness Narrative* Problem Noted Date Resolved Date Neck pain 10/03/2021 12/20/2021 Incarcerated incisional hernia 10/12/2014 0 08/11/2015 Strangulated incisional hernia 07/24/2014 0 08/11/2015 Diabetes mellitus with renal manifestation 03/1908/11/2015 Albuminuria 03/19/2014 08/11/2015 Postoperative seroma 10/28/2013 08/11/2015 Parastomal hernia of ileal conduit 05/02/2013 08/11/2015 Vaginal fistula 11/27/2012 08/11/2015 Bowel perforation 11/05/2012 08/11/[address] 11/05/2012 08/11/2015 Injury to rectosigmoid colon 10/17/2012 Pelvic pain 07/10/2012 08/11/2015 Dyspareunia 07/10/2012 08/11/2015 Fibroids 07/10/2012 08/11/2015 Sprain of neck 05/18/2011 06/24/2012 Reaction, situational, acute, to stress 05/18/20 10 08/11/2015 Localized osteoarthrosis not specified whether primary or secondary, lower leg 05/13/2007 08/11/2015 Contusion of foot 02/18/2007 06/24/2012 Corns and callosities 10/14/2006 08/11/2015 Primary Localized Osteoarthrosis, Lower Leg 02/2108/11/2015 Other Specified Disorder of Skin 02/18/2006 06/24/2012 Tobacco use disorder 06/24/2012 Spasm of muscle 08/11/2015 Asthma 08/11/2015 documented as of this encounter (statuses as of 12/23/2021) [facility] Narrative* Problem Noted Date Resolved Date Neck pain 10/03/2021 12/20/2021 Incarcerated incisional hernia 10/12/2014 0 08/11/2015 Strangulated incisional hernia 07/24/2014 0 08/11/2015 Diabetes mellitus with renal manifestation 03/1908/11/2015 Albuminuria 03/19/2014 08/11/2015 Postoperative seroma 10/28/2013 08/11/2015 Parastomal hernia of ileal conduit 05/02/2013 08/11/2015 Vaginal fistula 11/27/2012 08/11/2015 Bowel perforation 11/05/2012 08/11/[address] 11/05/2012 08/11/2015 Injury to rectosigmoid colon 10/17/2012 Pelvic pain 07/10/2012 08/11/2015 Dyspareunia 07/10/2012 08/11/2015 Fibroids 07/10/2012 08/11/2015 Sprain of neck 05/18/2011 06/24/2012 Reaction, situational, acute, to stress 05/18/20 10 08/11/2015 Localized osteoarthrosis not specified whether primary or secondary, lower leg 05/13/2007 08/11/2015 Contusion of foot 02/18/2007 06/24/2012 Corns and callosities 10/14/2006 08/11/2015 Primary Localized Osteoarthrosis, Lower Leg 02/2108/11/2015 Other Specified Disorder of Skin 02/18/2006 06/24/2012 Tobacco use disorder 06/24/2012 Spasm of muscle 08/11/2015 Asthma 08/11/2015 documented as of this encounter (statuses as of 12/26/2021) [facility] Narrative* Problem Noted Date Resolved Date Neck pain 10/03/2021 12/20/2021 Incarcerated incisional hernia 10/12/2014 0 08/11/2015 Strangulated incisional hernia 07/24/2014 0 08/11/2015 Diabetes mellitus with renal manifestation 03/1908/11/2015 Albuminuria 03/19/2014 08/11/2015 Postoperative seroma 10/28/2013 08/11/2015 Parastomal hernia of ileal conduit 05/02/2013 08/11/2015 Vaginal fistula 11/27/2012 08/11/2015 Bowel perforation 11/05/2012 08/11/[address] 11/05/2012 08/11/2015 Injury to rectosigmoid colon 10/17/2012 Pelvic pain 07/10/2012 08/11/2015 Dyspareunia 07/10/2012 08/11/2015 Fibroids 07/10/2012 08/11/2015 Sprain of neck 05/18/2011 06/24/2012 Reaction, situational, acute, to stress 05/18/20 10 08/11/2015 Localized osteoarthrosis not specified whether primary or secondary, lower leg 05/13/2007 08/11/2015 Contusion of foot 02/18/2007 06/24/2012 Corns and callosities 10/14/2006 08/11/2015 Primary Localized Osteoarthrosis, Lower Leg 02/2108/11/2015 Other Specified Disorder of Skin 02/18/2006 06/24/2012 Tobacco use disorder 06/24/2012 Spasm of muscle 08/11/2015 Asthma 08/11/2015 documented as of this encounter (statuses as of 12/28/2021) [facility] Narrative* Problem Noted Date Resolved Date Neck pain 10/03/2021 12/20/2021 Incarcerated incisional hernia 10/12/2014 0 08/11/2015 Strangulated incisional hernia 07/24/2014 0 08/11/2015 Diabetes mellitus with renal manifestation 03/1908/11/2015 Albuminuria 03/19/2014 08/11/2015 Postoperative seroma 10/28/2013 08/11/2015 Parastomal hernia of ileal conduit 05/02/2013 08/11/2015 Vaginal fistula 11/27/2012 08/11/2015 Bowel perforation 11/05/2012 08/11/[address] 11/05/2012 08/11/2015 Injury to rectosigmoid colon 10/17/2012 Pelvic pain 07/10/2012 08/11/2015 Dyspareunia 07/10/2012 08/11/2015 Fibroids 07/10/2012 08/11/2015 Sprain of neck 05/18/2011 06/24/2012 Reaction, situational, acute, to stress 05/18/20 10 08/11/2015 Localized osteoarthrosis not specified whether primary or secondary, lower leg 05/13/2007 08/11/2015 Contusion of foot 02/18/2007 06/24/2012 Corns and callosities 10/14/2006 08/11/2015 Primary Localized Osteoarthrosis, Lower Leg 02/2108/11/2015 Other Specified Disorder of Skin 02/18/2006 06/24/2012 Tobacco use disorder 06/24/2012 Spasm of muscle 08/11/2015 Asthma 08/11/2015 documented as of this encounter (statuses as of 12/30/2021) [facility] Narrative* Problem Noted Date Resolved Date Neck pain 10/03/2021 12/20/2021 Incarcerated incisional hernia 10/12/2014 0 08/11/2015 Strangulated incisional hernia 07/24/2014 0 08/11/2015 Diabetes mellitus with renal manifestation 03/1908/11/2015 Albuminuria 03/19/2014 08/11/2015 Postoperative seroma 10/28/2013 08/11/2015 Parastomal hernia of ileal conduit 05/02/2013 08/11/2015 Vaginal fistula 11/27/2012 08/11/2015 Bowel perforation 11/05/2012 08/11/[address] 11/05/2012 08/11/2015 Injury to rectosigmoid colon 10/17/2012 Pelvic pain 07/10/2012 08/11/2015 Dyspareunia 07/10/2012 08/11/2015 Fibroids 07/10/2012 08/11/2015 Sprain of neck 05/18/2011 06/24/2012 Reaction, situational, acute, to stress 05/18/20 10 08/11/2015 Localized osteoarthrosis not specified whether primary or secondary, lower leg 05/13/2007 08/11/2015 Contusion of foot 02/18/2007 06/24/2012 Corns and callosities 10/14/2006 08/11/2015 Primary Localized Osteoarthrosis, Lower Leg 02/2108/11/2015 Other Specified Disorder of Skin 02/18/2006 06/24/2012 Tobacco use disorder 06/24/2012 Spasm of muscle 08/11/2015 Asthma 08/11/2015 documented as of this encounter (statuses as of 01/01/2022) [facility] Narrative* Problem Noted Date Resolved Date Neck pain 10/03/2021 12/20/2021 Incarcerated incisional hernia 10/12/2014 0 08/11/2015 Strangulated incisional hernia 07/24/2014 0 08/11/2015 Diabetes mellitus with renal manifestation 03/1908/11/2015 Albuminuria 03/19/2014 08/11/2015 Postoperative seroma 10/28/2013 08/11/2015 Parastomal hernia of ileal conduit 05/02/2013 08/11/2015 Vaginal fistula 11/27/2012 08/11/2015 Bowel perforation 11/05/2012 08/11/[address] 11/05/2012 08/11/2015 Injury to rectosigmoid colon 10/17/2012 Pelvic pain 07/10/2012 08/11/2015 Dyspareunia 07/10/2012 08/11/2015 Fibroids 07/10/2012 08/11/2015 Sprain of neck 05/18/2011 06/24/2012 Reaction, situational, acute, to stress 05/18/20 10 08/11/2015 Localized osteoarthrosis not specified whether primary or secondary, lower leg 05/13/2007 08/11/2015 Contusion of foot 02/18/2007 06/24/2012 Corns and callosities 10/14/2006 08/11/2015 Primary Localized Osteoarthrosis, Lower Leg 02/2108/11/2015 Other Specified Disorder of Skin 02/18/2006 06/24/2012 Tobacco use disorder 06/24/2012 Spasm of muscle 08/11/2015 Asthma 08/11/2015 documented as of this encounter (statuses as of 01/02/2022) [facility] Narrative* Problem Noted Date Resolved Date Neck pain 10/03/2021 12/20/2021 Incarcerated incisional hernia 10/12/2014 0 08/11/2015 Strangulated incisional hernia 07/24/2014 0 08/11/2015 Diabetes mellitus with renal manifestation 03/1908/11/2015 Albuminuria 03/19/2014 08/11/2015 Postoperative seroma 10/28/2013 08/11/2015 Parastomal hernia of ileal conduit 05/02/2013 08/11/2015 Vaginal fistula 11/27/2012 08/11/2015 Bowel perforation 11/05/2012 08/11/[address] 11/05/2012 08/11/2015 Injury to rectosigmoid colon 10/17/2012 Pelvic pain 07/10/2012 08/11/2015 Dyspareunia 07/10/2012 08/11/2015 Fibroids 07/10/2012 08/11/2015 Sprain of neck 05/18/2011 06/24/2012 Reaction, situational, acute, to stress 05/18/20 10 08/11/2015 Localized osteoarthrosis not specified whether primary or secondary, lower leg 05/13/2007 08/11/2015 Contusion of foot 02/18/2007 06/24/2012 Corns and callosities 10/14/2006 08/11/2015 Primary Localized Osteoarthrosis, Lower Leg 02/2108/11/2015 Other Specified Disorder of Skin 02/18/2006 06/24/2012 Tobacco use disorder 06/24/2012 Spasm of muscle 08/11/2015 Asthma 08/11/2015 documented as of this encounter (statuses as of 01/25/2022) [facility]22 History of Past illness Narrative* Problem Noted Date Resolved Date Neck pain 10/03/2021 12/20/2021 Incarcerated incisional hernia 10/12/2014 0 08/11/2015 Strangulated incisional hernia 07/24/2014 0 08/11/2015 Diabetes mellitus with renal manifestation 03/1908/11/2015 Albuminuria 03/19/2014 08/11/2015 Postoperative seroma 10/28/2013 08/11/2015 Parastomal hernia of ileal conduit 05/02/2013 08/11/2015 Vaginal fistula 11/27/2012 08/11/2015 Bowel perforation 11/05/2012 08/11/[address] 11/05/2012 08/11/2015 Injury to rectosigmoid colon 10/17/2012 Pelvic pain 07/10/2012 08/11/2015 Dyspareunia 07/10/2012 08/11/2015 Fibroids 07/10/2012 08/11/2015 Sprain of neck 05/18/2011 06/24/2012 Reaction, situational, acute, to stress 05/18/20 10 08/11/2015 Localized osteoarthrosis not specified whether primary or secondary, lower leg 05/13/2007 08/11/2015 Contusion of foot 02/18/2007 06/24/2012 Corns and callosities 10/14/2006 08/11/2015 Primary Localized Osteoarthrosis, Lower Leg 02/2108/11/2015 Other Specified Disorder of Skin 02/18/2006 06/24/2012 Tobacco use disorder 06/24/2012 Spasm of muscle 08/11/2015 Asthma 08/11/2015 documented as of this encounter (statuses as of 02/08/2022) [facility] History of Past illness Narrative* Problem Noted Date Resolved Date Neck pain 10/03/2021 12/20/2021 Incarcerated incisional hernia 10/12/2014 0 08/11/2015 Strangulated incisional hernia 07/24/2014 0 08/11/2015 Diabetes mellitus with renal manifestation 03/1908/11/2015 Albuminuria 03/19/2014 08/11/2015 Postoperative seroma 10/28/2013 08/11/2015 Parastomal hernia of ileal conduit 05/02/2013 08/11/2015 Vaginal fistula 11/27/2012 08/11/2015 Bowel perforation 11/05/2012 08/11/[address] 11/05/2012 08/11/2015 Injury to rectosigmoid colon 10/17/2012 Pelvic pain 07/10/2012 08/11/2015 Dyspareunia 07/10/2012 08/11/2015 Fibroids 07/10/2012 08/11/2015 Sprain of neck 05/18/2011 06/24/2012 Reaction, situational, acute, to stress 05/18/20 10 08/11/2015 Localized osteoarthrosis not specified whether primary or secondary, lower leg 05/13/2007 08/11/2015 Contusion of foot 02/18/2007 06/24/2012 Corns and callosities 10/14/2006 08/11/2015 Primary Localized Osteoarthrosis, Lower Leg 02/2108/11/2015 Other Specified Disorder of Skin 02/18/2006 06/24/2012 Tobacco use disorder 06/24/2012 Spasm of muscle 08/11/2015 Asthma 08/11/2015 documented as of this encounter (statuses as of 03/05/2022) [facility] History of Past illness Narrative* Problem Noted Date Resolved Date Neck pain 10/03/2021 12/20/2021 Incarcerated incisional hernia 10/12/2014 0 08/11/2015 Strangulated incisional hernia 07/24/2014 0 08/11/2015 Diabetes mellitus with renal manifestation 03/1908/11/2015 Albuminuria 03/19/2014 08/11/2015 Postoperative seroma 10/28/2013 08/11/2015 Parastomal hernia of ileal conduit 05/02/2013 08/11/2015 Vaginal fistula 11/27/2012 08/11/2015 Bowel perforation 11/05/2012 08/11/[address] 11/05/2012 08/11/2015 Injury to rectosigmoid colon 10/17/2012 Pelvic pain 07/10/2012 08/11/2015 Dyspareunia 07/10/2012 08/11/2015 Fibroids 07/10/2012 08/11/2015 Sprain of neck 05/18/2011 06/24/2012 Reaction, situational, acute, to stress 05/18/20 10 08/11/2015 Localized osteoarthrosis not specified whether primary or secondary, lower leg 05/13/2007 08/11/2015 Contusion of foot 02/18/2007 06/24/2012 Corns and callosities 10/14/2006 08/11/2015 Primary Localized Osteoarthrosis, Lower Leg 02/2108/11/2015 Other Specified Disorder of Skin 02/18/2006 06/24/2012 Tobacco use disorder 06/24/2012 Spasm of muscle 08/11/2015 Asthma 08/11/2015 documented as of this encounter (statuses as of 03/22/2022) [facility] History of Past illness Narrative* Problem Noted Date Resolved Date Neck pain 10/03/2021 12/20/2021 Incarcerated incisional hernia 10/12/2014 0 08/11/2015 Strangulated incisional hernia 07/24/2014 0 08/11/2015 Diabetes mellitus with renal manifestation 03/1908/11/2015 Albuminuria 03/19/2014 08/11/2015 Postoperative seroma 10/28/2013 08/11/2015 Parastomal hernia of ileal conduit 05/02/2013 08/11/2015 Vaginal fistula 11/27/2012 08/11/2015 Bowel perforation 11/05/2012 08/11/[address] 11/05/2012 08/11/2015 Injury to rectosigmoid colon 10/17/2012 Pelvic pain 07/10/2012 08/11/2015 Dyspareunia 07/10/2012 08/11/2015 Fibroids 07/10/2012 08/11/2015 Sprain of neck 05/18/2011 06/24/2012 Reaction, situational, acute, to stress 05/18/20 10 08/11/2015 Localized osteoarthrosis not specified whether primary or secondary, lower leg 05/13/2007 08/11/2015 Contusion of foot 02/18/2007 06/24/2012 Corns and callosities 10/14/2006 08/11/2015 Primary Localized Osteoarthrosis, Lower Leg 02/2108/11/2015 Other Specified Disorder of Skin 02/18/2006 06/24/2012 Tobacco use disorder 06/24/2012 Spasm of muscle 08/11/2015 Asthma 08/11/2015 documented as of this encounter (statuses as of 04/26/2022) [facility] History of Past illness Narrative* Problem Noted Date Resolved Date Neck pain 10/03/2021 12/20/2021 Incarcerated incisional hernia 10/12/2014 0 08/11/2015 Strangulated incisional hernia 07/24/2014 0 08/11/2015 Diabetes mellitus with renal manifestation 03/1908/11/2015 Albuminuria 03/19/2014 08/11/2015 Postoperative seroma 10/28/2013 08/11/2015 Parastomal hernia of ileal conduit 05/02/2013 08/11/2015 Vaginal fistula 11/27/2012 08/11/2015 Bowel perforation 11/05/2012 08/11/[address] 11/05/2012 08/11/2015 Injury to rectosigmoid colon 10/17/2012 Pelvic pain 07/10/2012 08/11/2015 Dyspareunia 07/10/2012 08/11/2015 Fibroids 07/10/2012 08/11/2015 Sprain of neck 05/18/2011 06/24/2012 Reaction, situational, acute, to stress 05/18/20 10 08/11/2015 Localized osteoarthrosis not specified whether primary or secondary, lower leg 05/13/2007 08/11/2015 Contusion of foot 02/18/2007 06/24/2012 Corns and callosities 10/14/2006 08/11/2015 Primary Localized Osteoarthrosis, Lower Leg 02/2108/11/2015 Other Specified Disorder of Skin 02/18/2006 06/24/2012 Tobacco use disorder 06/24/2012 Spasm of muscle 08/11/2015 Asthma 08/11/2015 documented as of this encounter (statuses as of 04/27/2022) [facility] History of Past illness Narrative* Problem Noted Date Resolved Date Neck pain 10/03/2021 12/20/2021 Incarcerated incisional hernia 10/12/2014 0 08/11/2015 Strangulated incisional hernia 07/24/2014 0 08/11/2015 Diabetes mellitus with renal manifestation 03/1908/11/2015 Albuminuria 03/19/2014 08/11/2015 Postoperative seroma 10/28/2013 08/11/2015 Parastomal hernia of ileal conduit 05/02/2013 08/11/2015 Vaginal fistula 11/27/2012 08/11/2015 Bowel perforation 11/05/2012 08/11/[address] 11/05/2012 08/11/2015 Injury to rectosigmoid colon 10/17/2012 Pelvic pain 07/10/2012 08/11/2015 Dyspareunia 07/10/2012 08/11/2015 Fibroids 07/10/2012 08/11/2015 Sprain of neck 05/18/2011 06/24/2012 Reaction, situational, acute, to stress 05/18/20 10 08/11/2015 Localized osteoarthrosis not specified whether primary or secondary, lower leg 05/13/2007 08/11/2015 Contusion of foot 02/18/2007 06/24/2012 Corns and callosities 10/14/2006 08/11/2015 Primary Localized Osteoarthrosis, Lower Leg 02/2108/11/2015 Other Specified Disorder of Skin 02/18/2006 06/24/2012 Tobacco use disorder 06/24/2012 Spasm of muscle 08/11/2015 Asthma 08/11/2015 documented as of this encounter (statuses as of 05/02/2022) [facility] History of Past illness Narrative* Problem Noted Date Resolved Date Neck pain 10/03/2021 12/20/2021 Incarcerated incisional hernia 10/12/2014 0 08/11/2015 Strangulated incisional hernia 07/24/2014 0 08/11/2015 Diabetes mellitus with renal manifestation 03/1908/11/2015 Albuminuria 03/19/2014 08/11/2015 Postoperative seroma 10/28/2013 08/11/2015 Parastomal hernia of ileal conduit 05/02/2013 08/11/2015 Vaginal fistula 11/27/2012 08/11/2015 Bowel perforation 11/05/2012 08/11/[address] 11/05/2012 08/11/2015 Injury to rectosigmoid colon 10/17/2012 Pelvic pain 07/10/2012 08/11/2015 Dyspareunia 07/10/2012 08/11/2015 Fibroids 07/10/2012 08/11/2015 Sprain of neck 05/18/2011 06/24/2012 Reaction, situational, acute, to stress 05/18/20 10 08/11/2015 Localized osteoarthrosis not specified whether primary or secondary, lower leg 05/13/2007 08/11/2015 Contusion of foot 02/18/2007 06/24/2012 Corns and callosities 10/14/2006 08/11/2015 Primary Localized Osteoarthrosis, Lower Leg 02/2108/11/2015 Other Specified Disorder of Skin 02/18/2006 06/24/2012 Tobacco use disorder 06/24/2012 Spasm of muscle 08/11/2015 Asthma 08/11/2015 documented as of this encounter (statuses as of 05/02/2022) [facility] History of Past illness Narrative* Problem Noted Date Resolved Date Neck pain 10/03/2021 12/20/2021 Incarcerated incisional hernia 10/12/2014 0 08/11/2015 Strangulated incisional hernia 07/24/2014 0 08/11/2015 Diabetes mellitus with renal manifestation 03/1908/11/2015 Albuminuria 03/19/2014 08/11/2015 Postoperative seroma 10/28/2013 08/11/2015 Parastomal hernia of ileal conduit 05/02/2013 08/11/2015 Vaginal fistula 11/27/2012 08/11/2015 Bowel perforation 11/05/2012 08/11/[address] 11/05/2012 08/11/2015 Injury to rectosigmoid colon 10/17/2012 Pelvic pain 07/10/2012 08/11/2015 Dyspareunia 07/10/2012 08/11/2015 Fibroids 07/10/2012 08/11/2015 Sprain of neck 05/18/2011 06/24/2012 Reaction, situational, acute, to stress 05/18/20 10 08/11/2015 Localized osteoarthrosis not specified whether primary or secondary, lower leg 05/13/2007 08/11/2015 Contusion of foot 02/18/2007 06/24/2012 Corns and callosities 10/14/2006 08/11/2015 Primary Localized Osteoarthrosis, Lower Leg 02/2108/11/2015 Other Specified Disorder of Skin 02/18/2006 06/24/2012 Tobacco use disorder 06/24/2012 Spasm of muscle 08/11/2015 Asthma 08/11/2015 documented as of this encounter (statuses as of 05/20/2022) [facility] History of Past illness Narrative* Problem Noted Date Resolved Date Neck pain 10/03/2021 12/20/2021 Incarcerated incisional hernia 10/12/2014 0 08/11/2015 Strangulated incisional hernia 07/24/2014 0 08/11/2015 Diabetes mellitus with renal manifestation 03/1908/11/2015 Albuminuria 03/19/2014 08/11/2015 Postoperative seroma 10/28/2013 08/11/2015 Parastomal hernia of ileal conduit 05/02/2013 08/11/2015 Vaginal fistula 11/27/2012 08/11/2015 Bowel perforation 11/05/2012 08/11/[address] 11/05/2012 08/11/2015 Injury to rectosigmoid colon 10/17/2012 Pelvic pain 07/10/2012 08/11/2015 Dyspareunia 07/10/2012 08/11/2015 Fibroids 07/10/2012 08/11/2015 Sprain of neck 05/18/2011 06/24/2012 Reaction, situational, acute, to stress 05/18/20 10 08/11/2015 Localized osteoarthrosis not specified whether primary or secondary, lower leg 05/13/2007 08/11/2015 Contusion of foot 02/18/2007 06/24/2012 Corns and callosities 10/14/2006 08/11/2015 Primary Localized Osteoarthrosis, Lower Leg 02/2108/11/2015 Other Specified Disorder of Skin 02/18/2006 06/24/2012 Tobacco use disorder 06/24/2012 Spasm of muscle 08/11/2015 Asthma 08/11/2015 documented as of this encounter (statuses as of 05/23/2022) [facility] History of Past illness Narrative* Problem Noted Date Resolved Date Neck pain 10/03/2021 12/20/2021 Incarcerated incisional hernia 10/12/2014 0 08/11/2015 Strangulated incisional hernia 07/24/2014 0 08/11/2015 Diabetes mellitus with renal manifestation 03/1908/11/2015 Albuminuria 03/19/2014 08/11/2015 Postoperative seroma 10/28/2013 08/11/2015 Parastomal hernia of ileal conduit 05/02/2013 08/11/2015 Vaginal fistula 11/27/2012 08/11/2015 Bowel perforation 11/05/2012 08/11/[address] 11/05/2012 08/11/2015 Injury to rectosigmoid colon 10/17/2012 Pelvic pain 07/10/2012 08/11/2015 Dyspareunia 07/10/2012 08/11/2015 Fibroids 07/10/2012 08/11/2015 Sprain of neck 05/18/2011 06/24/2012 Reaction, situational, acute, to stress 05/18/20 10 08/11/2015 Localized osteoarthrosis not specified whether primary or secondary, lower leg 05/13/2007 08/11/2015 Contusion of foot 02/18/2007 06/24/2012 Corns and callosities 10/14/2006 08/11/2015 Primary Localized Osteoarthrosis, Lower Leg 02/2108/11/2015 Other Specified Disorder of Skin 02/18/2006 06/24/2012 Tobacco use disorder 06/24/2012 Spasm of muscle 08/11/2015 Asthma 08/11/2015 documented as of this encounter (statuses as of 05/30/2022) [facility] History of Past illness Narrative* Problem Noted Date Resolved Date Neck pain 10/03/2021 12/20/2021 Incarcerated incisional hernia 10/12/2014 0 08/11/2015 Strangulated incisional hernia 07/24/2014 0 08/11/2015 Diabetes mellitus with renal manifestation 03/1908/11/2015 Albuminuria 03/19/2014 08/11/2015 Postoperative seroma 10/28/2013 08/11/2015 Parastomal hernia of ileal conduit 05/02/2013 08/11/2015 Vaginal fistula 11/27/2012 08/11/2015 Bowel perforation 11/05/2012 08/11/[address] 11/05/2012 08/11/2015 Injury to rectosigmoid colon 10/17/2012 Pelvic pain 07/10/2012 08/11/2015 Dyspareunia 07/10/2012 08/11/2015 Fibroids 07/10/2012 08/11/2015 Sprain of neck 05/18/2011 06/24/2012 Reaction, situational, acute, to stress 05/18/20 10 08/11/2015 Localized osteoarthrosis not specified whether primary or secondary, lower leg 05/13/2007 08/11/2015 Contusion of foot 02/18/2007 06/24/2012 Corns and callosities 10/14/2006 08/11/2015 Primary Localized Osteoarthrosis, Lower Leg 02/2108/11/2015 Other Specified Disorder of Skin 02/18/2006 06/24/2012 Tobacco use disorder 06/24/2012 Spasm of muscle 08/11/2015 Asthma 08/11/2015 documented as of this encounter (statuses as of 05/30/2022) [facility] History of Past illness Narrative* Problem Noted Date Resolved Date Neck pain 10/03/2021 12/20/2021 Incarcerated incisional hernia 10/12/2014 0 08/11/2015 Strangulated incisional hernia 07/24/2014 0 08/11/2015 Diabetes mellitus with renal manifestation 03/1908/11/2015 Albuminuria 03/19/2014 08/11/2015 Postoperative seroma 10/28/2013 08/11/2015 Parastomal hernia of ileal conduit 05/02/2013 08/11/2015 Vaginal fistula 11/27/2012 08/11/2015 Bowel perforation 11/05/2012 08/11/[address] 11/05/2012 08/11/2015 Injury to rectosigmoid colon 10/17/2012 Pelvic pain 07/10/2012 08/11/2015 Dyspareunia 07/10/2012 08/11/2015 Fibroids 07/10/2012 08/11/2015 Sprain of neck 05/18/2011 06/24/2012 Reaction, situational, acute, to stress 05/18/20 10 08/11/2015 Localized osteoarthrosis not specified whether primary or secondary, lower leg 05/13/2007 08/11/2015 Contusion of foot 02/18/2007 06/24/2012 Corns and callosities 10/14/2006 08/11/2015 Primary Localized Osteoarthrosis, Lower Leg 02/2108/11/2015 Other Specified Disorder of Skin 02/18/2006 06/24/2012 Tobacco use disorder 06/24/2012 Spasm of muscle 08/11/2015 Asthma 08/11/2015 documented as of this encounter (statuses as of 06/21/2022) [facility] History of Past illness Narrative* Problem Noted Date Resolved Date Neck pain 10/03/2021 12/20/2021 Incarcerated incisional hernia 10/12/2014 0 08/11/2015 Strangulated incisional hernia 07/24/2014 0 08/11/2015 Diabetes mellitus with renal manifestation 03/1908/11/2015 Albuminuria 03/19/2014 08/11/2015 Postoperative seroma 10/28/2013 08/11/2015 Parastomal hernia of ileal conduit 05/02/2013 08/11/2015 Vaginal fistula 11/27/2012 08/11/2015 Bowel perforation 11/05/2012 08/11/[address] 11/05/2012 08/11/2015 Injury to rectosigmoid colon 10/17/2012 Pelvic pain 07/10/2012 08/11/2015 Dyspareunia 07/10/2012 08/11/2015 Fibroids 07/10/2012 08/11/2015 Sprain of neck 05/18/2011 06/24/2012 Reaction, situational, acute, to stress 05/18/20 10 08/11/2015 Localized osteoarthrosis not specified whether primary or secondary, lower leg 05/13/2007 08/11/2015 Contusion of foot 02/18/2007 06/24/2012 Corns and callosities 10/14/2006 08/11/2015 Primary Localized Osteoarthrosis, Lower Leg 02/2108/11/2015 Other Specified Disorder of Skin 02/18/2006 06/24/2012 Tobacco use disorder 06/24/2012 Spasm of muscle 08/11/2015 Asthma 08/11/2015 documented as of this encounter (statuses as of 06/25/2022) [facility] History of Past illness Narrative* Problem Noted Date Resolved Date Neck pain 10/03/2021 12/20/2021 Incarcerated incisional hernia 10/12/2014 0 08/11/2015 Strangulated incisional hernia 07/24/2014 0 08/11/2015 Diabetes mellitus with renal manifestation 03/1908/11/2015 Albuminuria 03/19/2014 08/11/2015 Postoperative seroma 10/28/2013 08/11/2015 Parastomal hernia of ileal conduit 05/02/2013 08/11/2015 Vaginal fistula 11/27/2012 08/11/2015 Bowel perforation 11/05/2012 08/11/[address] 11/05/2012 08/11/2015 Injury to rectosigmoid colon 10/17/2012 Pelvic pain 07/10/2012 08/11/2015 Dyspareunia 07/10/2012 08/11/2015 Fibroids 07/10/2012 08/11/2015 Sprain of neck 05/18/2011 06/24/2012 Reaction, situational, acute, to stress 05/18/20 10 08/11/2015 Localized osteoarthrosis not specified whether primary or secondary, lower leg 05/13/2007 08/11/2015 Contusion of foot 02/18/2007 06/24/2012 Corns and callosities 10/14/2006 08/11/2015 Primary Localized Osteoarthrosis, Lower Leg 02/2108/11/2015 Other Specified Disorder of Skin 02/18/2006 06/24/2012 Tobacco use disorder 06/24/2012 Spasm of muscle 08/11/2015 Asthma 08/11/2015 documented as of this encounter (statuses as of 06/29/2022) [facility] History of Past illness Narrative* Problem Noted Date Resolved Date Neck pain 10/03/2021 12/20/2021 Incarcerated incisional hernia 10/12/2014 0 08/11/2015 Strangulated incisional hernia 07/24/2014 0 08/11/2015 Diabetes mellitus with renal manifestation 03/1908/11/2015 Albuminuria 03/19/2014 08/11/2015 Postoperative seroma 10/28/2013 08/11/2015 Parastomal hernia of ileal conduit 05/02/2013 08/11/2015 Vaginal fistula 11/27/2012 08/11/2015 Bowel perforation 11/05/2012 08/11/[address] 11/05/2012 08/11/2015 Injury to rectosigmoid colon 10/17/2012 Pelvic pain 07/10/2012 08/11/2015 Dyspareunia 07/10/2012 08/11/2015 Fibroids 07/10/2012 08/11/2015 Sprain of neck 05/18/2011 06/24/2012 Reaction, situational, acute, to stress 05/18/20 10 08/11/2015 Localized osteoarthrosis not specified whether primary or secondary, lower leg 05/13/2007 08/11/2015 Contusion of foot 02/18/2007 06/24/2012 Corns and callosities 10/14/2006 08/11/2015 Primary Localized Osteoarthrosis, Lower Leg 02/2108/11/2015 Other Specified Disorder of Skin 02/18/2006 06/24/2012 Tobacco use disorder 06/24/2012 Spasm of muscle 08/11/2015 Asthma 08/11/2015 documented as of this encounter (statuses as of 07/13/2022) [facility] History of Past illness Narrative* Problem Noted Date Resolved Date Neck pain 10/03/2021 12/20/2021 Incarcerated incisional hernia 10/12/2014 0 08/11/2015 Strangulated incisional hernia 07/24/2014 0 08/11/2015 Diabetes mellitus with renal manifestation 03/1908/11/2015 Albuminuria 03/19/2014 08/11/2015 Postoperative seroma 10/28/2013 08/11/2015 Parastomal hernia of ileal conduit 05/02/2013 08/11/2015 Vaginal fistula 11/27/2012 08/11/2015 Bowel perforation 11/05/2012 08/11/[address] 11/05/2012 08/11/2015 Injury to rectosigmoid colon 10/17/2012 Pelvic pain 07/10/2012 08/11/2015 Dyspareunia 07/10/2012 08/11/2015 Fibroids 07/10/2012 08/11/2015 Sprain of neck 05/18/2011 06/24/2012 Reaction, situational, acute, to stress 05/18/20 10 08/11/2015 Localized osteoarthrosis not specified whether primary or secondary, lower leg 05/13/2007 08/11/2015 Contusion of foot 02/18/2007 06/24/2012 Corns and callosities 10/14/2006 08/11/2015 Primary Localized Osteoarthrosis, Lower Leg 02/2108/11/2015 Other Specified Disorder of Skin 02/18/2006 06/24/2012 Tobacco use disorder 06/24/2012 Spasm of muscle 08/11/2015 Asthma 08/11/2015 documented as of this encounter (statuses as of 07/26/2022) [facility] History of Past illness Narrative* Problem Noted Date Resolved Date Neck pain 10/03/2021 12/20/2021 Incarcerated incisional hernia 10/12/2014 0 08/11/2015 Strangulated incisional hernia 07/24/2014 0 08/11/2015 Diabetes mellitus with renal manifestation 03/1908/11/2015 Albuminuria 03/19/2014 08/11/2015 Postoperative seroma 10/28/2013 08/11/2015 Parastomal hernia of ileal conduit 05/02/2013 08/11/2015 Vaginal fistula 11/27/2012 08/11/2015 Bowel perforation 11/05/2012 08/11/[address] 11/05/2012 08/11/2015 Injury to rectosigmoid colon 10/17/2012 Pelvic pain 07/10/2012 08/11/2015 Dyspareunia 07/10/2012 08/11/2015 Fibroids 07/10/2012 08/11/2015 Sprain of neck 05/18/2011 06/24/2012 Reaction, situational, acute, to stress 05/18/20 10 08/11/2015 Localized osteoarthrosis not specified whether primary or secondary, lower leg 05/13/2007 08/11/2015 Contusion of foot 02/18/2007 06/24/2012 Corns and callosities 10/14/2006 08/11/2015 Primary Localized Osteoarthrosis, Lower Leg 02/2108/11/2015 Other Specified Disorder of Skin 02/18/2006 06/24/2012 Tobacco use disorder 06/24/2012 Spasm of muscle 08/11/2015 Asthma 08/11/2015 documented as of this encounter (statuses as of 07/30/2022) [facility] History of Past illness Narrative* Problem Noted Date Resolved Date Neck pain 10/03/2021 12/20/2021 Incarcerated incisional hernia 10/12/2014 0 08/11/2015 Strangulated incisional hernia 07/24/2014 0 08/11/2015 Diabetes mellitus with renal manifestation 03/1908/11/2015 Albuminuria 03/19/2014 08/11/2015 Postoperative seroma 10/28/2013 08/11/2015 Parastomal hernia of ileal conduit 05/02/2013 08/11/2015 Vaginal fistula 11/27/2012 08/11/2015 Bowel perforation 11/05/2012 08/11/[address] 11/05/2012 08/11/2015 Injury to rectosigmoid colon 10/17/2012 Pelvic pain 07/10/2012 08/11/2015 Dyspareunia 07/10/2012 08/11/2015 Fibroids 07/10/2012 08/11/2015 Sprain of neck 05/18/2011 06/24/2012 Reaction, situational, acute, to stress 05/18/20 10 08/11/2015 Localized osteoarthrosis not specified whether primary or secondary, lower leg 05/13/2007 08/11/2015 Contusion of foot 02/18/2007 06/24/2012 Corns and callosities 10/14/2006 08/11/2015 Primary Localized Osteoarthrosis, Lower Leg 02/2108/11/2015 Other Specified Disorder of Skin 02/18/2006 06/24/2012 Tobacco use disorder 06/24/2012 Spasm of muscle 08/11/2015 Asthma 08/11/2015 documented as of this encounter (statuses as of 07/30/2022) [facility] History of Past illness Narrative* Problem Noted Date Resolved Date Neck pain 10/03/2021 12/20/2021 Incarcerated incisional hernia 10/12/2014 0 08/11/2015 Strangulated incisional hernia 07/24/2014 0 08/11/2015 Diabetes mellitus with renal manifestation 03/1908/11/2015 Albuminuria 03/19/2014 08/11/2015 Postoperative seroma 10/28/2013 08/11/2015 Parastomal hernia of ileal conduit 05/02/2013 08/11/2015 Vaginal fistula 11/27/2012 08/11/2015 Bowel perforation 11/05/2012 08/11/[address] 11/05/2012 08/11/2015 Injury to rectosigmoid colon 10/17/2012 Pelvic pain 07/10/2012 08/11/2015 Dyspareunia 07/10/2012 08/11/2015 Fibroids 07/10/2012 08/11/2015 Sprain of neck 05/18/2011 06/24/2012 Reaction, situational, acute, to stress 05/18/20 10 08/11/2015 Localized osteoarthrosis not specified whether primary or secondary, lower leg 05/13/2007 08/11/2015 Contusion of foot 02/18/2007 06/24/2012 Corns and callosities 10/14/2006 08/11/2015 Primary Localized Osteoarthrosis, Lower Leg 02/2108/11/2015 Other Specified Disorder of Skin 02/18/2006 06/24/2012 Tobacco use disorder 06/24/2012 Spasm of muscle 08/11/2015 Asthma 08/11/2015 documented as of this encounter (statuses as of 08/06/2022) [facility]22 History of Past illness Narrative* Problem Noted Date Resolved Date Neck pain 10/03/2021 12/20/2021 Incarcerated incisional hernia 10/12/2014 0 08/11/2015 Strangulated incisional hernia 07/24/2014 0 08/11/2015 Diabetes mellitus with renal manifestation 03/1908/11/2015 Albuminuria 03/19/2014 08/11/2015 Postoperative seroma 10/28/2013 08/11/2015 Parastomal hernia of ileal conduit 05/02/2013 08/11/2015 Vaginal fistula 11/27/2012 08/11/2015 Bowel perforation 11/05/2012 08/11/[address] 11/05/2012 08/11/2015 Injury to rectosigmoid colon 10/17/2012 Pelvic pain 07/10/2012 08/11/2015 Dyspareunia 07/10/2012 08/11/2015 Fibroids 07/10/2012 08/11/2015 Sprain of neck 05/18/2011 06/24/2012 Reaction, situational, acute, to stress 05/18/20 10 08/11/2015 Localized osteoarthrosis not specified whether primary or secondary, lower leg 05/13/2007 08/11/2015 Contusion of foot 02/18/2007 06/24/2012 Corns and callosities 10/14/2006 08/11/2015 Primary Localized Osteoarthrosis, Lower Leg 02/2108/11/2015 Other Specified Disorder of Skin 02/18/2006 06/24/2012 Tobacco use disorder 06/24/2012 Spasm of muscle 08/11/2015 Asthma 08/11/2015 documented as of this encounter (statuses as of 08/06/2022) [facility] History of Past illness Narrative* Problem Noted Date Resolved Date Neck pain 10/03/2021 12/20/2021 Incarcerated incisional hernia 10/12/2014 0 08/11/2015 Strangulated incisional hernia 07/24/2014 0 08/11/2015 Diabetes mellitus with renal manifestation 03/1908/11/2015 Albuminuria 03/19/2014 08/11/2015 Postoperative seroma 10/28/2013 08/11/2015 Parastomal hernia of ileal conduit 05/02/2013 08/11/2015 Vaginal fistula 11/27/2012 08/11/2015 Bowel perforation 11/05/2012 08/11/[address] 11/05/2012 08/11/2015 Injury to rectosigmoid colon 10/17/2012 Pelvic pain 07/10/2012 08/11/2015 Dyspareunia 07/10/2012 08/11/2015 Fibroids 07/10/2012 08/11/2015 Sprain of neck 05/18/2011 06/24/2012 Reaction, situational, acute, to stress 05/18/20 10 08/11/2015 Localized osteoarthrosis not specified whether primary or secondary, lower leg 05/13/2007 08/11/2015 Contusion of foot 02/18/2007 06/24/2012 Corns and callosities 10/14/2006 08/11/2015 Primary Localized Osteoarthrosis, Lower Leg 02/2108/11/2015 Other Specified Disorder of Skin 02/18/2006 06/24/2012 Tobacco use disorder 06/24/2012 Spasm of muscle 08/11/2015 Asthma 08/11/2015 documented as of this encounter (statuses as of 08/29/2022) [facility] History of Past illness Narrative* Problem Noted Date Resolved Date Neck pain 10/03/2021 12/20/2021 Incarcerated incisional hernia 10/12/2014 0 08/11/2015 Strangulated incisional hernia 07/24/2014 0 08/11/2015 Diabetes mellitus with renal manifestation 03/1908/11/2015 Albuminuria 03/19/2014 08/11/2015 Postoperative seroma 10/28/2013 08/11/2015 Parastomal hernia of ileal conduit 05/02/2013 08/11/2015 Vaginal fistula 11/27/2012 08/11/2015 Bowel perforation 11/05/2012 08/11/[address] 11/05/2012 08/11/2015 Injury to rectosigmoid colon 10/17/2012 Pelvic pain 07/10/2012 08/11/2015 Dyspareunia 07/10/2012 08/11/2015 Fibroids 07/10/2012 08/11/2015 Sprain of neck 05/18/2011 06/24/2012 Reaction, situational, acute, to stress 05/18/20 10 08/11/2015 Localized osteoarthrosis not specified whether primary or secondary, lower leg 05/13/2007 08/11/2015 Contusion of foot 02/18/2007 06/24/2012 Corns and callosities 10/14/2006 08/11/2015 Primary Localized Osteoarthrosis, Lower Leg 02/2108/11/2015 Other Specified Disorder of Skin 02/18/2006 06/24/2012 Tobacco use disorder 06/24/2012 Spasm of muscle 08/11/2015 Asthma 08/11/2015 documented as of this encounter (statuses as of 08/30/2022) [facility] History of Past illness Narrative* Problem Noted Date Resolved Date Neck pain 10/03/2021 12/20/2021 Incarcerated incisional hernia 10/12/2014 0 08/11/2015 Strangulated incisional hernia 07/24/2014 0 08/11/2015 Diabetes mellitus with renal manifestation 03/1908/11/2015 Albuminuria 03/19/2014 08/11/2015 Postoperative seroma 10/28/2013 08/11/2015 Parastomal hernia of ileal conduit 05/02/2013 08/11/2015 Vaginal fistula 11/27/2012 08/11/2015 Bowel perforation 11/05/2012 08/11/[address] 11/05/2012 08/11/2015 Injury to rectosigmoid colon 10/17/2012 Pelvic pain 07/10/2012 08/11/2015 Dyspareunia 07/10/2012 08/11/2015 Fibroids 07/10/2012 08/11/2015 Sprain of neck 05/18/2011 06/24/2012 Reaction, situational, acute, to stress 05/18/20 10 08/11/2015 Localized osteoarthrosis not specified whether primary or secondary, lower leg 05/13/2007 08/11/2015 Contusion of foot 02/18/2007 06/24/2012 Corns and callosities 10/14/2006 08/11/2015 Primary Localized Osteoarthrosis, Lower Leg 02/2108/11/2015 Other Specified Disorder of Skin 02/18/2006 06/24/2012 Tobacco use disorder 06/24/2012 Spasm of muscle 08/11/2015 Asthma 08/11/2015 documented as of this encounter (statuses as of 09/11/2022) [facility] History of Past illness Narrative* Problem Noted Date Resolved Date Neck pain 10/03/2021 12/20/2021 Incarcerated incisional hernia 10/12/2014 0 08/11/2015 Strangulated incisional hernia 07/24/2014 0 08/11/2015 Diabetes mellitus with renal manifestation 03/1908/11/2015 Albuminuria 03/19/2014 08/11/2015 Postoperative seroma 10/28/2013 08/11/2015 Parastomal hernia of ileal conduit 05/02/2013 08/11/2015 Vaginal fistula 11/27/2012 08/11/2015 Bowel perforation 11/05/2012 08/11/[address] 11/05/2012 08/11/2015 Injury to rectosigmoid colon 10/17/2012 Pelvic pain 07/10/2012 08/11/2015 Dyspareunia 07/10/2012 08/11/2015 Fibroids 07/10/2012 08/11/2015 Sprain of neck 05/18/2011 06/24/2012 Reaction, situational, acute, to stress 05/18/20 10 08/11/2015 Localized osteoarthrosis not specified whether primary or secondary, lower leg 05/13/2007 08/11/2015 Contusion of foot 02/18/2007 06/24/2012 Corns and callosities 10/14/2006 08/11/2015 Primary Localized Osteoarthrosis, Lower Leg 02/2108/11/2015 Other Specified Disorder of Skin 02/18/2006 06/24/2012 Tobacco use disorder 06/24/2012 Spasm of muscle 08/11/2015 Asthma 08/11/2015 documented as of this encounter (statuses as of 09/13/2022) [facility] History of Past illness Narrative* Problem Noted Date Resolved Date Neck pain 10/03/2021 12/20/2021 Incarcerated incisional hernia 10/12/2014 0 08/11/2015 Strangulated incisional hernia 07/24/2014 0 08/11/2015 Diabetes mellitus with renal manifestation 03/1908/11/2015 Albuminuria 03/19/2014 08/11/2015 Postoperative seroma 10/28/2013 08/11/2015 Parastomal hernia of ileal conduit 05/02/2013 08/11/2015 Vaginal fistula 11/27/2012 08/11/2015 Bowel perforation 11/05/2012 08/11/[address] 11/05/2012 08/11/2015 Injury to rectosigmoid colon 10/17/2012 Pelvic pain 07/10/2012 08/11/2015 Dyspareunia 07/10/2012 08/11/2015 Fibroids 07/10/2012 08/11/2015 Sprain of neck 05/18/2011 06/24/2012 Reaction, situational, acute, to stress 05/18/20 10 08/11/2015 Localized osteoarthrosis not specified whether primary or secondary, lower leg 05/13/2007 08/11/2015 Contusion of foot 02/18/2007 06/24/2012 Corns and callosities 10/14/2006 08/11/2015 Primary Localized Osteoarthrosis, Lower Leg 02/2108/11/2015 Other Specified Disorder of Skin 02/18/2006 06/24/2012 Tobacco use disorder 06/24/2012 Spasm of muscle 08/11/2015 Asthma 08/11/2015 documented as of this encounter (statuses as of 09/13/2022) [facility] History of Past illness Narrative* Problem Noted Date Resolved Date Neck pain 10/03/2021 12/20/2021 Incarcerated incisional hernia 10/12/2014 0 08/11/2015 Strangulated incisional hernia 07/24/2014 0 08/11/2015 Diabetes mellitus with renal manifestation 03/1908/11/2015 Albuminuria 03/19/2014 08/11/2015 Postoperative seroma 10/28/2013 08/11/2015 Parastomal hernia of ileal conduit 05/02/2013 08/11/2015 Vaginal fistula 11/27/2012 08/11/2015 Bowel perforation 11/05/2012 08/11/[address] 11/05/2012 08/11/2015 Injury to rectosigmoid colon 10/17/2012 Pelvic pain 07/10/2012 08/11/2015 Dyspareunia 07/10/2012 08/11/2015 Fibroids 07/10/2012 08/11/2015 Sprain of neck 05/18/2011 06/24/2012 Reaction, situational, acute, to stress 05/18/20 10 08/11/2015 Localized osteoarthrosis not specified whether primary or secondary, lower leg 05/13/2007 08/11/2015 Contusion of foot 02/18/2007 06/24/2012 Corns and callosities 10/14/2006 08/11/2015 Primary Localized Osteoarthrosis, Lower Leg 02/2108/11/2015 Other Specified Disorder of Skin 02/18/2006 06/24/2012 Tobacco use disorder 06/24/2012 Spasm of muscle 08/11/2015 Asthma 08/11/2015 documented as of this encounter (statuses as of 09/27/2022) [facility] History of Past illness Narrative* Problem Noted Date Resolved Date Neck pain 10/03/2021 12/20/2021 Incarcerated incisional hernia 10/12/2014 0 08/11/2015 Strangulated incisional hernia 07/24/2014 0 08/11/2015 Diabetes mellitus with renal manifestation 03/1908/11/2015 Albuminuria 03/19/2014 08/11/2015 Postoperative seroma 10/28/2013 08/11/2015 Parastomal hernia of ileal conduit 05/02/2013 08/11/2015 Vaginal fistula 11/27/2012 08/11/2015 Bowel perforation 11/05/2012 08/11/[address] 11/05/2012 08/11/2015 Injury to rectosigmoid colon 10/17/2012 Pelvic pain 07/10/2012 08/11/2015 Dyspareunia 07/10/2012 08/11/2015 Fibroids 07/10/2012 08/11/2015 Sprain of neck 05/18/2011 06/24/2012 Reaction, situational, acute, to stress 05/18/20 10 08/11/2015 Localized osteoarthrosis not specified whether primary or secondary, lower leg 05/13/2007 08/11/2015 Contusion of foot 02/18/2007 06/24/2012 Corns and callosities 10/14/2006 08/11/2015 Primary Localized Osteoarthrosis, Lower Leg 02/2108/11/2015 Other Specified Disorder of Skin 02/18/2006 06/24/2012 Tobacco use disorder 06/24/2012 Spasm of muscle 08/11/2015 Asthma 08/11/2015 documented as of this encounter (statuses as of 10/01/2022) [facility] History of Past illness Narrative* Problem Noted Date Resolved Date Neck pain 10/03/2021 12/20/2021 Incarcerated incisional hernia 10/12/2014 0 08/11/2015 Strangulated incisional hernia 07/24/2014 0 08/11/2015 Diabetes mellitus with renal manifestation 03/1908/11/2015 Albuminuria 03/19/2014 08/11/2015 Postoperative seroma 10/28/2013 08/11/2015 Parastomal hernia of ileal conduit 05/02/2013 08/11/2015 Vaginal fistula 11/27/2012 08/11/2015 Bowel perforation 11/05/2012 08/11/[address] 11/05/2012 08/11/2015 Injury to rectosigmoid colon 10/17/2012 Pelvic pain 07/10/2012 08/11/2015 Dyspareunia 07/10/2012 08/11/2015 Fibroids 07/10/2012 08/11/2015 Sprain of neck 05/18/2011 06/24/2012 Reaction, situational, acute, to stress 05/18/20 10 08/11/2015 Localized osteoarthrosis not specified whether primary or secondary, lower leg 05/13/2007 08/11/2015 Contusion of foot 02/18/2007 06/24/2012 Corns and callosities 10/14/2006 08/11/2015 Primary Localized Osteoarthrosis, Lower Leg 02/2108/11/2015 Other Specified Disorder of Skin 02/18/2006 06/24/2012 Tobacco use disorder 06/24/2012 Spasm of muscle 08/11/2015 Asthma 08/11/2015 documented as of this encounter (statuses as of 10/18/2022) [facility] History of Past illness Narrative* Problem Noted Date Resolved Date Neck pain 10/03/2021 12/20/2021 Incarcerated incisional hernia 10/12/2014 0 08/11/2015 Strangulated incisional hernia 07/24/2014 0 08/11/2015 Diabetes mellitus with renal manifestation 03/1908/11/2015 Albuminuria 03/19/2014 08/11/2015 Postoperative seroma 10/28/2013 08/11/2015 Parastomal hernia of ileal conduit 05/02/2013 08/11/2015 Vaginal fistula 11/27/2012 08/11/2015 Bowel perforation 11/05/2012 08/11/[address] 11/05/2012 08/11/2015 Injury to rectosigmoid colon 10/17/2012 Pelvic pain 07/10/2012 08/11/2015 Dyspareunia 07/10/2012 08/11/2015 Fibroids 07/10/2012 08/11/2015 Sprain of neck 05/18/2011 06/24/2012 Reaction, situational, acute, to stress 05/18/20 10 08/11/2015 Localized osteoarthrosis not specified whether primary or secondary, lower leg 05/13/2007 08/11/2015 Contusion of foot 02/18/2007 06/24/2012 Corns and callosities 10/14/2006 08/11/2015 Primary Localized Osteoarthrosis, Lower Leg 02/2108/11/2015 Other Specified Disorder of Skin 02/18/2006 06/24/2012 Tobacco use disorder 06/24/2012 Spasm of muscle 08/11/2015 Asthma 08/11/2015 documented as of this encounter (statuses as of 10/18/2022) [facility] History of Past illness Narrative* Problem Noted Date Resolved Date Neck pain 10/03/2021 12/20/2021 Incarcerated incisional hernia 10/12/2014 0 08/11/2015 Strangulated incisional hernia 07/24/2014 0 08/11/2015 Diabetes mellitus with renal manifestation 03/1908/11/2015 Albuminuria 03/19/2014 08/11/2015 Postoperative seroma 10/28/2013 08/11/2015 Parastomal hernia of ileal conduit 05/02/2013 08/11/2015 Vaginal fistula 11/27/2012 08/11/2015 Bowel perforation 11/05/2012 08/11/[address] 11/05/2012 08/11/2015 Injury to rectosigmoid colon 10/17/2012 Pelvic pain 07/10/2012 08/11/2015 Dyspareunia 07/10/2012 08/11/2015 Fibroids 07/10/2012 08/11/2015 Sprain of neck 05/18/2011 06/24/2012 Reaction, situational, acute, to stress 05/18/20 10 08/11/2015 Localized osteoarthrosis not specified whether primary or secondary, lower leg 05/13/2007 08/11/2015 Contusion of foot 02/18/2007 06/24/2012 Corns and callosities 10/14/2006 08/11/2015 Primary Localized Osteoarthrosis, Lower Leg 02/2108/11/2015 Other Specified Disorder of Skin 02/18/2006 06/24/2012 Tobacco use disorder 06/24/2012 Spasm of muscle 08/11/2015 Asthma 08/11/2015 documented as of this encounter (statuses as of 10/30/2022) [facility] History of Past illness Narrative* Problem Noted Date Resolved Date Neck pain 10/03/2021 12/20/2021 Incarcerated incisional hernia 10/12/2014 0 08/11/2015 Strangulated incisional hernia 07/24/2014 0 08/11/2015 Diabetes mellitus with renal manifestation 03/1908/11/2015 Albuminuria 03/19/2014 08/11/2015 Postoperative seroma 10/28/2013 08/11/2015 Parastomal hernia of ileal conduit 05/02/2013 08/11/2015 Vaginal fistula 11/27/2012 08/11/2015 Bowel perforation 11/05/2012 08/11/[address] 11/05/2012 08/11/2015 Injury to rectosigmoid colon 10/17/2012 Pelvic pain 07/10/2012 08/11/2015 Dyspareunia 07/10/2012 08/11/2015 Fibroids 07/10/2012 08/11/2015 Sprain of neck 05/18/2011 06/24/2012 Reaction, situational, acute, to stress 05/18/20 10 08/11/2015 Localized osteoarthrosis not specified whether primary or secondary, lower leg 05/13/2007 08/11/2015 Contusion of foot 02/18/2007 06/24/2012 Corns and callosities 10/14/2006 08/11/2015 Primary Localized Osteoarthrosis, Lower Leg 02/2108/11/2015 Other Specified Disorder of Skin 02/18/2006 06/24/2012 Tobacco use disorder 06/24/2012 Spasm of muscle 08/11/2015 Asthma 08/11/2015 documented as of this encounter (statuses as of 11/15/2022) [facility] History of Past illness Narrative* Problem Noted Date Resolved Date Neck pain 10/03/2021 12/20/2021 Incarcerated incisional hernia 10/12/2014 0 08/11/2015 Strangulated incisional hernia 07/24/2014 0 08/11/2015 Diabetes mellitus with renal manifestation 03/1908/11/2015 Albuminuria 03/19/2014 08/11/2015 Postoperative seroma 10/28/2013 08/11/2015 Parastomal hernia of ileal conduit 05/02/2013 08/11/2015 Vaginal fistula 11/27/2012 08/11/2015 Bowel perforation 11/05/2012 08/11/[address] 11/05/2012 08/11/2015 Injury to rectosigmoid colon 10/17/2012 Pelvic pain 07/10/2012 08/11/2015 Dyspareunia 07/10/2012 08/11/2015 Fibroids 07/10/2012 08/11/2015 Sprain of neck 05/18/2011 06/24/2012 Reaction, situational, acute, to stress 05/18/20 10 08/11/2015 Localized osteoarthrosis not specified whether primary or secondary, lower leg 05/13/2007 08/11/2015 Contusion of foot 02/18/2007 06/24/2012 Corns and callosities 10/14/2006 08/11/2015 Primary Localized Osteoarthrosis, Lower Leg 02/2108/11/2015 Other Specified Disorder of Skin 02/18/2006 06/24/2012 Tobacco use disorder 06/24/2012 Spasm of muscle 08/11/2015 Asthma 08/11/2015 documented as of this encounter (statuses as of 11/16/2022) [facility] History of Past illness Narrative* Problem Noted Date Resolved Date Neck pain 10/03/2021 12/20/2021 Incarcerated incisional hernia 10/12/2014 0 08/11/2015 Strangulated incisional hernia 07/24/2014 0 08/11/2015 Diabetes mellitus with renal manifestation 03/1908/11/2015 Albuminuria 03/19/2014 08/11/2015 Postoperative seroma 10/28/2013 08/11/2015 Parastomal hernia of ileal conduit 05/02/2013 08/11/2015 Vaginal fistula 11/27/2012 08/11/2015 Bowel perforation 11/05/2012 08/11/[address] 11/05/2012 08/11/2015 Injury to rectosigmoid colon 10/17/2012 Pelvic pain 07/10/2012 08/11/2015 Dyspareunia 07/10/2012 08/11/2015 Fibroids 07/10/2012 08/11/2015 Sprain of neck 05/18/2011 06/24/2012 Reaction, situational, acute, to stress 05/18/20 10 08/11/2015 Localized osteoarthrosis not specified whether primary or secondary, lower leg 05/13/2007 08/11/2015 Contusion of foot 02/18/2007 06/24/2012 Corns and callosities 10/14/2006 08/11/2015 Primary Localized Osteoarthrosis, Lower Leg 02/2108/11/2015 Other Specified Disorder of Skin 02/18/2006 06/24/2012 Tobacco use disorder 06/24/2012 Spasm of muscle 08/11/2015 Asthma 08/11/2015 documented as of this encounter (statuses as of 12/01/2022) [facility] History of Past illness Narrative* Problem Noted Date Resolved Date Neck pain 10/03/2021 12/20/2021 Incarcerated incisional hernia 10/12/2014 0 08/11/2015 Strangulated incisional hernia 07/24/2014 0 08/11/2015 Diabetes mellitus with renal manifestation 03/1908/11/2015 Albuminuria 03/19/2014 08/11/2015 Postoperative seroma 10/28/2013 08/11/2015 Parastomal hernia of ileal conduit 05/02/2013 08/11/2015 Vaginal fistula 11/27/2012 08/11/2015 Bowel perforation 11/05/2012 08/11/[address] 11/05/2012 08/11/2015 Injury to rectosigmoid colon 10/17/2012 Pelvic pain 07/10/2012 08/11/2015 Dyspareunia 07/10/2012 08/11/2015 Fibroids 07/10/2012 08/11/2015 Sprain of neck 05/18/2011 06/24/2012 Reaction, situational, acute, to stress 05/18/20 10 08/11/2015 Localized osteoarthrosis not specified whether primary or secondary, lower leg 05/13/2007 08/11/2015 Contusion of foot 02/18/2007 06/24/2012 Corns and callosities 10/14/2006 08/11/2015 Primary Localized Osteoarthrosis, Lower Leg 02/2108/11/2015 Other Specified Disorder of Skin 02/18/2006 06/24/2012 Tobacco use disorder 06/24/2012 Spasm of muscle 08/11/2015 Asthma 08/11/2015 documented as of this encounter (statuses as of 12/27/2022) [facility] History of Past illness Narrative* Problem Noted Date Resolved Date Neck pain 10/03/2021 12/20/2021 Incarcerated incisional hernia 10/12/2014 0 08/11/2015 Strangulated incisional hernia 07/24/2014 0 08/11/2015 Diabetes mellitus with renal manifestation 03/1908/11/2015 Albuminuria 03/19/2014 08/11/2015 Postoperative seroma 10/28/2013 08/11/2015 Parastomal hernia of ileal conduit 05/02/2013 08/11/2015 Vaginal fistula 11/27/2012 08/11/2015 Bowel perforation 11/05/2012 08/11/[address] 11/05/2012 08/11/2015 Injury to rectosigmoid colon 10/17/2012 Pelvic pain 07/10/2012 08/11/2015 Dyspareunia 07/10/2012 08/11/2015 Fibroids 07/10/2012 08/11/2015 Sprain of neck 05/18/2011 06/24/2012 Reaction, situational, acute, to stress 05/18/20 10 08/11/2015 Localized osteoarthrosis not specified whether primary or secondary, lower leg 05/13/2007 08/11/2015 Contusion of foot 02/18/2007 06/24/2012 Corns and callosities 10/14/2006 08/11/2015 Primary Localized Osteoarthrosis, Lower Leg 02/2108/11/2015 Other Specified Disorder of Skin 02/18/2006 06/24/2012 Tobacco use disorder 06/24/2012 Spasm of muscle 08/11/2015 Asthma 08/11/2015 documented as of this encounter (statuses as of 01/03/2023) [facility] History of Past illness Narrative* Problem Noted Date Resolved Date Neck pain 10/03/2021 12/20/2021 Incarcerated incisional hernia 10/12/2014 0 08/11/2015 Strangulated incisional hernia 07/24/2014 0 08/11/2015 Diabetes mellitus with renal manifestation 03/1908/11/2015 Albuminuria 03/19/2014 08/11/2015 Postoperative seroma 10/28/2013 08/11/2015 Parastomal hernia of ileal conduit 05/02/2013 08/11/2015 Vaginal fistula 11/27/2012 08/11/2015 Bowel perforation 11/05/2012 08/11/[address] 11/05/2012 08/11/2015 Injury to rectosigmoid colon 10/17/2012 Pelvic pain 07/10/2012 08/11/2015 Dyspareunia 07/10/2012 08/11/2015 Fibroids 07/10/2012 08/11/2015 Sprain of neck 05/18/2011 06/24/2012 Reaction, situational, acute, to stress 05/18/20 10 08/11/2015 Localized osteoarthrosis not specified whether primary or secondary, lower leg 05/13/2007 08/11/2015 Contusion of foot 02/18/2007 06/24/2012 Corns and callosities 10/14/2006 08/11/2015 Primary Localized Osteoarthrosis, Lower Leg 02/2108/11/2015 Other Specified Disorder of Skin 02/18/2006 06/24/2012 Tobacco use disorder 06/24/2012 Spasm of muscle 08/11/2015 Asthma 08/11/2015 documented as of this encounter (statuses as of 01/04/2023) [facility] History of Past illness Narrative* Problem Noted Date Diagnosed Date Resolved Date Neck pain 10/03/2021 12/20/2021 Incarcerated incisional hernia 10/12/2014 08/11/2015 Strangulated incisional hernia 07/24/2014 08/11/2015 Diabetes mellitus with renal manifestation 03/19/2014 08/11/2015 Albuminuria 03/19/2014 08/11/2015 Postoperative seroma 10/28/2013 016 Parastomal hernia of ileal conduit 05/02/2013 08/11/2015 Vaginal fistula 11/27/2012 08/11/2015 Bowel perforation 11/05/2012 08/11/[address] 11/05/2012 6 Injury to rectosigmoid colon 10/17/2012 08/11/2015 Pelvic pain 07/10/2012 08/11/2015 Dyspareunia 07/10/2012 08/11/2015 Fibroids 07/10/2012 08/11/2015 Sprain of neck 05/18/2011 06/24/2012 Reaction, situational, acute, to stress 05/18/2010 08/11/2015 Localized osteoarthrosis not specified whether primary or secondary, lower leg 05/13/2007 08/11/2015 Contusion of foot 02/18/2007 06/24/2012 Corns and callosities 10/14/20062015 Primary Localized Osteoarthrosis, Lower Leg 03/21/2006 08/11/2015 Other Specified Disorder of Skin 02/18/2006 06/24/2012 Tobacco use disorder 012 Spasm of muscle 08/11/2015 Asthma 08/11/2015 documented as of this encounter (statuses as of 02/01/2023) [facility] History of Past illness Narrative* Problem Noted Date Diagnosed Date Resolved Date Neck pain 10/03/2021 12/20/2021 Incarcerated incisional hernia 10/12/2014 08/11/2015 Strangulated incisional hernia 07/24/2014 08/11/2015 Diabetes mellitus with renal manifestation 03/19/2014 08/11/2015 Albuminuria 03/19/2014 08/11/2015 Postoperative seroma 10/28/2013 016 Parastomal hernia of ileal conduit 05/02/2013 08/11/2015 Vaginal fistula 11/27/2012 08/11/2015 Bowel perforation 11/05/2012 08/11/[address] 11/05/2012 6 Injury to rectosigmoid colon 10/17/2012 08/11/2015 Pelvic pain 07/10/2012 08/11/2015 Dyspareunia 07/10/2012 08/11/2015 Fibroids 07/10/2012 08/11/2015 Sprain of neck 05/18/2011 06/24/2012 Reaction, situational, acute, to stress 05/18/2010 08/11/2015 Localized osteoarthrosis not specified whether primary or secondary, lower leg 05/13/2007 08/11/2015 Contusion of foot 02/18/2007 06/24/2012 Corns and callosities 10/14/20062015 Primary Localized Osteoarthrosis, Lower Leg 03/21/2006 08/11/2015 Other Specified Disorder of Skin 02/18/2006 06/24/2012 Tobacco use disorder 012 Spasm of muscle 08/11/2015 Asthma 08/11/2015 documented as of this encounter (statuses as of 02/01/2023) [facility] History of Past illness Narrative* Problem Noted Date Diagnosed Date Resolved Date Neck pain 10/03/2021 12/20/2021 Incarcerated incisional hernia 10/12/2014 08/11/2015 Strangulated incisional hernia 07/24/2014 08/11/2015 Diabetes mellitus with renal manifestation 03/19/2014 08/11/2015 Albuminuria 03/19/2014 08/11/2015 Postoperative seroma 10/28/2013 016 Parastomal hernia of ileal conduit 05/02/2013 08/11/2015 Vaginal fistula 11/27/2012 08/11/2015 Bowel perforation 11/05/2012 08/11/2015 Ileostomy in [address] 11/05/2012 6 Injury to rectosigmoid colon 10/17/2012 08/11/2015 Pelvic pain 07/10/2012 08/11/2015 Dyspareunia 07/10/2012 08/11/2015 Fibroids 07/10/2012 08/11/2015 Sprain of neck 05/18/2011 06/24/2012 Reaction, situational, acute, to stress 05/18/2010 08/11/2015 Localized osteoarthrosis not specified whether primary or secondary, lower leg 05/13/2007 08/11/2015 Contusion of foot 02/18/2007 06/24/2012 Corns and callosities 10/14/20062015 Primary Localized Osteoarthrosis, Lower Leg 03/21/2006 08/11/2015 Other Specified Disorder of Skin 02/18/2006 06/24/2012 Tobacco use disorder 012 Spasm of muscle 08/11/2015 Asthma 08/11/2015 documented as of this encounter (statuses as of 02/21/2023) [facility] History of Past illness Narrative* Problem Noted Date Diagnosed Date Resolved Date Neck pain 10/03/2021 12/20/2021 Incarcerated incisional hernia 10/12/2014 08/11/2015 Strangulated incisional hernia 07/24/2014 08/11/2015 Diabetes mellitus with renal manifestation 03/19/2014 08/11/2015 Albuminuria 03/19/2014 08/11/2015 Postoperative seroma 10/28/2013 016 Parastomal hernia of ileal conduit 05/02/2013 08/11/2015 Vaginal fistula 11/27/2012 08/11/2015 Bowel perforation 11/05/2012 08/11/[address] 11/05/2012 6 Injury to rectosigmoid colon 10/17/2012 08/11/2015 Pelvic pain 07/10/2012 08/11/2015 Dyspareunia 07/10/2012 08/11/2015 Fibroids 07/10/2012 08/11/2015 Sprain of neck 05/18/2011 06/24/2012 Reaction, situational, acute, to stress 05/18/2010 08/11/2015 Localized osteoarthrosis not specified whether primary or secondary, lower leg 05/13/2007 08/11/2015 Contusion of foot 02/18/2007 06/24/2012 Corns and callosities 10/14/20062015 Primary Localized Osteoarthrosis, Lower Leg 03/21/2006 08/11/2015 Other Specified Disorder of Skin 02/18/2006 06/24/2012 Tobacco use disorder 012 Spasm of muscle 08/11/2015 Asthma 08/11/2015 documented as of this encounter (statuses as of 02/25/2023) [facility] History of Past illness Narrative* Problem Noted Date Diagnosed Date Resolved Date Neck pain 10/03/2021 12/20/2021 Incarcerated incisional hernia 10/12/2014 08/11/2015 Strangulated incisional hernia 07/24/2014 08/11/2015 Diabetes mellitus with renal manifestation 03/19/2014 08/11/2015 Albuminuria 03/19/2014 08/11/2015 Postoperative seroma 10/28/2013 016 Parastomal hernia of ileal conduit 05/02/2013 08/11/2015 Vaginal fistula 11/27/2012 08/11/2015 Bowel perforation 11/05/2012 08/11/[address] 11/05/2012 6 Injury to rectosigmoid colon 10/17/2012 08/11/2015 Pelvic pain 07/10/2012 08/11/2015 Dyspareunia 07/10/2012 08/11/2015 Fibroids 07/10/2012 08/11/2015 Sprain of neck 05/18/2011 06/24/2012 Reaction, situational, acute, to stress 05/18/2010 08/11/2015 Localized osteoarthrosis not specified whether primary or secondary, lower leg 05/13/2007 08/11/2015 Contusion of foot 02/18/2007 06/24/2012 Corns and callosities 10/14/20062015 Primary Localized Osteoarthrosis, Lower Leg 03/21/2006 08/11/2015 Other Specified Disorder of Skin 02/18/2006 06/24/2012 Tobacco use disorder 012 Spasm of muscle 08/11/2015 Asthma 08/11/2015 documented as of this encounter (statuses as of 02/25/2023) [facility] History of Past illness Narrative* Problem Noted Date Diagnosed Date Resolved Date Neck pain 10/03/2021 12/20/2021 Incarcerated incisional hernia 10/12/2014 08/11/2015 Strangulated incisional hernia 07/24/2014 08/11/2015 Diabetes mellitus with renal manifestation 03/19/2014 08/11/2015 Albuminuria 03/19/2014 08/11/2015 Postoperative seroma 10/28/2013 016 Parastomal hernia of ileal conduit 05/02/2013 08/11/2015 Vaginal fistula 11/27/2012 08/11/2015 Bowel perforation 11/05/2012 08/11/[address] 11/05/2012 6 Injury to rectosigmoid colon 10/17/2012 08/11/2015 Pelvic pain 07/10/2012 08/11/2015 Dyspareunia 07/10/2012 08/11/2015 Fibroids 07/10/2012 08/11/2015 Sprain of neck 05/18/2011 06/24/2012 Reaction, situational, acute, to stress 05/18/2010 08/11/2015 Localized osteoarthrosis not specified whether primary or secondary, lower leg 05/13/2007 08/11/2015 Contusion of foot 02/18/2007 06/24/2012 Corns and callosities 10/14/20062015 Primary Localized Osteoarthrosis, Lower Leg 03/21/2006 08/11/2015 Other Specified Disorder of Skin 02/18/2006 06/24/2012 Tobacco use disorder 012 Spasm of muscle 08/11/2015 Asthma 08/11/2015 documented as of this encounter (statuses as of 02/27/2023) [facility] History of Past illness Narrative* Problem Noted Date Diagnosed Date Resolved Date Neck pain 10/03/2021 12/20/2021 Incarcerated incisional hernia 10/12/2014 08/11/2015 Strangulated incisional hernia 07/24/2014 08/11/2015 Diabetes mellitus with renal manifestation 03/19/2014 08/11/2015 Albuminuria 03/19/2014 08/11/2015 Postoperative seroma 10/28/2013 016 Parastomal hernia of ileal conduit 05/02/2013 08/11/2015 Vaginal fistula 11/27/2012 08/11/2015 Bowel perforation 11/05/2012 08/11/[address] 11/05/2012 6 Injury to rectosigmoid colon 10/17/2012 08/11/2015 Pelvic pain 07/10/2012 08/11/2015 Dyspareunia 07/10/2012 08/11/2015 Fibroids 07/10/2012 08/11/2015 Sprain of neck 05/18/2011 06/24/2012 Reaction, situational, acute, to stress 05/18/2010 08/11/2015 Localized osteoarthrosis not specified whether primary or secondary, lower leg 05/13/2007 08/11/2015 Contusion of foot 02/18/2007 06/24/2012 Corns and callosities 10/14/20062015 Primary Localized Osteoarthrosis, Lower Leg 03/21/2006 08/11/2015 Other Specified Disorder of Skin 02/18/2006 06/24/2012 Tobacco use disorder 012 Spasm of muscle 08/11/2015 Asthma 08/11/2015 documented as of this encounter (statuses as of 03/14/2023) [facility] History of Past illness Narrative* Problem Noted Date Diagnosed Date Resolved Date Neck pain 10/03/2021 12/20/2021 Incarcerated incisional hernia 10/12/2014 08/11/2015 Strangulated incisional hernia 07/24/2014 08/11/2015 Diabetes mellitus with renal manifestation 03/19/2014 08/11/2015 Albuminuria 03/19/2014 08/11/2015 Postoperative seroma 10/28/2013 016 Parastomal hernia of ileal conduit 05/02/2013 08/11/2015 Vaginal fistula 11/27/2012 08/11/2015 Bowel perforation 11/05/2012 08/11/[address] 11/05/2012 6 Injury to rectosigmoid colon 10/17/2012 08/11/2015 Pelvic pain 07/10/2012 08/11/2015 Dyspareunia 07/10/2012 08/11/2015 Fibroids 07/10/2012 08/11/2015 Sprain of neck 05/18/2011 06/24/2012 Reaction, situational, acute, to stress 05/18/2010 08/11/2015 Localized osteoarthrosis not specified whether primary or secondary, lower leg 05/13/2007 08/11/2015 Contusion of foot 02/18/2007 06/24/2012 Corns and callosities 10/14/20062015 Primary Localized Osteoarthrosis, Lower Leg 03/21/2006 08/11/2015 Other Specified Disorder of Skin 02/18/2006 06/24/2012 Tobacco use disorder 012 Spasm of muscle 08/11/2015 Asthma 08/11/2015 documented as of this encounter (statuses as of 03/26/2023) [facility] History of Past illness Narrative* Problem Noted Date Diagnosed Date Resolved Date Neck pain 10/03/2021 12/20/2021 Incarcerated incisional hernia 10/12/2014 08/11/2015 Strangulated incisional hernia 07/24/2014 08/11/2015 Diabetes mellitus with renal manifestation 03/19/2014 08/11/2015 Albuminuria 03/19/2014 08/11/2015 Postoperative seroma 10/28/2013 016 Parastomal hernia of ileal conduit 05/02/2013 08/11/2015 Vaginal fistula 11/27/2012 08/11/2015 Bowel perforation 11/05/2012 08/11/[address] 11/05/2012 6 Injury to rectosigmoid colon 10/17/2012 08/11/2015 Pelvic pain 07/10/2012 08/11/2015 Dyspareunia 07/10/2012 08/11/2015 Fibroids 07/10/2012 08/11/2015 Sprain of neck 05/18/2011 06/24/2012 Reaction, situational, acute, to stress 05/18/2010 08/11/2015 Localized osteoarthrosis not specified whether primary or secondary, lower leg 05/13/2007 08/11/2015 Contusion of foot 02/18/2007 06/24/2012 Corns and callosities 10/14/20062015 Primary Localized Osteoarthrosis, Lower Leg 03/21/2006 08/11/2015 Other Specified Disorder of Skin 02/18/2006 06/24/2012 Tobacco use disorder 012 Spasm of muscle 08/11/2015 Asthma 08/11/2015 documented as of this encounter (statuses as of 03/26/2023) [facility] History of Past illness Narrative* Problem Noted Date Diagnosed Date Resolved Date Neck pain 10/03/2021 12/20/2021 Incarcerated incisional hernia 10/12/2014 08/11/2015 Strangulated incisional hernia 07/24/2014 08/11/2015 Diabetes mellitus with renal manifestation 03/19/2014 08/11/2015 Albuminuria 03/19/2014 08/11/2015 Postoperative seroma 10/28/2013 016 Parastomal hernia of ileal conduit 05/02/2013 08/11/2015 Vaginal fistula 11/27/2012 08/11/2015 Bowel perforation 11/05/2012 08/11/[address] 11/05/2012 6 Injury to rectosigmoid colon 10/17/2012 08/11/2015 Pelvic pain 07/10/2012 08/11/2015 Dyspareunia 07/10/2012 08/11/2015 Fibroids 07/10/2012 08/11/2015 Sprain of neck 05/18/2011 06/24/2012 Reaction, situational, acute, to stress 05/18/2010 08/11/2015 Localized osteoarthrosis not specified whether primary or secondary, lower leg 05/13/2007 08/11/2015 Contusion of foot 02/18/2007 06/24/2012 Corns and callosities 10/14/20062015 Primary Localized Osteoarthrosis, Lower Leg 03/21/2006 08/11/2015 Other Specified Disorder of Skin 02/18/2006 06/24/2012 Tobacco use disorder 012 Spasm of muscle 08/11/2015 Asthma 08/11/2015 documented as of this encounter (statuses as of 04/02/2023) [facility] History of Past illness Narrative* Problem Noted Date Diagnosed Date Resolved Date Neck pain 10/03/2021 12/20/2021 Incarcerated incisional hernia 10/12/2014 08/11/2015 Strangulated incisional hernia 07/24/2014 08/11/2015 Diabetes mellitus with renal manifestation 03/19/2014 08/11/2015 Albuminuria 03/19/2014 08/11/2015 Postoperative seroma 10/28/2013 016 Parastomal hernia of ileal conduit 05/02/2013 08/11/2015 Vaginal fistula 11/27/2012 08/11/2015 Bowel perforation 11/05/2012 08/11/[address] 11/05/2012 6 Injury to rectosigmoid colon 10/17/2012 08/11/2015 Pelvic pain 07/10/2012 08/11/2015 Dyspareunia 07/10/2012 08/11/2015 Fibroids 07/10/2012 08/11/2015 Sprain of neck 05/18/2011 06/24/2012 Reaction, situational, acute, to stress 05/18/2010 08/11/2015 Localized osteoarthrosis not specified whether primary or secondary, lower leg 05/13/2007 08/11/2015 Contusion of foot 02/18/2007 06/24/2012 Corns and callosities 10/14/20062015 Primary Localized Osteoarthrosis, Lower Leg 03/21/2006 08/11/2015 Other Specified Disorder of Skin 02/18/2006 06/24/2012 Tobacco use disorder 012 Spasm of muscle 08/11/2015 Asthma 08/11/2015 documented as of this encounter (statuses as of 04/02/2023) [facility] History of Past illness Narrative* Problem Noted Date Diagnosed Date Resolved Date Neck pain 10/03/2021 12/20/2021 Incarcerated incisional hernia 10/12/2014 08/11/2015 Strangulated incisional hernia 07/24/2014 08/11/2015 Diabetes mellitus with renal manifestation 03/19/2014 08/11/2015 Albuminuria 03/19/2014 08/11/2015 Postoperative seroma 10/28/2013 016 Parastomal hernia of ileal conduit 05/02/2013 08/11/2015 Vaginal fistula 11/27/2012 08/11/2015 Bowel perforation 11/05/2012 08/11/[address] 11/05/2012 6 Injury to rectosigmoid colon 10/17/2012 08/11/2015 Pelvic pain 07/10/2012 08/11/2015 Dyspareunia 07/10/2012 08/11/2015 Fibroids 07/10/2012 08/11/2015 Sprain of neck 05/18/2011 06/24/2012 Reaction, situational, acute, to stress 05/18/2010 08/11/2015 Localized osteoarthrosis not specified whether primary or secondary, lower leg 05/13/2007 08/11/2015 Contusion of foot 02/18/2007 06/24/2012 Corns and callosities 10/14/20062015 Primary Localized Osteoarthrosis, Lower Leg 03/21/2006 08/11/2015 Other Specified Disorder of Skin 02/18/2006 06/24/2012 Tobacco use disorder 012 Spasm of muscle 08/11/2015 Asthma 08/11/2015 documented as of this encounter (statuses as of 04/02/2023) [facility] History of Past illness Narrative* Problem Noted Date Diagnosed Date Resolved Date Neck pain 10/03/2021 12/20/2021 Incarcerated incisional hernia 10/12/2014 08/11/2015 Strangulated incisional hernia 07/24/2014 08/11/2015 Diabetes mellitus with renal manifestation 03/19/2014 08/11/2015 Albuminuria 03/19/2014 08/11/2015 Postoperative seroma 10/28/2013 016 Parastomal hernia of ileal conduit 05/02/2013 08/11/2015 Vaginal fistula 11/27/2012 08/11/2015 Bowel perforation 11/05/2012 08/11/[address] 11/05/2012 6 Injury to rectosigmoid colon 10/17/2012 08/11/2015 Pelvic pain 07/10/2012 08/11/2015 Dyspareunia 07/10/2012 08/11/2015 Fibroids 07/10/2012 08/11/2015 Sprain of neck 05/18/2011 06/24/2012 Reaction, situational, acute, to stress 05/18/2010 08/11/2015 Localized osteoarthrosis not specified whether primary or secondary, lower leg 05/13/2007 08/11/2015 Contusion of foot 02/18/2007 06/24/2012 Corns and callosities 10/14/20062015 Primary Localized Osteoarthrosis, Lower Leg 03/21/2006 08/11/2015 Other Specified Disorder of Skin 02/18/2006 06/24/2012 Tobacco use disorder 012 Spasm of muscle 08/11/2015 Asthma 08/11/2015 documented as of this encounter (statuses as of 04/05/2023) [facility] History of Past illness Narrative* Problem Noted Date Diagnosed Date Resolved Date Neck pain 10/03/2021 12/20/2021 Incarcerated incisional hernia 10/12/2014 08/11/2015 Strangulated incisional hernia 07/24/2014 08/11/2015 Diabetes mellitus with renal manifestation 03/19/2014 08/11/2015 Albuminuria 03/19/2014 08/11/2015 Postoperative seroma 10/28/2013 016 Parastomal hernia of ileal conduit 05/02/2013 08/11/2015 Vaginal fistula 11/27/2012 08/11/2015 Bowel perforation 11/05/2012 08/11/[address] 11/05/2012 6 Injury to rectosigmoid colon 10/17/2012 08/11/2015 Pelvic pain 07/10/2012 08/11/2015 Dyspareunia 07/10/2012 08/11/2015 Fibroids 07/10/2012 08/11/2015 Sprain of neck 05/18/2011 06/24/2012 Reaction, situational, acute, to stress 05/18/2010 08/11/2015 Localized osteoarthrosis not specified whether primary or secondary, lower leg 05/13/2007 08/11/2015 Contusion of foot 02/18/2007 06/24/2012 Corns and callosities 10/14/20062015 Primary Localized Osteoarthrosis, Lower Leg 03/21/2006 08/11/2015 Other Specified Disorder of Skin 02/18/2006 06/24/2012 Tobacco use disorder 012 Spasm of muscle 08/11/2015 Asthma 08/11/2015 documented as of this encounter (statuses as of 04/06/2023) [facility] History of Past illness Narrative* Problem Noted Date Diagnosed Date Resolved Date Neck pain 10/03/2021 12/20/2021 Incarcerated incisional hernia 10/12/2014 08/11/2015 Strangulated incisional hernia 07/24/2014 08/11/2015 Diabetes mellitus with renal manifestation 03/19/2014 08/11/2015 Albuminuria 03/19/2014 08/11/2015 Postoperative seroma 10/28/2013 016 Parastomal hernia of ileal conduit 05/02/2013 08/11/2015 Vaginal fistula 11/27/2012 08/11/2015 Bowel perforation 11/05/2012 08/11/[address] 11/05/2012 6 Injury to rectosigmoid colon 10/17/2012 08/11/2015 Pelvic pain 07/10/2012 08/11/2015 Dyspareunia 07/10/2012 08/11/2015 Fibroids 07/10/2012 08/11/2015 Sprain of neck 05/18/2011 06/24/2012 Reaction, situational, acute, to stress 05/18/2010 08/11/2015 Localized osteoarthrosis not specified whether primary or secondary, lower leg 05/13/2007 08/11/2015 Contusion of foot 02/18/2007 06/24/2012 Corns and callosities 10/14/20062015 Primary Localized Osteoarthrosis, Lower Leg 03/21/2006 08/11/2015 Other Specified Disorder of Skin 02/18/2006 06/24/2012 Tobacco use disorder 012 Spasm of muscle 08/11/2015 Asthma 08/11/2015 documented as of this encounter (statuses as of 05/10/2023) [facility] History of Past illness Narrative* Problem Noted Date Diagnosed Date Resolved Date Neck pain 10/03/2021 12/20/2021 Incarcerated incisional hernia 10/12/2014 08/11/2015 Strangulated incisional hernia 07/24/2014 08/11/2015 Diabetes mellitus with renal manifestation 03/19/2014 08/11/2015 Albuminuria 03/19/2014 08/11/2015 Postoperative seroma 10/28/2013 016 Parastomal hernia of ileal conduit 05/02/2013 08/11/2015 Vaginal fistula 11/27/2012 08/11/2015 Bowel perforation 11/05/2012 08/11/[address] 11/05/2012 6 Injury to rectosigmoid colon 10/17/2012 08/11/2015 Pelvic pain 07/10/2012 08/11/2015 Dyspareunia 07/10/2012 08/11/2015 Fibroids 07/10/2012 08/11/2015 Sprain of neck 05/18/2011 06/24/2012 Reaction, situational, acute, to stress 05/18/2010 08/11/2015 Localized osteoarthrosis not specified whether primary or secondary, lower leg 05/13/2007 08/11/2015 Contusion of foot 02/18/2007 06/24/2012 Corns and callosities 10/14/20062015 Primary Localized Osteoarthrosis, Lower Leg 03/21/2006 08/11/2015 Other Specified Disorder of Skin 02/18/2006 06/24/2012 Tobacco use disorder 012 Spasm of muscle 08/11/2015 Asthma 08/11/2015 documented as of this encounter (statuses as of 05/26/2023) [facility] History of Past illness Narrative* Problem Noted Date Diagnosed Date Resolved Date Neck pain 10/03/2021 12/20/2021 Incarcerated incisional hernia 10/12/2014 08/11/2015 Strangulated incisional hernia 07/24/2014 08/11/2015 Diabetes mellitus with renal manifestation 03/19/2014 08/11/2015 Albuminuria 03/19/2014 08/11/2015 Postoperative seroma 10/28/2013 016 Parastomal hernia of ileal conduit 05/02/2013 08/11/2015 Vaginal fistula 11/27/2012 08/11/2015 Bowel perforation 11/05/2012 08/11/[address] 11/05/2012 6 Injury to rectosigmoid colon 10/17/2012 08/11/2015 Pelvic pain 07/10/2012 08/11/2015 Dyspareunia 07/10/2012 08/11/2015 Fibroids 07/10/2012 08/11/2015 Sprain of neck 05/18/2011 06/24/2012 Reaction, situational, acute, to stress 05/18/2010 08/11/2015 Localized osteoarthrosis not specified whether primary or secondary, lower leg 05/13/2007 08/11/2015 Contusion of foot 02/18/2007 06/24/2012 Corns and callosities 10/14/20062015 Primary Localized Osteoarthrosis, Lower Leg 03/21/2006 08/11/2015 Other Specified Disorder of Skin 02/18/2006 06/24/2012 Tobacco use disorder 012 Spasm of muscle 08/11/2015 Asthma 08/11/2015 documented as of this encounter (statuses as of 05/26/2023) [facility] History of Past illness Narrative* Problem Noted Date Diagnosed Date Resolved Date Neck pain 10/03/2021 12/20/2021 Incarcerated incisional hernia 10/12/2014 08/11/2015 Strangulated incisional hernia 07/24/2014 08/11/2015 Diabetes mellitus with renal manifestation 03/19/2014 08/11/2015 Albuminuria 03/19/2014 08/11/2015 Postoperative seroma 10/28/2013 016 Parastomal hernia of ileal conduit 05/02/2013 08/11/2015 Vaginal fistula 11/27/2012 08/11/2015 Bowel perforation 11/05/2012 08/11/[address] 11/05/2012 6 Injury to rectosigmoid colon 10/17/2012 08/11/2015 Pelvic pain 07/10/2012 08/11/2015 Dyspareunia 07/10/2012 08/11/2015 Fibroids 07/10/2012 08/11/2015 Sprain of neck 05/18/2011 06/24/2012 Reaction, situational, acute, to stress 05/18/2010 08/11/2015 Localized osteoarthrosis not specified whether primary or secondary, lower leg 05/13/2007 08/11/2015 Contusion of foot 02/18/2007 06/24/2012 Corns and callosities 10/14/20062015 Primary Localized Osteoarthrosis, Lower Leg 03/21/2006 08/11/2015 Other Specified Disorder of Skin 02/18/2006 06/24/2012 Tobacco use disorder 012 Spasm of muscle 08/11/2015 Asthma 08/11/2015 documented as of this encounter (statuses as of 05/26/2023) [facility] History of Past illness Narrative* Problem Noted Date Diagnosed Date Resolved Date Neck pain 10/03/2021 12/20/2021 Incarcerated incisional hernia 10/12/2014 08/11/2015 Strangulated incisional hernia 07/24/2014 08/11/2015 Diabetes mellitus with renal manifestation 03/19/2014 08/11/2015 Albuminuria 03/19/2014 08/11/2015 Postoperative seroma 10/28/2013 016 Parastomal hernia of ileal conduit 05/02/2013 08/11/2015 Vaginal fistula 11/27/2012 08/11/2015 Bowel perforation 11/05/2012 08/11/[address] 11/05/2012 6 Injury to rectosigmoid colon 10/17/2012 08/11/2015 Pelvic pain 07/10/2012 08/11/2015 Dyspareunia 07/10/2012 08/11/2015 Fibroids 07/10/2012 08/11/2015 Sprain of neck 05/18/2011 06/24/2012 Reaction, situational, acute, to stress 05/18/2010 08/11/2015 Localized osteoarthrosis not specified whether primary or secondary, lower leg 05/13/2007 08/11/2015 Contusion of foot 02/18/2007 06/24/2012 Corns and callosities 10/14/20062015 Primary Localized Osteoarthrosis, Lower Leg 03/21/2006 08/11/2015 Other Specified Disorder of Skin 02/18/2006 06/24/2012 Tobacco use disorder 012 Spasm of muscle 08/11/2015 Asthma 08/11/2015 documented as of this encounter (statuses as of 05/26/2023) [facility] History of Past illness Narrative* Problem Noted Date Diagnosed Date Resolved Date Neck pain 10/03/2021 12/20/2021 Incarcerated incisional hernia 10/12/2014 08/11/2015 Strangulated incisional hernia 07/24/2014 08/11/2015 Diabetes mellitus with renal manifestation 03/19/2014 08/11/2015 Albuminuria 03/19/2014 08/11/2015 Postoperative seroma 10/28/2013 016 Parastomal hernia of ileal conduit 05/02/2013 08/11/2015 Vaginal fistula 11/27/2012 08/11/2015 Bowel perforation 11/05/2012 08/11/[address] 11/05/2012 6 Injury to rectosigmoid colon 10/17/2012 08/11/2015 Pelvic pain 07/10/2012 08/11/2015 Dyspareunia 07/10/2012 08/11/2015 Fibroids 07/10/2012 08/11/2015 Sprain of neck 05/18/2011 06/24/2012 Reaction, situational, acute, to stress 05/18/2010 08/11/2015 Localized osteoarthrosis not specified whether primary or secondary, lower leg 05/13/2007 08/11/2015 Contusion of foot 02/18/2007 06/24/2012 Corns and callosities 10/14/20062015 Primary Localized Osteoarthrosis, Lower Leg 03/21/2006 08/11/2015 Other Specified Disorder of Skin 02/18/2006 06/24/2012 Tobacco use disorder 012 Spasm of muscle 08/11/2015 Asthma 08/11/2015 documented as of this encounter (statuses as of 05/26/2023) [facility] History of Past illness Narrative* Problem Noted Date Diagnosed Date Resolved Date Neck pain 10/03/2021 12/20/2021 Incarcerated incisional hernia 10/12/2014 08/11/2015 Strangulated incisional hernia 07/24/2014 08/11/2015 Diabetes mellitus with renal manifestation 03/19/2014 08/11/2015 Albuminuria 03/19/2014 08/11/2015 Postoperative seroma 10/28/2013 016 Parastomal hernia of ileal conduit 05/02/2013 08/11/2015 Vaginal fistula 11/27/2012 08/11/2015 Bowel perforation 11/05/2012 08/11/[address] 11/05/2012 6 Injury to rectosigmoid colon 10/17/2012 08/11/2015 Pelvic pain 07/10/2012 08/11/2015 Dyspareunia 07/10/2012 08/11/2015 Fibroids 07/10/2012 08/11/2015 Sprain of neck 05/18/2011 06/24/2012 Reaction, situational, acute, to stress 05/18/2010 08/11/2015 Localized osteoarthrosis not specified whether primary or secondary, lower leg 05/13/2007 08/11/2015 Contusion of foot 02/18/2007 06/24/2012 Corns and callosities 10/14/20062015 Primary Localized Osteoarthrosis, Lower Leg 03/21/2006 08/11/2015 Other Specified Disorder of Skin 02/18/2006 06/24/2012 Tobacco use disorder 012 Spasm of muscle 08/11/2015 Asthma 08/11/2015 documented as of this encounter (statuses as of 05/26/2023) [facility] History of Past illness Narrative* Problem Noted Date Diagnosed Date Resolved Date Neck pain 10/03/2021 12/20/2021 Incarcerated incisional hernia 10/12/2014 08/11/2015 Strangulated incisional hernia 07/24/2014 08/11/2015 Diabetes mellitus with renal manifestation 03/19/2014 08/11/2015 Albuminuria 03/19/2014 08/11/2015 Postoperative seroma 10/28/2013 016 Parastomal hernia of ileal conduit 05/02/2013 08/11/2015 Vaginal fistula 11/27/2012 08/11/2015 Bowel perforation 11/05/2012 08/11/[address] 11/05/2012 6 Injury to rectosigmoid colon 10/17/2012 08/11/2015 Pelvic pain 07/10/2012 08/11/2015 Dyspareunia 07/10/2012 08/11/2015 Fibroids 07/10/2012 08/11/2015 Sprain of neck 05/18/2011 06/24/2012 Reaction, situational, acute, to stress 05/18/2010 08/11/2015 Localized osteoarthrosis not specified whether primary or secondary, lower leg 05/13/2007 08/11/2015 Contusion of foot 02/18/2007 06/24/2012 Corns and callosities 10/14/20062015 Primary Localized Osteoarthrosis, Lower Leg 03/21/2006 08/11/2015 Other Specified Disorder of Skin 02/18/2006 06/24/2012 Tobacco use disorder 012 Spasm of muscle 08/11/2015 Asthma 08/11/2015 documented as of this encounter (statuses as of 05/26/2023) [facility]22 History of Past illness Narrative* Problem Noted Date Diagnosed Date Resolved Date Neck pain 10/03/2021 12/20/2021 Incarcerated incisional hernia 10/12/2014 08/11/2015 Strangulated incisional hernia 07/24/2014 08/11/2015 Diabetes mellitus with renal manifestation 03/19/2014 08/11/2015 Albuminuria 03/19/2014 08/11/2015 Postoperative seroma 10/28/2013 016 Parastomal hernia of ileal conduit 05/02/2013 08/11/2015 Vaginal fistula 11/27/2012 08/11/2015 Bowel perforation 11/05/2012 08/11/[address] 11/05/2012 6 Injury to rectosigmoid colon 10/17/2012 08/11/2015 Pelvic pain 07/10/2012 08/11/2015 Dyspareunia 07/10/2012 08/11/2015 Fibroids 07/10/2012 08/11/2015 Sprain of neck 05/18/2011 06/24/2012 Reaction, situational, acute, to stress 05/18/2010 08/11/2015 Localized osteoarthrosis not specified whether primary or secondary, lower leg 05/13/2007 08/11/2015 Contusion of foot 02/18/2007 06/24/2012 Corns and callosities 10/14/20062015 Primary Localized Osteoarthrosis, Lower Leg 03/21/2006 08/11/2015 Other Specified Disorder of Skin 02/18/2006 06/24/2012 Tobacco use disorder 012 Spasm of muscle 08/11/2015 Asthma 08/11/2015 documented as of this encounter (statuses as of 05/29/2023) [facility] History of Past illness Narrative* Problem Noted Date Diagnosed Date Resolved Date Neck pain 10/03/2021 12/20/2021 Incarcerated incisional hernia 10/12/2014 08/11/2015 Strangulated incisional hernia 07/24/2014 08/11/2015 Diabetes mellitus with renal manifestation 03/19/2014 08/11/2015 Albuminuria 03/19/2014 08/11/2015 Postoperative seroma 10/28/2013 016 Parastomal hernia of ileal conduit 05/02/2013 08/11/2015 Vaginal fistula 11/27/2012 08/11/2015 Bowel perforation 11/05/2012 08/11/[address] 11/05/2012 6 Injury to rectosigmoid colon 10/17/2012 08/11/2015 Pelvic pain 07/10/2012 08/11/2015 Dyspareunia 07/10/2012 08/11/2015 Fibroids 07/10/2012 08/11/2015 Sprain of neck 05/18/2011 06/24/2012 Reaction, situational, acute, to stress 05/18/2010 08/11/2015 Localized osteoarthrosis not specified whether primary or secondary, lower leg 05/13/2007 08/11/2015 Contusion of foot 02/18/2007 06/24/2012 Corns and callosities 10/14/20062015 Primary Localized Osteoarthrosis, Lower Leg 03/21/2006 08/11/2015 Other Specified Disorder of Skin 02/18/2006 06/24/2012 Tobacco use disorder 012 Spasm of muscle 08/11/2015 Asthma 08/11/2015 documented as of this encounter (statuses as of 05/29/2023) [facility] History of Past illness Narrative* Problem Noted Date Diagnosed Date Resolved Date Neck pain 10/03/2021 12/20/2021 Incarcerated incisional hernia 10/12/2014 08/11/2015 Strangulated incisional hernia 07/24/2014 08/11/2015 Diabetes mellitus with renal manifestation 03/19/2014 08/11/2015 Albuminuria 03/19/2014 08/11/2015 Postoperative seroma 10/28/2013 016 Parastomal hernia of ileal conduit 05/02/2013 08/11/2015 Vaginal fistula 11/27/2012 08/11/2015 Bowel perforation 11/05/2012 08/11/[address] 11/05/2012 6 Injury to rectosigmoid colon 10/17/2012 08/11/2015 Pelvic pain 07/10/2012 08/11/2015 Dyspareunia 07/10/2012 08/11/2015 Fibroids 07/10/2012 08/11/2015 Sprain of neck 05/18/2011 06/24/2012 Reaction, situational, acute, to stress 05/18/2010 08/11/2015 Localized osteoarthrosis not specified whether primary or secondary, lower leg 05/13/2007 08/11/2015 Contusion of foot 02/18/2007 06/24/2012 Corns and callosities 10/14/20062015 Primary Localized Osteoarthrosis, Lower Leg 03/21/2006 08/11/2015 Other Specified Disorder of Skin 02/18/2006 06/24/2012 Tobacco use disorder 012 Spasm of muscle 08/11/2015 Asthma 08/11/2015 documented as of this encounter (statuses as of 05/29/2023) [facility] History of Past illness Narrative* Problem Noted Date Diagnosed Date Resolved Date Neck pain 10/03/2021 12/20/2021 Incarcerated incisional hernia 10/12/2014 08/11/2015 Strangulated incisional hernia 07/24/2014 08/11/2015 Diabetes mellitus with renal manifestation 03/19/2014 08/11/2015 Albuminuria 03/19/2014 08/11/2015 Postoperative seroma 10/28/2013 016 Parastomal hernia of ileal conduit 05/02/2013 08/11/2015 Vaginal fistula 11/27/2012 08/11/2015 Bowel perforation 11/05/2012 08/11/[address] 11/05/2012 6 Injury to rectosigmoid colon 10/17/2012 08/11/2015 Pelvic pain 07/10/2012 08/11/2015 Dyspareunia 07/10/2012 08/11/2015 Fibroids 07/10/2012 08/11/2015 Sprain of neck 05/18/2011 06/24/2012 Reaction, situational, acute, to stress 05/18/2010 08/11/2015 Localized osteoarthrosis not specified whether primary or secondary, lower leg 05/13/2007 08/11/2015 Contusion of foot 02/18/2007 06/24/2012 Corns and callosities 10/14/20062015 Primary Localized Osteoarthrosis, Lower Leg 03/21/2006 08/11/2015 Other Specified Disorder of Skin 02/18/2006 06/24/2012 Tobacco use disorder 012 Spasm of muscle 08/11/2015 Asthma 08/11/2015 documented as of this encounter (statuses as of 05/30/2023) [facility] History of Past illness Narrative* Problem Noted Date Diagnosed Date Resolved Date Neck pain 10/03/2021 12/20/2021 Incarcerated incisional hernia 10/12/2014 08/11/2015 Strangulated incisional hernia 07/24/2014 08/11/2015 Diabetes mellitus with renal manifestation 03/19/2014 08/11/2015 Albuminuria 03/19/2014 08/11/2015 Postoperative seroma 10/28/2013 016 Parastomal hernia of ileal conduit 05/02/2013 08/11/2015 Vaginal fistula 11/27/2012 08/11/2015 Bowel perforation 11/05/2012 08/11/[address] 11/05/2012 6 Injury to rectosigmoid colon 10/17/2012 08/11/2015 Pelvic pain 07/10/2012 08/11/2015 Dyspareunia 07/10/2012 08/11/2015 Fibroids 07/10/2012 08/11/2015 Sprain of neck 05/18/2011 06/24/2012 Reaction, situational, acute, to stress 05/18/2010 08/11/2015 Localized osteoarthrosis not specified whether primary or secondary, lower leg 05/13/2007 08/11/2015 Contusion of foot 02/18/2007 06/24/2012 Corns and callosities 10/14/20062015 Primary Localized Osteoarthrosis, Lower Leg 03/21/2006 08/11/2015 Other Specified Disorder of Skin 02/18/2006 06/24/2012 Tobacco use disorder 012 Spasm of muscle 08/11/2015 Asthma 08/11/2015 documented as of this encounter (statuses as of 06/07/2023) [facility] History of Past illness Narrative* Problem Noted Date Diagnosed Date Resolved Date Neck pain 10/03/2021 12/20/2021 Incarcerated incisional hernia 10/12/2014 08/11/2015 Strangulated incisional hernia 07/24/2014 08/11/2015 Diabetes mellitus with renal manifestation 03/19/2014 08/11/2015 Albuminuria 03/19/2014 08/11/2015 Postoperative seroma 10/28/2013 016 Parastomal hernia of ileal conduit 05/02/2013 08/11/2015 Vaginal fistula 11/27/2012 08/11/2015 Bowel perforation 11/05/2012 08/11/[address] 11/05/2012 6 Injury to rectosigmoid colon 10/17/2012 08/11/2015 Pelvic pain 07/10/2012 08/11/2015 Dyspareunia 07/10/2012 08/11/2015 Fibroids 07/10/2012 08/11/2015 Sprain of neck 05/18/2011 06/24/2012 Reaction, situational, acute, to stress 05/18/2010 08/11/2015 Localized osteoarthrosis not specified whether primary or secondary, lower leg 05/13/2007 08/11/2015 Contusion of foot 02/18/2007 06/24/2012 Corns and callosities 10/14/20062015 Primary Localized Osteoarthrosis, Lower Leg 03/21/2006 08/11/2015 Other Specified Disorder of Skin 02/18/2006 06/24/2012 Tobacco use disorder 012 Spasm of muscle 08/11/2015 Asthma 08/11/2015 documented as of this encounter (statuses as of 06/07/2023) [facility] History of Past illness Narrative* Problem Noted Date Diagnosed Date Resolved Date Neck pain 10/03/2021 12/20/2021 Incarcerated incisional hernia 10/12/2014 08/11/2015 Strangulated incisional hernia 07/24/2014 08/11/2015 Diabetes mellitus with renal manifestation 03/19/2014 08/11/2015 Albuminuria 03/19/2014 08/11/2015 Postoperative seroma 10/28/2013 016 Parastomal hernia of ileal conduit 05/02/2013 08/11/2015 Vaginal fistula 11/27/2012 08/11/2015 Bowel perforation 11/05/2012 08/11/[address] 11/05/2012 6 Injury to rectosigmoid colon 10/17/2012 08/11/2015 Pelvic pain 07/10/2012 08/11/2015 Dyspareunia 07/10/2012 08/11/2015 Fibroids 07/10/2012 08/11/2015 Sprain of neck 05/18/2011 06/24/2012 Reaction, situational, acute, to stress 05/18/2010 08/11/2015 Localized osteoarthrosis not specified whether primary or secondary, lower leg 05/13/2007 08/11/2015 Contusion of foot 02/18/2007 06/24/2012 Corns and callosities 10/14/20062015 Primary Localized Osteoarthrosis, Lower Leg 03/21/2006 08/11/2015 Other Specified Disorder of Skin 02/18/2006 06/24/2012 Tobacco use disorder 012 Spasm of muscle 08/11/2015 Asthma 08/11/2015 documented as of this encounter (statuses as of 06/18/2023) [facility] History of Past illness Narrative* Problem Noted Date Diagnosed Date Resolved Date Neck pain 10/03/2021 12/20/2021 Incarcerated incisional hernia 10/12/2014 08/11/2015 Strangulated incisional hernia 07/24/2014 08/11/2015 Diabetes mellitus with renal manifestation 03/19/2014 08/11/2015 Albuminuria 03/19/2014 08/11/2015 Postoperative seroma 10/28/2013 016 Parastomal hernia of ileal conduit 05/02/2013 08/11/2015 Vaginal fistula 11/27/2012 08/11/2015 Bowel perforation 11/05/2012 08/11/[address] 11/05/2012 6 Injury to rectosigmoid colon 10/17/2012 08/11/2015 Pelvic pain 07/10/2012 08/11/2015 Dyspareunia 07/10/2012 08/11/2015 Fibroids 07/10/2012 08/11/2015 Sprain of neck 05/18/2011 06/24/2012 Reaction, situational, acute, to stress 05/18/2010 08/11/2015 Localized osteoarthrosis not specified whether primary or secondary, lower leg 05/13/2007 08/11/2015 Contusion of foot 02/18/2007 06/24/2012 Corns and callosities 10/14/20062015 Primary Localized Osteoarthrosis, Lower Leg 03/21/2006 08/11/2015 Other Specified Disorder of Skin 02/18/2006 06/24/2012 Tobacco use disorder 012 Spasm of muscle 08/11/2015 Asthma 08/11/2015 documented as of this encounter (statuses as of 06/28/2023) [facility] History of Past illness Narrative* Problem Noted Date Diagnosed Date Resolved Date Neck pain 10/03/2021 12/20/2021 Incarcerated incisional hernia 10/12/2014 08/11/2015 Strangulated incisional hernia 07/24/2014 08/11/2015 Diabetes mellitus with renal manifestation 03/19/2014 08/11/2015 Albuminuria 03/19/2014 08/11/2015 Postoperative seroma 10/28/2013 016 Parastomal hernia of ileal conduit 05/02/2013 08/11/2015 Vaginal fistula 11/27/2012 08/11/2015 Bowel perforation 11/05/2012 08/11/[address] 11/05/2012 6 Injury to rectosigmoid colon 10/17/2012 08/11/2015 Pelvic pain 07/10/2012 08/11/2015 Dyspareunia 07/10/2012 08/11/2015 Fibroids 07/10/2012 08/11/2015 Sprain of neck 05/18/2011 06/24/2012 Reaction, situational, acute, to stress 05/18/2010 08/11/2015 Localized osteoarthrosis not specified whether primary or secondary, lower leg 05/13/2007 08/11/2015 Contusion of foot 02/18/2007 06/24/2012 Corns and callosities 10/14/20062015 Primary Localized Osteoarthrosis, Lower Leg 03/21/2006 08/11/2015 Other Specified Disorder of Skin 02/18/2006 06/24/2012 Tobacco use disorder 012 Spasm of muscle 08/11/2015 Asthma 08/11/2015 documented as of this encounter (statuses as of 08/23/2023) [facility] History of Past illness Narrative* Problem Noted Date Diagnosed Date Resolved Date Neck pain 10/03/2021 12/20/2021 Incarcerated incisional hernia 10/12/2014 08/11/2015 Strangulated incisional hernia 07/24/2014 08/11/2015 Diabetes mellitus with renal manifestation 03/19/2014 08/11/2015 Albuminuria 03/19/2014 08/11/2015 Postoperative seroma 10/28/2013 016 Parastomal hernia of ileal conduit 05/02/2013 08/11/2015 Vaginal fistula 11/27/2012 08/11/2015 Bowel perforation 11/05/2012 08/11/[address] 11/05/2012 6 Injury to rectosigmoid colon 10/17/2012 08/11/2015 Pelvic pain 07/10/2012 08/11/2015 Dyspareunia 07/10/2012 08/11/2015 Fibroids 07/10/2012 08/11/2015 Sprain of neck 05/18/2011 06/24/2012 Reaction, situational, acute, to stress 05/18/2010 08/11/2015 Localized osteoarthrosis not specified whether primary or secondary, lower leg 05/13/2007 08/11/2015 Contusion of foot 02/18/2007 06/24/2012 Corns and callosities 10/14/20062015 Primary Localized Osteoarthrosis, Lower Leg 03/21/2006 08/11/2015 Other Specified Disorder of Skin 02/18/2006 06/24/2012 Tobacco use disorder 012 Spasm of muscle 08/11/2015 Asthma 08/11/2015 documented as of this encounter (statuses as of 08/27/2023) [facility] History of Past illness Narrative* Problem Noted Date Diagnosed Date Resolved Date Neck pain 10/03/2021 12/20/2021 Incarcerated incisional hernia 10/12/2014 08/11/2015 Strangulated incisional hernia 07/24/2014 08/11/2015 Diabetes mellitus with renal manifestation 03/19/2014 08/11/2015 Albuminuria 03/19/2014 08/11/2015 Postoperative seroma 10/28/2013 016 Parastomal hernia of ileal conduit 05/02/2013 08/11/2015 Vaginal fistula 11/27/2012 08/11/2015 Bowel perforation 11/05/2012 08/11/[address] 11/05/2012 6 Injury to rectosigmoid colon 10/17/2012 08/11/2015 Pelvic pain 07/10/2012 08/11/2015 Dyspareunia 07/10/2012 08/11/2015 Fibroids 07/10/2012 08/11/2015 Sprain of neck 05/18/2011 06/24/2012 Reaction, situational, acute, to stress 05/18/2010 08/11/2015 Localized osteoarthrosis not specified whether primary or secondary, lower leg 05/13/2007 08/11/2015 Contusion of foot 02/18/2007 06/24/2012 Corns and callosities 10/14/20062015 Primary Localized Osteoarthrosis, Lower Leg 03/21/2006 08/11/2015 Other Specified Disorder of Skin 02/18/2006 06/24/2012 Tobacco use disorder 012 Spasm of muscle 08/11/2015 Asthma 08/11/2015 documented as of this encounter (statuses as of 08/28/2023) [facility] History of Past illness Narrative* Problem Noted Date Diagnosed Date Resolved Date Neck pain 10/03/2021 12/20/2021 Incarcerated incisional hernia 10/12/2014 08/11/2015 Strangulated incisional hernia 07/24/2014 08/11/2015 Diabetes mellitus with renal manifestation 03/19/2014 08/11/2015 Albuminuria 03/19/2014 08/11/2015 Postoperative seroma 10/28/2013 016 Parastomal hernia of ileal conduit 05/02/2013 08/11/2015 Vaginal fistula 11/27/2012 08/11/2015 Bowel perforation 11/05/2012 08/11/[address] 11/05/2012 6 Injury to rectosigmoid colon 10/17/2012 08/11/2015 Pelvic pain 07/10/2012 08/11/2015 Dyspareunia 07/10/2012 08/11/2015 Fibroids 07/10/2012 08/11/2015 Sprain of neck 05/18/2011 06/24/2012 Reaction, situational, acute, to stress 05/18/2010 08/11/2015 Localized osteoarthrosis not specified whether primary or secondary, lower leg 05/13/2007 08/11/2015 Contusion of foot 02/18/2007 06/24/2012 Corns and callosities 10/14/20062015 Primary Localized Osteoarthrosis, Lower Leg 03/21/2006 08/11/2015 Other Specified Disorder of Skin 02/18/2006 06/24/2012 Tobacco use disorder 012 Spasm of muscle 08/11/2015 Asthma 08/11/2015 documented as of this encounter (statuses as of 09/09/2023) [facility] History of Past illness Narrative* Problem Noted Date Diagnosed Date Resolved Date Neck pain 10/03/2021 12/20/2021 Incarcerated incisional hernia 10/12/2014 08/11/2015 Strangulated incisional hernia 07/24/2014 08/11/2015 Diabetes mellitus with renal manifestation 03/19/2014 08/11/2015 Albuminuria 03/19/2014 08/11/2015 Postoperative seroma 10/28/2013 016 Parastomal hernia of ileal conduit 05/02/2013 08/11/2015 Vaginal fistula 11/27/2012 08/11/2015 Bowel perforation 11/05/2012 08/11/[address] 11/05/2012 6 Injury to rectosigmoid colon 10/17/2012 08/11/2015 Pelvic pain 07/10/2012 08/11/2015 Dyspareunia 07/10/2012 08/11/2015 Fibroids 07/10/2012 08/11/2015 Sprain of neck 05/18/2011 06/24/2012 Reaction, situational, acute, to stress 05/18/2010 08/11/2015 Localized osteoarthrosis not specified whether primary or secondary, lower leg 05/13/2007 08/11/2015 Contusion of foot 02/18/2007 06/24/2012 Corns and callosities 10/14/20062015 Primary Localized Osteoarthrosis, Lower Leg 03/21/2006 08/11/2015 Other Specified Disorder of Skin 02/18/2006 06/24/2012 Tobacco use disorder 012 Spasm of muscle 08/11/2015 Asthma 08/11/2015 documented as of this encounter (statuses as of 09/21/2023) [facility] History of Past illness Narrative* Problem Noted Date Diagnosed Date Resolved Date Neck pain 10/03/2021 12/20/2021 Incarcerated incisional hernia 10/12/2014 08/11/2015 Strangulated incisional hernia 07/24/2014 08/11/2015 Diabetes mellitus with renal manifestation 03/19/2014 08/11/2015 Albuminuria 03/19/2014 08/11/2015 Postoperative seroma 10/28/2013 016 Parastomal hernia of ileal conduit 05/02/2013 08/11/2015 Vaginal fistula 11/27/2012 08/11/2015 Bowel perforation 11/05/2012 08/11/[address] 11/05/2012 6 Injury to rectosigmoid colon 10/17/2012 08/11/2015 Pelvic pain 07/10/2012 08/11/2015 Dyspareunia 07/10/2012 08/11/2015 Fibroids 07/10/2012 08/11/2015 Sprain of neck 05/18/2011 06/24/2012 Reaction, situational, acute, to stress 05/18/2010 08/11/2015 Localized osteoarthrosis not specified whether primary or secondary, lower leg 05/13/2007 08/11/2015 Contusion of foot 02/18/2007 06/24/2012 Corns and callosities 10/14/20062015 Primary Localized Osteoarthrosis, Lower Leg 03/21/2006 08/11/2015 Other Specified Disorder of Skin 02/18/2006 06/24/2012 Tobacco use disorder 012 Spasm of muscle 08/11/2015 Asthma 08/11/2015 documented as of this encounter (statuses as of 09/26/2023) [facility] History of Past illness Narrative* Problem Noted Date Diagnosed Date Resolved Date Neck pain 10/03/2021 12/20/2021 Incarcerated incisional hernia 10/12/2014 08/11/2015 Strangulated incisional hernia 07/24/2014 08/11/2015 Diabetes mellitus with renal manifestation 03/19/2014 08/11/2015 Albuminuria 03/19/2014 08/11/2015 Postoperative seroma 10/28/2013 016 Parastomal hernia of ileal conduit 05/02/2013 08/11/2015 Vaginal fistula 11/27/2012 08/11/2015 Bowel perforation 11/05/2012 08/11/[address] 11/05/2012 6 Injury to rectosigmoid colon 10/17/2012 08/11/2015 Pelvic pain 07/10/2012 08/11/2015 Dyspareunia 07/10/2012 08/11/2015 Fibroids 07/10/2012 08/11/2015 Sprain of neck 05/18/2011 06/24/2012 Reaction, situational, acute, to stress 05/18/2010 08/11/2015 Localized osteoarthrosis not specified whether primary or secondary, lower leg 05/13/2007 08/11/2015 Contusion of foot 02/18/2007 06/24/2012 Corns and callosities 10/14/20062015 Primary Localized Osteoarthrosis, Lower Leg 03/21/2006 08/11/2015 Other Specified Disorder of Skin 02/18/2006 06/24/2012 Tobacco use disorder 012 Spasm of muscle 08/11/2015 Asthma 08/11/2015 documented as of this encounter (statuses as of 10/11/2023) [facility] History of Past illness Narrative* Problem Noted Date Diagnosed Date Resolved Date Neck pain 10/03/2021 12/20/2021 Incarcerated incisional hernia 10/12/2014 08/11/2015 Strangulated incisional hernia 07/24/2014 08/11/2015 Diabetes mellitus with renal manifestation 03/19/2014 08/11/2015 Albuminuria 03/19/2014 08/11/2015 Postoperative seroma 10/28/2013 016 Parastomal hernia of ileal conduit 05/02/2013 08/11/2015 Vaginal fistula 11/27/2012 08/11/2015 Bowel perforation 11/05/2012 08/11/[address] 11/05/2012 6 Injury to rectosigmoid colon 10/17/2012 08/11/2015 Pelvic pain 07/10/2012 08/11/2015 Dyspareunia 07/10/2012 08/11/2015 Fibroids 07/10/2012 08/11/2015 Sprain of neck 05/18/2011 06/24/2012 Reaction, situational, acute, to stress 05/18/2010 08/11/2015 Localized osteoarthrosis not specified whether primary or secondary, lower leg 05/13/2007 08/11/2015 Contusion of foot 02/18/2007 06/24/2012 Corns and callosities 10/14/20062015 Primary Localized Osteoarthrosis, Lower Leg 03/21/2006 08/11/2015 Other Specified Disorder of Skin 02/18/2006 06/24/2012 Tobacco use disorder 012 Spasm of muscle 08/11/2015 Asthma 08/11/2015 documented as of this encounter (statuses as of 10/14/2023) [facility] History of Past illness Narrative* Problem Noted Date Diagnosed Date Resolved Date Neck pain 10/03/2021 12/20/2021 Incarcerated incisional hernia 10/12/2014 08/11/2015 Strangulated incisional hernia 07/24/2014 08/11/2015 Diabetes mellitus with renal manifestation 03/19/2014 08/11/2015 Albuminuria 03/19/2014 08/11/2015 Postoperative seroma 10/28/2013 016 Parastomal hernia of ileal conduit 05/02/2013 08/11/2015 Vaginal fistula 11/27/2012 08/11/2015 Bowel perforation 11/05/2012 08/11/[address] 11/05/2012 6 Injury to rectosigmoid colon 10/17/2012 08/11/2015 Pelvic pain 07/10/2012 08/11/2015 Dyspareunia 07/10/2012 08/11/2015 Fibroids 07/10/2012 08/11/2015 Sprain of neck 05/18/2011 06/24/2012 Reaction, situational, acute, to stress 05/18/2010 08/11/2015 Localized osteoarthrosis not specified whether primary or secondary, lower leg 05/13/2007 08/11/2015 Contusion of foot 02/18/2007 06/24/2012 Corns and callosities 10/14/20062015 Primary Localized Osteoarthrosis, Lower Leg 03/21/2006 08/11/2015 Other Specified Disorder of Skin 02/18/2006 06/24/2012 Tobacco use disorder 012 Spasm of muscle 08/11/2015 Asthma 08/11/2015 documented as of this encounter (statuses as of 11/01/2023) [facility] History of Past illness Narrative* Problem Noted Date Diagnosed Date Resolved Date Neck pain 10/03/2021 12/20/2021 Incarcerated incisional hernia 10/12/2014 08/11/2015 Strangulated incisional hernia 07/24/2014 08/11/2015 Diabetes mellitus with renal manifestation 03/19/2014 08/11/2015 Albuminuria 03/19/2014 08/11/2015 Postoperative seroma 10/28/2013 016 Parastomal hernia of ileal conduit 05/02/2013 08/11/2015 Vaginal fistula 11/27/2012 08/11/2015 Bowel perforation 11/05/2012 08/11/[address] 11/05/2012 6 Injury to rectosigmoid colon 10/17/2012 08/11/2015 Pelvic pain 07/10/2012 08/11/2015 Dyspareunia 07/10/2012 08/11/2015 Fibroids 07/10/2012 08/11/2015 Sprain of neck 05/18/2011 06/24/2012 Reaction, situational, acute, to stress 05/18/2010 08/11/2015 Localized osteoarthrosis not specified whether primary or secondary, lower leg 05/13/2007 08/11/2015 Contusion of foot 02/18/2007 06/24/2012 Corns and callosities 10/14/20062015 Primary Localized Osteoarthrosis, Lower Leg 03/21/2006 08/11/2015 Other Specified Disorder of Skin 02/18/2006 06/24/2012 Tobacco use disorder 012 Spasm of muscle 08/11/2015 Asthma 08/11/2015 documented as of this encounter (statuses as of 11/01/2023) [facility] History of Past illness Narrative* Problem Noted Date Diagnosed Date Resolved Date Neck pain 10/03/2021 12/20/2021 Incarcerated incisional hernia 10/12/2014 08/11/2015 Strangulated incisional hernia 07/24/2014 08/11/2015 Diabetes mellitus with renal manifestation 03/19/2014 08/11/2015 Albuminuria 03/19/2014 08/11/2015 Postoperative seroma 10/28/2013 016 Parastomal hernia of ileal conduit 05/02/2013 08/11/2015 Vaginal fistula 11/27/2012 08/11/2015 Bowel perforation 11/05/2012 08/11/[address] 11/05/2012 6 Injury to rectosigmoid colon 10/17/2012 08/11/2015 Pelvic pain 07/10/2012 08/11/2015 Dyspareunia 07/10/2012 08/11/2015 Fibroids 07/10/2012 08/11/2015 Sprain of neck 05/18/2011 06/24/2012 Reaction, situational, acute, to stress 05/18/2010 08/11/2015 Localized osteoarthrosis not specified whether primary or secondary, lower leg 05/13/2007 08/11/2015 Contusion of foot 02/18/2007 06/24/2012 Corns and callosities 10/14/20062015 Primary Localized Osteoarthrosis, Lower Leg 03/21/2006 08/11/2015 Other Specified Disorder of Skin 02/18/2006 06/24/2012 Tobacco use disorder 012 Spasm of muscle 08/11/2015 Asthma 08/11/2015 documented as of this encounter (statuses as of 09/21/2023) [facility] History of Present illness Narrative* Concepcion Ocampo, RT(R) - 04/10/2021 4:10 PM EDT Radiology Service Progress Note PATIENT NAME: Lina Isaac DATE OF SERVICE: April 10, 2021 TIME: 4:21 PM PATIENT IDENTITY VERIFICATION COMPLETED USING TWO (2) IDENTIFIERS: Name and Date of confirmedby patient verbally. FALL SCREENING: Has the patient had 2 falls in the last year or 1 fall with injury or currently using an Ambulatory Assistive Device (Walker, Cane, Wheelchair, Crutches, etc.)? No PATIENT GENDER DATA: Female. status: : No status: NO. PATIENT RELEVANT IMPLANT DATA REVIEWED: Yes RADIOLOGY DEPARTMENT: General X-ray: Exam(s) Completed: Abdomen X-Ray: Abdomen PERIPHERAL IV DATA: Not applicable SIGNED BY: RT Nando(R) April 10, 2021 4:21 PM [facility] History of Present illness Narrative* Concepcion Ocampo RT(R) - 12/01/2020 12:10 PM EDT Radiology Service Progress Note PATIENT NAME: Lian Isaac DATE OF SERVICE: December 01, 2020 TIME: 12:11 PM PATIENT IDENTITY VERIFICATION COMPLETED USING TWO (2) IDENTIFIERS: Name and Date of confirmedby patient verbally. FALL SCREENING: Has the patient had 2 falls in the last year or 1 fall with injury or currently using an Ambulatory Assistive Device (Walker, Cane, Wheelchair, Crutches, etc.)? No PATIENT GENDER DATA: Female. status: : No status: NO. PATIENT RELEVANT IMPLANT DATA REVIEWED: Yes RADIOLOGY DEPARTMENT: General X-ray: Exam(s) Completed: Spine X-Ray(s): Thoracic and Lumbar AP / LAT / L5-S1 PERIPHERAL IV DATA: Not applicable SIGNED BY: RT Nando(Zachariah) December 01, 2020 12:11 PM documented in this encounterG[facility] History of Past illness Narrative* Problem Noted Date Resolved Date Incarcerated incisional hernia 10/12/2014 0 08/11/2015 Strangulated incisional hernia 07/24/2014 0 08/11/2015 Diabetes mellitus with renal manifestation 03/1908/11/2015 Albuminuria 03/19/2014 08/11/2015 Postoperative seroma 10/28/2013 08/11/2015 Parastomal hernia of ileal conduit 05/02/2013 08/11/2015 Vaginal fistula 11/27/2012 08/11/2015 Bowel perforation 11/05/2012 08/11/[address] 11/05/2012 08/11/2015 Injury to rectosigmoid colon 10/17/2012 Pelvic pain 07/10/2012 08/11/2015 Dyspareunia 07/10/2012 08/11/2015 Fibroids 07/10/2012 08/11/2015 Sprain of neck 05/18/2011 06/24/2012 Reaction, situational, acute, to stress 05/18/20 10 08/11/2015 Localized osteoarthrosis not specified whether primary or secondary, lower leg 05/13/2007 08/11/2015 Contusion of foot 02/18/2007 06/24/2012 Corns and callosities 10/14/2006 08/11/2015 Primary Localized Osteoarthrosis, Lower Leg 02/2108/11/2015 Other Specified Disorder of Skin 02/18/2006 06/24/2012 Tobacco use disorder 06/24/2012 Spasm of muscle 08/11/2015 Asthma 08/11/2015 documented as of this encounter (statuses as of 10/18/2021) [facility] of [facility] illness Narrative* Problem Noted Date Resolved Date Incarcerated incisional hernia 10/12/2014 0 08/11/2015 Strangulated incisional hernia 07/24/2014 0 08/11/2015 Diabetes mellitus with renal manifestation 03/1908/11/2015 Albuminuria 03/19/2014 08/11/2015 Postoperative seroma 10/28/2013 08/11/2015 Parastomal hernia of ileal conduit 05/02/2013 08/11/2015 Vaginal fistula 11/27/2012 08/11/2015 Bowel perforation 11/05/2012 08/11/[address] 11/05/2012 08/11/2015 Injury to rectosigmoid colon 10/17/2012 Pelvic pain 07/10/2012 08/11/2015 Dyspareunia 07/10/2012 08/11/2015 Fibroids 07/10/2012 08/11/2015 Sprain of neck 05/18/2011 06/24/2012 Reaction, situational, acute, to stress 05/18/20 10 08/11/2015 Localized osteoarthrosis not specified whether primary or secondary, lower leg 05/13/2007 08/11/2015 Contusion of foot 02/18/2007 06/24/2012 Corns and callosities 10/14/2006 08/11/2015 Primary Localized Osteoarthrosis, Lower Leg 08/07/200508/11/2015 Other Specified Disorder of Skin 02/18/2006 06/24/2012 Tobacco use disorder 06/24/2012 Spasm of muscle 08/11/2015 Asthma 08/11/2015 documented as of this encounter (statuses as of 10/18/2021) [facility] of [facility] illness Narrative* Problem Noted Date Resolved Date Incarcerated incisional hernia 10/12/2014 0 08/11/2015 Strangulated incisional hernia 07/24/2014 0 08/11/2015 Diabetes mellitus with renal manifestation 03/1908/11/2015 Albuminuria 03/19/2014 08/11/2015 Postoperative seroma 10/28/2013 08/11/2015 Parastomal hernia of ileal conduit 05/02/2013 08/11/2015 Vaginal fistula 11/27/2012 08/11/2015 Bowel perforation 11/05/2012 08/11/[address] 11/05/2012 08/11/2015 Injury to rectosigmoid colon 10/17/2012 Pelvic pain 07/10/2012 08/11/2015 Dyspareunia 07/10/2012 08/11/2015 Fibroids 07/10/2012 08/11/2015 Sprain of neck 05/18/2011 06/24/2012 Reaction, situational, acute, to stress 05/18/20 10 08/11/2015 Localized osteoarthrosis not specified whether primary or secondary, lower leg 05/13/2007 08/11/2015 Contusion of foot 02/18/2007 06/24/2012 Corns and callosities 10/14/2006 08/11/2015 Primary Localized Osteoarthrosis, Lower Leg /07/200508/11/2015 Other Specified Disorder of Skin 02/18/2006 06/24/2012 Tobacco use disorder 06/24/2012 Spasm of muscle 08/11/2015 Asthma 08/11/2015 documented as of this encounter (statuses as of 2021) [facility] illness Narrative* Problem Noted Date Resolved Date Incarcerated incisional hernia 10/12/2014 0 08/11/2015 Strangulated incisional hernia 07/24/2014 0 08/11/2015 Diabetes mellitus with renal manifestation 03/1908/11/2015 Albuminuria 03/19/2014 08/11/2015 Postoperative seroma 10/28/2013 08/11/2015 Parastomal hernia of ileal conduit 05/02/2013 08/11/2015 Vaginal fistula 11/27/2012 08/11/2015 Bowel perforation 11/05/2012 08/11/[address] 11/05/2012 08/11/2015 Injury to rectosigmoid colon 10/17/2012 Pelvic pain 07/10/2012 08/11/2015 Dyspareunia 07/10/2012 08/11/2015 Fibroids 07/10/2012 08/11/2015 Sprain of neck 05/18/2011 06/24/2012 Reaction, situational, acute, to stress 05/18/20 10 08/11/2015 Localized osteoarthrosis not specified whether primary or secondary, lower leg 05/13/2007 08/11/2015 Contusion of foot 02/18/2007 06/24/2012 Corns and callosities 10/14/2006 08/11/2015 Primary Localized Osteoarthrosis, Lower Leg 02/2108/11/2015 Other Specified Disorder of Skin 02/18/2006 06/24/2012 Tobacco use disorder 06/24/2012 Spasm of muscle 08/11/2015 Asthma 08/11/2015 documented as of this encounter (statuses as of 2021) [facility] Narrative* Problem Noted Date Resolved Date Incarcerated incisional hernia 10/12/2014 0 08/11/2015 Strangulated incisional hernia 07/24/2014 0 08/11/2015 Diabetes mellitus with renal manifestation 03/1908/11/2015 Albuminuria 03/19/2014 08/11/2015 Postoperative seroma 10/28/2013 08/11/2015 Parastomal hernia of ileal conduit 05/02/2013 08/11/2015 Vaginal fistula 11/27/2012 08/11/2015 Bowel perforation 11/05/2012 08/11/[address] 11/05/2012 08/11/2015 Injury to rectosigmoid colon 10/17/2012 Pelvic pain 07/10/2012 08/11/2015 Dyspareunia 07/10/2012 08/11/2015 Fibroids 07/10/2012 08/11/2015 Sprain of neck 05/18/2011 06/24/2012 Reaction, situational, acute, to stress 05/18/20 10 08/11/2015 Localized osteoarthrosis not specified whether primary or secondary, lower leg 05/13/2007 08/11/2015 Contusion of foot 02/18/2007 06/24/2012 Corns and callosities 10/14/2006 08/11/2015 Primary Localized Osteoarthrosis, Lower Leg 08/07/200508/11/2015 Other Specified Disorder of Skin 02/18/2006 06/24/2012 Tobacco use disorder 06/24/2012 Spasm of muscle 08/11/2015 Asthma 08/11/2015 documented as of this encounter (statuses as of 10/30/2021) [facility] Narrative* Problem Noted Date Resolved Date Incarcerated incisional hernia 10/12/2014 0 08/11/2015 Strangulated incisional hernia 07/24/2014 0 08/11/2015 Diabetes mellitus with renal manifestation 03/1908/11/2015 Albuminuria 03/19/2014 08/11/2015 Postoperative seroma 10/28/2013 08/11/2015 Parastomal hernia of ileal conduit 05/02/2013 08/11/2015 Vaginal fistula 11/27/2012 08/11/2015 Bowel perforation 11/05/2012 08/11/[address] 11/05/2012 08/11/2015 Injury to rectosigmoid colon 10/17/2012 Pelvic pain 07/10/2012 08/11/2015 Dyspareunia 07/10/2012 08/11/2015 Fibroids 07/10/2012 08/11/2015 Sprain of neck 05/18/2011 06/24/2012 Reaction, situational, acute, to stress 05/18/20 10 08/11/2015 Localized osteoarthrosis not specified whether primary or secondary, lower leg 05/13/2007 08/11/2015 Contusion of foot 02/18/2007 06/24/2012 Corns and callosities 10/14/2006 08/11/2015 Primary Localized Osteoarthrosis, Lower Leg 08/07/200508/11/2015 Other Specified Disorder of Skin 02/18/2006 06/24/2012 Tobacco use disorder 06/24/2012 Spasm of muscle 08/11/2015 Asthma 08/11/2015 documented as of this encounter (statuses as of 11/15/2021) [facility] Narrative* Problem Noted Date Resolved Date Incarcerated incisional hernia 10/12/2014 0 08/11/2015 Strangulated incisional hernia 07/24/2014 0 08/11/2015 Diabetes mellitus with renal manifestation 03/1908/11/2015 Albuminuria 03/19/2014 08/11/2015 Postoperative seroma 10/28/2013 08/11/2015 Parastomal hernia of ileal conduit 05/02/2013 08/11/2015 Vaginal fistula 11/27/2012 08/11/2015 Bowel perforation 11/05/2012 08/11/[address] 11/05/2012 08/11/2015 Injury to rectosigmoid colon 10/17/2012 Pelvic pain 07/10/2012 08/11/2015 Dyspareunia 07/10/2012 08/11/2015 Fibroids 07/10/2012 08/11/2015 Sprain of neck 05/18/2011 06/24/2012 Reaction, situational, acute, to stress 05/18/20 10 08/11/2015 Localized osteoarthrosis not specified whether primary or secondary, lower leg 05/13/2007 08/11/2015 Contusion of foot 02/18/2007 06/24/2012 Corns and callosities 10/14/2006 08/11/2015 Primary Localized Osteoarthrosis, Lower Leg 02/2108/11/2015 Other Specified Disorder of Skin 02/18/2006 06/24/2012 Tobacco use disorder 06/24/2012 Spasm of muscle 08/11/2015 Asthma 08/11/2015 documented as of this encounter (statuses as of 11/15/2021) [facility] Narrative* Problem Noted Date Resolved Date Incarcerated incisional hernia 10/12/2014 0 08/11/2015 Strangulated incisional hernia 07/24/2014 0 08/11/2015 Diabetes mellitus with renal manifestation 03/1908/11/2015 Albuminuria 03/19/2014 08/11/2015 Postoperative seroma 10/28/2013 08/11/2015 Parastomal hernia of ileal conduit 05/02/2013 08/11/2015 Vaginal fistula 11/27/2012 08/11/2015 Bowel perforation 11/05/2012 08/11/[address] 11/05/2012 08/11/2015 Injury to rectosigmoid colon 10/17/2012 Pelvic pain 07/10/2012 08/11/2015 Dyspareunia 07/10/2012 08/11/2015 Fibroids 07/10/2012 08/11/2015 Sprain of neck 05/18/2011 06/24/2012 Reaction, situational, acute, to stress 05/18/20 10 08/11/2015 Localized osteoarthrosis not specified whether primary or secondary, lower leg 05/13/2007 08/11/2015 Contusion of foot 02/18/2007 06/24/2012 Corns and callosities 10/14/2006 08/11/2015 Primary Localized Osteoarthrosis, Lower Leg 02/2108/11/2015 Other Specified Disorder of Skin 02/18/2006 06/24/2012 Tobacco use disorder 06/24/2012 Spasm of muscle 08/11/2015 Asthma 08/11/2015 documented as of this encounter (statuses as of 11/21/2021) [facility] Date/[facility] February 25, 2025 2:3 4pm [facility] Medical Records Department [address] [place] [address] Instructions for Home/Discharge Instructions 02/25/25 1433 MR#: [id number] Acct: [id number] Name: MART ISAACJOHNNY Del Angel Rep #:[id number] : 1965 59 From: Clarissa Herrera MD PCP: Dr. Jese Zheng, DO Status:AD M IN Discharge Instructions DC O2, CPAP, BIPAP needs Home O2 Discharge instructions: Yes Type of respiratory needs?: Oxygen Oxygen frequency: Continuous Continuous oxygen liters per minute: 2 Dressing / Incision Discharge Activity: Return to Normal Activity Dressing / Incision Call your doctor if you observe: Fever of 101 or Higher, Shortness of breath, Dizziness and Chest pain Follow Up Care Test Results: Test results from this visit will be discussed in further detail at your follow- up appointment, if applicable. Discharge Plan Admission Admit Date/Time: 02/22/25 20:21 Primary Reason for Your Visit: nonstemi, hypoxia Attending Provider: Clarissa Herrera Primary Care Provider: Jese Zheng Consulting Providers: Denton Cook; Faye Mace; Elver Montero; Capri Tucker; Justina Abraham; Juju Love; Gopal Talbot; Chet Sidhu; Amrita Woo; MARITZA CHAMORRO; Gayathri Jacome; Ellen Markham; Gus Mott; Mary Kay Dugan Instructions Patient Instructions: Coping with Heart Failure, Heart Attack Dc Discharge Orders/Prescriptions Prescriptions: New carvedilol 3.125 mg Tablet 3.125 mg PO BIDCM Qty: 60 2RF Continued albuterol sulfate 2.5 mg /3 mL (0.083 %) solution for nebulization 2.5 mg INHALATION Q4H PRN (Reason: shortness of breath or wheezing) alcohol swabs [BD Alcohol Swabs] Pads, Medicated See Rx Instructions TOPICAL .COMPLEX Rx Instructions: TOPICAL use 4-5 x qd to check BG and with insulin injections; aspirin [Adult Low Dose Aspirin] 81 mg tablet,delayed release (DR/EC) 81 mg PO DAILY atorvastatin 40 mg tablet 40 mg PO DAILY (DME) FreeStyle Lite Strips Strip See Rx Instructions .ROUTE .MEDSUPPLY Qty: 10 Rx Instructions: use to check BG tid (DME) blood-glucose meter [FreeStyle Lite Meter] Kit See Rx Instructions .ROUTE .MEDSUPPLY Qty: 1 Rx Instructions: As directed (DME) pen needle, diabetic [1st Tier Unifine Pentips] 31 gauge x 3/16 needle See Rx Instructions .ROUTE .MEDSUPPLY Qty: 30 Rx Instructions: use 4 x qd to inject insulin famotidine 20 mg tablet 20 mg PO BID insulin degludec [Tresiba FlexTouch U-100] 100 unit/mL (3 mL) insulin pen 112 unit SC QHS mupirocin 2 % ointment 1 applic TOPICAL BID polyethylene glycol 3350 [Miralax] 17 gram/dose powder 17 g PO BID (DME) lancets [Unilet Super Thin Lancets] 30 gauge misc See Rx Instructions .ROUTE .MEDSUPPLY Qty: 25 Rx Instructions: use to check BG 1 x qd (DME) FreeStyle Michi 14 Day Sensor Kit See Rx Instructions .ROUTE .MEDSUPPLY Qty: 2 6RF Rx Instructions: As directed metformin 1,000 mg tablet 1,000 mg PO BID albuterol sulfate 1 INHALER inhaler 2 puff inhalation Q4H PRN PRN (Reason: Wheezing) Patient Comments: ASTHMA calcium citrate-vitamin D3 1 EACH tablet 1 tab PO DAILY Patient Comments: SUPPLEMENT lisinopril 10 MG tablet 1 tab PO DAILY Patient Comments: TAKE 1 TABLET EVERY DAY magnesium citrate 300 ML solution 150 ml PO Q6H PRN PRN (Reason: Constipation) Qty: 300 0RF cyanocobalamin (vitamin B-12) 1,000 mcg tablet extended release 2,000 mcg PO DAILY Jardiance 10 mg tablet 25 mg PO BREAKFAST Trulicity 4.5 mg/0.5 mL pen injector 4.5 mg subcut QWEEK fluoxetine 20 mg capsule 20 mg PO DAILY gabapentin 100 mg capsule 100 mg PO QHS Novolog FlexPen U-100 Insulin 100 unit/mL (3 mL) insulin pen 20 unit SC TID MDD 80 Qty: 24 4RF Rx Instructions: plus sliding scale Referrals / Follow Up: Elver Montero MD [Med Staff - Active Staff] - Within 1 Month Jese Zheng DO [Primary Care Provider] - Within 1 Week Disposition Disposition (needs filled in before D/C Order can be placed): Home, Self Care 02/25/25 1434<Electronically signed by Clarissa Herrera MD>Clarissa Herrera MD CC: Ellen Markham; Justina Abraham MD; Juju Love MD; Dr. Bren Chamorro MD;Dr. Capri Tucker MD; Dr. Elver Montero MD; Dr. Jese Zheng DO; Dr. Chet Sidhu MD; Dr. Faye Mace DO; Dr. Denton Cook MD; Amrita Woo MD; Gopal Talbot MD; Gayathri Jacome DO; Gus Mott MD; Mary Kay Dugan DO ~ Signed [facility] Work Phone: Evaluation note* Diagnosis Uncontrolled type 2 diabetes mellitus with hyperglycemia (HCC)- Primary Essential hypertension Unspecified essential hypertension Hyperlipidemia, mixed Mixed hyperlipidemia Generalized abdominal pain Abdominal pain, generalized [facility]* Diagnosis Adverse effect of treatment, subsequent encounter [facility]* Diagnosis Uncontrolled type 2 diabetes mellitus with hyperglycemia (HCC)- Primary Essential hypertension Unspecified essential hypertension Chronic constipation Unspecified constipation Injury of left thumb, initial encounter Injury of left wrist, initial encounter Hyperlipidemia, mixed Mixed hyperlipidemia Generalized abdominal pain Abdominal pain, generalized Obesity, Class I, BMI 30-34.9 Obesity, unspecified [facility] Diagnosis Injury of left thumb, initial encounter- Primary Injury of left wrist, initial encounter [facility]* Diagnosis Cellulitis of left foot- Primary Cellulitis and abscess of foot, except toes [facility]* Diagnosis Uncontrolled type 2 diabetes mellitus with hyperglycemia (HCC)- Primary [facility]* Diagnosis Nonintractable episodic headache, unspecified headache type [facility]* Diagnosis Ingrown left greater toenail- Primary Ingrowing nail Localized swelling of left foot Pain of left heel Pain in limb Injury of left heel, subsequent encounter Left foot pain Pain in limb [facility]* Diagnosis Uncontrolled type 2 diabetes mellitus with hyperglycemia (HCC)- Primary Medication management Encounter for long-term (current) use of other medications documented in this encounter [facility] note* Diagnosis Uncontrolled type 2 diabetes mellitus with hyperglycemia (HCC) [facility]* Diagnosis Screening for osteoporosis Special screening for osteoporosis [facility] Diagnosis Uncontrolled type 2 diabetes mellitus with hyperglycemia (HCC)- Primary Vitamin D deficiency Unspecified vitamin D deficiency Vitamin B12 deficiency Other B-complex deficiencies Need for influenza vaccination Need for prophylactic vaccination and inoculation against influenza Need for shingles vaccine Need for prophylactic vaccination and inoculation against other viral diseases Essential hypertension Unspecified essential hypertension Hyperlipidemia, mixed Mixed hyperlipidemia [facility]* Diagnosis Type 2 diabetes mellitus with diabetic polyneuropathy (HCC) Type II or unspecified type diabetes mellitus with neurological manifestations, not stated as uncontrolled [facility] Diagnosis Acute right-sided low back pain without sciatica- Primary [facility]* Diagnosis Right flank pain- Primary Abdominal pain, unspecified site RUQ pain Abdominal pain, right upper quadrant Chronic RLQ pain Abdominal pain, right lower quadrant Nausea Nausea alone Nausea and vomiting, unspecified vomiting type [facility]* Diagnosis Abdominal pain, unspecified abdominal location- Primary Change in bowel habits Other symptoms involving digestive system [facility] Diagnosis Uncontrolled type 2 diabetes mellitus with hyperglycemia (HCC)- Primary Essential hypertension Unspecified essential hypertension [facility] Diagnosis Influenza A- Primary Influenza with other respiratory manifestations Persistent cough Cough Fever, unspecified fever cause [facility]* Diagnosis Uncontrolled type 2 diabetes mellitus with hyperglycemia (HCC) [facility]* Diagnosis Type 2 diabetes mellitus with diabetic polyneuropathy, with long-term current use of insulin (HCC)- Primary Encounter for screening mammogram for malignant neoplasm of breast Other screening mammogram Need for pneumococcal 20-valent conjugate vaccination Need for shingles vaccine Need for prophylactic vaccination and inoculation against other viral diseases Type 2 diabetes mellitus with peripheral neuropathy (HCC) Other polyneuropathy Influenza A Influenza with other respiratory manifestations Generalized abdominal pain Abdominal pain, generalized Obesity, Class I, BMI 30-34.9 Obesity, unspecified [facility] Diagnosis Uncontrolled type 2 diabetes mellitus with hyperglycemia (HCC)- Primary [facility] Diagnosis Uncontrolled type 2 diabetes mellitus with hyperglycemia (HCC)- Primary [facility] Diagnosis Urinary frequency- Primary Glucosuria Glycosuria Acute left-sided low back pain without sciatica [facility] Diagnosis Uncontrolled type 2 diabetes mellitus with hyperglycemia (HCC)- Primary Essential hypertension Unspecified essential hypertension [facility]* Diagnosis Nausea- Primary Nausea alone Pain of upper abdomen Abdominal pain, other specified site Type 2 diabetes mellitus with peripheral neuropathy (HCC) RUQ pain Abdominal pain, right upper quadrant Gastroesophageal reflux disease, unspecified whether esophagitis present Abdominal bloating Flatulence, eructation, and gas pain Acute left flank pain Abdominal pain, unspecified site Chest tightness Other chest pain [facility]* Diagnosis Lung nodules- Primary Other nonspecific abnormal finding of lung field Multiple lung nodules Other nonspecific abnormal finding of lung field Chest tightness Other chest pain [facility] noteNo assessment information availableWParkview Health Work Phone: [facility]* Diagnosis Uncontrolled type 2 diabetes mellitus with hyperglycemia (HCC)- Primary documented in this encounter [facility] note* Diagnosis Current moderate episode of major depressive disorder without prior episode (HCC)- Primary Type 2 diabetes mellitus with peripheral neuropathy (HCC) Fatigue, unspecified type Dyslipidemia Other and unspecified hyperlipidemia SOB (shortness of breath) Shortness of breath Wheezing Pulmonary nodule Solitary pulmonary nodule Multiple lung nodules Other nonspecific abnormal finding of lung field [facility]* Diagnosis Other polyneuropathy documented in this encounter [facility] note* Diagnosis Type 2 diabetes mellitus with peripheral neuropathy (HCC)- Primary [facility]* Diagnosis Type 2 diabetes (HCC) [facility]* Diagnosis Vitamin B12 deficiency Other B-complex deficiencies documented in this encounter [facility] note* Diagnosis Acute non-recurrent sinusitis, unspecified location- Primary documented in this encounter [facility] note* Diagnosis Acute COVID-19- Primary documented in this encounter [facility] note* Diagnosis SOB (shortness of breath) Shortness of breath Wheezing Pulmonary nodule Solitary pulmonary nodule documented in this encounter [facility] note* Diagnosis Chest tightness Other chest pain documented in this encounter [facility] note* Diagnosis Nausea Nausea alone Right flank pain Abdominal pain, unspecified site RUQ pain Abdominal pain, right upper quadrant Chronic RLQ pain Abdominal pain, right lower quadrant Nausea and vomiting, unspecified vomiting type documented in this encounter [facility] note* Diagnosis Nausea Nausea alone Pain of upper abdomen Abdominal pain, other specified site Type 2 diabetes mellitus with peripheral neuropathy (HCC) RUQ pain Abdominal pain, right upper quadrant Gastroesophageal reflux disease, unspecified whether esophagitis present Abdominal bloating Flatulence, eructation, and gas pain documented in this encounter [facility] note* Diagnosis Encounter for screening mammogram for malignant neoplasm of breast Other screening mammogram [facility]* Diagnosis Nausea Nausea alone Pain of upper abdomen Abdominal pain, other specified site Type 2 diabetes mellitus with peripheral neuropathy (HCC) RUQ pain Abdominal pain, right upper quadrant Gastroesophageal reflux disease, unspecified whether esophagitis present Abdominal bloating Flatulence, eructation, and gas pain documented in this encounter [facility]* Diagnosis Right leg swelling Swelling of limb Right calf pain documented in this encounter [facility] note* Diagnosis Type 2 diabetes mellitus with peripheral neuropathy (HCC)- Primary Need for influenza vaccination Need for prophylactic vaccination and inoculation against influenza Need for COVID-19 vaccine Right leg swelling Swelling of limb Right calf pain Acute bronchitis, unspecified organism Other polyneuropathy Current moderate episode of major depressive disorder without prior episode (HCC) Fatigue, unspecified type Dyslipidemia Other and unspecified hyperlipidemia Hepatic steatosis Other chronic nonalcoholic liver disease Obesity, Class I, BMI 30-34.9 Obesity, unspecified documented in this encounter [facility]* Diagnosis Uncontrolled type 2 diabetes mellitus with hyperglycemia (HCC)- Primary documented in this [facility]* Diagnosis Type 2 diabetes mellitus with peripheral neuropathy (HCC)- Primary Other polyneuropathy Fatigue, unspecified type Dyslipidemia Other and unspecified hyperlipidemia Hepatic steatosis Other chronic nonalcoholic liver disease Obesity, Class I, BMI 30-34.9 Obesity, unspecified Vitamin D deficiency Unspecified vitamin D deficiency Acute bronchitis, unspecified organism documented in this encounter [facility]* Diagnosis Vitamin D deficiency Unspecified vitamin D deficiency documented in this encounter [facility]* Diagnosis Uncontrolled type 2 diabetes mellitus with hyperglycemia (HCC)- Primary documented [facility] this [facility]* Diagnosis Ear fullness, bilateral- Primary documented in this encounter [facility] note* Diagnosis Encounter for screening mammogram for breast cancer documented in this encounter [facility]* Diagnosis Type 2 diabetes mellitus without complication, with long-term current use of insulin (HCC)- Primary Vitamin B12 deficiency Other B-complex deficiencies Hepatic steatosis Other chronic nonalcoholic liver disease Dyslipidemia Other and unspecified hyperlipidemia Acute otitis externa of right ear, unspecified type Carotid atherosclerosis, bilateral documented in this encounter [facility]* Diagnosis Uncontrolled type 2 diabetes mellitus with hyperglycemia (HCC)- Primary documented in this [facility]* Diagnosis Type 2 diabetes mellitus without complication, with long-term current use of insulin (HCC)- Primary Vitamin B12 deficiency Other B-complex deficiencies Dyslipidemia Other and unspecified hyperlipidemia Vitamin D deficiency Unspecified vitamin D deficiency Essential hypertension Unspecified essential hypertension Gastroesophageal reflux disease, unspecified whether esophagitis present [facility] Diagnosis SOB (shortness of breath) Shortness of breath Wheezing Pulmonary nodule Solitary pulmonary nodule [facility] Diagnosis Encounter for screening mammogram for breast cancer [facility] Diagnosis Injury of left thumb, initial encounter Injury of left wrist, initial encounter [facility] Diagnosis Ingrown left greater toenail Ingrowing nail Localized swelling of left foot Pain of left heel Pain in limb Injury of left heel, subsequent encounter Left foot pain Pain in limb [facility] Diagnosis Uncontrolled type 2 diabetes mellitus with hyperglycemia (HCC)- Primary documented [facility]* Diagnosis Acute right-sided low back pain with right-sided sciatica Acute right-sided thoracic back pain [facility] Diagnosis Generalized abdominal pain Abdominal pain, generalized [facility] Diagnosis Acute non-recurrent maxillary sinusitis- Primary Acute bronchitis, unspecified organism Rhinorrhea Other diseases of nasal cavity and sinuses [facility] Diagnosis Right hand pain Pain in limb Localized swelling of finger of right hand [facility] Diagnosis Uncontrolled type 2 diabetes mellitus with hyperglycemia (HCC)- Primary [facility] Diagnosis Right hand pain- Primary Pain in limb [facility] Diagnosis Type 2 diabetes mellitus with peripheral neuropathy (HCC)- Primary Right hand pain Pain in limb Trigger finger, unspecified finger, unspecified laterality [facility] Diagnosis Type 2 diabetes mellitus with peripheral neuropathy (HCC)- Primary Acute cough Rhonchi at both lung bases Shortness of breath COVID-19 Vitamin B12 deficiency Other B-complex deficiencies Vitamin D deficiency Unspecified vitamin D deficiency Dyslipidemia Other and unspecified hyperlipidemia Essential hypertension Unspecified essential hypertension Trigger middle finger of right hand Trigger finger (acquired) Right hand pain Pain in limb [facility] Diagnosis Uncontrolled type 2 diabetes mellitus with hyperglycemia (HCC)- Primary [facility] Shortness of breath COVID-19 [facility] Diagnosis Uncontrolled type 2 diabetes mellitus with hyperglycemia (HCC)- Primary [facility] Diagnosis Type 2 diabetes mellitus without complication, with long-term current use of insulin (HCC)- Primary Trigger middle finger of right hand Trigger finger (acquired) Right hand pain Pain in limb Dysuria Dyslipidemia Other and unspecified hyperlipidemia Essential hypertension Unspecified essential hypertension [facility] Diagnosis Uncontrolled type 2 diabetes mellitus with hyperglycemia (HCC)- Primary [facility] Diagnosis Onset Date Resolution Status Admit Date Acute CHF acute February 22 8:21pm Acute cough acute February 22, 025 8:21pm Chest pain acute February 22 8:21pm Elevated troponin acute February 22, 2025 8:21pm Hypoxemia acute February 22 8:21pm [facility] Work Phone: Evaluation note* Diagnosis Chest pain on breathing- Primary Painful respiration Type 2 diabetes mellitus with peripheral neuropathy (HCC) Shortness of breath Fatigue, unspecified type [facility] Author Denton Cook [facility] Note Date/Time February 22, 2025 8:2 1pm [facility] Medical Records Department [address] [place] [id number] History & Physical Exam 02/22/252008 MR#: [id number] Acct: [id number] Name: LINA ISAAC Rep #:[id number] : 1965 59 From: Denton Cook MD PCP: Dr. Jese Zheng, DO Status:RE G ER Location: ED HPI - General General Date of Admission: 02/22/25 Date of Service: 02/22/25 Chief Complaint: Chest pain HPI Narrative LINA ISAAC, is a 59 F who presents to the emergency department with a chief complaint of chest pain. Onset of symptoms began 1 week ago but it progressed and became worse associated with shortness of breath and cough. Patient states the pain gets worse after laying down or after eating as well. Patient has significant past medical history of diabetes and is a chronic smoker but denies strong family history of coronary artery disease. Pain is described as 01/28 midsternal nonradiating chest pain that was alleviated the emergency room by nitroglycerin. Initially she was thought to have a GI symptoms and was given a GI cocktail that she actually vomited in the emergency department. Chest x-ray reveals possible pneumonia and she is requiring oxygen to maintain her saturation greater than 90%. Antibiotics for community-acquired pneumonia were initiated in the emergency room. Troponin was also elevated 181 and her BN TP was elevated at 3685. She will be admitted to the progressive care unit and will obtain a cardiology consult for possible heart catheterization and echocardiogram will be ordered as well. [facility] Medical History (Updated 02/22/25 @ 20:[address] John Catherine MD) Dyslipidemia Trigger ring finger of left hand Obesity Essential hypertension GERD (gastroesophageal reflux disease) Low HDL (under 40) Incisional hernia without obstruction or gangrene Unspecified hereditary and idiopathic peripheral neuropathy Type 2 diabetes mellitus with polyneuropathy Kidney stones Blood clot in vein Hx: UTI (urinary tract infection) Home Medications ?Medication ?Instructions ?Recorded ?Last Taken ?Type albuterol sulfate 90 mcg/actuation 2 puff inhalation Q 4H PRN PRN 04/08/14 04/08/14 02:30 History aerosol inhaler Wheezing calcium 315 mg (as 1 tab PO DAILY 04/08/1403/22 22:00 History citrate)-vitamin D3 6.25 mcg (250 2 ta b unit) tablet lisinopril 10 mg tablet 1 tab PO DAILY 04/07/1703/22 08:00 History 1 tab magnesium citrate 150 ml PO Q6H PRN PRN Consti pation 01/22/19 Unknown Rx #300 mL albuterol sulfate 2.5 mg/3 mL 2.5 mg inhalation Q4H IA N 05/11/19 Unknown History (0.083 %) solution for nebulization shortness of breat h or wheezing alcohol swabs (BD Alcohol Swabs) See Rx Instructions t opical 05/11/19 Unknown History .COMPLEX aspirin 81 mg tablet,delayed 81 mg PO DAILY 05/11/19 U nknown History release (Adult Low Dose Aspirin) atorvastatin 40 mg tablet 40 mg PO DAILY 05/11/19 Unkn own History blood sugar diagnostic (FreeStyle #10 ea 05/11/19 Unkn own History Lite Strips) blood-glucose meter (FreeStyle #1 ea 05/11/19 Unknown History Lite Meter kit) clotrimazole-betamethasone 1 1 applic topical BID 04/22 08/09 Unknown History %-0.05 % topical cream (Lotrisone) famotidine 20 mg tablet 20 mg PO BID 05/11/19 Unknow n History glucose 4 gram chewable tablet 16 g PO Q15M PRN Unknown History insulin degludec 100 unit/mL (3 112 unit subcut QHS Unknown History mL) subcutaneous pen (Tresiba FlexTouch U-100 insulin) lancets 30 gauge (Unilet Super #25 ea 05/11/19 Unknown History Thin Lancets) mupirocin 2 % topical ointment 1 applic topical BID Unknown History pen needle, diabetic 31 gauge x #30 ea 05/11/19 Unknow n History 3/16 (1st Tier Unifine Pentips) polyethylene glycol 3350 17 17 g PO BID 05/11/19 Unkno wn History gram/dose oral powder (Miralax) flash glucose sensor (FreeStyle #2 ea 02/26/20 Unknown Rx Michi 14 Day Sensor kit) insulin aspart U-100 100 unit/mL 20 unit (0.2 mL) subc ut TID #24 mL 04/05/20 Unknown Rx (3 mL) subcutaneous pen (Novolog FlexPen U-100 Insulin aspart) metformin 1,000 mg tablet 1,000 mg PO DAILY 02/06/21 U nknown History cyanocobalamin (vitamin B-12) 2,000 mcg PO DAILY 02/22 Unknown History 1,000 mcg tablet,extended release dulaglutide 4.5 mg/0.5 mL 4.5 mg subcut QWEEK 02/22/25 Unknown History subcutaneous pen injector (Trulicity) empagliflozin 10 mg tablet 25 mg PO BREAKFAST 02/22/25 Unknown History (Jardiance) fluoxetine 20 mg capsule 20 mg PO DAILY 02/22/25 Unkn own History gabapentin 100 mg capsule 100 mg PO QHS 02/22/25 Unkno wn History levalbuterol tartrate 45 2 inh inhalation Q4H PRN lui rtness 02/22/25 Unknown History mcg/actuation aerosol inhaler of breath or wheezing (Xopenex HFA) Allergy/AdvReac Type Severity Reaction Status Date / Time tramadol Allergy Hives Verified 02/22/25 16:32 albuterol sulfate (From AdvReac Vomiting Verified 02/22/25 16:32 Proventil HFA) ammonium lactate (From AdvReac Other Verified 02/22/25 16:32 Lac-Hydrin) phentermine HCl (From AdvReac Chest Verified 02/22/25 16:32 Adipex-P) tightness Family History Uncle Cancer Sister Diabetes Social History Smoking Status: Never smoker alcohol intake: never substance use type: does not use ROS Constitutional Constitutional: Denies chills or fever(s) Eyes Eyes: Denies change in vision ENT HEENT: Denies abnormal hearing Cardiovascular Cardiovascular: Reports chest pain; Denies edema Respiratory/Chest Respiratory/Chest: Reports cough and shortness of breath with exertion; Denies wheezing Gastrointestinal Gastrointestinal: Reports abdominal pain, nausea and vomiting Genitourinary Genitourinary: Denies dysuria Musculoskeletal Musculoskeletal: Reports back pain Integumentary Integumentary: Denies dry skin Neurologic Neurologic: Denies confusion or dizziness Psychiatric Psychiatric: Denies anxiety Vital Signs Vital Signs Vital Signs: 02/22/25 16:31 02/22/25 17:54 02/22/25 18:07 Temperature 98.3 F Temperature Source Oral Pulse Rate 106 H 113 H Respiratory Rate 19 H 18 Blood Pressure 146/98 H Blood Pressure Mean 114 Pulse Ox 96 94 Oxygen Delivery Method Room Air Room Air Oxygen Flow Rate (L/min) 02/22/25 18:07 02/22/25 19:03 02/22/25 19:56 Temperature Temperature Source Pulse Rate 120 H 120 H 116 H Respiratory Rate 19 H 18 22 H Blood Pressure 129/87 H 132/93 H Blood Pressure Mean 101 106 Pulse Ox 94 95 87 Oxygen Delivery Method Room Air Room Air Room Air Oxygen Flow Rate (L/min) 02/22/25 19:56 Temperature Temperature Source Pulse Rate Respiratory Rate Blood Pressure Blood Pressure Mean Pulse Ox 93 Oxygen Delivery Method Nasal Cannula Oxygen Flow Rate (L/min) 2 Weight Weight: 214 lb 4.629 oz Body Mass Index (BMI) 32.4 Physical Exam Const alert and oriented x3 General Appearance: cooperative and well developed HEENT normocephalic Eyes PERRL Neck no lymphadenopathy Lymph Lymphatic: no lymphadenopathy noted Resp normal respiratory effort, normal air movement and clear to auscultation bilaterally Cardio regular rhythm, S1 normal heart sound, S2 normal heart sound, no murmurs, no ruband no gallops Rate: tachycardic GI normal to inspection, nondistended, normoactive bowel sounds and non-tender Extremity normal capillary refill Skin General Skin Exam: turgor normal Neuro no focal motor deficits and no sensory deficits noted Psych thought process normal, cooperative and affect normal Results Lab / Micro Data 02/22/25 17:45 02/22/25 17:45 Labs: Laboratory Results - last 24 hr 02/22/25 17:45: WBC 7.8, RBC 4.29, Hgb 13.3, Hct 38.3, MCV 89.3, MCH 31.0, MCHC 34.7, RDW Std Deviation 39.5, RDW Coeff of Brett 12.2, Plt Count 278, MPV 10.0, Immature Gran % (Auto) 0.400, Neut % (Auto) 48.8, Lymph % (Auto) 37.3, Lander % (Auto) 11.0 H, Eos % (Auto) 1.7, Baso % (Auto) 0.8, Absolute Neuts (auto) 3.8, Absolute Lymphs (auto) 2.92, Nucleated RBC % 0, Sodium 139, Potassium 3.6, Chloride 103, Carbon Dioxide 24.0, Anion Gap 12, BUN 9, Creatinine 0.57 L, EstimCreat Clear Calc 127.95, Est GFR (MDRD) Non-Af 104, BUN/Creatinine Ratio 15.5, Glucose 270 H, Calcium 9.3, Troponin T High Sens 181 H*, NT pro BNP II 3685 H 02/22/25 19:24: Troponin T Hi Sens 2 Hr 160 H* Rhythm Strip Rhythm Strip: Sinus Tach Rate: 110 Ectopy: None Imaging Radiology Impression Chest X-Ray 02/22/25 18:16 IMPRESSION: Bilateral coarse reticular airspace opacities, which may reflect interstitial fibrotic lung changes, interstitial edema, or possibly atypical/viral infection in the appropriate clinical context. Reading Location: [facility] Assessment & Plan Assessment/Plan (1) Chest pain: (2) Hypoxemia: (3) Elevated troponin: (4) Acute CHF: (5) Acute cough: PLAN: Plan 1 acute cough, hypoxemia?community-acquired pneumonia suspected based on preliminary chest x-ray evaluation by emergency room physician?will continue Rocephin and azithromycin initiated in the emergency room, and oxygen per routine protocol to maintain saturation greater than 90%. Due to concurrent NSTEMI and congestive heart failure we will hold albuterol at this time 2. NSTEMI?consult risk investigator Dr Montero. Continue to cycle cardiac enzymes, will add oxygen, nitroglycerin as needed for pain and aspirin. Pain seems to berelatively controlled at this time. Will make patient n.p.o. at midnight 3. Congestive heart failure?will get echocardiogram 4. Diabetes?will add sliding scale insulin and will adjust accordingly 5. Smoking?cessation strongly encouraged 6. DVT prophylaxis?low molecular weight heparin Charges/Coding Visit Charges Inpatient E&M: 67832 Init Hosp L2 02/22/252020 <Electronically signed by Denton Cook MD> Cosigner Signature (if applicable): CC: Dr. Jese Zheng DO; Dr. Denton Cook MD~ Signed [facility] Work Phone: Reason for referral (narrative)* Diagnostic Procedure Only (Routine) - Closed Specialty Diagnoses / Procedures Referred By Contac t Referred To Contact XR IMAGING Diagnoses Injury of left thumb, initial encounter Injury of left wrist, initial encounter Procedures XR HAND GENERAL 3V PA/LAT/OBL LEFT RADEX HAND MINIMUM 3 VIEWS Jese Zheng DO [address] [place] [address] Xr Imaging Referral ID Status Reason Start Date Expiration Date V isits Requested Visits Authorized [id number] Closed Auto-Generate d Referral 11/14/2021 12/14/2022 1 1 * Diagnostic Procedure Only (Routine) - Closed Specialty Diagnoses / Procedures Referred By Contac t Referred To Contact XR IMAGING Diagnoses Injury of left thumb, initial encounter Injury of left wrist, initial encounter Procedures XR WRIST GENERAL 3V PA/LAT/OBL LEFT RADEX WRIST COMPLETE MINIMUM 3 VIEWS Jese Zheng, DO [address] [place] [address] Xr Imaging Referral ID Status Reason Start Date Expiration Date V isits Requested Visits Authorized [id number] Closed Auto-Generate d Referral 11/14/2021 12/14/2022 1 1 [facility] for referral (narrative)* Diagnostic Procedure Only (Routine) - Closed Specialty Diagnoses / Procedures Referred By Contac t Referred To Contact XR IMAGING Diagnoses Ingrown left greater toenail Localized swelling of left foot Pain of left heel Injury of left heel, subsequent encounter Left foot pain Procedures XR FOOT GENERAL 3V AP/LAT/OBL LEFT RADEX FOOT COMPLETE MINIMUM 3 VIEWS Jese Zheng DO [address] [place] [address] Xr Imaging Referral ID Status Reason Start Date Expiration Date V isits Requested Visits Authorized [id number] Closed Auto-Generate d Referral 12/30/2021 01/29/2023 1 1 * MRI/CT (Urgent) - Additional Clinical Info Needed Specialty Diagnoses / Procedures Referred By Colleen t Referred To Contact CT IMAGING Diagnoses Ingrown left greater toenail Localized swelling of left foot Pain of left heel Injury of left heel, subsequent encounter Left foot pain Procedures CT FOOT WO IVCON LT CT LOWER EXTREMITY W/O CONTRAST MATERIAL Jese Zheng DO [address] [place] [address] Ct Imaging Referral ID Status Reason Start Date Expiration Date Visits Requested Visits Authorized [id number] Additional Clinical Info Needed Auto-Generat ed Referral 12/30/2021 01/29/2023 1 1 * Consult, Test, Treat (Routine) - Authorized Specialty Diagnoses / Procedures Referred By Contac t Referred To Contact Podiatry Diagnoses Ingrown left greater toenail Localized swelling of left foot Pain of left heel Injury of left heel, subsequent encounter Left foot pain Procedures CONSULT TO PODIATRY OFFICE/OUTPATIENT [facility] 60-74 MINUTES Jese Zheng DO [address] [place] [address] Referral ID Status Reason Start Date Expiration Date Visits Requested Visits Authorized [id number] Authorized PCP Requested Referral 12/30/2021 12/30/2022 1 1 [facility] for referral (narrative)* Outpatient Procedure (Routine) - Pending Review Specialty Diagnoses / Procedures Referred By Colleen coronado Referred To Contact [facility] Diagnoses Abdominal pain, unspecified abdominal location Change in bowel habits Procedures COLONOSCOPY DIAGNOSTIC COLONOSCOPY FLX DX W/COLLJ SPEC WHEN Brandy Sahni MD [address] [place] [address] [facility] [address] [address] Referral ID Status Reason Start Date Expiration Date Visits Requested Visits Authorized [id number] Pending Review Auto-Generat ed Referral 05/29/2022 05/29/2023 1 1 * Outpatient Procedure (Routine) - Pending Review Specialty Diagnoses / Procedures Referred By Colleen coronado Referred To Contact [facility] Diagnoses Abdominal pain, unspecified abdominal location Change in bowel habits Procedures EGD DIAGNOSTIC ESOPHAGOGASTRODUODENOSC OPY TRANSORAL DIAGNOSTIC Brandy Ramirez MD [address] [place] [address] [facility] [place] [address] [place] [address] Referral ID Status Reason Start Date Expiration Date Visits Requested Visits Authorized [id number] Pending Review Auto-Generat ed Referral 05/29/2022 05/29/2023 1 1 [facility] for referral (narrative)* Diagnostic Procedure Only (Routine) - Authorized Specialty Diagnoses / Procedures Referred By Contac t Referred To Contact [facility] Diagnoses Encounter for screening mammogram for malignant neoplasm of breast Procedures CHANTELL SCREENING W CAROLYN SCREENING DIGITAL BREAST TOMOSYNTHESIS BI SCREENING MAMMOGRAPHY BI 2-VIEW BREAST INC CAD Jese Zheng, DO [address] [place] [address] [facility] [address] [place] [address] Referral ID Status Reason Start Date Expiration Date Visits Requested Visits Authorized [id number] Authorized Auto-Generat ed Referral 07/24/2022 08/23/2023 1 1 * Diagnostic Procedure Only (Routine) - Pending Review Specialty Diagnoses / Procedures Referred By Colleen t Referred To Contact BR IMAG[facility] Diagnoses Encounter for screening mammogram for malignant neoplasm of breast Procedures CHANTELL SCREENING SCREENING MAMMOGRAPHY BI 2-VIEW BREAST INC CAD Jese Zheng, DO [address] [place] [address] [facility] [address] [place] [address] Referral ID Status Reason Start Date Expiration Date Visits Requested Visits Authorized [id number] Pending Review Auto-Generat ed Referral 07/24/2022 08/23/2023 1 1 [facility] for referral (narrative)* Diagnostic Procedure Only (Routine) - Authorized Specialty Diagnoses / Procedures Referred By Colleen coronado Referred To Contact MOLECULAR & FUNCTIONAL IMAGING Diagnoses Nausea Pain of upper abdomen Type 2 diabetes mellitus with peripheral neuropathy (HCC) RUQ pain Gastroesophageal reflux disease, unspecified whether esophagitis present Abdominal bloating Procedures NM HEPATOBILIARY W EF AND/OR RX HEPATOBIL SYST IMAG INC GB W/PHARMA INTERVENAnkita Osborn, JAXSON.PROFESSOR OF PHYSICS [address] [place] [address] Molecular & Functional Imaging [address] [id number] Referral ID Status Reason Start Date Expiration Date Visits Requested Visits Authorized [id number] Authorized Auto-Generat ed Referral 11/08/2022 12/08/2023 1 1 * Diagnostic Procedure Only (Urgent) - Closed Specialty Diagnoses / Procedures Referred By Colleen coronado Referred To Contact US IMAGING Diagnoses Nausea Pain of upper abdomen Type 2 diabetes mellitus with peripheral neuropathy (HCC) RUQ pain Gastroesophageal reflux disease, unspecified whether esophagitis present Abdominal bloating Procedures US ABD RIGHT UPPER QUADRANT US ABDOMINAL REAL TIME W/IMAGE LIMITED Ankita Green APRN.PROFESSOR OF PHYSICS [address] [place] [address] Us Imaging Referral ID Status Reason Start Date Expiration Date V isits Requested Visits Authorized [id number] Closed Auto-Generate d Referral 11/08/2022 12/08/2023 1 1 [facility] for referral (narrative)* Diagnostic Procedure Only (Routine) - Closed Specialty Diagnoses / Procedures Referred By Colleen coronado Referred To Contact MOLECULAR & FUNCTIONAL IMAGING Diagnoses Nausea Pain of upper abdomen Type 2 diabetes mellitus with peripheral neuropathy (HCC) RUQ pain Gastroesophageal reflux disease, unspecified whether esophagitis present Abdominal bloating Procedures NM HEPATOBILIARY W EF AND/OR RX HEPATOBIL SYST IMAG INC GB W/PHARMA INTERVENJ Ankita Green APRN.PROFESSOR OF PHYSICS [address] [place] [address] Molecular & Functional Imaging [address] [place] [address] Referral ID Status Reason Start Date Expiration Date V isits Requested Visits Authorized [id number] Closed Auto-Generate d Referral 11/08/2022 12/08/2023 1 1 [facility] for referral (narrative)* Diagnostic Procedure Only (Routine) - Closed Specialty Diagnoses / Procedures Referred By Colleen t Referred To Contact BR IMAGING Diagnoses Encounter for screening mammogram for malignant neoplasm of breast Procedures CHANTELL SCREENING W CAROLYN SCREENING DIGITAL BREAST TOMOSYNTHESIS BI SCREENING MAMMOGRAPHY BI 2-VIEW BREAST INC CAD Jese Zheng DO [address] [place] [address] Br Imaging [address] [place] [address] Referral ID Status Reason Start Date Expiration Date V isits Requested Visits Authorized [id number] Closed Auto-Generate d Referral 07/24/2022 08/23/2023 1 1 [facility] for referral (narrative)* Diagnostic Procedure Only (Urgent) - Closed Specialty Diagnoses / Procedures Referred By Leanneac t Referred To Contact US IMAGING Diagnoses Nausea Pain of upper abdomen Type 2 diabetes mellitus with peripheral neuropathy (HCC) RUQ pain Gastroesophageal reflux disease, unspecified whether esophagitis present Abdominal bloating Procedures US ABD RIGHT UPPER QUADRANT US ABDOMINAL REAL TIME W/IMAGE LIMITED Ankita Green APRN.CNP [address] [place] [address] [place] [address] Referral ID Status Reason Start Date Expiration Date V isits Requested Visits Authorized [id number] Closed Auto-Generate d Referral 11/08/2022 12/08/2023 1 1 [facility] for referral (narrative)* Diagnostic Procedure Only (Urgent) - Outside PCP Specialty Diagnoses / Procedures Referred By Colleen t Referred To Contact [facility] Diagnoses Right leg swelling Right calf pain Procedures US LEG VEIN DVT UNL VAS LAB DUP-SCAN XTR VEINS UNILATERAL/LIMITED STUDY Jese Zheng DO [address] [place] [address] [facility] [place] [address] [place] [address] Referral ID Status Reason Start Date Expiration Date Visits Requested Visits Authorized [id number] Outside PCP Auto-Genera laureen Referral Patient Cleared - Admin/Chair man/Directo r advise to proceed or did not respond 05/27/2023 05/26/2024 1 1 [facility] for referral (narrative)* Diagnostic Procedure Only (Urgent) - Outside PCP Specialty Diagnoses / Procedures Referred By Colleen t Referred To Contact [facility] [place] Diagnoses Right leg swelling Right calf pain Procedures US LEG VEIN DVT UNL VAS LAB DUP-SCAN XTR VEINS UNILATERAL/LIMITED STUDY Jese Zheng DO [address] [place] [address] [address] Referral ID Status Reason Start Date Expiration Date Visits Requested Visits Authorized [id number] Outside PCP Auto-Genera laureen Referral Patient Cleared - Admin/Chair man/Directo r advise to proceed or did not respond 05/27/2023 05/26/2024 1 1 [facility] for referral (narrative)* Diagnostic Procedure Only (Routine) - Pending Review Specialty Diagnoses / Procedures Referred By Colleen coronado Referred To Contact BR IMAGING Diagnoses Encounter for screening mammogram for breast cancer Procedures CHANTELL SCREENING W CAROLYN SCREENING DIGITAL BREAST TOMOSYNTHESIS BI SCREENING MAMMOGRAPHY BI 2-VIEW BREAST INC CAD Jese Zheng DO [address] [place] [address] Br Imaging [address] [place] [id number] Referral ID Status Reason Start Date Expiration Date Visits Requested Visits Authorized [id number] Pending Review Auto-Generat ed Referral 10/09/2023 11/07/2024 1 1 [facility] for referral (narrative)* Outpatient Procedure (Routine) - Authorized Specialty Diagnoses / Procedures Referred By Colleen t Referred To Contact [facility] Diagnoses Carotid atherosclerosis, bilateral Procedures US CAROTID ARTERIES [place] VAS LAB DUPLEX SCAN EXTRACRANIAL ART COMPL BI STUDY Jese Zheng DO [address] [place] [address] [facility] [address] [place] [address] Referral ID Status Reason Start Date Expiration Date Visits Requested Visits Authorized [id number] Authorized Auto-Generat ed Referral 11/27/2023 11/26/2024 1 1 [facility] for referral (narrative)* Diagnostic Procedure Only (Routine) - Closed Specialty Diagnoses / Procedures Referred By Colleen t Referred To Contact BR IMAGING Diagnoses Encounter for screening mammogram for breast cancer Procedures CHANTELL SCREENING W CAROLYN SCREENING DIGITAL BREAST TOMOSYNTHESIS BI SCREENING MAMMOGRAPHY BI 2-VIEW BREAST INC CAD Jese Zheng, DO [address] [place] [address] Br Imaging [address] [place] [address] Referral ID Status Reason Start Date Expiration Date V isits Requested Visits Authorized [id number] Closed Auto-Generate d Referral 10/09/2023 11/07/2024 1 1 [facility] for referral (narrative)* Diagnostic Procedure Only (Routine) - Closed Specialty Diagnoses / Procedures Referred By Colleen t Referred To Contact XR IMAGING Diagnoses Injury of left thumb, initial encounter Injury of left wrist, initial encounter Procedures XR HAND GENERAL 3V PA/LAT/OBL LEFT RADEX HAND MINIMUM 3 VIEWS Jese Zheng DO [address] [place] [address] [place] [address] Referral ID Status Reason Start Date Expiration Date V isits Requested Visits Authorized [id number] Closed Auto-Generate d Referral 11/14/2021 12/14/2022 1 1 * Diagnostic Procedure Only (Routine) - Closed Specialty Diagnoses / Procedures Referred By Contac t Referred To Contact XR IMAGING Diagnoses Injury of left thumb, initial encounter Injury of left wrist, initial encounter Procedures XR WRIST GENERAL 3V PA/LAT/OBL LEFT RADEX WRIST COMPLETE MINIMUM 3 VIEWS Jese Zheng DO [address] [place] [address] [place] [address] Referral ID Status Reason Start Date Expiration Date V isits Requested Visits Authorized [id number] Closed Auto-Generate d Referral 11/14/2021 12/14/2022 1 1 [facility] for referral (narrative)* Diagnostic Procedure Only (Routine) - Closed Specialty Diagnoses / Procedures Referred By Contac t Referred To Contact XR IMAGING Diagnoses Ingrown left greater toenail Localized swelling of left foot Pain of left heel Injury of left heel, subsequent encounter Left foot pain Procedures XR FOOT GENERAL 3V AP/LAT/OBL LEFT RADEX FOOT COMPLETE MINIMUM 3 VIEWS Jese Zheng DO [address] [place] [address] [place] [address] Referral ID Status Reason Start Date Expiration Date V isits Requested Visits Authorized [id number] Closed Auto-Generate d Referral 12/30/2021 01/29/2023 1 1 [facility] for referral (narrative)* Diagnostic Procedure Only (Urgent) - Closed Specialty Diagnoses / Procedures Referred By Contac t Referred To Contact XR IMAGING Diagnoses Generalized abdominal pain Procedures XR ABDOMEN 2V ROUTINE SUPINE W UPRIGHT/DECUB/CTL RADIOLOGIC EXAM ABDOMEN 2 VIEWS Tamara Bauer APRN.CNP, DNP [address] [place] [address] [place] [address] Referral ID Status Reason Start Date Expiration Date V isits Requested Visits Authorized [id number] Closed Auto-Generate d Referral 04/10/2021 05/10/2022 1 1 [facility] for referral (narrative)No reason for referral information availableWParkview Health Work Phone: Reason for visit Narrative* Diagnostic Procedure Only (Routine) - Closed Specialty Diagnoses / Procedures Referred By Contac t Referred To Contact BR IMAGING Diagnoses Encounter for screening mammogram for malignant neoplasm of breast Procedures CHANTELL SCREENING W CAROLYN SCREENING DIGITAL BREAST TOMOSYNTHESIS BI SCREENING MAMMOGRAPHY BI 2-VIEW BREAST INC CAD Jese Zheng, DO [address] [place] [address] Br Imaging [address] [place] [address] Referral ID Status Reason Start Date Expiration Date V isits Requested Visits Authorized [id number] Closed Auto-Generate d Referral 07/24/2022 08/23/2023 1 1 [facility] for visit Narrative* Diagnostic Procedure Only (Urgent) - Outside PCP Specialty Diagnoses / Procedures Referred By Colleen coronado Referred To Contact [facility] Diagnoses Right leg swelling Right calf pain Procedures US LEG VEIN DVT UNL VAS LAB DUP-SCAN XTR VEINS UNILATERAL/LIMITED STUDY Jese Zheng, DO [address] [place] [address] [facility] [address] [address] Referral ID Status Reason Start Date Expiration Date Visits Requested Visits Authorized [id number] Outside PCP Auto-Genera laureen Referral Patient Cleared - Admin/Chair man/Directo r advise to proceed or did not respond 05/27/2023 05/26/2024 1 1 [facility] for visit Narrative* Diagnostic Procedure Only (Routine) - Closed Specialty Diagnoses / Procedures Referred By Colleen coronado Referred To Contact BR IMAGING Diagnoses Encounter for screening mammogram for breast cancer Procedures CHANTELL SCREENING W CAROLYN SCREENING DIGITAL BREAST TOMOSYNTHESIS BI SCREENING MAMMOGRAPHY BI 2-VIEW BREAST INC CAD Jese Zheng, DO [address] [place] [address] Br Imaging [address] [place] [address] Referral ID Status Reason Start Date Expiration Date V isits Requested Visits Authorized [id number] Closed Auto-Generate d Referral 10/09/2023 11/07/2024 1 1 [facility] for visit Narrative* Diagnostic Procedure Only (Routine) - Closed Specialty Diagnoses / Procedures Referred By Colleen t Referred To Contact XR IMAGING Diagnoses Injury of left thumb, initial encounter Injury of left wrist, initial encounter Procedures XR HAND GENERAL 3V PA/LAT/OBL LEFT RADEX HAND MINIMUM 3 VIEWS Jese Zheng, DO [address] [place] [address] [place] [address] Referral ID Status Reason Start Date Expiration Date V isits Requested Visits Authorized [id number] Closed Auto-Generate d Referral 11/14/2021 12/14/2022 1 1 [facility] for visit Narrative* Diagnostic Procedure Only (Routine) - Closed Specialty Diagnoses / Procedures Referred By Contac t Referred To Contact XR IMAGING Diagnoses Ingrown left greater toenail Localized swelling of left foot Pain of left heel Injury of left heel, subsequent encounter Left foot pain Procedures XR FOOT GENERAL 3V AP/LAT/OBL LEFT RADEX FOOT COMPLETE MINIMUM 3 VIEWS Jese Zheng, DO [address] [place] [address] [place] [address] Referral ID Status Reason Start Date Expiration Date V isits Requested Visits Authorized [id number] Closed Auto-Generate d Referral 12/30/2021 01/29/2023 1 1 [facility] for visit Narrative* Diagnostic Procedure Only (Urgent) - Closed Specialty Diagnoses / Procedures Referred By Contac t Referred To Contact XR IMAGING Diagnoses Generalized abdominal pain Procedures XR ABDOMEN 2V ROUTINE SUPINE W UPRIGHT/DECUB/CTL RADIOLOGIC EXAM ABDOMEN 2 VIEWS Tamara Bauer, JAXSON.PROFESSOR OF PHYSICS, DNP [address] [place] [id number] [place] [address] Referral ID Status Reason Start Date Expiration Date V isits Requested Visits Authorized [id number] Closed Auto-Generate d Referral 04/10/2021 05/10/2022 1 1 [facility] for visit Narrative* Diagnostic Procedure Only (Routine) - Closed Specialty Diagnoses / Procedures Referred By Contac t Referred To Contact XR IMAGING Diagnoses Right hand pain Localized swelling of finger of right hand Procedures XR HAND GENERAL 3V PA/LAT/OBL RIGHT RADEX HAND MINIMUM 3 VIEWS Jese Zheng, DO [address] [place] [address] [place] [address] Referral ID Status Reason Start Date Expiration Date V isits Requested Visits Authorized [id number] Closed Auto-Generate d Referral 06/23/2024 07/23/2025 1 1 [facility] Advance Directives No Advanced Directives Records FoundDocuments on File Type Date Recorded 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 Advance Directive(s) 05/24/2017 8:44 AM Advance Directive(s) 05/24/2017 1:50 PM Advance Directive(s) 05/24/2017 1:51 PM Advance Directive(s) 01/06/2016 1:17 PM Documents on File Type Date Recorded 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 Advance Directive(s) 05/24/2017 8:44 AM Advance Directive(s) 05/24/2017 1:50 PM Advance Directive(s) 05/24/2017 1:51 PM Advance Directive(s) 01/06/2016 1:17 PM Documents on File Type Date Recorded 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 No February 22, 2025 6:09pm Advance Directives No January 19 9:36am Advance Directive Response Recorded Date/ Time Do you have a Healthcare Power of Reliability Technicians? No February 22, 2025 9:44pm Advance Directives No January 19 9:36am Reason for Referral Specialty Diagnoses / Procedures Referred By Colleen coronado Referred To Contact CT IMAGING Diagnoses Adverse effect of treatment, subsequent encounter Procedures CT ABD/PEL WO IVCON CT ABD & PELVIS W/O CONTRAST Brandy Ramirez MD [address] [place] [address] Ct Imaging Referral ID Status Reason Start Date Expiration Date V isits Requested Visits Authorized [id number] Closed Auto-Generate d Referral 10/13/2021 12/12/2021 2 2 Specialty Diagnoses / Procedures Referred By Colleen coronado Referred To Contact Orthopedics Diagnoses Injury of left thumb, initial encounter Injury of left wrist, initial encounter Procedures CONSULT TO ORTHOPAEDICS OFFICE/OUTPATIENT NEW HIGH MDM 60-74 MINUTES Corrine Hartman, TILE MOLDER HAND.PROFESSOR OF PHYSICS [address] [place] [address] Referral ID Status Reason Start Date Expiration Date Visits Requested Visits Authorized [id number] Authorized PCP Requested Referral 11/20/2021 11/20/2022 1 1 Specialty Diagnoses / Procedures Referred By Contac t Referred To Contact Diagnoses Uncontrolled type 2 diabetes mellitus with hyperglycemia (HCC) Procedures CONSULT TO DIABETES EDUCATION OFFICE/OUTPATIENT [facility] 60-74 MINUTES Jese Zheng, DO [address] [place] [address] Referral ID Status Reason Start Date Expiration Date Visits Requested Visits Authorized [id number] Authorized PCP Requested Referral 12/22/2021 12/22/2022 1 1 Specialty Diagnoses / Procedures Referred By Contac t Referred To Contact Jese Zheng, DO [address] [place] [address] Referral ID Status Reason Start Date Expiration Date V isits Requested Visits Authorized [id number] Pending Review 1 1 Specialty Diagnoses / Procedures Referred By Contac t Referred To Contact CT IMAGING Diagnoses Nausea Right flank pain RUQ pain Chronic RLQ pain Nausea and vomiting, unspecified vomiting type Procedures CT ABD/PEL WO IVCON CT ABD & PELVIS W/O CONTRAST Ankita Green, TILE MOLDER HAND.PROFESSOR OF PHYSICS [address] [place] [address] Ct Imaging Referral ID Status Reason Start Date Expiration Date Visits Requested Visits Authorized [id number] Pending Review Auto-Genera laureen Referral Patient Cleared - Admin/Chair man/Directo r advise to proceed 2 06/20/2023 2 2 Referral ID Status Reason Start Date Expiration Date Visits Re quested Visits Authorized [id number] Closed 1 1 Referral ID Status Reason Start Date Expiration Date Visits Re quested Visits Authorized [id number] Closed 1 1 Referral ID Status Reason Start Date Expiration Date Visits Re quested Visits Authorized [id number] Closed 1 1 Specialty Diagnoses / Procedures Referred By Contac t Referred To Contact CT IMAGING Diagnoses SOB (shortness of breath) Wheezing Pulmonary nodule Procedures CT CHEST WO IVCON DIAGNOSTIC COMPUTED TOMOGRAPHY THORAX W/O CNTRST Jese Zheng L, DO [address] [place] [address] Ct Imaging Referral ID Status Reason Start Date Expiration Date Visits Requested Visits Authorized [id number] Pending Review Auto-Generat ed Referral 02/19/2023 03/20/2024 1 1 Specialty Diagnoses / Procedures Referred By Contac t Referred To Contact CT IMAGING Diagnoses SOB (shortness of breath) Wheezing Pulmonary nodule Procedures CT CHEST WO IVCON DIAGNOSTIC COMPUTED TOMOGRAPHY THORAX W/O CNTRST Jese Zheng L, DO [address] [place] [address] [place] [address] Referral ID Status Reason Start Date Expiration Date V isits Requested Visits Authorized [id number] Denied Auto-Generat ed Referral Patient Cleared - Admin/Chairm an/Director advise to proceed or did not respond 02/19/2023 03/20/2024 1 0 Specialty Diagnoses / Procedures Referred By Contac t Referred To Contact CT IMAGING Diagnoses Nausea Right flank pain RUQ pain Chronic RLQ pain Nausea and vomiting, unspecified vomiting type Procedures CT ABD/PEL WO IVCON CT ABD & PELVIS W/O CONTRAST Ankita Green, JAXSON.PROFESSOR OF PHYSICS [address] [place] [address] [place] [address] Referral ID Status Reason Start Date Expiration Date V isits Requested Visits Authorized [id number] Denied Auto-Generat ed Referral Patient Cleared - Admin/Chairm an/Director advise to proceed or did not respond 05/21/2022 07/20/2022 2 0 Referral ID Status Reason Start Date Expiration Date V isits Requested Visits Authorized [id number] Pending Review 1 1 Referral ID Status Reason Start Date Expiration Date V isits Requested Visits Authorized [id number] Authorized 1 1 Specialty Diagnoses / Procedures Referred By Contac t Referred To Contact Orthopedics Diagnoses Right hand pain Procedures CONSULT TO ORTHOPAEDICS OFFICE/OUTPATIENT [facility] MDM 60 MINUTES Jese Zheng L, DO [address] [place] [address] Referral ID Status Reason Start Date Expiration Date V isits Requested Visits Authorized [id number] Closed PCP Requested Referral 07/17/2024 07/17/2025 1 1 Medications Administered Section Inactive Administered Medications - up to 3 most recent administrations Medication Order MAR Action Action Date Dose Rate Site keTORolac 60 mg injection (TORADOL) 60 mg, INTRAMUSCULAR, ONCE, 1 dose, On 05/21/22 at 1300, Ketorolac (Toradol) is indicated for the short-term (up to 5 days) management of moderately severe acute pain. Continuation of ketorolac (Toradol) beyond 5 days increases the risk of developing serious adverse events. Please verify the duration of therapy for ketorolac (Toradol)., If ordered PRN for pain, patient/guardian may elect to receive this medication for higher pain levels INSTEAD of the opioid, if preferred: Yes Given 05/21/2022 1:06 PM EDT 60 mg Buttocks, Left Summary Purpose Family History No Family History Records Found Relationship Condition Age at Onset Recorded Date/T saeed uncle Malignant neoplasm Unknown sister Diabetes mellitus Unknown Chief Complaint and Reason for Visit Chief Complaint HEPATIC STEATOSIS Chief Complaint Admit Date Chest Pain February 22, 2025 8:0 9pm PNEUMONIA, NSTEMI, CONGESTIVE HEART FAIL URE February 22, 2025 8:21pm Reason for Visit Admit Date Acute CHF February 22, 2025 8:2 1pm Acute cough February 22, 2025 8:2 1pm Chest pain February 22, 2025 8:2 1pm Elevated troponin February 22, 2025 8:2 1pm Hypoxemia February 22, 2025 8:2 1pm Chief Complaint Admit Date Chest Pain February 22, 2025 8:0 9pm PNEUMONIA, NSTEMI, CONGESTIVE HEART FAIL URE February 22, 2025 8:21pm PNEUMONIA, NSTEMI, CONGESTIVE HEART FAIL URE February 23, 2025 7:43am PNEUMONIA, NSTEMI, CONGESTIVE HEART FAIL URE February 23, 2025 7:59am PNEUMONIA, NSTEMI, CONGESTIVE HEART FAIL URE February 24, 2025 7:41am PNEUMONIA, NSTEMI, CONGESTIVE HEART FAIL URE February 24, 2025 11:55am Reason for Visit Admit Date Acute CHF February 22, 2025 8:2 1pm Acute cough February 22, 2025 8:2 1pm Altered mental state February 22, 2025 8: 21pm Chest pain February 22, 2025 8:2 1pm Elevated troponin February 22, 2025 8:2 1pm Flank pain February 22, 2025 8:2 1pm Hypoxemia February 22, 2025 8:2 1pm Hypoxia February 22, 2025 8:2 1pm HTN (hypertension) February 22, 2025 8:2 1pm Health Concerns Infection Onset Date Last Indicated Resolved Time COVID-19 Confirmed 04/05/2023 04/05/2023 Additional Source Comments Source Comments (unrecognize d section and content) In the event this informatio n is protected by the Federal Confidentiality of Alcohol and Drug Abuse Patient Records regulations: The Federal rules restrict any use of the information to criminally investigate or prosecute any alcohol or drug abuse patient.[facility] the event this information is protected by the Federal Confidentiality of Alcohol and Drug Abuse Patient Records regulations: The Federal rules restrict any use of the information to criminally investigate or prosecute any alcohol or drug abuse patient.[facility] HospitalIn the event this information is protected by the Federal Confidentiality of Alcohol and Drug Abuse Patient Records regulations: The Federal rules restrict any use of the information to criminally investigate or prosecute any alcohol or drug abuse patient.[facility] Hospital[facility] the event this information is protected by the Federal Confidentiality of Alcohol and Drug Abuse Patient Records regulations: The Federal rules restrict any use of the information to criminally investigate or prosecute any alcohol or drug abuse patient.[facility] HospitalIn the event this information is protected by the Federal Confidentiality of Alcohol and Drug Abuse Patient Records regulations: The Federal rules restrict any use of the information to criminally investigate or prosecute any alcohol or drug abuse patient.[facility] HospitalIn the event this information is protected by the Federal Confidentiality of Alcohol and Drug Abuse Patient Records regulations: The Federal rules restrict any use of the information to criminally investigate or prosecute any alcohol or drug abuse patient.[facility] HospitalIn the event this information is protected by the Federal Confidentiality of Alcohol and Drug Abuse Patient Records regulations: The Federal rules restrict any use of the information to criminally investigate or prosecute any alcohol or drug abuse patient.[facility] Hospital[facility] the event this information is protected by the Federal Confidentiality of Alcohol and Drug Abuse Patient Records regulations: The Federal rules restrict any use of the information to criminally investigate or prosecute any alcohol or drug abuse patient.[facility] HospitalIn the event this information is protected by the Federal Confidentiality of Alcohol and Drug Abuse Patient Records regulations: The Federal rules restrict any use of the information to criminally investigate or prosecute any alcohol or drug abuse patient.[facility] HospitalIn the event this information is protected by the Federal Confidentiality of Alcohol and Drug Abuse Patient Records regulations: The Federal rules restrict any use of the information to criminally investigate or prosecute any alcohol or drug abuse patient.[facility] HospitalIn the event this information is protected by the Federal Confidentiality of Alcohol and Drug Abuse Patient Records regulations: The Federal rules restrict any use of the information to criminally investigate or prosecute any alcohol or drug abuse patient.[facility] HospitalIn the event this information is protected by the Federal Confidentiality of Alcohol and Drug Abuse Patient Records regulations: The Federal rules restrict any use of the information to criminally investigate or prosecute any alcohol or drug abuse patient.[facility] HospitalIn the event this information is protected by the Federal Confidentiality of Alcohol and Drug Abuse Patient Records regulations: The Federal rules restrict any use of the information to criminally investigate or prosecute any alcohol or drug abuse patient.[facility] HospitalIn the event this information is protected by the Federal Confidentiality of Alcohol and Drug Abuse Patient Records regulations: The Federal rules restrict any use of the information to criminally investigate or prosecute any alcohol or drug abuse patient.[facility] HospitalIn the event this information is protected by the Federal Confidentiality of Alcohol and Drug Abuse Patient Records regulations: The Federal rules restrict any use of the information to criminally investigate or prosecute any alcohol or drug abuse patient.[facility] HospitalIn the event this information is protected by the Federal Confidentiality of Alcohol and Drug Abuse Patient Records regulations: The Federal rules restrict any use of the information to criminally investigate or prosecute any alcohol or drug abuse patient.[facility] HospitalIn the event this information is protected by the Federal Confidentiality of Alcohol and Drug Abuse Patient Records regulations: The Federal rules restrict any use of the information to criminally investigate or prosecute any alcohol or drug abuse patient.[facility] HospitalIn the event this information is protected by the Federal Confidentiality of Alcohol and Drug Abuse Patient Records regulations: The Federal rules restrict any use of the information to criminally investigate or prosecute any alcohol or drug abuse patient.[facility] HospitalIn the event this information is protected by the Federal Confidentiality of Alcohol and Drug Abuse Patient Records regulations: The Federal rules restrict any use of the information to criminally investigate or prosecute any alcohol or drug abuse patient.[facility] HospitalIn the event this information is protected by the Federal Confidentiality of Alcohol and Drug Abuse Patient Records regulations: The Federal rules restrict any use of the information to criminally investigate or prosecute any alcohol or drug abuse patient.[facility] HospitalIn the event this information is protected by the Federal Confidentiality of Alcohol and Drug Abuse Patient Records regulations: The Federal rules restrict any use of the information to criminally investigate or prosecute any alcohol or drug abuse patient.[facility] HospitalIn the event this information is protected by the Federal Confidentiality of Alcohol and Drug Abuse Patient Records regulations: The Federal rules restrict any use of the information to criminally investigate or prosecute any alcohol or drug abuse patient.[facility] HospitalIn the event this information is protected by the Federal Confidentiality of Alcohol and Drug Abuse Patient Records regulations: The Federal rules restrict any use of the information to criminally investigate or prosecute any alcohol or drug abuse patient.[facility] HospitalIn the event this information is protected by the Federal Confidentiality of Alcohol and Drug Abuse Patient Records regulations: The Federal rules restrict any use of the information to criminally investigate or prosecute any alcohol or drug abuse patient.[facility] HospitalIn the event this information is protected by the Federal Confidentiality of Alcohol and Drug Abuse Patient Records regulations: The Federal rules restrict any use of the information to criminally investigate or prosecute any alcohol or drug abuse patient.[facility] HospitalIn the event this information is protected by the Federal Confidentiality of Alcohol and Drug Abuse Patient Records regulations: The Federal rules restrict any use of the information to criminally investigate or prosecute any alcohol or drug abuse patient.[facility] HospitalIn the event this information is protected by the Federal Confidentiality of Alcohol and Drug Abuse Patient Records regulations: The Federal rules restrict any use of the information to criminally investigate or prosecute any alcohol or drug abuse patient.[facility] HospitalIn the event this information is protected by the Federal Confidentiality of Alcohol and Drug Abuse Patient Records regulations: The Federal rules restrict any use of the information to criminally investigate or prosecute any alcohol or drug abuse patient.[facility] HospitalIn the event this information is protected by the Federal Confidentiality of Alcohol and Drug Abuse Patient Records regulations: The Federal rules restrict any use of the information to criminally investigate or prosecute any alcohol or drug abuse patient.[facility] HospitalIn the event this information is protected by the Federal Confidentiality of Alcohol and Drug Abuse Patient Records regulations: The Federal rules restrict any use of the information to criminally investigate or prosecute any alcohol or drug abuse patient.[facility]In the event this information is protected by the Federal Confidentiality of Alcohol and Drug Abuse Patient Records regulations: The Federal rules restrict any use of the information to criminally investigate or prosecute any alcohol or drug abuse patient.[facility] HospitalIn the event this information is protected by the Federal Confidentiality of Alcohol and Drug Abuse Patient Records regulations: The Federal rules restrict any use of the information to criminally investigate or prosecute any alcohol or drug abuse patient.[facility] HospitalIn the event this information is protected by the Federal Confidentiality of Alcohol and Drug Abuse Patient Records regulations: The Federal rules restrict any use of the information to criminally investigate or prosecute any alcohol or drug abuse patient.[facility] HospitalIn the event this information is protected by the Federal Confidentiality of Alcohol and Drug Abuse Patient Records regulations: The Federal rules restrict any use of the information to criminally investigate or prosecute any alcohol or drug abuse patient.[facility] HospitalIn the event this information is protected by the Federal Confidentiality of Alcohol and Drug Abuse Patient Records regulations: The Federal rules restrict any use of the information to criminally investigate or prosecute any alcohol or drug abuse patient.[facility] HospitalIn the event this information is protected by the Federal Confidentiality of Alcohol and Drug Abuse Patient Records regulations: The Federal rules restrict any use of the information to criminally investigate or prosecute any alcohol or drug abuse patient.[facility] HospitalIn the event this information is protected by the Federal Confidentiality of Alcohol and Drug Abuse Patient Records regulations: The Federal rules restrict any use of the information to criminally investigate or prosecute any alcohol or drug abuse patient.[facility] HospitalIn the event this information is protected by the Federal Confidentiality of Alcohol and Drug Abuse Patient Records regulations: The Federal rules restrict any use of the information to criminally investigate or prosecute any alcohol or drug abuse patient.[facility] HospitalIn the event this information is protected by the Federal Confidentiality of Alcohol and Drug Abuse Patient Records regulations: The Federal rules restrict any use of the information to criminally investigate or prosecute any alcohol or drug abuse patient.[facility] HospitalIn the event this information is protected by the Federal Confidentiality of Alcohol and Drug Abuse Patient Records regulations: The Federal rules restrict any use of the information to criminally investigate or prosecute any alcohol or drug abuse patient.[facility] HospitalIn the event this information is protected by the Federal Confidentiality of Alcohol and Drug Abuse Patient Records regulations: The Federal rules restrict any use of the information to criminally investigate or prosecute any alcohol or drug abuse patient.[facility] HospitalIn the event this information is protected by the Federal Confidentiality of Alcohol and Drug Abuse Patient Records regulations: The Federal rules restrict any use of the information to criminally investigate or prosecute any alcohol or drug abuse patient.[facility] HospitalIn the event this information is protected by the Federal Confidentiality of Alcohol and Drug Abuse Patient Records regulations: The Federal rules restrict any use of the information to criminally investigate or prosecute any alcohol or drug abuse patient.[facility] HospitalIn the event this information is protected by the Federal Confidentiality of Alcohol and Drug Abuse Patient Records regulations: The Federal rules restrict any use of the information to criminally investigate or prosecute any alcohol or drug abuse patient.[facility] HospitalIn the event this information is protected by the Federal Confidentiality of Alcohol and Drug Abuse Patient Records regulations: The Federal rules restrict any use of the information to criminally investigate or prosecute any alcohol or drug abuse patient.[facility] HospitalIn the event this information is protected by the Federal Confidentiality of Alcohol and Drug Abuse Patient Records regulations: The Federal rules restrict any use of the information to criminally investigate or prosecute any alcohol or drug abuse patient.[facility] HospitalIn the event this information is protected by the Federal Confidentiality of Alcohol and Drug Abuse Patient Records regulations: The Federal rules restrict any use of the information to criminally investigate or prosecute any alcohol or drug abuse patient.[facility] HospitalIn the event this information is protected by the Federal Confidentiality of Alcohol and Drug Abuse Patient Records regulations: The Federal rules restrict any use of the information to criminally investigate or prosecute any alcohol or drug abuse patient.[facility] HospitalIn the event this information is protected by the Federal Confidentiality of Alcohol and Drug Abuse Patient Records regulations: The Federal rules restrict any use of the information to criminally investigate or prosecute any alcohol or drug abuse patient.[facility] HospitalIn the event this information is protected by the Federal Confidentiality of Alcohol and Drug Abuse Patient Records regulations: The Federal rules restrict any use of the information to criminally investigate or prosecute any alcohol or drug abuse patient.[facility] HospitalIn the event this information is protected by the Federal Confidentiality of Alcohol and Drug Abuse Patient Records regulations: The Federal rules restrict any use of the information to criminally investigate or prosecute any alcohol or drug abuse patient.[facility] HospitalIn the event this information is protected by the Federal Confidentiality of Alcohol and Drug Abuse Patient Records regulations: The Federal rules restrict any use of the information to criminally investigate or prosecute any alcohol or drug abuse patient.[facility] HospitalIn the event this information is protected by the Federal Confidentiality of Alcohol and Drug Abuse Patient Records regulations: The Federal rules restrict any use of the information to criminally investigate or prosecute any alcohol or drug abuse patient.[facility] HospitalIn the event this information is protected by the Federal Confidentiality of Alcohol and Drug Abuse Patient Records regulations: The Federal rules restrict any use of the information to criminally investigate or prosecute any alcohol or drug abuse patient.[facility] HospitalIn the event this information is protected by the Federal Confidentiality of Alcohol and Drug Abuse Patient Records regulations: The Federal rules restrict any use of the information to criminally investigate or prosecute any alcohol or drug abuse patient.[facility] HospitalIn the event this information is protected by the Federal Confidentiality of Alcohol and Drug Abuse Patient Records regulations: The Federal rules restrict any use of the information to criminally investigate or prosecute any alcohol or drug abuse patient.[facility] HospitalIn the event this information is protected by the Federal Confidentiality of Alcohol and Drug Abuse Patient Records regulations: The Federal rules restrict any use of the information to criminally investigate or prosecute any alcohol or drug abuse patient.[facility] HospitalIn the event this information is protected by the Federal Confidentiality of Alcohol and Drug Abuse Patient Records regulations: The Federal rules restrict any use of the information to criminally investigate or prosecute any alcohol or drug abuse patient.[facility] HospitalIn the event this information is protected by the Federal Confidentiality of Alcohol and Drug Abuse Patient Records regulations: The Federal rules restrict any use of the information to criminally investigate or prosecute any alcohol or drug abuse patient.[facility] HospitalIn the event this information is protected by the Federal Confidentiality of Alcohol and Drug Abuse Patient Records regulations: The Federal rules restrict any use of the information to criminally investigate or prosecute any alcohol or drug abuse patient.[facility] HospitalIn the event this information is protected by the Federal Confidentiality of Alcohol and Drug Abuse Patient Records regulations: The Federal rules restrict any use of the information to criminally investigate or prosecute any alcohol or drug abuse patient.[facility] HospitalIn the event this information is protected by the Federal Confidentiality of Alcohol and Drug Abuse Patient Records regulations: The Federal rules restrict any use of the information to criminally investigate or prosecute any alcohol or drug abuse patient.[facility] HospitalIn the event this information is protected by the Federal Confidentiality of Alcohol and Drug Abuse Patient Records regulations: The Federal rules restrict any use of the information to criminally investigate or prosecute any alcohol or drug abuse patient.[facility] HospitalIn the event this information is protected by the Federal Confidentiality of Alcohol and Drug Abuse Patient Records regulations: The Federal rules restrict any use of the information to criminally investigate or prosecute any alcohol or drug abuse patient.[facility] HospitalIn the event this information is protected by the Federal Confidentiality of Alcohol and Drug Abuse Patient Records regulations: The Federal rules restrict any use of the information to criminally investigate or prosecute any alcohol or drug abuse patient.[facility] HospitalIn the event this information is protected by the Federal Confidentiality of Alcohol and Drug Abuse Patient Records regulations: The Federal rules restrict any use of the information to criminally investigate or prosecute any alcohol or drug abuse patient.[facility] HospitalIn the event this information is protected by the Federal Confidentiality of Alcohol and Drug Abuse Patient Records regulations: The Federal rules restrict any use of the information to criminally investigate or prosecute any alcohol or drug abuse patient.[facility] HospitalIn the event this information is protected by the Federal Confidentiality of Alcohol and Drug Abuse Patient Records regulations: The Federal rules restrict any use of the information to criminally investigate or prosecute any alcohol or drug abuse patient.[facility] HospitalIn the event this information is protected by the Federal Confidentiality of Alcohol and Drug Abuse Patient Records regulations: The Federal rules restrict any use of the information to criminally investigate or prosecute any alcohol or drug abuse patient.[facility] HospitalIn the event this information is protected by the Federal Confidentiality of Alcohol and Drug Abuse Patient Records regulations: The Federal rules restrict any use of the information to criminally investigate or prosecute any alcohol or drug abuse patient.[facility] HospitalIn the event this information is protected by the Federal Confidentiality of Alcohol and Drug Abuse Patient Records regulations: The Federal rules restrict any use of the information to criminally investigate or prosecute any alcohol or drug abuse patient.[facility] HospitalIn the event this information is protected by the Federal Confidentiality of Alcohol and Drug Abuse Patient Records regulations: The Federal rules restrict any use of the information to criminally investigate or prosecute any alcohol or drug abuse patient.[facility] HospitalIn the event this information is protected by the Federal Confidentiality of Alcohol and Drug Abuse Patient Records regulations: The Federal rules restrict any use of the information to criminally investigate or prosecute any alcohol or drug abuse patient.[facility] HospitalIn the event this information is protected by the Federal Confidentiality of Alcohol and Drug Abuse Patient Records regulations: The Federal rules restrict any use of the information to criminally investigate or prosecute any alcohol or drug abuse patient.[facility] HospitalIn the event this information is protected by the Federal Confidentiality of Alcohol and Drug Abuse Patient Records regulations: The Federal rules restrict any use of the information to criminally investigate or prosecute any alcohol or drug abuse patient.[facility] HospitalIn the event this information is protected by the Federal Confidentiality of Alcohol and Drug Abuse Patient Records regulations: The Federal rules restrict any use of the information to criminally investigate or prosecute any alcohol or drug abuse patient.[facility] HospitalIn the event this information is protected by the Federal Confidentiality of Alcohol and Drug Abuse Patient Records regulations: The Federal rules restrict any use of the information to criminally investigate or prosecute any alcohol or drug abuse patient.[facility] HospitalIn the event this information is protected by the Federal Confidentiality of Alcohol and Drug Abuse Patient Records regulations: The Federal rules restrict any use of the information to criminally investigate or prosecute any alcohol or drug abuse patient.[facility] HospitalIn the event this information is protected by the Federal Confidentiality of Alcohol and Drug Abuse Patient Records regulations: The Federal rules restrict any use of the information to criminally investigate or prosecute any alcohol or drug abuse patient.[facility] HospitalIn the event this information is protected by the Federal Confidentiality of Alcohol and Drug Abuse Patient Records regulations: The Federal rules restrict any use of the information to criminally investigate or prosecute any alcohol or drug abuse patient.[facility]In the event this information is protected by the Federal Confidentiality of Alcohol and Drug Abuse Patient Records regulations: The Federal rules restrict any use of the information to criminally investigate or prosecute any alcohol or drug abuse patient.[facility] HospitalIn the event this information is protected by the Federal Confidentiality of Alcohol and Drug Abuse Patient Records regulations: The Federal rules restrict any use of the information to criminally investigate or prosecute any alcohol or drug abuse patient.[facility] HospitalIn the event this information is protected by the Federal Confidentiality of Alcohol and Drug Abuse Patient Records regulations: The Federal rules restrict any use of the information to criminally investigate or prosecute any alcohol or drug abuse patient.[facility] HospitalIn the event this information is protected by the Federal Confidentiality of Alcohol and Drug Abuse Patient Records regulations: The Federal rules restrict any use of the information to criminally investigate or prosecute any alcohol or drug abuse patient.[facility] HospitalIn the event this information is protected by the Federal Confidentiality of Alcohol and Drug Abuse Patient Records regulations: The Federal rules restrict any use of the information to criminally investigate or prosecute any alcohol or drug abuse patient.[facility] HospitalIn the event this information is protected by the Federal Confidentiality of Alcohol and Drug Abuse Patient Records regulations: The Federal rules restrict any use of the information to criminally investigate or prosecute any alcohol or drug abuse patient.[facility] HospitalIn the event this information is protected by the Federal Confidentiality of Alcohol and Drug Abuse Patient Records regulations: The Federal rules restrict any use of the information to criminally investigate or prosecute any alcohol or drug abuse patient.[facility] HospitalIn the event this information is protected by the Federal Confidentiality of Alcohol and Drug Abuse Patient Records regulations: The Federal rules restrict any use of the information to criminally investigate or prosecute any alcohol or drug abuse patient.[facility] HospitalIn the event this information is protected by the Federal Confidentiality of Alcohol and Drug Abuse Patient Records regulations: The Federal rules restrict any use of the information to criminally investigate or prosecute any alcohol or drug abuse patient.[facility] HospitalIn the event this information is protected by the Federal Confidentiality of Alcohol and Drug Abuse Patient Records regulations: The Federal rules restrict any use of the information to criminally investigate or prosecute any alcohol or drug abuse patient.[facility] HospitalIn the event this information is protected by the Federal Confidentiality of Alcohol and Drug Abuse Patient Records regulations: The Federal rules restrict any use of the information to criminally investigate or prosecute any alcohol or drug abuse patient.[facility] HospitalIn the event this information is protected by the Federal Confidentiality of Alcohol and Drug Abuse Patient Records regulations: The Federal rules restrict any use of the information to criminally investigate or prosecute any alcohol or drug abuse patient.[facility] HospitalIn the event this information is protected by the Federal Confidentiality of Alcohol and Drug Abuse Patient Records regulations: The Federal rules restrict any use of the information to criminally investigate or prosecute any alcohol or drug abuse patient.[facility] HospitalIn the event this information is protected by the Federal Confidentiality of Alcohol and Drug Abuse Patient Records regulations: The Federal rules restrict any use of the information to criminally investigate or prosecute any alcohol or drug abuse patient.[facility] HospitalIn the event this information is protected by the Federal Confidentiality of Alcohol and Drug Abuse Patient Records regulations: The Federal rules restrict any use of the information to criminally investigate or prosecute any alcohol or drug abuse patient.[facility] HospitalIn the event this information is protected by the Federal Confidentiality of Alcohol and Drug Abuse Patient Records regulations: The Federal rules restrict any use of the information to criminally investigate or prosecute any alcohol or drug abuse patient.[facility] HospitalIn the event this information is protected by the Federal Confidentiality of Alcohol and Drug Abuse Patient Records regulations: The Federal rules restrict any use of the information to criminally investigate or prosecute any alcohol or drug abuse patient.[facility] HospitalIn the event this information is protected by the Federal Confidentiality of Alcohol and Drug Abuse Patient Records regulations: The Federal rules restrict any use of the information to criminally investigate or prosecute any alcohol or drug abuse patient.[facility] HospitalIn the event this information is protected by the Federal Confidentiality of Alcohol and Drug Abuse Patient Records regulations: The Federal rules restrict any use of the information to criminally investigate or prosecute any alcohol or drug abuse patient.[facility] HospitalIn the event this information is protected by the Federal Confidentiality of Alcohol and Drug Abuse Patient Records regulations: The Federal rules restrict any use of the information to criminally investigate or prosecute any alcohol or drug abuse patient.[facility] HospitalIn the event this information is protected by the Federal Confidentiality of Alcohol and Drug Abuse Patient Records regulations: The Federal rules restrict any use of the information to criminally investigate or prosecute any alcohol or drug abuse patient.[facility] HospitalIn the event this information is protected by the Federal Confidentiality of Alcohol and Drug Abuse Patient Records regulations: The Federal rules restrict any use of the information to criminally investigate or prosecute any alcohol or drug abuse patient.[facility] HospitalIn the event this information is protected by the Federal Confidentiality of Alcohol and Drug Abuse Patient Records regulations: The Federal rules restrict any use of the information to criminally investigate or prosecute any alcohol or drug abuse patient.[facility] HospitalIn the event this information is protected by the Federal Confidentiality of Alcohol and Drug Abuse Patient Records regulations: The Federal rules restrict any use of the information to criminally investigate or prosecute any alcohol or drug abuse patient.[facility] HospitalIn the event this information is protected by the Federal Confidentiality of Alcohol and Drug Abuse Patient Records regulations: The Federal rules restrict any use of the information to criminally investigate or prosecute any alcohol or drug abuse patient.[facility] HospitalIn the event this information is protected by the Federal Confidentiality of Alcohol and Drug Abuse Patient Records regulations: The Federal rules restrict any use of the information to criminally investigate or prosecute any alcohol or drug abuse patient.[facility] HospitalIn the event this information is protected by the Federal Confidentiality of Alcohol and Drug Abuse Patient Records regulations: The Federal rules restrict any use of the information to criminally investigate or prosecute any alcohol or drug abuse patient.[facility] HospitalIn the event this information is protected by the Federal Confidentiality of Alcohol and Drug Abuse Patient Records regulations: The Federal rules restrict any use of the information to criminally investigate or prosecute any alcohol or drug abuse patient.[facility] HospitalIn the event this information is protected by the Federal Confidentiality of Alcohol and Drug Abuse Patient Records regulations: The Federal rules restrict any use of the information to criminally investigate or prosecute any alcohol or drug abuse patient.[facility] HospitalIn the event this information is protected by the Federal Confidentiality of Alcohol and Drug Abuse Patient Records regulations: The Federal rules restrict any use of the information to criminally investigate or prosecute any alcohol or drug abuse patient.[facility] HospitalIn the event this information is protected by the Federal Confidentiality of Alcohol and Drug Abuse Patient Records regulations: The Federal rules restrict any use of the information to criminally investigate or prosecute any alcohol or drug abuse patient.[facility] HospitalIn the event this information is protected by the Federal Confidentiality of Alcohol and Drug Abuse Patient Records regulations: The Federal rules restrict any use of the information to criminally investigate or prosecute any alcohol or drug abuse patient.[facility] HospitalIn the event this information is protected by the Federal Confidentiality of Alcohol and Drug Abuse Patient Records regulations: The Federal rules restrict any use of the information to criminally investigate or prosecute any alcohol or drug abuse patient.[facility] HospitalIn the event this information is protected by the Federal Confidentiality of Alcohol and Drug Abuse Patient Records regulations: The Federal rules restrict any use of the information to criminally investigate or prosecute any alcohol or drug abuse patient.[facility] HospitalIn the event this information is protected by the Federal Confidentiality of Alcohol and Drug Abuse Patient Records regulations: The Federal rules restrict any use of the information to criminally investigate or prosecute any alcohol or drug abuse patient.[facility] HospitalIn the event this information is protected by the Federal Confidentiality of Alcohol and Drug Abuse Patient Records regulations: The Federal rules restrict any use of the information to criminally investigate or prosecute any alcohol or drug abuse patient.[facility] HospitalIn the event this information is protected by the Federal Confidentiality of Alcohol and Drug Abuse Patient Records regulations: The Federal rules restrict any use of the information to criminally investigate or prosecute any alcohol or drug abuse patient.[facility] HospitalIn the event this information is protected by the Federal Confidentiality of Alcohol and Drug Abuse Patient Records regulations: The Federal rules restrict any use of the information to criminally investigate or prosecute any alcohol or drug abuse patient.[facility] HospitalIn the event this information is protected by the Federal Confidentiality of Alcohol and Drug Abuse Patient Records regulations: The Federal rules restrict any use of the information to criminally investigate or prosecute any alcohol or drug abuse patient.[facility] HospitalIn the event this information is protected by the Federal Confidentiality of Alcohol and Drug Abuse Patient Records regulations: The Federal rules restrict any use of the information to criminally investigate or prosecute any alcohol or drug abuse patient.[facility] HospitalIn the event this information is protected by the Federal Confidentiality of Alcohol and Drug Abuse Patient Records regulations: The Federal rules restrict any use of the information to criminally investigate or prosecute any alcohol or drug abuse patient.[facility] HospitalIn the event this information is protected by the Federal Confidentiality of Alcohol and Drug Abuse Patient Records regulations: The Federal rules restrict any use of the information to criminally investigate or prosecute any alcohol or drug abuse patient.[facility] HospitalIn the event this information is protected by the Federal Confidentiality of Alcohol and Drug Abuse Patient Records regulations: The Federal rules restrict any use of the information to criminally investigate or prosecute any alcohol or drug abuse patient.[facility] HospitalIn the event this information is protected by the Federal Confidentiality of Alcohol and Drug Abuse Patient Records regulations: The Federal rules restrict any use of the information to criminally investigate or prosecute any alcohol or drug abuse patient.[facility] HospitalIn the event this information is protected by the Federal Confidentiality of Alcohol and Drug Abuse Patient Records regulations: The Federal rules restrict any use of the information to criminally investigate or prosecute any alcohol or drug abuse patient.[facility] HospitalIn the event this information is protected by the Federal Confidentiality of Alcohol and Drug Abuse Patient Records regulations: The Federal rules restrict any use of the information to criminally investigate or prosecute any alcohol or drug abuse patient.[facility] HospitalIn the event this information is protected by the Federal Confidentiality of Alcohol and Drug Abuse Patient Records regulations: The Federal rules restrict any use of the information to criminally investigate or prosecute any alcohol or drug abuse patient.[facility] HospitalIn the event this information is protected by the Federal Confidentiality of Alcohol and Drug Abuse Patient Records regulations: The Federal rules restrict any use of the information to criminally investigate or prosecute any alcohol or drug abuse patient.[facility] HospitalIn the event this information is protected by the Federal Confidentiality of Alcohol and Drug Abuse Patient Records regulations: The Federal rules restrict any use of the information to criminally investigate or prosecute any alcohol or drug abuse patient.[facility] HospitalIn the event this information is protected by the Federal Confidentiality of Alcohol and Drug Abuse Patient Records regulations: The Federal rules restrict any use of the information to criminally investigate or prosecute any alcohol or drug abuse patient.[facility] ClinicIn the event this information is protected by the Federal Confidentiality of Alcohol and Drug Abuse Patient Records regulations: The Federal rules restrict any use of the information to criminally investigate or prosecute any alcohol or drug abuse patient.[facility] HospitalIn the event this information is protected by the Federal Confidentiality of Alcohol and Drug Abuse Patient Records regulations: The Federal rules restrict any use of the information to criminally investigate or prosecute any alcohol or drug abuse patient.[facility] HospitalIn the event this information is protected by the Federal Confidentiality of Alcohol and Drug Abuse Patient Records regulations: The Federal rules restrict any use of the information to criminally investigate or prosecute any alcohol or drug abuse patient.[facility] HospitalIn the event this information is protected by the Federal Confidentiality of Alcohol and Drug Abuse Patient Records regulations: The Federal rules restrict any use of the information to criminally investigate or prosecute any alcohol or drug abuse patient.[facility] HospitalIn the event this information is protected by the Federal Confidentiality of Alcohol and Drug Abuse Patient Records regulations: The Federal rules restrict any use of the information to criminally investigate or prosecute any alcohol or drug abuse patient.[facility] HospitalIn the event this information is protected by the Federal Confidentiality of Alcohol and Drug Abuse Patient Records regulations: The Federal rules restrict any use of the information to criminally investigate or prosecute any alcohol or drug abuse patient.[facility] HospitalIn the event this information is protected by the Federal Confidentiality of Alcohol and Drug Abuse Patient Records regulations: The Federal rules restrict any use of the information to criminally investigate or prosecute any alcohol or drug abuse patient.[facility] HospitalIn the event this information is protected by the Federal Confidentiality of Alcohol and Drug Abuse Patient Records regulations: The Federal rules restrict any use of the information to criminally investigate or prosecute any alcohol or drug abuse patient.[facility] HospitalIn the event this information is protected by the Federal Confidentiality of Alcohol and Drug Abuse Patient Records regulations: The Federal rules restrict any use of the information to criminally investigate or prosecute any alcohol or drug abuse patient.[facility] HospitalIn the event this information is protected by the Federal Confidentiality of Alcohol and Drug Abuse Patient Records regulations: The Federal rules restrict any use of the information to criminally investigate or prosecute any alcohol or drug abuse patient.[facility] HospitalIn the event this information is protected by the Federal Confidentiality of Alcohol and Drug Abuse Patient Records regulations: The Federal rules restrict any use of the information to criminally investigate or prosecute any alcohol or drug abuse patient.[facility] HospitalIn the event this information is protected by the Federal Confidentiality of Alcohol and Drug Abuse Patient Records regulations: The Federal rules restrict any use of the information to criminally investigate or prosecute any alcohol or drug abuse patient.[facility] Reason for Visit (unrecogniz ed section and content) Reason Comments Diabetes Specialty Diagnoses / Procedures Referred By Contac t Referred To Contact FAMILY MEDICINE Diagnoses PCP follow up Procedures PCP follow up Jese Zheng, [address] [place] [address] Phone: tel: fax: [facility] [place] [address] [place] [address] Phone: tel: Referral ID Status Reason Start Date Expiration Date Visits Requested Visits Authorized [id number] Authorized Financial Clearance Required - Self Pay Patient Cleared - Qualified HCAP/FA MARIA EUGENIA Referral Complete 09/23/2024 12/22/2024 99 99 Reason Comments F/U 3 Month Specialty Diagnoses / Procedures Referred By Contac t Referred To Contact PHARMACY Diagnoses Type 2 diabetes mellitus without complications Procedures EST PHARMACY VISIT Self Pharm Med [facility] [address] [place] [address] Referral ID Status Reason Start Date Expiration Date V isits Requested Visits Authorized [id number] Closed OON/Self Pay Override 06/06/2023 07/21/2023 1 1 Reason Comments Follow Up Reason Comments Patient Question Reason Comments Radiology CT Specialty Diagnoses / Procedures [facility] To Contact [facility]ING Diagnoses Adverse effect of treatment, subsequent encounter Procedures CT ABD/PEL WO IVCON CT ABD & PELVIS W/O CONTRAST Brandy Ramirez MD [address] [place] [address] Ct Imaging Referral ID Status Reason Start Date Expiration Date V isits Requested Visits Authorized [id number] Closed Auto-Generate d Referral 10/13/2021 12/12/2021 2 2 Reason Onset Date Comments Refill Request 10/30/2021 Reason Comments Follow Up 3 month Reason Comments Results Reason Comments Foot Pain (Midfoot) left foot, x 3 month s, stepped on tack a couple months ago. Reason Comments Results A1c Reason Comments Orders Reason Comments Refill Request Reason Comments Patient Update Patient Question Reason Comments Follow Up foot infection Reason Comments Missed Appointment Reason Comments Diabetes Reason Onset Date Comments Refill Request 03/05/2022 Reason Onset Date Comments Refill Request 03/22/2022 Reason Onset Date Comments Refill Request 05/02/2022 Reason Comments Back Pain low right sided back pain x 2 days Reason Comments Low Back Pain Right sided x 5 days Reason Comments abdomen and right sided pain Reason Comments Appointment Reason Comments Viral Syndrome Reason Onset Date Comments Refill Request 06/29/2022 Reason Comments F/U 3 Month Reason Onset Date Comments Refill Request 07/27/2022 Reason Onset Date Comments Refill Request 08/04/2022 Reason Onset Date Comments Refill Request 08/04/2022 Reason Comments Reprint work excuses from a year ago Reason Onset Date Comments Refill Request 09/13/2022 Reason Onset Date Comments Refill Request 09/26/2022 Reason Comments Urinary Problem Pt reported frequenc y, lower back pain x1 wk. Reason Comments Appointment Appointment with Dr. Ramirez for 10/18/22 Reason Comments Diabetes Abdominal Pain Seeing Dr. Ramirez, had EGD and colonoscopy in Aug Reason Comments CT Scan Insurance Issue Reason Onset Date Comments Refill Request 01/03/2023 Reason Comments Insurance Authorization [employer] Reason Onset Date Comments Refill Request 01/31/2023 Reason Comments Follow Up Reason Onset Date Comments Refill Request 02/24/2023 Reason Onset Date Comments Refill Request 03/25/2023 Reason Onset Date Comments Refill Request 04/02/2023 Reason Comments Cough 7-10 days, congestio n, chills x 2 days Specialty Diagnoses / Procedures Referred By Contac t Referred To Contact [facility] / [facility] Diagnoses congestion, chills, cough Procedures EST SAME DAY Self Mitchel Carney MD [address] [place] [address] Referral ID Status Reason Start Date Expiration Date V isits Requested Visits Authorized [id number] Outside PCP 04/05/2023 07/04/2023 1 1 Reason Comments Results Covid Positive Paxlovid Specialty Diagnoses / Procedures Referred By Contac t Referred To Contact CT IMAGING Diagnoses SOB (shortness of breath) Wheezing Pulmonary nodule Procedures CT CHEST WO IVCON DIAGNOSTIC COMPUTED TOMOGRAPHY THORAX W/O CNTRST Jese Zheng, DO [address] [place] [address] [place] [address] Referral ID Status Reason Start Date Expiration Date V isits Requested Visits Authorized [id number] Denied Auto-Generat ed Referral Patient Cleared - Admin/Chairm an/Director advise to proceed or did not respond 02/19/2023 03/20/2024 1 0 Specialty Diagnoses / Procedures Referred By Contac t Referred To Contact CT IMAGING Diagnoses Nausea Right flank pain RUQ pain Chronic RLQ pain Nausea and vomiting, unspecified vomiting type Procedures CT ABD/PEL WO IVCON CT ABD & PELVIS W/O CONTRAST Ankita Green, TILE MOLDER HAND.PROFESSOR OF PHYSICS [address] [place] [address] [place] [address] Referral ID Status Reason Start Date Expiration Date V isits Requested Visits Authorized [id number] Denied Auto-Generat ed Referral Patient Cleared - Admin/Chairm an/Director advise to proceed or did not respond 05/21/2022 07/20/2022 2 0 Reason Comments Radiology [place] Specialty Diagnoses / Procedures Referred By Contac t Referred To Contact MOLECULAR & FUNCTIONAL IMAGING Diagnoses Nausea Pain of upper abdomen Type 2 diabetes mellitus with peripheral neuropathy (HCC) RUQ pain Gastroesophageal reflux disease, unspecified whether esophagitis present Abdominal bloating Procedures NM HEPATOBILIARY W EF AND/OR RX HEPATOBIL SYST IMAG INC GB W/PHARMA INTERVENJ Ankita Green, TILE MOLDER HAND.PROFESSOR OF PHYSICS [address] [place] [address] Molecular & Functional Imaging [address] [place] [address] Referral ID Status Reason Start Date Expiration Date V isits Requested Visits Authorized [id number] Closed Auto-Generate d Referral 11/08/2022 12/08/2023 1 1 Reason Comments Radiology [place] Specialty Diagnoses / Procedures Referred By Contac t Referred To Contact US IMAGING Diagnoses Nausea Pain of upper abdomen Type 2 diabetes mellitus with peripheral neuropathy (HCC) RUQ pain Gastroesophageal reflux disease, unspecified whether esophagitis present Abdominal bloating Procedures US ABD RIGHT UPPER QUADRANT US ABDOMINAL REAL TIME W/IMAGE LIMITED Ankita Green, TILE MOLDER HAND.PROFESSOR OF PHYSICS [address] [place] [address] [place] [address] Referral ID Status Reason Start Date Expiration Date V isits Requested Visits Authorized [id number] Closed Auto-Generate d Referral 11/08/2022 12/08/2023 1 1 Reason Onset Date Comments F/U 3 Month Immunizations 05/27/2023 Flu vaccination Specialty Diagnoses / Procedures Referred By Contac t Referred To Contact Family Medicine / FAMILY MEDICINE Diagnoses SOB (shortness of breath) 3 Month follow up Procedures 4C EST Self Jese Zheng DO [address] [place] [address] Referral ID Status Reason Start Date Expiration Date Visits Re quested Visits Authorized [id number] Closed 05/27/2023 07/21/2023 1 1 Reason Comments Medication Problem Reason Comments Patient Update Referral ID Status Reason Start Date Expiration Date Visits Requested Visits Authorized [id number] Authorized OON/Self Pay Override 07/21/2023 3 3 Specialty Diagnoses / Procedures Referred By Contac t Referred To Contact PHARMACY Diagnoses Follow up for DM management Procedures EST Pharmacy Visit Self Pharm Med [facility] [address] [id number] Referral ID Status Reason Start Date Expiration Date V isits Requested Visits Authorized [id number] Closed OON/Self Pay Override Financial Clearance Required - OON Payor Patient Cleared - INN Insurance Found 06/28/2023 12/25/2023 1 1 Reason Onset Date Comments Refill Request 08/27/2023 Reason Onset Date Comments Refill Request 11/25/2023 Reason Comments F/U 3 Month Reason Comments Insurance Authorization Ozempic Reason Comments Insurance Authorization Reason Onset Date Comments Refill Request 01/24/2024 Reason Onset Date Comments Refill Request 04/07/2024 Specialty Diagnoses / Procedures Referred By Contac t Referred To Contact Radiology / [facility] Diagnoses ml Procedures XR CHEST Jese Zheng DO [address] [place] [address] Radio [facility] [address] [facility] [place] [place] [address] Referral ID Status Reason Start Date Expiration Date Visits Re quested Visits Authorized [id number] Closed 02/19/2023 07/21/2023 1 1 Reason Comments Recheck Follow up from last visit- URI symptoms started again on Saturday Reason Comments Appointment Pharmacist Visit Res cheduling Reason Comments Patient Question Reason Comments New Specialty Diagnoses / Procedures Referred By Colleen coronado Referred To Contact Orthopedics Diagnoses Right hand pain Procedures CONSULT TO ORTHOPAEDICS OFFICE/OUTPATIENT NEW HIGH MDM 60 MINUTES Jese Zheng DO [address] [place] [address] Referral ID Status Reason Start Date Expiration Date V isits Requested Visits Authorized [id number] Closed PCP Requested Referral 07/17/2024 07/17/2025 1 1 Reason Onset Date Comments Refill Request 09/09/2024 Reason Onset Date Comments Refill Request 11/16/2024 Reason Onset Date Comments Refill Request 01/11/2025 Reason Comments Shortness of Breath Reason Comments Cough Wheezing Shortness of Breath Care Teams (unrecognized sec tion and content) Looping Machine Operator Relationship Specialty Start Date End Date Jese Zheng DO [address] [facility] [place] [address] PCP - General Family Practice 10/07/13 [facility] [address] [facility] [place] [address] Pharmacist Pharmacy 04/30/18 Looping Machine Operator Relationship Specialty Start Date End Date Jese Zheng DO [address] [place] [address] PCP - General Family Practice 10/07/13 [facility] [address] [place] [address] Pharmacist Pharmacy 04/30/18 Looping Machine Operator Relationship Specialty Start Date End Date Jese Zheng, DO [address] [place] [address] PCP - General Family Practice 10/07/13 [place], Shayan, [facility] [address] [place] [address] Pharmacist Pharmacy 04/30/18 Looping Machine Operator Relationship Specialty Start Date End Date Jese Zheng, DO [address] [place] [address] PCP - General Family Practice 10/07/13 Leeanne Martinezily, [facility] [address] [place] [address] Pharmacist Pharmacy 04/30/18 Looping Machine Operator Relationship Specialty Start Date End Date Jese Zheng, DO [address] [place] [address] PCP - General Family Practice 10/07/13 Leeanne Martinezily, [facility] [address] [place] [address] Pharmacist Pharmacy 04/30/18 Looping Machine Operator Relationship Specialty Start Date End Date Jese Zheng, DO [address] [place] [address] PCP - General Family Practice 10/07/13 Leeanne Martinezily, [facility] [address] [place] [address] Pharmacist Pharmacy 04/30/18 Looping Machine Operator Relationship Specialty Start Date End Date Jese Zheng, DO [address] [place] [address] PCP - General Family Practice 10/07/13 Leeanne Martinezily, [facility] [address] [place] [address] Pharmacist Pharmacy 04/30/18 Looping Machine Operator Relationship Specialty Start Date End Date Jese Zheng, DO [address] [place] [address] PCP - General Family Practice 10/07/13 Leeanne Martinezily, [facility] [address] [place] [address] Pharmacist Pharmacy 04/30/18 Looping Machine Operator Relationship Specialty Start Date End Date Jese Zheng, DO [address] [place] [address] PCP - General Family Practice 10/07/13 Shayan Martinez, [facility] [address] [place] [address] Pharmacist Pharmacy 04/30/18 Looping Machine Operator Relationship Specialty Start Date End Date Jese Zheng, DO [address] [place] [address] PCP - General Family Practice 10/07/13 Shayan Martinez, [facility] [address] [place] [address] Pharmacist Pharmacy 04/30/18 Looping Machine Operator Relationship Specialty Start Date End Date Jese Zheng, DO [address] [place] [address] PCP - General Family Practice 10/07/13 Shayan Martinez, [facility] [address] [place] [address] Pharmacist Pharmacy 04/30/18 Looping Machine Operator Relationship Specialty Start Date End Date Jese Zheng, DO [address] [place] [address] PCP - General Family Practice 10/07/13 Shayan Martinez, [facility] [address] [place] [address] Pharmacist Pharmacy 04/30/18 Looping Machine Operator Relationship Specialty Start Date End Date Jese Zheng, DO [address] [place] [address] PCP - General Family Practice 10/07/13 [facility] [address] [place] [address] Pharmacist Pharmacy 04/30/18 Looping Machine Operator Relationship Specialty Start Date End Date Jese Zheng, DO [address] [place] [address] PCP - General Family Practice 10/07/13 [facility] [address] [place] [address] Pharmacist Pharmacy 04/30/18 Looping Machine Operator Relationship Specialty Start Date End Date Jese Zheng, DO [address] [place] [address] PCP - General Family Practice 10/07/13 [facility] [address] [place] [address] Pharmacist Pharmacy 04/30/18 Looping Machine Operator Relationship Specialty Start Date End Date Jese Zheng, DO [address] [place] [address] PCP - General Family Practice 10/07/13 [facility]ayan [facility] [address] [place] [address] Pharmacist Pharmacy 04/30/18 Looping Machine Operator Relationship Specialty Start Date End Date Jese Zheng, DO [address] [place] [address] PCP - General Family Practice 10/07/13 [facility] [address] [place] [address] Pharmacist Pharmacy 04/30/18 Looping Machine Operator Relationship Specialty Start Date End Date Jese Zheng, DO [address] [place] [address] PCP - General Family Medicine 10/07/13 [facility] [address] [place] [address] Pharmacist Pharmacy 04/30/18 Looping Machine Operator Relationship Specialty Start Date End Date Jese Zheng, DO [address] [place] [address] PCP - General Family Medicine 10/07/13 Juan, [facility] [address] [place] [address] Pharmacist Pharmacy 04/30/18 Looping Machine Operator Relationship Specialty Start Date End Date Jese Zheng, DO [address] [place] [address] PCP - General Family Medicine 10/07/13 [facility] [address] [place] [address] Pharmacist Pharmacy 04/30/18 Looping Machine Operator Relationship Specialty Start Date End Date Jese Zheng, DO [address] [place] [address] PCP - General Family Medicine 10/07/13 [facility]Sh[facility]Gold[facility] [address] [place] [address] Pharmacist Pharmacy 04/30/18 Looping Machine Operator Relationship Specialty Start Date End Date Jese Zheng, DO [address] [place] [address] PCP - General Family Medicine 10/07/13 Shayan Martinez, [facility] [address] [place] [address] Pharmacist Pharmacy 04/30/18 Looping Machine Operator Relationship Specialty Start Date End Date Jese Zheng, DO [address] [place] [address] PCP - General Family Medicine 10/07/13 CannelburgShayan, [facility] [address] [place] [address] Pharmacist Pharmacy 04/30/18 Looping Machine Operator Relationship Specialty Start Date End Date Jese Zheng, DO [address] [place] [address] PCP - General Family Medicine 10/07/13 CannelburgLeeanne oliveraily, [facility] [address] [place] [address] Pharmacist Pharmacy 04/30/18 Looping Machine Operator Relationship Specialty Start Date End Date Jese Zheng, DO [address] [place] [address] PCP - General Family Medicine 10/07/13 Shayan Martinez, [facility] [address] [place] [address] Pharmacist Pharmacy 04/30/18 Looping Machine Operator Relationship Specialty Start Date End Date Jese Zheng, DO [address] [place] [address] PCP - General Family Medicine 10/07/13 Juan, Shayan, [facility] [address] [place] [address] Pharmacist Pharmacy 04/30/18 Looping Machine Operator Relationship Specialty Start Date End Date Jese Zheng, DO [address] [place] [address] PCP - General Family Medicine 10/07/13 Shayan Martinez, [facility] [address] [place] [address] Pharmacist Pharmacy 04/30/18 Looping Machine Operator Relationship Specialty Start Date End Date Jese Zheng, DO [address] [place] [address] PCP - General Family Medicine 10/07/13 CannelburgShayan, [facility] [address] [place] [address] Pharmacist Pharmacy 04/30/18 Looping Machine Operator Relationship Specialty Start Date End Date Jese Zheng, DO [address] [place] [address] PCP - General Family Medicine 10/07/13 JuanShayan, [facility] [address] [place] [address] Pharmacist Pharmacy 04/30/18 Looping Machine Operator Relationship Specialty Start Date End Date Jese Zheng, DO [address] [place] [address] PCP - General Family Medicine 10/07/13 Shayan Martinez, [facility] [address] [place] [address] Pharmacist Pharmacy 04/30/18 Looping Machine Operator Relationship Specialty Start Date End Date Jese Zheng, DO [address] [place] [address] PCP - General Family Medicine 10/07/13 JuanShayan, [facility] [address] [place] [address] Pharmacist Pharmacy 04/30/18 Looping Machine Operator Relationship Specialty Start Date End Date Jese Zheng, DO [address] [place] [address] PCP - General Family Medicine 10/07/13 CannelburgShayan, [facility] [address] [place] [address] Pharmacist Pharmacy 04/30/18 Looping Machine Operator Relationship Specialty Start Date End Date Jese Zheng, DO [address] [place] [address] PCP - General Family Medicine 10/07/13 [place] Shayan, [facility] [address] [place] [address] Pharmacist Pharmacy 04/30/18 Looping Machine Operator Relationship Specialty Start Date End Date Jese Zheng, DO [address] [place] [address] PCP - General Family Medicine 10/07/13 [place] Shayan, [facility] [address] [place] [address] Pharmacist Pharmacy 04/30/18 Looping Machine Operator Relationship Specialty Start Date End Date Jese Zheng, DO [address] [place] [address] PCP - General Family Medicine 10/07/13 [place] Shayan, [facility] [address] [place] [address] Pharmacist Pharmacy 04/30/18 Looping Machine Operator Relationship Specialty Start Date End Date Jese Zheng, DO [address] [place] [address] PCP - General Family Medicine 10/07/13 [place] Shayan, [facility] [address] [place] [address] Pharmacist Pharmacy 04/30/18 Looping Machine Operator Relationship Specialty Start Date End Date Jese Zheng DO [address] [place] [address] PCP - General Family Medicine 10/07/13 [place], Shayan, [facility] [address] [place] [address] Pharmacist Pharmacy 04/30/18 Team Status: Active Member Role Status Dates Dr. Jese Zheng , DO Family Provider Active Dr. Jese Zheng , Primary Care Provider Active Team Status: Inactive Member Role Status Dates Dr. Jese Zheng , DO Primary Care Provider Active Ankita Green WHEEL CLEANER, WHEEL CLEANER-C Attending Provider, Frankie morris Provider Active Looping Machine Operator Relationship Specialty Start Date End Date Jese Zheng DO [address] [place] [address] PCP - General Family Medicine 10/07/13 CannelburgLeeanne oliveraily, [facility] [address] [place] [address] Pharmacist Pharmacy 04/30/18 Looping Machine Operator Relationship Specialty Start Date End Date Jese Zheng DO [address] [place] [address] PCP - General Family Medicine 10/07/13 Shayan Martinez, [facility] [address] [place] [address] Pharmacist Pharmacy 04/30/18 Looping Machine Operator Relationship Specialty Start Date End Date Jese Zheng DO [address] [place] [address] PCP - General Family Medicine 10/07/13 [place] Shayan, [facility] [address] [place] [address] Pharmacist Pharmacy 04/30/18 Looping Machine Operator Relationship Specialty Start Date End Date Jese Zheng DO [address] [place] [address] PCP - General Family Medicine 10/07/13 Leeanne Martinezily, [facility] [address] [place] [address] Pharmacist Pharmacy 04/30/18 Looping Machine Operator Relationship Specialty Start Date End Date Jese Zheng DO [address] [place] [address] PCP - General Family Medicine 10/07/13 Shayan Martinez, [facility] [address] [place] [address] Pharmacist Pharmacy 04/30/18 Looping Machine Operator Relationship Specialty Start Date End Date Jese Zheng DO [address] [place] [address] PCP - General Family Medicine 10/07/13 [facility] [address] [place] [address] Pharmacist Pharmacy 04/30/18 Looping Machine Operator Relationship Specialty Start Date End Date Jese Zheng DO [address] [place] [address] PCP - General Family Medicine 10/07/13 Shayan Martinez, [facility] [address] [place] [address] Pharmacist Pharmacy 04/30/18 Looping Machine Operator Relationship Specialty Start Date End Date Jese Zheng DO [address] [place] [address] PCP - General Family Medicine 10/07/13 Shayan Martinez, [facility] [address] [place] [address] Pharmacist Pharmacy 04/30/18 Looping Machine Operator Relationship Specialty Start Date End Date Jese Zheng DO [address] [place] [address] PCP - General Family Medicine 10/07/13 Leeanne Martinezily, [facility] [address] [place] [address] Pharmacist Pharmacy 04/30/18 Looping Machine Operator Relationship Specialty Start Date End Date Jese Zheng DO [address] [place] [address] PCP - General Family Medicine 10/07/13 [facility] [address] [place] [address] Pharmacist Pharmacy 04/30/18 Looping Machine Operator Relationship Specialty Start Date End Date Jese Zheng DO [address] [place] [address] PCP - General Family Medicine 10/07/13 Susana Garcia, [facility] [address] [place] [address] Pharmacist Pharmacy 05/09/23 Looping Machine Operator Relationship Specialty Start Date End Date Jese Zheng DO [address] [place] [address] PCP - General Family Medicine 10/07/13 Juan, Shayan, [facility] [address] [place] [address] Pharmacist Pharmacy 04/30/18 05/08/23 Looping Machine Operator Relationship Specialty Start Date End Date Jese Zheng DO [address] [place] [address] PCP - General Family Medicine 10/07/13 Shayan Martinez, [facility] [address] [place] [address] Pharmacist Pharmacy 04/30/18 05/08/23 Looping Machine Operator Relationship Specialty Start Date End Date Jese Zheng DO [address] [place] [address] PCP - General Family Medicine 10/07/13 [place], Shayan, [facility] [address] [place] [address] Pharmacist Pharmacy 04/30/18 05/08/23 Looping Machine Operator Relationship Specialty Start Date End Date Jese Zheng DO [address] [place] [address] PCP - General Family Medicine 10/07/13 [place], Shayan, [facility] [address] [place] [address] Pharmacist Pharmacy 04/30/18 05/08/23 Looping Machine Operator Relationship Specialty Start Date End Date Jese Zheng DO [address] [place] [address] PCP - General Family Medicine 10/07/13 [place] Shayan, [facility] [address] [place] [address] Pharmacist Pharmacy 04/30/18 05/08/23 Looping Machine Operator Relationship Specialty Start Date End Date Jese Zheng DO [address] [place] [address] PCP - General Family Medicine 10/07/13 Shayan Martinez, [facility] [address] [facility] [place] [address] Pharmacist Pharmacy 04/30/18 05/08/23 Looping Machine Operator Relationship Specialty Start Date End Date Jese Zheng DO [address] [facility] [place] [address] PCP - General Family Medicine 10/07/13 Shayan Martinez, [facility] [address] [facility] [place] [address] Pharmacist Pharmacy 04/30/18 05/08/23 Looping Machine Operator Relationship Specialty Start Date End Date Jese Zheng DO [address] [place] [address] PCP - General Family Medicine 10/07/13 [place]ataJ[place] [address] [place] [address] Pharmacist Pharmacy 05/09/23 Looping Machine Operator Relationship Specialty Start Date End Date Jees Zheng DO [address] [facility] [place] [address] PCP - General Family Medicine 10/07/13 Susana Garcia, [facility] [address] [place] [address] Pharmacist Pharmacy 05/09/23 Looping Machine Operator Relationship Specialty Start Date End Date Jese Zheng DO [address] [place] [address] PCP - General Family Medicine 10/07/13 Susana Garcia, [facility] [address] [place] [address] Pharmacist Pharmacy 05/09/23 Looping Machine Operator Relationship Specialty Start Date End Date Jese Zheng DO [address] [place] [address] PCP - General Family Medicine 10/07/13 [place] [address] [place] [address] Pharmacist Pharmacy 05/09/23 Looping Machine Operator Relationship Specialty Start Date End Date Jese Zheng DO [address] [place] [address] PCP - General Family Medicine 10/07/13 [place] [address] [place] [address] Pharmacist Pharmacy 05/09/23 Looping Machine Operator Relationship Specialty Start Date End Date Jese Zheng DO [address] [place] [address] PCP - General Family Medicine 10/07/13 [place] [address] [place] [address] Pharmacist Pharmacy 05/09/23 Looping Machine Operator Relationship Specialty Start Date End Date Jese Zheng DO [address] [place] [address] PCP - General Family Medicine 10/07/13 [place] [address] [place] [address] Pharmacist Pharmacy 05/09/23 Looping Machine Operator Relationship Specialty Start Date End Date Jese Zheng DO [address] [facility] [place] [address] PCP - General Family Medicine 10/07/13 Rupalflrichard SusanaWendy [place] [address] [place] [address] Pharmacist Pharmacy 05/09/23 Looping Machine Operator Relationship Specialty Start Date End Date Jese Zheng DO [address] [place] [address] PCP - General Family Medicine 10/07/13 [place] [address] [place] [address] Pharmacist Pharmacy 05/09/23 Looping Machine Operator Relationship Specialty Start Date End Date Jese Zheng DO [address] [place] [address] PCP - General Family Medicine 10/07/13 [place] [address] [place] [address] Pharmacist Pharmacy 05/09/23 Looping Machine Operator Relationship Specialty Start Date End Date eJse Zheng DO [address] [place] [address] PCP - General Family Medicine 10/07/13 [place] [address] [place] [address] Pharmacist Pharmacy 05/09/23 Looping Machine Operator Relationship Specialty Start Date End Date Jese Zheng DO [address] [place] [address] PCP - General Family Medicine 10/07/13 JoseoReinataJared [place] [address] [place] [address] Pharmacist Pharmacy 05/09/23 Looping Machine Operator Relationship Specialty Start Date End Date Jese Zheng DO [address] [place] [address] PCP - General Family Medicine 10/07/13 Reina GarciataJ[place] [address] [place] [address] Pharmacist Pharmacy 05/09/23 Looping Machine Operator Relationship Specialty Start Date End Date Jese Zheng DO [address] [place] [address] PCP - General Family Medicine 10/07/13 Jamarcus GarciaiettaJared [place] [address] [place] [address] Pharmacist Pharmacy 05/09/23 Looping Machine Operator Relationship Specialty Start Date End Date Jese Zheng DO [address] [place] [address] PCP - General Family Medicine 10/07/13 [facility] [address] [place] [address] Pharmacist Pharmacy 05/09/23 Looping Machine Operator Relationship Specialty Start Date End Date Jese Zheng DO [address] [place] [address] PCP - General Family Medicine 10/07/13 Radha, SusanaJared [place] [address] [place] [address] Pharmacist Pharmacy 05/09/23 Looping Machine Operator Relationship Specialty Start Date End Date Jese Zheng DO [address] [facility] [place] [address] PCP - General Family Medicine 10/07/13 [place] [address] [place] [address] Pharmacist Pharmacy 05/09/23 Looping Machine Operator Relationship Specialty Start Date End Date Jese Zheng DO [address] [place] [address] PCP - General Family Medicine 10/07/13 [place] [address] [place] [address] Pharmacist Pharmacy 05/09/23 Looping Machine Operator Relationship Specialty Start Date End Date Jese Zheng DO [address] [place] [address] PCP - General Family Medicine 10/07/13 Shayan Martinez, [facility] [address] [place] [address] Pharmacist Pharmacy 04/30/18 05/08/23 Looping Machine Operator Relationship Specialty Start Date End Date Jese Zheng DO [address] [place] [address] PCP - General Family Medicine 10/07/13 [facility] [place] [address] [place] [address] Pharmacist Pharmacy 05/09/23 Looping Machine Operator Relationship Specialty Start Date End Date Jese Zheng DO [address] [place] [address] PCP - General Family Medicine 10/07/13 Shayan Martinez, [facility] [address] [place] [address] Pharmacist Pharmacy 04/30/18 05/08/23 Looping Machine Operator Relationship Specialty Start Date End Date Jese Zheng DO [address] [place] [address] PCP - General Family Medicine 10/07/13 [place], Shayan, [facility] [address] [place] [address] Pharmacist Pharmacy 04/30/18 05/08/23 Looping Machine Operator Relationship Specialty Start Date End Date Jese Zheng DO [address] [place] [address] PCP - General Family Medicine 10/07/13 [place], Shayan, [facility] [address] [place] [address] Pharmacist Pharmacy 04/30/18 05/08/23 Looping Machine Operator Relationship Specialty Start Date End Date Jese Zheng DO [address] [place] [address] PCP - General Family Medicine 10/07/13 Shayan Martinez, [facility] [address] [place] [address] Pharmacist Pharmacy 04/30/18 05/08/23 Looping Machine Operator Relationship Specialty Start Date End Date Jese Zheng DO [address] [place] [address] PCP - General Family Medicine 10/07/13 [place] [address] [place] [address] Pharmacist Pharmacy 05/09/23 Looping Machine Operator Relationship Specialty Start Date End Date Jese Zheng DO [address] [place] [address] PCP - General Family Medicine 10/07/13 [place] [address] [place] [address] Pharmacist Pharmacy 05/09/23 Looping Machine Operator Relationship Specialty Start Date End Date Jese Zheng DO [address] [place] [address] PCP - General Family Medicine 10/07/13 [place] [address] [place] [address] Pharmacist Pharmacy 05/09/23 Corrine [place], JAXSON.PROFESSOR OF PHYSICS [address] [place] [address] Force Dispatcher Family Medicine 06/28/24 Ankita Green, JAXSON.PROFESSOR OF PHYSICS [address] [place] [address] Force Dispatcher Family Medicine 06/28/24 Looping Machine Operator Relationship Specialty Start Date End Date Jese Zheng DO [address] [place] [address] PCP - General Family Medicine 10/07/13 [place] [address] [place] [address] Pharmacist Pharmacy 05/09/23 Corrine [place], TILE MOLDER HAND.PROFESSOR OF PHYSICS [address] [place] [address] [facility] 06/28/24 [facility]ieAnkita, TILE MOLDER HAND.PROFESSOR OF PHYSICS [address] [place] [address] [facility] 06/28/24 Looping Machine Operator Relationship Specialty Start Date End Date Jese Zheng DO [address] [place] [address] PCP - General Family Medicine 10/07/13 [place] [address] [place] [address] Pharmacist Pharmacy 05/09/23 Corrine [place], TILE MOLDER HAND.PROFESSOR OF PHYSICS [address] [place] [address] [facility] 06/28/24 JulianaAnkita, TILE MOLDER HAND.PROFESSOR OF PHYSICS [address] [place] [address] [facility] 06/28/24 Looping Machine Operator Relationship Specialty Start Date End Date Jese Zheng DO [address] [place] [address] PCP - General Family Medicine 10/07/13 [place] [address] [place] [address] Pharmacist Pharmacy 05/09/23 Corrine [place], TILE MOLDER HAND.PROFESSOR OF PHYSICS [address] [place] [address] Force Dispatcher [facility] 06/28/24 [facility] HospitalAnkita, TILE MOLDER HAND.PROFESSOR OF PHYSICS [address] [place] [address] Force Dispatcher [facility] 06/28/24 Looping Machine Operator Relationship Specialty Start Date End Date Jese Zheng DO [address] [place] [address] PCP - General Family Medicine 10/07/13 Sus[place] GarciaJared [place] [address] [place] [address] Pharmacist Pharmacy 05/09/23 Corrine [place], TILE MOLDER HAND.PROFESSOR OF PHYSICS [address] [place] [address] [facility] 06/28/24 [facility] HospitalAnkita, TILE MOLDER HAND.PROFESSOR OF PHYSICS [address] [place] [address] [facility] 06/28/24 Looping Machine Operator Relationship Specialty Start Date End Date Jese Zheng DO [address] [place] [address] PCP - General Family Medicine 10/07/13 Susana GarciaJ[place] [address] [place] [address] Pharmacist Pharmacy 05/09/23 Corrine [place], TILE MOLDER HAND.PROFESSOR OF PHYSICS [address] [place] [address] [facility] 06/28/24 [facility] HospitalMacieAnkita, TILE MOLDER HAND.PROFESSOR OF PHYSICS [address] [place] [address] [facility] 06/28/24 Looping Machine Operator Relationship Specialty Start Date End Date Jese Zheng DO [address] [place] [address] PCP - General Family Medicine 10/07/13 [place] [address] [place] [address] Pharmacist Pharmacy 05/09/23 Corrine Louise, TILE MOLDER HAND.PROFESSOR OF PHYSICS [address] [place] [address] [facility] 06/28/24 [facility] HospitalMacieAnkita, TILE MOLDER HAND.PROFESSOR OF PHYSICS [address] [place] [address] [facility] 06/28/24 Looping Machine Operator Relationship Specialty Start Date End Date Jese Zheng DO [address] [place] [address] PCP - General Family Medicine 10/07/13 [place] [address] [place] [address] Pharmacist Pharmacy 05/09/23 [facility] HospitalAnkita, TILE MOLDER HAND.PROFESSOR OF PHYSICS [address] [place] [address] [facility] 06/28/24 Looping Machine Operator Relationship Specialty Start Date End Date Jese Zheng DO [address] [facility] [place] [address] PCP - General Family Medicine 10/07/13 RupalflReina leonDavid [place] [address] [place] [address] Pharmacist Pharmacy 05/09/23 Ankita Green, TILE MOLDER HAND.PROFESSOR OF PHYSICS [address] [facility] [place] [address] Force Dispatcher Family Medicine 06/28/24 Looping Machine Operator Relationship Specialty Start Date End Date Jese Zheng DO [address] [facility] [place] [address] PCP - General Family Medicine 10/07/13 [facility] [place] [address] [place] [address] Pharmacist Pharmacy 05/09/23 Ankita Green, TILE MOLDER HAND.PROFESSOR OF PHYSICS [address] [facility] [place] [address] Force Dispatcher Family Medicine 06/28/24 Looping Machine Operator Relationship Specialty Start Date End Date Jese Zheng DO [address] [facility] [place] [address] PCP - General Family Medicine 10/07/13 [facility] HospitalrichardJamarcusSusanaWendy [place] [address] [place] [address] Pharmacist Pharmacy 05/09/23 Ankita Green, TILE MOLDER HAND.PROFESSOR OF PHYSICS [address] [facility] [place] [address] Force Dispatcher Family Medicine 06/28/24 Natali Klein, TILE MOLDER HAND.PROFESSOR OF PHYSICS [address] [place] [address] [facility] 01/04/25 Looping Machine Operator Relationship Specialty Start Date End Date Jese Zheng DO [address] [place] [address] PCP - General Family Medicine 10/07/13 [place] [address] [place] [address] Pharmacist Pharmacy 05/09/23 Ankita Green, TILE MOLDER HAND.PROFESSOR OF PHYSICS [address] [place] [address] [facility] 06/28/24 Natali Klein, TILE MOLDER HAND.PROFESSOR OF PHYSICS [address] [place] [address] [facility] 01/04/25 Looping Machine Operator Relationship Specialty Start Date End Date Jese Zheng DO [address] [place] [address] PCP - General Family Medicine 10/07/13 [facility] [place] [address] [place] [address] Pharmacist Pharmacy 05/09/23 Ankita Green TILE MOLDER HAND.PROFESSOR OF PHYSICS [address] [place] [address] Force Dispatcher Family Medicine 06/28/24 Natali Klein TILE MOLDER HAND.PROFESSOR OF PHYSICS [address] [place] [address] Force Dispatcher [facility] 01/04/25 Looping Machine Operator Relationship Specialty Start Date End Date Jese Zheng DO [address] [place] [address] PCP - General Family Medicine 10/07/13 [place] [address] [place] [address] Pharmacist Pharmacy 05/09/23 JulianaAnkita, TILE MOLDER HAND.PROFESSOR OF PHYSICS [address] [place] [address] Force Dispatcher [facility] [facility] 06/28/24 Natali Klein, TILE MOLDER HAND.PROFESSOR OF PHYSICS [address] [place] [address] [facility] 01/04/25 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 Jese Zheng DO Primary Care Provider Active Team Status: Active Member Role/Relationship Status Dates Dr. Jese Zheng DO Primary Care Provider Active Start: February 22, 2025 Dr. John Catherine MD Emergency Provider Active Start: February 22, 2025 Dr. Denton Cook MD Attending Provider Active Start: February 22, 2025 Team Status: Active Member Role/Relationship Status Dates Dr. Jese Zheng DO Primary Care Provider Active Start: February 22, 2025 Dr. John Catherine MD Emergency Provider Active Start: February 22, 2025 Dr. Denton Cook MD Admit Provider Active Star t: February 22, 2025 Dr. 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 Jese Zheng DO Primary Care Provider Active Start: February 22, 2025 End: February 25, 2025 Dr. John Catherine MD Emergency Provider Active Start: February 22, 2025 End: February 25, 2025 Dr. Denton Cook MD Admit Provider Active Star t: February 22, 2025 End: February 25, 2025 Dr. Denton Cook MD Other Provider Active Star t: February 22, 2025 End: February 25, 2025 Dr. Clarissa Herrera MD Attending Provider Active Start: February 22, 2025 End: February 25, 2025 Dr. Faye Mace DO Other Provider Active Start : February 22, 2025 End: February 25, 2025 Dr. Elver Montero MD Other Provider Active Start : February 22, 2025 End: February 25, 2025 Dr. Capri Tucker MD Other Provider Active Start: February 22, 2025 End: February 25, 2025 Dr. Justina Abraham MD Other Provider Active Start: February 22, 2025 End: February 25, 2025 Juju Love MD Other Provider Active Start : February 22, 2025 End: February 25, 2025 Gopal Talbot MS Other Provider Active Start: A ugust 2024 End: February 25, 2025 Dr. Chet Sidhu MD Other Provider Active Sta rt: February 22, 2025 End: February 25, 2025 Amrita Woo MD Other Provider Active Start: February 22, 2025 End: February 25, 2025 MARITZA CHAMORRO MD Other Provider Active Start: A ugust 2024 End: February 25, 2025 Gayathri Jacome MD Other Provider Active Start : February 22, 2025 End: February 25, 2025 Dr. Ellen Markham MD Other Provider Active Start : February 22, 2025 End: February 25, 2025 Gus Mott MD Other Provider Active Start: February 22, 2025 End: February 25, 2025 Mary Kay Dugan MD Other Provider Active Start: February 22, 2025 End: February 25, 2025 Team Status: Active Member Role/Relationship Status Dates Dr. Jese Zheng DO Primary Care Provider Active Start: February 23, 2025 Dr. John Catherine MD Emergency Provider Active Start: February 23, 2025 Dr. Denton Cook MD Admit Provider Active Star t: February 23, 2025 Dr. Denton Cook MD Other Provider Active Star t: February 23, 2025 Dr. Faye Mace DO Attending Provider Active S tart: February 23, 2025 Dr. Faye Mace DO Other Provider Active Start : February 23, 2025 Dr. Elver Montero MD Other Provider Active Start : February 23, 2025 Dr. Capri Tucker MD Other Provider Active Start: February 23, 2025 Dr. Justina Abraham MD Other Provider Active Start: February 23, 2025 Juju Love MD Other Provider Active Start : February 23, 2025 Gopal Talbot MS Other Provider Active Start: 2024 Dr. Chet Sidhu MD Other Provider Active Sta rt: February 23, 2025 Amrita Woo MD Other Provider Active Start: February 23, 2025 MARITZA CHAMORRO MD Other Provider Active Start: A 2024 Gayathri Jacome MD Other Provider Active Start : February 23, 2025 Dr. Ellen Markham MD Other Provider Active Start : February 23, 2025 Gus Mott MD Other Provider Active Start: February 23, 2025 Mary Kay Dugan MD Other Provider Active Start: February 23, 2025 Team Status: Active Member Role/Relationship Status Dates Dr. Jese Zheng DO Primary Care Provider Active Start: February 23, 2025 Dr. John Catherine MD Emergency Provider Active Start: February 23, 2025 Dr. Denton Cook MD Admit Provider Active Star t: February 23, 2025 Dr. Denton Cook MD Other Provider Active Star t: February 23, 2025 Dr. Elver Montero MD Attending Provider Active S tart: February 23, 2025 Dr. Elver Montero MD Other Provider Active Start : February 23, 2025 Dr. Faye Mace DO Other Provider Active Start : February 23, 2025 Team Status: Active Member Role/Relationship Status Dates Dr. Jese Zheng DO Primary Care Provider Active Start: February 24, 2025 Dr. John Catherine MD Emergency Provider Active Start: February 24, 2025 Dr. Denton Cook MD Admit Provider Active Star t: February 24, 2025 Dr. Denton Cook MD Other Provider Active Star t: February 24, 2025 Dr. Elver Montero MD Attending Provider Active S tart: February 24, 2025 Dr. Elver Montero MD Other Provider Active Start : February 24, 2025 Dr. Capri Tucker MD Other Provider Active Start: February 24, 2025 Dr. Justina Abraham MD Other Provider Active Start: February 24, 2025 Juju Love MD Other Provider Active Start : February 24, 2025 Gopal Talbot MS Other Provider Active Start: A ugust 2024 Dr. Chet Sidhu MD Other Provider Active Sta rt: February 24, 2025 Amrita Woo MD Other Provider Active Start: February 24, 2025 MARITZA CHAMORRO MD Other Provider Active Start: A ugust 2024 Gayathri Jacome MD Other Provider Active Start : February 24, 2025 Dr. Ellen Markham MD Other Provider Active Start : February 24, 2025 Gus Mott MD Other Provider Active Start: February 24, 2025 Mary Kay Dugan MD Other Provider Active Start: February 24, 2025 Dr. Clarissa Herrera MD Other Provider Active St art: February 24, 2025 Dr. Faye Mace DO Other Provider Active Start : February 24, 2025 Team Status: Active Member Role/Relationship Status Dates Dr. Jese Zheng DO Primary Care Provider Active Start: February 24, 2025 Dr. John Catherine MD Emergency Provider Active Start: February 24, 2025 Dr. Denton Cook MD Admit Provider Active Star t: February 24, 2025 Dr. Denton Cook MD Other Provider Active Star t: February 24, 2025 Dr. Clarissa Herrera MD Attending Provider Active Start: February 24, 2025 Dr. Clarissa Herrera MD Other Provider Active St art: February 24, 2025 Dr. Faye Mace DO Other Provider Active Start : February 24, 2025 Dr. Elver Montero MD Other Provider Active Start : February 24, 2025 Dr. Capri Tucker MD Other Provider Active Start: February 24, 2025 Dr. Justina Abraham MD Other Provider Active Start: February 24, 2025 Juju Love MD Other Provider Active Start : February 24, 2025 Gopal Talbot MS Other Provider Active Start: A ugust 2024 Dr. Chet Sidhu MD Other Provider Active Sta rt: February 24, 2025 Amrita Woo MD Other Provider Active Start: February 24, 2025 MARITZA CHAMORRO MD Other Provider Active Start: A ugust 2024 Gayathri Jacome MD Other Provider Active Start : February 24, 2025 Dr. Ellen Markham MD Other Provider Active Start : February 24, 2025 Gus Mott MD Other Provider Active Start: February 24, 2025 Mary Kay Dugan MD Other Provider Active Start: February 24, 2025 INFORMATION SOURCE (unrecogn ized section and content) DATE CREATED AUTHOR 09/20/2022 [facility] DATE CREATED AUTHOR AUTHOR'S ORGANIZ ATION 05/29/2023 [facility] DATE CREATED AUTHOR AUTHOR'S ORGANIZ ATION 04/17/2024 [facility] DATE CREATED AUTHOR AUTHOR'S ORGANIZ ATION 02/27/2025 [facility] DATE CREATED AUTHOR AUTHOR'S ORGANIZ ATION 02/27/2025 [facility] Goals (unrecognized section and content) Goals may be documented in a n alternate sectionGoals may be documented in an alternate section FOR RECORDS PERTAINING TO PATIENTS WHO ARE OR HAVE BEEN ENROLLED IN A CHEMICAL DEPENDENCY/SUBSTANCEABUSE PROGRAM, SOME INFORMATION MAY BE OMITTED. This clinical summary was aggregated from multiple sources. Caution should be exercised in using it in the provision of clinical care. This summary normalizes information from multiple sources, and as a consequence, information in this document may materially change the coding, format and clinical context of patient data. In addition, data may be omitted in some cases. CLINICAL DECISIONS SHOULD BE BASED ON THE PRIMARY CLINICAL RECORDS. [employer] provides no warranty or guarantee of the accuracy or completeness of information in this document.
--- NOTE | 2025-02-28 05:41 | EKG12_ITS ---
Test Reason : DYSRHYTHMIA Blood Pressure : */* mmHG Vent. Rate : 111 BPM Atrial Rate : 111 BPM P-R Int : 152 ms QRS Dur : 94 ms QT Int : 356 ms P-R-T Axes : 64 14 114 degrees QTcB Int : 484 ms Sinus tachycardia Possible Left atrial enlargement Inferior infarct , age undetermined QTcB >= 480 msec Abnormal ECG When compared with ECG of 22-Feb-2025 22:14, Inferior infarct is now Present Nonspecific T wave abnormality no longer evident in Inferior leads Confirmed by Anjel Canseco ([id number]), photograph editor REGGIE SHEARER ([id number]) on 03/04/2025 6:28:03 AM Referred By: Confirmed By: Anjel Canseco
[2025-02-28 05:42] LABS: Allen Test Positive; Base Excess -4 mmol/L (-2 to +2); FI02 15.0; PO2 71 mmHG (75-100); SITE R Radial; SO2 92 % (95-99)
[2025-02-28 06:16] LABS: Anion Gap 11 (5-15); BUN 17 mg/dL (4-19); BUN/Creat Ratio 22.0 RATIO (10-20); Calcium,Total 9.1 mg/dL (7.6-11.0); Carbon Dioxide 23.3 mmol/L (21.0-32.0); Chloride 105 mmol/L (98-108); Estimated Creatinine Clearance 97.63 ml/min (50-250); Glucose 202 mg/dL (70-99); Magnesium 2.1 mg/dL (1.5-2.2); Potassium 4.0 mmol/L (3.3-5.1); Pro- Brain NATRIURETIC PEPTIDE 2358 pg/mL (<=900)
--- NOTE | 2025-02-28 07:20 | PCM.HP.STD ---
HPI - General General Date of Admission: 02/28/25 Date of Service: 02/28/25 Chief Complaint: shortness of breath HPI Narrative LISA GOTTI, is a 59 F with a PMH as outlined who was admitted via the ED on 02/28/2025 with a complaint of shortness of breath, cough and congestion. She was recently discharged after presentation for nonstemi and heart failure. She could not lay flat during that admission during cardiac cath, and so she was given medical management. Her lasix was discontinued prior to discharge. She says her shortness of breath worsened and she had an associated cough productive of sputum. Review of systems is otherwise negative. Vitals in the ED were BP of 113/73, GA of 103, RR of 24 and temp of 97.7. She was saturating at 95% on room air, but eventually got more short of breath and then required AirVo. CBC showed hb of 13.1, wbc of 7.9, platelets of 303. Chemistry showed sodium of 140, potassium of 4, bicarb of 23.3 and Cr of 0.75. CTA chest showed worsening bilateral ground glass opacities, likely changes of pulmonary edema and/or focal pneumonia as well as worsening bilateral pleural effusion. She is being admitted to be managed for acute hypoxic respiratory failure due to acute exacerbation of heart failure. [facility] Medical History (Updated 02/28/25 @ 07:[address] Bacilio Mott, ) Dyslipidemia Trigger ring finger of left hand Obesity Essential hypertension GERD (gastroesophageal reflux disease) Low HDL (under 40) Incisional hernia without obstruction or gangrene Unspecified hereditary and idiopathic peripheral neuropathy Type 2 diabetes mellitus with polyneuropathy Kidney stones Blood clot in vein Hx: UTI (urinary tract infection) Home Medications ?Medication ?Instructions ?Recorded ?Last Taken ?Type albuterol sulfate 90 mcg/actuation 2 puff inhalation Q4H PRN PRN 04/08/14 04/08/14 02:30 History aerosol inhaler Wheezing calcium 315 mg (as 1 tab PO DAILY 04/08/14 04/05/17 22:00 History citrate)-vitamin D3 6.25 mcg (250 2 tab unit) tablet lisinopril 10 mg tablet 1 tab PO DAILY 04/07/17 04/05/17 08:00 History 1 tab magnesium citrate 150 ml PO Q6H PRN PRN Constipation 01/22/19 Unknown Rx #300 mL albuterol sulfate 2.5 mg/3 mL 2.5 mg inhalation Q4H PRN 05/11/19 Unknown History (0.083 %) solution for nebulization shortness of breath or wheezing alcohol swabs (BD Alcohol Swabs) See Rx Instructions topical 05/11/19 Unknown History .COMPLEX aspirin 81 mg tablet,delayed 81 mg PO DAILY 05/11/19 Unknown History release (Adult Low Dose Aspirin) atorvastatin 40 mg tablet 40 mg PO DAILY 05/11/19 Unknown History blood sugar diagnostic (FreeStyle #10 ea 05/11/19 Unknown History Lite Strips) blood-glucose meter (FreeStyle #1 ea 05/11/19 Unknown History Lite Meter kit) famotidine 20 mg tablet 20 mg PO BID 05/11/19 Unknown History insulin degludec 100 unit/mL (3 112 unit subcut Q24H 05/11/19 Unknown History mL) subcutaneous pen (Tresiba FlexTouch U-100 insulin) lancets 30 gauge (Unilet Super #25 ea 05/11/19 Unknown History Thin Lancets) mupirocin 2 % topical ointment 1 applic topical BID 05/11/19 Unknown History pen needle, diabetic 31 gauge x #30 ea 05/11/19 Unknown History 316 (1st Tier Unifine Pentips) flash glucose sensor (FreeStyle #2 ea 02/26/20 Unknown Rx Michi 14 Day Sensor kit) insulin aspart U-100 100 unit/mL 20 unit (0.2 mL) subcut TID #24 mL 04/05/20 Unknown Rx (3 mL) subcutaneous pen (Novolog FlexPen U-100 Insulin aspart) metformin 1,000 mg tablet 1,000 mg PO BID diabetes 02/06/21 Unknown History cyanocobalamin (vitamin B-12) 2,000 mcg PO DAILY 02/22/25 Unknown History 1,000 mcg tablet,extended release dulaglutide 4.5 mg/0.5 mL 4.5 mg subcut QWEEK 02/22/25 Unknown History subcutaneous pen injector (Trulicity) empagliflozin 10 mg tablet 25 mg PO BREAKFAST 02/22/25 Unknown History (Jardiance) fluoxetine 20 mg capsule 20 mg PO DAILY 02/22/25 Unknown History gabapentin 100 mg capsule 100 mg PO QHS 02/22/25 Unknown History carvedilol 3.125 mg tablet 3.125 mg PO BIDCM #60 tabs 02/25/25 Unknown Rx Allergy/AdvReac Type Severity Reaction Status Date / Time tramadol Allergy Hives Verified 02/28/25 04:51 albuterol sulfate (From AdvReac Vomiting Verified 02/28/25 04:51 Proventil HFA) ammonium lactate (From AdvReac Other Verified 02/28/25 04:51 Lac-Hydrin) phentermine HCl (From AdvReac Chest Verified 02/28/25 04:51 Adipex-P) tightness Family History Uncle Cancer Sister Diabetes Social History Smoking Status: Former smoker alcohol intake: never substance use type: does not use ROS Constitutional Constitutional: Reports fatigue, malaise and weakness; Denies anorexia, chills or fever(s) Eyes Eyes: Denies change in vision ENT HEENT: Denies dysphagia, headache(s), nasal congestion or sore throat Cardiovascular Cardiovascular: Reports dyspnea on exertion and orthopnea; Denies chest pain, edema, lightheadedness, paroxysmal nocturnal dyspnea, rapid heart rate or syncope Respiratory/Chest Respiratory/Chest: Reports cough, dyspnea, shortness of breath at rest and shortness of breath with exertion; Denies productive cough or wheezing Gastrointestinal Gastrointestinal: Denies abdominal pain, nausea or vomiting Genitourinary Genitourinary: Denies dysuria Neurologic Neurologic: Denies confusion, focal weakness, headache(s), numbness or seizures Psychiatric Psychiatric: Denies anxiety or depression Vital Signs Vital Signs Vital Signs: 02/28/25 04:52 02/28/25 04:56 02/28/25 05:15 Temperature 96.6 F L Temperature Source Axillary Pulse Rate 117 H 137 H Respiratory Rate 28 H 32 H Respiratory Effort Short of Breath Labored Accessory Muscle Use Respiratory Depth Shallow Respiratory Pattern Tachypnea Tachypnea Blood Pressure 177/105 H Blood Pressure Mean 129 Pulse Ox 99 Oxygen Delivery Method Nasal Cannula Nasal Cannula Oxygen Flow Rate (L/min) 4 Fraction of Inspired Oxygen (FIO2) 4 02/28/25 05:50 02/28/25 06:00 02/28/25 06:10 Temperature Temperature Source Pulse Rate 108 H 106 H 116 H Respiratory Rate 20 H 25 H 26 H Respiratory Effort Respiratory Depth Respiratory Pattern Tachypnea Blood Pressure 150/106 H 123/78 H Blood Pressure Mean 120 93 Pulse Ox 95 100 93 Oxygen Delivery Method Non-Rebreather Oxygen Flow Rate (L/min) 15 Fraction of Inspired Oxygen (FIO2) 75 02/28/25 07:00 02/28/25 07:00 02/28/25 07:00 Temperature 97.7 F L 97.7 F L Temperature Source Oral Pulse Rate 103 H 103 H 103 H Respiratory Rate 25 H 24 H 24 H Respiratory Effort Respiratory Depth Respiratory Pattern Blood Pressure 113/73 113/73 113/73 Blood Pressure Mean 86 86 86 Pulse Ox 94 94 95 Oxygen Delivery Method CPAP Room Air Oxygen Flow Rate (L/min) Fraction of Inspired Oxygen (FIO2) Weight Weight: 216 lb Body Mass Index (BMI) 32.8 Physical Exam Const alert, oriented x3 and no apparent distress General Appearance: cooperative HEENT normocephalic, head/scalp atraumatic, hearing grossly normal bilaterally and moist oral mucous membranes Mouth: oral and palatal mucosa normal Eyes PERRL, EOMs intact bilaterally and conjunctivae normal Neck supple and no JVD Resp Resp Narrative: moderately diminished breath sounds bilaterally, no wheezes or crackles. On AIrVO at 60 L Cardio regular rhythm, S1 normal heart sound, S2 normal heart sound and no murmurs GI normal to inspection, nondistended, normoactive bowel sounds, soft to palpation and non-tender Extremity normal to inspection, full ROM and no clubbing, cyanosis or edema Neuro oriented x3 and moves all extremities Sensorium / Orientation: awake and alert Motor Exam: strength 5/5 throughout Psych affect normal Results Lab / Micro Data 02/28/25 05:00 02/28/25 05:00 Labs: Laboratory Results - last 24 hr 02/28/25 05:00: WBC 7.9, RBC 4.27, Hgb 13.1, Hct 39.3, MCV 92.0, MCH 30.7, MCHC 33.3, RDW Std Deviation 41.7, RDW Coeff of Brett 12.4, Plt Count 303, MPV 9.7, Immature Gran % (Auto) 0.300, Neut % (Auto) 45.5 L, Lymph % (Auto) 39.0, [place] % (Auto) 12.2 H, Eos % (Auto) 2.2, Baso % (Auto) 0.8, Absolute Neuts (auto) 3.6, Absolute Lymphs (auto) 3.08, Nucleated RBC % 0, Sodium 140, Potassium 4.0, Chloride 105, Carbon Dioxide 23.3, Anion Gap 11, BUN 17, Creatinine 0.75, Estim Creat Clear Calc 97.63, Est GFR (MDRD) Non-Af 91, BUN/Creatinine Ratio 22.0 H, Glucose 202 H, Calcium 9.1, Magnesium 2.1, NT pro BNP II 2358 H Micro: Microbiology 02/28/25 05:21 Mucosa - Nose SARS-CoV-2, Influenza & RSV (PCR) - Final ABG Data ABG results: ABG 02/28/25 05:39 Specimen Type ART Sample Site R Radial pH 7.28 L Bicarbonate Actual 23.1 Total CO2 25 Base Excess -4 L O2 Saturation 92 L O2 % 15.0 ABG pCO2 49.2 H ABG pO2 71 L John Test Positive O2 Delivery Device NRB Vent Mode Not entered Imaging Radiology Impression Chest CTA 02/28/25 05:09 IMPRESSION: 1. No evidence of pulmonary embolus, with limited evaluation of the subsegmental pulmonary arteries in both upper lobes. 2. Worsening bilateral ground-glass opacities, likely changes of pulmonary edema and/or multifocal pneumonia. 3. Bilateral pleural effusions, increased since 02/23/2025. 4. Interlobular septal and peribronchovascular interstitial thickening, likely interstitial edema or infectious/inflammatory process. 5. Right middle lobe nodule, stable since 02/23/2025 and mildly larger since 04/06/2021. The slow growth since 04/06/2021 favors benignity. Reading Location: [id number] Assessment & Plan Assessment/Plan (1) Hypoxia: PLAN: Plan #Acute hypoxic respiratory failure due to acute heart failure with reduced ejection fraction Admit to PCU. Patient was very short of breath on admission and required Airvo. She is currently on Airvo 60 L. She was admitted with a similar complaints just about a week ago. At that time she was found to have non-STEMI. Plan was for her to have cardiac cath. However she could not lay flat after she was taken to the Director Of Design so cardiac cath was aborted Now presents with the above mentioned complaints. Beto segura with IV Lasix 40 mg twice daily. Cardiology consulted. Monitor intake and output. Fluid restriction to 1500 cc daily. Also on Jardiance. Breathing treatments bronchodilators. Titrate oxygen to maintain saturation above 90%. 2D echo from 02/23/2025 during her previous admission showed EF of 35% with stage II diastolic dysfunction and moderate global hypokinesis of the left ventricle as well as mild concentric left ventricular hypertrophy. #History of CAD: As stated was admitted with non-STEMI last time. On aspirin and carvedilol as well as high intensity statin. Also on lisinopril #Type 2 diabetes mellitus, hold metformin. On Lantus 112 units daily. Also on Jardiance. Insulin sliding scale. Accu-Cheks ACHS. Hold Trulicity also. #History of back pain: CT during previous admission showed lumbar spine scoliosis and degeneration mainly of L5-S1. PT OT on board. Fall precautions. #Benign essential hypertension: On carvedilol and lisinopril # Hyperlipidemia: On statin DVT prophylaxis: Lovenox CODE STATUS: Patient counseled extensively about different types of CODE STATUS including full code, DNR CCA and DNR CCA. Patient elects to be full code. Total eihb-gf-etef time 17 minutes. Charges/Coding Visit Charges Inpatient E&M: 17779 Init Hosp L3 Procedures Hospitalists Procedures: 01327 Advncd Care Plan 30 Min
--- NOTE | 2025-02-28 07:29 | EDS_ITS ---
HPI History of Present Illness Chief Complaint: Shortness of Breath Informant: patient and EMS Narrative Narrative: Patient is a 59-year-old female with past medical history of hypertension type 2 diabetes tobacco abuse with recent admission and diagnosis of congestive heart failure. Patient was discharged home just roughly 1 to 2 days ago. She states she has been taking her medications and wearing her oxygen at 2 L as directed. However last night began with increased cough and shortness of breath despite wearing her oxygen and reports she has been bringing up yellowish-green sputum. With worsening shortness of breath and concern for infection EMS was called and she was brought in for evaluation. EMS states when they arrived the patient appeared in respiratory distress but was awake and alert however her pulse ox was approximately 70% on her 2 L [facility] Medical History (Updated 02/28/25 @ 07:[address] Bacilio Mott, DO) Dyslipidemia Trigger ring finger of left hand Obesity Essential hypertension GERD (gastroesophageal reflux disease) Low HDL (under 40) Incisional hernia without obstruction or gangrene Unspecified hereditary and idiopathic peripheral neuropathy Type 2 diabetes mellitus with polyneuropathy Kidney stones Blood clot in vein Hx: UTI (urinary tract infection) Home Medications ?Medication ?Instructions ?Recorded ?Last Taken ?Type albuterol sulfate 90 mcg/actuation 2 puff inhalation Q 4H PRN PRN 04/08/14 04/08/14 02:30 History aerosol inhaler Wheezing calcium 315 mg (as 1 tab PO DAILY 04/08/1403/22 22:00 History citrate)-vitamin D3 6.25 mcg (250 2 ta b unit) tablet lisinopril 10 mg tablet 1 tab PO DAILY 04/07/1703/22 08:00 History 1 tab magnesium citrate 150 ml PO Q6H PRN PRN Consti pation 01/22/19 Unknown Rx #300 mL albuterol sulfate 2.5 mg/3 mL 2.5 mg inhalation Q4H SC N 05/11/19 Unknown History (0.083 %) solution for nebulization shortness of breat h or wheezing alcohol swabs (BD Alcohol Swabs) See Rx Instructions t opical 05/11/19 Unknown History .COMPLEX aspirin 81 mg tablet,delayed 81 mg PO DAILY 05/11/19 U nknown History release (Adult Low Dose Aspirin) atorvastatin 40 mg tablet 40 mg PO DAILY 05/11/19 Unkn own History blood sugar diagnostic (FreeStyle #10 ea 05/11/19 Unkn own History Lite Strips) blood-glucose meter (FreeStyle #1 ea 05/11/19 Unknown History Lite Meter kit) famotidine 20 mg tablet 20 mg PO BID 05/11/19 Unknow n History insulin degludec 100 unit/mL (3 112 unit subcut Q24H 1 Unknown History mL) subcutaneous pen (Tresiba FlexTouch U-100 insulin) lancets 30 gauge (Unilet Super #25 ea 05/11/19 Unknown History Thin Lancets) mupirocin 2 % topical ointment 1 applic topical BID Unknown History pen needle, diabetic 31 gauge x #30 ea 05/11/19 Unknow n History 10/04 (1st Tier Unifine Pentips) flash glucose sensor (FreeStyle #2 ea 02/26/20 Unknown Rx Michi 14 Day Sensor kit) insulin aspart U-100 100 unit/mL 20 unit (0.2 mL) subc ut TID #24 mL 04/05/20 Unknown Rx (3 mL) subcutaneous pen (Novolog FlexPen U-100 Insulin aspart) metformin 1,000 mg tablet 1,000 mg PO BID diabetes Unknown History cyanocobalamin (vitamin B-12) 2,000 mcg PO DAILY 02/22 Unknown History 1,000 mcg tablet,extended release dulaglutide 4.5 mg/0.5 mL 4.5 mg subcut QWEEK 02/22/25 Unknown History subcutaneous pen injector (Trulicity) empagliflozin 10 mg tablet 25 mg PO BREAKFAST 02/22/25 Unknown History (Jardiance) fluoxetine 20 mg capsule 20 mg PO DAILY 02/22/25 Unkn own History gabapentin 100 mg capsule 100 mg PO QHS 02/22/25 Unkno wn History carvedilol 3.125 mg tablet 3.125 mg PO BIDCM #60 tabs 02/25/25 Unknown Rx Allergy/AdvReac Type Severity Reaction Status Date / Time tramadol Allergy Hives Verified 02/28/25 04:51 albuterol sulfate (From AdvReac Vomiting Verified 02/28/25 04:51 Proventil HFA) ammonium lactate (From AdvReac Other Verified 02/28/25 04:51 Lac-Hydrin) phentermine HCl (From AdvReac Chest Verified 02/28/25 04:51 Adipex-P) tightness Family History Uncle Cancer Sister Diabetes Social History Smoking Status: Former smoker alcohol intake: never substance use type: does not use ROS ROS ED Constitutional Constitutional ED: Denies chills or fever(s) Eyes Eyes: Denies change in vision ENT ENT ED: Reports rhinorrhea and sore throat Cardiovascular Cardiovascular: Reports racing heartbeat; Denies chest pain or palpitations Respiratory/Chest Respiratory/Chest: Reports cough and dyspnea Gastrointestinal Gastrointestinal: Denies abdominal pain, diarrhea, nausea or vomiting Genitourinary Genitourinary ED: Denies dysuria Musculoskeletal Musculoskeletal: Denies back pain or myalgias Integumentary Denies rash Neurologic Neurologic: Denies headache(s) Hematologic/Lymphatic Hematologic/Lymphatic: Denies easy bleeding or easy bruising Allergic/Immunologic Allergic/Immunologic ED: Denies mouth swelling or tongue swelling EXAM Physical Exam Const Vital Signs: 02/28/25 04:52 02/28/25 04:56 02/28/25 05:15 Temperature 96.6 F L Temperature Source Axillary Pulse Rate 117 H 137 H Respiratory Rate 28 H 32 H Respiratory Effort Short of Breath Labored Accessory Muscle Use Respiratory Depth Shallow Respiratory Pattern Tachypnea Tachypnea Blood Pressure 177/105 H Blood Pressure Mean 129 Pulse Ox 99 Oxygen Delivery Method Nasal Cannula Nasal Cannula Oxygen Flow Rate (L/min) 4 Fraction of Inspired Oxygen (FIO2) 4 02/28/25 05:50 02/28/25 06:00 02/28/25 06:10 Temperature Temperature Source Pulse Rate 108 H 106 H 116 H Respiratory Rate 20 H 25 H 26 H Respiratory Effort Respiratory Depth Respiratory Pattern Tachypnea Blood Pressure 150/106 H 123/78 H Blood Pressure Mean 120 93 Pulse Ox 95 100 93 Oxygen Delivery Method Non-Rebreather Oxygen Flow Rate (L/min) 15 Fraction of Inspired Oxygen (FIO2) 75 02/28/25 07:00 02/28/25 07:00 02/28/25 07:00 Temperature 97.7 F L 97.7 F L Temperature Source Oral Pulse Rate 103 H 103 H 103 H Respiratory Rate 25 H 24 H 24 H Respiratory Effort Respiratory Depth Respiratory Pattern Blood Pressure 113/73 113/73 113/73 Blood Pressure Mean 86 86 86 Pulse Ox 94 94 95 Oxygen Delivery Method CPAP Room Air Oxygen Flow Rate (L/min) Fraction of Inspired Oxygen (FIO2) Positive well nourished, well developed and obese General Appearance ED: well developed; Negative for pallor Nutritional Appearance: obese HEENT HEENT Narrative: No tongue or lip swelling no oral lesions no airway edema or compromise There is cobblestoning noted in the posterior pharynx consistent with sinus drainage No secondary findings in the posterior pharynx to suggest infection Eyes PERRL and EOMs intact bilaterally General Eye ED: Negative for scleral icterus Neck supple Neck Narrative: There is mild JVD noted on right Chest Wall palpation of chest normal Resp Resp Narrative: Patient is an mild to moderate respiratory distress with tachypnea and accessory muscle use Breath sounds are diminished throughout with diffuse expiratory wheeze consistent with history of smoking as well as crackles noted in the bilateral bases Cardio regular rhythm Rate: tachycardic and other Other Details: Tachycardic rate with regular rhythm Radial and carotid pulses are equal and symmetric GI normal to inspection, nondistended, normoactive bowel sounds, non-tender, non- distended and no masses GI Narrative: No voluntary guarding or rigidity or pulsatile mass Auscultation: normoactive bowel sounds Palpation: soft Extremity Extremity Narrative: Trace to +1 pitting edema to the bilateral lower extremities that is equal and symmetric Negative Homans' sign bilaterally Neuro oriented x3, CN's II-XII intact bilaterally and no sensory deficits noted Sensorium / Orientation: alert Motor Exam: strength 5/5 throughout Psych Mood & Affect: anxious Skin no rashes or lesions noted General Skin Exam: Negative for jaundice or pallor MDM MDM MDM Narrative Medical decision making narrative: EMS reported patient was 70% on her 2 L at home. She was given Solu-Medrol and a breathing treatment and arrived to the ER with persistent increased work of breathing but pulse ox was now in the high 80s to low 90s. With concern for potential COPD exacerbation versus pneumonia versus CHF exacerbation I did elect to perform basic laboratory studies and obtain an EKG. as she was just in the hospital there is also concern potential PE with her tachycardia and hypoxia. Therefore CTA was obtained. She is denying any chest pain and was just recently evaluated by cardiology for elevated troponin that had remained flat and therefore it was felt it was secondary to other disease processes and not an acute NC so I felt no need for repeat troponins. The CTA showed no sign of PE or pneumothorax but there are changes consistent with interstitial edema with potential multifocal pneumonia. The patient is bringing up yellowish-green sputum but she does not have a white count and she is not febrile. Therefore we will hold off on antibiotics at this time. Patient was given Ativan secondary to her anxiety and morphine to help relax smooth muscle and reduce work of breathing. As CT scan showed changes consistent/concerning for CHF she was also given IV Lasix and captopril to reduce general fluid volume and afterload. Because of her increased work of breathing despite treatment she had to be transitioned to Airvo. While on high flow nasal cannula she had improvement of her work of breathing and a pulse ox was in the mid to high 90s. Blood work shows no sign of acute blood loss anemia or acute kidney injury and her proBNP is decreasing from the previous day. However the CT scan confirms that the v olume within the lung is more severe which correlates with her increased work of breathing. Therefore at this time as the patient is now requiring a higher amount of noninvasive ventilation and the Airvo and her CT scan is showing worsening interstitial edema versus developing multifocal pneumonia I do not feel she is safe for discharge and therefore contacted the hospitalist for repeat admission. After discussing the case they do agree to accept the patient for continued care. They recommend blood culture and sputum culture be obtained and hold off on antibiotics at this time as her recent echo and physical exam coupled with no fever or leukocytosis would indicate volume overload versus infection as the cause of her dyspnea History & Record Review Discussion w/independent historian: EMS personnel and Patient Lab Data Attestation: I reviewed the patient's lab results. Labs: Laboratory Results - last 24 hr 02/28/25 05:00 WBC 7.9 RBC 4.27 Hgb 13.1 Hct 39.3 MCV 92.0 MCH 30.7 MCHC 33.3 RDW Std Deviation 41.7 RDW Coeff of Brett 12.4 Plt Count 303 MPV 9.7 Immature Gran % (Auto) 0.300 Neut % (Auto) 45.5 L Lymph % (Auto) 39.0 [place] % (Auto) 12.2 H Eos % (Auto) 2.2 Baso % (Auto) 0.8 Absolute Neuts (auto) 3.6 Absolute Lymphs (auto) 3.08 Nucleated RBC % 0 Sodium 140 Potassium 4.0 Chloride 105 Carbon Dioxide 23.3 Anion Gap 11 BUN 17 Creatinine 0.75 Estim Creat Clear Calc 97.63 Est GFR (MDRD) Non-Af 91 BUN/Creatinine Ratio 22.0 H Glucose 202 H Calcium 9.1 Magnesium 2.1 NT pro BNP II 2358 H ABG Data ABG results: ABG 02/28/25 05:39 Specimen Type ART Sample Site R Radial pH 7.28 L Bicarbonate Actual 23.1 Total CO2 25 Base Excess -4 L O2 Saturation 92 L O2 % 15.0 ABG pCO2 49.2 H ABG pO2 71 L John Test Positive O2 Delivery Device NRB Vent Mode Not entered Radiography Diagnostic Testing: Clinical Impression(s) from Imaging Studies Chest CTA 02/28/25 05:09 IMPRESSION: 1. No evidence of pulmonary embolus, with limited evaluation of the subsegmental pulmonary arteries in both upper lobes. 2. Worsening bilateral ground-glass opacities, likely changes of pulmonary edema and/or multifocal pneumonia. 3. Bilateral pleural effusions, increased since 02/23/2025. 4. Interlobular septal and peribronchovascular interstitial thickening, likely interstitial edema or infectious/inflammatory process. 5. Right middle lobe nodule, stable since 02/23/2025 and mildly larger since 04/06/2021. The slow growth since 04/06/2021 favors benignity. Reading Location: [facility] Management Discussion w/another healthcare provider: Hospitalist Discharge Plan Triage Chief Complaint: Shortness of Breath ED Provider: Bacilio Mott Dx/Rx/DC Orders Clinical Impression: Acute CHF, Hypoxemia, HTN (hypertension), DM2 (diabetes mellitus, type 2) Prescriptions: No Action albuterol sulfate 2.5 mg /3 mL (0.083 %) solution for nebulization 2.5 mg INHALATION Q4H PRN (Reason: shortness of breath or wheezing) alcohol swabs [BD Alcohol Swabs] Pads, Medicated See Rx Instructions TOPICAL .COMPLEX Rx Instructions: TOPICAL use 4-5 x qd to check BG and with insulin injections; aspirin [Adult Low Dose Aspirin] 81 mg tablet,delayed release (DR/EC) 81 mg PO DAILY atorvastatin 40 mg tablet 40 mg PO DAILY (DME) FreeStyle Lite Strips Strip See Rx Instructions .ROUTE .MEDSUPPLY Qty: 10 Rx Instructions: use to check BG tid (DME) blood-glucose meter [FreeStyle Lite Meter] Kit See Rx Instructions .ROUTE .MEDSUPPLY Qty: 1 Rx Instructions: As directed (DME) pen needle, diabetic [1st Tier Unifine Pentips] 31 gauge x 3/16 needle See Rx Instructions .ROUTE .MEDSUPPLY Qty: 30 Rx Instructions: use 4 x qd to inject insulin famotidine 20 mg tablet 20 mg PO BID insulin degludec [Tresiba FlexTouch U-100] 100 unit/mL (3 mL) insulin pen 112 unit SC Q24H mupirocin 2 % ointment 1 applic TOPICAL BID (DME) lancets [Unilet Super Thin Lancets] 30 gauge misc See Rx Instructions .ROUTE .MEDSUPPLY Qty: 25 Rx Instructions: use to check BG 1 x qd (DME) FreeStyle Michi 14 Day Sensor Kit See Rx Instructions .ROUTE .MEDSUPPLY Qty: 2 6RF Rx Instructions: As directed metformin 1,000 mg tablet 1,000 mg PO BID albuterol sulfate 1 INHALER inhaler 2 puff inhalation Q4H PRN PRN (Reason: Wheezing) Patient Comments: ASTHMA calcium citrate-vitamin D3 1 EACH tablet 1 tab PO DAILY Patient Comments: SUPPLEMENT lisinopril 10 MG tablet 1 tab PO DAILY Patient Comments: TAKE 1 TABLET EVERY DAY magnesium citrate 300 ML solution 150 ml PO Q6H PRN PRN (Reason: Constipation) Qty: 300 0RF cyanocobalamin (vitamin B-12) 1,000 mcg tablet extended release 2,000 mcg PO DAILY Jardiance 10 mg tablet 25 mg PO BREAKFAST Trulicity 4.5 mg/0.5 mL pen injector 4.5 mg subcut QWEEK Patient Comments: SUNDAYS fluoxetine 20 mg capsule 20 mg PO DAILY gabapentin 100 mg capsule 100 mg PO QHS carvedilol 3.125 mg Tablet 3.125 mg PO BIDCM Qty: 60 2RF Novolog FlexPen U-100 Insulin 100 unit/mL (3 mL) insulin pen 20 unit SC TID MDD 80 Qty: 24 4RF Rx Instructions: plus sliding scale Primary Care Provider: Jese Zheng Referrals: Jese Zheng DO [Primary Care Provider] - Print Language: Telugu Disposition Disposition: Acute Care Hospital [facility]
--- OUTSIDE RECORDS SUMMARY | 2025-02-28 07:57 | XMS RPT_ITS | CCD ---
Author Organization [facility] Care Team Providers Care Cold Press Loader Name Role Phone Jese Zheng DO Primary Care Provider [facility], Shayan Unavailable ELENA SALMON Attending UnavailBRANDY Rowe Referring Unavailable JESE ZHENG Primary Care Unavailable Jese Zheng DO Primary Care Provider [facility], Shayan Unavailable [facility], Susana Unavailable [facility], Shayan [facility], Susana Unavailable JESE ZHENG Referring Unavailable JESE ZHENG Primary Care Unavailable Jese Zheng DO Primary Care Provider JESE ZHENG Referring Unavailable JESE ZHENG Primary Care Unavailable Louise ENERGY BROKER.MOTOR BUS DRIVERCorrine Unavailable Juliana ENERGY BROKER.Ankita URBINA Unavailable Sofia ENERGY BROKER.Natali URBINA Unavailable Dr. Jese Zheng DO Primary Care Provider [phone] Dr. John Catherine MD Emergency Provider Joyce DELACRUZ, Dr. Chawla Attending Provider [phone] Joyce DELACRUZ, Dr. Chawla Admit Provider Dr. Denton Cook MD Other Provider Javier DELACRUZ, Dr. Clarissa White Attending Provider Rodri SAGE, Dr. Mckinney Other Provider Winston DELACRUZ, Dr. Raya Other Provider Garrett DELACRUZ, Dr. Farooq Other Provider Leigh DELACRUZ, Dr. Horn Other Provider Juju Love MD Other Provider Dahiana COPE, Gopal Other Provider Nahum DELACRUZ, Dr. Rosenberg Other Provider Chilo DELACRUZ, Amrita Other Provider MARITZA CHAMORRO MD Other Provider Naa DELACRUZ, Gayathri Other Provider Rashi DELACRUZ, Dr. Hughes Other Provider Tiera DELACRUZ, Gus Other Provider [phone] Ritchie DELACRUZ, Mary Kay Other Provider Rodri SAGE, Dr. Mckinney Attending Provider Winston DELACRUZ, Dr. Raya Attending Provider Javier DELACRUZ, Dr. Clarissa White Other Provider [facility] Jese Primary Care Unavailable Faye Mace Attending Unavailable Cook, Denton Admitting Unavailable Joyce, Denton Consulting Unavailable Winston, Leonia Consulting Unavailable Capri Tucker Consulting Unavailable Justina Abraham Consulting Unavailable Juju Love Consulting Unavailable Gopal Talbot Consulting Unavailable Chet Sidhu Consulting Unavailable Amrita Woo Consulting Unavailable MARITZA CHAMORRO Consulting Unavailable Gayathri Jacome Consulting Unavailable Ellen Markham Consulting Unavailable Gus Mott Consulting Unavailable Mary Kay Dugan Consulting Unavailable Faye Mace Consulting Unavailable Winston, Elver Attending Unavailable [facility] Jese Primary Care Unavailable Joyce Denton Attending Unavailable Clarissa Herrera Cindy Attending Unavailable Javier, Clarissa Cindy Consulting Unavailable DoreenamClarissa Attending Unavailable [facility] Jese Primary Care Unavailable Cook, Denton Admitting [...] (2 sources) Albuterol Drug Allergy 7 Vomiting [facility] Cephalosporins (antibiotic) (2 sources) cefdinir Drug Allergy 9 Itching [facility] Work Phone: Opioid Agonists (2 sources) traMADol Drug Allergy 5 [facility] (20 sources) Albuterol; Translations: [ALBUTEROL SULFATE] Drug Allergy 7 Vomiting [facility] (20 sources) cefdinir; Translations: [CEFDINIR] Drug Allergy 9 Itching [facility] Work Phone: (20 sources) traMADol; Translations: [TRAMADOL] Drug Allergy 5 [facility] (20 sources) lac hydrin [Other] Propensity to adverse reactions 7 [facility] Work Phone: (2 sources) OTHER; Translations: [OTHER] Propensity to adverse reactions (disorder) 7 [facility] Repository (4 sources) Lactate; Translations: [ammonium lactate] Drug Allergy 1 Other [facility] (4 sources) Phentermine; Translations: [phentermine HCl] Drug Allergy 1 Chest tightness [facility] (1 source) Albuterol Drug Allergy 5 [facility] Repository (1 source) traMADol Drug Allergy 5 [facility] Repository Medications Current Medications Medication Drug Class(es) [...] 27, 2018 1:00am July 29, 2018 1:12am [id number] 200 actuat albuterol 0.09 mg/actuat metered dose [...] Start: 04-08-2014 take 2 tablets by mo [facility] twice daily Calcium Citrate-Vitamin D3 Active 2 TABLET PO TWICE A DAY April 08, 2014 12:00am Comment on above: TAKE 2 TABLETS BY MO [facility] TWICE DAILY Take 1 tablet by [facility] once daily. carvedilol 3.125 mg oral [...] Start: 05-05-2024 take 1 capsule by mo [facility] every week ergocalciferol 50,000 unit capsule (VITAMIN [...] Comment on above: Take 1 capsule by [facility] once daily. In the morning, for depression [...] (BAQSIMI) 3 mg/actuation nasal spray Use 1 [place] in the nose as needed for low blood sugar. May repeat after 15 minutes using a new device if there is no response. 1 Each 3 04/27/2022 Active Comment on above: Use 1 [place] in the n ose as needed for [...] Comment on above: Take 1 capsule by [facility] twice daily for 7 days. ofloxacin 3 [...] sharp s as directed. polyethylene glycol 3350 41794 mg powder for oral solution (20 sources) [...] Comment on above: Take 1 tablet by [facility] twice daily for 10 days. vitamin [...] Comment on above: Take 2 tablets by [facility] once daily. Completed/Discontinued Medications Medication Drug Class(es) [...] Comment on above: Take 1 capsule by [facility] once daily. cyclobenzaprine hydrochloride 10 mg oral [...] per enteric contrast guidelines Flash Glucose Scanning [place] (Freestyle Michi 10 Day [place]) [facility] (3 sources) Start: 9 End: 0 Flash Glucose Scanning [place] (Freestyle Michi 10 Day [place]) [facility] Discontinued 0 .ROUTE .MEDSUPPLY 1 0 May 11, 2019 12:00am February 26, 2020 4:35pm As directed Start: 05-11-2019 End: 02-26-2020 Flash Glucose Scanning [place] (Freestyle Michi 10 Day [place]) [facility] Discontinued 0 .ROUTE .MEDSUPPLY 1 May 11, [...] scanning reader (FREESTYLE MICHI 14 DAY READER) [facility] (20 sources) Start: 11-23-2019 End: 03-25-2023 flash glucose scanning reader (FREESTYLE MICHI 14 DAY READER) [facility] 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 1 Each 0 11/23/2019 03/25/2023 Discontinued Start: 11-23-2019 flash glucose scanning reader (FREESTYLE MICHI 14 DAY READER) [facility] Indications: Uncontrolled type 2 diabetes mellitus with [...] on above: Take 4 tablets by mo [facility] as needed. For blood sugars less than [...] Comment on above: Take 2 tablets by [facility] twice daily for 14 days. 3 ml [...] 1:25pm Oral Medication Containers ( BD [employer] PHYSICIAN) misc (20 sources) Start: 09-27-2016 End: 03-22-2022 Oral Medication Containers ( [facility] [employer] DE[employer] PHYSICIAN) misc Use as instructed for DM supply disposal DM: yes Insulin: yes DX:11.9 1 Each 09/27/2016 03/22/2022 Discontinued Start: 09-27-2016 Oral Medicatio n Containers (BD [employer] DEPARTMENT PHYSICIAN) misc Use as instructed for DM supply [...] scoop PRN cons tipation polyethylene glycol 3350 [id number] mg / potassium chloride 2970 mg / sodium bicarbonate 6740 mg / sodium chloride 5860 mg / sodium sulfate 56121 mg powder for oral solution (11 sources) [...] (20 sources) Patient encounter status; 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 [facility] [address] BUN/CRE Normal 10-20 [facility] Comment on above: Result Comment: Canc elled via OM: Order cancelled - Patient discharged Performed By: #### L 100.0100, L500.2500 ####[facility] [address] [facility] [address] Calcium Normal 7.6-11.0 [facility] Comment on above: Result Comment: Canc elled via OM: Order cancelled - Patient discharged Performed By: #### L 100.0100, L500.2500 ####[facility] [address] [place], [address] CL Normal 98-108 [facility] Comment on above: Result Comment: Canc elled via OM: Order cancelled - Patient discharged Performed By: #### L 100.0100, L500.2500 ####[facility] [address] [facility] [address] CO2 Normal 21.0-32.0 [facility] Comment on above: Result Comment: Canc elled via OM: Order cancelled - Patient discharged Performed By: #### L 100.0100, L500.2500 ####[facility] [address] [place], [address] CREAT,SERUM Normal 0.70-1.20 [facility] Comment on above: Result Comment: Canc elled via OM: Order cancelled - Patient discharged Performed By: #### L 100.0100, L500.2500 ####[facility] [address] [place], [address] eGFR Normal >60 [facility] Comment on above: Result Comment: Canc elled via OM: Order cancelled - Patient discharged Performed By: #### L 100.0100, L500.2500 ####[facility] [address] [place], [address] GAP Normal 5-15 [facility] Comment on above: Result Comment: Canc elled via OM: Order cancelled - Patient discharged Performed By: #### L 100.0100, L500.2500 ####[facility] [address] [place], [address] GLU Normal 70-99 [facility] Comment on above: Result Comment: Canc elled via OM: Order cancelled - Patient discharged Performed By: #### L 100.0100, L500.2500 ####[facility] [address] [place], [address] Potassium Normal 3.3-5.1 [facility] Comment on above: Result Comment: Canc elled via OM: Order cancelled - Patient discharged Performed By: #### L 100.0100, L500.2500 ####[facility] [address] [place], [address] Basic Metabolic Profile (BMP) Normal 133-145 [facility] Comment on above: Result Comment: Canc elled via OM: Order cancelled - Patient discharged Performed By: #### L 100.0100, L500.2500 ####[facility] [address] [place], [address] CBC W/Diff, Automatedon 08-1 Absolute Neut Normal 2.0-7.7 [facility] Comment on above: Result Comment: Canc elled via OM: Order cancelled - Patient discharged Performed By: #### L 100.0100, L500.2500 ####[facility] [address] [place], [address] HCT Normal 37-47 [facility] Comment on above: Result Comment: Canc elled via OM: Order cancelled - Patient discharged Performed By: #### L 100.0100, L500.2500 ####[facility] [address] [place], [address] HGB Normal 12.0-15.0 [facility] Comment on above: Result Comment: Canc elled via OM: Order cancelled - Patient discharged Performed By: #### L 100.0100, L500.2500 ####[facility] [address] [place], [address] MCH Normal 27.0-32.0 [facility] Comment on above: Result Comment: Canc elled via OM: Order cancelled - Patient discharged Performed By: #### L 100.0100, L500.2500 ####[facility] [address] [place], [address] MCHC Normal 32-36 [facility] Comment on above: Result Comment: Canc elled via OM: Order cancelled - Patient discharged Performed By: #### L 100.0100, L500.2500 ####[facility] [address] [place], [address] MCV Normal 81-99 [facility] Comment on above: Result Comment: Canc elled via OM: Order cancelled - Patient discharged Performed By: #### L 100.0100, L500.2500 ####[facility] [address] [place], [address] NEUT% Normal 47-70 [facility] Comment on above: Result Comment: Canc elled via OM: Order cancelled - Patient discharged Performed By: #### L 100.0100, L500.2500 ####[facility] [address] [place], [address] PLT Normal 150-450 [facility] Comment on above: Result Comment: Canc elled via OM: Order cancelled - Patient discharged Performed By: #### L 100.0100, L500.2500 ####[facility] [address] [place], [address] RBC Normal 4.2-5.4 [facility] Comment on above: Result Comment: Canc elled via OM: Order cancelled - Patient discharged Performed By: #### L 100.0100, L500.2500 ####[facility] [address] [place], [address] RDW CV Normal 11.6-14.6 [facility] Comment on above: Result Comment: Canc elled via OM: Order cancelled - Patient discharged Performed By: #### L 100.0100, L500.2500 ####[facility] [address] [place], [address] RDW SD Normal 35.1-43.9 [facility] Comment on above: Result Comment: Canc elled via OM: Order cancelled - Patient discharged Performed By: #### L 100.0100, L500.2500 ####[facility] [address] [place], [address] WBC Normal 4.4-11.0 [facility] Comment on above: Result Comment: Canc elled via OM: Order cancelled - Patient discharged Performed By: #### L 100.0100, L500.2500 ####[facility] [address] [place], [address] Basic Metabolic Profile (BMP )on 03-03-2025 BUN Normal 4-19 [facility] Comment on above: Result Comment: Canc elled via OM: Order cancelled - Patient discharged Performed By: #### L 300.3900, L500.2500, L501.5200, L501.2300, L100.0100 #### [facility] [address] [place], [address] BUN/CRE Normal 10-20 [facility] Comment on above: Result Comment: Canc elled via OM: Order cancelled - Patient discharged Performed By: #### L 300.3900, L500.2500, L501.5200, L501.2300, L100.0100 #### [facility] [address] [place], [address] Calcium Normal 7.6-11.0 [facility] Comment on above: Result Comment: Canc elled via OM: Order cancelled - Patient discharged Performed By: #### L 300.3900, L500.2500, L501.5200, L501.2300, L100.0100 #### [facility] [address] [place], [address] CL Normal 98-108 [facility] Comment on above: Result Comment: Canc elled via OM: Order cancelled - Patient discharged Performed By: #### L 300.3900, L500.2500, L501.5200, L501.2300, L100.0100 #### [facility] [address] [place], [address] CO2 Normal 21.0-32.0 [facility] Comment on above: Result Comment: Canc elled via OM: Order cancelled - Patient discharged Performed By: #### L 300.3900, L500.2500, L501.5200, L501.2300, L100.0100 #### [facility] [address] [place], [address] CREAT,SERUM Normal 0.70-1.20 [facility] Comment on above: Result Comment: Canc elled via OM: Order cancelled - Patient discharged Performed By: #### L 300.3900, L500.2500, L501.5200, L501.2300, L100.0100 #### [facility] [address] [place], [address] eGFR Normal >60 [facility] Comment on above: Result Comment: Canc elled via OM: Order cancelled - Patient discharged Performed By: #### L 300.3900, L500.2500, L501.5200, L501.2300, L100.0100 #### [facility] [address] [place], [address] GAP Normal 5-15 [facility] Comment on above: Result Comment: Canc elled via OM: Order cancelled - Patient discharged Performed By: #### L 300.3900, L500.2500, L501.5200, L501.2300, L100.0100 #### [facility] [address] [place], [address] GLU Normal 70-99 [facility] Comment on above: Result Comment: Canc elled via OM: Order cancelled - Patient discharged Performed By: #### L 300.3900, L500.2500, L501.5200, L501.2300, L100.0100 #### [facility] [address] [place], [address] Potassium Normal 3.3-5.1 [facility] Comment on above: Result Comment: Canc elled via OM: Order cancelled - Patient discharged Performed By: #### L 300.3900, L500.2500, L501.5200, L501.2300, L100.0100 #### [facility] [address] [place], [address] Basic Metabolic Profile (BMP) Normal 133-145 [facility] Comment on above: Result Comment: Canc elled via OM: Order cancelled - Patient discharged Performed By: #### L 300.3900, L500.2500, L501.5200, L501.2300, L100.0100 #### [facility] [address] [place], [address] CBC W/Diff, Automatedon 08-1 Absolute Neut Normal 2.0-7.7 [facility] Comment on above: Result Comment: Canc elled via OM: Order cancelled - Patient discharged Performed By: #### L 300.3900, L500.2500, L501.5200, L501.2300, L100.0100 #### [facility] [address] [place], [address] HCT Normal 37-47 [facility] Comment on above: Result Comment: Canc elled via OM: Order cancelled - Patient discharged Performed By: #### L 300.3900, L500.2500, L501.5200, L501.2300, L100.0100 #### [facility] [address] [place], [address] HGB Normal 12.0-15.0 [facility] Comment on above: Result Comment: Canc elled via OM: Order cancelled - Patient discharged Performed By: #### L 300.3900, L500.2500, L501.5200, L501.2300, L100.0100 #### [facility] [address] [place], [address] MCH Normal 27.0-32.0 [facility] Comment on above: Result Comment: Canc elled via OM: Order cancelled - Patient discharged Performed By: #### L 300.3900, L500.2500, L501.5200, L501.2300, L100.0100 #### [facility] [address] [place], [address] MCHC Normal 32-36 [facility] Comment on above: Result Comment: Canc elled via OM: Order cancelled - Patient discharged Performed By: #### L 300.3900, L500.2500, L501.5200, L501.2300, L100.0100 #### [facility] [address] [place], [address] MCV Normal 81-99 [facility] Comment on above: Result Comment: Canc elled via OM: Order cancelled - Patient discharged Performed By: #### L 300.3900, L500.2500, L501.5200, L501.2300, L100.0100 #### [facility] [address] [place], [address] NEUT% Normal 47-70 [facility] Comment on above: Result Comment: Canc elled via OM: Order cancelled - Patient discharged Performed By: #### L 300.3900, L500.2500, L501.5200, L501.2300, L100.0100 #### [facility] [address] [place], [address] PLT Normal 150-450 [facility] Comment on above: Result Comment: Canc elled via OM: Order cancelled - Patient discharged Performed By: #### L 300.3900, L500.2500, L501.5200, L501.2300, L100.0100 #### [facility] [address] [place], [address] RBC Normal 4.2-5.4 [facility] Comment on above: Result Comment: Canc elled via OM: Order cancelled - Patient discharged Performed By: #### L 300.3900, L500.2500, L501.5200, L501.2300, L100.0100 #### [facility] [address] [place], [address] RDW CV Normal 11.6-14.6 [facility] Comment on above: Result Comment: Canc elled via OM: Order cancelled - Patient discharged Performed By: #### L 300.3900, L500.2500, L501.5200, L501.2300, L100.0100 #### [facility] [address] [place], [address] RDW SD Normal 35.1-43.9 [facility] Comment on above: Result Comment: Canc elled via OM: Order cancelled - Patient discharged Performed By: #### L 300.3900, L500.2500, L501.5200, L501.2300, L100.0100 #### [facility] [address] [place], [address] WBC Normal 4.4-11.0 [facility] Comment on above: Result Comment: Canc elled via OM: Order cancelled - Patient discharged Performed By: #### L 300.3900, L500.2500, L501.5200, L501.2300, L100.0100 #### [facility] [address] [place], [address] Basic Metabolic Profile (BMP )on 03-02-2025 BUN Normal 4-19 [facility] Comment on above: Result Comment: Canc elled via OM: Order cancelled - Patient discharged Performed By: #### L 500.2500, L100.0100 ####[facility] [address] [place], [address] BUN/CRE Normal 10-20 [facility] Comment on above: Result Comment: Canc elled via OM: Order cancelled - Patient discharged Performed By: #### L 500.2500, L100.0100 ####[facility] [address] [place], [address] Calcium Normal 7.6-11.0 [facility] Comment on above: Result Comment: Canc elled via OM: Order cancelled - Patient discharged Performed By: #### L 500.2500, L100.0100 ####[facility] [address] [place], [address] CL Normal 98-108 [facility] Comment on above: Result Comment: Canc elled via OM: Order cancelled - Patient discharged Performed By: #### L 500.2500, L100.0100 ####[facility] [address] [place], [address] CO2 Normal 21.0-32.0 [facility] Comment on above: Result Comment: Canc elled via OM: Order cancelled - Patient discharged Performed By: #### L 500.2500, L100.0100 ####[facility] [address] [place], [address] CREAT,SERUM Normal 0.70-1.20 [facility] Comment on above: Result Comment: Canc elled via OM: Order cancelled - Patient discharged Performed By: #### L 500.2500, L100.0100 ####[facility] [address] [place], [address] eGFR Normal >60 [facility] Comment on above: Result Comment: Canc elled via OM: Order cancelled - Patient discharged Performed By: #### L 500.2500, L100.0100 ####[facility] [address] [place], [address] GAP Normal 5-15 [facility] Comment on above: Result Comment: Canc elled via OM: Order cancelled - Patient discharged Performed By: #### L 500.2500, L100.0100 ####[facility] [address] [place], [address] GLU Normal 70-99 [facility] Comment on above: Result Comment: Canc elled via OM: Order cancelled - Patient discharged Performed By: #### L 500.2500, L100.0100 ####[facility] [address] [place], [address] Potassium Normal 3.3-5.1 [facility] Comment on above: Result Comment: Canc elled via OM: Order cancelled - Patient discharged Performed By: #### L 500.2500, L100.0100 ####[facility] [address] [place], [address] Basic Metabolic Profile (BMP) Normal 133-145 [facility] Comment on above: Result Comment: Canc elled via OM: Order cancelled - Patient discharged Performed By: #### L 500.2500, L100.0100 ####[facility] [address] [place], [address] CBC W/Diff, Automatedon 02-19 Absolute Neut Normal 2.0-7.7 [facility] Comment on above: Result Comment: Canc elled via OM: Order cancelled - Patient discharged Performed By: #### L 500.2500, L100.0100 ####[facility] [address] [place], [address] HCT Normal 37-47 [facility] Comment on above: Result Comment: Canc elled via OM: Order cancelled - Patient discharged Performed By: #### L 500.2500, L100.0100 ####[facility] [address] [place], [address] HGB Normal 12.0-15.0 [facility] Comment on above: Result Comment: Canc elled via OM: Order cancelled - Patient discharged Performed By: #### L 500.2500, L100.0100 ####[facility] [address] [place], [address] MCH Normal 27.0-32.0 [facility] Comment on above: Result Comment: Canc elled via OM: Order cancelled - Patient discharged Performed By: #### L 500.2500, L100.0100 ####[facility] [address] [place], [address] MCHC Normal 32-36 [facility] Comment on above: Result Comment: Canc elled via OM: Order cancelled - Patient discharged Performed By: #### L 500.2500, L100.0100 ####[facility] [address] [place], [address] MCV Normal 81-99 [facility] Comment on above: Result Comment: Canc elled via OM: Order cancelled - Patient discharged Performed By: #### L 500.2500, L100.0100 ####[facility] [address] [place], [address] NEUT% Normal 47-70 [facility] Comment on above: Result Comment: Canc elled via OM: Order cancelled - Patient discharged Performed By: #### L 500.2500, L100.0100 ####[facility] [address] [place], [address] PLT Normal 150-450 [facility] Comment on above: Result Comment: Canc elled via OM: Order cancelled - Patient discharged Performed By: #### L 500.2500, L100.0100 ####[facility] [address] [place], [address] RBC Normal 4.2-5.4 [facility] Comment on above: Result Comment: Canc elled via OM: Order cancelled - Patient discharged Performed By: #### L 500.2500, L100.0100 ####[facility] [address] [place], [address] RDW CV Normal 11.6-14.6 [facility] Comment on above: Result Comment: Canc elled via OM: Order cancelled - Patient discharged Performed By: #### L 500.2500, L100.0100 ####[facility] [address] [place], [address] RDW SD Normal 35.1-43.9 [facility] Comment on above: Result Comment: Canc elled via OM: Order cancelled - Patient discharged Performed By: #### L 500.2500, L100.0100 ####[facility] [address] [place], [address] WBC Normal 4.4-11.0 [facility] Comment on above: Result Comment: Canc elled via OM: Order cancelled - Patient discharged Performed By: #### L 500.2500, L100.0100 ####[facility] [address] [place], [address] Basic Metabolic Profile (BMP )on 03-01-2025 BUN Normal 4-19 [facility] Comment on above: Result Comment: Canc elled via OM: Order cancelled - Patient discharged Performed By: #### L 300.3900, L500.2500, L501.5200, L501.2300, L100.0100 #### [facility] [address] [place], [address] BUN/CRE Normal 10-20 [facility] Comment on above: Result Comment: Canc elled via OM: Order cancelled - Patient discharged Performed By: #### L 300.3900, L500.2500, L501.5200, L501.2300, L100.0100 #### [facility] [address] [place], [address] Calcium Normal 7.6-11.0 [facility] Comment on above: Result Comment: Canc elled via OM: Order cancelled - Patient discharged Performed By: #### L 300.3900, L500.2500, L501.5200, L501.2300, L100.0100 #### [facility] [address] [place], [address] CL Normal 98-108 [facility] Comment on above: Result Comment: Canc elled via OM: Order cancelled - Patient discharged Performed By: #### L 300.3900, L500.2500, L501.5200, L501.2300, L100.0100 #### [facility] [address] [place], [address] CO2 Normal 21.0-32.0 [facility] Comment on above: Result Comment: Canc elled via OM: Order cancelled - Patient discharged Performed By: #### L 300.3900, L500.2500, L501.5200, L501.2300, L100.0100 #### [facility] [address] [place], [address] CREAT,SERUM Normal 0.70-1.20 [facility] Comment on above: Result Comment: Canc elled via OM: Order cancelled - Patient discharged Performed By: #### L 300.3900, L500.2500, L501.5200, L501.2300, L100.0100 #### [facility] [address] [place], [address] eGFR Normal >60 [facility] Comment on above: Result Comment: Canc elled via OM: Order cancelled - Patient discharged Performed By: #### L 300.3900, L500.2500, L501.5200, L501.2300, L100.0100 #### [facility] [address] [place], [address] GAP Normal 5-15 [facility] Comment on above: Result Comment: Canc elled via OM: Order cancelled - Patient discharged Performed By: #### L 300.3900, L500.2500, L501.5200, L501.2300, L100.0100 #### [facility] [address] [place], [address] GLU Normal 70-99 [facility] Comment on above: Result Comment: Canc elled via OM: Order cancelled - Patient discharged Performed By: #### L 300.3900, L500.2500, L501.5200, L501.2300, L100.0100 #### [facility] [address] [place], [address] Potassium Normal 3.3-5.1 [facility] Comment on above: Result Comment: Canc elled via OM: Order cancelled - Patient discharged Performed By: #### L 300.3900, L500.2500, L501.5200, L501.2300, L100.0100 #### [facility] [address] [place], [address] Basic Metabolic Profile (BMP) Normal 133-145 [facility] Comment on above: Result Comment: Canc elled via OM: Order cancelled - Patient discharged Performed By: #### L 300.3900, L500.2500, L501.5200, L501.2300, L100.0100 #### [facility] [address] [place], [address] CBC W/Diff, Automatedon 08- Absolute Neut Normal 2.0-7.7 [facility] Comment on above: Result Comment: Canc elled via OM: Order cancelled - Patient discharged Performed By: #### L 300.3900, L500.2500, L501.5200, L501.2300, L100.0100 #### [facility] [address] [place], [address] HCT Normal 37-47 [facility] Comment on above: Result Comment: Canc elled via OM: Order cancelled - Patient discharged Performed By: #### L 300.3900, L500.2500, L501.5200, L501.2300, L100.0100 #### [facility] [address] [place], [address] HGB Normal 12.0-15.0 [facility] Comment on above: Result Comment: Canc elled via OM: Order cancelled - Patient discharged Performed By: #### L 300.3900, L500.2500, L501.5200, L501.2300, L100.0100 #### [facility] [address] [place], [address] MCH Normal 27.0-32.0 [facility] Comment on above: Result Comment: Canc elled via OM: Order cancelled - Patient discharged Performed By: #### L 300.3900, L500.2500, L501.5200, L501.2300, L100.0100 #### [facility] [address] [place], [address] MCHC Normal 32-36 [facility] Comment on above: Result Comment: Canc elled via OM: Order cancelled - Patient discharged Performed By: #### L 300.3900, L500.2500, L501.5200, L501.2300, L100.0100 #### [facility] [address] [place], [address] MCV Normal 81-99 [facility] Comment on above: Result Comment: Canc elled via OM: Order cancelled - Patient discharged Performed By: #### L 300.3900, L500.2500, L501.5200, L501.2300, L100.0100 #### [facility] [address] [place], [address] NEUT% Normal 47-70 [facility] Comment on above: Result Comment: Canc elled via OM: Order cancelled - Patient discharged Performed By: #### L 300.3900, L500.2500, L501.5200, L501.2300, L100.0100 #### [facility] [address] [place], [address] PLT Normal 150-450 [facility] Comment on above: Result Comment: Canc elled via OM: Order cancelled - Patient discharged Performed By: #### L 300.3900, L500.2500, L501.5200, L501.2300, L100.0100 #### [facility] [address] [place], [address] RBC Normal 4.2-5.4 [facility] Comment on above: Result Comment: Canc elled via OM: Order cancelled - Patient discharged Performed By: #### L 300.3900, L500.2500, L501.5200, L501.2300, L100.0100 #### [facility] [address] [place], [address] RDW CV Normal 11.6-14.6 [facility] Comment on above: Result Comment: Canc elled via OM: Order cancelled - Patient discharged Performed By: #### L 300.3900, L500.2500, L501.5200, L501.2300, L100.0100 #### [facility] [address] [place], [address] RDW SD Normal 35.1-43.9 [facility] Comment on above: Result Comment: Canc elled via OM: Order cancelled - Patient discharged Performed By: #### L 300.3900, L500.2500, L501.5200, L501.2300, L100.0100 #### [facility] [address] [place], [address] WBC Normal 4.4-11.0 [facility] Comment on above: Result Comment: Canc elled via OM: Order cancelled - Patient discharged Performed By: #### L 300.3900, L500.2500, L501.5200, L501.2300, L100.0100 #### [facility] [address] [place], [address] Basic Metabolic Profile (BMP )on 02-28-2025 BUN Normal 4-19 [facility] Comment on above: Result Comment: Canc elled via OM: Order cancelled - Patient discharged Performed By: #### L 100.0100, L500.2500 ####[facility] [address] [place], [address] BUN/CRE Normal 10-20 [facility] Comment on above: Result Comment: Canc elled via OM: Order cancelled - Patient discharged Performed By: #### L 100.0100, L500.2500 ####[facility] [address] [place], [address] Calcium Normal 7.6-11.0 [facility] Comment on above: Result Comment: Canc elled via OM: Order cancelled - Patient discharged Performed By: #### L 100.0100, L500.2500 ####[facility] [address] [place], [address] CL Normal 98-108 [facility] Comment on above: Result Comment: Canc elled via OM: Order cancelled - Patient discharged Performed By: #### L 100.0100, L500.2500 ####[facility] [address] [place], [address] CO2 Normal 21.0-32.0 [facility] Comment on above: Result Comment: Canc elled via OM: Order cancelled - Patient discharged Performed By: #### L 100.0100, L500.2500 ####[facility] [address] [place], [address] CREAT,SERUM Normal 0.70-1.20 [facility] Comment on above: Result Comment: Canc elled via OM: Order cancelled - Patient discharged Performed By: #### L 100.0100, L500.2500 ####[facility] [address] [place], [address] eGFR Normal >60 [facility] Comment on above: Result Comment: Canc elled via OM: Order cancelled - Patient discharged Performed By: #### L 100.0100, L500.2500 ####[facility] [address] [place], [address] GAP Normal 5-15 [facility] Comment on above: Result Comment: Canc elled via OM: Order cancelled - Patient discharged Performed By: #### L 100.0100, L500.2500 ####[facility] [address] [place], [address] GLU Normal 70-99 [facility] Comment on above: Result Comment: Canc elled via OM: Order cancelled - Patient discharged Performed By: #### L 100.0100, L500.2500 ####[facility] [address] [place], [address] Potassium Normal 3.3-5.1 [facility] Comment on above: Result Comment: Canc elled via OM: Order cancelled - Patient discharged Performed By: #### L 100.0100, L500.2500 ####[facility] [address] [place], [address] Basic Metabolic Profile (BMP) Normal 133-145 [facility] Comment on above: Result Comment: Canc elled via OM: Order cancelled - Patient discharged Performed By: #### L 100.0100, L500.2500 ####[facility] [address] [place], [address] CBC W/Diff, Automatedon 08-1 0-2024 Absolute Neut Normal 2.0-7.7 [facility] Comment on above: Result Comment: Canc elled via OM: Order cancelled - Patient discharged Performed By: #### L 100.0100, L500.2500 ####[facility] [address] [place], [address] HCT Normal 37-47 [facility] Comment on above: Result Comment: Canc elled via OM: Order cancelled - Patient discharged Performed By: #### L 100.0100, L500.2500 ####[facility] [address] [place], [address] HGB Normal 12.0-15.0 [facility] Comment on above: Result Comment: Canc elled via OM: Order cancelled - Patient discharged Performed By: #### L 100.0100, L500.2500 ####[facility] [address] [place], [address] MCH Normal 27.0-32.0 [facility] Comment on above: Result Comment: Canc elled via OM: Order cancelled - Patient discharged Performed By: #### L 100.0100, L500.2500 ####[facility] [address] [place], [address] MCHC Normal 32-36 [facility] Comment on above: Result Comment: Canc elled via OM: Order cancelled - Patient discharged Performed By: #### L 100.0100, L500.2500 ####[facility] [address] [place], [address] MCV Normal 81-99 [facility] Comment on above: Result Comment: Canc elled via OM: Order cancelled - Patient discharged Performed By: #### L 100.0100, L500.2500 ####[facility] [address] [place], [address] NEUT% Normal 47-70 [facility] Comment on above: Result Comment: Canc elled via OM: Order cancelled - Patient discharged Performed By: #### L 100.0100, L500.2500 ####[facility] [address] [place], [address] PLT Normal 150-450 [facility] Comment on above: Result Comment: Canc elled via OM: Order cancelled - Patient discharged Performed By: #### L 100.0100, L500.2500 ####[facility] [address] [place], [address] RBC Normal 4.2-5.4 [facility] Comment on above: Result Comment: Canc elled via OM: Order cancelled - Patient discharged Performed By: #### L 100.0100, L500.2500 ####[facility] [address] [place], [address] RDW CV Normal 11.6-14.6 [facility] Comment on above: Result Comment: Canc elled via OM: Order cancelled - Patient discharged Performed By: #### L 100.0100, L500.2500 ####[facility] [address] [place], [address] RDW SD Normal 35.1-43.9 [facility] Comment on above: Result Comment: Canc elled via OM: Order cancelled - Patient discharged Performed By: #### L 100.0100, L500.2500 ####[facility] [address] [place], [address] WBC Normal 4.4-11.0 [facility] Comment on above: Result Comment: Canc elled via OM: Order cancelled - Patient discharged Performed By: #### L 100.0100, L500.2500 ####[facility] [address] [place], [address] Basic Metabolic Profile (BMP )on 02-27-2025 BUN Normal 4-19 [facility] Comment on above: Result Comment: Canc elled via OM: Order cancelled - Patient discharged Performed By: #### L 300.3900, L500.2500, L501.5200, L501.2300, L100.0100 #### [facility] [address] [place], [address] BUN/CRE Normal 10-20 [facility] Comment on above: Result Comment: Canc elled via OM: Order cancelled - Patient discharged Performed By: #### L 300.3900, L500.2500, L501.5200, L501.2300, L100.0100 #### [facility] [address] [place], [address] Calcium Normal 7.6-11.0 [facility] Comment on above: Result Comment: Canc elled via OM: Order cancelled - Patient discharged Performed By: #### L 300.3900, L500.2500, L501.5200, L501.2300, L100.0100 #### [facility] [address] [place], [address] CL Normal 98-108 [facility] Comment on above: Result Comment: Canc elled via OM: Order cancelled - Patient discharged Performed By: #### L 300.3900, L500.2500, L501.5200, L501.2300, L100.0100 #### [facility] [address] [place], [address] CO2 Normal 21.0-32.0 [facility] Comment on above: Result Comment: Canc elled via OM: Order cancelled - Patient discharged Performed By: #### L 300.3900, L500.2500, L501.5200, L501.2300, L100.0100 #### [facility] [address] [place], [address] CREAT,SERUM Normal 0.70-1.20 [facility] Comment on above: Result Comment: Canc elled via OM: Order cancelled - Patient discharged Performed By: #### L 300.3900, L500.2500, L501.5200, L501.2300, L100.0100 #### [facility] [address] [place], [address] eGFR Normal >60 [facility] Comment on above: Result Comment: Canc elled via OM: Order cancelled - Patient discharged Performed By: #### L 300.3900, L500.2500, L501.5200, L501.2300, L100.0100 #### [facility] [address] [place], [address] GAP Normal 5-15 [facility] Comment on above: Result Comment: Canc elled via OM: Order cancelled - Patient discharged Performed By: #### L 300.3900, L500.2500, L501.5200, L501.2300, L100.0100 #### [facility] [address] [place], [address] GLU Normal 70-99 [facility] Comment on above: Result Comment: Canc elled via OM: Order cancelled - Patient discharged Performed By: #### L 300.3900, L500.2500, L501.5200, L501.2300, L100.0100 #### [facility] [address] [place], [address] Potassium Normal 3.3-5.1 [facility] Comment on above: Result Comment: Canc elled via OM: Order cancelled - Patient discharged Performed By: #### L 300.3900, L500.2500, L501.5200, L501.2300, L100.0100 #### [facility] [address] [place], [address] Basic Metabolic Profile (BMP) Normal 133-145 [facility] Comment on above: Result Comment: Canc elled via OM: Order cancelled - Patient discharged Performed By: #### L 300.3900, L500.2500, L501.5200, L501.2300, L100.0100 #### [facility] [address] [place], [address] CBC W/Diff, Automatedon 08-0 -2024 Absolute Neut Normal 2.0-7.7 [facility] Comment on above: Result Comment: Canc elled via OM: Order cancelled - Patient discharged Performed By: #### L 300.3900, L500.2500, L501.5200, L501.2300, L100.0100 #### [facility] [address] [place], [address] HCT Normal 37-47 [facility] Comment on above: Result Comment: Canc elled via OM: Order cancelled - Patient discharged Performed By: #### L 300.3900, L500.2500, L501.5200, L501.2300, L100.0100 #### [facility] [address] [place], [address] HGB Normal 12.0-15.0 [facility] Comment on above: Result Comment: Canc elled via OM: Order cancelled - Patient discharged Performed By: #### L 300.3900, L500.2500, L501.5200, L501.2300, L100.0100 #### [facility] [address] [place], [address] MCH Normal 27.0-32.0 [facility] Comment on above: Result Comment: Canc elled via OM: Order cancelled - Patient discharged Performed By: #### L 300.3900, L500.2500, L501.5200, L501.2300, L100.0100 #### [facility] [address] [place], [address] MCHC Normal 32-36 [facility] Comment on above: Result Comment: Canc elled via OM: Order cancelled - Patient discharged Performed By: #### L 300.3900, L500.2500, L501.5200, L501.2300, L100.0100 #### [facility] [address] [place], [address] MCV Normal 81-99 [facility] Comment on above: Result Comment: Canc elled via OM: Order cancelled - Patient discharged Performed By: #### L 300.3900, L500.2500, L501.5200, L501.2300, L100.0100 #### [facility] [address] [place], [address] NEUT% Normal 47-70 [facility] Comment on above: Result Comment: Canc elled via OM: Order cancelled - Patient discharged Performed By: #### L 300.3900, L500.2500, L501.5200, L501.2300, L100.0100 #### [facility] [address] [place], [address] PLT Normal 150-450 [facility] Comment on above: Result Comment: Canc elled via OM: Order cancelled - Patient discharged Performed By: #### L 300.3900, L500.2500, L501.5200, L501.2300, L100.0100 #### [facility] [address] [place], [address] RBC Normal 4.2-5.4 [facility] Comment on above: Result Comment: Canc elled via OM: Order cancelled - Patient discharged Performed By: #### L 300.3900, L500.2500, L501.5200, L501.2300, L100.0100 #### [facility] [address] [place], [address] RDW CV Normal 11.6-14.6 [facility] Comment on above: Result Comment: Canc elled via OM: Order cancelled - Patient discharged Performed By: #### L 300.3900, L500.2500, L501.5200, L501.2300, L100.0100 #### [facility] [address] [place], [address] RDW SD Normal 35.1-43.9 [facility] Comment on above: Result Comment: Canc elled via OM: Order cancelled - Patient discharged Performed By: #### L 300.3900, L500.2500, L501.5200, L501.2300, L100.0100 #### [facility] [address] [place], [address] WBC Normal 4.4-11.0 [facility] Comment on above: Result Comment: Canc elled via OM: Order cancelled - Patient discharged Performed By: #### L 300.3900, L500.2500, L501.5200, L501.2300, L100.0100 #### [facility] [address] [place], [address] Basic Metabolic Profile (BMP )on 02-26-2025 BUN Normal 4-19 [facility] Comment on above: Result Comment: Canc elled via OM: Order cancelled - Patient discharged Performed By: #### L 100.0100, L500.2500 #### [facility] [address] [place], [address] BUN/CRE Normal 10-20 [facility] Comment on above: Result Comment: Canc elled via OM: Order cancelled - Patient discharged Performed By: #### L 100.0100, L500.2500 #### [facility] [address] [place], [address] Calcium Normal 7.6-11.0 [facility] Comment on above: Result Comment: Canc elled via OM: Order cancelled - Patient discharged Performed By: #### L 100.0100, L500.2500 #### [facility] [address] [place], [address] CL Normal 98-108 [facility] Comment on above: Result Comment: Canc elled via OM: Order cancelled - Patient discharged Performed By: #### L 100.0100, L500.2500 #### [facility] [address] [place], [address] CO2 Normal 21.0-32.0 [facility] Comment on above: Result Comment: Canc elled via OM: Order cancelled - Patient discharged Performed By: #### L 100.0100, L500.2500 #### [facility] [address] [place], [address] CREAT,SERUM Normal 0.70-1.20 [facility] Comment on above: Result Comment: Canc elled via OM: Order cancelled - Patient discharged Performed By: #### L 100.0100, L500.2500 #### [facility] [address] [place], [address] eGFR Normal >60 [facility] Comment on above: Result Comment: Canc elled via OM: Order cancelled - Patient discharged Performed By: #### L 100.0100, L500.2500 #### [facility] [address] [place], [address] GAP Normal 5-15 [facility] Comment on above: Result Comment: Canc elled via OM: Order cancelled - Patient discharged Performed By: #### L 100.0100, L500.2500 #### [facility] [address] [place], [address] GLU Normal 70-99 [facility] Comment on above: Result Comment: Canc elled via OM: Order cancelled - Patient discharged Performed By: #### L 100.0100, L500.2500 #### [facility] [address] [place], [address] Potassium Normal 3.3-5.1 [facility] Comment on above: Result Comment: Canc elled via OM: Order cancelled - Patient discharged Performed By: #### L 100.0100, L500.2500 #### [facility] [address] [place], [address] Basic Metabolic Profile (BMP) Normal 133-145 [facility] Comment on above: Result Comment: Canc elled via OM: Order cancelled - Patient discharged Performed By: #### L 100.0100, L500.2500 #### [facility] [address] [place], [address] CBC W/Diff, Automatedon 08-0 -2024 Absolute Neut Normal 2.0-7.7 [facility] Comment on above: Result Comment: Canc elled via OM: Order cancelled - Patient discharged Performed By: #### L 100.0100, L500.2500 ####[facility] [address] [place], [address] HCT Normal 37-47 [facility] Comment on above: Result Comment: Canc elled via OM: Order cancelled - Patient discharged Performed By: #### L 100.0100, L500.2500 ####[facility] [address] [place], [address] HGB Normal 12.0-15.0 [facility] Comment on above: Result Comment: Canc elled via OM: Order cancelled - Patient discharged Performed By: #### L 100.0100, L500.2500 ####[facility] [address] [place], [address] MCH Normal 27.0-32.0 [facility] Comment on above: Result Comment: Canc elled via OM: Order cancelled - Patient discharged Performed By: #### L 100.0100, L500.2500 ####[facility] [address] [place], [address] MCHC Normal 32-36 [facility] Comment on above: Result Comment: Canc elled via OM: Order cancelled - Patient discharged Performed By: #### L 100.0100, L500.2500 ####[facility] [address] [place], [address] MCV Normal 81-99 [facility] Comment on above: Result Comment: Canc elled via OM: Order cancelled - Patient discharged Performed By: #### L 100.0100, L500.2500 ####[facility] [address] [place], [address] NEUT% Normal 47-70 [facility] Comment on above: Result Comment: Canc elled via OM: Order cancelled - Patient discharged Performed By: #### L 100.0100, L500.2500 ####[facility] [address] [place], [address] PLT Normal 150-450 [facility] Comment on above: Result Comment: Canc elled via OM: Order cancelled - Patient discharged Performed By: #### L 100.0100, L500.2500 ####[facility] [address] [place], [address] RBC Normal 4.2-5.4 [facility] Comment on above: Result Comment: Canc elled via OM: Order cancelled - Patient discharged Performed By: #### L 100.0100, L500.2500 ####[facility] [address] [place], [address] RDW CV Normal 11.6-14.6 [facility] Comment on above: Result Comment: Canc elled via OM: Order cancelled - Patient discharged Performed By: #### L 100.0100, L500.2500 ####[facility] [address] [place], [address] RDW SD Normal 35.1-43.9 [facility] Comment on above: Result Comment: Canc elled via OM: Order cancelled - Patient discharged Performed By: #### L 100.0100, L500.2500 ####[facility] [address] [place], [address] WBC Normal 4.4-11.0 [facility] Comment on above: Result Comment: Canc elled via OM: Order cancelled - Patient discharged Performed By: #### L 100.0100, L500.2500 ####[facility] [address] [place], [address] Absolute lymphocyte countOrd ered By: Clarissa Herrera on 02-25-2025 Lymphocytes Auto (Unsp spec) [#/Vol] 2.42 10*3/uL 0.83-4.51 [facility] Absolute neutrophil countOrd ered By: Clarissa Herrera on 02-25-2025 Neutrophils (Bld) [#/Vol] 3.3 10*3/uL 2.0-7.7 [facility] Anion gap in Serum or Plasma Ordered By: Clarissa Herrera on 02-25-2025 Anion gap [Moles/Vol] 15 mmol/L 5-15 [facility] Automated lymphocyte count a s percentage of total leukocytesOrdered By: Clarissa Herrera on 02-25-2025 Lymphocytes/100 WBC Auto (Unsp spec) 36.3 % 19-41 [facility] BUN/creatinine ratioOrdered By: Clarissa Herrera on 02-25-2025 Urea nitrogen/Creatinine [Mass ratio] 15.1 mg/mg 10- [facility] Basic Metabolic Profile (BMP )on 02-25-2025 BUN/CRE 15.1 RATIO Normal - [facility] Comment on above: Performed By: #### L 300.3900, L500.2500, L501.5200, L501.2300, L100.0100 #### [facility] [address] [place], [address] Calcium [Mass/Vol] 9.2 mg/dL Normal 7.6-11.0 [facility] Comment on above: Performed By: #### L 300.3900, L500.2500, L501.5200, L501.2300, L100.0100 #### [facility] [address] [place], [address] Chloride [Moles/Vol] 108 mmol/L Normal 98-108 [facility] Comment on above: Performed By: #### L 300.3900, L500.2500, L501.5200, L501.2300, L100.0100 #### [facility] [address] [place], [address] CO2 [Moles/Vol] 17.7 mmol/L Low 21.0-32.0 [facility] Comment on above: Performed By: #### L 300.3900, L500.2500, L501.5200, L501.2300, L100.0100 #### [facility] [address] [place], [address] Creatinine [Mass/Vol] 0.70 mg/dL Normal 0.70-1.20 [facility] Comment on above: Performed By: #### L 300.3900, L500.2500, L501.5200, L501.2300, L100.0100 #### [facility] [address] [place], [address] ECRCL 100.46 ml/min Normal 50-250 [facility] Comment on above: Performed By: #### L 300.3900, L500.2500, L501.5200, L501.2300, L100.0100 #### [facility] [address] [place], [address] GAP 15 Normal 5-15 [facility] Comment on above: Performed By: #### L 300.3900, L500.2500, L501.5200, L501.2300, L100.0100 #### [facility] [address] [place], [address] GFR/1.73 sq M.predicted among non-blacks MDRD (S/P/Bld) [Vol rate/Area] 98 mL/min/{1.73_m2} Normal >60 [facility] Comment on above: Result Comment: mL/m in/1.73m2 CKD-EPI Creatinine Equation (2020) Performed By: #### L 300.3900, L500.2500, L501.5200, L501.2300, L100.0100 #### [facility] [address] [place], [address] Glucose [Mass/Vol] 126 mg/dL High 70-99 [facility] Comment on above: Performed By: #### L 300.3900, L500.2500, L501.5200, L501.2300, L100.0100 #### [facility] [address] [place], [address] Potassium [Moles/Vol] 4.2 mmol/L Normal 3.3-5.1 [facility] Comment on above: Result Comment: Hemo lysis present, Results??could be affected. ?? Performed By: #### L 300.3900, L500.2500, L501.5200, L501.2300, L100.0100 #### [facility] [address] [place], [address] Sodium [Moles/Vol] 140 mmol/L Normal 133-145 [facility] Comment on above: Performed By: #### L 300.3900, L500.2500, L501.5200, L501.2300, L100.0100 #### [facility] [address] [place], [address] Urea nitrogen [Mass/Vol] 11 mg/dL Normal 4-19 [facility] Comment on above: Performed By: #### L 300.3900, L500.2500, L501.5200, L501.2300, L100.0100 #### [facility] [address] [place], [address] Basophil percentageOrdered B y: Clarissa Herrera on 02-25-2025 Basophils/100 WBC (Bld) 0.6 % 0-1 [facility] Bedside Glucoseon 02-25-2025 FINGERSTICK GLU 155 mg/dL High 74-106 [facility] Comment on above: Result Comment: JASPER GEMENT OF PATIENT CARE PER NURSING PROTOCOL Performed By: #### L 300.3900, L500.2500, L501.5200, L501.2300, L100.0100 #### [facility] [address] [place], [address] FINGERSTICK GLU 132 mg/dL High 74-106 [facility] Comment on above: Result Comment: JASPER GEMENT OF PATIENT CARE PER NURSING PROTOCOL Performed By: #### L 501.080 #### [facility] [address] [place], [address] CBC W/Diff, Automatedon 08 Absolute Lymph 2.42 X10 3/uL Normal 0.83-4.51 [facility] Comment on above: Order Comment: SHIRA Call. PREVIOUS SPECIMEN REJECTED DUE TOSPECIMEN BEING QNS. 08/07/25 0751 Rickey Boudreaux. Performed By: #### L 100.0100 ####[facility] [address] [place], [address] Absolute Neut 3.3 X10 3/uL Normal 2.0-7.7 [facility] Comment on above: Order Comment: REDRA W. PREVIOUS SPECIMEN REJECTED DUE TOSPECIMEN BEING QNS. 02/25/25750 Rickey Boudreaux. Performed By: #### L 100.0100 ####[facility] [address] [place], [address] Basophils/100 WBC (Bld) 0.6 % Normal 0-1 [facility] Comment on above: Order Comment: REDRA W. PREVIOUS SPECIMEN REJECTED DUE TOSPECIMEN BEING QNS. 02/25/25750 Rickey Boudreaux. Performed By: #### L 100.0100 ####[facility] [address] [place], [address] Eosinophils/100 WBC (Bld) 1.6 % Normal 0-5 [facility] Comment on above: Order Comment: REDRA W. PREVIOUS SPECIMEN REJECTED DUE TOSPECIMEN BEING QNS. 02/25/25750 Rickey Boudreaux. Performed By: #### L 100.0100 ####[facility] [address] [place], [address] Erythrocyte distribution width (RBC) [Ratio] 12.5 % Normal 11.6-14.6 [facility] Comment on above: Order Comment: REDRA W. PREVIOUS SPECIMEN REJECTED DUE TOSPECIMEN BEING QNS. 02/25/25 075 Rickey Velazquezr. Performed By: #### L 100.0100 ####[facility] [address] [place], [address] Hematocrit (Bld) [Volume fraction] 35.2 % Low 37-47 [facility] Comment on above: Order Comment: REDRA W. PREVIOUS SPECIMEN REJECTED DUE TOSPECIMEN BEING QNS. 02/25/25750 Rickey Vega Performed By: #### L 100.0100 ####[facility] [address] [place], [address] Hemoglobin (Bld) [Mass/Vol] 11.8 g/dL Low 12.0-15.0 [facility] Comment on above: Order Comment: REDRA W. PREVIOUS SPECIMEN REJECTED DUE TOSPECIMEN BEING QNS. 02/25/25750 Rickey Vega Performed By: #### L 100.0100 ####[facility] [address] [place], [address] IG% 0.100 Normal 0.0-0.9 [facility] Comment on above: Order Comment: REDRA W. PREVIOUS SPECIMEN REJECTED DUE TOSPECIMEN BEING QNS. 02/25/25750 Rickey Vega Result Comment: IG% - Immature Granulocytes (promyelocytes, myelocytes and metamyelocytes) > 1% indicates that a LEFT SHIFT is Present. Performed By: #### L 100.0100 ####[facility] [address] [place], [address] Lymphocytes/100 WBC (Bld) 36.3 % Normal 19-41 [facility] Comment on above: Order Comment: REDRA W. PREVIOUS SPECIMEN REJECTED DUE TOSPECIMEN BEING QNS. 02/25/25750 Rickey Vega Performed By: #### L 100.0100 ####[facility] [address] [place], [address] MCH (RBC) [Entitic mass] 30.6 pg Normal 27.0-32.0 [facility] Comment on above: Order Comment: REDRA W. PREVIOUS SPECIMEN REJECTED DUE TOSPECIMEN BEING QNS. 02/25/25750 Rickey Vega Performed By: #### L 100.0100 ####[facility] [address] [place], [address] MCHC (RBC) [Mass/Vol] 33.5 g/dL Normal 32-36 [facility] Comment on above: Order Comment: REDRA W. PREVIOUS SPECIMEN REJECTED DUE TOSPECIMEN BEING QNS. 02/25/25 0751 Rickey Boudreaux. Performed By: #### L 100.0100 ####[facility] [address] [place], [address] MCV (RBC) [Entitic vol] 91.4 fL Normal 81-99 [facility] Comment on above: Order Comment: REDRA W. PREVIOUS SPECIMEN REJECTED DUE TOSPECIMEN BEING QNS. 02/25/25 075 Rickey Boudreaux. Performed By: #### L 100.0100 ####[facility] [address] [place], [address] Monocytes/100 WBC (Bld) 12.0 % High 0-10 [facility] Comment on above: Order Comment: REDRA W. PREVIOUS SPECIMEN REJECTED DUE TOSPECIMEN BEING QNS. 02/25/25 0751 Rickey Boudreaux. Performed By: #### L 100.0100 ####[facility] [address] [place], [address] Neutrophils/100 WBC (Bld) 49.4 % Normal 47-70 [facility] Comment on above: Order Comment: REDRA W. PREVIOUS SPECIMEN REJECTED DUE TOSPECIMEN BEING QNS. 02/25/251 Rickey Boudreaux. Performed By: #### L 100.0100 ####[facility] [address] [place], [address] Nucleated RBC (Bld) [#/Vol] 0 10*3/uL Normal 0-5 [facility] Comment on above: Order Comment: REDRA W. PREVIOUS SPECIMEN REJECTED DUE TOSPECIMEN BEING QNS. 02/25/25 0751 Rickey Boudreaux. Performed By: #### L 100.0100 ####[facility] [address] [place], [address] Platelet mean volume (Bld) [Entitic vol] 9.8 fL Normal 6.2-12.0 [facility] Comment on above: Order Comment: REDRA W. PREVIOUS SPECIMEN REJECTED DUE TOSPECIMEN BEING QNS. 02/25/25 0751 Rickey Velazquezr. Performed By: #### L 100.0100 ####[facility] [address] [place], [address] Platelets (Bld) [#/Vol] 261 10*3/uL Normal 150-450 [facility] Comment on above: Order Comment: REDRA W. PREVIOUS SPECIMEN REJECTED DUE TOSPECIMEN BEING QNS. 02/25/25 0751 Rickey Velazquezr. Performed By: #### L 100.0100 ####[facility] [address] [place], [address] RBC (Bld) [#/Vol] 3.85 10*6/uL Low 4.2-5.4 [facility] Comment on above: Order Comment: REDRA W. PREVIOUS SPECIMEN REJECTED DUE TOSPECIMEN BEING QNS. 02/25/25 0751 Rickey Velazquezr. Performed By: #### L 100.0100 ####[facility] [address] [place], [address] RDW SD 41.2 fl Normal 35.1-43.9 [facility] Comment on above: Order Comment: REDRA W. PREVIOUS SPECIMEN REJECTED DUE TOSPECIMEN BEING QNS. 02/25/251 Rickey Velazquezr. Performed By: #### L 100.0100 ####[facility] [address] [place], [address] WBC (Bld) [#/Vol] 6.7 10*3/uL Normal 4.4-11.0 [facility] Comment on above: Order Comment: REDRA W. PREVIOUS SPECIMEN REJECTED DUE TOSPECIMEN BEING QNS. 02/25/25 0751 Rickey Velazquezr. Performed By: #### L 100.0100 ####[facility] [address] [place], [address] Absolute Neut Normal 2.0-7.7 [facility] Comment on above: Result Comment: This specimen has been REJECTED due to Laboratory criteria: Quanity Not Sufficient. PHLEB STAFF has been notified of need of recollection. 02/25/25749 Rickey R Stoner Performed By: #### L 300.3900, L500.2500, L501.5200, L501.2300, L100.0100 #### [facility] [address] [place], [address] HCT Normal 37-47 [facility] Comment on above: Result Comment: This specimen has been REJECTED due to Laboratory criteria: Quanity Not Sufficient. PHLEB STAFF has been notified of need of recollection. 02/25/25749 Rickey R Stoner Performed By: #### L 300.3900, L500.2500, L501.5200, L501.2300, L100.0100 #### [facility] [address] [place], [address] HGB Normal 12.0-15.0 [facility] Comment on above: Result Comment: This specimen has been REJECTED due to Laboratory criteria: Quanity Not Sufficient. PHLEB STAFF has been notified of need of recollection. 02/25/25749 Rickey R Stoner Performed By: #### L 300.3900, L500.2500, L501.5200, L501.2300, L100.0100 #### [facility] [address] [place], [address] MCH Normal 27.0-32.0 [facility] Comment on above: Result Comment: This specimen has been REJECTED due to Laboratory criteria: Quanity Not Sufficient. PHLEB STAFF has been notified of need of recollection. 02/25/25749 Rickey R Stoner Performed By: #### L 300.3900, L500.2500, L501.5200, L501.2300, L100.0100 #### [facility] [address] [place], [address] MCHC Normal 32-36 [facility] Comment on above: Result Comment: This specimen has been REJECTED due to Laboratory criteria: Quanity Not Sufficient. PHLEB STAFF has been notified of need of recollection. 02/25/25749 Rickey R Stoner Performed By: #### L 300.3900, L500.2500, L501.5200, L501.2300, L100.0100 #### [facility] [address] [place], [address] MCV Normal 81-99 [facility] Comment on above: Result Comment: This specimen has been REJECTED due to Laboratory criteria: Quanity Not Sufficient. PHLEB STAFF has been notified of need of recollection. 02/25/25749 Rickey R Stoner Performed By: #### L 300.3900, L500.2500, L501.5200, L501.2300, L100.0100 #### [facility] [address] [place], [address] NEUT% Normal 47-70 [facility] Comment on above: Result Comment: This specimen has been REJECTED due to Laboratory criteria: Quanity Not Sufficient. PHLEB STAFF has been notified of need of recollection. 02/25/25749 Rickey R Stoner Performed By: #### L 300.3900, L500.2500, L501.5200, L501.2300, L100.0100 #### [facility] [address] [place], [address] PLT Normal 150-450 [facility] Comment on above: Result Comment: This specimen has been REJECTED due to Laboratory criteria: Quanity Not Sufficient. PHLEB STAFF has been notified of need of recollection. 02/25/25749 Rickey R Stoner Performed By: #### L 300.3900, L500.2500, L501.5200, L501.2300, L100.0100 #### [facility] [address] [place], [address] RBC Normal 4.2-5.4 [facility] Comment on above: Result Comment: This specimen has been REJECTED due to Laboratory criteria: Quanity Not Sufficient. PHLEB STAFF has been notified of need of recollection. 02/25/25749 Rickey R Stoner Performed By: #### L 300.3900, L500.2500, L501.5200, L501.2300, L100.0100 #### [facility] [address] [place], [address] RDW CV Normal 11.6-14.6 [facility] Comment on above: Result Comment: This specimen has been REJECTED due to Laboratory criteria: Quanity Not Sufficient. PHLEB STAFF has been notified of need of recollection. 02/25/25749 Rikcey R Stoner Performed By: #### L 300.3900, L500.2500, L501.5200, L501.2300, L100.0100 #### [facility] [address] [place], [address] RDW SD Normal 35.1-43.9 [facility] Comment on above: Result Comment: This specimen has been REJECTED due to Laboratory criteria: Quanity Not Sufficient. PHLEB STAFF has been notified of need of recollection. 02/25/25749 Rickey R Stoner Performed By: #### L 300.3900, L500.2500, L501.5200, L501.2300, L100.0100 #### [facility] [address] [place], [address] WBC Normal 4.4-11.0 [facility] Comment on above: Result Comment: This specimen has been REJECTED due to Laboratory criteria: Quanity Not Sufficient. PHLEB STAFF has been notified of need of recollection. 02/25/25749 Rickey R Stoner Performed By: #### L 300.3900, L500.2500, L501.5200, L501.2300, L100.0100 #### [facility] [address] [place], [address] Carbon dioxide, total [Moles /volume] in Central venous bloodOrdered By: Clarissa Herrera on 02-25-2025 CO2 [Moles/Vol] 17.7 mmol/L Low 21.0-32.0 [facility] Chloride assayOrdered By: Heidi Herrera on 02-25-2025 Chloride [Moles/Vol] 108 mmol/L 98-108 [facility] Discharge Instructionon Discharge Instruction [facility] Medical Records Department [address] [place] [address] Instructions for Home/Discharge Instructions 02/25/25 1433 MR#: [id number] Acct: [id number] Name: LINA ISAAC Rep #: [id number] : 1965 59 From: Clarissa Herrera MD [...] Amrita Woo MD; Gopal Talbot MD; Gayathri Jacmoe DO; Gus Mott MD; Mary Kay Dugan DO Signed Normal [facility] Eosinophil percentageOrdered By: Clarissa Herrera on 02-25-2025 Eosinophils/100 WBC (Bld) 1.6 % 0-5 [facility] Erythrocyte distribution wid th ratioOrdered By: Clarissa Herrera on 02-25-2025 Erythrocyte distribution width (RBC) [Ratio] 12.5 % 11.6-14.6 [facility] Erythrocyte distribution wid th standard deviationOrdered By: Clarissa Herrera on 02-25-2025 Erythrocyte distribution width (RBC) [Ratio] 41.2 fl 35.1-43.9 [facility] Glomerular filtration rate ( GFR) estimation/1.73 sq m using serum, plasma, or whole bOrdered By: Clarissa Herrera on 02-25-2025 GFR/1.73 sq M.predicted among non-blacks MDRD (S/P/Bld) [Vol rate/Area] 98 mL/min/{1.73_m2} >60 [facility] Comment on above: mL/min/1.73m2 CKD-EP I Creatinine Equation (2020) Glucose measurement at bedsi deOrdered By: Clarissa Herrera on 02-25-2025 Glucose [Mass/Vol] 155 mg/dL High 74-106 [facility] Comment on above: MANAGEMENT OF PATIEN T CARE PER NURSING PROTOCOL Hematocrit Auto (Bld) [Volum e fraction]Ordered By: Clarissa Herrera on 02-25-2025 Hematocrit (Bld) [Volume fraction] 35.2 % Low 37-47 [facility] Hemoglobin measurementOrdere d By: Clarissa Herrera on 02-25-2025 Hemoglobin (Bld) [Mass/Vol] 11.8 g/dL Low 12.0-15.0 [facility] Immature granulocytes/100 WB C Auto (Bld)Ordered By: Clarissa Herrera on 02-25-2025 Immature granulocytes/100 WBC (Bld) 0.100 % 0.0-0.9 [facility] Comment on above: IG% - Immature Granu locytes (promyelocytes, myelocytes and metamyelocytes) > 1% indicates that a LEFT SHIFT is Present. MCV (mean corpuscular volume ) determinationOrdered By: Clarissa Herrera on 02-25-2025 MCV (RBC) [Entitic vol] 91.4 fL 81-99 [facility] Mean corpuscular hemoglobin (MCH) determinationOrdered By: Clarissa Herrera 02-25-2025 MCH (RBC) [Entitic mass] 30.6 pg 27.0-32.0 [facility] Mean corpuscular hemoglobin concentration (MCHC) determinationOrdered By: Clarissa Herrera on 02-25-2025 MCHC (RBC) [Mass/Vol] 33.5 g/dL 32-36 [facility] Mean platelet volume determi nationOrdered By: Clarissa Herrera on 02-25-2025 Platelet mean volume (Bld) [Entitic vol] 9.8 fL 6.2-12.0 [facility] Monocyte percentageOrdered B y: Clarissa Herrera on 02-25-2025 Monocytes/100 WBC (Bld) 12.0 % High 0-10 [facility] Neutrophil percentageOrdered By: Clarissa Herrera on 02-25-2025 Neutrophils/100 WBC (Bld) 49.4 % 47-70 [facility] Nucleated red blood cell per centageOrdered By: Clarissa Herrera on 02-25-2025 Nucleated RBC/100 WBC (Bld) [Ratio] 0 % 0-5 [facility] Platelet countOrdered By: Heidi Herrera on 02-25-2025 Platelets (Bld) [#/Vol] 261 10*3/uL 150-450 [facility] Potassium measurement (mass/ volume)Ordered By: Clarissa Herrera on 02-25-2025 Potassium (Unsp spec) [Mass/Vol] 4.2 mmol/L 3.3-5.1 [facility] Comment on above: Hemolysis present, R esults could be affected. RBC Auto (Bld) [#/Vol]Ordere d By: Clarissa Herrera on 02-25-2025 RBC (Bld) [#/Vol] 3.85 10*6/uL Low 4.2-5.4 [facility] Serum creatinine measurement (mass/volume)Ordered By: Clarissa Herrera on 02-25-2025 Creatinine [Mass/Vol] 0.70 mg/dL 0.70-1.20 [facility] Serum glucose measurement (m ass/volume)Ordered By: Clarissa Herrera on 02-25-2025 Glucose [Mass/Vol] 126 mg/dL High 70-99 [facility] Serum or plasma calcium delgado urement (mass/volume)Ordered By: Clarissa Herrera on 02-25-2025 Calcium [Mass/Vol] 9.2 mg/dL 7.6-11.0 [facility] Serum or plasma urea nitroge n measurement (mass/volume)Ordered By: Clarissa Herrera on 02-25-2025 Urea nitrogen [Mass/Vol] 11 mg/dL 4-19 [facility] Sodium levelOrdered By: Clarissa Herrera on 02-25-2025 Sodium [Moles/Vol] 140 mmol/L 133-145 [facility] White blood cell (WBC) count Ordered By: Clarissa Herrera on 02-25-2025 WBC (Bld) [#/Vol] 6.7 10*3/uL 4.4-11.0 [facility] Bedside Glucoseon 02-24-2025 FINGERSTICK GLU 192 mg/dL High 74-106 [facility] Comment on above: Result Comment: JASPER GEMENT OF PATIENT CARE PER NURSING PROTOCOL Performed By: #### L 501.080 #### [facility] [address] [place], [address] FINGERSTICK GLU 209 mg/dL High [address] [facility] Comment on above: Result Comment: JASPER GEMENT OF PATIENT CARE PER NURSING PROTOCOL Performed By: #### L 300.3900, L500.2500, L501.5200, L501.2300, L100.0100 #### [facility] [address] [place], [address] FINGERSTICK GLU 250 mg/dL High -106 [facility] Comment on above: Result Comment: JASPER GEMENT OF PATIENT CARE PER NURSING PROTOCOL Performed By: #### L 501.080 #### [facility] [address] [place], [address] FINGERSTICK GLU 114 mg/dL High [address] [place] [address] Comment on above: Result Comment: JASPER GEMENT OF PATIENT CARE PER NURSING PROTOCOL Performed By: #### L 501.080 #### [facility] [address] [place], [address] Bilirubin, totalOrdered By: Faye Mace on 02-24-2025 Bilirubin [Mass/Vol] 0.85 mg/dL 0.00-1.30 [facility] CBC W/Diff, Automatedon Absolute Lymph 3.17 X10 3/uL Normal 0.83-4.51 [facility] Comment on above: Performed By: #### L 300.3900, L500.2500, L501.5200, L501.2300, L100.0100 #### [facility] [address] [place], [address] Absolute Neut 2.7 X10 3/uL Normal 2.0-7.7 [facility] Comment on above: Performed By: #### L 300.3900, L500.2500, L501.5200, L501.2300, L100.0100 #### [facility] [address] [place], [address] Basophils/100 WBC (Bld) 0.6 % Normal 0-1 [facility] Comment on above: Performed By: #### L 300.3900, L500.2500, L501.5200, L501.2300, L100.0100 #### [facility] [address] [place], [address] Eosinophils/100 WBC (Bld) 1.9 % Normal 0-5 [facility] Comment on above: Performed By: #### L 300.3900, L500.2500, L501.5200, L501.2300, L100.0100 #### [facility] [address] [place], [address] Erythrocyte distribution width (RBC) [Ratio] 12.3 % Normal 11.6-14.6 [facility] Comment on above: Performed By: #### L 300.3900, L500.2500, L501.5200, L501.2300, L100.0100 #### [facility] [address] [place], [address] Hematocrit (Bld) [Volume fraction] 37.4 % Normal 37-47 [facility] Comment on above: Performed By: #### L 300.3900, L500.2500, L501.5200, L501.2300, L100.0100 #### [facility] [address] [place], [address] Hemoglobin (Bld) [Mass/Vol] 12.7 g/dL Normal 12.0-15.0 [facility] Comment on above: Performed By: #### L 300.3900, L500.2500, L501.5200, L501.2300, L100.0100 #### [facility] [address] [place], [address] IG% 0.300 Normal 0.0-0.9 [facility] Comment on above: Result Comment: IG% - Immature Granulocytes (promyelocytes, myelocytes and metamyelocytes) > 1% indicates that a LEFT SHIFT is Present. Performed By: #### L 300.3900, L500.2500, L501.5200, L501.2300, L100.0100 #### [facility] [address] [place], [address] Lymphocytes/100 WBC (Bld) 45.8 % High 19-41 [facility] Comment on above: Performed By: #### L 300.3900, L500.2500, L501.5200, L501.2300, L100.0100 #### [facility] [address] [place], [address] MCH (RBC) [Entitic mass] 30.4 pg Normal 27.0-32.0 [facility] Comment on above: Performed By: #### L 300.3900, L500.2500, L501.5200, L501.2300, L100.0100 #### [facility] [address] [place], [address] MCHC (RBC) [Mass/Vol] 34.0 g/dL Normal 32-36 [facility] Comment on above: Performed By: #### L 300.3900, L500.2500, L501.5200, L501.2300, L100.0100 #### [facility] [address] [place], [address] MCV (RBC) [Entitic vol] 89.5 fL Normal 81-99 [facility] Comment on above: Performed By: #### L 300.3900, L500.2500, L501.5200, L501.2300, L100.0100 #### [facility] [address] [place], [address] Monocytes/100 WBC (Bld) 12.0 % High 0-10 [facility] Comment on above: Performed By: #### L 300.3900, L500.2500, L501.5200, L501.2300, L100.0100 #### [facility] [address] [place], [address] Neutrophils/100 WBC (Bld) 39.4 % Low 47-70 [facility] Comment on above: Performed By: #### L 300.3900, L500.2500, L501.5200, L501.2300, L100.0100 #### [facility] [address] [place], [address] Nucleated RBC (Bld) [#/Vol] 0 10*3/uL Normal 0-5 [facility] Comment on above: Performed By: #### L 300.3900, L500.2500, L501.5200, L501.2300, L100.0100 #### [facility] [address] [place], [address] Platelet mean volume (Bld) [Entitic vol] 10.1 fL Normal 6.2-12.0 [facility] Comment on above: Performed By: #### L 300.3900, L500.2500, L501.5200, L501.2300, L100.0100 #### [facility] [address] [place], [address] Platelets (Bld) [#/Vol] 267 10*3/uL Normal 150-450 [facility] Comment on above: Performed By: #### L 300.3900, L500.2500, L501.5200, L501.2300, L100.0100 #### [facility] [address] [place], [address] RBC (Bld) [#/Vol] 4.18 10*6/uL Low 4.2-5.4 [facility] Comment on above: Performed By: #### L 300.3900, L500.2500, L501.5200, L501.2300, L100.0100 #### [facility] [address] [place], [address] RDW SD 39.8 fl Normal 35.1-43.9 [facility] Comment on above: Performed By: #### L 300.3900, L500.2500, L501.5200, L501.2300, L100.0100 #### [facility] [address] [place], [address] WBC (Bld) [#/Vol] 6.9 10*3/uL Normal 4.4-11.0 [facility] Comment on above: Performed By: #### L 300.3900, L500.2500, L501.5200, L501.2300, L100.0100 #### [facility] [address] [place], [address] CRPon 02-24-2025 C-REACTIVE PROT 43.20 mg/L High 0.0-3.0 [facility] Comment on above: Performed By: #### L 101.9900, L501.6710 ####[facility] [address] [place], [address] Comprehensive Metabolic Prof ilon 02-24-2025 Albumin [Mass/Vol] 3.8 g/dL Normal 3.4-4.8 [facility] Comment on above: Performed By: #### L 300.3900, L500.2500, L501.5200, L501.2300, L100.0100 #### [facility] [address] [place], [address] Albumin/Globulin [Mass ratio] 1.2 {ratio} Normal 0.9-2.4 [facility] Comment on above: Performed By: #### L 300.3900, L500.2500, L501.5200, L501.2300, L100.0100 #### [facility] [address] [place], [address] ALK PHOS 92 U/L Normal 35-104 [facility] Comment on above: Performed By: #### L 300.3900, L500.2500, L501.5200, L501.2300, L100.0100 #### [facility] [address] [place], [address] ALT [Catalytic activity/Vol] 31 U/L Normal <=34 [facility] Comment on above: Performed By: #### L 300.3900, L500.2500, L501.5200, L501.2300, L100.0100 #### [facility] [address] [place], [address] AST [Catalytic activity/Vol] 82 U/L High <=31 [facility] Comment on above: Performed By: #### L 300.3900, L500.2500, L501.5200, L501.2300, L100.0100 #### [facility] [address] [place], [address] Bilirubin [Mass/Vol] 0.85 mg/dL Normal 0.00-1.30 [facility] Comment on above: Performed By: #### L 300.3900, L500.2500, L501.5200, L501.2300, L100.0100 #### [facility] [address] [place], [address] BUN/CRE 19.8 RATIO Normal 10-20 [facility] Comment on above: Performed By: #### L 300.3900, L500.2500, L501.5200, L501.2300, L100.0100 #### [facility] [address] [place], [address] Calcium [Mass/Vol] 9.3 mg/dL Normal 7.6-11.0 [facility] Comment on above: Performed By: #### L 300.3900, L500.2500, L501.5200, L501.2300, L100.0100 #### [facility] [address] [place], [address] Chloride [Moles/Vol] 106 mmol/L Normal 98-108 [facility] Comment on above: Performed By: #### L 300.3900, L500.2500, L501.5200, L501.2300, L100.0100 #### [facility] [address] [place], [address] CO2 [Moles/Vol] 24.9 mmol/L Normal 21.0-32.0 [facility] Comment on above: Performed By: #### L 300.3900, L500.2500, L501.5200, L501.2300, L100.0100 #### [facility] [address] [place], [address] Creatinine [Mass/Vol] 0.54 mg/dL Low 0.70-1.20 [facility] Comment on above: Performed By: #### L 300.3900, L500.2500, L501.5200, L501.2300, L100.0100 #### [facility] [address] [place], [address] ECRCL 133.31 ml/min Normal 50-250 [facility] Comment on above: Performed By: #### L 300.3900, L500.2500, L501.5200, L501.2300, L100.0100 #### [facility] [address] [place], [address] GAP 11 Normal 5-15 [facility] Comment on above: Performed By: #### L 300.3900, L500.2500, L501.5200, L501.2300, L100.0100 #### [facility] [address] [place], [address] GFR/1.73 sq M.predicted among non-blacks MDRD (S/P/Bld) [Vol rate/Area] 106 mL/min/{1.73_m2} Normal >60 [facility] Comment on above: Result Comment: mL/m in/1.73m2 CKD-EPI Creatinine Equation (2020) Performed By: #### L 300.3900, L500.2500, L501.5200, L501.2300, L100.0100 #### [facility] [address] [place], [address] Globulin (S) [Mass/Vol] 3.2 g/dL Normal 2.2-4.2 [facility] Comment on above: Performed By: #### L 300.3900, L500.2500, L501.5200, L501.2300, L100.0100 #### [facility] [address] [place], [address] Glucose [Mass/Vol] 103 mg/dL High 70-99 [facility] Comment on above: Performed By: #### L 300.3900, L500.2500, L501.5200, L501.2300, L100.0100 #### [facility] [address] [place], [address] Potassium [Moles/Vol] 3.6 mmol/L Normal 3.3-5.1 [facility] Comment on above: Performed By: #### L 300.3900, L500.2500, L501.5200, L501.2300, L100.0100 #### [facility] [address] [place], [address] Sodium [Moles/Vol] 142 mmol/L Normal 133-145 [facility] Comment on above: Performed By: #### L 300.3900, L500.2500, L501.5200, L501.2300, L100.0100 #### [facility] [address] [place], [address] T PROT 7.0 g/dL Normal 5.9-8.4 [facility] Comment on above: Performed By: #### L 300.3900, L500.2500, L501.5200, L501.2300, L100.0100 #### [facility] [address] [place], [address] Urea nitrogen [Mass/Vol] 11 mg/dL Normal 4-19 [facility] Comment on above: Performed By: #### L 300.3900, L500.2500, L501.5200, L501.2300, L100.0100 #### [facility] [address] [place], [address] Electrocardiogram reportOrde red By: Elver Montero on 02-24-2025 EKG study [facility] Cardiovascular Services [address] [facility] [address] [place] [address] 12 Lead EKG 02/22/25 1635 MR#: [id number] Acct: [id number] Name: LINA ISAAC Rep #:[id number] : 1965 59 From: Elver Montero MD [...] Abnormal ECG Confirmed by WINSTON DELACRUZ, ELVER ([id number]), film and video editor REGGIE SHEARER ([id number]) on 02/24/2025 7:34:59 AM Referred By: JACK/OLGA Confirmed By: ELVER MONTERO MD 02/24/25 0735 Date _ Elver Montero MD CC: Dr. John Catherine MD; Dr. Jese Zheng DO; Dr. Clarissa Herrera MD ~ Signed [facility] Work Phone: Erythrocyte Sed Rateon 02-24 SED RATE 23 mm/hr Normal 0-30 [facility] Comment on above: Performed By: #### L 101.9900, L501.6710 ####[facility] [address] [place], [place], [id number] Erythrocyte sedimentation ra teOrdered By: Faye Mace on 02-24-2025 ESR (Bld) [Velocity] 23 mm/h 0-30 [facility] Hemoglobin A1con 02-24-2025 HbA1c (Bld) [Mass fraction] 9.9 % High <=5.6 [facility] Comment on above: Result Comment: Norm al < 5.7 % Prediabetic 5.7 - 6.4 % Diabetic >or= 6.5 % Please note range changes. Performed By: #### L 300.3900, L500.2500, L501.5200, L501.2300, L100.0100 #### [facility] [address] [place], [place], [address] Hemoglobin A1c percentageOrd ered By: Clarissa Herrera on 02-24-2025 HbA1c (Bld) [Mass fraction] 9.9 % High <5.7 [facility] Comment on above: Normal < 5.7 % Predi abetic 5.7 - 6.4 % Diabetic >or= 6.5 % Please note range changes. Laboratory - Chemistry and C hemistry - challengeOrdered By: Faye Mace on 02-24-2025 AST [Catalytic activity/Vol] 82 U/L High <32 [facility] Magnesiumon 02-24-2025 Magnesium [Mass/Vol] 2.2 mg/dL Normal 1.5-2.2 [facility] Comment on above: Performed By: #### L 300.3900, L500.2500, L501.5200, L501.2300, L100.0100 #### [facility] [address] [place], [place], [address] Magnesium measurement (mass/ volume)Ordered By: Faye Mace on 02-24-2025 Magnesium (Unsp spec) [Mass/Vol] 2.2 mg/dL 1.5-2.2 [facility] Phosphoruson 02-24-2025 Phosphate [Mass/Vol] 4.3 mg/dL Normal 2.7-4.5 [facility] Comment on above: Performed By: #### L 300.3900, L500.2500, L501.5200, L501.2300, L100.0100 #### [facility] [address] [place], [place], [address] Serum globulin measurementOr dered By: Faye Mace on 02-24-2025 Globulin (S) [Mass/Vol] 3.2 g/dL 2.2-4.2 [facility] Serum or plasma C reactive p rotein measurement (mass/volume)Ordered By: Faye Mace on 02-24-2025 CRP [Mass/Vol] 43.20 mg/L High 0.0-3.0 [facility] Serum or plasma alanine little otransferase (ALT) measurementOrdered By: Faye Mace on 02-24-2025 ALT [Catalytic activity/Vol] 31 U/L <35 [facility] Serum or plasma albumin delgado urement (mass/volume)Ordered By: Faye Mace on 02-24-2025 Albumin [Mass/Vol] 3.8 g/dL 3.4-4.8 [facility] Serum or plasma albumin/glob ulin mass ratioOrdered By: Faye Mace on 02-24-2025 Albumin/Globulin [Mass ratio] 1.2 {ratio} 0.9-2.4 [facility] Serum or plasma alkaline ambar sphatase measurementOrdered By: Faye Mace on 02-24-2025 ALP [Catalytic activity/Vol] 92 U/L 35-104 [facility] TSH DL <= 0.005 mIU/L QnOrde red By: Faye Mace on 02-24-2025 TSH Qn 2.330 uIU/mL 0.300-4.200 [facility] Thyroid Stim Hormone (TSH)on 02-24-2025 TSH 2.330 uIU/mL Normal 0.300-4.200 [facility] Comment on above: Performed By: #### L 300.3900, L500.2500, L501.5200, L501.2300, L100.0100 #### [facility] [address] [facility] [place], [place], [address] Total proteinOrdered By: Ann Mace on 02-24-2025 Protein [Mass/Vol] 7.0 g/dL 5.9-8.4 [facility] Abdomen/Pelvis without Conto n 02-23-2025 Abdomen/Pelvis without Cont [facility] Imaging Services [address] [place], [place] [address] Abdomen/Pelvis without Cont MR#: [id number] Acct: [id number] Name: LINA ISAAC Rep #: [id number] : 1965 F 59 From: Sourav sanabria MD PCP: Dr. Jese Zheng DO Status: ADM IN Study: Abdomen/Pelvis without Cont Date of Exam: 12/13 Exam# [id number] Ordering Dr: Faye Mace DO PROCEDURE: ABDOMEN/PELVIS [...] evidence of the ureteral obstruction. Reading Location: [id number] CC: Dr. Jese Zheng DO; Dr. Faye Mace DO Generation Manager: Signed Normal [facility] Basic Metabolic Profile (BMP )on 02-23-2025 BUN/CRE 17.5 RATIO Normal 10-20 [facility] Comment on above: Performed By: #### L 300.3900, L500.2500, L501.5200, L501.2300, L100.0100 #### [facility] [address] [place], [address] Calcium [Mass/Vol] 9.0 mg/dL Normal 7.6-11.0 [facility] Comment on above: Performed By: #### L 300.3900, L500.2500, L501.5200, L501.2300, L100.0100 #### [facility] [address] [place], [address] Chloride [Moles/Vol] 102 mmol/L Normal 98-108 [facility] Comment on above: Performed By: #### L 300.3900, L500.2500, L501.5200, L501.2300, L100.0100 #### [facility] [address] [place], [address] CO2 [Moles/Vol] 23.6 mmol/L Normal 21.0-32.0 [facility] Comment on above: Performed By: #### L 300.3900, L500.2500, L501.5200, L501.2300, L100.0100 #### [facility] [address] [place], [address] Creatinine [Mass/Vol] 0.66 mg/dL Low 0.70-1.20 [facility] Comment on above: Performed By: #### L 300.3900, L500.2500, L501.5200, L501.2300, L100.0100 #### [facility] [address] [place], [address] ECRCL 109.07 ml/min Normal 50-250 [facility] Comment on above: Performed By: #### L 300.3900, L500.2500, L501.5200, L501.2300, L100.0100 #### [facility] [address] [place], [address] GAP 13 Normal 5-15 [facility] Comment on above: Performed By: #### L 300.3900, L500.2500, L501.5200, L501.2300, L100.0100 #### [facility] [address] [place], [address] GFR/1.73 sq M.predicted among non-blacks MDRD (S/P/Bld) [Vol rate/Area] 100 mL/min/{1.73_m2} Normal >60 [facility] Comment on above: Result Comment: mL/m in/1.73m2 CKD-EPI Creatinine Equation (2020) Performed By: #### L 300.3900, L500.2500, L501.5200, L501.2300, L100.0100 #### [facility] [address] [place], [address] Glucose [Mass/Vol] 253 mg/dL High 70-99 [facility] Comment on above: Performed By: #### L 300.3900, L500.2500, L501.5200, L501.2300, L100.0100 #### [facility] [address] [place], [address] Potassium [Moles/Vol] 3.5 mmol/L Normal 3.3-5.1 [facility] Comment on above: Performed By: #### L 300.3900, L500.2500, L501.5200, L501.2300, L100.0100 #### [facility] [address] [place], [address] Sodium [Moles/Vol] 138 mmol/L Normal 133-145 [facility] Comment on above: Performed By: #### L 300.3900, L500.2500, L501.5200, L501.2300, L100.0100 #### [facility] [address] [place], [address] Urea nitrogen [Mass/Vol] 12 mg/dL Normal 4-19 [facility] Comment on above: Performed By: #### L 300.3900, L500.2500, L501.5200, L501.2300, L100.0100 #### [facility] [address] [place], [address] Bedside Glucoseon 02-23-2025 FINGERSTICK GLU 186 mg/dL High 74-106 [facility] Comment on above: Result Comment: JASPER RUIZ OF PATIENT CARE PER NURSING PROTOCOL Performed By: #### L 501.080 ####[facility] [address] [place], [address] FINGERSTICK GLU 144 mg/dL High 74-106 [facility] Comment on above: Result Comment: JASPER GEMENT OF PATIENT CARE PER NURSING PROTOCOL Performed By: #### L 501.080 #### [facility] [address] [place], [address] FINGERSTICK GLU 140 mg/dL High 74-106 [facility] Comment on above: Result Comment: JASPER GEMENT OF PATIENT CARE PER NURSING PROTOCOL Performed By: #### L 300.3900, L500.2500, L501.5200, L501.2300, L100.0100 #### [facility] [address] [place], [address] FINGERSTICK GLU 263 mg/dL High 74-106 [facility] Comment on above: Result Comment: JASPER GEMENT OF PATIENT CARE PER NURSING PROTOCOL Performed By: #### L 501.080 #### [facility] [address] [place], [address] FINGERSTICK GLU 241 mg/dL High -106 [facility] Comment on above: Result Comment: JASPER GEMENT OF PATIENT CARE PER NURSING PROTOCOL Performed By: #### L 501.080 ####[facility] [address] [place], [address] FINGERSTICK GLU 373 mg/dL High 74-106 [facility] Comment on above: Result Comment: JASPER GEMENT OF PATIENT CARE PER NURSING PROTOCOL Performed By: #### L 501.080 #### [facility] [address] [place], [address] Brain/Head without Contrasto n 02-23-2025 Brain/Head without Contrast [facility] Imaging Services [address] [place] [address] Brain/Head without Contrast MR#: [id number] Acct: [id number] Name: LINA ISAAC Rep #: [id number] : 1965 F 59 From: Sourav sanabria MD PCP: Dr. Jese Zheng DO Status: ADM IN Study: Brain/Head without Contrast Date of Exam: 12/13 Exam# [id number] Ordering Dr: Faye Mace DO PROCEDURE: BRAIN/HEAD [...] CHRONIC CHANGES. NO ACUTE FINDINGS. Reading Location: [id number] CC: Dr. Jese Zheng DO; Dr. Faye Mace DO Generation Manager: Signed Normal [facility] CBC W/Diff, Automatedon Absolute Lymph 2.76 X10 3/uL Normal 0.83-4.51 [facility] Comment on above: Performed By: #### L 300.3900, L500.2500, L501.5200, L501.2300, L100.0100 #### [facility] [address] [place], [address] Absolute Neut 4.5 X10 3/uL Normal 2.0-7.7 [facility] Comment on above: Performed By: #### L 300.3900, L500.2500, L501.5200, L501.2300, L100.0100 #### [facility] [address] [place], [address] Basophils/100 WBC (Bld) 0.7 % Normal 0-1 [facility] Comment on above: Performed By: #### L 300.3900, L500.2500, L501.5200, L501.2300, L100.0100 #### [facility] [address] [place], [address] Eosinophils/100 WBC (Bld) 1.3 % Normal 0-5 [facility] Comment on above: Performed By: #### L 300.3900, L500.2500, L501.5200, L501.2300, L100.0100 #### [facility] [address] [place], [address] Erythrocyte distribution width (RBC) [Ratio] 12.3 % Normal 11.6-14.6 [facility] Comment on above: Performed By: #### L 300.3900, L500.2500, L501.5200, L501.2300, L100.0100 #### [facility] [address] [place], [address] Hematocrit (Bld) [Volume fraction] 36.7 % Low 37-47 [facility] Comment on above: Performed By: #### L 300.3900, L500.2500, L501.5200, L501.2300, L100.0100 #### [facility] [address] [place], [address] Hemoglobin (Bld) [Mass/Vol] 12.6 g/dL Normal 12.0-15.0 [facility] Comment on above: Performed By: #### L 300.3900, L500.2500, L501.5200, L501.2300, L100.0100 #### [facility] [address] [place], [address] IG% 0.200 Normal 0.0-0.9 [facility] Comment on above: Result Comment: IG% - Immature Granulocytes (promyelocytes, myelocytes and metamyelocytes) > 1% indicates that a LEFT SHIFT is Present. Performed By: #### L 300.3900, L500.2500, L501.5200, L501.2300, L100.0100 #### [facility] [address] [place], [address] Lymphocytes/100 WBC (Bld) 32.5 % Normal 19-41 [facility] Comment on above: Performed By: #### L 300.3900, L500.2500, L501.5200, L501.2300, L100.0100 #### [facility] [address] [place], [address] MCH (RBC) [Entitic mass] 30.6 pg Normal 27.0-32.0 [facility] Comment on above: Performed By: #### L 300.3900, L500.2500, L501.5200, L501.2300, L100.0100 #### [facility] [address] [place], [address] MCHC (RBC) [Mass/Vol] 34.3 g/dL Normal 32-36 [facility] Comment on above: Performed By: #### L 300.3900, L500.2500, L501.5200, L501.2300, L100.0100 #### [facility] [address] [place], [address] MCV (RBC) [Entitic vol] 89.1 fL Normal 81-99 [facility] Comment on above: Performed By: #### L 300.3900, L500.2500, L501.5200, L501.2300, L100.0100 #### [facility] [address] [place], [address] Monocytes/100 WBC (Bld) 12.7 % High 0-10 [facility] Comment on above: Performed By: #### L 300.3900, L500.2500, L501.5200, L501.2300, L100.0100 #### [facility] [address] [place], [address] Neutrophils/100 WBC (Bld) 52.6 % Normal 47-70 [facility] Comment on above: Performed By: #### L 300.3900, L500.2500, L501.5200, L501.2300, L100.0100 #### [facility] [address] [place], [address] Nucleated RBC (Bld) [#/Vol] 0 10*3/uL Normal 0-5 [facility] Comment on above: Performed By: #### L 300.3900, L500.2500, L501.5200, L501.2300, L100.0100 #### [facility] [address] [place], [address] Platelet mean volume (Bld) [Entitic vol] 10.2 fL Normal 6.2-12.0 [facility] Comment on above: Performed By: #### L 300.3900, L500.2500, L501.5200, L501.2300, L100.0100 #### [facility] [address] [place], [address] Platelets (Bld) [#/Vol] 269 10*3/uL Normal 150-450 [facility] Comment on above: Performed By: #### L 300.3900, L500.2500, L501.5200, L501.2300, L100.0100 #### [facility] [address] [place], [address] RBC (Bld) [#/Vol] 4.12 10*6/uL Low 4.2-5.4 [facility] Comment on above: Performed By: #### L 300.3900, L500.2500, L501.5200, L501.2300, L100.0100 #### [facility] [address], [address] RDW SD 39.6 fl Normal 35.1-43.9 [facility] Comment on above: Performed By: #### L 300.3900, L500.2500, L501.5200, L501.2300, L100.0100 #### [facility] [address] [place], [address] WBC (Bld) [#/Vol] 8.5 10*3/uL Normal 4.4-11.0 [facility] Comment on above: Performed By: #### L 300.3900, L500.2500, L501.5200, L501.2300, L100.0100 #### [facility] [address] [facility] [place], [address] Consultation - Cardiologyon 02-23-2025 Consultation - Cardiology [facility] Medical Records Department [address] [place] [address] Consultation - Cardiology 02/23/25 0759 MR#: [id number] Acct: [id number] Name: LINA ISAAC Rep #: [id number] : 1965 59 From: Elver Montero MD PCP: Dr. Jese Zheng, DO Status:ADM IN Location: [place] [address] Assessment Plan Assessment/Plan (1) Chest pain: PLAN: [...] but no history of hypertension or hyperlipidemia. [facility] Medical History Dyslipidemia Trigger ring finger of [...] injector (T (more content not included)... Normal [facility] Echo Complete W/ Contraston 02-23-2025 Echo Complete W/ Contrast [facility] Cardiovascular Services [address] [place] [address] Echo Complete W/ Contrast 02/23/25 1437 MR#: [id number] Acct: [id number] Name: LINA ISAAC Rep #: [id number] : 1965 59 From: Elver Montero MD [...] Shanelle Roger, JEFFCS, RVT 02/23/251626 Date Elver oMntero MD CC: Dr. Jese Zheng DO; Dr. Faye Mace DO; Dr. Denton Cook MD Date Dictated: 02/23/251436 Date Transcribed: 02/23/251626 Generation Manager: Signed Normal [facility] Echocardiogram study reportO rdered By: Elver Montero on 02-23-2025 Study report [facility] [address] [place] [address] Echo Complete W/ Contrast 02/23/251436 MR#: [id number] Acct: [id number] Name: MART ISAACJOHNNY Del Angel Rep #:[id number] : 1965 59 From: Elver Del Angel [...] Date Dictated: 02/23/25 1437 Date Transcribed: 02/23/251626 Generation Manager: Signed [facility] Work Phone: International normalized rat io (INR) calculationOrdered By: Denton Cook on 02-23-2025 INR Coag (Bld) [Relative time] 1.0 {INR} [facility] Lactic Acidon 02-23-2025 Lactate [Moles/Vol] 1.5 mmol/L Normal 0.0-2.0 [facility] Comment on above: Order Comment: NO0 V RIY Performed By: #### L 501.080 #### [facility] [address] [place], [place], [address] Lactic acid measurementOrder ed By: Faye Mace on 02-23-2025 Lactate [Moles/Vol] 1.5 mmol/L 0.0-2.0 [facility] Magnesiumon 02-23-2025 Magnesium [Mass/Vol] 1.9 mg/dL Normal 1.5-2.2 [facility] Comment on above: Performed By: #### L 300.3900, L500.2500, L501.5200, L501.2300, L100.0100 #### [facility] [address] [place], [place], [address] Phosphoruson 02-23-2025 Phosphate [Mass/Vol] 3.0 mg/dL Normal 2.7-4.5 [facility] Comment on above: Performed By: #### L 300.3900, L500.2500, L501.5200, L501.2300, L100.0100 #### [facility] [address] [place], [address] Prothrombin Time w/INRon INR Coag (PPP) [Relative time] 1.0 {INR} Normal [facility] Comment on above: Performed By: #### L 300.3900, L500.2500, L501.5200, L501.2300, L100.0100 #### [facility] [address] [place], [address] PT Coag (PPP) [Time] 13.6 s Normal 11.7-14.9 [facility] Comment on above: Performed By: #### L 300.3900, L500.2500, L501.5200, L501.2300, L100.0100 #### [facility] [address] [place], [address] Prothrombin timeOrdered By: Denton Cook on 02-23-2025 PT Coag (PPP) [Time] 13.6 s 11.7-14.9 [facility] Spine Lumbar WITH Contraston 02-23-2025 Spine Lumbar WITH Contrast [facility] Imaging Services [address] [place] [address] Spine Lumbar WITH Contrast MR#: [id number] Acct: [id number] Name: LINA ISAAC Bean Rep #: [id number] : 1965 F 59 From: José Benitez MD PCP: Dr. Jese Zheng DO Status: ADM IN Study: Spine Lumbar WITH Contrast Date of Exam: 02/23 Exam# [id number] Ordering Dr: Faye Mace DO PROCEDURE: SPINE [...] mainly L5-S1. No acute findings. Reading Location: [place] [address] CC: Dr. Jese Zheng DO; Dr. Faye Mace, DO Generation Manager: Signed Normal [facility] Troponin T HS 4 HRon 025 Trop T High Sen 164 ng/L Invalid Interpretation Code <=14 [facility] Comment on above: Result Comment: Crit ical Result(s) Called at: 0008 by:??MISHEL CASANOVA TO [employer]. Results read back by same. Performed By: #### L 501.080 #### [facility] [address] [facility] [place], [address] 12 Lead EKGon 02-22-2025 12 Lead EKG [facility] Cardiovascular Services [address] [place] [address] 12 Lead EKG 02/22/25 1635 MR#: [id number] Acct: [id number] Name: LINA ISAAC Rep #: [id number] : 1965 59 From: Elver Montero MD [...] Abnormal ECG Confirmed by ELVER MONTERO MD ([id number]), film and video editor REGGIE SHEARER ([id number]) on 02/24/2025 7:34:59 AM Referred By: PEDRO Confirmed By: ELVER MONTERO MD 02/24/25 0735 Date Elver Montero MD CC: Dr. John Catherine MD; Dr. Jese Zheng DO; Dr. Clarissa Herrera MD Signed Normal [facility] Absolute lymphocyte countOrd ered By: John Catherine on 02-22-2025 Lymphocytes Auto (Unsp spec) [#/Vol] 2.92 10*3/uL 0.83-4.51 [facility] Absolute neutrophil countOrd ered By: John Catherine on 02-22-2025 Neutrophils (Bld) [#/Vol] 3.8 10*3/uL 2.0-7.7 [facility] Anion gap in Serum or Plasma Ordered By: John Catherine on 02-22-2025 Anion gap [Moles/Vol] 12 mmol/L 5-15 [facility] Automated blood erythrocyte countOrdered By: John Catherine on 02-22-2025 RBC (Bld) [#/Vol] 4.29 10*6/uL Normal 4.2-5.4 [facility] Comment on above: Performed By: #### L 501.080 #### [facility] [address] [place], [place], [address] Automated blood hematocrit ( percentage)Ordered By: John Catherine on 02-22-2025 Hematocrit (Bld) [Volume fraction] 38.3 % Normal 37-47 [facility] Comment on above: Performed By: #### L 501.080 #### [facility] [address] [place], [address] Automated lymphocyte count a s percentage of total leukocytesOrdered By: John Catherine on 02-22-2025 Lymphocytes/100 WBC Auto (Unsp spec) 37.3 % 19- [facility] BUN/creatinine ratioOrdered By: John Catherine on 02-22-2025 Urea nitrogen/Creatinine [Mass ratio] 15.5 mg/mg - [facility] Basic Metabolic Profile (BMP )on 02-22-2025 BUN/CRE 15.5 RATIO Normal - [facility] Comment on above: Performed By: #### L 300.3900, L500.2500, L501.5200, L501.2300, L100.0100 #### [facility] [address] [place], [address] Calcium [Mass/Vol] 9.3 mg/dL Normal 7.6-11.0 [facility] Comment on above: Performed By: #### L 300.3900, L500.2500, L501.5200, L501.2300, L100.0100 #### [facility] [address] [place], [address] Chloride [Moles/Vol] 103 mmol/L Normal 98-108 [facility] Comment on above: Performed By: #### L 300.3900, L500.2500, L501.5200, L501.2300, L100.0100 #### [facility] [address] [place], [address] CO2 [Moles/Vol] 24.0 mmol/L Normal 21.0-32.0 [facility] Comment on above: Performed By: #### L 300.3900, L500.2500, L501.5200, L501.2300, L100.0100 #### [facility] [address] [place], [address] Creatinine [Mass/Vol] 0.57 mg/dL Low 0.70-1.20 [facility] Comment on above: Performed By: #### L 300.3900, L500.2500, L501.5200, L501.2300, L100.0100 #### [facility] [address] [place], [address] ECRCL 127.95 ml/min Normal 50-250 [facility] Comment on above: Performed By: #### L 300.3900, L500.2500, L501.5200, L501.2300, L100.0100 #### [facility] [address] [place], [address] GAP 12 Normal 5-15 [facility] Comment on above: Performed By: #### L 300.3900, L500.2500, L501.5200, L501.2300, L100.0100 #### [facility] [address] [place], [address] GFR/1.73 sq M.predicted among non-blacks MDRD (S/P/Bld) [Vol rate/Area] 104 mL/min/{1.73_m2} Normal >60 [facility] Comment on above: Result Comment: mL/m in/1.73m2 CKD-EPI Creatinine Equation (2020) Performed By: #### L 300.3900, L500.2500, L501.5200, L501.2300, L100.0100 #### [facility] [address] [place], [address] Glucose [Mass/Vol] 270 mg/dL High 70-99 [facility] Comment on above: Performed By: #### L 300.3900, L500.2500, L501.5200, L501.2300, L100.0100 #### [facility] [address] [place], [address] Potassium [Moles/Vol] 3.6 mmol/L Normal 3.3-5.1 [facility] Comment on above: Performed By: #### L 300.3900, L500.2500, L501.5200, L501.2300, L100.0100 #### [facility] [address] [place], [address] Sodium [Moles/Vol] 139 mmol/L Normal 133-145 [facility] Comment on above: Performed By: #### L 300.3900, L500.2500, L501.5200, L501.2300, L100.0100 #### [facility] [address] [place], [address] Urea nitrogen [Mass/Vol] 9 mg/dL Normal 4-19 [facility] Comment on above: Performed By: #### L 300.3900, L500.2500, L501.5200, L501.2300, L100.0100 #### [facility] [address] [place], [address] Basophil percentageOrdered B y: John Catherine on 02-22-2025 Basophils/100 WBC (Bld) 0.8 % Normal 0-1 [facility] Comment on above: Performed By: #### L 501.080 #### [facility] [address] [place], [address] CBC W/Diff, Automatedon 08-0 Absolute Lymph 2.92 X10 3/uL Normal 0.83-4.51 [facility] Comment on above: Performed By: #### L 501.080 #### [facility] [address] [place], [address] Absolute Neut 3.8 X10 3/uL Normal 2.0-7.7 [facility] Comment on above: Performed By: #### L 501.080 #### [facility] [address] [place], [address] IG% 0.400 Normal 0.0-0.9 [facility] Comment on above: Result Comment: IG% - Immature Granulocytes (promyelocytes, myelocytes and metamyelocytes) > 1% indicates that a LEFT SHIFT is Present. Performed By: #### L 501.080 #### [facility] [address] [place], [address] Lymphocytes/100 WBC (Bld) 37.3 % Normal 19-41 [facility] Comment on above: Performed By: #### L 501.080 #### [facility] [address] [place], [address] Nucleated RBC (Bld) [#/Vol] 0 10*3/uL Normal 0-5 [facility] Comment on above: Performed By: #### L 501.080 #### [facility] [address] [place], [address] RDW SD 39.5 fl Normal 35.1-43.9 [facility] Comment on above: Performed By: #### L 501.080 #### [facility] [address] [place], [address] CNOVon 02-22-2025 CNOV Office Visit (FAMPWS) LINA ISAAC ([id number]) 1965 F Date Time Provider Department 02/22/25 3:00 PM SELIN GARCIA FAMPWS During your visit today, we recorded the following information about you: Temperature Pulse Blood pressure 97.7 degrees 110/minute 122/74 Selin Garcia APRN.[employer] 02/22/2025 5:27 PM Addendum This is a [...] tablet Ta (more content not included)... Normal [facility] Carbon dioxide, total [Moles /volume] in Central venous bloodOrdered By: John Catherine on 02-22-2025 CO2 [Moles/Vol] 24.0 mmol/L 21.0-32.0 [facility] Chest PA and Lateralon 02-22 Chest PA and Lateral [facility] Imaging Services [address] [place] [address] Chest PA and Lateral MR#: [id number] Acct: [id number] Name: LINA ISAAC Rep #: [id number] : 1965 F 59 From: Norberto Marinelli MD PCP: Dr. Jese Zheng, DO Status: REG ER Study: Chest PA and Lateral Date of Exam: 02/22/25 Exam# [id number] Ordering Dr: John Catherine MD PROCEDURE: CHEST [...] in the appropriate clinical context. Reading Location: [facility] CC: Dr. John Catherine MD; Dr. Jese Zheng DO Generation Manager: Signed Normal [facility] Chloride assayOrdered By: Rosalva Catherine on 02-22-2025 Chloride [Moles/Vol] 103 mmol/L 98-108 [facility] ECG COMPLETEon 02-22-2025 ECG COMPLETE Ventricular Rate : 108 BPM Atrial Rate : 108 BPM P-R Interval : 140 ms QRS Duration : 82 ms Q-T Interval : 348 ms QTC Calculation(Bazett) : 466 ms Calculated P [place] : 51 degrees Calculated R [place] : 5 degrees Calculated T [place] : 93 degrees SINUS TACHYCARDIA LEFT VENTRICULAR HYPERTROPHY WITH REPOLARIZATION ABNORMALITY ( R in aVL ) INFERIOR MYOCARDIAL INFARCTION , AGE UNDETERMINED ABNORMAL ECG Confirmed by MD STRONG QARAB ([id number]) on 02/25/2025 9:42:16 AM NAME : OTIS ISAACMORTEZA PID : [id number] : 1965 Gender : Female Race : ORD : [id number] Procedure Date : Feb 22 2025 15:46:22 Edit Date : Feb 25 2025 09:42:19 Diagnosis: SINUS TACHYCARDIA LEFT VENTRICULAR HYPERTROPHY WITH REPOLARIZATION ABNORMALITY ( R in aVL ) INFERIOR MYOCARDIAL INFARCTION , AGE UNDETERMINED ABNORMAL ECG Confirmed by MD STRONG QARAB ([id number]) on 02/25/2025 9:42:16 AM Test Reason : R07.1 Chest pain on breathing Location : 185 : WO Overread By : MD STRONG QARAB Edited By : MD STRONG QARAB Referred By : , Acquired by : [id number], Alhaji [facility] Emergency Department Summary on 02-22-2025 Emergency Department Summary [facility] Medical Records Department [address] [place] [address] Emergency Department Summary 02/22/25 MR#: [id number] Acct: [id number] Name: PONCHOLINA Rep #: [id number] : 1965 59 From: John Catherine MD PCP: Dr. Jese Zheng DO Status:REG ER Location: ED HPI History of Present Illness Chief Complaint: Chest Pain Informant: patient and EMS Narrative Narrative: 59-year-old female was sent from the PCPs office at [facility] due to the patient having intermittent [...] thought I was having a heart attack. [facility] Medical History (Updated 02/22/25 @ 20:09 [...] Time tramadol (more content not included)... Normal [facility] Eosinophil percentageOrdered By: John Catherine on 02-22-2025 Eosinophils/100 WBC (Bld) 1.7 % Normal 0-5 [facility] Comment on above: Performed By: #### L 501.080 #### [facility] [address] [place], [place], [id number] Erythrocyte distribution wid th ratioOrdered By: John Catherine on 02-22-2025 Erythrocyte distribution width (RBC) [Ratio] 12.2 % Normal 11.6-14.6 [facility] Comment on above: Performed By: #### L 501.080 #### [facility] [address] [place], [place], [id number] Erythrocyte distribution wid th standard deviationOrdered By: John Catherine on 02-22-2025 Erythrocyte distribution width (RBC) [Ratio] 39.5 fl 35.1-43.9 [facility] Glomerular filtration rate ( GFR) estimation/1.73 sq m using serum, plasma, or whole bOrdered By: John Catherine on 02-22-2025 GFR/1.73 sq M.predicted among non-blacks MDRD (S/P/Bld) [Vol rate/Area] 104 mL/min/{1.73_m2} >60 [facility] Comment on above: mL/min/1.73m2 CKD-EP I Creatinine Equation (2020) Hemoglobin measurementOrdere d By: John Catherine on 02-22-2025 Hemoglobin (Bld) [Mass/Vol] 13.3 g/dL Normal 12.0-15.0 [facility] Comment on above: Performed By: #### L 501.080 #### [facility] [address] [place], [address] Immature granulocytes/100 WB C Auto (Bld)Ordered By: John Catherine on 02-22-2025 Immature granulocytes/100 WBC (Bld) 0.400 % 0.0-0.9 [facility] Comment on above: IG% - Immature Granu locytes (promyelocytes, myelocytes and metamyelocytes) > 1% indicates that a LEFT SHIFT is Present. L501.4021on 02-22-2025 Trop T High Sen 181 ng/L Invalid Interpretation Code <=14 [facility] Comment on above: Result Comment: Crit ical Result(s) Called MMARTIN at: 1905 by: ALYX??Results read back by same. Performed By: #### L 300.3900, L500.2500, L501.5200, L501.2300, L100.0100 #### [facility] [address] [facility] [place], [address] MCV (mean corpuscular volume ) determinationOrdered By: John Catherine on 02-22-2025 MCV (RBC) [Entitic vol] 89.3 fL Normal 81-99 [facility] Comment on above: Performed By: #### L 501.080 #### [facility] [address] [facility] [place], [address] Mean corpuscular hemoglobin (MCH) determinationOrdered By: John Catherine on 02-22-2025 MCH (RBC) [Entitic mass] 31.0 pg Normal 27.0-32.0 [facility] Comment on above: Performed By: #### L 501.080 #### [facility] [address] [facility] [place], [address] Mean corpuscular hemoglobin concentration (MCHC) determinationOrdered By: John Catherine on 02-22-2025 MCHC (RBC) [Mass/Vol] 34.7 g/dL Normal 32-36 [facility] Comment on above: Performed By: #### L 501.080 #### [facility] [address] [place], [place], [address] Mean platelet volume determi nationOrdered By: John Catherine on 02-22-2025 Platelet mean volume (Bld) [Entitic vol] 10.0 fL Normal 6.2-12.0 [facility] Comment on above: Performed By: #### L 501.080 #### [facility] [address] [place], [address] Monocyte percentageOrdered B y: John Catherine on 02-22-2025 Monocytes/100 WBC (Bld) 11.0 % High 0-10 [facility] Comment on above: Performed By: #### L 501.080 #### [facility] [address] [place], [place], [address] Natriuretic peptide.B prohor ten N-Terminal [Mass/volume] in Serum or PlasmaOrdered By: John Catherine on 02-22-2025 Natriuretic peptide.B prohormone N-Terminal [Mass/Vol] 3685 pg/mL High <900 [facility] Comment on above: Heart Failure Unlike ly: < 300 pg/mLHeart Failure Likely< 50 Years: > 450 pg/mL50-75 Years: > 900 pg/mL>75 Years: > 1800 pg/mL Neutrophil percentageOrdered By: John Catherine on 02-22-2025 Neutrophils/100 WBC (Bld) 48.8 % Normal 47-70 [facility] Comment on above: Performed By: #### L 501.080 #### [facility] [address] [place], [place], [address] Nucleated red blood cell per centageOrdered By: John Catherine on 02-22-2025 Nucleated RBC/100 WBC (Bld) [Ratio] 0 % 0-5 [facility] Platelet countOrdered By: Rosalva Catherine on 02-22-2025 Platelets (Bld) [#/Vol] 278 10*3/uL Normal 150-450 [facility] Comment on above: Performed By: #### L 501.080 #### [facility] [address] [place], [place], [address] Potassium measurement (mass/ volume)Ordered By: John Catherine on 02-22-2025 Potassium (Unsp spec) [Mass/Vol] 3.6 mmol/L 3.3-5.1 [facility] Pro- Brain NATRIURETIC PEPTI Francy 02-22-2025 Natriuretic peptide B (Bld) [Mass/Vol] 3685 pg/mL High <=900 [facility] Comment on above: Result Comment: Hear t Failure Unlikely: < 300 pg/mL Heart Failure Likely < 50 Years: > 450 pg/mL 50-75 Years: > 900 pg/mL >75 Years: > 1800 pg/mL Performed By: #### L 501.080 #### [facility] [address] [facility] [place], [place], [address] Serum creatinine measurement (mass/volume)Ordered By: John Catherine on 02-22-2025 Creatinine [Mass/Vol] 0.57 mg/dL Low 0.70-1.20 [facility] Serum glucose measurement (m ass/volume)Ordered By: John Catherine on 02-22-2025 Glucose [Mass/Vol] 270 mg/dL High 70-99 [facility] Serum or plasma calcium delgado urement (mass/volume)Ordered By: John Catherine on 02-22-2025 Calcium [Mass/Vol] 9.3 mg/dL 7.6-11.0 [facility] Serum or plasma urea nitroge n measurement (mass/volume)Ordered By: John Catherine on 02-22-2025 Urea nitrogen [Mass/Vol] 9 mg/dL 4-19 [facility] Sodium levelOrdered By: Bryan Catherine on 02-22-2025 Sodium [Moles/Vol] 139 mmol/L 133-145 [facility] Troponin T HS 2 HRon 025 Trop T High Sen 160 ng/L Invalid Interpretation Code <=14 [facility] Comment on above: Result Comment: Crit ical Result(s) Called MMARTIN at:2003 by: ALYX??Results read back by same. Performed By: #### L 499.0042 ####[facility] [address] [place], [place], [address] Troponin T.cardiac [Mass/vol ume] in Serum or Plasma by High sensitivity methodOrdered By: John Catherine on 02-22-2025 Troponin T.cardiac High sensitivity method [Mass/Vol] 164 ng/L High <14 [facility] Comment on above: Critical Result(s) C alled at: 0008 by: MISHEL CASANOVA TO [employer]. Results read back by same. Troponin T.cardiac High sensitivity method [Mass/Vol] 160 ng/L High <14 [facility] Comment on above: Critical Result(s) C alled MMARTIN at:2004 by: ALYX Results read back by same. Troponin T.cardiac High sensitivity method [Mass/Vol] 181 ng/L High <14 [facility] Comment on above: Critical Result(s) C alled MMARTIN at: 1905 by: ALYX Results read back by same. White blood cell (WBC) count Ordered By: John Catherine on 02-22-2025 WBC (Bld) [#/Vol] 7.8 10*3/uL Normal 4.4-11.0 [facility] Comment on above: Performed By: #### L 501.080 #### [facility] [address] [place], [place], [address] CNPTita 01-25-2025 CNPN Telephone ([facility]) LINA ISAAC ([id number]) 1965 F Date Time Provider Department 01/25/25 SUSANA GARCIA [facility] During your visit today, we recorded the following information about you: Susana Garcia lindsay 01/25/2025 1:43 PM Signed BMP WNL since starting Jardiance and A1c showing improvement to 9.6% (from 10.4% on 12/30/24). Jardiance dose recently increased at recent pharmacy visit. Next PharmD f/up on 02/25/25 Susana Garcia, PharmD, BCACP [facility] [employer] [facility] Manager Allergies As of Date: 01/25/2025 Noted Allergy [...] cough. - Oral Medication Containers (SHARPS CONTAINER) [facility] Use to collect sharps as directed. - flash glucose scanning reader (FREESTYLE MICHI 3 READER) Use to monitor blood glucose continuously - Insulin [place], Disposable, (UNIFINE PENTIPS) 31 gauge x 3/16 [...] (BAQSIMI) 3 mg/actuation nasal spray Use 1 [place] in the nose as needed for low [...] Reaction, situatio (more content not included)... Normal [facility] Basic metabolic 2000 panelon 01-21-2025 Anion gap [Moles/Vol] 13 mmol/L Normal 8-15 [facility] Comment on above: Order Comment: Speci men Type: BLOOD SPECIMENOrdering Facility: [facility] Address: [address] [place] [address] Performed By: #### 2 4321-2 ####[facility] LABCLIA [id number] [place] [address] [place] Calcium [Mass/Vol] 9.7 mg/dL Normal 8.5-10.2 [facility] Comment on above: Order Comment: Speci men Type: BLOOD SPECIMENOrdering Facility: [facility] Address: [address] [id number] Performed By: #### 2 4321-2 ####[facility] LABCLIA [id number] [place] [address] [place] Chloride [Moles/Vol] 103 mmol/L Normal 98-107 [facility] Comment on above: Order Comment: Speci men Type: BLOOD SPECIMENOrdering Facility: [facility] Address: [address] [place], [place] [address] Performed By: #### 2 4321-2 ####[facility] LABCLIA [id number] [place] [id number] [place] CO2 [Moles/Vol] 22 mmol/L Normal 22-30 [facility] Comment on above: Order Comment: Speci men Type: BLOOD SPECIMENOrdering Facility: [facility] Address: [address] [place] [address] Performed By: #### 2 4321-2 ####[facility] LABIA [id number] [place] [address] [place] Creatinine [Mass/Vol] 0.44 mg/dL Low 0.58-0.96 [facility] Comment on above: Order Comment: Speci men Type: BLOOD SPECIMENOrdering Facility: [facility] Address: [address] [place] [address] Performed By: #### 2 4321-2 ####[facility] LABIA [id number] [place] [address] [place] Creatinine and Glomerular filtration rate.predicted panel (S/P/Bld) 111 mL/min/1.73m??? Normal >=60 [facility] Comment on above: Order Comment: Speci men Type: BLOOD SPECIMENOrdering Facility: [facility] Address: [address] [place] [address] Result Comment: Iwona mated Glomerular Filtration Rate [...] actual GFR. Performed By: #### 2 4321-2 ####[facility] LABCLIA [id number] [place] [id number] [place] Glucose [Mass/Vol] 235 mg/dL High 74-99 [facility] Comment on above: Order Comment: Yuliet angulo Type: BLOOD SPECIMENOrdering Facility: [facility] Address: [address] [place] [address] Result Comment: The [place] Diabetes Association (ADA) provides guidance for cutoff [...] Standards of Medical Care in Diabetes 2016, [place] Diabetes Association. Diabetes Care. 2016.39(Suppl 1). Performed By: #### 2 4321-2 ####[facility]CLIA [id number] [place] [address] [place] Potassium [Moles/Vol] 3.9 mmol/L Normal 3.7-5.1 [facility] Comment on above: Order Comment: Yuliet angulo Type: BLOOD SPECIMENOrdering Facility: [facility] Address: [address] [place] [address] Performed By: #### 2 4321-2 ####[facility] LABCLIA [id number] [place] [id number] [place] Sodium [Moles/Vol] 138 mmol/L Normal 136-144 [facility] Comment on above: Order Comment: Yuliet angulo Type: BLOOD SPECIMENOrdering Facility: [facility] Address: [address] [place], [place] [address] Performed By: #### 2 4321-2 ####[facility] LABCLIA [id number] [address] [address] [place] Urea nitrogen [Mass/Vol] 10 mg/dL Normal 7-21 [facility] Comment on above: Order Comment: Speci men Type: BLOOD SPECIMENOrdering Facility: [facility] Address: [address] [place] [address] Performed By: #### 2 4321-2 ####[facility] LABCLIA [id number] [place] [address] [facility] CNOVon 01-21-2025 CNOV Office Visit (PHMEWO) LINA ISAAC ([id number]) 1965 F Date Time Provider Department 01/21/25 3:00 PM SUSANA GARCIA [facility] During your visit today, we [...] any Novolog today because she needs to bulk picker refill Confirmed starting Jardiance and tolerating [...] capsule 1 Oral Medication Containers (SHARPS CONTAINER) [facility] Use to collect sharps as directed. 1 Each 0 flash glucose scanning reader (FREESTYLE MICHI 3 READER) Use to monitor blood glucose continuously 1 Each 0 Insulin [place], Disposable, (UNIFINE PENTIPS) 31 gauge x 3/16 Use as directed 4 times daily with insulin 400 Each 3 FLUoxetine (PROZAC) 20 mg capsule Take 1 capsule by mouth once daily. In the morning, for depression 90 capsule 1 gabapentin (NEURONTIN) 100 mg capsule Take 1 (more content not included)... Normal [facility] HbA1c (Bld)on 01-21-2025 Average glucose Estimated from glycated hemoglobin (Bld) [Mass/Vol] 229 mg/dL [facility] Comment on above: eAG: (Estimated aver age glucose) is a calculated value from HgbA1c and is civil rights representative of the average blood glucose level in the last 2-3 month period. HbA1c (Bld) [Mass fraction] 9.6 % High 4.3 - 5.6 % [facility] Comment on above: [place] Diabetes As sociation guidelines indicate that patients with HgbA1c in the range 5.7-6.4% are at increased risk for development of diabetes, and intervention by lifestyle modification may be beneficial. HgbA1c greater or equal to 6.5% is considered diagnostic of diabetes. Interpretation and review of laboratory results Abnormal [facility] Average glucose Estimated from glycated hemoglobin (Bld) [Mass/Vol] 229 mg/dL Normal [facility] Comment on above: Order Comment: Yuliet angulo Type: BLOOD SPECIMENOrdering Facility: [facility] Address: [address] [place] [address] Result Comment: eAG: (Estimated average glucose) is a calculated value from HgbA1c and is civil rights representative of the average blood glucose level in the last 2-3 month period. Performed By: #### 5 5454-3 ####[facility] LABIA [id number] [place] [address] [place] HbA1c (Bld) [Mass fraction] 9.6 % High 4.3-5.6 [facility] Comment on above: Order Comment: Yuliet angulo Type: BLOOD SPECIMENOrdering Facility: [facility] Address: [address] [place] [address] Result Comment: [place] Diabetes Association guidelines indicate that patients with HgbA1c in the range 5.7-6.4% are at increased risk for development of diabetes, and intervention by lifestyle modification may be beneficial. HgbA1c greater or equal to 6.5% is considered diagnostic of diabetes. Performed By: #### 5 5454-3 ####[facility] LABIA [id number] [address] [place] CNOVon 12-30-2024 CNOV Office Visit (FAMPWS) LINA ISAAC ([id number]) 1965 F Date Time Provider Department 12/30/24 [...] pad and topical Voltaren. She has taken [place] with relief when pain is severe. Right [...] 1ST INCAL (more content not included)... Normal [facility] HEMOGLOBIN A1C (POC)on 12-30 HbA1c (Bld) [Mass fraction] 10.4 % Abnormal 4.3 - 5.6 % [facility] Comment on above: Location:[address], [place], [address] Point of care (POC) Hemoglobin A1c (HGBA1C) [...] specific diabetes management situations: The POC device crts provides a normal range of 4.2% to 6.5% for the HGBA1C POC test. However, the [place] Diabetes Association guidelines indicate that patients with [...] Interpretation and review of laboratory results Abnormal [facility] US DVT LOWER LTon 12-11-2024 US [...] imaged segments of the left lower extremity. Generation Manager: SANTOSH Transcribe Date/Time: Dec 13 2024 9:12A Dictated by : TAMARA PORTILLO MD This examination was interpreted and the report reviewed and electronically signed by: TAMARA PORTILLO MD on Dec 13 2024 9:12AM EST [id number] Normal [facility] CNOVon 12-10-2024 CNOV Office Visit (FAMPWS) LINA ISAAC ([id number]) 1965 F Date Time Provider Department 12/10/24 2:20 PM NATALI KLEIN During your visit today, we recorded the following information about you: Pulse Respiration Blood pressure Weight 90/minute 12/minute 120/70 94.5 kg Natali Klein APRN.[employer] 12/10/2024 2:46 PM Signed Get your ultasound [...] DRISDOL) Aditya (more content not included)... Normal [facility] CNOVon 11-26-2024 CNOV Office Visit (MEWO) LINA ISAAC ([id number]) 1965 F Date Time Provider Department 11/26/24 2:30 PM SUSANA GARCIA [facility] During your visit today, we [...] capsule 1 Oral Medication Containers (SHARPS CONTAINER) [facility] Use to collect sharps as directed. 1 Each 0 flash glucose scanning reader (FREESTYLE MICHI 3 READER) Use to monitor blood glucose continuously 1 Each 0 Insulin [place], Disposable, (UNIFINE PENTIPS) 31 gauge x 3/16 Use as directed 4 times daily with insulin 400 Each 3 FLUoxetine (PROZAC) 20 mg capsule Take 1 capsule by mouth once daily. In the morning, for depression 90 capsule 1 gabapentin (NEURONTIN) 100 mg capsule Take 1-2 capsules by mouth daily at bedtime for 30 (more content not included)... Normal [facility] CNOVon 10-29-2024 CNOV Office Visit (PHMEWO) LINA ISAAC ([id number]) 1965 F Date Time Provider Department 10/29/24 2:30 PM SUSANA GARCIA During your visit today, we recorded the following information about you: Susana Garcia [facility] 10/29/2024 3:09 PM Signed Primary Care Pharmacy [...] capsule 1 Oral Medication Containers (SHARPS CONTAINER) [facility] Use to collect sharps as directed. 1 Each 0 flash glucose scanning reader (FREESTYLE MICHI 3 READER) Use to monitor blood glucose continuously 1 Each 0 Insulin [place], Disposable, (UNIFINE PENTIPS) 31 gauge x 3/16 Use as directed 4 times daily with insulin 400 Each 3 FLUoxetine (PROZAC) 20 mg capsule Take 1 capsule by mouth once daily. In the morning, for depression 90 capsule 1 gabapentin (NEURONTIN) 100 mg capsule Aditya (more content not included)... Normal [facility] CNOVon 09-23-2024 CNOV Office Visit (FAMPWS) PONCHOOTISYUEJOHNNY Del Angel ([id number]) 1965 F Date Time Provider Department 09/23/24 3:[address] [facility] During your visit today, we recorded [...] ventrio S (more content not included)... Normal [facility] HEMOGLOBIN A1C (POC)on 09-23 HbA1c (Bld) [Mass fraction] 11.2 % Abnormal 4.3 - 5.6 % [facility] Comment on above: Location:[facility] [place], [address] [place] [address], [place], [address] Point of care (POC) Hemoglobin A1c (HGBA1C) [...] specific diabetes management situations: The POC device crts provides a normal range of 4.2% to 6.5% for the HGBA1C POC test. However, the [place] Diabetes Association guidelines indicate that patients with [...] Interpretation and review of laboratory results Abnormal [facility] CNOVon 07-23-2024 CNOV Office Visit (PHMEWO) LINA ISAAC ([id number]) 1965 F Date Time Provider Department 07/23/24 2:30 PM [facility] your visit today, we [...] capsule 1 Oral Medication Containers (SHARPS CONTAINER) [facility] Use to collect sharps as directed. 1 Each 0 flash glucose scanning reader (FREESTYLE MICHI 3 READER) Use to monitor blood glucose continuously 1 Each 0 insulin aspart U-100 (NOVOLOG U-100 INSULIN ASPART) 100 unit/mL Inject 16 units subcutaneously as directed plus sliding scale with meals. Insulin [place], Disposable, (UNIFINE PENTIPS) 31 gauge x 3/16 [...] (BAQSIMI) 3 mg/actuation nasal spray Use 1 [place] in the nose as needed (more content not included)... Normal [facility] 07-21-2024 [facility] Telephone (ORTHWS) LINA ISAAC ([id number]) 1965 F Date Time Provider Department 07/21/24 [...] cough. - Oral Medication Containers (SHARPS CONTAINER) [facility] Use to collect sharps as directed. - flash glucose scanning reader (FREESTYLE MICHI 3 READER) Use to monitor blood glucose continuously - insulin aspart U-100 (NOVOLOG U-100 INSULIN ASPART) 100 unit/mL Inject 16 units subcutaneously as directed plus sliding scale with meals. - Insulin [place], Disposable, (UNIFINE PENTIPS) 31 gauge x 3/16 [...] (BAQSIMI) 3 mg/actuation nasal spray Use 1 [place] in the nose as needed for low [...] [F43.0] 05/18/2010 (more content not included)... Normal [facility] FRUCTOSAMINE BLDon Fructosamine [Moles/Vol] 468 umol/L High 205 - 285 umol/L [facility] Fructosamine [Moles/Vol]on 1 Interpretation and review of laboratory results Abnormal [facility] HbA1c (Bld)on 07-21-2024 Average glucose Estimated from glycated hemoglobin (Bld) [Mass/Vol] 255 mg/dL [facility] Comment on above: eAG: (Estimated aver age glucose) is a calculated value from HgbA1c and is civil rights representative of the average blood glucose level in the last 2-3 month period. HbA1c (Bld) [Mass fraction] 10.5 % High 4.3 - 5.6 % [facility] Comment on above: [place] Diabetes As sociation guidelines indicate that patients with HgbA1c in the range 5.7-6.4% are at increased risk for development of diabetes, and intervention by lifestyle modification may be beneficial. HgbA1c greater or equal to 6.5% is considered diagnostic of diabetes. Interpretation and review of laboratory results Abnormal [facility] CNOVon 07-20-2024 CNOV Office Visit (ORTHWS) LINA ISAAC ([id number]) 1965 F Date Time Provider Department 07/20/24 3:45 PM JOHN BROWN During your visit today, we recorded the following information about you: John Brown MD 08/02/2024 9:35 AM Signed John Brown MD Department of Orthopaedics Orthopaedics [address] [facility] [address] Dept: [phone] Dept July 20, 2025 CHIEF COMPLAINT: New of the Right Hand HPI Patient c/o R hand pain x1 mo. No known injury. Patient reports hand tight and locks when she makes fist. Trouble twisting, opening jars/doors, etc. PCP worked up for gout and pt was on abx with no relief. 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 [...] hand. IMAGING: IMPRESSION: No acute osseous abnormality Generation Manager: [facility] Transcribe Date/Time: Jun 26 2024 12:23P Dictated [...] Start d (more content not included)... Normal [facility] Fructosamine SerPl-sCncon Fructosamine [Moles/Vol] 468 umol/L High 205-285 [facility] Comment on above: Order Comment: Speci men Type: BLOOD SPECIMENOrdering Facility: [facility] Address: [address] [place] [address] Performed By: #### 1 5069-8 ####[facility] LABCLIA [id number] [place] [address] [place] HbA1c (Bld)on 07-20-2024 Average glucose Estimated from glycated hemoglobin (Bld) [Mass/Vol] 255 mg/dL Normal [facility] Comment on above: Order Comment: Yuliet angulo Type: BLOOD SPECIMENOrdering Facility: [facility] Address: [address] [place] [address] Result Comment: eAG: (Estimated average glucose) is a calculated value from HgbA1c and is civil rights representative of the average blood glucose level in the last 2-3 month period. Performed By: #### 5 5454-3 ####[facility] LABCLIA [id number] [address] [facility] HbA1c (Bld) [Mass fraction] 10.5 % High 4.3-5.6 [facility] Comment on above: Order Comment: Yuliet angulo Type: BLOOD SPECIMENOrdering Facility: [facility] Address: [address] [place] [address] Result Comment: [place] Diabetes Association guidelines indicate that patients with HgbA1c in the range 5.7-6.4% are at increased risk for development of diabetes, and intervention by lifestyle modification may be beneficial. HgbA1c greater or equal to 6.5% is considered diagnostic of diabetes. Performed By: #### 5 5454-3 ####[facility] LABCLIA [id number] [address] [facility] LINA ISAAC ([id number]) 1965 F Date Time Provider Department 07/16/24 [facility] During your visit today, we recorded the [...] Fully Assessed Reason for Visit: Patient Question [4497] Primary Visit Diagnosis:Right hand pain [M79.641] Order(s):CONSULT TO ORTHOPAEDICS [9026] Order #: [id number]: 1 FUTURE Prescriptions as of 07/28/2024 - [...] cough. - Oral Medication Containers (SHARPS CONTAINER) [facility] Use to collect sharps as directed. - flash glucose scanning reader (FREESTYLE MICHI 3 READER) Use to monitor blood glucose continuously - Insulin [place], Disposable, (UNIFINE PENTIPS) 31 gauge x 3/16 [...] (BAQSIMI) 3 mg/actuation nasal spray Use 1 [place] in the nose as needed for low [...] Skin [ (more content not included)... Normal [facility] CNPTita 07-06-2024 CNPN Telephone (FAMPWS) LINA ISAAC ([id number]) 1965 F Date Time Provider Department 07/06/24 [facility] your visit today, we recorded the following information about you: Jese Zheng DO 07/06/2024 7:33 AM Addendum Please [...] (rash, skin lesions). - flash glucose sensor (Ironwood PharmaceuticalsYLE MICHI 14 DAY SENSOR) kit Apply sensor [...] day for 14 days. - Blood-Glucose Sensor (Ironwood PharmaceuticalsYLE MICHI 3 PLUS SENSOR) ingrid Use to [...] as directed. - flash glucose scanning reader (AilolaSTYLE MICHI 3 READER) Use to monitor blood glucose continuously - insulin aspart U-100 (NOVOLOG U-100 INSULIN ASPART) 100 unit/mL Inject 16 units subcutaneously as directed plus sliding scale with meals. - Insulin [place], Disposable, (UNIFINE PENTIPS) 31 gauge x 3/16 [...] (BAQSIMI) 3 mg/actuation nasal spray Use 1 [place] in the nose as needed for low [...] 05/18/2011 06/24/2012 Pelvic pain 07/10/2012 08/11/2015 Dyspareunia [[id number]] 07/10/2012 08/11/2015 Fibroids [D21.9] 07/10 (more content not included)... Normal [facility] CNPN Telephone ([facility]) LINA ISAAC ([id number]) 1965 F Date Time Provider Department 07/06/24 SUSANA GARCIA [facility] During your visit today, we recorded [...] Susana Garcia, PharmD, BCACP Primary [facility] Clinical Logistics Center Manager 07/06/2024 2:01 PM Allergies As of Date: [...] plus sliding scale with meals. - Insulin [place], Disposable, (UNIFINE PENTIPS) 31 gauge x 3/16 [...] (BAQSIMI) 3 mg/actuation nasal spray Use 1 [place] in the nose as needed for low [...] whether *05/13/2007 (more content not included)... Normal [facility] CBC W Auto Differential pane l (Bld)on 06-23-2024 Basophils (Bld) [#/Vol] 0.06 10*3/uL Normal <0.11 [facility] Comment on above: Order Comment: Speci men Type: BLOOD SPECIMENOrdering Facility: [facility] Address: [address] [place], [place] [address] Performed By: #### 4 537-7, 20715-3 ####[facility] LABCLIA [id number] [place] [address] [place] Basophils/100 WBC (Bld) 0.8 % Normal [facility] Comment on above: Order Comment: Speci men Type: BLOOD SPECIMENOrdering Facility: [facility] Address: [address] [place] [address] Performed By: #### 4 537-7, 23451-5 ####[facility] LABCLIA [id number] [place] [address] [place] Differential cell count method Nom (Bld) Auto Normal [facility] Comment on above: Order Comment: Speci men Type: BLOOD SPECIMENOrdering Facility: [facility] Address: [address] [place] [address] Performed By: #### 4 537-7, 81608-4 ####[facility] LABCLIA [id number] [place] [address] [place] Eosinophils (Bld) [#/Vol] 0.18 10*3/uL Normal <0.46 [facility] Comment on above: Order Comment: Speci men Type: BLOOD SPECIMENOrdering Facility: [facility] Address: [address] [place] [address] Performed By: #### 4 537-7, 90134-5 ####[facility] LABCLIA [id number] [place] [address] [place] Eosinophils/100 WBC (Bld) 2.5 % Normal [facility] Comment on above: Order Comment: Speci men Type: BLOOD SPECIMENOrdering Facility: [facility] Address: [address] [place] [address] Performed By: #### 4 537-7, 28832-5 ####[facility] LABCLIA [id number] [place] [address] [place] Erythrocyte distribution width (RBC) [Ratio] 11.9 % Normal 11.5-15.0 [facility] Comment on above: Order Comment: Speci men Type: BLOOD SPECIMENOrdering Facility: [facility] Address: [address] [place] [address] Performed By: #### 4 537-7, 89883-4 ####[facility] LABCLIA [id number] [place] [address] [place] Hematocrit (Bld) [Volume fraction] 40.1 % Normal 36.0-46.0 [facility] Comment on above: Order Comment: Speci men Type: BLOOD SPECIMENOrdering Facility: [facility] Address: [address] [place] [address] Performed By: #### 4 537-7, 47780-0 ####[facility] LABCLIA [id number] [place] [address] [place] Hemoglobin (Bld) [Mass/Vol] 13.6 g/dL Normal 11.5-15.5 [facility] Comment on above: Order Comment: Speci men Type: BLOOD SPECIMENOrdering Facility: [facility] Address: [address] [place] [address] Performed By: #### 4 537-7, 69177-4 ####[facility] LABCLIA [id number] [place] [address] [place] Immature granulocytes (Bld) [#/Vol] 0.04 10*3/uL Normal <0.10 [facility] Comment on above: Order Comment: Speci men Type: BLOOD SPECIMENOrdering Facility: [facility] Address: [address] [place] [address] Performed By: #### 4 537-7, 77764-6 ####[facility] LABCLIA [id number] [place] [address] [place] Immature granulocytes/100 WBC (Bld) 0.5 % Normal [facility] Comment on above: Order Comment: Speci men Type: BLOOD SPECIMENOrdering Facility: [facility] Address: [address] [place] [address] Performed By: #### 4 537-7, 88271-5 ####[facility] LABCLIA [id number] [place] [address] [place] Lymphocytes (Bld) [#/Vol] 3.41 10*3/uL Normal 1.00-4.00 [facility] Comment on above: Order Comment: Speci men Type: BLOOD SPECIMENOrdering Facility: [facility] Address: [address] [place] [address] Performed By: #### 4 537-7, 45904-4 ####[facility] LABIA [id number] [place] [address] [place] Lymphocytes/100 WBC (Bld) 46.6 % Normal [facility] Comment on above: Order Comment: Speci men Type: BLOOD SPECIMENOrdering Facility: [facility] Address: [address] [place] [address] Performed By: #### 4 537-7, 89439-2 ####[facility] LABIA [id number] [place] [address] [place] MCH (RBC) [Entitic mass] 31.0 pg Normal 26.0-34.0 [facility] Comment on above: Order Comment: Speci men Type: BLOOD SPECIMENOrdering Facility: [facility] Address: [address] [place] [address] Performed By: #### 4 537-7, 61433-9 ####[facility] LABIA [id number] [place] [id number] [place] MCHC (RBC) [Mass/Vol] 33.9 g/dL Normal 30.5-36.0 [facility] Comment on above: Order Comment: Speci men Type: BLOOD SPECIMENOrdering Facility: [facility] Address: [address] [place] [address] Performed By: #### 4 537-7, 67522-2 ####[facility] LABCLIA [id number] [place] [address] [place] MCV (RBC) [Entitic vol] 91.3 fL Normal 80.0-100.[address] [facility] Comment on above: Order Comment: Speci men Type: BLOOD SPECIMENOrdering Facility: [facility] Address: [address] [place] [address] Performed By: #### 4 537-7, 92222-5 ####[facility] LABIA [id number] [place] [address] [place] Monocytes (Bld) [#/Vol] 0.62 10*3/uL Normal <0.87 [facility] Comment on above: Order Comment: Speci men Type: BLOOD SPECIMENOrdering Facility: [facility] Address: [address] [place] [address] Performed By: #### 4 537-7, 92151-2 ####[facility] LABIA [id number] [place] [address] [place] Monocytes/100 WBC (Bld) 8.5 % Normal [facility] Comment on above: Order Comment: Speci men Type: BLOOD SPECIMENOrdering Facility: [facility] Address: [address] [place] [address] Performed By: #### 4 537-7, 24530-0 ####[facility] LABIA [id number] [place] [address] [place] Neutrophils (Bld) [#/Vol] 3.00 10*3/uL Normal 1.45-7.50 [facility] Comment on above: Order Comment: Speci men Type: BLOOD SPECIMENOrdering Facility: [facility] Address: [address] [place] [address] Performed By: #### 4 537-7, 98154-7 ####[facility] LABIA [id number] [place] [address] [place] Neutrophils/100 WBC (Bld) 41.1 % Normal [facility] Comment on above: Order Comment: Speci men Type: BLOOD SPECIMENOrdering Facility: [facility] Address: [address] [place] [address] Performed By: #### 4 537-7, 26926-3 ####[facility] LABCLIA [id number] [place] [address] [place] Nucleated RBC (Bld) [#/Vol] 10*3/uL Normal <0.01 [facility] Comment on above: Order Comment: Speci men Type: BLOOD SPECIMENOrdering Facility: [facility] Address: [address] [place] [address] Performed By: #### 4 537-7, 18956-3 ####[facility] LABCLIA [id number] [place] [address] [place] Nucleated RBC/100 WBC (Bld) [Ratio] 0.0 /100 WBC Normal [facility] Comment on above: Order Comment: Speci men Type: BLOOD SPECIMENOrdering Facility: [facility] Address: [address] [place] [address] Performed By: #### 4 537-7, 57460-8 ####[facility] LABCLIA [id number] [place] [address] [place] Platelet mean volume (Bld) [Entitic vol] 10.0 fL Normal 9.0-12.7 [facility] Comment on above: Order Comment: Speci men Type: BLOOD SPECIMENOrdering Facility: [facility] Address: [address] [place] [address] Performed By: #### 4 537-7, 15278-0 ####[facility] LABCLIA [id number] [place] [address] [place] Platelets (Bld) [#/Vol] 259 10*3/uL Normal 150-400 [facility] Comment on above: Order Comment: Speci men Type: BLOOD SPECIMENOrdering Facility: [facility] Address: [address] [place] [address] Performed By: #### 4 537-7, 38685-7 ####[facility] LABCLIA [id number] [place] [address] [place] RBC (Bld) [#/Vol] 4.39 10*6/uL Normal 3.90-5.20 [facility] Comment on above: Order Comment: Speci men Type: BLOOD SPECIMENOrdering Facility: [facility] Address: [address] [place] [address] Performed By: #### 4 537-7, 24622-3 ####[facility] LABCLIA [id number] [place] [address] [place] WBC (Bld) [#/Vol] 7.31 10*3/uL Normal 3.70-11.00 [facility] Comment on above: Order Comment: Speci men Type: BLOOD SPECIMENOrdering Facility: [facility] Address: [address] [place] [address] Performed By: #### 4 537-7, 32702-5 ####[facility] LABCLIA [id number] [place] [address] [place] CNOVon 06-23-2024 CNOV Office Visit (FAMPWS) LINA ISAAC ([id number]) 1965 F Date Time Provider Department 06/23/24 [...] Tubal ligat (more content not included)... Normal [facility] CRP [Mass/Vol] 0.3 mg/dL Normal <0.9 [facility] Comment on above: Order Comment: Speci men Type: BLOOD SPECIMENOrdering Facility: [facility] Address: [address] [place] [address] Performed By: #### 1 988-5, 3084-1 ####[facility] [id number] [place] [address] [place] ESR Westergren method (Bld) [Velocity]on 06-23-2024 ESR (Bld) [Velocity] 15 mm/h Normal 0-20 [facility] Comment on above: Order Comment: Speci men Type: BLOOD SPECIMENOrdering Facility: [facility] Address: [address] [place] [address] Performed By: #### 4 537-7, 93001-3 ####[facility] [id number] [place] [address] [place] [facility] U[facility] [Mass/Vol] 3.2 mg/dL Normal 2.5-6.6 [facility] Comment on above: Order Comment: Speci men Type: BLOOD SPECIMENOrdering Facility: [facility] Address: [address] [place] [address] Performed By: #### 1 988-5, 3084-1 ####[facility] [id number] [place] [address] [place] XR HAND 3V [...] periarticular erosions. IMPRESSION: No acute osseous abnormality Generation Manager: PSCB Transcribe Date/Time: Jun 26 2024 12:23P Dictated by : MARTHA MCMULLEN MD This examination was interpreted and the report reviewed and electronically signed by: MARTHA MCMULLEN MD on Jun 26 2024 12:25PM EST [id number] CN Normal [facility] ([id number]) 1965 F Date Time Provider Department 05/05/[address] [facility] During your visit today, we recorded [...] she is taking vitamin D3 at least 6875-1260 international unit(s) a day with a meal [...] Date Reviewed: 04/23/2024 Reviewed by: Susana Garcia [facility] - Fully Assessed Order(s):ergocalcife rol 50,000 unit [...] cough. - Oral Medication Containers (SHARPS CONTAINER) [facility] Use to collect sharps as directed. - flash glucose scanning reader (FREESTYLE MICHI 3 READER) Use to monitor blood glucose continuously - insulin aspart U-100 (NOVOLOG U-100 INSULIN ASPART) 100 unit/mL Inject 16 units subcutaneously as directed plus sliding scale with meals. - Insulin [place], Disposable, (UNIFINE PENTIPS) 31 gauge x 3/16 [...] (BAQSIMI) 3 mg/actuation nasal spray Use 1 [place] in the nose as needed for low [...] sugar diagnostic (more content not included)... Normal [facility] Randal 05-04-2024 CNPN Telephone (INTMWS) LINA ISAAC ([id number]) 1965 F Date Time Provider Department 05/04/24 JESE ZHENG IN[facility] During your visit today, we recorded the following information about you: Rivka Ramírez LPN 05/04/2024 12:02 PM Signed prior authorization approved Payer: [facility] [phone] Note from payer: Your PA request cannot be processed electronically. For further inquiries please contact the number on the back of the member prescription card. (Message [phone]) Electronic appeal: Not supported View History Medication Being Authorized Blood-Glucose Sensor (FREESTYLE MICHI 3 PLUS SENSOR) ingrid Use to monitor glucose continuously and replace sensor every 15 days Dispense: 6 Each Refills: 3 Start: 05/04/2024 Class: Normal This order has been released to its destination. To be filled at: [facility] [address] [place] [address] - [address] [facility] - [phone] Allergies As of Date: 05/04/2024 Noted Allergy Reaction OMNICEF (CEFDINIR) 07/10/2019 9 - Itching Comments: Vaginitis severe PROVENTIL (ALBUTEROL SULFATE) 10/10/2006 11 - Vomiting Comments: Can not tolerate generic albuterol 08/22/12 - MEM. TRAMADOL 03/21/2005 4 - Hives Date Reviewed: 04/23/2024 Reviewed by: Susana Garcia [facility] - Fully Assessed Reason for Visit: Insurance [...] daily. - Oral Medication Containers (SHARPS CONTAINER) [facility] Use to collect sharps as directed. - flash glucose scanning reader (FREESTYLE MICHI 3 READER) Use to monitor blood glucose continuously - insulin aspart U-100 (NOVOLOG U-100 INSULIN ASPART) 100 unit/mL Inject 16 units subcutaneously as directed plus sliding scale with meals. - Insulin [place], Disposable, (UNIFINE PENTIPS) 31 gauge x 3/16 [...] (BAQSIMI) 3 mg/actuation nasal spray Use 1 [place] in the nose as needed for low [...] [M79.609] 10/15/19 (more content not included)... Normal [facility] CNOVon 04-23-2024 CNOV Office Visit (PHMEWO) LINA ISAAC ([id number]) 1965 F Date Time Provider Department 04/23/24 [...] capsule 3 Oral Medication Containers (SHARPS CONTAINER) [facility] Use to collect sharps as directed. 1 [...] directed plus sliding scale with meals. Insulin [place], Disposable, (UNIFINE PENTIPS) 31 gauge x 3/16 [...] (BAQSIMI) 3 mg/actuation nasal spray Use 1 [place] in the nose as needed for low [...] as need (more content not included)... Normal [facility] CNCOon 04-15-2024 CNCO HNO ID: [id number] Author: COORDINATOR, MAMMOGRAPHY, ? Service: ? Author Type: Physician Type: Letter Filed: 04/15/2024 15:17 Note Text: [address] [address] April 16, 2024 PID: [id number] Lina Isaac [address] [place] [address] Dear Ms. Isaac, We are pleased to [...] report will be kept on file at [facility] as part of your permanent medical record and are available for your continuing care. Thank you for allowing us to help in meeting your health care needs. Sincerely, Dr. Rudd Interpreting Radiologist [facility] (Normal over 40) Normal [facility] DBT Breast - bilateral scree stephen 04-15-2024 IMPRESSION: NEGATIVE There is no mammographic evidence of malignancy. A 1 year screening mammogram is recommended. Chichi aguilar/bhupinder:04/15/2024 15:17:05 4Th Grade Teacher(s): Luisito Craven)(Mehdi), [facility] letter sent: Normal over 40 Mammogram [...] Health, Family Medicine, and Medical/Surgical Oncology, the [facility] has carefully reviewed the data and [...] their providers when to stop screening mammograms. Generation Manager: Bhupinder Transcribe Date/Time: Apr 14 2024 4:47P Dictated by : CHICHI RUDD MD This examination was interpreted and the report reviewed and electronically signed by: CHICHI RUDD MD on Apr 15 2024 3:17PM [facility] RAD[facility] SYNGO * * *Final Report* * * DATE OF EXAM: Apr 14 2024 5:30PM [facility] 0582 - [facility]TE[facility] SCREENING W CAROLYN / PROCEDURE REASON: Encounter for screening mammogram for breast cancer * * * * Physician Interpretation * * * * #[id number] - CHANTELL SCREENING W CAROLYN BILATERAL DIGITAL [...] 09/06/2022 mammogram, 08/22/2021 mammogram, 08/17/2020 mammogram - [facility], and 07/21/2019 mammogram - [facility]. The breasts are almost entirely fatty. No significant masses, calcifications, or other findings are seen in either breast. There has been no significant interval change. [facility]GO Provider, [facility] [place] - 04/15/2024 * * *Final Report* * * DATE OF EXAM: Apr 14 2024 5:30PM [facility] 0582 - [facility] SCREENING W CAROLYN / PROCEDURE REASON: Encounter for screening mammogram for breast cancer * * * * Physician Interpretation * * * * #[id number] - [facility] SCREENING W CAROLYN BILATERAL DIGITAL SCREENING MAMMOGRAM [...] 09/06/2022 mammogram, 08/22/2021 mammogram, 08/17/2020 mammogram - [facility], and 07/21/2019 mammogram - [facility]. The breasts are almost entirely fatty. No significant masses, calcifications, or other findings are seen in either breast. There has been no significant interval change. IMPRESSION IMPRESSION: NEGATIVE There is no mammographic evidence of malignancy. A 1 year screening mammogram is recommended. Chichi aguilar/bhupinder:04/15/2024 15:17:05 4Th Grade Teacher(s): Luisito Craven)(M), [facility] letter sent: Normal over 40 Mammogram [...] Health, Family Medicine, and Medical/Surgical Oncology, the [facility] has carefully reviewed the data and [...] their providers when to stop screening mammograms. Generation Manager: Bhupinder Transcribe Date/Time: Apr 14 2024 4:47P Dictated by : CHICHI RUDD MD This examination was interpreted and the report reviewed and electronically signed by: CHICHI RUDD MD on Apr 15 2024 3:17PM EST [facility] DBT Breast - bilateral scree ningOrdered By: Ccf Provider on 04-15-2024 [facility] DBT Breast - bilateral scree ningon 04-14-2024 Radiology Study observation (narrative) [facility] CHANTELL SCREENING W TOMOon 04-14 CHANTELL SCREENING W CAROLYN * * *Final Report* * * DATE OF EXAM: Apr 14 2024 5:30PM [facility] 0582 - [facility]ANTELL SCREENING W CAROLYN / PROCEDURE REASON: Encounter for screening mammogram for breast cancer * * * * Physician Interpretation * * * * #[id number] - [facility]TELL SCREENING W CAROLYN BILATERAL DIGITAL [...] 09/06/2022 mammogram, 08/22/2021 mammogram, 08/17/2020 mammogram - [facility], and 07/21/2019 mammogram - [facility]. The breasts are almost entirely fatty. No significant masses, calcifications, or other findings are seen in either breast. There has been no significant interval change. IMPRESSION: NEGATIVE There is no mammographic evidence of malignancy. A 1 year screening mammogram is recommended. Chichi aguilar/bhupinder:04/15/2024 15:17:05 4Th Grade Teacher(s): Luisito Craven (Zachariah)(M), [facility] letter sent: Normal over 40 Mammogram [...] Health, Family Medicine, and Medical/Surgical Oncology, the [facility] has carefully reviewed the data and [...] their providers when to stop screening mammograms. Generation Manager: Bhupinder Transcribe Date/Time: Apr 14 2024 4:47P Dictated by : CHICHI RUDD MD This examination was interpreted and the report reviewed and electronically signed by: CHICHI RUDD MD on Apr 15 2024 3:17PM EST [id number] CN Normal [facility] 25(OH)D3 [facility] 2023 25-hydroxyvitamin D3 [Mass/Vol] 13.8 ng/mL Low 31.0-80.0 [facility] Comment on above: Order Comment: Speci men Type: BLOOD SPECIMENOrdering Facility: [facility] Address: [address] [place] [address] Result Comment: Clas sification of 25 [place] Vitamin D status: Deficiency/Insufficiency: < or = 30 ng/ml. Sufficiency/Optimal Levels: 31-80 ng/mL Toxicity: > 100 ng/mL. Test performed by chemiluminescent immunoassay. Performed By: #### 1 989-3 ####[facility]CLIA [id number] [place] [address] [place] ALBUMIN/CREATININE RATIO, UR INEon 03-19-2024 Albumin DL <= 20 mg/L (U) [Mass/Vol] 39.2 mg/L Normal [facility] Comment on above: Order Comment: Speci men Type: URINE SPECIMENOrdering Facility: [facility] Address: [address] [place] [address] Performed By: #### U ACR ####[facility] LABIA [id number] [place] [address] [place] Albumin/Creatinine (U) [Mass ratio] 26 mg/g Normal <30 [facility] Comment on above: Order Comment: Speci men Type: URINE SPECIMENOrdering Facility: [facility] Address: [address] [place] [address] Result Comment: Adul t Male and Female Nephrotic Criteria: <30 mg/g is considered normal to mildly increased 30-300 mg/g is considered moderately increased >300 mg/g is considered severely increased KDIGO. (2013). KDIGO 2012 Clinical Practice Guideline for the Evaluation and Management of Chronic Kidney Disease. Official Journal of the International Society of Nephrology, 3(1), 1-150. Performed By: #### U ACR ####[facility] [id number] [place] [address] [place] Creatinine (U) [Mass/Vol] 148.3 mg/dL Normal 20.0-300.0 [facility] Comment on above: Order Comment: Speci men Type: URINE SPECIMENOrdering Facility: [facility] Address: [address] [place] [address] Performed By: #### U ACR ####[facility] LABCLIA [id number] [place] [address] [place] CBC W Auto Differential pane l (Bld)on 03-19-2024 Basophils (Bld) [#/Vol] 0.05 10*3/uL Normal <0.11 [facility] Comment on above: Order Comment: Speci men Type: BLOOD SPECIMENOrdering Facility: [facility] Address: [address] [place] [address] Performed By: #### 5 7021-8 ####[facility]CLIA [id number] [place] [address] [place] Basophils/100 WBC (Bld) 0.9 % Normal [facility] Comment on above: Order Comment: Speci men Type: BLOOD SPECIMENOrdering Facility: [facility] Address: [address] [place] [address] Performed By: #### 5 7021-8 ####[facility]CLIA [id number] [place] [address] [place] Differential cell count method Nom (Bld) Auto Normal [facility] Comment on above: Order Comment: Speci men Type: BLOOD SPECIMENOrdering Facility: [facility] Address: [address] [place] [address] Performed By: #### 5 7021-8 ####[facility]CLIA [id number] [place] [address] [place] Eosinophils (Bld) [#/Vol] 0.15 10*3/uL Normal <0.46 [facility] Comment on above: Order Comment: Speci men Type: BLOOD SPECIMENOrdering Facility: [facility] Address: [address] [place] [address] Performed By: #### 5 7021-8 ####[facility]CLIA [id number] [place] [address] [place] Eosinophils/100 WBC (Bld) 2.7 % Normal [facility] Comment on above: Order Comment: Speci men Type: BLOOD SPECIMENOrdering Facility: [facility] Address: [address] [place] [address] Performed By: #### 5 7021-8 ####[facility] [id number] [place] [address] [place] Erythrocyte distribution width (RBC) [Ratio] 12.4 % Normal 11.5-15.0 [facility] Comment on above: Order Comment: Speci men Type: BLOOD SPECIMENOrdering Facility: [facility] Address: [address] [place] [address] Performed By: #### 5 7021-8 ####[facility] [id number] [place] [address] [place] Hematocrit (Bld) [Volume fraction] 38.9 % Normal 36.0-46.0 [facility] Comment on above: Order Comment: Speci men Type: BLOOD SPECIMENOrdering Facility: [facility] Address: [address] [place] [address] Performed By: #### 5 7021-8 ####[facility] [id number] [place] [address] [place] Hemoglobin (Bld) [Mass/Vol] 13.1 g/dL Normal 11.5-15.5 [facility] Comment on above: Order Comment: Speci men Type: BLOOD SPECIMENOrdering Facility: [facility] Address: [address] [place] [address] Performed By: #### 5 7021-8 ####[facility] [id number] [place] [address] [place] Immature granulocytes (Bld) [#/Vol] 10*3/uL Normal <0.10 [facility] Comment on above: Order Comment: Speci men Type: BLOOD SPECIMENOrdering Facility: [facility] Address: [address] [place] [address] Performed By: #### 5 7021-8 ####[facility]CLIA [id number] [place] [address] [place] Immature granulocytes/100 WBC (Bld) 0.2 % Normal [facility] Comment on above: Order Comment: Speci men Type: BLOOD SPECIMENOrdering Facility: [facility] Address: [address] [place] [address] Performed By: #### 5 7021-8 ####[facility]CLIA [id number] [place] [address] [place] Lymphocytes (Bld) [#/Vol] 2.45 10*3/uL Normal 1.00-4.00 [facility] Comment on above: Order Comment: Speci men Type: BLOOD SPECIMENOrdering Facility: [facility] Address: [address] [place] [address] Performed By: #### 5 7021-8 ####[facility] [id number] [place] [address] [place] Lymphocytes/100 WBC (Bld) 43.5 % Normal [facility] Comment on above: Order Comment: Speci men Type: BLOOD SPECIMENOrdering Facility: [facility] Address: [address] [place] [address] Performed By: #### 5 7021-8 ####[facility]CLIA [id number] [place] [address] [place] MCH (RBC) [Entitic mass] 31.6 pg Normal 26.0-34.0 [facility] Comment on above: Order Comment: Speci men Type: BLOOD SPECIMENOrdering Facility: [facility] Address: [address] [place] [address] Performed By: #### 5 7021-8 ####[facility]CLIA [id number] [place] [address] [place] MCHC (RBC) [Mass/Vol] 33.7 g/dL Normal 30.5-36.0 [facility] Comment on above: Order Comment: Speci men Type: BLOOD SPECIMENOrdering Facility: [facility] Address: [address] [place] [address] Performed By: #### 5 7021-8 ####[facility]CLIA [id number] [place] [address] [place] MCV (RBC) [Entitic vol] 94.0 fL Normal 80.0-100.[address] [facility] Comment on above: Order Comment: Speci men Type: BLOOD SPECIMENOrdering Facility: [facility] Address: [address] [place] [address] Performed By: #### 5 7021-8 ####[facility] [id number] [place] [address] [place] Monocytes (Bld) [#/Vol] 0.49 10*3/uL Normal <0.87 [facility] Comment on above: Order Comment: Speci men Type: BLOOD SPECIMENOrdering Facility: [facility] Address: [address] [place] [address] Performed By: #### 5 7021-8 ####[facility]CLIA [id number] [place] [address] [place] Monocytes/100 WBC (Bld) 8.7 % Normal [facility] Comment on above: Order Comment: Speci men Type: BLOOD SPECIMENOrdering Facility: [facility] Address: [address] [place] [address] Performed By: #### 5 7021-8 ####[facility] [id number] [place] [address] [place] Neutrophils (Bld) [#/Vol] 2.48 10*3/uL Normal 1.45-7.50 [facility] Comment on above: Order Comment: Speci men Type: BLOOD SPECIMENOrdering Facility: [facility] Address: [address] [place] [address] Performed By: #### 5 7021-8 ####[facility]CLIA [id number] [place] [address] [place] Neutrophils/100 WBC (Bld) 44.0 % Normal [facility] Comment on above: Order Comment: Speci men Type: BLOOD SPECIMENOrdering Facility: [facility] Address: [address] [place] [address] Performed By: #### 5 7021-8 ####[facility]CLIA [id number] [place] [address] [place] Nucleated RBC (Bld) [#/Vol] 10*3/uL Normal <0.01 [facility] Comment on above: Order Comment: Speci men Type: BLOOD SPECIMENOrdering Facility: [facility] Address: [address] [place] [address] Performed By: #### 5 7021-8 ####[facility] [id number] [place] [address] [place] Nucleated RBC/100 WBC (Bld) [Ratio] 0.0 /100 WBC Normal [facility] Comment on above: Order Comment: Speci men Type: BLOOD SPECIMENOrdering Facility: [facility] Address: [address] [place] [address] Performed By: #### 5 7021-8 ####[facility] [id number] [place] [address] [place] Platelet mean volume (Bld) [Entitic vol] 9.9 fL Normal 9.0-12.7 [facility] Comment on above: Order Comment: Speci men Type: BLOOD SPECIMENOrdering Facility: [facility] Address: [address] [place] [address] Performed By: #### 5 7021-8 ####[facility]CLIA [id number] [place] [address] [place] Platelets (Bld) [#/Vol] 242 10*3/uL Normal 150-400 [facility] Comment on above: Order Comment: Speci men Type: BLOOD SPECIMENOrdering Facility: [facility] Address: [address] [place] [address] Performed By: #### 5 7021-8 ####[facility]CLIA [id number] [place] [address] [place] RBC (Bld) [#/Vol] 4.14 10*6/uL Normal 3.90-5.20 [facility] Comment on above: Order Comment: Speci men Type: BLOOD SPECIMENOrdering Facility: [facility] Address: [address] [place] [address] Performed By: #### 5 7021-8 ####[facility]CLIA [id number] [place] [address] [place] WBC (Bld) [#/Vol] 5.63 10*3/uL Normal 3.70-11.00 [facility] Comment on above: Order Comment: Speci men Type: BLOOD SPECIMENOrdering Facility: [facility] Address: [address] [place] [address] Performed By: #### 5 7021-8 ####[facility] [id number] [place] [address] [place] Comprehensive metabolic 2000 panelon 03-19-2024 Albumin [Mass/Vol] 4.1 g/dL Normal 3.9-4.9 [facility] Comment on above: Order Comment: Speci men Type: BLOOD SPECIMENOrdering Facility: [facility] Address: [address] [place] [address] Performed By: #### 2 4331-1, 2132-9, 13507-6 ####[facility]CLIA [id number] [place] [address] [place] ALP [Catalytic activity/Vol] 76 U/L Normal 34-123 [facility] Comment on above: Order Comment: Speci men Type: BLOOD SPECIMENOrdering Facility: [facility] Address: [address] [place] [address] Performed By: #### 2 4331-1, 2132-03, ####[facility]CLIA [id number] [place] [address] [place] ALT [Catalytic activity/Vol] 15 U/L Normal 7-38 [facility] Comment on above: Order Comment: Speci men Type: BLOOD SPECIMENOrdering Facility: [facility] Address: [address] [place] [address] Performed By: #### 2 4331-1, 2132-03, ####[facility]CLIA [id number] [place] [address] [place] Anion gap [Moles/Vol] 10 mmol/L Normal 8-15 [facility] Comment on above: Order Comment: Speci men Type: BLOOD SPECIMENOrdering Facility: [facility] Address: [address] [place] [address] Performed By: #### 2 4331-1, 2132-03, ####[facility]CLIA [id number] [place] [address] [place] AST [Catalytic activity/Vol] 15 U/L Normal 13-35 [facility] Comment on above: Order Comment: Speci men Type: BLOOD SPECIMENOrdering Facility: [facility] Address: [address] [place] [address] Performed By: #### 2 4331-1, 2132-03, ####[facility]CLIA [id number] [address] [address] [place] Bilirubin [Mass/Vol] 0.7 mg/dL Normal 0.2-1.3 [facility] Comment on above: Order Comment: Speci men Type: BLOOD SPECIMENOrdering Facility: [facility] Address: [address] [place] [address] Performed By: #### 2 4331-1, 2132-03, ####[facility]CLIA [id number] [address] [address] [place] Calcium [Mass/Vol] 9.1 mg/dL Normal 8.5-10.2 [facility] Comment on above: Order Comment: Speci men Type: BLOOD SPECIMENOrdering Facility: [facility] Address: [address] [place] [address] Performed By: #### 2 4331-1, 2132-03, ####[facility] LABCLIA [id number] [place] [id number] [place] Chloride [Moles/Vol] 106 mmol/L Normal 98-107 [facility] Comment on above: Order Comment: Speci men Type: BLOOD SPECIMENOrdering Facility: [facility] Address: [address] [place] [address] Performed By: #### 2 4331-1, 2132-03, ####[facility]CLIA [id number] [place] [id number] [place] CO2 [Moles/Vol] 26 mmol/L Normal 22-30 [facility] Comment on above: Order Comment: Speci men Type: BLOOD SPECIMENOrdering Facility: [facility] Address: [address] [place] [address] Performed By: #### 2 4331-1, 2132-03, ####[facility]CLIA [id number] [address] [address] [place] Creatinine [Mass/Vol] 0.47 mg/dL Low 0.58-0.96 [facility] Comment on above: Order Comment: Speci men Type: BLOOD SPECIMENOrdering Facility: [facility] Address: [address] [place] [address] Performed By: #### 2 4331-1, 9, 11006-3 ####[facility] [id number] [place] [address] [place] Creatinine and Glomerular filtration rate.predicted panel (S/P/Bld) 110 mL/min/1.73m??? Normal >=60 [facility] Comment on above: Order Comment: Yuliet angulo Type: BLOOD SPECIMENOrdering Facility: [facility] Address: [address] [place] [address] Result Comment: Iwona mated Glomerular Filtration Rate [...] GFR. Performed By: #### 2 4331-1, 2132-03, ####[facility] [id number] [place] [id number] [place] Glucose [Mass/Vol] 212 mg/dL High 74-99 [facility] Comment on above: Order Comment: Yuliet angulo Type: BLOOD SPECIMENOrdering Facility: [facility] Address: [address] [place] [address] Result Comment: The [place] Diabetes Association (ADA) provides guidance for cutoff [...] Standards of Medical Care in Diabetes 2016, [place] [employer]. Diabetes Care. 2016.39(Suppl 1). Performed By: #### 2 4331-1, 2132-03, ####[facility]CLIA [id number] [address] [address] [place] Potassium [Moles/Vol] 4.1 mmol/L Normal 3.7-5.1 [facility] Comment on above: Order Comment: Speci men Type: BLOOD SPECIMENOrdering Facility: [facility] Address: [address] [place] [address] Performed By: #### 2 4331-1, 2132-03, ####[facility]CLIA [id number] [address] [address] [place] Protein [Mass/Vol] 6.8 g/dL Normal 6.3-8.0 [facility] Comment on above: Order Comment: Speci men Type: BLOOD SPECIMENOrdering Facility: [facility] Address: [address] [place] [address] Performed By: #### 2 433-, 2132-03, ####[facility] [id number] [address] [address] [place] Sodium [Moles/Vol] 142 mmol/L Normal 136-144 [facility] Comment on above: Order Comment: Speci men Type: BLOOD SPECIMENOrdering Facility: [facility] Address: [address] [place] [address] Performed By: #### 2 4331-1, 2132-03, ####[facility] [id number] [address] [address] [place] Urea nitrogen [Mass/Vol] 7 mg/dL Normal 7-21 [facility] Comment on above: Order Comment: Speci men Type: BLOOD SPECIMENOrdering Facility: [facility] Address: [address] [place] [address] Performed By: #### 2 4331-1, 2132-03, ####[facility]CLIA [id number] [address] [place] HbA1c (Bld)on 03-19-2024 Average glucose Estimated from glycated hemoglobin (Bld) [Mass/Vol] 214 mg/dL Normal [facility] Comment on above: Order Comment: Yuliet angulo Type: BLOOD SPECIMENOrdering Facility: [facility] Address: [address] [place] [address] Result Comment: eAG: (Estimated average glucose) is a calculated value from HgbA1c and is civil rights representative of the average blood glucose level in the last 2-3 month period. Performed By: #### 5 5454-3 ####[facility] [id number] [address] [place] [facility] HbA1c (Bld) [Mass fraction] 9.1 % High 4.3-5.6 [facility] Comment on above: Order Comment: Yuliet angulo Type: BLOOD SPECIMENOrdering Facility: [facility] Address: [address] [place] [address] Result Comment: [place] Diabetes Association guidelines indicate that patients with HgbA1c in the range 5.7-6.4% are at increased risk for development of diabetes, and intervention by lifestyle modification may be beneficial. HgbA1c greater or equal to 6.5% is considered diagnostic of diabetes. Performed By: #### 5 5454-3 ####[facility] [id number] [address] [place] Lipid 1996 panelon 4 Cholesterol [Mass/Vol] 172 mg/dL Normal <[address] [facility] Comment on above: Order Comment: Yuliet angulo Type: BLOOD SPECIMENOrdering Facility: [facility] Address: [address] [place] [address] Result Comment: <200 mg/dL, Desirable 200-239 mg/dL, Borderline high >239 mg/dL, High Performed By: #### 2 4331-1, 2132-03, ####[facility]IA [id number] [address] [place] Cholesterol in HDL [Mass/Vol] 40 mg/dL Normal >39 [facility] Comment on above: Order Comment: Yuliet kev Type: BLOOD SPECIMENOrdering Facility: [facility] Address: [address] [place] [address] Result Comment: 40-5 9 mg/dL, Acceptable >59 mg/dL, High: Negative risk factor for coronary heart disease <40 mg/dL, Low: Positive risk factor for coronary heart disease Performed By: #### 2 4331-1, 2132-03, ####[facility]CLIA [id number] [address] Cholesterol in LDL [Mass/Vol] 102 mg/dL High <100 [facility] Comment on above: Order Comment: Yuliet angulo Type: BLOOD SPECIMENOrdering Facility: [facility] Address: [address] [place] [address] Result Comment: <100 mg/dL, Optimal 100-129 mg/dL, Near optimal/above optimal 130-159 mg/dL, Borderline high 160-189 mg/dL, High >189 mg/dL, Very high Secondary prevention optimal LDL Cholesterol levels are recommended to be < 70 mg/dL Performed By: #### 2 4331-1, 2132-03, ####[facility] [id number] [address] [place] Cholesterol in LDL/Cholesterol in HDL [Mass ratio] 2.55 {ratio} High <2.54 [facility] Comment on above: Order Comment: Yazmini kev Type: BLOOD SPECIMENOrdering Facility: [facility] Address: [address] [place] [address] Result Comment: Kayla ortiz: 1. National Cholesterol Education Program ATP III Guideline At-A-Glance Quick Desk Reference: National Heart, Lung, and Blood [place]. National Institutes of Health. 2001: NIH Publication No. 01-3305. 2. An International Atherosclerosis Society position paper: global recommendations for the management of dyslipidemia: executive summary, Atherosclerosis. 2014: 232(2):410-413. Performed By: #### 2 4331-1, 2132-03, ####[facility]CLIA [id number] [place] [address] [place] Cholesterol in VLDL [Mass/Vol] 30 mg/dL High <30 [facility] Comment on above: Order Comment: Yazmini men Type: BLOOD SPECIMENOrdering Facility: [facility] Address: [address] [place] [address] Performed By: #### 2 4331-1, 2132-03, ####[facility]CLIA [id number] [place] [address] [place] Cholesterol non HDL [Mass/Vol] 132 mg/dL High <130 [facility] Comment on above: Order Comment: Yuliet angulo Type: BLOOD SPECIMENOrdering Facility: [facility] Address: [address] [place] [address] Result Comment: <130 mg/dL, Optimal 130-159 mg/dL, Near optimal/above optimal 160-189 mg/dL, Borderline high 190-219 mg/dL, High >219 mg/dL, Very high Secondary prevention optimal non HDL Cholesterol levels are recommended to be <100 mg/dL Performed By: #### 2 433-1, 2132-03, ####[facility]CLIA [id number] [place] [address] [place] Cholesterol.total/Choles terol in HDL [Mass ratio] 4.30 {ratio} Normal <5.10 [facility] Comment on above: Order Comment: Yuliet angulo Type: BLOOD SPECIMENOrdering Facility: [facility] Address: [address] [place] [address] Performed By: #### 2 4331-1, 2132-03, ####[facility]CLIA [id number] [place] [address] [place] FASTING TIME 12 hrs Normal [facility] Comment on above: Order Comment: Speci men Type: BLOOD SPECIMENOrdering Facility: [facility] Address: [address] [place] [address] Performed By: #### 2 4331-1, 2132-03, ####[facility]CLIA [id number] [address] [place] Triglyceride [Mass/Vol] 150 mg/dL High <[address] [facility] Comment on above: Order Comment: Speci men Type: BLOOD SPECIMENOrdering Facility: [facility] Address: [address] [place] [address] Result Comment: <150 mg/dL, Normal 150-199 mg/dL, Borderline high 200-499 mg/dL, High >499 mg/dL, Very high Performed By: #### 2 4331-1, 2132-03, ####[facility]IA [id number] [address] [facility] Vit B12 [facility] Cobalamin (Vitamin B12) [Mass/Vol] 344 pg/mL Normal 232-1245 [facility] Comment on above: Order Comment: Speci men Type: BLOOD SPECIMENOrdering Facility: [facility] Address: [address] [place] [address] Performed By: #### 2 4331-1, 2132-03, ####[facility] [id number] [address] [place] CNOVon 03-17-2024 CNOV Office Visit (FAMPWS) LINA ISAAC ([id number]) 1965 F Date Time Provider Department 03/17/24 [...] INCARCERATED C (more content not included)... Normal [facility] CNOVon 03-05-2024 CNOV Office Visit (PHMEWO) LINA ISAAC ([id number]) 1965 F Date Time Provider Department 03/05/24 1:30 PM [facility] During your visit today, we [...] capsule 3 Oral Medication Containers (SHARPS CONTAINER) [facility] Use to collect sharps as directed. 1 [...] directed plus sliding scale with meals. Insulin [place], Disposable, ([place]) 31 gauge x 3/16 [...] (BAQSIMI) 3 mg/actuation nasal spray Use 1 [place] in the nose as needed for low [...] wheezing/shortness of (more content not included)... Normal [facility] HEMOGLOBIN A1C (POC)on 11-26 HbA1c (Bld) [Mass fraction] 9.3 % Abnormal 4.3 - 5.6 % [facility] Comment on above: Location:[facility], [address] [place] [address], [place], [address] Point of care (POC) Hemoglobin A1c (HGBA1C) [...] specific diabetes management situations: The POC device crts provides a normal range of 4.2% to 6.5% for the HGBA1C POC test. However, the [place] Diabetes [employer] guidelines indicate that patients with [...] Interpretation and review of laboratory results Abnormal [facility] COVID & INFLUENZA A/B & RSV NAAT, ROUTINEon 09-20-2023 FLUAV RNA JHONY+probe Ql (Unsp spec) Not detected Not Detected [facility] FLUBV RNA JHONY+probe Ql (Unsp spec) Not detected Not Detected [facility] RSV A RNA JHONY+probe Ql (Unsp spec) Not detected Not Detected [facility] SARS-CoV-2 (COVID-19) RNA JHONY+probe Ql (Resp) Not detected See comment Demetrius del angel [facility] CBC W Auto Differential pane l (Bld)on 08-27-2023 Basophils (Bld) [#/Vol] 0.05 10*3/uL <0.11 k/uL [facility] Basophils/100 WBC (Bld) 0.8 % C [facility] Differential cell count method Nom (Bld) Auto [facility] Eosinophils (Bld) [#/Vol] 0.14 10*3/uL <0.46 k/uL [facility] Eosinophils/100 WBC (Bld) 2.3 % [facility] Erythrocyte distribution width (RBC) [Ratio] 11.7 % 11.5 - 15.0 % [facility] Hematocrit (Bld) [Volume fraction] 39.1 % 36.0 - 46.0 % [facility] Hemoglobin (Bld) [Mass/Vol] 13.1 g/dL 11.5 - 15.5 g/dL [facility] Immature granulocytes (Bld) [#/Vol] <0.10 k/uL [facility] Immature granulocytes/100 WBC (Bld) 0.3 % [facility] Lymphocytes (Bld) [#/Vol] 2.38 10*3/uL 1.00 - 4.00 k/uL [facility] Lymphocytes/100 WBC (Bld) 38.6 % [facility] MCH (RBC) [Entitic mass] 30.4 pg 26. 0 - 34.0 pg [facility] MCHC (RBC) [Mass/Vol] 33.5 g/dL 30.5 - 36.0 g/dL [facility] MCV (RBC) [Entitic vol] 90.7 fL 80.0 - 100.0 fL [facility] Monocytes (Bld) [#/Vol] 0.48 10*3/uL <0.87 k/uL [facility] Monocytes/100 WBC (Bld) 7.8 % C [facility] Neutrophils (Bld) [#/Vol] 3.10 10*3/uL 1.45 - 7.50 k/uL [facility] Neutrophils/100 WBC (Bld) 50.2 % [facility] Nucleated RBC (Bld) [#/Vol] <0.01 k/uL [facility] Nucleated RBC/100 WBC (Bld) [Ratio] 0.0 /100 WBC [facility] Platelet mean volume (Bld) [Entitic vol] 10.1 fL 9.0 - 12.7 fL [facility] Platelets (Bld) [#/Vol] 270 10*3/uL 150 - 400 k/uL [facility] RBC (Bld) [#/Vol] 4.31 10*6/uL 3.90 - 5.2 0 m/uL [facility] WBC (Bld) [#/Vol] 6.17 10*3/uL 3.70 - 11. 00 k/uL [facility] VITAMIN B12 BLOODon 08-27-19 24 Cobalamin (Vitamin B12) [Mass/Vol] 413 pg/mL 232 - 1,245 pg/mL [facility] No Panel Informationon 05-28 [facility] US LEG VEIN DVT UNL VAS LABo n 05-28-2023 US LEG VEIN DVT UNL VAS LAB Non-Invasive Vascular Laboratory [facility] Lower Extremity Venous Duplex Unilateral - Right [...] Interpreting physician: Kishore San MD Final CC [employer] Medical Image : [id number]. [id number] [email or web address] See Link below for Image Normal [facility] HEMOGLOBIN A1C (POC)on 05-27 HbA1c (Bld) [Mass fraction] 11.4 % Abnormal 4.2 - 5.6 % [facility] CT CHEST WO IVCONon 02-27-20 [facility] Comprehensive metabolic 2000 panelon 02-20-2023 Albumin [Mass/Vol] 4.4 g/dL 3.9 - 4.9 g/dL [facility] ALP [Catalytic activity/Vol] 93 U/L 34 - 123 U/L [facility] ALT [Catalytic activity/Vol] 16 U/L 7 - 38 U/L [facility] Anion gap [Moles/Vol] 11 mmol/L 9 - 18 mmol/L [facility] AST [Catalytic activity/Vol] 15 U/L 13 - 35 U/L [facility] Bilirubin [Mass/Vol] 0.8 mg/dL 0.2 - 1 .3 mg/dL [facility] Calcium [Mass/Vol] 10.1 mg/dL 8.5 - 10. 2 mg/dL [facility] Chloride [Moles/Vol] 103 mmol/L 97 - 10 5 mmol/L [facility] CO2 [Moles/Vol] 25 mmol/L 22 - 30 mmol/L [facility] Creatinine [Mass/Vol] 0.48 mg/dL Low 0.58 - 0.96 mg/dL [facility] Estimated Glomerular Filtration Rate 110 mL/min/1.73m >=60 mL/min/1.73m [facility] Glucose [Mass/Vol] 225 mg/dL High 74 - 99 mg/dL [facility] Potassium [Moles/Vol] 3.9 mmol/L 3.7 - 5.1 mmol/L [facility] Protein [Mass/Vol] 8.0 g/dL 6.3 - 8.0 g/dL [facility] Sodium [Moles/Vol] 139 mmol/L 136 - 144 mmol/L [facility] Urea nitrogen [Mass/Vol] 11 mg/dL 7 - 21 mg/d L [facility] LIPID PANEL, NONFASTINGon Cholesterol [Mass/Vol] 226 mg/dL High <200 mg/dL [facility] HDL Cholesterol, Nonfasting 48 mg/dL >39 mg/dL [facility] LDL Cholesterol, Nonfasting 152 mg/dL High <100 mg/dL [facility] LDL/HDL Ratio, Nonfasting 3.17 mg/dL High <2.54 mg/dL [facility] Non HDL Cholesterol, Nonfasting 178 mg/dL High <130 mg/dL [facility] Total Chol/HDL Ratio, Nonfasting 4.71 mg/dL <5.10 mg/dL [facility] Triglycerides, Nonfasting 132 mg/dL <150 mg/dL [facility] VLDL Cholesterol, Nonfasting 26 mg/dL <30 mg/dL [facility] T4 FREE/FREE THYROXon 2022 Free T4 [Mass/Vol] 1.5 ng/dL 0.9 - 1.7 ng/dL [facility] TSH BLDon 02-20-2023 TSH Qn 1.120 m[IU]/L 0.270 - 4.200 mIU/L [facility] VITAMIN B12 BLOODon 02-21-20 Cobalamin (Vitamin B12) [Mass/Vol] 416 pg/mL 232 - 1,245 pg/mL [facility] VITAMIN D 25 HYDROXYon 02-20 25-hydroxyvitamin D3 [Mass/Vol] 14.9 ng/mL Low 31.0 - 80.0 ng/mL [facility] CBC W Auto Differential pane l (Bld)on 02-19-2023 Basophils (Bld) [#/Vol] 0.07 10*3/uL <0.11 k/uL [facility] Basophils/100 WBC (Bld) 1.0 % [facility] Differential cell count method Nom (Bld) Auto [facility] Eosinophils (Bld) [#/Vol] 0.12 10*3/uL <0.46 k/uL [facility] Eosinophils/100 WBC (Bld) 1.8 % [facility] Erythrocyte distribution width (RBC) [Ratio] 11.9 % 11.5 - 15.0 % [facility] Hematocrit (Bld) [Volume fraction] 43.1 % 36.0 - 46.0 % [facility] Hemoglobin (Bld) [Mass/Vol] 14.4 g/dL 11.5 - 15.5 g/dL [facility] Immature granulocytes (Bld) [#/Vol] <0.10 k/uL [facility] Immature granulocytes/100 WBC (Bld) 0.3 % [facility] Lymphocytes (Bld) [#/Vol] 3.31 10*3/uL 1.00 - 4.00 k/uL [facility] Lymphocytes/100 WBC (Bld) 49.3 % [facility] MCH (RBC) [Entitic mass] 30.0 pg 26. 0 - 34.0 pg [facility] MCHC (RBC) [Mass/Vol] 33.4 g/dL 30.5 - 36.0 g/dL [facility] MCV (RBC) [Entitic vol] 89.8 fL 80.0 - 100.0 fL [facility] Monocytes (Bld) [#/Vol] 0.54 10*3/uL <0.87 k/uL [facility] Monocytes/100 WBC (Bld) 8.0 % [facility] Neutrophils (Bld) [#/Vol] 2.66 10*3/uL 1.45 - 7.50 k/uL [facility] Neutrophils/100 WBC (Bld) 39.6 % [facility] Nucleated RBC (Bld) [#/Vol] <0.01 k/uL [facility] Nucleated RBC/100 WBC (Bld) [Ratio] 0.0 /100 WBC [facility] Platelet mean volume (Bld) [Entitic vol] 10.1 fL 9.0 - 12.7 fL [facility] Platelets (Bld) [#/Vol] 268 10*3/uL 150 - 400 k/uL [facility] RBC (Bld) [#/Vol] 4.80 10*6/uL 3.90 - 5.2 0 m/uL [facility] WBC (Bld) [#/Vol] 6.72 10*3/uL 3.70 - 11. 00 k/uL [facility] HbA1c (Bld)on 02-19-2023 Average glucose Estimated from glycated hemoglobin (Bld) [Mass/Vol] 280 mg/dL [facility] HbA1c (Bld) [Mass fraction] 11.4 % High 4.3 - 5.6 % [facility] XR CHEST 2V FRONTAL/LATon [facility] XR Chest PA and Lateralon IMPRESSION: Slight prominence of the pulmonary markings in the bilateral lungs. Generation Manager: SANTOSH Transcribe Date/Time: Feb 19 2023 3:30P Dictated by : BENNY PANDA MD This examination was interpreted and the report reviewed and electronically signed by: BENNY PANDA MD on Feb 19 2023 3:31PM [facility] DIVISION OF RADIOLOGY * [...] in the spine. DIVISION OF RADIOLOGY Provider, [facility] - 02/19/2023 * * *Final Report* * [...] the pulmonary markings in the bilateral lungs. Generation Manager: SANTOSH Transcribe Date/Time: Feb 19 2023 3:30P Dictated by : BENNY PANDA MD This examination was interpreted and the report reviewed and electronically signed by: BENNY PANDA MD on Feb 19 2023 3:31PM EST [facility] Radiology Study observation (narrative) Demetrius del angel [facility] XR Chest PA and LateralOrder ed By: Ccf Provider on 02-19-2023 [facility] NM HEPATOBILIARY W EF AND/OR RXon 11-29-2022 [facility] URINE CULTUREon 11-10-2022 Bacteria identified Cx Nom (U) 10,000 -<50,000 CFU/ml Normal urogenital mary ann [facility] AMYLASE BLDon 11-09-2022 Amylase [Catalytic activity/Vol] 46 U/L 30 - 104 U/L [facility] C-REACTIVE PROTEIN (CRP)on 0 11-09-2022 CRP [Mass/Vol] <0.9 mg/dL [facility] Comprehensive metabolic 2000 panelon 11-09-2022 Albumin [Mass/Vol] 4.3 g/dL 3.9 - 4.9 g/dL [facility] ALP [Catalytic activity/Vol] 88 U/L 34 - 123 U/L [facility] ALT [Catalytic activity/Vol] 12 U/L 7 - 38 U/L [facility] Anion gap [Moles/Vol] 10 mmol/L 9 - 18 mmol/L [facility] AST [Catalytic activity/Vol] 14 U/L 13 - 35 U/L [facility] Bilirubin [Mass/Vol] 0.9 mg/dL 0.2 - 1 .3 mg/dL [facility] Calcium [Mass/Vol] 9.8 mg/dL 8.5 - 10. 2 mg/dL [facility] Chloride [Moles/Vol] 103 mmol/L 97 - 10 5 mmol/L [facility] CO2 [Moles/Vol] 27 mmol/L 22 - 30 mmol/L [facility] Creatinine [Mass/Vol] 0.55 mg/dL Low 0.58 - 0.96 mg/dL [facility] Estimated Glomerular Filtration Rate 106 mL/min/1.73m >=60 mL/min/1.73m [facility] Glucose [Mass/Vol] 131 mg/dL High 74 - 99 mg/dL [facility] Potassium [Moles/Vol] 4.2 mmol/L 3.7 - 5.1 mmol/L [facility] Protein [Mass/Vol] 7.5 g/dL 6.3 - 8.0 g/dL [facility] Sodium [Moles/Vol] 140 mmol/L 136 - 144 mmol/L [facility] Urea nitrogen [Mass/Vol] 12 mg/dL 7 - 21 mg/d L [facility] ESR Westergren method (Bld) [Velocity]on 11-09-2022 ESR (Bld) [Velocity] 15 mm/h 0 - 20 mm/hr Cl [facility] LIPASE BLDon 11-09-2022 Lipase [Catalytic activity/Vol] 14 U/L Low 16 - 61 U/L [facility] CBC panel Auto (Bld)on 11-08 Erythrocyte distribution width (RBC) [Ratio] 12.3 % 11.5 - 15.0 % [facility] Hematocrit (Bld) [Volume fraction] 42.5 % 36.0 - 46.0 % [facility] Hemoglobin (Bld) [Mass/Vol] 14.3 g/dL 11.5 - 15.5 g/dL [facility] MCH (RBC) [Entitic mass] 30.2 pg 26. 0 - 34.0 pg [facility] MCHC (RBC) [Mass/Vol] 33.6 g/dL 30.5 - 36.0 g/dL [facility] MCV (RBC) [Entitic vol] 89.9 fL 80.0 - 100.0 fL [facility] Nucleated RBC (Bld) [#/Vol] <0.01 k/uL [facility] Platelet mean volume (Bld) [Entitic vol] 9.7 fL 9.0 - 12.7 fL [facility] Platelets (Bld) [#/Vol] 293 10*3/uL 150 - 400 k/uL [facility] RBC (Bld) [#/Vol] 4.73 10*6/uL 3.90 - 5.2 0 m/uL [facility] WBC (Bld) [#/Vol] 6.61 10*3/uL 3.70 - 11. 00 k/uL [facility] D-DIMERon 11-08-2022 Fibrin D-dimer FEU (PPP) [Mass/Vol] 370 ng/mL FEU <500 ng/mL FEU [facility] Fibrin D-dimer FEU (PPP) [Ma ss/Vol]on 11-08-2022 D Dimer Age-related Cutoff 580 ng/mL FEU [facility] HEMOGLOBIN A1C (POC)on 11-08 HbA1c (Bld) [Mass fraction] 10.7 % Abnormal 4.2 - 5.6 % [facility] No Panel Informationon 11-08 [facility] UA DIP, URINE (POC)on 2022 BILIRUBIN UA (POCT) Negative Negative [facility] CLARITY UA (POCT) Clear [place] COLOR UA (POCT) Yellow [facility] GLUCOSE UA (POCT) Negative Negative mg/dL [facility] HEMOGLOBIN/BLOOD UA (POCT) Negative Negative [facility] KETONE UA (POCT) Negative Negative mg/dL [facility] LEUKOCYTES UA (POCT) Trace Abnormal Negative [facility] NITRITE UA (POCT) Negative Negative [place] PH UA (POCT) 5.5 4.5 - 8.0 [facility] Protein Ql (U) Trace Abnormal Negative mg/dL [facility] SPECIFIC GRAVITY UA (POCT) >=1.030 1.005 - 1.030 [facility] UROBILINOGEN UA (POCT) 0.2 E.U./dL Jennifer l E.U./dL [facility] UA DIP, URINE (POC)on 2022 BILIRUBIN UA (POCT) Negative Negative [facility] CLARITY UA (POCT) Clear [place] COLOR UA (POCT) Yellow [facility] GLUCOSE UA (POCT) 250 mg/dL Abnormal Negative mg/dL [facility] HEMOGLOBIN/BLOOD UA (POCT) Trace-lysed Abnormal Negative [facility] KETONE UA (POCT) Negative Negative mg/dL [facility] LEUKOCYTES UA (POCT) Negative Negative [facility] NITRITE UA (POCT) Negative Negative [place] PH UA (POCT) 6.0 4.5 - 8.0 [facility] Protein Ql (U) 30 mg/dL Abnormal Negative mg/dL [facility] SPECIFIC GRAVITY UA (POCT) >=1.030 1.005 - 1.030 [facility] UROBILINOGEN UA (POCT) 0.2 E.U./dL Jennifer l E.U./dL [facility] ANES POSTPROC EVALon 023 ANES POSTPROC EVAL HNO ID: [id number] Author: Elena Salmon MD Service: Anesthesiology Author Type: Anesthesiologist Type: Anesthesia Postprocedure Evaluation Filed: 09/17/2022 9:46 AM Note Text: POST ANESTHESIA EVALUATION NOTE : 1965 Procedure Summary Date: 09/17/22 Room / Location: [facility] Endoscopy Anesthesia Start: 837 Anesthesia Stop: 921 Procedures: EGD DIAGNOSTIC COLONOSCOPY DIAGNOSTIC Diagnosis: Abdominal pain, unspecified abdominal location Change in bowel habits (Generalized abdominal pain) (Generalized abdominal pain) Scheduled Providers: Brandy Ramirez MD; Mauricio Marie APRN.BOILERMAKER PIPE FITTER; Elena Salmon MD Responsible Provider: Elena Salmon [...] September 17, 2022 TIME: 9:46 AM CSN: [id number] Normal [facility] ANES PRE-OPon 09-17-2022 ANES PRE-OP HNO ID: [id number] Author: Elena Salmon MD Service: Anesthesiology Author Type: Anesthesiologist Type: Anesthesia Preprocedure Evaluation Filed: 09/17/2022 7:30 AM Note Text: ANESTHESIOLOGY DAY OF SURGERY NOTE : 1965 Procedure Information Date/Time: 09/17/2230 Scheduled providers: Brandy Ramirez MD; Mauricio Marie APRN.BOILERMAKER PIPE FITTER; Elena Salmon MD Procedures: EGD DIAGNOSTIC COLONOSCOPY DIAGNOSTIC Location: [facility] Endoscopy Estimated body mass index is [...] and consent discussed: yes. Patient / Responsible Democrat agrees to proceed: yes Patient / Surrogate [...] (BAQSIMI) 3 mg/actuation nasal spray Use 1 [place] in the nose as needed for low [...] (VENTOLIN HFA (more content not included)... Normal [facility] Colonoscopyon 09-17-2022 Colonoscopy [facility] Gastrointestinal Endoscopy Patient Name: Lina Isaac Procedure Date: 09/17/2022 8:52 AM Date of : 1965 Admit Type: Outpatient Age: 56 Room: [facility] Gender: Female Note Status: Finalized Attending MD: Brandy Ramirez MD Procedure: Colonoscopy Indications: Generalized abdominal pain [...] by the physician, the nurse and the early childhood associate in the procedure room. Mental Status Examination: [...] the patient. Procedure Code(s): --- Professional --- 78443, Colonoscopy, flexible; diagnostic, including collection of specimen(s) by brushing or washing, when performed (separate procedure) CPT copyright 2020 [employer]. All rights reserved. The codes documented in this report are preliminary and upon dean of girls review may be revised to meet current compliance requirements. Attending Participation: I personally performed the entire procedure. Scope In: 8:54:19 AM Scope Out: 9:15:21 AM MD Brandy Gutiérrez MD 09/17/2022 9:27:16 AM This report has been signed electronically by Brandy Ramirez MD Number of Addenda: 0 Note Initiated On: 09/17/2022 8:52 AM Estimated Blood Loss: Estimated blood loss: none. Normal [facility] HISTORY PHYSICALon HISTORY PHYSICAL HNO ID: [id number] Author: Brandy Ramirez MD Service: General Surgery [...] (BAQSIMI) 3 mg/actuation nasal spray Use 1 [place] in the nose as needed for low [...] calcium citrate-vitamin (more content not included)... Normal [facility] SURGICAL PATHOLOGYon 023 CASE REPORT [facility] Comment on above: Order Comment: Yuliet angulo Type: TISSUE SPECIMEN Ordering Facility: [facility] Address: [address] [place] [address] Result Comment: Surg ical Pathology Report Case: [id number] Authorizing Provider: Brandy Ramirez MD Collected: 09/17/2022 08:49 AM Ordering Location: [facility] Endoscopy Received: 09/17/2022 10:11 AM Pathologist: Di Morelos MD Specimen: ANTRUM (STOMACH) BIOPSY Performed By: #### S #### [facility] [place] [facility] CLIA [id number] [address] [place] [address] FINAL DIAGNOSIS [facility] Comment on above: Order Comment: Yuliet angulo Type: TISSUE SPECIMEN Ordering Facility: [facility] Address: [address] [place] [address] Result Comment: Marquita omer antrum, biopsy: - Antral mucosa with no significant diagnostic alteration. - No morphologic evidence of Helicobacter pylori organisms. Performed By: #### S #### [facility] [place] [facility] CLIA [id number] [address] [place] [address] FINAL PERFORMING LAB Normal [facility] Comment on above: Order Comment: Yuliet angulo Type: TISSUE SPECIMEN Ordering Facility: [facility] Address: [address] [address] Result Comment: Diag nostic interpretation performed at [facility], [address] [place] [address] CLIA# [id number] Dynamometer Tester: Davian Connolly M.D. Performed By: #### S #### [facility] [place] [facility] CLIA [id number] [address] [place] [address] FERNANDA GROSS DESCRIPTION Normal [facility] Comment on above: Order Comment: Speci men Type: TISSUE SPECIMEN Ordering Facility: [facility] Address: [address] [place], [place] [address] [address] Result Comment: Bren Castro NTRUM (STOMACH) BIOPSY Received in formalin is one piece of nathan, soft tissue measuring 0.2 x 0.2 x 0.2 cm. Totally submitted in one cassette. Gross examination performed at [address] 09/17/2022 3:47 PM Performed By: #### S #### [facility] [place] [facility] CLIA [id number] [address] [place] [address] Upper GI endoscopyon 023 Upper GI endoscopy [facility] Gastrointestinal Endoscopy Patient Name: Lina Isaac Procedure Date: 09/17/2022 8:35 AM Date of : 1965 Admit Type: Outpatient Age: 56 Room: [facility] Gender: Female Note Status: Finalized Attending MD: [...] by the physician, the nurse and the early childhood associate in the procedure room. Mental Status Examination: [...] 2 weeks. Procedure Code(s): --- Professional --- 62818, Esophagogastroduoden oscopy, flexible, transoral; with biopsy, single or multiple CPT copyright 2020 [employer]. All rights reserved. The codes documented in this report are preliminary and upon dean of girls review may be revised to meet current compliance requirements. Attending Participation: I personally performed the entire procedure. Scope In: 8:46:30 AM Scope Out: 8:50:24 AM MD Brandy Gutiérrez MD 09/17/2022 9:22:36 AM This report has been signed electronically by Brandy Ramirez MD Number of Addenda: 0 Note Initiated On: 09/17/2022 8:35 AM Estimated Blood Loss: Estimated blood loss: none. Normal [facility] CHANTELL SCREENING W TOMOon 09-[address] [facility] [address] ABD/PEL WO IVCONon 2021 [facility] UA DIP, URINE (POC)on 2021 BILIRUBIN UA (POCT) Negative Negative [facility] CLARITY UA (POCT) Clear [place] COLOR UA (POCT) Yellow [facility] GLUCOSE UA (POCT) >=1000 Abnormal Negative mg/dL [facility] HEMOGLOBIN/BLOOD UA (POCT) Trace-intact Abnormal Negative [facility] KETONE UA (POCT) Trace Negative mg/dL [facility] LEUKOCYTES UA (POCT) Negative Negative [facility] NITRITE UA (POCT) Negative Negative [place] PH UA (POCT) 5.5 4.5 - 8.0 [facility] Protein Ql (U) Negative Negative mg/dL [facility] SPECIFIC GRAVITY UA (POCT) 1.020 1.005 - 1.030 [facility] UROBILINOGEN UA (POCT) 0.2 E.U./dL Jennifer l E.U./dL [facility] DXA-AXIAL SKELETONon 022 [facility] XR Foot - left AP and Latera l and obliqueon 12-31-2021 IMPRESSION: No acute abnormality. Generation Manager: SANTOSH Transcribe Date/Time: Dec 31 2021 4:08P [...] foreign body. ZZZ_DO_NOT_U SE_DIVISION OF RADIOLOGY Provider, [facility] [place] - 12/31/2021 * * *Final Report* * [...] foreign body. IMPRESSION IMPRESSION: No acute abnormality. Generation Manager: SANTOSH Transcribe Date/Time: Dec 31 2021 4:08P Dictated by : OMID HOLLOWAY MD This examination was interpreted and the report reviewed and electronically signed by: OMID HOLLOWAY MD on Dec 31 2021 4:11PM EST [facility] XR Foot - left AP and Latera l and obliqueOrdered By: Ccf Provider on 12-31-2021 [facility] XR Foot - left AP and Latera l and obliqueon 12-30-2021 Radiology Study observation (narrative) [facility] No Panel Informationon 11-14 IMPRESSION: No acute osseous injury identified. Generation Manager: SANTOSH Transcribe Date/Time: Nov 14 2021 11:33A Dictated by : TYRESE ESPINOZA MD This examination was interpreted and the report reviewed and electronically signed by: TYRESE ESPINOZA MD on Nov 14 2021 11:34AM EST ZZZ_DO_NOT_U SE_DIVISION OF RADIOLOGY Radiology Study observation (narrative) [facility] No Panel InformationOrdered By: Ccf Provider on 11-14-2021 [facility] XR Hand - left PA and [...] space narrowing. ZZZ_DO_NOT_U SE_DIVISION OF RADIOLOGY Provider, [facility] - 11/14/2021 * * *Final Report* * [...] IMPRESSION IMPRESSION: No acute osseous injury identified. Generation Manager: [facility] Transcribe Date/Time: Nov 14 2021 11:33A Dictated by : TYRESE ESPINOZA MD This examination was interpreted and the report reviewed and electronically signed by: TYRESE ESPINOZA MD on Nov 14 2021 11:34AM EST [facility] XR Wrist - left PA and [...] space narrowing. ZZZ_DO_NOT_U SE_DIVISION OF RADIOLOGY Provider, [facility] - 11/14/2021 * * *Final Report* * [...] IMPRESSION IMPRESSION: No acute osseous injury identified. Generation Manager: [facility] Transcribe Date/Time: Nov 14 2021 11:33A Dictated by : TYRESE ESPINOZA MD This examination was interpreted and the report reviewed and electronically signed by: TYRESE ESPINOZA MD on Nov 14 2021 11:34AM EST [facility] CT ABD/PEL WO IVCONon 2021 [facility] XR Abdomen Supine and Uprigh ton 04-10-2021 IMPRESSION: 1. Nonobstructive bowel gas pattern. 2. Patchy opacities in the periphery of the visualized lower lung zones. Clinical correlation for possible viral pneumonia is advised.. Generation Manager: [facility] Transcribe Date/Time: Apr 10 2021 4:34P Dictated [...] of the vasculature. DIVISION OF RADIOLOGY Provider, [facility] [place] - 04/10/2021 * * *Final Report* * [...] correlation for possible viral pneumonia is advised.. Generation Manager[facility] Transcribe Date/Time: Apr 10 2021 4:34P Dictated by : TYRESE ESPINOZA MD This examination was interpreted and the report reviewed and electronically signed by: TYRESE ESPINOZA MD on Apr 10 2021 4:36PM EST [facility] Radiology Study observation (narrative) [facility] XR Abdomen Supine and Uprigh tOrdered By: Ccf Provider on 04-10-2021 [facility] No Panel Informationon 12-01 IMPRESSION: NO ACUTE OSSEOUS ABNORMALITY DEGENERATIVE CHANGES DESCRIBED Generation Manager: SANTOSH Transcribe Date/Time: Dec 01 2020 1:13P Dictated by : JAME CANALES MD This examination was interpreted and the report reviewed and electronically signed by: JAME CANALES MD on Dec 01 2020 1:15PM [facility] DIVISION OF RADIOLOGY Radiology Study observation (narrative) [facility] No Panel InformationOrdered By: Ccf Provider on 12-01-2020 [facility] XR Lumbar spine 3 Viewson * [...] significant abnormality. ----- DIVISION OF RADIOLOGY Provider, [facility] [place] - 12/01/2020 * * *Final Report* * [...] NO ACUTE OSSEOUS ABNORMALITY DEGENERATIVE CHANGES DESCRIBED Generation Manager: SANTOSH Transcribe Date/Time: Dec 01 2020 1:13P Dictated by : JAME CANALES MD This examination was interpreted and the report reviewed and electronically signed by: JAME CANALES MD on Dec 01 2020 1:15PM [facility] XR Thoracic spine AP and Lat eral [...] significant abnormality. ----- DIVISION OF RADIOLOGY Provider, [facility] [place] - 12/01/2020 * * *Final Report* * [...] NO ACUTE OSSEOUS ABNORMALITY DEGENERATIVE CHANGES DESCRIBED Generation Manager: SANTOSH Transcribe Date/Time: Dec 01 2020 1:13P Dictated by : JAME CANALES MD This examination was interpreted and the report reviewed and electronically signed by: JAME CANALES MD on Dec 01 2020 1:15PM [facility] Vital Signs Date Time Vital Sign Value Performing Clinician Facility 02-25-2025 09:10-0400 SaO2% (BldA) [Mass fraction] 94 % Dr. Jese Zheng DO Work Phone: [facility] 02-25-2025 08:20-0400 Body temperature 98.9 [degF] Dr. Jese Zheng DO Work Phone: [facility] 02-25-2025 08:20-0400 Diastolic blood pressure 82 mm[Hg] Dr. Jese Zheng DO Work Phone: 5(845)251-683877 [place] [address] 02-25-2025 08:20-0400 Heart rate 91 /min Dr. Jese Zheng DO Work Phone: 1(291)562-939707 [place] [address] 02-25-2025 08:20-0400 Respiratory rate 18 /min Dr. Jese Zheng DO Work Phone: 1(217)751-238107 [place] [address] 02-25-2025 08:20-0400 Systolic blood pressure 117 mm[Hg] Dr. Jese Zheng DO Work Phone: 4(716)574-621507 [place] [address] 02-25-2025 06:00-0400 Body mass index (BMI) [Ratio] 30.2 kg/m2 Dr. Jese Zheng DO Work Phone: 3(628)226-288407 [place] [address] 02-25-2025 06:00-0400 Body weight 90.[address] Jese Zheng DO Work Phone: 2(193)328-962407 [place] [address] 02-24-2025 21:55-0400 Inhaled oxygen flow rate 2 L/min Dr. eJse Zheng DO Work Phone: 2(437)084-676607 [place] [address] 02-24-2025 10:16-0400 Body height 172.[address] eJse Zheng DO Work Phone: 0(457)808-924907 [place] [address] 02-22-2025 20:07-0400 Body temperature 98.1 [degF] Dr. Jese Zheng DO Work Phone: 4(319)002-665307 [place] [address] 02-22-2025 20:07-0400 Diastolic blood pressure 89 mm[Hg] Dr. Jese Zheng DO Work Phone: 8(247)877-552107 [place] [address] 02-22-2025 20:07-0400 Heart rate 124 /min Dr. Jese Zheng DO Work Phone: 5(420)440-018407 [place] [address] 02-22-2025 20:07-0400 Respiratory rate 21 /min Dr. Jese Zheng DO Work Phone: 5(473)711-860107 [place] [address] 02-22-2025 20:07-0400 SaO2% (BldA) [Mass fraction] 94 % Dr. Jese Zheng DO Work Phone: [facility] 02-22-2025 20:07-0400 Systolic blood pressure 141 mm[Hg] Dr. Jese Zheng DO Work Phone: [facility] 02-22-2025 19:56-0400 Inhaled oxygen flow rate 2 L/min Dr. Jese Zheng DO Work Phone: [facility] 02-22-2025 18:07-0400 Body mass index (BMI) [Ratio] 32.4 kg/m2 Dr. Jese Zheng DO Work Phone: 1(760)532-539277 [place] [address] 02-22-2025 18:07-0400 Body weight 97.[address] Jese Zheng DO Work Phone: 5(025)961-312907 [place] [address] 02-22-2025 16:31-0400 Body height 172.[address] Jese Zheng DO Work Phone: [facility] 02-22-2025 15:09-0400 Body temperature 97.7 [degF] Selin Suppan [employer]ERGY [employer]ER[employer] Work Phone: [facility] 02-22-2025 15:09-0400 Diastolic blood pressure 74 mm[Hg] Selin Suppan [employer]ERGY [employer]ER[employer] Work Phone: [facility] 02-22-2025 15:09-0400 Heart rate 110 /min Selin Suppan ENERGY BR[employer]ER.[employer] Work Phone: [facility] 02-22-2025 15:09-0400 SaO2% (BldA) [Mass fraction] 96 % Selin Suppan [employer]ERGY BR[employer]ER.[employer] Work Phone: [facility] 02-22-2025 15:09-0400 Systolic blood pressure 122 mm[Hg] Selin Suppan [employer]ERGY BR[employer]ER[employer] Work Phone: [facility] 12-30-2024 14:57-0400 Body mass index (BMI) [Ratio] 31.17 kg/m2 Jese Zheng DO Work Phone: [facility] 12-30-2024 14:57-0400 Body temperature 96.8 [degF] Jese Zheng DO Work Phone: [facility] 12-30-2024 14:57-0400 Body weight 92.99 kg Jese Zheng DO Work Phone: [facility] 12-30-2024 14:57-0400 Diastolic blood pressure 70 mm[Hg] Jese Zheng DO Work Phone: [facility] 12-30-2024 14:57-0400 Heart rate 80 /min Jese Zheng DO Work Phone: [facility] 12-30-2024 14:57-0400 Respiratory rate 16 /min Jese Zheng DO Work Phone: [facility] 12-30-2024 14:57-0400 Systolic blood pressure 120 mm[Hg] Jese Zheng DO Work Phone: [facility] 09-23-2024 15:07-0500 Body mass index (BMI) [Ratio] 31.32 kg/m2 Jese Zheng DO Work Phone: [facility] 09-23-2024 15:07-0500 Body temperature 97 [degF] Jese Zheng DO Work Phone: [facility] 09-23-2024 15:07-0500 Body weight 93.44 kg Jese Zheng DO Work Phone: [facility] 09-23-2024 15:07-0500 Diastolic blood pressure 64 mm[Hg] Jese Zheng DO Work Phone: [facility] 09-23-2024 15:07-0500 Heart rate 88 /min Jese Zheng DO Work Phone: [facility] 09-23-2024 15:07-0500 Respiratory rate 16 /min Jese Zheng DO Work Phone: [facility] 09-23-2024 15:07-0500 Systolic blood pressure 134 mm[Hg] Jese Zheng DO Work Phone: [facility] 03-17-2024 14:58-0400 Body mass index (BMI) [Ratio] 31.47 kg/m2 Jese Zheng DO Work Phone: [facility] 03-17-2024 14:58-0400 Body temperature 97.11 [degF] Jese Zheng DO Work Phone: [facility] 03-17-2024 14:58-0400 Body weight 93.89 kg Jese Zheng DO Work Phone: [facility] 03-17-2024 14:58-0400 Diastolic blood pressure 80 mm[Hg] Jese Zheng DO Work Phone: [facility] 03-17-2024 14:58-0400 Heart rate 80 /min Jese Zheng DO Work Phone: [facility] 03-17-2024 14:58-0400 Respiratory rate 16 /min Jese Zheng DO Work Phone: [facility] 03-17-2024 14:58-0400 Systolic blood pressure 136 mm[Hg] Jese Zheng DO Work Phone: [facility] 11-27-2023 13:56-0400 Body mass index (BMI) [Ratio] 32.23 kg/m2 Jese Zheng DO Work Phone: [facility] 11-27-2023 13:56-0400 Body temperature 97.39 [degF] Jese Zheng DO Work Phone: [facility] 11-27-2023 13:56-0400 Body weight 96.16 kg Jese Zheng DO Work Phone: [facility] 11-27-2023 13:56-0400 Diastolic blood pressure 60 mm[Hg] Jese Zheng DO Work Phone: [facility] 11-27-2023 13:56-0400 Heart rate 80 /min Jese Zheng DO Work Phone: [facility] 11-27-2023 13:56-0400 Respiratory rate 20 /min Jese Zheng DO Work Phone: [facility] 11-27-2023 13:56-0400 Systolic blood pressure 120 mm[Hg] Jese Zheng DO Work Phone: [facility] 09-20-2023 14:53-0500 Diastolic blood pressure 80 mm[Hg] Jese Zheng DO Work Phone: [facility] 09-20-2023 14:53-0500 Heart rate 85 /min Jese Zheng DO Work Phone: [facility] 09-20-2023 14:53-0500 Respiratory rate 16 /min Jese Zheng DO Work Phone: [facility] 09-20-2023 14:53-0500 SaO2% (BldA) [Mass fraction] 97 % Jese Zheng DO Work Phone: [facility] 09-20-2023 14:53-0500 Systolic blood pressure 124 mm[Hg] Jese Zheng DO Work Phone: [facility] 08-27-2023 08:37-0500 Body temperature 97 [degF] Jese Zheng DO Work Phone: [facility] 08-27-2023 08:37-0500 Body weight 89.81 kg Jese Zheng DO Work Phone: [facility] 08-27-2023 08:37-0500 Diastolic blood pressure 82 mm[Hg] Jese Zheng DO Work Phone: [facility] 08-27-2023 08:37-0500 Heart rate 80 /min Jese Zheng DO Work Phone: [facility] 08-27-2023 08:37-0500 Respiratory rate 16 /min Jese Zheng DO Work Phone: [facility] 08-27-2023 08:37-0500 Systolic blood pressure 138 mm[Hg] Jese Zheng DO Work Phone: [facility] 05-27-2023 13:04-0500 Body temperature 96.49 [degF] Jese Zheng DO Work Phone: [facility] 05-27-2023 13:04-0500 Body weight 90.27 kg Jese Zheng DO Work Phone: [facility] 05-27-2023 13:04-0500 Diastolic blood pressure 82 mm[Hg] Jese Zheng DO Work Phone: [facility] 05-27-2023 13:04-0500 Heart rate 64 /min Jese Zheng DO Work Phone: [facility] 05-27-2023 13:04-0500 Respiratory rate 20 /min Jese Zheng DO Work Phone: [facility] 05-27-2023 13:04-0500 Systolic blood pressure 138 mm[Hg] Jese Zheng DO Work Phone: [facility] 04-05-2023 08:14-0400 Body temperature 98.71 [degF] Mitchel Carney MD Work Phone: [facility] 04-05-2023 08:14-0400 Body weight 92.99 kg Mitchel Carney MD Work Phone: [facility] 04-05-2023 08:14-0400 Diastolic blood pressure 92 mm[Hg] Mitchel Carney MD Work Phone: [facility] 04-05-2023 08:14-0400 Heart rate 94 /min Mitchel Carney MD Work Phone: [facility] 04-05-2023 08:14-0400 Respiratory rate 18 /min Mitchel Carney MD Work Phone: [facility] 04-05-2023 08:14-0400 SaO2% (BldA) [Mass fraction] 99 % Mitchel Carney MD Work Phone: [facility] 04-05-2023 08:14-0400 Systolic blood pressure 142 mm[Hg] Mitchel Carney MD Work Phone: [facility] 02-19-2023 12:37-0400 Body temperature 97.39 [degF] Jese Zheng DO Work Phone: [facility] 02-19-2023 12:37-0400 Body weight 89.81 kg Jese Zheng DO Work Phone: [facility] 02-19-2023 12:37-0400 Diastolic blood pressure 80 mm[Hg] Jese Zheng DO Work Phone: [facility] 02-19-2023 12:37-0400 Heart rate 72 /min Jese Zheng DO Work Phone: [facility] 02-19-2023 12:37-0400 Respiratory rate 20 /min Jese Zheng DO Work Phone: [facility] 02-19-2023 12:37-0400 Systolic blood pressure 124 mm[Hg] Jese Zheng DO Work Phone: [facility] 12-27-2022 10:14-0400 Diastolic blood pressure 81 mm[Hg] Shayan Ellsworth [facility] Work Phone: [facility] 12-27-2022 10:14-0400 Heart rate 94 /min Shayan Ellsworth [facility] Work Phone: [facility] 12-27-2022 10:14-0400 Systolic blood pressure 138 mm[Hg] Shayan Juan RPh Work Phone: [facility] 11-15-2022 11:51-0400 Diastolic blood pressure 72 mm[Hg] Shayan Ellsworth [facility] Work Phone: [facility] 11-15-2022 11:51-0400 Heart rate 109 /min Shayan Juan RPh Work Phone: [facility] 11-15-2022 11:51-0400 Systolic blood pressure 121 mm[Hg] Shayan Ellsworth RP Work Phone: [facility] 11-08-2022 12:40-0400 Body weight 92.17 kg Ankita Green APRNMIGUEL ANGEL Work Phone: [facility] 11-08-2022 12:40-0400 Diastolic blood pressure 82 mm[Hg] Ankita Juliana ENERGY BR[employer]ER[employer]IVER Work Phone: [facility] 11-08-2022 12:40-0400 Heart rate 105 /min Ankita Juliana [employer]ERGY BR[employer]ER[employer] Work Phone: [facility] 11-08-2022 12:40-0400 Respiratory rate 18 /min Ankita Juliana ENERGY BR[employer]ER[employer] Work Phone: [facility] 11-08-2022 12:40-0400 SaO2% (BldA) [Mass fraction] 97 % Ankita Juliana ENERGY BROKER.[employer]IVER Work Phone: [facility] 11-08-2022 12:40-0400 Systolic blood pressure 140 mm[Hg] Ankita Juliana [employer]ERGY BROKER[employer]IVER Work Phone: [facility] 10-18-2022 09:33-0400 Body temperature 98.2 [degF] Radha Praisler-Wood ENERGY BROKER.[employer]IVER Work Phone: [facility] 10-18-2022 09:33-0400 Body weight 91.63 kg Radha Praisler-Wood ENERGY BROKER.[employer]IVER Work Phone: [facility] 10-18-2022 09:33-0400 Diastolic blood pressure 86 mm[Hg] Radha Praisler-Wood ENERGY BROKER.[employer]IVER Work Phone: [facility] 10-18-2022 09:33-0400 Heart rate 101 /min Radha Praisler-Wood ENERGY BROKER.[employer]IVER Work Phone: [facility] 10-18-2022 09:33-0400 Respiratory rate 18 /min Radha Praisler-Wood ENERGY BROKER.[employer]IVER Work Phone: [facility] 10-18-2022 09:33-0400 SaO2% (BldA) [Mass fraction] 100 % Radha Praisler-Wood ENERGY BROKER.[employer]IVER Work Phone: [facility] 10-18-2022 09:33-0400 Systolic blood pressure 144 mm[Hg] Radha Praisler-Wood ENERGY BROKER.[employer]IVER Work Phone: [facility] 07-24-2022 08:53-0500 Body temperature 97.2 [degF] Jese Zheng DO Work Phone: [facility] 07-24-2022 08:53-0500 Body weight 90.72 kg Jese Zheng DO Work Phone: [facility] 07-24-2022 08:53-0500 Diastolic blood pressure 80 mm[Hg] Jese Zheng DO Work Phone: [facility] 07-24-2022 08:53-0500 Heart rate 88 /min Jese Zheng DO Work Phone: [facility] 07-24-2022 08:53-0500 Respiratory rate 20 /min Jese Zheng DO Work Phone: [facility] 07-24-2022 08:53-0500 Systolic blood pressure 134 mm[Hg] Jese Zheng DO Work Phone: [facility] 06-21-2022 09:17-0500 Diastolic blood pressure 78 mm[Hg] Shayan Villedago [facility] Work Phone: [facility] 06-21-2022 09:17-0500 Heart rate 108 /min Shayan Ellsworth [facility] Work Phone: [facility] 06-21-2022 09:17-0500 Systolic blood pressure 128 mm[Hg] Shayan Ellsworth [facility] Work Phone: [facility] 05-29-2022 15:58-0500 Body temperature 97.5 [degF] Brandy Ramirez MD Work Phone: [facility] 05-29-2022 15:58-0500 Body weight 93.89 kg Brandy Ramirez MD Work Phone: [facility] 05-29-2022 15:58-0500 Diastolic blood pressure 78 mm[Hg] Brandy Ramirez MD Work Phone: [facility] 05-29-2022 15:58-0500 Heart rate 107 /min Brandy Ramirez MD Work Phone: [facility] 05-29-2022 15:58-0500 SaO2% (BldA) [Mass fraction] 98 % Brandy Ramirez MD Work Phone: [facility] 05-29-2022 15:58-0500 Systolic blood pressure 134 mm[Hg] Brandy Ramirez MD Work Phone: [facility] 05-21-2022 11:55-0400 Body temperature 97.3 [degF] Ankita Juliana ENERGY BROKER[employer] Work Phone: [facility] 05-21-2022 11:55-0400 Body weight 92.35 kg Ankita Juliana ENERGY BROKER.[employer]IVER Work Phone: [facility] 05-21-2022 11:55-0400 Diastolic blood pressure 82 mm[Hg] Ankita Juliana ENERGY BROKER.[employer]IVER Work Phone: [facility] 05-21-2022 11:55-0400 Heart rate 113 /min Ankita Juliana ENERGY BROKER.[employer]IVER Work Phone: [facility] 05-21-2022 11:55-0400 Respiratory rate 20 /min Ankita Juliana ENERGY BROKER.[employer]IVER Work Phone: [facility] 05-21-2022 11:55-0400 SaO2% (BldA) [Mass fraction] 99 % Ankita Juliana ENERGY BROKER.[employer]IVER Work Phone: [facility] 05-21-2022 11:55-0400 Systolic blood pressure 130 mm[Hg] Ankita Juliana ENERGY BROKER.[employer]IVER Work Phone: [facility] 05-20-2022 08:31-0400 Body temperature 97 [degF] Kanwal Shannan ENERGY BROKER.[employer]IVER Work Phone: [facility] 05-20-2022 08:31-0400 Body weight 94.35 kg Kanwal Shannan ENERGY BROKER.[employer]IVER Work Phone: [facility] 05-20-2022 08:31-0400 Diastolic blood pressure 84 mm[Hg] Kanwal Shannan ENERGY BROKER.[employer]IVER Work Phone: [facility] 05-20-2022 08:31-0400 Heart rate 78 /min Kanwal Shannan ENERGY BROKER.[employer]IVER Work Phone: [facility] 05-20-2022 08:31-0400 Respiratory rate 16 /min Kanwal Shannan ENERGY BROKER.[employer]IVER Work Phone: [facility] 05-20-2022 08:31-0400 SaO2% (BldA) [Mass fraction] 100 % Kanwal Shannan ENERGY BROKER.[employer]IVER Work Phone: [facility] 05-20-2022 08:31-0400 Systolic blood pressure 144 mm[Hg] Kanwal Shannan ENERGY BROKER.[employer]IVER Work Phone: [facility] 04-27-2022 13:49-0400 Body weight 96.16 kg Jese Zheng DO Work Phone: [facility] 04-27-2022 13:49-0400 Diastolic blood pressure 80 mm[Hg] Jese Zheng DO Work Phone: [facility] 04-27-2022 13:49-0400 Heart rate 78 /min Jese Zheng DO Work Phone: [facility] 04-27-2022 13:49-0400 Respiratory rate 16 /min Jese Zheng DO Work Phone: [facility] 04-27-2022 13:49-0400 Systolic blood pressure 140 mm[Hg] Jese Zheng DO Work Phone: [facility] 12-30-2021 09:37-0400 Body temperature 96.69 [degF] Jese Zheng DO Work Phone: [facility] 12-30-2021 09:37-0400 Body weight 95.71 kg Jese Zheng DO Work Phone: [facility] 12-30-2021 09:37-0400 Diastolic blood pressure 70 mm[Hg] Jese Zheng DO Work Phone: [facility] 12-30-2021 09:37-0400 Heart rate 80 /min Jese Zheng DO Work Phone: [facility] 12-30-2021 09:37-0400 Respiratory rate 20 /min Jese Zheng DO Work Phone: [facility] 12-30-2021 09:37-0400 Systolic blood pressure 120 mm[Hg] Jese Zheng DO Work Phone: [facility] 12-20-2021 09:25-0400 Body weight 96.07 kg Ankita Juliana ENERGY BROKER.[employer]IVER Work Phone: [facility] 12-20-2021 09:25-0400 Diastolic blood pressure 96 mm[Hg] Ankita Juliana ENERGY BROKER.[employer]IVER Work Phone: [facility] 12-20-2021 09:25-0400 Heart rate 91 /min Ankita Juliana ENERGY BROKER.[employer]IVER Work Phone: [facility] 12-20-2021 09:25-0400 Respiratory rate 16 /min Ankita Juliana ENERGY BROKER.[employer] DRIVER Work Phone: [facility] 12-20-2021 09:25-0400 SaO2% (BldA) [Mass fraction] 100 % Ankita Juliana ENERGY BROKER.[employer]IVER Work Phone: [facility] 12-20-2021 09:25-0400 Systolic blood pressure 144 mm[Hg] Ankita Juliana ENERGY BROKER.[employer]IVER Work Phone: [facility] 11-14-2021 10:01-0400 Body weight 95.71 kg Jese Zheng DO Work Phone: [facility] 11-14-2021 10:01-0400 Diastolic blood pressure 82 mm[Hg] Jese Zheng DO Work Phone: [facility] 11-14-2021 10:01-0400 Heart rate 98 /min Jese Zheng DO Work Phone: [facility] 11-14-2021 10:01-0400 Respiratory rate 16 /min Jese Zheng DO Work Phone: [facility] 11-14-2021 10:01-0400 SaO2% (BldA) [Mass fraction] 98 % Jese Zheng DO Work Phone: [facility] 11-14-2021 10:01-0400 Systolic blood pressure 138 mm[Hg] Jese Zheng DO Work Phone: [facility] 10-13-2021 08:40-0400 Body temperature 97.11 [degF] Jese Zheng DO Work Phone: [facility] 10-13-2021 08:40-0400 Body weight 97.07 kg Jese Zheng DO Work Phone: [facility] 10-13-2021 08:40-0400 Diastolic blood pressure 90 mm[Hg] Jese Zheng DO Work Phone: [facility] 10-13-2021 08:40-0400 Heart rate 80 /min Jese Zheng DO Work Phone: [facility] 10-13-2021 08:40-0400 Respiratory rate 16 /min Jese Zheng DO Work Phone: [facility] 10-13-2021 08:40-0400 Systolic blood pressure 146 mm[Hg] Jese Zheng DO Work Phone: [facility] Encounters Encounter Date Encounter Type Care Provider Facility Start: 02-24-2025 Non-patient / Non-visit Dr. Clarissa [facility] Work Phone: Start: 02-24-2025 Non-patient / Non-visit [facility] Raya [facility] Start: 02-23-2025 Non-patient / Non-visit [facility]. Raya [facility] Start: 02-22-2025 End: 02-25-2025 Evaluation and management of inpatient Dr. Denton Cook MD -[facility] Work Phone: Start: 02-22-2025 Non-patient / Non-visit Dr. Denton [facility] Work Phone: Start: 02-22-2025 End: 02-22-2025 Office outpatient visit 25 minutes Selin Garcia APRN.M[employer]OR [employer] DRIVER Work Phone: [facility] Comment on above: Chest pain on breath ing (Primary Dx); Type 2 diabetes mellitus with peripheral neuropathy (HCC); Shortness of breath; Fatigue, unspecified type Start: 02-22-2025 End: 02-22-2025 ambulatory Jese L Zheng DO Work Phone: [facility] Comment on above: Shortness of Breath Start: 01-25-2025 End: 02-03-2025 Follow-up encounter Corrine Louise APRN.[facility] Work Phone: [facility] Start: 01-25-2025 End: 01-25-2025 Telephone encounter Susana Garcia [facility] Work Phone: [facility] Comment on above: Results Start: 01-21-2025 End: 01-21-2025 Patient encounter procedure Susana Goldsmithcasio [facility] Work Phone: [facility] Comment on above: Uncontrolled type 2 diabetes mellitus with hyperglycemia (HCC) (Primary Dx) Start: 01-21-2025 End: 01-21-2025 ambulatory JESE L ZHENG Facility[facility] Start: 01-11-2025 End: 01-12-2025 Refill Jese L Zheng DO Work Phone: [facility] Comment on above: Refill Request Start: 12-30-2024 End: 12-30-2024 Patient encounter procedure Jese L Zheng DO Work Phone: [facility] Comment on above: Type 2 diabetes adi itus without complication, with long-term current use of insulin (HCC) (Primary Dx); Trigger middle finger of right hand; Right hand pain; Dysuria; Dyslipidemia; Essential hypertension Start: 12-30-2024 End: 12-30-2024 ambulatory JESE L ZHENG Facility:[facility] Start: 12-16-2024 End: 02-15-2025 Follow-up encounter Natali Carrington Sofia GONZALEZ Work Phone: [facility] [place] Start: 12-11-2024 ambulatory JESE ZHENG Facil ity:[facility] Start: 12-10-2024 End: 12-10-2024 ambulatory JESE Ludmila ESTRADAZHENG Facility:[facility] Start: 11-26-2024 End: 11-26-2024 ambulatory JESE ESTRADARISON Facility:[facility] Start: 11-26-2024 End: 11-26-2024 Patient encounter procedure Susana Garcia [facility] Work Phone: [facility] Comment on above: Uncontrolled type 2 diabetes mellitus with hyperglycemia (HCC) (Primary Dx) Start: 11-16-2024 End: 11-16-2024 Refill Jese Ludmila Zheng DO Work Phone: [facility] [place] Comment on above: Refill Request Start: 10-29-2024 End: 10-29-2024 ambulatory JESE ZHENG Facility:[facility] Start: 10-29-2024 End: 10-29-2024 Patient encounter procedure Susana Teresadanica [facility] Work Phone: [facility] Comment on above: Uncontrolled type 2 diabetes mellitus with hyperglycemia (HCC) (Primary Dx) Start: 09-24-2024 End: 09-24-2024 E-mail encounter from caregiver Susana Goldsmithmajo [facility] Work Phone: [facility] Start: 09-24-2024 End: 09-24-2024 Follow-up encounter Susana Garcia [facility] Work Phone: [facility] Comment on above: Pharmacist Follow Up Visit Start: 09-23-2024 End: 09-23-2024 ambulatory JESE Lumdila ZHENG [facility] Start: 09-23-2024 End: 09-23-2024 Patient encounter procedure Jese Estradarison DO Work Phone: [facility] [place] Comment on above: Type 2 diabetes adi itus with peripheral neuropathy (HCC) (Primary Dx); Acute cough; Rhonchi at both lung bases; Shortness of breath; COVID-19; Vitamin B12 deficiency; Vitamin D deficiency; Dyslipidemia; Essential hypertension; Trigger middle finger of right hand; Right hand pain Start: 09-09-2024 End: 09-09-2024 Refill Jese L Zheng DO Work Phone: [facility] [place] Comment on above: Refill Request Start: 07-23-2024 End: 07-23-2024 ambulatory JESE L ZHENG [facility] Start: 07-23-2024 End: 07-23-2024 Patient encounter procedure Susana Garcia [facility] Work Phone: [facility] Comment on above: Uncontrolled type 2 diabetes mellitus with hyperglycemia (HCC) (Primary Dx) Start: 07-21-2024 End: 07-21-2024 Telephone encounter John Brown MD Work Phone: Orthopaedics Comment on above: Results Start: 07-20-2024 End: 07-20-2024 ambulatory JESE L ZHENG [facility] Start: 07-20-2024 End: 07-20-2024 ambulatory JESE L ZHENG [facility] Start: 07-20-2024 End: 07-20-2024 Patient encounter procedure John Brown MD Work Phone: Orthopaedics Comment on above: Type 2 diabetes adi itus with peripheral neuropathy (HCC) (Primary Dx); Right hand pain; Trigger finger, unspecified finger, unspecified laterality Start: 07-16-2024 End: 07-28-2024 Telephone encounter Jese L Zheng DO Work Phone: [facility] Comment on above: Patient Question Start: 07-06-2024 End: 07-06-2024 Telephone encounter Susana Garcia [facility] Work Phone: [facility] Comment on above: Appointment (Pharmac ist Visit Rescheduling) Start: 06-23-2024 End: 06-23-2024 Subsequent hospital visit by physician Radhika [facility] [place] Work Phone: Radiology Comment on above: Right hand pain [M79 .641] Start: 06-23-2024 End: 06-23-2024 ambulatory JESE ZHENG [facility] Start: 06-23-2024 End: 06-23-2024 ambulatory JESE ZHENG [facility] Start: 05-05-2024 End: 05-05-2024 Telephone encounter Jese Zheng DO Work Phone: Family Medicine [place] Start: 05-04-2024 End: 05-04-2024 Telephone encounter Jese Zheng DO Work Phone: Internal Medicine [place] Comment on above: Insurance Authorizat ion Start: 05-01-2024 End: 05-04-2024 ambulatory Susana Goldsmithcasio [facility] Work Phone: [facility] Start: 05-01-2024 End: 05-04-2024 Patient encounter procedure Susana Rupalcasio [facility] Work Phone: [facility] Comment on above: tredella Start: 04-23-2024 End: 04-23-2024 ambulatory JESE ZHENG [facility] Start: 04-23-2024 End: 04-23-2024 Patient encounter procedure Susana Goldsmithcasio [facility] Work Phone: [facility] Comment on above: Uncontrolled type 2 diabetes mellitus with hyperglycemia (HCC) (Primary Dx) Start: 04-15-2024 End: 04-16-2024 Documentation procedure Mammography Coordinator LOD ANCILLARY AREA NOT LISTED Start: 04-15-2024 End: 04-16-2024 Letter encounter Mammography Coordinator LODI ANCILLARY AREA NOT LISTED Start: 04-14-2024 ambulatory JESE ZHENG Facil ity:[facility] Start: 04-14-2024 End: 04-14-2024 Subsequent hospital visit by physician Mammo/Bone Density [facility]MO [facility] Comment on above: Encounter for screen ing mammogram for breast cancer [Z12.31] Start: 04-07-2024 End: 04-07-2024 Refill Jese Zheng DO Work Phone: Family Medicine [place] Comment on above: Refill Request Start: 03-19-2024 End: 03-19-2024 ambulatory JESE ZHENG [facility] Start: 03-17-2024 End: 03-17-2024 ambulatory JESE ZHENG [facility] Start: 03-17-2024 End: 03-17-2024 Patient encounter procedure Jese Zheng DO Work Phone: Family Medicine [place] Comment on above: Type 2 diabetes adi itus without complication, with long-term current use of insulin (HCC) (Primary Dx); Vitamin B12 deficiency; Dyslipidemia; Vitamin D deficiency; Essential hypertension; Gastroesophageal reflux disease, unspecified whether esophagitis present Start: 03-05-2024 End: 03-05-2024 ambulatory JESE ZHENG [facility] Start: 03-05-2024 End: 03-05-2024 Patient encounter procedure Susana Goldsmithcasio [facility] Work Phone: [facility] Comment on above: Uncontrolled type 2 diabetes mellitus with hyperglycemia (HCC) (Primary Dx) Start: 02-06-2024 Telephone encounter Susana Goldsmithcasio [facility] Work Phone: [facility] Comment on above: Missed Appointment Start: 01-28-2024 ambulatory Susana torresasio [facility] Work Phone: [facility] Start: 01-28-2024 Patient encounter procedure Susanagela Goldsmithcasio [facility] Work Phone: [facility] Comment on above: tredella Start: 01-28-2024 Telephone encounter Susanagela Goldsmithcasio [facility] Work Phone: [facility] Comment on above: Patient Update Start: 01-24-2024 Refill Corrine Louise APRN.MOTOR BUS DRIVER Work Phone: Family Medicine [place] Comment on above: Refill Request Start: 01-10-2024 Telephone encounter Jese gandhi DO Work Phone: Family Medicine [place] Comment on above: Insurance Authorizat ion (Ozempic) Insurance Authorizat ion Start: 01-09-2024 End: 01-09-2024 Patient encounter procedure Susana Goldsmithcasio [facility] Work Phone: [facility] Comment on above: Uncontrolled type 2 diabetes mellitus with hyperglycemia (HCC) (Primary Dx) Start: 12-27-2023 Telephone encounter Jese Ludmila gandhi DO Work Phone: Family [facility] [place] Start: 11-27-2023 End: 11-27-2023 Patient encounter procedure Jese Ludmlia Zavalaon DO Work Phone: [facility] [place] Comment on above: Type 2 diabetes adi itus without complication, with long-term current use of insulin (HCC) (Primary Dx); Vitamin B12 deficiency; Hepatic steatosis; Dyslipidemia; Acute otitis externa of right ear, unspecified type; Carotid atherosclerosis, bilateral Start: 11-25-2023 Refill Jese escobar DO Work Phone: [facility] [place] Comment on above: Refill Request Start: 10-31-2023 End: 10-31-2023 Patient encounter procedure Susana Goldsmithcasio [facility] Work Phone: [facility] Comment on above: Uncontrolled type 2 diabetes mellitus with hyperglycemia (HCC) (Primary Dx) Start: 10-31-2023 ambulatory Susana torresasio [facility] Work Phone: [facility] Comment on above: tredella Start: 10-10-2023 Telephone encounter Jese Ludmila gandhi DO Work Phone: [facility] [place] Comment on above: Patient Question Start: 10-09-2023 ambulatory Jese escobar DO Work Phone: Internal Medicine [facility] [place] Start: 09-26-2023 End: 09-26-2023 Patient encounter procedure Susana Goldsmithcasio [facility] Work Phone: [facility] Comment on above: Uncontrolled type 2 diabetes mellitus with hyperglycemia (HCC) (Primary Dx) Start: 09-21-2023 Telephone encounter Jese Ludmila gandhi DO Work Phone: [facility] [place] Start: 09-20-2023 End: 09-20-2023 Patient encounter procedure Jese Zheng DO Work Phone: [facility] [place] Comment on above: Acute non-recurrent maxillary sinusitis (Primary Dx); Acute bronchitis, unspecified organism; Rhinorrhea Start: 09-04-2023 Refill Jese Ludmila Ramirez luz DO Work Phone: [facility] [place] Start: 08-27-2023 End: 08-27-2023 Patient encounter procedure Jese Keys Zheng DO Work Phone: [facility] [place] Comment on above: Type 2 diabetes adi itus with peripheral neuropathy (HCC) (Primary Dx); Other polyneuropathy; Fatigue, unspecified type; Dyslipidemia; Hepatic steatosis; Obesity, Class I, BMI 30-34.9; Vitamin D deficiency; Acute bronchitis, unspecified organism Refill Request Start: 08-22-2023 End: 08-22-2023 Patient encounter procedure Susana Goldsmithcasio [facility] Work Phone: [facility] Comment on above: Uncontrolled type 2 diabetes mellitus with hyperglycemia (HCC) (Primary Dx) Start: 06-27-2023 End: 06-27-2023 Patient encounter procedure Susana Paneccasio [facility] Work Phone: [facility] Comment on above: Uncontrolled type 2 diabetes mellitus with hyperglycemia (HCC) (Primary Dx) Start: 06-18-2023 Telephone encounter Susana Rupalcasio [facility] Work Phone: [facility] Comment on above: Patient Update Start: 06-06-2023 End: 06-06-2023 Patient encounter procedure Susana Paneccasio [facility] Work Phone: [facility] Comment on above: Uncontrolled type 2 diabetes mellitus with hyperglycemia (HCC) (Primary Dx) Start: 06-06-2023 E-mail encounter darlene m caregiver Susana Paneccasio [facility] Work Phone: [facility] [place] Start: 06-06-2023 Follow-up encounter Susana Teresaeccasio [facility] Work Phone: [facility] Comment on above: Pharmacy Visit Follo w Up Start: 05-29-2023 Telephone encounter Jese gandhi DO Work Phone: [facility] [place] Comment on above: Medication Problem Start: 05-28-2023 Telephone encounter Jese gandhi DO Work Phone: [facility] [place] Comment on above: Results Start: 05-28-2023 ambulatory JESE Shaffer ity:[id number] Start: 05-28-2023 End: 05-28-2023 [facility] Comment on above: Right leg swelling [ M79.89] Start: 05-27-2023 End: 05-27-2023 Patient encounter procedure Jese Zheng DO Work Phone: [facility] [place] Comment on above: Type 2 [...] Telephone encounter Mitchel Alfonso MD Work Phone: [place] [facility] Comment on above: Results; Covid Posit hiren (Paxlovid) Start: 04-05-2023 End: 04-05-2023 Patient encounter procedure Mitchel Carney MD Work Phone: [place] [facility] Comment on above: Acute non-recurrent sinusitis, unspecified location (Primary Dx) Start: 04-02-2023 Refill Jese escobar DO Work Phone: [facility] [place] Comment on above: Refill Request Start: 03-25-2023 Refill Jese escobar DO Work Phone: [facility] [place] Comment on above: Refill Request Start: 03-14-2023 Telephone encounter Jese gandhi DO Work Phone: [facility] [place] Comment on above: Results Start: 02-26-2023 Telephone encounter Jese gandhi DO Work Phone: [facility] Comment on above: Results Start: 02-26-2023 End: 02-26-2023 Subsequent hospital visit by physician Ct [facility] (I-Stat) Work Phone: Cat Scan Comment on above: SOB (shortness of br eath) [R06.02] Start: 02-24-2023 Refill Luciano merida MD Work Phone: [facility] Comment on above: Refill Request Start: 02-19-2023 End: 02-19-2023 Subsequent hospital visit by physician Xr [facility] [place] Work Phone: Radiology Comment on above: SOB (shortness of br eath) [R06.02] Start: 02-19-2023 End: 02-19-2023 Patient encounter procedure Jese Zheng DO Work Phone: [facility] Comment on above: Current moderate epi sode of major depressive disorder without prior episode (HCC) (Primary Dx); Type 2 diabetes mellitus with peripheral neuropathy (HCC); Fatigue, unspecified type; Dyslipidemia; SOB (shortness of breath); Wheezing; Pulmonary nodule; Multiple lung nodules Start: 01-31-2023 Telephone encounter Jese gandhi DO Work Phone: [facility] Comment on above: Insurance Authorizat ion (Freestlye michi) Refill Request Start: 01-03-2023 Chart abstracting Elena peace [facility] Work Phone: Psychology Comment on above: Refill Request Start: 12-27-2022 End: 12-27-2022 Patient encounter procedure Shayan Ellsworth [facility] Work Phone: [facility] Comment on above: Uncontrolled type 2 diabetes mellitus with hyperglycemia (HCC) (Primary Dx) Start: 12-06-2022 End: 12-06-2022 ambulatory [facility] Work Phone: Start: 12-06-2022 End: 12-06-2022 Patient encounter procedure [facility]-Ultrasound, [facility] Start: 11-29-2022 End: 11-29-2022 Subsequent hospital visit by physician Arnie Herrera Wstr Work Phone: Nuclear Medicine Comment on above: Nausea [R11.0] Start: 11-20-2022 Telephone encounter Ankita Cm APRN.CNP Work Phone: Family [facility] [place] Comment on above: CT Scan Insurance Is ramez Start: 11-15-2022 End: 11-15-2022 Patient encounter procedure [facility] Work Phone: [facility] Comment on above: Uncontrolled type 2 diabetes mellitus with hyperglycemia (HCC) (Primary Dx); Essential hypertension Start: 11-08-2022 End: 11-08-2022 Subsequent hospital visit by physician Radhika [facility] [place] [facility] Work Phone: Radiology Comment on above: Chest tightness [R07 .89] Nausea [R11.0] Start: 11-08-2022 End: 11-08-2022 Patient encounter procedure Ankita Green APRN.CNP Work Phone: [facility] Comment on above: Nausea (Primary Dx); Pain of upper abdomen; Type 2 diabetes mellitus with peripheral neuropathy (HCC); RUQ pain; Gastroesophageal reflux disease, unspecified whether esophagitis present; Abdominal bloating; Acute left flank pain; Chest tightness Start: 10-29-2022 Refill Corrine Dani GONZALEZ Work Phone: [facility] Comment on above: Refill Request Start: 10-18-2022 Telephone encounter Brandy Ramirez MD Work Phone: General Surgery Comment on above: Appointment (Appoint ment with Dr. Ramirez for 10/18/22) Start: 10-18-2022 End: 10-18-2022 Patient encounter procedure Shayan [facility] Work Phone: [facility] Comment on above: Uncontrolled type 2 diabetes mellitus with hyperglycemia (HCC) (Primary Dx) Urinary frequency (P rimary Dx); Glucosuria; Acute left-sided low back pain without sciatica Start: 10-01-2022 Refill Corrine Dani [employer]OR [employer] DRIVER Work Phone: [facility] Comment on above: Refill Request Start: 09-26-2022 Refill Corrine Louise ENERGY BROKER.MOTOR BUS DRIVER Work Phone: [facility] Comment on above: Refill Request Start: 09-17-2022 ambulatory ELENA Tony cility:[facility] Start: 09-13-2022 End: 09-13-2022 Patient encounter procedure Shayan Martinez [facility] Work Phone: [facility] Comment on above: Uncontrolled type 2 diabetes mellitus with hyperglycemia (HCC) (Primary Dx) Refill Request Start: 09-07-2022 Documentation procedure Mammog bozena Coordinator [facility] Start: 09-07-2022 Letter encounter Mammography Coordinator [facility] Department Start: 09-06-2022 End: 09-06-2022 Subsequent hospital visit by physician Screen Mammo [facility] Mammogram Comment on above: Encounter for screen ing mammogram for malignant neoplasm of breast [Z12.31] Start: 08-30-2022 Refill Corrine Dani SONIN.MOTOR BUS DRIVER Work Phone: Family Medicine [place] Comment on above: Refill Request Start: 08-29-2022 Telephone encounter Jese gandhi DO Work Phone: Family Medicine [place] Comment on above: Reprint work excuses from a year ago Start: 08-04-2022 Refill Jese escobar DO Work Phone: Family Medicine [place] Comment on above: Refill Request Start: 07-27-2022 Refill Corrine Dani PURI.MOTOR BUS DRIVER Work Phone: Family Medicine [place] Comment on above: Refill Request Start: 07-24-2022 [...] 30-34.9 Start: 07-09-2022 Refill Corrine Russellscotty jacobs APRN.MOTOR BUS DRIVER Work Phone: [facility] Comment on above: Refill Request Start: 06-29-2022 Refill Jese Ramirez son DO Work Phone: Family Medicine [place] Comment on above: Refill Request Start: 06-25-2022 End: 06-25-2022 ambulatory Ankita Juliana [employer] DRIVER Work Phone: [facility] [place] Comment on above: Influenza A (Primary Dx); Persistent cough; Fever, unspecified fever cause Start: 06-25-2022 End: 06-25-2022 Telemedicine consultation with patient Ankita Dumontamos [employer] DRIVER Work Phone: [facility] [place] Start: 06-21-2022 End: 06-21-2022 Patient encounter procedure Shayanashely Villedago [facility] Work Phone: [facility] Comment on above: Uncontrolled type 2 diabetes mellitus with hyperglycemia (HCC) (Primary Dx); Essential hypertension Start: 05-30-2022 Telephone encounter Shayan Villedaarturo dodge [facility] Work Phone: [facility] Comment on above: Appointment Start: 05-29-2022 End: 05-29-2022 Patient encounter procedure Brandy Ramirez MD Work Phone: General Surgery Comment on above: Abdominal pain, unsp ecified abdominal location (Primary Dx); Change in bowel habits Start: 05-24-2022 End: 05-24-2022 Subsequent hospital visit by physician Ct Prep [facility] Cat Scan Comment on above: Nausea [R11.0] Start: 05-21-2022 End: 05-21-2022 Patient encounter procedure [facility]iana [facility] Work Phone: [facility] [place] Comment on above: Right flank pain (Pr imary Dx); RUQ pain; Chronic RLQ pain; Nausea; Nausea and vomiting, unspecified vomiting type Start: 05-20-2022 End: 05-20-2022 Patient encounter procedure Kanwal Campbell [employer]ERGY BROKER.MOTOR BUS DRIVER Work Phone: [place] [facility] Comment on above: Acute right-sided lo w back pain without sciatica (Primary Dx) Start: 05-02-2022 Refill Corrine Almontejulio jacobs ENERGY BROKER.MOTOR BUS DRIVER Work Phone: [facility] [place] Comment on above: Refill Request Start: 05-02-2022 Refill Jese escobar DO Work Phone: [facility] [place] Comment on above: Refill Request Start: 04-27-2022 End: 04-27-2022 Patient encounter procedure Jese Zheng DO Work Phone: [facility] [place] Comment on above: Uncontrolled type 2 diabetes mellitus with hyperglycemia (HCC) (Primary Dx); Vitamin D deficiency; Vitamin B12 deficiency; Need for influenza vaccination; Need for shingles vaccine; Essential hypertension; Hyperlipidemia, mixed Start: 04-25-2022 End: 04-25-2022 Subsequent hospital visit by physician Bone Density [facility] Work Phone: Radiology Comment on above: Screening for osteop orosis [Z13.820] Start: 03-22-2022 Refill Corrine Zurjulio jacobs ENERGY BROKER.MOTOR BUS DRIVER Work Phone: [facility] [place] Comment on above: Refill Request Start: 03-05-2022 Refill Jese escobar DO Work Phone: [facility] Comment on above: Refill Request Start: 02-08-2022 End: 02-08-2022 Patient encounter procedure Shayanashely Villedago [facility] Work Phone: [facility] Comment on above: Uncontrolled type 2 diabetes mellitus with hyperglycemia (HCC) (Primary Dx); Medication management Start: 01-25-2022 Telephone encounter Shayanashely Villedaarturo dodge [facility] Work Phone: [facility] Comment on above: Missed Appointment Start: 01-02-2022 Telephone encounter Jese gandhi DO Work Phone: [facility] [place] Comment on above: Results Start: 01-01-2022 Telephone encounter Jese gandhi DO Work Phone: [facility] Comment on above: Results Start: 12-30-2021 End: 12-30-2021 Subsequent hospital visit by physician Radhika [facility] [place] Work Phone: Radiology Comment on above: Ingrown left greater toenail [L60.0] Start: 12-30-2021 End: 12-30-2021 Patient encounter procedure Jese Zheng DO Work Phone: [facility] Comment on above: Ingrown left greater toenail (Primary Dx); Localized swelling of left foot; Pain of left heel; Injury of left heel, subsequent encounter; Left foot pain Start: 12-27-2021 Telephone encounter Jese gandhi DO Work Phone: [facility] Comment on above: Patient Update; Sybil ent Question Start: 12-26-2021 Refill Emma jaimes ENERGY BROKER.MOTOR BUS DRIVER Work Phone: Neurology Comment on above: Refill Request Start: 12-21-2021 Telephone encounter Shayan dodge [facility] Work Phone: [facility] Comment on above: Results (A1c) Orders Start: 12-20-2021 End: 12-20-2021 Patient encounter procedure Ankita Juliana PURI.MOTOR BUS DRIVER Work Phone: [facility] Comment on above: Cellulitis of left f oot (Primary Dx) Start: 11-15-2021 Telephone encounter Jese Morris jamehola DO Work Phone: [facility] Comment on above: Results Start: 11-14-2021 ambulatory Jese Ramirez luz DO Work Phone: [facility] Comment on above: xrays Start: 11-14-2021 E-mail encounter fro m caregiver Jese Zheng DO Work Phone: [facility] [place] Start: 11-14-2021 End: 11-14-2021 Subsequent hospital visit by physician Radhika [facility] [place] Work Phone: Radiology Comment on above: Injury of left thumb , initial encounter [S69.92XA] Start: 11-14-2021 End: 11-14-2021 Patient encounter procedure Jese Zheng DO Work Phone: [facility] Comment on above: Uncontrolled type 2 diabetes mellitus with hyperglycemia (HCC) (Primary Dx); Essential hypertension; Chronic constipation; Injury of left thumb, initial encounter; Injury of left wrist, initial encounter; Hyperlipidemia, mixed; Generalized abdominal pain; Obesity, Class I, BMI 30-34.9 Start: 10-30-2021 Refill Corrine Dusty jacobs APRN.CNP Work Phone: [facility] Comment on above: Refill Request Start: 10-18-2021 End: 10-18-2021 Subsequent hospital visit by physician [facility] (I-Stat) Work Phone: Cat Scan Comment on above: Adverse effect of tr eatment, subsequent encounter [T88.9XXD] Start: 10-16-2021 Telephone encounter Brandy Ramirez MD Work Phone: General Surgery Comment on above: Patient Question Start: 10-13-2021 End: 10-13-2021 Patient encounter procedure Jese Zheng DO Work Phone: [facility] Comment on above: Uncontrolled type 2 diabetes mellitus with hyperglycemia (HCC) (Primary Dx); Essential hypertension; Hyperlipidemia, mixed; Generalized abdominal pain Start: 04-10-2021 End: 04-10-2021 Subsequent hospital visit by physician Xr [facility] [place] Work Phone: Radiology Comment on above: Generalized abdomina l pain [R10.84] Start: 12-01-2020 End: 12-01-2020 Subsequent hospital visit by physician Xr [facility] [place] Work Phone: Radiology Comment on above: [...] ast 12 lds i&r only Selin Garcia ENERGY BROKER.MOTOR BUS DRIVER Work Phone: Start: 12-30-2024 Hemoglobin A1c/Hemoglobin.total in [...] Jese Zheng DO Work Phone: Start: 05-27-2023 [employer] COVI D-19 VACCINE ( SEASON) AGE 12+ [...] imag inc gb w/pharma intervenj Ankita Juliana ENERGY BROKER.MOTOR BUS DRIVER Work Phone: Start: 11-08-2022 Us abdominal real ti me w/image limited Ankita Juliana ENERGY BROKER.MOTOR BUS DRIVER Work Phone: Start: 11-08-2022 Radiologic exam ches t 2 views Ankita Juliana ENERGY BROKER.MOTOR BUS DRIVER Work Phone: Start: 11-08-2022 Culture bacterial quanttative colony count urine Ankita Juliana ENERGY BROKER.MOTOR BUS DRIVER Work Phone: Start: 11-08-2022 Urnls dip stick/tabl et rgnt auto w/o microscopy Ankita Juliana ENERGY BROKER.MOTOR BUS DRIVER Work Phone: Start: 11-08-2022 Hemoglobin A1c/Hemoglobin.total in Blood Ankita Juliana ENERGY BROKER.MOTOR BUS DRIVER Work Phone: Start: 10-18-2022 Urnls dip stick/tabl et rgnt auto w/o microscopy Daxa Ceballos PA-C Work Phone: Start: 09-17-2022 Colonoscopy Corrine Tanna son ENERGY BROKER.MOTOR BUS DRIVER Work Phone: Start: 09-06-2022 CHANTELL SCREENING W CAROLYN Zheng DO Work Phone: Start: 09-06-2022 Mammography Mammograph y Coordinator Start: 05-24-2022 Ct abdomen & pelvis w/o contrast material Ankita Juliana ENERGY BROKER.MOTOR BUS DRIVER Work Phone: Start: 05-20-2022 Urnls dip stick/tabl et rgnt auto w/o microscopy Kanwal Campbell ENERGY BROKER.MOTOR BUS DRIVER Work Phone: Start: 04-27-2022 INFLUENZA VACCINE QUADRIVALENT [...] exam abdo men 2 views Tamara Bauer ENERGY BROKER.MOTOR BUS DRIVER, DNP Work Phone: Start: 12-01-2020 Radex spine lumbosac ral 2/3 views Tre Zendejas MD Work Phone: Start: 08-16-2015 Colonoscopy Jese Gar rison DO Work Phone: Plan of Treatment Date Care Activity Detail Author Start: 12-30-2034 Urine microalbumin profile DTaP,Tdap,Td Vaccine (4 - Td or Tdap) [facility] Start: 09-17-2032 Colonoscopy COLONOSCOPY [facility] Start: 09-17-2032 COLORECTAL CANCER SCREENING COLORECTAL CANCER SCREENING [facility] Start: 09-17-2032 Screening for malign ant neoplasm of colon [facility] Start: 02-22-2026 Annual PCP Team Greenhouse Superintendent koby Disease Visit Annual PCP Team Chronic Disease Visit [facility] Start: 12-30-2025 Annual PCP Team Greenhouse Superintendent koby Disease Visit Annual PCP Team Chronic Disease Visit [facility] Start: 09-23-2025 Annual PCP Team Greenhouse Superintendent koby Disease Visit Annual PCP Team Chronic Disease Visit [facility] Start: 08-16-2025 Colonoscopy COLONOSCOPY [facility] Start: 08-16-2025 COLORECTAL CANCER SCREENING COLORECTAL CANCER SCREENING [facility] Start: 08-05-2025 Diabetic foot examination Diabetic Foot Exam [facility] Start: 06-23-2025 Annual PCP Team Greenhouse Superintendent koby Disease Visit Annual PCP Team Chronic Disease Visit [facility] Start: 04-23-2025 Hemoglobin A1c measurement HbA1C [facility] Start: 04-14-2025 Screening for malign ant neoplasm of breast Mammogram Screening [facility] Start: 04-06-2025 End: 04-06-2025 Patient encounter procedure 04/06/2025 2:00 PM EDT Office Visit [facility] [place] [address] [place], [place] [id number] Jese Zheng DO [address] [place], [place] [id number] 3 month follow up [facility] [place] Comment on above: 3 month follow up Start: 04-01-2025 Hemoglobin A1c measurement HbA1C [facility] Start: 03-22-2025 Influenza vaccination Influenza Vacc ine (#1) [facility] Start: 03-19-2025 Hepatitis B screening Urine Al bumin:Creatinine Ratio [facility] Start: 03-19-2025 Hepatitis B surface antibody level LDL Cholesterol [facility] Start: 03-17-2025 Annual PCP Team Greenhouse Superintendent koby Disease Visit Annual PCP Team Chronic Disease Visit [facility] Start: 02-25-2025 End: 02-25-2025 Patient encounter procedure 02/25/2025 3:00 PM EDT Office Visit [facility] [address] [place] [address] Susana Garcia, [facility] [address] [place] [address] DM f/up [facility] Comment on above: DM f/up Start: 02-25-2025 Patient discharge [place] Start: 02-24-2025 Oxygen therapy [facility] Start: 02-23-[facility] Start: 02-23-2025 Catheterization of vein [facility] Start: 02-23-2025 Notification of physician [facility] Start: 02-23-2025 Preoperative care [facility] Start: 02-23-2025 [facility] Start: 02-23-2025 US Heart [facility] Start: 02-22-2025 Following clinical pathway protocol [facility] Start: 02-22-2025 Assessment of risk o f venous thromboembolism [facility] Start: 02-22-2025 Insertion of cathete r into peripheral vein [facility] Start: 02-22-2025 Measuring intake and output [facility] Start: 02-22-2025 Providing care accor ding to standard [facility] Start: 02-22-2025 Referral to housemaid [facility] Start: 02-22-2025 [facility] Start: 02-22-2025 Verification routine [facility] Start: 02-22-2025 Admission procedure [facility] Start: 02-22-2025 Hospital admission, emergency, from emergency room, medical nature [facility] Start: 02-22-2025 [facility] Start: 02-22-2025 End: 02-22-2025 [facility] Start: 02-22-2025 Patient referral to dietitian [facility] Start: 01-21-2025 End: 01-21-2025 Patient encounter procedure 01/21/2025 3:00 PM EDT [facility] [address] [place] [address] [facility] [address] [place] [address] DM f/up [facility] Comment on above: DM f/up Start: 01-21-2025 End: 04-22-2025 Basic metabolic 2000 panel - Serum or Plasma [facility] Work Phone: Comment on above: Expected: 01/21/2025 , Expires: 04/22/2025 Start: 12-30-2024 End: 12-30-2024 Patient encounter procedure 12/30/2024 2:40 PM EDT Office Visit [facility] [place] [address] [place] [address] Jese Zheng DO [address] [facility] [place] [address] 3 month follow up [facility] [place] Comment on above: 3 month follow up Start: 12-30-2024 End: 03-31-2025 Urinalysis complete panel - Urine URINALYSIS (WITH MICROSCOPIC) WITH CULTURE IF INDICATED Lab Routine Dysuria Expected: 12/30/2024, Expires: 03/31/2025 [facility] Work Phone: Comment on above: Expected: 12/30/2024 , Expires: 03/31/2025 Start: 12-24-2024 Hemoglobin A1c measurement HbA1C [facility] Start: 11-26-2024 End: 11-26-2024 Patient encounter procedure 11/26/2024 2:30 PM EDT Office Visit [facility] [address] [place] [address] Susana Garcia, [facility] [address], [place] [phone] DM f/up [facility] Comment on above: DM f/up Start: 11-26-2024 Annual PCP Team Greenhouse Superintendent koby Disease Visit Annual PCP Team Chronic Disease Visit [facility] Start: 11-26-2024 BP Controlled (<130/80) BP Controlle d (<130/80) [facility] Start: 10-29-2024 Glaucoma screening Dilated Retinal E xam [facility] Start: 2024 RSV Vaccine (1 - Ris k 60-74 years 1-dose series) RSV Vaccine (1 - Risk 60-74 years 1-dose series) [facility] Start: 10-18-2024 Hemoglobin A1c measurement HbA1C [facility] Start: 09-23-2024 End: 09-23-2024 Patient encounter procedure 09/23/2024 3:00 PM EST Office Visit [facility] [place] [address] [place] [address] Jese Zheng DO [address] [place] [address] 3 month follow up Family [place] Comment on above: 3 month follow up Start: 09-19-2024 Annual PCP Team Greenhouse Superintendent koby Disease Visit Annual PCP Team Chronic Disease Visit [facility] Start: 09-04-2024 Diabetic foot examination Diabetic Foot Exam [facility] Start: 09-03-2024 End: 09-03-2024 Patient encounter procedure 09/03/2024 2:30 PM EST [facility] [address] [place] [address] [facility] [address] [place] [address] DM f/up [facility] Comment on above: DM f/up Start: 08-27-2024 Annual PCP Team Greenhouse Superintendent koby Disease Visit Annual PCP Team Chronic Disease Visit [facility] Start: 08-27-2024 Hepatitis B surface antibody level LDL Cholesterol [facility] Start: 07-23-2024 End: 07-23-2024 Patient encounter procedure 07/23/2024 2:30 PM EST Office Visit [facility] [address] [facility] [address] [facility] [address] [place] [address] DM f/up [facility] Comment on above: DM f/up Start: 06-23-2024 End: 06-23-2024 Patient encounter procedure 06/23/2024 2:40 PM EST Office Visit [facility] [place] [address] [place] [address] Jese Zheng DO [address] [place], [place] [id number] 3-4 month follow up [facility] [place] Comment on above: 3-4 month follow up Start: 06-19-2024 Hemoglobin A1c measurement HbA1C [facility] Start: 06-04-2024 End: 06-04-2024 Patient encounter procedure 06/04/2024 3:30 PM EST Office Visit [facility] [address] [place], [place] [phone] [place] [address] [place], [place] [phone] DM f/up Pharm [facility] Comment on above: DM f/up Start: 05-28-2024 BP Controlled (<130/80) BP Controlle d (<130/80) [facility] Start: 05-28-2024 Glaucoma screening Dilated Retinal E xam [facility] Start: 05-28-2024 Hepatitis C antibody , confirmatory test Dilated Retinal Exam [facility] Start: 05-27-2024 Annual PCP Team Greenhouse Superintendent koby Disease Visit Annual PCP Team Chronic Disease Visit [facility] Start: 04-23-2024 End: 04-23-2024 Patient encounter procedure 04/23/2024 3:30 PM EDT Office Visit [facility] [address] [place], [place] [address] [place] [address] [place] [address] DM f/up [facility] Comment on above: DM f/up Start: 04-14-2024 End: 04-14-2024 Patient encounter procedure 04/14/2024 5:00 PM EDT Appointment [facility] [address] [place] [phone] CHANTELL SCREENING W CAROLYN [facility] Comment on above: CHANTELL SCREENING W CAROLYN Start: 03-31-2024 End: 03-31-2024 Patient encounter procedure 03/31/2024 2:40 PM EDT Appointment Mammogram [address] [place], [place] [id number] Encounter for screening mammogram for breast cancer [Z12.31 Mammogram Comment on above: Encounter for screen ing mammogram for breast cancer [Z12.31 Start: 03-22-2024 Covid-19 Vaccine () Covid-19 Vaccine () [facility] Start: 03-22-2024 Influenza vaccination Influenza Vacc ine (#1) [facility] Start: 03-17-2024 End: 03-17-2024 Patient encounter procedure 03/17/2024 2:40 PM EDT Office Visit [facility] [place] [address] [place] [address] Jese Zheng DO [address] [place] [address] 3 month follow up Family [facility] [place] Comment on above: 3 month follow up Start: 03-17-2024 End: 06-16-2024 25-hydroxyvitamin D3 [Mass/volume] in Serum or Plasma VITAMIN D 25 HYDROXY Lab Routine Vitamin D deficiency Expected: 03/17/2024, Expires: 06/16/2024 [facility] Work Phone: Comment on above: Expected: 03/17/2024 , Expires: 06/16/2024 Start: 03-17-2024 End: 06-16-2024 CBC W Auto Differential panel - Blood COMPLETE BLOOD COUNT AND DIFFERENTIAL Lab Routine Type 2 diabetes mellitus without complication, with long-term current use of insulin (HCC) Dyslipidemia Expected: 03/17/2024, Expires: 06/16/2024 [facility] Comment on above: Expected: 03/17/2024 , Expires: 06/16/2024 Start: 03-17-2024 End: 06-16-2024 Cobalamin (Vitamin B12) [Mass/volume] in Serum or Plasma VITAMIN B12 Lab Routine Vitamin B12 deficiency Expected: 03/17/2024, Expires: 06/16/2024 [facility] Comment on above: Expected: 03/17/2024 , Expires: 06/16/2024 Start: 03-17-2024 End: 06-16-2024 Comprehensive metabolic 2000 panel - Serum or Plasma COMPREHENSIVE METABOLIC PANEL Lab Routine Type 2 diabetes mellitus without complication, with long-term current use of insulin (HCC) Dyslipidemia Expected: 03/17/2024, Expires: 06/16/2024 [facility] Comment on above: Expected: 03/17/2024 , Expires: 06/16/2024 Start: 03-17-2024 End: 06-16-2024 Hemoglobin A1c in Blood HEMOGLOBIN A1C Lab Routine Type 2 diabetes mellitus without complication, with long-term current use of insulin (HCC) Expected: 03/17/2024, Expires: 06/16/2024 [facility] Comment on above: Expected: 03/17/2024 , Expires: 06/16/2024 Start: 03-17-2024 End: 06-16-2024 Lipid 1996 panel - Serum or Plasma LIPID PANEL BASIC Lab Routine Dyslipidemia Expected: 03/17/2024, Expires: 06/16/2024 [facility] Comment on above: Expected: 03/17/2024 , Expires: 06/16/2024 Start: 02-27-2024 End: 05-28-2024 Comprehensive metabolic 2000 panel - Serum or Plasma COMPREHENSIVE METABOLIC PANEL Lab Routine Type 2 diabetes mellitus without complication, with long-term current use of insulin (HCC) Expected: 02/27/2024, Expires: 05/28/2024 [facility] Comment on above: Expected: 02/27/2024 , Expires: 05/28/2024 Start: 02-27-2024 End: 05-28-2024 Hemoglobin A1c in Blood HEMOGLOBIN A1C Lab Routine Type 2 diabetes mellitus without complication, with long-term current use of insulin ([facility]) Expected: 02/27/2024, Expires: 05/28/2024 [facility] Work Phone: Comment on above: Expected: 02/27/2024 , Expires: 05/28/2024 Start: 02-27-2024 Hemoglobin A1c measurement HbA1C [facility] Start: 02-27-2024 End: 05-28-2024 Lipid 1996 panel - Serum or Plasma LIPID PANEL BASIC Lab Routine Dyslipidemia Expected: 02/27/2024, Expires: 05/28/2024 [facility] Comment on above: Expected: 02/27/2024 , Expires: 05/28/2024 Start: 02-27-2024 End: 05-28-2024 Microalbumin/Creatinine [Mass Ratio] in Urine ALBUMIN/CREATININE RATIO, URINE Lab Routine Type 2 diabetes mellitus without complication, with long-term current use of insulin (HCC) Expected: 02/27/2024, Expires: 05/28/2024 [facility] Comment on above: Expected: 02/27/2024 , Expires: 05/28/2024 Start: 02-20-2024 ANNUAL PCP TEAM INDUSTRIAL HYGIENE TECHNICIAN KOBY DISEASE VISIT ANNUAL PCP TEAM CHRONIC DISEASE VISIT [facility] Start: 02-20-2024 Hepatitis B surface antibody level LDL CHOLESTEROL [facility] Start: 02-06-2024 End: 02-06-2024 Patient encounter procedure 02/06/2024 3:00 PM EDT Office Visit [facility] [address] [place] [address] [facility] [address], [place] [phone] DM f/up Pharm [facility] Comment on above: DM f/up Start: 01-29-2024 Urine microalbumin profile [facility] Start: 01-09-2024 End: 01-09-2024 Patient encounter procedure 01/09/2024 3:30 PM EDT Office Visit [facility] [address] [place] [address] [facility] [address], [place] [phone] DM f/up [facility] Comment on above: DM f/up Start: 12-26-2023 End: 12-26-2023 Patient encounter procedure Pharm [facility] Comment on above: DM f/up Carotid atherosclero sis, bilateral [I65.23] Start: 12-10-2023 End: 12-10-2023 Patient encounter procedure 12/10/2023 2:20 PM EDT Appointment Mammogram [address] [place] [address] Encounter for screening mammogram for breast cancer [Z12.31] Mammogram Comment on above: Encounter for screen ing mammogram for breast cancer [Z12.31] Start: 11-27-2023 End: 11-27-2023 Patient encounter procedure 11/27/2023 1:40 PM EDT Office Visit Family [facility] [place] [address] [place], [place] [phone] Jese Zheng DO [address] [facility] [place] [address] 3 Month follow up [facility] [place] Comment on above: 3 Month follow up Start: 11-25-2023 Hemoglobin A1c measurement HbA1C [facility] Start: 11-16-2023 BP CONTROLLED (<130/80) BP CONTROLLE D (<130/80) [facility] Start: 11-09-2023 ANNUAL PCP TEAM INDUSTRIAL HYGIENE TECHNICIAN KOBY DISEASE VISIT ANNUAL PCP TEAM CHRONIC DISEASE VISIT [facility] Start: 09-06-2023 Mammography [facility] Start: 09-06-2023 Screening for malign ant neoplasm of breast Mammogram Screening [facility] Start: 08-27-2023 End: 11-26-2023 25-hydroxyvitamin D3 [Mass/volume] in Serum or Plasma [facility] Work Phone: Comment on above: Expected: 08/27/2023 , Expires: 11/26/2023 Start: 08-27-2023 End: 11-26-2023 Comprehensive metabolic 2000 panel - Serum or Plasma [facility] Work Phone: Comment on above: Expected: 08/27/2023 , Expires: 11/26/2023 Start: 08-27-2023 End: 11-26-2023 Hemoglobin A1c in Blood [facility] Work Phone: Comment on above: Expected: 08/27/2023 , Expires: 11/26/2023 Start: 08-27-2023 Hemoglobin A1c measurement HbA1C [facility] Start: 08-27-2023 Hemoglobin A1c/Hemoglobin.total in Blood HbA1C [facility] Start: 08-27-2023 End: 11-26-2023 Lipid 1996 panel - Serum or Plasma [facility] Work Phone: Comment on above: Expected: 08/27/2023 , Expires: 11/26/2023 Start: 08-27-2023 End: 11-26-2023 Magnesium [Mass/volume] in Serum or Plasma [facility] Work Phone: Comment on above: Expected: 08/27/2023 , Expires: 11/26/2023 Start: 08-27-2023 End: 11-26-2023 Thyrotropin [Units/volume] in Serum or Plasma [facility] Work Phone: Comment on above: Expected: 08/27/2023 , Expires: 11/26/2023 Start: 07-24-2023 ANNUAL PCP TEAM INDUSTRIAL HYGIENE TECHNICIAN KOBY DISEASE VISIT ANNUAL PCP TEAM CHRONIC DISEASE VISIT [facility] Start: 07-24-2023 Hepatitis B screening URINE AL BUMIN:CREATININE RATIO [facility] Start: 07-24-2023 Hepatitis B surface antibody level LDL CHOLESTEROL [facility] Start: 07-04-2023 3 comp foot exam completed DIABETIC FOOT EXAM [facility] Start: 07-04-2023 Diabetic foot examination Diabetic Foot Exam [facility] Start: 06-25-2023 ANNUAL PCP TEAM INDUSTRIAL HYGIENE TECHNICIAN KOBY DISEASE VISIT ANNUAL PCP TEAM CHRONIC DISEASE VISIT [facility] Start: 06-21-2023 BP CONTROLLED (<130/80) BP CONTROLLE D (<130/80) [facility] Start: 05-27-2023 End: 08-26-2023 Urinalysis complete panel - Urine URINALYSIS, WITH MICROSCOPIC Lab Routine Type 2 diabetes mellitus with peripheral neuropathy (HCC) Expected: 05/27/2023, Expires: 08/26/2023 [facility] Work Phone: Comment on above: Expected: 05/27/2023 , Expires: 08/26/2023 Start: 05-22-2023 Hemoglobin A1c/Hemoglobin.total in Blood HBA1C [facility] Start: 05-21-2023 ANNUAL PCP TEAM INDUSTRIAL HYGIENE TECHNICIAN KOBY DISEASE VISIT ANNUAL PCP TEAM CHRONIC DISEASE VISIT [facility] Start: 04-27-2023 ANNUAL PCP TEAM INDUSTRIAL HYGIENE TECHNICIAN KOBY DISEASE VISIT ANNUAL PCP TEAM CHRONIC DISEASE VISIT [facility] Start: 04-25-2023 Hepatitis B surface antibody level LDL CHOLESTEROL [facility] Start: 03-22-2023 Covid-19 Vaccine () Covid-19 Vaccine () [facility] Start: 03-22-2023 Influenza vaccination [facility] Start: 03-06-2023 ANNUAL PCP TEAM INDUSTRIAL HYGIENE TECHNICIAN KOBY DISEASE VISIT ANNUAL PCP TEAM CHRONIC DISEASE VISIT [facility] Start: 02-07-2023 Hemoglobin A1c/Hemoglobin.total in Blood HBA1C [facility] Start: 12-30-2022 ANNUAL PCP TEAM INDUSTRIAL HYGIENE TECHNICIAN KOBY DISEASE VISIT ANNUAL PCP TEAM CHRONIC DISEASE VISIT [facility] Start: 12-30-2022 BP CONTROLLED (<130/80) BP CONTROLLE D (<130/80) [facility] Start: 12-20-2022 ANNUAL PCP TEAM INDUSTRIAL HYGIENE TECHNICIAN KOBY DISEASE VISIT ANNUAL PCP TEAM CHRONIC DISEASE VISIT [facility] Start: 12-20-2022 Hepatitis B surface antibody level LDL CHOLESTEROL [facility] Start: 11-14-2022 ANNUAL PCP TEAM INDUSTRIAL HYGIENE TECHNICIAN KOBY DISEASE VISIT ANNUAL PCP TEAM CHRONIC DISEASE VISIT [facility] Start: 10-22-2022 End: 12-22-2022 Hemoglobin A1c in Blood HGB A1C Lab Routine Uncontrolled type 2 diabetes mellitus with hyperglycemia (HCC) Expected: 10/22/2022, Expires: 12/22/2022 [facility] Work Phone: Comment on above: Expected: 10/22/2022 , Expires: 12/22/2022 Start: 10-22-2022 Hemoglobin A1c/Hemoglobin.total in Blood HBA1C [facility] Start: 10-13-2022 ANNUAL PCP TEAM INDUSTRIAL HYGIENE TECHNICIAN KOBY DISEASE VISIT ANNUAL PCP TEAM CHRONIC DISEASE VISIT [facility] Start: 10-09-2022 Adult depression screening assessment DEPRESSION SCREENING [facility] Start: 08-30-2022 Hepatitis C antibody , confirmatory test DILATED RETINAL EXAM [facility] Start: 08-22-2022 Mammography MAMMOGRAM [facility] Start: 08-14-2022 3 comp foot exam completed DIABETIC FOOT EXAM [facility] Start: 08-14-2022 BP CONTROLLED (<130/80) BP CONTROLLE D (<130/80) [facility] Start: 07-28-2022 End: 09-27-2022 25-hydroxyvitamin D3 [Mass/volume] in Serum or Plasma VITAMIN D 25 HYDROXY Lab Routine Vitamin D deficiency Expected: 07/28/2022, Expires: 09/27/2022 [facility] Work Phone: Comment on above: Expected: 07/28/2022 , Expires: 09/27/2022 Start: 07-28-2022 End: 09-27-2022 ALBUMIN/CREAT RATIO RND UR ALBUMIN/CREAT RATIO RND UR Lab Routine Uncontrolled type 2 diabetes mellitus with hyperglycemia (HCC) Expected: 07/28/2022, Expires: 09/27/2022 [facility] Work Phone: Comment on above: Expected: 07/28/2022 , Expires: 09/27/2022 Start: 07-28-2022 End: 09-27-2022 Cobalamin (Vitamin B12) [Mass/volume] in Serum or Plasma VITAMIN B12 BLOOD Lab Routine Vitamin B12 deficiency Expected: 07/28/2022, Expires: 09/27/2022 [facility] Work Phone: Comment on above: Expected: 07/28/2022 , Expires: 09/27/2022 Start: 07-28-2022 End: 09-27-2022 Comprehensive metabolic 2000 panel - Serum or Plasma COMP METABOLIC PANEL Lab Routine Uncontrolled type 2 diabetes mellitus with hyperglycemia (HCC) Expected: 07/28/2022, Expires: 09/27/2022 [facility] Work Phone: Comment on above: Expected: 07/28/2022 , Expires: 09/27/2022 Start: 07-28-2022 End: 09-27-2022 Hemoglobin A1c in Blood HGB A1C Lab Routine Uncontrolled type 2 diabetes mellitus with hyperglycemia (HCC) Expected: 07/28/2022, Expires: 09/27/2022 [facility] Work Phone: Comment on above: Expected: 07/28/2022 , Expires: 09/27/2022 Start: 07-28-2022 End: 09-27-2022 Lipid 1996 panel - Serum or Plasma LIPID PANEL BASIC Lab Routine Hyperlipidemia, mixed Expected: 07/28/2022, Expires: 09/27/2022 [facility] Work Phone: Comment on above: Expected: 07/28/2022 , Expires: 09/27/2022 Start: 07-26-2022 Hemoglobin A1c/Hemoglobin.total in Blood HBA1C [facility] Start: 07-24-2022 End: 09-23-2022 ALBUMIN/CREAT RATIO RND UR ALBUMIN/CREAT RATIO RND UR Lab Routine Type 2 diabetes mellitus with diabetic polyneuropathy, with long-term current use of insulin (HCC) Expected: 07/24/2022, Expires: 09/23/2022 [facility] Work Phone: Comment on above: Expected: 07/24/2022 , Expires: 09/23/2022 Start: 06-22-2022 SHINGRIX VACCINE (2 of 2) SHINGRIX VACCINE (2 of 2) [facility] Start: 05-09-2022 Hepatitis B screening URINE AL BUMIN:CREATININE RATIO [facility] Start: 05-09-2022 Hepatitis B surface antibody level LDL CHOLESTEROL [facility] Start: 04-23-2022 COVID-19 VACCINE (4 - Booster for Pfizer series) COVID-19 VACCINE (4 - Booster for Pfizer series) [facility] Start: 03-22-2022 Hemoglobin A1c/Hemoglobin.total in Blood HBA1C [facility] Start: 03-22-2022 Influenza vaccination INFLUENZA (#1) [facility] Start: 02-16-2022 COVID-19 VACCINE (4 - Booster for Pfizer series) COVID-19 VACCINE (4 - Booster for Pfizer series) [facility] Start: 02-16-2022 COVID-19 VACCINE (4 - Pfizer series) COVID-19 VACCINE (4 - Pfizer series) [facility] Start: 01-18-2022 End: 03-20-2022 CBC panel - Blood by Automated count CBC Lab Routine Hyperlipidemia, mixed Expected: 01/18/2022, Expires: 03/20/2022 [facility] Work Phone: Comment on above: Expected: 01/18/2022 , Expires: 03/20/2022 Start: 01-18-2022 End: 03-20-2022 Comprehensive metabolic 2000 panel - Serum or Plasma COMP METABOLIC PANEL Lab Routine Hyperlipidemia, mixed Expected: 01/18/2022, Expires: 03/20/2022 [facility] [place] Work Phone: Comment on above: Expected: 01/18/2022 , Expires: 03/20/2022 Start: 01-18-2022 End: 03-20-2022 Hemoglobin A1c/Hemoglobin.total in Blood HGB A1C Lab Routine Uncontrolled type 2 diabetes mellitus with hyperglycemia (HCC) Expected: 01/18/2022, Expires: 03/20/2022 [facility] [place] Work Phone: Comment on above: Expected: 01/18/2022 , Expires: 03/20/2022 Start: 01-18-2022 End: 03-20-2022 LIPID PANEL BASIC LIPID PANEL BASIC Lab Routine Hyperlipidemia, mixed Expected: 01/18/2022, Expires: 03/20/2022 [facility] [place] Work Phone: Comment on above: Expected: 01/18/2022 , Expires: 03/20/2022 Start: 12-16-2021 COVID-19 VACCINE (3 - Booster for Pfizer series) COVID-19 VACCINE (3 - Booster for Pfizer series) [facility] Start: 11-12-2021 Hemoglobin A1c/Hemoglobin.total in Blood HBA1C [facility] Start: 10-18-2021 End: 12-18-2021 Fructosamine [Moles/volume] in Serum or Plasma FRUCTOSAMINE BLD Lab Routine Uncontrolled type 2 diabetes mellitus with hyperglycemia (HCC) Expected: 10/18/2021, Expires: 12/18/2021 [facility] [place] Work Phone: Comment on above: Expected: 10/18/2021 , Expires: 12/18/2021 Start: 07-22-2021 DEPRESSION ASSESSMENT DEPRESSION ASS ESSMENT [facility] Start: 2014 SHINGRIX VACCINE (1 of 2) SHINGRIX VACCINE (1 of 2) [facility] Start: 01-26-2014 PNEUMOCOCCAL (2 - PCV) PNEUMOCOCCAL (2 - PCV) [facility] Start: 2009 COLOGUARD (FIT-DNA) COLOGUARD (FIT-D NA) [facility] Start: [address] COLONOGRAPHY [facility] Start: 2009 FECAL OCCULT BLOOD FECAL OCCULT BLOO D [facility] Start: 2009 Screening for malign ant neoplasm of colon [facility] Start: 2009 SIGMOIDOSCOPY SIGMOIDOSCOPY [facility] Start: 10-20-1983 HEPATITIS B (1 of 3 - Risk 3-dose series) HEPATITIS B (1 of 3 - Risk 3-dose series) [facility] Start: 10-20-1983 Hepatitis B Vaccine (1 of 3 - 19+ 3-dose series) Hepatitis B Vaccine (1 of 3 - 19+ 3-dose series) [facility] Start: 1982 Anxiety Screening Anxiety Screening [facility] Start: 1965 HEPATITIS B (1 of 3 - 3-dose series) HEPATITIS B (1 of 3 - 3-dose series) [facility] Start: 1965 Hepatitis B Vaccine (1 of 3 - 3-dose series) Hepatitis B Vaccine (1 of 3 - 3-dose series) [facility] Bacteria identified in Urine by Culture URINE CULTURE Microbiology Routine Acute right-sided low back pain without sciatica Ordered: 05/20/2022 [facility] [place] Work Phone: Comment on above: Ordered: 05/20/2022 Bacteria identified in Urine by Culture URINE CULTURE Microbiology Routine Urinary frequency Ordered: 10/18/2022 [facility] [place] Work Phone: Comment on above: Ordered: 10/18/2022 End: 05-29-2023 COLONOSCOPY DIAGNOSTIC COLONOSCOPY DIAGNOSTIC Endoscopy Routine Abdominal pain, unspecified abdominal location Change in bowel habits 1 Occurrences starting 05/29/2022 until 05/29/2023 [facility] [place] Work Phone: Comment on above: 1 Occurrences starti ng 05/29/2022 until 05/29/2023 End: 06-20-2023 Ct abdomen & pelvis w/o contrast material CT ABD/PEL WO IVCON Radiology STAT Nausea Right flank pain RUQ pain Chronic RLQ pain Nausea and vomiting, unspecified vomiting type 1 Occurrences starting 05/21/2022 until 06/20/2023 [facility] [place] Work Phone: Comment on above: 1 Occurrences starti ng 05/21/2022 until 06/20/2023 End: 01-29-2023 Ct lower extremity w/o contrast material CT FOOT WO IVCON LT Radiology STAT Ingrown left greater toenail Localized swelling of left foot Pain of left heel Injury of left heel, subsequent encounter Left foot pain 1 Occurrences starting 12/30/2021 until 01/29/2023 [facility] [place] Work Phone: Comment on above: 1 Occurrences starti ng 12/30/2021 until 01/29/2023 End: 03-20-2024 Ct thorax w/o contrast material CT CHEST WO IVCON Radiology Routine SOB (shortness of breath) Wheezing Pulmonary nodule 1 Occurrences starting 02/19/2023 until 03/20/2024 [facility] [place] Work Phone: Comment on above: 1 Occurrences starti ng 02/19/2023 until 03/20/2024 End: 11-07-2024 DBT Breast - bilateral screening CHANTELL SCREENING W CAROLYN Radiology Routine Encounter for screening mammogram for breast cancer 1 Occurrences starting 10/09/2023 until 11/07/2024 [facility] [place] Work Phone: Comment on above: 1 Occurrences starti ng 10/09/2023 until 11/07/2024 ECG COMPLETE ECG COMPLETE ECG Routine Chest pain on breathing 02/22/2025 3:46 PM EDT [facility] [place] Work Phone: End: 05-29-2023 EGD DIAGNOSTIC EGD DIAGNOSTIC Endoscopy Routine Abdominal pain, unspecified abdominal location Change in bowel habits 1 Occurrences starting 05/29/2022 until 05/29/2023 [facility] [place] Work Phone: Comment on above: 1 Occurrences starti ng 05/29/2022 until 05/29/2023 End: 12-08-2023 Hepatobil syst imag inc gb w/pharma intervenj NM HEPATOBILIARY W EF AND/OR RX Radiology Routine Nausea Pain of upper abdomen Type 2 diabetes mellitus with peripheral neuropathy (HCC) RUQ pain Gastroesophageal reflux disease, unspecified whether esophagitis present Abdominal bloating 1 Occurrences starting 11/08/2022 until 12/08/2023 [facility] [place] Work Phone: Comment on above: 1 Occurrences starti ng 11/08/2022 until 12/08/2023 End: 08-23-2023 CHANTELL SCREENING CHANTELL SCREENING Radiology Routine Encounter for screening mammogram for malignant neoplasm of breast 1 Occurrences starting 07/24/2022 until 08/23/2023 [facility] [place] Work Phone: Comment on above: 1 Occurrences starti ng 07/24/2022 until 08/23/2023 End: 08-23-2023 CHANTELL SCREENING W CAROLYN CHANTELL SCREENING W CAROLYN Radiology Routine Encounter for screening mammogram for malignant neoplasm of breast 1 Occurrences starting 07/24/2022 until 08/23/2023 [facility] Work Phone: Comment on above: 1 Occurrences starti ng 07/24/2022 until 08/23/2023 Patient Education Coping with He art Failure Heart Attack Dc [facility] Work Phone: SARS-CoV-2 (COVID-19 ) RNA [Presence] in Respiratory specimen by JHONY with probe detection COVID NAAT, UPPER RESPIRATORY, ROUTINE Microbiology Routine Acute non-recurrent sinusitis, unspecified location Ordered: 04/05/2023 [facility] Work Phone: Comment on above: Ordered: 04/05/2023 Troponin T.cardiac [Mass/volume] in Serum or Plasma by High sensitivity method [facility] End: 11-26-2024 US Carotid arteries - bilateral US CAROTID ARTERIES [facility] Vascular Lab Routine Carotid atherosclerosis, bilateral 1 Occurrences starting 11/27/2023 until 11/26/2024 [facility] Comment on above: 1 Occurrences starti ng 11/27/2023 until 11/26/2024 End: 10-23-2025 XR Chest PA and Lateral XR CHEST 2V FRONTAL/LAT Radiology Routine Acute cough Rhonchi at both lung bases 1 Occurrences starting 09/23/2024 until 10/23/2025 [facility] Work Phone: Comment on above: 1 Occurrences starti ng 09/23/2024 until 10/23/2025 XR FOOT GENERAL 3V AP/LAT/OBL LEFT XR FOOT GENERAL 3V AP/LAT/OBL LEFT Radiology Routine Ingrown left greater toenail Localized swelling of left foot Pain of left heel Injury of left heel, subsequent encounter Left foot pain 12/30/2021 10:31 AM EDT [facility] Work Phone: XR Hand - right PA a nd Lateral and Oblique XR HAND GENERAL 3V PA/LAT/OBL RIGHT Radiology Routine Right hand pain Localized swelling of finger of right hand 06/23/2024 4:01 PM EST [facility] Work Phone: [facility] Immunizations Immunization Date Immunization Notes Care Provider Fa [facility] 12-30-2024 tetanus toxoid, redu ritu diphtheria toxoid, and acellular pertussis vaccine, adsorbed Jese Zheng DO Work Phone: [facility] 06-23-2024 COVID-19 vaccine, ag e 12+ yr (PFIZER-BIONTECH COMIRNAT) [place] Work Phone: [facility] 06-23-2024 influenza, seasonal, injectable Xr [place] Work Phone: [facility] 06-23-2024 influenza virus vaccine, unspecified formulation Susana Garcia [facility] Work Phone: [facility] 05-27-2023 COVID-19 vaccine, ag e 12+ yr, season (PFIZER-BIONTECH) Jese Zheng DO Work Phone: [facility] Work Phone: 05-27-2023 influenza, injectabl e, quadrivalent, contains preservative Jese Zhneg DO Work Phone: [facility] Work Phone: 05-27-2023 influenza virus vaccine, unspecified formulation Corrine Louise APRN.[employer] Work Phone: [facility] 07-24-2022 pneumococcal (PCV20) vaccine, 20 valent (PREVNAR 20) Jese Zheng DO Work Phone: [facility] Work Phone: 07-24-2022 zoster vaccine recombinant Jese Zheng DO Work Phone: [facility] Work Phone: 07-24-2022 pneumococcal Conjuga te, unspecified formulation Jese Zheng DO Work Phone: [facility] Work Phone: 04-27-2022 influenza, injectabl e, quadrivalent, contains preservative Jese Zheng DO Work Phone: [facility] 04-27-2022 zoster vaccine recombinant Jese Zheng DO Work Phone: [facility] 04-27-2022 influenza virus vaccine, unspecified formulation 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 Work Phone: [facility] 05-08-2021 influenza, injectabl e, quadrivalent, contains preservative Jese Zheng DO Work Phone: [facility] 08-05-2020 influenza, injectabl e, quadrivalent, contains preservative Jese Zheng DO Work Phone: [facility] Work Phone: 04-10-2019 influenza, injectabl e, quadrivalent, contains preservative Jese Zheng DO Work Phone: [facility] Work Phone: 05-13-2018 influenza, injectabl e, quadrivalent, contains preservative Jese Zheng DO Work Phone: [facility] 05-01-2017 influenza, injectabl e, quadrivalent, contains preservative Jese Zheng DO Work Phone: [facility] 04-23-2016 Influenza virus vaccine [facility] 04-23-2016 influenza, seasonal, injectable, preservative free Jese Zheng DO Work Phone: [facility] 04-16-2016 influenza, injectabl e, quadrivalent, contains preservative Jese Zheng DO Work Phone: [facility] Work Phone: 06-29-2015 influenza, injectabl e, quadrivalent, contains preservative Jese Zheng DO Work Phone: [facility] Work Phone: 06-29-2015 influenza, seasonal, injectable Jese Zheng DO Work Phone: [facility] 05-12-2014 influenza, seasonal, injectable Jese Zheng DO Work Phone: [facility] Work Phone: 04-21-2014 Influenza virus vaccine [facility] 04-21-2014 influenza, seasonal, injectable, preservative free Jese Zheng DO Work Phone: [facility] 01-28-2014 tetanus toxoid, redu ritu diphtheria toxoid, and acellular pertussis vaccine, adsorbed Jese Zheng DO Work Phone: [facility] 05-08-2013 influenza virus vaccine, unspecified formulation Jese Zheng DO Work Phone: [facility] Work Phone: 01-26-2013 pneumococcal polysaccharide vaccine, 23 valent Jese Zheng DO Work Phone: [facility] 09-19-2012 Influenza virus vaccine [facility] 09-19-2012 influenza, seasonal, injectable, preservative free Jese Zheng DO Work Phone: [facility] 08-22-2012 tetanus toxoid, redu ritu diphtheria toxoid, and acellular pertussis vaccine, adsorbed Jese Zheng DO Work Phone: [facility] Work Phone: 07-07-2012 influenza virus vaccine, unspecified formulation Jese Zheng DO Work Phone: [facility] Work Phone: 06-02-2009 novel [id number], all formulations Jese Zhegn DO Work Phone: [facility] 11-20-1999 tetanus and diphther ia toxoids, not adsorbed, for adult use Jese Zheng DO Work Phone: [facility] Payers Date Payer Category Payer Self-pay [id number] 2024 Private Health Insurance [id number] 2024 Unknown [id number] 2023 Unknown [id number] 2023 Unknown [id number] 2023 Unknown [id number] 2 2022 Medicaid [id number] 2017 Medicaid [id number] 2015 Unknown [id number] 2014 Medicaid [employer] [facility] [id number] 2014-Present [phone] [address] [place] [address] Medicaid [id number] Unknown [id number] Unknown [id number] Unknown [id number] Unknown [id number] Unknown [id number] Unknown [id number] Unknown [id number] Social History Date Type Detail Facility Start: 05-29-2013 End: 12-30-2024 Tobacco smoking status NHIS Ex-smoker [facility] Work Phone: Start: 05-13-1989 End: 05-13-2013 History of tobacco use Current smoker [facility] Work Phone: Start: 05-13-1989 End: 05-13-2013 History of tobacco use Cigarette Smoker [facility] Work Phone: Start: 05-29-2013 End: 11-22-2022 Cigarettes smoked current (pack per day) - Reported 0.5 [facility] Start: 05-29-2013 End: 12-30-2024 Tobacco use and exposure Smokeless tobacco non-user [facility] Work Phone: Start: 10-13-2021 End: 12-30-2024 Alcohol intake Current non-drinker of alcohol (finding) [facility] Start: 05-04-2021 End: 04-27-2022 History SDOH Alcohol Frequency 1 [facility] Start: 05-04-2021 History SDOH Alcohol Std Drinks 98 [facility] Start: 05-04-2021 End: 06-25-2022 History SDOH Social Connections Phone 5 [facility] Start: 05-04-2021 End: 06-25-2022 History SDOH Social Connections Get Together 2 [facility] Start: 05-04-2021 End: 06-25-2022 History SDOH Social Connections Living 7 [facility] Start: 10-02-2019 Education 12 [facility] Start: 1965 Sex Assigned At Female [facility] Start: 11-01-2020 End: 06-24-2022 Exposure to SARS-CoV-2 (event) Not sure [facility] Work Phone: Start: 04-06-2022 End: 04-16-2022 Exposure to SARS-CoV-2 (event) Unable to assess [facility] Start: 06-25-2022 History SDOH Alcohol Std Drinks 0 [facility] Start: 04-06-2021 Tobacco smoking status NEIS Unknown if ever smoked [facility] Start: 04-07-2017 None [facility] Start: 01-22-2019 With Family [facility] Start: 04-10-2017 Non-smoker [facility] Start: 06-25-2022 End: 11-22-2022 Social connection and isolation panel [facility] Do you belong to any clubs or organizations such as samaritan groups, unions, fraternal or athletic groups, or school groups? No [facility] Are you now , , , , never or living with a partner? Never [facility] How often to you hav e a drink containing alcohol? Never [facility] How many standard dr inks containing alcohol do you have on a typical day? Patient does not drink [facility] (I/We) worried wheth er (my/our) food would run out before (I/we) got money to buy more. Never true [facility] Start: 04-18-2021 Gender identity Identifies as female gender (finding) [facility] Start: 04-18-2021 Sexual orientation Heterosexual (finding) [facility] Do you feel stress - tense, restless, nervous, or anxious, or unable to sleep at night because your mind is troubled all the time - these days [OSQ] Only a little [facility] Do you feel stress - tense, restless, nervous, or anxious, or unable to sleep at night because your mind is troubled all the time - these days [OSQ] Not at all [facility] Start: 02-22-2025 Tobacco smoking status [facility] Never smoked tobacco (finding) [facility] Start: 02-22-2025 Tobacco smoking status NEIS Current some day smoker [facility] Medical Equipment Procedure Code Equipment Code Equipment Origin al Text Equipment Identifier Dates Mesh [place] [employer] [id number] Surgical Soft Lightweight Low - [id number] Start: 05-27-2017 [id number], [id number], [id number], [id number], [id number], [id number] Start: 09-06-2016 End: 05-09-2023 Comment on above: [...] Assessment Result Facility 02-25-2025 Functional status Ambulates [facility] Work Phone: 02-24-2025 Functional status Assistive Devices None [facility] Work Phone: 05-31-2017 Are you deaf, or do you have serious difficulty hearing No 05/31/2017 10:00 AM Jaycee Rascon RN No [facility] 05-31-2017 Are you blind, or do you have serious difficulty seeing, even when wearing glasses No 05/31/2017 10:00 AM Jaycee Rascon, ABRAHAM No [facility] 05-31-2017 Do you have serious difficulty walking or climbing stairs No 05/31/2017 10:00 AM Jaycee Rascon RN No [facility] 05-31-2017 Do you have difficul ty dressing or bathing No 05/31/2017 10:00 AM Jaycee Rascon RN No [facility] 05-31-2017 Because of a physica l, mental, or emotional condition, do you have difficulty doing errands alone such as visiting a physician's office or shopping No 05/31/2017 10:00 AM Jaycee Rascon RN No [facility] Mental Status Date Assessment Result Facility 02-25-2025 Cognitive function Voice/Name [facility] Work Phone: 02-22-2025 Cognitive function Voice/Name [facility] Work Phone: 05-31-2017 Because of a physica l, mental, or emotional condition, do you have serious difficulty concentrating, remembering, or making decisions Yes 05/31/2017 10:00 AM Jaycee Rascon RN Yes [facility] Clinical Notes 10-12-2014 to 02-25-2025 Note Date & Type Note Facility 02-25-2025 Discharge summary [facility] 02-25-2025 Note [facility] Medical Records Department [address] [place] [address] Discharge Summary 02/25/25 1434 MR#: [id number] Acct: [id number] Name: LINA ISAAC Rep #: [id number] : 1965 59 From: Clarissa Herrera MD PCP: Dr. Jese Zheng DO Status:DIS IN Location: [place] [address] Providers Date of Admission: 02/22/25 Date of [...] managed for n (more content not included)... [facility] 02-24-2025 Progress note Note Date/Time February 24, 2025 5:06pm [facility] Medical Records Department [address] [place] [address] Progress Note 02/24/25 1155 MR#: [id number] Acct: [id number] Name: LINA ISAAC Rep #:[id number] : 1965 59 From: Clarissa Herrera MD PCP: Dr. Jese Zheng, DO Status:AD M IN Location: [place] [address] Subjective Subjective Patient seen and examined. She [...] (Auto) 39.4 L, Lymph % (Auto) 45.8 H,Dubois % (Auto) 12.0 H, Eos % (Auto) [...] mainly L5-S1. No acute findings. Reading Location: [place] [address] Rhythm Strip Rhythm Strip: Sinus Tach Rate: [...] to U Charges/Coding Visit Charges Inpatient E&M: 27302 Subs Hosp L2 02/24/25 1706 <Electronically signed by Clarissa Herrera MD> Clarissa Herrera MD Cosigner Signature (if applicable): CC: ~ Signed [facility] Work Phone: 1(973) 638-539408-06-2025 Progress note [facility] Medical Records Department [address] [place] [address] Progress Note 02/24/25 1155 MR#: [id number] Acct: [id number] Name: LINA ISAAC Rep #:[id number] : 1965 59 From: Clarissa Herrera MD PCP: Dr. Jese Zheng, DO Status:AD M IN Location: [place] [address] Subjective Subjective Patient seen and examined. She [...] (Auto) 39.4 L, Lymph % (Auto) 45.8 H,Dubois % (Auto) 12.0 H, Eos % (Auto) [...] mainly L5-S1. No acute findings. Reading Location: [place] [address] Rhythm Strip Rhythm Strip: Sinus Tach Rate: [...] to PCU Charges/Coding Visit Charges Inpatient E&M: 11079 Subs Hosp L2 02/24/25 1706 Clarissa Herrera MD Cosigner Signature (if applicable): CC: ~ Signed [facility]08-06-2025 Progress note Author Elver Montero [facility] Note Date/Time February 24, 2025 7:4 5am [facility] Medical Records Department [address] [place] [address] Progress Note - Cardiology 02/24/25 0741 MR#: [id number] Acct: [id number] Name: LINA ISAAC Rep #:[id number] : 1965 59 From: Elver Montero MD [...] (Auto) 39.4 L, Lymph % (Auto) 45.8 H,Dubois % (Auto) 12.0 H, Eos % (Auto) [...] 39.4 L, Lymph % (Auto) 45.8 H, Dubois % (Auto) 12.0 H, Eos % (Auto) [...] CHRONIC CHANGES. NO ACUTE FINDINGS. Reading Location: [id number] Abdomen/Pelvis CT 02/23/25 10:10 IMPRESSION: No evidence of the ureteral obstruction. Reading Location: [id number] Lumbar Spine CT 02/23/25 18:36 IMPRESSION: Lumbar spine scoliosis and degeneration. Lumbar spine degeneration mainly L5-S1. No acute findings. Reading Location: [place] [address] Physical Exam Const alert, oriented x3 and [...] and perhaps discharge homefor outpatient follow-up. 02/24/25 2375 <Electronically signed by Elver Montero MD> Cosigner Signature (if applicable): CC: ~ Signed [facility] Work Phone: 1(368) 365-980908-06-2025 Progress note [facility] Medical Records Department [address] [place] [address] Progress Note - Cardiology 02/24/25 07 MR#: [id number] Acct: [id number] Name: LINA ISAAC Rep #:[id number] : 1965 59 From: Elver Montero MD [...] (Auto) 39.4 L, Lymph % (Auto) 45.8 H,Dubois % (Auto) 12.0 H, Eos % (Auto) [...] 39.4 L, Lymph % (Auto) 45.8 H, Dubois % (Auto) 12.0 H, Eos % (Auto) 1.9, Baso % (Auto) 0.6, Absolute Neuts (auto) 2.7, Nucleated RBC % 0, [id number], Potassium 3.6, Chloride 106, Carbon Dioxide 24.9, [...] CHANGES. NO ACUTE FINDINGS. Reading Location: [facility] Abdomen/Pelvis CT 02/23/25 10:10 IMPRESSION: No evidence of the ureteral obstruction. Reading Location: [facility] Lumbar Spine CT 02/23/25 18:36 IMPRESSION: Lumbar spine scoliosis and degeneration. Lumbar spine degeneration mainly L5-S1. No acute findings. Reading Location: [place] [address] Physical Exam Const alert, oriented x3 and [...] Cosigner Signature (if applicable): CC: ~ Signed [facility]08-05-2025 Radiology Diagnostic study note [facility] Imaging Services [address] [place] [id number] Spine Lumbar WITH Contrast MR#: [id number] Acct: [id number] Name: LINA ISAAC Rep #: [id number] : 1965 F 59 From: Emma Benitez MD PCP: Dr. Jese Zheng, DO Status: AD M IN Study:Spine Lumbar WITH Contrast Date of Exam : 02/23/25 Exam# [id number] Ordering Dr: Krys Mace DO PROCEDURE: SPINE [...] mainly L5-S1. No acute findings. Reading Location: [place] [address] CC: Dr. Jese Zheng DO; Dr. Faye Mace DO ~ Generation Manager: Signed [facility]08-05-2025 Progress note Author Faye Mace [facility] Note Date/Time February 23, 2025 7:2 3pm [facility] Medical Records Department [address] [place] [address] Progress Note - Hospitalist 02/23/25 0743 MR#: [id number] Acct: [id number] Name: LINA ISAAC Rep #:[id number] : 1965 59 From: Faye Mace DO PCP: Dr. Jese Zheng DO Status:AD M IN Location: ICU ICU05-1 Reason for Visit Chief Complaint: Chest pain Subjective Subjective I saw the patient after she returned from the cardiac Commercial Hvac Technician. She is awake and alert and oriented [...] % (Auto) 48.8, Lymph % (Auto) 37.3, Dubois % (Auto) 11.0 H, Eos % (Auto) [...] % (Auto) 52.6, Lymph % (Auto) 32.5, Dubois % (Auto) 12.7 H, Eos % (Auto) [...] in the appropriate clinical context. Reading Location: [facility] Rhythm Strip Rhythm Strip: Sinus Tach Rate: 110 Ectopy: None Physical Exam Const alert, oriented x3 and well nourished; Negative for no apparent distress or average body habitus Constitutional Narrative: Obese, upper middle-aged, -Northern Irish female, lying in bed right side- lying, [...] Full code Charges/Coding Visit Charges Inpatient E&M: 15803 Subs Hosp L3 02/23/251922 <Electronically signed by Faye Mace DO> Cosigner Signature (if applicable): CC: ~ Signed [facility] Work Phone: 1(955) 788-507008-05-2025 Progress note [facility] Medical Records Department [address] [place] [address] Progress Note - Hospitalist 02/23/25 0743 MR#: [id number] Acct: [id number] Name: LINA ISAAC Rep #:[id number] : 1965 59 From: Faye Mace DO PCP: Dr. Jese Zheng, Status:AD M IN Location: ICU ICU05-1 Reason for Visit Chief Complaint: Chest pain Subjective Subjective I saw the patient after she returned from the cardiac Commercial Hvac Technician. She is awake and alert and orientedto [...] % (Auto) 48.8, Lymph % (Auto) 37.3, Dubois % (Auto) 11.0 H, Eos % (Auto) [...] % (Auto) 52.6, Lymph % (Auto) 32.5, Dubois % (Auto) 12.7 H, Eos % (Auto) [...] in the appropriate clinical context. Reading Location: [facility] Rhythm Strip Rhythm Strip: Sinus Tach Rate: 110 Ectopy: None Physical Exam Const alert, oriented x3 and well nourished; Negative for no apparent distress or average body habitus Constitutional Narrative: Obese, upper middle-aged, -Northern Irish female, lying in bed right side- lying, [...] Full code Charges/Coding Visit Charges Inpatient E&M: 65925 Subs Hosp L3 02/23/251922 Cosigner Signature (if applicable): CC: ~ Signed [facility]08-05-2025 Radiology Diagnostic study note [facility] Imaging Services [address] [place], [place] [address] Abdomen/Pelvis without Cont MR#: [id number] Acct: [id number] Name: LINA ISAAC Rep #: [id number] : 1965 F 59 From: Cisco Gilman MD PCP: Dr. Jese Zheng, DO Status: AD M IN Study:Abdomen/Pelvis without Cont Date of Exa m: 02/23/25 Exam# [id number] Ordering Dr: Krys Mace DO PROCEDURE: ABDOMEN/PELVIS [...] evidence of the ureteral obstruction. Reading Location: [id number] CC: Dr. Jese Zheng DO; Dr. Faye Mace DO ~ Generation Manager: Signed [facility]08-05-2025 Radiology Diagnostic study note [facility] Imaging Services [address] [place] [address] [id number] Brain/Head without Contrast MR#: [id number] Acct: [id number] Name: LINA ISAAC Rep #: [id number] : 1965 F 59 From: Cisco Gilman MD PCP: Dr. Jese Zheng DO Status: AD M IN Study:Brain/Head without Contrast Date of Exa m: 02/23/25 Exam# [id number] Ordering Dr: Krys Mace DO PROCEDURE: BRAIN/HEAD [...] CHRONIC CHANGES. NO ACUTE FINDINGS. Reading Location: [id number] CC: Dr. Jese Zheng DO; Dr. Faye Mace DO ~ Generation Manager: Signed [facility]08-05-2025 Progress note Author Elver Montero [facility] Note Date/Time February 23, 2025 9:0 2am [facility] Medical Records Department [address] [place] [address] Progress Note - Cardiology 02/23/25 0900 MR#: [id number] Acct: [id number] Name: LINA ISAAC Rep #:[id number] : 1965 59 From: Elver Montero MD PCP: Dr. Jese Zheng DO Status:AD M IN Location: [place] [address] Subjective Subjective Patient seen in Commercial Hvac Technician. Patient said that she could not lie [...] % (Auto) 48.8, Lymph % (Auto) 37.3, Dubois % (Auto) 11.0 H, Eos % (Auto) [...] % (Auto) 52.6, Lymph % (Auto) 32.5, Dubois % (Auto) 12.7 H, Eos % (Auto) [...] Neut % (Auto) 48.8,Lymph % (Auto) 37.3, Dubois % (Auto) 11.0 H, Eos % (Auto) [...] % (Auto) 52.6, Lymph % (Auto) 32.5, Dubois % (Auto) 12.7 H, Eos % (Auto) [...] in the appropriate clinical context. Reading Location: [facility] Physical Exam Const no apparent distress Constitutional [...] Cosigner Signature (if applicable): CC: ~ Signed [facility] Work Phone: [phone]) 808-969608-05-2025 Consult note Author Elver Montero [facility] Note Date/Time February 23, 2025 8:0 5am [facility] Medical Records Department [address] [place] [address] Consultation - Cardiology 02/23/25 0759 MR#: [id number] Acct: [id number] Name: LINA ISAAC Rep #:[id number] : 1965 59 From: Elver Montero MD PCP: Dr. Jese Zheng, DO Status:AD M IN Location: [place] [address] Assessment & Plan Assessment/Plan (1) Chest pain: [...] 2.5 mg/3 mL 2.5 mg inhalation Q4H [place] N 05/11/19 Unknown History (0.083 %) solution [...] % (Auto) 48.8, Lymph % (Auto) 37.3, Dubois % (Auto) 11.0 H, Eos % (Auto) [...] % (Auto) 52.6, Lymph % (Auto) 32.5, Dubois % (Auto) 12.7 H, Eos % (Auto) [...] Neut % (Auto) 48.8,Lymph % (Auto) 37.3, Dubois % (Auto) 11.0 H, Eos % (Auto) [...] % (Auto) 52.6, Lymph % (Auto) 32.5, Dubois % (Auto) 12.7 H, Eos % (Auto) [...] in the appropriate clinical context. Reading Location: [id number] 02/23/25804 <Electronically signed by Elver Montero MD> Cosigner Signature (if applicable): CC: Dr. Jese Zheng, DO~ Signed [facility] Work Phone: [phone]) 246-947208-05-2025 Progress note [facility] Medical Records Department [address] [place] [address] Progress Note - Cardiology 02/23/25 0900 MR#: [id number] Acct: [id number] Name: LINA ISAAC Bean Rep #:[id number] : 1965 59 From: Elver Montero MD PCP: Dr. Jese Zheng, Status:AD M IN Location: [place] [address] Subjective Subjective Patient seen in Commercial Hvac Technician. Patient said that she could not lie [...] % (Auto) 48.8, Lymph % (Auto) 37.3, Dubois % (Auto) 11.0 H, Eos % (Auto) [...] % (Auto) 52.6, Lymph % (Auto) 32.5, Dubois % (Auto) 12.7 H, Eos % (Auto) [...] Neut % (Auto) 48.8,Lymph % (Auto) 37.3, Dubois % (Auto) 11.0H, Eos % (Auto) 1.7, [...] MCV 89.1, MCH 30.6, MCHC 34.3, Plt Owitm302, MPV 10.2, Immature Gran % (Auto) 0.200, Neut % (Auto) 52.6, Lymph % (Auto) 32.5, Dubois % (Auto)12.7 H, Eos % (Auto) 1.3, [...] in the appropriate clinical context. Reading Location: [facility] Physical Exam Const no apparent distress Constitutional [...] Cosigner Signature (if applicable): CC: ~ Signed [facility]08-05-2025 Consult note [facility] Medical Records Department [address] [place] [address] Consultation - Cardiology 02/23/25 0759 MR#: [id number] Acct: [id number] Name: LINA ISAAC Rep #:[id number] : 1965 59 From: Elver Montero MD PCP: Dr. Jese Zheng, DO Status:AD M IN Location: [place] [address] Assessment & Plan Assessment/Plan (1) Chest pain: [...] but no history of hypertension or hyperlipidemia. [facility] Medical History Dyslipidemia Trigger ring finger of [...] 2.5 mg/3 mL 2.5 mg inhalation Q4H [place] N 05/11/19 Unknown History (0.083 %) solution [...] % (Auto) 48.8, Lymph % (Auto) 37.3, Dubois % (Auto) 11.0 H, Eos % (Auto) [...] % (Auto) 52.6, Lymph % (Auto) 32.5, Dubois % (Auto) 12.7 H, Eos % (Auto) [...] Neut % (Auto) 48.8,Lymph % (Auto) 37.3, Dubois % (Auto) 11.0H, Eos % (Auto) 1.7, [...] MCV 89.1, MCH 30.6, MCHC 34.3, Plt Zuzsz758, MPV 10.2, Immature Gran % (Auto) 0.200, Neut % (Auto) 52.6, Lymph % (Auto) 32.5, Dubois % (Auto)12.7 H, Eos % (Auto) 1.3, [...] in the appropriate clinical context. Reading Location: [facility] 02/23/25 0805 Cosigner Signature (if applicable): CC: Dr. Jese Zheng, DO~ Signed [facility]08-04-2025 Evaluation note* Diagnosis Onset Date Resolution Status [...] HTN (hypertension) chronic February 22, 2025 8:21pm [facility] Work Phone: 1(603) 967-723308-04-2025 History and physical note Author Denton Cook [facility] Note Date/Time February 22, 2025 8:2 1pm [facility] Medical Records Department [address] [place] [address] History & Physical Exam 02/22/252008 MR#: [id number] Acct: [id number] Name: LINA ISAAC Rep #:[id number] : 1965 59 From: Denton Cook MD [...] and echocardiogram will be ordered as well. [facility] Medical History (Updated 02/22/25 @ 20:09 [...] 2.5 mg/3 mL 2.5 mg inhalation Q4H [place] N 05/11/19 Unknown History (0.083 %) solution [...] % (Auto) 48.8, Lymph % (Auto) 37.3, Dubois % (Auto) 11.0 H, Eos % (Auto) [...] in the appropriate clinical context. Reading Location: [facility] Assessment & Plan Assessment/Plan (1) Chest pain: [...] hold albuterol at this time 2. NSTEMI?consult housemaid Dr Montero. Continue to cycle cardiac enzymes, will add oxygen, nitroglycerin as needed for pain and aspirin. Pain seems to berelatively controlled at this time. Will make patient n.p.o. at midnight 3. Congestive heart failure?will get echocardiogram 4. Diabetes?will add sliding scale insulin and will adjust accordingly 5. Smoking?cessation strongly encouraged 6. DVT prophylaxis?low molecular weight heparin Charges/Coding Visit Charges Inpatient E&M: 38954 Init Hosp L2 02/22/252020 <Electronically signed by Denton Cook MD> Cosigner Signature (if applicable): CC: Dr. Jese Zheng, DO; Dr. Denton Cook MD~ Signed [facility] Work Phone: [phone]) 950-220608-04-2025 Discharge summary Author John Catherine [facility] Note Date/Time February 22, 2025 8:0 9pm [facility] Medical Records Department [address] [place] [address] Emergency Department Summary 02/22/25 MR#: [id number] Acct: [id number] Name: LINA ISAAC Rep #:[id number] : 1965 59 From: John Catherine MD PCP: Dr. Jese Zheng, DO Status:RE G ER Location: ED HPI History of Present Illness Chief Complaint: Chest Pain Informant: patient and EMS Narrative Narrative: 59-year-old female was sent from the PCPs office at [facility] due to the patient having intermittent [...] thought I was having a heart attack. [facility] Medical History (Updated 02/22/25 @ 20:09 [...] 2.5 mg/3 mL 2.5 mg inhalation Q4H [place] N 05/11/19 Unknown History (0.083 %) solution [...] is that this is a type II [place] as opposed to a primary vascular problem,but [...] % (Auto) 48.8 Lymph % (Auto) 37.3 Dubois % (Auto) 11.0 H Eos % (Auto) [...] in the appropriate clinical context. Reading Location: [facility] Rhythm Strip Rhythm Strip: Sinus Tach Rate: [...] DO [Primary Care Provider] - Print Language: Angolan Disposition Disposition: Acute Care Hospital [facility] What to do if you have Problems For any increased pain, shortness of breath, bleeding, nausea or vomiting, chestpain, or any unexpected problems, contact your Primary Care Provider. Call [facility] ([phone]) or report to the closest Emergency Room. Call 911 if necessary. 02/22/252008 <Electronically signed by John Catherine MD> Cosigner Signature (if applicable): CC: Dr. Jese Zheng DO ~ Signed [facility] Work Phone: 1(283) 514-144708-04-2025 History and physical note [facility] Medical Records Department [address] [place] [address] History & Physical Exam 02/22/252008 MR#: [id number] Acct: [id number] Name: LINA ISAAC Rep #:[id number] : 1965 59 From: Denton Cook MD [...] and echocardiogram will be ordered as well. [facility] Medical History (Updated 02/22/25 @ 20:09 [...] 2.5 mg/3 mL 2.5 mg inhalation Q4H [place] N 05/11/19 Unknown History (0.083 %) solution [...] % (Auto) 48.8, Lymph % (Auto) 37.3, Dubois % (Auto) 11.0 H, Eos % (Auto) [...] in the appropriate clinical context. Reading Location: [facility] Assessment & Plan Assessment/Plan (1) Chest pain: [...] hold albuterol at this time 2. NSTEMI?consult housemaid Dr Montero. Continue to cycle cardiac enzymes, will add oxygen, nitroglycerin as needed for pain and aspirin. Pain seems to berelatively controlled at this time. Will make patient n.p.o. at midnight 3. Congestive heart failure?will get echocardiogram 4. Diabetes?will add sliding scale insulin and will adjust accordingly 5. Smoking?cessation strongly encouraged 6. DVT prophylaxis?low molecular weight heparin Charges/Coding Visit Charges Inpatient E&M: 81394 Init Hosp L2 02/22/252020 Cosigner Signature (if applicable): CC: Dr. Jese Zheng DO; Dr. Denton Cook MD~ Signed [facility]08-04-2025 Discharge summary [facility] Medical Records Department [address] [place] [address] Emergency Department Summary 02/22/25 MR#: [id number] Acct: [id number] Name: LINA ISAAC Rep #:[id number] : 1965 59 From: John Catherine MD PCP: Dr. Jese Zheng, DO Status:RE G ER Location: ED HPI History of Present Illness Chief Complaint: Chest Pain Informant: patient and EMS Narrative Narrative: 59-year-old female was sent from the PCPs office at [facility] due to the patient having intermittent [...] thought I was having a heart attack. [facility] Medical History (Updated 02/22/25 @ 20:09 [...] 2.5 mg/3 mL 2.5 mg inhalation Q4H [place] N 05/11/19 Unknown History (0.083 %) solution [...] is that this is a type II WI as opposed toa primary vascular problem,but with [...] % (Auto) 48.8 Lymph % (Auto) 37.3 Dubois % (Auto) 11.0 H Eos % (Auto) [...] in the appropriate clinical context. Reading Location: [facility] Rhythm Strip Rhythm Strip: Sinus Tach Rate: [...] DO [Primary Care Provider] - Print Language: Angolan Disposition Disposition: Acute Care Hospital [facility] What to do if you have Problems For any increased pain, shortness of breath, bleeding, nausea or vomiting, chestpain, or any unexpected problems, contact your Primary Care Provider. Call [facility] ([phone]) or report tothe closest Emergency Room. Call 911 if necessary. 02/22/252008 Cosigner Signature (if applicable): CC: Dr. Jese Zheng DO ~ Signed [facility]08-04-2025 [facility] Medical Records Department [address] [place] [address] History Physical Exam 02/22/252008 MR#: [id number] Acct: [id number] Name: LINA ISAAC Rep #: [id number] : 1965 59 From: Denton Cook MD [...] and echocardiogram will be ordered as well. [facility] Medical History (Updated 02/22/25 @ 20:09 [...] breath or wheezi (more content not included)... [facility]08-04-2025 Radiology Diagnostic study note [facility] Imaging Services [address], [place] [id number] Chest PA and Lateral MR#: [id number] Acct: [id number] Name: LINA ISAAC Rep #: [id number] : 1965 F 59 From: Jd Marinelli MD PCP: Dr. Jese Zheng, Status: RE G ER Study:Chest PA and Lateral Date of Exam: 02/22/25 Exam# [id number] Ordering Dr: Jacki Catherine MD PROCEDURE: CHEST [...] in the appropriate clinical context. Reading Location: [id number] CC: Dr. John Catherine MD; Dr. Jese Zheng, DO ~ Generation Manager: Signed [facility]08-04-2025 NoteHNO ID: [id number] Author: SELIN GARCIA APRN.MOTOR BUS DRIVER Service: ? Author Type: Reheater Helper Type: Progress Notes Filed: 02/22/2025 17:21 Note Text: [facility] Surgery [facility] Emergency Response Form. NOT TO BE USED AT [facility] Complete this report when the Emergency Medical Response is activated (911 calls/EmergencyTransport to the ED) or when a Code Sheet is utilized in the care of a patient (i.e., ASC) Date of the Event: today (Must provide Value) Time of the Event:3:57 pm (Must provide Value) Was emergency response activated? (Local EMS/Emergency Department) YES (Must provide Value) Location of the Incident: [facility] ([facility]) (Must provide Value) Reason/Chief Complaint for Emergency [...] none Patient Disposition: Transferred to Hospital ED: [facility] (Must provide value) [employer] information: Name of Provider- Juany Allen (Must provide value)[facility]08-04-2025 History of Present illness Narrative* Juany Allen MA - 02/22/2025 5:01 PM EDT [facility] Surgery [facility] Emergency Response Form. NOT TO BE USED AT [facility] Complete this report when the Emergency Medical Response is activated (911 calls/EmergencyTransportto the ED) or when a Code Sheet is utilized in the care of a patient (i.e., ASC) Date of the Event: today (Must provide Value) Time of the Event:3:57 pm (Must provide Value) Was emergency response activated? (Local EMS/Emergency Department) YES (Must provide Value) Location of the Incident: [facility] ([facility]) (Must provide Value) Reason/Chief Complaint for Emergency [...] none Patient Disposition: Transferred to Hospital ED: [facility] (Must provide value) [employer] information: Name of Provider- Juany Allen (Must [...] once daily. Oral Medication Containers (SHARPS CONTAINER) [facility] Use to collect sharps as directed. flash glucose scanning reader (FREESTYLE MICHI 3 READER) Use to monitor blood glucose continuously Insulin [place], Disposable, (UNIFINE PENTIPS) 31 gauge x 3/16 [...] (BAQSIMI) 3 mg/actuation nasal spray Use 1 [place] in the nose as needed for low [...] 786.52, ICD10: R07.1 (primary diagnosis) Send to [facility] ER now - ECG COMPLETE - Send [...] improvement. Selin Garcia APRN.CNP documented [facility] Instructions* Patient Instructions* Selin Garcia APRN.CNP - 02/22/2025 3:55 PM EDT Defer to ER- report called documented in this encounterOhio[facility]08-04-2025 NoteHNO ID: [id number] Author: SELIN GARCIA APRN.CNP Service: ? Author [...] times a day. cyanocobal (more content not included)...[facility]08-04-2025 Discharge summary Author John Catherine [facility] Note Date/Time February 22, 2025 8:0 9pm [facility] Medical Records Department [address] [place] [address] Emergency Department Summary 02/22/25 MR#: [id number] Acct: [id number] Name: LINA ISAAC Rep #:[id number] : 1965 59 From: John Catherine MD PCP: Dr. Jese Zheng, DO Status:RE G ER Location: ED HPI History of Present Illness Chief Complaint: Chest Pain Informant: patient and EMS Narrative Narrative: 59-year-old female was sent from the PCPs office at [facility] due to the patient having intermittent [...] thought I was having a heart attack. [facility] Medical History (Updated 02/22/25 @ 20:09 [...] 2.5 mg/3 mL 2.5 mg inhalation Q4H [place] N 05/11/19 Unknown History (0.083 %) solution [...] is that this is a type II [place] as opposed to a primary vascular problem,but [...] % (Auto) 48.8 Lymph % (Auto) 37.3 Dubois % (Auto) 11.0 H Eos % (Auto) [...] in the appropriate clinical context. Reading Location: [facility] Rhythm Strip Rhythm Strip: Sinus Tach Rate: [...] DO [Primary Care Provider] - Print Language: Angolan Disposition Disposition: Acute Care Hospital [facility] What to do if you have Problems For any increased pain, shortness of breath, bleeding, nausea or vomiting, chestpain, or any unexpected problems, contact your Primary Care Provider. Call [facility] ([phone]) or report to the closest Emergency Room. Call 911 if necessary. 02/22/252008 <Electronically signed by John Catherine MD> Cosigner Signature (if applicable): CC: Dr. Jese Zheng DO ~ Signed [facility] Work Phone: 1(290) [phone] Telephone encounter Note* Telephone Encounter - Fabiana Cook LPN - 02/22/2025 9:27 AM EDT informed and states if Pt. doesn't seem Shortness of Breath on the phone make Appt withNP. Appt. made. [facility]08-04-2025 Miscellaneous Notes* Telephone Encounter - Fabiana [...] see Dr Zheng or one of her recycling or rubbish collector. I let Pt know I would send [...] to lay flat. 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 Shortness of Breath walking. 5. RECURRENT [...] center with anything she eats or drinks, parts cataloguer cough,and dizziness/lightheadedness. Pt denies fever or runny nose. 10. O2 SATURATION MONITOR: O2 88-92% RA 11. : Postmenopausal. 12. TRAVEL: Denies traveled out of the country in the last month. Protocols used: Breathing Ljwawrarak-PFBBS-WR documented in this encounterOhio[facility] Hospital08-04-2025 Telephone encounter Note * Telephone Encounter - Digna Roberts RN - 02/22/2025 8:12 AM EDT Protocol recommends go to ER now. Pt states she would rather come in to see Dr Zheng or one of her recycling or rubbish collector. I let Pt know I would send [...] to lay flat. 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 Shortness of Breath walking. 5. RECURRENT [...] center with anything she eats or drinks, parts cataloguer cough,and dizziness/lightheadedness. Pt denies fever or runny nose. 10. O2 SATURATION MONITOR: O2 88-92% RA 11. : Postmenopausal. 12. TRAVEL: Denies traveled out of the country in the last month. Protocols used: Breathing Ezarzujtsk-GCORA-EE [facility]07-16-2025 Telephone encounter Note* Telephone Encounter - Pippa De La Rosa LPN - 02/03/2025 9:18 AM EDT Opened in error. [facility]07-16-2025 Miscellaneous Notes* Telephone Encounter - Pippa De La Rosa LPN - 02/03/2025 9:18 AM EDT Opened in error. documented in this encounterOhiohealth [facility] Hospital07-07-2025 Telephone encounter Note * Telephone Encounter - Susana Garcia RPh - 01/25/2025 1:40 PM EDT BMP WNL since starting Jardiance and A1c showing improvement to 9.6% (from 10.4% on 12/30/24). Jardiance dose recently increased at recent pharmacy visit. Next PharmD f/up on 02/25/25 Susana Garcia PharmD, BCACP Primary Care Clinical Logistics Center Manager [facility] Work Phone: 1(633) 849-573407-07-2025 Miscellaneous Notes* Telephone Encounter - Susana Garcia RPh - 01/25/2025 1:40 PM EDT BMP WNL since starting Jardiance and A1c showing improvement to 9.6% (from 10.4% on 12/30/24). Jardiance dose recently increased at recent pharmacy visit. Next PharmD f/up on 02/25/25 Susana Garcia PharmD, ROSANNE Primary Care Clinical Logistics Center Manager documented in this encounterOhiohealth Shelby Hospital07-03-2025 History of Present illness Narrative* Susana Garcia [facility] - 01/21/2025 3:00 PM EDT Images from [...] any Novolog today because she needs to bulk picker refill Confirmed starting Jardiance and tolerating [...] capsule 1 Oral Medication Containers (SHARPS CONTAINER) [facility] Use to collect sharps as directed. 1 Each 0 flash glucose scanning reader (FREESTYLE IMCHI 3 READER) Use to monitor blood glucose continuously 1 Each 0 Insulin [place], Disposable, (UNIFINE PENTIPS) 31 gauge x 3/16 [...] (BAQSIMI) 3 mg/actuation nasal spray Use 1 [place] in the nose as needed for low [...] Susana Garcia, MonsterD, BCACP Primary Care Clinical Logistics Center Manager I spent a total of 20 minutes on the date of the service which included preparing to see the patient, [id number] patient care, completing clinical documentation, counseling and educating the patient/family/caregiver, and ordering medications, tests, or procedures. documented in this encounterOhiohealth Shelby Hospital07-03-2025 Instructions* Patient Instructions* Susana Garcia RPh [...] on your way out documented in this encounterOhiohealth Shelby Hospital07-03-2025 NoteHNO ID: [id number] Author: SUSANA GARCIA RPh Service: ? Author [...] any Novolog today because she needs to bulk picker refill Confirmed starting Jardiance and tolerating [...] capsule 1 Oral Medication Containers (SHARPS CONTAINER) [facility] Use to collect sharps as directed. 1 Each 0 flash glucose scanning reader (FREESTYLE MICHI 3 READER) Use to monitor blood glucose continuously 1 Each 0 Insulin [place], Disposable, (UNIFINE PENTIPS) 31 gauge x 3/16 [...] sugars and with insu (more content not included)...[facility]06-23-2025 Telephone encounter Note* Telephone Encounter - Maria [...] Lam LPN January 11, 2025 6:48 PM [facility]06-23-[facility]25 Miscellaneous Notes* Telephone Encounter - Maria [...] 11, 2025 6:48 PM documented in this encounterOhiohealth Shelby Hospital06-11-2025 NoteHNO ID: [id number] Author: JESE ZHENG, DO Service: ? Author [...] pad and topical Voltaren. She has taken [place] with relief when pain is severe. Right [...] Use Smoking status: Former (more content not included)...[facility]06-11-2025 History of Present illness Narrative* Jese Zheng, [...] pad and topical Voltaren. She has taken [place] with relief when pain is severe. Right [...] needed (rash, skin lesions). flash glucose sensor (AilolaSTYLE MICHI 14 DAY SENSOR) kit Apply sensor [...] for cough. Oral Medication Containers (SHARPS CONTAINER) [facility] Use to collect sharps as directed. flash glucose scanning reader (FREESTYLE MICHI 3 READER) Use to monitor blood glucose continuously Insulin [place], Disposable, (UNIFINE PENTIPS) 31 gauge x 3/16 [...] (BAQSIMI) 3 mg/actuation nasal spray Use 1 [place] in the nose as needed for low [...] agreed with the plan. Jese Zheng DO [address] [place] [address] documented in this encounterOhiohealth Shelby Hospital05-23-2025 NoteHNO ID: [id number] Author: VALERY PURI RDMS Service: ? Author Type: Motion Pictures Cartoonist Type: Progress Notes Filed: 12/11/2024 08:17 Note [...] PATIENT PRESENTS WITH AN IMPLANTABLE OR ATTACHED SAFETY RELIEF VALVE TECHNICIAN: No RADIOLOGY DEPARTMENT: Ultrasound PERIPHERAL IV DATA: Not applicable SIGNED BY: Valery Puri RDMS December 11, 2024 8:16 [facility]05-22-2025 NoteHNO ID: [id number] Author: NATALI KLEIN APRN.MOTOR BUS DRIVER Service: ? Author Type: Nurse Practitioner Type: [...] a day. Blood-Glucose Sen (more content not included)...[facility] 11-26-2024 History of Present illness Narrative* Susana Garcia, [facility] - 11/26/2024 2:30 PM EDT Images from [...] lesions). 66 g 2 flash glucose sensor (AilolaSTYLE MICHI 14 DAY SENSOR) kit Apply sensor [...] capsule 1 Oral Medication Containers (SHARPS CONTAINER) [facility] Use to collect sharps as directed. 1 Each 0 flash glucose scanning reader (FREESTYLE MICHI 3 READER) Use to monitor blood glucose continuously 1 Each 0 Insulin [place], Disposable, (UNIFINE PENTIPS) 31 gauge x 3/16 [...] (BAQSIMI) 3 mg/actuation nasal spray Use 1 [place] in the nose as needed for low [...] Susana Garcia, PharmD, BCACP Primary Care Clinical Logistics Center Manager I spent a total of 30 minutes on the date of the service which included preparing to see the patient, [id number] patient care, completing clinical documentation, counseling and educating the patient/family/caregiver, and ordering medications, tests, or procedures. documented in this encounterOhiohealth Shelby Hospital05-08-2025 Instructions* Patient Instructions* Susana Garcia RPh [...] = add 12 units documented in this encounterOhiohealth Shelby Hospital05-08-2025 NoteHNO ID: [id number] Author: SUSANA GARCIA RPh Service: ? Author [...] capsule 1 Oral Medication Containers (SHARPS CONTAINER) [facility] Use to collect sharps as directed. 1 Each 0 flash glucose scanning reader (FREESTYLE MICHI 3 READER) Use to monitor blood glucose continuously 1 Each 0 Insulin [place], Disposable, (UNIFINE PENTIPS) 31 gauge x 3/16 [...] Each 3 diclofenac (VOLTARE (more content not included)...[facility] 11-16-2024 Telephone encounter Note* Telephone Encounter - [...] Please advise. Thank you. Fabiana Cook LPN. [facility]04-28-2025 Miscellaneous Notes* Telephone Encounter - Fabiana [...] you. Fabiana Cook LPN. documented in this encounterOhiohealth Shelby Hospital04-10-2025 History of Present illness Narrative* Susana Garcia [facility] - 10/29/2024 2:30 PM EDT Images from [...] capsule 1 Oral Medication Containers (SHARPS CONTAINER) [facility] Use to collect sharps as directed. 1 Each 0 flash glucose scanning reader (FREESTYLE MICHI 3 READER) Use to monitor blood glucose continuously 1 Each 0 Insulin [place], Disposable, (UNIFINE PENTIPS) 31 gauge x 3/16 [...] (BAQSIMI) 3 mg/actuation nasal spray Use 1 [place] in the nose as needed for low [...] Susana Garcia, PharmD, BCACP Primary Care Clinical Logistics Center Manager I spent a total of 35 minutes on the date of the service which included preparing to see the patient, tgpo-tj-eeln patient care, completing clinical documentation, counseling and educating the patient/family/caregiver, and ordering medications, tests, or procedures. documented in this encounterOhiohealth Shelby Hospital04-10-2025 Instructions* Patient Instructions* Susana Garcia RPh - 10/29/2024 2:30 PM EDT Increase Tresiba to 112 units once daily Novolog 20 units plus sliding scale before meals 150-200 = add 2 units 200-250 = add 4 units 250-300 = add 6 units 301-350 = add 8 units >350 = add 12 units documented in this encounterOhiohealth Shelby Hospital04-10-2025 NoteHNO ID: [id number] Author: SUSANA GARCIA RPh Service: ? Author [...] capsule 1 Oral Medication Containers (SHARPS CONTAINER) [facility] Use to collect sharps as directed. 1 Each 0 flash glucose scanning reader (FREESTYLE MICHI 3 READER) Use to monitor blood glucose continuously 1 Each 0 Insulin [place], Disposable, (UNIFINE PENTIPS) 31 gauge x 3/16 [...] sugars and with ins (more content not included)...[facility]03-05-2025 NoteHNO ID: [id number] Author: JESE ZHENG, DO Service: ? Author [...] for 24.0 ye (more content not included)... [facility]03-05-2025 History of Present illness Narrative* Jese Zheng, [...] for cough. Oral Medication Containers (SHARPS CONTAINER) [facility] Use to collect sharps as directed. flash glucose scanning reader (FREESTYLE MICHI 3 READER) Use to monitor blood glucose continuously Insulin [place], Disposable, (UNIFINE PENTIPS) 31 gauge x 3/16 [...] (BAQSIMI) 3 mg/actuation nasal spray Use 1 [place] in the nose as needed for low [...] with the plan. Jese Zheng DO [address] [place] [address] documented in this encounterOhiohealth Shelby Hospital02-19-2025 Telephone encounter Note * Telephone Encounter [...] Please advise. Thank you. Fabiana Cook LPN. [facility]02-19-2025 Miscellaneous Notes* Telephone Encounter - Fabiana [...] you. Fabiana Cook LPN. documented in this encounterOhiohealth Shelby Hospital01-02-2025 History of Present illness Narrative* Susana Garcia [facility] - 07/23/2024 2:30 PM EST Images from [...] capsule 1 Oral Medication Containers (SHARPS CONTAINER) [facility] Use to collect sharps as directed. 1 Each 0 flash glucose scanning reader (FREESTYLE MICHI 3 READER) Use to monitor blood glucose continuously 1 Each 0 insulin aspart U-100 (NOVOLOG U-100 INSULIN ASPART) 100 unit/mL Inject 16 units subcutaneously as directed plus sliding scale with meals. Insulin [place], Disposable, (UNIFINE PENTIPS) 31 gauge x 3/16 [...] (BAQSIMI) 3 mg/actuation nasal spray Use 1 [place] in the nose as needed for low [...] Susana Garcia, PharmD, BCACP Primary Care Clinical Logistics Center Manager I spent a total of 30 minutes on the date of the service which included preparing to see the patient, dpsm-lh-[id number] patient care, completing clinical documentation, counseling and educating the patient/family/caregiver, and ordering medications, tests, or procedures. documented in this encounterOhiohealth Shelby Hospital01-02-2025 Instructions* Patient Instructions* Susana Garcia RPh [...] appointment: 09/03 at 2:30pm documented in this encounterOhiohealth Shelby Hospital01-02-2025 NoteHNO ID: [id number] Author: SUSANA GARCIA RPh Service: ? Author [...] capsule 1 Oral Medication Containers (SHARPS CONTAINER) [facility] Use to collect sharps as directed. 1 Each 0 flash glucose scanning reader (FREESTYLE MICHI 3 READER) Use to monitor blood glucose continuously 1 Each 0 insulin aspart U-100 (NOVOLOG U-100 INSULIN ASPART) 100 unit/mL Inject 16 units subcutaneously as directed plus sliding scale with meals. Insulin [place], Disposable, (UNIFINE PENTIPS) 31 gauge x 3/16 [...] (BAQSIMI) 3 mg/actuation nasal spray Use 1 [place] in the nose as needed for low blood sugar. May repeat after 15 minutes using a new device if there is no response. 1 Each 3 polyethylene glycol 3350 (MIRALAX) 17 gram/dose powder 1 capful daily in the morning 1700 (more content not included)...[facility]12-31-2024 Telephone encounter Note* Telephone Encounter - Suellen Rojas MA - 07/21/2024 9:13 AM EST Patient has been notified of message below and verbalized understanding. She already has an appointment scheduled with PCP office on 07/23/2024. Patient advised to contact office back to schedule once she meets the 9.0 or less requirement. [facility]12-31-2024 Telephone encounter Note* Telephone Encounter - Suellen Rojas MA - 07/21/2024 9:13 AM EST ----- Message from John Brown MD sent at 07/21/2024 8:54 AM EST ----- Patient is over 10. Surgery not advisable over 10 due to risk of surgical site infection. Once it is back to 9 or lower, we would consider. [facility]12-31-[facility] Miscellaneous Notes* Telephone Encounter - Suellen [...] lower, we would consider. documented in this encounterOhiohealth Shelby Hospital12-30-2024 NoteHNO ID: [id number] Author: SUELLEN ROJAS MA Service: ? Author Type: Reheater Helper Type: Progress Notes Filed: 08/02/2024 09:35 Note Text: PT ASSESSMENT - CASTING ROOM [facility] presents for Application of splint. Applied size 13 oval 8 splint to Right middle finger. Patient has been instructed in Care and proper application of brace. Suellen Rojas [facility]12-30-2024 History of Present illness Narrative* Suellen Rojas MA - 07/20/2024 4:57 PM EST PT ASSESSMENT - CASTING ROOM [facility] presents for Application of splint. Applied size 13 oval 8 splint to Right middle finger. Patient has been instructed in Care and proper application of brace. Suellen Rojas MA * John Brown MD - 07/20/2024 3:57 PM EST John Brown MD Department of Orthopaedics Orthopaedics [address] [facility] [address] Dept: [phone] Dept July 20, 2025 CHIEF COMPLAINT: New of the Right Hand HPI Patient c/o R hand pain x1 mo. No known injury. Patient reports hand tight and locks when she makesfist. Trouble twisting, opening jars/doors, etc. PCP worked up for gout and pt was on abx with no relief. 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 [...] hand. IMAGING: IMPRESSION: No acute osseous abnormality Generation Manager: SANTOSH Transcribe Date/Time: Jun 26 2024 12:23P [...] for cough. Oral Medication Containers (SHARPS CONTAINER) [facility] Use to collect sharps as directed. flash glucose scanning reader (FREESTYLE MICHI 3 READER) Use to monitor blood glucose continuously Insulin [place], Disposable, (UNIFINE PENTIPS) 31 gauge x 3/16 [...] (BAQSIMI) 3 mg/actuation nasal spray Use 1 [place] in the nose as needed for low [...] physician via US mail. Jese Zheng [address] [facility] [address] Jese Zheng DO [address] [facility] [address] John Brown MD documented in this encounterOhiohealth Shelby Hospital12-30-2024 NoteHNO ID: [id number] Author: JOHN BROWN MD Service: ? Author Type: Physician Type: Progress Notes Filed: 08/02/2024 09:35 Note Text: John Brown MD Department of Orthopaedics Orthopaedics [address] [facility] [address] Dept: [phone] Dept July 20, 2025 CHIEF COMPLAINT: New of the Right Hand HPI Patient c/o R hand pain x1 mo. No known injury. Patient reports hand tight and locks when she makes fist. Trouble twisting, opening jars/doors, etc. PCP worked up for gout and pt was on abx with no relief. 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 [...] hand. IMAGING: IMPRESSION: No acute osseous abnormality Generation Manager: SANTOSH Transcribe Date/Time: Jun 26 2024 12:23P [...] Drug use: No Me (more content not included)...[facility]12-27-2024 Telephone encounter Note* Telephone Encounter - Jese Zheng DO - 07/17/2024 7:06 AM EST Yes, okay to see Orthopedics- Dr. Brown or Dr.Chicorrelli Jese Zheng DO [facility]12-27-2024 Miscellaneous Notes* Telephone Encounter - Jese [...] with reply. Thank you. documented in this encounterOhiohealth Shelby Hospital12-26-2024 Telephone encounter Note * Telephone Encounter [...] agreeable. Call patient with reply. Thank you. [facility]12-16-2024 Telephone encounter Note* Telephone Encounter - uSsana Garcia RPh - 07/06/2024 2:01 PM EST Primary Care Pharmacy Rescheduling Outreach Patient cancelled 06/04 follow up visit and has not yet rescheduled. Call center, please contact patient and reschedule in person, telephone, and virtual visit for Diabetes management within ~4-6 week(s). (Visit length: 30 minutes) Thank you, Susana Garcia, PharmD, BCACP Primary Care Clinical Logistics Center Manager 07/06/2024 2:01 PM [facility] Work Phone: [phone] 609-809912-16-2024 Miscellaneous Notes* Telephone Encounter - Susana Garcia RPh - 07/06/2024 2:01 PM EST Primary Care Pharmacy Rescheduling Outreach Patient cancelled 06/04 follow up visit and has not yet rescheduled. Call center, please contact patient and reschedule in person, telephone, and virtual visit for Diabetes management within ~4-6 week(s). (Visit length: 30 minutes) Thank you, Susana Garcia, PharmD, BCACP Primary Care Clinical Logistics Center Manager 07/06/2024 2:01 PM documented in this encounterOhiohealth Shelby Hospital12-03-2024 History of Present illness Narrative* Yenni [...] PATIENT PRESENTS WITH AN IMPLANTABLE OR ATTACHED SAFETY RELIEF VALVE TECHNICIAN: No RADIOLOGY DEPARTMENT: General X-ray: Exam(s) Completed: Upper Extremity X- Ray(s): Hand, right PERIPHERAL IV DATA: Not applicable SIGNED BY: RT Marga(Zachariah) June 23, 2024 3:51 PM documented in this encounterOhiohealth Shelby Hospital12-03-2024 NoteHNO ID: [id number] Author: YENNI MOREAU RT(Zachariah) Service: ? Author Type: Motion Pictures Cartoonist Type: Progress Notes Filed: 06/23/2024 16:00 Note [...] PATIENT PRESENTS WITH AN IMPLANTABLE OR ATTACHED SAFETY RELIEF VALVE TECHNICIAN: No RADIOLOGY DEPARTMENT: General X-ray: Exam(s) Completed: Upper Extremity X-Ray(s): Hand, right PERIPHERAL IV DATA: Not applicable SIGNED BY: RT Marga(R) June 23, 2024 3:51 [facility]12-03-2024 NoteHNO ID: [id number] Author: JESE ZHENG, Service: ? Author Type: [...] PAST SURGICAL HISTORY OF (more content not included)...[facility]10-[facility] Telephone encounter Note* Telephone Encounter - Hayde Zhu MA - 05/05/2024 2:37 PM EDT Pt informed Hayde Zhu MA [facility]10-15-2024 Miscellaneous Notes* Telephone Encounter - Hayde [...] she is taking vitamin D3 at least 4524-0884 international unit(s) a day with a meal Jese Zheng DO documented in this encounterOhiohealth Shelby Hospital10-15-2024 Telephone encounter Note * Telephone Encounter [...] a week. Authorizing Provider: LINNEA MARTINEZ PA-C [facility]10-15-2024 Telephone encounter Note* Telephone Encounter - Fabiana Cook LPN - 05/05/2024 11:33 AM EDT Pt. informed. She is taking all meds as prescribed. BS are 133-143 in the AM. Doing well. [facility]10-15-2024 Telephone encounter Note* Telephone Encounter - [...] she is taking vitamin D3 at least 5113-5863 international unit(s) a day with a meal Jese Zheng DO [facility]10-14-2024 Telephone encounter Note* Telephone Encounter - Rivka Ramírez LPN - 05/04/2024 12:02 PM EDT Images from the original note were not included. prior authorization approved Payer: [facility] [phone] Note from payer: Your PA request cannot be processed electronically. For further inquiries please contact the number on the back of the member prescription card. (Message [phone]) Electronic appeal: Not supported View History Medication Being Authorized Blood-Glucose Sensor (FREESTYLE MICHI 3 PLUS SENSOR) ingrid Use to monitor glucose continuously and replace sensor every 15 days Dispense: 6 Each Refills: 3 Start: 05/04/2024 Class: Normal This order has been released to its destination. To be filled at: [id number] [place] [address] - [address] [facility] - [phone] [facility]10-14-[facility] Miscellaneous Notes* Telephone Encounter - Rivka Ramírez LPN - 05/04/2024 12:02 PM EDT Images from the original note were not included. prior authorization approved Payer: [facility] [phone] Note from payer: Your PA request cannot [...] to its destination. To be filled at: [id number] - [place] [address] [address] [facility] - [phone] documented in this encounterOhiohealth Shelby Hospital10-14-2024 Telephone encounter Note * Telephone Encounter - Susana Garcia RPh - 05/04/2024 10:17 AM EDT Patient's request for medication is as follows: Requested Prescriptions Signed Prescriptions Disp Refills Blood-Glucose Sensor (FREESTYLE MICHI 3 PLUS SENSOR) ingrid 6 Each 3 Sig: Use to monitor glucose continuously and replace sensor every 15 days Susana Garcia, PharmD, ROSANNE Primary Care Clinical Logistics Center Manager [facility] Work Phone: [phone] Miscellaneous Notes* Telephone Encounter - Susana Garcia RPh - 05/04/2024 10:17 AM EDT Patient's request for medication is as follows: Requested Prescriptions Signed Prescriptions Disp Refills Blood-Glucose Sensor (FREESTYLE MICHI 3 PLUS SENSOR) ingrid 6 Each 3 Sig: Use to monitor glucose continuously and replace sensor every 15 days Susana Garcia PharmD, ROSANNE Primary Care Clinical Logistics Center Manager documented in this encounterOhiohealth Shelby Hospital10-03-2024 History of Present illness Narrative* Susana [...] capsule 3 Oral Medication Containers (SHARPS CONTAINER) [facility] Use to collect sharps as directed. 1 [...] directed plus sliding scale with meals. Insulin [place], Disposable, (UNIFINE PENTIPS) 31 gauge x 3/16 [...] (BAQSIMI) 3 mg/actuation nasal spray Use 1 [place] in the nose as needed for low [...] Susana Garcia PharmD, BCACP Primary Care Clinical Logistics Center Manager I spent a total of 20 minutes on the date of the service which included preparing to see the patient, japy-jx-aikw patient care, completing clinical documentation, counseling and educating the patient/family/caregiver, and ordering medications, tests, or procedures. documented in this encounterOhiohealth Shelby Hospital10-03-2024 Instructions* Patient Instructions* Susana Garcia RPh [...] once weekly on Sundays documented in this encounterOhiohealth Shelby Hospital10-03-2024 NoteHNO ID: [id number] Author: SUSANA GARCIA RPh Service: ? Author [...] capsule 3 Oral Medication Containers (SHARPS CONTAINER) [facility] Use to collect sharps as directed. 1 [...] directed plus sliding scale with meals. Insulin [place], Disposable, (UNIFINE PENTIPS) 31 gauge x 3/16 [...] (BAQSIMI) 3 mg/actuation nasal spray Use 1 [place] in the nose as needed for low [...] Dx: insulin-dependent DM 49 (more content not included)...[facility]09-25-[facility] Note* Letter - Coordinator, Mammography - 04/15/2024 3:17 PM EDT [address] [address] April 16, 2024 PID: [id number] Lina Isaac [address] [place] [address] Dear Ms. Isaac, We are pleased to [...] report will be kept on [facility] at [facility] as part of your permanent medical record and are available for your continuing care. Thank you for allowing us to help in meeting your health care needs. Sincerely, Dr. Rudd Interpreting Radiologist [facility] (Normal over 40) [facility]09-25-2024 Miscellaneous Notes* Letter - Coordinator, Mammography - 04/15/2024 3:17 PM EDT [address] [address] April 16, 2024 PID: [id number] Lina Isaac [address] [place] [address] Dear Ms. Isaac, We are pleased to [...] report will be kept [facility] as part of your permanent medical record and are available for your continuing care. Thank you for allowing us to help in meeting your health care needs. Sincerely, Dr. Rudd Interpreting Radiologist [facility] (Normal over 40) documented in this encounterOhiohealth Shelby Hospital09-24-2024 History of Present illness Narrative* Trinidad [...] PATIENT PRESENTS WITH AN IMPLANTABLE OR ATTACHED SAFETY RELIEF VALVE TECHNICIAN: No RADIOLOGY DEPARTMENT: Mammography PERIPHERAL IV DATA: Not applicable SIGNED BY: BILLY Craven) April 14, 2024 5:14 PM documented in this encounterOhiohealth Shelby Hospital09-24-2024 NoteHNO ID: [id number] Author: TRINIDAD LEARY RT(R) Service: Radiology Author [...] PATIENT PRESENTS WITH AN IMPLANTABLE OR ATTACHED SAFETY RELIEF VALVE TECHNICIAN: No RADIOLOGY DEPARTMENT: Mammography PERIPHERAL IV DATA: Not applicable SIGNED BY: RT Herber(R) April 14, 2024 5:14 [facility]09-17-2024 Telephone encounter Note* Telephone Encounter - Aspen [...] Almaguer RN April 07, 2024 10:14 AM [facility]09-17-2024 Miscellaneous Notes* Telephone Encounter - Aspen [...] 07, 2024 10:14 AM documented in this encounterOhiohealth Shelby Hospital08-28-2024 NoteHNO ID: [id number] Author: JESE ZHENG, DO Service: ? Author [...] status: Former Current pack (more content not included)...[facility] History of Present illness Narrative* Jese Zheng, [...] arm every 14days flash glucose scanning reader (AilolaSTYLE MICHI 3 READER) Use to monitor blood glucose continuously insulin aspart U-100 (NOVOLOG U-100 INSULIN ASPART) 100 unit/mL Inject 16 units subcutaneously as directed plus sliding scale with meals. Insulin [place], Disposable, (UNIFINE PENTIPS) 31 gauge x 3/16 [...] (BAQSIMI) 3 mg/actuation nasal spray Use 1 [place] in the nose as needed for low [...] agreed with the plan. Jese Zheng DO [address] [place] [address] documented in this encounterOhiohealth [facility] History of Present illness Narrative* Susana Garcia, [facility] - 03/05/2024 1:30 PM EDT Images from [...] capsule 3 Oral Medication Containers (SHARPS CONTAINER) [facility] Use to collect sharps as directed. 1 [...] directed plus sliding scale with meals. Insulin [place], Disposable, (UNIFINE PENTIPS) 31 gauge x 3/16 [...] (BAQSIMI) 3 mg/actuation nasal spray Use 1 [place] in the nose as needed for low [...] Susana Garcia, Alfa, BCACP Primary Care Clinical Logistics Center Manager I spent a total of 25 minutes on the date of the service which included preparing to see the patient, [id number] patient care, completing clinical documentation, and counseling and educating the patient/family/caregiver. documented in this encounterOhiohealth [facility] Hospital08-15-2024 Instructions* Patient Instructions* Susana Garcia RPh [...] = add 8 units documented in this encounterOhiohealth Shelby Hospital08-15-2024 NoteHNO ID: [id number] Author: SUSANA GARCIA RPh Service: ? Author [...] capsule 3 Oral Medication Containers (SHARPS CONTAINER) [facility] Use to collect sharps as directed. 1 [...] directed plus sliding scale with meals. Insulin [place], Disposable, (UNIFINE PENTIPS) 31 gauge x 3/16 [...] (BAQSIMI) 3 mg/actuation nasal spray Use 1 [place] in the nose as needed for low [...] 11 No current facil (more content not included)...[facility] 02-06-2024 Telephone encounter Note* Telephone Encounter - Susana Garcia RP - 02/06/2024 4:04 PM EDT Patient was no show for in office follow up visit. Will send Parso message to patient to reschedule. Susana Garcia, PharmD, BCACP Primary Care Clinical Logistics Center Manager [facility] Work Phone: [phone]) 467-221407-18-2024 Miscellaneous Notes* Telephone Encounter - Susana Garcia RP - 02/06/2024 4:04 PM EDT Patient was no show for in office follow up visit. Will send Parso message to patient to reschedule. Susana Garcia, Alfa, BCACP Primary Care Clinical Logistics Center Manager documented in this encounterOhiohealth Shelby Hospital07-09-2024 Miscellaneous Notes* Telephone Encounter - Susana Garcia RP - 01/28/2024 2:02 PM EDT Called and spoke with patient; addressed in separate phone encounter documented in this encounterOhiohealth [facility] Hospital07-09-2024 Telephone encounter Note * Telephone Encounter - Susana Garcia RP - 01/28/2024 2:02 PM EDT Called and spoke with patient; addressed in separate phone encounter [facility] Work Phone: 1(747) 650-436307-09-2024 Telephone encounter Note* Telephone Encounter - Susana Garcia [facility] - 01/28/2024 2:00 PM EDT Called and [...] Susana Garcia PharmD, ROSANNE Primary Care Clinical Logistics Center Manager [facility] Work Phone: 1(476) 495-583307-09-2024 Miscellaneous Notes* Telephone Encounter - Susana Garcia [...] Susana Garcia PharmD, ROSANNE Primary Care Clinical Logistics Center Manager * Telephone Encounter - Brianna Dye RN [...] not have these effects. Please advise patient. [phone] Thank you. documented in this encounterCleveland [id number] Telephone encounter Note * Telephone Encounter - Brianna Dye RN - 01/28/2024 8:30 AM EDT Patient calling to ehsan Garcia [facility] an update. Pt states she began the [...] not have these effects. Please advise patient. [phone] Thank you. [facility]07-05-2024 Telephone encounter Note* Telephone Encounter - [...] Rosa LPN January 24, 2024 10:56 AM [facility]07-05-2024 Miscellaneous Notes* Telephone Encounter - Pippa [...] 24, 2024 10:56 AM documented in this encounterOhiohealth [facility] Hospital07-05-2024 Miscellaneous Notes* Telephone Encounter - Pippa [...] 24, 2024 10:55 AM documented in this encounterOhiohealth [facility] Hospital07-05-2024 Telephone encounter Note * Telephone Encounter [...] Rosa LPN January 24, 2024 10:55 AM [facility]06-21-2024 Telephone encounter Note* Telephone Encounter - Rivka Ramírez LPN - 01/10/2024 1:13 PM EDT Images from the original note were not included. Electronic PA completed and approved for ozempic. Prior authorization approved Payer: [facility] [phone] Your PA request has been approved. Additional information will be provided in the approval communication. (Message 1141) Approval Details Authorized from January 10, 2024 [...] to its destination. To be filled at: [facility] [address] [place] [address] [address] [facility] - [phone] pt notified via my chart.. [facility]06-21-2024 Miscellaneous Notes* Telephone Encounter - Rivka Ramírez LPN - 01/10/2024 1:13 PM EDT Images from the original note were not included. Electronic PA completed and approved for ozempic. Prior authorization approved Payer: [facility] [phone] Your PA request has been approved. Additional [...] to its destination. To be filled at: [facility] [address] [place] [address] [address] [facility] - [phone] pt notified via my chart.. documented in this encounterOhiohealth [facility] Hospital06-21-2024 Telephone encounter Note * Telephone Encounter - Kiah Pina RN - 01/10/2024 12:34 PM EDT Lucia calling from [facility] pharmacy authorization department. States she is calling to notify provider that pt's Ozempic prescription has been approved. Approval # [id number] [facility]06-21-[facility]24 Miscellaneous Notes* Telephone Encounter - Kiah Pina RN - 01/10/2024 12:34 PM EDT Lucia calling from [facility] pharmacy authorization department. States she is calling to notify provider that pt's Ozempic prescription has been approved. Approval # [id number] documented in this encounterOhiohealth [facility] Hospital06-20-2024 History of Present illness Narrative* Susana Garcia, [facility] - 01/09/2024 3:30 PM EDT Images from [...] capsule 3 Oral Medication Containers (SHARPS CONTAINER) [facility] Use to collect sharps as directed. 1 [...] directed plus sliding scale with meals. Insulin [place], Disposable, (UNIFINE PENTIPS) 31 gauge x 3/16 [...] (BAQSIMI) 3 mg/actuation nasal spray Use 1 [place] in the nose as needed for low [...] Susana Garcia, MonsterD, BCACP Primary Care Clinical Logistics Center Manager I spent a total of 30 minutes on the date of the service which included preparing to see the patient, [id number]-[id number] patient care, completing clinical documentation, counseling and educating the patient/family/caregiver, and ordering medications, tests, or procedures. documented in this encounterOhiohealth [facility] Hospital06-20-2024 Instructions* Patient Instructions* Susana Garcia RPh [...] Metformin 1000 mg BID documented in this encounterOhiohealth [facility] Hospital06-07-2024 Telephone encounter Note * Telephone Encounter - Fabiana Cook LPN - 12/27/2023 11:04 AM EDT Pt. informed via My Chart. [facility]06-07-[facility]24 Miscellaneous Notes* Telephone Encounter - Fabiana Ponce LPN - 12/27/2023 11:04 AM EDT Pt. informed via My Chart. * Telephone Encounter - Jese Zheng DO - 12/27/2023 8:21 AM EDT Please inform patient that carotid artery US only shows mild plaque up to 20- 39%. Recommend recheckin 2 years Jese Zheng DO documented in this encounterOhiohealth [facility] Hospital06-07-2024 Telephone encounter Note * Telephone Encounter - Jese Zheng DO - 12/27/2023 8:21 AM EDT Please inform patient that carotid artery US only shows mild plaque up to 20- 39%. Recommend recheckin 2 years Jese Zheng DO [place] [address]-08-2024 History of Present illness Narrative* Jese Zheng [...] directed plus sliding scale with meals. Insulin [place], Disposable, (UNIFINE PENTIPS) 31 gauge x 3/16 [...] (BAQSIMI) 3 mg/actuation nasal spray Use 1 [place] in the nose as needed for low [...] with the plan. Jese Zheng DO [address] [place] [address] documented in this encounterOhiohealth [facility] Hospital05-06-2024 Telephone encounter Note * Telephone Encounter - Shanelle cMkee MA - 11/25/2023 3:39 PM EDT Patient [...] Please advise. Thank you. Shanelle Mckee MA. [facility]05-06-2024 Miscellaneous Notes* Telephone Encounter - Shanelle [...] you. Shanelle Mckee MA. documented in this encounterOhiohealth [facility] Hospital05-06-2024 Telephone encounter Note * Telephone Encounter [...] Please advise. Thank you. Shanelle Mckee MA. [facility]05-06-2024 Miscellaneous Notes* Telephone Encounter - Shanelle [...] you. Shanelle Mckee MA. documented in this encounterOhiohealth [facility] Hospital04-11-2024 Miscellaneous Notes* Telephone Encounter - Susana Garcia RPh - 10/31/2023 4:36 PM EDT Test message patient sent during today's in office PharmD visit. No further action required at thistime Susana Garcia PharmD Primary Care Clinical Logistics Center Manager documented in this encounterOhiohealth [facility] Hospital04-11-2024 History of Present illness Narrative* Susana [...] tablet 1 Oral Medication Containers (SHARPS CONTAINER) [facility] Use to collect sharps as directed. 1 [...] directed plus sliding scale with meals. Insulin [place], Disposable, (UNIFINE PENTIPS) 31 gauge x 3/16 [...] (BAQSIMI) 3 mg/actuation nasal spray Use 1 [place] in the nose as needed for low [...] 12/26/23 Susana Garcia PharmD Primary Care Clinical Logistics Center Manager I spent a total of 30 minutes on the date of the service which included preparing to see the patient, olxu-[id number] patient care, completing clinical documentation, and counseling and educating the patient/family/caregiver. documented in this encounterOhiohealth [facility] Hospital04-11-2024 Instructions* Patient Instructions* Susana Garcia RPh [...] December 25 at 3:30pm documented in this encounterOhiohealth [facility] Hospital03-22-2024 Miscellaneous Notes* Telephone Encounter - Hayde [...] any nasal sprays at all. Patient uses [facility] for her pharmacy. Please advise documented in this encounterOhiohealth [facility] Hospital03-07-2024 History of Present illness Narrative* Susana Garcia, [facility] - 09/26/2023 3:00 PM EST Images from [...] tablet 1 Oral Medication Containers (SHARPS CONTAINER) [facility] Use to collect sharps as directed. 1 Each 0 Blood-Glucose Sensor (FREESTYLE MICHI 3 SENSOR) ingrid Apply new sensor to back of upper arm every 14days 6 Each 4 flash glucose scanning reader (AilolaSTYLE MICHI 3 READER) Use to monitor blood [...] directed plus sliding scale with meals. Insulin [place], Disposable, (UNIFINE PENTIPS) 31 gauge x 3/16 [...] (BAQSIMI) 3 mg/actuation nasal spray Use 1 [place] in the nose as needed for low [...] 10/31/23 Susana Garcia PharmD Primary Care Clinical Logistics Center Manager I spent a total of 30 minutes on the date of the service which included preparing to see the patient, bevw-xl-nyge patient care, completing clinical documentation, counseling and educating the patient/family/caregiver, and ordering medications, tests, or procedures. documented in this encounterOhiohealth [facility] Hospital03-07-2024 Instructions* Patient Instructions* Susana Garcia RPh - 09/26/2023 3:00 PM EST Increase Tresiba to 100 units once daily Continue all other medications: Metformin 1000 mg BID Trulicity 4.5 mg once weekly Novolog 16 units + sliding scale with meals 200-230 = add 2 units 230-260 = add 4 units 260-300 = add 6 units >300 = add 8 units documented in this encounterOhiohealth [facility] Hospital03-02-2024 Miscellaneous Notes* Telephone Encounter - Fabiana Cook LPN - 09/21/2023 9:24 AM EST Patient informed via My Chart. * Telephone Encounter - Jese Zheng DO - 09/21/2023 8:12 AM EST Please inform patient that her viral testing is negative Jese Zheng DO documented in this encounterOhiohealth [facility] Hospital03-02-2024 History of Present illness Narrative* Jese [...] directed plus sliding scale with meals. Insulin [place], Disposable, (UNIFINE PENTIPS) 31 gauge x 3/16 [...] (BAQSIMI) 3 mg/actuation nasal spray Use 1 [place] in the nose as needed for low [...] plan. See patient instructions. Jese Zheng DO [address] [place] [address] documented in this encounterOhiohealth [facility] Hospital02-17-2024 Miscellaneous Notes* Telephone Encounter - Mariana [...] meal Jese Zheng DO documented in this encounterOhiohealth [facility] Hospital02-06-2024 Miscellaneous Notes* Telephone Encounter - Antonette [...] you. Antonette Kurtz LPN. documented in this encounterOhiohealth [facility] Hospital02-06-2024 History of Present illness Narrative* Jese [...] directed plus sliding scale with meals. Insulin [place], Disposable, (UNIFINE PENTIPS) 31 gauge x 3/16 [...] (BAQSIMI) 3 mg/actuation nasal spray Use 1 [place] in the nose as needed for low [...] with the plan. Jese Zheng DO [address] [place] [address] documented in this encounterOhiohealth [facility] Hospital02-01-2024 History of Present illness Narrative* Susana Garcia, [facility] - 08/22/2023 3:00 PM EST Primary Care [...] Dispense Refill Oral Medication Containers (SHARPS CONTAINER) [facility] Use to collect sharps as directed. 1 Each 0 Blood-Glucose Sensor (FREESTYLE MICHI 3 SENSOR) ingrid Apply new sensor to back of upper arm every 14days 6 Each 4 flash glucose scanning reader (AilolaSTYLE MICHI 3 READER) Use to monitor blood [...] directed plus sliding scale with meals. Insulin [place], Disposable, (UNIFINE PENTIPS) 31 gauge x 3/16 [...] (BAQSIMI) 3 mg/actuation nasal spray Use 1 [place] in the nose as needed for low [...] Michi report now that patient connected with [employer] allowing for continuous monitoring. - Continue current medications - Statin prescribed - atorvastatin - Blood glucose monitoring on a continuous glucose monitoring schedule. Assisted with set up of [employer] birdie and placement of first sensor. Sensor activated in office. - Counseled on healthy diet and regular exercise - Follow up in 1 month, sooner should any other issues arise. Follow Up: Next PCP visit: 08/27/23 Next PharmD visit: 09/26/23 Susana Garcia PharmD Primary Care Clinical Logistics Center Manager The majority of the pharmacy visit (> 50%) was spent counseling and/or coordinating care for thepatient. interaction: face to face time was 35 minutes. documented in this encounterOhiohealth [facility] Hospital02-01-2024 Instructions* Patient Instructions* Susana Garcia RPh - 08/22/2023 3:00 PM EST Continue current medications: Metformin 1000 mg BID Trulicity 4.5 mg once weekly Tresiba 90 units once daily Novolog 16 units + sliding scale with meals 200-230 = add 2 units 230-260 = add 4 units 260-300 = add 6 units >300 = add 8 units documented in this encounterOhiohealth [facility] Hospital12-07-2023 History of Present illness Narrative* Susana [...] funny if under 87 mg/dl Set up [employer] birdie during visit for use with next [...] Plus sliding scale 15 mL 5 Insulin [place], Disposable, (UNIFINE PENTIPS) 31 gauge x 3/16 [...] tablet 3 Oral Medication Containers (SHARPS CONTAINER) [facility] Use to collect sharps as directed. 1 [...] (BAQSIMI) 3 mg/actuation nasal spray Use 1 [place] in the nose as needed for low [...] doses. Rx coverage: Payor: MULTIPLAN / Plan: [employer] / Product Type: PPO [...] with next sensor. May consider upgrade to [employer] 3 at next visit - Counseled on healthy diet and regular exercise - Follow up in 1 month, sooner should any other issues arise. Follow Up: Next PCP visit: 08/27/23 Next PharmD visit: 07/25/23 at 3pm Ssuana Garcia PharmD Primary Care Clinical Logistics Center Manager The majority of the pharmacy visit (> 50%) was spent counseling and/or coordinating care for thepatient. interaction: face to face time was 33 minutes. documented in this encounterOhiohealth [facility] Hospital12-07-2023 Instructions* Patient Instructions* Susana Garcia RPh [...] July 25 at 3PM documented in this encounterOhiohealth [facility] Hospital11-28-2023 Miscellaneous Notes* Telephone Encounter - Susana Garcia RPh - 06/18/2023 10:39 AM EST Received PFA contact information from per patient request for assistance with choosing prescription drug plan Sent information via Parso message to patient Susana Garcia, Alfa Primary Care Clinical Logistics Center Manager documented in this encounterOhiohealth [facility] Hospital11-16-2023 History of Present illness Narrative* Susana [...] about coverage options, but the person from [facility] only recommended she log on to the [...] Plus sliding scale 15 mL 5 Insulin [place], Disposable, (UNIFINE PENTIPS) 31 gauge x 3/16 [...] 90 tablet 3 flash glucose scanning reader (Ajungo MICHI 14 DAY READER) Use to test [...] tablet 3 Oral Medication Containers (SHARPS CONTAINER) [facility] Use to collect sharps as directed. 1 [...] (BAQSIMI) 3 mg/actuation nasal spray Use 1 [place] in the nose as needed for low [...] 3PM Susana Garcia PharmD Primary Care Clinical Logistics Center Manager The majority of the pharmacy visit (> 50%) was spent counseling and/or coordinating care for thepatient. interaction: face to face time was 30 minutes. documented in this encounterOhiohealth [facility] Hospital11-16-2023 Instructions* Patient Instructions* Susana Garcia RPh - 06/06/2023 3:00 PM EST Images from the original note were not included. Next appointment: June 27 at 3PM With your next sensor, set up with phone birdie Create an account in [employer] birdei and sync with sensor Adjust your insulin doses to the following: Tresiba 82 units once daily Novolog 16 units plus sliding scale with meals 200-230 = add 2 units 230-260 = add 4 units 260-300 = add 6 units >300 = add 8 units documented in this encounterOhiohealth [facility] Hospital11-09-2023 Miscellaneous Notes* Telephone Encounter - Corrine Louise APRN.CARLITOS - 05/30/2023 7:22 AM EST Noted. Thank you. Corrine Louise APRN.MOTOR BUS DRIVER * Telephone Encounter - Deya Gross LPN - 05/29/2023 12:00 PM EST [...] insulin for $35/month. Called and spoke with [facility] to provide coupon information. States coupon is not activated but will call company to inquire if patient needs to activate card prior to use. Called patient to discuss; unable to reach. Will attempt outreach again later and will check back with pharmacy later today. Susana Garcia PharmD Primary Care Clinical Logistics Center Manager * Telephone Encounter - Kiah Pina RN - 05/29/2023 10:51 AM EST Pt calling in as she just saw Dr. Zheng on 05/[address] Zheng prescribed a new med Toujeo. Ptstates she went to pick it up at the pharmacy and they wanted $500 for it which she cannot afford. Per Kiel Garcia pharmacy visit note of 05/09, pt has [...] Garcia pharmacist for recommendations. documented in this encounterOhiohealth [facility] Hospital11-07-2023 Miscellaneous Notes* Telephone Encounter - Shanelle Mckee MA - 05/28/2023 10:31 AM EST Pt notified and verbalized understanding. Shanelle Mckee MA * Telephone Encounter - Jese Zheng DO - 05/28/2023 8:44 AM EST Please inform patient that her leg US shows no signs of a blood clot /Jese Zheng DO documented in this encounterOhiohealth [facility] Hospital11-06-2023 History of Present illness Narrative* Jese [...] day before meals. Plus sliding scale Insulin [place], Disposable, (UNIFINE PENTIPS) 31 gauge x 3/16 [...] once daily. Oral Medication Containers (SHARPS CONTAINER) [facility] Use to collect sharps as directed. metFORMIN (GLUCOPHAGE) 1,000 mg tablet Take 1 tablet by mouth twice daily. TRULICITY 4.5 mg/0.5 mL pen injector Inject 4.5 mg subcutaneously one time a week. diclofenac (VOLTAREN ARTHRITIS PAIN) 1 % topical gel Apply 2 g to affected area four times daily. glucagon (BAQSIMI) 3 mg/actuation nasal spray Use 1 [place] in the nose as needed for low [...] vaccine - ICD9: V04.89, ICD10: Z23 - Planet Daily-Endorphin COVID-19 VACCINE (2022- SEASON) AGE 12+ YR [...] agreed with the plan. Jese Zheng DO [address] [place] [address] documented in this encounterOhiohealth Shelby Hospital2023 Miscellaneous Notes* Telephone Encounter - Maye [...] and patient discussed patient reaching out to [facility] to see about any assistance she can provide patient with in regards to marketplace prescription insurance plan. Patient reports that she will reach out to [facility] and see if she can offer patient any guidance on marketplace prescription options. Patient has Sw direct number for her to let this Sw know what she finds out from [facility]. documented in this encounterOhiohealth [facility] Hospital09-16-2023 Miscellaneous Notes* Telephone Encounter - Mitchel [...] may stop augmentin. Paxlovid sent to [facility]. Last lipitor dose was yesterday morning. She will hold lipitor while taking paxlovid plus 3 more days. Component Latest Ref Rng & Units 02/19/2023 eGFR >=60 mL/min/1.73m 110 documented in this encounterOhiohealth [facility] Hospital09-15-2023 History of Present illness Narrative* Mitchel [...] once daily. Oral Medication Containers (SHARPS CONTAINER) [facility] Use to collect sharps as directed. metFORMIN (GLUCOPHAGE) 1,000 mg tablet Take 1 tablet by mouth twice daily. TRULICITY 4.5 mg/0.5 mL pen injector Inject 4.5 mg subcutaneously one time a week. diclofenac (VOLTAREN ARTHRITIS PAIN) 1 % topical gel Apply 2 g to affected area four times daily. glucagon (BAQSIMI) 3 mg/actuation nasal spray Use 1 [place] in the nose as needed for low [...] daily as instructed. Dx: insulin-dependent DM Insulin [place], Disposable, (UNIFINE PENTIPS) 31 gauge x 3/16 [...] ROUTINE Mitchel Carney MD documented in this encounterOhiohealth [facility] Hospital09-12-2023 Miscellaneous Notes* Telephone Encounter - Faye De Leon Ma - 04/02/2023 10:31 AM EDT Last office visit: 02/19/23 F/u scheduled: 05/27/23 Faye De Leon Ma documented in this encounterOhiohealth [facility] Hospital09-12-2023 Miscellaneous Notes* Telephone Encounter - Faye De Leon Ma - 04/02/2023 10:30 AM EDT Last office visit: 02/19/23 F/u scheduled: 05/27/23 Faye De Leon Ma documented in this encounterOhiohealth [facility] Hospital09-12-2023 Miscellaneous Notes* Telephone Encounter - Faye De Leon Ma - 04/02/2023 10:28 AM EDT Last office visit: 02/19/23 F/u scheduled: 05/27/23 Faye De Leon Ma documented in this encounterOhiohealth [facility] Hospital09-05-2023 Miscellaneous Notes* Telephone Encounter - Oz Noyola LPN - 03/26/2023 10:38 AM EDT Patient phones requesting refills as follows: Requested Prescriptions Pending Prescriptions Disp Refills aspirin, enteric coated (ASPIRIN, ENTERIC COATED) 81 mg EC tablet 90 tablet 3 Sig: Take 1 tablet by mouth once daily. SHIRA 02/19/23 NOV 05/27/23 Please review and advise. Oz Noyola LPN documented in this encounterOhiohealth [facility] Hospital08-24-2023 Miscellaneous Notes* Telephone Encounter - Scarlett [...] with medication adjustments or needs opinion by Roof Tiler. She needs to be consistent with her [...] AM Jese Zheng DO documented in this encounterOhiohealth [facility] Hospital08-08-2023 Miscellaneous Notes* Telephone Encounter - Antonette uKrtz LPN - 02/26/2023 4:38 PM EDT Phoned patient and went over results, notes from Dr Zheng with understanding. * Telephone Encounter - Jese Zheng DO - 02/26/2023 4:32 PM EDT Please call patient and let her know that her CXR shows some mild prominence of areas of her lungs,awaiting CT chest results at this time Jese Zheng DO documented in this encounterOhiohealth [facility] Hospital08-08-2023 History of Present illness Narrative* Chichi [...] 26, 2023 8:56 AM documented in this encounterOhiohealth [facility] Hospital08-07-2023 Miscellaneous Notes* Telephone Encounter - Kiah Aldridge LPN - 02/25/2023 9:13 AM EDT Patient phones requesting refills as follows: Requested Prescriptions Pending Prescriptions Disp Refills ibuprofen (MOTRIN) 800 mg tablet 60 tablet 1 Sig: Take 1 tablet by mouth every 8 hours as needed for Pain. Take with food. SHIRA-02/19/23 Labs-02/19/23May-05/27/23 Please review and advise. Kiah Aldridge LPN documented in this encounterOhiohealth Shelby Hospital08-07-2023 Miscellaneous Notes* Telephone Encounter - Kiah Aldridge LPN - 02/25/2023 9:12 AM EDT Patient phones requesting refills as follows: Requested Prescriptions Pending Prescriptions Disp Refills mupirocin (BACTROBAN) 2 % ointment 66 g 2 Sig: Apply to affected area every 12 hours as needed (rash, skin lesions). [facility]-02/19/23 Labs-02/19/23May-05/27/23 Please review and advise. Kiah Aldridge LPN documented in this encounterOhiohealth Shelby Hospital08-07-2023 Miscellaneous Notes* Telephone Encounter - Kiah Aldridge LPN - 02/25/2023 9:10 AM EDT Patient phones requesting refills as follows: Requested Prescriptions Pending Prescriptions Disp Refills gabapentin (NEURONTIN) 100 mg capsule 60 capsule 5 Sig: Take 1-2 capsules by mouth daily at bedtime for 30 days. For foot pain [facility]-02/19/23 Labs-02/19/23May-05/27/23 Please review and advise. Kiah Aldridge LPN documented in this [facility]08-02-2023 History of Present illness Narrative* Jese Zheng, [...] once daily. Oral Medication Containers (SHARPS CONTAINER) [facility] Use to collect sharps as directed. metFORMIN [...] (BAQSIMI) 3 mg/actuation nasal spray Use 1 [place] in the nose as needed for low [...] daily as instructed. Dx: insulin-dependent DM Insulin [place], Disposable, (UNIFINE PENTIPS) 31 gauge x 3/16 Use as directed 4 times daily with insulin flash glucose scanning reader (FREESTYLE MICHI 14 DAY READER) [facility] Use to test blood sugar as directed. [...] with the plan. Jese Zheng DO [address] [place] [address] documented in this encounterOhiohealth Shelby Hospital08-01-2023 History of Present illness Narrative* Concepcion [...] 19, 2023 1:49 PM documented in this encounterOhiohealth Shelby Hospital07-14-2023 Miscellaneous Notes* Telephone Encounter - Gopal [...] Provider: JESE ZHENG Ordering User: GOPAL FLAHERTY APRN.MOTOR BUS DRIVER * Telephone Encounter - Pippa De La Rosa LPN - 02/01/2023 8:07 AM EDT Shira--11/08/22 Nov--01/20/23 Last refill--novolog--10/30/22 15 ml with 2 refills Calcium--08/30/22 30 with 3 refills Last labs--11/08/22 documented in this encounterOhiohealth Shelby Hospital07-14-2023 Miscellaneous Notes* Telephone Encounter - Scarlett Chisholm Ma - 02/01/2023 11:37 AM EDT Received fax from [employer] stating sensor are approved till 04/21/23 Faxed [...] company. Scarlett Chisholm MA documented in this encounterOhiohealth Shelby Hospital06-15-2023 Miscellaneous Notes* Telephone Encounter - Luciano Gomez MD - 01/03/2023 3:58 PM EDT OK to refill as ordered Luciano Gomez MD documented in this encounterOhiohealth Shelby Hospital06-15-2023 History of Present illness Narrative* KAROLINA Flores - 01/03/2023 10:19 AM EDT Behavioral Health Social Work Progress Note Patient identified for [facility] from: PCP Reason for referral: Resources Behavioral Health Resources: Psychology - talk therapy [facility] encounter type: MyChart Message Attempts to Outreach: 3 attempts Referral made: Psychology - Internal, Psychology - External Psychology-Internal referral type: Therapy Psychology-External referral type: Therapy Reason for external referral: Wait times at [facility] too long, Patient choice Final Disposition: Resources given Patient Discharged?: Yes therapist sent patient [employer] follow up message offering assistance with linkage to behavioral health services. KAROLINA Flores-S January 03, 2023 documented in this encounterOhiohealth Shelby Hospital06-08-2023 History of Present illness Narrative* Shayan Martinez [facility] - 12/27/2022 10:00 AM EDT Primary Care [...] Trulicity. Also treated for UTI 11/08: Saw MOTOR BUS DRIVER for abdominal pain 11/15: Last PharmD visit; basal insulin increased HPI: States her brother was in a severe accident in mid-November, has been driving back and forth to [place] most days. 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 Feels very [...] now. Is hoping brother can get into long-term or rehab facility. Denies SI/HI. Not checking [...] reports missed doses of all meds. Pharmacy: [facility] [address] [place] [address] - [address] - [phone] Rx coverage: Payor: [facility] MEDICAID / Plan: [facility] MEDICAID / Product Type: Medicaid / Medications [...] mouth twice daily. flash glucose scanning reader (AilolaSTYLE MICHI 14 DAY READER) [facility] Use to test blood sugar as directed. flash glucose sensor (FREESTYLE MICHI 14 DAY SENSOR) kit Apply sensor to back of arm to check bloodsugars as directed. Change sensor every 2 weeks and rotate arms. gabapentin (NEURONTIN) 100 mg capsule Take 1-2 capsules by mouth daily at bedtime for 30 days. For foot pain glucagon (BAQSIMI) 3 mg/actuation nasal spray Use 1 [place] in the nose as needed for low [...] Inject 90 Units subcutaneously every morning. Insulin [place], Disposable, (UNIFINE PENTIPS) 31 gauge x 3/16 Use as directed 4 times daily with insulin lisinopril (ZESTRIL) 10 mg tablet Take 1 tablet by mouth once daily. metFORMIN (GLUCOPHAGE) 1,000 mg tablet Take 1 tablet by mouth twice daily. mupirocin (BACTROBAN) 2 % ointment Apply to affected area every 12 hours as needed (rash, skin lesions). Oral Medication Containers (SHARPS CONTAINER) [facility] Use to collect sharps as directed. polyethylene [...] moved to an assisted living facility or long-term. She is not confident in ability to take meds until some of her stressors improve Advised patient to go to bowling or skating front desk clerk to get appt scheduled with provider to discuss depression. PharmD will reach out to PCP as FYI. Referral to addiction social worker placed to provide resources for counseling services [...] time was 40 minutes. documented in this encounterOhiohealth Shelby Hospital06-08-2023 Miscellaneous Notes* Addendum Note - Shayan Martinez RPh - 12/27/2022 10:00 AM EDTAddended by: SHAYAN MARTINEZ on: 12/27/2022 12:44 PM Modules accepted: Orders documented in this encounterOhiohealth Shelby Hospital05-11-2023 History of Present illness Narrative* Nathalie [...] TIME: PATIENT DISCHARGED TO: Ambulatory patient, left [place] department area. A Diagnostic radioactive procedure has taken place, with no further precautions necessary other than routine body substance precautions. More information regarding radiation safety can be found usingthis link: [email or web address] SIGNATURE: RT Anand(Zachariah) PATIENT NAME: Lina Isaac DATE: November 29, 2022 TIME: 1:03 PM PAGER/CONTACT #: documented in this encounterOhiohealth Shelby Hospital05-10-2023 Miscellaneous Notes* Telephone Encounter - Fabiana [...] AM EDT Called number patient had provided [phone] and spoke with Edilia Leos From [employer]. Edilia states that appeal can be filed for this. Edilia states put appeal recommended and that service was not performed. Insurance needs to know how this test would change patient's treatment plan, office notes and chest x ray results, and why was chest xray done in first place. Edilia states to fax info rmation to [phone] which is [facility] department. Chest Xray, office notes, reason why testing was ordered faxed as requested. Mariana Joy RN * Telephone Encounter - Dyea Gross LPN - 11/22/2022 4:50 PM EDT Pt called back and she was given a number to call her insurance [phone] which she did and theytold her the doctors office needs to call and they will let them know what is needed regarding the CT. Please advise pt when this has been done. Deya Gross LPN * Telephone Encounter - Hayde Zhu - 11/21/2022 4:50 PM EDT Insurance reports patient will need to contact [facility] [phone] to find out the exact reason why [...] Chest. Patient states that she had called [facility] and was told that: Insurance does not know what testing provider done prior to warrant CT scan. Insurance states that they do not know what CT scan is for. Patient asking if provider can take a look at this and figure out why insurance is not covering this? Please review and advise, Mariana Joy RN documented in this encounterOhiohealth Shelby Hospital04-27-2023 History of Present illness Narrative* Shayan Martinez, [facility] - 11/15/2022 11:30 AM EDT Images from [...] on Macrobid for suspected UTI. At last MOTOR BUS DRIVER appt, patient was seen for abdominal pain. Subjective: HPI: States sugars are doing much better since rotating injection sites. Feels overall she is feeling really good. Says she is still having a chronic belly ache, is having that looked into. Will be havingsome tests done at [facility] in a couple of weeks. Other than [...] present Adherence: denies missed doses Pharmacy[facility] [place] [facility] Affordability: no issues Diabetes supplies: [employer] System: none, lost her pill box ACTIVE [...] mouth once daily. taking blood sugar diagnostic (Ajungo PRECISION JEREMIAS STRIPS) test strip Use to [...] scanning reader (FREESTYLE MICHI 14 DAY READER) [facility] Use to test blood sugar as directed. [...] (BAQSIMI) 3 mg/actuation nasal spray Use 1 [place] in the nose as needed for low [...] 80 Units subcutaneously every morning. taking Insulin [place], Disposable, (UNIFINE PENTIPS) 31 gauge x 3/16 [...] PRN use Oral Medication Containers (SHARPS CONTAINER) [facility] Use to collect sharps as directed. peg [...] elevated; no SOB, vision changes, palpitations, swelling,severe GIRER; does have occasional CP with deep breathing [...] verbalized understanding of instructions. Shayan Martinez PharmD, [facility] Primary Care Clinical Pharmacist The majority of the pharmacy visit (> 50%) was spent counseling and/or coordinating care for thepatient. interaction: face to face time was 30 minutes. documented in this encounterOhiohealth Shelby Hospital04-27-2023 Instructions* Patient Instructions* Shayan Martinez RPh - 11/15/2022 11:30 AM EDT Please start scanning your sensor more frequently. Scan when you wake up, several times during the middle of the day, and at bedtime. INCREASE Tresiba to 90 units daily. If you start having low blood sugars, CALL the pharmacist to help with insulin dose reduction. documented in this encounterOhiohealth Shelby Hospital04-20-2023 History of Present illness Narrative* Concepcion [...] 08, 2022 2:34 PM documented in this encounterOhiohealth Shelby Hospital04-20-2023 History of Present illness Narrative* Keli [...] 08, 2022 2:39 PM documented in this encounterOhiohealth Shelby Hospital04-20-2023 Instructions* Patient Instructions* Ankita Green APRN.CNP - 11/08/2022 1:24 PM EDT Schedule your ultrasound and hida scan. Have your labs drawn. Have your chest xray done. documented in this encounterOhiohealth Shelby Hospital04-20-2023 History of Present illness Narrative* Ankita [...] time only. Oral Medication Containers (SHARPS CONTAINER) [facility] Use to collect sharps as directed. Calcium [...] (BAQSIMI) 3 mg/actuation nasal spray Use 1 [place] in the nose as needed for low [...] daily as instructed. Dx: insulin-dependent DM Insulin [place], Disposable, (UNIFINE PENTIPS) 31 gauge x 3/16 Use as directed 4 times daily with insulin flash glucose scanning reader (AilolaSTYLE MICHI 14 DAY READER) [facility] Use to test blood sugar as directed. [...] pain - ICD9: 789.01, ICD10: R10.11 - Rice low residue diet - US ABD RIGHT [...] D-DIMER Ankita Green APRN.CARLITOS documented in this encounterOhiohealth Shelby Hospital03-30-2023 Miscellaneous Notes* Telephone Encounter - Marci Koch RN - 10/18/2022 11:58 AM EDT Left voicemail for Lina to please call and reschedule her visit with Dr. Ramirez to next week. Dr. Ramirez was called away for an emergency surgery. Marci Koch RN documented in this encounterOhiohealth Shelby Hospital03-30-2023 Instructions* Patient Instructions* Radha Baron APRN.CARLITOS [...] Discussed expected course of illness Radha Baron APRN.[facility] PATIENT INFO BLADDER INFECTION [...] actually have an infection. documented in this encounterOhiohealth Shelby Hospital03-30-2023 History of Present illness Narrative* Radha [...] time only. Oral Medication Containers (SHARPS CONTAINER) [facility] Use to collect sharps as directed. Calcium [...] (BAQSIMI) 3 mg/actuation nasal spray Use 1 [place] in the nose as needed for low [...] For wheezing/shortness of breath. blood sugar diagnostic ([employer] PRECISION JEREMIAS STRIPS) test strip Use to test blood sugar up to twice daily as instructed. Dx: insulin-dependent DM Insulin [place], Disposable, (UNIFINE PENTIPS) 31 gauge x 3/16 Use as directed 4 times daily with insulin flash glucose scanning reader (FREESTYLE MICHI 14 DAY READER) [facility] Use to test blood sugar as directed. [...] illness Radha Baron APRN.CARLITOS documented in this encounterOhiohealth Shelby Hospital03-30-2023 History of Present illness Narrative* Shayan Martinez, [facility] - 10/18/2022 9:00 AM EDT Images from [...] changes so dietary modifications encouraged. At last MOTOR BUS DRIVER appt, patient seen for influenza concerns. At [...] since 10/05 due to lows Pharmacy[facility] [place] ([facility]) [facility] Affordability: no issues Diabetes supplies: [employer] System: none, lost her pill box [...] by mouth once daily. blood sugar diagnostic (AilolaSTYLE PRECISION JEREMIAS STRIPS) test strip Use to [...] mouth twice daily. flash glucose scanning reader (AilolaSTYLE MICHI 14 DAY READER) [facility] Use to test blood sugar as directed. flash glucose sensor (FREESTYLE MICHI 14 DAY SENSOR) kit Apply sensor to back of arm to check bloodsugars as directed. Change sensor every 2 weeks and rotate arms. gabapentin (NEURONTIN) 100 mg capsule Take 1-2 capsules by mouth daily at bedtime for 30 days. For foot pain glucagon (BAQSIMI) 3 mg/actuation nasal spray Use 1 [place] in the nose as needed for low [...] Inject 116 Units subcutaneously every morning. Insulin [place], Disposable, (UNIFINE PENTIPS) 31 gauge x 3/16 Use as directed 4 times daily with insulin lisinopril (ZESTRIL) 10 mg tablet Take 1 tablet by mouth once daily. metFORMIN (GLUCOPHAGE) 1,000 mg tablet Take 1 tablet by mouth twice daily. mupirocin (BACTROBAN) 2 % ointment Apply to affected area every 12 hours as needed (rash, skin lesions). Oral Medication Containers (SHARPS CONTAINER) [facility] Use to collect sharps as directed. peg [...] verbalized understanding of instructions. Shayan Martinez PharmD, [facility] Primary Care Clinical Pharmacist The majority of the pharmacy visit (> 50%) was spent counseling and/or coordinating care for thepatient. interaction: face to face time was 15 minutes. * Shayan Martinez RPh - 10/18/2022 9:00 AM EDT [facility], spoke with pharmacist who said Trulicity was in stock and would get med filled today. [facility]Bean called patient back and informed her to bulk picker medication later today or this week. Shayan Martinez PharmD, [facility] Primary Care Clinical Pharmacist documented in this encounterOhiohealth Shelby Hospital03-30-2023 Instructions* Patient Instructions* Shayan Martinez RPh - 10/18/2022 9:00 AM EDT RESTART your insulins. Take Tresiba 80 units once daily. Take Novolog 10 units + sliding scale up to three times daily with meals. Scan your CGM reader more frequently. Go to urgent care now for your back pain. documented in this encounterOhiohealth Shelby Hospital03-13-2023 Miscellaneous Notes* Telephone Encounter - Fabiana [...] you. Fabiana Cook LPN documented in this encounterOhiohealth Shelby Hospital03-08-2023 Miscellaneous Notes* Telephone Encounter - Pippa De La Rosa LPN - 09/26/2022 1:23 PM EST Shira--07/24/22 Nov--11/05/22 Last refill--09/29/21 90 with 3 refills Last labs--07/24/22 documented in this encounterOhiohealth Shelby Hospital02-27-2023 NoteHNO ID: [id number] Author: Olya Garcia RN Service: Nursing Author Type: Registered Nurse Type: Nursing Progress Note Filed: 09/17/2022 8:36 AM Note Text: Pre op blood sugar 326. Dr. Salmon aware. 4 units regular insulin ordered.[facility] [id number] Miscellaneous Notes* Telephone Encounter - Shayan Martinez RPh - 09/13/2022 10:03 AM EST During PharmD visit today, patient stated she needed a new sharps container. Order pended for PCP'ssignature. Requested Prescriptions Pending Prescriptions Disp Refills Oral Medication Containers (SHARPS CONTAINER) misc 1 Each 0 Sig: Use to collect sharps as directed. Shayan Martinez RPh documented in this encounterOhiohealth Shelby Hospital02-23-2023 History of Present illness Narrative* Shayan [...] changes so dietary modifications encouraged. At last MOTOR BUS DRIVER appt, patient seen for influenza concerns. At last PCP appt, gabapentin was started for neuropathy. Subjective: HPI: States she has 6 doctor's appt today. Forgot [employer] Michi. States sugars are reasonable but tend [...] present Adherence: denies missed doses Pharmacy[facility] Affordability: no issues Diabetes supplies: [employer] System: none, lost her pill box ACTIVE [...] by mouth once daily. blood sugar diagnostic (Ajungo PRECISION JEREMIAS STRIPS) test strip Use to [...] mouth twice daily. flash glucose scanning reader (Ajungo MICHI 14 DAY READER) misc Use to [...] (BAQSIMI) 3 mg/actuation nasal spray Use 1 [place] in the nose as needed for low [...] Inject 102 Units subcutaneously every morning. Insulin [place], Disposable, (UNIFINE PENTIPS) 31 gauge x 3/16 [...] verbalized understanding of instructions. Shayan Martinez PharmD, [facility] Primary Care Clinical Pharmacist The majority of the pharmacy visit (> 50%) was spent counseling and/or coordinating care for thepatient. interaction: face to face time was 40 minutes. documented in this encounterOhiohealth Shelby Hospital02-23-2023 Instructions* Patient Instructions* Shayan Martinez RPh [...] CONTINUE all other medication. documented in this encounterOhiohealth Shelby Hospital02-17-2023 Miscellaneous Notes* Letter - Mammography Coordinator - 09/07/2022 1:18 PM EST September 10, 2022 PID: [id number] Lina Isaac [address] [place] [address] Dear Ms. Isaac, We are pleased to [...] report will be [facility] at [facility] as part of your permanent medical record and are available for your continuing care. Thank you for allowing us to help in meeting your health care needs. Sincerely, Dr. Hinojosa Interpreting Radiologist [facility] (Normal over 40) documented in this encounterOhiohealth Shelby Hospital02-16-2023 History of Present illness Narrative* Emma [...] 06, 2022 11:03 AM documented in this [facility]02-09-2023 Miscellaneous Notes* Telephone Encounter - Kiah Aldridge [...] advise. Kiah Aldridge LPN documented in this [facility]02-08-2023 Miscellaneous Notes* Telephone Encounter - Digna Roberts RN - 08/29/2022 11:16 AM EST Pt called in and was asking to have her work excuses printed from when she had Covid last year. Printed letters and brought to medical records for Pt. documented in this encounterOhiohealth Shelby Hospital01-16-2023 Miscellaneous Notes* Telephone Encounter - Pippa De La Rosa LPN - 08/06/2022 11:02 AM EST Shira--07/24/22 Nov--11/05/22 Last refill--03/22/22 6 each with 11 refills Last labs--07/24/22 documented in this encounterOhiohealth Shelby Hospital01-16-2023 Miscellaneous Notes* Telephone Encounter - Pippa De La Rosa LPN - 08/06/2022 10:12 AM EST Shira--07/24/22 Nov--11/05/22 Last refill--10/25/21 60 with 3 Last labs--07/24/22 documented in this encounterOhiohealth Shelby Hospital01-06-2023 Miscellaneous Notes* Telephone Encounter - Faye De Leon Ma - 07/27/2022 1:54 PM EST Last office visit: 07/24/22 F/u scheduled: 11/05/22 Faye De Leon Ma documented in this encounterOhiohealth Shelby Hospital01-06-2023 Miscellaneous Notes* Telephone Encounter - Faye De Leon Ma - 07/27/2022 1:53 PM EST Last office visit: 07/24/22 F/u scheduled: 11/05/22 Faye De Leon Ma documented in this encounterOhiohealth Shelby Hospital01-03-2023 History of Present illness Narrative* Jese [...] (BAQSIMI) 3 mg/actuation nasal spray Use 1 [place] in the nose as needed for low [...] daily as instructed. Dx: insulin-dependent DM Insulin [place], Disposable, (UNIFINE PENTIPS) 31 gauge x 3/16 Use as directed 4 times daily with insulin flash glucose scanning reader (FREESTYLE MICHI 14 DAY READER) [facility] Use to test blood sugar as directed. [...] gabapentin at bedtime for foot pain, sees structural fitter regularly - GABAPENTIN 100 MG CAPSULE 7. [...] agreed with the plan. Jese Zheng DO [address] [place] [address] documented in this encounterOhiohealth Shelby Hospital12-19-2022 Miscellaneous Notes* Telephone Encounter - Fabiana [...] you. Fabiana Cook LPN documented in this encounterOhiohealth Shelby Hospital12-09-2022 Miscellaneous Notes* Telephone Encounter - Fabiana [...] you. Fabiana Cook LPN documented in this encounterOhiohealth Shelby Hospital12-05-2022 History of Present illness Narrative* Ankita Green APRN.MOTOR BUS DRIVER - 06/25/2022 10:40 AM EST VIRTUAL VISIT PROGRESS NOTE This is a virtual visit using Parso video visit. It required patient-provider interaction for [...] (BAQSIMI) 3 mg/actuation nasal spray Use 1 [place] in the nose as needed for low [...] Units subcutaneously every morning. flash glucose sensor (Ajungo MICHI 14 DAY SENSOR) kit Apply sensor [...] For wheezing/shortness of breath. blood sugar diagnostic (AilolaSTYLE PRECISION JEREMIAS STRIPS) test strip Use to test blood sugar up to twice daily as instructed. Dx: insulin-dependent DM Insulin [place], Disposable, (UNIFINE PENTIPS) 31 gauge x 3/16 Use as directed 4 times daily with insulin flash glucose scanning reader (FREESTYLE MICHI 14 DAY READER) [facility] Use to test blood sugar as directed. [...] 06/25/2022 by Ankita Green CNP. Ankita Green APRN.MOTOR BUS DRIVER documented in this encounterOhiohealth Shelby Hospital12-01-2022 History of Present illness Narrative* Shayan Juan, [facility] - 06/21/2022 9:00 AM EST Images from [...] PCP appt, no med changes made. At MOTOR BUS DRIVER visit on 05/21, patientwas seen for lower back pain. Subjective: HPI: Here today with grandchildren (4 mo and 16 mo), slightly distracted during visit. 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 Reports [...] present Adherence: denies missed doses Pharmacy: [facility] [place] ([facility]) Rx coverage: [employer] Affordability: no issues Diabetes supplies: [employer] System: none, lost her pill box ACTIVE [...] scanning reader (FREESTYLE MICHI 14 DAY READER) [facility] Use to test blood sugar as directed. flash glucose sensor (FREESTYLE MICHI 14 DAY SENSOR) kit Apply sensor to back of arm to check bloodsugars as directed. Change sensor every 2 weeks and rotate arms. glucagon (BAQSIMI) 3 mg/actuation nasal spray Use 1 [place] in the nose as needed for low [...] Inject 102 Units subcutaneously every morning. Insulin [place], Disposable, (UNIFINE PENTIPS) 31 gauge x 3/16 [...] Stressed the importance of BG control on [facility] health and longevity Encouraged trying to get [...] on 1/12/23. Patient verbalized understanding of instructions. Sahyan Ellsworth, PharmD, ALLY Primary Care Clinical Pharmacist The majority of the pharmacy visit (> 50%) was spent counseling and/or coordinating care for thepatient. interaction: face to face time was 20 minutes. documented in this encounterOhiohealth Shelby Hospital11-09-2022 Miscellaneous Notes* Telephone Encounter - Shayan Martinez RPh - 05/30/2022 10:08 AM EST Patient cancelled PharmD appt on 05/24. PharmD called to reschedule. Spoke with patient and rescheduled for tomorrow at 2 PM. Shyaan Martinez PharmD, ALL[facility] Primary Care Clinical Pharmacist documented in this encounterOhiohealth Shelby Hospital11-08-2022 Instructions* Patient Instructions* Brandy Ramirez MD [...] If you do not have a responsible bulk driver (family member or friend) with you [...] your exam. 2 06/2019 documented in this encounterOhiohealth Shelby Hospital11-08-2022 History of Present illness Narrative* Brandy [...] (BAQSIMI) 3 mg/actuation nasal spray Use 1 [place] in the nose as needed for low [...] For wheezing/shortness of breath. blood sugar diagnostic (AilolaSTYLE PRECISION JEREMIAS STRIPS) test strip Use to test blood sugar up to twice daily as instructed. Dx: insulin-dependent DM Insulin [place], Disposable, (UNIFINE PENTIPS) 31 gauge x 3/16 Use as directed 4 times daily with insulin flash glucose scanning reader (AilolaSTYLE MICHI 14 DAY READER) [facility] Use to test blood sugar as directed. [...] completed. Brandy Ramirez MD documented in this encounterOhiohealth Shelby Hospital11-03-2022 History of Present illness Narrative* Chichi [...] 24, 2022 3:47 PM documented in this encounterOhiohealth Shelby Hospital10-31-2022 History of Present illness Narrative* Ankita [...] history is provided by the patient. No english language arts teacher was used. HPI Lina Isaac is a [...] have confirmed and edited as necessary, the [facility] Review of Systems Constitutional: Negative for chills [...] URINE (POC) - URINE CULTURE Kanwal Campbell APRN.MOTOR BUS DRIVER Today: Right side flank that comes around [...] (BAQSIMI) 3 mg/actuation nasal spray Use 1 [place] in the nose as needed for low [...] Units subcutaneously every morning. flash glucose sensor (AilolaSTYLE MICHI 14 DAY SENSOR) kit Apply sensor [...] daily as instructed. Dx: insulin-dependent DM Insulin [place], Disposable, (UNIFINE PENTIPS) 31 gauge x 3/16 Use as directed 4 times daily with insulin flash glucose scanning reader (AilolaSTYLE MICHI 14 DAY READER) [facility] Use to test blood sugar as directed. [...] PROCEDURE) Ankita Green APRN.CARLITOS documented in this encounterOhiohealth Shelby Hospital10-30-2022 History of Present illness Narrative* Kanwal Campbell APRN.CNP - 05/20/2022 8:39 AM EDT Images from the original note were not included. Subjective The history is provided by the patient. No english language arts teacher was used. NARCISA Isaac is a 56 [...] have confirmed and edited as necessary, the [facility] Review of Systems Constitutional: Negative for chills [...] URINE (POC) - URINE CULTURE Kanwal Campbell APRN.MOTOR BUS DRIVER documented in this encounterOhiohealth Shelby Hospital10-12-2022 Miscellaneous Notes* Telephone Encounter - Yoly [...] scale. TDD 84 units/day. documented in this encounterOhiohealth Shelby Hospital10-12-2022 Miscellaneous Notes* Telephone Encounter - Pippa De La Rosa LPN - 05/02/2022 11:54 AM EDT Shira--04/27/22 Nov-07/24/2022 Last refill--07/06/21 25 pens with 3 refills Last labs--04/27/22 documented in this encounterOhiohealth Shelby Hospital10-07-2022 History of Present illness Narrative* Jese [...] (BAQSIMI) 3 mg/actuation nasal spray Use 1 [place] in the nose as needed for low [...] daily as instructed. Dx: insulin-dependent DM Insulin [place], Disposable, (UNIFINE PENTIPS) 31 gauge x 3/16 Use as directed 4 times daily with insulin flash glucose scanning reader (FREESTYLE MICHI 14 DAY READER) [facility] Use to test blood sugar as directed. [...] Lymph% 04/25/2022 45.8 Abs Lymph 04/25/2022 2.54 Dubois% 04/25/2022 7.8 Abs [place] 04/25/2022 0.43 Eosin% 04/25/2022 2.9 Abs Eosin [...] BASIC Jese Zheng DO documented in this encounterOhiohealth Shelby Hospital10-05-2022 History of Present illness Narrative* RT [...] 25, 2022 10:10 AM documented in this encounterOhiohealth Shelby Hospital09-01-2022 Miscellaneous Notes* Telephone Encounter - Deya [...] you. Deya Gross LPN documented in this encounterOhiohealth Shelby Hospital08-15-2022 Miscellaneous Notes* Telephone Encounter - Bettina [...] 03/06/2022 Last refill: 09/2021 documented in this encounterOhiohealth Shelby Hospital07-21-2022 History of Present illness Narrative* Shayan Martinez, [facility] - 02/08/2022 9:30 AM EDT Images from [...] in February at upcoming appt. 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 flash glucose sensor (FREESTYLE MICHI 14 DAY SENSOR) kit Apply sensor to back of arm to check bloodsugars as directed. Change sensor every 2 weeks and rotate arms. glucagon (BAQSIMI) 3 mg/actuation nasal spray Use 1 [place] in the nose as needed for low [...] Inject 78 Units subcutaneously once daily. Insulin [place], Disposable, (UNIFINE PENTIPS) 31 gauge x 3/16 Use as directed 4 times daily with insulin lisinopril (ZESTRIL, PRINIVIL) 10 mg tablet Take 1 tablet by mouth once daily. metFORMIN (GLUCOPHAGE) 1,000 mg tablet Take 1 tablet by mouth twice daily. mupirocin (BACTROBAN) 2 % ointment Apply to affected area. Oral Medication Containers (BD [facility] DEPARTMENT PHYSICIAN) misc Use as instructed for DM supply [...] 120 05/09/2021 The 10-year ASCVD risk score (Plama RAMIREZ Jr., et al., 2013) is: 9.9% [...] verbalized understanding of instructions. Shayan Martinez PharmD, [facility] Primary Care Clinical Pharmacist Eloise Casillas [facility] The majority of the pharmacy visit (> 50%) was spent counseling and/or coordinating care for thepatient. interaction: face to face time was 55 minutes. documented in this encounterOhiohealth Shelby Hospital07-21-2022 Instructions* Patient Instructions* Shayan Martinez RPh [...] on your arm and start using your Powered Outcomesyle Michi again. Talk to Dr. Zheng about your mood and possibly seeing a counselor. Bring all of your medications and pill bottles to your next appointment with [facility]. TAKE TIME FOR YOURSELF!!!! You need to take care of yourself so that you can be your best to take care of other. documented in this encounterOhiohealth Shelby Hospital07-07-2022 Miscellaneous Notes* Telephone Encounter - Shayan Martinez RPh - 01/25/2022 9:13 AM EDT No show for PharmD visit today. LMOM to return call to office to reschedule. Shayan Martinez PharmD, BCPS Primary Care Clinical Pharmacist Eloise Casillas [facility] documented in this encounterOhiohealth Shelby Hospital06-14-2022 Miscellaneous Notes* Telephone Encounter - Indu Petty Ma - 01/02/2022 8:22 AM EDT Pt sent Ivalua message notifying her of results. If questions [...] her foot. Would recommend follow up with Receiving Worker Jese Zheng DO documented in this encounterOhiohealth Shelby Hospital06-13-2022 Miscellaneous Notes* Telephone Encounter - Fabiana [...] body. IMPRESSION: No acute abnormality. Will await structural fitter opinion and further imaging Jese Zheng DO documented in this encounterOhiohealth Shelby Hospital06-11-2022 History of Present illness Narrative* Akira [...] 30, 2021 10:22 AM documented in this encounterOhiohealth Shelby Hospital06-11-2022 History of Present illness Narrative* Jese [...] (BAQSIMI) 3 mg/actuation nasal spray Use 1 [place] in the nose as needed for low [...] daily as instructed. Dx: insulin-dependent DM Insulin [place], Disposable, (UNIFINE PENTIPS) 31 gauge x 3/16 Use as directed 4 times daily with insulin flash glucose scanning reader (FREESTYLE MICHI 14 DAY READER) [facility] Use to test blood sugar as directed. albuterol (PROVENTIL) 2.5 mg /3 mL (0.083 %) nebulizer solution Use 3 mL via nebulizer every 4 hours as needed for Wheezing/Shortness of Breath. Use over 5-15minutes. blood sugar diagnostic (FREESTYLE LITE STRIPS) test strip Test blood glucose three times daily as instructed. E11.9, E66.9 UNILET SUPER THIN LANCETS [facility] Test blood sugar once daily. Blood-Glucose Meter (FREESTYLE LITE METER) monitoring kit Freestyle LITE Meter Kit - glucose 4 gram chewable tablet Take 4 tablets by mouth as needed. For blood sugars less than 70 Oral Medication Containers (BD [facility] DEPARTMENT PHYSICIAN) misc Use as instructed for DM supply [...] and CT foot and follow up with Receiving Worker STEPHANIE, will go to EMERGENCY DEPARTMENT if [...] and CT foot and follow up with Receiving Worker STEPHANIE, will go to EMERGENCY DEPARTMENT if [...] and CT foot and follow up with Receiving Worker STEPHANIE, will go to EMERGENCY DEPARTMENT if [...] and CT foot and follow up with Receiving Worker STEPHANIE, will go to EMERGENCY DEPARTMENT if [...] and CT foot and follow up with Receiving Worker STEPHANIE, will go to EMERGENCY DEPARTMENT if [...] See patient instructions. Jese Zheng DO [address] [place] [address] documented in this encounterOhiohealth Shelby Hospital06-11-2022 Instructions* Patient Instructions* Jese Zheng DO - 12/30/2021 10:[address] Elena Cano Receiving Worker Address: [address] [place] [id number] documented in this encounterOhiohealth Shelby Hospital06-09-2022 Miscellaneous Notes* Telephone Encounter - Scarlett [...] Patientasking if antibiotic needs changed? Patient uses [facility] for her pharmacy. Patient is concerned since [...] advise, Aspen Almaguer RN documented in this encounterOhiohealth Shelby Hospital06-03-2022 Miscellaneous Notes* Telephone Encounter - Ankita Green APRN.CNP - 12/22/2021 7:24 AM EDT New order placed for diabetes education. I noted in the comments that she is known to Shayan, and this is just an insurance request to be updated. Ankita Green APRN.CNP * Telephone Encounter - Roxy Christine RN - 12/21/2021 4:51 PM EDT [facility] Skoog Patching Machine Operator was not very specific. Patient had an order for Diabetic Education in the past on 04/22/19. I'll send this to her PCP to see if they will order. Roxy Christine RN * Telephone Encounter - Shayan Martinez RPh - 12/21/2021 4:28 PM EDT I'm not sure what this specific request means. I reached out to patient and have her scheduled for a visit with me in a few weeks. I am uncertain if there is an additional service her insurance is requesting. Shayan Martinez PharmD, [facility] Primary Care Clinical Pharmacist Eloise Casillas [facility] * Telephone Encounter - Roxy Christine RN - 12/21/2021 3:45 PM EDT Elliot, Skoog Patching Machine Operator @ [facility] calling to request order for Consult to Diabetic Education for patient. Roxy Christine RN documented in this encounterOhiohealth Shelby Hospital06-02-2022 Miscellaneous Notes* Telephone Encounter - Shayan Martinez RPh - 12/21/2021 10:06 AM EDT A1c returned elevated but improved from July. PharmD called patient and relayed info. Requested f/up appt with PharmD for DM mngt - scheduled appt for 01/04 and requested patient to bring in CGM for interpretation. Patient agreed. Shayan Martinez PharmD, [facility] Primary Care Clinical Pharmacist [facility] documented in this encounterOhiohealth Shelby Hospital06-01-2022 Instructions* Patient Instructions* Ankita Green APRN.MOTOR BUS DRIVER - 12/20/2021 9:44 AM EDT If within a week things are not improving or are getting worse, we need to see you in the office again. Start your doxycycline antibiotic, twice daily. If you're able to pick it up this morning, go aheadand take it twice today. documented in this encounterOhiohealth Shelby Hospital06-01-2022 History of Present illness Narrative* Ankita [...] (BAQSIMI) 3 mg/actuation nasal spray Use 1 [place] in the nose as needed for low [...] daily as instructed. Dx: insulin-dependent DM Insulin [place], Disposable, (UNIFINE PENTIPS) 31 gauge x 3/16 Use as directed 4 times daily with insulin flash glucose scanning reader (FREESTYLE MICHI 14 DAY READER) [facility] Use to test blood sugar as directed. [...] than 70 Oral Medication Containers (BD [facility] EMERGENCY DEPARTMENT PHYSICIAN) misc Use as instructed for DM supply [...] TABLET Ankita Green APRN.CARLITOS documented in this encounterOhiohealth Shelby Hospital05-02-2022 Miscellaneous Notes* Telephone Encounter - Hayde Duckworth Ma - 11/20/2021 7:19 AM EDT Please see pt message. Sx are not improving. Consult to ortho pended, please advise. Hayde Duckworth Ma documented in this encounterOhiohealth Shelby Hospital04-27-2022 Miscellaneous Notes* Telephone Encounter - Pippa De La Rosa LPN - 11/15/2021 9:48 AM EDT Left detailed message to remind pt of labs. * Telephone Encounter - Jese Zheng DO - 11/15/2021 7:25 AM EDT Please call patient to remind her to have her labs drawn fasting Jese Zheng DO documented in this encounterOhiohealth Shelby Hospital04-26-2022 History of Present illness Narrative* Concepcion [...] 14, 2021 10:57 AM documented in this encounterOhiohealth Shelby Hospital04-26-2022 History of Present illness Narrative* Jese [...] (BAQSIMI) 3 mg/actuation nasal spray Use 1 [place] in the nose as needed for low [...] daily as instructed. Dx: insulin-dependent DM Insulin [place], Disposable, (UNIFINE PENTIPS) 31 gauge x 3/16 Use as directed 4 times daily with insulin flash glucose scanning reader (FREESTYLE MICHI 14 DAY READER) [facility] Use to test blood sugar as directed. albuterol (PROVENTIL) 2.5 mg /3 mL (0.083 %) nebulizer solution Use 3 mL via nebulizer every 4 hours as needed for Wheezing/Shortness of Breath. Use over 5-15minutes. blood sugar diagnostic (FREESTYLE LITE STRIPS) test strip Test blood glucose three times daily as instructed. E11.9, E66.9 UNILET SUPER THIN LANCETS 30 gauge [facility] Test blood sugar once daily. Blood-Glucose Meter (FREESTYLE LITE METER) monitoring kit Freestyle LITE Meter Kit - glucose 4 gram chewable tablet Take 4 tablets by mouth as needed. For blood sugars less than 70 Oral Medication Containers (BD [facility] EMERGENCY DEPARTMENT PHYSICIAN) [facility] Use as instructed for DM supply disposal [...] agreed with the plan. Jese Zheng DO [address] [id number] documented in this encounterOhiohealth Shelby Hospital04-26-2022 Instructions* Patient Instructions* Jese Zheng DO [...] Follow up with Orthopedics documented in this encounterOhiohealth Shelby Hospital04-11-2022 Miscellaneous Notes* Telephone Encounter - Antonette Kurtz LPN - 10/30/2021 1:17 PM EDT Patient calling asking for refills of medications that pharmacy is telling has no more refills on her Qu[employer] program. Computer shows these have not been [...] you. Antonette Kurtz LPN documented in this encounterOhiohealth Shelby Hospital03-30-2022 History of Present illness Narrative* Chichi Pickard, RT(R) - 10/18/2021 3:00 PM EDT Radiology Service Progress Note PATIENT NAME: Lina sIaac DATE OF SERVICE: October 18, 2021 TIME: [...] 18, 2021 3:44 PM documented in this encounterOhiohealth Shelby Hospital03-29-2022 Miscellaneous Notes* Telephone Encounter - Scarlett MARTINEZ - 10/17/2021 10:15 AM EDT Upon checking, patient's referral through [facility] was Authorized and I called the [...] advise. Marci Koch RN documented in this encounterOhiohealth Shelby Hospital03-25-2022 History of Present illness Narrative* Jese [...] (BAQSIMI) 3 mg/actuation nasal spray Use 1 [place] in the nose as needed for low [...] area four times daily. blood sugar diagnostic (AilolaSTYLE PRECISION JEREMIAS STRIPS) test strip Use to test blood sugar up to twice daily as instructed. Dx: insulin-dependent DM famotidine (PEPCID) 20 mg tablet Take 1 tablet by mouth twice daily. Insulin [place], Disposable, (UNIFINE PENTIPS) 31 gauge x 3/16 Use as directed 4 times daily with insulin flash glucose scanning reader (FREESTYLE MICHI 14 DAY READER) [facility] Use to test blood sugar as directed. [...] than 70 Oral Medication Containers (BD [facility]PS EMERGENCY DEPARTMENT PHYSICIAN) [facility] Use as instructed for DM supply disposal [...] agreed with the plan. Jese Zheng DO [address] [place] [address] documented in this encounterOhiohealth Shelby Hospital03-15-2022 History of Past illness Narrative* Problem [...] of this encounter (statuses as of 12/20/2021) [facility] of Past illness Narrative* Problem [...] of this encounter (statuses as of 12/21/2021) [facility] of Past illness Narrative* Problem [...] of this encounter (statuses as of 12/23/2021) [facility] of Past illness Narrative* Problem [...] of this encounter (statuses as of 12/26/2021) [facility] of Past illness Narrative* Problem [...] of this encounter (statuses as of 12/28/2021) [facility] of Past illness Narrative* Problem [...] of this encounter (statuses as of 12/30/2021) [facility] of Past illness Narrative* Problem [...] of this encounter (statuses as of 01/01/2022) [facility] of Past illness Narrative* Problem [...] of this encounter (statuses as of 01/02/2022) [facility] of Past illness Narrative* Problem [...] of this encounter (statuses as of 01/25/2022) [facility] of Past illness Narrative* Problem [...] of this encounter (statuses as of 02/08/2022) [facility] of Past illness Narrative* Problem [...] of this encounter (statuses as of 03/05/2022) [facility] of Past illness Narrative* Problem [...] of this encounter (statuses as of 03/22/2022) [facility] of Past illness Narrative* Problem [...] of this encounter (statuses as of 04/26/2022) [facility] of Past illness Narrative* Problem [...] of this encounter (statuses as of 04/27/2022) [facility] of Past illness Narrative* Problem [...] of this encounter (statuses as of 05/02/2022) [facility] illness Narrative* Problem [...] of this encounter (statuses as of 05/02/2022) [facility] of [facility] illness Narrative* Problem [...] of this encounter (statuses as of 05/20/2022) [facility] illness Narrative* Problem [...] of this encounter (statuses as of 05/23/2022) [facility] of [facility] illness Narrative* Problem [...] of this encounter (statuses as of 05/30/2022) [facility] illness Narrative* Problem [...] of this encounter (statuses as of 05/30/2022) [facility] of Past illness Narrative* Problem [...] of this encounter (statuses as of 06/21/2022) [facility] of Past illness Narrative* Problem [...] of this encounter (statuses as of 06/25/2022) [facility] illness Narrative* Problem [...] of this encounter (statuses as of 06/29/2022) [facility] illness Narrative* Problem [...] of this encounter (statuses as of 07/13/2022) [facility] of Past illness Narrative* Problem [...] of this encounter (statuses as of 07/26/2022) [facility] Narrative* Problem [...] of this encounter (statuses as of 07/30/2022) [facility] illness Narrative* Problem [...] of this encounter (statuses as of 07/30/2022) [facility] Narrative* Problem [...] of this encounter (statuses as of 08/06/2022) [facility] Narrative* Problem [...] of this encounter (statuses as of 08/06/2022) [facility] Narrative* Problem [...] of this encounter (statuses as of 08/29/2022) [facility] Narrative* Problem [...] of this encounter (statuses as of 08/30/2022) [facility] Narrative* Problem [...] of this encounter (statuses as of 09/11/2022) [facility] Narrative* Problem [...] of this encounter (statuses as of 09/13/2022) [facility] Narrative* Problem [...] of this encounter (statuses as of 09/13/2022) [facility] Narrative* Problem [...] of this encounter (statuses as of 09/27/2022) [facility] Narrative* Problem [...] of this encounter (statuses as of 10/01/2022) [facility] Narrative* Problem [...] of this encounter (statuses as of 10/18/2022) [facility] Narrative* Problem [...] of this encounter (statuses as of 10/18/2022) [facility] Narrative* Problem [...] of this encounter (statuses as of 10/30/2022) [facility] Narrative* Problem [...] of this encounter (statuses as of 11/15/2022) [facility] Narrative* Problem [...] of this encounter (statuses as of 11/16/2022) [facility] Narrative* Problem [...] of this encounter (statuses as of 12/01/2022) [facility] Narrative* Problem [...] of this encounter (statuses as of 12/27/2022) [facility] Narrative* Problem [...] of this encounter (statuses as of 01/03/2023) [facility] Narrative* Problem [...] of this encounter (statuses as of 01/04/2023) [facility] Narrative* Problem [...] of this encounter (statuses as of 02/01/2023) [facility] Narrative* Problem [...] of this encounter (statuses as of 02/01/2023) [facility] Narrative* Problem [...] of this encounter (statuses as of 02/21/2023) [facility]03-[facility]-2022 History of Past illness Narrative* Problem [...] of this encounter (statuses as of 02/25/2023) [facility] History of Past illness Narrative* Problem [...] of this encounter (statuses as of 02/25/2023) [facility] History of Past illness Narrative* Problem [...] of this encounter (statuses as of 02/27/2023) [facility] History of Past illness Narrative* Problem [...] of this encounter (statuses as of 03/14/2023) [facility] History of Past illness Narrative* Problem [...] of this encounter (statuses as of 03/26/2023) [facility] History of Past illness Narrative* Problem [...] of this encounter (statuses as of 03/26/2023) [facility] History of Past illness Narrative* Problem [...] of this encounter (statuses as of 04/02/2023) [facility] History of Past illness Narrative* Problem [...] of this encounter (statuses as of 04/02/2023) [facility] History of Past illness Narrative* Problem [...] of this encounter (statuses as of 04/02/2023) [facility] Past illness Narrative* Problem [...] of this encounter (statuses as of 04/05/2023) [facility] History of Past illness Narrative* Problem [...] of this encounter (statuses as of 04/06/2023) [facility] History of Past illness Narrative* Problem [...] of this encounter (statuses as of 05/10/2023) [facility] History of Past illness Narrative* Problem [...] of this encounter (statuses as of 05/26/2023) [facility] History of Past illness Narrative* Problem [...] of this encounter (statuses as of 05/26/2023) [facility] History of Past illness Narrative* Problem [...] of this encounter (statuses as of 05/26/2023) [facility] History of Past illness Narrative* Problem [...] of this encounter (statuses as of 05/26/2023) [facility] History of Past illness Narrative* Problem [...] of this encounter (statuses as of 05/26/2023) [facility] History of Past illness Narrative* Problem [...] of this encounter (statuses as of 05/26/2023) [facility] History of Past illness Narrative* Problem [...] of this encounter (statuses as of 05/26/2023) [facility] Past illness Narrative* Problem [...] of this encounter (statuses as of 05/29/2023) [facility] History of Past illness Narrative* Problem [...] of this encounter (statuses as of 05/29/2023) [facility] History of Past illness Narrative* Problem [...] of this encounter (statuses as of 05/29/2023) [facility] History of Past illness Narrative* Problem [...] of this encounter (statuses as of 05/30/2023) [facility] History of Past illness Narrative* Problem [...] of this encounter (statuses as of 06/07/2023) [facility] Past illness Narrative* Problem [...] of this encounter (statuses as of 06/07/2023) [facility] History of Past illness Narrative* Problem [...] of this encounter (statuses as of 06/18/2023) [facility] History of Past illness Narrative* Problem [...] of this encounter (statuses as of 06/28/2023) [facility] Past illness Narrative* Problem [...] of this encounter (statuses as of 08/23/2023) [facility] Past illness Narrative* Problem [...] of this encounter (statuses as of 08/27/2023) [facility] Past illness Narrative* Problem [...] of this encounter (statuses as of 08/28/2023) [facility] of Past illness Narrative* Problem [...] of this encounter (statuses as of 09/09/2023) [facility] History of Past illness Narrative* Problem [...] of this encounter (statuses as of 09/21/2023) [facility] History of Past illness Narrative* Problem [...] of this encounter (statuses as of 09/26/2023) [facility] History of Past illness Narrative* Problem [...] of this encounter (statuses as of 10/11/2023) [facility] Past illness Narrative* Problem [...] of this encounter (statuses as of 10/14/2023) [facility] History of Past illness Narrative* Problem [...] of this encounter (statuses as of 11/01/2023) [facility] History of Past illness Narrative* Problem [...] of this encounter (statuses as of 11/01/2023) [facility] History of Past illness Narrative* Problem [...] of this encounter (statuses as of 09/21/2023) [facility] History of Present illness Narrative* Concepcion [...] 10, 2021 4:21 PM [facility] of Present illness Narrative* Concepcion Ocampo RT(R) - 12/01/2020 12:10 PM EDT Radiology Service Progress Note PATIENT NAME: Lina Isaac DATE OF SERVICE: December 01, 2020 [...] 01, 2020 12:11 PM [facility] Narrative* Problem [...] of this encounter (statuses as of 10/18/2021) [facility] History of Past illness Narrative* Problem [...] of this encounter (statuses as of 10/18/2021) [facility] History of Past illness Narrative* Problem [...] of this encounter (statuses as of 2021) [facility] History of Past illness Narrative* Problem [...] of this encounter (statuses as of 2021) [facility] History of Past illness Narrative* Problem [...] of this encounter (statuses as of 10/30/2021) [facility] History of Past illness Narrative* Problem [...] of this encounter (statuses as of 11/15/2021) [facility] History of Past illness Narrative* Problem [...] of this encounter (statuses as of 11/15/2021) [facility] History of Past illness Narrative* Problem [...] of this encounter (statuses as of 11/21/2021) [facility] Note Date/Time February 25, 2025 2:3 4pm [facility] Medical Records Department [address] [facility] [place] [address] Instructions for Home/Discharge Instructions 02/25/25 1433 MR#: [id number] Acct: [id number] Name: MART ISAACJOHNNY Del Angel Rep #:[id number] : 1965 59 From: Clarissa Herrera MD [...] MD; Mary Kay Dugan DO ~ Signed [facility] Work Phone: Evaluation note* Diagnosis Uncontrolled type 2 diabetes mellitus with hyperglycemia (HCC)- Primary Essential hypertension Unspecified essential hypertension Hyperlipidemia, mixed Mixed hyperlipidemia Generalized abdominal pain Abdominal pain, generalized [facility] [place] [facility]* Diagnosis Adverse effect of treatment, subsequent encounter [facility] [place] [facility]* Diagnosis Uncontrolled type 2 diabetes mellitus with hyperglycemia (HCC)- Primary Essential hypertension Unspecified essential hypertension Chronic constipation Unspecified constipation Injury of left thumb, initial encounter Injury of left wrist, initial encounter Hyperlipidemia, mixed Mixed hyperlipidemia Generalized abdominal pain Abdominal pain, generalized Obesity, Class I, BMI 30-34.9 Obesity, unspecified [facility] [place] [facility] Diagnosis Injury of left thumb, initial encounter- Primary Injury of left wrist, initial encounter [facility] [place] [facility]* Diagnosis Cellulitis of left foot- Primary Cellulitis and abscess of foot, except toes [facility] [place] [facility]* Diagnosis Uncontrolled type 2 diabetes mellitus with hyperglycemia (HCC)- Primary [facility] [place] [facility]* Diagnosis Nonintractable episodic headache, unspecified headache type [facility] [place] [facility]* Diagnosis Ingrown left greater toenail- Primary Ingrowing nail Localized swelling of left foot Pain of left heel Pain in limb Injury of left heel, subsequent encounter Left foot pain Pain in limb [facility] [place] [facility]* Diagnosis Uncontrolled type 2 diabetes mellitus with hyperglycemia (HCC)- Primary Medication management Encounter for long-term (current) use of other medications documented in this encounter [facility]* Diagnosis Uncontrolled type 2 diabetes mellitus with hyperglycemia (HCC) [facility] [place] [facility]* Diagnosis Screening for osteoporosis Special screening for osteoporosis [facility] [place] [facility]* Diagnosis Uncontrolled type 2 diabetes mellitus with hyperglycemia (HCC)- Primary Vitamin D deficiency Unspecified vitamin D deficiency Vitamin B12 deficiency Other B-complex deficiencies Need for influenza vaccination Need for prophylactic vaccination and inoculation against influenza Need for shingles vaccine Need for prophylactic vaccination and inoculation against other viral diseases Essential hypertension Unspecified essential hypertension Hyperlipidemia, mixed Mixed hyperlipidemia [facility] [place] [facility]* Diagnosis Type 2 diabetes mellitus with diabetic polyneuropathy (HCC) Type II or unspecified type diabetes mellitus with neurological manifestations, not stated as uncontrolled [facility] [place] [facility]* Diagnosis Acute right-sided low back pain without sciatica- Primary [facility] [place] [facility]* Diagnosis Right flank pain- Primary Abdominal pain, unspecified site RUQ pain Abdominal pain, right upper quadrant Chronic RLQ pain Abdominal pain, right lower quadrant Nausea Nausea alone Nausea and vomiting, unspecified vomiting type [facility] [place] [facility]* Diagnosis Abdominal pain, unspecified abdominal location- Primary Change in bowel habits Other symptoms involving digestive system [facility] [place] [facility]* Diagnosis Uncontrolled type 2 diabetes mellitus with hyperglycemia (HCC)- Primary Essential hypertension Unspecified essential hypertension [facility] [place] [facility]* Diagnosis Influenza A- Primary Influenza with other respiratory manifestations Persistent cough Cough Fever, unspecified fever cause documented [facility] [place] [facility]* Diagnosis Uncontrolled type 2 diabetes mellitus with hyperglycemia (HCC) documented [facility] [place] [facility]* Diagnosis Type 2 diabetes mellitus with [...] 30-34.9 Obesity, unspecified [facility] [place] [facility]* Diagnosis Uncontrolled type 2 diabetes mellitus with hyperglycemia (HCC)- Primary [facility] [place] [facility]* Diagnosis Uncontrolled type 2 diabetes mellitus with hyperglycemia (HCC)- Primary [facility] [place] [facility]* Diagnosis Urinary frequency- Primary Glucosuria Glycosuria Acute left-sided low back pain without sciatica documented [facility] [place] [facility]* Diagnosis Uncontrolled type 2 diabetes mellitus with hyperglycemia (HCC)- Primary Essential hypertension Unspecified essential hypertension [facility] [place] [facility]* Diagnosis Nausea- Primary Nausea alone Pain of upper abdomen Abdominal pain, other specified site Type 2 diabetes mellitus with peripheral neuropathy (HCC) RUQ pain Abdominal pain, right upper quadrant Gastroesophageal reflux disease, unspecified whether esophagitis present Abdominal bloating Flatulence, eructation, and gas pain Acute left flank pain Abdominal pain, unspecified site Chest tightness Other chest pain [facility] [place] [facility]* Diagnosis Lung nodules- Primary Other nonspecific abnormal finding of lung field Multiple lung nodules Other nonspecific abnormal finding of lung field Chest tightness Other chest pain [facility] [place] noteNo assessment information availableWCleveland Clinic Foundation Work Phone: [facility] [place] [facility]* Diagnosis Uncontrolled type 2 diabetes mellitus with hyperglycemia (HCC)- Primary documented in this encounter [facility] note* Diagnosis Current moderate episode of major depressive disorder without prior episode (HCC)- Primary Type 2 diabetes mellitus with peripheral neuropathy (HCC) Fatigue, unspecified type Dyslipidemia Other and unspecified hyperlipidemia SOB (shortness of breath) Shortness of breath Wheezing Pulmonary nodule Solitary pulmonary nodule Multiple lung nodules Other nonspecific abnormal finding of lung field [facility] [place] [facility]* Diagnosis Other polyneuropathy documented in this encounter [facility] note* Diagnosis Type 2 diabetes mellitus with peripheral neuropathy (HCC)- Primary [facility] [place] [facility]* Diagnosis Type 2 diabetes (HCC) documented [facility] [place] [facility]* Diagnosis Vitamin B12 deficiency Other B-complex deficiencies documented in this encounter [facility] note* Diagnosis Acute non-recurrent sinusitis, unspecified location- Primary documented in this encounter [facility] note* Diagnosis Acute COVID-19- Primary documented in this encounter [facility] note* Diagnosis SOB (shortness of breath) Shortness of breath Wheezing Pulmonary nodule Solitary pulmonary nodule documented in this encounter [facility] note* Diagnosis Chest tightness Other chest pain documented in this encounter [facility] note* Diagnosis Nausea Nausea alone Right flank pain Abdominal pain, unspecified site RUQ pain Abdominal pain, right upper quadrant Chronic RLQ pain Abdominal pain, right lower quadrant Nausea and vomiting, unspecified vomiting type documented in this encounter [facility] note* Diagnosis Nausea Nausea alone Pain of upper abdomen Abdominal pain, other specified site Type 2 diabetes mellitus with peripheral neuropathy (HCC) RUQ pain Abdominal pain, right upper quadrant Gastroesophageal reflux disease, unspecified whether esophagitis present Abdominal bloating Flatulence, eructation, and gas pain documented in this encounter [facility] note* Diagnosis Encounter for screening mammogram for malignant neoplasm of breast Other screening mammogram [facility] [place] [facility]* Diagnosis Nausea Nausea alone Pain of upper abdomen Abdominal pain, other specified site Type 2 diabetes mellitus with peripheral neuropathy (HCC) RUQ pain Abdominal pain, right upper quadrant Gastroesophageal reflux disease, unspecified whether esophagitis present Abdominal bloating Flatulence, eructation, and gas pain documented [facility] [place] [facility]* Diagnosis Right leg swelling Swelling of limb Right calf pain documented in this encounter [facility] note* Diagnosis Type 2 diabetes mellitus with [...] 30-34.9 Obesity, unspecified [facility] [place] [facility]* Diagnosis Uncontrolled type 2 diabetes mellitus with hyperglycemia (HCC)- Primary [facility] [place] [facility]* Diagnosis Type 2 diabetes mellitus with peripheral neuropathy (HCC)- Primary Other polyneuropathy Fatigue, unspecified type Dyslipidemia Other and unspecified hyperlipidemia Hepatic steatosis Other chronic nonalcoholic liver disease Obesity, Class I, BMI 30-34.9 Obesity, unspecified Vitamin D deficiency Unspecified vitamin D deficiency Acute bronchitis, unspecified organism documented [facility] [place] [facility]* Diagnosis Vitamin D deficiency Unspecified vitamin D deficiency documented [facility] [place] [facility]* Diagnosis Uncontrolled type 2 diabetes mellitus with hyperglycemia (HCC)- Primary [facility] [place] [facility]* Diagnosis Ear fullness, bilateral- Primary documented in this encounter [facility] note* Diagnosis Encounter for screening mammogram for breast cancer documented [facility] [place] [facility]* Diagnosis Type 2 diabetes mellitus without complication, with long-term current use of insulin (HCC)- Primary Vitamin B12 deficiency Other B-complex deficiencies Hepatic steatosis Other chronic nonalcoholic liver disease Dyslipidemia Other and unspecified hyperlipidemia Acute otitis externa of right ear, unspecified type Carotid atherosclerosis, bilateral [facility] [place] [facility]* Diagnosis Uncontrolled type 2 diabetes mellitus with hyperglycemia (HCC)- Primary [facility] [place] [facility]* Diagnosis Type 2 diabetes mellitus without complication, with long-term current use of insulin (HCC)- Primary Vitamin B12 deficiency Other B-complex deficiencies Dyslipidemia Other and unspecified hyperlipidemia Vitamin D deficiency Unspecified vitamin D deficiency Essential hypertension Unspecified essential hypertension Gastroesophageal reflux disease, unspecified whether esophagitis present [facility] [place] [facility]* Diagnosis SOB (shortness of breath) Shortness of breath Wheezing Pulmonary nodule Solitary pulmonary nodule documented [facility] [place] [facility]* Diagnosis Encounter for screening mammogram for breast cancer documented [facility] [place] [facility]* Diagnosis Injury of left thumb, initial encounter Injury of left wrist, initial encounter [facility] [place] [facility]* Diagnosis Ingrown left greater toenail Ingrowing nail Localized swelling of left foot Pain of left heel Pain in limb Injury of left heel, subsequent encounter Left foot pain Pain in limb [facility] [place] [facility]* Diagnosis Uncontrolled type 2 diabetes mellitus with hyperglycemia (HCC)- Primary [facility] [place] [facility]* Diagnosis Acute right-sided low back pain with right-sided sciatica Acute right-sided thoracic back pain documented [facility] [place] [facility]* Diagnosis Generalized abdominal pain Abdominal pain, generalized documented [facility] [place] [facility]* Diagnosis Acute non-recurrent maxillary sinusitis- Primary Acute bronchitis, unspecified organism Rhinorrhea Other diseases of nasal cavity and sinuses documented [facility] [place] [facility]* Diagnosis Right hand pain Pain in limb Localized swelling of finger of right hand [facility] [place] [facility]* Diagnosis Uncontrolled type 2 diabetes mellitus with hyperglycemia (HCC)- Primary [facility] [place] [facility]* Diagnosis Right hand pain- Primary Pain in limb documented [facility] [place] [facility]* Diagnosis Type 2 diabetes mellitus with peripheral neuropathy (HCC)- Primary Right hand pain Pain in limb Trigger finger, unspecified finger, unspecified laterality documented [facility] this encounter [facility] [place] [facility]* Diagnosis Type 2 diabetes mellitus with [...] Pain in limb documented [facility] [place] [facility]* Diagnosis Uncontrolled type 2 diabetes mellitus with hyperglycemia (HCC)- Primary [facility]* Diagnosis Shortness of breath COVID-19 documented [facility] this [facility] [place] [facility]* Diagnosis Uncontrolled type 2 diabetes mellitus with hyperglycemia (HCC)- Primary [facility] [place] [facility]* Diagnosis Type 2 diabetes mellitus without complication, with long-term current use of insulin (HCC)- Primary Trigger middle finger of right hand Trigger finger (acquired) Right hand pain Pain in limb Dysuria Dyslipidemia Other and unspecified hyperlipidemia Essential hypertension Unspecified essential hypertension [facility]* Diagnosis Uncontrolled type 2 diabetes mellitus with hyperglycemia (HCC)- Primary [facility]* Diagnosis Onset Date Resolution Status Admit Date Acute CHF acute February 22 8:21pm Acute cough acute February 22, 025 8:21pm Chest pain acute February 22 8:21pm Elevated troponin acute February 22, 2025 8:21pm Hypoxemia acute February 22 8:21pm [facility] Work Phone: Evaluation note* Diagnosis Chest pain on breathing- Primary Painful respiration Type 2 diabetes mellitus with peripheral neuropathy (HCC) Shortness of breath Fatigue, unspecified type [facility] Author Denton Cook [facility] Note Date/Time February 22, 2025 8:2 1pm [facility] Medical Records Department [address] [place] [id number] History & Physical Exam 02/22/252008 MR#: [id number] Acct: [id number] Name: LINA ISAAC Rep #:[id number] : 1965 59 From: Denton Cook MD [...] and echocardiogram will be ordered as well. [facility] Medical History (Updated 02/22/25 @ 20:09 [...] 2.5 mg/3 mL 2.5 mg inhalation Q4H [place] N 05/11/19 Unknown History (0.083 %) solution [...] % (Auto) 48.8, Lymph % (Auto) 37.3, Dubois % (Auto) 11.0 H, Eos % (Auto) [...] in the appropriate clinical context. Reading Location: [facility] Assessment & Plan Assessment/Plan (1) Chest pain: [...] hold albuterol at this time 2. NSTEMI?consult housemaid Dr Montero. Continue to cycle cardiac enzymes, will add oxygen, nitroglycerin as needed for pain and aspirin. Pain seems to berelatively controlled at this time. Will make patient n.p.o. at midnight 3. Congestive heart failure?will get echocardiogram 4. Diabetes?will add sliding scale insulin and will adjust accordingly 5. Smoking?cessation strongly encouraged 6. DVT prophylaxis?low molecular weight heparin Charges/Coding Visit Charges Inpatient E&M: 36208 Init Hosp L2 02/22/252020 <Electronically signed by Denton Cook MD> Cosigner Signature (if applicable): CC: Dr. Jese Zheng DO; Dr. Denton Cook MD~ Signed [facility] Work Phone: Reason for referral (narrative)* Diagnostic Procedure Only (Routine) - Closed Specialty Diagnoses / Procedures Referred By Contac t Referred To Contact XR IMAGING Diagnoses Injury of left thumb, initial encounter Injury of left wrist, initial encounter Procedures XR HAND GENERAL 3V PA/LAT/OBL LEFT RADEX HAND MINIMUM 3 VIEWS Jese Zheng DO [address] [place] [address] Xr Imaging Referral ID Status Reason Start Date Expiration Date V isits Requested Visits Authorized [id number] Closed Auto-Generate d Referral 11/14/2021 12/14/2022 1 1 * Diagnostic Procedure Only (Routine) - Closed Specialty Diagnoses / Procedures Referred By Contac t Referred To Contact XR IMAGING Diagnoses Injury of left thumb, initial encounter Injury of left wrist, initial encounter Procedures XR WRIST GENERAL 3V PA/LAT/OBL LEFT RADEX WRIST COMPLETE MINIMUM 3 VIEWS Jese Zheng, DO [address] [place] [address] Xr Imaging Referral ID Status Reason Start Date Expiration Date V isits Requested Visits Authorized [id number] Closed Auto-Generate d Referral 11/14/2021 12/14/2022 1 1 [facility] for referral (narrative)* Diagnostic Procedure Only (Routine) - Closed Specialty Diagnoses / Procedures Referred By Contac t Referred To Contact XR IMAGING Diagnoses Ingrown left greater toenail Localized swelling of left foot Pain of left heel Injury of left heel, subsequent encounter Left foot pain Procedures XR FOOT GENERAL 3V AP/LAT/OBL LEFT RADEX FOOT COMPLETE MINIMUM 3 VIEWS Jese Zheng DO [address] [place] [address] Xr Imaging Referral ID Status Reason Start Date Expiration Date V isits Requested Visits Authorized [id number] Closed Auto-Generate d Referral 12/30/2021 01/29/2023 1 [...] EXTREMITY W/O CONTRAST MATERIAL Jese Zheng DO [address] [place] [address] Ct Imaging Referral ID Status Reason Start Date Expiration Date Visits Requested Visits Authorized [id number] Additional Clinical Info Needed Auto-Generat ed Referral 12/30/2021 01/29/2023 1 1 * Consult, Test, Treat (Routine) - Authorized Specialty Diagnoses / Procedures Referred By Contac t Referred To Contact Podiatry Diagnoses Ingrown left greater toenail Localized swelling of left foot Pain of left heel Injury of left heel, subsequent encounter Left foot pain Procedures CONSULT TO PODIATRY OFFICE/OUTPATIENT [facility] 60-74 MINUTES Jese Zheng DO [address] [place] [address] Referral ID Status Reason Start Date Expiration Date Visits Requested Visits Authorized [id number] Authorized PCP Requested Referral 12/30/2021 12/30/2022 1 1 [facility] for referral (narrative)* Outpatient Procedure (Routine) - Pending Review Specialty Diagnoses / Procedures Referred By Colleen coronado Referred To Contact [facility] Diagnoses Abdominal pain, unspecified abdominal location Change in bowel habits Procedures COLONOSCOPY DIAGNOSTIC COLONOSCOPY FLX DX W/COLLJ SPEC WHEN Brandy Sahni MD [address] [place] [address] [facility] [address] [address] Referral ID Status Reason Start Date Expiration Date Visits Requested Visits Authorized [id number] Pending Review Auto-Generat ed Referral 05/29/2022 05/29/2023 1 1 * Outpatient Procedure (Routine) - Pending Review Specialty Diagnoses / Procedures Referred By Colleen coronado Referred To Contact [facility] Diagnoses Abdominal pain, unspecified abdominal location Change in bowel habits Procedures EGD DIAGNOSTIC ESOPHAGOGASTRODUODENOSC OPY TRANSORAL DIAGNOSTIC Brandy Ramirez MD [address] [place] [address] [facility] [place] [address] [place] [address] Referral ID Status Reason Start Date Expiration Date Visits Requested Visits Authorized [id number] Pending Review Auto-Generat ed Referral 05/29/2022 05/29/2023 1 1 [facility] for referral (narrative)* Diagnostic Procedure Only (Routine) - Authorized Specialty Diagnoses / Procedures Referred By Contac t Referred To Contact BR IMAGING Diagnoses Encounter for screening mammogram for malignant neoplasm of breast Procedures CHANTELL SCREENING W CAROLYN SCREENING DIGITAL BREAST TOMOSYNTHESIS BI SCREENING MAMMOGRAPHY BI 2-VIEW BREAST INC CAD Jese Zheng, DO [address] [place] [address] Br Imaging [address] [place] [address] Referral ID Status Reason Start Date Expiration Date Visits Requested Visits Authorized [id number] Authorized Auto-Generat ed Referral 07/24/2022 08/23/2023 1 1 * Diagnostic Procedure Only (Routine) - Pending Review Specialty Diagnoses / Procedures Referred By Colleen t Referred To Contact BR IMAGING Diagnoses Encounter for screening mammogram for malignant neoplasm of breast Procedures CHANTELL SCREENING SCREENING MAMMOGRAPHY BI 2-VIEW BREAST INC CAD Jese Zheng, DO [address] [place] [address] Br Imaging [address] [place] [address] Referral ID Status Reason Start Date Expiration Date Visits Requested Visits Authorized [id number] Pending Review Auto-Generat ed Referral 07/24/2022 08/23/2023 1 1 [facility] for referral (narrative)* Diagnostic Procedure Only (Routine) [...] SYST IMAG INC GB W/PHARMA INTERVENAnkita Osborn, JAXSON.MOTOR BUS DRIVER [address] [place] [address] [facility] [address] [id number] Referral ID Status Reason Start Date Expiration Date Visits Requested Visits Authorized [id number] Authorized Auto-Generat ed Referral 11/08/2022 12/08/2023 1 [...] ABDOMINAL REAL TIME W/IMAGE LIMITED Ankita Green APRN.MOTOR BUS DRIVER [address] [place] [address] Us Imaging Referral ID Status Reason Start Date Expiration Date V isits Requested Visits Authorized [id number] Closed Auto-Generate d Referral 11/08/2022 12/08/2023 1 1 [facility] for referral (narrative)* Diagnostic Procedure Only (Routine) [...] IMAG INC GB W/PHARMA INTERVENJ Ankita Green APRN.MOTOR BUS DRIVER [address] [place] [address] Molecular [facility] Functional Imaging [address] [place] [address] Referral ID Status Reason Start Date Expiration Date V isits Requested Visits Authorized [id number] Closed Auto-Generate d Referral 11/08/2022 12/08/2023 1 1 [facility] for referral (narrative)* Diagnostic Procedure Only (Routine) - Closed Specialty Diagnoses / Procedures Referred By Colleen t Referred To Contact BR IMAGING Diagnoses Encounter for screening mammogram for malignant neoplasm of breast Procedures CHANTELL SCREENING W CAROLYN SCREENING DIGITAL BREAST TOMOSYNTHESIS BI SCREENING MAMMOGRAPHY BI 2-VIEW BREAST INC CAD Jese Zheng DO [address] [place] [address] Br Imaging [address] [place] [address] Referral ID Status Reason Start Date Expiration Date V isits Requested Visits Authorized [id number] Closed Auto-Generate d Referral 07/24/2022 08/23/2023 1 1 [facility] for referral (narrative)* Diagnostic Procedure Only (Urgent) - Closed Specialty Diagnoses / Procedures Referred By Leanneac t Referred To Contact US IMAGING Diagnoses Nausea Pain of upper abdomen Type 2 diabetes mellitus with peripheral neuropathy (HCC) RUQ pain Gastroesophageal reflux disease, unspecified whether esophagitis present Abdominal bloating Procedures US ABD RIGHT UPPER QUADRANT US ABDOMINAL REAL TIME W/IMAGE LIMITED Ankita Green APRN.CNP [address] [place] [address] [place] [address] Referral ID Status Reason Start Date Expiration Date V isits Requested Visits Authorized [id number] Closed Auto-Generate d Referral 11/08/2022 12/08/2023 1 1 [facility] for referral (narrative)* Diagnostic Procedure Only (Urgent) - Outside PCP Specialty Diagnoses / Procedures Referred By Collene t Referred To [facility] Diagnoses Right leg swelling Right calf pain Procedures US LEG VEIN DVT UNL VAS LAB DUP-SCAN XTR VEINS UNILATERAL/LIMITED STUDY Jese Zheng DO [address] [place] [address] [facility] [place] [address] [place] [address] Referral ID Status Reason Start Date Expiration Date Visits Requested Visits Authorized [id number] Outside PCP Auto-Genera laureen Referral Patient Cleared - Admin/Chair man/Directo r advise to proceed or did not respond 05/27/2023 05/26/2024 1 1 [facility] for referral (narrative)* Diagnostic Procedure Only (Urgent) - Outside PCP Specialty Diagnoses / Procedures Referred By Colleen t Referred To Contact [facility] [place] Diagnoses Right leg swelling Right calf pain Procedures US LEG VEIN DVT UNL VAS LAB DUP-SCAN XTR VEINS UNILATERAL/LIMITED STUDY Jese Zheng DO [address] [place] [address] [address] Referral ID Status Reason Start Date Expiration Date Visits Requested Visits Authorized [id number] Outside PCP Auto-Genera laureen Referral Patient Cleared - Admin/Chair man/Directo r advise to proceed or did not respond 05/27/2023 05/26/2024 1 1 [facility] for referral (narrative)* Diagnostic Procedure Only (Routine) - Pending Review Specialty Diagnoses / Procedures Referred By Colleen coronado Referred To Contact BR IMAGING Diagnoses Encounter for screening mammogram for breast cancer Procedures CHANTELL SCREENING W CAROLYN SCREENING DIGITAL BREAST TOMOSYNTHESIS BI SCREENING MAMMOGRAPHY BI 2-VIEW BREAST INC CAD Jese Zheng DO [address] [place] [address] Br Imaging [address] [place] [address] Referral ID Status Reason Start Date Expiration Date Visits Requested Visits Authorized [id number] Pending Review Auto-Generat ed Referral 10/09/2023 11/07/2024 1 1 [facility] for referral (narrative)* Outpatient Procedure (Routine) - Authorized Specialty Diagnoses / Procedures Referred By Colleen t Referred To Contact [facility] Diagnoses Carotid atherosclerosis, bilateral Procedures US CAROTID ARTERIES [place]LEY VAS LAB DUPLEX SCAN EXTRACRANIAL ART COMPL BI STUDY Jese Zheng DO [address] [place] [address] [facility] [address] [place] [address] Referral ID Status Reason Start Date Expiration Date Visits Requested Visits Authorized [id number] Authorized Auto-Generat ed Referral 11/27/2023 11/26/2024 1 1 [facility] for referral (narrative)* Diagnostic Procedure Only (Routine) - Closed Specialty Diagnoses / Procedures Referred By Colleen t Referred To Contact BR IMAGING Diagnoses Encounter for screening mammogram for breast cancer Procedures CHANTELL SCREENING W CAROLYN SCREENING DIGITAL BREAST TOMOSYNTHESIS BI SCREENING MAMMOGRAPHY BI 2-VIEW BREAST INC CAD Jese Zheng, DO [address] [place] [address] Br Imaging [address] [place] [address] Referral ID Status Reason Start Date Expiration Date V isits Requested Visits Authorized [id number] Closed Auto-Generate d Referral 10/09/2023 11/07/2024 1 1 [facility] for referral (narrative)* Diagnostic Procedure Only (Routine) - Closed Specialty Diagnoses / Procedures Referred By Colleen t Referred To Contact XR IMAGING Diagnoses Injury of left thumb, initial encounter Injury of left wrist, initial encounter Procedures XR HAND GENERAL 3V PA/LAT/OBL LEFT RADEX HAND MINIMUM 3 VIEWS Jese Zheng DO [address] [place] [address] [place] [address] Referral ID Status Reason Start Date Expiration Date V isits Requested Visits Authorized [id number] Closed Auto-Generate d Referral 11/14/2021 12/14/2022 1 1 * Diagnostic Procedure Only (Routine) - Closed Specialty Diagnoses / Procedures Referred By Contac t Referred To Contact XR IMAGING Diagnoses Injury of left thumb, initial encounter Injury of left wrist, initial encounter Procedures XR WRIST GENERAL 3V PA/LAT/OBL LEFT RADEX WRIST COMPLETE MINIMUM 3 VIEWS Jese Zheng DO [address] [place] [address] [place] [address] Referral ID Status Reason Start Date Expiration Date V isits Requested Visits Authorized [id number] Closed Auto-Generate d Referral 11/14/2021 12/14/2022 1 1 [facility] for referral (narrative)* Diagnostic Procedure Only (Routine) - Closed Specialty Diagnoses / Procedures Referred By Contac t Referred To Contact XR IMAGING Diagnoses Ingrown left greater toenail Localized swelling of left foot Pain of left heel Injury of left heel, subsequent encounter Left foot pain Procedures XR FOOT GENERAL 3V AP/LAT/OBL LEFT RADEX FOOT COMPLETE MINIMUM 3 VIEWS Jese Zheng DO [address] [place] [address] [place] [address] Referral ID Status Reason Start Date Expiration Date V isits Requested Visits Authorized [id number] Closed Auto-Generate d Referral 12/30/2021 01/29/2023 1 1 [facility] for referral (narrative)* Diagnostic Procedure Only (Urgent) - Closed Specialty Diagnoses / Procedures Referred By Contac t Referred To Contact XR IMAGING Diagnoses Generalized abdominal pain Procedures XR ABDOMEN 2V ROUTINE SUPINE W UPRIGHT/DECUB/CTL RADIOLOGIC EXAM ABDOMEN 2 VIEWS Tamara Bauer APRN.CNP, DNP [address] [place] [address] [place] [address] Referral ID Status Reason Start Date Expiration Date V isits Requested Visits Authorized [id number] Closed Auto-Generate d Referral 04/10/2021 05/10/2022 1 1 [facility] for referral (narrative)No reason for referral information availableWCleveland Clinic Foundation Work Phone: Reason for visit Narrative* Diagnostic Procedure Only (Routine) - Closed Specialty Diagnoses / Procedures Referred By Contac t Referred To Contact BR IMAGING Diagnoses Encounter for screening mammogram for malignant neoplasm of breast Procedures CHANTELL SCREENING W CAROLYN SCREENING DIGITAL BREAST TOMOSYNTHESIS BI SCREENING MAMMOGRAPHY BI 2-VIEW BREAST INC CAD Jese Zheng, DO [address] [place] [address] Br Imaging [address] [place] [address] Referral ID Status Reason Start Date Expiration Date V isits Requested Visits Authorized [id number] Closed Auto-Generate d Referral 07/24/2022 08/23/2023 1 1 [facility] for visit Narrative* Diagnostic Procedure Only (Urgent) - Outside PCP Specialty Diagnoses / Procedures Referred By Colleen coronado Referred [facility] Diagnoses Right leg swelling Right calf pain Procedures US LEG VEIN DVT UNL VAS LAB DUP-SCAN XTR VEINS UNILATERAL/LIMITED STUDY Jese Zheng, DO [address] [place] [address] [facility] [address] [address] Referral ID Status Reason Start Date Expiration Date Visits Requested Visits Authorized [id number] Outside PCP Auto-Genera laureen Referral Patient Cleared - Admin/Chair man/Directo r advise to proceed or did not respond 05/27/2023 05/26/2024 1 1 [facility] for visit Narrative* Diagnostic Procedure Only (Routine) - Closed Specialty Diagnoses / Procedures Referred By Colleen coronado Referred To Contact BR IMAGING Diagnoses Encounter for screening mammogram for breast cancer Procedures CHANTELL SCREENING W CAROLYN SCREENING DIGITAL BREAST TOMOSYNTHESIS BI SCREENING MAMMOGRAPHY BI 2-VIEW BREAST INC CAD Jese Zheng, DO [address] [place] [address] Br Imaging [address] [place] [address] Referral ID Status Reason Start Date Expiration Date V isits Requested Visits Authorized [id number] Closed Auto-Generate d Referral 10/09/2023 11/07/2024 1 1 [facility] for visit Narrative* Diagnostic Procedure Only (Routine) - Closed Specialty Diagnoses / Procedures Referred By Colleen t Referred To Contact XR IMAGING Diagnoses Injury of left thumb, initial encounter Injury of left wrist, initial encounter Procedures XR HAND GENERAL 3V PA/LAT/OBL LEFT RADEX HAND MINIMUM 3 VIEWS Jese Zheng, DO [address] [place] [address] [place] [address] Referral ID Status Reason Start Date Expiration Date V isits Requested Visits Authorized [id number] Closed Auto-Generate d Referral 11/14/2021 12/14/2022 1 1 [facility] for visit Narrative* Diagnostic Procedure Only (Routine) - Closed Specialty Diagnoses / Procedures Referred By Contac t Referred To Contact XR IMAGING Diagnoses Ingrown left greater toenail Localized swelling of left foot Pain of left heel Injury of left heel, subsequent encounter Left foot pain Procedures XR FOOT GENERAL 3V AP/LAT/OBL LEFT RADEX FOOT COMPLETE MINIMUM 3 VIEWS Jese Zheng, DO [address] [place] [address] [place] [address] Referral ID Status Reason Start Date Expiration Date V isits Requested Visits Authorized [id number] Closed Auto-Generate d Referral 12/30/2021 01/29/2023 1 1 [facility] for visit Narrative* Diagnostic Procedure Only (Urgent) - Closed Specialty Diagnoses / Procedures Referred By Contac t Referred To Contact XR IMAGING Diagnoses Generalized abdominal pain Procedures XR ABDOMEN 2V ROUTINE SUPINE W UPRIGHT/DECUB/CTL RADIOLOGIC EXAM ABDOMEN 2 VIEWS Tamara Bauer, JAXSON.MOTOR BUS DRIVER, DNP [address] [place] [id number] [place] [address] Referral ID Status Reason Start Date Expiration Date V isits Requested Visits Authorized [id number] Closed Auto-Generate d Referral 04/10/2021 05/10/2022 1 1 [facility] for visit Narrative* Diagnostic Procedure Only (Routine) - Closed Specialty Diagnoses / Procedures Referred By Contac t Referred To Contact XR IMAGING Diagnoses Right hand pain Localized swelling of finger of right hand Procedures XR HAND GENERAL 3V PA/LAT/OBL RIGHT RADEX HAND MINIMUM 3 VIEWS Jese Zheng, DO [address] [place] [address] [place] [address] Referral ID Status Reason Start Date Expiration Date V isits Requested Visits Authorized [id number] Closed Auto-Generate d Referral 06/23/2024 07/23/2025 1 1 [facility] Advance Directives No Advanced Directives Records FoundDocuments on File Type Date Recorded Patient Benefits Clerk Expl anation Advance Directive(s) 05/24/2017 8:44 AM Advance Directive(s) 05/24/2017 1:50 PM Advance Directive(s) 05/24/2017 1:51 PM Advance Directive(s) 01/06/2016 1:17 PM Documents on File Type Date Recorded Patient Benefits Clerk Expl anation Advance Directive(s) 05/24/2017 8:44 AM Advance Directive(s) 05/24/2017 1:50 PM Advance Directive(s) 05/24/2017 1:51 PM Advance Directive(s) 01/06/2016 1:17 PM Documents on File Type Date Recorded Patient Benefits Clerk Expl anation Advance Directive(s) 05/24/2017 1:51 PM Documents on File Type Date Recorded Patient Benefits Clerk Expl anation Advance Directive(s) 05/24/2017 1:51 PM Advance Directive Response Recorded Date/ Time Advance Directives No January 19 9:36am Living Will No April 06, 2021 5:16pm Power of Bulb Planter No March 5:16pm Advance Directive Response Recorded Date/ Time Do you have a Healthcare Power of Bulb Planter? No February 22, 2025 6:09pm Advance Directives No January 19 9:36am Advance Directive Response Recorded Date/ Time Do you have a Healthcare Power of Bulb Planter? No February 22, 2025 9:44pm Advance Directives No January 19 9:36am Reason for Referral Specialty Diagnoses / Procedures Referred By Colleen coronado Referred To Contact CT IMAGING Diagnoses Adverse effect of treatment, subsequent encounter Procedures CT ABD/PEL WO IVCON CT ABD & PELVIS W/O CONTRAST Brandy Ramirez MD [address] [place] [address] Ct Imaging Referral ID Status Reason Start Date Expiration Date V isits Requested Visits Authorized [id number] Closed Auto-Generate d Referral 10/13/2021 12/12/2021 2 2 Specialty Diagnoses / Procedures Referred By Colleen coronado Referred To Contact Orthopedics Diagnoses Injury of left thumb, initial encounter Injury of left wrist, initial encounter Procedures CONSULT TO ORTHOPAEDICS OFFICE/OUTPATIENT NEW HIGH MDM 60-74 MINUTES Corrine Hartman, ENERGY BROKER.MOTOR BUS DRIVER [address] [place] [address] Referral ID Status Reason Start Date Expiration Date Visits Requested Visits Authorized [id number] Authorized PCP Requested Referral 11/20/2021 11/20/2022 1 1 Specialty Diagnoses / Procedures Referred By Contac t Referred To Contact Diagnoses Uncontrolled type 2 diabetes mellitus with hyperglycemia (HCC) Procedures CONSULT TO DIABETES EDUCATION OFFICE/OUTPATIENT [facility] 60-74 MINUTES Jsee Zheng, DO [address] [place] [address] Referral ID Status Reason Start Date Expiration Date Visits Requested Visits Authorized [id number] Authorized PCP Requested Referral 12/22/2021 12/22/2022 1 1 Specialty Diagnoses / Procedures Referred By Contac t Referred To Contact Jese Zheng, DO [address] [place] [address] Referral ID Status Reason Start Date Expiration Date V isits Requested Visits Authorized [id number] Pending Review 1 1 Specialty Diagnoses / Procedures Referred By Contac t Referred To Contact CT IMAGING Diagnoses Nausea Right flank pain RUQ pain Chronic RLQ pain Nausea and vomiting, unspecified vomiting type Procedures CT ABD/PEL WO IVCON CT ABD & PELVIS W/O CONTRAST Ankita Green, ENERGY BROKER.MOTOR BUS DRIVER [address] [place] [address] Ct Imaging Referral ID Status Reason Start Date Expiration Date Visits Requested Visits Authorized [id number] Pending Review Auto-Genera laureen Referral Patient Cleared - Admin/Chair man/Directo r advise to proceed 2 06/20/2023 2 2 Referral ID Status Reason Start Date Expiration Date Visits Re quested Visits Authorized [id number] Closed 1 1 Referral ID Status Reason Start Date Expiration Date Visits Re quested Visits Authorized [id number] Closed 1 1 Referral ID Status Reason Start Date Expiration Date Visits Re quested Visits Authorized [id number] Closed 1 1 Specialty Diagnoses / Procedures Referred By Contac t Referred To Contact CT IMAGING Diagnoses SOB (shortness of breath) Wheezing Pulmonary nodule Procedures CT CHEST WO IVCON DIAGNOSTIC COMPUTED TOMOGRAPHY THORAX W/O CNTRST Jese Zheng L, DO [address] [place] [address] Ct Imaging Referral ID Status Reason Start Date Expiration Date Visits Requested Visits Authorized [id number] Pending Review Auto-Generat ed Referral 02/19/2023 03/20/2024 1 1 Specialty Diagnoses / Procedures Referred By Contac t Referred To Contact CT IMAGING Diagnoses SOB (shortness of breath) Wheezing Pulmonary nodule Procedures CT CHEST WO IVCON DIAGNOSTIC COMPUTED TOMOGRAPHY THORAX W/O CNTRST Jese Zheng L, DO [address] [place] [address] [place] [address] Referral ID Status Reason Start Date Expiration Date V isits Requested Visits Authorized [id number] Denied Auto-Generat ed Referral Patient Cleared - Admin/Chairm an/Director advise to proceed or did not respond 02/19/2023 03/20/2024 1 0 Specialty Diagnoses / Procedures Referred By Contac t Referred To Contact CT IMAGING Diagnoses Nausea Right flank pain RUQ pain Chronic RLQ pain Nausea and vomiting, unspecified vomiting type Procedures CT ABD/PEL WO IVCON CT ABD & PELVIS W/O CONTRAST Ankita Green, JAXSON.MOTOR BUS DRIVER [address] [place] [address] [place] [address] Referral ID Status Reason Start Date Expiration Date V isits Requested Visits Authorized [id number] Denied Auto-Generat ed Referral Patient Cleared - Admin/Chairm an/Director advise to proceed or did not respond 05/21/2022 07/20/2022 2 0 Referral ID Status Reason Start Date Expiration Date V isits Requested Visits Authorized [id number] Pending Review 1 1 Referral ID Status Reason Start Date Expiration Date V isits Requested Visits Authorized [id number] Authorized 1 1 Specialty Diagnoses / Procedures Referred By Contac t Referred To Contact Orthopedics Diagnoses Right hand pain Procedures CONSULT TO ORTHOPAEDICS OFFICE/OUTPATIENT [facility] MDM 60 MINUTES Jese Zheng L, DO [address] [place] [address] Referral ID Status Reason Start Date Expiration Date V isits Requested Visits Authorized [id number] Closed PCP Requested Referral 07/17/2024 07/17/2025 1 [...] or prosecute any alcohol or drug abuse patient.[facility] HospitalIn the event this information is protected by the Federal Confidentiality of Alcohol and Drug Abuse Patient Records regulations: The Federal rules restrict any use of the information to criminally investigate or prosecute any alcohol or drug abuse patient.[facility]In the event this information is protected by the Federal Confidentiality of Alcohol and Drug Abuse Patient Records regulations: The Federal rules restrict any use of the information to criminally investigate or prosecute any alcohol or drug abuse patient.[facility] HospitalIn the event this information is protected by the Federal Confidentiality of Alcohol and Drug Abuse Patient Records regulations: The Federal rules restrict any use of the information to criminally investigate or prosecute any alcohol or drug abuse patient.[facility] HospitalIn the event this information is protected by the Federal Confidentiality of Alcohol and Drug Abuse Patient Records regulations: The Federal rules restrict any use of the information to criminally investigate or prosecute any alcohol or drug abuse patient.[facility] HospitalIn the event this information is protected by the Federal Confidentiality of Alcohol and Drug Abuse Patient Records regulations: The Federal rules restrict any use of the information to criminally investigate or prosecute any alcohol or drug abuse patient.[facility] HospitalIn the event this information is protected by the Federal Confidentiality of Alcohol and Drug Abuse Patient Records regulations: The Federal rules restrict any use of the information to criminally investigate or prosecute any alcohol or drug abuse patient.[facility] HospitalIn the event this information is protected by the Federal Confidentiality of Alcohol and Drug Abuse Patient Records regulations: The Federal rules restrict any use of the information to criminally investigate or prosecute any alcohol or drug abuse patient.[facility] HospitalIn the event this information is protected by the Federal Confidentiality of Alcohol and Drug Abuse Patient Records regulations: The Federal rules restrict any use of the information to criminally investigate or prosecute any alcohol or drug abuse patient.[facility] HospitalIn the event this information is protected by the Federal Confidentiality of Alcohol and Drug Abuse Patient Records regulations: The Federal rules restrict any use of the information to criminally investigate or prosecute any alcohol or drug abuse patient.[facility] HospitalIn the event this information is protected by the Federal Confidentiality of Alcohol and Drug Abuse Patient Records regulations: The Federal rules restrict any use of the information to criminally investigate or prosecute any alcohol or drug abuse patient.[facility] HospitalIn the event this information is protected by the Federal Confidentiality of Alcohol and Drug Abuse Patient Records regulations: The Federal rules restrict any use of the information to criminally investigate or prosecute any alcohol or drug abuse patient.[facility] HospitalIn the event this information is protected by the Federal Confidentiality of Alcohol and Drug Abuse Patient Records regulations: The Federal rules restrict any use of the information to criminally investigate or prosecute any alcohol or drug abuse patient.[facility] HospitalIn the event this information is protected by the Federal Confidentiality of Alcohol and Drug Abuse Patient Records regulations: The Federal rules restrict any use of the information to criminally investigate or prosecute any alcohol or drug abuse patient.[facility] HospitalIn the event this information is protected by the Federal Confidentiality of Alcohol and Drug Abuse Patient Records regulations: The Federal rules restrict any use of the information to criminally investigate or prosecute any alcohol or drug abuse patient.[facility] HospitalIn the event this information is protected by the Federal Confidentiality of Alcohol and Drug Abuse Patient Records regulations: The Federal rules restrict any use of the information to criminally investigate or prosecute any alcohol or drug abuse patient.[facility] HospitalIn the event this information is protected by the Federal Confidentiality of Alcohol and Drug Abuse Patient Records regulations: The Federal rules restrict any use of the information to criminally investigate or prosecute any alcohol or drug abuse patient.[facility] HospitalIn the event this information is protected by the Federal Confidentiality of Alcohol and Drug Abuse Patient Records regulations: The Federal rules restrict any use of the information to criminally investigate or prosecute any alcohol or drug abuse patient.[facility] HospitalIn the event this information is protected by the Federal Confidentiality of Alcohol and Drug Abuse Patient Records regulations: The Federal rules restrict any use of the information to criminally investigate or prosecute any alcohol or drug abuse patient.[facility] HospitalIn the event this information is protected by the Federal Confidentiality of Alcohol and Drug Abuse Patient Records regulations: The Federal rules restrict any use of the information to criminally investigate or prosecute any alcohol or drug abuse patient.[facility] HospitalIn the event this information is protected by the Federal Confidentiality of Alcohol and Drug Abuse Patient Records regulations: The Federal rules restrict any use of the information to criminally investigate or prosecute any alcohol or drug abuse patient.[facility] HospitalIn the event this information is protected by the Federal Confidentiality of Alcohol and Drug Abuse Patient Records regulations: The Federal rules restrict any use of the information to criminally investigate or prosecute any alcohol or drug abuse patient.[facility] HospitalIn the event this information is protected by the Federal Confidentiality of Alcohol and Drug Abuse Patient Records regulations: The Federal rules restrict any use of the information to criminally investigate or prosecute any alcohol or drug abuse patient.[facility] HospitalIn the event this information is protected by the Federal Confidentiality of Alcohol and Drug Abuse Patient Records regulations: The Federal rules restrict any use of the information to criminally investigate or prosecute any alcohol or drug abuse patient.[facility] HospitalIn the event this information is protected by the Federal Confidentiality of Alcohol and Drug Abuse Patient Records regulations: The Federal rules restrict any use of the information to criminally investigate or prosecute any alcohol or drug abuse patient.[facility] HospitalIn the event this information is protected by the Federal Confidentiality of Alcohol and Drug Abuse Patient Records regulations: The Federal rules restrict any use of the information to criminally investigate or prosecute any alcohol or drug abuse patient.[facility] HospitalIn the event this information is protected by the Federal Confidentiality of Alcohol and Drug Abuse Patient Records regulations: The Federal rules restrict any use of the information to criminally investigate or prosecute any alcohol or drug abuse patient.[facility] HospitalIn the event this information is protected by the Federal Confidentiality of Alcohol and Drug Abuse Patient Records regulations: The Federal rules restrict any use of the information to criminally investigate or prosecute any alcohol or drug abuse patient.[facility] HospitalIn the event this information is protected by the Federal Confidentiality of Alcohol and Drug Abuse Patient Records regulations: The Federal rules restrict any use of the information to criminally investigate or prosecute any alcohol or drug abuse patient.[facility] HospitalIn the event this information is protected [...] or prosecute any alcohol or drug abuse patient.[facility] HospitalIn the event this information is protected by the Federal Confidentiality of Alcohol and Drug Abuse Patient Records regulations: The Federal rules restrict any use of the information to criminally investigate or prosecute any alcohol or drug abuse patient.[facility] HospitalIn the event this information is protected by the Federal Confidentiality of Alcohol and Drug Abuse Patient Records regulations: The Federal rules restrict any use of the information to criminally investigate or prosecute any alcohol or drug abuse patient.[facility] HospitalIn the event this information is protected by the Federal Confidentiality of Alcohol and Drug Abuse Patient Records regulations: The Federal rules restrict any use of the information to criminally investigate or prosecute any alcohol or drug abuse patient.[facility] HospitalIn the event this information is protected by the Federal Confidentiality of Alcohol and Drug Abuse Patient Records regulations: The Federal rules restrict any use of the information to criminally investigate or prosecute any alcohol or drug abuse patient.[facility] HospitalIn the event this information is protected by the Federal Confidentiality of Alcohol and Drug Abuse Patient Records regulations: The Federal rules restrict any use of the information to criminally investigate or prosecute any alcohol or drug abuse patient.[facility] HospitalIn the event this information is protected by the Federal Confidentiality of Alcohol and Drug Abuse Patient Records regulations: The Federal rules restrict any use of the information to criminally investigate or prosecute any alcohol or drug abuse patient.[facility] HospitalIn the event this information is protected by the Federal Confidentiality of Alcohol and Drug Abuse Patient Records regulations: The Federal rules restrict any use of the information to criminally investigate or prosecute any alcohol or drug abuse patient.[facility] HospitalIn the event this information is protected by the Federal Confidentiality of Alcohol and Drug Abuse Patient Records regulations: The Federal rules restrict any use of the information to criminally investigate or prosecute any alcohol or drug abuse patient.[facility] HospitalIn the event this information is protected by the Federal Confidentiality of Alcohol and Drug Abuse Patient Records regulations: The Federal rules restrict any use of the information to criminally investigate or prosecute any alcohol or drug abuse patient.[facility] HospitalIn the event this information is protected by the Federal Confidentiality of Alcohol and Drug Abuse Patient Records regulations: The Federal rules restrict any use of the information to criminally investigate or prosecute any alcohol or drug abuse patient.[facility] HospitalIn the event this information is protected by the Federal Confidentiality of Alcohol and Drug Abuse Patient Records regulations: The Federal rules restrict any use of the information to criminally investigate or prosecute any alcohol or drug abuse patient.[facility] HospitalIn the event this information is protected by the Federal Confidentiality of Alcohol and Drug Abuse Patient Records regulations: The Federal rules restrict any use of the information to criminally investigate or prosecute any alcohol or drug abuse patient.[facility] HospitalIn the event this information is protected by the Federal Confidentiality of Alcohol and Drug Abuse Patient Records regulations: The Federal rules restrict any use of the information to criminally investigate or prosecute any alcohol or drug abuse patient.[facility] HospitalIn the event this information is protected by the Federal Confidentiality of Alcohol and Drug Abuse Patient Records regulations: The Federal rules restrict any use of the information to criminally investigate or prosecute any alcohol or drug abuse patient.[facility] HospitalIn the event this information is protected by the Federal Confidentiality of Alcohol and Drug Abuse Patient Records regulations: The Federal rules restrict any use of the information to criminally investigate or prosecute any alcohol or drug abuse patient.[facility] HospitalIn the event this information is protected by the Federal Confidentiality of Alcohol and Drug Abuse Patient Records regulations: The Federal rules restrict any use of the information to criminally investigate or prosecute any alcohol or drug abuse patient.[facility] HospitalIn the event this information is protected by the Federal Confidentiality of Alcohol and Drug Abuse Patient Records regulations: The Federal rules restrict any use of the information to criminally investigate or prosecute any alcohol or drug abuse patient.[facility] HospitalIn the event this information is protected by the Federal Confidentiality of Alcohol and Drug Abuse Patient Records regulations: The Federal rules restrict any use of the information to criminally investigate or prosecute any alcohol or drug abuse patient.[facility] HospitalIn the event this information is protected by the Federal Confidentiality of Alcohol and Drug Abuse Patient Records regulations: The Federal rules restrict any use of the information to criminally investigate or prosecute any alcohol or drug abuse patient.[facility] HospitalIn the event this information is protected by the Federal Confidentiality of Alcohol and Drug Abuse Patient Records regulations: The Federal rules restrict any use of the information to criminally investigate or prosecute any alcohol or drug abuse patient.[facility] HospitalIn the event this information is protected by the Federal Confidentiality of Alcohol and Drug Abuse Patient Records regulations: The Federal rules restrict any use of the information to criminally investigate or prosecute any alcohol or drug abuse patient.[facility] HospitalIn the event this information is protected by the Federal Confidentiality of Alcohol and Drug Abuse Patient Records regulations: The Federal rules restrict any use of the information to criminally investigate or prosecute any alcohol or drug abuse patient.[facility] HospitalIn the event this information is protected by the Federal Confidentiality of Alcohol and Drug Abuse Patient Records regulations: The Federal rules restrict any use of the information to criminally investigate or prosecute any alcohol or drug abuse patient.[facility] HospitalIn the event this information is protected by the Federal Confidentiality of Alcohol and Drug Abuse Patient Records regulations: The Federal rules restrict any use of the information to criminally investigate or prosecute any alcohol or drug abuse patient.[facility] HospitalIn the event this information is protected by the Federal Confidentiality of Alcohol and Drug Abuse Patient Records regulations: The Federal rules restrict any use of the information to criminally investigate or prosecute any alcohol or drug abuse patient.[facility] HospitalIn the event this information is protected by the Federal Confidentiality of Alcohol and Drug Abuse Patient Records regulations: The Federal rules restrict any use of the information to criminally investigate or prosecute any alcohol or drug abuse patient.[facility] HospitalIn the event this information is protected by the Federal Confidentiality of Alcohol and Drug Abuse Patient Records regulations: The Federal rules restrict any use of the information to criminally investigate or prosecute any alcohol or drug abuse patient.[facility] HospitalIn the event this information is protected by the Federal Confidentiality of Alcohol and Drug Abuse Patient Records regulations: The Federal rules restrict any use of the information to criminally investigate or prosecute any alcohol or drug abuse patient.[facility] HospitalIn the event this information is protected by the Federal Confidentiality of Alcohol and Drug Abuse Patient Records regulations: The Federal rules restrict any use of the information to criminally investigate or prosecute any alcohol or drug abuse patient.[facility] HospitalIn the event this information is protected by the Federal Confidentiality of Alcohol and Drug Abuse Patient Records regulations: The Federal rules restrict any use of the information to criminally investigate or prosecute any alcohol or drug abuse patient.[facility] HospitalIn the event this information is protected by the Federal Confidentiality of Alcohol and Drug Abuse Patient Records regulations: The Federal rules restrict any use of the information to criminally investigate or prosecute any alcohol or drug abuse patient.[facility] HospitalIn the event this information is protected by the Federal Confidentiality of Alcohol and Drug Abuse Patient Records regulations: The Federal rules restrict any use of the information to criminally investigate or prosecute any alcohol or drug abuse patient.[facility] HospitalIn the event this information is protected by the Federal Confidentiality of Alcohol and Drug Abuse Patient Records regulations: The Federal rules restrict any use of the information to criminally investigate or prosecute any alcohol or drug abuse patient.[facility] HospitalIn the event this information is protected by the Federal Confidentiality of Alcohol and Drug Abuse Patient Records regulations: The Federal rules restrict any use of the information to criminally investigate or prosecute any alcohol or drug abuse patient.[facility] HospitalIn the event this information is protected by the Federal Confidentiality of Alcohol and Drug Abuse Patient Records regulations: The Federal rules restrict any use of the information to criminally investigate or prosecute any alcohol or drug abuse patient.[facility] HospitalIn the event this information is protected by the Federal Confidentiality of Alcohol and Drug Abuse Patient Records regulations: The Federal rules restrict any use of the information to criminally investigate or prosecute any alcohol or drug abuse patient.[facility] HospitalIn the event this information is protected by the Federal Confidentiality of Alcohol and Drug Abuse Patient Records regulations: The Federal rules restrict any use of the information to criminally investigate or prosecute any alcohol or drug abuse patient.[facility] HospitalIn the event this information is protected by the Federal Confidentiality of Alcohol and Drug Abuse Patient Records regulations: The Federal rules restrict any use of the information to criminally investigate or prosecute any alcohol or drug abuse patient.[facility] HospitalIn the event this information is protected by the Federal Confidentiality of Alcohol and Drug Abuse Patient Records regulations: The Federal rules restrict any use of the information to criminally investigate or prosecute any alcohol or drug abuse patient.[facility] HospitalIn the event this information is protected by the Federal Confidentiality of Alcohol and Drug Abuse Patient Records regulations: The Federal rules restrict any use of the information to criminally investigate or prosecute any alcohol or drug abuse patient.[facility] HospitalIn the event this information is protected by the Federal Confidentiality of Alcohol and Drug Abuse Patient Records regulations: The Federal rules restrict any use of the information to criminally investigate or prosecute any alcohol or drug abuse patient.[facility] HospitalIn the event this information is protected by the Federal Confidentiality of Alcohol and Drug Abuse Patient Records regulations: The Federal rules restrict any use of the information to criminally investigate or prosecute any alcohol or drug abuse patient.[facility] HospitalIn the event this information is protected by the Federal Confidentiality of Alcohol and Drug Abuse Patient Records regulations: The Federal rules restrict any use of the information to criminally investigate or prosecute any alcohol or drug abuse patient.[facility] HospitalIn the event this information is protected by the Federal Confidentiality of Alcohol and Drug Abuse Patient Records regulations: The Federal rules restrict any use of the information to criminally investigate or prosecute any alcohol or drug abuse patient.[facility] HospitalIn the event this information is protected by the Federal Confidentiality of Alcohol and Drug Abuse Patient Records regulations: The Federal rules restrict any use of the information to criminally investigate or prosecute any alcohol or drug abuse patient.[facility] HospitalIn the event this information is protected by the Federal Confidentiality of Alcohol and Drug Abuse Patient Records regulations: The Federal rules restrict any use of the information to criminally investigate or prosecute any alcohol or drug abuse patient.[facility] HospitalIn the event this information is protected by the Federal Confidentiality of Alcohol and Drug Abuse Patient Records regulations: The Federal rules restrict any use of the information to criminally investigate or prosecute any alcohol or drug abuse patient.[facility] HospitalIn the event this information is protected by the Federal Confidentiality of Alcohol and Drug Abuse Patient Records regulations: The Federal rules restrict any use of the information to criminally investigate or prosecute any alcohol or drug abuse patient.[facility] HospitalIn the event this information is protected [...] or prosecute any alcohol or drug abuse patient.[facility] HospitalIn the event this information is protected by the Federal Confidentiality of Alcohol and Drug Abuse Patient Records regulations: The Federal rules restrict any use of the information to criminally investigate or prosecute any alcohol or drug abuse patient.[facility] HospitalIn the event this information is protected by the Federal Confidentiality of Alcohol and Drug Abuse Patient Records regulations: The Federal rules restrict any use of the information to criminally investigate or prosecute any alcohol or drug abuse patient.[facility] HospitalIn the event this information is protected by the Federal Confidentiality of Alcohol and Drug Abuse Patient Records regulations: The Federal rules restrict any use of the information to criminally investigate or prosecute any alcohol or drug abuse patient.[facility] HospitalIn the event this information is protected by the Federal Confidentiality of Alcohol and Drug Abuse Patient Records regulations: The Federal rules restrict any use of the information to criminally investigate or prosecute any alcohol or drug abuse patient.[facility]In the event this information is protected by the Federal Confidentiality of Alcohol and Drug Abuse Patient Records regulations: The Federal rules restrict any use of the information to criminally investigate or prosecute any alcohol or drug abuse patient.[facility] HospitalIn the event this information is protected by the Federal Confidentiality of Alcohol and Drug Abuse Patient Records regulations: The Federal rules restrict any use of the information to criminally investigate or prosecute any alcohol or drug abuse patient.[facility] HospitalIn the event this information is protected by the Federal Confidentiality of Alcohol and Drug Abuse Patient Records regulations: The Federal rules restrict any use of the information to criminally investigate or prosecute any alcohol or drug abuse patient.[facility] HospitalIn the event this information is protected by the Federal Confidentiality of Alcohol and Drug Abuse Patient Records regulations: The Federal rules restrict any use of the information to criminally investigate or prosecute any alcohol or drug abuse patient.[facility] HospitalIn the event this information is protected by the Federal Confidentiality of Alcohol and Drug Abuse Patient Records regulations: The Federal rules restrict any use of the information to criminally investigate or prosecute any alcohol or drug abuse patient.[facility] HospitalIn the event this information is protected by the Federal Confidentiality of Alcohol and Drug Abuse Patient Records regulations: The Federal rules restrict any use of the information to criminally investigate or prosecute any alcohol or drug abuse patient.[facility] HospitalIn the event this information is protected by the Federal Confidentiality of Alcohol and Drug Abuse Patient Records regulations: The Federal rules restrict any use of the information to criminally investigate or prosecute any alcohol or drug abuse patient.[facility] HospitalIn the event this information is protected by the Federal Confidentiality of Alcohol and Drug Abuse Patient Records regulations: The Federal rules restrict any use of the information to criminally investigate or prosecute any alcohol or drug abuse patient.[facility] HospitalIn the event this information is protected by the Federal Confidentiality of Alcohol and Drug Abuse Patient Records regulations: The Federal rules restrict any use of the information to criminally investigate or prosecute any alcohol or drug abuse patient.[facility] HospitalIn the event this information is protected by the Federal Confidentiality of Alcohol and Drug Abuse Patient Records regulations: The Federal rules restrict any use of the information to criminally investigate or prosecute any alcohol or drug abuse patient.[facility] HospitalIn the event this information is protected by the Federal Confidentiality of Alcohol and Drug Abuse Patient Records regulations: The Federal rules restrict any use of the information to criminally investigate or prosecute any alcohol or drug abuse patient.[facility] HospitalIn the event this information is protected by the Federal Confidentiality of Alcohol and Drug Abuse Patient Records regulations: The Federal rules restrict any use of the information to criminally investigate or prosecute any alcohol or drug abuse patient.[facility] HospitalIn the event this information is protected by the Federal Confidentiality of Alcohol and Drug Abuse Patient Records regulations: The Federal rules restrict any use of the information to criminally investigate or prosecute any alcohol or drug abuse patient.[facility] HospitalIn the event this information is protected by the Federal Confidentiality of Alcohol and Drug Abuse Patient Records regulations: The Federal rules restrict any use of the information to criminally investigate or prosecute any alcohol or drug abuse patient.[facility] HospitalIn the event this information is protected by the Federal Confidentiality of Alcohol and Drug Abuse Patient Records regulations: The Federal rules restrict any use of the information to criminally investigate or prosecute any alcohol or drug abuse patient.[facility] HospitalIn the event this information is protected by the Federal Confidentiality of Alcohol and Drug Abuse Patient Records regulations: The Federal rules restrict any use of the information to criminally investigate or prosecute any alcohol or drug abuse patient.[facility] HospitalIn the event this information is protected by the Federal Confidentiality of Alcohol and Drug Abuse Patient Records regulations: The Federal rules restrict any use of the information to criminally investigate or prosecute any alcohol or drug abuse patient.[facility] HospitalIn the event this information is protected by the Federal Confidentiality of Alcohol and Drug Abuse Patient Records regulations: The Federal rules restrict any use of the information to criminally investigate or prosecute any alcohol or drug abuse patient.[facility] HospitalIn the event this information is protected by the Federal Confidentiality of Alcohol and Drug Abuse Patient Records regulations: The Federal rules restrict any use of the information to criminally investigate or prosecute any alcohol or drug abuse patient.[facility] HospitalIn the event this information is protected by the Federal Confidentiality of Alcohol and Drug Abuse Patient Records regulations: The Federal rules restrict any use of the information to criminally investigate or prosecute any alcohol or drug abuse patient.[facility] HospitalIn the event this information is protected by the Federal Confidentiality of Alcohol and Drug Abuse Patient Records regulations: The Federal rules restrict any use of the information to criminally investigate or prosecute any alcohol or drug abuse patient.[facility] HospitalIn the event this information is protected by the Federal Confidentiality of Alcohol and Drug Abuse Patient Records regulations: The Federal rules restrict any use of the information to criminally investigate or prosecute any alcohol or drug abuse patient.[facility] HospitalIn the event this information is protected by the Federal Confidentiality of Alcohol and Drug Abuse Patient Records regulations: The Federal rules restrict any use of the information to criminally investigate or prosecute any alcohol or drug abuse patient.[facility] HospitalIn the event this information is protected by the Federal Confidentiality of Alcohol and Drug Abuse Patient Records regulations: The Federal rules restrict any use of the information to criminally investigate or prosecute any alcohol or drug abuse patient.[facility] HospitalIn the event this information is protected by the Federal Confidentiality of Alcohol and Drug Abuse Patient Records regulations: The Federal rules restrict any use of the information to criminally investigate or prosecute any alcohol or drug abuse patient.[facility] HospitalIn the event this information is protected by the Federal Confidentiality of Alcohol and Drug Abuse Patient Records regulations: The Federal rules restrict any use of the information to criminally investigate or prosecute any alcohol or drug abuse patient.[facility] HospitalIn the event this information is protected by the Federal Confidentiality of Alcohol and Drug Abuse Patient Records regulations: The Federal rules restrict any use of the information to criminally investigate or prosecute any alcohol or drug abuse patient.[facility] HospitalIn the event this information is protected by the Federal Confidentiality of Alcohol and Drug Abuse Patient Records regulations: The Federal rules restrict any use of the information to criminally investigate or prosecute any alcohol or drug abuse patient.[facility] HospitalIn the event this information is protected by the Federal Confidentiality of Alcohol and Drug Abuse Patient Records regulations: The Federal rules restrict any use of the information to criminally investigate or prosecute any alcohol or drug abuse patient.[facility] HospitalIn the event this information is protected by the Federal Confidentiality of Alcohol and Drug Abuse Patient Records regulations: The Federal rules restrict any use of the information to criminally investigate or prosecute any alcohol or drug abuse patient.[facility] HospitalIn the event this information is protected by the Federal Confidentiality of Alcohol and Drug Abuse Patient Records regulations: The Federal rules restrict any use of the information to criminally investigate or prosecute any alcohol or drug abuse patient.[facility] HospitalIn the event this information is protected by the Federal Confidentiality of Alcohol and Drug Abuse Patient Records regulations: The Federal rules restrict any use of the information to criminally investigate or prosecute any alcohol or drug abuse patient.[facility] HospitalIn the event this information is protected by the Federal Confidentiality of Alcohol and Drug Abuse Patient Records regulations: The Federal rules restrict any use of the information to criminally investigate or prosecute any alcohol or drug abuse patient.[facility] HospitalIn the event this information is protected by the Federal Confidentiality of Alcohol and Drug Abuse Patient Records regulations: The Federal rules restrict any use of the information to criminally investigate or prosecute any alcohol or drug abuse patient.[facility] HospitalIn the event this information is protected by the Federal Confidentiality of Alcohol and Drug Abuse Patient Records regulations: The Federal rules restrict any use of the information to criminally investigate or prosecute any alcohol or drug abuse patient.[facility] HospitalIn the event this information is protected by the Federal Confidentiality of Alcohol and Drug Abuse Patient Records regulations: The Federal rules restrict any use of the information to criminally investigate or prosecute any alcohol or drug abuse patient.[facility] HospitalIn the event this information is protected by the Federal Confidentiality of Alcohol and Drug Abuse Patient Records regulations: The Federal rules restrict any use of the information to criminally investigate or prosecute any alcohol or drug abuse patient.[facility] HospitalIn the event this information is protected by the Federal Confidentiality of Alcohol and Drug Abuse Patient Records regulations: The Federal rules restrict any use of the information to criminally investigate or prosecute any alcohol or drug abuse patient.[facility] HospitalIn the event this information is protected by the Federal Confidentiality of Alcohol and Drug Abuse Patient Records regulations: The Federal rules restrict any use of the information to criminally investigate or prosecute any alcohol or drug abuse patient.[facility] HospitalIn the event this information is protected by the Federal Confidentiality of Alcohol and Drug Abuse Patient Records regulations: The Federal rules restrict any use of the information to criminally investigate or prosecute any alcohol or drug abuse patient.[facility] HospitalIn the event this information is protected by the Federal Confidentiality of Alcohol and Drug Abuse Patient Records regulations: The Federal rules restrict any use of the information to criminally investigate or prosecute any alcohol or drug abuse patient.[facility] HospitalIn the event this information is protected by the Federal Confidentiality of Alcohol and Drug Abuse Patient Records regulations: The Federal rules restrict any use of the information to criminally investigate or prosecute any alcohol or drug abuse patient.[facility] HospitalIn the event this information is protected by the Federal Confidentiality of Alcohol and Drug Abuse Patient Records regulations: The Federal rules restrict any use of the information to criminally investigate or prosecute any alcohol or drug abuse patient.[facility] HospitalIn the event this information is protected by the Federal Confidentiality of Alcohol and Drug Abuse Patient Records regulations: The Federal rules restrict any use of the information to criminally investigate or prosecute any alcohol or drug abuse patient.[facility] HospitalIn the event this information is protected [...] or prosecute any alcohol or drug abuse patient.[facility] HospitalIn the event this information is protected by the Federal Confidentiality of Alcohol and Drug Abuse Patient Records regulations: The Federal rules restrict any use of the information to criminally investigate or prosecute any alcohol or drug abuse patient.[facility] HospitalIn the event this information is protected by the Federal Confidentiality of Alcohol and Drug Abuse Patient Records regulations: The Federal rules restrict any use of the information to criminally investigate or prosecute any alcohol or drug abuse patient.[facility] HospitalIn the event this information is protected by the Federal Confidentiality of Alcohol and Drug Abuse Patient Records regulations: The Federal rules restrict any use of the information to criminally investigate or prosecute any alcohol or drug abuse patient.[facility] HospitalIn the event this information is protected by the Federal Confidentiality of Alcohol and Drug Abuse Patient Records regulations: The Federal rules restrict any use of the information to criminally investigate or prosecute any alcohol or drug abuse patient.[facility] HospitalIn the event this information is protected by the Federal Confidentiality of Alcohol and Drug Abuse Patient Records regulations: The Federal rules restrict any use of the information to criminally investigate or prosecute any alcohol or drug abuse patient.[facility] HospitalIn the event this information is protected by the Federal Confidentiality of Alcohol and Drug Abuse Patient Records regulations: The Federal rules restrict any use of the information to criminally investigate or prosecute any alcohol or drug abuse patient.[facility] HospitalIn the event this information is protected by the Federal Confidentiality of Alcohol and Drug Abuse Patient Records regulations: The Federal rules restrict any use of the information to criminally investigate or prosecute any alcohol or drug abuse patient.[facility] HospitalIn the event this information is protected by the Federal Confidentiality of Alcohol and Drug Abuse Patient Records regulations: The Federal rules restrict any use of the information to criminally investigate or prosecute any alcohol or drug abuse patient.[facility] HospitalIn the event this information is protected by the Federal Confidentiality of Alcohol and Drug Abuse Patient Records regulations: The Federal rules restrict any use of the information to criminally investigate or prosecute any alcohol or drug abuse patient.[facility] HospitalIn the event this information is protected by the Federal Confidentiality of Alcohol and Drug Abuse Patient Records regulations: The Federal rules restrict any use of the information to criminally investigate or prosecute any alcohol or drug abuse patient.[facility] HospitalIn the event this information is protected by the Federal Confidentiality of Alcohol and Drug Abuse Patient Records regulations: The Federal rules restrict any use of the information to criminally investigate or prosecute any alcohol or drug abuse patient.[facility] Reason for Visit (unrecogniz ed section and content) Reason Comments Diabetes Specialty Diagnoses / Procedures Referred By Contac t Referred To Contact FAMILY MEDICINE Diagnoses PCP follow up Procedures PCP follow up Jese Zheng, [address] [place] [address] Phone: tel: fax: Family [facility] [place] [address] [place] [address] Phone: tel: Referral ID Status Reason Start Date Expiration Date Visits Requested Visits Authorized [id number] Authorized Financial Clearance Required - Self Pay Patient Cleared - Qualified HCAP/FA MARIA EUGENIA Referral Complete 09/23/2024 12/22/2024 99 99 Reason Comments F/U 3 Month Specialty Diagnoses / Procedures Referred By Contac t Referred To Contact PHARMACY Diagnoses Type 2 diabetes mellitus without complications Procedures EST PHARMACY VISIT Self Pharm Med [facility] [address] [place] [address] Referral ID Status Reason Start Date Expiration Date V isits Requested Visits Authorized [id number] Closed OON/Self Pay Override 06/06/2023 07/21/2023 1 1 Reason Comments Follow Up Reason Comments Patient Question Reason Comments Radiology CT Specialty Diagnoses / Procedures [facility] To Contact CT [facility] Diagnoses Adverse effect of treatment, subsequent encounter Procedures CT ABD/PEL WO IVCON CT ABD & PELVIS W/O CONTRAST Brandy Ramirez MD [address] [place] [address] Ct Imaging Referral ID Status Reason Start Date Expiration Date V isits Requested Visits Authorized [id number] Closed Auto-Generate d Referral 10/13/2021 12/12/2021 2 [...] chills, cough Procedures EST SAME DAY Self Mtichel Carney MD [address] [place] [address] Referral ID Status Reason Start Date Expiration Date V isits Requested Visits Authorized [id number] Outside PCP 04/05/2023 07/04/2023 1 1 Reason Comments Results Covid Positive Paxlovid Specialty Diagnoses / Procedures Referred By Contac t Referred To Contact CT IMAGING Diagnoses SOB (shortness of breath) Wheezing Pulmonary nodule Procedures CT CHEST WO IVCON DIAGNOSTIC COMPUTED TOMOGRAPHY THORAX W/O CNTRST Jese Zheng, DO [address] [place] [address] [place] [address] Referral ID Status Reason Start Date Expiration Date V isits Requested Visits Authorized [id number] Denied Auto-Generat ed Referral Patient Cleared - Admin/Chairm an/Director advise to proceed or did not respond 02/19/2023 03/20/2024 1 0 Specialty Diagnoses / Procedures Referred By Contac t Referred To Contact CT IMAGING Diagnoses Nausea Right flank pain RUQ pain Chronic RLQ pain Nausea and vomiting, unspecified vomiting type Procedures CT ABD/PEL WO IVCON CT ABD & PELVIS W/O CONTRAST Ankita Green, [employer] [address] [place] [address] [place] [address] Referral ID Status Reason Start Date Expiration Date V isits Requested Visits Authorized [id number] Denied Auto-Generat ed Referral Patient Cleared - [...] IMAG INC GB W/PHARMA INTERVENJ Ankita Green, ENERGY BROKER.[employer] DRIVER [address] [place] [address] Molecular & Functional Imaging [address] [place] [address] Referral ID Status Reason Start Date Expiration Date V isits Requested Visits Authorized [id number] Closed Auto-Generate d Referral 11/08/2022 12/08/2023 1 [...] ABDOMINAL REAL TIME W/IMAGE LIMITED Ankita Green, ENERGY BROKER.[employer] [address] [place] [address] [place] [address] Referral ID Status Reason Start Date Expiration Date V isits Requested Visits Authorized [id number] Closed Auto-Generate d Referral 11/08/2022 12/08/2023 1 1 Reason Onset Date Comments F/U 3 Month Immunizations 05/27/2023 Flu vaccination Specialty Diagnoses / Procedures Referred By Contac t Referred To Contact Family Medicine / FAMILY MEDICINE Diagnoses SOB (shortness of breath) 3 Month follow up Procedures 4C EST Self Jese Zheng DO [address] [place] [address] Referral ID Status Reason Start Date Expiration Date Visits Re quested Visits Authorized [id number] Closed 05/27/2023 07/21/2023 1 1 Reason Comments Medication Problem Reason Comments Patient Update Referral ID Status Reason Start Date Expiration Date Visits Requested Visits Authorized [id number] Authorized OON/Self Pay Override 07/21/2023 3 3 Specialty Diagnoses / Procedures Referred By Contac t Referred To Contact PHARMACY Diagnoses Follow up for DM management Procedures EST Pharmacy Visit Self Pharm Med [facility] [address] [phone] Referral ID Status Reason Start Date Expiration Date V isits Requested Visits Authorized [id number] Closed OON/Self Pay Override Financial Clearance Required [...] Referred To Contact Radiology / [facility] Diagnoses ml Procedures XR CHEST Jese Zheng DO [address] [place] [address] Radio General [facility] [address] [address] [place] [address] Referral ID Status Reason Start Date Expiration Date Visits Re quested Visits Authorized [id number] Closed 02/19/2023 07/21/2023 1 1 Reason Comments Recheck Follow up from last visit- URI symptoms started again on Saturday Reason Comments Appointment Pharmacist Visit Res cheduling Reason Comments Patient Question Reason Comments New Specialty Diagnoses / Procedures Referred By Colleen coronado Referred To Contact Orthopedics Diagnoses Right hand pain Procedures CONSULT TO ORTHOPAEDICS OFFICE/OUTPATIENT NEW HIGH MDM 60 MINUTES Jese Zheng DO [address] [place] [address] Referral ID Status Reason Start Date Expiration Date V isits Requested Visits Authorized [id number] Closed PCP Requested Referral 07/17/2024 07/17/2025 1 1 Reason Onset Date Comments Refill Request 09/09/2024 Reason Onset Date Comments Refill Request 11/16/2024 Reason Onset Date Comments Refill Request 01/11/2025 Reason Comments Shortness of Breath Reason Comments Cough Wheezing Shortness of Breath Care Teams (unrecognized sec tion and content) Cold Press Loader Relationship Specialty Start Date End Date Jese Zheng DO [address] [place] [address] PCP - General Family Practice 10/07/13 [facility] [address] [facility] [place] [address] Pharmacist Pharmacy 04/30/18 Cold Press Loader Relationship Specialty Start Date End Date Jese Zheng DO [address] [place] [address] PCP - General Family Practice 10/07/13 [facility] [address] [place] [address] Pharmacist Pharmacy 04/30/18 Cold Press Loader Relationship Specialty Start Date End Date Jese Zheng, DO [address] [place] [address] PCP - General Family Practice 10/07/13 Ell[place], Shayan, [facility] [address] [place] [address] Pharmacist Pharmacy 04/30/18 Cold Press Loader Relationship Specialty Start Date End Date Jese Zheng, DO [address] [place] [address] PCP - General Family Practice 10/07/13 Leeanne Martinezily, [facility] [address] [place] [address] Pharmacist Pharmacy 04/30/18 Cold Press Loader Relationship Specialty Start Date End Date Jese Zheng, DO [address] [place] [address] PCP - General Family Practice 10/07/13 Leeanne Martinezily, [facility] [address] [place] [address] Pharmacist Pharmacy 04/30/18 Cold Press Loader Relationship Specialty Start Date End Date Jese Zheng, DO [address] [place] [address] PCP - General Family Practice 10/07/13 Leeanne Martinezily, [facility] [address] [place] [address] Pharmacist Pharmacy 04/30/18 Cold Press Loader Relationship Specialty Start Date End Date Jese Zheng, DO [address] [place] [address] PCP - General Family Practice 10/07/13 Leeanne Martinezily, [facility] [address] [place] [address] Pharmacist Pharmacy 04/30/18 Cold Press Loader Relationship Specialty Start Date End Date Jese Zheng, DO [address] [place] [address] PCP - General Family Practice 10/07/13 Leeanne Martinezily, [facility] [address] [place] [address] Pharmacist Pharmacy 04/30/18 Cold Press Loader Relationship Specialty Start Date End Date Jese Zheng, DO [address] [place] [address] PCP - General Family Practice 10/07/13 Shayan Martinez, [facility] [address] [place] [address] Pharmacist Pharmacy 04/30/18 Cold Press Loader Relationship Specialty Start Date End Date Jese Zheng, DO [address] [place] [address] PCP - General Family Practice 10/07/13 Shayan Martinez, [facility] [address] [place] [address] Pharmacist Pharmacy 04/30/18 Cold Press Loader Relationship Specialty Start Date End Date Jese Zheng, DO [address] [place] [address] PCP - General Family Practice 10/07/13 Shayan Martinez, [facility] [address] [place] [address] Pharmacist Pharmacy 04/30/18 Cold Press Loader Relationship Specialty Start Date End Date Jese Zheng, DO [address] [place] [address] PCP - General Family Practice 10/07/13 Shayan Martinez, [facility] [address] [place] [address] Pharmacist Pharmacy 04/30/18 Cold Press Loader Relationship Specialty Start Date End Date Jese Zhegn, DO [address] [place] [address] PCP - General Family Practice 10/07/13 [facility] [address] [place] [address] Pharmacist Pharmacy 04/30/18 Cold Press Loader Relationship Specialty Start Date End Date Jese Zheng, DO [address] [place] [address] PCP - General Family Practice 10/07/13 [facility] [address] [place] [address] Pharmacist Pharmacy 04/30/18 Cold Press Loader Relationship Specialty Start Date End Date Jese Zheng, DO [address] [place] [address] PCP - General Family Practice 10/07/13 Shayan MartinezSaint [facility] [address] [place] [address] Pharmacist Pharmacy 04/30/18 Cold Press Loader Relationship Specialty Start Date End Date Jese Zheng, DO [address] [place] [address] PCP - General Family Practice 10/07/13 Shayan MartinezSaint [facility] [address] [place] [address] Pharmacist Pharmacy 04/30/18 Cold Press Loader Relationship Specialty Start Date End Date Jese Zheng, DO [address] [place] [address] PCP - General Family Practice 10/07/13 Shayan MartinezSaint [facility] [address] [place] [address] Pharmacist Pharmacy 04/30/18 Cold Press Loader Relationship Specialty Start Date End Date Jese Zheng, DO [address] [place] [address] PCP - General Family Medicine 10/07/13 Shayan MartinezSaint [facility] [address] [place] [address] Pharmacist Pharmacy 04/30/18 Cold Press Loader Relationship Specialty Start Date End Date Jese Zheng, DO [address] [place] [address] PCP - General Family Medicine 10/07/13 Juan, ShayanSaint [facility] [address] [place] [address] Pharmacist Pharmacy 04/30/18 Cold Press Loader Relationship Specialty Start Date End Date Jese Zheng, DO [address] [place] [address] PCP - General Family Medicine 10/07/13 Shayan MartinezSaint [facility] [address] [place] [address] Pharmacist Pharmacy 04/30/18 Cold Press Loader Relationship Specialty Start Date End Date Jese Zheng, DO [address] [place] [address] PCP - General Family Medicine 10/07/13 JuanShayanSaint [facility] [address] [place] [address] Pharmacist Pharmacy 04/30/18 Cold Press Loader Relationship Specialty Start Date End Date Jese Zheng, DO [address] [place] [address] PCP - General Family Medicine 10/07/13 Shayan Martinez, [facility] [address] [place] [address] Pharmacist Pharmacy 04/30/18 Cold Press Loader Relationship Specialty Start Date End Date Jese Zheng, DO [address] [place] [address] PCP - General Family Medicine 10/07/13 EllsworthShayan, [facility] [address] [place] [address] Pharmacist Pharmacy 04/30/18 Cold Press Loader Relationship Specialty Start Date End Date Jese Zheng, DO [address] [place] [address] PCP - General Family Medicine 10/07/13 EllsworthLeeanne oliveraily, [facility] [address] [place] [address] Pharmacist Pharmacy 04/30/18 Cold Press Loader Relationship Specialty Start Date End Date Jese Zheng, DO [address] [place] [address] PCP - General Family Medicine 10/07/13 Shayan Martinez, [facility] [address] [place] [address] Pharmacist Pharmacy 04/30/18 Cold Press Loader Relationship Specialty Start Date End Date Jese Zheng, DO [address] [place] [address] PCP - General Family Medicine 10/07/13 Juan, Shayan, [facility] [address] [place] [address] Pharmacist Pharmacy 04/30/18 Cold Press Loader Relationship Specialty Start Date End Date Jese Zheng, DO [address] [place] [address] PCP - General Family Medicine 10/07/13 Shayan Martinez, [facility] [address] [place] [address] Pharmacist Pharmacy 04/30/18 Cold Press Loader Relationship Specialty Start Date End Date Jese Zheng, DO [address] [place] [address] PCP - General Family Medicine 10/07/13 EllsworthShayan, [facility] [address] [place] [address] Pharmacist Pharmacy 04/30/18 Cold Press Loader Relationship Specialty Start Date End Date Jese Zheng, DO [address] [place] [address] PCP - General Family Medicine 10/07/13 JuanShayan, [facility] [address] [place] [address] Pharmacist Pharmacy 04/30/18 Cold Press Loader Relationship Specialty Start Date End Date Jese Zheng, DO [address] [place] [address] PCP - General Family Medicine 10/07/13 Shayan Martinez, [facility] [address] [place] [address] Pharmacist Pharmacy 04/30/18 Cold Press Loader Relationship Specialty Start Date End Date Jese Zheng, DO [address] [place] [address] PCP - General Family Medicine 10/07/13 JuanShayan, [facility] [address] [place] [address] Pharmacist Pharmacy 04/30/18 Cold Press Loader Relationship Specialty Start Date End Date Jese Zheng, DO [address] [place] [address] PCP - General Family Medicine 10/07/13 EllsworthShayan, [facility] [address] [place] [address] Pharmacist Pharmacy 04/30/18 Cold Press Loader Relationship Specialty Start Date End Date Jese Zheng, DO [address] [place] [address] PCP - General Family Medicine 10/07/13 Ellsworth Shayan, [facility] [address] [place] [address] Pharmacist Pharmacy 04/30/18 Cold Press Loader Relationship Specialty Start Date End Date Jese Zheng, DO [address] [place] [address] PCP - General Family Medicine 10/07/13 Ellsworth Shayan, [facility] [address] [place] [address] Pharmacist Pharmacy 04/30/18 Cold Press Loader Relationship Specialty Start Date End Date Jese Zheng, DO [address] [place] [address] PCP - General Family Medicine 10/07/13 Ellsworth Shayan, [facility] [address] [place] [address] Pharmacist Pharmacy 04/30/18 Cold Press Loader Relationship Specialty Start Date End Date Jese Zheng, DO [address] [place] [address] PCP - General Family Medicine 10/07/13 Ellsworth Shayan, [facility] [address] [place] [address] Pharmacist Pharmacy 04/30/18 Cold Press Loader Relationship Specialty Start Date End Date Jese Zhneg DO [address] [place] [address] PCP - General Family Medicine 10/07/13 Ellsworth, Shayan, [facility] [address] [place] [address] Pharmacist Pharmacy 04/30/18 Team Status: Active Member Role Status Dates Dr. Jese Zheng , DO Family Provider Active Dr. Jese Zheng , Primary Care Provider Active Team Status: Inactive Member Role Status Dates Dr. Jese Zheng , DO Primary Care Provider Active Ankita Green ELEVATOR REPAIRER HELPER, ELEVATOR REPAIRER HELPER-C Attending Provider, Frankie morris Provider Active Cold Press Loader Relationship Specialty Start Date End Date Jese Zheng DO [address] [place] [address] PCP - General Family Medicine 10/07/13 EllsworthLeeanne oliveraily, [facility] [address] [place] [address] Pharmacist Pharmacy 04/30/18 Cold Press Loader Relationship Specialty Start Date End Date Jese Zheng DO [address] [place] [address] PCP - General Family Medicine 10/07/13 Shayan Martinez, [facility] [address] [place] [address] Pharmacist Pharmacy 04/30/18 Cold Press Loader Relationship Specialty Start Date End Date Jese Zheng DO [address] [place] [address] PCP - General Family Medicine 10/07/13 Ellsworth Shayan, [facility] [address] [place] [address] Pharmacist Pharmacy 04/30/18 Cold Press Loader Relationship Specialty Start Date End Date Jese Zheng DO [address] [place] [address] PCP - General Family Medicine 10/07/13 Leeanne Martinezily, [facility] [address] [place] [address] Pharmacist Pharmacy 04/30/18 Cold Press Loader Relationship Specialty Start Date End Date Jese Zheng DO [address] [place] [address] PCP - General Family Medicine 10/07/13 Shayan Martinez, [facility] [address] [place] [address] Pharmacist Pharmacy 04/30/18 Cold Press Loader Relationship Specialty Start Date End Date Jese Zheng DO [address] [place] [address] PCP - General Family Medicine 10/07/13 Shayan MartinezSaint [facility] [address] [place] [address] Pharmacist Pharmacy 04/30/18 Cold Press Loader Relationship Specialty Start Date End Date Jese Zheng DO [address] [place] [address] PCP - General Family Medicine 10/07/13 Shayan Martinez, [facility] [address] [place] [address] Pharmacist Pharmacy 04/30/18 Cold Press Loader Relationship Specialty Start Date End Date Jese Zheng DO [address] [place] [address] PCP - General Family Medicine 10/07/13 Shayan Martinez, [facility] [address] [place] [address] Pharmacist Pharmacy 04/30/18 Cold Press Loader Relationship Specialty Start Date End Date Jese Zheng DO [address] [place] [address] PCP - General Family Medicine 10/07/13 Leeanne Martinezily, [facility] [address] [place] [address] Pharmacist Pharmacy 04/30/18 Cold Press Loader Relationship Specialty Start Date End Date Jese Zheng DO [address] [place] [address] PCP - General Family Medicine 10/07/13 Shayan MartinezSaint [facility] [address] [place] [address] Pharmacist Pharmacy 04/30/18 Cold Press Loader Relationship Specialty Start Date End Date Jese Zheng DO [address] [place] [address] PCP - General Family Medicine 10/07/13 Susana Garcia, [facility] [address] [place] [address] Pharmacist Pharmacy 05/09/23 Cold Press Loader Relationship Specialty Start Date End Date Jese Zheng DO [address] [place] [address] PCP - General Family Medicine 10/07/13 Juan, Shayan, [facility] [address] [place] [address] Pharmacist Pharmacy 04/30/18 05/08/23 Cold Press Loader Relationship Specialty Start Date End Date Jese Zheng DO [address] [place] [address] PCP - General Family Medicine 10/07/13 Shayan Martinez, [facility] [address] [place] [address] Pharmacist Pharmacy 04/30/18 05/08/23 Cold Press Loader Relationship Specialty Start Date End Date Jese Zheng DO [address] [place] [address] PCP - General Family Medicine 10/07/13 Ellsworth, Shayan, [facility] [address] [place] [address] Pharmacist Pharmacy 04/30/18 05/08/23 Cold Press Loader Relationship Specialty Start Date End Date Jese Zheng DO [address] [place] [address] PCP - General Family Medicine 10/07/13 Ellsworth, Shayan, [facility] [address] [place] [address] Pharmacist Pharmacy 04/30/18 05/08/23 Cold Press Loader Relationship Specialty Start Date End Date Jese Zheng DO [address] [place] [address] PCP - General Family Medicine 10/07/13 Ellsworth Shayan, [facility] [address] [place] [address] Pharmacist Pharmacy 04/30/18 05/08/23 Cold Press Loader Relationship Specialty Start Date End Date Jese Zheng DO [address] [place] [address] PCP - General Family Medicine 10/07/13 Shayan Martinez, [facility] [address] [facility] [address] Pharmacist Pharmacy 04/30/18 05/08/23 Cold Press Loader Relationship Specialty Start Date End Date Jese Zheng DO [address] [facility] [place] [address] PCP - General Family Medicine 10/07/13 Shayan Martinez, [facility] [address] [facility] [place] [address] Pharmacist Pharmacy 04/30/18 05/08/23 Cold Press Loader Relationship Specialty Start Date End Date Jese Zheng DO [address] [place] [address] PCP - General Family Medicine 10/07/13 [place]ataDes[place]e [place] [address] [place] [address] Pharmacist Pharmacy 05/09/23 Cold Press Loader Relationship Specialty Start Date End Date Jese Zheng DO [address] [facility] [place] [address] PCP - General Family Medicine 10/07/13 Susana Garcia, [facility] [address] [place] [address] Pharmacist Pharmacy 05/09/23 Cold Press Loader Relationship Specialty Start Date End Date Jese Zheng DO [address] [place] [address] PCP - General Family Medicine 10/07/13 Susana Garcia, [facility] [address] [place] [address] Pharmacist Pharmacy 05/09/23 Cold Press Loader Relationship Specialty Start Date End Date Jese Zheng DO [address] [place] [address] PCP - General Family Medicine 10/07/13 [place] [address] [place] [address] Pharmacist Pharmacy 05/09/23 Cold Press Loader Relationship Specialty Start Date End Date Jese Zheng DO [address] [place] [address] PCP - General Family Medicine 10/07/13 [place] [address] [place] [address] Pharmacist Pharmacy 05/09/23 Cold Press Loader Relationship Specialty Start Date End Date Jese Zheng DO [address] [place] [address] PCP - General Family Medicine 10/07/13 [place] [address] [place] [address] Pharmacist Pharmacy 05/09/23 Cold Press Loader Relationship Specialty Start Date End Date Jese Zheng DO [address] [place] [address] PCP - General Family Medicine 10/07/13 [place] [address] [place] [address] Pharmacist Pharmacy 05/09/23 Cold Press Loader Relationship Specialty Start Date End Date Jese Zheng DO [address] [facility] [place] [address] PCP - General Family Medicine 10/07/13 Rupalvarichard SusanaMelissa [place] [address] [place] [address] Pharmacist Pharmacy 05/09/23 Cold Press Loader Relationship Specialty Start Date End Date Jese Zheng DO [address] [place] [address] PCP - General Family Medicine 10/07/13 [place] [address] [place] [address] Pharmacist Pharmacy 05/09/23 Cold Press Loader Relationship Specialty Start Date End Date Jese Zheng DO [address] [place] [address] PCP - General Family Medicine 10/07/13 [place] [address] [place] [address] Pharmacist Pharmacy 05/09/23 Cold Press Loader Relationship Specialty Start Date End Date Jese Zheng DO [address] [place] [address] PCP - General Family Medicine 10/07/13 [place] [address] [place] [address] Pharmacist Pharmacy 05/09/23 Cold Press Loader Relationship Specialty Start Date End Date Jese Zheng DO [address] [place] [address] PCP - General Family Medicine 10/07/13 JoseoReinataDesiree [place] [address] [place] [address] Pharmacist Pharmacy 05/09/23 Cold Press Loader Relationship Specialty Start Date End Date Jese Zheng DO [address] [place] [address] PCP - General Family Medicine 10/07/13 Reina GarciataDesiree [place] [address] [place] [address] Pharmacist Pharmacy 05/09/23 Cold Press Loader Relationship Specialty Start Date End Date Jese Zheng DO [address] [place] [address] PCP - General Family Medicine 10/07/13 Jamarcus GarciaiettaDesiree [place] [address] [place] [address] Pharmacist Pharmacy 05/09/23 Cold Press Loader Relationship Specialty Start Date End Date Jese Zheng DO [address] [place] [address] PCP - General Family Medicine 10/07/13 Reina GarciataSaint [facility] [address] [place] [address] Pharmacist Pharmacy 05/09/23 Cold Press Loader Relationship Specialty Start Date End Date Jese Zheng DO [address] [place] [address] PCP - General Family Medicine 10/07/13 Radha, SusanaDesiree [place] [address] [place] [address] Pharmacist Pharmacy 05/09/23 Cold Press Loader Relationship Specialty Start Date End Date Jese Zheng DO [address] [facility] [place] [address] PCP - General Family Medicine 10/07/13 [place] [address] [place] [address] Pharmacist Pharmacy 05/09/23 Cold Press Loader Relationship Specialty Start Date End Date Jese Zheng DO [address] [place] [address] PCP - General Family Medicine 10/07/13 [place] [address] [place] [address] Pharmacist Pharmacy 05/09/23 Cold Press Loader Relationship Specialty Start Date End Date Jese Zheng DO [address] [place] [address] PCP - General Family Medicine 10/07/13 Shayan Martinez, [facility] [address] [place] [address] Pharmacist Pharmacy 04/30/18 05/08/23 Cold Press Loader Relationship Specialty Start Date End Date Jese Zheng DO [address] [place] [address] PCP - General Family Medicine 10/07/13 [facility] [place] [place] [address] Pharmacist Pharmacy 05/09/23 Cold Press Loader Relationship Specialty Start Date End Date Jese Zheng DO [address] [place] [address] PCP - General Family Medicine 10/07/13 Shayan Martinez, [facility] [address] [place] [address] Pharmacist Pharmacy 04/30/18 05/08/23 Cold Press Loader Relationship Specialty Start Date End Date Jese Zheng DO [address] [place] [address] PCP - General Family Medicine 10/07/13 Ellsworth, Shayan, [facility] [address] [place] [address] Pharmacist Pharmacy 04/30/18 05/08/23 Cold Press Loader Relationship Specialty Start Date End Date Jese Zheng DO [address] [place] [address] PCP - General Family Medicine 10/07/13 Ellsworth, Shayan, [facility] [address] [place] [address] Pharmacist Pharmacy 04/30/18 05/08/23 Cold Press Loader Relationship Specialty Start Date End Date Jese Zheng DO [address] [place] [address] PCP - General Family Medicine 10/07/13 Shayan Martinez, [facility] [address] [place] [address] Pharmacist Pharmacy 04/30/18 05/08/23 Cold Press Loader Relationship Specialty Start Date End Date Jese Zheng DO [address] [place] [address] PCP - General Family Medicine 10/07/13 [place] [address] [place] [address] Pharmacist Pharmacy 05/09/23 Cold Press Loader Relationship Specialty Start Date End Date Jese Zheng DO [address] [place] [address] PCP - General Family Medicine 10/07/13 [place] [address] [place] [address] Pharmacist Pharmacy 05/09/23 Cold Press Loader Relationship Specialty Start Date End Date Jese Zheng DO [address] [place] [address] PCP - General Family Medicine 10/07/13 [place] [address] [place] [address] Pharmacist Pharmacy 05/09/23 Corrine Louise, JAXSON.MOTOR BUS DRIVER [address] [place] [address] Conduit Cleaner Family Medicine 06/28/24 Ankita Green, JAXSON.MOTOR [employer] DRIVER [address] [place] [address] Conduit Cleaner Family Medicine 06/28/24 Cold Press Loader Relationship Specialty Start Date End Date Jese Zheng DO [address] [place] [address] PCP - General Family Medicine 10/07/13 [place] [address] [place] [address] Pharmacist Pharmacy 05/09/23 Corrine Louise, ENERGY BROKER.MOTOR BUS DRIVER [address] [place] [address] [facility] 06/28/24 [facility] ElmerMacieAnkita, ENERGY BROKER.MOTOR BUS DRIVER [address] [place] [address] [facility] 06/28/24 Cold Press Loader Relationship Specialty Start Date End Date Jese Zheng DO [address] [place] [address] PCP - General Family Medicine 10/07/13 [place] [address] [place] [address] Pharmacist Pharmacy 05/09/23 Corrine Louise, ENERGY BROKER.MOTOR BUS DRIVER [address] [place] [address] [facility] 06/28/24 JulianaAnkita, ENERGY BROKER.MOTOR BUS DRIVER [address] [place] [address] [facility] 06/28/24 Cold Press Loader Relationship Specialty Start Date End Date Jese Zheng DO [address] [place] [address] PCP - General Family Medicine 10/07/13 [place] [address] [place] [address] Pharmacist Pharmacy 05/09/23 Corrine Louise, ENERGY BROKER.MOTOR BUS DRIVER [address] [place] [address] [facility] 06/28/24 [facility] ElmerAnkita, ENERGY BROKER.MOTOR BUS DRIVER [address] [place] [address] [facility] 06/28/24 Cold Press Loader Relationship Specialty Start Date End Date Jese Zheng DO [address] [place] [address] PCP - General Family Medicine 10/07/13 [place] GarciaDes[place]e [place] [address] [place] [address] Pharmacist Pharmacy 05/09/23 Corrine Louise, ENERGY BROKER.MOTOR BUS DRIVER [address] [place] [address] [facility] 06/28/24 [facility] ElmerAnkita, ENERGY BROKER.MOTOR BUS DRIVER [address] [place] [address] [facility]erOrthocol[facility] 06/28/24 Cold Press Loader Relationship Specialty Start Date End Date Jese Zheng DO [address] [place] [address] PCP - General Family Medicine 10/07/13 Susana GarciaDes[place]e [place] [address] [place] [address] Pharmacist Pharmacy 05/09/23 Corrine Louise, ENERGY BROKER.MOTOR BUS DRIVER [address] [place] [address] [facility]thocol[facility] 06/28/24 [facility] ElmerMacieAnkita, ENERGY BROKER.MOTOR BUS DRIVER [address] [place] [address] [facility] 06/28/24 Cold Press Loader Relationship Specialty Start Date End Date Jese Zheng DO [address] [place] [address] PCP - General Family Medicine 10/07/13 [place] [address] [place] [address] Pharmacist Pharmacy 05/09/23 Corrine Louise, ENERGY BROKER.MOTOR BUS DRIVER [address] [place] [address] [facility] 06/28/24 [facility] ElmerMacieAnkita, ENERGY BROKER.MOTOR BUS DRIVER [address] [place] [address] [facility] 06/28/24 Cold Press Loader Relationship Specialty Start Date End Date Jese Zheng DO [address] [place] [address] PCP - General Family Medicine 10/07/13 [place] [address] [place] [address] Pharmacist Pharmacy 05/09/23 [facility] ElmerAnkita, ENERGY BROKER.MOTOR BUS DRIVER [address] [place] [address] [facility] 06/28/24 Cold Press Loader Relationship Specialty Start Date End Date Jese Zheng DO [address] [facility] [place] [address] PCP - General Family Medicine 10/07/13 RupalvaReina leonTraci [place] [address] [place] [address] Pharmacist Pharmacy 05/09/23 Ankita Green, ENERGY BROKER.MOTOR BUS DRIVER [address] [facility] [place] [address] Conduit Cleaner Family Medicine 06/28/24 Cold Press Loader Relationship Specialty Start Date End Date Jese Zheng DO [address] [facility] [place] [address] PCP - General Family Medicine 10/07/13 [facility] [place] [place] [address] Pharmacist Pharmacy 05/09/23 Ankita Green, ENERGY BROKER.MOTOR BUS DRIVER [address] [facility] [place] [address] Conduit Cleaner Family Medicine 06/28/24 Cold Press Loader Relationship Specialty Start Date End Date Jese Zheng DO [address] [facility] [place] [address] PCP - General Family Medicine 10/07/13 [facility]richardJamarcusSusanaMelissa [place] [address] [place] [address] Pharmacist Pharmacy 05/09/23 Ankita Green, ENERGY BROKER.MOTOR BUS DRIVER [address] [facility] [place] [address] Conduit Cleaner Family Medicine 06/28/24 Natali Klein, ENERGY BROKER.MOTOR BUS DRIVER [address] [place] [address] [facility]erOrthocol[facility] 01/04/25 Cold Press Loader Relationship Specialty Start Date End Date Jese Zheng DO [address] [place] [address] PCP - General Family Medicine 10/07/13 [place] [address] [place] [address] Pharmacist Pharmacy 05/09/23 Ankita Green, ENERGY BROKER.MOTOR BUS DRIVER [address] [place] [address] [facility] 06/28/24 Natali Klein, ENERGY BROKER.MOTOR BUS DRIVER [address] [place] [address] Community [facility] 01/04/25 Cold Press Loader Relationship Specialty Start Date End Date Jese Zheng DO [address] [place] [address] PCP - General Family Medicine 10/07/13 [facility] SusanaMelissa [place] [address] [place] [address] Pharmacist Pharmacy 05/09/23 Ankita Green ENERGY BROKER.MOTOR BUS DRIVER [address] [place] [address] Conduit Cleaner Family Medicine 06/28/24 Natali Klein ENERGY BROKER.MOTOR BUS DRIVER [address] [place] [address] Conduit Cleaner Family [facility] 01/04/25 Cold Press Loader Relationship Specialty Start Date End Date Jese Zheng DO [address] [place] [address] PCP - General Family Medicine 10/07/13 [place] [address] [place] [address] Pharmacist Pharmacy 05/09/23 JulianaAnkita, ENERGY BROKER.MOTOR BUS DRIVER [address] [place], [place] [address] Conduit [employer]er [facility] 06/28/24 Natali Klein, ENERGY BROKER.MOTOR BUS DRIVER [address] [place] [address] [facility] 01/04/25 Cold Press Loader Relationship Specialty Start Date End Date Jese Zheng DO [address] [place] [address] PCP - General Family Medicine 10/07/13 [place] [address] [place] [address] Pharmacist Pharmacy 05/09/23 Ankita Green, ENERGY BROKER.MOTOR BUS DRIVER [address] [place] [address] Conduit Cleaner [facility] 06/28/24 Natali Klein, ENERGY BROKER.MOTOR BUS DRIVER [address] [place] [address] [facility] 01/04/25 Team Status: Active Member Role/Relationship [...] Attending Provider Active Start: February 22, 2025 Cold Press Loader Relationship Specialty Start Date End Date Jese Zheng DO [address] [place], [place] [id number] PCP - General Family Medicine 10/07/13 [facility] [address] [place], [place] [id number] Pharmacist Pharmacy 05/09/23 Ankita Green, ENERGY BROKER.MOTOR BUS DRIVER [address] [place], [place] [address] Conduit Cleaner [facility] 06/28/24 Natali Klein, ENERGY BROKER.MOTOR BUS DRIVER [address] [place], [place] [id number] Conduit [facility]er [facility] 01/04/25 Team Status: Inactive Member Role/Relationship [...] ugust 2024 End: February 25, 2025 Dr. Chte Sidhu MD Other Provider Active Sta rt: [...] Provider Active Start: A ugust 2024 Dr. hCet Sidhu MD Other Provider Active Sta rt: [...] section and content) DATE CREATED AUTHOR 09/20/2022 [facility] DATE CREATED AUTHOR AUTHOR'S ORGANIZ ATION 05/29/2023 [facility] DATE CREATED AUTHOR AUTHOR'S ORGANIZ ATION 04/17/2024 [facility] DATE CREATED AUTHOR AUTHOR'S ORGANIZ ATION 02/27/2025 [facility] DATE CREATED AUTHOR AUTHOR'S ORGANIZ ATION 02/27/2025 [facility] Goals (unrecognized section and content) Goals may [...] BE BASED ON THE PRIMARY CLINICAL RECORDS. [employer] provides no warranty or guarantee of the accuracy or completeness of information in this document.
--- OUTSIDE RECORDS SUMMARY | 2025-02-28 08:30 | XMS RPT_ITS | CCD ---
Author Organization [facility] Care Team Providers Care Lead Refinery Supervisor Name Role Phone Jese Zheng DO Primary Care Provider [facility], Shayan Unavailable ELENA SALMON Attending UnavailBRANDY Rowe Referring Unavailable JESE ZHENG Primary Care Unavailable Jese Zheng DO Primary Care Provider [facility], Shayan Unavailable [facility], Susana Unavailable [facility], Shayan Unavailable [employer] [facility], Susana Unavailable JESE ZHENG Referring Unavailable JESE ZHENG Primary Care Unavailable Jese Zheng DO Primary Care Provider JESE ZHENG Referring Unavailable JESE ZHENG Primary Care Unavailable Louise SWEATBAND SEPARATOR.PRESS SET UPCorrine Unavailable Juliana SWEATBAND SEPARATOR.Ankita URBINA Unavailable Sofia SWEATBAND SEPARATOR.Natali URBINA Unavailable Dr. Jese Zheng DO Primary [...] Javier DELACRUZ, Dr. Clarissa White Other Provider [facility] Jese Primary Care Unavailable Faye Mace Attending Unavailable Cook, Denton Admitting Unavailable Joyce, Denton Consulting Unavailable Winston, Kayenta Consulting Unavailable Capri Tucker Consulting Unavailable Justina Abraham Consulting Unavailable Juju Love Consulting Unavailable Gopal Talbot Consulting Unavailable Chet Sidhu Consulting Unavailable Amrita Woo Consulting Unavailable MARITZA CHAMORRO Consulting Unavailable Gayathri Jacome Consulting Unavailable Ellen Markham Consulting Unavailable Gus Mott Consulting Unavailable Mary Kay Dugan Consulting Unavailable Faye Mace Consulting Unavailable Winston, Elver Attending Unavailable [facility] Jese Primary Care Unavailable Joyce Denton Attending Unavailable Clarissa Herrera Cindy Attending Unavailable Javier, Clarissa Cindy Consulting Unavailable DoreenamClarissa Attending Unavailable [facility] Jese Primary Care Unavailable Cook, Denton Admitting [...] (2 sources) Albuterol Drug Allergy 7 Vomiting [facility] Cephalosporins (antibiotic) (2 sources) cefdinir Drug Allergy 9 Itching [facility] Work Phone: Opioid Agonists (2 sources) traMADol Drug Allergy 5 [facility] (20 sources) Albuterol; Translations: [ALBUTEROL SULFATE] Drug Allergy 7 Vomiting [facility] (20 sources) cefdinir; Translations: [CEFDINIR] Drug Allergy 9 Itching [facility] Work Phone: (20 sources) traMADol; Translations: [TRAMADOL] Drug Allergy 5 [facility] (20 sources) lac hydrin [Other] Propensity to adverse reactions 7 [facility] Work Phone: (2 sources) OTHER; Translations: [OTHER] Propensity to adverse reactions (disorder) 7 [facility] Repository (4 sources) Lactate; Translations: [ammonium lactate] Drug Allergy 1 Other [facility] (4 sources) Phentermine; Translations: [phentermine HCl] Drug Allergy 1 Chest tightness [facility] (1 source) Albuterol Drug Allergy 5 [facility] Repository (1 source) traMADol Drug Allergy 5 [facility] Repository Medications Current Medications Medication [...] 27, 2018 1:00am July 29, 2018 1:12am [id number] 200 actuat albuterol 0.09 mg/actuat metered dose [...] Start: 04-08-2014 take 2 tablets by mo [facility] twice daily Calcium Citrate-Vitamin D3 Active 2 TABLET PO TWICE A DAY April 08, 2014 12:00am Comment on above: TAKE 2 TABLETS BY MO [facility] TWICE DAILY Take 1 tablet by [facility] once daily. carvedilol 3.125 mg oral [...] Start: 05-05-2024 take 1 capsule by mo [facility] every week ergocalciferol 50,000 unit capsule (VITAMIN [...] Comment on above: Take 1 capsule by [facility] once daily. In the morning, for depression [...] (BAQSIMI) 3 mg/actuation nasal spray Use 1 [place] in the nose as needed for low blood sugar. May repeat after 15 minutes using a new device if there is no response. 1 Each 3 04/27/2022 Active Comment on above: Use 1 [place] in the n ose as needed for [...] Comment on above: Take 1 capsule by [facility] twice daily for 7 days. ofloxacin 3 [...] sharp s as directed. polyethylene glycol 3350 26230 mg powder for oral solution (20 sources) [...] Comment on above: Take 1 tablet by [facility] twice daily for 10 days. vitamin [...] Comment on above: Take 2 tablets by [facility] once daily. Completed/Discontinued Medications Medication Drug Class(es) [...] Comment on above: Take 1 capsule by [facility] once daily. cyclobenzaprine hydrochloride 10 mg oral [...] per enteric contrast guidelines Flash Glucose Scanning Copake (Freestyle Michi 10 Day Copake) [facility] (3 sources) Start: 9 End: 0 Flash Glucose Scanning [place] (Freestyle Michi 10 Day Copake) [facility] Discontinued 0 .ROUTE .MEDSUPPLY 1 0 May 11, 2019 12:00am February 26, 2020 4:35pm As directed Start: 05-11-2019 End: 02-26-2020 Flash Glucose Scanning Reade r (Freestyle Michi 10 Day Copake) [facility] Discontinued 0 .ROUTE .MEDSUPPLY 1 May 11, [...] scanning reader (FREESTYLE MICHI 14 DAY READER) [facility] (20 sources) Start: 11-23-2019 End: 03-25-2023 flash glucose scanning reader (FREESTYLE MICHI 14 DAY READER) [facility] 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 1 Each 0 11/23/2019 03/25/2023 Discontinued Start: 11-23-2019 flash glucose scanning reader (FREESTYLE MICHI 14 DAY READER) [facility] Indications: Uncontrolled type 2 diabetes mellitus with [...] on above: Take 4 tablets by mo [facility] as needed. For blood sugars less than [...] Comment on above: Take 2 tablets by [facility] twice daily for 14 days. 3 ml [...] 1:25pm Oral Medication Containers ( BD SHARPS EXECUTIVE ASSISTANT TO PRESIDENT) misc (20 sources) Start: 09-27-2016 End: 03-22-2022 Oral Medication Containers ( BD SHARPS EXECUTIVE ASSISTANT TO PRESIDENT) misc Use as instructed for DM supply disposal DM: yes Insulin: yes DX:11.9 1 Each 09/27/2016 03/22/2022 Discontinued Start: 09-27-2016 Oral Medicatio n Containers (BD SHARPS EXECUTIVE ASSISTANT TO PRESIDENT) misc Use as instructed for DM supply [...] scoop PRN cons tipation polyethylene glycol 3350 569348 mg / potassium chloride 2970 mg / sodium bicarbonate 6740 mg / sodium chloride 5860 mg / sodium sulfate 91448 mg powder for oral solution (11 sources) [...] (20 sources) Patient encounter status; 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 [facility] [address] BUN/CRE Normal 10-20 [facility] Comment on above: Result Comment: Canc elled via OM: Order cancelled - Patient discharged Performed By: #### L 100.0100, L500.2500 ####[facility] [address] [facility] [address] Calcium Normal 7.6-11.0 [facility] Comment on above: Result Comment: Canc elled via OM: Order cancelled - Patient discharged Performed By: #### L 100.0100, L500.2500 ####[facility] [address] [place], [address] CL Normal 98-108 [facility] Comment on above: Result Comment: Canc elled via OM: Order cancelled - Patient discharged Performed By: #### L 100.0100, L500.2500 ####[facility] [address] [facility] [address] CO2 Normal 21.0-32.0 [facility] Comment on above: Result Comment: Canc elled via OM: Order cancelled - Patient discharged Performed By: #### L 100.0100, L500.2500 ####[facility] [address] [place], [address] CREAT,SERUM Normal 0.70-1.20 [facility] Comment on above: Result Comment: Canc elled via OM: Order cancelled - Patient discharged Performed By: #### L 100.0100, L500.2500 ####[facility] [address] [place], [address] eGFR Normal >60 [facility] Comment on above: Result Comment: Canc elled via OM: Order cancelled - Patient discharged Performed By: #### L 100.0100, L500.2500 ####[facility] [address] [place], [address] GAP Normal 5-15 [facility] Comment on above: Result Comment: Canc elled via OM: Order cancelled - Patient discharged Performed By: #### L 100.0100, L500.2500 ####[facility] [address] [place], [address] GLU Normal 70-99 [facility] Comment on above: Result Comment: Canc elled via OM: Order cancelled - Patient discharged Performed By: #### L 100.0100, L500.2500 ####[facility] [address] [place], [address] Potassium Normal 3.3-5.1 [facility] Comment on above: Result Comment: Canc elled via OM: Order cancelled - Patient discharged Performed By: #### L 100.0100, L500.2500 ####[facility] [address] [place], [address] Basic Metabolic Profile (BMP) Normal 133-145 [facility] Comment on above: Result Comment: Canc elled via OM: Order cancelled - Patient discharged Performed By: #### L 100.0100, L500.2500 ####[facility] [address] [place], [address] CBC W/Diff, Automatedon 08-1 Absolute Neut Normal 2.0-7.7 [facility] Comment on above: Result Comment: Canc elled via OM: Order cancelled - Patient discharged Performed By: #### L 100.0100, L500.2500 ####[facility] [address] [place], [address] HCT Normal 37-47 [facility] Comment on above: Result Comment: Canc elled via OM: Order cancelled - Patient discharged Performed By: #### L 100.0100, L500.2500 ####[facility] [address] [place], [address] HGB Normal 12.0-15.0 [facility] Comment on above: Result Comment: Canc elled via OM: Order cancelled - Patient discharged Performed By: #### L 100.0100, L500.2500 ####[facility] [address] [place], [address] MCH Normal 27.0-32.0 [facility] Comment on above: Result Comment: Canc elled via OM: Order cancelled - Patient discharged Performed By: #### L 100.0100, L500.2500 ####[facility] [address] [place], [address] MCHC Normal 32-36 [facility] Comment on above: Result Comment: Canc elled via OM: Order cancelled - Patient discharged Performed By: #### L 100.0100, L500.2500 ####[facility] [address] [place], [address] MCV Normal 81-99 [facility] Comment on above: Result Comment: Canc elled via OM: Order cancelled - Patient discharged Performed By: #### L 100.0100, L500.2500 ####[facility] [address] [place], [address] NEUT% Normal 47-70 [facility] Comment on above: Result Comment: Canc elled via OM: Order cancelled - Patient discharged Performed By: #### L 100.0100, L500.2500 ####[facility] [address] [place], [address] PLT Normal 150-450 [facility] Comment on above: Result Comment: Canc elled via OM: Order cancelled - Patient discharged Performed By: #### L 100.0100, L500.2500 ####[facility] [address] [place], [address] RBC Normal 4.2-5.4 [facility] Comment on above: Result Comment: Canc elled via OM: Order cancelled - Patient discharged Performed By: #### L 100.0100, L500.2500 ####[facility] [address] [place], [address] RDW CV Normal 11.6-14.6 [facility] Comment on above: Result Comment: Canc elled via OM: Order cancelled - Patient discharged Performed By: #### L 100.0100, L500.2500 ####[facility] [address] [place], [address] RDW SD Normal 35.1-43.9 [facility] Comment on above: Result Comment: Canc elled via OM: Order cancelled - Patient discharged Performed By: #### L 100.0100, L500.2500 ####[facility] [address] [place], [address] WBC Normal 4.4-11.0 [facility] Comment on above: Result Comment: Canc elled via OM: Order cancelled - Patient discharged Performed By: #### L 100.0100, L500.2500 ####[facility] [address] [place], [address] Basic Metabolic Profile (BMP )on 03-03-2025 BUN Normal 4-19 [facility] Comment on above: Result Comment: Canc elled via OM: Order cancelled - Patient discharged Performed By: #### L 300.3900, L500.2500, L501.5200, L501.2300, L100.0100 #### [facility] [address] [place], [address] BUN/CRE Normal 10-20 [facility] Comment on above: Result Comment: Canc elled via OM: Order cancelled - Patient discharged Performed By: #### L 300.3900, L500.2500, L501.5200, L501.2300, L100.0100 #### [facility] [address] [place], [address] Calcium Normal 7.6-11.0 [facility] Comment on above: Result Comment: Canc elled via OM: Order cancelled - Patient discharged Performed By: #### L 300.3900, L500.2500, L501.5200, L501.2300, L100.0100 #### [facility] [address] [place], [address] CL Normal 98-108 [facility] Comment on above: Result Comment: Canc elled via OM: Order cancelled - Patient discharged Performed By: #### L 300.3900, L500.2500, L501.5200, L501.2300, L100.0100 #### [facility] [address] [place], [address] CO2 Normal 21.0-32.0 [facility] Comment on above: Result Comment: Canc elled via OM: Order cancelled - Patient discharged Performed By: #### L 300.3900, L500.2500, L501.5200, L501.2300, L100.0100 #### [facility] [address] [place], [address] CREAT,SERUM Normal 0.70-1.20 [facility] Comment on above: Result Comment: Canc elled via OM: Order cancelled - Patient discharged Performed By: #### L 300.3900, L500.2500, L501.5200, L501.2300, L100.0100 #### [facility] [address] [place], [address] eGFR Normal >60 [facility] Comment on above: Result Comment: Canc elled via OM: Order cancelled - Patient discharged Performed By: #### L 300.3900, L500.2500, L501.5200, L501.2300, L100.0100 #### [facility] [address] [place], [address] GAP Normal 5-15 [facility] Comment on above: Result Comment: Canc elled via OM: Order cancelled - Patient discharged Performed By: #### L 300.3900, L500.2500, L501.5200, L501.2300, L100.0100 #### [facility] [address] [place], [address] GLU Normal 70-99 [facility] Comment on above: Result Comment: Canc elled via OM: Order cancelled - Patient discharged Performed By: #### L 300.3900, L500.2500, L501.5200, L501.2300, L100.0100 #### [facility] [address] [place], [address] Potassium Normal 3.3-5.1 [facility] Comment on above: Result Comment: Canc elled via OM: Order cancelled - Patient discharged Performed By: #### L 300.3900, L500.2500, L501.5200, L501.2300, L100.0100 #### [facility] [address] [place], [address] Basic Metabolic Profile (BMP) Normal 133-145 [facility] Comment on above: Result Comment: Canc elled via OM: Order cancelled - Patient discharged Performed By: #### L 300.3900, L500.2500, L501.5200, L501.2300, L100.0100 #### [facility] [address] [place], [address] CBC W/Diff, Automatedon 08-1 Absolute Neut Normal 2.0-7.7 [facility] Comment on above: Result Comment: Canc elled via OM: Order cancelled - Patient discharged Performed By: #### L 300.3900, L500.2500, L501.5200, L501.2300, L100.0100 #### [facility] [address] [place], [address] HCT Normal 37-47 [facility] Comment on above: Result Comment: Canc elled via OM: Order cancelled - Patient discharged Performed By: #### L 300.3900, L500.2500, L501.5200, L501.2300, L100.0100 #### [facility] [address] [place], [address] HGB Normal 12.0-15.0 [facility] Comment on above: Result Comment: Canc elled via OM: Order cancelled - Patient discharged Performed By: #### L 300.3900, L500.2500, L501.5200, L501.2300, L100.0100 #### [facility] [address] [place], [address] MCH Normal 27.0-32.0 [facility] Comment on above: Result Comment: Canc elled via OM: Order cancelled - Patient discharged Performed By: #### L 300.3900, L500.2500, L501.5200, L501.2300, L100.0100 #### [facility] [address] [place], [address] MCHC Normal 32-36 [facility] Comment on above: Result Comment: Canc elled via OM: Order cancelled - Patient discharged Performed By: #### L 300.3900, L500.2500, L501.5200, L501.2300, L100.0100 #### [facility] [address] [place], [address] MCV Normal 81-99 [facility] Comment on above: Result Comment: Canc elled via OM: Order cancelled - Patient discharged Performed By: #### L 300.3900, L500.2500, L501.5200, L501.2300, L100.0100 #### [facility] [address] [place], [address] NEUT% Normal 47-70 [facility] Comment on above: Result Comment: Canc elled via OM: Order cancelled - Patient discharged Performed By: #### L 300.3900, L500.2500, L501.5200, L501.2300, L100.0100 #### [facility] [address] [place], [address] PLT Normal 150-450 [facility] Comment on above: Result Comment: Canc elled via OM: Order cancelled - Patient discharged Performed By: #### L 300.3900, L500.2500, L501.5200, L501.2300, L100.0100 #### [facility] [address] [place], [address] RBC Normal 4.2-5.4 [facility] Comment on above: Result Comment: Canc elled via OM: Order cancelled - Patient discharged Performed By: #### L 300.3900, L500.2500, L501.5200, L501.2300, L100.0100 #### [facility] [address] [place], [address] RDW CV Normal 11.6-14.6 [facility] Comment on above: Result Comment: Canc elled via OM: Order cancelled - Patient discharged Performed By: #### L 300.3900, L500.2500, L501.5200, L501.2300, L100.0100 #### [facility] [address] [place], [address] RDW SD Normal 35.1-43.9 [facility] Comment on above: Result Comment: Canc elled via OM: Order cancelled - Patient discharged Performed By: #### L 300.3900, L500.2500, L501.5200, L501.2300, L100.0100 #### [facility] [address] [place], [address] WBC Normal 4.4-11.0 [facility] Comment on above: Result Comment: Canc elled via OM: Order cancelled - Patient discharged Performed By: #### L 300.3900, L500.2500, L501.5200, L501.2300, L100.0100 #### [facility] [address] [place], [address] Basic Metabolic Profile (BMP )on 03-02-2025 BUN Normal 4-19 [facility] Comment on above: Result Comment: Canc elled via OM: Order cancelled - Patient discharged Performed By: #### L 500.2500, L100.0100 ####[facility] [address] [place], [address] BUN/CRE Normal 10-20 [facility] Comment on above: Result Comment: Canc elled via OM: Order cancelled - Patient discharged Performed By: #### L 500.2500, L100.0100 ####[facility] [address] [place], [address] Calcium Normal 7.6-11.0 [facility] Comment on above: Result Comment: Canc elled via OM: Order cancelled - Patient discharged Performed By: #### L 500.2500, L100.0100 ####[facility] [address] [place], [address] CL Normal 98-108 [facility] Comment on above: Result Comment: Canc elled via OM: Order cancelled - Patient discharged Performed By: #### L 500.2500, L100.0100 ####[facility] [address] [place], [address] CO2 Normal 21.0-32.0 [facility] Comment on above: Result Comment: Canc elled via OM: Order cancelled - Patient discharged Performed By: #### L 500.2500, L100.0100 ####[facility] [address] [place], [address] CREAT,SERUM Normal 0.70-1.20 [facility] Comment on above: Result Comment: Canc elled via OM: Order cancelled - Patient discharged Performed By: #### L 500.2500, L100.0100 ####[facility] [address] [place], [address] eGFR Normal >60 [facility] Comment on above: Result Comment: Canc elled via OM: Order cancelled - Patient discharged Performed By: #### L 500.2500, L100.0100 ####[facility] [address] [place], [address] GAP Normal 5-15 [facility] Comment on above: Result Comment: Canc elled via OM: Order cancelled - Patient discharged Performed By: #### L 500.2500, L100.0100 ####[facility] [address] [place], [address] GLU Normal 70-99 [facility] Comment on above: Result Comment: Canc elled via OM: Order cancelled - Patient discharged Performed By: #### L 500.2500, L100.0100 ####[facility] [address] [place], [address] Potassium Normal 3.3-5.1 [facility] Comment on above: Result Comment: Canc elled via OM: Order cancelled - Patient discharged Performed By: #### L 500.2500, L100.0100 ####[facility] [address] [place], [address] Basic Metabolic Profile (BMP) Normal 133-145 [facility] Comment on above: Result Comment: Canc elled via OM: Order cancelled - Patient discharged Performed By: #### L 500.2500, L100.0100 ####[facility] [address] [place], [address] CBC W/Diff, Automatedon 02-19 Absolute Neut Normal 2.0-7.7 [facility] Comment on above: Result Comment: Canc elled via OM: Order cancelled - Patient discharged Performed By: #### L 500.2500, L100.0100 ####[facility] [address] [place], [address] HCT Normal 37-47 [facility] Comment on above: Result Comment: Canc elled via OM: Order cancelled - Patient discharged Performed By: #### L 500.2500, L100.0100 ####[facility] [address] [place], [address] HGB Normal 12.0-15.0 [facility] Comment on above: Result Comment: Canc elled via OM: Order cancelled - Patient discharged Performed By: #### L 500.2500, L100.0100 ####[facility] [address] [place], [address] MCH Normal 27.0-32.0 [facility] Comment on above: Result Comment: Canc elled via OM: Order cancelled - Patient discharged Performed By: #### L 500.2500, L100.0100 ####[facility] [address] [place], [address] MCHC Normal 32-36 [facility] Comment on above: Result Comment: Canc elled via OM: Order cancelled - Patient discharged Performed By: #### L 500.2500, L100.0100 ####[facility] [address] [place], [address] MCV Normal 81-99 [facility] Comment on above: Result Comment: Canc elled via OM: Order cancelled - Patient discharged Performed By: #### L 500.2500, L100.0100 ####[facility] [address] [place], [address] NEUT% Normal 47-70 [facility] Comment on above: Result Comment: Canc elled via OM: Order cancelled - Patient discharged Performed By: #### L 500.2500, L100.0100 ####[facility] [address] [place], [address] PLT Normal 150-450 [facility] Comment on above: Result Comment: Canc elled via OM: Order cancelled - Patient discharged Performed By: #### L 500.2500, L100.0100 ####[facility] [address] [place], [address] RBC Normal 4.2-5.4 [facility] Comment on above: Result Comment: Canc elled via OM: Order cancelled - Patient discharged Performed By: #### L 500.2500, L100.0100 ####[facility] [address] [place], [address] RDW CV Normal 11.6-14.6 [facility] Comment on above: Result Comment: Canc elled via OM: Order cancelled - Patient discharged Performed By: #### L 500.2500, L100.0100 ####[facility] [address] [place], [address] RDW SD Normal 35.1-43.9 [facility] Comment on above: Result Comment: Canc elled via OM: Order cancelled - Patient discharged Performed By: #### L 500.2500, L100.0100 ####[facility] [address] [place], [address] WBC Normal 4.4-11.0 [facility] Comment on above: Result Comment: Canc elled via OM: Order cancelled - Patient discharged Performed By: #### L 500.2500, L100.0100 ####[facility] [address] [place], [address] Basic Metabolic Profile (BMP )on 03-01-2025 BUN Normal 4-19 [facility] Comment on above: Result Comment: Canc elled via OM: Order cancelled - Patient discharged Performed By: #### L 300.3900, L500.2500, L501.5200, L501.2300, L100.0100 #### [facility] [address] [place], [address] BUN/CRE Normal 10-20 [facility] Comment on above: Result Comment: Canc elled via OM: Order cancelled - Patient discharged Performed By: #### L 300.3900, L500.2500, L501.5200, L501.2300, L100.0100 #### [facility] [address] [place], [address] Calcium Normal 7.6-11.0 [facility] Comment on above: Result Comment: Canc elled via OM: Order cancelled - Patient discharged Performed By: #### L 300.3900, L500.2500, L501.5200, L501.2300, L100.0100 #### [facility] [address] [place], [address] CL Normal 98-108 [facility] Comment on above: Result Comment: Canc elled via OM: Order cancelled - Patient discharged Performed By: #### L 300.3900, L500.2500, L501.5200, L501.2300, L100.0100 #### [facility] [address] [place], [address] CO2 Normal 21.0-32.0 [facility] Comment on above: Result Comment: Canc elled via OM: Order cancelled - Patient discharged Performed By: #### L 300.3900, L500.2500, L501.5200, L501.2300, L100.0100 #### [facility] [address] [place], [address] CREAT,SERUM Normal 0.70-1.20 [facility] Comment on above: Result Comment: Canc elled via OM: Order cancelled - Patient discharged Performed By: #### L 300.3900, L500.2500, L501.5200, L501.2300, L100.0100 #### [facility] [address] [place], [address] eGFR Normal >60 [facility] Comment on above: Result Comment: Canc elled via OM: Order cancelled - Patient discharged Performed By: #### L 300.3900, L500.2500, L501.5200, L501.2300, L100.0100 #### [facility] [address] [place], [address] GAP Normal 5-15 [facility] Comment on above: Result Comment: Canc elled via OM: Order cancelled - Patient discharged Performed By: #### L 300.3900, L500.2500, L501.5200, L501.2300, L100.0100 #### [facility] [address] [place], [address] GLU Normal 70-99 [facility] Comment on above: Result Comment: Canc elled via OM: Order cancelled - Patient discharged Performed By: #### L 300.3900, L500.2500, L501.5200, L501.2300, L100.0100 #### [facility] [address] [place], [address] Potassium Normal 3.3-5.1 [facility] Comment on above: Result Comment: Canc elled via OM: Order cancelled - Patient discharged Performed By: #### L 300.3900, L500.2500, L501.5200, L501.2300, L100.0100 #### [facility] [address] [place], [address] Basic Metabolic Profile (BMP) Normal 133-145 [facility] Comment on above: Result Comment: Canc elled via OM: Order cancelled - Patient discharged Performed By: #### L 300.3900, L500.2500, L501.5200, L501.2300, L100.0100 #### [facility] [address] [place], [address] CBC W/Diff, Automatedon 08- Absolute Neut Normal 2.0-7.7 [facility] Comment on above: Result Comment: Canc elled via OM: Order cancelled - Patient discharged Performed By: #### L 300.3900, L500.2500, L501.5200, L501.2300, L100.0100 #### [facility] [address] [place], [address] HCT Normal 37-47 [facility] Comment on above: Result Comment: Canc elled via OM: Order cancelled - Patient discharged Performed By: #### L 300.3900, L500.2500, L501.5200, L501.2300, L100.0100 #### [facility] [address] [place], [address] HGB Normal 12.0-15.0 [facility] Comment on above: Result Comment: Canc elled via OM: Order cancelled - Patient discharged Performed By: #### L 300.3900, L500.2500, L501.5200, L501.2300, L100.0100 #### [facility] [address] [place], [address] MCH Normal 27.0-32.0 [facility] Comment on above: Result Comment: Canc elled via OM: Order cancelled - Patient discharged Performed By: #### L 300.3900, L500.2500, L501.5200, L501.2300, L100.0100 #### [facility] [address] [place], [address] MCHC Normal 32-36 [facility] Comment on above: Result Comment: Canc elled via OM: Order cancelled - Patient discharged Performed By: #### L 300.3900, L500.2500, L501.5200, L501.2300, L100.0100 #### [facility] [address] [place], [address] MCV Normal 81-99 [facility] Comment on above: Result Comment: Canc elled via OM: Order cancelled - Patient discharged Performed By: #### L 300.3900, L500.2500, L501.5200, L501.2300, L100.0100 #### [facility] [address] [place], [address] NEUT% Normal 47-70 [facility] Comment on above: Result Comment: Canc elled via OM: Order cancelled - Patient discharged Performed By: #### L 300.3900, L500.2500, L501.5200, L501.2300, L100.0100 #### [facility] [address] [place], [address] PLT Normal 150-450 [facility] Comment on above: Result Comment: Canc elled via OM: Order cancelled - Patient discharged Performed By: #### L 300.3900, L500.2500, L501.5200, L501.2300, L100.0100 #### [facility] [address] [place], [address] RBC Normal 4.2-5.4 [facility] Comment on above: Result Comment: Canc elled via OM: Order cancelled - Patient discharged Performed By: #### L 300.3900, L500.2500, L501.5200, L501.2300, L100.0100 #### [facility] [address] [place], [address] RDW CV Normal 11.6-14.6 [facility] Comment on above: Result Comment: Canc elled via OM: Order cancelled - Patient discharged Performed By: #### L 300.3900, L500.2500, L501.5200, L501.2300, L100.0100 #### [facility] [address] [place], [address] RDW SD Normal 35.1-43.9 [facility] Comment on above: Result Comment: Canc elled via OM: Order cancelled - Patient discharged Performed By: #### L 300.3900, L500.2500, L501.5200, L501.2300, L100.0100 #### [facility] [address] [place], [address] WBC Normal 4.4-11.0 [facility] Comment on above: Result Comment: Canc elled via OM: Order cancelled - Patient discharged Performed By: #### L 300.3900, L500.2500, L501.5200, L501.2300, L100.0100 #### [facility] [address] [place], [address] Basic Metabolic Profile (BMP )on 02-28-2025 BUN Normal 4-19 [facility] Comment on above: Result Comment: Canc elled via OM: Order cancelled - Patient discharged Performed By: #### L 100.0100, L500.2500 ####[facility] [address] [place], [address] BUN/CRE Normal 10-20 [facility] Comment on above: Result Comment: Canc elled via OM: Order cancelled - Patient discharged Performed By: #### L 100.0100, L500.2500 ####[facility] [address] [place], [address] Calcium Normal 7.6-11.0 [facility] Comment on above: Result Comment: Canc elled via OM: Order cancelled - Patient discharged Performed By: #### L 100.0100, L500.2500 ####[facility] [address] [place], [address] CL Normal 98-108 [facility] Comment on above: Result Comment: Canc elled via OM: Order cancelled - Patient discharged Performed By: #### L 100.0100, L500.2500 ####[facility] [address] [place], [address] CO2 Normal 21.0-32.0 [facility] Comment on above: Result Comment: Canc elled via OM: Order cancelled - Patient discharged Performed By: #### L 100.0100, L500.2500 ####[facility] [address] [place], [address] CREAT,SERUM Normal 0.70-1.20 [facility] Comment on above: Result Comment: Canc elled via OM: Order cancelled - Patient discharged Performed By: #### L 100.0100, L500.2500 ####[facility] [address] [place], [address] eGFR Normal >60 [facility] Comment on above: Result Comment: Canc elled via OM: Order cancelled - Patient discharged Performed By: #### L 100.0100, L500.2500 ####[facility] [address] [place], [address] GAP Normal 5-15 [facility] Comment on above: Result Comment: Canc elled via OM: Order cancelled - Patient discharged Performed By: #### L 100.0100, L500.2500 ####[facility] [address] [place], [address] GLU Normal 70-99 [facility] Comment on above: Result Comment: Canc elled via OM: Order cancelled - Patient discharged Performed By: #### L 100.0100, L500.2500 ####[facility] [address] [place], [address] Potassium Normal 3.3-5.1 [facility] Comment on above: Result Comment: Canc elled via OM: Order cancelled - Patient discharged Performed By: #### L 100.0100, L500.2500 ####[facility] [address] [place], [address] Basic Metabolic Profile (BMP) Normal 133-145 [facility] Comment on above: Result Comment: Canc elled via OM: Order cancelled - Patient discharged Performed By: #### L 100.0100, L500.2500 ####[facility] [address] [place], [address] CBC W/Diff, Automatedon 08-1 0-2024 Absolute Neut Normal 2.0-7.7 [facility] Comment on above: Result Comment: Canc elled via OM: Order cancelled - Patient discharged Performed By: #### L 100.0100, L500.2500 ####[facility] [address] [place], [address] HCT Normal 37-47 [facility] Comment on above: Result Comment: Canc elled via OM: Order cancelled - Patient discharged Performed By: #### L 100.0100, L500.2500 ####[facility] [address] [place], [address] HGB Normal 12.0-15.0 [facility] Comment on above: Result Comment: Canc elled via OM: Order cancelled - Patient discharged Performed By: #### L 100.0100, L500.2500 ####[facility] [address] [place], [address] MCH Normal 27.0-32.0 [facility] Comment on above: Result Comment: Canc elled via OM: Order cancelled - Patient discharged Performed By: #### L 100.0100, L500.2500 ####[facility] [address] [place], [address] MCHC Normal 32-36 [facility] Comment on above: Result Comment: Canc elled via OM: Order cancelled - Patient discharged Performed By: #### L 100.0100, L500.2500 ####[facility] [address] [place], [address] MCV Normal 81-99 [facility] Comment on above: Result Comment: Canc elled via OM: Order cancelled - Patient discharged Performed By: #### L 100.0100, L500.2500 ####[facility] [address] [place], [address] NEUT% Normal 47-70 [facility] Comment on above: Result Comment: Canc elled via OM: Order cancelled - Patient discharged Performed By: #### L 100.0100, L500.2500 ####[facility] [address] [place], [address] PLT Normal 150-450 [facility] Comment on above: Result Comment: Canc elled via OM: Order cancelled - Patient discharged Performed By: #### L 100.0100, L500.2500 ####[facility] [address] [place], [address] RBC Normal 4.2-5.4 [facility] Comment on above: Result Comment: Canc elled via OM: Order cancelled - Patient discharged Performed By: #### L 100.0100, L500.2500 ####[facility] [address] [place], [address] RDW CV Normal 11.6-14.6 [facility] Comment on above: Result Comment: Canc elled via OM: Order cancelled - Patient discharged Performed By: #### L 100.0100, L500.2500 ####[facility] [address] [place], [address] RDW SD Normal 35.1-43.9 [facility] Comment on above: Result Comment: Canc elled via OM: Order cancelled - Patient discharged Performed By: #### L 100.0100, L500.2500 ####[facility] [address] [place], [address] WBC Normal 4.4-11.0 [facility] Comment on above: Result Comment: Canc elled via OM: Order cancelled - Patient discharged Performed By: #### L 100.0100, L500.2500 ####[facility] [address] [place], [address] Basic Metabolic Profile (BMP )on 02-27-2025 BUN Normal 4-19 [facility] Comment on above: Result Comment: Canc elled via OM: Order cancelled - Patient discharged Performed By: #### L 300.3900, L500.2500, L501.5200, L501.2300, L100.0100 #### [facility] [address] [place], [address] BUN/CRE Normal 10-20 [facility] Comment on above: Result Comment: Canc elled via OM: Order cancelled - Patient discharged Performed By: #### L 300.3900, L500.2500, L501.5200, L501.2300, L100.0100 #### [facility] [address] [place], [address] Calcium Normal 7.6-11.0 [facility] Comment on above: Result Comment: Canc elled via OM: Order cancelled - Patient discharged Performed By: #### L 300.3900, L500.2500, L501.5200, L501.2300, L100.0100 #### [facility] [address] [place], [address] CL Normal 98-108 [facility] Comment on above: Result Comment: Canc elled via OM: Order cancelled - Patient discharged Performed By: #### L 300.3900, L500.2500, L501.5200, L501.2300, L100.0100 #### [facility] [address] [place], [address] CO2 Normal 21.0-32.0 [facility] Comment on above: Result Comment: Canc elled via OM: Order cancelled - Patient discharged Performed By: #### L 300.3900, L500.2500, L501.5200, L501.2300, L100.0100 #### [facility] [address] [place], [address] CREAT,SERUM Normal 0.70-1.20 [facility] Comment on above: Result Comment: Canc elled via OM: Order cancelled - Patient discharged Performed By: #### L 300.3900, L500.2500, L501.5200, L501.2300, L100.0100 #### [facility] [address] [place], [address] eGFR Normal >60 [facility] Comment on above: Result Comment: Canc elled via OM: Order cancelled - Patient discharged Performed By: #### L 300.3900, L500.2500, L501.5200, L501.2300, L100.0100 #### [facility] [address] [place], [address] GAP Normal 5-15 [facility] Comment on above: Result Comment: Canc elled via OM: Order cancelled - Patient discharged Performed By: #### L 300.3900, L500.2500, L501.5200, L501.2300, L100.0100 #### [facility] [address] [place], [address] GLU Normal 70-99 [facility] Comment on above: Result Comment: Canc elled via OM: Order cancelled - Patient discharged Performed By: #### L 300.3900, L500.2500, L501.5200, L501.2300, L100.0100 #### [facility] [address] [place], [address] Potassium Normal 3.3-5.1 [facility] Comment on above: Result Comment: Canc elled via OM: Order cancelled - Patient discharged Performed By: #### L 300.3900, L500.2500, L501.5200, L501.2300, L100.0100 #### [facility] [address] [place], [address] Basic Metabolic Profile (BMP) Normal 133-145 [facility] Comment on above: Result Comment: Canc elled via OM: Order cancelled - Patient discharged Performed By: #### L 300.3900, L500.2500, L501.5200, L501.2300, L100.0100 #### [facility] [address] [place], [address] CBC W/Diff, Automatedon 08-0 -2024 Absolute Neut Normal 2.0-7.7 [facility] Comment on above: Result Comment: Canc elled via OM: Order cancelled - Patient discharged Performed By: #### L 300.3900, L500.2500, L501.5200, L501.2300, L100.0100 #### [facility] [address] [place], [address] HCT Normal 37-47 [facility] Comment on above: Result Comment: Canc elled via OM: Order cancelled - Patient discharged Performed By: #### L 300.3900, L500.2500, L501.5200, L501.2300, L100.0100 #### [facility] [address] [place], [address] HGB Normal 12.0-15.0 [facility] Comment on above: Result Comment: Canc elled via OM: Order cancelled - Patient discharged Performed By: #### L 300.3900, L500.2500, L501.5200, L501.2300, L100.0100 #### [facility] [address] [place], [address] MCH Normal 27.0-32.0 [facility] Comment on above: Result Comment: Canc elled via OM: Order cancelled - Patient discharged Performed By: #### L 300.3900, L500.2500, L501.5200, L501.2300, L100.0100 #### [facility] [address] [place], [address] MCHC Normal 32-36 [facility] Comment on above: Result Comment: Canc elled via OM: Order cancelled - Patient discharged Performed By: #### L 300.3900, L500.2500, L501.5200, L501.2300, L100.0100 #### [facility] [address] [place], [address] MCV Normal 81-99 [facility] Comment on above: Result Comment: Canc elled via OM: Order cancelled - Patient discharged Performed By: #### L 300.3900, L500.2500, L501.5200, L501.2300, L100.0100 #### [facility] [address] [place], [address] NEUT% Normal 47-70 [facility] Comment on above: Result Comment: Canc elled via OM: Order cancelled - Patient discharged Performed By: #### L 300.3900, L500.2500, L501.5200, L501.2300, L100.0100 #### [facility] [address] [place], [address] PLT Normal 150-450 [facility] Comment on above: Result Comment: Canc elled via OM: Order cancelled - Patient discharged Performed By: #### L 300.3900, L500.2500, L501.5200, L501.2300, L100.0100 #### [facility] [address] [place], [address] RBC Normal 4.2-5.4 [facility] Comment on above: Result Comment: Canc elled via OM: Order cancelled - Patient discharged Performed By: #### L 300.3900, L500.2500, L501.5200, L501.2300, L100.0100 #### [facility] [address] [place], [address] RDW CV Normal 11.6-14.6 [facility] Comment on above: Result Comment: Canc elled via OM: Order cancelled - Patient discharged Performed By: #### L 300.3900, L500.2500, L501.5200, L501.2300, L100.0100 #### [facility] [address] [place], [address] RDW SD Normal 35.1-43.9 [facility] Comment on above: Result Comment: Canc elled via OM: Order cancelled - Patient discharged Performed By: #### L 300.3900, L500.2500, L501.5200, L501.2300, L100.0100 #### [facility] [address] [place], [address] WBC Normal 4.4-11.0 [facility] Comment on above: Result Comment: Canc elled via OM: Order cancelled - Patient discharged Performed By: #### L 300.3900, L500.2500, L501.5200, L501.2300, L100.0100 #### [facility] [address] [place], [address] Basic Metabolic Profile (BMP )on 02-26-2025 BUN Normal 4-19 [facility] Comment on above: Result Comment: Canc elled via OM: Order cancelled - Patient discharged Performed By: #### L 100.0100, L500.2500 #### [facility] [address] [place], [address] BUN/CRE Normal 10-20 [facility] Comment on above: Result Comment: Canc elled via OM: Order cancelled - Patient discharged Performed By: #### L 100.0100, L500.2500 #### [facility] [address] [place], [address] Calcium Normal 7.6-11.0 [facility] Comment on above: Result Comment: Canc elled via OM: Order cancelled - Patient discharged Performed By: #### L 100.0100, L500.2500 #### [facility] [address] [place], [address] CL Normal 98-108 [facility] Comment on above: Result Comment: Canc elled via OM: Order cancelled - Patient discharged Performed By: #### L 100.0100, L500.2500 #### [facility] [address] [place], [address] CO2 Normal 21.0-32.0 [facility] Comment on above: Result Comment: Canc elled via OM: Order cancelled - Patient discharged Performed By: #### L 100.0100, L500.2500 #### [facility] [address] [place], [address] CREAT,SERUM Normal 0.70-1.20 [facility] Comment on above: Result Comment: Canc elled via OM: Order cancelled - Patient discharged Performed By: #### L 100.0100, L500.2500 #### [facility] [address] [place], [address] eGFR Normal >60 [facility] Comment on above: Result Comment: Canc elled via OM: Order cancelled - Patient discharged Performed By: #### L 100.0100, L500.2500 #### [facility] [address] [place], [address] GAP Normal 5-15 [facility] Comment on above: Result Comment: Canc elled via OM: Order cancelled - Patient discharged Performed By: #### L 100.0100, L500.2500 #### [facility] [address] [place], [address] GLU Normal 70-99 [facility] Comment on above: Result Comment: Canc elled via OM: Order cancelled - Patient discharged Performed By: #### L 100.0100, L500.2500 #### [facility] [address] [place], [address] Potassium Normal 3.3-5.1 [facility] Comment on above: Result Comment: Canc elled via OM: Order cancelled - Patient discharged Performed By: #### L 100.0100, L500.2500 #### [facility] [address] [place], [address] Basic Metabolic Profile (BMP) Normal 133-145 [facility] Comment on above: Result Comment: Canc elled via OM: Order cancelled - Patient discharged Performed By: #### L 100.0100, L500.2500 #### [facility] [address] [place], [address] CBC W/Diff, Automatedon 08-0 -2024 Absolute Neut Normal 2.0-7.7 [facility] Comment on above: Result Comment: Canc elled via OM: Order cancelled - Patient discharged Performed By: #### L 100.0100, L500.2500 ####[facility] [address] [place], [address] HCT Normal 37-47 [facility] Comment on above: Result Comment: Canc elled via OM: Order cancelled - Patient discharged Performed By: #### L 100.0100, L500.2500 ####[facility] [address] [place], [address] HGB Normal 12.0-15.0 [facility] Comment on above: Result Comment: Canc elled via OM: Order cancelled - Patient discharged Performed By: #### L 100.0100, L500.2500 ####[facility] [address] [place], [address] MCH Normal 27.0-32.0 [facility] Comment on above: Result Comment: Canc elled via OM: Order cancelled - Patient discharged Performed By: #### L 100.0100, L500.2500 ####[facility] [address] [place], [address] MCHC Normal 32-36 [facility] Comment on above: Result Comment: Canc elled via OM: Order cancelled - Patient discharged Performed By: #### L 100.0100, L500.2500 ####[facility] [address] [place], [address] MCV Normal 81-99 [facility] Comment on above: Result Comment: Canc elled via OM: Order cancelled - Patient discharged Performed By: #### L 100.0100, L500.2500 ####[facility] [address] [place], [address] NEUT% Normal 47-70 [facility] Comment on above: Result Comment: Canc elled via OM: Order cancelled - Patient discharged Performed By: #### L 100.0100, L500.2500 ####[facility] [address] [place], [address] PLT Normal 150-450 [facility] Comment on above: Result Comment: Canc elled via OM: Order cancelled - Patient discharged Performed By: #### L 100.0100, L500.2500 ####[facility] [address] [place], [address] RBC Normal 4.2-5.4 [facility] Comment on above: Result Comment: Canc elled via OM: Order cancelled - Patient discharged Performed By: #### L 100.0100, L500.2500 ####[facility] [address] [place], [address] RDW CV Normal 11.6-14.6 [facility] Comment on above: Result Comment: Canc elled via OM: Order cancelled - Patient discharged Performed By: #### L 100.0100, L500.2500 ####[facility] [address] [place], [address] RDW SD Normal 35.1-43.9 [facility] Comment on above: Result Comment: Canc elled via OM: Order cancelled - Patient discharged Performed By: #### L 100.0100, L500.2500 ####[facility] [address] [place], [address] WBC Normal 4.4-11.0 [facility] Comment on above: Result Comment: Canc elled via OM: Order cancelled - Patient discharged Performed By: #### L 100.0100, L500.2500 ####[facility] [address] [place], [address] Absolute lymphocyte countOrd ered By: Clarissa Herrera on 02-25-2025 Lymphocytes Auto (Unsp spec) [#/Vol] 2.42 10*3/uL 0.83-4.51 [facility] Absolute neutrophil countOrd ered By: Clarissa Herrera on 02-25-2025 Neutrophils (Bld) [#/Vol] 3.3 10*3/uL 2.0-7.7 [facility] Anion gap in Serum or Plasma Ordered By: Clarissa Herrera on 02-25-2025 Anion gap [Moles/Vol] 15 mmol/L 5-15 [facility] Automated lymphocyte count a s percentage of total leukocytesOrdered By: Clarissa Herrera on 02-25-2025 Lymphocytes/100 WBC Auto (Unsp spec) 36.3 % 19-41 [facility] BUN/creatinine ratioOrdered By: Clarissa Herrera on 02-25-2025 Urea nitrogen/Creatinine [Mass ratio] 15.1 mg/mg 10- [facility] Basic Metabolic Profile (BMP )on 02-25-2025 BUN/CRE 15.1 RATIO Normal - [facility] Comment on above: Performed By: #### L 300.3900, L500.2500, L501.5200, L501.2300, L100.0100 #### [facility] [address] [place], [address] Calcium [Mass/Vol] 9.2 mg/dL Normal 7.6-11.0 [facility] Comment on above: Performed By: #### L 300.3900, L500.2500, L501.5200, L501.2300, L100.0100 #### [facility] [address] [place], [address] Chloride [Moles/Vol] 108 mmol/L Normal 98-108 [facility] Comment on above: Performed By: #### L 300.3900, L500.2500, L501.5200, L501.2300, L100.0100 #### [facility] [address] [place], [address] CO2 [Moles/Vol] 17.7 mmol/L Low 21.0-32.0 [facility] Comment on above: Performed By: #### L 300.3900, L500.2500, L501.5200, L501.2300, L100.0100 #### [facility] [address] [place], [address] Creatinine [Mass/Vol] 0.70 mg/dL Normal 0.70-1.20 [facility] Comment on above: Performed By: #### L 300.3900, L500.2500, L501.5200, L501.2300, L100.0100 #### [facility] [address] [place], [address] ECRCL 100.46 ml/min Normal 50-250 [facility] Comment on above: Performed By: #### L 300.3900, L500.2500, L501.5200, L501.2300, L100.0100 #### [facility] [address] [place], [address] GAP 15 Normal 5-15 [facility] Comment on above: Performed By: #### L 300.3900, L500.2500, L501.5200, L501.2300, L100.0100 #### [facility] [address] [place], [address] GFR/1.73 sq M.predicted among non-blacks MDRD (S/P/Bld) [Vol rate/Area] 98 mL/min/{1.73_m2} Normal >60 [facility] Comment on above: Result Comment: mL/m in/1.73m2 CKD-EPI Creatinine Equation (2020) Performed By: #### L 300.3900, L500.2500, L501.5200, L501.2300, L100.0100 #### [facility] [address] [place], [address] Glucose [Mass/Vol] 126 mg/dL High 70-99 [facility] Comment on above: Performed By: #### L 300.3900, L500.2500, L501.5200, L501.2300, L100.0100 #### [facility] [address] [place], [address] Potassium [Moles/Vol] 4.2 mmol/L Normal 3.3-5.1 [facility] Comment on above: Result Comment: Hemo lysis present, Results??could be affected. ?? Performed By: #### L 300.3900, L500.2500, L501.5200, L501.2300, L100.0100 #### [facility] [address] [place], [address] Sodium [Moles/Vol] 140 mmol/L Normal 133-145 [facility] Comment on above: Performed By: #### L 300.3900, L500.2500, L501.5200, L501.2300, L100.0100 #### [facility] [address] [place], [address] Urea nitrogen [Mass/Vol] 11 mg/dL Normal 4-19 [facility] Comment on above: Performed By: #### L 300.3900, L500.2500, L501.5200, L501.2300, L100.0100 #### [facility] [address] [place], [address] Basophil percentageOrdered B y: Clarissa Herrera on 02-25-2025 Basophils/100 WBC (Bld) 0.6 % 0-[address] [facility] Bedside Glucoseon 02-25-2025 FINGERSTICK GLU 155 mg/dL High 74-106 [facility] Comment on above: Result Comment: JASPER GEMENT OF PATIENT CARE PER NURSING PROTOCOL Performed By: #### L 300.3900, L500.2500, L501.5200, L501.2300, L100.0100 #### [facility] [address] [place], [address] FINGERSTICK GLU 132 mg/dL High 74-106 [facility] Comment on above: Result Comment: JASPER GEMENT OF PATIENT CARE PER NURSING PROTOCOL Performed By: #### L 501.080 #### [facility] [address] [place], [address] CBC W/Diff, Automatedon 08 Absolute Lymph 2.42 X10 3/uL Normal 0.83-4.51 [facility] Comment on above: Order Comment: SHIRA Call. PREVIOUS SPECIMEN REJECTED DUE TOSPECIMEN BEING QNS. 08/07/25 0751 Rickey Boudreaux. Performed By: #### L 100.0100 ####[facility] [address] [place], [address] Absolute Neut 3.3 X10 3/uL Normal 2.0-7.7 [facility] Comment on above: Order Comment: REDRA W. PREVIOUS SPECIMEN REJECTED DUE TOSPECIMEN BEING QNS. 02/25/25750 Rickey Boudreaux. Performed By: #### L 100.0100 ####[facility] [address] [place], [address] Basophils/100 WBC (Bld) 0.6 % Normal 0-[address] [facility] Comment on above: Order Comment: REDRA W. PREVIOUS SPECIMEN REJECTED DUE TOSPECIMEN BEING QNS. 02/25/25750 Rickey Boudreaux. Performed By: #### L 100.0100 ####[facility] [address] [place], [address] Eosinophils/100 WBC (Bld) 1.6 % Normal 0-5 [facility] Comment on above: Order Comment: REDRA W. PREVIOUS SPECIMEN REJECTED DUE TOSPECIMEN BEING QNS. 02/25/25750 Rickey Boudreaux. Performed By: #### L 100.0100 ####[facility] [address] [place], [address] Erythrocyte distribution width (RBC) [Ratio] 12.5 % Normal 11.6-14.6 [facility] Comment on above: Order Comment: REDRA W. PREVIOUS SPECIMEN REJECTED DUE TOSPECIMEN BEING QNS. 02/25/25 075 Rickey Velazquezr. Performed By: #### L 100.0100 ####[facility] [address] [place], [address] Hematocrit (Bld) [Volume fraction] 35.2 % Low 37-47 [facility] Comment on above: Order Comment: REDRA W. PREVIOUS SPECIMEN REJECTED DUE TOSPECIMEN BEING QNS. 02/25/25750 Rickey Vega Performed By: #### L 100.0100 ####[facility] [address] [place], [address] Hemoglobin (Bld) [Mass/Vol] 11.8 g/dL Low 12.0-15.0 [facility] Comment on above: Order Comment: REDRA W. PREVIOUS SPECIMEN REJECTED DUE TOSPECIMEN BEING QNS. 02/25/25750 Rickey Vega Performed By: #### L 100.0100 ####[facility] [address] [place], [address] IG% 0.100 Normal 0.0-0.9 [facility] Comment on above: Order Comment: REDRA W. PREVIOUS SPECIMEN REJECTED DUE TOSPECIMEN BEING QNS. 02/25/25750 Rickey Vega Result Comment: IG% - Immature Granulocytes (promyelocytes, myelocytes and metamyelocytes) > 1% indicates that a LEFT SHIFT is Present. Performed By: #### L 100.0100 ####[facility] [address] [place], [address] Lymphocytes/100 WBC (Bld) 36.3 % Normal 19-41 [facility] Comment on above: Order Comment: REDRA W. PREVIOUS SPECIMEN REJECTED DUE TOSPECIMEN BEING QNS. 02/25/25750 Rickey Vega Performed By: #### L 100.0100 ####[facility] [address] [place], [address] MCH (RBC) [Entitic mass] 30.6 pg Normal 27.0-32.0 [facility] Comment on above: Order Comment: REDRA W. PREVIOUS SPECIMEN REJECTED DUE TOSPECIMEN BEING QNS. 02/25/25750 Rickey Vega Performed By: #### L 100.0100 ####[facility] [address] [place], [address] MCHC (RBC) [Mass/Vol] 33.5 g/dL Normal 32-36 [facility] Comment on above: Order Comment: REDRA W. PREVIOUS SPECIMEN REJECTED DUE TOSPECIMEN BEING QNS. 02/25/25 0751 Rickey Boudreaux. Performed By: #### L 100.0100 ####[facility] [address] [place], [address] MCV (RBC) [Entitic vol] 91.4 fL Normal 81-99 [facility] Comment on above: Order Comment: REDRA W. PREVIOUS SPECIMEN REJECTED DUE TOSPECIMEN BEING QNS. 02/25/25 075 Rickey Boudreaux. Performed By: #### L 100.0100 ####[facility] [address] [place], [address] Monocytes/100 WBC (Bld) 12.0 % High 0-10 [facility] Comment on above: Order Comment: REDRA W. PREVIOUS SPECIMEN REJECTED DUE TOSPECIMEN BEING QNS. 02/25/25 0751 Rickey Boudreaux. Performed By: #### L 100.0100 ####[facility] [address] [place], [address] Neutrophils/100 WBC (Bld) 49.4 % Normal 47-70 [facility] Comment on above: Order Comment: REDRA W. PREVIOUS SPECIMEN REJECTED DUE TOSPECIMEN BEING QNS. 02/25/251 Rickey Boudreaux. Performed By: #### L 100.0100 ####[facility] [address] [place], [address] Nucleated RBC (Bld) [#/Vol] 0 10*3/uL Normal 0-5 [facility] Comment on above: Order Comment: REDRA W. PREVIOUS SPECIMEN REJECTED DUE TOSPECIMEN BEING QNS. 02/25/25 0751 Rickey Boudreaux. Performed By: #### L 100.0100 ####[facility] [address] [place], [address] Platelet mean volume (Bld) [Entitic vol] 9.8 fL Normal 6.2-12.0 [facility] Comment on above: Order Comment: REDRA W. PREVIOUS SPECIMEN REJECTED DUE TOSPECIMEN BEING QNS. 02/25/25 0751 Rickey Velazquezr. Performed By: #### L 100.0100 ####[facility] [address] [place], [address] Platelets (Bld) [#/Vol] 261 10*3/uL Normal 150-450 [facility] Comment on above: Order Comment: REDRA W. PREVIOUS SPECIMEN REJECTED DUE TOSPECIMEN BEING QNS. 02/25/25 0751 Rickey Velazquezr. Performed By: #### L 100.0100 ####[facility] [address] [place], [address] RBC (Bld) [#/Vol] 3.85 10*6/uL Low 4.2-5.4 [facility] Comment on above: Order Comment: REDRA W. PREVIOUS SPECIMEN REJECTED DUE TOSPECIMEN BEING QNS. 02/25/25 0751 Rickey Velazquezr. Performed By: #### L 100.0100 ####[facility] [address] [place], [address] RDW SD 41.2 fl Normal 35.1-43.9 [facility] Comment on above: Order Comment: REDRA W. PREVIOUS SPECIMEN REJECTED DUE TOSPECIMEN BEING QNS. 02/25/251 Rickey Velazquezr. Performed By: #### L 100.0100 ####[facility] [address] [place], [address] WBC (Bld) [#/Vol] 6.7 10*3/uL Normal 4.4-11.0 [facility] Comment on above: Order Comment: REDRA W. PREVIOUS SPECIMEN REJECTED DUE TOSPECIMEN BEING QNS. 02/25/25 0751 Rickey Velazquezr. Performed By: #### L 100.0100 ####[facility] [address] [place], [address] Absolute Neut Normal 2.0-7.7 [facility] Comment on above: Result Comment: This specimen has been REJECTED due to Laboratory criteria: Quanity Not Sufficient. PHLEB STAFF has been notified of need of recollection. 02/25/25749 Rickey R Stoner Performed By: #### L 300.3900, L500.2500, L501.5200, L501.2300, L100.0100 #### [facility] [address] [place], [address] HCT Normal 37-47 [facility] Comment on above: Result Comment: This specimen has been REJECTED due to Laboratory criteria: Quanity Not Sufficient. PHLEB STAFF has been notified of need of recollection. 02/25/25749 Rickey R Stoner Performed By: #### L 300.3900, L500.2500, L501.5200, L501.2300, L100.0100 #### [facility] [address] [place], [address] HGB Normal 12.0-15.0 [facility] Comment on above: Result Comment: This specimen has been REJECTED due to Laboratory criteria: Quanity Not Sufficient. PHLEB STAFF has been notified of need of recollection. 02/25/25749 Rickey R Stoner Performed By: #### L 300.3900, L500.2500, L501.5200, L501.2300, L100.0100 #### [facility] [address] [place], [address] MCH Normal 27.0-32.0 [facility] Comment on above: Result Comment: This specimen has been REJECTED due to Laboratory criteria: Quanity Not Sufficient. PHLEB STAFF has been notified of need of recollection. 02/25/25749 Rickey R Stoner Performed By: #### L 300.3900, L500.2500, L501.5200, L501.2300, L100.0100 #### [facility] [address] [place], [address] MCHC Normal 32-36 [facility] Comment on above: Result Comment: This specimen has been REJECTED due to Laboratory criteria: Quanity Not Sufficient. PHLEB STAFF has been notified of need of recollection. 02/25/25749 Rickey R Stoner Performed By: #### L 300.3900, L500.2500, L501.5200, L501.2300, L100.0100 #### [facility] [address] [place], [address] MCV Normal 81-99 [facility] Comment on above: Result Comment: This specimen has been REJECTED due to Laboratory criteria: Quanity Not Sufficient. PHLEB STAFF has been notified of need of recollection. 02/25/25749 Rickey R Stoner Performed By: #### L 300.3900, L500.2500, L501.5200, L501.2300, L100.0100 #### [facility] [address] [place], [address] NEUT% Normal 47-70 [facility] Comment on above: Result Comment: This specimen has been REJECTED due to Laboratory criteria: Quanity Not Sufficient. PHLEB STAFF has been notified of need of recollection. 02/25/25749 Rickey R Stoner Performed By: #### L 300.3900, L500.2500, L501.5200, L501.2300, L100.0100 #### [facility] [address] [place], [address] PLT Normal 150-450 [facility] Comment on above: Result Comment: This specimen has been REJECTED due to Laboratory criteria: Quanity Not Sufficient. PHLEB STAFF has been notified of need of recollection. 02/25/25749 Rickey R Stoner Performed By: #### L 300.3900, L500.2500, L501.5200, L501.2300, L100.0100 #### [facility] [address] [place], [address] RBC Normal 4.2-5.4 [facility] Comment on above: Result Comment: This specimen has been REJECTED due to Laboratory criteria: Quanity Not Sufficient. PHLEB STAFF has been notified of need of recollection. 02/25/25749 Rickey R Stoner Performed By: #### L 300.3900, L500.2500, L501.5200, L501.2300, L100.0100 #### [facility] [address] [place], [address] RDW CV Normal 11.6-14.6 [facility] Comment on above: Result Comment: This specimen has been REJECTED due to Laboratory criteria: Quanity Not Sufficient. PHLEB STAFF has been notified of need of recollection. 02/25/25749 Rickey R Stoner Performed By: #### L 300.3900, L500.2500, L501.5200, L501.2300, L100.0100 #### [facility] [address] [place], [address] RDW SD Normal 35.1-43.9 [facility] Comment on above: Result Comment: This specimen has been REJECTED due to Laboratory criteria: Quanity Not Sufficient. PHLEB STAFF has been notified of need of recollection. 02/25/25749 Rickey R Stoner Performed By: #### L 300.3900, L500.2500, L501.5200, L501.2300, L100.0100 #### [facility] [address] [place], [address] WBC Normal 4.4-11.0 [facility] Comment on above: Result Comment: This specimen has been REJECTED due to Laboratory criteria: Quanity Not Sufficient. PHLEB STAFF has been notified of need of recollection. 02/25/25749 Rickey R Stoner Performed By: #### L 300.3900, L500.2500, L501.5200, L501.2300, L100.0100 #### [facility] [address] [place], [address] Carbon dioxide, total [Moles /volume] in Central venous bloodOrdered By: Clarissa Herrera on 02-25-2025 CO2 [Moles/Vol] 17.7 mmol/L Low 21.0-32.0 [facility] Chloride assayOrdered By: Heidi Herrera on 02-25-2025 Chloride [Moles/Vol] 108 mmol/L 98-108 [facility] Discharge Instructionon Discharge Instruction [facility] Medical Records Department [address] [place] [address] Instructions for Home/Discharge Instructions 02/25/25 1433 MR#: [id number] Acct: [id number] Name: LINA ISAAC Rep #: [id number] : 1965 59 From: Clarissa Herrera MD [...] MD; Mary Kay Dugan DO Signed Normal [facility] Eosinophil percentageOrdered By: Clarissa Herrera on 02-25-2025 Eosinophils/100 WBC (Bld) 1.6 % 0-5 [facility] Erythrocyte distribution wid th ratioOrdered By: Clarissa Herrera on 02-25-2025 Erythrocyte distribution width (RBC) [Ratio] 12.5 % 11.6-14.6 [facility] Erythrocyte distribution wid th standard deviationOrdered By: Clarissa Herrera on 02-25-2025 Erythrocyte distribution width (RBC) [Ratio] 41.2 fl 35.1-43.9 [facility] Glomerular filtration rate ( GFR) estimation/1.73 sq m using serum, plasma, or whole bOrdered By: Clarissa Herrera on 02-25-2025 GFR/1.73 sq M.predicted among non-blacks MDRD (S/P/Bld) [Vol rate/Area] 98 mL/min/{1.73_m2} >60 [facility] Comment on above: mL/min/1.73m2 CKD-EP I Creatinine Equation (2020) Glucose measurement at bedsi deOrdered By: Clarissa Herrera on 02-25-2025 Glucose [Mass/Vol] 155 mg/dL High 74-106 [facility] Comment on above: MANAGEMENT OF PATIEN T CARE PER NURSING PROTOCOL Hematocrit Auto (Bld) [Volum e fraction]Ordered By: Clarissa Herrera on 02-25-2025 Hematocrit (Bld) [Volume fraction] 35.2 % Low 37-47 [facility] Hemoglobin measurementOrdere d By: Clarissa Herrera on 02-25-2025 Hemoglobin (Bld) [Mass/Vol] 11.8 g/dL Low 12.0-15.0 [facility] Immature granulocytes/100 WB C Auto (Bld)Ordered By: Clarissa Herrera on 02-25-2025 Immature granulocytes/100 WBC (Bld) 0.100 % 0.0-0.9 [facility] Comment on above: IG% - Immature Granu locytes (promyelocytes, myelocytes and metamyelocytes) > 1% indicates that a LEFT SHIFT is Present. MCV (mean corpuscular volume ) determinationOrdered By: Clarissa Herrera on 02-25-2025 MCV (RBC) [Entitic vol] 91.4 fL 81-[address] [facility] Mean corpuscular hemoglobin (MCH) determinationOrdered By: Clarissa Herrera 02-25-2025 MCH (RBC) [Entitic mass] 30.6 pg 27.0-32.0 [facility] Mean corpuscular hemoglobin concentration (MCHC) determinationOrdered By: Clarissa Herrera on 02-25-2025 MCHC (RBC) [Mass/Vol] 33.5 g/dL 32-36 [facility] Mean platelet volume determi nationOrdered By: Clarissa Herrera on 02-25-2025 Platelet mean volume (Bld) [Entitic vol] 9.8 fL 6.2-12.0 [facility] Monocyte percentageOrdered B y: Clarissa Herrera on 02-25-2025 Monocytes/100 WBC (Bld) 12.0 % High 0-[address] [facility] Neutrophil percentageOrdered By: Clarissa Herrera on 02-25-2025 Neutrophils/100 WBC (Bld) 49.4 % 47-70 [facility] Nucleated red blood cell per centageOrdered By: Clarissa Herrera on 02-25-2025 Nucleated RBC/100 WBC (Bld) [Ratio] 0 % 0-5 [facility] Platelet countOrdered By: Heidi Herrera on 02-25-2025 Platelets (Bld) [#/Vol] 261 10*3/uL 150-450 [facility] Potassium measurement (mass/ volume)Ordered By: Clarissa Herrera on 02-25-2025 Potassium (Unsp spec) [Mass/Vol] 4.2 mmol/L 3.3-5.1 [facility] Comment on above: Hemolysis present, R esults could be affected. RBC Auto (Bld) [#/Vol]Ordere d By: Clarissa Herrera on 02-25-2025 RBC (Bld) [#/Vol] 3.85 10*6/uL Low 4.2-5.4 [facility] Serum creatinine measurement (mass/volume)Ordered By: Clarissa Herrera on 02-25-2025 Creatinine [Mass/Vol] 0.70 mg/dL 0.70-1.20 [facility] Serum glucose measurement (m ass/volume)Ordered By: Clarissa Herrera on 02-25-2025 Glucose [Mass/Vol] 126 mg/dL High 70-99 [facility] Serum or plasma calcium delgado urement (mass/volume)Ordered By: Clarissa Herrera on 02-25-2025 Calcium [Mass/Vol] 9.2 mg/dL 7.6-11.0 [facility] Serum or plasma urea nitroge n measurement (mass/volume)Ordered By: Clarissa Herrera on 02-25-2025 Urea nitrogen [Mass/Vol] 11 mg/dL 4-19 [facility] Sodium levelOrdered By: Clarissa Herrera on 02-25-2025 Sodium [Moles/Vol] 140 mmol/L 133-145 [facility] White blood cell (WBC) count Ordered By: Clarissa Herrera on 02-25-2025 WBC (Bld) [#/Vol] 6.7 10*3/uL 4.4-11.0 [facility] Bedside Glucoseon 02-24-2025 FINGERSTICK GLU 192 mg/dL High 74-106 [facility] Comment on above: Result Comment: JASPER GEMENT OF PATIENT CARE PER NURSING PROTOCOL Performed By: #### L 501.080 #### [facility] [address] [place], [address] FINGERSTICK GLU 209 mg/dL High [address] [facility] Comment on above: Result Comment: JASPER GEMENT OF PATIENT CARE PER NURSING PROTOCOL Performed By: #### L 300.3900, L500.2500, L501.5200, L501.2300, L100.0100 #### [facility] [address] [place], [address] FINGERSTICK GLU 250 mg/dL High -106 [facility] Comment on above: Result Comment: JASPER GEMENT OF PATIENT CARE PER NURSING PROTOCOL Performed By: #### L 501.080 #### [facility] [address] [place], [address] FINGERSTICK GLU 114 mg/dL High [address] [place] [address] Comment on above: Result Comment: JASPER GEMENT OF PATIENT CARE PER NURSING PROTOCOL Performed By: #### L 501.080 #### [facility] [address] [place], [address] Bilirubin, totalOrdered By: Faye Mace on 02-24-2025 Bilirubin [Mass/Vol] 0.85 mg/dL 0.00-1.30 [facility] CBC W/Diff, Automatedon Absolute Lymph 3.17 X10 3/uL Normal 0.83-4.51 [facility] Comment on above: Performed By: #### L 300.3900, L500.2500, L501.5200, L501.2300, L100.0100 #### [facility] [address] [place], [address] Absolute Neut 2.7 X10 3/uL Normal 2.0-7.7 [facility] Comment on above: Performed By: #### L 300.3900, L500.2500, L501.5200, L501.2300, L100.0100 #### [facility] [address], [address] Basophils/100 WBC (Bld) 0.6 % Normal 0-[address] [facility] Comment on above: Performed By: #### L 300.3900, L500.2500, L501.5200, L501.2300, L100.0100 #### [facility] [address] [place], [address] Eosinophils/100 WBC (Bld) 1.9 % Normal 0-5 [facility] Comment on above: Performed By: #### L 300.3900, L500.2500, L501.5200, L501.2300, L100.0100 #### [facility] [address], [address] Erythrocyte distribution width (RBC) [Ratio] 12.3 % Normal 11.6-14.6 [facility] Comment on above: Performed By: #### L 300.3900, L500.2500, L501.5200, L501.2300, L100.0100 #### [facility] [address], [address] Hematocrit (Bld) [Volume fraction] 37.4 % Normal 37-47 [facility] Comment on above: Performed By: #### L 300.3900, L500.2500, L501.5200, L501.2300, L100.0100 #### [facility] [address], [address] Hemoglobin (Bld) [Mass/Vol] 12.7 g/dL Normal 12.0-15.0 [facility] Comment on above: Performed By: #### L 300.3900, L500.2500, L501.5200, L501.2300, L100.0100 #### [facility] [address] [place], [address] IG% 0.300 Normal 0.0-0.9 [facility] Comment on above: Result Comment: IG% - Immature Granulocytes (promyelocytes, myelocytes and metamyelocytes) > 1% indicates that a LEFT SHIFT is Present. Performed By: #### L 300.3900, L500.2500, L501.5200, L501.2300, L100.0100 #### [facility] [address] [place], [address] Lymphocytes/100 WBC (Bld) 45.8 % High 19-41 [facility] Comment on above: Performed By: #### L 300.3900, L500.2500, L501.5200, L501.2300, L100.0100 #### [facility] [address] [place], [address] MCH (RBC) [Entitic mass] 30.4 pg Normal 27.0-32.0 [facility] Comment on above: Performed By: #### L 300.3900, L500.2500, L501.5200, L501.2300, L100.0100 #### [facility] [address] [place], [address] MCHC (RBC) [Mass/Vol] 34.0 g/dL Normal 32-36 [facility] Comment on above: Performed By: #### L 300.3900, L500.2500, L501.5200, L501.2300, L100.0100 #### [facility] [address] [place], [address] MCV (RBC) [Entitic vol] 89.5 fL Normal 81-[address] [facility] Comment on above: Performed By: #### L 300.3900, L500.2500, L501.5200, L501.2300, L100.0100 #### [facility] [address] [place], [address] Monocytes/100 WBC (Bld) 12.0 % High 0-[address] [facility] Comment on above: Performed By: #### L 300.3900, L500.2500, L501.5200, L501.2300, L100.0100 #### [facility] [address] [place], [address] Neutrophils/100 WBC (Bld) 39.4 % Low 47-70 [facility] Comment on above: Performed By: #### L 300.3900, L500.2500, L501.5200, L501.2300, L100.0100 #### [facility] [address] [place], [address] Nucleated RBC (Bld) [#/Vol] 0 10*3/uL Normal 0-5 [facility] Comment on above: Performed By: #### L 300.3900, L500.2500, L501.5200, L501.2300, L100.0100 #### [facility] [address] [place], [address] Platelet mean volume (Bld) [Entitic vol] 10.1 fL Normal 6.2-12.0 [facility] Comment on above: Performed By: #### L 300.3900, L500.2500, L501.5200, L501.2300, L100.0100 #### [facility] [address] [place], [address] Platelets (Bld) [#/Vol] 267 10*3/uL Normal 150-450 [facility] Comment on above: Performed By: #### L 300.3900, L500.2500, L501.5200, L501.2300, L100.0100 #### [facility] [address] [place], [address] RBC (Bld) [#/Vol] 4.18 10*6/uL Low 4.2-5.4 [facility] Comment on above: Performed By: #### L 300.3900, L500.2500, L501.5200, L501.2300, L100.0100 #### [facility] [address] [place], [address] RDW SD 39.8 fl Normal 35.1-43.9 [facility] Comment on above: Performed By: #### L 300.3900, L500.2500, L501.5200, L501.2300, L100.0100 #### [facility] [address] [place], [address] WBC (Bld) [#/Vol] 6.9 10*3/uL Normal 4.4-11.0 [facility] Comment on above: Performed By: #### L 300.3900, L500.2500, L501.5200, L501.2300, L100.0100 #### [facility] [address] [place], [address] CRPon 02-24-2025 C-REACTIVE PROT 43.20 mg/L High 0.0-3.0 [facility] Comment on above: Performed By: #### L 101.9900, L501.6710 ####[facility] [address] [place], [address] Comprehensive Metabolic Prof ilon 02-24-2025 Albumin [Mass/Vol] 3.8 g/dL Normal 3.4-4.8 [facility] Comment on above: Performed By: #### L 300.3900, L500.2500, L501.5200, L501.2300, L100.0100 #### [facility] [address] [place], [address] Albumin/Globulin [Mass ratio] 1.2 {ratio} Normal 0.9-2.4 [facility] Comment on above: Performed By: #### L 300.3900, L500.2500, L501.5200, L501.2300, L100.0100 #### [facility] [address] [place], [address] ALK PHOS 92 U/L Normal 35-104 [facility] Comment on above: Performed By: #### L 300.3900, L500.2500, L501.5200, L501.2300, L100.0100 #### [facility] [address] [place], [address] ALT [Catalytic activity/Vol] 31 U/L Normal <=34 [facility] Comment on above: Performed By: #### L 300.3900, L500.2500, L501.5200, L501.2300, L100.0100 #### [facility] [address] [place], [address] AST [Catalytic activity/Vol] 82 U/L High <=31 [facility] Comment on above: Performed By: #### L 300.3900, L500.2500, L501.5200, L501.2300, L100.0100 #### [facility] [address] [place], [address] Bilirubin [Mass/Vol] 0.85 mg/dL Normal 0.00-1.30 [facility] Comment on above: Performed By: #### L 300.3900, L500.2500, L501.5200, L501.2300, L100.0100 #### [facility] [address] [place], [address] BUN/CRE 19.8 RATIO Normal 10-20 [facility] Comment on above: Performed By: #### L 300.3900, L500.2500, L501.5200, L501.2300, L100.0100 #### [facility] [address] [place], [address] Calcium [Mass/Vol] 9.3 mg/dL Normal 7.6-11.0 [facility] Comment on above: Performed By: #### L 300.3900, L500.2500, L501.5200, L501.2300, L100.0100 #### [facility] [address] [place], [address] Chloride [Moles/Vol] 106 mmol/L Normal 98-108 [facility] Comment on above: Performed By: #### L 300.3900, L500.2500, L501.5200, L501.2300, L100.0100 #### [facility] [address] [place], [address] CO2 [Moles/Vol] 24.9 mmol/L Normal 21.0-32.0 [facility] Comment on above: Performed By: #### L 300.3900, L500.2500, L501.5200, L501.2300, L100.0100 #### [facility] [address] [place], [address] Creatinine [Mass/Vol] 0.54 mg/dL Low 0.70-1.20 [facility] Comment on above: Performed By: #### L 300.3900, L500.2500, L501.5200, L501.2300, L100.0100 #### [facility] [address] [place], [address] ECRCL 133.31 ml/min Normal 50-250 [facility] Comment on above: Performed By: #### L 300.3900, L500.2500, L501.5200, L501.2300, L100.0100 #### [facility] [address] [place], [address] GAP 11 Normal 5-15 [facility] Comment on above: Performed By: #### L 300.3900, L500.2500, L501.5200, L501.2300, L100.0100 #### [facility] [address] [place], [address] GFR/1.73 sq M.predicted among non-blacks MDRD (S/P/Bld) [Vol rate/Area] 106 mL/min/{1.73_m2} Normal >60 [facility] Comment on above: Result Comment: mL/m in/1.73m2 CKD-EPI Creatinine Equation (2020) Performed By: #### L 300.3900, L500.2500, L501.5200, L501.2300, L100.0100 #### [facility] [address] [place], [address] Globulin (S) [Mass/Vol] 3.2 g/dL Normal 2.2-4.2 [facility] Comment on above: Performed By: #### L 300.3900, L500.2500, L501.5200, L501.2300, L100.0100 #### [facility] [address] [place], [address] Glucose [Mass/Vol] 103 mg/dL High 70-99 [facility] Comment on above: Performed By: #### L 300.3900, L500.2500, L501.5200, L501.2300, L100.0100 #### [facility] [address] [place], [address] Potassium [Moles/Vol] 3.6 mmol/L Normal 3.3-5.1 [facility] Comment on above: Performed By: #### L 300.3900, L500.2500, L501.5200, L501.2300, L100.0100 #### [facility] [address] [place], [address] Sodium [Moles/Vol] 142 mmol/L Normal 133-145 [facility] Comment on above: Performed By: #### L 300.3900, L500.2500, L501.5200, L501.2300, L100.0100 #### [facility] [address] [place], [address] T PROT 7.0 g/dL Normal 5.9-8.4 [facility] Comment on above: Performed By: #### L 300.3900, L500.2500, L501.5200, L501.2300, L100.0100 #### [facility] [address] [place], [address] Urea nitrogen [Mass/Vol] 11 mg/dL Normal 4-19 [facility] Comment on above: Performed By: #### L 300.3900, L500.2500, L501.5200, L501.2300, L100.0100 #### [facility] [address] [place], [address] Electrocardiogram reportOrde red By: Elver Montero on 02-24-2025 EKG study [facility] [address] [place] [address] 12 Lead EKG 02/22/25 1635 MR#: [id number] Acct: [id number] Name: LINA ISAAC Rep #:[id number] : 1965 59 From: Elver Montero MD [...] Abnormal ECG Confirmed by WINSTON DELACRUZ, ELVER ([id number]), editor farm journal REGGIE SHEARER ([id number]) on 02/24/2025 7:34:59 AM Referred By: JACK/OLGA Confirmed By: ELVER MONTERO MD 02/24/25 0735 Date _ Elver Montero MD CC: Dr. John Catherine MD; Dr. Jese Zheng DO; Dr. Clarissa Herrera MD ~ Signed [facility] Work Phone: Erythrocyte Sed Rateon 02-24 SED RATE 23 mm/hr Normal 0-30 [facility] Comment on above: Performed By: #### L 101.9900, L501.6710 ####[facility] [address] [place], [place], [address] Erythrocyte sedimentation ra teOrdered By: Faye Mace on 02-24-2025 ESR (Bld) [Velocity] 23 mm/h 0-30 [facility] Hemoglobin A1con 02-24-2025 HbA1c (Bld) [Mass fraction] 9.9 % High <=5.6 [facility] Comment on above: Result Comment: Norm al < 5.7 % Prediabetic 5.7 - 6.4 % Diabetic >or= 6.5 % Please note range changes. Performed By: #### L 300.3900, L500.2500, L501.5200, L501.2300, L100.0100 #### [facility] [address] [place], [place], [address] Hemoglobin A1c percentageOrd ered By: Clarissa Herrera on 02-24-2025 HbA1c (Bld) [Mass fraction] 9.9 % High <5.7 [facility] Comment on above: Normal < 5.7 % Predi abetic 5.7 - 6.4 % Diabetic >or= 6.5 % Please note range changes. Laboratory - Chemistry and C hemistry - challengeOrdered By: Faye Mace on 02-24-2025 AST [Catalytic activity/Vol] 82 U/L High <32 [facility] Magnesiumon 02-24-2025 Magnesium [Mass/Vol] 2.2 mg/dL Normal 1.5-2.2 [facility] Comment on above: Performed By: #### L 300.3900, L500.2500, L501.5200, L501.2300, L100.0100 #### [facility] [address] [place], [place], [address] Magnesium measurement (mass/ volume)Ordered By: Faye Mace on 02-24-2025 Magnesium (Unsp spec) [Mass/Vol] 2.2 mg/dL 1.5-2.2 [facility] Phosphoruson 02-24-2025 Phosphate [Mass/Vol] 4.3 mg/dL Normal 2.7-4.5 [facility] Comment on above: Performed By: #### L 300.3900, L500.2500, L501.5200, L501.2300, L100.0100 #### [facility] [address] [place], [place], [address] Serum globulin measurementOr dered By: Faye Mace on 02-24-2025 Globulin (S) [Mass/Vol] 3.2 g/dL 2.2-4.2 [facility] Serum or plasma C reactive p rotein measurement (mass/volume)Ordered By: Faye Mace on 02-24-2025 CRP [Mass/Vol] 43.20 mg/L High 0.0-3.0 [facility] Serum or plasma alanine little otransferase (ALT) measurementOrdered By: Faye Mace on 02-24-2025 ALT [Catalytic activity/Vol] 31 U/L <35 [facility] Serum or plasma albumin delgado urement (mass/volume)Ordered By: Faye Mace on 02-24-2025 Albumin [Mass/Vol] 3.8 g/dL 3.4-4.8 [facility] Serum or plasma albumin/glob ulin mass ratioOrdered By: Faye Mace on 02-24-2025 Albumin/Globulin [Mass ratio] 1.2 {ratio} 0.9-2.4 [facility] Serum or plasma alkaline ambar sphatase measurementOrdered By: Faye Mace on 02-24-2025 ALP [Catalytic activity/Vol] 92 U/L 35-104 [facility] TSH DL <= 0.005 mIU/L QnOrde red By: Faye Mace on 02-24-2025 TSH Qn 2.330 uIU/mL 0.300-4.200 [facility] Thyroid Stim Hormone (TSH)on 02-24-2025 TSH 2.330 uIU/mL Normal 0.300-4.200 [facility] Comment on above: Performed By: #### L 300.3900, L500.2500, L501.5200, L501.2300, L100.0100 #### [facility] [address] [facility] [place], [place], [address] Total proteinOrdered By: Ann Mace on 02-24-2025 Protein [Mass/Vol] 7.0 g/dL 5.9-8.4 [facility] Abdomen/Pelvis without Conto n 02-23-2025 Abdomen/Pelvis without Cont [facility] [address] [place], [place] [address] Abdomen/Pelvis without Cont MR#: [id number] Acct: [id number] Name: LINA ISAAC Rep #: [id number] : 1965 F 59 From: Sourav sanabria MD PCP: Dr. Jese Zheng DO Status: ADM IN Study: Abdomen/Pelvis without Cont Date of Exam: 12/13 Exam# [id number] Ordering Dr: Faye Mace DO PROCEDURE: ABDOMEN/PELVIS [...] evidence of the ureteral obstruction. Reading Location: [id number] CC: Dr. Jese Zheng DO; Dr. Faye Mace DO Printing Specialist: Signed Normal [facility] Basic Metabolic Profile (BMP )on 02-23-2025 BUN/CRE 17.5 RATIO Normal 10-20 [facility] Comment on above: Performed By: #### L 300.3900, L500.2500, L501.5200, L501.2300, L100.0100 #### [facility] [address] [place], [address] Calcium [Mass/Vol] 9.0 mg/dL Normal 7.6-11.0 [facility] Comment on above: Performed By: #### L 300.3900, L500.2500, L501.5200, L501.2300, L100.0100 #### [facility] [address] [place], [address] Chloride [Moles/Vol] 102 mmol/L Normal 98-108 [facility] Comment on above: Performed By: #### L 300.3900, L500.2500, L501.5200, L501.2300, L100.0100 #### [facility] [address] [place], [address] CO2 [Moles/Vol] 23.6 mmol/L Normal 21.0-32.0 [facility] Comment on above: Performed By: #### L 300.3900, L500.2500, L501.5200, L501.2300, L100.0100 #### [facility] [address] [place], [address] Creatinine [Mass/Vol] 0.66 mg/dL Low 0.70-1.20 [facility] Comment on above: Performed By: #### L 300.3900, L500.2500, L501.5200, L501.2300, L100.0100 #### [facility] [address] [place], [address] ECRCL 109.07 ml/min Normal 50-250 [facility] Comment on above: Performed By: #### L 300.3900, L500.2500, L501.5200, L501.2300, L100.0100 #### [facility] [address] [place], [address] GAP 13 Normal 5-15 [facility] Comment on above: Performed By: #### L 300.3900, L500.2500, L501.5200, L501.2300, L100.0100 #### [facility] [address] [place], [address] GFR/1.73 sq M.predicted among non-blacks MDRD (S/P/Bld) [Vol rate/Area] 100 mL/min/{1.73_m2} Normal >60 [facility] Comment on above: Result Comment: mL/m in/1.73m2 CKD-EPI Creatinine Equation (2020) Performed By: #### L 300.3900, L500.2500, L501.5200, L501.2300, L100.0100 #### [facility] [address] [place], [address] Glucose [Mass/Vol] 253 mg/dL High 70-99 [facility] Comment on above: Performed By: #### L 300.3900, L500.2500, L501.5200, L501.2300, L100.0100 #### [facility] [address] [place], [address] Potassium [Moles/Vol] 3.5 mmol/L Normal 3.3-5.1 [facility] Comment on above: Performed By: #### L 300.3900, L500.2500, L501.5200, L501.2300, L100.0100 #### [facility] [address] [place], [address] Sodium [Moles/Vol] 138 mmol/L Normal 133-145 [facility] Comment on above: Performed By: #### L 300.3900, L500.2500, L501.5200, L501.2300, L100.0100 #### [facility] [address] [place], [address] Urea nitrogen [Mass/Vol] 12 mg/dL Normal 4-19 [facility] Comment on above: Performed By: #### L 300.3900, L500.2500, L501.5200, L501.2300, L100.0100 #### [facility] [address] [place], [address] Bedside Glucoseon 02-23-2025 FINGERSTICK GLU 186 mg/dL High 74-106 [facility] Comment on above: Result Comment: JASPER RUIZ OF PATIENT CARE PER NURSING PROTOCOL Performed By: #### L 501.080 ####[facility] [address] [place], [address] FINGERSTICK GLU 144 mg/dL High 74-106 [facility] Comment on above: Result Comment: JASPER GEMENT OF PATIENT CARE PER NURSING PROTOCOL Performed By: #### L 501.080 #### [facility] [address] [place], [address] FINGERSTICK GLU 140 mg/dL High 74-106 [facility] Comment on above: Result Comment: JASPER GEMENT OF PATIENT CARE PER NURSING PROTOCOL Performed By: #### L 300.3900, L500.2500, L501.5200, L501.2300, L100.0100 #### [facility] [address] [place], [address] FINGERSTICK GLU 263 mg/dL High 74-106 [facility] Comment on above: Result Comment: JASPER GEMENT OF PATIENT CARE PER NURSING PROTOCOL Performed By: #### L 501.080 #### [facility] [address] [place], [address] FINGERSTICK GLU 241 mg/dL High -106 [facility] Comment on above: Result Comment: JASPER GEMENT OF PATIENT CARE PER NURSING PROTOCOL Performed By: #### L 501.080 ####[facility] [address] [place], [address] FINGERSTICK GLU 373 mg/dL High 74-106 [facility] Comment on above: Result Comment: JASPER GEMENT OF PATIENT CARE PER NURSING PROTOCOL Performed By: #### L 501.080 #### [facility] [address] [place], [address] Brain/Head without Contrasto n 02-23-2025 Brain/Head without Contrast [facility] [address] [place] [address] Brain/Head without Contrast MR#: [id number] Acct: [id number] Name: LINA ISAAC Rep #: [id number] : 1965 F 59 From: Sourav sanabria MD PCP: Dr. Jese Zheng DO Status: ADM IN Study: Brain/Head without Contrast Date of Exam: 12/13 Exam# [id number] Ordering Dr: Faye Mace DO PROCEDURE: BRAIN/HEAD [...] CHRONIC CHANGES. NO ACUTE FINDINGS. Reading Location: [id number] CC: Dr. Jese Zheng DO; Dr. Faye Mace DO Printing Specialist: Signed Normal [facility] CBC W/Diff, Automatedon Absolute Lymph 2.76 X10 3/uL Normal 0.83-4.51 [facility] Comment on above: Performed By: #### L 300.3900, L500.2500, L501.5200, L501.2300, L100.0100 #### [facility] [address] [place], [address] Absolute Neut 4.5 X10 3/uL Normal 2.0-7.7 [facility] Comment on above: Performed By: #### L 300.3900, L500.2500, L501.5200, L501.2300, L100.0100 #### [facility] [address] [place], [address] Basophils/100 WBC (Bld) 0.7 % Normal 0-[address] [facility] Comment on above: Performed By: #### L 300.3900, L500.2500, L501.5200, L501.2300, L100.0100 #### [facility] [address] [place], [address] Eosinophils/100 WBC (Bld) 1.3 % Normal 0-5 [facility] Comment on above: Performed By: #### L 300.3900, L500.2500, L501.5200, L501.2300, L100.0100 #### [facility] [address] [place], [address] Erythrocyte distribution width (RBC) [Ratio] 12.3 % Normal 11.6-14.6 [facility] Comment on above: Performed By: #### L 300.3900, L500.2500, L501.5200, L501.2300, L100.0100 #### [facility] [address] [place], [address] Hematocrit (Bld) [Volume fraction] 36.7 % Low 37-47 [facility] Comment on above: Performed By: #### L 300.3900, L500.2500, L501.5200, L501.2300, L100.0100 #### [facility] [address] [place], [address] Hemoglobin (Bld) [Mass/Vol] 12.6 g/dL Normal 12.0-15.0 [facility] Comment on above: Performed By: #### L 300.3900, L500.2500, L501.5200, L501.2300, L100.0100 #### [facility] [address] [place], [address] IG% 0.200 Normal 0.0-0.9 [facility] Comment on above: Result Comment: IG% - Immature Granulocytes (promyelocytes, myelocytes and metamyelocytes) > 1% indicates that a LEFT SHIFT is Present. Performed By: #### L 300.3900, L500.2500, L501.5200, L501.2300, L100.0100 #### [facility] [address], [address] Lymphocytes/100 WBC (Bld) 32.5 % Normal 19-41 [facility] Comment on above: Performed By: #### L 300.3900, L500.2500, L501.5200, L501.2300, L100.0100 #### [facility] [address] [place], [address] MCH (RBC) [Entitic mass] 30.6 pg Normal 27.0-32.0 [facility] Comment on above: Performed By: #### L 300.3900, L500.2500, L501.5200, L501.2300, L100.0100 #### [facility] [address] [place], [address] MCHC (RBC) [Mass/Vol] 34.3 g/dL Normal 32-36 [facility] Comment on above: Performed By: #### L 300.3900, L500.2500, L501.5200, L501.2300, L100.0100 #### [facility] [address] [place], [address] MCV (RBC) [Entitic vol] 89.1 fL Normal 81-[address] [facility] Comment on above: Performed By: #### L 300.3900, L500.2500, L501.5200, L501.2300, L100.0100 #### [facility] [address] [place], [address] Monocytes/100 WBC (Bld) 12.7 % High 0-[address] [facility] Comment on above: Performed By: #### L 300.3900, L500.2500, L501.5200, L501.2300, L100.0100 #### [facility] [address] [place], [address] Neutrophils/100 WBC (Bld) 52.6 % Normal 47-70 [facility] Comment on above: Performed By: #### L 300.3900, L500.2500, L501.5200, L501.2300, L100.0100 #### [facility] [address] [place], [address] Nucleated RBC (Bld) [#/Vol] 0 10*3/uL Normal 0-5 [facility] Comment on above: Performed By: #### L 300.3900, L500.2500, L501.5200, L501.2300, L100.0100 #### [facility] [address] [place], [address] Platelet mean volume (Bld) [Entitic vol] 10.2 fL Normal 6.2-12.0 [facility] Comment on above: Performed By: #### L 300.3900, L500.2500, L501.5200, L501.2300, L100.0100 #### [facility] [address] [place], [address] Platelets (Bld) [#/Vol] 269 10*3/uL Normal 150-450 [facility] Comment on above: Performed By: #### L 300.3900, L500.2500, L501.5200, L501.2300, L100.0100 #### [facility] [address] [place], [address] RBC (Bld) [#/Vol] 4.12 10*6/uL Low 4.2-5.4 [facility] Comment on above: Performed By: #### L 300.3900, L500.2500, L501.5200, L501.2300, L100.0100 #### [facility] [address] [place], [address] RDW SD 39.6 fl Normal 35.1-43.9 [facility] Comment on above: Performed By: #### L 300.3900, L500.2500, L501.5200, L501.2300, L100.0100 #### [facility] [address] [place], [address] WBC (Bld) [#/Vol] 8.5 10*3/uL Normal 4.4-11.0 [facility] Comment on above: Performed By: #### L 300.3900, L500.2500, L501.5200, L501.2300, L100.0100 #### [facility] [address] [facility] [place], [address] Consultation - Cardiologyon 02-23-2025 Consultation - Cardiology [facility] Medical Records Department [address] [place] [address] Consultation - Cardiology 02/23/25 0759 MR#: [id number] Acct: [id number] Name: LINA ISAAC Rep #: [id number] : 1965 59 From: Elver oMntero MD PCP: Dr. Jese Zheng, DO Status:ADM IN Location: [place] [address] Assessment Plan Assessment/Plan (1) Chest pain: PLAN: [...] history of hypertension or hyperlipidemia. [facility] Medical History Dyslipidemia Trigger ring [...] injector (T (more content not included)... Normal [facility] Echo Complete W/ Contraston 02-23-2025 Echo Complete W/ Contrast [facility] Cardiovascular Services [address] [place] [address] Echo Complete W/ Contrast 02/23/25 1437 MR#: [id number] Acct: [id number] Name: LINA ISAAC Rep #: [id number] : 1965 59 From: Elver Montero MD [...] MD Date Dictated: 02/23/251436 Date Transcribed: 02/23/251626 Printing Specialist: Signed Normal [facility] Echocardiogram study reportO rdered By: Elver Montero on 02-23-2025 Study report [facility] [address] [place] [address] Echo Complete W/ Contrast 02/23/251436 MR#: [id number] Acct: [id number] Name: MART ISAACJOHNNY Del Angel Rep #:[id number] : 1965 59 From: Elver Del Angel [...] Date Dictated: 02/23/25 1437 Date Transcribed: 02/23/251626 Printing Specialist: Signed [facility] Work Phone: International normalized rat io (INR) calculationOrdered By: Denton Cook on 02-23-2025 INR Coag (Bld) [Relative time] 1.0 {INR} [facility] Lactic Acidon 02-23-2025 Lactate [Moles/Vol] 1.5 mmol/L Normal 0.0-2.0 [facility] Comment on above: Order Comment: NO0 V RIY Performed By: #### L 501.080 #### [facility] [address] [place], [place], [address] Lactic acid measurementOrder ed By: Faye Mace on 02-23-2025 Lactate [Moles/Vol] 1.5 mmol/L 0.0-2.0 [facility] Magnesiumon 02-23-2025 Magnesium [Mass/Vol] 1.9 mg/dL Normal 1.5-2.2 [facility] Comment on above: Performed By: #### L 300.3900, L500.2500, L501.5200, L501.2300, L100.0100 #### [facility] [address] [place], [place], [address] Phosphoruson 02-23-2025 Phosphate [Mass/Vol] 3.0 mg/dL Normal 2.7-4.5 [facility] Comment on above: Performed By: #### L 300.3900, L500.2500, L501.5200, L501.2300, L100.0100 #### [facility] [address] [place], [address] Prothrombin Time w/INRon INR Coag (PPP) [Relative time] 1.0 {INR} Normal [facility] Comment on above: Performed By: #### L 300.3900, L500.2500, L501.5200, L501.2300, L100.0100 #### [facility] [address] [place], [address] PT Coag (PPP) [Time] 13.6 s Normal 11.7-14.9 [facility] Comment on above: Performed By: #### L 300.3900, L500.2500, L501.5200, L501.2300, L100.0100 #### [facility] [address] [place], [address] Prothrombin timeOrdered By: Denton Cook on 02-23-2025 PT Coag (PPP) [Time] 13.6 s 11.7-14.9 [facility] Spine Lumbar WITH Contraston 02-23-2025 Spine Lumbar WITH Contrast [facility] Imaging Services [address] [place] [address] Spine Lumbar WITH Contrast MR#: [id number] Acct: [id number] Name: LINA ISAAC Bean Rep #: [id number] : 1965 F 59 From: José Benitez MD PCP: Dr. Jese Zheng DO Status: ADM IN Study: Spine Lumbar WITH Contrast Date of Exam: 02/23 Exam# [id number] Ordering Dr: Faye Mace DO PROCEDURE: SPINE [...] mainly L5-S1. No acute findings. Reading Location: [place] [address] CC: Dr. Jese Zheng DO; Dr. Faye Mace, DO Printing Specialist: Signed Normal [facility] Troponin T HS 4 HRon 025 Trop T High Sen 164 ng/L Invalid Interpretation Code <=14 [facility] Comment on above: Result Comment: Crit ical Result(s) Called at: 0008 by:??MISHEL CASANOVA TO [employer]. Results read back by same. Performed By: #### L 501.080 #### [facility] [address] [facility] [place], [address] 12 Lead EKGon 02-22-2025 12 Lead EKG [facility] Cardiovascular Services [address] [place] [address] 12 Lead EKG 02/22/25 1635 MR#: [id number] Acct: [id number] Name: LINA ISAAC Rep #: [id number] : 1965 59 From: Elver Montero MD [...] Abnormal ECG Confirmed by ELVER MONTERO MD ([id number]), editor farm journal REGGIE SHEARER ([id number]) on 02/24/2025 7:34:59 AM Referred By: PEDRO Confirmed By: ELVER MONTERO MD 02/24/25 0735 Date Elver Montero MD CC: Dr. John Catherine MD; Dr. Jese Zheng DO; Dr. Clarissa Herrera MD Signed Normal [facility] Absolute lymphocyte countOrd ered By: John Catherine on 02-22-2025 Lymphocytes Auto (Unsp spec) [#/Vol] 2.92 10*3/uL 0.83-4.51 [facility] Absolute neutrophil countOrd ered By: John Catherine on 02-22-2025 Neutrophils (Bld) [#/Vol] 3.8 10*3/uL 2.0-7.7 [facility] Anion gap in Serum or Plasma Ordered By: John Catherine on 02-22-2025 Anion gap [Moles/Vol] 12 mmol/L 5-15 [facility] Automated blood erythrocyte countOrdered By: John Catherine on 02-22-2025 RBC (Bld) [#/Vol] 4.29 10*6/uL Normal 4.2-5.4 [facility] Comment on above: Performed By: #### L 501.080 #### [facility] [address] [place], [place], [address] Automated blood hematocrit ( percentage)Ordered By: John Catherine on 02-22-2025 Hematocrit (Bld) [Volume fraction] 38.3 % Normal 37-47 [facility] Comment on above: Performed By: #### L 501.080 #### [facility] [address] [place], [address] Automated lymphocyte count a s percentage of total leukocytesOrdered By: John Catherine on 02-22-2025 Lymphocytes/100 WBC Auto (Unsp spec) 37.3 % 19- [facility] BUN/creatinine ratioOrdered By: John Catherine on 02-22-2025 Urea nitrogen/Creatinine [Mass ratio] 15.5 mg/mg - [facility] Basic Metabolic Profile (BMP )on 02-22-2025 BUN/CRE 15.5 RATIO Normal - [facility] Comment on above: Performed By: #### L 300.3900, L500.2500, L501.5200, L501.2300, L100.0100 #### [facility] [address] [place], [address] Calcium [Mass/Vol] 9.3 mg/dL Normal 7.6-11.0 [facility] Comment on above: Performed By: #### L 300.3900, L500.2500, L501.5200, L501.2300, L100.0100 #### [facility] [address] [place], [address] Chloride [Moles/Vol] 103 mmol/L Normal 98-108 [facility] Comment on above: Performed By: #### L 300.3900, L500.2500, L501.5200, L501.2300, L100.0100 #### [facility] [address] [place], [address] CO2 [Moles/Vol] 24.0 mmol/L Normal 21.0-32.0 [facility] Comment on above: Performed By: #### L 300.3900, L500.2500, L501.5200, L501.2300, L100.0100 #### [facility] [address] [place], [address] Creatinine [Mass/Vol] 0.57 mg/dL Low 0.70-1.20 [facility] Comment on above: Performed By: #### L 300.3900, L500.2500, L501.5200, L501.2300, L100.0100 #### [facility] [address] [place], [address] ECRCL 127.95 ml/min Normal 50-250 [facility] Comment on above: Performed By: #### L 300.3900, L500.2500, L501.5200, L501.2300, L100.0100 #### [facility] [address] [place], [address] GAP 12 Normal 5-15 [facility] Comment on above: Performed By: #### L 300.3900, L500.2500, L501.5200, L501.2300, L100.0100 #### [facility] [address] [place], [address] GFR/1.73 sq M.predicted among non-blacks MDRD (S/P/Bld) [Vol rate/Area] 104 mL/min/{1.73_m2} Normal >60 [facility] Comment on above: Result Comment: mL/m in/1.73m2 CKD-EPI Creatinine Equation (2020) Performed By: #### L 300.3900, L500.2500, L501.5200, L501.2300, L100.0100 #### [facility] [address] [place], [address] Glucose [Mass/Vol] 270 mg/dL High 70-99 [facility] Comment on above: Performed By: #### L 300.3900, L500.2500, L501.5200, L501.2300, L100.0100 #### [facility] [address] [place], [address] Potassium [Moles/Vol] 3.6 mmol/L Normal 3.3-5.1 [facility] Comment on above: Performed By: #### L 300.3900, L500.2500, L501.5200, L501.2300, L100.0100 #### [facility] [address] [place], [address] Sodium [Moles/Vol] 139 mmol/L Normal 133-145 [facility] Comment on above: Performed By: #### L 300.3900, L500.2500, L501.5200, L501.2300, L100.0100 #### [facility] [address] [place], [address] Urea nitrogen [Mass/Vol] 9 mg/dL Normal 4-19 [facility] Comment on above: Performed By: #### L 300.3900, L500.2500, L501.5200, L501.2300, L100.0100 #### [facility] [address] [place], [address] Basophil percentageOrdered B y: John Catherine on 02-22-2025 Basophils/100 WBC (Bld) 0.8 % Normal 0-[address] [facility] Comment on above: Performed By: #### L 501.080 #### [facility] [address] [place], [address] CBC W/Diff, Automatedon 08-0 Absolute Lymph 2.92 X10 3/uL Normal 0.83-4.51 [facility] Comment on above: Performed By: #### L 501.080 #### [facility] [address] [place], [address] Absolute Neut 3.8 X10 3/uL Normal 2.0-7.7 [facility] Comment on above: Performed By: #### L 501.080 #### [facility] [address] [place], [address] IG% 0.400 Normal 0.0-0.9 [facility] Comment on above: Result Comment: IG% - Immature Granulocytes (promyelocytes, myelocytes and metamyelocytes) > 1% indicates that a LEFT SHIFT is Present. Performed By: #### L 501.080 #### [facility] [address] [place], [address] Lymphocytes/100 WBC (Bld) 37.3 % Normal 19-41 [facility] Comment on above: Performed By: #### L 501.080 #### [facility] [address] [place], [address] Nucleated RBC (Bld) [#/Vol] 0 10*3/uL Normal 0-5 [facility] Comment on above: Performed By: #### L 501.080 #### [facility] [address] [place], [address] RDW SD 39.5 fl Normal 35.1-43.9 [facility] Comment on above: Performed By: #### L 501.080 #### [facility] [address] [place], [address] CNOVon 02-22-2025 CNOV Office Visit (FAMPWS) LINA ISAAC ([id number]) 1965 F Date Time Provider Department 02/22/25 3:00 PM SELIN GARCIA FAMPWS During your visit today, we recorded the following information about you: Temperature Pulse Blood pressure 97.7 degrees 110/minute 122/74 Selin Garcia APRN.PRESS SET UP 02/22/2025 5:27 PM Addendum This is a [...] tablet Ta (more content not included)... Normal [facility] Carbon dioxide, total [Moles /volume] in Central venous bloodOrdered By: John Catherine on 02-22-2025 CO2 [Moles/Vol] 24.0 mmol/L 21.0-32.0 [facility] Chest PA and Lateralon 02-22 Chest PA and Lateral [facility] Imaging Services [address] [place] [address] Chest PA and Lateral MR#: [id number] Acct: [id number] Name: LINA ISAAC Rep #: [id number] : 1965 F 59 From: Norberto Marinelli MD PCP: Dr. Jese Zheng, DO Status: REG ER Study: Chest PA and Lateral Date of Exam: 02/22/25 Exam# [id number] Ordering Dr: John Catherine MD PROCEDURE: CHEST [...] in the appropriate clinical context. Reading Location: [facility] CC: Dr. John Catherine MD; Dr. Jese Zheng DO Printing Specialist: Signed Normal [facility] Chloride assayOrdered By: Rosalva Catherine on 02-22-2025 Chloride [Moles/Vol] 103 mmol/L 98-108 [facility] ECG COMPLETEon 02-22-2025 ECG COMPLETE Ventricular Rate : 108 BPM Atrial Rate : 108 BPM P-R Interval : 140 ms QRS Duration : 82 ms Q-T Interval : 348 ms QTC Calculation(Bazett) : 466 ms Calculated P [place] : 51 degrees Calculated R [place] : 5 degrees Calculated T [place] : 93 degrees SINUS TACHYCARDIA LEFT VENTRICULAR HYPERTROPHY WITH REPOLARIZATION ABNORMALITY ( R in aVL ) INFERIOR MYOCARDIAL INFARCTION , AGE UNDETERMINED ABNORMAL ECG Confirmed by MD STRONG QARAB ([id number]) on 02/25/2025 9:42:16 AM NAME : OTIS ISAACMORTEZA PID : [id number] : 1965 Gender : Female Race : ORD : [id number] Procedure Date : Feb 22 2025 15:46:22 Edit Date : Feb 25 2025 09:42:19 Diagnosis: SINUS TACHYCARDIA LEFT VENTRICULAR HYPERTROPHY WITH REPOLARIZATION ABNORMALITY ( R in aVL ) INFERIOR MYOCARDIAL INFARCTION , AGE UNDETERMINED ABNORMAL ECG Confirmed by MD STRONG QARAB ([id number]) on 02/25/2025 9:42:16 AM Test Reason : R07.1 Chest pain on breathing Location : 185 : WO Overread By : MD STRONG QARAB Edited By : MD STRONG QARAB Referred By : , Acquired by : [id number], Alhaji [facility] Emergency Department Summary on 02-22-2025 Emergency Department Summary [facility] Medical Records Department [address] [place] [address] Emergency Department Summary 02/22/25 MR#: [id number] Acct: [id number] Name: PONCHOLINA Rep #: [id number] : 1965 59 From: John Catherine MD PCP: Dr. Jese Zheng DO Status:REG ER Location: ED HPI History of Present Illness Chief Complaint: Chest Pain Informant: patient and EMS Narrative Narrative: 59-year-old female was sent from the PCPs office at [facility] due to the patient having intermittent [...] thought I was having a heart attack. [facility] Medical History (Updated 02/22/25 @ 20:09 [...] Time tramadol (more content not included)... Normal [facility] Eosinophil percentageOrdered By: John Catherine on 02-22-2025 Eosinophils/100 WBC (Bld) 1.7 % Normal 0-5 [facility] Comment on above: Performed By: #### L 501.080 #### [facility] [address] [place], [place], [address] Erythrocyte distribution wid th ratioOrdered By: John Catherine on 02-22-2025 Erythrocyte distribution width (RBC) [Ratio] 12.2 % Normal 11.6-14.6 [facility] Comment on above: Performed By: #### L 501.080 #### [facility] [address] [place], [place], [address] Erythrocyte distribution wid th standard deviationOrdered By: John Catherine on 02-22-2025 Erythrocyte distribution width (RBC) [Ratio] 39.5 fl 35.1-43.9 [facility] Glomerular filtration rate ( GFR) estimation/1.73 sq m using serum, plasma, or whole bOrdered By: John Catherine on 02-22-2025 GFR/1.73 sq M.predicted among non-blacks MDRD (S/P/Bld) [Vol rate/Area] 104 mL/min/{1.73_m2} >60 [facility] Comment on above: mL/min/1.73m2 CKD-EP I Creatinine Equation (2020) Hemoglobin measurementOrdere d By: John Catherine on 02-22-2025 Hemoglobin (Bld) [Mass/Vol] 13.3 g/dL Normal 12.0-15.0 [facility] Comment on above: Performed By: #### L 501.080 #### [facility] [address] [place], [address] Immature granulocytes/100 WB C Auto (Bld)Ordered By: John Catherine on 02-22-2025 Immature granulocytes/100 WBC (Bld) 0.400 % 0.0-0.9 [facility] Comment on above: IG% - Immature Granu locytes (promyelocytes, myelocytes and metamyelocytes) > 1% indicates that a LEFT SHIFT is Present. L501.4021on 02-22-2025 Trop T High Sen 181 ng/L Invalid Interpretation Code <=14 [facility] Comment on above: Result Comment: Crit ical Result(s) Called MMARTIN at: 1905 by: ALYX??Results read back by same. Performed By: #### L 300.3900, L500.2500, L501.5200, L501.2300, L100.0100 #### [facility] [address] [facility] [place], [address] MCV (mean corpuscular volume ) determinationOrdered By: John Catherine on 02-22-2025 MCV (RBC) [Entitic vol] 89.3 fL Normal 81-[address] [facility] Comment on above: Performed By: #### L 501.080 #### [facility] [address] [facility] [place], [address] Mean corpuscular hemoglobin (MCH) determinationOrdered By: John Catherine on 02-22-2025 MCH (RBC) [Entitic mass] 31.0 pg Normal 27.0-32.0 [facility] Comment on above: Performed By: #### L 501.080 #### [facility] [address] [facility] [place], [address] Mean corpuscular hemoglobin concentration (MCHC) determinationOrdered By: John Catherine on 02-22-2025 MCHC (RBC) [Mass/Vol] 34.7 g/dL Normal 32-36 [facility] Comment on above: Performed By: #### L 501.080 #### [facility] [address] [place], [place], [address] Mean platelet volume determi nationOrdered By: John Catherine on 02-22-2025 Platelet mean volume (Bld) [Entitic vol] 10.0 fL Normal 6.2-12.0 [facility] Comment on above: Performed By: #### L 501.080 #### [facility] [address] [place], [address] Monocyte percentageOrdered B y: John Catherine on 02-22-2025 Monocytes/100 WBC (Bld) 11.0 % High 0-[address] [facility] Comment on above: Performed By: #### L 501.080 #### [facility] [address] [place], [place], [address] Natriuretic peptide.B prohor ten N-Terminal [Mass/volume] in Serum or PlasmaOrdered By: John Catherine on 02-22-2025 Natriuretic peptide.B prohormone N-Terminal [Mass/Vol] 3685 pg/mL High <900 [facility] Comment on above: Heart Failure Unlike ly: < 300 pg/mLHeart Failure Likely< 50 Years: > 450 pg/mL50-75 Years: > 900 pg/mL>75 Years: > 1800 pg/mL Neutrophil percentageOrdered By: John Catherine on 02-22-2025 Neutrophils/100 WBC (Bld) 48.8 % Normal 47-70 [facility] [facility] Comment on above: Performed By: #### L 501.080 #### [facility] [address] [place], [place], [id number] Nucleated red blood cell per centageOrdered By: John Catherine on 02-22-2025 Nucleated RBC/100 WBC (Bld) [Ratio] 0 % 0-5 [facility] Platelet countOrdered By: Rosalva Catherine on 02-22-2025 Platelets (Bld) [#/Vol] 278 10*3/uL Normal 150-450 [facility] Comment on above: Performed By: #### L 501.080 #### [facility] [address] [place], [place], [address] Potassium measurement (mass/ volume)Ordered By: John Catherine on 02-22-2025 Potassium (Unsp spec) [Mass/Vol] 3.6 mmol/L 3.3-5.1 [facility] Pro- Brain NATRIURETIC PEPTI Francy 02-22-2025 Natriuretic peptide B (Bld) [Mass/Vol] 3685 pg/mL High <=900 [facility] Comment on above: Result Comment: Hear t Failure Unlikely: < 300 pg/mL Heart Failure Likely < 50 Years: > 450 pg/mL 50-75 Years: > 900 pg/mL >75 Years: > 1800 pg/mL Performed By: #### L 501.080 #### [facility] [address] [facility] [place], [place], [address] Serum creatinine measurement (mass/volume)Ordered By: John Catherine on 02-22-2025 Creatinine [Mass/Vol] 0.57 mg/dL Low 0.70-1.20 [facility] Serum glucose measurement (m ass/volume)Ordered By: John Catherine on 02-22-2025 Glucose [Mass/Vol] 270 mg/dL High 70-99 [facility] Serum or plasma calcium delgado urement (mass/volume)Ordered By: John Catherine on 02-22-2025 Calcium [Mass/Vol] 9.3 mg/dL 7.6-11.0 [facility] Serum or plasma urea nitroge n measurement (mass/volume)Ordered By: John Catherine on 02-22-2025 Urea nitrogen [Mass/Vol] 9 mg/dL 4-19 [facility] Sodium levelOrdered By: Bryan Catherine on 02-22-2025 Sodium [Moles/Vol] 139 mmol/L 133-145 [facility] Troponin T HS 2 HRon 025 Trop T High Sen 160 ng/L Invalid Interpretation Code <=14 [facility] Comment on above: Result Comment: Crit ical Result(s) Called MMARTIN at:2003 by: ALYX??Results read back by same. Performed By: #### L 499.0042 ####[facility] [address] [place], [place], [address] Troponin T.cardiac [Mass/vol ume] in Serum or Plasma by High sensitivity methodOrdered By: John Catherine on 02-22-2025 Troponin T.cardiac High sensitivity method [Mass/Vol] 164 ng/L High <14 [facility] Comment on above: Critical Result(s) C alled at: 0008 by: MISHEL CASANOVA TO [employer]. Results read back by same. Troponin T.cardiac High sensitivity method [Mass/Vol] 160 ng/L High <14 [facility] Comment on above: Critical Result(s) C alled MMARTIN at:2004 by: ALYX Results read back by same. Troponin T.cardiac High sensitivity method [Mass/Vol] 181 ng/L High <14 [facility] Comment on above: Critical Result(s) C alled MMARTIN at: 1905 by: ALYX Results read back by same. White blood cell (WBC) count Ordered By: John Catherine on 02-22-2025 WBC (Bld) [#/Vol] 7.8 10*3/uL Normal 4.4-11.0 [facility] Comment on above: Performed By: #### L 501.080 #### [facility] [address] [place], [place], [address] CNPTita 01-25-2025 CNPN Telephone ([facility]) LINA ISAAC ([id number]) 1965 F Date Time Provider Department 01/25/25 SUSANA GARCIA [facility] During your visit today, we recorded the following information about you: Susana Garcia lindsay 01/25/2025 1:43 PM Signed BMP WNL since starting Jardiance and A1c showing improvement to 9.6% (from 10.4% on 12/30/24). Jardiance dose recently increased at recent pharmacy visit. Next PharmD f/up on 02/25/25 Susana Garcia, PharmD, BCACP Primary Care Clinical Data Center Technician Allergies As of Date: 01/25/2025 Noted Allergy [...] cough. - Oral Medication Containers (SHARPS CONTAINER) [facility] Use to collect sharps as directed. - flash glucose scanning reader (FREESTYLE MICHI 3 READER) Use to monitor blood glucose continuously - Insulin Poteet, Disposable, (UNIFINE PENTIPS) 31 gauge x 3/16 [...] (BAQSIMI) 3 mg/actuation nasal spray Use 1 [place] in the nose as needed for low [...] Reaction, situatio (more content not included)... Normal [facility] Basic metabolic 2000 panelon 01-21-2025 Anion gap [Moles/Vol] 13 mmol/L Normal 8-15 [facility] Comment on above: Order Comment: Speci men Type: BLOOD SPECIMENOrdering Facility: [facility] Address: [address] [place] [address] Performed By: #### 2 4321-2 ####[facility] LABCLIA [id number] [place] [address] [place] Calcium [Mass/Vol] 9.7 mg/dL Normal 8.5-10.2 [facility] Comment on above: Order Comment: Speci men Type: BLOOD SPECIMENOrdering Facility: [facility] Address: [address] [id number] Performed By: #### 2 4321-2 ####[facility] LABCLIA [id number] [place] [address] [place] Chloride [Moles/Vol] 103 mmol/L Normal 98-107 [facility] Comment on above: Order Comment: Speci men Type: BLOOD SPECIMENOrdering Facility: [facility] Address: [address] [place], [place] [address] Performed By: #### 2 4321-2 ####[facility] LABCLIA [id number] [place] [id number] [place] CO2 [Moles/Vol] 22 mmol/L Normal 22-30 [facility] Comment on above: Order Comment: Speci men Type: BLOOD SPECIMENOrdering Facility: [facility] Address: [address] [place] [address] Performed By: #### 2 4321-2 ####[facility] LABIA [id number] [place] [address] [place] Creatinine [Mass/Vol] 0.44 mg/dL Low 0.58-0.96 [facility] Comment on above: Order Comment: Speci men Type: BLOOD SPECIMENOrdering Facility: [facility] Address: [address] [place] [address] Performed By: #### 2 4321-2 ####[facility] LABIA [id number] [place] [address] [place] Creatinine and Glomerular filtration rate.predicted panel (S/P/Bld) 111 mL/min/1.73m??? Normal >=60 [facility] Comment on above: Order Comment: Speci men Type: BLOOD SPECIMENOrdering Facility: [facility] Address: [address] [place] [address] Result Comment: Iwona mated Glomerular Filtration Rate [...] actual GFR. Performed By: #### 2 4321-2 ####[facility] LABCLIA [id number] [place] [id number] [place] Glucose [Mass/Vol] 235 mg/dL High 74-99 [facility] Comment on above: Order Comment: Yuliet angulo Type: BLOOD SPECIMENOrdering Facility: [facility] Address: [address] [place] [address] Result Comment: The English Diabetes Association (ADA) provides guidance for cutoff [...] Standards of Medical Care in Diabetes 2016, English Diabetes Association. Diabetes Care. 2016.39(Suppl 1). Performed By: #### 2 4321-2 ####[facility] LABCLIA [id number] [place] [address] [place] Potassium [Moles/Vol] 3.9 mmol/L Normal 3.7-5.1 [facility] Comment on above: Order Comment: Yuliet angulo Type: BLOOD SPECIMENOrdering Facility: [facility] Address: [address] [place] [address] Performed By: #### 2 4321-2 ####[facility] LABCLIA [id number] [place] [address] [place] Sodium [Moles/Vol] 138 mmol/L Normal 136-144 [facility] Comment on above: Order Comment: Yuliet angulo Type: BLOOD SPECIMENOrdering Facility: [facility] Address: [address] [place], [place] [address] Performed By: #### 2 4321-2 ####[facility] LABCLIA [id number] [address] [address] [place] Urea nitrogen [Mass/Vol] 10 mg/dL Normal 7-21 [facility] Comment on above: Order Comment: Speci men Type: BLOOD SPECIMENOrdering Facility: [facility] Address: [address] [place] [address] Performed By: #### 2 4321-2 ####[facility] LABCLIA [id number] [place]EN [address] [facility] CNOVon 01-21-2025 CNOV Office Visit (PHMEWO) LINA ISAAC ([id number]) 1965 F Date Time Provider Department 01/21/25 [...] any Novolog today because she needs to burr picker refill Confirmed starting Jardiance and tolerating [...] capsule 1 Oral Medication Containers (SHARPS CONTAINER) [facility] Use to collect sharps as directed. 1 Each 0 flash glucose scanning reader (FREESTYLE MICHI 3 READER) Use to monitor blood glucose continuously 1 Each 0 Insulin Poteet, Disposable, (UNIFINE PENTIPS) 31 gauge x 3/16 Use as directed 4 times daily with insulin 400 Each 3 FLUoxetine (PROZAC) 20 mg capsule Take 1 capsule by mouth once daily. In the morning, for depression 90 capsule 1 gabapentin (NEURONTIN) 100 mg capsule Take 1 (more content not included)... Normal [facility] HbA1c (Bld)on 01-21-2025 Average glucose Estimated from glycated hemoglobin (Bld) [Mass/Vol] 229 mg/dL [facility] Comment on above: eAG: (Estimated aver age glucose) is a calculated value from HgbA1c and is customer assistance representative of the average blood glucose level in the last 2-3 month period. HbA1c (Bld) [Mass fraction] 9.6 % High 4.3 - 5.6 % [facility] Comment on above: English Diabetes As sociation guidelines indicate that patients with HgbA1c in the range 5.7-6.4% are at increased risk for development of diabetes, and intervention by lifestyle modification may be beneficial. HgbA1c greater or equal to 6.5% is considered diagnostic of diabetes. Interpretation and review of laboratory results Abnormal [facility] Average glucose Estimated from glycated hemoglobin (Bld) [Mass/Vol] 229 mg/dL Normal [facility] Comment on above: Order Comment: Yuliet angulo Type: BLOOD SPECIMENOrdering Facility: [facility] Address: [address] [place] [address] Result Comment: eAG: (Estimated average glucose) is a calculated value from HgbA1c and is customer assistance representative of the average blood glucose level in the last 2-3 month period. Performed By: #### 5 5454-3 ####[facility] LABIA [id number] [place] [address] [place] HbA1c (Bld) [Mass fraction] 9.6 % High 4.3-5.6 [facility] Comment on above: Order Comment: Yuliet angulo Type: BLOOD SPECIMENOrdering Facility: [facility] Address: [address] [place] [address] Result Comment: Amer ican Diabetes Association guidelines indicate that patients with HgbA1c in the range 5.7-6.4% are at increased risk for development of diabetes, and intervention by lifestyle modification may be beneficial. HgbA1c greater or equal to 6.5% is considered diagnostic of diabetes. Performed By: #### 5 5454-3 ####[facility] LABIA [id number] [address] [place] CNOVon 12-30-2024 CNOV Office Visit (FAMPWS) LINA ISAAC ([id number]) 1965 F Date Time Provider Department 12/30/24 [...] pad and topical Voltaren. She has taken [place] with relief when pain is severe. Right [...] 1ST INCAL (more content not included)... Normal [facility] HEMOGLOBIN A1C (POC)on 12-30 HbA1c (Bld) [Mass fraction] 10.4 % Abnormal 4.3 - 5.6 % [facility] Comment on above: Location:[address], [place], [address] Point of care (POC) Hemoglobin A1c (HGBA1C) [...] specific diabetes management situations: The POC device alarm operator provides a normal range of 4.2% to 6.5% for the HGBA1C POC test. However, the English Diabetes Association guidelines indicate that patients with [...] Interpretation and review of laboratory results Abnormal [facility] US DVT LOWER LTon 12-11-2024 US DVT [...] imaged segments of the left lower extremity. Printing Specialist: SANTOSH Transcribe Date/Time: Dec 13 2024 9:12A Dictated by : TAMARA PORTILLO MD This examination was interpreted and the report reviewed and electronically signed by: TAMARA PORTILLO MD on Dec 13 2024 9:12AM EST [id number] Normal [facility] CNOVon 12-10-2024 CNOV Office Visit (FAMPWS) LINA ISAAC ([id number]) 1965 F Date Time Provider Department 12/10/24 2:20 PM NATALI KLEIN During your visit today, we recorded the following information about you: Pulse Respiration Blood pressure Weight 90/minute 12/minute 120/70 94.5 kg Natali Klein APRN.PRESS SET UP 12/10/2024 2:46 PM Signed Get your ultasound [...] DRISDOL) Aditya (more content not included)... Normal [facility] CNOVon 11-26-2024 CNOV Office Visit (MEWO) LINA ISAAC ([id number]) 1965 F Date Time Provider Department 11/26/24 [...] capsule 1 Oral Medication Containers (SHARPS CONTAINER) [facility] Use to collect sharps as directed. 1 Each 0 flash glucose scanning reader (FREESTYLE MICHI 3 READER) Use to monitor blood glucose continuously 1 Each 0 Insulin Poteet, Disposable, (UNIFINE PENTIPS) 31 gauge x 3/16 Use as directed 4 times daily with insulin 400 Each 3 FLUoxetine (PROZAC) 20 mg capsule Take 1 capsule by mouth once daily. In the morning, for depression 90 capsule 1 gabapentin (NEURONTIN) 100 mg capsule Take 1-2 capsules by mouth daily at bedtime for 30 (more content not included)... Normal [facility] CNOVon 10-29-2024 CNOV Office Visit (PHMEWO) LINA ISAAC ([id number]) 1965 F Date Time Provider Department 10/29/24 2:30 PM SUSANA GARCIA During your visit today, we recorded the following information about you: Susana Garcia [facility] 10/29/2024 3:09 PM Signed Primary Care Pharmacy [...] capsule 1 Oral Medication Containers (SHARPS CONTAINER) [facility] Use to collect sharps as directed. 1 Each 0 flash glucose scanning reader (FREESTYLE MICHI 3 READER) Use to monitor blood glucose continuously 1 Each 0 Insulin Poteet, Disposable, (UNIFINE PENTIPS) 31 gauge x 3/16 Use as directed 4 times daily with insulin 400 Each 3 FLUoxetine (PROZAC) 20 mg capsule Take 1 capsule by mouth once daily. In the morning, for depression 90 capsule 1 gabapentin (NEURONTIN) 100 mg capsule Aditya (more content not included)... Normal [facility] CNOVon 09-23-2024 CNOV Office Visit (FAMPWS) PONCHOOTISYUEJOHNNY Del Angel ([id number]) 1965 F Date Time Provider Department 09/23/24 3:[address] [facility] During your visit today, we [...] ventrio S (more content not included)... Normal [facility] HEMOGLOBIN A1C (POC)on 09-23 HbA1c (Bld) [Mass fraction] 11.2 % Abnormal 4.3 - 5.6 % [facility] Comment on above: Location:[facility], [address] [place] [address], [place], [address] Point of care (POC) Hemoglobin A1c (HGBA1C) [...] specific diabetes management situations: The POC device alarm operator provides a normal range of 4.2% to 6.5% for the HGBA1C POC test. However, the English Diabetes Association guidelines indicate that patients with [...] Interpretation and review of laboratory results Abnormal [facility] CNOVon 07-23-2024 CNOV Office Visit (PHMEWO) LINA ISAAC ([id number]) 1965 F Date Time Provider Department 07/23/24 2:30 PM [facility] During your visit today, we [...] capsule 1 Oral Medication Containers (SHARPS CONTAINER) [facility] Use to collect sharps as directed. 1 Each 0 flash glucose scanning reader (FREESTYLE MICHI 3 READER) Use to monitor blood glucose continuously 1 Each 0 insulin aspart U-100 (NOVOLOG U-100 INSULIN ASPART) 100 unit/mL Inject 16 units subcutaneously as directed plus sliding scale with meals. Insulin Poteet, Disposable, (UNIFINE PENTIPS) 31 gauge x 3/16 [...] (BAQSIMI) 3 mg/actuation nasal spray Use 1 [place] in the nose as needed (more content not included)... Normal [facility] 07-21-2024 [facility] Telephone (ORTHWS) LINA ISAAC ([id number]) 1965 F Date Time Provider Department 07/21/24 [...] cough. - Oral Medication Containers (SHARPS CONTAINER) [facility] Use to collect sharps as directed. - flash glucose scanning reader (FREESTYLE MICHI 3 READER) Use to monitor blood glucose continuously - insulin aspart U-100 (NOVOLOG U-100 INSULIN ASPART) 100 unit/mL Inject 16 units subcutaneously as directed plus sliding scale with meals. - Insulin Poteet, Disposable, (UNIFINE PENTIPS) 31 gauge x 3/16 [...] (BAQSIMI) 3 mg/actuation nasal spray Use 1 [place] in the nose as needed for low [...] [F43.0] 05/18/2010 (more content not included)... Normal [facility] FRUCTOSAMINE BLDon Fructosamine [Moles/Vol] 468 umol/L High 205 - 285 umol/L [facility] Fructosamine [Moles/Vol]on 1 Interpretation and review of laboratory results Abnormal [facility] HbA1c (Bld)on 07-21-2024 Average glucose Estimated from glycated hemoglobin (Bld) [Mass/Vol] 255 mg/dL [facility] Comment on above: eAG: (Estimated aver age glucose) is a calculated value from HgbA1c and is customer assistance representative of the average blood glucose level in the last 2-3 month period. HbA1c (Bld) [Mass fraction] 10.5 % High 4.3 - 5.6 % [facility] Comment on above: English Diabetes As sociation guidelines indicate that patients with HgbA1c in the range 5.7-6.4% are at increased risk for development of diabetes, and intervention by lifestyle modification may be beneficial. HgbA1c greater or equal to 6.5% is considered diagnostic of diabetes. Interpretation and review of laboratory results Abnormal [facility] CNOVon 07-20-2024 CNOV Office Visit (ORTHWS) LINA ISAAC ([id number]) 1965 F Date Time Provider Department 07/20/24 3:45 PM JOHN BROWN During your visit today, we recorded the following information about you: oJhn Brown MD 08/02/2024 9:35 AM Signed John Brown MD Department of Orthopaedics Orthopaedics [address] [facility] [address] Dept: [phone] Dept July 20, 2025 CHIEF COMPLAINT: New of the Right Hand HPI Patient c/o R hand pain x1 mo. No known injury. Patient reports hand tight and locks when she makes fist. Trouble twisting, opening jars/doors, etc. PCP worked up for gout and pt was on abx with no relief. 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 [...] hand. IMAGING: IMPRESSION: No acute osseous abnormality Printing Specialist: [facility] Transcribe Date/Time: Jun 26 2024 12:23P Dictated [...] Start d (more content not included)... Normal [facility] Fructosamine SerPl-sCncon Fructosamine [Moles/Vol] 468 umol/L High 205-285 [facility] Comment on above: Order Comment: Speci men Type: BLOOD SPECIMENOrdering Facility: [facility] Address: [address] [place] [address] Performed By: #### 1 5069-8 ####[facility] LABCLIA [id number] [place] [address] [place] HbA1c (Bld)on 07-20-2024 Average glucose Estimated from glycated hemoglobin (Bld) [Mass/Vol] 255 mg/dL Normal [facility] Comment on above: Order Comment: Yuliet angulo Type: BLOOD SPECIMENOrdering Facility: [facility] Address: [address] [place] [address] Result Comment: eAG: (Estimated average glucose) is a calculated value from HgbA1c and is customer assistance representative of the average blood glucose level in the last 2-3 month period. Performed By: #### 5 5454-3 ####[facility] LABCLIA [id number] [address] STATES OF [facility] HbA1c (Bld) [Mass fraction] 10.5 % High 4.3-5.6 [facility] Comment on above: Order Comment: Yuliet angulo Type: BLOOD SPECIMENOrdering Facility: [facility] Address: [address] [place] [address] Result Comment: [place] ican Diabetes Association guidelines indicate that patients with HgbA1c in the range 5.7-6.4% are at increased risk for development of diabetes, and intervention by lifestyle modification may be beneficial. HgbA1c greater or equal to 6.5% is considered diagnostic of diabetes. Performed By: #### 5 5454-3 ####[facility] LABCLIA [id number] [address] OF [facility] LINA ISA[facility] ([id number]) 1965 F Date Time Provider Department 07/16/24 [facility] During your visit today, we recorded the [...] Fully Assessed Reason for Visit: Patient Question [5967] Primary Visit Diagnosis:Right hand pain [M79.641] Order(s):CONSULT TO ORTHOPAEDICS [9026] Order #: [id number]: 1 FUTURE Prescriptions as of 07/28/2024 - [...] cough. - Oral Medication Containers (SHARPS CONTAINER) [facility] Use to collect sharps as directed. - flash glucose scanning reader (FREESTYLE MICHI 3 READER) Use to monitor blood glucose continuously - Insulin Poteet, Disposable, (UNIFINE PENTIPS) 31 gauge x 3/16 [...] (BAQSIMI) 3 mg/actuation nasal spray Use 1 [place] in the nose as needed for low [...] Skin [ (more content not included)... Normal [facility] CNPTita 07-06-2024 CNPN Telephone (FAMPWS) LINA ISAAC ([id number]) 1965 F Date Time Provider Department 07/06/24 [facility] During your visit today, we recorded the [...] (rash, skin lesions). - flash glucose sensor ([employer]enway Summer LLCYLE MICHI 14 DAY SENSOR) kit Apply sensor [...] day for 14 days. - Blood-Glucose Sensor ([employer]en[employer] Summer LLCYLE MICHI 3 PLUS SENSOR) ingrid Use to [...] as directed. - flash glucose scanning reader (Men RockSTYLE MICHI 3 READER) Use to monitor blood glucose continuously - insulin aspart U-100 (NOVOLOG U-100 INSULIN ASPART) 100 unit/mL Inject 16 units subcutaneously as directed plus sliding scale with meals. - Insulin Poteet, Disposable, (UNIFINE PENTIPS) 31 gauge x 3/16 [...] (BAQSIMI) 3 mg/actuation nasal spray Use 1 [place] in the nose as needed for low [...] 05/18/2011 06/24/2012 Pelvic pain 07/10/2012 08/11/2015 Dyspareunia [[id number]] 07/10/2012 08/11/2015 Fibroids [D21.9] 07/10 (more content not included)... Normal [facility] CNPN Telephone ([facility]) LINA ISAAC ([id number]) 1965 F Date Time Provider Department 07/06/24 SUSANA GARCIA [facility] During your visit today, we recorded [...] Susana Garcia, PharmD, BCACP Primary Care Clinical Data Center Technician 07/06/2024 2:01 PM Allergies As of Date: [...] plus sliding scale with meals. - Insulin Poteet, Disposable, (UNIFINE PENTIPS) 31 gauge x 3/16 [...] (BAQSIMI) 3 mg/actuation nasal spray Use 1 [place] in the nose as needed for low [...] whether *05/13/2007 (more content not included)... Normal [facility] CBC W Auto Differential pane l (Bld)on 06-23-2024 Basophils (Bld) [#/Vol] 0.06 10*3/uL Normal <0.11 [facility] Comment on above: Order Comment: Speci men Type: BLOOD SPECIMENOrdering Facility: [facility] Address: [address] [place], [place] [address] Performed By: #### 4 537-7, 89577-0 ####[facility] LABCLIA [id number] [place] [address] [place] Basophils/100 WBC (Bld) 0.8 % Normal [facility] Comment on above: Order Comment: Speci men Type: BLOOD SPECIMENOrdering Facility: [facility] Address: [address] [place] [address] Performed By: #### 4 537-7, 23926-1 ####[facility] LABCLIA [id number] [place] [address] [place] Differential cell count method Nom (Bld) Auto Normal [facility] Comment on above: Order Comment: Speci men Type: BLOOD SPECIMENOrdering Facility: [facility] Address: [address] [place] [address] Performed By: #### 4 537-7, 71000-5 ####[facility] LABCLIA [id number] [place] [address] [place] Eosinophils (Bld) [#/Vol] 0.18 10*3/uL Normal <0.46 [facility] Comment on above: Order Comment: Speci men Type: BLOOD SPECIMENOrdering Facility: [facility] Address: [address] [place] [address] Performed By: #### 4 537-7, 07794-6 ####[facility] LABCLIA [id number] [place] [address] [place] Eosinophils/100 WBC (Bld) 2.5 % Normal [facility] Comment on above: Order Comment: Speci men Type: BLOOD SPECIMENOrdering Facility: [facility] Address: [address] [place] [address] Performed By: #### 4 537-7, 09950-3 ####[facility] LABCLIA [id number] [place] [address] [place] Erythrocyte distribution width (RBC) [Ratio] 11.9 % Normal 11.5-15.0 [facility] Comment on above: Order Comment: Speci men Type: BLOOD SPECIMENOrdering Facility: [facility] Address: [address] [place] [address] Performed By: #### 4 537-7, 99029-3 ####[facility] LABCLIA [id number] [place] [address] [place] Hematocrit (Bld) [Volume fraction] 40.1 % Normal 36.0-46.0 [facility] Comment on above: Order Comment: Speci men Type: BLOOD SPECIMENOrdering Facility: [facility] Address: [address] [place] [address] Performed By: #### 4 537-7, 21630-8 ####[facility] LABCLIA [id number] [place] [address] [place] Hemoglobin (Bld) [Mass/Vol] 13.6 g/dL Normal 11.5-15.5 [facility] Comment on above: Order Comment: Speci men Type: BLOOD SPECIMENOrdering Facility: [facility] Address: [address] [place] [address] Performed By: #### 4 537-7, 79363-0 ####[facility] LABCLIA [id number] [place] [address] [place] Immature granulocytes (Bld) [#/Vol] 0.04 10*3/uL Normal <0.10 [facility] Comment on above: Order Comment: Speci men Type: BLOOD SPECIMENOrdering Facility: [facility] Address: [address] [place] [address] Performed By: #### 4 537-7, 31923-2 ####[facility] LABCLIA [id number] [place] [address] [place] Immature granulocytes/100 WBC (Bld) 0.5 % Normal [facility] Comment on above: Order Comment: Speci men Type: BLOOD SPECIMENOrdering Facility: [facility] Address: [address] [place] [address] Performed By: #### 4 537-7, 40991-4 ####[facility] LABCLIA [id number] [place] [address] [place] Lymphocytes (Bld) [#/Vol] 3.41 10*3/uL Normal 1.00-4.00 [facility] Comment on above: Order Comment: Speci men Type: BLOOD SPECIMENOrdering Facility: [facility] Address: [address] [place] [address] Performed By: #### 4 537-7, 57549-5 ####[facility] LABIA [id number] [place] [address] [place] Lymphocytes/100 WBC (Bld) 46.6 % Normal [facility] Comment on above: Order Comment: Speci men Type: BLOOD SPECIMENOrdering Facility: [facility] Address: [address] [place] [address] Performed By: #### 4 537-7, 17029-9 ####[facility] LABIA [id number] [place] [address] [place] MCH (RBC) [Entitic mass] 31.0 pg Normal 26.0-34.0 [facility] Comment on above: Order Comment: Speci men Type: BLOOD SPECIMENOrdering Facility: [facility] Address: [address] [place] [address] Performed By: #### 4 537-7, 70775-9 ####[facility] LABIA [id number] [place] [address] [place] MCHC (RBC) [Mass/Vol] 33.9 g/dL Normal 30.5-36.0 [facility] Comment on above: Order Comment: Speci men Type: BLOOD SPECIMENOrdering Facility: [facility] Address: [address] [place] [address] Performed By: #### 4 537-7, 01453-0 ####[facility] LABCLIA [id number] [place] [address] [place] MCV (RBC) [Entitic vol] 91.3 fL Normal 80.0-100.0 [facility] Comment on above: Order Comment: Speci men Type: BLOOD SPECIMENOrdering Facility: [facility] Address: [address] [place] [address] Performed By: #### 4 537-7, 30370-3 ####[facility] LABIA [id number] [place] [address] [place] Monocytes (Bld) [#/Vol] 0.62 10*3/uL Normal <0.87 [facility] Comment on above: Order Comment: Speci men Type: BLOOD SPECIMENOrdering Facility: [facility] Address: [address] [place] [address] Performed By: #### 4 537-7, 80877-6 ####[facility] LABIA [id number] [place] [address] [place] Monocytes/100 WBC (Bld) 8.5 % Normal [facility] Comment on above: Order Comment: Speci men Type: BLOOD SPECIMENOrdering Facility: [facility] Address: [address] [place] [address] Performed By: #### 4 537-7, 87586-9 ####[facility] LABIA [id number] [place] [address] [place] Neutrophils (Bld) [#/Vol] 3.00 10*3/uL Normal 1.45-7.50 [facility] Comment on above: Order Comment: Speci men Type: BLOOD SPECIMENOrdering Facility: [facility] Address: [address] [place] [address] Performed By: #### 4 537-7, 88233-4 ####[facility] LABIA [id number] [place] [address] [place] Neutrophils/100 WBC (Bld) 41.1 % Normal [facility] Comment on above: Order Comment: Speci men Type: BLOOD SPECIMENOrdering Facility: [facility] Address: [address] [place] [address] Performed By: #### 4 537-7, 84286-0 ####[facility] LABCLIA [id number] [place] [address] [place] Nucleated RBC (Bld) [#/Vol] 10*3/uL Normal <0.01 [facility] Comment on above: Order Comment: Speci men Type: BLOOD SPECIMENOrdering Facility: [facility] Address: [address] [place] [address] Performed By: #### 4 537-7, 20573-7 ####[facility] LABCLIA [id number] [place] [address] [place] Nucleated RBC/100 WBC (Bld) [Ratio] 0.0 /100 WBC Normal [facility] Comment on above: Order Comment: Speci men Type: BLOOD SPECIMENOrdering Facility: [facility] Address: [address] [place] [address] Performed By: #### 4 537-7, 62060-2 ####[facility] LABCLIA [id number] [place] [address] [place] Platelet mean volume (Bld) [Entitic vol] 10.0 fL Normal 9.0-12.7 [facility] Comment on above: Order Comment: Speci men Type: BLOOD SPECIMENOrdering Facility: [facility] Address: [address] [place] [address] Performed By: #### 4 537-7, 83641-8 ####[facility] LABCLIA [id number] [place] [address] [place] Platelets (Bld) [#/Vol] 259 10*3/uL Normal 150-400 [facility] Comment on above: Order Comment: Speci men Type: BLOOD SPECIMENOrdering Facility: [facility] Address: [address] [place] [address] Performed By: #### 4 537-7, 41674-9 ####[facility] LABCLIA [id number] [place] [address] [place] RBC (Bld) [#/Vol] 4.39 10*6/uL Normal 3.90-5.20 [facility] Comment on above: Order Comment: Speci men Type: BLOOD SPECIMENOrdering Facility: [facility] Address: [address] [place] [address] Performed By: #### 4 537-7, 56613-8 ####[facility] LABCLIA [id number] [place] [address] [place] WBC (Bld) [#/Vol] 7.31 10*3/uL Normal 3.70-11.00 [facility] Comment on above: Order Comment: Speci men Type: BLOOD SPECIMENOrdering Facility: [facility] Address: [address] [place] [address] Performed By: #### 4 537-7, 08330-0 ####[facility] LABCLIA [id number] [place] [address] [place] CNOVon 06-23-2024 CNOV Office Visit (FAMPWS) LINA ISAAC ([id number]) 1965 F Date Time Provider Department 06/23/24 [...] Tubal ligat (more content not included)... Normal [facility] CRP [Mass/Vol] 0.3 mg/dL Normal <0.9 [facility] Comment on above: Order Comment: Speci men Type: BLOOD SPECIMENOrdering Facility: [facility] Address: [address] [place] [address] Performed By: #### 1 988-5, 3084-1 ####[facility] [id number] [place] [address] [place] ESR Westergren method (Bld) [Velocity]on 06-23-2024 ESR (Bld) [Velocity] 15 mm/h Normal 0-20 [facility] Comment on above: Order Comment: Speci men Type: BLOOD SPECIMENOrdering Facility: [facility] Address: [address] [place] [address] Performed By: #### 4 537-7, 40830-5 ####[facility] [id number] [place] [address] [place] Urate [facility] Urate [Mass/Vol] 3.2 mg/dL Normal 2.5-6.6 [facility] Comment on above: Order Comment: Speci men Type: BLOOD SPECIMENOrdering Facility: [facility] Address: [address] [place] [address] Performed By: #### 1 988-5, 3084-1 ####[facility] H[facility] [id number] [place] [address] [place] XR HAND 3V [...] periarticular erosions. IMPRESSION: No acute osseous abnormality Printing Specialist: PSCB Transcribe Date/Time: Jun 26 2024 12:23P Dictated by : MARTHA MCMULLEN MD This examination was interpreted and the report reviewed and electronically signed by: MARTHA MCMULLEN MD on Jun 26 2024 12:25PM EST [id number] CN Normal [facility] LINA ISAAC ([id number]) 1965 F Date Time Provider Department 05/05/[address] [facility] During your visit today, we [...] she is taking vitamin D3 at least 6277-7139 international unit(s) a day with a meal [...] Date Reviewed: 04/23/2024 Reviewed by: Susana Garcia [facility] - Fully Assessed Order(s):ergocalcife rol 50,000 unit [...] cough. - Oral Medication Containers (SHARPS CONTAINER) [facility] Use to collect sharps as directed. - flash glucose scanning reader (FREESTYLE MICHI 3 READER) Use to monitor blood glucose continuously - insulin aspart U-100 (NOVOLOG U-100 INSULIN ASPART) 100 unit/mL Inject 16 units subcutaneously as directed plus sliding scale with meals. - Insulin P[place]et, Disposable, (UNIFINE PENTIPS) 31 gauge x 3/16 [...] (BAQSIMI) 3 mg/actuation nasal spray Use 1 [place] in the nose as needed for low [...] sugar diagnostic (more content not included)... Normal [facility] Randal 05-04-2024 CNPN Telephone (INTMWS) LINA ISAAC ([id number]) 1965 F Date Time Provider Department 05/04/24 JESE ZHENG INTMWS During your visit today, we recorded the following information about you: Rivka Ramírez LPN 05/04/2024 12:02 PM Signed prior authorization approved Payer: [facility] [phone] Note from payer: Your PA request cannot [...] to its destination. To be filled at: [facility] [address] [place] [address] - [address] [facility] - [phone] Allergies As of Date: 05/04/2024 Noted Allergy Reaction OMNICEF (CEFDINIR) 07/10/2019 9 - Itching Comments: Vaginitis severe PROVENTIL (ALBUTEROL SULFATE) 10/10/2006 11 - Vomiting Comments: Can not tolerate generic albuterol 08/22/12 - MEM. TRAMADOL 03/21/2005 4 - Hives Date Reviewed: 04/23/2024 Reviewed by: Susana Garcia [facility] - Fully Assessed Reason for Visit: Insurance [...] daily. - Oral Medication Containers (SHARPS CONTAINER) [facility] Use to collect sharps as directed. - flash glucose scanning reader (FREESTYLE MICHI 3 READER) Use to monitor blood glucose continuously - insulin aspart U-100 (NOVOLOG U-100 INSULIN ASPART) 100 unit/mL Inject 16 units subcutaneously as directed plus sliding scale with meals. - Insulin Poteet, Disposable, (UNIFINE PENTIPS) 31 gauge x 3/16 [...] (BAQSIMI) 3 mg/actuation nasal spray Use 1 [place] in the nose as needed for low [...] [M79.609] 10/15/19 (more content not included)... Normal [facility] CNOVon 04-23-2024 CNOV Office Visit (PHMEWO) LINA ISAAC ([id number]) 1965 F Date Time Provider Department 04/23/24 [...] capsule 3 Oral Medication Containers (SHARPS CONTAINER) [facility] Use to collect sharps as directed. 1 [...] directed plus sliding scale with meals. Insulin Poteet, Disposable, (UNIFINE PENTIPS) 31 gauge x 3/16 [...] (BAQSIMI) 3 mg/actuation nasal spray Use 1 [place] in the nose as needed for low [...] as need (more content not included)... Normal [facility] CNCOon 04-15-2024 CNCO HNO ID: [id number] Author: COORDINATOR, MAMMOGRAPHY, ? Service: ? Author Type: Physician Type: Letter Filed: 04/15/2024 15:17 Note Text: [address] [address] April 16, 2024 PID: [id number] Lina Isaac [address] [place] [address] Dear Ms. Isaac, We are pleased to [...] report will be kept on file at [facility] as part of your permanent medical record and are available for your continuing care. Thank you for allowing us to help in meeting your health care needs. Sincerely, Dr. Rudd Interpreting Radiologist [facility] (Normal over 40) Normal [facility] DBT Breast - bilateral scree stephen 04-15-2024 IMPRESSION: NEGATIVE There is no mammographic evidence of malignancy. A 1 year screening mammogram is recommended. Chichi aguilar/bhupinder:04/15/2024 15:17:05 Pig Farm Manager(s): Luisito Craven)(Mehdi), [facility] letter sent: Normal over 40 Mammogram BI-RADS: [...] Health, Family Medicine, and Medical/Surgical Oncology, the [facility] has carefully reviewed the data and reached [...] their providers when to stop screening mammograms. Printing Specialist: Bhupinder Transcribe Date/Time: Apr 14 2024 4:47P Dictated by : CHICHI RUDD MD This examination was interpreted and the report reviewed and electronically signed by: CHICHI RUDD MD on Apr 15 2024 3:17PM [facility] * * *Final Report* * * DATE OF EXAM: Apr 14 2024 5:30PM [facility] 0582 - [facility] SCREENING W CAROLYN / PROCEDURE REASON: Encounter for screening mammogram for breast cancer * * * * Physician Interpretation * * * * #[id number] - [facility]LL SCREENING W CAROLYN BILATERAL DIGITAL [...] 09/06/2022 mammogram, 08/22/2021 mammogram, 08/17/2020 mammogram - [facility], and 07/21/2019 mammogram - [facility]. The breasts are almost entirely fatty. No significant masses, calcifications, or other findings are seen in either breast. There has been no significant interval change. [place] [facility] Provider, [facility] [place] - 04/15/2024 * * *Final Report* * * DATE OF EXAM: Apr 14 2024 5:30PM [facility] 0582 - [facility] SCREENING W CAROLYN / PROCEDURE REASON: Encounter for screening mammogram for breast cancer * * * * Physician Interpretation * * * * #[id number] - [facility] SCREENING W CAROLYN BILATERAL DIGITAL SCREENING MAMMOGRAM [...] 09/06/2022 mammogram, 08/22/2021 mammogram, 08/17/2020 mammogram - [facility], and 07/21/2019 mammogram - [facility]. The breasts are almost entirely fatty. No significant masses, calcifications, or other findings are seen in either breast. There has been no significant interval change. IMPRESSION IMPRESSION: NEGATIVE There is no mammographic evidence of malignancy. A 1 year screening mammogram is recommended. Chichi aguilar/bhupinder:04/15/2024 15:17:05 Pig Farm Manager(s): Luisito Craven)(M), [facility] letter sent: Normal over 40 Mammogram BI-RADS: [...] Health, Family Medicine, and Medical/Surgical Oncology, the [facility] has carefully reviewed the data and reached [...] their providers when to stop screening mammograms. Printing Specialist: Bhupinder Transcribe Date/Time: Apr 14 2024 4:47P Dictated by : CHICHI RUDD MD This examination was interpreted and the report reviewed and electronically signed by: CHICHI RUDD MD on Apr 15 2024 3:17PM EST [facility] DBT Breast - bilateral scree ningOrdered By: Ccf Provider on 04-15-2024 [facility] DBT Breast - bilateral scree ningon 04-14-2024 Radiology Study observation (narrative) [facility] CHANTELL SCREENING W TOMOon 04-14 CHANTELL SCREENING W CAROLYN * * *Final Report* * * DATE OF EXAM: Apr 14 2024 5:30PM [facility] 0582 - [facility]ANTELL SCREENING W CAROLYN / PROCEDURE REASON: Encounter for screening mammogram for breast cancer * * * * Physician Interpretation * * * * #[id number] - [facility]LL SCREENING W CAROLYN BILATERAL DIGITAL [...] 09/06/2022 mammogram, 08/22/2021 mammogram, 08/17/2020 mammogram - [facility], and 07/21/2019 mammogram - [facility]. The breasts are almost entirely fatty. No significant masses, calcifications, or other findings are seen in either breast. There has been no significant interval change. IMPRESSION: NEGATIVE There is no mammographic evidence of malignancy. A 1 year screening mammogram is recommended. Chichi aguilar/bhupinder:04/15/2024 15:17:05 Pig Farm Manager(s): Luisito Craven (Zachariah)(M), [facility] letter sent: Normal over 40 Mammogram BI-RADS: [...] Health, Family Medicine, and Medical/Surgical Oncology, the [facility] has carefully reviewed the data and reached [...] their providers when to stop screening mammograms. Printing Specialist: Bhupinder Transcribe Date/Time: Apr 14 2024 4:47P Dictated by : CHICHI RUDD MD This examination was interpreted and the report reviewed and electronically signed by: CHICHI RUDD MD on Apr 15 2024 3:17PM EST [id number] CN Normal [facility] 25([place])D3 [facility] 2023 25-hydroxyvitamin D3 [Mass/Vol] 13.8 ng/mL Low 31.0-80.0 [facility] Comment on above: Order Comment: Speci men Type: BLOOD SPECIMENOrdering Facility: [facility] Address: [address] [place] [address] Result Comment: Clas sification of 25 [place] Vitamin D status: Deficiency/Insufficiency: < or = 30 ng/ml. Sufficiency/Optimal Levels: 31-80 ng/mL Toxicity: > 100 ng/mL. Test performed by chemiluminescent immunoassay. Performed By: #### 1 989-3 ####[facility] LABCLIA [id number] [place] [address] [place] ALBUMIN/CREATININE RATIO, UR INEon 03-19-2024 Albumin DL <= 20 mg/L (U) [Mass/Vol] 39.2 mg/L Normal [facility] Comment on above: Order Comment: Speci men Type: URINE SPECIMENOrdering Facility: [facility] Address: [address] [place] [address] Performed By: #### U ACR ####[facility] LABIA [id number] [place] [address] [place] Albumin/Creatinine (U) [Mass ratio] 26 mg/g Normal <30 [facility] Comment on above: Order Comment: Speci men Type: URINE SPECIMENOrdering Facility: [facility] Address: [address] [place] [address] Result Comment: Adul t Male and Female Nephrotic Criteria: <30 mg/g is considered normal to mildly increased 30-300 mg/g is considered moderately increased >300 mg/g is considered severely increased KDIGO. (2013). KDIGO 2012 Clinical Practice Guideline for the Evaluation and Management of Chronic Kidney Disease. Official Journal of the International Society of Nephrology, 3(1), 1-150. Performed By: #### U ACR ####[facility] LABIA [id number] [place] [address] [place] Creatinine (U) [Mass/Vol] 148.3 mg/dL Normal 20.0-300.0 [facility] Comment on above: Order Comment: Speci men Type: URINE SPECIMENOrdering Facility: [facility] Address: [address] [place] [address] Performed By: #### U ACR ####[facility] LABCLIA [id number] [place] [address] [place] CBC W Auto Differential pane l (Bld)on 03-19-2024 Basophils (Bld) [#/Vol] 0.05 10*3/uL Normal <0.11 [facility] Comment on above: Order Comment: Speci men Type: BLOOD SPECIMENOrdering Facility: [facility] Address: [address] [place] [address] Performed By: #### 5 7021-8 ####[facility] LABCLIA [id number] [place] [address] [place] Basophils/100 WBC (Bld) 0.9 % Normal [facility] Comment on above: Order Comment: Speci men Type: BLOOD SPECIMENOrdering Facility: [facility] Address: [address] [place] [address] Performed By: #### 5 7021-8 ####[facility] LABCLIA [id number] [place] [address] [place] Differential cell count method Nom (Bld) Auto Normal [facility] Comment on above: Order Comment: Speci men Type: BLOOD SPECIMENOrdering Facility: [facility] Address: [address] [place] [address] Performed By: #### 5 7021-8 ####[facility] LABCLIA [id number] [place] [address] [place] Eosinophils (Bld) [#/Vol] 0.15 10*3/uL Normal <0.46 [facility] Comment on above: Order Comment: Speci men Type: BLOOD SPECIMENOrdering Facility: [facility] Address: [address] [place] [address] Performed By: #### 5 7021-8 ####[facility] LABCLIA [id number] [place] [address] [place] Eosinophils/100 WBC (Bld) 2.7 % Normal [facility] Comment on above: Order Comment: Speci men Type: BLOOD SPECIMENOrdering Facility: [facility] Address: [address] [place] [address] Performed By: #### 5 7021-8 ####[facility] LABIA [id number] [place] [address] [place] Erythrocyte distribution width (RBC) [Ratio] 12.4 % Normal 11.5-15.0 [facility] Comment on above: Order Comment: Speci men Type: BLOOD SPECIMENOrdering Facility: [facility] Address: [address] [place] [address] Performed By: #### 5 7021-8 ####[facility] LABIA [id number] [place] [address] [place] Hematocrit (Bld) [Volume fraction] 38.9 % Normal 36.0-46.0 [facility] Comment on above: Order Comment: Speci men Type: BLOOD SPECIMENOrdering Facility: [facility] Address: [address] [place] [address] Performed By: #### 5 7021-8 ####[facility] LABIA [id number] [place] [address] [place] Hemoglobin (Bld) [Mass/Vol] 13.1 g/dL Normal 11.5-15.5 [facility] Comment on above: Order Comment: Speci men Type: BLOOD SPECIMENOrdering Facility: [facility] Address: [address] [place] [address] Performed By: #### 5 7021-8 ####[facility] LABIA [id number] [place] [address] [place] Immature granulocytes (Bld) [#/Vol] 10*3/uL Normal <0.10 [facility] Comment on above: Order Comment: Speci men Type: BLOOD SPECIMENOrdering Facility: [facility] Address: [address] [place] [address] Performed By: #### 5 7021-8 ####[facility] LABCLIA [id number] [place] [address] [place] Immature granulocytes/100 WBC (Bld) 0.2 % Normal [facility] Comment on above: Order Comment: Speci men Type: BLOOD SPECIMENOrdering Facility: [facility] Address: [address] [place] [address] Performed By: #### 5 7021-8 ####[facility] LABCLIA [id number] [place] [address] [place] Lymphocytes (Bld) [#/Vol] 2.45 10*3/uL Normal 1.00-4.00 [facility] Comment on above: Order Comment: Speci men Type: BLOOD SPECIMENOrdering Facility: [facility] Address: [address] [place] [address] Performed By: #### 5 7021-8 ####[facility] LABIA [id number] [place] [address] [place] Lymphocytes/100 WBC (Bld) 43.5 % Normal [facility] Comment on above: Order Comment: Speci men Type: BLOOD SPECIMENOrdering Facility: [facility] Address: [address] [place] [address] Performed By: #### 5 7021-8 ####[facility] LABCLIA [id number] [place] [address] [place] MCH (RBC) [Entitic mass] 31.6 pg Normal 26.0-34.0 [facility] Comment on above: Order Comment: Speci men Type: BLOOD SPECIMENOrdering Facility: [facility] Address: [address] [place] [address] Performed By: #### 5 7021-8 ####[facility] LABCLIA [id number] [place] [address] [place] MCHC (RBC) [Mass/Vol] 33.7 g/dL Normal 30.5-36.0 [facility] Comment on above: Order Comment: Speci men Type: BLOOD SPECIMENOrdering Facility: [facility] Address: [address] [place] [address] Performed By: #### 5 7021-8 ####[facility] LABCLIA [id number] [place] [address] [place] MCV (RBC) [Entitic vol] 94.0 fL Normal 80.0-100.0 [facility] Comment on above: Order Comment: Speci men Type: BLOOD SPECIMENOrdering Facility: [facility] Address: [address] [place] [address] Performed By: #### 5 7021-8 ####[facility] LABIA [id number] [place] [address] [place] Monocytes (Bld) [#/Vol] 0.49 10*3/uL Normal <0.87 [facility] Comment on above: Order Comment: Speci men Type: BLOOD SPECIMENOrdering Facility: [facility] Address: [address] [place] [address] Performed By: #### 5 7021-8 ####[facility] LABCLIA [id number] [place] [address] [place] Monocytes/100 WBC (Bld) 8.7 % Normal [facility] Comment on above: Order Comment: Speci men Type: BLOOD SPECIMENOrdering Facility: [facility] Address: [address] [place] [address] Performed By: #### 5 7021-8 ####[facility] LABIA [id number] [place] [address] [place] Neutrophils (Bld) [#/Vol] 2.48 10*3/uL Normal 1.45-7.50 [facility] Comment on above: Order Comment: Speci men Type: BLOOD SPECIMENOrdering Facility: [facility] Address: [address] [place] [address] Performed By: #### 5 7021-8 ####[facility] LABCLIA [id number] [place] [address] [place] Neutrophils/100 WBC (Bld) 44.0 % Normal [facility] Comment on above: Order Comment: Speci men Type: BLOOD SPECIMENOrdering Facility: [facility] Address: [address] [place] [address] Performed By: #### 5 7021-8 ####[facility] LABCLIA [id number] [place] [address] [place] Nucleated RBC (Bld) [#/Vol] 10*3/uL Normal <0.01 [facility] Comment on above: Order Comment: Speci men Type: BLOOD SPECIMENOrdering Facility: [facility] Address: [address] [place] [address] Performed By: #### 5 7021-8 ####[facility] LABIA [id number] [place] [address] [place] Nucleated RBC/100 WBC (Bld) [Ratio] 0.0 /100 WBC Normal [facility] Comment on above: Order Comment: Speci men Type: BLOOD SPECIMENOrdering Facility: [facility] Address: [address] [place] [address] Performed By: #### 5 7021-8 ####[facility] LABIA [id number] [place] [address] [place] Platelet mean volume (Bld) [Entitic vol] 9.9 fL Normal 9.0-12.7 [facility] Comment on above: Order Comment: Speci men Type: BLOOD SPECIMENOrdering Facility: [facility] Address: [address] [place] [address] Performed By: #### 5 7021-8 ####[facility] LABCLIA [id number] [place] [address] [place] Platelets (Bld) [#/Vol] 242 10*3/uL Normal 150-400 [facility] Comment on above: Order Comment: Speci men Type: BLOOD SPECIMENOrdering Facility: [facility] Address: [address] [place] [address] Performed By: #### 5 7021-8 ####[facility] LABCLIA [id number] [place] [address] [place] RBC (Bld) [#/Vol] 4.14 10*6/uL Normal 3.90-5.20 [facility] Comment on above: Order Comment: Speci men Type: BLOOD SPECIMENOrdering Facility: [facility] Address: [address] [place] [address] Performed By: #### 5 7021-8 ####[facility] LABCLIA [id number] [place] [address] [place] WBC (Bld) [#/Vol] 5.63 10*3/uL Normal 3.70-11.00 [facility] Comment on above: Order Comment: Speci men Type: BLOOD SPECIMENOrdering Facility: [facility] Address: [address] [place] [address] Performed By: #### 5 7021-8 ####[facility] LABIA [id number] [place] [address] [place] Comprehensive metabolic 2000 panelon 03-19-2024 Albumin [Mass/Vol] 4.1 g/dL Normal 3.9-4.9 [facility] Comment on above: Order Comment: Speci men Type: BLOOD SPECIMENOrdering Facility: [facility] Address: [address] [place] [address] Performed By: #### 2 4331-1, 2132-9, 56793-7 ####[facility] LABCLIA [id number] [place] [address] [place] ALP [Catalytic activity/Vol] 76 U/L Normal 34-123 [facility] Comment on above: Order Comment: Speci men Type: BLOOD SPECIMENOrdering Facility: [facility] Address: [address] [place] [address] Performed By: #### 2 4331-1, 2132-03, ####[facility] LABCLIA [id number] [place] [address] [place] ALT [Catalytic activity/Vol] 15 U/L Normal 7-38 [facility] Comment on above: Order Comment: Speci men Type: BLOOD SPECIMENOrdering Facility: [facility] Address: [address] [place] [address] Performed By: #### 2 4331-1, 2132-03, ####[facility] LABCLIA [id number] [place] [address] [place] Anion gap [Moles/Vol] 10 mmol/L Normal 8-15 [facility] Comment on above: Order Comment: Speci men Type: BLOOD SPECIMENOrdering Facility: [facility] Address: [address] [place] [address] Performed By: #### 2 4331-1, 2132-03, ####[facility] LABCLIA [id number] [place] [address] [place] AST [Catalytic activity/Vol] 15 U/L Normal 13-35 [facility] Comment on above: Order Comment: Speci men Type: BLOOD SPECIMENOrdering Facility: [facility] Address: [address] [place] [address] Performed By: #### 2 4331-1, 2132-03, ####[facility] LABCLIA [id number] [address] [address] [place] Bilirubin [Mass/Vol] 0.7 mg/dL Normal 0.2-1.3 [facility] Comment on above: Order Comment: Speci men Type: BLOOD SPECIMENOrdering Facility: [facility] Address: [address] [place] [address] Performed By: #### 2 4331-1, 2132-03, ####[facility] LABCLIA [id number] [address] [address] [place] Calcium [Mass/Vol] 9.1 mg/dL Normal 8.5-10.2 [facility] Comment on above: Order Comment: Speci men Type: BLOOD SPECIMENOrdering Facility: [facility] Address: [address] [place] [address] Performed By: #### 2 4331-1, 2132-03, ####[facility] LABCLIA [id number] [place] [address] [place] Chloride [Moles/Vol] 106 mmol/L Normal 98-107 [facility] Comment on above: Order Comment: Speci men Type: BLOOD SPECIMENOrdering Facility: [facility] Address: [address] [place] [address] Performed By: #### 2 4331-1, 2132-03, ####[facility] LABCLIA [id number] [place] [address] [place] CO2 [Moles/Vol] 26 mmol/L Normal 22-30 [facility] Comment on above: Order Comment: Speci men Type: BLOOD SPECIMENOrdering Facility: [facility] Address: [address] [place] [address] Performed By: #### 2 4331-1, 2132-03, ####[facility] LABCLIA [id number] [address] [address] [place] Creatinine [Mass/Vol] 0.47 mg/dL Low 0.58-0.96 [facility] Comment on above: Order Comment: Speci men Type: BLOOD SPECIMENOrdering Facility: [facility] Address: [address] [place] [address] Performed By: #### 2 4331-1, 9, 73951-9 ####[facility] LABIA [id number] [place] [address] [place] Creatinine and Glomerular filtration rate.predicted panel (S/P/Bld) 110 mL/min/1.73m??? Normal >=60 [facility] Comment on above: Order Comment: Yuliet angulo Type: BLOOD SPECIMENOrdering Facility: [facility] Address: [address] [place] [address] Result Comment: Iwona mated Glomerular Filtration Rate [...] GFR. Performed By: #### 2 4331-1, 2132-03, ####[facility] LABIA [id number] [place] [address] [place] Glucose [Mass/Vol] 212 mg/dL High 74-99 [facility] Comment on above: Order Comment: Yuliet angulo Type: BLOOD SPECIMENOrdering Facility: [facility] Address: [address] [place] [address] Result Comment: The English Diabetes Association (ADA) provides guidance for cutoff [...] Standards of Medical Care in Diabetes 2016, English Diabetes Association. Diabetes Care. 2016.39(Suppl 1). Performed By: #### 2 4331-1, 2132-03, ####[facility] LABCLIA [id number] [address] [address] [place] Potassium [Moles/Vol] 4.1 mmol/L Normal 3.7-5.1 [facility] Comment on above: Order Comment: Speci men Type: BLOOD SPECIMENOrdering Facility: [facility] Address: [address] [place] [address] Performed By: #### 2 4331-1, 2132-03, ####[facility] LABCLIA [id number] [address] [address] [place] Protein [Mass/Vol] 6.8 g/dL Normal 6.3-8.0 [facility] Comment on above: Order Comment: Speci men Type: BLOOD SPECIMENOrdering Facility: [facility] Address: [address] [place] [address] Performed By: #### 2 433-, 2132-03, ####[facility] LABIA [id number] [address] [address] [place] Sodium [Moles/Vol] 142 mmol/L Normal 136-144 [facility] Comment on above: Order Comment: Speci men Type: BLOOD SPECIMENOrdering Facility: [facility] Address: [address] [place] [address] Performed By: #### 2 4331-1, 2132-03, ####[facility] LABIA [id number] [address] [address] [place] Urea nitrogen [Mass/Vol] 7 mg/dL Normal 7-21 [facility] Comment on above: Order Comment: Speci men Type: BLOOD SPECIMENOrdering Facility: [facility] Address: [address] [place] [address] Performed By: #### 2 4331-1, 2132-03, ####[facility] LABCLIA [id number] [address] [place] HbA1c (Bld)on 03-19-2024 Average glucose Estimated from glycated hemoglobin (Bld) [Mass/Vol] 214 mg/dL Normal [facility] Comment on above: Order Comment: Yuliet angulo Type: BLOOD SPECIMENOrdering Facility: [facility] Address: [address] [place] [address] Result Comment: eAG: (Estimated average glucose) is a calculated value from HgbA1c and is customer assistance representative of the average blood glucose level in the last 2-3 month period. Performed By: #### 5 5454-3 ####[facility] LABIA [id number] [address] STATES [facility] HbA1c (Bld) [Mass fraction] 9.1 % High 4.3-5.6 [facility] Comment on above: Order Comment: Yuliet angulo Type: BLOOD SPECIMENOrdering Facility: [facility] Address: [address] [place] [address] Result Comment: Amer [place] Diabetes Association guidelines indicate that patients with HgbA1c in the range 5.7-6.4% are at increased risk for development of diabetes, and intervention by lifestyle modification may be beneficial. HgbA1c greater or equal to 6.5% is considered diagnostic of diabetes. Performed By: #### 5 5454-3 ####[facility] LABIA [id number] [address] [place] Lipid 1996 panelon 4 Cholesterol [Mass/Vol] 172 mg/dL Normal <200 [facility] Comment on above: Order Comment: Yuliet angulo Type: BLOOD SPECIMENOrdering Facility: [facility] Address: [address] [place] [address] Result Comment: <200 mg/dL, Desirable 200-239 mg/dL, Borderline high >239 mg/dL, High Performed By: #### 2 4331-1, 2132-03, ####[facility] LABCLIA [id number] [address] [place] Cholesterol in HDL [Mass/Vol] 40 mg/dL Normal >39 [facility] Comment on above: Order Comment: Yuliet kev Type: BLOOD SPECIMENOrdering Facility: [facility] Address: [address] [place] [address] Result Comment: 40-5 9 mg/dL, Acceptable >59 mg/dL, High: Negative risk factor for coronary heart disease <40 mg/dL, Low: Positive risk factor for coronary heart disease Performed By: #### 2 4331-1, 2132-03, ####[facility] LABCLIA [id number] [address] Cholesterol in LDL [Mass/Vol] 102 mg/dL High <100 [facility] Comment on above: Order Comment: Yuliet angulo Type: BLOOD SPECIMENOrdering Facility: [facility] Address: [address] [place] [address] Result Comment: <100 mg/dL, Optimal 100-129 mg/dL, Near optimal/above optimal 130-159 mg/dL, Borderline high 160-189 mg/dL, High >189 mg/dL, Very high Secondary prevention optimal LDL Cholesterol levels are recommended to be < 70 mg/dL Performed By: #### 2 4331-1, 2132-03, ####[facility] LABIA [id number] [address] [place] Cholesterol in LDL/Cholesterol in HDL [Mass ratio] 2.55 {ratio} High <2.54 [facility] Comment on above: Order Comment: Yazmini kev Type: BLOOD SPECIMENOrdering Facility: [facility] Address: [address] [place] [address] Result Comment: Kayla ortiz: 1. National Cholesterol Education Program ATP III Guideline At-A-Glance Quick Desk Reference: National Heart, Lung, and Blood [place]. National Institutes of Health. 2001: NIH Publication No. 01-3305. 2. An International Atherosclerosis Society position paper: global recommendations for the management of dyslipidemia: executive summary, Atherosclerosis. 2014: 232(2):410-413. Performed By: #### 2 4331-1, 2132-03, ####[facility] LABCLIA [id number] [place] [address] [place] Cholesterol in VLDL [Mass/Vol] 30 mg/dL High <30 [facility] Comment on above: Order Comment: Yazmini men Type: BLOOD SPECIMENOrdering Facility: [facility] Address: [address] [place] [address] Performed By: #### 2 4331-1, 2132-03, ####[facility] LABCLIA [id number] [place] [address] [place] Cholesterol non HDL [Mass/Vol] 132 mg/dL High <130 [facility] Comment on above: Order Comment: Yuliet angulo Type: BLOOD SPECIMENOrdering Facility: [facility] Address: [address] [place] [address] Result Comment: <130 mg/dL, Optimal 130-159 mg/dL, Near optimal/above optimal 160-189 mg/dL, Borderline high 190-219 mg/dL, High >219 mg/dL, Very high Secondary prevention optimal non HDL Cholesterol levels are recommended to be <100 mg/dL Performed By: #### 2 433-1, 2132-03, ####[facility] LABCLIA [id number] [place] [address] [place] Cholesterol.total/Choles terol in HDL [Mass ratio] 4.30 {ratio} Normal <5.10 [facility] Comment on above: Order Comment: Yuliet angulo Type: BLOOD SPECIMENOrdering Facility: [facility] Address: [address] [place] [address] Performed By: #### 2 4331-1, 2132-03, ####[facility] LABCLIA [id number] [place] [address] [place] FASTING TIME 12 hrs Normal [facility] Comment on above: Order Comment: Speci men Type: BLOOD SPECIMENOrdering Facility: [facility] Address: [address] [place] [address] Performed By: #### 2 4331-1, 2132-03, ####[facility] LABCLIA [id number] [address] [place] Triglyceride [Mass/Vol] 150 mg/dL High <150 [facility] Comment on above: Order Comment: Speci men Type: BLOOD SPECIMENOrdering Facility: [facility] Address: [address] [place] [address] Result Comment: <150 mg/dL, Normal 150-199 mg/dL, Borderline high 200-499 mg/dL, High >499 mg/dL, Very high Performed By: #### 2 4331-1, 2132-03, ####[facility] LABCLIA [id number] [address] OF [facility] Vit B12 [facility] Cobalamin (Vitamin B12) [Mass/Vol] 344 pg/mL Normal 232-1245 [facility] Comment on above: Order Comment: Speci men Type: BLOOD SPECIMENOrdering Facility: [facility] Address: [address] [place] [address] Performed By: #### 2 4331-1, 2132-03, ####[facility] LABCLIA [id number] [address] [place] CNOVon 03-17-2024 CNOV Office Visit (FAMPWS) LINA ISAAC ([id number]) 1965 F Date Time Provider Department 03/17/24 [...] INCARCERATED C (more content not included)... Normal [facility] CNOVon 03-05-2024 CNOV Office Visit (PHMEWO) LINA ISAAC ([id number]) 1965 F Date Time Provider Department 03/05/24 [...] capsule 3 Oral Medication Containers (SHARPS CONTAINER) [facility] Use to collect sharps as directed. 1 [...] directed plus sliding scale with meals. Insulin Poteet, Disposable, (UNIFINE PENTIPS) 31 gauge x 3/16 [...] (BAQSIMI) 3 mg/actuation nasal spray Use 1 [place] in the nose as needed for low [...] wheezing/shortness of (more content not included)... Normal [facility] HEMOGLOBIN A1C (POC)on 11-26 HbA1c (Bld) [Mass fraction] 9.3 % Abnormal 4.3 - 5.6 % [facility] Comment on above: Location:[facility], [address] [place] [address], [place], [address] Point of care (POC) Hemoglobin A1c (HGBA1C) [...] specific diabetes management situations: The POC device alarm operator provides a normal range of 4.2% to 6.5% for the HGBA1C POC test. However, the [employer] guidelines indicate that patients with [...] Interpretation and review of laboratory results Abnormal [facility] COVID & INFLUENZA A/B & RSV NAAT, ROUTINEon 09-20-2023 FLUAV RNA JHONY+probe Ql (Unsp spec) Not detected Not Detected [facility] FLUBV RNA JHONY+probe Ql (Unsp spec) Not detected Not Detected [facility] RSV A RNA JHONY+probe Ql (Unsp spec) Not detected Not Detected [facility] SARS-CoV-2 (COVID-19) RNA JHONY+probe Ql (Resp) Not detected See comment Demetrius del angel [facility] CBC W Auto Differential pane l (Bld)on 08-27-2023 Basophils (Bld) [#/Vol] 0.05 10*3/uL <0.11 k/uL [facility] Basophils/100 WBC (Bld) 0.8 % [facility] Differential cell count method Nom (Bld) Auto [facility] Eosinophils (Bld) [#/Vol] 0.14 10*3/uL <0.46 k/uL [facility] Eosinophils/100 WBC (Bld) 2.3 % [facility] Erythrocyte distribution width (RBC) [Ratio] 11.7 % 11.5 - 15.0 % [facility] Hematocrit (Bld) [Volume fraction] 39.1 % 36.0 - 46.0 % [facility] Hemoglobin (Bld) [Mass/Vol] 13.1 g/dL 11.5 - 15.5 g/dL [facility] Immature granulocytes (Bld) [#/Vol] <0.10 k/uL [facility] Immature granulocytes/100 WBC (Bld) 0.3 % [facility] Lymphocytes (Bld) [#/Vol] 2.38 10*3/uL 1.00 - 4.00 k/uL [facility] Lymphocytes/100 WBC (Bld) 38.6 % [facility] MCH (RBC) [Entitic mass] 30.4 pg 26. 0 - 34.0 pg [facility] MCHC (RBC) [Mass/Vol] 33.5 g/dL 30.5 - 36.0 g/dL [facility] MCV (RBC) [Entitic vol] 90.7 fL 80.0 - 100.0 fL [facility] Monocytes (Bld) [#/Vol] 0.48 10*3/uL <0.87 k/uL [facility] Monocytes/100 WBC (Bld) 7.8 % C [facility] Neutrophils (Bld) [#/Vol] 3.10 10*3/uL 1.45 - 7.50 k/uL [facility] Neutrophils/100 WBC (Bld) 50.2 % [facility] Nucleated RBC (Bld) [#/Vol] <0.01 k/uL [facility] Nucleated RBC/100 WBC (Bld) [Ratio] 0.0 /100 WBC [facility] Platelet mean volume (Bld) [Entitic vol] 10.1 fL 9.0 - 12.7 fL [facility] Platelets (Bld) [#/Vol] 270 10*3/uL 150 - 400 k/uL [facility] RBC (Bld) [#/Vol] 4.31 10*6/uL 3.90 - 5.2 0 m/uL [facility] WBC (Bld) [#/Vol] 6.17 10*3/uL 3.70 - 11. 00 k/uL [facility] VITAMIN B12 BLOODon 08-27-19 24 Cobalamin (Vitamin B12) [Mass/Vol] 413 pg/mL 232 - 1,245 pg/mL [facility] No Panel Informationon 05-28 [facility] US LEG VEIN DVT UNL VAS LABo n 05-28-2023 US LEG VEIN DVT UNL VAS LAB Non-Invasive Vascular Laboratory [facility] Lower Extremity Venous Duplex Unilateral - Right [...] Interpreting physician: Kishore San MD Final CC [facility] Image : [id number] See Link below for Image Normal [facility] HEMOGLOBIN A1C (POC)on 05-27 HbA1c (Bld) [Mass fraction] 11.4 % Abnormal 4.2 - 5.6 % [facility] CT CHEST WO IVCONon 02-27-20 [facility] Comprehensive metabolic 2000 panelon 02-20-2023 Albumin [Mass/Vol] 4.4 g/dL 3.9 - 4.9 g/dL [facility] ALP [Catalytic activity/Vol] 93 U/L 34 - 123 U/L [facility] ALT [Catalytic activity/Vol] 16 U/L 7 - 38 U/L [facility] Anion gap [Moles/Vol] 11 mmol/L 9 - 18 mmol/L [facility] AST [Catalytic activity/Vol] 15 U/L 13 - 35 U/L [facility] Bilirubin [Mass/Vol] 0.8 mg/dL 0.2 - 1 .3 mg/dL [facility] Calcium [Mass/Vol] 10.1 mg/dL 8.5 - 10. 2 mg/dL [facility] Chloride [Moles/Vol] 103 mmol/L 97 - 10 5 mmol/L [facility] CO2 [Moles/Vol] 25 mmol/L 22 - 30 mmol/L [facility] Creatinine [Mass/Vol] 0.48 mg/dL Low 0.58 - 0.96 mg/dL [facility] Estimated Glomerular Filtration Rate 110 mL/min/1.73m >=60 mL/min/1.73m [facility] Glucose [Mass/Vol] 225 mg/dL High 74 - 99 mg/dL [facility] Potassium [Moles/Vol] 3.9 mmol/L 3.7 - 5.1 mmol/L [facility] Protein [Mass/Vol] 8.0 g/dL 6.3 - 8.0 g/dL [facility] Sodium [Moles/Vol] 139 mmol/L 136 - 144 mmol/L [facility] Urea nitrogen [Mass/Vol] 11 mg/dL 7 - 21 mg/d L [facility] LIPID PANEL, NONFASTINGon Cholesterol [Mass/Vol] 226 mg/dL High <200 mg/dL Cl [facility] HDL Cholesterol, Nonfasting 48 mg/dL >39 mg/dL [facility] LDL Cholesterol, Nonfasting 152 mg/dL High <100 mg/dL [facility] LDL/HDL Ratio, Nonfasting 3.17 mg/dL High <2.54 mg/dL [facility] Non HDL Cholesterol, Nonfasting 178 mg/dL High <130 mg/dL [facility] Total Chol/HDL Ratio, Nonfasting 4.71 mg/dL <5.10 mg/dL [facility] Triglycerides, Nonfasting 132 mg/dL <150 mg/dL [facility] VLDL Cholesterol, Nonfasting 26 mg/dL <30 mg/dL [facility] T4 FREE/FREE THYROXon 2022 Free T4 [Mass/Vol] 1.5 ng/dL 0.9 - 1.7 ng/dL [facility] TSH BLDon 02-20-2023 TSH Qn 1.120 m[IU]/L 0.270 - 4.200 mIU/L [facility] VITAMIN B12 BLOODon 02-21-20 Cobalamin (Vitamin B12) [Mass/Vol] 416 pg/mL 232 - 1,245 pg/mL [facility] VITAMIN D 25 HYDROXYon 02-20 25-hydroxyvitamin D3 [Mass/Vol] 14.9 ng/mL Low 31.0 - 80.0 ng/mL [facility] CBC W Auto Differential pane l (Bld)on 02-19-2023 Basophils (Bld) [#/Vol] 0.07 10*3/uL <0.11 k/uL [facility] Basophils/100 WBC (Bld) 1.0 % [facility] Differential cell count method Nom (Bld) Auto [facility] Eosinophils (Bld) [#/Vol] 0.12 10*3/uL <0.46 k/uL [facility] Eosinophils/100 WBC (Bld) 1.8 % [facility] Erythrocyte distribution width (RBC) [Ratio] 11.9 % 11.5 - 15.0 % [facility] Hematocrit (Bld) [Volume fraction] 43.1 % 36.0 - 46.0 % [facility] Hemoglobin (Bld) [Mass/Vol] 14.4 g/dL 11.5 - 15.5 g/dL [facility] Immature granulocytes (Bld) [#/Vol] <0.10 k/uL [facility] Immature granulocytes/100 WBC (Bld) 0.3 % [facility] Lymphocytes (Bld) [#/Vol] 3.31 10*3/uL 1.00 - 4.00 k/uL [facility] Lymphocytes/100 WBC (Bld) 49.3 % [facility] MCH (RBC) [Entitic mass] 30.0 pg 26. 0 - 34.0 pg [facility] MCHC (RBC) [Mass/Vol] 33.4 g/dL 30.5 - 36.0 g/dL [facility] MCV (RBC) [Entitic vol] 89.8 fL 80.0 - 100.0 fL [facility] Monocytes (Bld) [#/Vol] 0.54 10*3/uL <0.87 k/uL [facility] Monocytes/100 WBC (Bld) 8.0 % [facility] Neutrophils (Bld) [#/Vol] 2.66 10*3/uL 1.45 - 7.50 k/uL [facility] Neutrophils/100 WBC (Bld) 39.6 % [facility] Nucleated RBC (Bld) [#/Vol] <0.01 k/uL [facility] Nucleated RBC/100 WBC (Bld) [Ratio] 0.0 /100 WBC [facility] Platelet mean volume (Bld) [Entitic vol] 10.1 fL 9.0 - 12.7 fL [facility] Platelets (Bld) [#/Vol] 268 10*3/uL 150 - 400 k/uL [facility] RBC (Bld) [#/Vol] 4.80 10*6/uL 3.90 - 5.2 0 m/uL [facility] WBC (Bld) [#/Vol] 6.72 10*3/uL 3.70 - 11. 00 k/uL [facility] HbA1c (Bld)on 02-19-2023 Average glucose Estimated from glycated hemoglobin (Bld) [Mass/Vol] 280 mg/dL [facility] HbA1c (Bld) [Mass fraction] 11.4 % High 4.3 - 5.6 % [facility] XR CHEST 2V FRONTAL/LATon [facility] XR Chest PA and Lateralon IMPRESSION: Slight prominence of the pulmonary markings in the bilateral lungs. Printing Specialist: SANTOSH Transcribe Date/Time: Feb 19 2023 3:30P Dictated by : BENNY PANDA MD This examination was interpreted and the report reviewed and electronically signed by: BENNY PANDA MD on Feb 19 2023 3:31PM [facility] DIVISION OF RADIOLOGY * * [...] in the spine. DIVISION OF RADIOLOGY Provider, [facility] - 02/19/2023 * * *Final Report* * [...] the pulmonary markings in the bilateral lungs. Printing Specialist: SANTOSH Transcribe Date/Time: Feb 19 2023 3:30P Dictated by : BENNY PANDA MD This examination was interpreted and the report reviewed and electronically signed by: BENNY PANDA MD on Feb 19 2023 3:31PM EST [facility] Radiology Study observation (narrative) Demetrius del angel [facility] XR Chest PA and LateralOrder ed By: Ccf Provider on 02-19-2023 [facility] NM HEPATOBILIARY W EF AND/OR RXon 11-29-2022 [facility] URINE CULTUREon 11-10-2022 Bacteria identified Cx Nom (U) 10,000 -<50,000 CFU/ml Normal urogenital mary ann [facility] AMYLASE BLDon 11-09-2022 Amylase [Catalytic activity/Vol] 46 U/L 30 - 104 U/L [facility] C-REACTIVE PROTEIN (CRP)on 0 11-09-2022 CRP [Mass/Vol] <0.9 mg/dL [facility] Comprehensive metabolic 2000 panelon 11-09-2022 Albumin [Mass/Vol] 4.3 g/dL 3.9 - 4.9 g/dL [facility] ALP [Catalytic activity/Vol] 88 U/L 34 - 123 U/L [facility] ALT [Catalytic activity/Vol] 12 U/L 7 - 38 U/L [facility] Anion gap [Moles/Vol] 10 mmol/L 9 - 18 mmol/L [facility] AST [Catalytic activity/Vol] 14 U/L 13 - 35 U/L [facility] Bilirubin [Mass/Vol] 0.9 mg/dL 0.2 - 1 .3 mg/dL [facility] Calcium [Mass/Vol] 9.8 mg/dL 8.5 - 10. 2 mg/dL [facility] Chloride [Moles/Vol] 103 mmol/L 97 - 10 5 mmol/L [facility] CO2 [Moles/Vol] 27 mmol/L 22 - 30 mmol/L [facility] Creatinine [Mass/Vol] 0.55 mg/dL Low 0.58 - 0.96 mg/dL [facility] Estimated Glomerular Filtration Rate 106 mL/min/1.73m >=60 mL/min/1.73m [facility] Glucose [Mass/Vol] 131 mg/dL High 74 - 99 mg/dL [facility] Potassium [Moles/Vol] 4.2 mmol/L 3.7 - 5.1 mmol/L [facility] Protein [Mass/Vol] 7.5 g/dL 6.3 - 8.0 g/dL [facility] Sodium [Moles/Vol] 140 mmol/L 136 - 144 mmol/L [facility] Urea nitrogen [Mass/Vol] 12 mg/dL 7 - 21 mg/d L [facility] ESR Westergren method (Bld) [Velocity]on 11-09-2022 ESR (Bld) [Velocity] 15 mm/h 0 - 20 mm/hr Cl [facility] LIPASE BLDon 11-09-2022 Lipase [Catalytic activity/Vol] 14 U/L Low 16 - 61 U/L [facility] CBC panel Auto (Bld)on 11-08 Erythrocyte distribution width (RBC) [Ratio] 12.3 % 11.5 - 15.0 % [facility] Hematocrit (Bld) [Volume fraction] 42.5 % 36.0 - 46.0 % [facility] Hemoglobin (Bld) [Mass/Vol] 14.3 g/dL 11.5 - 15.5 g/dL [facility] MCH (RBC) [Entitic mass] 30.2 pg 26. 0 - 34.0 pg [facility] MCHC (RBC) [Mass/Vol] 33.6 g/dL 30.5 - 36.0 g/dL [facility] MCV (RBC) [Entitic vol] 89.9 fL 80.0 - 100.0 fL [facility] Nucleated RBC (Bld) [#/Vol] <0.01 k/uL [facility] Platelet mean volume (Bld) [Entitic vol] 9.7 fL 9.0 - 12.7 fL [facility] Platelets (Bld) [#/Vol] 293 10*3/uL 150 - 400 k/uL [facility] RBC (Bld) [#/Vol] 4.73 10*6/uL 3.90 - 5.2 0 m/uL [facility] WBC (Bld) [#/Vol] 6.61 10*3/uL 3.70 - 11. 00 k/uL [facility] D-DIMERon 11-08-2022 Fibrin D-dimer FEU (PPP) [Mass/Vol] 370 ng/mL FEU <500 ng/mL FEU [facility] Fibrin D-dimer FEU (PPP) [Ma ss/Vol]on 11-08-2022 D Dimer Age-related Cutoff 580 ng/mL FEU [facility] HEMOGLOBIN A1C (POC)on 11-08 HbA1c (Bld) [Mass fraction] 10.7 % Abnormal 4.2 - 5.6 % [facility] No Panel Informationon 11-08 [facility] UA DIP, URINE (POC)on 2022 BILIRUBIN UA (POCT) Negative Negative [facility] CLARITY UA (POCT) Clear [facility] COLOR UA (POCT) Yellow [facility] GLUCOSE UA (POCT) Negative Negative mg/dL [facility] HEMOGLOBIN/BLOOD UA (POCT) Negative Negative [facility] KETONE UA (POCT) Negative Negative mg/dL [facility] LEUKOCYTES UA (POCT) Trace Abnormal Negative [facility] NITRITE UA (POCT) Negative Negative [facility] PH UA (POCT) 5.5 4.5 - 8.0 [facility] Protein Ql (U) Trace Abnormal Negative mg/dL [facility] SPECIFIC GRAVITY UA (POCT) >=1.030 1.005 - 1.030 [facility] UROBILINOGEN UA (POCT) 0.2 E.U./dL Jennifer l E.U./dL [facility] UA DIP, URINE (POC)on 2022 BILIRUBIN UA (POCT) Negative Negative [facility] CLARITY UA (POCT) Clear [facility] COLOR UA (POCT) Yellow [facility] GLUCOSE UA (POCT) 250 mg/dL Abnormal Negative mg/dL [facility] HEMOGLOBIN/BLOOD UA (POCT) Trace-lysed Abnormal Negative [facility] KETONE UA (POCT) Negative Negative mg/dL [facility] LEUKOCYTES UA (POCT) Negative Negative [facility] NITRITE UA (POCT) Negative Negative [facility] PH UA (POCT) 6.0 4.5 - 8.0 [facility] Protein Ql (U) 30 mg/dL Abnormal Negative mg/dL [facility] SPECIFIC GRAVITY UA (POCT) >=1.030 1.005 - 1.030 [facility] UROBILINOGEN UA (POCT) 0.2 E.U./dL Jennifer l E.U./dL [facility] ANES POSTPROC EVALon 023 ANES POSTPROC EVAL HNO ID: [id number] Author: Elena Salmon MD Service: Anesthesiology Author Type: Anesthesiologist Type: Anesthesia Postprocedure Evaluation Filed: 09/17/2022 9:46 AM Note Text: POST ANESTHESIA EVALUATION NOTE : 1965 Procedure Summary Date: 09/17/22 Room / Location: [facility] Endoscopy Anesthesia Start: 837 Anesthesia Stop: 921 Procedures: EGD DIAGNOSTIC COLONOSCOPY DIAGNOSTIC Diagnosis: Abdominal pain, unspecified abdominal location Change in bowel habits (Generalized abdominal pain) (Generalized abdominal pain) Scheduled Providers: Brandy Ramirez MD; Mauricio Marie APRN.DOOR ATTENDANT; Elena Salmon MD Responsible Provider: Elena Salmon [...] September 17, 2022 TIME: 9:46 AM CSN: [id number] Normal [facility] ANES PRE-OPon 09-17-2022 ANES PRE-OP HNO ID: [id number] Author: Elena Salmon MD Service: Anesthesiology Author Type: Anesthesiologist Type: Anesthesia Preprocedure Evaluation Filed: 09/17/2022 7:30 AM Note Text: ANESTHESIOLOGY DAY OF SURGERY NOTE : 1965 Procedure Information Date/Time: 09/17/2230 Scheduled providers: Brandy Ramirez MD; Mauricio Marie APRN.DOOR ATTENDANT; Elena Salmon MD Procedures: EGD DIAGNOSTIC COLONOSCOPY DIAGNOSTIC Location: [facility] Endoscopy Estimated body mass index is 30.41 [...] and consent discussed: yes. Patient / Responsible Libertarian agrees to proceed: yes Patient / Surrogate [...] (BAQSIMI) 3 mg/actuation nasal spray Use 1 [place] in the nose as needed for low [...] (VENTOLIN HFA (more content not included)... Normal [facility] Colonoscopyon 09-17-2022 Colonoscopy [facility] Gastrointestinal Endoscopy Patient Name: Lina Isaac Procedure Date: 09/17/2022 8:52 AM Date of : 1965 Admit Type: Outpatient Age: 56 Room: [facility] Gender: Female Note Status: Finalized Attending [...] by the physician, the nurse and the transfer and line up worker in the procedure room. Mental Status Examination: [...] the patient. Procedure Code(s): --- Professional --- 00052, Colonoscopy, flexible; diagnostic, including collection of specimen(s) by brushing or washing, when performed (separate procedure) CPT copyright 2020 [employer]. All rights reserved. The codes documented in this report are preliminary and upon certified medical coder review may be revised to meet current compliance requirements. Attending Participation: I personally performed the entire procedure. Scope In: 8:54:19 AM Scope Out: 9:15:21 AM MD Brandy Gutiérrez MD 09/17/2022 9:27:16 AM This report has been signed electronically by Brandy Ramirez MD Number of Addenda: 0 Note Initiated On: 09/17/2022 8:52 AM Estimated Blood Loss: Estimated blood loss: none. Normal [facility] HISTORY PHYSICALon HISTORY PHYSICAL HNO ID: [id number] Author: Brandy Ramirez MD Service: General Surgery [...] (BAQSIMI) 3 mg/actuation nasal spray Use 1 [place] in the nose as needed for low [...] calcium citrate-vitamin (more content not included)... Normal [facility] SURGICAL PATHOLOGYon 023 CASE REPORT [facility] Comment on above: Order Comment: Yuliet angulo Type: TISSUE SPECIMEN Ordering Facility: [facility] Address: [address] [place] [address] Result Comment: Surg ical Pathology Report Case: [id number] Authorizing Provider: Brandy Ramirez MD Collected: 09/17/2022 08:49 AM Ordering Location: [facility] Endoscopy Received: 09/17/2022 10:11 AM Pathologist: Di Morelos MD Specimen: ANTRUM (STOMACH) BIOPSY Performed By: #### S #### [facility] CLIA [id number] [address] [place] [address] FINAL DIAGNOSIS [facility] Comment on above: Order Comment: Yuliet angulo Type: TISSUE SPECIMEN Ordering Facility: [facility] Address: [address] [place] [address] Result Comment: Marquita omer antrum, biopsy: - Antral mucosa with no significant diagnostic alteration. - No morphologic evidence of Helicobacter pylori organisms. Performed By: #### S #### [facility] CLIA [id number] [address] [place] [address] FINAL PERFORMING LAB Normal [facility] Comment on above: Order Comment: Yuliet angulo Type: TISSUE SPECIMEN Ordering Facility: [facility] Address: [address] [address] Result Comment: Diag nostic interpretation performed at [facility], [address] [place] [address] CLIA# [id number] Attorney Lawyer: Davian Connolly M.D. Performed By: #### S #### [facility] CLIA [id number] [address] [place] [address] FERNANDA GROSS DESCRIPTION Normal [facility] Comment on above: Order Comment: Speci men Type: TISSUE SPECIMEN Ordering Facility: [facility] Address: [address] [place], [place] [address]DULCE [place] [address] Result Comment: Bren Castro NTRUM (STOMACH) BIOPSY Received in formalin is one piece of nathan, soft tissue measuring 0.2 x 0.2 x 0.2 cm. Totally submitted in one cassette. Gross examination performed at [address] 09/17/2022 3:47 PM Performed By: #### S #### [facility] CLIA [id number] [address] [place] [address] Upper GI endoscopyon 023 Upper GI endoscopy [facility] Gastrointestinal Endoscopy Patient Name: Lina Isaac Procedure Date: 09/17/2022 8:35 AM Date of : 1965 Admit Type: Outpatient Age: 56 Room: [facility] Gender: Female Note Status: Finalized Attending [...] by the physician, the nurse and the transfer and line up worker in the procedure room. Mental Status Examination: [...] 2 weeks. Procedure Code(s): --- Professional --- 88713, Esophagogastroduoden oscopy, flexible, transoral; with biopsy, single or multiple CPT copyright 2020 [employer]. All rights reserved. The codes documented in this report are preliminary and upon certified medical coder review may be revised to meet current compliance requirements. Attending Participation: I personally performed the entire procedure. Scope In: 8:46:30 AM Scope Out: 8:50:24 AM MD Brandy Gutiérrez MD 09/17/2022 9:22:36 AM This report has been signed electronically by Brandy Ramirez MD Number of Addenda: 0 Note Initiated On: 09/17/2022 8:35 AM Estimated Blood Loss: Estimated blood loss: none. Normal [facility] CHANTELL SCREENING W TOMOon 09-06 [facility] CT ABD/PEL WO IVCONon 2021 [facility] UA DIP, URINE (POC)on 2021 BILIRUBIN UA (POCT) Negative Negative [facility] CLARITY UA (POCT) Clear [facility] COLOR UA (POCT) Yellow [facility] GLUCOSE UA (POCT) >=1000 Abnormal Negative mg/dL [facility] HEMOGLOBIN/BLOOD UA (POCT) Trace-intact Abnormal Negative [facility] KETONE UA (POCT) Trace Negative mg/dL [facility] LEUKOCYTES UA (POCT) Negative Negative [facility] NITRITE UA (POCT) Negative Negative [facility] PH UA (POCT) 5.5 4.5 - 8.0 [facility] Protein Ql (U) Negative Negative mg/dL [facility] SPECIFIC GRAVITY UA (POCT) 1.020 1.005 - 1.030 [facility] UROBILINOGEN UA (POCT) 0.2 E.U./dL Jennifer l E.U./dL [facility] DXA-AXIAL SKELETONon 022 [facility] XR Foot - left AP and Latera l and obliqueon 12-31-2021 IMPRESSION: No acute abnormality. Printing Specialist: SANTOSH Transcribe Date/Time: Dec 31 2021 4:08P [...] foreign body. ZZZ_DO_NOT_U SE_DIVISION OF RADIOLOGY Provider, [facility] [place] - 12/31/2021 * * *Final Report* * [...] foreign body. IMPRESSION IMPRESSION: No acute abnormality. Printing Specialist: SANTOSH Transcribe Date/Time: Dec 31 2021 4:08P Dictated by : OMID HOLLOWAY MD This examination was interpreted and the report reviewed and electronically signed by: OMID HOLLOWAY MD on Dec 31 2021 4:11PM EST [facility] XR Foot - left AP and Latera l and obliqueOrdered By: Ccf Provider on 12-31-2021 [facility] XR Foot - left AP and Latera l and obliqueon 12-30-2021 Radiology Study observation (narrative) [facility] No Panel Informationon 11-14 IMPRESSION: No acute osseous injury identified. Printing Specialist: SANTOSH Transcribe Date/Time: Nov 14 2021 11:33A Dictated by : TYRESE ESPINOZA MD This examination was interpreted and the report reviewed and electronically signed by: TYRESE ESPINOZA MD on Nov 14 2021 11:34AM EST ZZZ_DO_NOT_U SE_DIVISION OF RADIOLOGY Radiology Study observation (narrative) [facility] No Panel InformationOrdered By: Ccf Provider on 11-14-2021 [facility] XR Hand - left PA and Latera [...] space narrowing. ZZZ_DO_NOT_U SE_DIVISION OF RADIOLOGY Provider, [facility] - 11/14/2021 * * *Final Report* * [...] IMPRESSION IMPRESSION: No acute osseous injury identified. Printing Specialist[facility] Transcribe Date/Time: Nov 14 2021 11:33A Dictated by : TYRESE ESPINOZA MD This examination was interpreted and the report reviewed and electronically signed by: TYRESE ESPINOZA MD on Nov 14 2021 11:34AM EST [facility] XR Wrist - left PA and Later [...] space narrowing. ZZZ_DO_NOT_U SE_DIVISION OF RADIOLOGY Provider, [facility] - 11/14/2021 * * *Final Report* * [...] IMPRESSION IMPRESSION: No acute osseous injury identified. Printing Specialist: [facility] Transcribe Date/Time: Nov 14 2021 11:33A Dictated by : TYRESE ESPINOZA MD This examination was interpreted and the report reviewed and electronically signed by: TYRESE ESPINOZA MD on Nov 14 2021 11:34AM EST [facility] CT ABD/PEL WO IVCONon 2021 [facility] XR Abdomen Supine and Uprigh ton 04-10-2021 IMPRESSION: 1. Nonobstructive bowel gas pattern. 2. Patchy opacities in the periphery of the visualized lower lung zones. Clinical correlation for possible viral pneumonia is advised.. Printing Specialist: [facility] Transcribe Date/Time: Apr 10 2021 4:34P Dictated by : TYRESE ESPINOZA MD This examination was interpreted and the report reviewed and electronically signed by: TYERSE ESPINOZA MD on Apr 10 2021 4:36PM [...] of the vasculature. DIVISION OF RADIOLOGY Provider, [facility] [place] - 04/10/2021 * * *Final Report* * [...] correlation for possible viral pneumonia is advised.. Printing Specialist: [facility] Transcribe Date/Time: Apr 10 2021 4:34P Dictated by : TYRESE ESPINOZA MD This examination was interpreted and the report reviewed and electronically signed by: TYRESE ESPINOZA MD on Apr 10 2021 4:36PM EST [facility] Radiology Study observation (narrative) [facility] XR Abdomen Supine and Uprigh tOrdered By: Ccf Provider on 04-10-2021 [facility] No Panel Informationon 12-01 IMPRESSION: NO ACUTE OSSEOUS ABNORMALITY DEGENERATIVE CHANGES DESCRIBED Printing Specialist: SANTOSH Transcribe Date/Time: Dec 01 2020 1:13P Dictated by : JAME CANALES MD This examination was interpreted and the report reviewed and electronically signed by: JAME CANALES MD on Dec 01 2020 1:15PM [facility] DIVISION OF RADIOLOGY Radiology Study observation (narrative) [facility] No Panel InformationOrdered By: Ccf Provider on 12-01-2020 [facility] XR Lumbar spine 3 Viewson * * [...] significant abnormality. ----- DIVISION OF RADIOLOGY Provider, [facility] [place] - 12/01/2020 * * *Final Report* * [...] NO ACUTE OSSEOUS ABNORMALITY DEGENERATIVE CHANGES DESCRIBED Printing Specialist: SANTOSH Transcribe Date/Time: Dec 01 2020 1:13P Dictated by : JAME CANALES MD This examination was interpreted and the report reviewed and electronically signed by: JAME CANALES MD on Dec 01 2020 1:15PM [facility] XR Thoracic spine AP and [...] significant abnormality. ----- DIVISION OF RADIOLOGY Provider, [facility] [place] - 12/01/2020 * * *Final Report* * [...] NO ACUTE OSSEOUS ABNORMALITY DEGENERATIVE CHANGES DESCRIBED Printing Specialist: SANTOSH Transcribe Date/Time: Dec 01 2020 1:13P Dictated by : JAME CANALES MD This examination was interpreted and the report reviewed and electronically signed by: JAME CANALES MD on Dec 01 2020 1:15PM [facility] Vital Signs Date Time Vital Sign Value Performing Clinician Facility 02-25-2025 09:10-0400 SaO2% (BldA) [Mass fraction] 94 % Dr. Jese Zheng DO Work Phone: [facility] 02-25-2025 08:20-0400 Body temperature 98.9 [degF] Dr. Jese Zheng DO Work Phone: [facility] 02-25-2025 08:20-0400 Diastolic blood pressure 82 mm[Hg] Dr. Jese Zheng DO Work Phone: 0(131)808-809934 [place] [address] 02-25-2025 08:20-0400 Heart rate 91 /min Dr. Jese Zheng DO Work Phone: 0(569)145-400357 [place] [address] 02-25-2025 08:20-0400 Respiratory rate 18 /min Dr. Jese Zheng DO Work Phone: 3(996)906-729357 [place] [address] 02-25-2025 08:20-0400 Systolic blood pressure 117 mm[Hg] Dr. Jese Zheng DO Work Phone: 2(728)748-776357 [place] [address] 02-25-2025 06:00-0400 Body mass index (BMI) [Ratio] 30.2 kg/m2 Dr. Jese Zheng DO Work Phone: 1(468)945-173857 [place] [address] 02-25-2025 06:00-0400 Body weight 90.[address] Jese Zheng DO Work Phone: 3(260)968-559457 [place] [address] 02-24-2025 21:55-0400 Inhaled oxygen flow rate 2 L/min Dr. Jese Zheng DO Work Phone: 6(579)264-591757 [place] [address] 02-24-2025 10:16-0400 Body height 172.[address] Jese Zheng DO Work Phone: 2(685)150-560357 [place] [address] 02-22-2025 20:07-0400 Body temperature 98.1 [degF] Dr. Jese Zheng DO Work Phone: 8(302)673-486557 [place] [address] 02-22-2025 20:07-0400 Diastolic blood pressure 89 mm[Hg] Dr. Jese Zheng DO Work Phone: 5(942)793-621257 [place] [address] 02-22-2025 20:07-0400 Heart rate 124 /min Dr. Jese Zheng DO Work Phone: 0(446)736-128057 [place] [address] 02-22-2025 20:07-0400 Respiratory rate 21 /min Dr. Jese Zheng DO Work Phone: 9(807)188-844757 [place] [address] 02-22-2025 20:07-0400 SaO2% (BldA) [Mass fraction] 94 % Dr. Jese Zheng DO Work Phone: [facility] 02-22-2025 20:07-0400 Systolic blood pressure 141 mm[Hg] Dr. Jese Zheng DO Work Phone: [facility] 02-22-2025 19:56-0400 Inhaled oxygen flow rate 2 L/min Dr. Jese Zheng DO Work Phone: [facility] 02-22-2025 18:07-0400 Body mass index (BMI) [Ratio] 32.4 kg/m2 Dr. Jese Zheng DO Work Phone: 9(269)467-506934 [place] [address] 02-22-2025 18:07-0400 Body weight 97.[address] Jese Zheng DO Work Phone: 7(359)871-469257 [place] [address] 02-22-2025 16:31-0400 Body height 172.[address] Jese Zheng DO Work Phone: [facility] 02-22-2025 15:09-0400 Body temperature 97.7 [degF] Selin Suppan SWEATBAND SEPARATOR.PRESS SET UP Work Phone: [facility] 02-22-2025 15:09-0400 Diastolic blood pressure 74 mm[Hg] Selin Suppan SWEATBAND SEPARATOR.[employer] SET UP Work Phone: [facility] 02-22-2025 15:09-0400 Heart rate 110 /min Selin Suppan SWEATBAND SEPARATOR.[employer] SET UP Work Phone: [facility] 02-22-2025 15:09-0400 SaO2% (BldA) [Mass fraction] 96 % Selin Suppan SWEATBAND SEPARATOR.[employer] SET UP Work Phone: [facility] 02-22-2025 15:09-0400 Systolic blood pressure 122 mm[Hg] Selin Suppan SWEATBAND SEPARATOR.[employer] SET UP Work Phone: [facility] 12-30-2024 14:57-0400 Body mass index (BMI) [Ratio] 31.17 kg/m2 Jese Zheng DO Work Phone: [facility] 12-30-2024 14:57-0400 Body temperature 96.8 [degF] Jese Zheng DO Work Phone: [facility] 12-30-2024 14:57-0400 Body weight 92.99 kg Jese Zheng DO Work Phone: [facility] 12-30-2024 14:57-0400 Diastolic blood pressure 70 mm[Hg] Jese Zheng DO Work Phone: [facility] 12-30-2024 14:57-0400 Heart rate 80 /min Jese Zheng DO Work Phone: [facility] 12-30-2024 14:57-0400 Respiratory rate 16 /min Jese Zheng DO Work Phone: [facility] 12-30-2024 14:57-0400 Systolic blood pressure 120 mm[Hg] Jese Zheng DO Work Phone: [facility] 09-23-2024 15:07-0500 Body mass index (BMI) [Ratio] 31.32 kg/m2 Jese Zheng DO Work Phone: [facility] 09-23-2024 15:07-0500 Body temperature 97 [degF] Jese Zheng DO Work Phone: [facility] 09-23-2024 15:07-0500 Body weight 93.44 kg Jese Zheng DO Work Phone: [facility] 09-23-2024 15:07-0500 Diastolic blood pressure 64 mm[Hg] Jese Zheng DO Work Phone: [facility] 09-23-2024 15:07-0500 Heart rate 88 /min Jese Zheng DO Work Phone: [facility] 09-23-2024 15:07-0500 Respiratory rate 16 /min Jese Zheng DO Work Phone: [facility] 09-23-2024 15:07-0500 Systolic blood pressure 134 mm[Hg] Jese Zheng DO Work Phone: [facility] 03-17-2024 14:58-0400 Body mass index (BMI) [Ratio] 31.47 kg/m2 Jese Zheng DO Work Phone: [facility] 03-17-2024 14:58-0400 Body temperature 97.11 [degF] Jese Zheng DO Work Phone: [facility] 03-17-2024 14:58-0400 Body weight 93.89 kg Jese Zheng DO Work Phone: [facility] 03-17-2024 14:58-0400 Diastolic blood pressure 80 mm[Hg] Jese Zheng DO Work Phone: [facility] 03-17-2024 14:58-0400 Heart rate 80 /min Jese Zheng DO Work Phone: [facility] 03-17-2024 14:58-0400 Respiratory rate 16 /min Jese Zheng DO Work Phone: [facility] 03-17-2024 14:58-0400 Systolic blood pressure 136 mm[Hg] Jese Zheng DO Work Phone: [facility] 11-27-2023 13:56-0400 Body mass index (BMI) [Ratio] 32.23 kg/m2 Jese Zheng DO Work Phone: [facility] 11-27-2023 13:56-0400 Body temperature 97.39 [degF] Jese Zheng DO Work Phone: [facility] 11-27-2023 13:56-0400 Body weight 96.16 kg Jese Zheng DO Work Phone: [facility] 11-27-2023 13:56-0400 Diastolic blood pressure 60 mm[Hg] Jese Zheng DO Work Phone: [facility] 11-27-2023 13:56-0400 Heart rate 80 /min Jese Zheng DO Work Phone: [facility] 11-27-2023 13:56-0400 Respiratory rate 20 /min Jese Zheng DO Work Phone: [facility] 11-27-2023 13:56-0400 Systolic blood pressure 120 mm[Hg] Jese Zheng DO Work Phone: [facility] 09-20-2023 14:53-0500 Diastolic blood pressure 80 mm[Hg] Jese Zheng DO Work Phone: [facility] 09-20-2023 14:53-0500 Heart rate 85 /min Jese Zheng DO Work Phone: [facility] 09-20-2023 14:53-0500 Respiratory rate 16 /min Jese Zheng DO Work Phone: [facility] 09-20-2023 14:53-0500 SaO2% (BldA) [Mass fraction] 97 % Jese Zheng DO Work Phone: [facility] 09-20-2023 14:53-0500 Systolic blood pressure 124 mm[Hg] Jese Zheng DO Work Phone: [facility] 08-27-2023 08:37-0500 Body temperature 97 [degF] Jese Zheng DO Work Phone: [facility] 08-27-2023 08:37-0500 Body weight 89.81 kg Jese Zheng DO Work Phone: [facility] 08-27-2023 08:37-0500 Diastolic blood pressure 82 mm[Hg] Jese Zheng DO Work Phone: [facility] 08-27-2023 08:37-0500 Heart rate 80 /min Jese Zheng DO Work Phone: [facility] 08-27-2023 08:37-0500 Respiratory rate 16 /min Jese Zheng DO Work Phone: [facility] 08-27-2023 08:37-0500 Systolic blood pressure 138 mm[Hg] Jese Zheng DO Work Phone: [facility] 05-27-2023 13:04-0500 Body temperature 96.49 [degF] Jese Zheng DO Work Phone: [facility] 05-27-2023 13:04-0500 Body weight 90.27 kg Jese Zheng DO Work Phone: [facility] 05-27-2023 13:04-0500 Diastolic blood pressure 82 mm[Hg] Jese Zheng DO Work Phone: [facility] 05-27-2023 13:04-0500 Heart rate 64 /min Jese Zheng DO Work Phone: [facility] 05-27-2023 13:04-0500 Respiratory rate 20 /min Jese Zheng DO Work Phone: [facility] 05-27-2023 13:04-0500 Systolic blood pressure 138 mm[Hg] Jese Zheng DO Work Phone: [facility] 04-05-2023 08:14-0400 Body temperature 98.71 [degF] Mitchel Carney MD Work Phone: [facility] 04-05-2023 08:14-0400 Body weight 92.99 kg Mitchel Carney MD Work Phone: [facility] 04-05-2023 08:14-0400 Diastolic blood pressure 92 mm[Hg] Mitchel Carney MD Work Phone: [facility] 04-05-2023 08:14-0400 Heart rate 94 /min Mitchel Carney MD Work Phone: [facility] 04-05-2023 08:14-0400 Respiratory rate 18 /min Mitchel Carney MD Work Phone: [facility] 04-05-2023 08:14-0400 SaO2% (BldA) [Mass fraction] 99 % Mitchel Carney MD Work Phone: [facility] 04-05-2023 08:14-0400 Systolic blood pressure 142 mm[Hg] Mitchel Carney MD Work Phone: [facility] 02-19-2023 12:37-0400 Body temperature 97.39 [degF] Jese Zheng DO Work Phone: [facility] 02-19-2023 12:37-0400 Body weight 89.81 kg Jese Zheng DO Work Phone: [facility] 02-19-2023 12:37-0400 Diastolic blood pressure 80 mm[Hg] Jese Zheng DO Work Phone: [facility] 02-19-2023 12:37-0400 Heart rate 72 /min Jese Zheng DO Work Phone: [facility] 02-19-2023 12:37-0400 Respiratory rate 20 /min Jese Zheng DO Work Phone: [facility] 02-19-2023 12:37-0400 Systolic blood pressure 124 mm[Hg] Jese Zheng DO Work Phone: [facility] 12-27-2022 10:14-0400 Diastolic blood pressure 81 mm[Hg] Shayan La Honda [facility] Work Phone: [facility] 12-27-2022 10:14-0400 Heart rate 94 /min Shayan La Honda [facility] Work Phone: [facility] 12-27-2022 10:14-0400 Systolic blood pressure 138 mm[Hg] Shayan Juan RPh Work Phone: [facility] 11-15-2022 11:51-0400 Diastolic blood pressure 72 mm[Hg] Shayan La Honda [facility] Work Phone: [facility] 11-15-2022 11:51-0400 Heart rate 109 /min Shayan Juan RPh Work Phone: [facility] 11-15-2022 11:51-0400 Systolic blood pressure 121 mm[Hg] Shayan La Honda RP Work Phone: [facility] 11-08-2022 12:40-0400 Body weight 92.17 kg Ankita Green APRNMIGUEL ANGEL Work Phone: [facility] 11-08-2022 12:40-0400 Diastolic blood pressure 82 mm[Hg] Ankita Juliana SWEATBAND SEPARATOR.[employer] SET UP Work Phone: [facility] 11-08-2022 12:40-0400 Heart rate 105 /min Ankita Juliana SWEATBAND SEPARATOR.[employer] SET UP Work Phone: [facility] 11-08-2022 12:40-0400 Respiratory rate 18 /min Ankita Juliana SWEATBAND SEPARATOR.[employer] SET UP Work Phone: [facility] 11-08-2022 12:40-0400 SaO2% (BldA) [Mass fraction] 97 % Ankita Juliana SWEATBAND SEPARATOR.[employer] SET UP Work Phone: [facility] 11-08-2022 12:40-0400 Systolic blood pressure 140 mm[Hg] Ankita Juliana SWEATBAND SEPARATOR.[employer] SET UP Work Phone: [facility] 10-18-2022 09:33-0400 Body temperature 98.2 [degF] Radha Praisler-Wood SWEATBAND SEPARATOR.PRESS SET UP Work Phone: [facility] 10-18-2022 09:33-0400 Body weight 91.63 kg Radha Praisler-Wood SWEATBAND SEPARATOR.PRESS SET UP Work Phone: [facility] 10-18-2022 09:33-0400 Diastolic blood pressure 86 mm[Hg] Radha Praisler-Wood SWEATBAND SEPARATOR.[employer] SET UP Work Phone: [facility] 10-18-2022 09:33-0400 Heart rate 101 /min Radha Praisler-Wood SWEATBAND SEPARATOR.PRESS SET UP Work Phone: [facility] 10-18-2022 09:33-0400 Respiratory rate 18 /min Radha Praisler-Wood SWEATBAND SEPARATOR.PRESS SET UP Work Phone: [facility] 10-18-2022 09:33-0400 SaO2% (BldA) [Mass fraction] 100 % Radha Praisler-Wood SWEATBAND SEPARATOR.PRESS SET UP Work Phone: [facility] 10-18-2022 09:33-0400 Systolic blood pressure 144 mm[Hg] Radha Praisler-Wood SWEATBAND SEPARATOR.PRESS SET UP Work Phone: [facility] 07-24-2022 08:53-0500 Body temperature 97.2 [degF] Jese Zheng DO Work Phone: [facility] 07-24-2022 08:53-0500 Body weight 90.72 kg Jese Zheng DO Work Phone: [facility] 07-24-2022 08:53-0500 Diastolic blood pressure 80 mm[Hg] Jese Zheng DO Work Phone: [facility] 07-24-2022 08:53-0500 Heart rate 88 /min Jese Zheng DO Work Phone: [facility] 07-24-2022 08:53-0500 Respiratory rate 20 /min Jese Zheng DO Work Phone: [facility] 07-24-2022 08:53-0500 Systolic blood pressure 134 mm[Hg] Jese Zheng DO Work Phone: [facility] 06-21-2022 09:17-0500 Diastolic blood pressure 78 mm[Hg] Shayan Villedago [facility] Work Phone: [facility] 06-21-2022 09:17-0500 Heart rate 108 /min Shayan La Honda [facility] Work Phone: [facility] 06-21-2022 09:17-0500 Systolic blood pressure 128 mm[Hg] Shayan La Honda [facility] Work Phone: [facility] 05-29-2022 15:58-0500 Body temperature 97.5 [degF] Brandy Ramirez MD Work Phone: [facility] 05-29-2022 15:58-0500 Body weight 93.89 kg Brandy Ramirez MD Work Phone: [facility] 05-29-2022 15:58-0500 Diastolic blood pressure 78 mm[Hg] Brandy Ramirez MD Work Phone: [facility] 05-29-2022 15:58-0500 Heart rate 107 /min Brandy Ramirez MD Work Phone: [facility] 05-29-2022 15:58-0500 SaO2% (BldA) [Mass fraction] 98 % Brandy Ramirez MD Work Phone: [facility] 05-29-2022 15:58-0500 Systolic blood pressure 134 mm[Hg] Brandy Ramirez MD Work Phone: [facility] 05-21-2022 11:55-0400 Body temperature 97.3 [degF] Ankita Juliana SWEATBAND SEPARATOR.PRESS SET UP Work Phone: [facility] 05-21-2022 11:55-0400 Body weight 92.35 kg Ankita Juliana SWEATBAND SEPARATOR.PRESS SET UP Work Phone: [facility] 05-21-2022 11:55-0400 Diastolic blood pressure 82 mm[Hg] Ankita Juliana SWEATBAND SEPARATOR.PRESS SET UP Work Phone: [facility] 05-21-2022 11:55-0400 Heart rate 113 /min Ankita Juliana SWEATBAND SEPARATOR.[employer] SET UP Work Phone: [facility] 05-21-2022 11:55-0400 Respiratory rate 20 /min Ankita Juliana SWEATBAND SEPARATOR.PRESS SET UP Work Phone: [facility] 05-21-2022 11:55-0400 SaO2% (BldA) [Mass fraction] 99 % Ankita Juliana SWEATBAND SEPARATOR.[employer] SET UP Work Phone: [facility] 05-21-2022 11:55-0400 Systolic blood pressure 130 mm[Hg] Ankita Juliana SWEATBAND SEPARATOR.[employer] SET UP Work Phone: [facility] 05-20-2022 08:31-0400 Body temperature 97 [degF] Kanwal Shannan SWEATBAND SEPARATOR.PRESS SET UP Work Phone: [facility] 05-20-2022 08:31-0400 Body weight 94.35 kg Kanwal Shannan SWEATBAND SEPARATOR.[employer] SET UP Work Phone: [facility] 05-20-2022 08:31-0400 Diastolic blood pressure 84 mm[Hg] Kanwal Shannan SWEATBAND SEPARATOR.PRESS SET UP Work Phone: [facility] 05-20-2022 08:31-0400 Heart rate 78 /min Kanwal Shannan SWEATBAND SEPARATOR.PRESS SET UP Work Phone: [facility] 05-20-2022 08:31-0400 Respiratory rate 16 /min Kanwal Shannan SWEATBAND SEPARATOR.PRESS SET UP Work Phone: [facility] 05-20-2022 08:31-0400 SaO2% (BldA) [Mass fraction] 100 % Kanwal Shannan SWEATBAND SEPARATOR.PRESS SET UP Work Phone: [facility] 05-20-2022 08:31-0400 Systolic blood pressure 144 mm[Hg] Kanwal Shannan SWEATBAND SEPARATOR.PRESS SET UP Work Phone: [facility] 04-27-2022 13:49-0400 Body weight 96.16 kg Jese Zheng DO Work Phone: [facility] 04-27-2022 13:49-0400 Diastolic blood pressure 80 mm[Hg] Jese Zheng DO Work Phone: [facility] 04-27-2022 13:49-0400 Heart rate 78 /min Jese Zheng DO Work Phone: [facility] 04-27-2022 13:49-0400 Respiratory rate 16 /min Jese Zheng DO Work Phone: [facility] 04-27-2022 13:49-0400 Systolic blood pressure 140 mm[Hg] Jese Zheng DO Work Phone: [facility] 12-30-2021 09:37-0400 Body temperature 96.69 [degF] Jese Zheng DO Work Phone: [facility] 12-30-2021 09:37-0400 Body weight 95.71 kg Jese Zheng DO Work Phone: [facility] 12-30-2021 09:37-0400 Diastolic blood pressure 70 mm[Hg] Jese Zheng DO Work Phone: [facility] 12-30-2021 09:37-0400 Heart rate 80 /min Jese Zheng DO Work Phone: [facility] 12-30-2021 09:37-0400 Respiratory rate 20 /min Jese Zheng DO Work Phone: [facility] 12-30-2021 09:37-0400 Systolic blood pressure 120 mm[Hg] Jese Zheng DO Work Phone: [facility] 12-20-2021 09:25-0400 Body weight 96.07 kg Ankita Juliana SWEATBAND SEPARATOR.PRESS SET UP Work Phone: [facility] 12-20-2021 09:25-0400 Diastolic blood pressure 96 mm[Hg] Ankita Juliana SWEATBAND SEPARATOR.PRESS SET UP Work Phone: [facility] 12-20-2021 09:25-0400 Heart rate 91 /min Ankita Juliana SWEATBAND SEPARATOR.PRESS SET UP Work Phone: [facility] 12-20-2021 09:25-0400 Respiratory rate 16 /min Ankita Juliana SWEATBAND SEPARATOR.PRESS SET UP Work Phone: [facility] 12-20-2021 09:25-0400 SaO2% (BldA) [Mass fraction] 100 % Ankita Juliana SWEATBAND SEPARATOR.PRESS SET UP Work Phone: [facility] 12-20-2021 09:25-0400 Systolic blood pressure 144 mm[Hg] Ankita Juliana SWEATBAND SEPARATOR.PRESS SET UP Work Phone: [facility] 11-14-2021 10:01-0400 Body weight 95.71 kg Jese Zheng DO Work Phone: [facility] 11-14-2021 10:01-0400 Diastolic blood pressure 82 mm[Hg] Jese Zheng DO Work Phone: [facility] 11-14-2021 10:01-0400 Heart rate 98 /min Jese Zheng DO Work Phone: [facility] 11-14-2021 10:01-0400 Respiratory rate 16 /min Jese Zheng DO Work Phone: [facility] 11-14-2021 10:01-0400 SaO2% (BldA) [Mass fraction] 98 % Jese Zheng DO Work Phone: [facility] 11-14-2021 10:01-0400 Systolic blood pressure 138 mm[Hg] Jese Zheng DO Work Phone: [facility] 10-13-2021 08:40-0400 Body temperature 97.11 [degF] Jese Zheng DO Work Phone: [facility] 10-13-2021 08:40-0400 Body weight 97.07 kg Jese Zheng DO Work Phone: [facility] 10-13-2021 08:40-0400 Diastolic blood pressure 90 mm[Hg] Jese Zheng DO Work Phone: [facility] 10-13-2021 08:40-0400 Heart rate 80 /min Jese Zheng DO Work Phone: [facility] 10-13-2021 08:40-0400 Respiratory rate 16 /min Jese Zhneg DO Work Phone: [facility] 10-13-2021 08:40-0400 Systolic blood pressure 146 mm[Hg] Jese Zheng DO Work Phone: [facility] Encounters Encounter Date Encounter Type Care Provider Facility Start: 02-24-2025 Non-patient / Non-visit Dr. Clarissa Rodriguez [facility] Work Phone: Start: 02-24-2025 Non-patient / Non-visit Dr. Raya [facility] Start: 02-23-2025 Non-patient / Non-visit Dr. Raya [facility] Start: 02-22-2025 End: 02-25-2025 Evaluation and management of inpatient Dr. Denton Cook MD -[facility] Work Phone: Start: 02-22-2025 Non-patient / Non-visit Dr. Denton Rodriguez [facility] Work Phone: Start: 02-22-2025 End: 02-22-2025 Office outpatient visit 25 minutes Selin Garcia APRN.PRESS SET UP Work Phone: [facility] Comment on above: Chest pain on breath ing (Primary Dx); Type 2 diabetes mellitus with peripheral neuropathy (HCC); Shortness of breath; Fatigue, unspecified type Start: 02-22-2025 End: 02-22-2025 ambulatory Jese L Zheng DO Work Phone: [facility] Comment on above: Shortness of Breath Start: 01-25-2025 End: 02-03-2025 Follow-up encounter Corrine Louise APRN.[facility] Work Phone: [facility] Start: 01-25-2025 End: 01-25-2025 Telephone encounter Susana Garcia [facility] Work Phone: [facility] Comment on above: Results Start: 01-21-2025 End: 01-21-2025 Patient encounter procedure Susana Goldsmithcasio [facility] Work Phone: [facility] Comment on above: Uncontrolled type 2 diabetes mellitus with hyperglycemia (HCC) (Primary Dx) Start: 01-21-2025 End: 01-21-2025 ambulatory JESE L ZHENG Facility:[facility] Start: 01-11-2025 End: 01-12-2025 Refill Jese L Zheng DO Work Phone: [facility] Comment on above: Refill Request Start: 12-30-2024 End: 12-30-2024 Patient encounter procedure Jese L Zheng DO Work Phone: [facility] Comment on above: Type 2 diabetes adi itus without complication, with long-term current use of insulin (HCC) (Primary Dx); Trigger middle finger of right hand; Right hand pain; Dysuria; Dyslipidemia; Essential hypertension Start: 12-30-2024 End: 12-30-2024 ambulatory JESE L ZHENG Facility:[facility] Start: 12-16-2024 End: 02-15-2025 Follow-up encounter Natali Carrington Sofia GONZALEZ Work Phone: [facility] [place] Start: 12-11-2024 ambulatory JESE ZHENG Facil ity:[facility] Start: 12-10-2024 End: 12-10-2024 ambulatory JESE Ludmila ESTRADAZHENG Facility:[facility] Start: 11-26-2024 End: 11-26-2024 ambulatory JESE ESTRADARISON Facility:[facility] Start: 11-26-2024 End: 11-26-2024 Patient encounter procedure Susana Garcia [facility] Work Phone: [facility] Comment on above: Uncontrolled type 2 diabetes mellitus with hyperglycemia (HCC) (Primary Dx) Start: 11-16-2024 End: 11-16-2024 Refill Jese Ludmila Zheng DO Work Phone: [facility] [place] Comment on above: Refill Request Start: 10-29-2024 End: 10-29-2024 ambulatory JESE ZHENG Facility:[facility] Start: 10-29-2024 End: 10-29-2024 Patient encounter procedure Susana Teresadanica [facility] Work Phone: [facility] Comment on above: Uncontrolled type 2 diabetes mellitus with hyperglycemia (HCC) (Primary Dx) Start: 09-24-2024 End: 09-24-2024 E-mail encounter from caregiver Susana Goldsmithmajo [facility] Work Phone: [facility] Start: 09-24-2024 End: 09-24-2024 Follow-up encounter Susana Garcia [facility] Work Phone: [facility] Comment on above: Pharmacist Follow Up Visit Start: 09-23-2024 End: 09-23-2024 ambulatory JESE Ludmila ZHENG Facility:[facility] Start: 09-23-2024 End: 09-23-2024 Patient encounter procedure Jese Estradarison DO Work Phone: [facility] [place] Comment on above: Type 2 diabetes adi itus with peripheral neuropathy (HCC) (Primary Dx); Acute cough; Rhonchi at both lung bases; Shortness of breath; COVID-19; Vitamin B12 deficiency; Vitamin D deficiency; Dyslipidemia; Essential hypertension; Trigger middle finger of right hand; Right hand pain Start: 09-09-2024 End: 09-09-2024 Refill Jese L Zheng DO Work Phone: [facility] [place] Comment on above: Refill Request Start: 07-23-2024 End: 07-23-2024 ambulatory JESE L ZHENG Facility:[facility] Start: 07-23-2024 End: 07-23-2024 Patient encounter procedure Susana Garcia [facility] Work Phone: [facility] Comment on above: Uncontrolled type 2 diabetes mellitus with hyperglycemia (HCC) (Primary Dx) Start: 07-21-2024 End: 07-21-2024 Telephone encounter John Brown MD Work Phone: Orthopaedics Comment on above: Results Start: 07-20-2024 End: 07-20-2024 ambulatory JESE L ZHENG Facility:[facility] Start: 07-20-2024 End: 07-20-2024 ambulatory JESE L ZHENG Facility:[facility] Start: 07-20-2024 End: 07-20-2024 Patient encounter procedure John Brown MD Work Phone: Orthopaedics Comment on above: Type 2 diabetes adi itus with peripheral neuropathy (HCC) (Primary Dx); Right hand pain; Trigger finger, unspecified finger, unspecified laterality Start: 07-16-2024 End: 07-28-2024 Telephone encounter Jese L Zheng DO Work Phone: [facility] Comment on above: Patient Question Start: 07-06-2024 End: 07-06-2024 Telephone encounter Susana Garcia [facility] Work Phone: [facility] Comment on above: Appointment (Pharmac ist Visit Rescheduling) Start: 06-23-2024 End: 06-23-2024 Subsequent hospital visit by physician Radhika [facility] [place] Work Phone: Radiology Comment on above: Right hand pain [M79 .641] Start: 06-23-2024 End: 06-23-2024 ambulatory JESE ZHENG Facility:[facility] Start: 06-23-2024 End: 06-23-2024 ambulatory JESE ZHENG Facility:[facility] Start: 05-05-2024 End: 05-05-2024 Telephone encounter Jese Zheng DO Work Phone: [facility] [place] Start: 05-04-2024 End: 05-04-2024 Telephone encounter Jese Zheng DO Work Phone: [facility] [place] Comment on above: Insurance Authorizat ion Start: 05-01-2024 End: 05-04-2024 ambulatory Susana Goldsmithcasio [facility] Work Phone: [facility] Start: 05-01-2024 End: 05-04-2024 Patient encounter procedure Susana Rupalcasio [facility] Work Phone: [facility] Comment on above: tredella Start: 04-23-2024 End: 04-23-2024 ambulatory JESE ZHENG Facility:[facility] Start: 04-23-2024 End: 04-23-2024 Patient encounter procedure Susana Goldsmithcasio [facility] Work Phone: [facility] Comment on above: Uncontrolled type 2 diabetes mellitus with hyperglycemia (HCC) (Primary Dx) Start: 04-15-2024 End: 04-16-2024 Documentation procedure Mammography Coordinator LOD ANCILLARY AREA NOT LISTED Start: 04-15-2024 End: 04-16-2024 Letter encounter Mammography Coordinator LODI ANCILLARY AREA NOT LISTED Start: 04-14-2024 ambulatory JESE ZHENG Facil ity:[facility] Start: 04-14-2024 End: 04-14-2024 Subsequent hospital visit by physician Mammo/Bone Density [facility]MO [facility] Comment on above: Encounter for screen ing mammogram for breast cancer [Z12.31] Start: 04-07-2024 End: 04-07-2024 Refill Jese Zheng DO Work Phone: [facility] [place] Comment on above: Refill Request Start: 03-19-2024 End: 03-19-2024 ambulatory JESE ZHENG Facility:[facility] Start: 03-17-2024 End: 03-17-2024 ambulatory JESE ZHENG Facility:[facility] Start: 03-17-2024 End: 03-17-2024 Patient encounter procedure Jese Zheng DO Work Phone: [facility] [place] Comment on above: Type 2 diabetes adi itus without complication, with long-term current use of insulin (HCC) (Primary Dx); Vitamin B12 deficiency; Dyslipidemia; Vitamin D deficiency; Essential hypertension; Gastroesophageal reflux disease, unspecified whether esophagitis present Start: 03-05-2024 End: 03-05-2024 ambulatory JESE ZHENG Facility:[facility] Start: 03-05-2024 End: 03-05-2024 Patient encounter procedure Susana Goldsmithcasio [facility] Work Phone: [facility] Comment on above: Uncontrolled type 2 diabetes mellitus with hyperglycemia (HCC) (Primary Dx) Start: 02-06-2024 Telephone encounter Susana Goldsmithcasio [facility] Work Phone: [facility] Comment on above: Missed Appointment Start: 01-28-2024 ambulatory Susana torresasio [facility] Work Phone: [facility] Start: 01-28-2024 Patient encounter procedure Susanagela Goldsmithcasio [facility] Work Phone: [facility] Comment on above: tredella Start: 01-28-2024 Telephone encounter Susanagela Goldsmithcasio [facility] Work Phone: [facility] Comment on above: Patient Update Start: 01-24-2024 Refill Corrine Louise APRN.[employer] SET UP Work Phone: [facility] [place] Comment on above: Refill Request Start: 01-10-2024 Telephone encounter Jese gandhi DO Work Phone: [facility] [place] Comment on above: Insurance Authorizat ion (Ozempic) Insurance Authorizat ion Start: 01-09-2024 End: 01-09-2024 Patient encounter procedure Susana Goldsmithcasio [facility] Work Phone: [facility] Comment on above: Uncontrolled type 2 diabetes mellitus with hyperglycemia (HCC) (Primary Dx) Start: 12-27-2023 Telephone encounter Jese Ludmila gandhi DO Work Phone: [facility] [place] Start: 11-27-2023 End: 11-27-2023 Patient encounter procedure Jese Ludmila Zavalaon DO Work Phone: [facility] [place] Comment on above: Type 2 diabetes adi itus without complication, with long-term current use of insulin (HCC) (Primary Dx); Vitamin B12 deficiency; Hepatic steatosis; Dyslipidemia; Acute otitis externa of right ear, unspecified type; Carotid atherosclerosis, bilateral Start: 11-25-2023 Refill Jese escobar DO Work Phone: [facility] [place] Comment on above: Refill Request Start: 10-31-2023 End: 10-31-2023 Patient encounter procedure Susana Goldsmithcasio [facility] Work Phone: [facility] Comment on above: Uncontrolled type 2 diabetes mellitus with hyperglycemia (HCC) (Primary Dx) Start: 10-31-2023 ambulatory Susana torresasio [facility] Work Phone: [facility] Comment on above: tredella Start: 10-10-2023 Telephone encounter Jese Ludmila gandhi DO Work Phone: [facility] [place] Comment on above: Patient Question Start: 10-09-2023 ambulatory Jese escobar DO Work Phone: [facility] [place] Start: 09-26-2023 End: 09-26-2023 Patient encounter procedure Susana Goldsmithcasio [facility] Work Phone: [facility] Comment on above: Uncontrolled type 2 diabetes mellitus with hyperglycemia (HCC) (Primary Dx) Start: 09-21-2023 Telephone encounter Jese Ludmila gandhi DO Work Phone: [facility] [place] Start: 09-20-2023 End: 09-20-2023 Patient encounter procedure Jese Zheng DO Work Phone: [facility] [place] Comment on above: Acute non-recurrent maxillary sinusitis (Primary Dx); Acute bronchitis, unspecified organism; Rhinorrhea Start: 09-04-2023 Refill Jese Ludmila Ramirez luz DO Work Phone: [facility] [place] Start: 08-27-2023 End: 08-27-2023 Patient encounter procedure Jese Keys Zheng DO Work Phone: [facility] [place] Comment on above: Type 2 diabetes adi itus with peripheral neuropathy (HCC) (Primary Dx); Other polyneuropathy; Fatigue, unspecified type; Dyslipidemia; Hepatic steatosis; Obesity, Class I, BMI 30-34.9; Vitamin D deficiency; Acute bronchitis, unspecified organism Refill Request Start: 08-22-2023 End: 08-22-2023 Patient encounter procedure Susana Golsdmithcasio [facility] Work Phone: [facility] Comment on above: Uncontrolled type 2 diabetes mellitus with hyperglycemia (HCC) (Primary Dx) Start: 06-27-2023 End: 06-27-2023 Patient encounter procedure Susana Paneccasio [facility] Work Phone: [facility] Comment on above: Uncontrolled type 2 diabetes mellitus with hyperglycemia (HCC) (Primary Dx) Start: 06-18-2023 Telephone encounter Susana Rupalcasio [facility] Work Phone: [facility] Comment on above: Patient Update Start: 06-06-2023 End: 06-06-2023 Patient encounter procedure Susana Paneccasio [facility] Work Phone: [facility] Comment on above: Uncontrolled type 2 diabetes mellitus with hyperglycemia (HCC) (Primary Dx) Start: 06-06-2023 E-mail encounter darlene m caregiver Susana Paneccasio [facility] Work Phone: [facility] [place] Start: 06-06-2023 Follow-up encounter Susana Teresaeccasio [facility] Work Phone: [facility] Comment on above: Pharmacy Visit Follo w Up Start: 05-29-2023 Telephone encounter Jese gandhi DO Work Phone: [facility] [place] Comment on above: Medication Problem Start: 05-28-2023 Telephone encounter Jese gandhi DO Work Phone: [facility] [place] Comment on above: Results Start: 05-28-2023 ambulatory JESE Shaffer ity:[id number] Start: 05-28-2023 End: 05-28-2023 [facility] Comment on above: Right leg swelling [ M79.89] Start: 05-27-2023 End: 05-27-2023 Patient encounter procedure Jese Zheng DO Work Phone: [facility] [place] Comment on above: Type 2 [...] Telephone encounter Mitchel Alfonso MD Work Phone: [facility] [facility] Comment on above: Results; Covid Posit hiren (Paxlovid) Start: 04-05-2023 End: 04-05-2023 Patient encounter procedure Mitchel Carney MD Work Phone: [place] Comment on above: Acute non-recurrent sinusitis, unspecified location (Primary Dx) Start: 04-02-2023 Refill Jese escobar DO Work Phone: [facility] [place] Comment on above: Refill Request Start: 03-25-2023 Refill Jese escobar DO Work Phone: [facility] [place] Comment on above: Refill Request Start: 03-14-2023 Telephone encounter Jese gandhi DO Work Phone: [facility] [place] Comment on above: Results Start: 02-26-2023 Telephone encounter Jese gandhi DO Work Phone: [facility] Comment on above: Results Start: 02-26-2023 End: 02-26-2023 Subsequent hospital visit by physician [facility] (I-Stat) Work Phone: Cat Scan Comment on above: SOB (shortness of br eath) [R06.02] Start: 02-24-2023 Refill Luciano merida MD Work Phone: [facility] Comment on above: Refill Request Start: 02-19-2023 End: 02-19-2023 Subsequent hospital visit by physician Xr [facility] [place] Work Phone: Radiology Comment on above: SOB (shortness of br eath) [R06.02] Start: 02-19-2023 End: 02-19-2023 Patient encounter procedure Jese Zheng DO Work Phone: [facility] Comment on above: Current moderate epi sode of major depressive disorder without prior episode (HCC) (Primary Dx); Type 2 diabetes mellitus with peripheral neuropathy (HCC); Fatigue, unspecified type; Dyslipidemia; SOB (shortness of breath); Wheezing; Pulmonary nodule; Multiple lung nodules Start: 01-31-2023 Telephone encounter Jese gandhi DO Work Phone: [facility] Comment on above: Insurance Authorizat ion (Freestlye michi) Refill Request Start: 01-03-2023 Chart abstracting Elena peace [facility] Work Phone: Psychology Comment on above: Refill Request Start: 12-27-2022 End: 12-27-2022 Patient encounter procedure Shayan La Honda [facility] Work Phone: [facility] Comment on above: Uncontrolled type 2 diabetes mellitus with hyperglycemia (HCC) (Primary Dx) Start: 12-06-2022 End: 12-06-2022 ambulatory [facility] Work Phone: Start: 12-06-2022 End: 12-06-2022 Patient encounter procedure [facility], [facility] Start: 11-29-2022 End: 11-29-2022 Subsequent hospital visit by physician Arnie Herrera [facility] Work Phone: Nuclear Medicine Comment on above: Nausea [R11.0] Start: 11-20-2022 Telephone encounter Ankita Cm APRN.CNP Work Phone: [facility] [place] Comment on above: CT Scan Insurance Is ramez Start: 11-15-2022 End: 11-15-2022 Patient encounter procedure [facility] Work Phone: [facility] Comment on above: Uncontrolled type 2 diabetes mellitus with hyperglycemia (HCC) (Primary Dx); Essential hypertension Start: 11-08-2022 End: 11-08-2022 Subsequent hospital visit by physician Radhika [facility] [place] [facility] Work Phone: Radiology Comment on above: Chest tightness [R07 .89] Nausea [R11.0] Start: 11-08-2022 End: 11-08-2022 Patient encounter procedure Ankita Green APRN.CNP Work Phone: [facility] Comment on above: Nausea (Primary Dx); Pain of upper abdomen; Type 2 diabetes mellitus with peripheral neuropathy (HCC); RUQ pain; Gastroesophageal reflux disease, unspecified whether esophagitis present; Abdominal bloating; Acute left flank pain; Chest tightness Start: 10-29-2022 Refill Corrine Dani GONZALEZ Work Phone: [facility] Comment on above: Refill Request Start: 10-18-2022 Telephone encounter Brandy Ramirez MD Work Phone: General Surgery Comment on above: Appointment (Appoint ment with Dr. Ramirez for 10/18/22) Start: 10-18-2022 End: 10-18-2022 Patient encounter procedure Shayan [facility] Work Phone: [facility] Comment on above: Uncontrolled type 2 diabetes mellitus with hyperglycemia (HCC) (Primary Dx) Urinary frequency (P rimary Dx); Glucosuria; Acute left-sided low back pain without sciatica Start: 10-01-2022 Refill Corrine Dani [employer] Work Phone: [facility] Comment on above: Refill Request Start: 09-26-2022 Refill Corrine Louise SWEATBAND SEPARATOR.PRESS SET UP Work Phone: [facility] Comment on above: Refill Request Start: 09-17-2022 ambulatory ELENA Tony cility:[facility] Start: 09-13-2022 End: 09-13-2022 Patient encounter procedure Shayan Martinez [facility] Work Phone: [facility] Comment on above: Uncontrolled type 2 diabetes mellitus with hyperglycemia (HCC) (Primary Dx) Refill Request Start: 09-07-2022 Documentation procedure Mammog bozena Coordinator [facility] Start: 09-07-2022 Letter encounter Mammography Coordinator [facility] Department Start: 09-06-2022 End: 09-06-2022 Subsequent hospital visit by physician Screen Mammo [facility] Comment on above: Encounter for screen ing mammogram for malignant neoplasm of breast [Z12.31] Start: 08-30-2022 Refill Corrine Dani SONIN.[employer] Work Phone: [facility] [place] Comment on above: Refill Request Start: 08-29-2022 Telephone encounter Jese gandhi DO Work Phone: [facility] [place] Comment on above: Reprint work excuses from a year ago Start: 08-04-2022 Refill Jese escobar DO Work Phone: [facility] [place] Comment on above: Refill Request Start: 07-27-2022 Refill Corrine Dani PURI.[employer] SET [employer] Work Phone: [facility] [place] Comment on above: Refill Request Start: 07-24-2022 [...] 30-34.9 Start: 07-09-2022 Refill Corrine Russellscotty jacobs APRN.PRESS SET UP Work Phone: [facility] Comment on above: Refill Request Start: 06-29-2022 Refill Jese Ramirez son DO Work Phone: [facility] [place] Comment on above: Refill Request Start: 06-25-2022 End: 06-25-2022 ambulatory Ankita Juliana [employer] Work Phone: [facility] [place] Comment on above: Influenza A (Primary Dx); Persistent cough; Fever, unspecified fever cause Start: 06-25-2022 End: 06-25-2022 Telemedicine consultation with patient Ankita Dumontamos [employer] Work Phone: [facility] [place] Start: 06-21-2022 End: 06-21-2022 Patient encounter procedure Shayanashely Villedago [facility] Work Phone: [facility] Comment on above: Uncontrolled type 2 diabetes mellitus with hyperglycemia (HCC) (Primary Dx); Essential hypertension Start: 05-30-2022 Telephone encounter Shayan Villedaarturo dodge [facility] Work Phone: [facility] Comment on above: Appointment Start: 05-29-2022 End: 05-29-2022 Patient encounter procedure Brandy Ramirez MD Work Phone: General Surgery Comment on above: Abdominal pain, unsp ecified abdominal location (Primary Dx); Change in bowel habits Start: 05-24-2022 End: 05-24-2022 Subsequent hospital visit by physician Ct Prep [facility] Comment on above: Nausea [R11.0] Start: 05-21-2022 End: 05-21-2022 Patient encounter procedure [facility] Work Phone: [facility] [place] Comment on above: Right flank pain (Pr imary Dx); RUQ pain; Chronic RLQ pain; Nausea; Nausea and vomiting, unspecified vomiting type Start: 05-20-2022 End: 05-20-2022 Patient encounter procedure Kanwal Campbell SWEATBAND SEPARATOR.PRESS SET UP Work Phone: [facility] Comment on above: Acute right-sided lo w back pain without sciatica (Primary Dx) Start: 05-02-2022 Refill Corrine Almontejulio jacobs SWEATBAND SEPARATOR.PRESS SET UP Work Phone: [facility] [place] Comment on above: Refill Request Start: 05-02-2022 Refill Jese escobar DO Work Phone: [facility] [place] Comment on above: Refill Request Start: 04-27-2022 End: 04-27-2022 Patient encounter procedure Jese Zheng DO Work Phone: [facility] [place] Comment on above: Uncontrolled type 2 diabetes mellitus with hyperglycemia (HCC) (Primary Dx); Vitamin D deficiency; Vitamin B12 deficiency; Need for influenza vaccination; Need for shingles vaccine; Essential hypertension; Hyperlipidemia, mixed Start: 04-25-2022 End: 04-25-2022 Subsequent hospital visit by physician Bone Density [facility] Work Phone: Radiology Comment on above: Screening for osteop orosis [Z13.820] Start: 03-22-2022 Refill Corrine Zurjulio jacobs SWEATBAND SEPARATOR.PRESS SET UP Work Phone: [facility] [place] Comment on above: Refill Request Start: 03-05-2022 Refill Jese escobar DO Work Phone: [facility] Comment on above: Refill Request Start: 02-08-2022 End: 02-08-2022 Patient encounter procedure Shayanashely Villedago [facility] Work Phone: [facility] Comment on above: Uncontrolled type 2 diabetes mellitus with hyperglycemia (HCC) (Primary Dx); Medication management Start: 01-25-2022 Telephone encounter Shayanashely Villedaarturo dodge [facility] Work Phone: [facility] Comment on above: Missed Appointment Start: 01-02-2022 Telephone encounter Jese gandhi DO Work Phone: [facility] [place] Comment on above: Results Start: 01-01-2022 Telephone encounter Jese gandhi DO Work Phone: [facility] Comment on above: Results Start: 12-30-2021 End: 12-30-2021 Subsequent hospital visit by physician Radhika [facility] [place] Work Phone: Radiology Comment on above: Ingrown left greater toenail [L60.0] Start: 12-30-2021 End: 12-30-2021 Patient encounter procedure Jese Zheng DO Work Phone: [facility] Comment on above: Ingrown left greater toenail (Primary Dx); Localized swelling of left foot; Pain of left heel; Injury of left heel, subsequent encounter; Left foot pain Start: 12-27-2021 Telephone encounter Jese gandhi DO Work Phone: [facility] Comment on above: Patient Update; Sybil ent Question Start: 12-26-2021 Refill Emma jaimes SWEATBAND SEPARATOR.[employer] SET [employer] Work Phone: Neurology Comment on above: Refill Request Start: 12-21-2021 Telephone encounter Shayan dodge [facility] Work Phone: [facility] Comment on above: Results (A1c) Orders Start: 12-20-2021 End: 12-20-2021 Patient encounter procedure Ankita Juliana PURI.[employer] SET UP Work Phone: [facility] Comment on above: Cellulitis of left f oot (Primary Dx) Start: 11-15-2021 Telephone encounter Jese Morris jamehola DO Work Phone: [facility] Comment on above: Results Start: 11-14-2021 ambulatory Jese Ramirez luz DO Work Phone: [facility] Comment on above: xrays Start: 11-14-2021 E-mail encounter fro m caregiver Jese Zheng DO Work Phone: [facility] [place] Start: 11-14-2021 End: 11-14-2021 Subsequent hospital visit by physician Radhika [facility] [place] Work Phone: Radiology Comment on above: Injury of left thumb , initial encounter [S69.92XA] Start: 11-14-2021 End: 11-14-2021 Patient encounter procedure Jese Zheng DO Work Phone: [facility] Comment on above: Uncontrolled type 2 diabetes mellitus with hyperglycemia (HCC) (Primary Dx); Essential hypertension; Chronic constipation; Injury of left thumb, initial encounter; Injury of left wrist, initial encounter; Hyperlipidemia, mixed; Generalized abdominal pain; Obesity, Class I, BMI 30-34.9 Start: 10-30-2021 Refill Corrine Dusty jacobs APRN.CNP Work Phone: [facility] Comment on above: Refill Request Start: 10-18-2021 End: 10-18-2021 Subsequent hospital visit by physician [facility] ([facility]) Work Phone: Cat Scan Comment on above: Adverse effect of tr eatment, subsequent encounter [T88.9XXD] Start: 10-16-2021 Telephone encounter Brandy Ramirez MD Work Phone: General Surgery Comment on above: Patient Question Start: 10-13-2021 End: 10-13-2021 Patient encounter procedure Jese Zheng DO Work Phone: [facility] Comment on above: Uncontrolled type 2 diabetes mellitus with hyperglycemia (HCC) (Primary Dx); Essential hypertension; Hyperlipidemia, mixed; Generalized abdominal pain Start: 04-10-2021 End: 04-10-2021 Subsequent hospital visit by physician Xr [facility] [place] Work Phone: Radiology Comment on above: Generalized abdomina l pain [R10.84] Start: 12-01-2020 End: 12-01-2020 Subsequent hospital visit by physician Xr [facility] [place] Work Phone: Radiology Comment on [...] ast 12 lds i&r only Selin Garcia SWEATBAND SEPARATOR.PRESS SET UP Work Phone: Start: 12-30-2024 Hemoglobin A1c/Hemoglobin.total in [...] Jese Zheng DO Work Phone: Start: 05-27-2023 Blurr COVI D-19 VACCINE ( SEASON) AGE 12+ [...] imag inc gb w/pharma intervenj Ankita Juliana SWEATBAND SEPARATOR.PRESS SET UP Work Phone: Start: 11-08-2022 Us abdominal real ti me w/image limited Ankita Juliana SWEATBAND SEPARATOR.PRESS SET UP Work Phone: Start: 11-08-2022 Radiologic exam ches t 2 views Ankita Juliana SWEATBAND SEPARATOR.PRESS SET UP Work Phone: Start: 11-08-2022 Culture bacterial quanttative colony count urine Ankita Juliana SWEATBAND SEPARATOR.PRESS SET UP Work Phone: Start: 11-08-2022 Urnls dip stick/tabl et rgnt auto w/o microscopy Ankita Juliana SWEATBAND SEPARATOR.[employer] SET UP Work Phone: Start: 11-08-2022 Hemoglobin A1c/Hemoglobin.total in Blood Ankita Juliana SWEATBAND SEPARATOR.[employer] SET [employer] Work Phone: Start: 10-18-2022 Urnls dip stick/tabl et rgnt auto w/o microscopy Daxa Ceballos PA-C Work Phone: Start: 09-17-2022 Colonoscopy Corrine Tanna son SWEATBAND SEPARATOR.PRESS SET UP Work Phone: Start: 09-06-2022 CHANTELL SCREENING W CAROLYN Zheng DO Work Phone: Start: 09-06-2022 Mammography Mammograph y Coordinator Start: 05-24-2022 Ct abdomen & pelvis w/o contrast material Ankita Juliana SWEATBAND SEPARATOR.PRESS SET UP Work Phone: Start: 05-20-2022 Urnls dip stick/tabl et rgnt auto w/o microscopy Kanwal Campbell SWEATBAND SEPARATOR.[employer] SET [employer] Work Phone: Start: 04-27-2022 INFLUENZA VACCINE QUADRIVALENT [...] exam abdo men 2 views Tamara Bauer SWEATBAND SEPARATOR.PRESS SET UP, DNP Work Phone: Start: 12-01-2020 Radex spine lumbosac ral 2/3 views Tre Zendejas MD Work Phone: Start: 08-16-2015 Colonoscopy Jese Gar rison DO Work Phone: Plan of Treatment Date Care Activity Detail Author Start: 12-30-2034 Urine microalbumin profile DTaP,Tdap,Td Vaccine (4 - Td or Tdap) [facility] Start: 09-17-2032 Colonoscopy COLONOSCOPY [facility] Start: 09-17-2032 COLORECTAL CANCER SCREENING COLORECTAL CANCER SCREENING [facility] Start: 09-17-2032 Screening for malign ant neoplasm of colon [facility] Start: 02-22-2026 Annual PCP Team Day Care Teacher koby Disease Visit Annual PCP Team Chronic Disease Visit [facility] Start: 12-30-2025 Annual PCP Team Day Care Teacher koby Disease Visit Annual PCP Team Chronic Disease Visit [facility] Start: 09-23-2025 Annual PCP Team Day Care Teacher koby Disease Visit Annual PCP Team Chronic Disease Visit [facility] Start: 08-16-2025 Colonoscopy COLONOSCOPY [facility] Start: 08-16-2025 COLORECTAL CANCER SCREENING COLORECTAL CANCER SCREENING [facility] Start: 08-05-2025 Diabetic foot examination Diabetic Foot Exam [facility] Start: 06-23-2025 Annual PCP Team Day Care Teacher koby Disease Visit Annual PCP Team Chronic Disease Visit [facility] Start: 04-23-2025 Hemoglobin A1c measurement HbA1C [facility] Start: 04-14-2025 Screening for malign ant neoplasm of breast Mammogram Screening [facility] Start: 04-06-2025 End: 04-06-2025 Patient encounter procedure 04/06/2025 2:00 PM EDT Office Visit [facility] [address] [place], [place] [id number] Jese Zheng DO [address] [place], [place] [address] 3 month follow up [facility] [place] Comment on above: 3 month follow up Start: 04-01-2025 Hemoglobin A1c measurement HbA1C [facility] Start: 03-22-2025 Influenza vaccination Influenza Vacc ine (#1) [facility] Start: 03-19-2025 Hepatitis B screening Urine Al bumin:Creatinine Ratio [facility] Start: 03-19-2025 Hepatitis B surface antibody level LDL Cholesterol [facility] Start: 03-17-2025 Annual PCP Team Day Care Teacher koby Disease Visit Annual PCP Team Chronic Disease Visit [facility] Start: 02-25-2025 End: 02-25-2025 Patient encounter procedure 02/25/2025 3:00 PM EDT Office Visit [facility] [address] [place] [address] Susana Garcia, [facility] [address] [place] [address] DM f/up [facility] Comment on above: DM f/up [facility]: [facility]-25-[facility]25 [facility] Start: 02-24-[facility]25 Oxygen therapy [facility] Start: 02-23-[facility]25 [facility] Start: 02-23-2025 Catheterization of vein [facility] Start: 02-23-2025 Notification of physician [facility] Start: 02-23-2025 Preoperative care [facility] Start: 02-23-2025 [facility] Start: 02-23-2025 US Heart [facility] Start: 02-22-2025 Following clinical pathway protocol [facility] Start: 02-22-2025 Assessment of risk o f venous thromboembolism [facility] Start: 02-22-2025 Insertion of cathete r into peripheral vein [facility] Start: 02-22-2025 Measuring intake and output [facility] Start: 02-22-2025 Providing care accor ding to standard [facility] Start: 02-22-2025 Referral to house visitor [facility] Start: 02-22-2025 [facility] Start: 02-22-2025 Verification routine [facility] Start: 02-22-2025 Admission procedure [facility] Start: 02-22-2025 Hospital admission, emergency, from emergency room, medical nature [facility] Start: 02-22-2025 [facility] Start: 02-22-2025 End: 02-22-2025 [facility] Start: 02-22-2025 Patient referral to dietitian [facility] Start: 01-21-2025 End: 01-21-2025 Patient encounter procedure 01/21/2025 3:00 PM EDT [facility] Visit [facility] [address] [place] [address] [facility] [address] [place] [address] DM f/up [facility] Comment on above: DM f/up Start: 01-21-2025 End: 04-22-2025 Basic metabolic 2000 panel - Serum or Plasma [facility] Work Phone: Comment on above: Expected: 01/21/2025 , Expires: 04/22/2025 Start: 12-30-2024 End: 12-30-2024 Patient encounter procedure 12/30/2024 2:40 PM EDT Office Visit [facility] [place] [address] [place] [address] Jese Zheng DO [address] [facility] [place] [id number] 3 month follow up [facility] [place] Comment on above: 3 month follow up Start: 12-30-2024 End: 03-31-2025 Urinalysis complete panel - Urine URINALYSIS (WITH MICROSCOPIC) WITH CULTURE IF INDICATED Lab Routine Dysuria Expected: 12/30/2024, Expires: 03/31/2025 [facility] Work Phone: Comment on above: Expected: 12/30/2024 , Expires: 03/31/2025 Start: 12-24-2024 Hemoglobin A1c measurement HbA1C [facility] Start: 11-26-2024 End: 11-26-2024 Patient encounter procedure 11/26/2024 2:30 PM EDT Office Visit [facility] [address] [place] [address] Susana Garcia, [facility] [address], [place] [phone] DM f/up [facility] Comment on above: DM f/up Start: 11-26-2024 Annual PCP Team Day Care Teacher koby Disease Visit Annual PCP Team Chronic Disease Visit [facility] Start: 11-26-2024 BP Controlled (<130/80) BP Controlle d (<130/80) [facility] Start: 10-29-2024 Glaucoma screening Dilated Retinal E xam [facility] Start: 2024 RSV Vaccine (1 - Ris k 60-74 years 1-dose series) RSV Vaccine (1 - Risk 60-74 years 1-dose series) [facility] Start: 10-18-2024 Hemoglobin A1c measurement HbA1C [facility] Start: 09-23-2024 End: 09-23-2024 Patient encounter procedure 09/23/2024 3:00 PM EST Office Visit [facility] [place] [address] [place] [address] Jese Zheng DO [address] [place] [address] 3 month follow up [facility] [place] Comment on above: 3 month follow up Start: 09-19-2024 Annual PCP Team Day Care Teacher koby Disease Visit Annual PCP Team Chronic Disease Visit [facility] Start: 09-04-2024 Diabetic foot examination Diabetic Foot Exam [facility] Start: 09-03-2024 End: 09-03-2024 Patient encounter procedure 09/03/2024 2:30 PM EST [facility] [address] [place] [address] [facility] [address] [place] [address] DM f/up [facility] Comment on above: DM f/up Start: 08-27-2024 Annual PCP Team Day Care Teacher koby Disease Visit Annual PCP Team Chronic Disease Visit [facility] Start: 08-27-2024 Hepatitis B surface antibody level LDL Cholesterol [facility] Start: 07-23-2024 End: 07-23-2024 Patient encounter procedure 07/23/2024 2:30 PM EST Office Visit [facility] [address] [facility] [address] [employer] [facility] [address] [place] [address] DM f/up [facility] Comment on above: DM f/up Start: 06-23-2024 End: 06-23-2024 Patient encounter procedure 06/23/2024 2:40 PM EST Office Visit [facility] [place] [address] [place] [address] Jese Zheng DO [address] [place], [place] [address] 3-4 month follow up [facility] [place] Comment on above: 3-4 month follow up Start: 06-19-2024 Hemoglobin A1c measurement HbA1C [facility] Start: 06-04-2024 End: 06-04-2024 Patient encounter procedure 06/04/2024 3:30 PM EST Office Visit [facility] [address] [place], [place] [address] [place] [address], [place] [phone] DM f/up [facility] Comment on above: DM f/up Start: 05-28-2024 BP Controlled (<130/80) BP Controlle d (<130/80) [facility] Start: 05-28-2024 Glaucoma screening Dilated Retinal E xam [facility] Start: 05-28-2024 Hepatitis C antibody , confirmatory test Dilated Retinal Exam [facility] Start: 05-27-2024 Annual PCP Team Day Care Teacher koby Disease Visit Annual PCP Team Chronic Disease Visit [facility] Start: 04-23-2024 End: 04-23-2024 Patient encounter procedure 04/23/2024 3:30 PM EDT Office Visit [facility] [address] [place], [place] [id number] [place] [address] [place] [address] DM f/up [facility] Comment on above: DM f/up Start: 04-14-2024 End: 04-14-2024 Patient encounter procedure 04/14/2024 5:00 PM EDT Appointment [facility] [address] [place] [phone] CHANTELL SCREENING W CAROLYN [facility] Comment on above: CHANTELL SCREENING W CAROLYN Start: 03-31-2024 End: 03-31-2024 Patient encounter procedure 03/31/2024 2:40 PM EDT Appointment Mammogram [address] [place], [place] [id number] Encounter for screening mammogram for breast cancer [Z12.31 Mammogram Comment on above: Encounter for screen ing mammogram for breast cancer [Z12.31 Start: 03-22-2024 Covid-19 Vaccine () Covid-19 Vaccine () [facility] Start: 03-22-2024 Influenza vaccination Influenza Vacc ine (#1) [facility] Start: 03-17-2024 End: 03-17-2024 Patient encounter procedure 03/17/2024 2:40 PM EDT Office Visit [facility] [place] [address] [place] [address] Jese Zheng DO [address] [place] [address] 3 month follow up [facility] [place] Comment on above: 3 month follow up Start: 03-17-2024 End: 06-16-2024 25-hydroxyvitamin D3 [Mass/volume] in Serum or Plasma VITAMIN D 25 HYDROXY Lab Routine Vitamin D deficiency Expected: 03/17/2024, Expires: 06/16/2024 [facility] Work Phone: Comment on above: Expected: 03/17/2024 , Expires: 06/16/2024 Start: 03-17-2024 End: 06-16-2024 CBC W Auto Differential panel - Blood COMPLETE BLOOD COUNT AND DIFFERENTIAL Lab Routine Type 2 diabetes mellitus without complication, with long-term current use of insulin (HCC) Dyslipidemia Expected: 03/17/2024, Expires: 06/16/2024 [facility] Comment on above: Expected: 03/17/2024 , Expires: 06/16/2024 Start: 03-17-2024 End: 06-16-2024 Cobalamin (Vitamin B12) [Mass/volume] in Serum or Plasma VITAMIN B12 Lab Routine Vitamin B12 deficiency Expected: 03/17/2024, Expires: 06/16/2024 [facility] Comment on above: Expected: 03/17/2024 , Expires: 06/16/2024 Start: 03-17-2024 End: 06-16-2024 Comprehensive metabolic 2000 panel - Serum or Plasma COMPREHENSIVE METABOLIC PANEL Lab Routine Type 2 diabetes mellitus without complication, with long-term current use of insulin (HCC) Dyslipidemia Expected: 03/17/2024, Expires: 06/16/2024 [facility] Comment on above: Expected: 03/17/2024 , Expires: 06/16/2024 Start: 03-17-2024 End: 06-16-2024 Hemoglobin A1c in Blood HEMOGLOBIN A1C Lab Routine Type 2 diabetes mellitus without complication, with long-term current use of insulin (HCC) Expected: 03/17/2024, Expires: 06/16/2024 [facility] Comment on above: Expected: 03/17/2024 , Expires: 06/16/2024 Start: 03-17-2024 End: 06-16-2024 Lipid 1996 panel - Serum or Plasma LIPID PANEL BASIC Lab Routine Dyslipidemia Expected: 03/17/2024, Expires: 06/16/2024 [facility] Comment on above: Expected: 03/17/2024 , Expires: 06/16/2024 Start: 02-27-2024 End: 05-28-2024 Comprehensive metabolic 2000 panel - Serum or Plasma COMPREHENSIVE METABOLIC PANEL Lab Routine Type 2 diabetes mellitus without complication, with long-term current use of insulin (HCC) Expected: 02/27/2024, Expires: 05/28/2024 [facility] Comment on above: Expected: 02/27/2024 , Expires: 05/28/2024 Start: 02-27-2024 End: 05-28-2024 Hemoglobin A1c in Blood HEMOGLOBIN A1C Lab Routine Type 2 diabetes mellitus without complication, with long-term current use of insulin ([facility]) Expected: 02/27/2024, Expires: 05/28/2024 [facility] Work Phone: Comment on above: Expected: 02/27/2024 , Expires: 05/28/2024 Start: 02-27-2024 Hemoglobin A1c measurement HbA1C [facility] Start: 02-27-2024 End: 05-28-2024 Lipid 1996 panel - Serum or Plasma LIPID PANEL BASIC Lab Routine Dyslipidemia Expected: 02/27/2024, Expires: 05/28/2024 [facility] Comment on above: Expected: 02/27/2024 , Expires: 05/28/2024 Start: 02-27-2024 End: 05-28-2024 Microalbumin/Creatinine [Mass Ratio] in Urine ALBUMIN/CREATININE RATIO, URINE Lab Routine Type 2 diabetes mellitus without complication, with long-term current use of insulin (HCC) Expected: 02/27/2024, Expires: 05/28/2024 [facility] Comment on above: Expected: 02/27/2024 , Expires: 05/28/2024 Start: 02-20-2024 ANNUAL PCP TEAM MONITORING AND EVALUATION ADVISOR KOBY DISEASE VISIT ANNUAL PCP TEAM CHRONIC DISEASE VISIT [facility] Start: 02-20-2024 Hepatitis B surface antibody level LDL CHOLESTEROL [facility] Start: 02-06-2024 End: 02-06-2024 Patient encounter procedure 02/06/2024 3:00 PM EDT Office Visit [facility] [address] [place] [address] [facility] [address], [place] [phone] DM f/up Pharm [facility] Comment on above: DM f/up Start: 01-29-2024 Urine microalbumin profile [facility] Start: 01-09-2024 End: 01-09-2024 Patient encounter procedure 01/09/2024 3:30 PM EDT Office Visit [facility] [address] [place] [address] [employer] [facility] [address], [place] [phone] DM f/up [facility] Comment on above: DM f/up Start: 12-26-2023 End: 12-26-2023 Patient encounter procedure Pharm [facility] Comment on above: DM f/up Carotid atherosclero sis, bilateral [I65.23] Start: 12-10-2023 End: 12-10-2023 Patient encounter procedure 12/10/2023 2:20 PM EDT Appointment Mammogram [address] [place] [address] Encounter for screening mammogram for breast cancer [Z12.31] Mammogram Comment on above: Encounter for screen ing mammogram for breast cancer [Z12.31] Start: 11-27-2023 End: 11-27-2023 Patient encounter procedure 11/27/2023 1:40 PM EDT Office Visit [facility] [place] [address] [place], [place] [address] Jese Zheng DO [address] [facility] [place] [address] 3 Month follow up [facility] [place] Comment on above: 3 Month follow up Start: 11-25-2023 Hemoglobin A1c measurement HbA1C [facility] Start: 11-16-2023 BP CONTROLLED (<130/80) BP CONTROLLE D (<130/80) [facility] Start: 11-09-2023 ANNUAL PCP TEAM MONITORING AND EVALUATION ADVISOR KOBY DISEASE VISIT ANNUAL PCP TEAM CHRONIC DISEASE VISIT [facility] Start: 09-06-2023 Mammography [facility] Start: 09-06-2023 Screening for malign ant neoplasm of breast Mammogram Screening [facility] Start: 08-27-2023 End: 11-26-2023 25-hydroxyvitamin D3 [Mass/volume] in Serum or Plasma [facility] Work Phone: Comment on above: Expected: 08/27/2023 , Expires: 11/26/2023 Start: 08-27-2023 End: 11-26-2023 Comprehensive metabolic 2000 panel - Serum or Plasma [facility] Work Phone: Comment on above: Expected: 08/27/2023 , Expires: 11/26/2023 Start: 08-27-2023 End: 11-26-2023 Hemoglobin A1c in Blood [facility] Work Phone: Comment on above: Expected: 08/27/2023 , Expires: 11/26/2023 Start: 08-27-2023 Hemoglobin A1c measurement HbA1C [facility] Start: 08-27-2023 Hemoglobin A1c/Hemoglobin.total in Blood HbA1C [facility] Start: 08-27-2023 End: 11-26-2023 Lipid 1996 panel - Serum or Plasma [facility] Work Phone: Comment on above: Expected: 08/27/2023 , Expires: 11/26/2023 Start: 08-27-2023 End: 11-26-2023 Magnesium [Mass/volume] in Serum or Plasma [facility] Work Phone: Comment on above: Expected: 08/27/2023 , Expires: 11/26/2023 Start: 08-27-2023 End: 11-26-2023 Thyrotropin [Units/volume] in Serum or Plasma [facility] Work Phone: Comment on above: Expected: 08/27/2023 , Expires: 11/26/2023 Start: 07-24-2023 ANNUAL PCP TEAM MONITORING AND EVALUATION ADVISOR KOBY DISEASE VISIT ANNUAL PCP TEAM CHRONIC DISEASE VISIT [facility] Start: 07-24-2023 Hepatitis B screening URINE AL BUMIN:CREATININE RATIO [facility] Start: 07-24-2023 Hepatitis B surface antibody level LDL CHOLESTEROL [facility] Start: 07-04-2023 3 comp foot exam completed DIABETIC FOOT EXAM [facility] Start: 07-04-2023 Diabetic foot examination Diabetic Foot Exam [facility] Start: 06-25-2023 ANNUAL PCP TEAM MONITORING AND EVALUATION ADVISOR KOBY DISEASE VISIT ANNUAL PCP TEAM CHRONIC DISEASE VISIT [facility] Start: 06-21-2023 BP CONTROLLED (<130/80) BP CONTROLLE D (<130/80) [facility] Start: 05-27-2023 End: 08-26-2023 Urinalysis complete panel - Urine URINALYSIS, WITH MICROSCOPIC Lab Routine Type 2 diabetes mellitus with peripheral neuropathy (HCC) Expected: 05/27/2023, Expires: 08/26/2023 [facility] Work Phone: Comment on above: Expected: 05/27/2023 , Expires: 08/26/2023 Start: 05-22-2023 Hemoglobin A1c/Hemoglobin.total in Blood HBA1C [facility] Start: 05-21-2023 ANNUAL PCP TEAM MONITORING AND EVALUATION ADVISOR KOBY DISEASE VISIT ANNUAL PCP TEAM CHRONIC DISEASE VISIT [facility] Start: 04-27-2023 ANNUAL PCP TEAM MONITORING AND EVALUATION ADVISOR KOBY DISEASE VISIT ANNUAL PCP TEAM CHRONIC DISEASE VISIT [facility] Start: 04-25-2023 Hepatitis B surface antibody level LDL CHOLESTEROL [facility] Start: 03-22-2023 Covid-19 Vaccine () Covid-19 Vaccine () [facility] Start: 03-22-[address] [facility] Start: 03-06-2023 ANNUAL PCP TEAM MONITORING AND EVALUATION ADVISOR KOBY DISEASE VISIT ANNUAL PCP TEAM CHRONIC DISEASE VISIT [facility] Start: 02-07-2023 Hemoglobin A1c/Hemoglobin.total in Blood HBA1C [facility] Start: 12-30-2022 ANNUAL PCP TEAM MONITORING AND EVALUATION ADVISOR KOBY DISEASE VISIT ANNUAL PCP TEAM CHRONIC DISEASE VISIT [facility] Start: 12-30-2022 BP CONTROLLED (<130/80) BP CONTROLLE D (<130/80) [facility] Start: 12-20-2022 ANNUAL PCP TEAM MONITORING AND EVALUATION ADVISOR KOBY DISEASE VISIT ANNUAL PCP TEAM CHRONIC DISEASE VISIT [facility] Start: 12-20-2022 Hepatitis B surface antibody level LDL CHOLESTEROL [facility] Start: 11-14-2022 ANNUAL PCP TEAM MONITORING AND EVALUATION ADVISOR KOBY DISEASE VISIT ANNUAL PCP TEAM CHRONIC DISEASE VISIT [facility] Start: 10-22-2022 End: 12-22-2022 Hemoglobin A1c in Blood HGB A1C Lab Routine Uncontrolled type 2 diabetes mellitus with hyperglycemia (HCC) Expected: 10/22/2022, Expires: 12/22/2022 [facility] Work Phone: Comment on above: Expected: 10/22/2022 , Expires: 12/22/2022 Start: 10-22-2022 Hemoglobin A1c/Hemoglobin.total in Blood HBA1C [facility] Start: 10-13-2022 ANNUAL PCP TEAM MONITORING AND EVALUATION ADVISOR KOBY DISEASE VISIT ANNUAL PCP TEAM CHRONIC DISEASE VISIT [facility] Start: 10-09-2022 Adult depression screening assessment DEPRESSION SCREENING [facility] Start: 08-30-2022 Hepatitis C antibody , confirmatory test DILATED RETINAL EXAM [facility] Start: 08-22-2022 Mammography MAMMOGRAM [facility] Start: 08-14-2022 3 comp foot exam completed DIABETIC FOOT EXAM [facility] Start: 08-14-2022 BP CONTROLLED (<130/80) BP CONTROLLE D (<130/80) [facility] Start: 07-28-2022 End: 09-27-2022 25-hydroxyvitamin D3 [Mass/volume] in Serum or Plasma VITAMIN D 25 HYDROXY Lab Routine Vitamin D deficiency Expected: 07/28/2022, Expires: 09/27/2022 [facility] Work Phone: Comment on above: Expected: 07/28/2022 , Expires: 09/27/2022 Start: 07-28-2022 End: 09-27-2022 ALBUMIN/CREAT RATIO RND UR ALBUMIN/CREAT RATIO RND UR Lab Routine Uncontrolled type 2 diabetes mellitus with hyperglycemia (HCC) Expected: 07/28/2022, Expires: 09/27/2022 [facility] Work Phone: Comment on above: Expected: 07/28/2022 , Expires: 09/27/2022 Start: 07-28-2022 End: 09-27-2022 Cobalamin (Vitamin B12) [Mass/volume] in Serum or Plasma VITAMIN B12 BLOOD Lab Routine Vitamin B12 deficiency Expected: 07/28/2022, Expires: 09/27/2022 [facility] Work Phone: Comment on above: Expected: 07/28/2022 , Expires: 09/27/2022 Start: 07-28-2022 End: 09-27-2022 Comprehensive metabolic 2000 panel - Serum or Plasma COMP METABOLIC PANEL Lab Routine Uncontrolled type 2 diabetes mellitus with hyperglycemia (HCC) Expected: 07/28/2022, Expires: 09/27/2022 [facility] Work Phone: Comment on above: Expected: 07/28/2022 , Expires: 09/27/2022 Start: 07-28-2022 End: 09-27-2022 Hemoglobin A1c in Blood HGB A1C Lab Routine Uncontrolled type 2 diabetes mellitus with hyperglycemia (HCC) Expected: 07/28/2022, Expires: 09/27/2022 [facility] Work Phone: Comment on above: Expected: 07/28/2022 , Expires: 09/27/2022 Start: 07-28-2022 End: 09-27-2022 Lipid 1996 panel - Serum or Plasma LIPID PANEL BASIC Lab Routine Hyperlipidemia, mixed Expected: 07/28/2022, Expires: 09/27/2022 [facility] Work Phone: Comment on above: Expected: 07/28/2022 , Expires: 09/27/2022 Start: 07-26-2022 Hemoglobin A1c/Hemoglobin.total in Blood HBA1C [facility] Start: 07-24-2022 End: 09-23-2022 ALBUMIN/CREAT RATIO RND UR ALBUMIN/CREAT RATIO RND UR Lab Routine Type 2 diabetes mellitus with diabetic polyneuropathy, with long-term current use of insulin (HCC) Expected: 07/24/2022, Expires: 09/23/2022 [facility] Work Phone: Comment on above: Expected: 07/24/2022 , Expires: 09/23/2022 Start: 06-22-2022 SHINGRIX VACCINE (2 of 2) SHINGRIX VACCINE (2 of 2) [facility] Start: 05-09-2022 Hepatitis B screening URINE AL BUMIN:CREATININE RATIO [facility] Start: 05-09-2022 Hepatitis B surface antibody level LDL CHOLESTEROL [facility] Start: 04-23-2022 COVID-19 VACCINE (4 - Booster for Pfizer series) COVID-19 VACCINE (4 - Booster for Pfizer series) [facility] Start: 03-22-2022 Hemoglobin A1c/Hemoglobin.total in Blood HBA1C [facility] Start: 03-22-2022 Influenza vaccination INFLUENZA (#1) [facility] Start: 02-16-2022 COVID-19 VACCINE (4 - Booster for Pfizer series) COVID-19 VACCINE (4 - Booster for Pfizer series) [facility] Start: 02-16-2022 COVID-19 VACCINE (4 - Pfizer series) COVID-19 VACCINE (4 - Pfizer series) [facility] Start: 01-18-2022 End: 03-20-2022 CBC panel - Blood by Automated count CBC Lab Routine Hyperlipidemia, mixed Expected: 01/18/2022, Expires: 03/20/2022 [facility] Work Phone: Comment on above: Expected: 01/18/2022 , Expires: 03/20/2022 Start: 01-18-2022 End: 03-20-2022 Comprehensive metabolic 2000 panel - Serum or Plasma COMP METABOLIC PANEL Lab Routine Hyperlipidemia, mixed Expected: 01/18/2022, Expires: 03/20/2022 [facility] Work Phone: Comment on above: Expected: 01/18/2022 , Expires: 03/20/2022 Start: 01-18-2022 End: 03-20-2022 Hemoglobin A1c/Hemoglobin.total in Blood HGB A1C Lab Routine Uncontrolled type 2 diabetes mellitus with hyperglycemia (HCC) Expected: 01/18/2022, Expires: 03/20/2022 [facility] Work Phone: Comment on above: Expected: 01/18/2022 , Expires: 03/20/2022 Start: 01-18-2022 End: 03-20-2022 LIPID PANEL BASIC LIPID PANEL BASIC Lab Routine Hyperlipidemia, mixed Expected: 01/18/2022, Expires: 03/20/2022 [facility] Work Phone: Comment on above: Expected: 01/18/2022 , Expires: 03/20/2022 Start: 12-16-2021 COVID-19 VACCINE (3 - Booster for Pfizer series) COVID-19 VACCINE (3 - Booster for Pfizer series) [facility] Start: 11-12-2021 Hemoglobin A1c/Hemoglobin.total in Blood HBA1C [facility] Start: 10-18-2021 End: 12-18-2021 Fructosamine [Moles/volume] in Serum or Plasma FRUCTOSAMINE BLD Lab Routine Uncontrolled type 2 diabetes mellitus with hyperglycemia (HCC) Expected: 10/18/2021, Expires: 12/18/2021 [facility] Work Phone: Comment on above: Expected: 10/18/2021 , Expires: 12/18/2021 Start: 07-22-2021 DEPRESSION ASSESSMENT DEPRESSION ASS ESSMENT [facility] Start: 2014 SHINGRIX VACCINE (1 of 2) SHINGRIX VACCINE (1 of 2) [facility] Start: 01-26-2014 PNEUMOCOCCAL (2 - PCV) PNEUMOCOCCAL (2 - PCV) [facility] Start: 2009 COLOGUARD (FIT-DNA) COLOGUARD (FIT-D NA) [facility] Start: [address] COLONOGRAPHY [facility] Start: 2009 FECAL OCCULT BLOOD FECAL OCCULT BLOO D [facility] Start: 2009 Screening for malign ant neoplasm of colon [facility] Start: 2009 SIGMOIDOSCOPY SIGMOIDOSCOPY [facility] Start: 10-20-1983 HEPATITIS B (1 of 3 - Risk 3-dose series) HEPATITIS B (1 of 3 - Risk 3-dose series) [facility] Start: 10-20-1983 Hepatitis B Vaccine (1 of 3 - 19+ 3-dose series) Hepatitis B Vaccine (1 of 3 - 19+ 3-dose series) [facility] Start: 1982 Anxiety Screening Anxiety Screening [facility] Start: 1964 HEPATITIS B (1 of 3 - 3-dose series) HEPATITIS B (1 of 3 - 3-dose series) [facility] Start: 1964 Hepatitis B Vaccine (1 of 3 - 3-dose series) Hepatitis B Vaccine (1 of 3 - 3-dose series) [facility] Bacteria identified in Urine by Culture URINE CULTURE Microbiology Routine Acute right-sided low back pain without sciatica Ordered: 05/20/2022 [facility] Work Phone: Comment on above: Ordered: 05/20/2022 Bacteria identified in Urine by Culture URINE CULTURE Microbiology Routine Urinary frequency Ordered: 10/18/2022 [facility] Work Phone: Comment on above: Ordered: 10/18/2022 End: 05-29-2023 COLONOSCOPY DIAGNOSTIC COLONOSCOPY DIAGNOSTIC Endoscopy Routine Abdominal pain, unspecified abdominal location Change in bowel habits 1 Occurrences starting 05/29/2022 until 05/29/2023 [facility] Work Phone: Comment on above: 1 Occurrences starti ng 05/29/2022 until 05/29/2023 End: 06-20-2023 Ct abdomen & pelvis w/o contrast material CT ABD/PEL WO IVCON Radiology STAT Nausea Right flank pain RUQ pain Chronic RLQ pain Nausea and vomiting, unspecified vomiting type 1 Occurrences starting 05/21/2022 until 06/20/2023 [facility] Work Phone: Comment on above: 1 Occurrences starti ng 05/21/2022 until 06/20/2023 End: 01-29-2023 Ct lower extremity w/o contrast material CT FOOT WO IVCON LT Radiology STAT Ingrown left greater toenail Localized swelling of left foot Pain of left heel Injury of left heel, subsequent encounter Left foot pain 1 Occurrences starting 12/30/2021 until 01/29/2023 [facility] Work Phone: Comment on above: 1 Occurrences starti ng 12/30/2021 until 01/29/2023 End: 03-20-2024 Ct thorax w/o contrast material CT CHEST WO IVCON Radiology Routine SOB (shortness of breath) Wheezing Pulmonary nodule 1 Occurrences starting 02/19/2023 until 03/20/2024 [facility] Work Phone: Comment on above: 1 Occurrences starti ng 02/19/2023 until 03/20/2024 End: 11-07-2024 DBT Breast - bilateral screening CHANTELL SCREENING W CAROLYN Radiology Routine Encounter for screening mammogram for breast cancer 1 Occurrences starting 10/09/2023 until 11/07/2024 [facility] Work Phone: Comment on above: 1 Occurrences starti ng 10/09/2023 until 11/07/2024 ECG COMPLETE ECG COMPLETE ECG Routine Chest pain on breathing 02/22/2025 3:46 PM EDT [facility] Work Phone: End: 05-29-2023 EGD DIAGNOSTIC EGD DIAGNOSTIC Endoscopy Routine Abdominal pain, unspecified abdominal location Change in bowel habits 1 Occurrences starting 05/29/2022 until 05/29/2023 [facility] Work Phone: Comment on above: 1 Occurrences starti ng 05/29/2022 until 05/29/2023 End: 12-08-2023 Hepatobil syst imag inc gb w/pharma intervenj NM HEPATOBILIARY W EF AND/OR RX Radiology Routine Nausea Pain of upper abdomen Type 2 diabetes mellitus with peripheral neuropathy (HCC) RUQ pain Gastroesophageal reflux disease, unspecified whether esophagitis present Abdominal bloating 1 Occurrences starting 11/08/2022 until 12/08/2023 [facility] Work Phone: Comment on above: 1 Occurrences starti ng 11/08/2022 until 12/08/2023 End: 08-23-2023 CHANTELL SCREENING CHANTELL SCREENING Radiology Routine Encounter for screening mammogram for malignant neoplasm of breast 1 Occurrences starting 07/24/2022 until 08/23/2023 [facility] Work Phone: Comment on above: 1 Occurrences starti ng 07/24/2022 until 08/23/2023 End: 08-23-2023 CHANTELL SCREENING W CAROLYN CHANTELL SCREENING W CAROLYN Radiology Routine Encounter for screening mammogram for malignant neoplasm of breast 1 Occurrences starting 07/24/2022 until 08/23/2023 [facility] Work Phone: Comment on above: 1 Occurrences starti ng 07/24/2022 until 08/23/2023 Patient Education Coping with He art Failure Heart Attack Dc [facility] Work Phone: SARS-CoV-2 (COVID-19 ) RNA [Presence] in Respiratory specimen by JHONY with probe detection COVID NAAT, UPPER RESPIRATORY, ROUTINE Microbiology Routine Acute non-recurrent sinusitis, unspecified location Ordered: 04/05/2023 [facility] Work Phone: Comment on above: Ordered: 04/05/2023 Troponin T.cardiac [Mass/volume] in Serum or Plasma by High sensitivity method [facility] End: 11-26-2024 US Carotid arteries - bilateral US CAROTID ARTERIES [facility] Vascular Lab Routine Carotid atherosclerosis, bilateral 1 Occurrences starting 11/27/2023 until 11/26/2024 [facility] Comment on above: 1 Occurrences starti ng 11/27/2023 until 11/26/2024 End: 10-23-2025 XR Chest PA and Lateral XR CHEST 2V FRONTAL/LAT Radiology Routine Acute cough Rhonchi at both lung bases 1 Occurrences starting 09/23/2024 until 10/23/2025 [facility] Work Phone: Comment on above: 1 Occurrences starti ng 09/23/2024 until 10/23/2025 XR FOOT GENERAL 3V AP/LAT/OBL LEFT XR FOOT GENERAL 3V AP/LAT/OBL LEFT Radiology Routine Ingrown left greater toenail Localized swelling of left foot Pain of left heel Injury of left heel, subsequent encounter Left foot pain 12/30/2021 10:31 AM EDT [facility] Work Phone: XR Hand - right PA a nd Lateral and Oblique XR HAND GENERAL 3V PA/LAT/OBL RIGHT Radiology Routine Right hand pain Localized swelling of finger of right hand 06/23/2024 4:01 PM EST [facility] Work Phone: [facility] Immunizations Immunization Date Immunization Notes Care Provider Fa [facility] 12-30-2024 tetanus toxoid, redu ritu diphtheria toxoid, and acellular pertussis vaccine, adsorbed Jese Zheng DO Work Phone: [facility] 06-23-2024 COVID-19 vaccine, ag e 12+ yr (PFIZER-BIONTECH COMIRNAT) Xr Dilley Work Phone: [facility] 06-23-2024 influenza, seasonal, injectable Xr Dilley Work Phone: [facility] 06-23-2024 influenza virus vaccine, unspecified formulation Susana Garcia [facility] Work Phone: [facility] 05-27-2023 COVID-19 vaccine, ag e 12+ yr, season (PFIZER-BIONTECH) Jese Zheng DO Work Phone: [facility] Work Phone: 05-27-2023 influenza, injectabl e, quadrivalent, contains preservative Jese Zheng DO Work Phone: [facility] Work Phone: 05-27-2023 influenza virus vaccine, unspecified formulation Corrine Louise APRN.[employer] Work Phone: [facility] 07-24-2022 pneumococcal (PCV20) vaccine, 20 valent (PREVNAR 20) Jese Zheng DO Work Phone: [facility] Work Phone: 07-24-2022 zoster vaccine recombinant Jese Zheng DO Work Phone: [facility] Work Phone: 07-24-2022 pneumococcal Conjuga te, unspecified formulation Jese Zheng DO Work Phone: [facility] Work Phone: 04-27-2022 influenza, injectabl e, quadrivalent, contains preservative Jese Zheng DO Work Phone: [facility] 04-27-2022 zoster vaccine recombinant Jese Zheng DO Work Phone: [facility] 04-27-2022 influenza virus vaccine, unspecified formulation Corrine Dani SONINJordana[employer] SET UP Work Phone: [facility] 05-08-2021 influenza, injectabl e, quadrivalent, contains preservative Jese Zheng DO Work Phone: [facility] 08-05-2020 influenza, injectabl e, quadrivalent, contains preservative Jese Zheng DO Work Phone: [facility] Work Phone: 04-10-2019 influenza, injectabl e, quadrivalent, contains preservative Jese Zheng DO Work Phone: [facility] Work Phone: 05-13-2018 influenza, injectabl e, quadrivalent, contains preservative Jese Zheng DO Work Phone: [facility] 05-01-2017 influenza, injectabl e, quadrivalent, contains preservative Jese Zheng DO Work Phone: [facility] 04-23-2016 Influenza virus vaccine [facility] 04-23-2016 influenza, seasonal, injectable, preservative free Jese Zheng DO Work Phone: [facility] 04-16-2016 influenza, injectabl e, quadrivalent, contains preservative Jese Zheng DO Work Phone: [facility] Work Phone: 06-29-2015 influenza, injectabl e, quadrivalent, contains preservative Jese Zheng DO Work Phone: [facility] Work Phone: 06-29-2015 influenza, seasonal, injectable Jese Zheng DO Work Phone: [facility] 05-12-2014 influenza, seasonal, injectable Jese Zheng DO Work Phone: [facility] Work Phone: 04-21-2014 Influenza virus vaccine [facility] 04-21-2014 influenza, seasonal, injectable, preservative free Jese Zheng DO Work Phone: [facility] 01-28-2014 tetanus toxoid, redu ritu diphtheria toxoid, and acellular pertussis vaccine, adsorbed Jese Zheng DO Work Phone: [facility] 05-08-2013 influenza virus vaccine, unspecified formulation Jese Zheng DO Work Phone: [facility] Work Phone: 01-26-2013 pneumococcal polysaccharide vaccine, 23 valent Jese Zheng DO Work Phone: [facility] 09-19-2012 Influenza virus vaccine [facility] 09-19-2012 influenza, seasonal, injectable, preservative free Jese Zheng DO Work Phone: [facility] 08-22-2012 tetanus toxoid, redu ritu diphtheria toxoid, and acellular pertussis vaccine, adsorbed Jese Zheng DO Work Phone: [facility] Work Phone: 07-07-2012 influenza virus vaccine, unspecified formulation Jese Zheng DO Work Phone: [facility] Work Phone: 06-02-2009 novel [id number], all formulations Jese Zheng DO Work Phone: [facility] 11-20-1999 tetanus and diphther ia toxoids, not adsorbed, for adult use Jese Zheng DO Work Phone: [facility] Payers Date Payer Category Payer Self-pay [id number] 2024 Private Health Insurance [id number] 2024 Unknown [id number] 2023 Unknown [id number] 2023 Unknown [id number] 2023 Unknown [id number] 2022 Medicaid [id number] 2017 Medicaid [id number] 2015 Unknown [id number] 2014 Medicaid [employer] [facility] [id number] 2014-Present [phone] [address] [place] [address] Medicaid [id number] Unknown [id number] Unknown [id number] Unknown [id number] Unknown [id number] Unknown [id number] Unknown [id number] Unknown [id number] Social History Date Type Detail Facility Start: 05-29-2013 End: 12-30-2024 Tobacco smoking status NHIS Ex-smoker [facility] Work Phone: Start: 05-13-1989 End: 05-13-2013 History of tobacco use [facility] [facility] Work Phone: Start: 05-13-1989 End: 05-13-2013 History of tobacco use Cigarette Smoker [facility] Work Phone: Start: 05-29-2013 End: 11-22-2022 Cigarettes smoked current (pack per day) - Reported 0.5 [facility] Start: 05-29-2013 End: 12-30-2024 Tobacco use and exposure Smokeless tobacco non-user [facility] Work Phone: Start: 10-13-2021 End: 12-30-2024 Alcohol intake Current non-drinker of alcohol (finding) [facility] Start: 05-04-2021 End: 04-27-2022 History SDOH Alcohol Frequency 1 [facility] Start: 05-04-2021 History SDOH Alcohol Std Drinks 98 [facility] Start: 05-04-2021 End: 06-25-2022 History SDOH Social Connections Phone 5 [facility] Start: 05-04-2021 End: 06-25-2022 History SDOH Social Connections Get Together 2 [facility] Start: 05-04-2021 End: 06-25-2022 History SDOH Social Connections Living 7 [facility] Start: 10-02-2019 Education 12 [facility] Start: 1965 Sex Assigned At Female [facility] Start: 11-01-2020 End: 06-24-2022 Exposure to SARS-CoV-2 (event) Not sure [facility] Work Phone: Start: 04-06-2022 End: 04-16-2022 Exposure to SARS-CoV-2 (event) Unable to assess [facility] Start: 06-25-2022 History SDOH Alcohol Std Drinks 0 [facility] Start: 04-06-2021 Tobacco smoking status AKIS Unknown if ever smoked [facility] Start: 04-07-2017 None [facility] Start: 01-22-2019 With Family [facility] Start: 04-10-2017 Non-smoker [facility] Start: 06-25-2022 End: 11-22-2022 Social connection and isolation panel [facility] Do you belong to any clubs or organizations such as jew groups, unions, fraternal or athletic groups, or school groups? No [facility] Are you now , , , , never or living with a partner? Never [facility] How often to you hav e a drink containing alcohol? Never [facility] How many standard dr inks containing alcohol do you have on a typical day? Patient does not drink [facility] (I/We) worried wheth er (my/our) food would run out before (I/we) got money to buy more. Never true [facility] Start: 04-18-2021 Gender identity Identifies as female gender (finding) [facility] Start: 04-18-2021 Sexual orientation Heterosexual (finding) [facility] Do you feel stress - tense, restless, nervous, or anxious, or unable to sleep at night because your mind is troubled all the time - these days [OSQ] Only a little [facility] Do you feel stress - tense, restless, nervous, or anxious, or unable to sleep at night because your mind is troubled all the time - these days [OSQ] Not at all [facility] Start: 02-22-2025 Tobacco smoking status [facility] Never smoked tobacco (finding) [facility] Start: 02-22-2025 Tobacco smoking status AKIS Current some day smoker [facility] Medical Equipment Procedure Code Equipment Code Equipment Origin al Text Equipment Identifier Dates Mesh [place] Poly[employer] [id number] Surgical Soft Lightweight Low - [id number] Start: 05-27-2017 [id number], [id number], [id number], [id number], [id number], [id number] Start: 09-06-2016 End: 05-09-2023 Comment on above: [...] Assessment Result Facility 02-25-2025 Functional status [facility] Work Phone: 02-24-2025 Functional status Assistive Devices None [facility] Work Phone: 05-31-2017 Are you deaf, or do you have serious difficulty hearing No 05/31/2017 10:00 AM Jaycee Rascon RN No [facility] 05-31-2017 Are you blind, or do you have serious difficulty seeing, even when wearing glasses No 05/31/2017 10:00 AM Jaycee Rascon, ABRAHAM No [facility] 05-31-2017 Do you have serious difficulty walking or climbing stairs No 05/31/2017 10:00 AM Jaycee Rascon RN No [facility] 05-31-2017 Do you have difficul ty dressing or bathing No 05/31/2017 10:00 AM Jaycee Rascon RN No [facility] 05-31-2017 Because of a physica l, mental, or emotional condition, do you have difficulty doing errands alone such as visiting a physician's office or shopping No 05/31/2017 10:00 AM Jaycee Rascon RN No [facility] Mental Status Date Assessment Result Facility 02-25-2025 Cognitive function Voice/Name [facility] Work Phone: 02-22-2025 Cognitive function Voice/Name [facility] Work Phone: 05-31-2017 Because of a physica l, mental, or emotional condition, do you have serious difficulty concentrating, remembering, or making decisions Yes 05/31/2017 10:00 AM Jaycee Rascon RN Yes [facility] Clinical Notes 10-12-2014 to 02-25-2025 Note Date & Type Note Facility 02-25-2025 Discharge summary [facility] 02-25-2025 Note [facility] Medical Records Department [address] [place] [address] Discharge Summary 02/25/25 1434 MR#: [id number] Acct: [id number] Name: LINA ISAAC Rep #: [id number] : 1965 59 From: Clarissa Herrera MD PCP: Dr. Jese Zheng DO Status:DIS IN Location: [place] [address] Providers Date of Admission: 02/22/25 Date of [...] managed for n (more content not included)... [facility] 02-24-2025 Progress note Note Date/Time February 24, 2025 5:06pm [facility] Medical Records Department [address] [place] [address] Progress Note 02/24/25 1155 MR#: [id number] Acct: [id number] Name: LINA ISAAC Rep #:[id number] : 1965 59 From: Clarissa Herrera MD PCP: Dr. Jese Zheng, DO Status:AD M IN Location: [place] [address] Subjective Subjective Patient seen and examined. She [...] (Auto) 39.4 L, Lymph % (Auto) 45.8 H,Ringgold % (Auto) 12.0 H, Eos % (Auto) [...] mainly L5-S1. No acute findings. Reading Location: [place] [address] Rhythm Strip Rhythm Strip: Sinus Tach Rate: [...] to U Charges/Coding Visit Charges Inpatient E&M: 46099 Subs Hosp L2 02/24/25 1706 <Electronically signed by Clarissa Herrera MD> Clarissa Herrera MD Cosigner Signature (if applicable): CC: ~ Signed [facility] Work Phone: 1(183) 942-962008-06-2025 Progress note [facility] Medical Records Department [address] [place] [address] Progress Note 02/24/25 1155 MR#: [id number] Acct: [id number] Name: LINA ISAAC Rep #:[id number] : 1965 59 From: Clarissa Herrera MD PCP: Dr. Jese Zheng, DO Status:AD M IN Location: [place] [address] Subjective Subjective Patient seen and examined. She [...] (Auto) 39.4 L, Lymph % (Auto) 45.8 H,Ringgold % (Auto) 12.0 H, Eos % (Auto) [...] mainly L5-S1. No acute findings. Reading Location: [place] [address] Rhythm Strip Rhythm Strip: Sinus Tach Rate: [...] to PCU Charges/Coding Visit Charges Inpatient E&M: 90608 Subs Hosp L2 02/24/25 1706 Clarissa Herrera MD Cosigner Signature (if applicable): CC: ~ Signed [facility]08-06-2025 Progress note Author Elver Montero [facility] Note Date/Time February 24, 2025 7:4 5am [facility] Medical Records Department [address] [place] [address] Progress Note - Cardiology 02/24/25 0741 MR#: [id number] Acct: [id number] Name: LINA ISAAC Rep #:[id number] : 1965 59 From: Elver Montero MD [...] (Auto) 39.4 L, Lymph % (Auto) 45.8 H,Ringgold % (Auto) 12.0 H, Eos % (Auto) [...] 39.4 L, Lymph % (Auto) 45.8 H, Ring[place] % (Auto) 12.0 H, Eos % (Auto) [...] CHRONIC CHANGES. NO ACUTE FINDINGS. Reading Location: [id number] Abdomen/Pelvis CT 02/23/25 10:10 IMPRESSION: No evidence of the ureteral obstruction. Reading Location: [id number] Lumbar Spine CT 02/23/25 18:36 IMPRESSION: Lumbar spine scoliosis and degeneration. Lumbar spine degeneration mainly L5-S1. No acute findings. Reading Location: [place] [address] Physical Exam Const alert, oriented x3 and [...] and perhaps discharge homefor outpatient follow-up. 02/24/25 4665 <Electronically signed by Elver Montero MD> Cosigner Signature (if applicable): CC: ~ Signed [facility] Work Phone: 1(834) 267-188708-06-2025 Progress note [facility] Medical Records Department [address] [place] [address] Progress Note - Cardiology 02/24/25 07 MR#: [id number] Acct: [id number] Name: LINA ISAAC Rep #:[id number] : 1965 59 From: Elver Montero MD [...] (Auto) 39.4 L, Lymph % (Auto) 45.8 H,Ringgold % (Auto) 12.0 H, Eos % (Auto) [...] 39.4 L, Lymph % (Auto) 45.8 H, [place] % (Auto) 12.0 H, Eos % (Auto) 1.9, Baso % (Auto) 0.6, Absolute Neuts (auto) 2.7, Nucleated RBC % 0, [id number], Potassium 3.6, Chloride 106, Carbon Dioxide 24.9, [...] CHRONIC CHANGES. NO ACUTE FINDINGS. Reading Location: [facility] Abdomen/Pelvis CT 02/23/25 10:10 IMPRESSION: No evidence of the ureteral obstruction. Reading Location: [facility] Lumbar Spine CT 02/23/25 18:36 IMPRESSION: Lumbar spine scoliosis and degeneration. Lumbar spine degeneration mainly L5-S1. No acute findings. Reading Location: [place] [address] Physical Exam Const alert, oriented x3 and [...] Cosigner Signature (if applicable): CC: ~ Signed [facility]08-05-2025 Radiology Diagnostic study note [facility] Imaging Services [address] [place] [address] Spine Lumbar WITH Contrast MR#: [id number] Acct: [id number] Name: LINA ISAAC Rep #: [id number] : 1965 F 59 From: Emma Benitez MD PCP: Dr. Jese Zheng, DO Status: AD M IN Study:Spine Lumbar WITH Contrast Date of Exam : 02/23/25 Exam# [id number] Ordering Dr: Krys Mace DO PROCEDURE: SPINE [...] mainly L5-S1. No acute findings. Reading Location: [place] [address] CC: Dr. Jese Zheng DO; Dr. Faye Mace DO ~ Printing Specialist: Signed [facility]08-05-2025 Progress note Author Faye Mace [facility] Note Date/Time February 23, 2025 7:2 3pm [facility] Medical Records Department [address] [place] [address] Progress Note - Hospitalist 02/23/25 0743 MR#: [id number] Acct: [id number] Name: LINA ISAAC Rep #:[id number] : 1965 59 From: Faye Mace DO PCP: Dr. Jese Zheng DO Status:AD M IN Location: ICU ICU05-1 Reason for Visit Chief Complaint: Chest pain Subjective Subjective I saw the patient after she returned from the cardiac [employer]. She is awake and alert and oriented [...] % (Auto) 48.8, Lymph % (Auto) 37.3, Ringgold % (Auto) 11.0 H, Eos % (Auto) [...] % (Auto) 52.6, Lymph % (Auto) 32.5, [place] % (Auto) 12.7 H, Eos % (Auto) [...] in the appropriate clinical context. Reading Location: [facility] Rhythm Strip Rhythm Strip: Sinus Tach Rate: 110 Ectopy: None Physical Exam Const alert, oriented x3 and well nourished; Negative for no apparent distress or average body habitus Constitutional Narrative: Obese, upper middle-aged, -English female, lying in bed right side- lying, [...] Inpatient E&M: 93294 Subs Hosp L3 02/23/251922 <Electronically signed by Faye Mace DO> Cosigner Signature (if applicable): CC: ~ Signed [facility] Work Phone: 1(177) 466-183808-05-2025 Progress note [facility] Medical Records Department [address] [place] [address] Progress Note - Hospitalist 02/23/25 0743 MR#: [id number] Acct: [id number] Name: LINA ISAAC Rep #:[id number] : 1965 59 From: Faye Mace DO PCP: Dr. Jese Zheng, Status:AD M IN Location: ICU ICU05-1 Reason for Visit Chief Complaint: Chest pain Subjective Subjective I saw the patient after she returned from the cardiac [employer]. She is awake and alert and orientedto [...] % (Auto) 48.8, Lymph % (Auto) 37.3, Ringgold % (Auto) 11.0 H, Eos % (Auto) [...] % (Auto) 52.6, Lymph % (Auto) 32.5, Ring[place] % (Auto) 12.7 H, Eos % (Auto) [...] in the appropriate clinical context. Reading Location: [facility] Rhythm Strip Rhythm Strip: Sinus Tach Rate: 110 Ectopy: None Physical Exam Const alert, oriented x3 and well nourished; Negative for no apparent distress or average body habitus Constitutional Narrative: Obese, upper middle-aged, -English female, lying in bed right side- lying, [...] Full code Charges/Coding Visit Charges Inpatient E&M: 22729 Subs Hosp L3 02/23/251922 Cosigner Signature (if applicable): CC: ~ Signed [facility]08-05-2025 Radiology Diagnostic study note [facility] Imaging Services [address] [place], [place] [address] Abdomen/Pelvis without Cont MR#: [id number] Acct: [id number] Name: LINA ISAAC Rep #: [id number] : 1965 F 59 From: Cisco Gilman MD PCP: Dr. Jese Zheng, DO Status: AD M IN Study:Abdomen/Pelvis without Cont Date of Exa m: 02/23/25 Exam# [id number] Ordering Dr: Krys Mace DO PROCEDURE: ABDOMEN/PELVIS [...] evidence of the ureteral obstruction. Reading Location: [id number] CC: Dr. Jese Zheng DO; Dr. Faye Mace DO ~ Printing Specialist: Signed [facility]08-05-2025 Radiology Diagnostic study note [facility] Imaging Services [address] [place] [address] [id number] Brain/Head without Contrast MR#: [id number] Acct: [id number] Name: LINA ISAAC Rep #: [id number] : 1965 F 59 From: Cisco Gilman MD PCP: Dr. Jese Zheng DO Status: AD M IN Study:Brain/Head without Contrast Date of Exa m: 02/23/25 Exam# [id number] Ordering Dr: Krys Mace DO PROCEDURE: BRAIN/HEAD [...] CHRONIC CHANGES. NO ACUTE FINDINGS. Reading Location: [id number] CC: Dr. Jese Zheng DO; Dr. Faye Mace DO ~ Printing Specialist: Signed [facility]08-05-2025 Progress note Author Elver Montero [facility] Note Date/Time February 23, 2025 9:0 2am [facility] Medical Records Department [address] [place] [address] Progress Note - Cardiology 02/23/25 0900 MR#: [id number] Acct: [id number] Name: LINA ISAAC Rep #:[id number] : 1965 59 From: Elver Montero MD PCP: Dr. Jese Zheng DO Status:AD M IN Location: [place] [address] Subjective Subjective Patient seen in [employer]. Patient said that she could not lie [...] % (Auto) 48.8, Lymph % (Auto) 37.3, Ringgold % (Auto) 11.0 H, Eos % (Auto) [...] % (Auto) 52.6, Lymph % (Auto) 32.5, Ringgold % (Auto) 12.7 H, Eos % (Auto) [...] Neut % (Auto) 48.8,Lymph % (Auto) 37.3, Ringgold % (Auto) 11.0 H, Eos % (Auto) [...] % (Auto) 52.6, Lymph % (Auto) 32.5, Ringgold % (Auto) 12.7 H, Eos % (Auto) [...] in the appropriate clinical context. Reading Location: [facility] Physical Exam Const no apparent distress [...] Cosigner Signature (if applicable): CC: ~ Signed [facility] Work Phone: 1(890) 238-986108-05-2025 Consult note Author Elver Montero [facility] Note Date/Time February 23, 2025 8:0 5am [facility] Medical Records Department [address] [place] [address] Consultation - Cardiology 02/23/25 0759 MR#: [id number] Acct: [id number] Name: LINA ISAAC Rep #:[id number] : 1965 59 From: Elver Montero MD PCP: Dr. Jese Zheng, DO Status:AD M IN Location: [place] [address] Assessment & Plan Assessment/Plan (1) Chest pain: [...] % (Auto) 48.8, Lymph % (Auto) 37.3, Ringgold % (Auto) 11.0 H, Eos % (Auto) [...] % (Auto) 52.6, Lymph % (Auto) 32.5, Ring[place] % (Auto) 12.7 H, Eos % (Auto) [...] Neut % (Auto) 48.8,Lymph % (Auto) 37.3, Ringgold % (Auto) 11.0 H, Eos % (Auto) [...] % (Auto) 52.6, Lymph % (Auto) 32.5, Ringgold % (Auto) 12.7 H, Eos % (Auto) [...] in the appropriate clinical context. Reading Location: [id number] 02/23/25804 <Electronically signed by Elver Montero MD> Cosigner Signature (if applicable): CC: Dr. Jese Zheng, DO~ Signed [facility] Work Phone: 1(484) 386-962408-05-2025 Progress note [facility] Medical Records Department [address] [place] [address] Progress Note - Cardiology 02/23/25 0900 MR#: [id number] Acct: [id number] Name: LINA ISAAC Bean Rep #:[id number] : 1965 59 From: Elver Montero MD PCP: Dr. Jese Zheng, Status:AD M IN Location: [place] [address] Subjective Subjective Patient seen in [employer]. Patient said that she could not lie [...] % (Auto) 48.8, Lymph % (Auto) 37.3, Ringgold % (Auto) 11.0 H, Eos % (Auto) [...] % (Auto) 52.6, Lymph % (Auto) 32.5, Ringgold % (Auto) 12.7 H, Eos % (Auto) [...] Neut % (Auto) 48.8,Lymph % (Auto) 37.3, Ringgold % (Auto) 11.0H, Eos % (Auto) 1.7, [...] MCV 89.1, MCH 30.6, MCHC 34.3, Plt Segxd349, MPV 10.2, Immature Gran % (Auto) 0.200, Neut % (Auto) 52.6, Lymph % (Auto) 32.5, Ringgold % (Auto)12.7 H, Eos % (Auto) 1.3, [...] in the appropriate clinical context. Reading Location: [facility] Physical Exam Const no apparent distress [...] Cosigner Signature (if applicable): CC: ~ Signed [facility]08-05-2025 Consult note [facility] Medical Records Department [address] [place] [address] Consultation - Cardiology 02/23/25 0759 MR#: [id number] Acct: [id number] Name: LINA ISAAC Rep #:[id number] : 1965 59 From: Elver Montero MD PCP: Dr. Jese Zheng, DO Status:AD M IN Location: [place] [address] Assessment & Plan Assessment/Plan (1) Chest pain: [...] history of hypertension or hyperlipidemia. [facility] Medical History Dyslipidemia Trigger ring [...] % (Auto) 48.8, Lymph % (Auto) 37.3, Ringgold % (Auto) 11.0 H, Eos % (Auto) [...] % (Auto) 52.6, Lymph % (Auto) 32.5, Ringgold % (Auto) 12.7 H, Eos % (Auto) [...] Neut % (Auto) 48.8,Lymph % (Auto) 37.3, Ring[place] % (Auto) 11.0H, Eos % (Auto) 1.7, [...] MCV 89.1, MCH 30.6, MCHC 34.3, Plt [id number], MPV 10.2, Immature Gran % (Auto) 0.200, Neut % (Auto) 52.6, Lymph % (Auto) 32.5, Ringgold % (Auto)12.7 H, Eos % (Auto) 1.3, [...] in the appropriate clinical context. Reading Location: [facility] 02/23/25 0805 Cosigner Signature (if applicable): CC: Dr. Jese Zheng, DO~ Signed [facility]08-04-2025 Evaluation note* Diagnosis Onset Date [...] HTN (hypertension) chronic February 22, 2025 8:21pm [facility] Work Phone: 1(316) 550-201908-04-2025 History and physical note Author Denton Cook [facility] Note Date/Time February 22, 2025 8:2 1pm [facility] Medical Records Department [address] [place] [address] History & Physical Exam 02/22/252008 MR#: [id number] Acct: [id number] Name: LINA ISAAC Rep #:[id number] : 1965 59 From: Denton Cook MD [...] will be ordered as well. [facility] Medical History (Updated 02/22/25 @ [...] % (Auto) 48.8, Lymph % (Auto) 37.3, Ringgold % (Auto) 11.0 H, Eos % (Auto) [...] in the appropriate clinical context. Reading Location: [facility] Assessment & Plan Assessment/Plan (1) Chest [...] hold albuterol at this time 2. NSTEMI?consult house visitor Dr Montero. Continue to cycle cardiac enzymes, will add oxygen, nitroglycerin as needed for pain and aspirin. Pain seems to berelatively controlled at this time. Will make patient n.p.o. at midnight 3. Congestive heart failure?will get echocardiogram 4. Diabetes?will add sliding scale insulin and will adjust accordingly 5. Smoking?cessation strongly encouraged 6. DVT prophylaxis?low molecular weight heparin Charges/Coding Visit Charges Inpatient E&M: 30388 Init Hosp L2 02/22/252020 <Electronically signed by Denton Cook MD> Cosigner Signature (if applicable): CC: Dr. Jese Zheng, DO; Dr. Denton Cook MD~ Signed [facility] Work Phone: 1(283) 329-820808-04-2025 Discharge summary Author John Catherine [facility] Note Date/Time February 22, 2025 8:0 9pm [facility] Medical Records Department [address] [place] [address] Emergency Department Summary 02/22/25 MR#: [id number] Acct: [id number] Name: LINA ISAAC Rep #:[id number] : 1965 59 From: John Catherine MD PCP: Dr. Jese Zheng, DO Status:RE G ER Location: ED HPI History of Present Illness Chief Complaint: Chest Pain Informant: patient and EMS Narrative Narrative: 59-year-old female was sent from the PCPs office at [facility] due to the patient having intermittent [...] thought I was having a heart attack. [facility] Medical History (Updated 02/22/25 @ 20:09 [...] % (Auto) 48.8 Lymph % (Auto) 37.3 Ringgold % (Auto) 11.0 H Eos % (Auto) [...] in the appropriate clinical context. Reading Location: [facility] Rhythm Strip Rhythm Strip: Sinus Tach [...] DO [Primary Care Provider] - Print Language: Gabonese Disposition Disposition: Acute Care Hospital [facility] What to do if you have Problems For any increased pain, shortness of breath, bleeding, nausea or vomiting, chestpain, or any unexpected problems, contact your Primary Care Provider. Call [facility] ([phone]) or report to the closest Emergency Room. Call 911 if necessary. 02/22/252008 <Electronically signed by John Catherine MD> Cosigner Signature (if applicable): CC: Dr. Jese Zheng DO ~ Signed [facility] Work Phone: 1(817) 948-986008-04-2025 History and physical note [facility] Medical Records Department [address] [place] [address] History & Physical Exam 02/22/252008 MR#: [id number] Acct: [id number] Name: LINA ISAAC Rep #:[id number] : 1965 59 From: Denton Cook MD [...] will be ordered as well. [facility] Medical History (Updated 02/22/25 @ [...] % (Auto) 48.8, Lymph % (Auto) 37.3, [place] % (Auto) 11.0 H, Eos % (Auto) [...] in the appropriate clinical context. Reading Location: [facility] Assessment & Plan Assessment/Plan (1) Chest [...] hold albuterol at this time 2. NSTEMI?consult house visitor Dr Montero. Continue to cycle cardiac enzymes, will add oxygen, nitroglycerin as needed for pain and aspirin. Pain seems to berelatively controlled at this time. Will make patient n.p.o. at midnight 3. Congestive heart failure?will get echocardiogram 4. Diabetes?will add sliding scale insulin and will adjust accordingly 5. Smoking?cessation strongly encouraged 6. DVT prophylaxis?low molecular weight heparin Charges/Coding Visit Charges Inpatient E&M: 80484 Init Hosp L2 02/22/252020 Cosigner Signature (if applicable): CC: Dr. Jese Zheng DO; Dr. Denton Cook MD~ Signed [facility]08-04-2025 Discharge summary [facility] Medical Records Department [address] [place] [address] Emergency Department Summary 02/22/25 MR#: [id number] Acct: [id number] Name: LINA ISAAC Rep #:[id number] : 1965 59 From: John Catherine MD PCP: Dr. Jese Zheng, DO Status:RE G ER Location: ED HPI History of Present Illness Chief Complaint: Chest Pain Informant: patient and EMS Narrative Narrative: 59-year-old female was sent from the PCPs office at [facility] due to the patient having intermittent [...] thought I was having a heart attack. [facility] Medical History (Updated 02/22/25 @ 20:09 [...] % (Auto) 48.8 Lymph % (Auto) 37.3 [place] % (Auto) 11.0 H Eos % (Auto) [...] in the appropriate clinical context. Reading Location: [facility] Rhythm Strip Rhythm Strip: Sinus Tach [...] DO [Primary Care Provider] - Print Language: Gabonese Disposition Disposition: Acute Care Hospital [facility] What to do if you have Problems For any increased pain, shortness of breath, bleeding, nausea or vomiting, chestpain, or any unexpected problems, contact your Primary Care Provider. Call [facility] ([phone]) or report tothe closest Emergency Room. Call 911 if necessary. 02/22/252008 Cosigner Signature (if applicable): CC: Dr. Jese Zheng DO ~ Signed [facility]08-04-2025 [facility] Medical Records Department [address] [place] [id number] History Physical Exam 02/22/252008 MR#: [id number] Acct: [id number] Name: LINA ISAAC Rep #: [id number] : 1965 59 From: Denton Cook MD [...] will be ordered as well. [facility] Medical History (Updated 02/22/25 @ [...] breath or wheezi (more content not included)... [facility]08-04-2025 Radiology Diagnostic study note [facility] Imaging Services [address], [place] [id number] Chest PA and Lateral MR#: [id number] Acct: [id number] Name: LINA ISAAC Rep #: [id number] : 1965 F 59 From: Jd Marinelli MD PCP: Dr. Jese Zheng, Status: RE G ER Study:Chest PA and Lateral Date of Exam: 02/22/25 Exam# [id number] Ordering Dr: Jacki Catherine MD PROCEDURE: CHEST [...] in the appropriate clinical context. Reading Location: LSS-LBPHAXI-DR CC: Dr. John Catherine MD; Dr. Jese Zheng, DO ~ Printing Specialist: Signed [facility]08-04-2025 NoteHNO ID: [id number] Author: SELIN GARCIA APRN.PRESS SET UP Service: ? Author Type: Computer Technology Trainer Type: Progress Notes Filed: 02/22/2025 17:21 Note Text: [facility] Emergency Response Form. NOT TO BE USED AT [facility] Complete this report when the Emergency Medical Response is activated (911 calls/EmergencyTransport to the ED) or when a Code Sheet is utilized in the care of a patient (i.e., ASC) Date of the Event: today (Must provide Value) Time of the Event:3:57 pm (Must provide Value) Was emergency response activated? (Local EMS/Emergency Department) YES (Must provide Value) Location of the Incident: [facility] ([facility]) (Must provide Value) Reason/Chief Complaint [...] none Patient Disposition: Transferred to Hospital ED: [facility] (Must provide value) Barrel Turner information: Name of Provider- Juany Allen (Must provide value)[facility]08-04-2025 History of Present illness Narrative* Juany Allen MA - 02/22/2025 5:01 PM EDT [facility] Emergency Response Form. NOT TO BE USED AT [facility] Complete this report when the Emergency Medical Response is activated (911 calls/EmergencyTransportto the ED) or when a Code Sheet is utilized in the care of a patient (i.e., ASC) Date of the Event: today (Must provide Value) Time of the Event:3:57 pm (Must provide Value) Was emergency response activated? (Local EMS/Emergency Department) YES (Must provide Value) Location of the Incident: [facility] ([facility]) (Must provide Value) Reason/Chief Complaint [...] none Patient Disposition: Transferred to Hospital ED: [facility] (Must provide value) Barrel Turner information: Name of Provider- Juany Allen (Must [...] Blood-Glucose Sensor (FREESTYLE MICHI 3 PLUS SENSOR) ingird Use to monitor glucose continuously and replace sensor every 15 days metFORMIN (GLUCOPHAGE) 1,000 mg tablet Take 1 tablet by mouth two times a day. cyanocobalamin (VITAMIN B-12) 1,000 mcg tab Take 2 tablets by mouth once daily. Calcium Citrate-Vitamin D3 (CITRACAL+D) 315 mg-6.25 mcg (250 unit) tab Take 1 tablet by mouth once daily. Oral Medication Containers (SHARPS CONTAINER) [facility] Use to collect sharps as directed. flash glucose scanning reader (FREESTYLE MICHI 3 READER) Use to monitor blood glucose continuously Insulin Poteet, Disposable, (UNIFINE PENTIPS) 31 gauge x 3/16 [...] (BAQSIMI) 3 mg/actuation nasal spray Use 1 [place] in the nose as needed for low [...] 786.52, ICD10: R07.1 (primary diagnosis) Send to [facility] ER now - ECG COMPLETE - Send [...] improvement. Selin Garcia APRN.CNP documented in this encounterUniversity Hospitals [facility]08-04-2025 Instructions* Patient Instructions* Selin Garcia APRN.CNP - 02/22/2025 3:55 PM EDT Defer to ER- report called documented in this encounterUniversity Hospitals Samaritan Medical Center08-04-2025 NoteHNO ID: [id number] Author: SELIN GARCIA APRN.CNP Service: ? Author [...] times a day. cyanocobal (more content not included)...[facility]08-04-2025 Discharge summary Author John Catherine [facility] Note Date/Time February 22, 2025 8:0 9pm [facility] Medical Records Department [address] [place] [address] Emergency Department Summary 02/22/25 MR#: [id number] Acct: [id number] Name: LINA ISAAC Rep #:[id number] : 1965 59 From: John Catherine MD PCP: Dr. Jese Zheng, DO Status:RE G ER Location: ED HPI History of Present Illness Chief Complaint: Chest Pain Informant: patient and EMS Narrative Narrative: 59-year-old female was sent from the PCPs office at [facility] due to the patient having intermittent [...] thought I was having a heart attack. [facility] Medical History (Updated 02/22/25 @ 20:09 [...] % (Auto) 48.8 Lymph % (Auto) 37.3 [place] % (Auto) 11.0 H Eos % (Auto) [...] in the appropriate clinical context. Reading Location: [facility] Rhythm Strip Rhythm Strip: Sinus Tach [...] DO [Primary Care Provider] - Print Language: Gabonese Disposition Disposition: Acute Care Hospital [facility] What to do if you have Problems For any increased pain, shortness of breath, bleeding, nausea or vomiting, chestpain, or any unexpected problems, contact your Primary Care Provider. Call [facility] ([phone]) or report to the closest Emergency Room. Call 911 if necessary. 02/22/252008 <Electronically signed by John Catherine MD> Cosigner Signature (if applicable): CC: Dr. Jese Zheng DO ~ Signed [facility] Work Phone: 1(152) 521-713908-04-2025 Telephone encounter Note* Telephone Encounter - Fabiana Cook LPN - 02/22/2025 9:27 AM EDT informed and states if Pt. doesn't seem Shortness of Breath on the phone make Appt withNP. Appt. made. [facility]08-04-2025 Miscellaneous Notes* Telephone Encounter - Fabiana Ponce [...] see Dr Zheng or one of her surgical supplies sterilizer. I let Pt know I would send [...] to lay flat. Pt reports wheezing, mala DIVING JUDGE cough. Shortness of Breath walking. 5. RECURRENT [...] center with anything she eats or drinks, sandwich maker cough,and dizziness/lightheadedness. Pt denies fever or runny nose. 10. O2 SATURATION MONITOR: O2 88-92% RA 11. : Postmenopausal. 12. TRAVEL: Denies traveled out of the country in the last month. Protocols used: Breathing Nnrewkaofw-ZGSCS-EW documented in this encounterUniversity Hospitals Samaritan Medical Center08-04-2025 Telephone encounter Note * Telephone Encounter - Digna Roberts RN - 02/22/2025 8:12 AM EDT Protocol recommends go to ER now. Pt states she would rather come in to see Dr Zheng or one of her surgical supplies sterilizer. I let Pt know I would send [...] to lay flat. Pt reports wheezing, mala DIVING JUDGE cough. Shortness of Breath walking. 5. RECURRENT [...] center with anything she eats or drinks, sandwich maker cough,and dizziness/lightheadedness. Pt denies fever or runny nose. 10. O2 SATURATION MONITOR: O2 88-92% RA 11. : Postmenopausal. 12. TRAVEL: Denies traveled out of the country in the last month. Protocols used: Breathing Knfsxfytcy-AZFMF-GB [facility]07-16-2025 Telephone encounter Note* Telephone Encounter - Pippa De La Rosa LPN - 02/03/2025 9:18 AM EDT Opened in error. [facility]07-16-2025 Miscellaneous Notes* Telephone Encounter - Pippa De La Rosa LPN - 02/03/2025 9:18 AM EDT Opened in error. documented in this encounterUniversity Hospitals Samaritan Medical Center07-07-2025 Telephone encounter Note * Telephone Encounter - Susana Garcia RPh - 01/25/2025 1:40 PM EDT BMP WNL since starting Jardiance and A1c showing improvement to 9.6% (from 10.4% on 12/30/24). Jardiance dose recently increased at recent pharmacy visit. Next PharmD f/up on 02/25/25 Susana Garcia PharmD, BCACP Primary Care Clinical Data Center Technician [facility] Work Phone: [phone]) 292-262607-07-2025 Miscellaneous Notes* Telephone Encounter - Susana Garcia RPh - 01/25/2025 1:40 PM EDT BMP WNL since starting Jardiance and A1c showing improvement to 9.6% (from 10.4% on 12/30/24). Jardiance dose recently increased at recent pharmacy visit. Next PharmD f/up on 02/25/25 Susana Garcia PharmD, ROSANNE Primary Care Clinical Data Center Technician documented in this encounterUniversity Hospitals Samaritan Medical Center07-03-2025 History of Present illness Narrative* Susana Garcia [facility] ED - 01/21/2025 3:00 PM EDT Images from [...] any Novolog today because she needs to burr picker refill Confirmed starting Jardiance and tolerating [...] capsule 1 Oral Medication Containers (SHARPS CONTAINER) [facility] Use to collect sharps as directed. 1 Each 0 flash glucose scanning reader (FREESTYLE MICHI 3 READER) Use to monitor blood glucose continuously 1 Each 0 Insulin Poteet, Disposable, (UNIFINE PENTIPS) 31 gauge x 3/16 [...] (BAQSIMI) 3 mg/actuation nasal spray Use 1 [place] in the nose as needed for low [...] Susana Garcia, MonsterD, BCACP Primary Care Clinical Data Center Technician I spent a total of 20 minutes on the date of the service which included preparing to see the patient, aejj-bk-meed patient care, completing clinical documentation, counseling and educating the patient/family/caregiver, and ordering medications, tests, or procedures. documented in this encounterUniversity Hospitals Samaritan Medical Center07-03-2025 Instructions* Patient Instructions* Susana Garcia RPh - [...] on your way out documented in this encounterUniversity Hospitals Samaritan Medical Center07-03-2025 NoteHNO ID: [id number] Author: SUSANA GARCIA RPh Service: ? Author [...] any Novolog today because she needs to burr picker refill Confirmed starting Jardiance and tolerating [...] capsule 1 Oral Medication Containers (SHARPS CONTAINER) [facility] Use to collect sharps as directed. 1 Each 0 flash glucose scanning reader (FREESTYLE MICHI 3 READER) Use to monitor blood glucose continuously 1 Each 0 Insulin Poteet, Disposable, (UNIFINE PENTIPS) 31 gauge x 3/16 [...] sugars and with insu (more content not included)...[facility]06-23-2025 Telephone encounter Note* Telephone Encounter - Maria [...] Lam LPN January 11, 2025 6:48 PM [facility]06-23-2025 Miscellaneous Notes* Telephone Encounter - Maria Eugenia [...] 11, 2025 6:48 PM documented in this encounterUniversity Hospitals Samaritan Medical Center06-11-2025 NoteHNO ID: [id number] Author: JESE ZHENG, DO Service: ? Author [...] pad and topical Voltaren. She has taken [place] with relief when pain is severe. Right [...] Use Smoking status: Former (more content not included)...[facility]06-11-2025 History of Present illness Narrative* Jese Zheng, [...] pad and topical Voltaren. She has taken [place] with relief when pain is severe. Right [...] needed (rash, skin lesions). flash glucose sensor (Men RockSTYLE MICHI 14 DAY SENSOR) kit Apply sensor [...] for cough. Oral Medication Containers (SHARPS CONTAINER) [facility] Use to collect sharps as directed. flash glucose scanning reader (FREESTYLE MICHI 3 READER) Use to monitor blood glucose continuously Insulin Poteet, Disposable, (UNIFINE PENTIPS) 31 gauge x 3/16 [...] (BAQSIMI) 3 mg/actuation nasal spray Use 1 [place] in the nose as needed for low [...] agreed with the plan. Jese Zheng DO [address] [place] [address] documented in this encounterUniversity Hospitals Samaritan Medical Center05-23-2025 NoteHNO ID: [id number] Author: VALERY PURI RDMS Service: ? Author Type: Athletic Equipment Custodian Type: Progress Notes Filed: 12/11/2024 08:17 Note [...] PATIENT PRESENTS WITH AN IMPLANTABLE OR ATTACHED MAGAZINE WRITER: No RADIOLOGY DEPARTMENT: Ultrasound PERIPHERAL IV DATA: Not applicable SIGNED BY: Valery Puri RDMS December 11, 2024 8:16 [facility]05-22-2025 NoteHNO ID: [id number] Author: NATALI KLEIN APRN.PRESS SET UP Service: ? Author Type: Nurse Practitioner Type: [...] a day. Blood-Glucose Sen (more content not included)...[facility] 11-26-2024 History of Present illness Narrative* Susana Garcia, [facility] ED - 11/26/2024 2:30 PM EDT Images from the original note were not included. Primary Care Pharmacy Visit CC (Reason for Consult): (E11.65) Uncontrolled type 2 diabetes mellitus with hyperglycemia (HCC) (primary encounter diagnosis) Goal(s): A1c <7% Last Collaborating Provider Visit: 07/23/[address] oNrm Mlils Bean Isaac is a 59 year old [...] lesions). 66 g 2 flash glucose sensor (Men RockSTYLE MICHI 14 DAY SENSOR) kit Apply sensor [...] capsule 1 Oral Medication Containers (SHARPS CONTAINER) [facility] Use to collect sharps as directed. 1 Each 0 flash glucose scanning reader (FREESTYLE MICHI 3 READER) Use to monitor blood glucose continuously 1 Each 0 Insulin Poteet, Disposable, (UNIFINE PENTIPS) 31 gauge x 3/16 [...] (BAQSIMI) 3 mg/actuation nasal spray Use 1 [place] in the nose as needed for low [...] Susana Garcia, PharmD, BCACP Primary Care Clinical Data Center Technician I spent a total of 30 minutes on the date of the service which included preparing to see the patient, gdln-gi-coxg patient care, completing clinical documentation, counseling and educating the patient/family/caregiver, and ordering medications, tests, or procedures. documented in this encounterUniversity Hospitals Samaritan Medical Center05-08-2025 Instructions* Patient Instructions* Susana Garcia RPh - [...] = add 12 units documented in this encounterUniversity Hospitals Samaritan Medical Center05-08-2025 NoteHNO ID: [id number] Author: SUSANA GARCIA RPh Service: ? Author [...] capsule 1 Oral Medication Containers (SHARPS CONTAINER) [facility] Use to collect sharps as directed. 1 Each 0 flash glucose scanning reader (FREESTYLE MICHI 3 READER) Use to monitor blood glucose continuously 1 Each 0 Insulin Poteet, Disposable, (UNIFINE PENTIPS) 31 gauge x 3/16 [...] Each 3 diclofenac (VOLTARE (more content not included)...[facility] 11-16-2024 Telephone encounter Note* Telephone Encounter - [...] Please advise. Thank you. Fabiana Cook LPN. [facility]04-28-2025 Miscellaneous Notes* Telephone Encounter - Fabiana Ponce [...] you. Fabiana Cook LPN. documented in this encounterUniversity Hospitals Samaritan Medical Center04-10-2025 History of Present illness Narrative* Susana Garcia [facility] ED - 10/29/2024 2:30 PM EDT Images from [...] capsule 1 Oral Medication Containers (SHARPS CONTAINER) [facility] Use to collect sharps as directed. 1 Each 0 flash glucose scanning reader (FREESTYLE MICHI 3 READER) Use to monitor blood glucose continuously 1 Each 0 Insulin Poteet, Disposable, (UNIFINE PENTIPS) 31 gauge x 3/16 [...] (BAQSIMI) 3 mg/actuation nasal spray Use 1 [place] in the nose as needed for low [...] Susana Garcia, PharmD, BCACP Primary Care Clinical Data Center Technician I spent a total of 35 minutes on the date of the service which included preparing to see the patient, gvdi-qg-ugty patient care, completing clinical documentation, counseling and educating the patient/family/caregiver, and ordering medications, tests, or procedures. documented in this encounterUniversity Hospitals Samaritan Medical Center04-10-2025 Instructions* Patient Instructions* Susana Garcia RPh - 10/29/2024 2:30 PM EDT Increase Tresiba to 112 units once daily Novolog 20 units plus sliding scale before meals 150-200 = add 2 units 200-250 = add 4 units 250-300 = add 6 units 301-350 = add 8 units >350 = add 12 units documented in this encounterUniversity Hospitals Samaritan Medical Center04-10-2025 NoteHNO ID: [id number] Author: SUSANA GARCIA RPh Service: ? Author Type: Pharmacist Type: Progress Notes Filed: 10/29/2024 15:09 Note Text: Primary Care Pharmacy Visit CC (Reason for Consult): (E11.65) Uncontrolled type 2 diabetes mellitus with hyperglycemia (HCC) (primary encounter diagnosis) Goal(s): A1c <7% Last Collaborating Provider Visit: 07/23/[address] Nrom Mills Bean Isaac is a 59 year [...] capsule 1 Oral Medication Containers (SHARPS CONTAINER) [facility] Use to collect sharps as directed. 1 Each 0 flash glucose scanning reader (FREESTYLE MICHI 3 READER) Use to monitor blood glucose continuously 1 Each 0 Insulin Poteet, Disposable, (UNIFINE PENTIPS) 31 gauge x 3/16 [...] sugars and with ins (more content not included)...[facility]03-05-2025 NoteHNO ID: [id number] Author: JESE ZHENG, DO Service: ? Author [...] for 24.0 ye (more content not included)... [facility]03-05-2025 History of Present illness Narrative* Jese Zheng, [...] for cough. Oral Medication Containers (SHARPS CONTAINER) [facility] Use to collect sharps as directed. flash glucose scanning reader (FREESTYLE MICHI 3 READER) Use to monitor blood glucose continuously Insulin Poteet, Disposable, (UNIFINE PENTIPS) 31 gauge x 3/16 [...] (BAQSIMI) 3 mg/actuation nasal spray Use 1 [place] in the nose as needed for low [...] with the plan. Jese Zheng DO [address] [place] [address] documented in this encounterUniversity Hospitals Samaritan Medical Center02-19-2025 Telephone encounter Note * Telephone Encounter - [...] Please advise. Thank you. Fabiana Cook LPN. [facility]02-19-2025 Miscellaneous Notes* Telephone Encounter - Fabiana Ponce [...] you. Fabiana Cook LPN. documented in this encounterUniversity Hospitals Samaritan Medical Center01-02-2025 History of Present illness Narrative* Susana Garcia [facility] ED - 07/23/2024 2:30 PM EST Images from [...] capsule 1 Oral Medication Containers (SHARPS CONTAINER) [facility] Use to collect sharps as directed. 1 Each 0 flash glucose scanning reader (FREESTYLE MICHI 3 READER) Use to monitor blood glucose continuously 1 Each 0 insulin aspart U-100 (NOVOLOG U-100 INSULIN ASPART) 100 unit/mL Inject 16 units subcutaneously as directed plus sliding scale with meals. Insulin Poteet, Disposable, (UNIFINE PENTIPS) 31 gauge x 3/16 [...] (BAQSIMI) 3 mg/actuation nasal spray Use 1 [place] in the nose as needed for low [...] Susana Garcia, PharmD, BCACP Primary Care Clinical Data Center Technician I spent a total of 30 minutes on the date of the service which included preparing to see the patient, raas-wu-usnc patient care, completing clinical documentation, counseling and educating the patient/family/caregiver, and ordering medications, tests, or procedures. documented in this encounterUniversity Hospitals Samaritan Medical Center01-02-2025 Instructions* Patient Instructions* Susana Garcia RPh - [...] appointment: 09/03 at 2:30pm documented in this encounterUniversity Hospitals Samaritan Medical Center01-02-2025 NoteHNO ID: [id number] Author: SUSANA GARCIA RPh Service: ? Author [...] capsule 1 Oral Medication Containers (SHARPS CONTAINER) [facility] Use to collect sharps as directed. 1 Each 0 flash glucose scanning reader (FREESTYLE MICHI 3 READER) Use to monitor blood glucose continuously 1 Each 0 insulin aspart U-100 (NOVOLOG U-100 INSULIN ASPART) 100 unit/mL Inject 16 units subcutaneously as directed plus sliding scale with meals. Insulin Poteet, Disposable, (UNIFINE PENTIPS) 31 gauge x 3/16 [...] (BAQSIMI) 3 mg/actuation nasal spray Use 1 [place] in the nose as needed for low blood sugar. May repeat after 15 minutes using a new device if there is no response. 1 Each 3 polyethylene glycol 3350 (MIRALAX) 17 gram/dose powder 1 capful daily in the morning 1700 (more content not included)...[facility]12-31-2024 Telephone encounter Note* Telephone Encounter - Suellen Rojas MA - 07/21/2024 9:13 AM EST Patient has been notified of message below and verbalized understanding. She already has an appointment scheduled with PCP office on 07/23/2024. Patient advised to contact office back to schedule once she meets the 9.0 or less requirement. [facility]12-31-2024 Telephone encounter Note* Telephone Encounter - Suellen Rojas MA - 07/21/2024 9:13 AM EST ----- Message from John Brown MD sent at 07/21/2024 8:54 AM EST ----- Patient is over 10. Surgery not advisable over 10 due to risk of surgical site infection. Once it is back to 9 or lower, we would consider. [facility]12-31-2024 Miscellaneous Notes* Telephone Encounter - Suellen Rojas [...] lower, we would consider. documented in this encounterUniversity Hospitals Samaritan Medical Center12-30-2024 NoteHNO ID: [id number] Author: SUELLEN ROJAS MA Service: ? Author Type: Computer Technology Trainer Type: Progress Notes Filed: 08/02/2024 09:35 Note Text: PT ASSESSMENT - CASTING ROOM [facility] presents for Application of splint. Applied size 13 oval 8 splint to Right middle finger. Patient has been instructed in Care and proper application of brace. Suellen Rojas [facility]12-30-2024 History of Present illness Narrative* Suellen Rojas [...] MD Department of Orthopaedics Orthopaedics [address] [facility] [address] Dept: [phone] Dept July 20, 2025 CHIEF COMPLAINT: New of the Right Hand HPI Patient c/o R hand pain x1 mo. No known injury. Patient reports hand tight and locks when she makesfist. Trouble twisting, opening jars/doors, etc. PCP worked up for gout and pt was on abx with no relief. 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 [...] hand. IMAGING: IMPRESSION: No acute osseous abnormality Printing Specialist: SANTOSH Transcribe Date/Time: Jun 26 2024 12:23P [...] for cough. Oral Medication Containers (SHARPS CONTAINER) [facility] Use to collect sharps as directed. flash glucose scanning reader (FREESTYLE MICHI 3 READER) Use to monitor blood glucose continuously Insulin Poteet, Disposable, (UNIFINE PENTIPS) 31 gauge x 3/16 [...] (BAQSIMI) 3 mg/actuation nasal spray Use 1 [place] in the nose as needed for low [...] physician via US mail. Jese Zheng [address] [facility] [address] Jese Zheng DO [address] [facility] [address] John Brown MD documented in this encounterUniversity Hospitals Samaritan Medical Center12-30-2024 NoteHNO ID: [id number] Author: JOHN BROWN MD Service: ? Author Type: Physician Type: Progress Notes Filed: 08/02/2024 09:35 Note Text: John Brown MD Department of Orthopaedics Orthopaedics [address] [facility] [address] Dept: [phone] Dept July 20, 2025 CHIEF COMPLAINT: New of the Right Hand HPI Patient c/o R hand pain x1 mo. No known injury. Patient reports hand tight and locks when she makes fist. Trouble twisting, opening jars/doors, etc. PCP worked up for gout and pt was on abx with no relief. 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 [...] hand. IMAGING: IMPRESSION: No acute osseous abnormality Printing Specialist: SANTOSH Transcribe Date/Time: Jun 26 2024 12:23P [...] Drug use: No Me (more content not included)...[facility]12-27-2024 Telephone encounter Note* Telephone Encounter - Jese Zheng DO - 07/17/2024 7:06 AM EST Yes, okay to see Orthopedics- Dr. Brown or Dr.Chicorrelli eJse Zheng DO [facility]12-27-2024 Miscellaneous Notes* Telephone Encounter - Jese Zheng [...] with reply. Thank you. documented in this encounterUniversity Hospitals Samar[facility] Center12-26-2024 Telephone encounter Note * Telephone Encounter - [...] agreeable. Call patient with reply. Thank you. [facility]12-16-2024 Telephone encounter Note* Telephone Encounter - Susana Garcia RPh - 07/06/2024 2:01 PM EST Primary Care Pharmacy Rescheduling Outreach Patient cancelled 06/04 follow up visit and has not yet rescheduled. Call center, please contact patient and reschedule in person, telephone, and virtual visit for Diabetes management within ~4-6 week(s). (Visit length: 30 minutes) Thank you, Susana Garcia, PharmD, BCACP Primary Care Clinical Data Center Technician 07/06/2024 2:[address] [facility] Work Phone: 1(236) 461-318012-16-2024 Miscellaneous Notes* Telephone Encounter - Susana Garcia RPh - 07/06/2024 2:01 PM EST Primary Care Pharmacy Rescheduling Outreach Patient cancelled 06/04 follow up visit and has not yet rescheduled. Call center, please contact patient and reschedule in person, telephone, and virtual visit for Diabetes management within ~4-6 week(s). (Visit length: 30 minutes) Thank you, Susana Garcia, PharmD, BCACP Primary Care Clinical Data Center Technician 07/06/2024 2:01 PM documented in this encounterUniversity Hospitals Samar[facility]12-03-2024 History of Present illness Narrative* Yenni Moreau [...] PATIENT PRESENTS WITH AN IMPLANTABLE OR ATTACHED MAGAZINE WRITER: No RADIOLOGY DEPARTMENT: General X-ray: Exam(s) Completed: Upper Extremity X- Ray(s): Hand, right PERIPHERAL IV DATA: Not applicable SIGNED BY: RT Marga(Zachariah) June 23, 2024 3:51 PM documented in this encounterUniversity Hospitals Samar[facility] Medical Center12-03-2024 NoteHNO ID: [id number] Author: YENNI MOREAU RT(Zcahariah) Service: ? Author Type: Athletic Equipment Custodian Type: Progress Notes Filed: 06/23/2024 16:00 Note [...] PATIENT PRESENTS WITH AN IMPLANTABLE OR ATTACHED MAGAZINE WRITER: No RADIOLOGY DEPARTMENT: General X-ray: Exam(s) Completed: Upper Extremity X-Ray(s): Hand, right PERIPHERAL IV DATA: Not applicable SIGNED BY: RT Marga(R) June 23, 2024 3:51 [facility]12-03-2024 NoteHNO ID: [id number] Author: JESE ZHENG, Service: ? Author Type: [...] PAST SURGICAL HISTORY OF (more content not included)...[facility]10-15-2024 Telephone encounter Note* Telephone Encounter - Hayde Zhu MA - 05/05/2024 2:37 PM EDT Pt informed Hayde Zhu MA [facility]10-15-2024 Miscellaneous Notes* Telephone Encounter - Hayde Zhu [...] she is taking vitamin D3 at least 4203-7856 international unit(s) a day with a meal Jese Zheng DO documented in this encounterUniversity Hospitals Samar[facility] Center10-15-2024 Telephone encounter Note * Telephone Encounter - [...] a week. Authorizing Provider: LINNEA MARTINEZ PA-C [facility]10-15-2024 Telephone encounter Note* Telephone Encounter - Fabiana Cook LPN - 05/05/2024 11:33 AM EDT Pt. informed. She is taking all meds as prescribed. BS are 133-143 in the AM. Doing well. [facility]10-15-2024 Telephone encounter Note* Telephone Encounter - Jese [...] she is taking vitamin D3 at least 9962-6425 international unit(s) a day with a meal Jese Zheng DO [facility]10-14-2024 Telephone encounter Note* Telephone Encounter - Rivka Ramírez LPN - 05/04/2024 12:02 PM EDT Images from the original note were not included. prior authorization approved Payer: [facility] [phone] Note from payer: Your PA request cannot be processed electronically. For further inquiries please contact the number on the back of the member prescription card. (Message [phone]) Electronic appeal: Not supported View History Medication Being Authorized Blood-Glucose Sensor (FREESTYLE MICHI 3 PLUS SENSOR) ingrid Use to monitor glucose continuously and replace sensor every 15 days Dispense: 6 Each Refills: 3 Start: 05/04/2024 Class: Normal This order has been released to its destination. To be filled at: [facility] [place] [address] [address] [facility] - [phone] [facility]10-14-2024 Miscellaneous Notes* Telephone Encounter - Rivka Ramírez LPN - 05/04/2024 12:02 PM EDT Images from the original note were not included. prior authorization approved Payer: [facility] [phone] Note from payer: Your PA request cannot be processed electronically. For further inquiries please contact the number on the back of the member prescription card. (Message [phone]) Electronic appeal: Not supported View History Medication Being Authorized Blood-Glucose Sensor (FREESTYLE MICHI 3 PLUS SENSOR) ingrid Use to monitor glucose continuously and replace sensor every 15 days Dispense: 6 Each Refills: 3 Start: 05/04/2024 Class: Normal This order has been released to its destination. To be filled at: [facility] - [place] [address] [address] [facility] - [phone] documented in this encounterUniversity Hospitals [facility]10-14-2024 Telephone encounter Note * Telephone Encounter - Susana Garcia RPh - 05/04/2024 10:17 AM EDT Patient's request for medication is as follows: Requested Prescriptions Signed Prescriptions Disp Refills Blood-Glucose Sensor (FREESTYLE MICHI 3 PLUS SENSOR) ingrid 6 Each 3 Sig: Use to monitor glucose continuously and replace sensor every 15 days Susana Garcia, PharmD, ROSANNE Primary Care Clinical Data Center Technician [facility] Work Phone: [phone]) 152-222510-14-2024 Miscellaneous Notes* Telephone Encounter - Susana Garcia RPh - 05/04/2024 10:17 AM EDT Patient's request for medication is as follows: Requested Prescriptions Signed Prescriptions Disp Refills Blood-Glucose Sensor (FREESTYLE MICHI 3 PLUS SENSOR) ingrid 6 Each 3 Sig: Use to monitor glucose continuously and replace sensor every 15 days Susana Garcia PharmD, ROSANNE Primary Care Clinical Data Center Technician documented in this encounterUniversity Hospitals Samar[facility]10-03-2024 History of Present illness Narrative* Susana Garcia [...] capsule 3 Oral Medication Containers (SHARPS CONTAINER) [facility] Use to collect sharps as directed. 1 [...] directed plus sliding scale with meals. Insulin Poteet, Disposable, (UNIFINE PENTIPS) 31 gauge x 3/16 [...] (BAQSIMI) 3 mg/actuation nasal spray Use 1 [place] in the nose as needed for low [...] doses. Rx coverage: Payor: SEAN / Plan: SENA DEL CID / Product Type: EPO / [...] Susana Garcia PharmD, BCACP Primary Care Clinical Data Center Technician I spent a total of 20 minutes on the date of the service which included preparing to see the patient, [id number] patient care, completing clinical documentation, counseling and educating the patient/family/caregiver, and ordering medications, tests, or procedures. documented in this encounterUniversity Hospitals [facility]10-03-2024 Instructions* Patient Instructions* Susana Garcia RPh - [...] once weekly on Sundays documented in this encounterUniversity Hospitals Samar[facility] Center10-03-2024 NoteHNO ID: [id number] Author: SUSANA GARCIA RPh Service: ? Author [...] capsule 3 Oral Medication Containers (SHARPS CONTAINER) [facility] Use to collect sharps as directed. 1 [...] directed plus sliding scale with meals. Insulin Poteet, Disposable, (UNIFINE PENTIPS) 31 gauge x 3/16 [...] (BAQSIMI) 3 mg/actuation nasal spray Use 1 [place] in the nose as needed for low [...] Dx: insulin-dependent DM 49 (more content not included)...[facility]09-25-2024 Note* Letter - Coordinator, Mammography - 04/15/2024 3:17 PM EDT [address] [address] April 16, 2024 PID: [id number] Lina Isaac [address] [place] [address] Dear Ms. Isaac, We are pleased to [...] report will be kept on [facility] at [facility] as part of your permanent medical record and are available for your continuing care. Thank you for allowing us to help in meeting your health care needs. Sincerely, Dr. Rudd Interpreting Radiologist [facility] (Normal over 40) [facility]09-25-2024 Miscellaneous Notes* Letter - Coordinator, Mammography - 04/15/2024 3:17 PM EDT [address] [address] April 16, 2024 PID: [id number] Lina Isaac [address] [place] [address] Dear Ms. Isaac, We are pleased to [...] report will be kept [facility] at [facility] as part of your permanent medical record and are available for your continuing care. Thank you for allowing us to help in meeting your health care needs. Sincerely, Dr. Rudd Interpreting Radiologist [facility] (Normal over 40) documented in this encounterUniversity Hospitals Samaritan Medical Center09-24-2024 History of Present illness Narrative* Trinidad Leary [...] PATIENT PRESENTS WITH AN IMPLANTABLE OR ATTACHED MAGAZINE WRITER: No RADIOLOGY DEPARTMENT: Mammography PERIPHERAL IV DATA: Not applicable SIGNED BY: BILLY Craven) April 14, 2024 5:14 PM documented in this encounterUniversity Hospitals Samar[facility] Center09-24-2024 NoteHNO ID: [id number] Author: TRINIDAD LEARY RT(R) Service: Radiology Author [...] PATIENT PRESENTS WITH AN IMPLANTABLE OR ATTACHED MAGAZINE WRITER: No RADIOLOGY DEPARTMENT: Mammography PERIPHERAL IV DATA: Not applicable SIGNED BY: RT Herber(R) April 14, 2024 5:14 [facility]09-17-2024 Telephone encounter Note* Telephone Encounter [...] Almaguer RN April 07, 2024 10:14 AM [facility]09-17-2024 Miscellaneous Notes* Telephone Encounter - Aspen Almaguer [...] 07, 2024 10:14 AM documented in this encounterUniversity Hospitals Samar[facility] Medical Center08-28-2024 NoteHNO ID: [id number] Author: JESE ZHENG, DO Service: ? Author [...] status: Former Current pack (more content not included)...[facility]08-28-2024 History of Present illness Narrative* Jese Zheng, [...] arm every 14days flash glucose scanning reader (Men RockSTYLE MICHI 3 READER) Use to monitor blood glucose continuously insulin aspart U-100 (NOVOLOG U-100 INSULIN ASPART) 100 unit/mL Inject 16 units subcutaneously as directed plus sliding scale with meals. Insulin Poteet, Disposable, (UNIFINE PENTIPS) 31 gauge x 3/16 [...] (BAQSIMI) 3 mg/actuation nasal spray Use 1 [place] in the nose as needed for low [...] agreed with the plan. Jese Zheng DO [address] [place] [address] documented in this encounterUniversity Hospitals Samar[facility] Center08-15-2024 History of Present illness Narrative* Susana Garcia, [facility] ED - 03/05/2024 1:30 PM EDT Images from [...] capsule 3 Oral Medication Containers (SHARPS CONTAINER) [facility] Use to collect sharps as directed. 1 [...] directed plus sliding scale with meals. Insulin Poteet, Disposable, (UNIFINE PENTIPS) 31 gauge x 3/16 [...] (BAQSIMI) 3 mg/actuation nasal spray Use 1 [place] in the nose as needed for low [...] Susana Garcia, Alfa, BCACP Primary Care Clinical Data Center Technician I spent a total of 25 minutes on the date of the service which included preparing to see the patient, ayer-pd-[id number] patient care, completing clinical documentation, and counseling and educating the patient/family/caregiver. documented in this encounterUniversity Hospitals [facility]ar[facility]08-15-2024 Instructions* Patient Instructions* Susana Garcia RPh - 03/05/2024 1:30 PM EDT Continue current medications: Metformin 1000 mg BID Trulicity 4.5 mg once weekly on Sundays Tresiba 110 units once daily every morning Novolog 16 units + sliding scale with meals 200-230 = add 2 units 230-260 = add 4 units 260-300 = add 6 units >300 = add 8 units documented in this encounterUniversity Hospitals Samar[facility] Center08-15-2024 NoteHNO ID: [id number] Author: SUSANA GARCIA RPh Service: ? Author [...] capsule 3 Oral Medication Containers (SHARPS CONTAINER) [facility] Use to collect sharps as directed. 1 [...] directed plus sliding scale with meals. Insulin Poteet, Disposable, (UNIFINE PENTIPS) 31 gauge x 3/16 [...] (BAQSIMI) 3 mg/actuation nasal spray Use 1 [place] in the nose as needed for low [...] 11 No current facil (more content not included)...[facility] 02-06-2024 Telephone encounter Note* Telephone Encounter - Susana Garcia RP - 02/06/2024 4:04 PM EDT Patient was no show for in office follow up visit. Will send [employer]/LBR message to patient to reschedule. Ssuana Garcia, PharmD, BCACP Primary Care Clinical Data Center Technician [facility] Work Phone: 1(564) 831-896107-18-2024 Miscellaneous Notes* Telephone Encounter - Susana Garcia RP - 02/06/2024 4:04 PM EDT Patient was no show for in office follow up visit. Will send L[employer]ín[employer] Gosto/LBR message to patient to reschedule. Susana Garcia, Alfa, BCACP Primary Care Clinical Data Center Technician documented in this encounterUniversity Hospitals Samar[facility] Center07-09-2024 Miscellaneous Notes* Telephone Encounter - Susana Garcia RP - 01/28/2024 2:02 PM EDT Called and spoke with patient; addressed in separate phone encounter documented in this encounterUniversity Hospitals Samar[facility] Center07-09-2024 Telephone encounter Note * Telephone Encounter - Susana Garcia RP - 01/28/2024 2:02 PM EDT Called and spoke with patient; addressed in separate phone encounter [facility] Work Phone: 1(718) 885-176207-09-2024 Telephone encounter Note* Telephone Encounter - Susana Garcia [facility] ED - 01/28/2024 2:00 PM EDT Called and [...] Susana Garcia PharmD, ROSANNE Primary Care Clinical Data Center Technician [facility] Work Phone: 1([phone]) 752-454007-09-2024 Miscellaneous Notes* Telephone Encounter - Susana Garcia [...] Susana Garcia PharmD, ROSANNE Primary Care Clinical Data Center Technician * Telephone Encounter - Brianna Dye RN [...] not have these effects. Please advise patient. [phone] Thank you. documented in this encounterCleveland [id number] Telephone encounter Note * Telephone Encounter - Brianna Dye RN - 01/28/2024 8:30 AM EDT Patient calling to ehsan Garcia [facility] ED an update. Pt states she began the [...] not have these effects. Please advise patient. [phone] Thank you. [facility]07-05-2024 Telephone encounter Note* Telephone Encounter - Pippa [...] Rosa LPN January 24, 2024 10:56 AM [facility]07-05-2024 Miscellaneous Notes* Telephone Encounter - Pippa De [...] 24, 2024 10:56 AM documented in this encounterUniversity Hospitals Samar[facility] Center07-05-2024 Miscellaneous Notes* Telephone Encounter - Pippa De [...] 24, 2024 10:55 AM documented in this encounterUniversity Hospitals Sam[facility] Center07-05-2024 Telephone encounter Note * Telephone Encounter - [...] Rosa LPN January 24, 2024 10:55 AM [facility]06-21-20[facility] Telephone encounter Note* Telephone Encounter - Rivka Ramírez LPN - 01/10/2024 1:13 PM EDT Images from the original note were not included. Electronic PA completed and approved for ozempic. Prior authorization approved Payer: [facility] [phone] Your PA request has been approved. Additional information will be provided in the approval communication. (Message [phone]) Approval Details Authorized from January 10, 2024 [...] to its destination. To be filled at: [facility] [address] [place] [address] [address] [facility] - [phone] pt notified via my chart.. [facility]06-21-2024 Miscellaneous Notes* Telephone Encounter - Rivka Ramírez LPN - 01/10/2024 1:13 PM EDT Images from the original note were not included. Electronic PA completed and approved for ozempic. Prior authorization approved Payer: [facility] [phone] Your PA request has been approved. Additional information will be provided in the approval communication. (Message 1143) Approval Details Authorized from January 10, 2024 [...] to its destination. To be filled at: [facility] [address] [place] [address] - [address] [facility] - [phone] pt notified via my chart.. documented in this encounterUniversity Hospitals Samaritan [facility] Center06-21-2024 Telephone encounter Note * Telephone Encounter - Kiah Pina RN - 01/10/2024 12:34 PM EDT Lucia calling from [facility] pharmacy authorization department. States she is calling to notify provider that pt's Ozempic prescription has been approved. Approval # [id number] [facility]06-21-2024 Miscellaneous Notes* Telephone Encounter - Kiah Pina RN - 01/10/2024 12:34 PM EDT Lucia calling from [facility] pharmacy authorization department. States she is calling to notify provider that pt's Ozempic prescription has been approved. Approval # [id number] documented in this encounterUniversity Hospitals Samaritan Medical Center06-20-2024 History of Present illness Narrative* Susana Garcia, [facility] ED - 01/09/2024 3:30 PM EDT Images from [...] capsule 3 Oral Medication Containers (SHARPS CONTAINER) [facility] Use to collect sharps as directed. 1 [...] directed plus sliding scale with meals. Insulin Poteet, Disposable, (UNIFINE PENTIPS) 31 gauge x 3/16 [...] (BAQSIMI) 3 mg/actuation nasal spray Use 1 [place] in the nose as needed for low [...] Susana Garcia, MonsterD, BCACP Primary Care Clinical Data Center Technician I spent a total of 30 minutes on the date of the service which included preparing to see the patient, astg-vs-ntju patient care, completing clinical documentation, counseling and educating the patient/family/caregiver, and ordering medications, tests, or procedures. documented in this encounterUniversity Hospitals Samaritan [facility] Center06-20-2024 Instructions* Patient Instructions* Susana Garcia RPh - [...] Metformin 1000 mg BID documented in this encounterUniversity Hospitals Samaritan Medical Center06-07-2024 Telephone encounter Note * Telephone Encounter - Fabiana Cook LPN - 12/27/2023 11:04 AM EDT Pt. informed via My Chart. [facility]06-07-2024 Miscellaneous Notes* Telephone Encounter - Fabiana Ponce LPN - 12/27/2023 11:04 AM EDT Pt. informed via My Chart. * Telephone Encounter - Jese Zehng DO - 12/27/2023 8:21 AM EDT Please inform patient that carotid artery US only shows mild plaque up to 20- 39%. Recommend recheckin 2 years Jese Zheng DO documented in this encounterUniversity Hospitals Samaritan Medical Center06-07-2024 Telephone encounter Note * Telephone Encounter - Jese Zheng DO - 12/27/2023 8:21 AM EDT Please inform patient that carotid artery US only shows mild plaque up to 20- 39%. Recommend recheckin 2 years Jese Zheng DO [place] [address]-08-2024 History of Present illness Narrative* Jese Zheng [...] directed plus sliding scale with meals. Insulin Poteet, Disposable, (UNIFINE PENTIPS) 31 gauge x 3/16 [...] (BAQSIMI) 3 mg/actuation nasal spray Use 1 [place] in the nose as needed for low [...] with the plan. Jese Zheng DO [address] [place] [address] documented in this encounterUniversity Hospitals Samaritan [facility] Center05-06-2024 Telephone encounter Note * Telephone Encounter - [...] Please advise. Thank you. Shanelle Mckee MA. [facility]05-06-2024 Miscellaneous Notes* Telephone Encounter - Shanelle Mckee [...] you. Shanelle Mckee MA. documented in this encounterUniversity Hospitals Samaritan Medical Center05-06-2024 Telephone encounter Note * Telephone Encounter - [...] Please advise. Thank you. Shanelle Mckee MA. [facility]05-06-2024 Miscellaneous Notes* Telephone Encounter - Shanelle Mckee [...] you. Shanelle Mckee MA. documented in this encounterUniversity Hospitals Samaritan Medical Center04-11-2024 Miscellaneous Notes* Telephone Encounter - Susana Garcia RPh - 10/31/2023 4:36 PM EDT Test message patient sent during today's in office PharmD visit. No further action required at thistime Susana Garcia PharmD Primary Care Clinical Data Center Technician documented in this encounterUniversity Hospitals Samaritan Medical Center04-11-2024 History of Present illness Narrative* Susana Garcia [...] tablet 1 Oral Medication Containers (SHARPS CONTAINER) [facility] Use to collect sharps as directed. 1 [...] directed plus sliding scale with meals. Insulin Poteet, Disposable, (UNIFINE PENTIPS) 31 gauge x 3/16 [...] (BAQSIMI) 3 mg/actuation nasal spray Use 1 [place] in the nose as needed for low [...] 12/26/23 Susana Garcia PharmD Primary Care Clinical Data Center Technician I spent a total of 30 minutes on the date of the service which included preparing to see the patient, aoua-uq-faie patient care, completing clinical documentation, and counseling and educating the patient/family/caregiver. documented in this encounterUniversity Hospitals Samaritan Medical Center04-11-2024 Instructions* Patient Instructions* Susana Garcia RPh - [...] December 25 at 3:30pm documented in this encounterUniversity Hospitals Samaritan Medical Center03-22-2024 Miscellaneous Notes* Telephone Encounter - Hayde Zhu [...] any nasal sprays at all. Patient uses [facility] for her pharmacy. Please advise documented in this encounterUniversity Hospitals Samaritan Medical Center03-07-2024 History of Present illness Narrative* Susana Garcia, [facility] ED - 09/26/2023 3:00 PM EST Images from [...] tablet 1 Oral Medication Containers (SHARPS CONTAINER) [facility] Use to collect sharps as directed. 1 Each 0 Blood-Glucose Sensor (FREESTYLE MICHI 3 SENSOR) ingrid Apply new sensor to back of upper arm every 14days 6 Each 4 flash glucose scanning reader (Men RockSTYLE MICHI 3 READER) Use to monitor blood [...] directed plus sliding scale with meals. Insulin Poteet, Disposable, (UNIFINE PENTIPS) 31 gauge x 3/16 [...] (BAQSIMI) 3 mg/actuation nasal spray Use 1 [place] in the nose as needed for low [...] 10/31/23 Susana Garcia PharmD Primary Care Clinical Data Center Technician I spent a total of 30 minutes on the date of the service which included preparing to see the patient, ypyg-hl-waxk patient care, completing clinical documentation, counseling and educating the patient/family/caregiver, and ordering medications, tests, or procedures. documented in this encounterUniversity Hospitals Samaritan Medical Center03-07-2024 Instructions* Patient Instructions* Susana Garcia RPh - 09/26/2023 3:00 PM EST Increase Tresiba to 100 units once daily Continue all other medications: Metformin 1000 mg BID Trulicity 4.5 mg once weekly Novolog 16 units + sliding scale with meals 200-230 = add 2 units 230-260 = add 4 units 260-300 = add 6 units >300 = add 8 units documented in this encounterUniversity Hospitals Samaritan Medical Center03-02-2024 Miscellaneous Notes* Telephone Encounter - Fabiana Cook LPN - 09/21/2023 9:24 AM EST Patient informed via My Chart. * Telephone Encounter - Jese Zheng DO - 09/21/2023 8:12 AM EST Please inform patient that her viral testing is negative Jese Zheng DO documented in this encounterUniversity Hospitals Samaritan Medical Center03-02-2024 History of Present illness Narrative* Jese Zheng [...] directed plus sliding scale with meals. Insulin Poteet, Disposable, (UNIFINE PENTIPS) 31 gauge x 3/16 [...] (BAQSIMI) 3 mg/actuation nasal spray Use 1 [place] in the nose as needed for low [...] plan. See patient instructions. Jese Zheng DO [address] [place] [address] documented in this encounterUniversity Hospitals Samaritan Medical Center02-17-2024 Miscellaneous Notes* Telephone Encounter - Mariana Joy [...] meal Jese Zheng DO documented in this encounterUniversity Hospitals Samaritan Medical Center02-06-2024 Miscellaneous Notes* Telephone Encounter - Antonette Kurtz [...] you. Antonette Kurtz LPN. documented in this encounterUniversity Hospitals Samaritan Medical Center02-06-2024 History of Present illness Narrative* Jese Zheng [...] directed plus sliding scale with meals. Insulin Poteet, Disposable, (UNIFINE PENTIPS) 31 gauge x 3/16 [...] (BAQSIMI) 3 mg/actuation nasal spray Use 1 [place] in the nose as needed for low [...] with the plan. Jese Zheng DO [address] [place] [address] documented in this encounterUniversity Hospitals Samaritan Medical Center02-01-2024 History of Present illness Narrative* Susana Garcia, [facility] - 08/22/2023 3:00 PM EST Primary Care [...] Dispense Refill Oral Medication Containers (SHARPS CONTAINER) [facility] Use to collect sharps as directed. 1 Each 0 Blood-Glucose Sensor (FREESTYLE MICHI 3 SENSOR) ingrid Apply new sensor to back of upper arm every 14days 6 Each 4 flash glucose scanning reader (Men RockSTYLE MICHI 3 READER) Use to monitor blood [...] directed plus sliding scale with meals. Insulin Poteet, Disposable, (UNIFINE PENTIPS) 31 gauge x 3/16 [...] (BAQSIMI) 3 mg/actuation nasal spray Use 1 [place] in the nose as needed for low [...] Michi report now that patient connected with Tellyo allowing for continuous monitoring. - Continue current medications - Statin prescribed - atorvastatin - Blood glucose monitoring on a continuous glucose monitoring schedule. Assisted with set up of Tellyo birdie and placement of first sensor. Sensor activated in office. - Counseled on healthy diet and regular exercise - Follow up in 1 month, sooner should any other issues arise. Follow Up: Next PCP visit: 08/27/23 Next PharmD visit: 09/26/23 Susana Garcia PharmD Primary Care Clinical Data Center Technician The majority of the pharmacy visit (> 50%) was spent counseling and/or coordinating care for thepatient. interaction: face to face time was 35 minutes. documented in this encounterUniversity Hospitals Samaritan Medical Center02-01-2024 Instructions* Patient Instructions* Susana Garcia RPh - 08/22/2023 3:00 PM EST Continue current medications: Metformin 1000 mg BID Trulicity 4.5 mg once weekly Tresiba 90 units once daily Novolog 16 units + sliding scale with meals 200-230 = add 2 units 230-260 = add 4 units 260-300 = add 6 units >300 = add 8 units documented in this encounterUniversity Hospitals Samaritan Medical Center12-07-2023 History of Present illness Narrative* Susana Garcia [...] funny if under 87 mg/dl Set up [employer] birdie during visit for use with next [...] Plus sliding scale 15 mL 5 Insulin Poteet, Disposable, (UNIFINE PENTIPS) 31 gauge x 3/16 [...] tablet 3 Oral Medication Containers (SHARPS CONTAINER) [facility] Use to collect sharps as directed. 1 [...] (BAQSIMI) 3 mg/actuation nasal spray Use 1 [place] in the nose as needed for low [...] doses. Rx coverage: Payor: MULTIPLAN / Plan: [facility] / Product Type: PPO / [...] with next sensor. May consider upgrade to HyperQuest 3 at next visit - Counseled on healthy diet and regular exercise - Follow up in 1 month, sooner should any other issues arise. Follow Up: Next PCP visit: 08/27/23 Next PharmD visit: 07/25/23 at 3pm Susana Garcia PharmD Primary Care Clinical Data Center Technician The majority of the pharmacy visit (> 50%) was spent counseling and/or coordinating care for thepatient. interaction: face to face time was 33 minutes. documented in this encounterUniversity Hospitals Samaritan Medical Center12-07-2023 Instructions* Patient Instructions* Susana Garcia RPh - [...] July 25 at 3PM documented in this encounterUniversity Hospitals Samaritan Medical Center11-28-2023 Miscellaneous Notes* Telephone Encounter - Susana Garcia RPh - 06/18/2023 10:39 AM EST Received PFA contact information from per patient request for assistance with choosing prescription drug plan Sent information via [employer] message to patient Susana Garcia, [place] Primary Care Clinical Data Center Technician documented in this encounterUniversity Hospitals Samaritan Medical Center11-16-2023 History of Present illness Narrative* Susana Garcia [...] about coverage options, but the person from [facility] only recommended she log on to [...] Plus sliding scale 15 mL 5 Insulin Poteet, Disposable, (UNIFINE PENTIPS) 31 gauge x 3/16 [...] 90 tablet 3 flash glucose scanning reader ([employer] MICHI 14 DAY READER) Use to test [...] tablet 3 Oral Medication Containers (SHARPS CONTAINER) [facility] Use to collect sharps as directed. 1 [...] (BAQSIMI) 3 mg/actuation nasal spray Use 1 [place] in the nose as needed for low [...] 3PM Susana Garcia PharmD Primary Care Clinical Data Center Technician The majority of the pharmacy visit (> 50%) was spent counseling and/or coordinating care for thepatient. interaction: face to face time was 30 minutes. documented in this encounterUniversity Hospitals Samaritan Medical Center11-16-2023 Instructions* Patient Instructions* Susana Garcia RPh - 06/06/2023 3:00 PM EST Images from the original note were not included. Next appointment: June 27 at 3PM With your next sensor, set up with phone birdie Create an account in [employer]Quest birdie and sync with sensor Adjust your insulin doses to the following: Tresiba 82 units once daily Novolog 16 units plus sliding scale with meals 200-230 = add 2 units 230-260 = add 4 units 260-300 = add 6 units >300 = add 8 units documented in this encounterUniversity Hospitals Samaritan Medical Center11-09-2023 Miscellaneous Notes* Telephone Encounter - Corrine Louise APRN.CARLITOS - 05/30/2023 7:22 AM EST Noted. Thank you. Corrine Louise APRN.PRESS SET UP * Telephone Encounter - Deya Gross LPN [...] insulin for $35/month. Called and spoke with [facility] to provide coupon information. States coupon is not activated but will call company to inquire if patient needs to activate card prior to use. Called patient to discuss; unable to reach. Will attempt outreach again later and will check back with pharmacy later today. Susana Garcia PharmD Primary Care Clinical Data Center Technician * Telephone Encounter - Kiah Pina RN [...] Garcia pharmacist for recommendations. documented in this encounterUniversity Hospitals Samaritan Medical Center11-07-2023 Miscellaneous Notes* Telephone Encounter - Shanelle Mckee MA - 05/28/2023 10:31 AM EST Pt notified and verbalized understanding. Shanelle Mckee MA * Telephone Encounter - Jese Zheng DO - 05/28/2023 8:44 AM EST Please inform patient that her leg US shows no signs of a blood clot /Jese Zheng DO documented in this encounterUniversity Hospitals Samaritan Medical Center11-06-2023 History of Present illness Narrative* Jese Zheng [...] day before meals. Plus sliding scale Insulin Poteet, Disposable, (UNIFINE PENTIPS) 31 gauge x 3/16 [...] once daily. Oral Medication Containers (SHARPS CONTAINER) [facility] Use to collect sharps as directed. metFORMIN (GLUCOPHAGE) 1,000 mg tablet Take 1 tablet by mouth twice daily. TRULICITY 4.5 mg/0.5 mL pen injector Inject 4.5 mg subcutaneously one time a week. diclofenac (VOLTAREN ARTHRITIS PAIN) 1 % topical gel Apply 2 g to affected area four times daily. glucagon (BAQSIMI) 3 mg/actuation nasal spray Use 1 [place] in the nose as needed for low [...] vaccine - ICD9: V04.89, ICD10: Z23 - [employer] COVID-19 VACCINE (2022- SEASON) AGE 12+ YR [...] with the plan. Jese Zheng DO [address] [place] [address] documented in this encounterUniversity Hospitals Samaritan Medical Center2023 Miscellaneous Notes* Telephone Encounter - Maye Peña [...] and patient discussed patient reaching out to [facility] to see about any assistance she can provide patient with in regards to marketplace prescription insurance plan. Patient reports that she will reach out to [facility] and see if she can offer patient any guidance on marketplace prescription options. Patient has Sw direct number for her to let this Sw know what she finds out from [facility]. documented in this encounterUniversity Hospitals Samaritan Medical Center09-16-2023 Miscellaneous Notes* Telephone Encounter - Mitchel Carney [...] She may stop augmentin. Paxlovid sent to [facility]. Last lipitor dose was yesterday morning. She will hold lipitor while taking paxlovid plus 3 more days. Component Latest Ref Rng & Units 02/19/2023 eGFR >=60 mL/min/1.73m 110 documented in this encounterUniversity Hospitals Samaritan Medical Center09-15-2023 History of Present illness Narrative* Mitchel Carney [...] once daily. Oral Medication Containers (SHARPS CONTAINER) [facility] Use to collect sharps as directed. metFORMIN (GLUCOPHAGE) 1,000 mg tablet Take 1 tablet by mouth twice daily. TRULICITY 4.5 mg/0.5 mL pen injector Inject 4.5 mg subcutaneously one time a week. diclofenac (VOLTAREN ARTHRITIS PAIN) 1 % topical gel Apply 2 g to affected area four times daily. glucagon (BAQSIMI) 3 mg/actuation nasal spray Use 1 [place] in the nose as needed for low [...] daily as instructed. Dx: insulin-dependent DM Insulin Poteet, Disposable, (UNIFINE PENTIPS) 31 gauge x 3/16 [...] ROUTINE Mitchel Carney MD documented in this encounterUniversity Hospitals Samaritan Medical Center09-12-2023 Miscellaneous Notes* Telephone Encounter - Faye De Leon Ma - 04/02/2023 10:31 AM EDT Last office visit: 02/19/23 F/u scheduled: 05/27/23 Faye De Leon Ma documented in this encounterUniversity Hospitals Samaritan Medical Center09-12-2023 Miscellaneous Notes* Telephone Encounter - Faye De Leon Ma - 04/02/2023 10:30 AM EDT Last office visit: 02/19/23 F/u scheduled: 05/27/23 Faye De Leon Ma documented in this encounterUniversity Hospitals Samaritan Medical Center09-12-2023 Miscellaneous Notes* Telephone Encounter - Faye De Leon Ma - 04/02/2023 10:28 AM EDT Last office visit: 02/19/23 F/u scheduled: 05/27/23 Faye De Leon Ma documented in this encounterUniversity Hospitals Samaritan Medical Center09-05-2023 Miscellaneous Notes* Telephone Encounter - Oz Noyola LPN - 03/26/2023 10:38 AM EDT Patient phones requesting refills as follows: Requested Prescriptions Pending Prescriptions Disp Refills aspirin, enteric coated (ASPIRIN, ENTERIC COATED) 81 mg EC tablet 90 tablet 3 Sig: Take 1 tablet by mouth once daily. SHIRA 02/19/23 NOV 05/27/23 Please review and advise. Oz Noyola LPN documented in this encounterUniversity Hospitals Samaritan Medical Center08-24-2023 Miscellaneous Notes* Telephone Encounter - Scarlett Chisholm [...] with medication adjustments or needs opinion by Bulk Gas Specialist. She needs to be consistent with her [...] AM Jese Zheng DO documented in this encounterUniversity Hospitals Samaritan Medical Center08-08-2023 Miscellaneous Notes* Telephone Encounter - Antonette Kurtz [...] time Jese Zheng DO documented in this encounterUniversity Hospitals Samaritan Medical Center08-08-2023 History of Present illness Narrative* Chichi Mckeon [...] 26, 2023 8:56 AM documented in this encounterUniversity Hospitals Samaritan Medical Center08-07-2023 Miscellaneous Notes* Telephone Encounter - Kiah Aldridge LPN - 02/25/2023 9:13 AM EDT Patient phones requesting refills as follows: Requested Prescriptions Pending Prescriptions Disp Refills ibuprofen (MOTRIN) 800 mg tablet 60 tablet 1 Sig: Take 1 tablet by mouth every 8 hours as needed for Pain. Take with food. SHIRA-02/19/23 Labs-02/19/23May-05/27/23 Please review and advise. Kiah Aldridge LPN documented in this encounterUniversity Hospitals Samaritan Medical Center08-07-2023 Miscellaneous Notes* Telephone Encounter - Kiah Aldridge LPN - 02/25/2023 9:12 AM EDT Patient phones requesting refills as follows: Requested Prescriptions Pending Prescriptions Disp Refills mupirocin (BACTROBAN) 2 % ointment 66 g 2 Sig: Apply to affected area every 12 hours as needed (rash, skin lesions). [facility]-02/19/23 Labs-02/19/23May-05/27/23 Please review and advise. Kiah Aldridge LPN documented in this encounterUniversity Hospitals Samaritan Medical Center08-07-2023 Miscellaneous Notes* Telephone Encounter - Kiah Aldridge LPN - 02/25/2023 9:10 AM EDT Patient phones requesting refills as follows: Requested Prescriptions Pending Prescriptions Disp Refills gabapentin (NEURONTIN) 100 mg capsule 60 capsule 5 Sig: Take 1-2 capsules by mouth daily at bedtime for 30 days. For foot pain [facility]-02/19/23 Labs-02/19/23May-05/27/23 Please review and advise. Kiah Aldridge LPN documented [facility] this [facility]08-02-2023 History of Present illness Narrative* Jese [...] once daily. Oral Medication Containers (SHARPS CONTAINER) [facility] Use to collect sharps as directed. metFORMIN [...] (BAQSIMI) 3 mg/actuation nasal spray Use 1 [place] in the nose as needed for low [...] daily as instructed. Dx: insulin-dependent DM Insulin Poteet, Disposable, (UNIFINE PENTIPS) 31 gauge x 3/16 Use as directed 4 times daily with insulin flash glucose scanning reader (FREESTYLE MICHI 14 DAY READER) [facility] Use to test blood sugar as directed. [...] ICD9: 793.19, ICD10: R91.8 See above Jese Zehng DO To ER if develops chest pain, shortness of breath, or severe worsening of symptoms. Discussed risks, benefits, alternatives, and potential side effects of medications. Patient expressed understanding and agreed with the plan. Jese Zheng DO [address] [place] [address] documented in this encounterUniversity Hospitals Samaritan Medical Center08-01-2023 History of Present illness Narrative* Concepcion Ocampo [...] 19, 2023 1:49 PM documented in this encounterUniversity Hospitals Samaritan Medical Center07-14-2023 Miscellaneous Notes* Telephone Encounter - Gopal Flaherty [...] Provider: JESE ZHENG Ordering User: GOPAL FLAHERTY APRN.PRESS SET UP * Telephone Encounter - Pippa De La Rosa LPN - 02/01/2023 8:07 AM EDT Shira--11/08/22 Nov--01/20/23 Last refill--novolog--10/30/22 15 ml with 2 refills Calcium--08/30/22 30 with 3 refills Last labs--11/08/22 documented in this encounterUniversity Hospitals Samaritan Medical Center07-14-2023 Miscellaneous Notes* Telephone Encounter - Scarlett Chisholm Ma - 02/01/2023 11:37 AM EDT Received fax from [employer] stating sensor are approved till 04/21/23 Faxed [...] company. Scarlett Chisholm MA documented in this encounterUniversity Hospitals Samaritan Medical Center06-15-2023 Miscellaneous Notes* Telephone Encounter - Luciano Gomez MD - 01/03/2023 3:58 PM EDT OK to refill as ordered Luciano Gomez MD documented in this encounterUniversity Hospitals Samaritan Medical Center06-15-2023 History of Present illness Narrative* KAROLINA Flores - 01/03/2023 10:19 AM EDT Behavioral Health Social Work Progress Note Patient identified for [facility] from: PCP Reason for referral: Resources Behavioral Health Resources: Psychology - talk therapy [facility] encounter type: MyChart Message Attempts to Outreach: 3 attempts Referral made: Psychology - Internal, Psychology - External Psychology-Internal referral type: Therapy Psychology-External referral type: Therapy Reason for external referral: Wait times at [facility] too long, Patient choice Final Disposition: Resources given Patient Discharged?: Yes therapist sent patient [employer] follow up message offering assistance with linkage to behavioral health services. KAROLINA Flores-S January 03, 2023 documented in this encounterUniversity Hospitals Samaritan Medical Center06-08-2023 History of Present illness Narrative* Shayan Martinez [facility] - 12/27/2022 10:00 AM EDT Primary Care [...] Trulicity. Also treated for UTI 11/08: Saw [facility] for abdominal pain 11/15: Last PharmD visit; basal insulin increased HPI: States her brother was in a severe accident in mid-November, has been driving back and forth to [employer] most days. 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 Feels very [...] reports missed doses of all meds. Pharmacy: [facility] [address] [place] [address] - [address] - [phone] Rx coverage: Payor: [facility] MEDICAID / Plan: [facility] MEDICAID / Product Type: Medicaid / [...] mouth twice daily. flash glucose scanning reader (Men RockSTYLE MICHI 14 DAY READER) [facility] Use to test blood sugar as directed. flash glucose sensor (FREESTYLE MICHI 14 DAY SENSOR) kit Apply sensor to back of arm to check bloodsugars as directed. Change sensor every 2 weeks and rotate arms. gabapentin (NEURONTIN) 100 mg capsule Take 1-2 capsules by mouth daily at bedtime for 30 days. For foot pain glucagon (BAQSIMI) 3 mg/actuation nasal spray Use 1 [place] in the nose as needed for low [...] Inject 90 Units subcutaneously every morning. Insulin Poteet, Disposable, (UNIFINE PENTIPS) 31 gauge x 3/16 Use as directed 4 times daily with insulin lisinopril (ZESTRIL) 10 mg tablet Take 1 tablet by mouth once daily. metFORMIN (GLUCOPHAGE) 1,000 mg tablet Take 1 tablet by mouth twice daily. mupirocin (BACTROBAN) 2 % ointment Apply to affected area every 12 hours as needed (rash, skin lesions). Oral Medication Containers (SHARPS CONTAINER) [facility] Use to collect sharps as directed. polyethylene [...] stressors improve Advised patient to go to front counter attendant to get appt scheduled with provider to discuss depression. PharmD will reach out to PCP as FYI. Referral to social media content specialist placed to provide resources for counseling services [...] time was 40 minutes. documented in this encounterUniversity Hospitals Samaritan Medical Center06-08-2023 Miscellaneous Notes* Addendum Note - Shayan Martinez RPh - 12/27/2022 10:00 AM EDTAddended by: SHAYAN MARTINEZ on: 12/27/2022 12:44 PM Modules accepted: Orders documented in this encounterUniversity Hospitals Samaritan Medical Center05-11-2023 History of Present illness Narrative* Nathalie Rodriguez [...] TIME: PATIENT DISCHARGED TO: Ambulatory patient, left [place] department area. A Diagnostic radioactive procedure has taken place, with no further precautions necessary other than routine body substance precautions. More information regarding radiation safety can be found usingthis link: [email or web address] SIGNATURE: RT Anand(Zachariah) PATIENT NAME: Lina Isaac DATE: November 29, 2022 TIME: 1:03 PM PAGER/CONTACT #: documented in this encounterUniversity Hospitals Samaritan Medical Center05-10-2023 Miscellaneous Notes* Telephone Encounter - Fabiana Cook [...] AM EDT Called number patient had provided [phone] and spoke with Edilia Leos From [employer]. Edilia states that appeal can be filed for this. Edilia states put appeal recommended and that service was not performed. Insurance needs to know how this test would change patient's treatment plan, office notes and chest x ray results, and why was chest xray done in first place. Edilia states to fax info rmation to [phone] which is [facility] department. Chest Xray, office notes, reason why testing was ordered faxed as requested. Mariana Joy RN * Telephone Encounter - Deya Gross LPN - 11/22/2022 4:50 PM EDT Pt called back and she was given a number to call her insurance [phone] which she did and theytold her the doctors office needs to call and they will let them know what is needed regarding the CT. Please advise pt when this has been done. Deya Gross LPN * Telephone Encounter - Hayde Zhu - 11/21/2022 4:50 PM EDT Insurance reports patient will need to contact [facility] [phone] to find out the exact reason why [...] Chest. [facility]: Insurance does not know what testing provider done prior to warrant CT scan. Insurance states that they do not know what CT scan is for. Patient asking if provider can take a look at this and figure out why insurance is not covering this? Please review and advise, Mariana Joy RN documented in this encounterUniversity Hospitals Samaritan Medical Center04-27-2023 History of Present illness Narrative* Shayan Martinez, [facility] - 11/15/2022 11:30 AM EDT Images from [...] on Macrobid for suspected UTI. At last [facility] appt, patient was seen for abdominal pain. Subjective: HPI: States sugars are doing much better since rotating injection sites. Feels overall she is feeling really good. Says she is still having a chronic belly ache, is having that looked into. Will be [facility]ings[facility] in a couple of weeks. Other than [...] present Adherence: denies missed doses Pharmacy: [facility] [place] ([facility]) [facility] Affordability: no issues Diabetes supplies: [employer] System: none, lost her pill box ACTIVE [...] mouth once daily. taking blood sugar diagnostic ([employer] JEREMI[employer] STRIPS) test strip Use to [...] scanning reader (FREESTYLE MICHI 14 DAY READER) [facility] Use to test blood sugar as directed. [...] (BAQSIMI) 3 mg/actuation nasal spray Use 1 [place] in the nose as needed for low [...] 80 Units subcutaneously every morning. taking Insulin Poteet, Disposable, (UNIFINE PENTIPS) 31 gauge x 3/16 [...] PRN use Oral Medication Containers (SHARPS CONTAINER) [facility] Use to collect sharps as directed. peg [...] verbalized understanding of instructions. Shayan Martinez PharmD, [facility] Primary Care Clinical Pharmacist The majority of the pharmacy visit (> 50%) was spent counseling and/or coordinating care for thepatient. interaction: face to face time was 30 minutes. documented in this encounterUniversity Hospitals Samaritan Medical Center04-27-2023 Instructions* Patient Instructions* Shayan Martinez RPh - 11/15/2022 11:30 AM EDT Please start scanning your sensor more frequently. Scan when you wake up, several times during the middle of the day, and at bedtime. INCREASE Tresiba to 90 units daily. If you start having low blood sugars, CALL the pharmacist to help with insulin dose reduction. documented in this encounterUniversity Hospitals Samaritan Medical Center04-20-2023 History of Present illness Narrative* Concepcion Ocampo, [...] 08, 2022 2:34 PM documented in this encounterUniversity Hospitals Samaritan Medical Center04-20-2023 History of Present illness Narrative* Keli Ruffin [...] 08, 2022 2:39 PM documented in this encounterUniversity Hospitals Samaritan Medical Center04-20-2023 Instructions* Patient Instructions* Ankita Green APRN.CNP - 11/08/2022 1:24 PM EDT Schedule your ultrasound and hida scan. Have your labs drawn. Have your chest xray done. documented in this encounterUniversity Hospitals Samaritan Medical Center04-20-2023 History of Present illness Narrative* Ankita Green [...] time only. Oral Medication Containers (SHARPS CONTAINER) [facility] Use to [place] sharps as directed. Calcium [...] (BAQSIMI) 3 mg/actuation nasal spray Use 1 [place] in the nose as needed for low [...] daily as instructed. Dx: insulin-dependent DM Insulin Poteet, Disposable, (UNIFINE PENTIPS) 31 gauge x 3/16 Use as directed 4 times daily with insulin flash glucose scanning reader (Men RockSTYLE MICHI 14 DAY READER) [facility] Use to test blood sugar as directed. [...] pain - ICD9: 789.01, ICD10: R10.11 - [place] low residue diet - US ABD RIGHT [...] D-DIMER Ankita Green APRN.CARLITOS documented in this encounterUniversity Hospitals Samaritan Medical Center03-30-2023 Miscellaneous Notes* Telephone Encounter - Marci Koch RN - 10/18/2022 11:58 AM EDT Left voicemail for Lina to please call and reschedule her visit with Dr. Ramirez to next week. Dr. Ramirez was called away for an emergency surgery. Marci Koch RN documented in this encounterUniversity Hospitals Samaritan Medical Center03-30-2023 Instructions* Patient Instructions* Radha Baron APRN.CARLITOS - [...] Discussed expected course of illness Radha Baron APRN.[facility] PATIENT INFO BLADDER INFECTION [...] actually have an infection. documented in this encounterUniversity Hospitals Samaritan Medical Center03-30-2023 History of Present illness Narrative* Radha Baron [...] time only. Oral Medication Containers (SHARPS CONTAINER) [facility] [place] to collect sharps as directed. Calcium [...] (BAQSIMI) 3 mg/actuation nasal spray Use 1 [place] in the nose as needed for low [...] For wheezing/shortness of breath. blood sugar diagnostic (Men [employer] PRECISION JEREMIAS STRIPS) test strip Use to test blood sugar up to twice daily as instructed. Dx: insulin-dependent DM Insulin Poteet, Disposable, (UNIFINE PENTIPS) 31 gauge x 3/16 Use as directed 4 times daily with insulin flash glucose scanning reader (FREESTYLE MICHI 14 DAY READER) [facility] Use to test blood sugar as directed. [...] illness Radha Baron APRN.CARLITOS documented in this encounterUniversity Hospitals Samaritan Medical Center03-30-2023 History of Present illness Narrative* Shayan Martinez, [facility] ED - 10/18/2022 9:00 AM EDT Images from [...] changes so dietary modifications encouraged. At last PRESS SET UP appt, patient seen for influenza concerns. At [...] since 10/05 due to lows Pharmacy: [facility] [place] (med syn) [facility] Affordability: no issues Diabetes supplies: [email or web address] Organization System: none, lost her pill box [...] by mouth once daily. blood sugar diagnostic (Men RockSTYLE PRECISION JEREMIAS STRIPS) test strip Use to [...] mouth twice daily. flash glucose scanning reader (Men RockSTYLE MICHI 14 DAY READER) [facility] Use to test blood sugar as directed. flash glucose sensor (FREESTYLE MICHI 14 DAY SENSOR) kit Apply sensor to back of arm to check bloodsugars as directed. Change sensor every 2 weeks and rotate arms. gabapentin (NEURONTIN) 100 mg capsule Take 1-2 capsules by mouth daily at bedtime for 30 days. For foot pain glucagon (BAQSIMI) 3 mg/actuation nasal spray Use 1 [place] in the nose as needed for low [...] Inject 116 Units subcutaneously every morning. Insulin Poteet, Disposable, (UNIFINE PENTIPS) 31 gauge x 3/16 Use as directed 4 times daily with insulin lisinopril (ZESTRIL) 10 mg tablet Take 1 tablet by mouth once daily. metFORMIN (GLUCOPHAGE) 1,000 mg tablet Take 1 tablet by mouth twice daily. mupirocin (BACTROBAN) 2 % ointment Apply to affected area every 12 hours as needed (rash, skin lesions). Oral Medication Containers (SHARPS CONTAINER) [facility] [place] to collect sharps as directed. peg [...] verbalized understanding of instructions. Shayan Martinez PharmD, [facility] Primary Care Clinical Pharmacist The majority of the pharmacy visit (> 50%) was spent counseling and/or coordinating care for thepatient. interaction: face to face time was 15 minutes. * Shayan Martinez RPh - 10/18/2022 9:00 AM EDT [facility], spoke with pharmacist who said Trulicity was in stock and would get med filled today. [facility] called patient back and informed her to burr picker medication later today or this week. Shayan Martinez PharmD, [facility] Primary Care Clinical Pharmacist documented in this encounterUniversity Hospitals Samaritan Medical Center03-30-2023 Instructions* Patient Instructions* Shayan Martinez RPh - 10/18/2022 9:00 AM EDT RESTART your insulins. Take Tresiba 80 units once daily. Take Novolog 10 units + sliding scale up to three times daily with meals. Scan your CGM reader more frequently. Go to urgent care now for your back pain. documented in this encounterUniversity Hospitals Samaritan Medical Center03-13-2023 Miscellaneous Notes* Telephone Encounter - Fabiana Cook [...] you. Fabiana Cook LPN documented in this encounterUniversity Hospitals Samaritan Medical Center03-08-2023 Miscellaneous Notes* Telephone Encounter - Pippa De La Rosa LPN - 09/26/2022 1:23 PM EST Shira--07/24/22 Nov--11/05/22 Last refill--09/29/21 90 with 3 refills Last labs--07/24/22 documented in this encounterUniversity Hospitals Samaritan Medical Center02-27-2023 NoteHNO ID: [id number] Author: Olya Garcia RN Service: Nursing Author Type: Registered Nurse Type: Nursing Progress Note Filed: 09/17/2022 8:36 AM Note Text: Pre op blood sugar 326. Dr. Salmon aware. 4 units regular insulin ordered.[facility] [id number] Miscellaneous Notes* Telephone Encounter - Shayan Martinez RPh - 09/13/2022 10:03 AM EST During PharmD visit today, patient stated she needed a new sharps container. Order pended for PCP'ssignature. Requested Prescriptions Pending Prescriptions Disp Refills Oral Medication Containers (SHARPS CONTAINER) misc 1 Each 0 Sig: Use to collect sharps as directed. Shayan Martinez RPh documented in this encounterUniversity Hospitals Samaritan Medical Center02-23-2023 History of Present illness Narrative* Shayan Martinez [...] changes so dietary modifications encouraged. At last PRESS SET UP appt, patient seen for influenza concerns. At last PCP appt, gabapentin was started for neuropathy. Subjective: HPI: States she has 6 doctor's appt today. Forgot [employer] Michi. States sugars are reasonable but tend [...] present Adherence: denies missed doses Pharmacy: [facility] Affordability: no issues Diabetes supplies: [employer] System: none, lost her pill box ACTIVE [...] by mouth once daily. blood sugar diagnostic ([employer] PRECISION JEREMIAS STRIPS) test strip Use to [...] mouth twice daily. flash glucose scanning reader ([employer] MICHI 14 DAY READER) misc Use to [...] (BAQSIMI) 3 mg/actuation nasal spray Use 1 [place] in the nose as needed for low [...] Inject 102 Units subcutaneously every morning. Insulin Poteet, Disposable, (UNIFINE PENTIPS) 31 gauge x 3/16 [...] verbalized understanding of instructions. Shayan Martinez PharmD, [facility] Primary Care Clinical Pharmacist The majority of the pharmacy visit (> 50%) was spent counseling and/or coordinating care for thepatient. interaction: face to face time was 40 minutes. documented in this encounterUniversity Hospitals Samaritan Medical Center02-23-2023 Instructions* Patient Instructions* Shayan Martinez RPh - [...] CONTINUE all other medication. documented in this encounterUniversity Hospitals Samaritan Medical Center02-17-2023 Miscellaneous Notes* Letter - Mammography Coordinator - 09/07/2022 1:18 PM EST September 10, 2022 PID: [id number] Lina Isaac [address] [place] [address] Dear Ms. Isaac, We are pleased to [...] report will be kept on file at [facility] as part of your permanent medical record and are available for your continuing care. Thank you for allowing us to help in meeting your health care needs. Sincerely, Dr. Hinojosa Interpreting Radiologist [facility] (Normal over 40) documented in this encounterUniversity Hospitals Samaritan Medical Center02-16-2023 History of Present illness Narrative* Emma Louis [...] 06, 2022 11:03 AM documented in this [facility]02-09-2023 Miscellaneous Notes* Telephone Encounter - Kiah [...] advise. Kiah Aldridge LPN documented in this [facility]02-08-2023 Miscellaneous Notes* Telephone Encounter - Digna Roberts RN - 08/29/2022 11:16 AM EST Pt called in and was asking to have her work excuses printed from when she had Covid last year. Printed letters and brought to medical records for Pt. documented in this encounterUniversity Hospitals Samaritan Medical Center01-16-2023 Miscellaneous Notes* Telephone Encounter - Pippa De La Rosa LPN - 08/06/2022 11:02 AM EST Shira--07/24/22 Nov--11/05/22 Last refill--03/22/22 6 each with 11 refills Last labs--07/24/22 documented in this encounterUniversity Hospitals Samaritan Medical Center01-16-2023 Miscellaneous Notes* Telephone Encounter - Pippa De La Rosa LPN - 08/06/2022 10:12 AM EST Shira--07/24/22 Nov--11/05/22 Last refill--10/25/21 60 with 3 Last labs--07/24/22 documented in this encounterUniversity Hospitals Samaritan Medical Center01-06-2023 Miscellaneous Notes* Telephone Encounter - Faye De Leon Ma - 07/27/2022 1:54 PM EST Last office visit: 07/24/22 F/u scheduled: 11/05/22 Faye De Leon Ma documented in this encounterUniversity Hospitals Samaritan Medical Center01-06-2023 Miscellaneous Notes* Telephone Encounter - Faye De Leon Ma - 07/27/2022 1:53 PM EST Last office visit: 07/24/22 F/u scheduled: 11/05/22 Faye De Leon Ma documented in this encounterUniversity Hospitals Samaritan Medical Center01-03-2023 History of Present illness Narrative* Jese Zheng, [...] (BAQSIMI) 3 mg/actuation nasal spray Use 1 [place] in the nose as needed for low [...] daily as instructed. Dx: insulin-dependent DM Insulin Poteet, Disposable, (UNIFINE PENTIPS) 31 gauge x 3/16 Use as directed 4 times daily with insulin flash glucose scanning reader (FREESTYLE MICHI 14 DAY READER) [facility] Use to test blood sugar as directed. [...] gabapentin at bedtime for foot pain, sees pipe welder regularly - GABAPENTIN 100 MG CAPSULE 7. [...] agreed with the plan. Jese Zheng DO [address] [place] [address] documented in this encounterUniversity Hospitals Samaritan Medical Center12-19-2022 Miscellaneous Notes* Telephone Encounter - Fabiana Cook [...] you. Fabiana Cook LPN documented in this encounterUniversity Hospitals Samaritan Medical Center12-09-2022 Miscellaneous Notes* Telephone Encounter - Fabiana Cook [...] you. Fabiana Cook LPN documented in this encounterUniversity Hospitals Samaritan Medical Center12-05-2022 History of Present illness Narrative* Ankita Green APRN.PRESS SET UP - 06/25/2022 10:40 AM EST VIRTUAL VISIT PROGRESS NOTE This is a virtual visit using [employer]/LBR video visit. It required patient-provider interaction for [...] (BAQSIMI) 3 mg/actuation nasal spray Use 1 [place] in the nose as needed for low [...] Units subcutaneously every morning. flash glucose sensor ([employer] MICHI 14 DAY SENSOR) kit Apply sensor [...] For wheezing/shortness of breath. blood sugar diagnostic (Men RockSTYLE PRECISION JEREMIAS STRIPS) test strip Use to test blood sugar up to twice daily as instructed. Dx: insulin-dependent DM Insulin Poteet, Disposable, (UNIFINE PENTIPS) 31 gauge x 3/16 Use as directed 4 times daily with insulin flash glucose scanning reader (FREESTYLE MICHI 14 DAY READER) [facility] Use to test blood sugar as directed. [...] was identified. 06/25/2022 by Ankita Green CNP. nAkita Green APRN.PRESS SET UP documented in this encounterUniversity Hospitals Samaritan Medical Center12-01-2022 History of Present illness Narrative* Shayan Juan, [facility] ED - 06/21/2022 9:00 AM EST Images from [...] PCP appt, no med changes made. At PRESS SET UP visit on 05/21, patientwas seen for lower back pain. Subjective: HPI: Here today with grandchildren (4 mo and 16 mo), slightly distracted during visit. 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 Reports [...] present Adherence: denies missed doses Pharmacy: [facility] in [place] (med sync) Rx coverage: [facility] Affordability: no issues Diabetes supplies: [employer] System: none, lost her pill box ACTIVE [...] scanning reader (FREESTYLE MICHI 14 DAY READER) [facility] Use to test blood sugar as directed. flash glucose sensor (FREESTYLE MICHI 14 DAY SENSOR) kit Apply sensor to back of arm to check bloodsugars as directed. Change sensor every 2 weeks and rotate arms. glucagon (BAQSIMI) 3 mg/actuation nasal spray Use 1 [place] in the nose as needed for low [...] Inject 102 Units subcutaneously every morning. Insulin Poteet, Disposable, (UNIFINE PENTIPS) 31 gauge x 3/16 [...] Stressed the importance of BG control on detention health and longevity Encouraged trying to get [...] 1/12/23. Patient verbalized understanding of instructions. Shayan La Honda, PharmD, [facility] Primary Care Clinical Pharmacist The majority of the pharmacy visit (> 50%) was spent counseling and/or coordinating care for thepatient. interaction: face to face time was 20 minutes. documented in this encounterUniversity Hospitals Samaritan Medical Center11-09-2022 Miscellaneous Notes* Telephone Encounter - Shayan Martinez RPh - 05/30/2022 10:08 AM EST Patient cancelled PharmD appt on 05/24. PharmD called to reschedule. Spoke with patient and rescheduled for tomorrow at 2 PM. Shayan Martinez PharmD, [facility] Primary Care Clinical Pharmacist documented in this encounterUniversity Hospitals Samaritan Medical Center11-08-2022 Instructions* Patient Instructions* Brandy Ramirez MD - [...] If you do not have a responsible interstate bus driver (family member or friend) with [...] your exam. 2 06/2019 documented in this encounterUniversity Hospitals Samaritan Medical Center11-08-2022 History of Present illness Narrative* Brandy Ramirez [...] (BAQSIMI) 3 mg/actuation nasal spray Use 1 [place] in the nose as needed for low [...] For wheezing/shortness of breath. blood sugar diagnostic (Men RockSTYLE PRECISION JEREMIAS STRIPS) test strip Use to test blood sugar up to twice daily as instructed. Dx: insulin-dependent DM Insulin Poteet, Disposable, (UNIFINE PENTIPS) 31 gauge x 3/16 Use as directed 4 times daily with insulin flash glucose scanning reader (Men RockSTYLE MICHI 14 DAY READER) [facility] Use to test blood sugar as directed. [...] completed. Brandy Ramirez MD documented in this encounterUniversity Hospitals Samaritan Medical Center11-03-2022 History of Present illness Narrative* Chichi Mckeon, [...] 24, 2022 3:47 PM documented in this encounterUniversity Hospitals Samaritan Medical Center10-31-2022 History of Present illness Narrative* Ankita Green [...] history is provided by the patient. No spray machine tender was used. HPI Lina Isaac is a [...] URINE (POC) - URINE CULTURE Kanwal Campbell APRN.PRESS SET UP Today: Right side flank that comes around [...] (BAQSIMI) 3 mg/actuation nasal spray Use 1 [place] in the nose as needed for low [...] Units subcutaneously every morning. flash glucose sensor (Men RockSTYLE MICHI 14 DAY SENSOR) kit Apply sensor [...] daily as instructed. Dx: insulin-dependent DM Insulin Poteet, Disposable, (UNIFINE PENTIPS) 31 gauge x 3/16 Use as directed 4 times daily with insulin flash glucose scanning reader (Men RockSTYLE MICHI 14 DAY READER) [facility] Use to test blood sugar as directed. [...] PROCEDURE) Ankita Green APRN.CARLITOS documented in this encounterUniversity Hospitals Samaritan Medical Center10-30-2022 History of Present illness Narrative* Kanwal Campbell APRN.CNP - 05/20/2022 8:39 AM EDT Images from the original note were not included. Subjective The history is provided by the patient. No spray machine tender was used. NARCISA Isaac is a 56 [...] URINE (POC) - URINE CULTURE Kanwal Campbell APRN.PRESS SET UP documented in this encounterUniversity Hospitals Samaritan Medical Center10-12-2022 Miscellaneous Notes* Telephone Encounter - Yoly Mejia [...] scale. TDD 84 units/day. documented in this encounterUniversity Hospitals Samaritan Medical Center10-12-2022 Miscellaneous Notes* Telephone Encounter - Pippa De La Rosa LPN - 05/02/2022 11:54 AM EDT Shira--04/27/22 Nov-07/24/2022 Last refill--07/06/21 25 pens with 3 refills Last labs--04/27/22 documented in this encounterUniversity Hospitals Samaritan Medical Center10-07-2022 History of Present illness Narrative* Jese Zheng, [...] (BAQSIMI) 3 mg/actuation nasal spray Use 1 [place] in the nose as needed for low [...] daily as instructed. Dx: insulin-dependent DM Insulin Poteet, Disposable, (UNIFINE PENTIPS) 31 gauge x 3/16 Use as directed 4 times daily with insulin flash glucose scanning reader (FREESTYLE MICHI 14 DAY READER) [facility] Use to test blood sugar as directed. [...] Lymph% 04/25/2022 45.8 Abs Lymph 04/25/2022 2.54 [place]% 04/25/2022 7.8 Abs [place] 04/25/2022 0.43 Eosin% 04/25/2022 2.9 Abs Eosin [...] BASIC Jese Zheng DO documented in this encounterUniversity Hospitals Samaritan Medical Center10-05-2022 History of Present illness Narrative* RT Jamison(R) [...] 25, 2022 10:10 AM documented in this encounterUniversity Hospitals Samaritan Medical Center09-01-2022 Miscellaneous Notes* Telephone Encounter - Deya Gross [...] you. Deya Gross LPN documented in this encounterUniversity Hospitals Samaritan Medical Center08-15-2022 Miscellaneous Notes* Telephone Encounter - Bettina Curiel [...] 03/06/2022 Last refill: 09/2021 documented in this encounterUniversity Hospitals Samaritan Medical Center07-21-2022 History of Present illness Narrative* Shayan Martinez, [facility] ED - 02/08/2022 9:30 AM EDT Images from [...] in February at upcoming appt. 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 flash glucose sensor (FREESTYLE MICHI 14 DAY SENSOR) kit Apply sensor to back of arm to check bloodsugars as directed. Change sensor every 2 weeks and rotate arms. glucagon (BAQSIMI) 3 mg/actuation nasal spray Use 1 [place] in the nose as needed for low [...] Inject 78 Units subcutaneously once daily. Insulin Poteet, Disposable, (UNIFINE PENTIPS) 31 gauge x 3/16 Use as directed 4 times daily with insulin lisinopril (ZESTRIL, PRINIVIL) 10 mg tablet Take 1 tablet by mouth once daily. metFORMIN (GLUCOPHAGE) 1,000 mg tablet Take 1 tablet by mouth twice daily. mupirocin (BACTROBAN) 2 % ointment Apply to affected area. Oral Medication Containers (BD SHARPS EXECUTIVE ASSISTANT TO PRESIDENT) misc Use as instructed for DM supply [...] verbalized understanding of instructions. Shayan Martinez PharmD, [facility] Primary Care Clinical Pharmacist Eloise Casillas [facility] The majority of the pharmacy visit (> 50%) was spent counseling and/or coordinating care for thepatient. interaction: face to face time was 55 minutes. documented in this encounterUniversity Hospitals Samaritan Medical Center07-21-2022 Instructions* Patient Instructions* Shayan Martinez RPh - [...] on your arm and start using your [employer] Michi again. Talk to Dr. Zheng about your mood and possibly seeing a counselor. Bring all of your medications and pill bottles to your next appointment with [facility]. TAKE TIME FOR YOURSELF!!!! You need to take care of yourself so that you can be your best to take care of other. documented in this encounterUniversity Hospitals Samaritan Medical Center07-07-2022 Miscellaneous Notes* Telephone Encounter - Shayan Martinez RPh - 01/25/2022 9:13 AM EDT No show for PharmD visit today. LMOM to return call to office to reschedule. Shayan Martinez PharmD, BCPS Primary Care Clinical Pharmacist Eloise Casillas [facility] documented in this encounterUniversity Hospitals Samaritan Medical Center06-14-2022 Miscellaneous Notes* Telephone Encounter - Indu Petty Ma - 01/02/2022 8:22 AM EDT Pt sent [employer] message notifying her of results. If questions [...] her foot. Would recommend follow up with Detective Supervisor Jese Zheng DO documented in this encounterUniversity Hospitals Samaritan Medical Center06-13-2022 Miscellaneous Notes* Telephone Encounter - Fabiana Cook [...] body. IMPRESSION: No acute abnormality. Will await pipe welder opinion and further imaging Jese Zheng DO documented in this encounterUniversity Hospitals Samaritan Medical Center06-11-2022 History of Present illness Narrative* Akira Rendon [...] 30, 2021 10:22 AM documented in this encounterUniversity Hospitals Samaritan Medical Center06-11-2022 History of Present illness Narrative* Jese Zheng [...] (BAQSIMI) 3 mg/actuation nasal spray Use 1 [place] in the nose as needed for low [...] daily as instructed. Dx: insulin-dependent DM Insulin Poteet, Disposable, (UNIFINE PENTIPS) 31 gauge x 3/16 Use as directed 4 times daily with insulin flash glucose scanning reader (FREESTYLE MICHI 14 DAY READER) [facility] Use to test blood sugar as directed. albuterol (PROVENTIL) 2.5 mg /3 mL (0.083 %) nebulizer solution Use 3 mL via nebulizer every 4 hours as needed for Wheezing/Shortness of Breath. Use over 5-15minutes. blood sugar diagnostic (FREESTYLE LITE STRIPS) test strip Test blood glucose three times daily as instructed. E11.9, E66.9 UNILET SUPER THIN LANCETS [address] [facility] Test blood sugar once daily. Blood-Glucose Meter (FREESTYLE LITE METER) monitoring kit Freestyle LITE Meter Kit - glucose 4 gram chewable tablet Take 4 tablets by mouth as needed. For blood sugars less than 70 Oral Medication Containers (BD SHARPS EXECUTIVE ASSISTANT TO PRESIDENT) misc Use as instructed for DM supply [...] and CT foot and follow up with Detective Supervisor STEPHANIE, will go to EMERGENCY DEPARTMENT if [...] and CT foot and follow up with Detective Supervisor STEPHANIE, will go to EMERGENCY DEPARTMENT if [...] and CT foot and follow up with Detective Supervisor STEPHANIE, will go to EMERGENCY DEPARTMENT if [...] and CT foot and follow up with Detective Supervisor STEPHANIE, will go to EMERGENCY DEPARTMENT if [...] and CT foot and follow up with Detective Supervisor STEPHANIE, will go to EMERGENCY DEPARTMENT if [...] See patient instructions. Jese Zheng DO [address] [place] [address] documented in this encounterUniversity Hospitals Samaritan Medical Center06-11-2022 Instructions* Patient Instructions* Jese Zheng DO - 12/30/2021 10:[address] Elena Cano Detective Supervisor Address: [address] [place] [id number] documented in this encounterUniversity Hospitals Samaritan Medical Center06-09-2022 Miscellaneous Notes* Telephone Encounter - Scarlett Chisholm [...] Patientasking if antibiotic needs changed? Patient uses [facility] for her pharmacy. Patient is concerned since [...] advise, Aspen Almaguer RN documented in this encounterUniversity Hospitals Samaritan Medical Center06-03-2022 Miscellaneous Notes* Telephone Encounter - Ankita Green APRN.CNP - 12/22/2021 7:24 AM EDT New order placed for diabetes education. I noted in the comments that she is known to Shayan, and this is just an insurance request to be updated. Ankita Green APRN.CNP * Telephone Encounter - Roxy Christine RN - 12/21/2021 4:51 PM EDT [facility] Airconditioning Drafting Officer was not very specific. Patient had an [...] her insurance is requesting. Shayan Martinez PharmD, [facility] Primary Care Clinical Pharmacist Eloise Casillas [facility] * Telephone Encounter - Roxy Christine RN - 12/21/2021 3:45 PM EDT Elliot, Airconditioning Drafting Officer @ [facility] calling to request order for Consult to Diabetic Education for patient. Roxy Christine RN documented in this encounterUniversity Hospitals Samar[facility] Center06-02-2022 Miscellaneous Notes* Telephone Encounter - Shayan Martinez RPh - 12/21/2021 10:06 AM EDT A1c returned elevated but improved from July. PharmD called patient and relayed info. Requested f/up appt with PharmD for DM mngt - scheduled appt for 01/04 and requested patient to bring in CGM for interpretation. Patient agreed. Shayan Martinez PharmD, [facility] Primary Care Clinical Pharmacist Angy [facility] documented in this encounterUniversity Hospitals Samaritan Medical Center06-01-2022 Instructions* Patient Instructions* Ankita Green APRN.PRESS SET UP - 12/20/2021 9:44 AM EDT If within a week things are not improving or are getting worse, we need to see you in the office again. Start your doxycycline antibiotic, twice daily. If you're able to pick it up this morning, go aheadand take it twice today. documented in this encounterUniversity Hospitals Samaritan Medical Center06-01-2022 History of Present illness Narrative* Ankita Green [...] (BAQSIMI) 3 mg/actuation nasal spray Use 1 [place] in the nose as needed for low [...] daily as instructed. Dx: insulin-dependent DM Insulin Poteet, Disposable, (UNIFINE PENTIPS) 31 gauge x 3/16 Use as directed 4 times daily with insulin flash glucose scanning reader (FREESTYLE MICHI 14 DAY READER) [facility] Use to test blood sugar as directed. [...] than 70 Oral Medication Containers (BD SHARPS EXECUTIVE ASSISTANT TO PRESIDENT) misc Use as instructed for DM supply [...] TABLET Ankita Green APRN.CARLITOS documented in this encounterUniversity Hospitals Samaritan Medical Center05-02-2022 Miscellaneous Notes* Telephone Encounter - Hayde Duckworth Ma - 11/20/2021 7:19 AM EDT Please see pt message. Sx are not improving. Consult to ortho pended, please advise. Hayde Duckworth Ma documented in this encounterUniversity Hospitals Samaritan Medical Center04-27-2022 Miscellaneous Notes* Telephone Encounter - Pippa De La Rosa LPN - 11/15/2021 9:48 AM EDT Left detailed message to remind pt of labs. * Telephone Encounter - Jese Zheng DO - 11/15/2021 7:25 AM EDT Please call patient to remind her to have her labs drawn fasting Jese Zheng DO documented in this encounterUniversity Hospitals Samaritan Medical Center04-26-2022 History of Present illness Narrative* Concepcion Ocampo [...] 14, 2021 10:57 AM documented in this encounterUniversity Hospitals Samaritan Medical Center04-26-2022 History of Present illness Narrative* Jese Zheng [...] (BAQSIMI) 3 mg/actuation nasal spray Use 1 [place] in the nose as needed for low [...] daily as instructed. Dx: insulin-dependent DM Insulin Poteet, Disposable, (UNIFINE PENTIPS) 31 gauge x 3/16 Use as directed 4 times daily with insulin flash glucose scanning reader (FREESTYLE MICHI 14 DAY READER) [facility] Use to test blood sugar as directed. albuterol (PROVENTIL) 2.5 mg /3 mL (0.083 %) nebulizer solution Use 3 mL via nebulizer every 4 hours as needed for Wheezing/Shortness of Breath. Use over 5-15minutes. blood sugar diagnostic (FREESTYLE LITE STRIPS) test strip Test blood glucose three times daily as instructed. E11.9, E66.9 UNILET SUPER THIN LANCETS 30 gauge [facility] Test blood sugar once daily. Blood-Glucose Meter (FREESTYLE LITE METER) monitoring kit Freestyle LITE Meter Kit - glucose 4 gram chewable tablet Take 4 tablets by mouth as needed. For blood sugars less than 70 Oral Medication Containers (BD SHARPS EXECUTIVE ASSISTANT TO PRESIDENT) [facility] Use as instructed for DM supply disposal [...] agreed with the plan. Jese Zheng DO [address] [id number] documented in this encounterUniversity Hospitals Samaritan Medical Center04-26-2022 Instructions* Patient Instructions* Jese Zheng DO - [...] Follow up with Orthopedics documented in this encounterUniversity Hospitals Samaritan Medical Center04-11-2022 Miscellaneous Notes* Telephone Encounter - Antonette Kurtz LPN - 10/30/2021 1:17 PM EDT Patient calling asking for refills of medications that pharmacy is telling has no more refills on her [employer] program. Computer shows these have not been [...] you. Antonette Kurtz LPN documented in this encounterUniversity Hospitals Samaritan Medical Center03-30-2022 History of Present illness Narrative* Chichi Pickard, [...] 18, 2021 3:44 PM documented in this encounterUniversity Hospitals Samaritan Medical Center03-29-2022 Miscellaneous Notes* Telephone Encounter - Scarlett MARTINEZ - 10/17/2021 10:15 AM EDT Upon checking, patient's referral through [facility] was Authorized and I called the [...] advise. Marci Koch RN documented in this encounterUniversity Hospitals Samaritan Medical Center03-25-2022 History of Present illness Narrative* Jese Zheng [...] (BAQSIMI) 3 mg/actuation nasal spray Use 1 [place] in the nose as needed for low [...] area four times daily. blood sugar diagnostic (Men RockSTYLE PRECISION JEREMIAS STRIPS) test strip Use to test blood sugar up to twice daily as instructed. Dx: insulin-dependent DM famotidine (PEPCID) 20 mg tablet Take 1 tablet by mouth twice daily. Insulin Poteet, Disposable, (UNIFINE PENTIPS) 31 gauge x 3/16 Use as directed 4 times daily with insulin flash glucose scanning reader (FREESTYLE MICHI 14 DAY READER) [facility] Use to test blood sugar as directed. [...] than 70 Oral Medication Containers (BD SHARPS EXECUTIVE ASSISTANT TO PRESIDENT) [facility] Use as instructed for DM supply disposal [...] agreed with the plan. Jese Zheng DO [address] [place] [address] documented in this encounterUniversity Hospitals Samaritan Medical Center03-15-2022 History of Past illness Narrative* Problem Noted [...] of this encounter (statuses as of 12/20/2021) [facility]03-15-[facility] History of Past illness Narrative* Problem Noted [...] of this encounter (statuses as of 12/21/2021) [facility]03[facility] History of Past illness Narrative* Problem Noted [...] of this encounter (statuses as of 12/23/2021) [facility]03[facility] History of Past illness Narrative* Problem Noted [...] of this encounter (statuses as of 12/26/2021) [facility]03[facility] History of Past illness Narrative* Problem Noted [...] of this encounter (statuses as of 12/28/2021) [facility]03[facility] History of Past illness Narrative* Problem Noted [...] of this encounter (statuses as of 12/30/2021) [facility]03[facility] History of Past illness Narrative* Problem Noted [...] of this encounter (statuses as of 01/01/2022) [facility]03[facility] History of Past illness Narrative* Problem Noted [...] of this encounter (statuses as of 01/02/2022) [facility]03[facility] History of Past illness Narrative* Problem Noted [...] of this encounter (statuses as of 01/25/2022) [facility] History of Past illness Narrative* Problem Noted [...] of this encounter (statuses as of 02/08/2022) [facility]03[facility] History of Past illness Narrative* Problem Noted [...] of this encounter (statuses as of 03/05/2022) [facility]03[facility] History of Past illness Narrative* Problem Noted [...] of this encounter (statuses as of 03/22/2022) [facility] History of Past illness Narrative* Problem Noted [...] of this encounter (statuses as of 04/26/2022) [facility] History of Past illness Narrative* Problem Noted [...] of this encounter (statuses as of 04/27/2022) [facility] of Past illness Narrative* Problem Noted [...] of this encounter (statuses as of 05/02/2022) [facility] of Past illness Narrative* Problem Noted [...] of this encounter (statuses as of 05/02/2022) [facility] of Past illness Narrative* Problem Noted [...] of this encounter (statuses as of 05/20/2022) [facility] of Past illness Narrative* Problem Noted [...] of this encounter (statuses as of 05/23/2022) [facility] of Past illness Narrative* Problem Noted [...] of this encounter (statuses as of 05/30/2022) [facility] of Past illness Narrative* Problem Noted [...] of this encounter (statuses as of 05/30/2022) [facility] of Past illness Narrative* Problem Noted [...] of this encounter (statuses as of 06/21/2022) [facility] of Past illness Narrative* Problem Noted [...] of this encounter (statuses as of 06/25/2022) [facility] of Past illness Narrative* Problem Noted [...] of this encounter (statuses as of 06/29/2022) [facility] of Past illness Narrative* Problem Noted [...] of this encounter (statuses as of 07/13/2022) [facility] of Past illness Narrative* Problem Noted [...] of this encounter (statuses as of 07/26/2022) [facility] of Past illness Narrative* Problem Noted [...] of this encounter (statuses as of 07/30/2022) [facility] of Past illness Narrative* Problem Noted [...] of this encounter (statuses as of 07/30/2022) [facility] Past illness Narrative* Problem Noted [...] of this encounter (statuses as of 08/06/2022) [facility] Past illness Narrative* Problem Noted [...] of this encounter (statuses as of 08/06/2022) [facility] Past illness Narrative* Problem Noted [...] of this encounter (statuses as of 08/29/2022) [facility] illness Narrative* Problem Noted [...] of this encounter (statuses as of 08/30/2022) [facility] Past illness Narrative* Problem Noted [...] of this encounter (statuses as of 09/11/2022) [facility] illness Narrative* Problem Noted [...] of this encounter (statuses as of 09/13/2022) [facility] Narrative* Problem Noted [...] of this encounter (statuses as of 09/13/2022) [facility] Narrative* Problem Noted [...] of this encounter (statuses as of 09/27/2022) [facility] Narrative* Problem Noted [...] of this encounter (statuses as of 10/01/2022) [facility] Narrative* Problem Noted [...] of this encounter (statuses as of 10/18/2022) [facility] Narrative* Problem Noted [...] of this encounter (statuses as of 10/18/2022) [facility] Narrative* Problem Noted [...] of this encounter (statuses as of 10/30/2022) [facility] Narrative* Problem Noted [...] of this encounter (statuses as of 11/15/2022) [facility] Narrative* Problem Noted [...] of this encounter (statuses as of 11/16/2022) [facility] Narrative* Problem Noted [...] of this encounter (statuses as of 12/01/2022) [facility] Narrative* Problem Noted [...] of this encounter (statuses as of 12/27/2022) [facility] Narrative* Problem Noted [...] of this encounter (statuses as of 01/03/2023) [facility] Narrative* Problem Noted [...] of this encounter (statuses as of 01/04/2023) [facility] Narrative* Problem Noted [...] of this encounter (statuses as of 02/01/2023) [facility] Narrative* Problem Noted [...] of this encounter (statuses as of 02/01/2023) [facility] Narrative* Problem Noted [...] of this encounter (statuses as of 02/21/2023) [facility] Narrative* Problem Noted [...] of this encounter (statuses as of 02/25/2023) [facility] Narrative* Problem Noted [...] of this encounter (statuses as of 02/25/2023) [facility] Narrative* Problem Noted [...] of this encounter (statuses as of 02/27/2023) [facility] Narrative* Problem Noted [...] of this encounter (statuses as of 03/14/2023) [facility] Narrative* Problem Noted [...] of this encounter (statuses as of 03/26/2023) [facility] Narrative* Problem Noted [...] of this encounter (statuses as of 03/26/2023) [facility] Narrative* Problem Noted [...] of this encounter (statuses as of 04/02/2023) [facility] Narrative* Problem Noted [...] of this encounter (statuses as of 04/02/2023) [facility] Narrative* Problem Noted [...] of this encounter (statuses as of 04/02/2023) [facility] Narrative* Problem Noted [...] of this encounter (statuses as of 04/05/2023) [facility] Narrative* Problem Noted [...] of this encounter (statuses as of 04/06/2023) [facility] Narrative* Problem Noted [...] of this encounter (statuses as of 05/10/2023) [facility] Narrative* Problem Noted [...] of this encounter (statuses as of 05/26/2023) [facility] Narrative* Problem Noted [...] of this encounter (statuses as of 05/26/2023) [facility] Narrative* Problem Noted [...] of this encounter (statuses as of 05/26/2023) [facility] Narrative* Problem Noted [...] of this encounter (statuses as of 05/26/2023) [facility] Narrative* Problem Noted [...] of this encounter (statuses as of 05/26/2023) [facility] Narrative* Problem Noted [...] of this encounter (statuses as of 05/26/2023) [facility] Narrative* Problem Noted [...] of this encounter (statuses as of 05/26/2023) [facility] Narrative* Problem Noted [...] of this encounter (statuses as of 05/29/2023) [facility] Narrative* Problem Noted [...] of this encounter (statuses as of 05/29/2023) [facility] Narrative* Problem Noted [...] of this encounter (statuses as of 05/29/2023) [facility] Narrative* Problem Noted [...] of this encounter (statuses as of 05/30/2023) [facility] Narrative* Problem Noted [...] of this encounter (statuses as of 06/07/2023) [facility] Narrative* Problem Noted [...] of this encounter (statuses as of 06/07/2023) [facility]arr[facility]* Problem Noted [...] of this encounter (statuses as of 06/18/2023) [facility] Narrative* Problem Noted [...] of this encounter (statuses as of 06/28/2023) [facility] Narrative* Problem Noted [...] of this encounter (statuses as of 08/23/2023) [facility] Narr[facility]* Problem Noted [...] of this encounter (statuses as of 08/27/2023) [facility] Narrative* Problem Noted [...] of this encounter (statuses as of 08/28/2023) [facility] Narr[facility]* Problem Noted [...] of this encounter (statuses as of 09/09/2023) [facility] Narrative* Problem Noted [...] of this encounter (statuses as of 09/21/2023) [facility] Narrative* Problem Noted [...] of this encounter (statuses as of 09/26/2023) [facility] Narrative* Problem Noted [...] of this encounter (statuses as of 10/11/2023) [facility] Narrative* Problem Noted [...] of this encounter (statuses as of 10/14/2023) [facility] Narrative* Problem Noted [...] of this encounter (statuses as of 11/01/2023) [facility] Narrative* Problem Noted [...] of this encounter (statuses as of 11/01/2023) [facility] Narrative* Problem Noted [...] of this encounter (statuses as of 09/21/2023) [facility] Narrative* Concepcion Ocampo, [...] 10, 2021 4:21 PM documented in this encounterUniversity Hospitals [facility]05-13-2021 History of Present illness Narrative* Concepcion Ocampo [...] 01, 2020 12:11 PM documented in this encounterUniversity Hospitals [facility]03[facility] History of Past illness Narrative* Problem Noted [...] of this encounter (statuses as of 10/18/2021) [facility] Narrative* Problem Noted [...] of this encounter (statuses as of 10/18/2021) [facility] Narrative* Problem Noted [...] of this encounter (statuses as of 2021) [facility] Narrative* Problem Noted [...] of this encounter (statuses as of 2021) [facility] Narrative* Problem Noted [...] of this encounter (statuses as of 10/30/2021) [facility]* Problem Noted [...] of this encounter (statuses as of 11/15/2021) [facility] Narrative* Problem Noted [...] of this encounter (statuses as of 11/15/2021) [facility] Narrative* Problem Noted [...] of this encounter (statuses as of 11/21/2021) [facility] CenterDis[facility] summary Author [facility] Note Date/Time February 25, 2025 2:3 4pm [facility] Medical Records Department [address] [place] [address] Instructions for Home/Discharge Instructions 02/25/25 1433 MR#: [id number] Acct: [id number] Name: MART ISAACJOHNNY Del Angel Rep #:[id number] : 1965 59 From: Clarissa Herrera MD [...] MD; Mary Kay Dugan DO ~ Signed [facility] Work Phone: Evaluation note* Diagnosis Uncontrolled type 2 diabetes mellitus with hyperglycemia (HCC)- Primary Essential hypertension Unspecified essential hypertension Hyperlipidemia, mixed Mixed hyperlipidemia Generalized abdominal pain Abdominal pain, generalized documented in this encounter [facility] [place] [facility]* Diagnosis Adverse effect of treatment, subsequent encounter documented in this encounter [facility] [place] [facility]* Diagnosis Uncontrolled type 2 diabetes mellitus with hyperglycemia (HCC)- Primary Essential hypertension Unspecified essential hypertension Chronic constipation Unspecified constipation Injury of left thumb, initial encounter Injury of left wrist, initial encounter Hyperlipidemia, mixed Mixed hyperlipidemia Generalized abdominal pain Abdominal pain, generalized Obesity, Class I, BMI 30-34.9 Obesity, unspecified [facility] [place] [facility]* Diagnosis Injury of left thumb, initial encounter- Primary Injury of left wrist, initial encounter documented in this encounter [facility] [place] [facility]* Diagnosis Cellulitis of left foot- Primary Cellulitis and abscess of foot, except toes documented in this encounter [facility] [place] [facility]* Diagnosis Uncontrolled type 2 diabetes mellitus with hyperglycemia (HCC)- Primary documented [facility] this [facility] [place] [facility]* Diagnosis Nonintractable episodic headache, unspecified headache type documented in this encounter [facility] [place] [facility]* Diagnosis Ingrown left greater toenail- Primary Ingrowing nail Localized swelling of left foot Pain of left heel Pain in limb Injury of left heel, subsequent encounter Left foot pain Pain in limb documented in this encounter [facility] [place] [facility]* Diagnosis Uncontrolled type 2 diabetes mellitus with hyperglycemia (HCC)- Primary Medication management Encounter for long-term (current) use of other medications documented in this encounter [facility] note* Diagnosis Uncontrolled type 2 diabetes mellitus with hyperglycemia (HCC) [facility] [place] [facility] Diagnosis Screening for osteoporosis Special screening for osteoporosis [facility] [place] [facility]* Diagnosis Uncontrolled type [...] mixed Mixed hyperlipidemia [facility] [place] [facility]* Diagnosis Type 2 diabetes mellitus with diabetic polyneuropathy (HCC) Type II or unspecified type diabetes mellitus with neurological manifestations, not stated as uncontrolled [facility] [place] [facility]* Diagnosis Acute right-sided low back pain without sciatica- Primary [facility] [place] [facility]* Diagnosis Right flank pain- Primary Abdominal pain, unspecified site RUQ pain Abdominal pain, right upper quadrant Chronic RLQ pain Abdominal pain, right lower quadrant Nausea Nausea alone Nausea and vomiting, unspecified vomiting type [facility] [place] [facility] Diagnosis Abdominal pain, unspecified abdominal location- Primary Change in bowel habits Other symptoms involving digestive system [facility] [place] [facility]* Diagnosis Uncontrolled type 2 diabetes mellitus with hyperglycemia (HCC)- Primary Essential hypertension Unspecified essential hypertension [facility] [place] [facility]* Diagnosis Influenza A- Primary Influenza with other respiratory manifestations Persistent cough Cough Fever, unspecified fever cause [facility] [place] [facility]* Diagnosis Uncontrolled type 2 diabetes mellitus with hyperglycemia (HCC) documented [facility] [place] [facility]* Diagnosis Type 2 [...] 30-34.9 Obesity, unspecified documented [facility] [place] [facility]* Diagnosis Uncontrolled type 2 diabetes mellitus with hyperglycemia (HCC)- Primary [facility] [place] [facility]* Diagnosis Uncontrolled type 2 diabetes mellitus with hyperglycemia (HCC)- Primary [facility] [place] [facility]* Diagnosis Urinary frequency- Primary Glucosuria Glycosuria Acute left-sided low back pain without sciatica documented [facility] this [facility] [place] [facility] Diagnosis Uncontrolled type 2 diabetes mellitus with hyperglycemia (HCC)- Primary Essential hypertension Unspecified essential hypertension [facility] [place] [facility]* Diagnosis Nausea- Primary [...] Other chest pain [facility] [place] [facility]* Diagnosis Lung nodules- Primary Other nonspecific abnormal finding of lung field Multiple lung nodules Other nonspecific abnormal finding of lung field Chest tightness Other chest pain documented in this encounter [facility] [place] noteNo assessment information availableWSt. [facility] Work Phone: [facility] [place] [facility]* Diagnosis Uncontrolled type 2 diabetes mellitus with hyperglycemia (HCC)- Primary documented in this encounter [facility] note* Diagnosis Current moderate episode of major depressive disorder without prior episode (HCC)- Primary Type 2 diabetes mellitus with peripheral neuropathy (HCC) Fatigue, unspecified type Dyslipidemia Other and unspecified hyperlipidemia SOB (shortness of breath) Shortness of breath Wheezing Pulmonary nodule Solitary pulmonary nodule Multiple lung nodules Other nonspecific abnormal finding of lung field documented in this encounter [facility] [place] [facility]* Diagnosis Other polyneuropathy documented in this encounter [facility] note* Diagnosis Type 2 diabetes mellitus with peripheral neuropathy (HCC)- Primary documented in this encounter [facility] [place] [facility]* Diagnosis Type 2 diabetes (HCC) documented in this encounter [facility] [place] [facility]* Diagnosis Vitamin B12 deficiency Other B-complex deficiencies documented in this encounter [facility] note* Diagnosis Acute non-recurrent sinusitis, unspecified location- Primary documented in this encounter [facility] note* Diagnosis Acute COVID-19- Primary documented in this encounter [facility] note* Diagnosis SOB (shortness of breath) Shortness of breath Wheezing Pulmonary nodule Solitary pulmonary nodule documented in this encounter [facility] note* Diagnosis Chest tightness Other chest pain documented in this encounter [facility] note* Diagnosis Nausea Nausea alone Right flank pain Abdominal pain, unspecified site RUQ pain Abdominal pain, right upper quadrant Chronic RLQ pain Abdominal pain, right lower quadrant Nausea and vomiting, unspecified vomiting type documented in this encounter [facility] note* Diagnosis Nausea Nausea alone Pain of upper abdomen Abdominal pain, other specified site Type 2 diabetes mellitus with peripheral neuropathy (HCC) RUQ pain Abdominal pain, right upper quadrant Gastroesophageal reflux disease, unspecified whether esophagitis present Abdominal bloating Flatulence, eructation, and gas pain documented in this encounter [facility] note* Diagnosis Encounter for screening mammogram for malignant neoplasm of breast Other screening mammogram documented in this encounter [facility] [place] [facility]* Diagnosis Nausea Nausea alone Pain of upper abdomen Abdominal pain, other specified site Type 2 diabetes mellitus with peripheral neuropathy (HCC) RUQ pain Abdominal pain, right upper quadrant Gastroesophageal reflux disease, unspecified whether esophagitis present Abdominal bloating Flatulence, eructation, and gas pain documented in this encounter [facility] [place] [facility]* Diagnosis Right leg swelling Swelling of limb Right calf pain documented in this encounter [facility] note* Diagnosis Type 2 diabetes mellitus with [...] 30-34.9 Obesity, unspecified documented in this encounter [facility] [place] [facility]* Diagnosis Uncontrolled type 2 diabetes mellitus with hyperglycemia (HCC)- Primary documented in this encounter [facility] [place] [facility]* Diagnosis Type 2 diabetes mellitus with peripheral neuropathy (HCC)- Primary Other polyneuropathy Fatigue, unspecified type Dyslipidemia Other and unspecified hyperlipidemia Hepatic steatosis Other chronic nonalcoholic liver disease Obesity, Class I, BMI 30-34.9 Obesity, unspecified Vitamin D deficiency Unspecified vitamin D deficiency Acute bronchitis, unspecified organism documented in this encounter [facility] [place] [facility]* Diagnosis Vitamin D deficiency Unspecified vitamin D deficiency documented in this encounter [facility] [place] [facility]* Diagnosis Uncontrolled type 2 diabetes mellitus with hyperglycemia (HCC)- Primary documented in this encounter [facility] [place] [facility]* Diagnosis Ear fullness, bilateral- Primary documented in this encounter [facility] note* Diagnosis Encounter for screening mammogram for breast cancer documented in this encounter [facility] [place] [facility]* Diagnosis Type 2 diabetes mellitus without complication, with long-term current use of insulin (HCC)- Primary Vitamin B12 deficiency Other B-complex deficiencies Hepatic steatosis Other chronic nonalcoholic liver disease Dyslipidemia Other and unspecified hyperlipidemia Acute otitis externa of right ear, unspecified type Carotid atherosclerosis, bilateral documented in this encounter [facility] [place] [facility]* Diagnosis Uncontrolled type 2 diabetes mellitus with hyperglycemia (HCC)- Primary documented in this encounter [facility] [place] [facility]* Diagnosis Type 2 diabetes mellitus without complication, with long-term current use of insulin (HCC)- Primary Vitamin B12 deficiency Other B-complex deficiencies Dyslipidemia Other and unspecified hyperlipidemia Vitamin D deficiency Unspecified vitamin D deficiency Essential hypertension Unspecified essential hypertension Gastroesophageal reflux disease, unspecified whether esophagitis present documented [facility] [place] [facility]* Diagnosis SOB (shortness of breath) Shortness of breath Wheezing Pulmonary nodule Solitary pulmonary nodule documented in this encounter [facility] [place] [facility]* Diagnosis Encounter for screening mammogram for breast cancer documented in this [facility] [place] [facility]* Diagnosis Injury of left thumb, initial encounter Injury of left wrist, initial encounter documented in this [facility] [place] [facility]* Diagnosis Ingrown left greater toenail Ingrowing nail Localized swelling of left foot Pain of left heel Pain in limb Injury of left heel, subsequent encounter Left foot pain Pain in limb documented [facility] this [facility] [place] [facility]* Diagnosis Uncontrolled type 2 diabetes mellitus with hyperglycemia (HCC)- Primary documented in this encounter [facility] [place] [facility]* Diagnosis Acute right-sided low back pain with right-sided sciatica Acute right-sided thoracic back pain documented in this encounter [facility] [place] [facility]* Diagnosis Generalized abdominal pain Abdominal pain, generalized documented in this [facility] [place] [facility]* Diagnosis Acute non-recurrent maxillary sinusitis- Primary Acute bronchitis, unspecified organism Rhinorrhea Other diseases of nasal cavity and sinuses documented in this [facility] [place] [facility]* Diagnosis Right hand pain Pain in limb Localized swelling of finger of right hand documented in this [facility] [place] [facility]* Diagnosis Uncontrolled type 2 diabetes mellitus with hyperglycemia (HCC)- Primary documented in this [facility] [place] [facility]* Diagnosis Right hand pain- Primary Pain in limb documented in this [facility] [place] [facility]* Diagnosis Type 2 diabetes mellitus with peripheral neuropathy (HCC)- Primary Right hand pain Pain in limb Trigger finger, unspecified finger, unspecified laterality documented in this encounter [facility] [place] [facility]* Diagnosis Type 2 [...] Pain in limb documented in this [facility] [place] [facility]* Diagnosis Uncontrolled type 2 diabetes mellitus with hyperglycemia (HCC)- Primary [facility]* Diagnosis Shortness of breath COVID-19 documented in this encounter [facility] [place] [facility]* Diagnosis Uncontrolled type 2 diabetes mellitus with hyperglycemia (HCC)- Primary documented [facility] this [facility] [place] [facility]* Diagnosis Type 2 diabetes mellitus without complication, with long-term current use of insulin (HCC)- Primary Trigger middle finger of right hand Trigger finger (acquired) Right hand pain Pain in limb Dysuria Dyslipidemia Other and unspecified hyperlipidemia Essential hypertension Unspecified essential hypertension [facility]* Diagnosis Uncontrolled type 2 diabetes mellitus with hyperglycemia (HCC)- Primary [facility]* Diagnosis Onset Date Resolution Status Admit Date Acute CHF acute February 22 8:21pm Acute cough acute February 22, 025 8:21pm Chest pain acute February 22 8:21pm Elevated troponin acute February 22, 2025 8:21pm Hypoxemia acute February 22 8:21pm [facility] Work Phone: Evaluation note* Diagnosis Chest pain on breathing- Primary Painful respiration Type 2 diabetes mellitus with peripheral neuropathy (HCC) Shortness of breath Fatigue, unspecified type documented [facility] this encounter [facility] Author Denton Cook [facility] Note Date/Time February 22, 2025 8:2 1pm [facility] Medical Records Department [address] [place] [id number] History & Physical Exam 02/22/252008 MR#: [id number] Acct: [id number] Name: LINA ISAAC Rep #:[id number] : 1965 59 From: Denton Cook MD [...] will be ordered as well. [facility] Medical History (Updated 02/22/25 @ [...] % (Auto) 48.8, Lymph % (Auto) 37.3, [place] % (Auto) 11.0 H, Eos % (Auto) [...] in the appropriate clinical context. Reading Location: [facility] Assessment & Plan Assessment/Plan (1) Chest [...] hold albuterol at this time 2. NSTEMI?consult house visitor Dr Montero. Continue to cycle cardiac enzymes, will add oxygen, nitroglycerin as needed for pain and aspirin. Pain seems to berelatively controlled at this time. Will make patient n.p.o. at midnight 3. Congestive heart failure?will get echocardiogram 4. Diabetes?will add sliding scale insulin and will adjust accordingly 5. Smoking?cessation strongly encouraged 6. DVT prophylaxis?low molecular weight heparin Charges/Coding Visit Charges Inpatient E&M: 04655 Init Hosp L2 02/22/252020 <Electronically signed by Denton Cook MD> Cosigner Signature (if applicable): CC: Dr. Jese Zheng DO; Dr. Denton Cook MD~ Signed [facility] Work Phone: Reason for referral (narrative)* Diagnostic Procedure Only (Routine) - Closed Specialty Diagnoses / Procedures Referred By Contac t Referred To Contact XR IMAGING Diagnoses Injury of left thumb, initial encounter Injury of left wrist, initial encounter Procedures XR HAND GENERAL 3V PA/LAT/OBL LEFT RADEX HAND MINIMUM 3 VIEWS Jese Zheng DO [address] [place] [address] Xr Imaging Referral ID Status Reason Start Date Expiration Date V isits Requested Visits Authorized [id number] Closed Auto-Generate d Referral 11/14/2021 12/14/2022 1 1 * Diagnostic Procedure Only (Routine) - Closed Specialty Diagnoses / Procedures Referred By Contac t Referred To Contact XR IMAGING Diagnoses Injury of left thumb, initial encounter Injury of left wrist, initial encounter Procedures XR WRIST GENERAL 3V PA/LAT/OBL LEFT RADEX WRIST COMPLETE MINIMUM 3 VIEWS Jese Zheng, DO [address] [place] [address] Xr Imaging Referral ID Status Reason Start Date Expiration Date V isits Requested Visits Authorized [id number] Closed Auto-Generate d Referral 11/14/2021 12/14/2022 1 1 [facility] for referral (narrative)* Diagnostic Procedure Only (Routine) - Closed Specialty Diagnoses / Procedures Referred By Contac t Referred To Contact XR IMAGING Diagnoses Ingrown left greater toenail Localized swelling of left foot Pain of left heel Injury of left heel, subsequent encounter Left foot pain Procedures XR FOOT GENERAL 3V AP/LAT/OBL LEFT RADEX FOOT COMPLETE MINIMUM 3 VIEWS Jese Zheng DO [address] [place] [address] Xr Imaging Referral ID Status Reason Start Date Expiration Date V isits Requested Visits Authorized [id number] Closed Auto-Generate d Referral 12/30/2021 01/29/2023 1 [...] EXTREMITY W/O CONTRAST MATERIAL Jese Zheng DO [address] [place] [address] Ct Imaging Referral ID Status Reason Start Date Expiration Date Visits Requested Visits Authorized [id number] Additional Clinical Info Needed Auto-Generat ed Referral 12/30/2021 01/29/2023 1 1 * Consult, Test, Treat (Routine) - Authorized Specialty Diagnoses / Procedures Referred By Contac t Referred To Contact Podiatry Diagnoses Ingrown left greater toenail Localized swelling of left foot Pain of left heel Injury of left heel, subsequent encounter Left foot pain Procedures CONSULT TO PODIATRY OFFICE/OUTPATIENT [facility] 60-74 MINUTES Jese Zheng DO [address] [place] [address] Referral ID Status Reason Start Date Expiration Date Visits Requested Visits Authorized [id number] Authorized PCP Requested Referral 12/30/2021 12/30/2022 1 1 [facility] for referral (narrative)* Outpatient Procedure (Routine) - Pending Review Specialty Diagnoses / Procedures Referred By Colleen coronado Referred To Contact [facility] Diagnoses Abdominal pain, unspecified abdominal location Change in bowel habits Procedures COLONOSCOPY DIAGNOSTIC COLONOSCOPY FLX DX W/COLLJ SPEC WHEN Brandy Sahni MD [address] [place] [address] [facility] [address] [address] Referral ID Status Reason Start Date Expiration Date Visits Requested Visits Authorized [id number] Pending Review Auto-Generat ed Referral 05/29/2022 05/29/2023 1 1 * Outpatient Procedure (Routine) - Pending Review Specialty Diagnoses / Procedures Referred By Colleen coronado Referred To Contact [facility] Diagnoses Abdominal pain, unspecified abdominal location Change in bowel habits Procedures EGD DIAGNOSTIC ESOPHAGOGASTRODUODENOSC OPY TRANSORAL DIAGNOSTIC Brandy Ramirez MD [address] [place] [address] [facility] [place] [address] [place] [address] Referral ID Status Reason Start Date Expiration Date Visits Requested Visits Authorized [id number] Pending Review Auto-Generat ed Referral 05/29/2022 05/29/2023 1 1 [facility] for referral (narrative)* Diagnostic Procedure Only (Routine) - Authorized Specialty Diagnoses / Procedures Referred By Contac t Referred To Contact BR IM[facility] Diagnoses Encounter for screening mammogram for malignant neoplasm of breast Procedures CHANTELL SCREENING W CAROLYN SCREENING DIGITAL BREAST TOMOSYNTHESIS BI SCREENING MAMMOGRAPHY BI 2-VIEW BREAST INC CAD Jese Zheng, DO [address] [place] [address] [facility] [address] [place] [address] Referral ID Status Reason Start Date Expiration Date Visits Requested Visits Authorized [id number] Authorized Auto-Generat ed Referral 07/24/2022 08/23/2023 1 1 * Diagnostic Procedure Only (Routine) - Pending Review Specialty Diagnoses / Procedures Referred By Colleen t Referred To Contact [facility] Diagnoses Encounter for screening mammogram for malignant neoplasm of breast Procedures CHANTELL SCREENING SCREENING MAMMOGRAPHY BI 2-VIEW BREAST INC CAD Jese Zheng, DO [address] [place] [address] [facility] [address] [place] [address] Referral ID Status Reason Start Date Expiration Date Visits Requested Visits Authorized [id number] Pending Review Auto-Generat ed Referral 07/24/2022 08/23/2023 1 1 [facility] for referral (narrative)* Diagnostic Procedure Only (Routine) [...] SYST IMAG INC GB W/PHARMA INTERVENAnkita Osborn, JAXSON.PRESS SET UP [address] [place] [address] [facility] [address] [id number] Referral ID Status Reason Start Date Expiration Date Visits Requested Visits Authorized [id number] Authorized Auto-Generat ed Referral 11/08/2022 12/08/2023 1 [...] ABDOMINAL REAL TIME W/IMAGE LIMITED Ankita Green APRN.[employer] [address] [place] [address] [facility] Referral ID Status Reason Start Date Expiration Date V isits Requested Visits Authorized [id number] Closed Auto-Generate d Referral 11/08/2022 12/08/2023 1 1 [facility] for referral (narrative)* Diagnostic Procedure Only (Routine) [...] IMAG INC GB W/PHARMA INTERVENJ Ankita Green APRN.[employer] [address] [place] [address] [facility] [address] [place] [address] Referral ID Status Reason Start Date Expiration Date V isits Requested Visits Authorized [id number] Closed Auto-Generate d Referral 11/08/2022 12/08/2023 1 1 [facility] for referral (narrative)* Diagnostic Procedure Only (Routine) - Closed Specialty Diagnoses / Procedures Referred By Colleen t Referred To Contact BR [facility] Diagnoses Encounter for screening mammogram for malignant neoplasm of breast Procedures CHANTELL SCREENING W CAROLYN SCREENING DIGITAL BREAST TOMOSYNTHESIS BI SCREENING MAMMOGRAPHY BI 2-VIEW BREAST INC CAD Jese Zheng DO [address] [place] [address] [facility] [address] [place] [address] Referral ID Status Reason Start Date Expiration Date V isits Requested Visits Authorized [id number] Closed Auto-Generate d Referral 07/24/2022 08/23/2023 1 1 [facility] for referral (narrative)* Diagnostic Procedure Only (Urgent) - Closed Specialty Diagnoses / Procedures Referred By Leanneac t Referred To Contact US IMAGING Diagnoses Nausea Pain of upper abdomen Type 2 diabetes mellitus with peripheral neuropathy (HCC) RUQ pain Gastroesophageal reflux disease, unspecified whether esophagitis present Abdominal bloating Procedures US ABD RIGHT UPPER QUADRANT US ABDOMINAL REAL TIME W/IMAGE LIMITED Ankita Green APRN.CNP [address] [place] [address] [place] [address] Referral ID Status Reason Start Date Expiration Date V isits Requested Visits Authorized [id number] Closed Auto-Generate d Referral 11/08/2022 12/08/2023 1 1 [facility] for referral (narrative)* Diagnostic Procedure Only (Urgent) - Outside PCP Specialty Diagnoses / Procedures Referred By Colleen t Referred To Contact [facility] Diagnoses Right leg swelling Right calf pain Procedures US LEG VEIN DVT UNL VAS LAB DUP-SCAN XTR VEINS UNILATERAL/LIMITED STUDY Jese Zheng DO [address] [place] [address] [facility] [place] [address] [place] [address] [id number] Referral ID Status Reason Start Date Expiration Date Visits Requested Visits Authorized [id number] Outside PCP Auto-Genera laureen Referral Patient Cleared - Admin/Chair man/Directo r advise to proceed or did not respond 05/27/2023 05/26/2024 1 1 [facility] for referral (narrative)* Diagnostic Procedure Only (Urgent) - Outside PCP Specialty Diagnoses / Procedures Referred By Colleen t Referred To Contact [facility] [place] Diagnoses Right leg swelling Right calf pain Procedures US LEG VEIN DVT UNL VAS LAB DUP-SCAN XTR VEINS UNILATERAL/LIMITED STUDY Jese Zheng DO [address] [place] [address] [address] Referral ID Status Reason Start Date Expiration Date Visits Requested Visits Authorized [id number] Outside PCP Auto-Genera laureen Referral Patient Cleared - Admin/Chair man/Directo r advise to proceed or did not respond 05/27/2023 05/26/2024 1 1 [facility] for referral (narrative)* Diagnostic Procedure Only (Routine) - Pending Review Specialty Diagnoses / Procedures Referred By Colleen coronado Referred To Contact [facility] Diagnoses Encounter for screening mammogram for breast cancer Procedures CHANTELL SCREENING W CAROLYN SCREENING DIGITAL BREAST TOMOSYNTHESIS BI SCREENING MAMMOGRAPHY BI 2-VIEW BREAST INC CAD Jese Zheng DO [address] [place] [address] Br Imaging [address] [place] [phone] Referral ID Status Reason Start Date Expiration Date Visits Requested Visits Authorized [id number] Pending Review Auto-Generat ed Referral 10/09/2023 11/07/2024 1 1 [facility] for referral (narrative)* Outpatient Procedure (Routine) - Authorized Specialty Diagnoses / Procedures Referred By Colleen t Referred To Contact [facility] Diagnoses Carotid atherosclerosis, bilateral Procedures US CAROTID ARTERIES [facility] VAS LAB DUPLEX SCAN EXTRACRANIAL ART COMPL BI STUDY Jese Zheng DO [address] [place] [address] [facility] [address] [place] [address] Referral ID Status Reason Start Date Expiration Date Visits Requested Visits Authorized [id number] Authorized Auto-Generat ed Referral 11/27/2023 11/26/2024 1 1 [facility] for referral (narrative)* Diagnostic Procedure Only (Routine) - Closed Specialty Diagnoses / Procedures Referred By Colleen t Referred To Contact BR IMAG[facility] Diagnoses Encounter for screening mammogram for breast cancer Procedures CHANTELL SCREENING W CAROLYN SCREENING DIGITAL BREAST TOMOSYNTHESIS BI SCREENING MAMMOGRAPHY BI 2-VIEW BREAST INC CAD Jese Zheng, DO [address] [place] [address] Br Imaging [address] [place] [address] Referral ID Status Reason Start Date Expiration Date V isits Requested Visits Authorized [id number] Closed Auto-Generate d Referral 10/09/2023 11/07/2024 1 1 [facility] for referral (narrative)* Diagnostic Procedure Only (Routine) - Closed Specialty Diagnoses / Procedures Referred By Colleen t Referred To Contact XR IMAGING Diagnoses Injury of left thumb, initial encounter Injury of left wrist, initial encounter Procedures XR HAND GENERAL 3V PA/LAT/OBL LEFT RADEX HAND MINIMUM 3 VIEWS Jese Zheng DO [address] [place] [address] [place] [address] Referral ID Status Reason Start Date Expiration Date V isits Requested Visits Authorized [id number] Closed Auto-Generate d Referral 11/14/2021 12/14/2022 1 1 * Diagnostic Procedure Only (Routine) - Closed Specialty Diagnoses / Procedures Referred By Contac t Referred To Contact XR IMAGING Diagnoses Injury of left thumb, initial encounter Injury of left wrist, initial encounter Procedures XR WRIST GENERAL 3V PA/LAT/OBL LEFT RADEX WRIST COMPLETE MINIMUM 3 VIEWS Jese Zheng DO [address] [place] [address] [place] [address] Referral ID Status Reason Start Date Expiration Date V isits Requested Visits Authorized [id number] Closed Auto-Generate d Referral 11/14/2021 12/14/2022 1 1 [facility] for referral (narrative)* Diagnostic Procedure Only (Routine) - Closed Specialty Diagnoses / Procedures Referred By Contac t Referred To Contact XR IMAGING Diagnoses Ingrown left greater toenail Localized swelling of left foot Pain of left heel Injury of left heel, subsequent encounter Left foot pain Procedures XR FOOT GENERAL 3V AP/LAT/OBL LEFT RADEX FOOT COMPLETE MINIMUM 3 VIEWS Jese Zheng DO [address] [place] [address] [place] [address] Referral ID Status Reason Start Date Expiration Date V isits Requested Visits Authorized [id number] Closed Auto-Generate d Referral 12/30/2021 01/29/2023 1 1 [facility] for referral (narrative)* Diagnostic Procedure Only (Urgent) - Closed Specialty Diagnoses / Procedures Referred By Contac t Referred To Contact XR IMAGING Diagnoses Generalized abdominal pain Procedures XR ABDOMEN 2V ROUTINE SUPINE W UPRIGHT/DECUB/CTL RADIOLOGIC EXAM ABDOMEN 2 VIEWS Tamara Bauer APRN.CNP, DNP [address] [place] [address] [place] [address] Referral ID Status Reason Start Date Expiration Date V isits Requested Visits Authorized [id number] Closed Auto-Generate d Referral 04/10/2021 05/10/2022 1 1 [facility] for referral (narrative)No reason for referral information availableWSt. [facility] Work Phone: Reason for visit Narrative* Diagnostic Procedure Only (Routine) - Closed Specialty Diagnoses / Procedures Referred By Contac t Referred To Contact [facility] IM[facility] Diagnoses Encounter for screening mammogram for malignant neoplasm of breast Procedures CHANTELL SCREENING W CAROLYN SCREENING DIGITAL BREAST TOMOSYNTHESIS BI SCREENING MAMMOGRAPHY BI 2-VIEW BREAST INC CAD Jese Zheng, DO [address] [place] [address] Br Imaging [address] [place] [address] Referral ID Status Reason Start Date Expiration Date V isits Requested Visits Authorized [id number] Closed Auto-Generate d Referral 07/24/2022 08/23/2023 1 1 [facility] for visit Narrative* Diagnostic Procedure Only (Urgent) - Outside PCP Specialty Diagnoses / Procedures Referred By Colleen coronado [facility] Diagnoses Right leg swelling Right calf pain Procedures US LEG VEIN DVT UNL VAS LAB DUP-SCAN XTR VEINS UNILATERAL/LIMITED STUDY Jese Zheng, DO [address] [place] [address] [facility] [address] [address] Referral ID Status Reason Start Date Expiration Date Visits Requested Visits Authorized [id number] Outside PCP Auto-Genera laureen Referral Patient Cleared - Admin/Chair man/Directo r advise to proceed or did not respond 05/27/2023 05/26/2024 1 1 [facility] for visit Narrative* Diagnostic Procedure Only (Routine) - Closed Specialty Diagnoses / Procedures Referred By Colleen coronado Referred To Contact [facility] Diagnoses Encounter for screening mammogram for breast cancer Procedures CHANTELL SCREENING W CAROLYN SCREENING DIGITAL BREAST TOMOSYNTHESIS BI SCREENING MAMMOGRAPHY BI 2-VIEW BREAST INC CAD Jese Zheng, DO [address] [place] [address] Br Imaging [address] [place] [address] Referral ID Status Reason Start Date Expiration Date V isits Requested Visits Authorized [id number] Closed Auto-Generate d Referral 10/09/2023 11/07/2024 1 1 [facility] for visit Narrative* Diagnostic Procedure Only (Routine) - Closed Specialty Diagnoses / Procedures Referred By Colleen t Referred To Contact XR IMAGING Diagnoses Injury of left thumb, initial encounter Injury of left wrist, initial encounter Procedures XR HAND GENERAL 3V PA/LAT/OBL LEFT RADEX HAND MINIMUM 3 VIEWS Jese Zheng, DO [address] [place] [address] [place] [address] Referral ID Status Reason Start Date Expiration Date V isits Requested Visits Authorized [id number] Closed Auto-Generate d Referral 11/14/2021 12/14/2022 1 1 [facility] for visit Narrative* Diagnostic Procedure Only (Routine) - Closed Specialty Diagnoses / Procedures Referred By Contac t Referred To Contact XR IMAGING Diagnoses Ingrown left greater toenail Localized swelling of left foot Pain of left heel Injury of left heel, subsequent encounter Left foot pain Procedures XR FOOT GENERAL 3V AP/LAT/OBL LEFT RADEX FOOT COMPLETE MINIMUM 3 VIEWS Jese Zheng, DO [address] [place] [address] [place] [address] Referral ID Status Reason Start Date Expiration Date V isits Requested Visits Authorized [id number] Closed Auto-Generate d Referral 12/30/2021 01/29/2023 1 1 [facility] for visit Narrative* Diagnostic Procedure Only (Urgent) - Closed Specialty Diagnoses / Procedures Referred By Contac t Referred To Contact XR IMAGING Diagnoses Generalized abdominal pain Procedures XR ABDOMEN 2V ROUTINE SUPINE W UPRIGHT/DECUB/CTL RADIOLOGIC EXAM ABDOMEN 2 VIEWS Tamara Bauer, [employer], DNP [address] [place] [id number] [place] [address] Referral ID Status Reason Start Date Expiration Date V isits Requested Visits Authorized [id number] Closed Auto-Generate d Referral 04/10/2021 05/10/2022 1 1 [facility] for visit Narrative* Diagnostic Procedure Only (Routine) - Closed Specialty Diagnoses / Procedures Referred By Contac t Referred To Contact XR IMAGING Diagnoses Right hand pain Localized swelling of finger of right hand Procedures XR HAND GENERAL 3V PA/LAT/OBL RIGHT RADEX HAND MINIMUM 3 VIEWS Jese Zheng, DO [address] [place] [address] [place] [address] Referral ID Status Reason Start Date Expiration Date V isits Requested Visits Authorized [id number] Closed Auto-Generate d Referral 06/23/2024 07/23/2025 1 1 [facility] Advance Directives No Advanced Directives Records FoundDocuments on File Type Date Recorded 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 Advance Directive(s) 05/24/2017 8:44 AM Advance Directive(s) 05/24/2017 1:50 PM Advance Directive(s) 05/24/2017 1:51 PM Advance Directive(s) 01/06/2016 1:17 PM Documents on File Type Date Recorded 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 Advance Directive(s) 05/24/2017 8:44 AM Advance Directive(s) 05/24/2017 1:50 PM Advance Directive(s) 05/24/2017 1:51 PM Advance Directive(s) 01/06/2016 1:17 PM Documents on File Type Date Recorded 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 No February 22, 2025 6:09pm Advance Directives No January 19 9:36am Advance Directive Response Recorded Date/ Time Do you have a Healthcare Power of Environmental Services Assistant? No February 22, 2025 9:44pm Advance Directives No January 19 9:36am Reason for Referral Specialty Diagnoses / Procedures Referred By Colleen coronado Referred To Contact CT IMAGING Diagnoses Adverse effect of treatment, subsequent encounter Procedures CT ABD/PEL WO IVCON CT ABD & PELVIS W/O CONTRAST Brandy Ramirez MD [address] [place] [address] Ct Imaging Referral ID Status Reason Start Date Expiration Date V isits Requested Visits Authorized [id number] Closed Auto-Generate d Referral 10/13/2021 12/12/2021 2 2 Specialty Diagnoses / Procedures Referred By Colleen coronado Referred To Contact Orthopedics Diagnoses Injury of left thumb, initial encounter Injury of left wrist, initial encounter Procedures CONSULT TO ORTHOPAEDICS OFFICE/OUTPATIENT NEW HIGH MDM 60-74 MINUTES Corrine Hartman, SWEATBAND SEPARATOR.[employer] SET UP [address] [place] [address] Referral ID Status Reason Start Date Expiration Date Visits Requested Visits Authorized [id number] Authorized PCP Requested Referral 11/20/2021 11/20/2022 1 1 Specialty Diagnoses / Procedures Referred By Contac t Referred To Contact Diagnoses Uncontrolled type 2 diabetes mellitus with hyperglycemia (HCC) Procedures CONSULT TO DIABETES EDUCATION OFFICE/OUTPATIENT [facility] 60-74 MINUTES Jese Zheng, DO [address] [place] [address] Referral ID Status Reason Start Date Expiration Date Visits Requested Visits Authorized [id number] Authorized PCP Requested Referral 12/22/2021 12/22/2022 1 1 Specialty Diagnoses / Procedures Referred By Contac t Referred To Contact Jese Zheng, DO [address] [place] [address] Referral ID Status Reason Start Date Expiration Date V isits Requested Visits Authorized [id number] Pending Review 1 1 Specialty Diagnoses / Procedures Referred By Contac t Referred To Contact CT IMAGING Diagnoses Nausea Right flank pain RUQ pain Chronic RLQ pain Nausea and vomiting, unspecified vomiting type Procedures CT ABD/PEL WO IVCON CT ABD & PELVIS W/O CONTRAST Ankita Green, SWEATBAND SEPARATOR.[employer] UP [address] [place] [address] Ct Imaging Referral ID Status Reason Start Date Expiration Date Visits Requested Visits Authorized [id number] Pending Review Auto-Genera laureen Referral Patient Cleared - Admin/Chair man/Directo r advise to proceed 2 06/20/2023 2 2 Referral ID Status Reason Start Date Expiration Date Visits Re quested Visits Authorized [id number] Closed 1 1 Referral ID Status Reason Start Date Expiration Date Visits Re quested Visits Authorized [id number] Closed 1 1 Referral ID Status Reason Start Date Expiration Date Visits Re quested Visits Authorized [id number] Closed 1 1 Specialty Diagnoses / Procedures Referred By Contac t Referred To Contact CT IMAGING Diagnoses SOB (shortness of breath) Wheezing Pulmonary nodule Procedures CT CHEST WO IVCON DIAGNOSTIC COMPUTED TOMOGRAPHY THORAX W/O CNTRST Jese Zheng L, DO [address] [place] [address] Ct Imaging Referral ID Status Reason Start Date Expiration Date Visits Requested Visits Authorized [id number] Pending Review Auto-Generat ed Referral 02/19/2023 03/20/2024 1 1 Specialty Diagnoses / Procedures Referred By Contac t Referred To Contact CT IMAGING Diagnoses SOB (shortness of breath) Wheezing Pulmonary nodule Procedures CT CHEST WO IVCON DIAGNOSTIC COMPUTED TOMOGRAPHY THORAX W/O CNTRST Jese Zheng L, DO [address] [place] [address] [place] [address] Referral ID Status Reason Start Date Expiration Date V isits Requested Visits Authorized [id number] Denied Auto-Generat ed Referral Patient Cleared - Admin/Chairm an/Director advise to proceed or did not respond 02/19/2023 03/20/2024 1 0 Specialty Diagnoses / Procedures Referred By Contac t Referred To Contact CT IMAGING Diagnoses Nausea Right flank pain RUQ pain Chronic RLQ pain Nausea and vomiting, unspecified vomiting type Procedures CT ABD/PEL WO IVCON CT ABD & PELVIS W/O CONTRAST Ankita Green, [employer] [address] [place] [address] [place] [address] Referral ID Status Reason Start Date Expiration Date V isits Requested Visits Authorized [id number] Denied Auto-Generat ed Referral Patient Cleared - Admin/Chairm an/Director advise to proceed or did not respond 05/21/2022 07/20/2022 2 0 Referral ID Status Reason Start Date Expiration Date V isits Requested Visits Authorized [id number] Pending Review 1 1 Referral ID Status Reason Start Date Expiration Date V isits Requested Visits Authorized [id number] Authorized 1 1 Specialty Diagnoses / Procedures Referred By Contac t Referred To Contact Orthopedics Diagnoses Right hand pain Procedures CONSULT TO ORTHOPAEDICS OFFICE/OUTPATIENT [facility] MDM 60 MINUTES Jese Zheng L, DO [address] [place] [address] Referral ID Status Reason Start Date Expiration Date V isits Requested Visits Authorized [id number] Closed PCP Requested Referral 07/17/2024 07/17/2025 1 [...] or prosecute any alcohol or drug abuse patient.[facility] Center[facility] the event this information is protected by the Federal Confidentiality of Alcohol and Drug Abuse Patient Records regulations: The Federal rules restrict any use of the information to criminally investigate or prosecute any alcohol or drug abuse patient.[facility] CenterIn the event this information is protected by the Federal Confidentiality of Alcohol and Drug Abuse Patient Records regulations: The Federal rules restrict any use of the information to criminally investigate or prosecute any alcohol or drug abuse patient.[facility] CenterIn the event this information is protected by the Federal Confidentiality of Alcohol and Drug Abuse Patient Records regulations: The Federal rules restrict any use of the information to criminally investigate or prosecute any alcohol or drug abuse patient.[facility] CenterIn the event this information is protected by the Federal Confidentiality of Alcohol and Drug Abuse Patient Records regulations: The Federal rules restrict any use of the information to criminally investigate or prosecute any alcohol or drug abuse patient.[facility] CenterIn the event this information is protected by the Federal Confidentiality of Alcohol and Drug Abuse Patient Records regulations: The Federal rules restrict any use of the information to criminally investigate or prosecute any alcohol or drug abuse patient.[facility] CenterIn the event this information is protected by the Federal Confidentiality of Alcohol and Drug Abuse Patient Records regulations: The Federal rules restrict any use of the information to criminally investigate or prosecute any alcohol or drug abuse patient.[facility] CenterIn the event this information is protected by the Federal Confidentiality of Alcohol and Drug Abuse Patient Records regulations: The Federal rules restrict any use of the information to criminally investigate or prosecute any alcohol or drug abuse patient.[facility] CenterIn the event this information is protected by the Federal Confidentiality of Alcohol and Drug Abuse Patient Records regulations: The Federal rules restrict any use of the information to criminally investigate or prosecute any alcohol or drug abuse patient.[facility] CenterIn the event this information is protected by the Federal Confidentiality of Alcohol and Drug Abuse Patient Records regulations: The Federal rules restrict any use of the information to criminally investigate or prosecute any alcohol or drug abuse patient.[facility] CenterIn the event this information is protected by the Federal Confidentiality of Alcohol and Drug Abuse Patient Records regulations: The Federal rules restrict any use of the information to criminally investigate or prosecute any alcohol or drug abuse patient.[facility] CenterIn the event this information is protected by the Federal Confidentiality of Alcohol and Drug Abuse Patient Records regulations: The Federal rules restrict any use of the information to criminally investigate or prosecute any alcohol or drug abuse patient.[facility] CenterIn the event this information is protected by the Federal Confidentiality of Alcohol and Drug Abuse Patient Records regulations: The Federal rules restrict any use of the information to criminally investigate or prosecute any alcohol or drug abuse patient.[facility] CenterIn the event this information is protected by the Federal Confidentiality of Alcohol and Drug Abuse Patient Records regulations: The Federal rules restrict any use of the information to criminally investigate or prosecute any alcohol or drug abuse patient.[facility] CenterIn the event this information is protected by the Federal Confidentiality of Alcohol and Drug Abuse Patient Records regulations: The Federal rules restrict any use of the information to criminally investigate or prosecute any alcohol or drug abuse patient.[facility] CenterIn the event this information is protected by the Federal Confidentiality of Alcohol and Drug Abuse Patient Records regulations: The Federal rules restrict any use of the information to criminally investigate or prosecute any alcohol or drug abuse patient.[facility] CenterIn the event this information is protected by the Federal Confidentiality of Alcohol and Drug Abuse Patient Records regulations: The Federal rules restrict any use of the information to criminally investigate or prosecute any alcohol or drug abuse patient.[facility] CenterIn the event this information is protected by the Federal Confidentiality of Alcohol and Drug Abuse Patient Records regulations: The Federal rules restrict any use of the information to criminally investigate or prosecute any alcohol or drug abuse patient.[facility] CenterIn the event this information is protected by the Federal Confidentiality of Alcohol and Drug Abuse Patient Records regulations: The Federal rules restrict any use of the information to criminally investigate or prosecute any alcohol or drug abuse patient.[facility] CenterIn the event this information is protected by the Federal Confidentiality of Alcohol and Drug Abuse Patient Records regulations: The Federal rules restrict any use of the information to criminally investigate or prosecute any alcohol or drug abuse patient.[facility] CenterIn the event this information is protected by the Federal Confidentiality of Alcohol and Drug Abuse Patient Records regulations: The Federal rules restrict any use of the information to criminally investigate or prosecute any alcohol or drug abuse patient.[facility] CenterIn the event this information is protected by the Federal Confidentiality of Alcohol and Drug Abuse Patient Records regulations: The Federal rules restrict any use of the information to criminally investigate or prosecute any alcohol or drug abuse patient.[facility] CenterIn the event this information is protected by the Federal Confidentiality of Alcohol and Drug Abuse Patient Records regulations: The Federal rules restrict any use of the information to criminally investigate or prosecute any alcohol or drug abuse patient.[facility] CenterIn the event this information is protected by the Federal Confidentiality of Alcohol and Drug Abuse Patient Records regulations: The Federal rules restrict any use of the information to criminally investigate or prosecute any alcohol or drug abuse patient.[facility] CenterIn the event this information is protected by the Federal Confidentiality of Alcohol and Drug Abuse Patient Records regulations: The Federal rules restrict any use of the information to criminally investigate or prosecute any alcohol or drug abuse patient.[facility] CenterIn the event this information is protected by the Federal Confidentiality of Alcohol and Drug Abuse Patient Records regulations: The Federal rules restrict any use of the information to criminally investigate or prosecute any alcohol or drug abuse patient.[facility] CenterIn the event this information is protected by the Federal Confidentiality of Alcohol and Drug Abuse Patient Records regulations: The Federal rules restrict any use of the information to criminally investigate or prosecute any alcohol or drug abuse patient.[facility] CenterIn the event this information is protected by the Federal Confidentiality of Alcohol and Drug Abuse Patient Records regulations: The Federal rules restrict any use of the information to criminally investigate or prosecute any alcohol or drug abuse patient.[facility] CenterIn the event this information is protected by the Federal Confidentiality of Alcohol and Drug Abuse Patient Records regulations: The Federal rules restrict any use of the information to criminally investigate or prosecute any alcohol or drug abuse patient.[facility] CenterIn the event this information is protected by [...] or prosecute any alcohol or drug abuse patient.[facility] CenterIn the event this information is protected by the Federal Confidentiality of Alcohol and Drug Abuse Patient Records regulations: The Federal rules restrict any use of the information to criminally investigate or prosecute any alcohol or drug abuse patient.[facility] CenterIn the event this information is protected by the Federal Confidentiality of Alcohol and Drug Abuse Patient Records regulations: The Federal rules restrict any use of the information to criminally investigate or prosecute any alcohol or drug abuse patient.[facility] CenterIn the event this information is protected by the Federal Confidentiality of Alcohol and Drug Abuse Patient Records regulations: The Federal rules restrict any use of the information to criminally investigate or prosecute any alcohol or drug abuse patient.[facility] CenterIn the event this information is protected by the Federal Confidentiality of Alcohol and Drug Abuse Patient Records regulations: The Federal rules restrict any use of the information to criminally investigate or prosecute any alcohol or drug abuse patient.[facility] CenterIn the event this information is protected by the Federal Confidentiality of Alcohol and Drug Abuse Patient Records regulations: The Federal rules restrict any use of the information to criminally investigate or prosecute any alcohol or drug abuse patient.[facility] CenterIn the event this information is protected by the Federal Confidentiality of Alcohol and Drug Abuse Patient Records regulations: The Federal rules restrict any use of the information to criminally investigate or prosecute any alcohol or drug abuse patient.[facility] CenterIn the event this information is protected by the Federal Confidentiality of Alcohol and Drug Abuse Patient Records regulations: The Federal rules restrict any use of the information to criminally investigate or prosecute any alcohol or drug abuse patient.[facility] CenterIn the event this information is protected by the Federal Confidentiality of Alcohol and Drug Abuse Patient Records regulations: The Federal rules restrict any use of the information to criminally investigate or prosecute any alcohol or drug abuse patient.[facility] CenterIn the event this information is protected by the Federal Confidentiality of Alcohol and Drug Abuse Patient Records regulations: The Federal rules restrict any use of the information to criminally investigate or prosecute any alcohol or drug abuse patient.[facility] CenterIn the event this information is protected by the Federal Confidentiality of Alcohol and Drug Abuse Patient Records regulations: The Federal rules restrict any use of the information to criminally investigate or prosecute any alcohol or drug abuse patient.[facility] CenterIn the event this information is protected by the Federal Confidentiality of Alcohol and Drug Abuse Patient Records regulations: The Federal rules restrict any use of the information to criminally investigate or prosecute any alcohol or drug abuse patient.[facility] CenterIn the event this information is protected by the Federal Confidentiality of Alcohol and Drug Abuse Patient Records regulations: The Federal rules restrict any use of the information to criminally investigate or prosecute any alcohol or drug abuse patient.[facility] CenterIn the event this information is protected by the Federal Confidentiality of Alcohol and Drug Abuse Patient Records regulations: The Federal rules restrict any use of the information to criminally investigate or prosecute any alcohol or drug abuse patient.[facility] CenterIn the event this information is protected by the Federal Confidentiality of Alcohol and Drug Abuse Patient Records regulations: The Federal rules restrict any use of the information to criminally investigate or prosecute any alcohol or drug abuse patient.[facility] CenterIn the event this information is protected by the Federal Confidentiality of Alcohol and Drug Abuse Patient Records regulations: The Federal rules restrict any use of the information to criminally investigate or prosecute any alcohol or drug abuse patient.[facility] CenterIn the event this information is protected by the Federal Confidentiality of Alcohol and Drug Abuse Patient Records regulations: The Federal rules restrict any use of the information to criminally investigate or prosecute any alcohol or drug abuse patient.[facility] CenterIn the event this information is protected by the Federal Confidentiality of Alcohol and Drug Abuse Patient Records regulations: The Federal rules restrict any use of the information to criminally investigate or prosecute any alcohol or drug abuse patient.[facility] CenterIn the event this information is protected by the Federal Confidentiality of Alcohol and Drug Abuse Patient Records regulations: The Federal rules restrict any use of the information to criminally investigate or prosecute any alcohol or drug abuse patient.[facility] CenterIn the event this information is protected by the Federal Confidentiality of Alcohol and Drug Abuse Patient Records regulations: The Federal rules restrict any use of the information to criminally investigate or prosecute any alcohol or drug abuse patient.[facility] CenterIn the event this information is protected by the Federal Confidentiality of Alcohol and Drug Abuse Patient Records regulations: The Federal rules restrict any use of the information to criminally investigate or prosecute any alcohol or drug abuse patient.[facility] CenterIn the event this information is protected by the Federal Confidentiality of Alcohol and Drug Abuse Patient Records regulations: The Federal rules restrict any use of the information to criminally investigate or prosecute any alcohol or drug abuse patient.[facility] CenterIn the event this information is protected by the Federal Confidentiality of Alcohol and Drug Abuse Patient Records regulations: The Federal rules restrict any use of the information to criminally investigate or prosecute any alcohol or drug abuse patient.[facility] CenterIn the event this information is protected by the Federal Confidentiality of Alcohol and Drug Abuse Patient Records regulations: The Federal rules restrict any use of the information to criminally investigate or prosecute any alcohol or drug abuse patient.[facility] CenterIn the event this information is protected by the Federal Confidentiality of Alcohol and Drug Abuse Patient Records regulations: The Federal rules restrict any use of the information to criminally investigate or prosecute any alcohol or drug abuse patient.[facility] CenterIn the event this information is protected by the Federal Confidentiality of Alcohol and Drug Abuse Patient Records regulations: The Federal rules restrict any use of the information to criminally investigate or prosecute any alcohol or drug abuse patient.[facility] CenterIn the event this information is protected by the Federal Confidentiality of Alcohol and Drug Abuse Patient Records regulations: The Federal rules restrict any use of the information to criminally investigate or prosecute any alcohol or drug abuse patient.[facility] CenterIn the event this information is protected by the Federal Confidentiality of Alcohol and Drug Abuse Patient Records regulations: The Federal rules restrict any use of the information to criminally investigate or prosecute any alcohol or drug abuse patient.[facility] CenterIn the event this information is protected by the Federal Confidentiality of Alcohol and Drug Abuse Patient Records regulations: The Federal rules restrict any use of the information to criminally investigate or prosecute any alcohol or drug abuse patient.[facility] CenterIn the event this information is protected by the Federal Confidentiality of Alcohol and Drug Abuse Patient Records regulations: The Federal rules restrict any use of the information to criminally investigate or prosecute any alcohol or drug abuse patient.[facility] CenterIn the event this information is protected by the Federal Confidentiality of Alcohol and Drug Abuse Patient Records regulations: The Federal rules restrict any use of the information to criminally investigate or prosecute any alcohol or drug abuse patient.[facility] CenterIn the event this information is protected by the Federal Confidentiality of Alcohol and Drug Abuse Patient Records regulations: The Federal rules restrict any use of the information to criminally investigate or prosecute any alcohol or drug abuse patient.[facility] CenterIn the event this information is protected by the Federal Confidentiality of Alcohol and Drug Abuse Patient Records regulations: The Federal rules restrict any use of the information to criminally investigate or prosecute any alcohol or drug abuse patient.[facility] CenterIn the event this information is protected by the Federal Confidentiality of Alcohol and Drug Abuse Patient Records regulations: The Federal rules restrict any use of the information to criminally investigate or prosecute any alcohol or drug abuse patient.[facility] CenterIn the event this information is protected by the Federal Confidentiality of Alcohol and Drug Abuse Patient Records regulations: The Federal rules restrict any use of the information to criminally investigate or prosecute any alcohol or drug abuse patient.[facility] CenterIn the event this information is protected by the Federal Confidentiality of Alcohol and Drug Abuse Patient Records regulations: The Federal rules restrict any use of the information to criminally investigate or prosecute any alcohol or drug abuse patient.[facility] CenterIn the event this information is protected by the Federal Confidentiality of Alcohol and Drug Abuse Patient Records regulations: The Federal rules restrict any use of the information to criminally investigate or prosecute any alcohol or drug abuse patient.[facility] CenterIn the event this information is protected by the Federal Confidentiality of Alcohol and Drug Abuse Patient Records regulations: The Federal rules restrict any use of the information to criminally investigate or prosecute any alcohol or drug abuse patient.[facility] CenterIn the event this information is protected by the Federal Confidentiality of Alcohol and Drug Abuse Patient Records regulations: The Federal rules restrict any use of the information to criminally investigate or prosecute any alcohol or drug abuse patient.[facility] CenterIn the event this information is protected by the Federal Confidentiality of Alcohol and Drug Abuse Patient Records regulations: The Federal rules restrict any use of the information to criminally investigate or prosecute any alcohol or drug abuse patient.[facility] CenterIn the event this information is protected by the Federal Confidentiality of Alcohol and Drug Abuse Patient Records regulations: The Federal rules restrict any use of the information to criminally investigate or prosecute any alcohol or drug abuse patient.[facility] CenterIn the event this information is protected by the Federal Confidentiality of Alcohol and Drug Abuse Patient Records regulations: The Federal rules restrict any use of the information to criminally investigate or prosecute any alcohol or drug abuse patient.[facility] CenterIn the event this information is protected by the Federal Confidentiality of Alcohol and Drug Abuse Patient Records regulations: The Federal rules restrict any use of the information to criminally investigate or prosecute any alcohol or drug abuse patient.[facility] CenterIn the event this information is protected by the Federal Confidentiality of Alcohol and Drug Abuse Patient Records regulations: The Federal rules restrict any use of the information to criminally investigate or prosecute any alcohol or drug abuse patient.[facility] CenterIn the event this information is protected by the Federal Confidentiality of Alcohol and Drug Abuse Patient Records regulations: The Federal rules restrict any use of the information to criminally investigate or prosecute any alcohol or drug abuse patient.[facility] CenterIn the event this information is protected by the Federal Confidentiality of Alcohol and Drug Abuse Patient Records regulations: The Federal rules restrict any use of the information to criminally investigate or prosecute any alcohol or drug abuse patient.[facility] CenterIn the event this information is protected by the Federal Confidentiality of Alcohol and Drug Abuse Patient Records regulations: The Federal rules restrict any use of the information to criminally investigate or prosecute any alcohol or drug abuse patient.[facility] CenterIn the event this information is protected by the Federal Confidentiality of Alcohol and Drug Abuse Patient Records regulations: The Federal rules restrict any use of the information to criminally investigate or prosecute any alcohol or drug abuse patient.[facility] CenterIn the event this information is protected by the Federal Confidentiality of Alcohol and Drug Abuse Patient Records regulations: The Federal rules restrict any use of the information to criminally investigate or prosecute any alcohol or drug abuse patient.[facility] CenterIn the event this information is protected by [...] or prosecute any alcohol or drug abuse patient.[facility] CenterIn the event this information is protected by the Federal Confidentiality of Alcohol and Drug Abuse Patient Records regulations: The Federal rules restrict any use of the information to criminally investigate or prosecute any alcohol or drug abuse patient.[facility] CenterIn the event this information is protected by the Federal Confidentiality of Alcohol and Drug Abuse Patient Records regulations: The Federal rules restrict any use of the information to criminally investigate or prosecute any alcohol or drug abuse patient.[facility] CenterIn the event this information is protected by the Federal Confidentiality of Alcohol and Drug Abuse Patient Records regulations: The Federal rules restrict any use of the information to criminally investigate or prosecute any alcohol or drug abuse patient.[facility] CenterIn the event this information is protected by the Federal Confidentiality of Alcohol and Drug Abuse Patient Records regulations: The Federal rules restrict any use of the information to criminally investigate or prosecute any alcohol or drug abuse patient.[facility] CenterIn the event this information is protected by the Federal Confidentiality of Alcohol and Drug Abuse Patient Records regulations: The Federal rules restrict any use of the information to criminally investigate or prosecute any alcohol or drug abuse patient.[facility] CenterIn the event this information is protected by the Federal Confidentiality of Alcohol and Drug Abuse Patient Records regulations: The Federal rules restrict any use of the information to criminally investigate or prosecute any alcohol or drug abuse patient.[facility] CenterIn the event this information is protected by the Federal Confidentiality of Alcohol and Drug Abuse Patient Records regulations: The Federal rules restrict any use of the information to criminally investigate or prosecute any alcohol or drug abuse patient.[facility] CenterIn the event this information is protected by the Federal Confidentiality of Alcohol and Drug Abuse Patient Records regulations: The Federal rules restrict any use of the information to criminally investigate or prosecute any alcohol or drug abuse patient.[facility] CenterIn the event this information is protected by the Federal Confidentiality of Alcohol and Drug Abuse Patient Records regulations: The Federal rules restrict any use of the information to criminally investigate or prosecute any alcohol or drug abuse patient.[facility] CenterIn the event this information is protected by the Federal Confidentiality of Alcohol and Drug Abuse Patient Records regulations: The Federal rules restrict any use of the information to criminally investigate or prosecute any alcohol or drug abuse patient.[facility] CenterIn the event this information is protected by the Federal Confidentiality of Alcohol and Drug Abuse Patient Records regulations: The Federal rules restrict any use of the information to criminally investigate or prosecute any alcohol or drug abuse patient.[facility] CenterIn the event this information is protected by the Federal Confidentiality of Alcohol and Drug Abuse Patient Records regulations: The Federal rules restrict any use of the information to criminally investigate or prosecute any alcohol or drug abuse patient.[facility] CenterIn the event this information is protected by the Federal Confidentiality of Alcohol and Drug Abuse Patient Records regulations: The Federal rules restrict any use of the information to criminally investigate or prosecute any alcohol or drug abuse patient.[facility] CenterIn the event this information is protected by the Federal Confidentiality of Alcohol and Drug Abuse Patient Records regulations: The Federal rules restrict any use of the information to criminally investigate or prosecute any alcohol or drug abuse patient.[facility] CenterIn the event this information is protected by the Federal Confidentiality of Alcohol and Drug Abuse Patient Records regulations: The Federal rules restrict any use of the information to criminally investigate or prosecute any alcohol or drug abuse patient.[facility] CenterIn the event this information is protected by the Federal Confidentiality of Alcohol and Drug Abuse Patient Records regulations: The Federal rules restrict any use of the information to criminally investigate or prosecute any alcohol or drug abuse patient.[facility] CenterIn the event this information is protected by the Federal Confidentiality of Alcohol and Drug Abuse Patient Records regulations: The Federal rules restrict any use of the information to criminally investigate or prosecute any alcohol or drug abuse patient.[facility] CenterIn the event this information is protected by the Federal Confidentiality of Alcohol and Drug Abuse Patient Records regulations: The Federal rules restrict any use of the information to criminally investigate or prosecute any alcohol or drug abuse patient.[facility] CenterIn the event this information is protected by the Federal Confidentiality of Alcohol and Drug Abuse Patient Records regulations: The Federal rules restrict any use of the information to criminally investigate or prosecute any alcohol or drug abuse patient.[facility] CenterIn the event this information is protected by the Federal Confidentiality of Alcohol and Drug Abuse Patient Records regulations: The Federal rules restrict any use of the information to criminally investigate or prosecute any alcohol or drug abuse patient.[facility] CenterIn the event this information is protected by the Federal Confidentiality of Alcohol and Drug Abuse Patient Records regulations: The Federal rules restrict any use of the information to criminally investigate or prosecute any alcohol or drug abuse patient.[facility] CenterIn the event this information is protected by the Federal Confidentiality of Alcohol and Drug Abuse Patient Records regulations: The Federal rules restrict any use of the information to criminally investigate or prosecute any alcohol or drug abuse patient.[facility] CenterIn the event this information is protected by the Federal Confidentiality of Alcohol and Drug Abuse Patient Records regulations: The Federal rules restrict any use of the information to criminally investigate or prosecute any alcohol or drug abuse patient.[facility] CenterIn the event this information is protected by the Federal Confidentiality of Alcohol and Drug Abuse Patient Records regulations: The Federal rules restrict any use of the information to criminally investigate or prosecute any alcohol or drug abuse patient.[facility] CenterIn the event this information is protected by the Federal Confidentiality of Alcohol and Drug Abuse Patient Records regulations: The Federal rules restrict any use of the information to criminally investigate or prosecute any alcohol or drug abuse patient.[facility] CenterIn the event this information is protected by the Federal Confidentiality of Alcohol and Drug Abuse Patient Records regulations: The Federal rules restrict any use of the information to criminally investigate or prosecute any alcohol or drug abuse patient.[facility] CenterIn the event this information is protected by the Federal Confidentiality of Alcohol and Drug Abuse Patient Records regulations: The Federal rules restrict any use of the information to criminally investigate or prosecute any alcohol or drug abuse patient.[facility] CenterIn the event this information is protected by the Federal Confidentiality of Alcohol and Drug Abuse Patient Records regulations: The Federal rules restrict any use of the information to criminally investigate or prosecute any alcohol or drug abuse patient.[facility] CenterIn the event this information is protected by the Federal Confidentiality of Alcohol and Drug Abuse Patient Records regulations: The Federal rules restrict any use of the information to criminally investigate or prosecute any alcohol or drug abuse patient.[facility] CenterIn the event this information is protected by the Federal Confidentiality of Alcohol and Drug Abuse Patient Records regulations: The Federal rules restrict any use of the information to criminally investigate or prosecute any alcohol or drug abuse patient.[facility] CenterIn the event this information is protected by the Federal Confidentiality of Alcohol and Drug Abuse Patient Records regulations: The Federal rules restrict any use of the information to criminally investigate or prosecute any alcohol or drug abuse patient.[facility] CenterIn the event this information is protected by the Federal Confidentiality of Alcohol and Drug Abuse Patient Records regulations: The Federal rules restrict any use of the information to criminally investigate or prosecute any alcohol or drug abuse patient.[facility] CenterIn the event this information is protected by the Federal Confidentiality of Alcohol and Drug Abuse Patient Records regulations: The Federal rules restrict any use of the information to criminally investigate or prosecute any alcohol or drug abuse patient.[facility] CenterIn the event this information is protected by the Federal Confidentiality of Alcohol and Drug Abuse Patient Records regulations: The Federal rules restrict any use of the information to criminally investigate or prosecute any alcohol or drug abuse patient.[facility] CenterIn the event this information is protected by the Federal Confidentiality of Alcohol and Drug Abuse Patient Records regulations: The Federal rules restrict any use of the information to criminally investigate or prosecute any alcohol or drug abuse patient.[facility] CenterIn the event this information is protected by the Federal Confidentiality of Alcohol and Drug Abuse Patient Records regulations: The Federal rules restrict any use of the information to criminally investigate or prosecute any alcohol or drug abuse patient.[facility] CenterIn the event this information is protected by the Federal Confidentiality of Alcohol and Drug Abuse Patient Records regulations: The Federal rules restrict any use of the information to criminally investigate or prosecute any alcohol or drug abuse patient.[facility] CenterIn the event this information is protected by the Federal Confidentiality of Alcohol and Drug Abuse Patient Records regulations: The Federal rules restrict any use of the information to criminally investigate or prosecute any alcohol or drug abuse patient.[facility] CenterIn the event this information is protected by the Federal Confidentiality of Alcohol and Drug Abuse Patient Records regulations: The Federal rules restrict any use of the information to criminally investigate or prosecute any alcohol or drug abuse patient.[facility] CenterIn the event this information is protected by the Federal Confidentiality of Alcohol and Drug Abuse Patient Records regulations: The Federal rules restrict any use of the information to criminally investigate or prosecute any alcohol or drug abuse patient.[facility] CenterIn the event this information is protected by the Federal Confidentiality of Alcohol and Drug Abuse Patient Records regulations: The Federal rules restrict any use of the information to criminally investigate or prosecute any alcohol or drug abuse patient.[facility] CenterIn the event this information is protected by the Federal Confidentiality of Alcohol and Drug Abuse Patient Records regulations: The Federal rules restrict any use of the information to criminally investigate or prosecute any alcohol or drug abuse patient.[facility] CenterIn the event this information is protected by the Federal Confidentiality of Alcohol and Drug Abuse Patient Records regulations: The Federal rules restrict any use of the information to criminally investigate or prosecute any alcohol or drug abuse patient.[facility] CenterIn the event this information is protected by the Federal Confidentiality of Alcohol and Drug Abuse Patient Records regulations: The Federal rules restrict any use of the information to criminally investigate or prosecute any alcohol or drug abuse patient.[facility] CenterIn the event this information is protected by the Federal Confidentiality of Alcohol and Drug Abuse Patient Records regulations: The Federal rules restrict any use of the information to criminally investigate or prosecute any alcohol or drug abuse patient.[facility] CenterIn the event this information is protected by the Federal Confidentiality of Alcohol and Drug Abuse Patient Records regulations: The Federal rules restrict any use of the information to criminally investigate or prosecute any alcohol or drug abuse patient.[facility] CenterIn the event this information is protected by the Federal Confidentiality of Alcohol and Drug Abuse Patient Records regulations: The Federal rules restrict any use of the information to criminally investigate or prosecute any alcohol or drug abuse patient.[facility] CenterIn the event this information is protected by the Federal Confidentiality of Alcohol and Drug Abuse Patient Records regulations: The Federal rules restrict any use of the information to criminally investigate or prosecute any alcohol or drug abuse patient.[facility] CenterIn the event this information is protected by [...] or prosecute any alcohol or drug abuse patient.[facility] CenterIn the event this information is protected by the Federal Confidentiality of Alcohol and Drug Abuse Patient Records regulations: The Federal rules restrict any use of the information to criminally investigate or prosecute any alcohol or drug abuse patient.[facility] CenterIn the event this information is protected by the Federal Confidentiality of Alcohol and Drug Abuse Patient Records regulations: The Federal rules restrict any use of the information to criminally investigate or prosecute any alcohol or drug abuse patient.[facility] CenterIn the event this information is protected by the Federal Confidentiality of Alcohol and Drug Abuse Patient Records regulations: The Federal rules restrict any use of the information to criminally investigate or prosecute any alcohol or drug abuse patient.[facility] CenterIn the event this information is protected by the Federal Confidentiality of Alcohol and Drug Abuse Patient Records regulations: The Federal rules restrict any use of the information to criminally investigate or prosecute any alcohol or drug abuse patient.[facility] CenterIn the event this information is protected by the Federal Confidentiality of Alcohol and Drug Abuse Patient Records regulations: The Federal rules restrict any use of the information to criminally investigate or prosecute any alcohol or drug abuse patient.[facility] CenterIn the event this information is protected by the Federal Confidentiality of Alcohol and Drug Abuse Patient Records regulations: The Federal rules restrict any use of the information to criminally investigate or prosecute any alcohol or drug abuse patient.[facility] CenterIn the event this information is protected by the Federal Confidentiality of Alcohol and Drug Abuse Patient Records regulations: The Federal rules restrict any use of the information to criminally investigate or prosecute any alcohol or drug abuse patient.[facility] CenterIn the event this information is protected by the Federal Confidentiality of Alcohol and Drug Abuse Patient Records regulations: The Federal rules restrict any use of the information to criminally investigate or prosecute any alcohol or drug abuse patient.[facility] CenterIn the event this information is protected by the Federal Confidentiality of Alcohol and Drug Abuse Patient Records regulations: The Federal rules restrict any use of the information to criminally investigate or prosecute any alcohol or drug abuse patient.[facility] CenterIn the event this information is protected by the Federal Confidentiality of Alcohol and Drug Abuse Patient Records regulations: The Federal rules restrict any use of the information to criminally investigate or prosecute any alcohol or drug abuse patient.[facility] CenterIn the event this information is protected by the Federal Confidentiality of Alcohol and Drug Abuse Patient Records regulations: The Federal rules restrict any use of the information to criminally investigate or prosecute any alcohol or drug abuse patient.[facility] Reason for Visit (unrecogniz ed section and content) Reason Comments Diabetes Specialty Diagnoses / Procedures Referred By Contac t Referred To Contact FAMILY MEDICINE Diagnoses PCP follow up Procedures PCP follow up Jese Zheng, [address] [place] [address] Phone: tel: fax: [facility] [place] [address] [place] [address] Phone: tel: Referral ID Status Reason Start Date Expiration Date Visits Requested Visits Authorized [id number] Authorized Financial Clearance Required - Self Pay Patient Cleared - Qualified HCAP/FA MARIA EUGENIA Referral Complete 09/23/2024 12/22/2024 99 [phone] Reason Comments F/U 3 Month Specialty Diagnoses / Procedures Referred By Contac t Referred To Contact PHARMACY Diagnoses Type 2 diabetes mellitus without complications Procedures EST PHARMACY VISIT Self Pharm Med [facility] [address] [place] [address] Referral ID Status Reason Start Date Expiration Date V isits Requested Visits Authorized [id number] Closed OON/Self Pay Override 06/06/2023 07/21/2023 1 1 Reason Comments Follow Up Reason Comments Patient Question Reason Comments Radiology CT Specialty Diagnoses / Procedures [facility] Diagnoses Adverse effect of treatment, subsequent encounter Procedures CT ABD/PEL WO IVCON CT ABD & PELVIS W/O CONTRAST Brandy Ramirez MD [address] [place] [address] Ct Imaging Referral ID Status Reason Start Date Expiration Date V isits Requested Visits Authorized [id number] Closed Auto-Generate d Referral 10/13/2021 12/12/2021 2 [...] EST SAME DAY Self Mitchel Carney MD [address] [place] [address] Referral ID Status Reason Start Date Expiration Date V isits Requested Visits Authorized [id number] Outside PCP 04/05/2023 07/04/2023 1 1 Reason Comments Results Covid Positive Paxlovid Specialty Diagnoses / Procedures Referred By Contac t Referred To Contact CT IMAGING Diagnoses SOB (shortness of breath) Wheezing Pulmonary nodule Procedures CT CHEST WO IVCON DIAGNOSTIC COMPUTED TOMOGRAPHY THORAX W/O CNTRST Jese hZeng, DO [address] [place] [address] [place] [address] Referral ID Status Reason Start Date Expiration Date V isits Requested Visits Authorized [id number] Denied Auto-Generat ed Referral Patient Cleared - Admin/Chairm an/Director advise to proceed or did not respond 02/19/2023 03/20/2024 1 0 Specialty Diagnoses / Procedures Referred By Contac t Referred To Contact CT IMAGING Diagnoses Nausea Right flank pain RUQ pain Chronic RLQ pain Nausea and vomiting, unspecified vomiting type Procedures CT ABD/PEL WO IVCON CT ABD & PELVIS W/O CONTRAST Ankita Green, SWEATBAND SEPARATOR.[employer] UP [address] [place] [address] [place] [address] Referral ID Status Reason Start Date Expiration Date V isits Requested Visits Authorized [id number] Denied Auto-Generat ed Referral Patient Cleared - [...] IMAG INC GB W/PHARMA INTERVENJ Ankita Green, SWEATBAND SEPARATOR.[employer] [address] [place] [address] Molecular & Functional Imaging [address] [place] [address] Referral ID Status Reason Start Date Expiration Date V isits Requested Visits Authorized [id number] Closed Auto-Generate d Referral 11/08/2022 12/08/2023 1 [...] ABDOMINAL REAL TIME W/IMAGE LIMITED Ankita Green, SWEATBAND SEPARATOR.[employer] [address] [place] [address] [place] [address] Referral ID Status Reason Start Date Expiration Date V isits Requested Visits Authorized [id number] Closed Auto-Generate d Referral 11/08/2022 12/08/2023 1 1 Reason Onset Date Comments F/U 3 Month Immunizations 05/27/2023 Flu vaccination Specialty Diagnoses / Procedures Referred By Contac t Referred To Contact Family Medicine / FAMILY MEDICINE Diagnoses SOB (shortness of breath) 3 Month follow up Procedures 4C EST Self Jese Zheng DO [address] [place] [address] Referral ID Status Reason Start Date Expiration Date Visits Re quested Visits Authorized [id number] Closed 05/27/2023 07/21/2023 1 1 Reason Comments Medication Problem Reason Comments Patient Update Referral ID Status Reason Start Date Expiration Date Visits Requested Visits Authorized [id number] Authorized OON/Self Pay Override 07/21/2023 3 3 Specialty Diagnoses / Procedures Referred By Contac t Referred To Contact PHARMACY Diagnoses Follow up for DM management Procedures EST Pharmacy Visit Self Pharm Med [facility] [address] [phone] Referral ID Status Reason Start Date Expiration Date V isits Requested Visits Authorized [id number] Closed OON/Self Pay Override Financial Clearance Required [...] Referred To Contact Radiology / [facility] Diagnoses ml Procedures XR CHEST Jese Zheng DO [address] [place] [address] Radio General [facility] [address] [place] [address] Referral ID Status Reason Start Date Expiration Date Visits Re quested Visits Authorized [id number] Closed 02/19/2023 07/21/2023 1 1 Reason Comments Recheck Follow up from last visit- URI symptoms started again on Saturday Reason Comments Appointment Pharmacist Visit Res cheduling Reason Comments Patient Question Reason Comments New Specialty Diagnoses / Procedures Referred By Colleen coronado Referred To Contact Orthopedics Diagnoses Right hand pain Procedures CONSULT TO ORTHOPAEDICS OFFICE/OUTPATIENT NEW HIGH MDM 60 MINUTES Jese Zheng DO [address] [place] [address] Referral ID Status Reason Start Date Expiration Date V isits Requested Visits Authorized [id number] Closed PCP Requested Referral 07/17/2024 07/17/2025 1 1 Reason Onset Date Comments Refill Request 09/09/2024 Reason Onset Date Comments Refill Request 11/16/2024 Reason Onset Date Comments Refill Request 01/11/2025 Reason Comments Shortness of Breath Reason Comments Cough Wheezing Shortness of Breath Care Teams (unrecognized sec tion and content) Lead Refinery Supervisor Relationship Specialty Start Date End Date Jese Zheng DO [address] [place] [address] PCP - General Family Practice 10/07/13 [facility] [address] [place] [address] Pharmacist Pharmacy 04/30/18 Lead Refinery Supervisor Relationship Specialty Start Date End Date Jese Zheng DO [address] [place] [address] PCP - General Family Practice 10/07/13 Shayan [facility]Washington [facility] [address] [place] [address] Pharmacist Pharmacy 04/30/18 Lead Refinery Supervisor Relationship Specialty Start Date End Date Jese Zheng, DO [address] [place] [address] PCP - General Family Practice 10/07/13 [place], Shayan, [facility] [address] [place] [address] Pharmacist Pharmacy 04/30/18 Lead Refinery Supervisor Relationship Specialty Start Date End Date Jese Zheng, DO [address] [place] [address] PCP - General Family Practice 10/07/13 Leeanne Martinezily, [facility] [address] [place] [address] Pharmacist Pharmacy 04/30/18 Lead Refinery Supervisor Relationship Specialty Start Date End Date Jese Zheng, DO [address] [place] [address] PCP - General Family Practice 10/07/13 Leeanne Martinezily, [facility] [address] [place] [address] Pharmacist Pharmacy 04/30/18 Lead Refinery Supervisor Relationship Specialty Start Date End Date Jese Zheng, DO [address] [place] [address] PCP - General Family Practice 10/07/13 eLeanne Martinezily, [facility] [address] [place] [address] Pharmacist Pharmacy 04/30/18 Lead Refinery Supervisor Relationship Specialty Start Date End Date Jese Zheng, DO [address] [place] [address] PCP - General Family Practice 10/07/13 Leeanne Martinezily, [facility] [address] [place] [address] Pharmacist Pharmacy 04/30/18 Lead Refinery Supervisor Relationship Specialty Start Date End Date Jese Zheng, DO [address] [place] [address] PCP - General Family Practice 10/07/13 Leeanne Martinezily, [facility] [address] [place] [address] Pharmacist Pharmacy 04/30/18 Lead Refinery Supervisor Relationship Specialty Start Date End Date Jese Zheng, DO [address] [place] [address] PCP - General Family Practice 10/07/13 Shayan Martinez, [facility] [address] [place] [address] Pharmacist Pharmacy 04/30/18 Lead Refinery Supervisor Relationship Specialty Start Date End Date Jese Zheng, DO [address] [place] [address] PCP - General Family Practice 10/07/13 Shayan Martinez, [facility] [address] [place] [address] Pharmacist Pharmacy 04/30/18 Lead Refinery Supervisor Relationship Specialty Start Date End Date Jese Zheng, DO [address] [place] [address] PCP - General Family Practice 10/07/13 Shayan Martinez, [facility] [address] [place] [address] Pharmacist Pharmacy 04/30/18 Lead Refinery Supervisor Relationship Specialty Start Date End Date Jese Zheng, DO [address] [place] [address] PCP - General Family Practice 10/07/13 Shayan Martinez, [facility] [address] [place] [address] Pharmacist Pharmacy 04/30/18 Lead Refinery Supervisor Relationship Specialty Start Date End Date Jese Zheng, DO [address] [place] [address] PCP - General Family Practice 10/07/13 [facility] [address] [place] [address] Pharmacist Pharmacy 04/30/18 Lead Refinery Supervisor Relationship Specialty Start Date End Date Jese Zheng, DO [address] [place] [address] PCP - General Family Practice 10/07/13 [facility] [address] [place] [address] Pharmacist Pharmacy 04/30/18 Lead Refinery Supervisor Relationship Specialty Start Date End Date Jese Zheng, DO [address] [place] [address] PCP - General Family Practice 10/07/13 [facility] [address] [place] [address] Pharmacist Pharmacy 04/30/18 Lead Refinery Supervisor Relationship Specialty Start Date End Date Jese Zheng, DO [address] [place] [address] PCP - General Family Practice 10/07/13 [facility]ayan [facility] [address] [place] [address] Pharmacist Pharmacy 04/30/18 Lead Refinery Supervisor Relationship Specialty Start Date End Date Jese Zheng, DO [address] [place] [address] PCP - General Family Practice 10/07/13 [facility]ayan [facility] [address] [place] [address] Pharmacist Pharmacy 04/30/18 Lead Refinery Supervisor Relationship Specialty Start Date End Date Jese Zheng, DO [address] [place] [address] PCP - General Family Medicine 10/07/13 Shayan [facility] [address] [place] [address] Pharmacist Pharmacy 04/30/18 Lead Refinery Supervisor Relationship Specialty Start Date End Date Jese Zheng, DO [address] [place] [address] PCP - General Family Medicine 10/07/13 Juan, [facility] [address] [place] [address] Pharmacist Pharmacy 04/30/18 Lead Refinery Supervisor Relationship Specialty Start Date End Date Jese Zheng, DO [address] [place] [address] PCP - General Family Medicine 10/07/13 [facility]ayan [facility] [address] [place] [address] Pharmacist Pharmacy 04/30/18 Lead Refinery Supervisor Relationship Specialty Start Date End Date Jese Zheng, DO [address] [place] [address] PCP - General Family Medicine 10/07/13 JuanShayanWashington [facility] [address] [place] [address] Pharmacist Pharmacy 04/30/18 Lead Refinery Supervisor Relationship Specialty Start Date End Date Jese Zheng, DO [address] [place] [address] PCP - General Family Medicine 10/07/13 Shayan Martinez, [facility] [address] [place] [address] Pharmacist Pharmacy 04/30/18 Lead Refinery Supervisor Relationship Specialty Start Date End Date Jese Zheng, DO [address] [place] [address] PCP - General Family Medicine 10/07/13 La HondaShayan, [facility] [address] [place] [address] Pharmacist Pharmacy 04/30/18 Lead Refinery Supervisor Relationship Specialty Start Date End Date Jese Zheng, DO [address] [place] [address] PCP - General Family Medicine 10/07/13 La HondaLeeanne oliveraily, [facility] [address] [place] [address] Pharmacist Pharmacy 04/30/18 Lead Refinery Supervisor Relationship Specialty Start Date End Date Jese Zheng, DO [address] [place] [address] PCP - General Family Medicine 10/07/13 Shayan Martinez, [facility] [address] [place] [address] Pharmacist Pharmacy 04/30/18 Lead Refinery Supervisor Relationship Specialty Start Date End Date Jese Zheng, DO [address] [place] [address] PCP - General Family Medicine 10/07/13 Juan, Shayan, [facility] [address] [place] [address] Pharmacist Pharmacy 04/30/18 Lead Refinery Supervisor Relationship Specialty Start Date End Date Jese Zheng, DO [address] [place] [address] PCP - General Family Medicine 10/07/13 Shayan Martinez, [facility] [address] [place] [address] Pharmacist Pharmacy 04/30/18 Lead Refinery Supervisor Relationship Specialty Start Date End Date Jese Zheng, DO [address] [place] [address] PCP - General Family Medicine 10/07/13 La HondaShayan, [facility] [address] [place] [address] Pharmacist Pharmacy 04/30/18 Lead Refinery Supervisor Relationship Specialty Start Date End Date Jese Zheng, DO [address] [place] [address] PCP - General Family Medicine 10/07/13 JuanShayan, [facility] [address] [place] [address] Pharmacist Pharmacy 04/30/18 Lead Refinery Supervisor Relationship Specialty Start Date End Date Jese Zheng, DO [address] [place] [address] PCP - General Family Medicine 10/07/13 Shayan Martinez, [facility] [address] [place] [address] Pharmacist Pharmacy 04/30/18 Lead Refinery Supervisor Relationship Specialty Start Date End Date Jese Zheng, DO [address] [place] [address] PCP - General Family Medicine 10/07/13 JuanShayan, [facility] [address] [place] [address] Pharmacist Pharmacy 04/30/18 Lead Refinery Supervisor Relationship Specialty Start Date End Date Jese Zheng, DO [address] [place] [address] PCP - General Family Medicine 10/07/13 La HondaShayan, [facility] [address] [place] [address] Pharmacist Pharmacy 04/30/18 Lead Refinery Supervisor Relationship Specialty Start Date End Date Jese Zheng, DO [address] [place] [address] PCP - General Family Medicine 10/07/13 [place] Shayan, [facility] [address] [place] [address] Pharmacist Pharmacy 04/30/18 Lead Refinery Supervisor Relationship Specialty Start Date End Date Jese Zheng, DO [address] [place] [address] PCP - General Family Medicine 10/07/13 [place] Shayan, [facility] [address] [place] [address] Pharmacist Pharmacy 04/30/18 Lead Refinery Supervisor Relationship Specialty Start Date End Date Jese Zheng, DO [address] [place] [address] PCP - General Family Medicine 10/07/13 [place] Shayan, [facility] [address] [place] [address] Pharmacist Pharmacy 04/30/18 Lead Refinery Supervisor Relationship Specialty Start Date End Date Jese Zheng, DO [address] [place] [address] PCP - General Family Medicine 10/07/13 [place] Shayan, [facility] [address] [place] [address] Pharmacist Pharmacy 04/30/18 Lead Refinery Supervisor Relationship Specialty Start Date End Date Jese Zheng DO [address] [place] [address] PCP - General Family Medicine 10/07/13 La Honda, Shayan, [facility] ED [address] [place] [address] Pharmacist Pharmacy 04/30/18 Team Status: Active Member Role Status Dates Dr. Jese Zheng , DO Family Provider Active Dr. Jese Zheng , Primary Care Provider Active Team Status: Inactive Member Role Status Dates Dr. Jese Zheng , DO Primary Care Provider Active Ankita Green DIVING JUDGE, DIVING JUDGE-C Attending Provider, Frankie morris Provider Active Lead Refinery Supervisor Relationship Specialty Start Date End Date Jese Zheng DO [address] [place] [address] PCP - General Family Medicine 10/07/13 La HondaLeeanne oliveraily, [facility] ED [address] [place] [address] Pharmacist Pharmacy 04/30/18 Lead Refinery Supervisor Relationship Specialty Start Date End Date Jese Zheng DO [address] [place] [address] PCP - General Family Medicine 10/07/13 Shayan Martinez, [facility] ED [address] [place] [address] Pharmacist Pharmacy 04/30/18 Lead Refinery Supervisor Relationship Specialty Start Date End Date Jese Zheng DO [address] [place] [address] PCP - General Family Medicine 10/07/13 La Honda Shayan, [facility] ED [address] [place] [address] Pharmacist Pharmacy 04/30/18 Lead Refinery Supervisor Relationship Specialty Start Date End Date Jese Zheng DO [address] [place] [address] PCP - General Family Medicine 10/07/13 Leeanne Martinezily, [facility] ED [address] [place] [address] Pharmacist Pharmacy 04/30/18 Lead Refinery Supervisor Relationship Specialty Start Date End Date Jese Zheng DO [address] [place] [address] PCP - General Family Medicine 10/07/13 Shayan Martinez, [facility] ED [address] [place] [address] Pharmacist Pharmacy 04/30/18 Lead Refinery Supervisor Relationship Specialty Start Date End Date Jese Zheng DO [address] [place] [address] PCP - General Family Medicine 10/07/13 [facility] [address] [place] [address] Pharmacist Pharmacy 04/30/18 Lead Refinery Supervisor Relationship Specialty Start Date End Date Jese Zheng DO [address] [place] [address] PCP - General Family Medicine 10/07/13 Shayan Martinez, [facility] ED [address] [place] [address] Pharmacist Pharmacy 04/30/18 Lead Refinery Supervisor Relationship Specialty Start Date End Date Jese Zheng DO [address] [place] [address] PCP - General Family Medicine 10/07/13 Shayan Martinez, [facility] ED [address] [place] [address] Pharmacist Pharmacy 04/30/18 Lead Refinery Supervisor Relationship Specialty Start Date End Date Jese Zheng DO [address] [place] [address] PCP - General Family Medicine 10/07/13 Leeanne Martinezily, [facility] ED [address] [place] [address] Pharmacist Pharmacy 04/30/18 Lead Refinery Supervisor Relationship Specialty Start Date End Date Jese Zheng DO [address] [place] [address] PCP - General Family Medicine 10/07/13 [facility] [address] [place] [address] Pharmacist Pharmacy 04/30/18 Lead Refinery Supervisor Relationship Specialty Start Date End Date Jese Zheng DO [address] [place] [address] PCP - General Family Medicine 10/07/13 Susana Garcia, [facility] ED [address] [place] [address] Pharmacist Pharmacy 05/09/23 Lead Refinery Supervisor Relationship Specialty Start Date End Date Jese Zheng DO [address] [place] [address] PCP - General Family Medicine 10/07/13 Juan, Shayan, [facility] ED [address] [place] [address] Pharmacist Pharmacy 04/30/18 05/08/23 Lead Refinery Supervisor Relationship Specialty Start Date End Date Jese Zheng DO [address] [place] [address] PCP - General Family Medicine 10/07/13 Shayan Martinez, [facility] ED [address] [place] [address] Pharmacist Pharmacy 04/30/18 05/08/23 Lead Refinery Supervisor Relationship Specialty Start Date End Date Jese Zheng DO [address] [place] [address] PCP - General Family Medicine 10/07/13 La Honda, Shayan, [facility] ED [address] [place] [address] Pharmacist Pharmacy 04/30/18 05/08/23 Lead Refinery Supervisor Relationship Specialty Start Date End Date Jese Zheng DO [address] [place] [address] PCP - General Family Medicine 10/07/13 La Honda, Shayan, [facility] ED [address] [place] [address] Pharmacist Pharmacy 04/30/18 05/08/23 Lead Refinery Supervisor Relationship Specialty Start Date End Date Jese Zheng DO [address] [place] [address] PCP - General Family Medicine 10/07/13 [place] Honda Shayan, [facility] ED [address] [place] [address] Pharmacist Pharmacy 04/30/18 05/08/23 Lead Refinery Supervisor Relationship Specialty Start Date End Date Jese Zheng DO [address] [place] [address] PCP - General Family Medicine 10/07/13 Shayan Martinez, [facility] ED [address] [facility] [address] Pharmacist Pharmacy 04/30/18 05/08/23 Lead Refinery Supervisor Relationship Specialty Start Date End Date Jese Zheng DO [address] [facility] [address] PCP - General Family Medicine 10/07/13 Shayan Martinez, [facility] ED [address] [facility] [address] Pharmacist Pharmacy 04/30/18 05/08/23 Lead Refinery Supervisor Relationship Specialty Start Date End Date Jese Zheng DO [address] [place] [address] PCP - General Family Medicine 10/07/13 [place]ina [place]ataJ[place] [address] [place] [address] Pharmacist Pharmacy 05/09/23 Lead Refinery Supervisor Relationship Specialty Start Date End Date Jese Zheng DO [address] [facility] [address] PCP - General Family Medicine 10/07/13 Susana Garcia, [facility] ED [address] [place] [address] Pharmacist Pharmacy 05/09/23 Lead Refinery Supervisor Relationship Specialty Start Date End Date Jese Zheng DO [address] [place] [address] PCP - General Family Medicine 10/07/13 Susana Garcia, [facility] ED [address] [place] [address] Pharmacist Pharmacy 05/09/23 Lead Refinery Supervisor Relationship Specialty Start Date End Date Jese Zheng DO [address] [place] [address] PCP - General Family Medicine 10/07/13 [place] [address] [place] [address] Pharmacist Pharmacy 05/09/23 Lead Refinery Supervisor Relationship Specialty Start Date End Date Jese Zheng DO [address] [place] [address] PCP - General Family Medicine 10/07/13 [place] [address] [place] [address] Pharmacist Pharmacy 05/09/23 Lead Refinery Supervisor Relationship Specialty Start Date End Date Jese Zheng DO [address] [place] [address] PCP - General Family Medicine 10/07/13 [place] [address] [place] [address] Pharmacist Pharmacy 05/09/23 Lead Refinery Supervisor Relationship Specialty Start Date End Date Jese Zheng DO [address] [place] [address] PCP - General Family Medicine 10/07/13 [place] [address] [place] [address] Pharmacist Pharmacy 05/09/23 Lead Refinery Supervisor Relationship Specialty Start Date End Date Jese Zheng DO [address] [facility] [address] PCP - General Family Medicine 10/07/13 Rupalwvrichard [place] [address] [place] [address] Pharmacist Pharmacy 05/09/23 Lead Refinery Supervisor Relationship Specialty Start Date End Date Jese Zheng DO [address] [place] [address] PCP - General Family Medicine 10/07/13 [place] [address] [place] [address] Pharmacist Pharmacy 05/09/23 Lead Refinery Supervisor Relationship Specialty Start Date End Date Jese Zheng DO [address] [place] [address] PCP - General Family Medicine 10/07/13 [place] [address] [place] [address] Pharmacist Pharmacy 05/09/23 Lead Refinery Supervisor Relationship Specialty Start Date End Date Jese Zheng DO [address] [place] [address] PCP - General Family Medicine 10/07/13 [place] [address] [place] [address] Pharmacist Pharmacy 05/09/23 Lead Refinery Supervisor Relationship Specialty Start Date End Date Jese Zheng DO [address] [place] [address] PCP - General Family Medicine 10/07/13 [place]oReinataJennifer [place] [address] [place] [address] Pharmacist Pharmacy 05/09/23 Lead Refinery Supervisor Relationship Specialty Start Date End Date Jese Zheng DO [address] [place] [address] PCP - General Family Medicine 10/07/13 Reina GarciataJennifer [place] [address] [place] [address] Pharmacist Pharmacy 05/09/23 Lead Refinery Supervisor Relationship Specialty Start Date End Date Jese Zheng DO [address] [place] [address] PCP - General Family Medicine 10/07/13 Jamarcus GarciaiettaJennifer [place] [address] [place] [address] Pharmacist Pharmacy 05/09/23 Lead Refinery Supervisor Relationship Specialty Start Date End Date Jese Zheng DO [address] [place] [address] PCP - General Family Medicine 10/07/13 [facility] [address] [place] [address] Pharmacist Pharmacy 05/09/23 Lead Refinery Supervisor Relationship Specialty Start Date End Date Jese Zheng DO [address] [place] [address] PCP - General Family Medicine 10/07/13 Radha, SusanaJennifer [place] [address] [place] [address] Pharmacist Pharmacy 05/09/23 Lead Refinery Supervisor Relationship Specialty Start Date End Date Jese Zheng DO [address] [facility] [address] PCP - General Family Medicine 10/07/13 [place] [address] [place] [address] Pharmacist Pharmacy 05/09/23 Lead Refinery Supervisor Relationship Specialty Start Date End Date Jese Zheng DO [address] [place] [address] PCP - General Family Medicine 10/07/13 [place] [address] [place] [address] Pharmacist Pharmacy 05/09/23 Lead Refinery Supervisor Relationship Specialty Start Date End Date Jese Zheng DO [address] [place] [address] PCP - General Family Medicine 10/07/13 Shayan Martinez, [facility] ED [address] [place] [address] Pharmacist Pharmacy 04/30/18 05/08/23 Lead Refinery Supervisor Relationship Specialty Start Date End Date Jese Zheng DO [address] [place] [address] PCP - General Family Medicine 10/07/13 [facility] [place] [address] [place] [address] Pharmacist Pharmacy 05/09/23 Lead Refinery Supervisor Relationship Specialty Start Date End Date Jese Zheng DO [address] [place] [address] PCP - General Family Medicine 10/07/13 Shayan Martinez, [facility] ED [address] [place] [address] Pharmacist Pharmacy 04/30/18 05/08/23 Lead Refinery Supervisor Relationship Specialty Start Date End Date Jese Zheng DO [address] [place] [address] PCP - General Family Medicine 10/07/13 La Honda, Shayan, [facility] ED [address] [place] [address] Pharmacist Pharmacy 04/30/18 05/08/23 Lead Refinery Supervisor Relationship Specialty Start Date End Date Jese Zheng DO [address] [place] [address] PCP - General Family Medicine 10/07/13 La Honda, Shayan, [facility] ED [address] [place] [address] Pharmacist Pharmacy 04/30/18 05/08/23 Lead Refinery Supervisor Relationship Specialty Start Date End Date Jese Zheng DO [address] [place] [address] PCP - General Family Medicine 10/07/13 Shayan Martinez, [facility] ED [address] [place] [address] Pharmacist Pharmacy 04/30/18 05/08/23 Lead Refinery Supervisor Relationship Specialty Start Date End Date Jese Zhegn DO [address] [place] [address] PCP - General Family Medicine 10/07/13 [place] [address] [place] [address] Pharmacist Pharmacy 05/09/23 Lead Refinery Supervisor Relationship Specialty Start Date End Date Jese Zheng DO [address] [place] [address] PCP - General Family Medicine 10/07/13 [place] [address] [place] [address] Pharmacist Pharmacy 05/09/23 Lead Refinery Supervisor Relationship Specialty Start Date End Date Jese Zheng DO [address] [place] [address] PCP - General Family Medicine 10/07/13 [place] [address] [place] [address] Pharmacist Pharmacy 05/09/23 Corrine Louise, [employer] [address] [place] [address] Emergency Medicine Specialist Family Medicine 06/28/24 Ankita Green, [employer] [address] [place] [address] Emergency Medicine Specialist Family Medicine 06/28/24 Lead Refinery Supervisor Relationship Specialty Start Date End Date Jese Zheng DO [address] [place] [address] PCP - General Family Medicine 10/07/13 [place] [address] [place] [address] Pharmacist Pharmacy 05/09/23 Corrine Louise, [employer] [address] [place] [address] [facility]ly [facility] 06/28/24 [facility], SWEATBAND SEPARATOR[employer] [address] [place] [address] Formerly [facility] 06/28/24 Lead Refinery Supervisor Relationship Specialty Start Date End Date Jese Zheng DO [address] [place] [address] PCP - General Family Medicine 10/07/13 [place] [address] [place] [address] Pharmacist Pharmacy 05/09/23 Corrine Louise, [employer] SEPAR[employer] [address] [place] [address] Formerly [facility] 06/28/24 JulianaAnkita, SWEATBAND SEPARATOR[employer] [address] [place] [address] Formerly [facility] 06/28/24 Lead Refinery Supervisor Relationship Specialty Start Date End Date Jese Zheng DO [address] [place] [address] PCP - General Family Medicine 10/07/13 [place] [address] [place] [address] Pharmacist Pharmacy 05/09/23 Corrine Louise, [employer] SEPAR[employer] [address] [place] [address] Emergency Medicine Specialist [facility] 06/28/24 [facility]ville[facility], SWEATBAND SEPARATOR[employer] [address] [place] [address] Emergency Medicine Specialist [facility] 06/28/24 Lead Refinery Supervisor Relationship Specialty Start Date End Date Jese Zheng DO [address] [place] [address] PCP - General Family Medicine 10/07/13 Susana GarciaJ[place]ifer [place] [address] [place] [address] Pharmacist Pharmacy 05/09/23 Corrine Louise, [employer] SEPAR[employer] [address] [place] [address] [facility]24 [facility], SWEATBAND SEPARATOR[employer] [address] [place] [place] [address] [facility] 06/28/24 Lead Refinery Supervisor Relationship Specialty Start Date End Date Jese Zheng DO [address] [place] [address] PCP - General Family Medicine 10/07/13 Sus[place] GarciaJ[place] [address] [place] [address] Pharmacist Pharmacy 05/09/23 Corrine Louise, S[employer] SEPAR[employer] [address] [place] [address] [facility] 06/28/24 [facility]ie[facility], SWEATBAND SEPARATOR[employer] [address] [place] [address] Formerly [facility] 06/28/24 Lead Refinery Supervisor Relationship Specialty Start Date End Date Jese Zheng DO [address] [place] [address] PCP - General Family Medicine 10/07/13 [place] [address] [place] [address] Pharmacist Pharmacy 05/09/23 Corrine Louise, SWE[employer]BAND SEPARATOR[employer] [address] [place] [address] Formerly [facility] 06/28/24 [facility], SWEATBAND SEPARATOR[employer] [address] [place] [address] Formerly [facility] 06/28/24 Lead Refinery Supervisor Relationship Specialty Start Date End Date Jese Zheng DO [address] [place] [address] PCP - General Family Medicine 10/07/13 [place] [address] [place] [address] Pharmacist Pharmacy 05/09/23 [facility]ville[facility], SWEATBAND SEPARATOR[employer] [address] [place] [address] Formerly [facility] 06/28/24 Lead Refinery Supervisor Relationship Specialty Start Date End Date Jese Zheng DO [address] [facility] [address] PCP - General Family Medicine 10/07/13 RupalwvReina leonJeffery [place] [address] [place] [address] Pharmacist Pharmacy 05/09/23 Ankita Green, SWE[employer]BAND SEPARATOR[employer] [address] [facility] [address] Emergency Medicine Specialist Family Medicine 06/28/24 Lead Refinery Supervisor Relationship Specialty Start Date End Date Jese Zheng DO [address] [facility] [address] PCP - General Family Medicine 10/07/13 Rupalcox branson [place] [place] [address] Pharmacist Pharmacy 05/09/23 Ankita Green, SWEATBAND SEPARATOR[employer] [address] [facility] [address] Emergency Medicine Specialist Family Medicine 06/28/24 Lead Refinery Supervisor Relationship Specialty Start Date End Date Jese Zheng DO [address] [facility] [address] PCP - General Family Medicine 10/07/13 [facility]ichardJamarcusSusanaCory [place] [address] [place] [address] Pharmacist Pharmacy 05/09/23 Ankita Green, SWEATBAND SEPARATOR[employer] [address] [facility] [address] Emergency Medicine Specialist Family Medicine 06/28/24 Natali Klein, SWE[employer] SEPARATOR[employer] [address] [place] [address] [facility] 01/04/25 Lead Refinery Supervisor Relationship Specialty Start Date End Date Jese Zheng DO [address] [place] [address] PCP - General Family Medicine 10/07/13 [place] [address] [place] [address] Pharmacist Pharmacy 05/09/23 Ankita Green, SWEATBAND SEPARATOR[employer] [address] [place] [address] [facility] 06/28/24 Natali Klein, SWEATBAND SEPARATOR[employer] [address] [place] [address] Formerly [facility] 01/04/25 Lead Refinery Supervisor Relationship Specialty Start Date End Date Jese Zheng DO [address] [place] [address] PCP - General Family Medicine 10/07/13 [facility] [place] [address] [place] [address] Pharmacist Pharmacy 05/09/23 Ankita Green SWEATBAND SEPARATOR[employer] [address] [place] [address] Emergency Medicine Specialist Family Medicine 06/28/24 Natali Klein SWEATBAND SEPARATOR[employer] [address] [place] [address] Emergency Medicine Specialist Family [facility] 01/04/25 Lead Refinery Supervisor Relationship Specialty Start Date End Date Jese Zheng DO [address] [place] [address] PCP - General Family Medicine 10/07/13 [place] [address] [place] [address] Pharmacist Pharmacy 05/09/23 JulianaAnkita, SWEATBAND SEPARATOR[employer] [address] [place] [address] Emergency Medicine Specialist Family [facility] 06/28/24 Natali Klein, SWEATBAND SEPARATOR[employer] [address] [place] [address] Formerly [facility] 01/04/25 Lead Refinery Supervisor Relationship Specialty Start Date End Date Jese Zheng DO [address] [place] [address] PCP - General Family Medicine 10/07/13 [place] [address] [place] [address] Pharmacist Pharmacy 05/09/23 Ankita Green, SWEATBAND SEPARATOR[employer] [address] [place] [address] Emergency Medicine Specialist Family Medicine 06/28/24 Natali Klein, SWEATBAND SEPARATOR[employer] [address] [place] [address] [facility] Family [facility] 01/04/25 Team Status: Active Member Role/Relationship Status [...] Attending Provider Active Start: February 22, 2025 Lead Refinery Supervisor Relationship Specialty Start Date End Date Jese Zheng DO [address] [place], [place] [address] PCP - General Family Medicine 10/07/13 [facility] [address], [place] [address] Pharmacist Pharmacy 05/09/23 Ankita Green, SWEATBAND SEPARATOR[employer] [address] [place], [place] [address] Emergency Medicine Specialist Family Medicine 06/28/24 Natali Klein, SWEATBAND SEPARATOR[employer] [address] [place], [place] [address] Emergency Medicine Specialist Family [facility] 01/04/25 Team Status: Inactive Member Role/Relationship Status [...] section and content) DATE CREATED AUTHOR 09/20/2022 [facility] DATE CREATED AUTHOR AUTHOR'S ORGANIZ ATION 05/29/2023 [facility] DATE CREATED AUTHOR AUTHOR'S ORGANIZ ATION 04/17/2024 [facility] DATE CREATED AUTHOR AUTHOR'S ORGANIZ ATION 02/27/2025 [facility] DATE CREATED AUTHOR AUTHOR'S ORGANIZ ATION 02/27/2025 [facility] Goals (unrecognized section and content) Goals may [...] BE BASED ON THE PRIMARY CLINICAL RECORDS. [employer] provides no warranty or guarantee of the accuracy or completeness of information in this document.
--- NOTE | 2025-02-28 08:31 | ED.RN ---
Dr. Herrera states she will see patient on the floor
[2025-02-28] MEDS: Aspirin E.C. 81 MG Tablet PO (11:06)
[2025-02-28] MEDS: Calcium Carb/Vitamin D 1 TABLET Tablet PO (11:07)
[2025-02-28] MEDS: Insulin Glargine-YFGN 100 UNIT/ML Pen 112 UNIT SC (11:16)
--- NOTE | 2025-02-28 12:18 | CON.PCM.CA_ITS ---
<Statement entered by Lion Goodman MD - 02/28/25 12:58> Pt seen & evaluated w/MATTHEW. I personally interviewed & exam the pt. 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 insulin use: with marine oil terminal superintendent use Diabetes mellitus complication status: with hyperglycemia Qualified Code(s): E11.65 - Type 2 diabetes mellitus with hyperglycemia (4) Elevated troponin: PLAN: Cardiac care plan; 59-year-old patient admitted through the ED complaining of symptoms of shortness of breath Evidently patient discharged 2 days ago from hospital where she has elevated troponin with non-ST elevation [place] Recent echocardiogram demonstrated global LV hypokinesia with ejection fraction 35% Stage II diastolic dysfunction with mild concentric left ventricular hypertrophy. This presentation patient has no symptoms of chest pain she has shortness of breath. And admitted to the hospital/progressive care unit for cardiac evaluation Patient was scheduled for cardiac catheterization her last admission but she could not perform due to difficulty of lying flat. Cardiac care plan recommendations; I reviewed and discussed all the current treatment patient currently on diuretic Lasix 40 mg twice daily. Will have a series of cardiac markers respiratory panel. Her symptoms mainly shortness of breath and cough. I reviewed the EKG which showed normal sinus with sinus tachycardia. Heart rate of around 114. Will continue on treatment for rest of her medical problem which include diabetes hypertension. And also bronchial asthma. And we will plan for cardiac catheterization during this admission. Will keep the patient n.p.o. Patient will be seen and evaluated by her primary assistant engineer Dr. Winston Goodman MD,[facility] maintenance scheduler HPI Consult Data Date of Consult: 02/28/25 HPI Narrative Reason for Consultation: Non-STEMI/pulm edema HPI Narrative: LISA GOTTI, is a 59 F who [facility] Medical History (Updated 02/28/25 @ 07:[address] Bacilio Mott, DO) Dyslipidemia Trigger ring finger of left hand Obesity Essential hypertension GERD (gastroesophageal reflux disease) Low HDL (under 40) Incisional hernia without obstruction or gangrene Unspecified hereditary and idiopathic peripheral neuropathy Type 2 diabetes mellitus with polyneuropathy Kidney stones Blood clot in vein Hx: UTI (urinary tract infection) Home Medications ?Medication ?Instructions ?Recorded ?Last Taken ?Type albuterol sulfate 90 mcg/actuation 2 puff inhalation Q 4H PRN PRN 04/08/14 04/08/14 02:30 History aerosol inhaler Wheezing calcium 315 mg (as 1 tab PO DAILY 04/08/1403/22 22:00 History citrate)-vitamin D3 6.25 mcg (250 2 ta b unit) tablet lisinopril 10 mg tablet 1 tab PO DAILY 04/07/1703/22 08:00 History 1 tab magnesium citrate 150 ml PO Q6H PRN PRN Consti pation 01/22/19 Unknown Rx #300 mL albuterol sulfate 2.5 mg/3 mL 2.5 mg inhalation Q4H W[place] N 05/11/19 Unknown History (0.083 %) solution for nebulization shortness of breat h or wheezing alcohol swabs (BD Alcohol Swabs) See Rx Instructions t opical 05/11/19 Unknown History .COMPLEX aspirin 81 mg tablet,delayed 81 mg PO DAILY 05/11/19 U nknown History release (Adult Low Dose Aspirin) atorvastatin 40 mg tablet 40 mg PO DAILY 05/11/19 Unkn own History blood sugar diagnostic (FreeStyle #10 ea 05/11/19 Unkn own History Lite Strips) blood-glucose meter (FreeStyle #1 ea 05/11/19 Unknown History Lite Meter kit) famotidine 20 mg tablet 20 mg PO BID 05/11/19 Unknow n History insulin degludec 100 unit/mL (3 112 unit subcut Q24H 1 Unknown History mL) subcutaneous pen (Tresiba FlexTouch U-100 insulin) lancets 30 gauge (Unilet Super #25 ea 05/11/19 Unknown History Thin Lancets) mupirocin 2 % topical ointment 1 applic topical BID Unknown History pen needle, diabetic 31 gauge x #30 ea 05/11/19 Unknow n History 10/04 (1st Tier Unifine Pentips) flash glucose sensor (FreeStyle #2 ea 02/26/20 Unknown Rx Michi 14 Day Sensor kit) insulin aspart U-100 100 unit/mL 20 unit (0.2 mL) subc ut TID #24 mL 04/05/20 Unknown Rx (3 mL) subcutaneous pen (Novolog FlexPen U-100 Insulin aspart) metformin 1,000 mg tablet 1,000 mg PO BID diabetes Unknown History cyanocobalamin (vitamin B-12) 2,000 mcg PO DAILY 02/22 Unknown History 1,000 mcg tablet,extended release dulaglutide 4.5 mg/0.5 mL 4.5 mg subcut QWEEK 02/22/25 Unknown History subcutaneous pen injector (Trulicity) empagliflozin 10 mg tablet 25 mg PO BREAKFAST 02/22/25 Unknown History (Jardiance) fluoxetine 20 mg capsule 20 mg PO DAILY 02/22/25 Unkn own History gabapentin 100 mg capsule 100 mg PO QHS 02/22/25 Unkno wn History carvedilol 3.125 mg tablet 3.125 mg PO BIDCM #60 tabs 02/25/25 Unknown Rx Allergy/AdvReac Type Severity Reaction Status Date / Time tramadol Allergy Hives Verified 02/28/25 04:51 albuterol sulfate (From AdvReac Vomiting Verified 02/28/25 04:51 Proventil HFA) ammonium lactate (From AdvReac Other Verified 02/28/25 04:51 Lac-Hydrin) phentermine HCl (From AdvReac Chest Verified 02/28/25 04:51 Adipex-P) tightness Family History Uncle Cancer Sister Diabetes Social History Smoking Status: Former smoker alcohol intake: never substance use type: does not use Physical Exam Cardio Cardio Narrative: Seen and evaluated at bedside along with the nursing staff Sitting out in the chair short of breath on oxygen. Review of roustabout showed sinus tachycardia Cardiac exam S1-S2 is regular No systolic or diastolic murmur Chest exam diminished air entry bilateral with bilateral inspiratory rales more prominent on the right lower chest. Examination lower extremity no lower extremity edema noted. Risk Stratification Risk Stratification Applicable: No Objective Data Vital Signs: Vital Signs Temp Pulse Resp BP Pulse Ox O2 Del Method O2 Flow Rate 98.1 F 94 22 H 113/77 97 Airvo 60 02/28/25 09:14 02/28/25 09:14 02/28/25 09:14 02/28/25 09:14 02/28/25 09:16 02/28/25 09:16 02/28/25 09:16 FiO2 79 02/28/25 09:16 Oxygen Flow Rate (L/min) 60 Oxygen Delivery Method Airvo Weight: 213 lb 10.047 oz Body Mass Index (BMI) 32.4 Lab / Micro Data 02/28/25 05:00 02/28/25 05:00 Labs: Laboratory Results - last 24 hr 02/28/25 05:00: WBC 7.9, RBC 4.27, Hgb 13.1, Hct 39.3, MCV 92.0, MCH 30.7, MCHC 33.3, RDW Std Deviation 41.7, RDW Coeff of Brett 12.4, Plt Count 303, MPV 9.7, Immature Gran % (Auto) 0.300, Neut % (Auto) 45.5 L, Lymph % (Auto) 39.0, [place] % (Auto) 12.2 H, Eos % (Auto) 2.2, Baso % (Auto) 0.8, Absolute Neuts (auto) 3.6, Absolute Lymphs (auto) 3.08, Nucleated RBC % 0, Sodium 140, Potassium 4.0, Chloride 105, Carbon Dioxide 23.3, Anion Gap 11, BUN 17, Creatinine 0.75, Estim Creat Clear Calc 97.63, Est GFR (MDRD) Non-Af 91, BUN/Creatinine Ratio 22.0 H, G lucose 202 H, Calcium 9.1, Magnesium 2.1, NT pro BNP II 2358 H 02/28/25 11:15: POC Glucose 253 H Micro: Microbiology 02/28/25 05:21 Mucosa - Nose SARS-CoV-2, Influenza & RSV (PCR) - Final ABG Data ABG results: ABG 02/28/25 05:39 Specimen Type ART Sample Site R Radial pH 7.28 L Bicarbonate Actual 23.1 Total CO2 25 Base Excess -4 L O2 Saturation 92 L O2 % 15.0 ABG pCO2 49.2 H ABG pO2 71 L John Test Positive O2 Delivery Device NRB Vent Mode Not entered Cardiology Labs/Tests 02/28/25 05:00: WBC 7.9, RBC 4.27, Hgb 13.1, Hct 39.3, MCV 92.0, MCH 30.7, MCHC 33.3, Plt Count 303, MPV 9.7, Immature Gran % (Auto) 0.300, Neut % (Auto) 45.5 L , Lymph % (Auto) 39.0, [place] % (Auto) 12.2 H, Eos % (Auto) 2.2, Baso % (Auto) 0.8, Absolute Neuts (auto) 3.6, Nucleated RBC % 0, Sodium 140, Potassium 4.0, Chloride 105, Carbon Dioxide 23.3, Anion Gap 11, BUN 17, Creatinine 0.75, Est GFR (MDRD) Non-Af 91, BUN/Creatinine Ratio 22.0 H, Glucose 202 H, Calcium 9.1, Magnesium 2.1 02/28/25 05:39: pH 7.28 L, Bicarbonate Actual 23.1, Base Excess -4 L, O2 Saturation 92 L, ABG pCO2 49.2 H, ABG pO2 71 L, John Test Positive Rhythm: EKG: ECHO: Stress Test: Cardiac Cath: PCI: CT Surgery: Holter monitor: EPS: PPM: CXR: Chest CT Scan: Radiography Diagnostic Testing: Radiology Impression Chest CTA 02/28/25 05:09 IMPRESSION: 1. No evidence of pulmonary embolus, with limited evaluation of the subsegmental pulmonary arteries in both upper lobes. 2. Worsening bilateral ground-glass opacities, likely changes of pulmonary edema and/or multifocal pneumonia. 3. Bilateral pleural effusions, increased since 02/23/2025. 4. Interlobular septal and peribronchovascular interstitial thickening, likely interstitial edema or infectious/inflammatory process. 5. Right middle lobe nodule, stable since 02/23/2025 and mildly larger since 04/06/2021. The slow growth since 04/06/2021 favors benignity. Reading Location: [id number]
[2025-02-28] MEDS: 0.9% Saline Lock 10 ML Syringe IV ×2 (17:24→21:04)
[2025-02-28 17:27] LABS: Troponin T High Sensitivity 327 ng/L (<=14)
--- NOTE | 2025-02-28 18:21 | PCMCONS.TICU ---
HPI Consult Data Date of Consult: 02/28/25 HPI Narrative HPI Narrative: LISA GOTTI, is a 59 F who presents [facility] Medical History (Updated 02/28/25 @ 07:[address] Bacilio Mott, DO) Dyslipidemia Trigger ring finger of left hand Obesity Essential hypertension GERD (gastroesophageal reflux disease) Low HDL (under 40) Incisional hernia without obstruction or gangrene Unspecified hereditary and idiopathic peripheral neuropathy Type 2 diabetes mellitus with polyneuropathy Kidney stones Blood clot in vein Hx: UTI (urinary tract infection) Home Medications ?Medication ?Instructions ?Recorded ?Last Taken ?Type albuterol sulfate 90 mcg/actuation 2 puff inhalation Q4H PRN PRN 04/08/14 04/08/14 02:30 History aerosol inhaler Wheezing calcium 315 mg (as 1 tab PO DAILY 04/08/14 04/05/17 22:00 History citrate)-vitamin D3 6.25 mcg (250 2 tab unit) tablet lisinopril 10 mg tablet 1 tab PO DAILY 04/07/17 04/05/17 08:00 History 1 tab magnesium citrate 150 ml PO Q6H PRN PRN Constipation 01/22/19 Unknown Rx #300 mL albuterol sulfate 2.5 mg/3 mL 2.5 mg inhalation Q4H PRN 05/11/19 Unknown History (0.083 %) solution for nebulization shortness of breath or wheezing alcohol swabs (BD Alcohol Swabs) See Rx Instructions topical 05/11/19 Unknown History .COMPLEX aspirin 81 mg tablet,delayed 81 mg PO DAILY 05/11/19 Unknown History release (Adult Low Dose Aspirin) atorvastatin 40 mg tablet 40 mg PO DAILY 05/11/19 Unknown History blood sugar diagnostic (FreeStyle #10 ea 05/11/19 Unknown History Lite Strips) blood-glucose meter (FreeStyle #1 ea 05/11/19 Unknown History Lite Meter kit) famotidine 20 mg tablet 20 mg PO BID 05/11/19 Unknown History insulin degludec 100 unit/mL (3 112 unit subcut Q24H 05/11/19 Unknown History mL) subcutaneous pen (Tresiba FlexTouch U-100 insulin) lancets 30 gauge (Unilet Super #25 ea 05/11/19 Unknown History Thin Lancets) mupirocin 2 % topical ointment 1 applic topical BID 05/11/19 Unknown History pen needle, diabetic 31 gauge x #30 ea 05/11/19 Unknown History 3/16 (1st Tier Unifine Pentips) flash glucose sensor (FreeStyle #2 ea 02/26/20 Unknown Rx Michi 14 Day Sensor kit) insulin aspart U-100 100 unit/mL 20 unit (0.2 mL) subcut TID #24 mL 04/05/20 Unknown Rx (3 mL) subcutaneous pen (Novolog FlexPen U-100 Insulin aspart) metformin 1,000 mg tablet 1,000 mg PO BID diabetes 02/06/21 Unknown History cyanocobalamin (vitamin B-12) 2,000 mcg PO DAILY 02/22/25 Unknown History 1,000 mcg tablet,extended release dulaglutide 4.5 mg/0.5 mL 4.5 mg subcut QWEEK 02/22/25 Unknown History subcutaneous pen injector (Trulicity) empagliflozin 10 mg tablet 25 mg PO BREAKFAST 02/22/25 Unknown History (Jardiance) fluoxetine 20 mg capsule 20 mg PO DAILY 02/22/25 Unknown History gabapentin 100 mg capsule 100 mg PO QHS 02/22/25 Unknown History carvedilol 3.125 mg tablet 3.125 mg PO BIDCM #60 tabs 02/25/25 Unknown Rx Allergy/AdvReac Type Severity Reaction Status Date / Time tramadol Allergy Hives Verified 02/28/25 04:51 albuterol sulfate (From AdvReac Vomiting Verified 02/28/25 04:51 Proventil HFA) ammonium lactate (From AdvReac Other Verified 02/28/25 04:51 Lac-Hydrin) phentermine HCl (From AdvReac Chest Verified 02/28/25 04:51 Adipex-P) tightness Family History Uncle Cancer Sister Diabetes Social History Smoking Status: Former smoker alcohol intake: never substance use type: does not use Objective Data Objective Data Vital Signs: Vital Signs Last response Temperature 36.8 C 02/28/25 17:19 Temperature Source Oral 02/28/25 17:19 Pulse Rate 90 02/28/25 17:19 Respiratory Rate 18 02/28/25 17:19 Respiratory Effort Non-Labored, Short of Breath 02/28/25 15:48 Respiratory Depth Shallow 02/28/25 15:48 Respiratory Pattern Tachypnea 02/28/25 15:48 Blood Pressure 144/95 H 02/28/25 17:19 Blood Pressure Mean 111 02/28/25 17:19 Pulse Ox 93 02/28/25 17:20 Oxygen Delivery Method Nasal Cannula 02/28/25 17:20 Oxygen Flow Rate (L/min) 6 02/28/25 17:20 Fraction of Inspired Oxygen (FIO2) 79 02/28/25 15:48 I&O: I&O Last 24 Hours 02/27/25 02/28/25 02/28/25 23:59 11:59 23:59 Intake Total 960 / 960 Balance 960 / 960 I&O: Total Stay 02/28/25 04:50 thru 02/28/25 17:58 Intake Total 960 Balance 960 Current Meds Ordered / Administered: Current meds ordered / Administered Generic Name Dose Route Start Last Admin Trade Name Freq PRN Reason Stop Dose Admin Albuterol/Ipratropium 3 ml 02/28/25 16:15 Ipratropium/Albuterol Sulfate 3 Ml Ampul.Neb INHALATION Q4HWA.RT CHING Aspirin 81 mg 02/28/25 09:09 02/28/25 11:06 Aspirin E.C. 81 Mg Tablet PO 81 mg BREAKFAST CHING Administration Atorvastatin Calcium 40 mg 02/28/25 22:00 Atorvastatin Calcium 40 Mg Tablet PO QHS CHING Calcium/Vitamin D 1 tablet 02/28/25 10:00 02/28/25 11:07 Calcium Carb/Vitamin D 1 Tablet Tablet PO 1 tablet DAILYCM CHING Administration Carvedilol 3.125 mg 02/28/25 17:00 02/28/25 16:50 Carvedilol 3.125 Mg Tablet PO 3.125 mg BIDCM CHING Administration Empagliflozin 25 mg 02/28/25 09:09 02/28/25 11:06 Empagliflozin 25 Mg Tablet PO 25 mg BREAKFAST CHING Administration Enoxaparin Sodium 40 mg 02/28/25 10:00 02/28/25 11:06 Enoxaparin 40 Mg/0.4 Ml Syringe SC 40 mg DAILY CHING Administration Famotidine 20 mg 02/28/25 10:00 02/28/25 11:07 Famotidine 20 Mg Tablet PO 20 mg BID CHING Administration Fluoxetine HCl 20 mg 02/28/25 10:00 02/28/25 11:07 Fluoxetine 20 Mg Capsule PO 20 mg DAILY CHING Administration Furosemide 40 mg 02/28/25 18:00 02/28/25 17:24 Furosemide 40 Mg/4 Ml Vial IV 40 mg BIDLX CHING Administration Protocol Gabapentin 100 mg 02/28/25 22:00 Gabapentin 100 Mg Capsule PO QHS CHING Glucagon 1 mg 02/28/25 09:25 Glucagon 1 Mg/Ml Syringe IM X1 PRN HYPOGLYCEMIA Protocol Guaifenesin 20 ml 02/28/25 09:25 Guaifenesin 10 Ml Udc (200mg/10ml) PO Q4H PRN PRN COUGH Sodium Chloride 250 mls @ 15 mls/hr 02/28/25 09:23 IV .[id number] PRN Additional IVPB Infusion Sodium Chloride 250 mls @ 15 mls/hr 02/28/25 09:23 IV .[id number] PRN Saline Flush Dextrose 250 mls @ 0 mls/hr 02/28/25 09:25 Dextrose 10%-Water IV .Q0M PRN HYPOGLYCEMIA Protocol As Directed Insulin Glargine 112 unit 02/28/25 10:00 02/28/25 11:16 Insulin Glargine-Yfgn 100 Unit/Ml Pen SC 112 unit Q24H CHING Administration Insulin Human Lispro 20 unit 02/28/25 12:00 02/28/25 16:49 Insulin Lispro 100 Unit/Ml Insuln.Pen SC 20 u 0800,1200,1700 CHING Administration Insulin Human Lispro 0 unit 02/28/25 11:00 02/28/25 16:49 Insulin Lispro 100 Unit/Ml Insuln.Pen SC 2 u ACHS [facility] Administration Protocol Lisinopril 10 mg 02/28/25 10:00 02/28/25 11:07 Lisinopril 10 Mg Tablet PO 10 mg DAILY [facility] Administration Protocol Magnesium Citrate 150 ml 02/28/25 09:09 Magnesium Citrate 300 Ml PO Q6H PRN PRN Constipation Nitroglycerin 0.4 mg 02/28/25 09:25 Nitroglycerin (Inpatient Use) 0.4 Mg Tab.Subl SL Q5M PRN CARDIAC/CHEST PAIN Ondansetron HCl 4 mg 02/28/25 09:25 Ondansetron 4 Mg/2 Ml Vial IV Q8H PRN PRN NAUSEA/VOMITING Sodium Chloride 10 - 40 ml 02/28/25 09:23 02/28/25 17:24 0.9% Saline Lock 10 Ml Syringe IV 10 ml UD PRN Administration SALINE FLUSH Lab / Micro Data 02/28/25 18:35 02/28/25 05:00 Labs: Laboratory Results - last 24 hr 02/28/25 05:00: WBC 7.9, RBC 4.27, Hgb 13.1, Hct 39.3, MCV 92.0, MCH 30.7, MCHC 33.3, RDW Std Deviation 41.7, RDW Coeff of Brett 12.4, Plt Count 303, MPV 9.7, Immature Gran % (Auto) 0.300, Neut % (Auto) 45.5 L, Lymph % (Auto) 39.0, [place] % (Auto) 12.2 H, Eos % (Auto) 2.2, Baso % (Auto) 0.8, Absolute Neuts (auto) 3.6, Absolute Lymphs (auto) 3.08, Nucleated RBC % 0, Sodium 140, Potassium 4.0, Chloride 105, Carbon Dioxide 23.3, Anion Gap 11, BUN 17, Creatinine 0.75, Estim Creat Clear Calc 97.63, Est GFR (MDRD) Non-Af 91, BUN/Creatinine Ratio 22.0 H, Glucose 202 H, Calcium 9.1, Magnesium 2.1, NT pro BNP II 2358 H 02/28/25 11:15: POC Glucose 253 H 02/28/25 16:20: Troponin T High Sens 327 H* D 02/28/25 16:48: POC Glucose 199 H Micro: Microbiology 02/28/25 11:55 Urine, Clean Catch Legionella Antigen - Final 02/28/25 11:55 Urine, Clean Catch Streptococcus pneumoniae Antigen (M - Final 02/28/25 05:21 Mucosa - Nose SARS-CoV-2, Influenza & RSV (PCR) - Final ABG Data ABG results: ABG 02/28/25 05:39 Specimen Type ART Sample Site R Radial pH 7.28 L Bicarbonate Actual 23.1 Total CO2 25 Base Excess -4 L O2 Saturation 92 L O2 % 15.0 ABG pCO2 49.2 H ABG pO2 71 L John Test Positive O2 Delivery Device NRB Vent Mode Not entered Imaging Radiology Impression Chest CTA 02/28/25 05:09 IMPRESSION: 1. No evidence of pulmonary embolus, with limited evaluation of the subsegmental pulmonary arteries in both upper lobes. 2. Worsening bilateral ground-glass opacities, likely changes of pulmonary edema and/or multifocal pneumonia. 3. Bilateral pleural effusions, increased since 02/23/2025. 4. Interlobular septal and peribronchovascular interstitial thickening, likely interstitial edema or infectious/inflammatory process. 5. Right middle lobe nodule, stable since 02/23/2025 and mildly larger since 04/06/2021. The slow growth since 04/06/2021 favors benignity. Reading Location: [id number] Assessment and Plan . Assessment and plan: HPI 59 yo female former smoker w/ CHF and CMP admitted w/ dyspnea and hypoxemia in the setting of decompensated CHF. She required high-flow O2 in the ED. CTA (-) for VTED. She has bilateral effusions and GGO c/w CHF. NT-p-BNP markedly elevated. She has received diuretics and feels better. 6-7 LPM O2 at rest currently - she appears comfortable. Recent TTE reveals reduced LVSF, LVH, modest MR. Plans noted for C. EXAM GEN NAD VS as above HEENT O2 N/C NECK JVD COR RRR CHEST bibasilar crackles ABD soft EXT minimal edema SKIN w/d LIANNA NF ASSESSMENT/PLAN 1. Acute respiratory failure requiring high-flow supplemental O2 2. Decompensated CHF w/ reduced LVSF 3. Recent ACS 4. Former tobacco use -supplemental O2 as needed -loop diuretics - defer to cardiology -anti-PLT -sq LMWH for VTE ppx -LHC as directed by cardiology The entirety of this encounter was done via Telemedicine
[2025-02-28 18:46] LABS: Hematocrit 39.2 % (37-47); Hemoglobin 13.2 g/dL (12.0-15.0); Immature Granulocytes Count 0.020 X10^3/uL (0.0-0.0); Mean Corp Hgb Conc 33.7 g/dL (32-36); Mean Corpuscular Volume 91.8 fL (81-99); Mean Platelet Vol. 9.8 fl (6.2-12.0); NRBC Flagged by Analyzer 0 % (0-5); Platelet Count 329 K/mm3 (150-450); RBC Distribution Width CV 12.4 % (11.6-14.6); RBC Distribution Width SD 41.1 fl (35.1-43.9); Red Blood Count 4.27 M/mm3 (4.2-5.4); White Blood Count 6.1 K/mm3 (4.4-11.0)
[2025-02-28 18:59] LABS: Prothrombin Time (Protime)PT. 12.5 SECONDS (11.7-14.9)
[2025-02-28 19:00] LABS: Partial Thromboplast Time 31.0 Seconds (24.1-36.2)
[2025-02-28 19:09] LABS: Troponin T High Sens 2 HR 372 ng/L (<=14)
[2025-02-28] MEDS: HEPARIN/D5w 25,000 UNITS 25,000 UNITS/250 ML IV.SOLN. 14.5 UNITS CONT INF (19:32)
[2025-02-28 21:16] LABS: Troponin T High Sens 4 HR 421 ng/L (<=14)
[2025-03-01] VITALS (20 sets, daily range): BP systolic 111–141; BP diastolic 70–93; PULSE 82–99; RESP 16–18; TEMP 36.6–36.8; O2SAT 88–100; BMI 32.2
[2025-03-01 02:19] LABS: Partial Thromboplast Time 118.8 Seconds (24.1-36.2)
[2025-03-01 04:09] LABS: Hematocrit 36.6 % (37-47); Hemoglobin 12.3 g/dL (12.0-15.0); Immature Granulocytes Count 0.040 X10^3/uL (0.0-0.0); Mean Corp Hgb Conc 33.6 g/dL (32-36); Mean Corpuscular Volume 91.7 fL (81-99); Mean Platelet Vol. 10.0 fl (6.2-12.0); NRBC Flagged by Analyzer 0.2 % (0-5); Platelet Count 303 K/mm3 (150-450); RBC Distribution Width CV 12.4 % (11.6-14.6); RBC Distribution Width SD 41.3 fl (35.1-43.9); Red Blood Count 3.99 M/mm3 (4.2-5.4); White Blood Count 11.5 K/mm3 (4.4-11.0)
[2025-03-01 04:42] LABS: Anion Gap 12 (5-15); BUN 20 mg/dL (4-19); BUN/Creat Ratio 26.1 RATIO (10-20); Calcium,Total 9.5 mg/dL (7.6-11.0); Carbon Dioxide 21.7 mmol/L (21.0-32.0); Chloride 105 mmol/L (98-108); Estimated Creatinine Clearance 92.97 ml/min (50-250); Glucose 185 mg/dL (70-99); Potassium 4.3 mmol/L (3.3-5.1)
--- NOTE | 2025-03-01 05:35 | EKG12_ITS ---
Test Reason : AM EKG Blood Pressure : */* mmHG Vent. Rate : 86 BPM Atrial Rate : 86 BPM P-R Int : 156 ms QRS Dur : 92 ms QT Int : 372 ms P-R-T Axes : 47 0 133 degrees QTcB Int : 445 ms Normal sinus rhythm Possible Left atrial enlargement Left ventricular hypertrophy ( R in aVL , [place] product ) Inferior infarct , age undetermined T wave abnormality, consider lateral ischemia Abnormal ECG When compared with ECG of 28-Feb-2025 05:48, MANUAL COMPARISON REQUIRED DATA IS UNCONFIRMED Confirmed by DIANELYS DELACRUZ, FAITH ([id number]), news copy editor REGGIE SHEARER ([id number]) on 03/01/2025 1:01:08 PM Referred By: Confirmed By: FAITH IVORY MD
[2025-03-01] MEDS: Aspirin E.C. 81 MG Tablet PO (06:14)
[2025-03-01] MEDS: 0.9% Saline Lock 10 ML Syringe IV ×3 (07:22→22:19)
--- NOTE | 2025-03-01 08:37 | NURSING ---
Report called to ABRAHAM [employer]ion in [employer].
--- NOTE | 2025-03-01 09:48 | CASEMGMT ---
Tertiary Insurance review for hospitals In-network with [facility] insurance if transfer is recommended is as follows: [facility], [facility], and [facility]. Radha Bird, Discharge Planning Asst.
[2025-03-01] MEDS: Calcium Carb/Vitamin D 1 TABLET Tablet PO (10:50)
[2025-03-01] MEDS: Insulin Glargine-YFGN 100 UNIT/ML Pen 112 UNIT SC (12:23)
--- NOTE | 2025-03-01 14:51 | CASEMGMT ---
Social Work Pt completed LW/POA with WILLIE, she put her son Young Isaac as POA. SW updated the demographics. SW gave pt originals and copies, and copies were placed on the chart and to go w/pt as she may get transferred. CARLOTA Colmenares
--- NOTE | 2025-03-01 15:04 | PN_ITS ---
Subjective Subjective Patient seen and examined this morning with her nurse by her bedside. She had no active complaints. She had cardiac cath today which showed severe triple- vessel disease with plans to transfer her to [facility] for evaluation for CABG by CT surgery. She has been accepted at [facility] Pending bed availability. She has remained hemodynamically stable. Objective Data Objective Data Vital Signs: Vital Signs Temp Pulse Resp BP Pulse Ox O2 Del Method O2 Flow Rate 97.9 F 83 16 119/70 95 Nasal Cannula 2 03/01/25 08:03/01/25 15:02 03/01/25 15:02 03/01/25 13:20 03/01/25 13:20 03/01/25 13:20 03/01/25 13:20 FiO2 79 02/28/25 15:48 Oxygen Flow Rate (L/min) 2 Oxygen Delivery Method Nasal Cannula Weight: 211 lb 13.828 oz Body Mass Index (BMI) 32.2 Intake & Output: Intake and Output for Last 24 Hours 02/27/25 02/28/25 03/01/25 23:59 23:59 23:59 Intake Total 960 / 1320 942.53 / 942.53 Output Total 900 / 900 Balance 960 / 1320 42.53 / 42.53 Lab / Micro Data 03/01/25 03:39 03/01/25 03:39 Labs: Laboratory Results - last 24 hr 02/28/25 16:20: Troponin T High Sens 327 H* D 02/28/25 16:48: POC Glucose 199 H 02/28/25 18:05: Troponin T Hi Sens 2 Hr 372 H* 02/28/25 18:35: WBC 6.1, RBC 4.27, Hgb 13.2, Hct 39.2, MCV 91.8, MCH 30.9, MCHC 33.7, RDW Std Deviation 41.1, RDW Coeff of Brett 12.4, Plt Count 329, MPV 9.8, Immature Gran % (Auto) 0.300, Neut % (Auto) 79.8 H, Lymph % (Auto) 13.5 L, [place] % (Auto) 6.1, Eos % (Auto) 0.0, Baso % (Auto) 0.3, Absolute Neuts (auto) 4.8, A bsolute Lymphs (auto) 0.82 L, Nucleated RBC % 0, PT 12.5, INR 0.9, APTT 31.0 02/28/25 20:08: Troponin T Hi Sens 4Hr 421 H* 02/28/25 21:04: POC Glucose 301 H 03/01/25 01:38: APTT 118.8 H* 03/01/25 03:39: WBC 11.5 H, RBC 3.99 L, Hgb 12.3, Hct 36.6 L, MCV 91.7, MCH 30.8, MCHC 33.6, RDW Std Deviation 41.3, RDW Coeff of Brett 12.4, Plt Count 303, MPV 10.0, Immature Gran % (Auto) 0.300, Neut % (Auto) 66.0, Lymph % (Auto) 20.8, [place] % (Auto) 12.5 H, Eos % (Auto) 0.1, Baso % (Auto) 0.3, Absolute Neuts (auto) 7.6, Absolute Lymphs (auto) 2.38, Nucleated RBC % 0.2, Sodium 139, Potassium 4.3, Chloride 105, Carbon Dioxide 21.7, Anion Gap 12, BUN 20 H, Creatinine 0.78, Estim Creat Clear Calc 92.97, Est GFR (MDRD) Non-Af 87, BUN/Creatinine Ratio 26.1 H, Glucose 185 H, Calcium 9.5 03/01/25 06:12: POC Glucose 169 H 03/01/25 12:19: POC Glucose 144 H Micro: Microbiology 02/28/25 11:55 Urine, Clean Catch Legionella Antigen - Final 02/28/25 11:55 Urine, Clean Catch Streptococcus pneumoniae Antigen (M - Final 02/28/25 05:21 Mucosa - Nose SARS-CoV-2, Influenza & RSV (PCR) - Final Physical Exam Const alert, oriented x3 and no apparent distress General Appearance: cooperative HEENT normocephalic, head/scalp atraumatic, hearing grossly normal bilaterally and moist oral mucous membranes Eyes PERRL, EOMs intact bilaterally and conjunctivae normal Neck supple and no JVD Resp Resp Narrative: moderately diminished breath sounds bilaterally, no wheezes or crackles. On room air. Has been weaned off of Airvo. Cardio regular rhythm, S1 normal heart sound, S2 normal heart sound and no murmurs GI normal to inspection, nondistended, normoactive bowel sounds, soft to palpation and non-tender Extremity normal to inspection, full ROM, normal capillary refill and no clubbing, cyanosis or edema General Extremity: no tenderness to palpation of joints or extremities Skin General Skin Exam: no breakdown Neuro oriented x3 and moves all extremities Sensorium / Orientation: awake and alert Motor Exam: strength 5/5 throughout Psych thought process normal, cooperative and affect normal Appearance: appropriate Assessment & Plan Assessment/Plan (1) Hypoxia: PLAN: Plan #Acute hypoxic respiratory failure due to acute heart failure with reduced ejection fraction * Admit to PCU. Patient was very short of breath on admission and required Airvo. She is currently on Airvo 60 L. * She was admitted with a similar complaints just about a week ago. At that time she was found to have non-STEMI. Plan was for her to have cardiac cath. However she could not lay flat after she was taken to the [facility] so cardiac cath was aborted * Now presents with the above mentioned complaints. Will diurese with IV Lasix 40 mg twice daily. * Cardiology on board. Had cardiac cath today which showed severe triple-vessel disease. Recommendation is therefore for transfer to [facility] For evaluation for CT surgery. * Monitor intake and output. Fluid restriction to 1500 cc daily. Also on Jardiance. * Breathing treatments bronchodilators. Titrate oxygen to maintain saturation above 90%. * 2D echo from 02/23/2025 during her previous admission showed EF of 35% with stage II diastolic dysfunction and moderate global hypokinesis of the left ventricle as well as mild concentric left ventricular hypertrophy. * #History of CAD: As stated was admitted with non-STEMI last time. On aspirin and carvedilol as well as high intensity statin. Also on lisinopril #Type 2 diabetes mellitus, hold metformin. On Lantus 112 units daily. Also on Jardiance. Insulin sliding scale. Accu-Cheks ACHS. Hold Trulicity also. #History of back pain: CT during previous admission showed lumbar spine scoliosis and degeneration mainly of L5-S1. PT OT on board. Fall precautions. #Benign essential hypertension: On carvedilol and lisinopril # Hyperlipidemia: On statin DVT prophylaxis: Lovenox CODE STATUS: Full code Disposition: For transfer to [facility] pending bed availability Charges/Coding Visit Charges Inpatient E&M: 25977 Subs Hosp L2
--- NOTE | 2025-03-01 16:22 | CHAPLAIN ---
Type of Pastoral Visit _x__ Initial Visit ___ Follow-up Visit ___ On-call Visit ___ General Patient Visit ___ Spiritual Assessment ___ Family Conference ___ Bereavement ___ Rapid Response ___ Code Blue ___ Other (describe below) Pastoral Care Referral From _x__ Patient ___ Family ___ Nurse ___ Physician ___ Rear Load Truck Driver ___ Handkerchief Cutter ___ Other (describe below) Sacrament/Intervention _x__ Active listening ___ Anointing ___ Sabianism ___ Bereavement ___ Communion ___ Caron exploration ___ _x__ Life review _x__ Prayer ___ Reconciliation ___ Sacrament of Sick _x__ Supportive presence ___ Wedding ___ Other (describe below) Pastoral Comments patient admits to some anxiety over waiting on test results and finding out what she has going on; pt has two young children at home and is worried about them but older children have taken them in for the time being; pt states no specific needs but would like prayer for her health and the results
--- NOTE | 2025-03-01 18:13 | CL.D_ITS ---
Patient Name: LISA GOTTI Study Date: 03/01/2025 Performing: Elver Montero MD Ht: 68 inches 172.72 cm : 1965 Wt: 212.1 lbs 96.1 kg Age: 59 Gender: female BSA: 2.09 PROCEDURE(S) PERFORMED [id number])[facility] CLINICAL PROFILE AND INDICATIONS Indications: Suspected CAD Heart Failure: NYHA Class: 2, Newly Diagnosed: Yes, Heart Failure Type: Systolic Stress/Imaging Stress/Image Study Performed: No CONCLUSIONS Severe triple-vessel disease with reduced LV function. RECOMMENDATIONS Surgery consult for coronary revascularization DESCRIPTION OF PROCEDURE The patient arrived to the procedure lab. The risks and benefits of the procedure as well as a full description of our services here and current unavailability of surgical backup were fully explained to the patient and/or their significant other prior to the catheterization. The Timeout was completed, verifying the correct patient and procedure. The patient's procedural site was prepped and draped in the usual fashion. Local anesthetic was given subcutaneously to right radial region with Lidocaine 2%. Using a modified Seldinger technique, arterial access was obtained via the right radial artery, a 6Fr sheath was inserted. Right Coronary Artery selective angiography was then performed in multiple views using a 5 Fr. 4.0 [place] catheter. Left Coronary Artery selective angiography was performed in multiple views using a 5 Fr. 4.0 [place] catheter. CORONARY ANGIOGRAPHY DOMINANCE: Right Dominant LEFT HEART ASSESSMENT Left Ventricular Ejection Fraction: by Echo 35 % Global Hypokinesis - Moderate Depressed Left Ventricular systolic function LEFT MAIN: Moderate calcification, Distal 40% LEFT ANTERIOR DESCENDING ARTERY: Proximal calcification with first diagonal vessel with moderate bifurcating disease. Proximal LAD 80% followed by mid LAD 80%, second diagonal vessel which is subtotally occluded. CIRCUMFLEX ARTERY: Nondominant vessel with 1st and 2nd obtuse marginal branch with severe diffuse disease RIGHT CORONARY ARTERY: MID RCA: is occluded COLLATERAL FLOW: Collateral flow from Left to Right COMPLICATIONS No Complications PROCEDURE MEDICATIONS Versed 2 mg IV Oxygen: 2 L/min via nasal cannula Oxygen: 4 L/min via nasal cannula Benadryl 50 mg IV @ 03/01/2025 08:53:41 Heparin given IA 03/01/2025 09:17:00 Verapamil 2.5mg, Ntg 100mcgs, 3000 units of Heparin given IA 03/01/2025 09:17:00 SUMMARY OF HEMODYNAMIC DATA Time AIR REST ECG 08:46:09 AO 152/89 (116) SA 09:18:15 Signed By Elver Montero MD On 03/01/2025 18:13:15 Elver Montero MD
[2025-03-02] VITALS (7 sets, daily range): BP systolic 113–135; BP diastolic 69–80; PULSE 83–92; RESP 17–20; TEMP 36.7–37; O2SAT 94–98; BMI 32.3
[2025-03-02 07:50] LABS: Anion Gap 12 (5-15); BUN 13 mg/dL (4-19); BUN/Creat Ratio 23.3 RATIO (10-20); Calcium,Total 9.0 mg/dL (7.6-11.0); Carbon Dioxide 22.5 mmol/L (21.0-32.0); Chloride 106 mmol/L (98-108); Estimated Creatinine Clearance 125.29 ml/min (50-250); Glucose 64 mg/dL (70-99); Potassium 3.5 mmol/L (3.3-5.1)
[2025-03-02] MEDS: Calcium Carb/Vitamin D 1 TABLET Tablet PO (08:33)
[2025-03-02] MEDS: Aspirin E.C. 81 MG Tablet PO (08:33)
[2025-03-02 09:23] LABS: Hematocrit 37.4 % (37-47); Hemoglobin 12.5 g/dL (12.0-15.0); Immature Granulocytes Count 0.030 X10^3/uL (0.0-0.0); Mean Corp Hgb Conc 33.4 g/dL (32-36); Mean Corpuscular Volume 92.1 fL (81-99); Mean Platelet Vol. 10.0 fl (6.2-12.0); NRBC Flagged by Analyzer 0 % (0-5); Platelet Count 323 K/mm3 (150-450); RBC Distribution Width CV 12.6 % (11.6-14.6); RBC Distribution Width SD 42.1 fl (35.1-43.9); Red Blood Count 4.06 M/mm3 (4.2-5.4); White Blood Count 7.1 K/mm3 (4.4-11.0)
--- NOTE | 2025-03-02 14:43 | PCM.PROGNOTE ---
Subjective Subjective Patient seen and examined with his nurse by his bedside. She had no complaints. She is on room air. She is awaiting transfer to [facility] [place]. Objective Data Objective Data Vital Signs: Vital Signs Temp Pulse Resp BP Pulse Ox O2 Del Method O2 Flow Rate 98.0 F 86 20 H 113/69 98 Room Air 2 03/02/25 08:31 03/02/25 08:31 03/02/25 08:31 03/02/25 08:31 03/02/25 08:31 03/02/25 08:31 03/01/25 13:20 FiO2 79 02/28/25 15:48 Oxygen Flow Rate (L/min) 2 Oxygen Delivery Method Room Air Weight: 212 lb 11.937 oz Body Mass Index (BMI) 32.3 Intake & Output: Intake and Output for Last 24 Hours 02/28/25 03/01/25 03/02/25 23:59 23:59 23:59 Intake Total 960 / 1320 942.53 / 942.53 360 / 360 Output Total 900 / 900 Balance 960 / 1320 42.53 / 42.53 360 / 360 Lab / Micro Data 03/02/25 08:20 03/02/25 06:48 Labs: Laboratory Results - last 24 hr 03/01/25 17:21: POC Glucose 171 H 03/01/25 20:14: POC Glucose 67 L 03/01/25 22:06: POC Glucose 127 H 03/02/25 06:48: Sodium 140, Potassium 3.5, Chloride 106, Carbon Dioxide 22.5, Anion Gap 12, BUN 13, Creatinine 0.58 L, Estim Creat Clear Calc 125.29, Est GFR (MDRD) Non-Af 104, BUN/Creatinine Ratio 23.3 H, Glucose 64 L, Calcium 9.0 03/02/25 07:44: POC Glucose 88 03/02/25 08:20: WBC 7.1, RBC 4.06 L, Hgb 12.5, Hct 37.4, MCV 92.1, MCH 30.8, MCHC 33.4, RDW Std Deviation 42.1, RDW Coeff of Brett 12.6, Plt Count 323, MPV 10.0, Immature Gran % (Auto) 0.400, Neut % (Auto) 55.2, Lymph % (Auto) 32.4, [place] % (Auto) 9.1, Eos % (Auto) 2.1, Baso % (Auto) 0.8, Absolute Neuts (auto) 3.9, Absolute Lymphs (auto) 2.31, Nucleated RBC % 0 03/02/25 11:48: POC Glucose 213 H Micro: Microbiology 02/28/25 07:35 Blood Culture (Wb) - Anticubital Right Blood Culture - Preliminary No growth in 48 hours. 02/28/25 07:39 Blood Culture (Wb) - Left Hand Blood Culture - Preliminary No growth in 48 hours. 03/01/25 01:20 Sputum, Expectorated/Coughed Gram Stain - Final 02/28/25 11:55 Urine, Clean Catch Legionella Antigen - Final 02/28/25 11:55 Urine, Clean Catch Streptococcus pneumoniae Antigen (M - Final 02/28/25 05:21 Mucosa - Nose SARS-CoV-2, Influenza & RSV (PCR) - Final Physical Exam Const alert, oriented x3 and no apparent distress General Appearance: cooperative HEENT normocephalic, head/scalp atraumatic, hearing grossly normal bilaterally and moist oral mucous membranes Eyes PERRL, EOMs intact bilaterally and conjunctivae normal Neck supple and no JVD Lymph Lymphatic: no lymphedema noted Resp Resp Narrative: moderately diminished breath sounds bilaterally, no wheezes or crackles. On room air. Cardio regular rate, regular rhythm, S1 normal heart sound, S2 normal heart sound and no murmurs GI normal to inspection, nondistended, normoactive bowel sounds, soft to palpation and non-tender Extremity normal to inspection, full ROM, normal capillary refill and no clubbing, cyanosis or edema General Extremity: no tenderness to palpation of joints or extremities Skin General Skin Exam: no breakdown Neuro oriented x3, CN's II-XII intact bilaterally and moves all extremities Sensorium / Orientation: awake and alert Motor Exam: strength 5/5 throughout Psych thought process normal, cooperative and affect normal Appearance: appropriate Assessment & Plan Assessment/Plan (1) Hypoxia: PLAN: Plan #Acute hypoxic respiratory failure due to acute heart failure with reduced ejection fraction Patient was very short of breath on admission and required Airvo. She is currently on Airvo 60 L. She was admitted with a similar complaints just about a week ago. At that time she was found to have non-STEMI. Plan was for her to have cardiac cath. However she could not lay flat after she was taken to the [facility] so cardiac cath was aborted Now presents with the above mentioned complaints. on lasix IV Cardiology on board. Had cardiac cath today which showed severe triple-vessel disease. Recommendation is therefore for transfer to [facility] [place] For evaluation for CT surgery. Monitor intake and output. Fluid restriction to 1500 cc daily. Also on Jardiance. Breathing treatments bronchodilators. Titrate oxygen to maintain saturation above 90%. 2D echo from 02/23/2025 during her previous admission showed EF of 35% with stage II diastolic dysfunction and moderate global hypokinesis of the left ventricle as well as mild concentric left ventricular hypertrophy. #History of CAD: As stated was admitted with non-STEMI last time. On aspirin and carvedilol as well as high intensity statin. Also on lisinopril #Type 2 diabetes mellitus, hold metformin. On Lantus 112 units daily. Also on Jardiance. Insulin sliding scale. Accu-Cheks ACHS. Hold Trulicity also. #History of back pain: CT during previous admission showed lumbar spine scoliosis and degeneration mainly of L5-S1. PT OT on board. Fall precautions. #Benign essential hypertension: On carvedilol and lisinopril # Hyperlipidemia: On statin DVT prophylaxis: Lovenox CODE STATUS: Full code Disposition: Awaiting transfer to [facility] pending bed availability Charges/Coding Visit Charges Inpatient E&M: 59210 Subs Hosp L2
[2025-03-02] MEDS: 0.9% Saline Lock 10 ML Syringe IV ×2 (17:28→21:58)
[2025-03-03] VITALS (8 sets, daily range): BP systolic 109–149; BP diastolic 68–78; PULSE 76–94; RESP 16–20; TEMP 36.7–36.9; O2SAT 95–98; BMI 32.2
[2025-03-03 06:05] LABS: Hematocrit 39.0 % (37-47); Hemoglobin 12.9 g/dL (12.0-15.0); Immature Granulocytes Count 0.030 X10^3/uL (0.0-0.0); Mean Corp Hgb Conc 33.1 g/dL (32-36); Mean Corpuscular Volume 92.6 fL (81-99); Mean Platelet Vol. 10.0 fl (6.2-12.0); NRBC Flagged by Analyzer 0 % (0-5); Platelet Count 316 K/mm3 (150-450); RBC Distribution Width CV 12.5 % (11.6-14.6); RBC Distribution Width SD 42.0 fl (35.1-43.9); Red Blood Count 4.21 M/mm3 (4.2-5.4); White Blood Count 6.6 K/mm3 (4.4-11.0)
[2025-03-03 06:30] LABS: Anion Gap 9 (5-15); BUN 12 mg/dL (4-19); BUN/Creat Ratio 21.0 RATIO (10-20); Calcium,Total 8.9 mg/dL (7.6-11.0); Carbon Dioxide 26.4 mmol/L (21.0-32.0); Chloride 105 mmol/L (98-108); Estimated Creatinine Clearance 127.22 ml/min (50-250); Glucose 69 mg/dL (70-99); Potassium 3.6 mmol/L (3.3-5.1)
[2025-03-03] MEDS: Calcium Carb/Vitamin D 1 TABLET Tablet PO (07:41)
[2025-03-03] MEDS: Aspirin E.C. 81 MG Tablet PO (07:41)
--- NOTE | 2025-03-03 13:13 | PCM.PROGNOTE ---
Subjective Subjective Patient seen and examined with her nurse by her bedside. She is complaining of heartburn. Her blood sugar was running low this morning so the Lantus was held. Review of systems is negative. She is still awaiting placement. Objective Data Objective Data Vital Signs: Vital Signs Temp Pulse Resp BP Pulse Ox O2 Del Method O2 Flow Rate 98.4 F 83 18 109/72 96 Room Air 2 03/03/25 09:56 03/03/25 09:56 03/03/25 09:56 03/03/25 09:56 03/03/25 09:56 03/03/25 09:56 03/01/25 13:20 FiO2 79 02/28/25 15:48 Oxygen Flow Rate (L/min) 2 Oxygen Delivery Method Room Air Weight: 211 lb 13.828 oz Body Mass Index (BMI) 32.2 Intake & Output: Intake and Output for Last 24 Hours 03/01/25 03/02/25 03/03/25 23:59 23:59 23:59 Intake Total 942.53 / 942.53 760 / 1120 840 / 840 Output Total 900 / 900 Balance 42.53 / 42.53 760 / 1120 840 / 840 Lab / Micro Data 03/03/25 05:20 03/03/25 05:20 Labs: Laboratory Results - last 24 hr 03/02/25 16:21: POC Glucose 158 H 03/02/25 21:48: POC Glucose 141 H 03/03/25 05:20: WBC 6.6, RBC 4.21, Hgb 12.9, Hct 39.0, MCV 92.6, MCH 30.6, MCHC 33.1, RDW Std Deviation 42.0, RDW Coeff of Brett 12.5, Plt Count 316, MPV 10.0, Immature Gran % (Auto) 0.500, Neut % (Auto) 40.7 L, Lymph % (Auto) 44.0 H, [place] % (Auto) 10.6 H, Eos % (Auto) 3.0, Baso % (Auto) 1.2 H, Absolute Neuts (auto) 2.7, Absolute Lymphs (auto) 2.90, Nucleated RBC % 0, Sodium 141, Potassium 3.6, Chloride 105, Carbon Dioxide 26.4, Anion Gap 9, BUN 12, Creatinine 0.57 L, Estim Creat Clear Calc 127.22, Est GFR (MDRD) Non-Af 104, BUN/Creatinine Ratio 21.0 H, Glucose 69 L, Calcium 8.9 03/03/25 07:33: POC Glucose 76 03/03/25 11:28: POC Glucose 170 H Micro: Microbiology 03/01/25 01:20 Sputum, Expectorated/Coughed Gram Stain - Final 03/01/25 01:20 Sputum, Expectorated/Coughed Respiratory Culture - Final Mixed normal respiratory mary ann. No Streptococcus pneumoniae, beta-hemolytic Streptococcus or Staphylococcus aureus isolated. 02/28/25 07:35 Blood Culture (Wb) - Anticubital Right Blood Culture - Preliminary No growth in 48 hours. 02/28/25 07:39 Blood Culture (Wb) - Left Hand Blood Culture - Preliminary No growth in 48 hours. 02/28/25 11:55 Urine, Clean Catch Legionella Antigen - Final 02/28/25 11:55 Urine, Clean Catch Streptococcus pneumoniae Antigen (M - Final 02/28/25 05:21 Mucosa - Nose SARS-CoV-2, Influenza & RSV (PCR) - Final Physical Exam Const alert, oriented x3 and no apparent distress General Appearance: cooperative HEENT normocephalic, head/scalp atraumatic, hearing grossly normal bilaterally and moist oral mucous membranes Eyes PERRL, EOMs intact bilaterally and conjunctivae normal Neck supple and no JVD Lymph Lymphatic: no lymphedema noted Resp Resp Narrative: moderately diminished breath sounds bilaterally, no wheezes or crackles. On room air. Cardio regular rate, regular rhythm, S1 normal heart sound, S2 normal heart sound and no murmurs GI normal to inspection, nondistended, normoactive bowel sounds, soft to palpation and non-tender Extremity normal to inspection, full ROM, normal capillary refill and no clubbing, cyanosis or edema General Extremity: no tenderness to palpation of joints or extremities Skin General Skin Exam: no breakdown Neuro oriented x3, CN's II-XII intact bilaterally and moves all extremities Sensorium / Orientation: awake and alert Motor Exam: strength 5/5 throughout Psych thought process normal, cooperative and affect normal Appearance: appropriate Assessment & Plan Assessment/Plan (1) Hypoxia: PLAN: Plan #Acute hypoxic respiratory failure due to acute heart failure with reduced ejection fraction Patient was very short of breath on admission and required Airvo. Now off airvo She was admitted with a similar complaints just about a week ago. At that time she was found to have non-STEMI. Plan was for her to have cardiac cath. However she could not lay flat after she was taken to the [facility]ilities Maintenance [facility] so cardiac cath was aborted Now presents with the above mentioned complaints. on lasix IV Cardiology on board. Had cardiac cath today which showed severe triple-vessel disease. Recommendation is therefore for transfer to [facility] For evaluation for CT surgery. Monitor intake and output. Fluid restriction to 1500 cc daily. Also on Jardiance. Breathing treatments bronchodilators. Titrate oxygen to maintain saturation above 90%. 2D echo from 02/23/2025 during her previous admission showed EF of 35% with stage II diastolic dysfunction and moderate global hypokinesis of the left ventricle as well as mild concentric left ventricular hypertrophy. awaiting transfer to [facility] #History of CAD: As stated was admitted with non-STEMI last time. On aspirin and carvedilol as well as high intensity statin. Also on lisinopril #Type 2 diabetes mellitus, hold metformin. On Lantus 112 units daily. Also on Jardiance. Insulin sliding scale. Accu-Cheks ACHS. Hold Trulicity also. #History of back pain: CT during previous admission showed lumbar spine scoliosis and degeneration mainly of L5-S1. PT OT on board. Fall precautions. #Benign essential hypertension: On carvedilol and lisinopril # Hyperlipidemia: On statin DVT prophylaxis: Lovenox CODE STATUS: Full code Disposition: Awaiting transfer to [facility] pending bed availability Charges/Coding Visit Charges Inpatient E&M: 20287 Subs Hosp L2
[2025-03-03] MEDS: Magnesium Citrate 300 ML 150 ML PO (17:21)
[2025-03-04 03:15] VITALS: BP 111/65; PULSE 88; RESP 16; TEMP 36.8; O2SAT 94
[2025-03-04 03:41] VITALS: BMI 31.5
[2025-03-04 08:03] VITALS: BP 106/77; PULSE 78; RESP 14; TEMP 36.6; O2SAT 100
[2025-03-04] MEDS: Calcium Carb/Vitamin D 1 TABLET Tablet PO (08:09)
[2025-03-04] MEDS: Aspirin E.C. 81 MG Tablet PO (08:09)
[2025-03-04 08:35] LABS: Anion Gap 11 (5-15); BUN 12 mg/dL (4-19); BUN/Creat Ratio 19.6 RATIO (10-20); Calcium,Total 9.3 mg/dL (7.6-11.0); Carbon Dioxide 24.9 mmol/L (21.0-32.0); Chloride 104 mmol/L (98-108); Estimated Creatinine Clearance 119.54 ml/min (50-250); Glucose 120 mg/dL (70-99); Potassium 3.7 mmol/L (3.3-5.1)
[2025-03-04 08:42] LABS: Hematocrit 39.4 % (37-47); Hemoglobin 13.4 g/dL (12.0-15.0); Immature Granulocytes Count 0.030 X10^3/uL (0.0-0.0); Mean Corp Hgb Conc 34.0 g/dL (32-36); Mean Corpuscular Volume 90.4 fL (81-99); Mean Platelet Vol. 9.8 fl (6.2-12.0); NRBC Flagged by Analyzer 0 % (0-5); Platelet Count 334 K/mm3 (150-450); RBC Distribution Width CV 12.3 % (11.6-14.6); RBC Distribution Width SD 40.3 fl (35.1-43.9); Red Blood Count 4.36 M/mm3 (4.2-5.4); White Blood Count 6.4 K/mm3 (4.4-11.0)
[2025-03-04 14:37] VITALS: BP 121/72; PULSE 82; RESP 12; TEMP 36.5; O2SAT 98
--- NOTE | 2025-03-04 16:21 | PCM.PN.HOSP ---
Reason for Visit Chief Complaint: shortness of breath Subjective Subjective Saw patient at bedside this morning. Patient was ambulating around the room when I saw her. She notes that she has been feeling improved today compared to previous days. Denies any chest pain or shortness of breath at rest. No other acute concerns this morning. Objective Data Objective Data Vital Signs: Vital Signs Temp Pulse Resp BP Pulse Ox O2 Del Method O2 Flow Rate 97.7 F L 82 12 121/72 H 98 Room Air 2 03/04/25 14:37 03/04/25 14:37 03/04/25 14:37 03/04/25 14:37 03/04/25 14:37 03/04/25 14:37 03/01/25 13:20 FiO2 79 02/28/25 15:48 Oxygen Flow Rate (L/min) 2 Oxygen Delivery Method Room Air Weight: 94 kg Body Mass Index (BMI) 31.5 Intake & Output: Intake and Output for Last 24 Hours 03/02/25 03/03/25 03/04/25 23:59 23:59 23:59 Intake Total 760 / 1120 1320 / 1320 350 / 350 Balance 760 / 1120 1320 / 1320 350 / 350 Lab / Micro Data 03/04/25 07:28 03/04/25 07:28 Labs: Laboratory Results - last 24 hr 03/03/25 16:36: POC Glucose 229 H 03/03/25 22:12: POC Glucose 154 H 03/04/25 07:28: WBC 6.4, RBC 4.36, Hgb 13.4, Hct 39.4, MCV 90.4, MCH 30.7, MCHC 34.0, RDW Std Deviation 40.3, RDW Coeff of Brett 12.3, Plt Count 334, MPV 9.8, Immature Gran % (Auto) 0.500, Neut % (Auto) 40.3 L, Lymph % (Auto) 43.9 H, [place] % (Auto) 11.3 H, Eos % (Auto) 3.1, Baso % (Auto) 0.9, Absolute Neuts (auto) 2.6, Absolute Lymphs (auto) 2.79, Nucleated RBC % 0, Sodium 140, Potassium 3.7, Chloride 104, Carbon Dioxide 24.9, Anion Gap 11, BUN 12, Creatinine 0.60 L, Estim Creat Clear Calc 119.54, Est GFR (MDRD) Non-Af 103, BUN/Creatinine Ratio 19.6, Glucose 120 H, Calcium 9.3 03/04/25 08:06: POC Glucose 106 03/04/25 11:53: POC Glucose 148 H Micro: Microbiology 03/01/25 01:20 Sputum, Expectorated/Coughed Gram Stain - Final 03/01/25 01:20 Sputum, Expectorated/Coughed Respiratory Culture - Final Mixed normal respiratory mary ann. No Streptococcus pneumoniae, beta-hemolytic Streptococcus or Staphylococcus aureus isolated. 02/28/25 07:35 Blood Culture (Wb) - Anticubital Right Blood Culture - Preliminary No growth in 48 hours. 02/28/25 07:39 Blood Culture (Wb) - Left Hand Blood Culture - Preliminary No growth in 48 hours. 02/28/25 11:55 Urine, Clean Catch Legionella Antigen - Final 02/28/25 11:55 Urine, Clean Catch Streptococcus pneumoniae Antigen (M - Final 02/28/25 05:21 Mucosa - Nose SARS-CoV-2, Influenza & RSV (PCR) - Final Physical Exam Const alert, oriented x3 and no apparent distress Constitutional Narrative: Pleasant upper middle-aged female, class I obesity, sitting comfortably at edge of the bed, conversing normally, in no acute distress. General Appearance: cooperative and comfortable HEENT normocephalic, head/scalp atraumatic, hearing grossly normal bilaterally, nasal mucous membranes and turbinates normal and moist oral mucous membranes Eyes PERRL, EOMs intact bilaterally and conjunctivae normal Neck full ROM Chest inspection of chest normal Resp normal respiratory effort, normal air movement, no use of accessory muscles and clear to auscultation bilaterally Cardio regular rate, regular rhythm, no murmurs and peripheral pulses 2+ throughout GI normal to inspection, nondistended, normoactive bowel sounds, soft to palpation, non-tender and non-distended Back/Spine normal ROM Extremity normal to inspection, full ROM and no pedal edema Skin no rashes or lesions noted Psych mental status grossly normal Assessment & Plan Assessment/Plan (1) NSTEMI, initial episode of care: PLAN: Plan Patient is a 59-year-old female who presented to [facility] ED on 02/28/2025 with shortness of breath and chest discomfort. 1. NSTEMI due to severe triple-vessel disease with acute HFrEF; history of CAD, hypertension, hyperlipidemia ? Cardiology following. Initially hospitalized from 02/22 to 02/25 with new onset acute CHF and shortness of breath. Echo on 02/23 showed EF 35%, stage II diastolic dysfunction, moderate global hypokinesis of the left ventricle. Plan was for left heart cath with patient could not lay flat, so cath was aborted. She presented again on 02/28 with worsening shortness of breath, chest discomfort and respiratory failure as below. Very good diuresis on IV Lasix. Left heart cath on 03/01 showed severe triple-vessel disease. Plan is for transfer to [facility] for CABG evaluation, awaiting bed placement. Currently stable on room air at rest and euvolemic. Continue aspirin, statin, Coreg, lisinopril, Jardiance and p.o. Lasix. 2. Acute hypoxic respiratory failure, resolved ? Severe hypoxia noted on admission requiring Airvo up to 60 L. CTA chest showed no PE, did show worsening bilateral ground glass opacities due to pulmonary edema as well as worsening bilateral pleural effusions. Secondary to volume overload due to HFrEF exacerbation as above. Significant improvement with IV diuresis. Weaned off supplemental oxygen by 03/04. Continue treatment as above. 3. Type 2 diabetes mellitus with diabetic neuropathy ? Significant home regimen of insulin degludec 112 units at night and Humalog 20 units with meals. Had hypoglycemic episode on 03/03, home regimen reduced. Continue Lantus 80 units at night and Humalog 15 units with meals plus sliding scale, adjust as needed. Continue home gabapentin. 4. Anxiety/depression ? Stable. Continue home fluoxetine. 5. GERD ? Continue home Pepcid. DVT prophylaxis: Lovenox CODE STATUS: Full code, verified Expected disposition: Transfer to [facility] Total clinical time spent by myself addressing the patient's medical issues, reviewing all the data, and collaborating with patient's care team: 35 minutes. Charges/Coding Visit Charges Inpatient E&M: 00916 Subs Hosp L2
[2025-03-04 19:00] VITALS: PULSE 88
[2025-03-04 21:27] VITALS: BP 110/65; PULSE 92; RESP 16; TEMP 36.4; O2SAT 97
[2025-03-05 03:25] VITALS: BMI 31.7
[2025-03-05 04:22] VITALS: BP 139/93; PULSE 86; RESP 18; TEMP 36.9; O2SAT 95
--- NOTE | 2025-03-05 04:23 | NURSING ---
TRANSPORT BEDSIDE TO TRANSPORT PT TO [facility]. BEDSIDE HANDOFF GIVEN TO MEDIC. REPORT CALLED TO ACCEPTING ABRAHAM JACKSON . PT VITALS STABLE ON ROOM AIR. BELONGINGS WITH PT. TRANSFER COMPLETE.
--- NOTE | 2025-03-05 18:04 | PCM.DC.SUM ---
Providers Date of Admission: 02/28/25 Date of Discharge: 03/05/25 Primary Care Physician: Dr. Jese Zheng, DO Consultations 02/28/25 09:25 Consult: Cardiology Routine Consulting Provider: Lion Goodman Reason for Consult: acute heart failure EMERGENT Consult: No Notified: Yes Date Notified: 02/28/25 Time Notified: 09:27 Method of Notification: Text 02/28/25 16:04 Consult: Reservoir Engineer / Pulmonary Medicine Routine Consulting Provider: Intensivists/Pulmonary Med Reason for Consult: acute hypoxic respiratory failure due to acute heart failure EMERGENT Consult: No MD Notified: Yes Date Notified: 02/28/25 Time Notified: 16:41 Method of Notification: Text Reason For Visit: sob Diagnosis Discharge Diagnosis (1) NSTEMI, initial episode of care: Status: Acute Code(s): I21.4 - Non-ST elevation (NSTEMI) myocardial infarction Medications at Discharge Home Medications albuterol sulfate 90 mcg/actuation aerosol inhaler 2 puff inhalation Q4H PRN PRN Wheezing 04/08/14 calcium 315 mg (as citrate)-vitamin D3 6.25 mcg (250 unit) tablet 1 tab PO DAILY 04/08/14 lisinopril 10 mg tablet 1 tab PO DAILY 04/07/17 magnesium citrate 150 ml PO Q6H PRN PRN Constipation #300 mL 01/22/19 albuterol sulfate 2.5 mg/3 mL (0.083 %) solution for nebulization 2.5 mg inhalation Q4H PRN shortness of breath or wheezing 05/11/19 alcohol swabs (BD Alcohol Swabs) See Rx Instructions topical .COMPLEX 05/11/19 aspirin 81 mg tablet,delayed release (Adult Low Dose Aspirin) 81 mg PO DAILY 05/11/19 atorvastatin 40 mg tablet 40 mg PO DAILY 05/11/19 blood sugar diagnostic (FreeStyle Lite Strips) #10 ea 05/11/19 blood-glucose meter (FreeStyle Lite Meter kit) #1 ea 05/11/19 famotidine 20 mg tablet 20 mg PO BID 05/11/19 insulin degludec 100 unit/mL (3 mL) subcutaneous pen (Tresiba FlexTouch U-100 insulin) 112 unit subcut Q24H 05/11/19 lancets 30 gauge (Unilet Super Thin Lancets) #25 ea 05/11/19 mupirocin 2 % topical ointment 1 applic topical BID 05/11/19 pen needle, diabetic 31 gauge x 3/16 (1st Tier Unifine Pentips) #30 ea 05/11/19 flash glucose sensor (FreeStyle Michi 14 Day Sensor kit) #2 ea 02/26/20 insulin aspart U-100 100 unit/mL (3 mL) subcutaneous pen (Novolog FlexPen U-100 Insulin aspart) 20 unit (0.2 mL) subcut TID #24 mL 04/05/20 metformin 1,000 mg tablet 1,000 mg PO BID diabetes 02/06/21 cyanocobalamin (vitamin B-12) 1,000 mcg tablet,extended release 2,000 mcg PO DAILY 02/22/25 dulaglutide 4.5 mg/0.5 mL subcutaneous pen injector (Trulicity) 4.5 mg subcut QWEEK 02/22/25 empagliflozin 10 mg tablet (Jardiance) 25 mg PO BREAKFAST 02/22/25 fluoxetine 20 mg capsule 20 mg PO DAILY 02/22/25 gabapentin 100 mg capsule 100 mg PO QHS 02/22/25 carvedilol 3.125 mg tablet 3.125 mg PO BIDCM #60 tabs 02/25/25 Hospital Course Operations None Procedures Cardiac catheterization, EKG and - (CTA chest ) Summary of Care Provided Minutes Spent on Discharge: 35 Hospital Course: Patient is a 59-year-old female who presented to [facility] ED on 02/28/2025 with shortness of breath and chest discomfort. Hospital course as noted below. Patient was transferred to [facility] for further management on 03/05. 1. NSTEMI due to severe triple-vessel disease with acute HFrEF; history of CAD, hypertension, hyperlipidemia ? Cardiology followed. Initially hospitalized from 02/22 to 02/25 with new onset acute CHF and shortness of breath. Echo on 02/23 showed EF 35%, stage II diastolic dysfunction, moderate global hypokinesis of the left ventricle. Plan was for left heart cath with patient could not lay flat, so cath was aborted. She presented again on 02/28 with worsening shortness of breath, chest discomfort and respiratory failure as below. Very good diuresis on IV Lasix. Left heart cath on 03/01 showed severe triple-vessel disease, and cardiology recommended transfer to tertiary center for CABG evaluation. Stable on room air at rest and euvolemic by day of discharge. Continue aspirin, statin, Coreg, lisinopril, Jardiance and p.o. Lasix. Transferred to [facility] for further management on 03/05. 2. Acute hypoxic respiratory failure, resolved ? Severe hypoxia noted on admission requiring Airvo up to 60 L. CTA chest showed no PE, did show worsening bilateral ground glass opacities due to pulmonary edema as well as worsening bilateral pleural effusions. Secondary to volume overload due to HFrEF exacerbation as above. Significant improvement with IV diuresis. Weaned off supplemental oxygen by 03/04. Continue treatment as above. 3. Type 2 diabetes mellitus with diabetic neuropathy ? Significant home regimen of insulin degludec 112 units at night and Humalog 20 units with meals. Had hypoglycemic episode on 03/03, home regimen reduced. Continue Lantus 80 units at night and Humalog 15 units with meals plus sliding scale, adjust as needed. Continue home gabapentin. 4. Anxiety/depression ? Stable. Continue home fluoxetine. 5. GERD ? Continue home Pepcid. Total clinical time spent by myself addressing the patient's medical issues, reviewing all the data, and collaborating with patient's care team: 35 minutes. Physical Exam Const alert, oriented x3 and no apparent distress Constitutional Narrative: Pleasant upper middle-aged female, class I obesity, sitting comfortably at edge of the bed, conversing normally, in no acute distress. General Appearance: cooperative and comfortable HEENT normocephalic, head/scalp atraumatic, hearing grossly normal bilaterally, nasal mucous membranes and turbinates normal and moist oral mucous membranes Eyes PERRL, EOMs intact bilaterally and conjunctivae normal Neck full ROM Chest inspection of chest normal Resp normal respiratory effort, normal air movement, no use of accessory muscles and clear to auscultation bilaterally Cardio regular rate, regular rhythm, no murmurs and peripheral pulses 2+ throughout GI normal to inspection, nondistended, normoactive bowel sounds, soft to palpation, non-tender and non-distended Back/Spine normal ROM Extremity normal to inspection, full ROM and no pedal edema Skin no rashes or lesions noted Psych mental status grossly normal Weight / BMI Weight Weight: 94.6 kg Body Mass Index (BMI) 31.7 ABG / Lab / Microbiology Data 03/04/25 07:28 03/04/25 07:28 Laboratory: Laboratory Results - last 24 hr 03/04/25 21:31: POC Glucose 169 H Microbiology: Microbiology 02/28/25 07:35 Blood Culture (Wb) - Anticubital Right Blood Culture - Final No growth in 5 days. 02/28/25 07:39 Blood Culture (Wb) - Left Hand Blood Culture - Final No growth in 5 days. 03/01/25 01:20 Sputum, Expectorated/Coughed Gram Stain - Final 03/01/25 01:20 Sputum, Expectorated/Coughed Respiratory Culture - Final Mixed normal respiratory mary ann. No Streptococcus pneumoniae, beta-hemolytic Streptococcus or Staphylococcus aureus isolated. 02/28/25 11:55 Urine, Clean Catch Legionella Antigen - Final 02/28/25 11:55 Urine, Clean Catch Streptococcus pneumoniae Antigen (M - Final 02/28/25 05:21 Mucosa - Nose SARS-CoV-2, Influenza & RSV (PCR) - Final D/C Instructions DC O2, CPAP, BIPAP Needs Home O2 Discharge instructions: No Meaningful Use Info Meaningful Use Meaningful Use Diagnoses (Choose all that apply): CHF CHF JANNIE/ARB ordered at discharge?: Yes Documented LVEF (%): 35 Discharge Plan Admission Admit Date/Time: 02/28/25 07:40 Primary Reason for Your Visit: Shortness of breath Attending Provider: Harjinder Truong Primary Care Provider: Jese Zheng Consulting Providers: Lion Goodman; Clarissa Herrera Discharge Orders/Prescriptions Prescriptions: Continued albuterol sulfate 2.5 mg /3 mL (0.083 %) solution for nebulization 2.5 mg INHALATION Q4H PRN (Reason: shortness of breath or wheezing) alcohol swabs [BD Alcohol Swabs] Pads, Medicated See Rx Instructions TOPICAL .COMPLEX Rx Instructions: TOPICAL use 4-5 x qd to check BG and with insulin injections; aspirin [Adult Low Dose Aspirin] 81 mg tablet,delayed release (DR/EC) 81 mg PO DAILY atorvastatin 40 mg tablet 40 mg PO DAILY (DME) FreeStyle Lite Strips Strip See Rx Instructions .ROUTE .MEDSUPPLY Qty: 10 Rx Instructions: use to check BG tid (DME) blood-glucose meter [FreeStyle Lite Meter] Kit See Rx Instructions .ROUTE .MEDSUPPLY Qty: 1 Rx Instructions: As directed (DME) pen needle, diabetic [1st Tier Unifine Pentips] 31 gauge x 3/16 needle See Rx Instructions .ROUTE .MEDSUPPLY Qty: 30 Rx Instructions: use 4 x qd to inject insulin famotidine 20 mg tablet 20 mg PO BID insulin degludec [Tresiba FlexTouch U-100] 100 unit/mL (3 mL) insulin pen 112 unit SC Q24H mupirocin 2 % ointment 1 applic TOPICAL BID (DME) lancets [Unilet Super Thin Lancets] 30 gauge misc See Rx Instructions .ROUTE .MEDSUPPLY Qty: 25 Rx Instructions: use to check BG 1 x qd (DME) FreeStyle Michi 14 Day Sensor Kit See Rx Instructions .ROUTE .MEDSUPPLY Qty: 2 6RF Rx Instructions: As directed metformin 1,000 mg tablet 1,000 mg PO BID albuterol sulfate 1 INHALER inhaler 2 puff inhalation Q4H PRN PRN (Reason: Wheezing) Patient Comments: ASTHMA calcium citrate-vitamin D3 1 EACH tablet 1 tab PO DAILY Patient Comments: SUPPLEMENT lisinopril 10 MG tablet 1 tab PO DAILY Patient Comments: TAKE 1 TABLET EVERY DAY magnesium citrate 300 ML solution 150 ml PO Q6H PRN PRN (Reason: Constipation) Qty: 300 0RF cyanocobalamin (vitamin B-12) 1,000 mcg tablet extended release 2,000 mcg PO DAILY Jardiance 10 mg tablet 25 mg PO BREAKFAST Trulicity 4.5 mg/0.5 mL pen injector 4.5 mg subcut QWEEK Patient Comments: SUNDAYS fluoxetine 20 mg capsule 20 mg PO DAILY gabapentin 100 mg capsule 100 mg PO QHS carvedilol 3.125 mg Tablet 3.125 mg PO BIDCM Qty: 60 2RF Novolog FlexPen U-100 Insulin 100 unit/mL (3 mL) insulin pen 20 unit SC TID MDD 80 Qty: 24 4RF Rx Instructions: plus sliding scale Referrals / Follow Up: Jese Zheng DO [Primary Care Provider] - Disposition Disposition (needs filled in before D/C Order can be placed): Acute Care Hospital Charges/Coding Visit Charges Inpatient E&M: 56580 Disch Hosp >30min
== END 2025-03-05 04:15 | disposition short-term general hospital (02) | DRG 280 ==
LOC: ED 07:38 → PCU 08:24
PROVIDERS: Family Medicine; Internal Medicine Interventional Cardiology; Admitting Provider Student in an Organized Health Care Education/Training Program; Emergency Provider Emergency Medicine; PCP Student in an Organized Health Care Education/Training Program; Visit Provider Hospitalist
DX: I21.4 Non-ST elevation (NSTEMI) myocardial infarction (principal); J96.01 Acute respiratory failure with hypoxia; I50.21 Acute systolic (congestive) heart failure; E11.65 Type 2 diabetes mellitus with hyperglycemia; I11.0 Hypertensive heart disease with heart failure; J45.909 Unspecified asthma, uncomplicated; F32.A Depression, unspecified; E66.811 Obesity, class 1; E11.42 Type 2 diabetes mellitus with diabetic polyneuropathy; E78.5 Hyperlipidemia, unspecified; I25.10 Atherosclerotic heart disease of native coronary artery without angina pectoris; Z79.4 Long term (current) use of insulin; M41.86 Other forms of scoliosis, lumbar region; K21.9 Gastro-esophageal reflux disease without esophagitis; F41.9 Anxiety disorder, unspecified; Z79.82 Long term (current) use of aspirin; Z79.84 Long term (current) use of oral hypoglycemic drugs; Z79.85 Long-term (current) use of injectable non-insulin antidiabetic drugs; Z87.891 Personal history of nicotine dependence; Z68.31 Body mass index [BMI] 31.0-31.9, adult
CPT/HCPCS: 36415; 36600; 71275; 80048; 82803; 82962; 83735; 83880; 84484; 85025; 85610; 85730; 87040; 87070; 87205; 87449; 87631; 93005; 93454; 94640; 94660; 97162; 97165; 99152; 99153; 99285; Q9967; A4216; C1769; C1894; J1938; J2405